=== PATIENT | male | born 1940 | race Caucasian/White ===

== ENCOUNTER 2019-01-11 00:08 | Emergency (ER) | payer OTHER ==
--- OUTSIDE RECORDS SUMMARY | 2019-01-11 00:10 | XMS REPORT ---
:1940 [facility] Address [address] [place] [address] [address] [place] [address] Care Team Providers Name Role Phone Unavailable Unavailable Unavailable Problems This patient has no known problems. Allergies, Adverse Reactions, Alerts This patient has no known allergies or adverse reactions. Medications This patient has no known medications.
[2019-01-11 01:26] LABS: Basophils % 0.2 % (0-1.3); Hematocrit 38.6 % (39.6-49.0); MPV 9.5 fL (7.6-11.3); RBC Red Blood Cell Count 4.26 M/uL (4.33-5.43)
[2019-01-11 01:28] LABS: Urine Bacteria <20 /HPF (NONE SEEN); Urine Culture Reflex Order REFLEXED; Urine RBC <5 /HPF (NONE SEEN)
[2019-01-11 01:30] LABS: Urine Blood 1+ (NEG); Urine Glucose NEGATIVE (NEG); Urine Protein NEGATIVE (NEG); Urine Specific Gravity <1.005 (1.005-1.030)
[2019-01-11 01:45] LABS: Albumin 3.4 g/dL (3.4-5.0); Bilirubin Direct 0.1 mg/dL (0-0.2); Bilirubin Total 0.5 mg/dL (0.2-1.0); Protein, Total 6.7 g/dL (6.4-8.2)
[2019-01-11] MEDS ORDERED: ONDANSETRON 4 MG/2 ML VIAL ONE (02:10)
[2019-01-11] MEDS ORDERED: MORPHINE 4 MG/ML SYR ONE (02:10)
[2019-01-11] MEDS ORDERED: NA CHLORIDE 0.9% 1,000 ML ONE (02:11)
--- NOTE | 2019-01-11 03:11 | EDPHYS ---
Physician Documentation [facility] Name: Dave Moreland Age: 79 yrs Sex: Male : 1940 Arrival Date: 01/11/2019 Time: 00:10 Bed 14 Private MD: ED Physician Pedro Levin HPI: 01/11 04:48 This 79 yrs old Unknown Male presents to ER via EMS with complaints of Abdominal Pain. tw4 04:48 The patient presents with abdominal pain in the left lower quadrant. Onset: The tw4 symptoms/episode began/occurred today. The symptoms do not radiate. Associated signs and symptoms: Pertinent positives:. 04:49 Associated signs and symptoms: Pertinent positives: dysuria. The symptoms are described tw4 as burning. Modifying factors: The symptoms are alleviated by remaining still, the symptoms are aggravated by movement, pressure. Severity of pain: At its worst the pain was moderate in the emergency department the pain is unchanged. The patient has not experienced similar symptoms in the past. Historical: - Allergies: 02:30 Codeine; ch - Home Meds: 00:25 aspirin 81 mg Oral chew 1 tab once daily [Active]; clopidogrel 75 mg oral tab 1 tab ch once daily [Active]; finasteride 5 mg oral tab 1 tab once daily [Active]; gabapentin 300 mg oral cap 1 cap 3 times per day [Active]; isosorbide mononitrate 60 mg Oral Tb24 1 tab once daily [Active]; lisinopril 20 mg Oral tab 1 tab once daily [Active]; metformin 500 mg Oral tab 1 tab 2 times per day [Active]; pantoprazole 40 mg oral TbEC 1 tab once daily [Active]; tamsulosin 0.4 mg oral cp24 1 cap once daily [Active]; - PMHx: 00:25 Diabetes - NIDDM; Hypertension; Hyperlipidemia; GERD; prostate problems; ch 02:30 Myocardial infarction; ch - PSHx: 02:30 Heart stents; Hernia repair; ch 02:32 Cholecystectomy; Tonsillectomy; L hand tendon release; neck/back sx; ch - Immunization history:: Adult Immunizations up to date. - Social history:: Smoking status: Patient/guardian denies using tobacco. - Ebola Screening: : Patient negative for fever greater than or equal to 101.5 degrees Fahrenheit, and additional compatible Ebola Virus Disease symptoms Patient denies exposure to infectious person Patient denies travel to an Ebola-affected area in the 21 days before illness onset No symptoms or risks identified at this time. ROS: 04:49 Constitutional: Negative for fever, chills, and weight loss, Eyes: Negative for injury, tw4 pain, redness, and discharge, Cardiovascular: Negative for chest pain, palpitations, and edema, Respiratory: Negative for shortness of breath, cough, wheezing, and pleuritic chest pain, Abdomen/GI: Negative for abdominal pain, nausea, vomiting, diarrhea, and constipation, Back: Negative for injury and pain. 04:49 MS/Extremity: Negative for injury and deformity, Skin: Negative for injury, rash, and discoloration. 04:49 : Positive for urinary symptoms, burning with urination, difficulty urinating. Exam: 04:49 Constitutional: This is a well developed, well nourished patient who is awake, alert, tw4 and in no acute distress. Head/Face: Normocephalic, atraumatic. Chest/axilla: Normal chest wall appearance and motion. Nontender with no deformity. No lesions are appreciated. Cardiovascular: Regular rate and rhythm with a normal S1 and S2. No gallops, murmurs, or rubs. Normal PMI, no JVD. No pulse deficits. Respiratory: Lungs have equal breath sounds bilaterally, clear to auscultation and percussion. No rales, rhonchi or wheezes noted. No increased work of breathing, no retractions or nasal flaring. Male : Normal genitalia with no discharge or lesions. Skin: Warm, dry with normal turgor. Normal color with no rashes, no lesions, and no evidence of cellulitis. MS/ Extremity: Pulses equal, no cyanosis. Neurovascular intact. Full, normal range of motion. 04:49 Abdomen/GI: Inspection: abdomen appears normal, Bowel sounds: diminished, in all quadrants, Palpation: moderate abdominal tenderness, in the left lower quadrant. Vital Signs: 00:25 BP 138 / 82; Pulse 83; Resp 22; Temp 100.1(O); Pulse Ox 100% on R/A; Weight 82.55 kg; ch Height 5 ft. 8 in. (172.72 cm); Pain 8/10; 01:20 BP 119 / 63; Pulse 69; Resp 20; Temp 98.6(O); Pulse Ox 99% on R/A; Pain 5/10; ch 02:32 BP 125 / 75; Pulse 74; Resp 16; Temp 98.8; Pulse Ox 99% on R/A; Pain 7/10; ch 03:25 Pulse 70; Resp 16; Temp 99(O); Pulse Ox 98% on R/A; Pain 2/10; ch 03:29 BP 118 / 64; ch 00:25 Body Mass Index 27.67 (82.55 kg, 172.72 cm) ch MDM: 00:42 Patient medically screened. tw4 04:49 Differential diagnosis: AAA, pancreatitis, Prostatitis, Pyelonephritis. Data reviewed: tw4 vital signs, nurses notes. Data interpreted: Pulse oximetry: Interpretation: normal. Counseling: I had a detailed discussion with the patient and/or guardian regarding: the historical points, exam findings, and any diagnostic results supporting the discharge/admit diagnosis, lab results. Medication response: morphine markedly relieved the patient's pain. Symptoms have improved. Response to treatment: the patient's symptoms have markedly improved after treatment, and as a result, I will discharge patient. Special discussion: I discussed with the patient/guardian in detail that at this point there is no indication for admission to the hospital. It is understood, however, that if the symptoms persist or worsen the patient needs to return immediately for re-evaluation. 01/11 00:39 Order name: Basic Metabolic Panel [facility] 01/11 00:39 Order name: CBC with Diff 01/11 00:39 Order name: Creatinine for Radiology 01/11 00:39 Order name: Hepatic Function tw 01/11 00:39 Order name: Lipase tw 01/11 00:39 Order name: Urine Microscopic Only [facility] 01/11 00:40 Order name: Basic Metabolic Panel [facility] 01/11 01:08 Order name: Urine Dipstick--Ancillary (enter results) [facility] 01/11 01:11 Order name: CT Abd/Pelvis - IV Contrast Only [facility] 01/11 01:31 Order name: Urine Culture [facility] 01/11 00:39 Order name: IV Saline Lock; Complete Time: 02:28 [facility] 01/11 00:39 Order name: Labs collected and sent; Complete Time: 02:28 [facility] 01/11 00:39 Order name: Urine Dipstick-Ancillary (obtain specimen); Complete Time: 02:28 tw4 Administered Medications: 01:40 Drug: NS 0.9% 1000 ml Route: IV; Rate: 125 ml/hr; Site: right forearm; ch 03:38 Follow up: IV Status: Completed infusion; IV Intake: 250ml ch 01:40 Drug: morphine 4 mg Route: IVP; Site: right forearm; 03:22 Follow up: Response: No adverse reaction; Marked relief of symptoms ch 01:40 Drug: Zofran 4 mg Route: IVP; Site: right forearm; ch 03:22 Follow up: Response: No adverse reaction; Marked relief of symptoms ch 03:15 Drug: Rocephin - (cefTRIAXone) 1 grams Route: IVPB; Infused Over: 30 mins; Site: right ch forearm; 03:48 Follow up: IV Status: Completed infusion; IV Intake: 50ml ch 03:38 Drug: LevaQUIN 500 mg Route: PO; 03:48 Follow up: Response: No adverse reaction Disposition: 01/11/19 03:09 Discharged to Home. Impression: Urinary tract infection, site not specified. - Condition is Stable. - Discharge Instructions: Urinary Tract Infection, Adult, [id number]. - Prescriptions for Levaquin 500 mg Oral Tablet - take 1 tablet by ORAL route once daily for 7 days; 7 tablet. - Medication Reconciliation Form, Thank You Letter, Antibiotic Education, Prescription Opioid Use form. - Follow up: Private Physician; When: Today; Reason: If symptoms return, Recheck today's complaints, Continuance of care. - Problem is new. - Symptoms have improved. Signatures: Dispatcher [employer] EDJennifer Roberson RN RN Dave Nagel RN RN jb4 Pedro Levin MD MD tw4 Corrections: (The following items were deleted from the chart) 04:04 03:09 01/11/2019 03:09 Discharged to Home. Impression: Urinary tract infection, site jb4 not specified. Condition is Stable. Forms are Medication Reconciliation Form, Thank You Letter, Antibiotic Education, Prescription Opioid Use. Follow up: Private Physician; When: Today; Reason: If symptoms return, Recheck today's complaints, Continuance of care. Problem is new. Symptoms have improved. tw4
--- NOTE | 2019-01-11 03:11 | ER ---
Nurse's Notes [facility] Name: Dave Moreland Age: 79 yrs Sex: Male : 1940 Arrival Date: 01/11/2019 Time: 00:10 Bed 14 Private MD: Diagnosis: Urinary tract infection, site not specified Presentation: 01/11 00:19 Presenting complaint: Patient states: lower abdominal pain for the past 2-3 days, ch states it has been getting worse. fever today, burning with urination. states he was acting out of his head. Transition of care: patient was not received from another setting of care. Onset of symptoms was January 08, 2019. Risk Assessment: Do you want to hurt yourself or someone else? Patient reports no desire to harm self or others. Initial Sepsis Screen: Does the patient meet any 2 criteria? Altered Mental Status. No. Patient's initial sepsis screen is negative. Does the patient have a suspected source of infection? Yes: Dysuria/Frequency/Urgency/UTI. Care prior to arrival: Medication(s) given: Tylenol, 650 mg, \T\ 2100. 00:19 Method Of Arrival: EMS: [facility] 00:19 Acuity: CLARK 3 ch Triage Assessment: 00:25 General: Appears in no apparent distress. comfortable, Behavior is calm, cooperative, ch appropriate for age. Pain: Complains of pain in right lower quadrant and left lower quadrant Pain currently is 8 out of 10 on a pain scale. GI: Abdomen is round non-distended, Bowel sounds present X 4 quads. Abd is soft X 4 quads Abdomen is tender to palpation in right lower quadrant and left lower quadrant. Derm: Skin is fragile, Skin is dry, Skin is pale. 02:32 Pain:. Neuro: Level of Consciousness is awake, alert, obeys commands, Oriented to person, place, time, situation. Cardiovascular: No deficits noted. Respiratory: Airway is patent Respiratory effort is even, unlabored, Breath sounds are clear bilaterally. Derm: Skin is pink, warm \T\ dry. Historical: - Allergies: 02:30 Codeine; ch - Home Meds: 00:25 aspirin 81 mg Oral chew 1 tab once daily [Active]; clopidogrel 75 mg oral tab 1 tab ch once daily [Active]; finasteride 5 mg oral tab 1 tab once daily [Active]; gabapentin 300 mg oral cap 1 cap 3 times per day [Active]; isosorbide mononitrate 60 mg Oral Tb24 1 tab once daily [Active]; lisinopril 20 mg Oral tab 1 tab once daily [Active]; metformin 500 mg Oral tab 1 tab 2 times per day [Active]; pantoprazole 40 mg oral TbEC 1 tab once daily [Active]; tamsulosin 0.4 mg oral cp24 1 cap once daily [Active]; - PMHx: 00:25 Diabetes - NIDDM; Hypertension; Hyperlipidemia; GERD; prostate problems; ch 02:30 Myocardial infarction; ch - PSHx: 02:30 Heart stents; Hernia repair; 02:32 Cholecystectomy; Tonsillectomy; L hand tendon release; neck/back sx; - Immunization history:: Adult Immunizations up to date. - Social history:: Smoking status: Patient/guardian denies using tobacco. - Ebola Screening: : Patient negative for fever greater than or equal to 101.5 degrees Fahrenheit, and additional compatible Ebola Virus Disease symptoms Patient denies exposure to infectious person Patient denies travel to an Ebola-affected area in the 21 days before illness onset No symptoms or risks identified at this time. Screenin:00 Abuse screen: Denies threats or abuse. Denies injuries from another. Nutritional screening: No deficits noted. Tuberculosis screening: No symptoms or risk factors identified. Fall Risk None identified. Assessment: 01:20 Reassessment: Patient appears in no apparent distress at this time. Patient and/or family updated on plan of care and expected duration. Pain level reassessed. Patient is alert, oriented x 3, equal unlabored respirations, skin warm/dry/pink. Patient states feeling better. 02:20 Reassessment: Patient appears in no apparent distress at this time. No changes from previously documented assessment. awaiting results. 03:24 Reassessment: Patient appears in no apparent distress at this time. Patient and/or family updated on plan of care and expected duration. Pain level reassessed. Patient is alert, oriented x 3, equal unlabored respirations, skin warm/dry/pink. Patient states feeling better. Patient states symptoms have improved. 03:28 Reassessment: awaiting pt IV antibiotics to finish prior to dispo. 03:49 Reassessment: Patient appears in no apparent distress at this time. Patient and/or ch family updated on plan of care and expected duration. Pain level reassessed. Patient is alert, oriented x 3, equal unlabored respirations, skin warm/dry/pink. Patient states feeling better. Patient states symptoms have improved. Vital Signs: 00:25 BP 138 / 82; Pulse 83; Resp 22; Temp 100.1(O); Pulse Ox 100% on R/A; Weight 82.55 kg; ch Height 5 ft. 8 in. (172.72 cm); Pain 8/10; 01:20 BP 119 / 63; Pulse 69; Resp 20; Temp 98.6(O); Pulse Ox 99% on R/A; Pain 5/10; ch 02:32 BP 125 / 75; Pulse 74; Resp 16; Temp 98.8; Pulse Ox 99% on R/A; Pain 7/10; ch 03:25 Pulse 70; Resp 16; Temp 99(O); Pulse Ox 98% on R/A; Pain 2/10; ch 03:29 BP 118 / 64; ch 00:25 Body Mass Index 27.67 (82.55 kg, 172.72 cm) ED Course: 00:10 Patient arrived in ED. ds1 00:19 Jennifer Duran, EVETTE is Primary Nurse. ch 00:22 Triage completed. ch 00:25 Arm band placed on left wrist. Patient placed in an exam room, on a stretcher, on pulse oximetry. 00:42 Pedro Levin MD is Attending Physician. tw4 01:00 Patient has correct armband on for positive identification. Placed in gown. Bed in low ch position. Call light in reach. Side rails up X2. Adult w/ patient. Pulse ox on. NIBP on. Warm blanket given. Pillow given. 01:00 No provider procedures requiring assistance completed. Maintain EMS IV. Dressing ch intact. Good blood return noted. Site clean \T\ dry. Gauge \T\ site: 20 L FA. IV is patent, is intact, with fluids infusing freely. 01:40 Radiology exam delayed due to lab results not completed at this time. (BUN/Creatinine). kw1 02:28 CT Abd/Pelvis - IV Contrast Only Sent. ch 02:36 CT Abd/Pelvis - IV Contrast Only In Process Unspecified. EDMS 03:39 Urine Culture Sent. ch 03:49 No apparent distress. Resting quietly. ch 03:49 IV discontinued, intact, bleeding controlled, No redness/swelling at site. Pressure ch dressing applied. Administered Medications: 01:40 Drug: NS 0.9% 1000 ml Route: IV; Rate: 125 ml/hr; Site: right forearm; ch 03:38 Follow up: IV Status: Completed infusion; IV Intake: 250ml ch 01:40 Drug: morphine 4 mg Route: IVP; Site: right forearm; ch 03:22 Follow up: Response: No adverse reaction; Marked relief of symptoms ch 01:40 Drug: Zofran 4 mg Route: IVP; Site: right forearm; ch 03:22 Follow up: Response: No adverse reaction; Marked relief of symptoms ch 03:15 Drug: Rocephin - (cefTRIAXone) 1 grams Route: IVPB; Infused Over: 30 mins; Site: right ch forearm; 03:48 Follow up: IV Status: Completed infusion; IV Intake: 50ml ch 03:38 Drug: LevaQUIN 500 mg Route: PO; ch 03:48 Follow up: Response: No adverse reaction ch Intake: 03:38 IV: 250ml; Total: 250ml. ch 03:48 IV: 50ml; Total: 300ml. Outcome: 03:09 Discharge ordered by tw4 03:49 Discharged to home via wheelchair, with family. ch 03:49 Condition: stable 03:49 Discharge instructions given to patient, family, friend, Instructed on discharge instructions, follow up and referral plans. no drinking with medication, medication usage, Demonstrated understanding of instructions, follow-up care, medications, Prescriptions given X 1. 04:04 Patient left the ED. jb4 Signatures: Dispatcher [employer] EDMS Jennifer Duran, RN Maribel Kaur ch ds1 Dave Nagel RN RN jb4 Viola Ayers1 Pedro Levin MD MD tw4
[2019-01-11] MEDS ORDERED: NA CHLORIDE 0.9% 100 ML IV ONE (03:26)
[2019-01-11] MEDS ORDERED: CEFTRIAXONE/SWI 1gm 1 GM/10 ML SYR ONE (03:26)
[2019-01-11] MEDS ORDERED: levoFLOXacin 500 MG TAB ONE (03:49)
--- NOTE | 2019-01-11 11:21 | RAD REPORT ---
EXAM DESCRIPTION: CT - Abdomen Pelvis W Contrast - 01/11/2019 2:52 am CLINICAL HISTORY: ABD PAIN COMPARISON: None. TECHNIQUE: CT ABDOMEN PELVIS WITH IV CONTRAST on 01/11/2019 1:11 AM CDT This exam was performed according to our departmental dose-optimization program, which includes autom ated exposure control, adjustment of the mA and/or kV according to patient size and/or use of iterati ve reconstruction technique. FINDINGS: Lower lungs are clear. Abdomen: Liver is fatty in attenuation. There is no biliary dilatation. Cholecystectomy was performed . The pancreas and spleen are normal in appearance. Adrenal glands are normal. Left kidney is mildly atrophic. Right kidney is ptotic in the right lower quadrant. Abdominal aorta is normal in course and caliber without aneurysm. There is no free air. There is no r etroperitoneal adenopathy. Pelvis: There is no bowel obstruction. Urinary bladder is unremarkable. There is no free fluid. Appen shelia is normal. Skeleton: There are no acute osseous findings. No suspicious bony lesions. IMPRESSION: No acute inflammatory process. No renal or ureteral calculi. Electronically signed by: Jorge Luis Frey MD 01/11/2019 2:44 AM CDT Due to temporary technical issues with the PACS/Fluency reporting system, reports are being signed by the in house radiologist as a courtesy to ensure prompt reporting. The interpreting radiologist is f ully responsible for the content of the report.
== END 2019-01-11 04:04 | disposition home or self-care (01) ==
LOC: ER 00:08
DX: R30.0 Dysuria (principal); N39.0 Urinary tract infection, site not specified; I10 Essential (primary) hypertension; E11.9 Type 2 diabetes mellitus without complications; E78.5 Hyperlipidemia, unspecified; Z79.82 Long term (current) use of aspirin; Z88.5 Allergy status to narcotic agent; Z95.818 Presence of other cardiac implants and grafts
CPT/HCPCS: 87088; 85025; 87086; 80048; 36415; 80076; 83690; 74177; Q9967; J0696; J7030; J2405; 81003; 81015; 96361; 96365; 96375; 99284

== ENCOUNTER 2019-01-20 18:34 | Emergency (ER) | payer OTHER ==
--- OUTSIDE RECORDS SUMMARY | 2019-01-20 18:36 | XMS REPORT | Summary of Care ---
:1940 Author Organization [facility] Address [address] [place] [address] Care Team Providers Name Role Phone Aria Loja MD Primary Care Provider Reason for Visit Reason Comments Follow-up 3 Month Encounter Details Date Type Department Care Team Description 12/27/2018 Office Visit [facility] Giselle Traore MD Coronary artery disease involving the [place] coronary artery of the [place] heart without angina pectoris (Primary Dx); Cardiology- [address] Essential hypertension; [address] [place] [address] DRIVE PAF (paroxysmal atrial fibrillation); Drive, [address] 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, without long-term current use of insulin; [place] [address] Hyperlipidemia, unspecified hyperlipidemia type [id number] Allergies Active Allergy Reactions Severity Noted Date Comments Canagliflozin Other - See comments 01/18/2017 Genital mycotic infections Codeine Rash 06/15/2018 documented as of 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 (statuses as of 01/17/2019) Medications Medication Sig Dispensed Refills Start Date End Date Status isosorbide Take 60 mg by 0 Active mononitrate 60 mg mouth. 24 hr tablet pantoprazole 40 mg Take 40 mg by 0 Active EC tablet mouth daily. aspirin 81 mg Take 1 tablet 30 tablet 1 06/25/2018 Active chewable tablet by mouth daily. clopidogrel 75 mg 300 mg (4 30 tablet 5 08/11/2018 Active tablet tabs) first day and then 75 mg (1 tab) every day after. Do not repeat 300 mg dose. lisinopril 20 mg Take 20 mg by 0 Active tablet mouth daily. finasteride 5 mg Take 1 tablet 90 tablet 3 10/10/2018 Active tabletIndications: by mouth Orchalgia daily. gabapentin 300 mg Take 300 mg 0 01/12/2019 Discontinued capsule by mouth 3 (three) times daily. metformin ER 500 mg Take 1 tablet 30 tablet 5 10/03/2018 01/02/2019 Discontinued 24 hr by mouth tabletIndications: daily with Type 2 diabetes breakfast. mellitus with hyperglycemia, without long-term current use of insulin evolocumab (REPATHA inject 140 mg 2 Syringe 3 10/03/2018 12/27/2018 Discontinued SYRINGE) 140 mg/mL under the SyrgIndications: skin every 2 Coronary artery (two) weeks. disease involving the [place] coronary artery of the [place] heart with angina pectoris tamsulosin 0.4 mg Take 1 90 capsule 3 10/10/2018 01/12/2019 Discontinued 24 hr capsule by capsuleIndications: mouth daily. Foul smelling urine, Orchalgia documented as of 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 (statuses as of 01/17/2019) Active Problems Problem Noted Date Elevated sed rate 10/05/2018 Low ferritin 09/14/2018 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, without long-term current use of insulin Bradycardia 06/15/2018 Weakness 06/15/2018 Dizziness 06/15/2018 Coronary artery disease involving the [place] coronary artery of the [place] heart 06/15 without angina pectoris Essential hypertension 06/15/2018 PAF (paroxysmal atrial fibrillation) 06/15/2018 documented as of 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 (statuses as of 01/17/2019) Social History Tobacco Use Types Packs/Day Years Used Date Never Smoker Smokeless Tobacco: Never Used Alcohol Use Drinks/Week oz/Week Comments No Sex Assigned at Date Recorded Not on file Job Start Date Occupation Industry Not on file Not on file Not on file Travel History Travel Start Travel End No recent travel history available. documented as of 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 Last Filed Vital Signs Vital Sign Reading Time Taken Comments Blood Pressure 129/72 12/27/2018 1:39 PM CDT Pulse 57 12/27/2018 1:37 PM CDT Temperature - - Respiratory Rate 19 12/27/2018 1:37 PM CDT Oxygen Saturation 98% 12/27/2018 1:37 PM CDT Inhaled Oxygen Concentration - - Weight 82.1 kg (180 lb 14.4 oz) 12/27/2018 1:37 PM CDT Height 177.8 cm (5' 10") 12/27/2018 1:37 PM CDT Body Mass Index 25.96 12/27/2018 1:37 PM CDT documented in 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 Progress Notes Giselle Traore MD - 12/27/2018 3:00 PM CDT CARDIOLOGY CLINIC NOTE 12/27/2018 Reason for Referral/Presenting Complaint: CAD PCP: Aria Loja History of Present Illness: Dave oMreland is a 78 years old male with history of paroxysmal Afib, CAD s/p PCI with 3 stents (11 and 3 years ago), and HTN. In 05/2018 he was admitted to [facility] for constant weakness especially leg muscle. Feeling dizzy and lightheaded when walking but more so when getting up. No chest pain. In [facility] EKG showed sinus bradycardia in high 40s and low 50s. Nuclear stress test showed a small ischemia. Underwent LHC and RCA PCI SILVIO in 06/2018. Amo better after PCI. Had nose bleeding after PCI. We stopped plavix due to itching. Put him on Brilinta. Could not afford it. Now back on plavix. Cannot tolerate statins. Last visit he was seen for recurrent fatigue, similar to previous angina. LHC showed no significant stenosis for PCI. Currently he is feeling better. Review of Systems: General: (-) fever, (-) chills, (-) weight change, (-) dizziness, (+) fatigue Skin: (-) rash HEENT: (-) headache, (-) change in vision Neck: (-) difficulty swallowing Heme: negative Resp: (-) cough, (-) dyspnea on exertion Cardio: (-) chest pain, (-) palpitations, (-) syncope GI: (-) vomiting, (-) diarrhea : negative Endo: (-) diabetes, (-) thyroid disease Neuro: (-) numbness, (-) tingling, (-) weakness Back: (-) pain REI: (-) muscle pain, (-) claudication Psych: (-) anxiety, (-) depression Past Medical History: Past Medical History: Diagnosis Date A-fib CAD (coronary artery disease) s/p 3 stents Diabetes off metformin History of heart artery stent HTN (hypertension) Status post coronary artery stent placement 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, without long-term current use of insulin 07/07/2018 Current Medications: Current Outpatient Medications Medication Sig Dispense Refill finasteride 5 mg tablet Take 1 tablet by mouth daily. 90 tablet 3 tamsulosin 0.4 mg 24 hr capsule Take 1 capsule by mouth daily. 90 capsule 3 lisinopril 20 mg tablet Take 20 mg by mouth daily. metformin ER 500 mg 24 hr tablet Take 1 tablet by mouth daily with breakfast. (Patient taking differently: Take 500 mg by mouth 2 (two) times daily with meals.) 30 tablet 5 clopidogrel 75 mg tablet 300 mg (4 tabs) first day and then 75 mg (1 tab) every day after. Do not repeat 300 mg dose. (Patient taking differently: Take 75 mg by mouth daily. 300 mg (4 tabs) first day and then 75 mg (1 tab) every day after. Do not repeat 300 mg dose.) 30 tablet 5 aspirin 81 mg chewable tablet Take 1 tablet by mouth daily. 30 tablet 1 gabapentin 300 mg capsule Take 300 mg by mouth 3 (three) times daily. isosorbide mononitrate 60 mg 24 hr tablet Take 60 mg by mouth. pantoprazole 40 mg EC tablet Take 40 mg by mouth daily. No current facility-administered medications for this visit. Social History: Social History Socioeconomic History Marital status: Spouse name: Not on file Number of children: Not on file Years of education: Not on file Highest education level: Not on file Occupational History Not on file Social Needs Financial resource strain: Not on file Food insecurity: Worry: Not on file Inability: Not on file Transportation needs: Medical: Not on file Non-medical: Not on file Tobacco Use Smoking status: Never Smoker Smokeless tobacco: Never Used Substance and Sexual Activity Alcohol use: No Drug use: No Sexual activity: Not on file Lifestyle Physical activity: Days per week: Not on file Minutes per session: Not on file Stress: Not on file Relationships Social connections: Talks on phone: Not on file Gets together: Not on file Attends jew service: Not on file Active member of club or organization: Not on file Attends meetings of clubs or organizations: Not on file Relationship status: Not on file Intimate partner violence: Fear of current or ex partner: Not on file Emotionally abused: Not on file Physically abused: Not on file Forced sexual activity: Not on file Other Topics Concern Not on file Social History Narrative 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; 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 [place] Family History Family History Problem Relation Age of Onset Coronary Heart Disease Mother Colon Cancer Sister Physical Examination: BP 129/72 | Pulse 57 | Resp 19 | Ht 5' 10" (1.778 m) | Wt 180 lb 14.4 oz ( 82.1 kg) | SpO2 98% | BMI 25.96 kg/m Constitutional: alert and oriented x 3 (person, place and date/time); no apparent distress ENT: normocephalic atraumatic, supple, no lymphadenopathy, no bruits, no JVD Lungs: clear to auscultation bilaterally Cardiovascular: S1, S2 normal, regular; no murmurs, rubs or gallops GI: soft; non-tender; non-distended; normoactive bowel sounds : not examined Musculoskeletal: Extremities: no clubbing, cyanosis, or edema Skin: no rashes Neuro: no focal deficits Cardiovascular testing: EKG: Sinus bradycardia, inferior infarct. Echocardiogram: Left ventricular systolic function is normal. The right ventricle is normal in size and function. There is mild mitral regurgitation. Insufficient Tricuspid regurgitation jet to estimate RVSP. Cardiac Cath: 06/2018 Coronary dominance: right Left main: Large, patent LAD: Large, proximal mild LI, mid mild LI then focal 40% (FFR baseline of 0.96, peak of 0.86 @ 140 mcg/Kg/min Adenosine IV), mid to distal tortuosity with mild LI, distal diffuse 50-60%, distal vessel wraps around the apex D1: Medium size, mild LI D2: Medium size, mild LI D3: Small LCX: Large, proximal mild LI, mid 40%, mid to distal 50-60% (FFR baseline of 0.98, peak of 0.87 @ 140 mcg/Kg/Min Adenosine IV), then mild LI OM1: Medium size, proximal 40-50%, mid to distal mil LI OM2: Small OM3: Small to medium size, ostial 50% then mild LI RCA: Large, proximal mild disease, proximal to mid stent with mild ISR then mid focal 40% (IVUS indicative of severe disease ; 2.25 balloon; 3.0 balloon; 4.0 x 24 mm Synergy Rx SILVIO; 0% residual stenosis), distal 40-50%, PDA: Large, proximal stent with 40% ISR ( IVUS indicative diffuse disease from dRCA into PDA , previously placed PDA stent was undersized; 3.0 NC ; 3.0 x 38 mm Synergy Rx from dRCA into PDA; 3.0 NC; 0% residual stenosis) , then mid 40-50%, mid stent with 50% ISR (FFR baseline of 0.96, peak of 0.77 @ 140 mcg/Kg/min Adenosine IV; pull back indicative of diffuse disease across PDA and across mid RCA; IVUS indicative of severe disease in PDA; 2.25 balloon; 2.25 x 28 mm Synergy Rx SILVIO; 3.0 NC; 0% residual stenosis), distal mild LI PLB: Large, proximal to mid mild LI, mid to distal diffuse 40-50% , distal mild LI LVEDP: 12 mmHg Impression: 1. Moderate mLAD disease. Negative FFR 2. Moderate m-dLCx disease. Negative FFR 3. Severe mRCA disease by FFR and IVUS. Successful PCI with 4.0 x 24 mm Synergy Rx SILVIO 4. Severe p-d disease by FFR and IVUS. Successful PCI with 3.0 x 38 mm and 2.25 x 28 mm Synergy Rx SILVIO [facility] 11/2018 LM:Patent Ramus proximal 50% stenosis LAD:Mid 40 % stenosis, distal diffuse plaquing LCX;Mid 50%, OM2 proximal 80% small vessel RCA:Dominant, proximal in-stent 50% stenosis, RPDA stent patent LVEDP;19 mm Hg FFR of proximal RCA Baseline 0.97 and peak 0.87 pullback no drift Assessment/Plan: ICD-10-CM ICD-9-CM 1. Coronary artery disease involving the [place] coronary artery of the [place] heart without angina pectoris I25.10 414.01 2. Essential hypertension I10 401.9 3. PAF (paroxysmal atrial fibrillation) I48.0 427.31 4. 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, without long-term current use of insulin E11.8 250.90 5. Hyperlipidemia, unspecified hyperlipidemia type E78.5 272.4 CAD--s/p multiple PCI with most recent one in 06/2018. Repeat LHC showed no significant stenosis. Will resume cardiac rehab. Cannot tolerate statins. Cannot afford zetia/repatha. Not on BB due to bradycardia. Continue ASA and plavix. PAfib--The burden is low. Remains in normal sinus rhythm. Due to nose bleed and DAPT, will hold Xarelto. HTN--Well controlled with lisinopril. Patient was counseled for lifestyle modifications including: diet and exercise. RTC 6 months Addendum---12/29/2018---Moderate cardiac risk. OK to hold ASA/plavix if needed. Giselle Traore MD, FAC, RAFAELA Railroad Dispatcher, Division of Cardiology [facility] documented in 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 Plan of Treatment Date Type Specialty Care Team Description 01/18/2019 Tool Room Attendant Visit Cardiac Rehabilitation Giselle Traore MD [address] [place] [address] [phone] Rehab, [facility] Cardiac 01/20/2019 Tool Room Attendant Visit Cardiac Rehabilitation Giselle Traore MD [address] [place] [address] Rehab, [facility] Cardiac 01/23/2019 Tool Room Attendant Visit Cardiac Rehabilitation Giselle Traore MD [address] [place] [address] 229[address] Rehab, [facility] Cardiac 01/25/2019 Tool Room Attendant Visit Cardiac Rehabilitation Giselle Traore MD [address] [place] [address] 78[address] Rehab, [facility] Cardiac 01/27/2019 Tool Room Attendant Visit Cardiac Rehabilitation Giselle Traore MD [address] [place] [address] 6[address] Rehab, [facility] Cardiac 01/30/2019 Tool Room Attendant Visit Cardiac Rehabilitation Giselle Traore MD [address] [place] [address] 92091 Rehab, [facility] Cardiac 02/01/2019 Tool Room Attendant Visit Cardiac Rehabilitation Giselle Traore MD [address] [place] [address] [place] [address] [phone] Rehab, [facility] Cardiac 02/03/2019 Tool Room Attendant Visit Cardiac Rehabilitation Giselle Traore MD [address] [place] [address] [place] [address] [phone] Rehab, [facility] Cardiac 02/06/2019 Tool Room Attendant Visit Cardiac Rehabilitation Giselle Traore MD [address] [place] [address] [place] [address] [phone] Rehab, [facility] Cardiac 02/08/2019 Tool Room Attendant Visit Cardiac Rehabilitation Giselle Traore MD [address] [place] [address] [phone] Rehab, [facility] Cardiac 02/10/2019 Tool Room Attendant Visit Cardiac Rehabilitation Giselle Traore MD [address] [place] [address] 759[address] [phone] Rehab, [facility] Cardiac 02/13/2019 Tool Room Attendant Visit Cardiac Rehabilitation Giselle Traore MD [address] [place] [address] [phone] Rehab, [facility] Cardiac 02/13/2019 Office Visit Urology Lukas Daley [id number] [place], [place] [id number] 02/15/2019 Tool Room Attendant Visit Cardiac Rehabilitation Giselle Traore MD [address] [place] [address] [place] [address] [phone] Rehab, [facility] Cardiac 02/17/2019 Tool Room Attendant Visit Cardiac Rehabilitation Giselle Traore MD [address] [place] [address] [phone] Rehab, [facility] Cardiac 02/22/2019 Tool Room Attendant Visit Cardiac Rehabilitation Giselle Traore MD [address] [place] [address] [place] [address] 8[address] [phone] Rehab, [facility] Cardiac 02/24/2019 Tool Room Attendant Visit Cardiac Rehabilitation Giselle Traore MD [address] [place] [address] 99686 Rehab, [facility] Cardiac 02/27/2019 Tool Room Attendant Visit Cardiac Rehabilitation Giselle Traore MD [address] [place] [address] 34[address] Rehab, [facility] Cardiac 03/01/2019 Tool Room Attendant Visit Cardiac Rehabilitation Giselle Traore MD [address] [place] [address] 38[address] Rehab, [facility] Cardiac 03/03/2019 Tool Room Attendant Visit Cardiac Rehabilitation Giselle Traore MD [address] [place] [address] 925[address] [phone] Rehab, [facility] Cardiac 03/06/2019 Tool Room Attendant Visit Cardiac Rehabilitation Giselle Traore MD [address] [place] [address] [phone] Rehab, [facility] Cardiac 03/08/2019 Tool Room Attendant Visit Cardiac Rehabilitation Giselle Traore MD [address] [place] [address] 36418 Rehab, [facility] Cardiac 03/10/2019 Tool Room Attendant Visit Cardiac Rehabilitation Giselle Traore MD [address] [place] [address] 06687 Rehab, [facility] Cardiac 03/13/2019 Tool Room Attendant Visit Cardiac Rehabilitation Giselle Traore MD [address] [place] [address] 737[address] [phone] Rehab, [facility] Cardiac 03/15/2019 Tool Room Attendant Visit Cardiac Rehabilitation Giselle Traore MD [address] [facility] [address] [place], [place] [phone] Rehab, [facility] Cardiac 03/17/2019 Tool Room Attendant Visit Cardiac Rehabilitation Giselle Traore MD [address] [facility] [address] [place], [place] [address] Rehab, [facility] Cardiac 03/20/2019 Tool Room Attendant Visit Cardiac Rehabilitation Giselle Traore MD [address] [facility] [address] [place], [place] [address] Rehab, [facility] Cardiac 04/11/2019 Office Visit Family Medicine Aria Loja MD [address] [place] [address] [phone] 07/03/2019 Office Visit Cardiology Giselle Traore MD [address] [facility] [address] [place], [place] [phone] Health Maintenance Due Date Last Done Comments EYE EXAM 01/07/1950 FOOT EXAM 01/07/1958 DTaP,Tdap,and Td Vaccines (1 - 01/07/1959 Tdap) Zoster Recombinant Vaccine 01/07/1990 (SHINGRIX) (1 of 2) Medicare Wellness Visit 01/07/2005 PNEUMOCOCCAL VACCINES 65+ (1 of 2 01/07/2005 - PCV13) INFLUENZA VACCINE 02/19/2019 03/01/2018, 03/21/2017 HgA1C 06/08/2019 12/07/2018, 09/05/2018, 06/15/2018 LDL-C 12/08/2019 12/07/2018, 06/15/2018 URINE MICROALBUMIN 12/08/2019 12/07/2018 CREATININE (SERUM) 01/10/2020 01/09/2019, 12/07/2018, 11/22/2018, Additional history exists documented as of 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 Results Not on filedocumented in 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 Visit Diagnoses Diagnosis Coronary artery disease involving the [place] coronary artery of [place] heart without angina pectoris - Primary Essential hypertension Unspecified essential hypertension PAF (paroxysmal atrial fibrillation) Atrial fibrillation 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, without long-term current use of insulin Hyperlipidemia, unspecified hyperlipidemia type documented in 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 Insurance Payer Benefit Plan Subscriber ID Effective Phone Address Type / Group Dates MEDICARE MEDICARE PART xxxxxxxxxxx 2004-[place] [id number] [place] [id number] [employer] [id number] [place] [address] documented as of 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
--- OUTSIDE RECORDS SUMMARY | 2019-01-20 18:36 | XMS REPORT ---
:1940 Author Organization [facility] Address [address] [place] [address] [address] [place] [address] Care Team Providers Name Role Phone Unavailable Unavailable Unavailable Problems This patient has no known problems. Allergies, Adverse Reactions, Alerts This patient has no known allergies or adverse reactions. Medications This patient has no known medications.
--- OUTSIDE RECORDS SUMMARY | 2019-01-20 18:36 | XMS REPORT | Summary of Care ---
:1940 Author Organization [facility] - [facility] Address [address] [place] [id number] Care Team Providers Name Role Phone Aria Loja MD Primary Care Provider Reason for Visit Reason Comments Hospital F/U Encounter Details Date Type Department Care Team Description 01/12/2019 Office Visit [facility] Family Aria Loja Acute cystitis without hematuria (Primary Dx); Medicine - Otis Addison MD History of hallucinations; [address] [facility] [address] [facility] [address] Dizziness; [place], [place] Hospital discharge follow-up [id number] Allergies Active Allergy Reactions Severity Noted Date Comments Canagliflozin Other - See comments 01/18/2017 Genital mycotic infections Codeine Rash 06/15/2018 documented as of 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 (statuses as of 01/12/2019) Medications Medication Sig Dispensed Refills Start Date [...] 10/10/2018 Active tabletIndications: by mouth Orchalgia daily. metformin ER 500 mg Take 1 tablet 60 tablet 5 01/03/2019 Active 24 hr by mouth 2 tabletIndications: (two) times Type 2 diabetes daily with mellitus with meals. hyperglycemia, without long-term current use of insulin gabapentin 100 mg Take 1 0 01/12/2019 Active capsuleIndications: capsule by Dizziness mouth 2 (two) times daily. tamsulosin 0.4 mg Take 1 90 capsule 3 01/12/2019 Active 24 hr capsule by capsuleIndications: mouth at Dizziness bedtime. gabapentin 300 mg Take 300 mg 0 01/12/2019 Discontinued capsule by mouth 3 (three) times daily. tamsulosin 0.4 mg Take 1 90 capsule 3 10/10/2018 01/12/2019 Discontinued 24 hr capsule by capsuleIndications: mouth daily. Foul smelling urine, Orchalgia documented as of 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 (statuses as of 01/12/2019) Active Problems Problem Noted Date Elevated sed rate 10/05/2018 Low ferritin 09/14/2018 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, without long-term current use of insulin Bradycardia 06/15/2018 Weakness 06/15/2018 Dizziness 06/15/2018 Coronary artery disease involving shinnecock coronary artery of shinnecock heart 06/15 without angina pectoris Essential hypertension 06/15/2018 PAF (paroxysmal atrial fibrillation) 06/15/2018 documented as of 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 (statuses as of 01/12/2019) Social History Tobacco Use Types Packs/Day Years [...] Sign Reading Time Taken Comments Blood Pressure 108/60 01/12/2019 11:11 AM CDT Pulse 65 01/12/2019 11:11 AM CDT Temperature 36.3 C (97.4 F) 01/12/2019 11:11 AM CDT Respiratory Rate - - Oxygen Saturation - - Inhaled Oxygen Concentration - - Weight 84.4 kg (186 lb) 01/12/2019 11:11 AM CDT Height 175.3 cm (5' 9") 01/12/2019 11:11 AM CDT Body Mass Index 27.47 01/12/2019 11:11 AM CDT documented in 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 Patient Instructions Patient InstructionsAria Loja MD - 01/12/2019 11:00 AM CDT Urinary Tract Infections in Men Urinary tract infections (UTIs) are most often caused by bacteria that invade the urinary tract. Thebacteria may come from outside the body. Or they may travel from the skin outside ofthe rectum into the urethra. Pain in or around the urinary tract is a common symptom for most UTIs. But the only way to know for sure if you have a UTI is to have a urinalysis and urine culture. Types of UTIs Cystitis. This is abladder infection. It is often linked to a blockage from an enlarged prostate. You may have an urgent or frequent need to urinate, and bloody urine. Treatment includes antibiotics and medicine to relax or shrink the prostate. Sometimes you will need surgery. Urethritis. This is an infection of the urethra. You may have a discharge from the urethra or burning when you urinate. You may also have pain in the urethra or penis. It is treated with antibiotics. Prostatitis. This is an inflammation or infection of the prostate. You may have an urgent or frequent need to urinate, fever, or burning when you urinate. Or you may have a tender prostate, or a vague feeling of pressure. Prostatitis is treated with a range of medicines, depending on the cause. Pyelonephritis. This is a kidney infection. If not treated, it can be serious and damage your kidneys. In severe cases you may need to stay in the hospital. You may have a fever and lower back pain. Medicines to treat a UTI Most UTIs are treated with antibiotics. These kill the bacteria. The length of time you need to takethem depends on the type of infection. Take antibiotics exactly as directed until all of the medicine is gone. If you don't, the infection may not go away and may become harder to treat. For certain types of UTIs, you may be given other medicine to help treat your symptoms. Lifestyle changes to treat and prevent UTIs The lifestyle changes below will help get rid of your current infection. They may also help prevent future UTIs. Drink plenty of fluids such as water, juice, or other caffeine-free drinks. This helps flush bacteria out of your system. Empty your bladder when you feel the urge to urinate and before going to sleep. Urine that stays in your bladder promotes infection. Use condoms during sex. These help prevent UTIs caused by sexually transmitted bacteria. Keep follow-up appointments with your healthcare provider. He or she can may do tests to make sure the infection has cleared. If needed, more treatment can be started. Other treatments to prevent UTIs Most UTIs respond to medicine. But sometimes you will need a procedure or surgery. This can treat anenlarged prostate, or remove a kidney stone or other blockage. Surgery may also treat problems caused by scarring or long-term infections. Date Last Reviewed: 06/21/201619991024-6310 [employer]. [address] [place] [address], [place] [address]. All rights reserved. This information is not intended as a substitute for professional medical care. Always follow your healthcare professional's instructions. documented in 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 Progress Notes Aria Loja MD - 01/12/2019 11:00 AM CDT Transitional Care Management: Agqz-er-Xxob Visit 01/12/2019 Dave Moreland is a 79 year old male that was admitted on 01/09/19 to [facility] ICU. He was discharged on 01/10/19 with a discharge disposition of HR- Routine Discharge. Dave is here today for a hospital follow- up/transitional care management visit. He is accompanied by hiswife. TCM Outreach Completed: 01/11/19 CC: Hospital F/U HPI Dave Moreland is a 79 year old male who presents for ER and hospital follow-up. Hospital [id number] The patient was admitted to [facility] 01/09/19-01/10/19 after presenting to the ER with complaint of dizziness. The hospital course excerpt from the hospitalist' s discharge summary is noted below: " HOSPITAL COURSE: 79 year-old with CAD and HTN admitted with chronic dizziness. Pt followed by cardiology as OP for same. ACS ruled out by enzymes EKG. Pt seen by cardiology and stable for OP f/u and d/frida home " Right after his hospitalization, on the night of his discharge he developed acute fever to 102, confusion, and hallucinations and had to be evaluated at the ER (see below). ER [id number] The patient presented to [facility] ER via EMS on 01/11/19 with complaint of confusion, hallucinations and fever. The patient underwent the following evaluations: Labs. The patient was diagnosed with UTI. Treatments in the ER included: IV antibiotics, IVF, and he was observed for 23hrs. At discharge the patient was instructed to take the following medications: Levaquin x 7 days . The patient was told to follow-up with PCP. Since the ER visit the patient has experienced the following: Resolution of his confusion, hallucinations, and fever. He denies urinary sxs. He is taking the Levaquin as prescribed. He is feeling much better and finds his dizziness has even resolved. He has been holding gabapentin for his chronic back pain due to he was told by the doctor at [facility] that it may account for his dizziness. He also asks if his tamsulosin can cause dizziness because someone told himthat before. Allergies Dave is allergic to canagliflozin and codeine. Medications Outpatient Medications Prior to Visit Medication Sig Dispense Refill metformin ER 500 mg 24 hr tablet Take 1 tablet by mouth 2 (two) times daily with meals. 60 tablet 5 finasteride 5 mg tablet Take 1 tablet by mouth daily. 90 tablet 3 tamsulosin 0.4 mg 24 hr capsule Take 1 capsule by mouth daily. 90 capsule 3 lisinopril 20 mg tablet Take 20 mg by mouth daily. clopidogrel 75 mg tablet 300 mg (4 [...] Take 40 mg by mouth daily. No facility-administered medications prior to visit. Histories Past Medical History: Diagnosis Date A-fib CAD (coronary artery disease) s/p 3 stents Diabetes off metformin History of heart artery stent HTN (hypertension) Status post coronary artery stent placement 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, without long-term current use of insulin 07/07/2018 Past Surgical History: Procedure Laterality Date BACK SURGERY CHOLECYSTECTOMY EYE SURGERY cataract surgery b/l HAND/FINGER SURGERY UNLISTED HERNIA REPAIR STENT PLACEMENT (SHX) Social History Socioeconomic History Marital status: Spouse [...] file Gets together: Not on file Attends presybeterian service: Not on file Active member of [...] on file Social History Narrative 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 HENT: Negative. Eyes: Negative. Respiratory: Negative. Cardiovascular: Negative. Gastrointestinal: Negative. Genitourinary: Negative. Musculoskeletal: Positive for back pain and gait problem. Skin: Negative. Neurological: Negative for dizziness and weakness. Psychiatric/Behavioral: Negative. Endocrine: Endocrine negative VS: BP 108/60 (BP Location: Left arm, Patient Position: Sitting, BP CUFF SIZE: Adult Medium) | Pulse 65 | Temp 36.3 C (97.4 F) (Tympanic) | Ht 5' 9" ( 1.753 m) | Wt 186 lb (84.4 kg) | BMI 27.47 kg/m Physical Exam Constitutional: He is oriented to person, place, and time. He appears well- developed and well-nourished. No distress. HENT: Head: Normocephalic. Mouth/Throat: Mucous membranes are normal. Eyes: Pupils are equal, round, and reactive to light. Conjunctivae are normal. No scleral icterus. Neck: Neck supple. No thyromegaly present. Cardiovascular: Normal rate, regular rhythm and intact distal pulses. Exam reveals no gallop and no friction rub. Murmur heard. Pulmonary/Chest: Effort normal and breath sounds normal. He has no wheezes. He has no rales. Abdominal: Soft. Bowel sounds are normal. He exhibits no distension and no mass. There is no tenderness. Musculoskeletal: He exhibits no edema. Lymphadenopathy: He has no cervical adenopathy. Neurological: He is alert and oriented to person, place, and time. Skin: Skin is warm and dry. No rash noted. No pallor. Psychiatric: He has a normal mood and affect. His behavior is normal. Nursing note and vitals reviewed. Labs Admission on 01/09/2019, Discharged on 01/10/2019 Component Date Value NA 01/09/2019 140 K 01/09/2019 4.6 CL 01/09/2019 105 CO2 TOTAL 01/09/2019 24 AGAP 01/09/2019 11 BUN 01/09/2019 15 GLUCOSE 01/09/2019 117* CREATININE 01/09/2019 0.75 TOTAL BILI 01/09/2019 0.3 CALCIUM 01/09/2019 10.2 T PROTEIN 01/09/2019 7.4 ALBUMIN 01/09/2019 4.2 ALK PHOS 01/09/2019 70 ALT(SGPT) 01/09/2019 17 AST(SGOT) 01/09/2019 27 eGFR Calculation (Non-Af* 01/09/2019 100.5 eGFR Calculation (Alona* 01/09/2019 121.8 APPEARANCE 01/09/2019 Clear COLOR 01/09/2019 Yellow PH 01/09/2019 6.0 SP GRAVITY 01/09/2019 <=1.005 GLU U QUAL 01/09/2019 Negative BLOOD 01/09/2019 Negative KETONES 01/09/2019 Negative PROTEIN 01/09/2019 Negative UROBILIN 01/09/2019 0.2 mg/dL BILIRUBIN 01/09/2019 Negative NITRITE 01/09/2019 Negative LEUK MY 01/09/2019 Negative RBC/HPF 01/09/2019 0 WBC/HPF 01/09/2019 3 BACTERIA 01/09/2019 Negative SQ EPITH 01/09/2019 2 TROPONIN I 01/09/2019 0.002 NT-proBNP 01/09/2019 216 LIPASE 01/09/2019 111 WBC 01/09/2019 9.38 RBC 01/09/2019 4.37 HGB 01/09/2019 13.2 HCT 01/09/2019 39.8 MCV 01/09/2019 91.1 MCH 01/09/2019 30.2 MCHC 01/09/2019 33.2 RDW-SD 01/09/2019 49.2 RDW-CV 01/09/2019 14.6 PLT 01/09/2019 252 MPV 01/09/2019 10.4 NRBC/100 WBC 01/09/2019 0.0 NRBC x10^3 01/09/2019 <0.01 GRAN MAT (NEUT) % 01/09/2019 63.9 IMM GRAN % 01/09/2019 0.40 LYMPH % 01/09/2019 20.6 MONO % 01/09/2019 11.5 EOS % 01/09/2019 3.1 BASO % 01/09/2019 0.5 GRAN MAT x10^3(ANC) 01/09/2019 5.99 IMM GRAN x10^3 01/09/2019 0.04 LYMPH x10^3 01/09/2019 1.93 MONO x10^3 01/09/2019 1.08* EOS x10^3 01/09/2019 0.29 BASO x10^3 01/09/2019 0.05 POCT GLU 01/09/2019 199* TROPONIN I 01/09/2019 0.002 POCT GLU 01/09/2019 141* TROPONIN I 01/10/2019 0.001 TROPONIN I 01/10/2019 0.002 POCT GLU 01/10/2019 154* POCT GLU 01/10/2019 141* Assessment/Plan Dave was seen today for hospital f/u. Will request the patient's outside medical records for my review. The available medical records in [facility] were reviewed. Diagnoses and all orders for this visit: Hospital discharge follow-up, Dizziness His condition is greatly improved. I agree gabapentin could have been contributing to his dizziness. He has some 100mg caps at home and is agreeable to trying this dose for his back pain. He also will move his tamsulosin to QHS to decrease the risk of dizziness due to orthostasis. He will let me know if his dizziness rebounds. Acute cystitis without hematuria, History of hallucinations, History of confusion His condition seems greatly improved. His hallucinations and confusion were likely due to urosepsisand these sxs have resolved. Continue Levaquin to complete the full 7 day course. The patient and his spouse are sure a urine culture was done and they were told they would be called if an antibioticchange is needed, awaiting records. He is followed by [facility] Urology and was encouraged to f/u as scheduled. Plan of care, desired health behaviors, goals, Ddx, and any prescribed medications were discussed with the patient. This visit did not involve counseling and coordination that comprised more than 50% of the visit time. Education resources and self-management tools were provided and reviewed with the AVS. Patient/guardian/family verbalized understanding and agrees to the plan of care. Barriers tocare: None. Ability to manage care: Good. Advanced care planning (living will) information was not given/offered to the patient to review for discussion at a future visit. If applicable, the [facility] database was accessed to review any controlled substance prescription claims data. If the patient is taking prescribed medications, the [employer] prescription claims data in [place] was reviewed to assess patient compliance with the medication treatment plan. Follow-up: Return in about 3 months (around 04/14/2019) for diabetic check ( fasting). Follow-up sooner if any problems or concerns. I certify that the following are true: Discharge records, pending tests and lab results reviewed: Yes Medications reviewed and reconciled: Yes Patient education provided to: patient and spouse Follow-up arranged with other healthcare providers needed in patient's care: Yes Established applicable referrals: N/A Complexity of medical decision making is: Medium Linked Episodes Type: Episode: Status: Noted: Resolved: Last update: Updated by: TRANSITION OF CARE tcm Active 01/10/2019 01/11/2019 12:59 PM Charito Spicer RN Comments:01/10/2019 documented in 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 Plan of Treatment Date Type Specialty Care Team Description 02/13/2019 Office Visit Urology ThuyPaolo hayso [address] [facility] [id number] [place], [place] [id number] 04/11/2019 Office Visit Family Medicine Aria Loja MD [address] [place] [address] [place] [phone] 07/03/2019 Office Visit Cardiology Giselle Traore MD [address] [facility] [address] [place], [place] [address] Health Maintenance Due Date Last Done Comments [...] filedocumented in 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 Visit Diagnoses Diagnosis Acute cystitis without hematuria - Primary Acute cystitis History of hallucinations Dizziness Dizziness and giddiness Hospital discharge follow-up Other follow-up examination documented in 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 Insurance Payer Benefit Plan Subscriber ID Effective Phone Address Type / Group Dates MEDICARE MEDICARE PART xxxxxxxxxxx 2004-Walter [phone] Medicare [address] & [address] [place] [id number] [place] [id number] [employer] [id number] 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
--- OUTSIDE RECORDS SUMMARY | 2019-01-20 18:36 | XMS REPORT | Summary of Care ---
:1940 Author Organization [facility] - [facility] Address [address] [place] [id number] Care Team Providers Name Role Phone Aria Loja MD Primary Care Provider Reason for Visit Reason Comments Hospital F/U Encounter Details Date Type Department Care Team Description 01/12/2019 Office Visit [facility] Family Aria Loja Acute cystitis without hematuria (Primary Dx); Medicine - Otis Addison MD History of hallucinations; [address] [facility] [address] [facility] [address] Dizziness; [place], [place] Hospital discharge follow-up [phone] Allergies [...] 06/15/2018 Dizziness 06/15/2018 Coronary artery disease involving rincon coronary artery of rincon heart 06/15 without angina pectoris Essential hypertension [...] scarring or long-term infections. Date Last Reviewed: 06/21/201619995026-4843 [employer]. [address] [place] [address], [place] [address]. All rights reserved. This information is not intended as a substitute for professional medical care. Always follow your healthcare professional's instructions. documented in 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 Progress Notes Aria Loja MD - 01/12/2019 11:00 AM CDT Transitional Care Management: Koya-ip-Ztlu Visit 01/12/2019 Dave Moreland is a 79 year old male that was admitted on 01/09/19 to [facility] ICU. He was discharged on 01/10/19 with a discharge disposition of HR- Routine Discharge. Dave is here today for a hospital follow- up/transitional care management visit. He is accompanied by hiswife. TCM Outreach Completed: 01/11/19 CC: Hospital F/U HPI Dave Moreland is a 79 year old male who presents for ER and hospital follow-up. Hospital [id number] The patient was admitted to [facility] 01/09/19-01/10/19 after presenting to the ER [...] evaluated at the ER (see below). ER [id number] The patient presented to [facility] ER via EMS on 01/11/19 with complaint [...] he was told by the doctor at [facility] that it may account for his dizziness. 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 The available medical records in [facility] were reviewed. Diagnoses and all orders for [...] needed, awaiting records. He is followed by [facility] Urology and was encouraged to f/u as [...] at a future visit. If applicable, the [facility] database was accessed to review any controlled substance prescription claims data. If the patient is taking prescribed medications, the [employer] prescription claims data in [place] [address] was reviewed to assess patient compliance with [...] Office Visit Urology ThuyPaolo hayso [address] [facility] [id number] [place], [place] [address] 04/11/2019 Office Visit Family Medicine Aria Loja MD [address] [place] [address] [place] [phone] 07/03/2019 Office Visit Cardiology Giselle Traore MD [address] [facility] [address] [place], [place] [id number] Health Maintenance Due Date Last Done Comments [...] BOX Medicare A & B nt 82 [id number] [place] [id number] [employer] [id number] 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
--- OUTSIDE RECORDS SUMMARY | 2019-01-20 18:37 | XMS REPORT | Summary of Care ---
:1940 Author Organization [facility] - [facility] Address [address] [place] [address] Care Team Providers Name Role Phone Aria Loja MD Primary Care Provider Reason for Visit Reason Comments TEST RESULTS Event Monitor Encounter Details Date Type Department Care Team Description 01/18/2019 Telephone [facility] Giselle Traore MD TEST RESULTS (Event Cardiology- [address] Monitor ) [address], [address] [place] [phone] Allergies Active Allergy Reactions Severity Noted Date Comments Canagliflozin Other - See comments 01/18/2017 Genital mycotic infections Codeine Rash 06/15/2018 documented as of 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 (statuses as of 01/18/2019) Medications Medication Sig Dispensed Refills Start Date End Date Status isosorbide mononitrate Take 60 mg by 0 Active 60 mg 24 hr tablet mouth. pantoprazole 40 mg EC Take 40 mg by 0 Active tablet mouth daily. aspirin 81 mg chewable Take 1 tablet by 30 tablet 1 06/25/2018 Active tablet mouth daily. clopidogrel 75 mg 300 mg (4 tabs) 30 tablet 5 08/11/2018 Active tablet first day and then 75 mg (1 tab) every day after. Do not repeat 300 mg dose. lisinopril 20 mg Take 20 mg by 0 Active tablet mouth daily. finasteride 5 mg Take 1 tablet by 90 tablet 3 10/10/2018 Active tabletIndications: mouth daily. Orchalgia metformin ER 500 mg 24 Take 1 tablet by 60 tablet 5 01/03/2019 Active hr tabletIndications: mouth 2 (two) Type 2 diabetes times daily with mellitus with meals. hyperglycemia, without long-term current use of insulin gabapentin 100 mg Take 1 capsule by 0 01/12/2019 Active capsuleIndications: mouth 2 (two) Dizziness times daily. tamsulosin 0.4 mg 24 Take 1 capsule by 90 capsule 3 01/12/2019 Active hr capsuleIndications: mouth at bedtime. Dizziness documented as of 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 (statuses as of 01/18/2019) Active Problems Problem Noted Date Elevated sed rate 10/05/2018 Low ferritin 09/14/2018 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, without long-term current use of insulin Bradycardia 06/15/2018 Weakness 06/15/2018 Dizziness 06/15/2018 Coronary artery disease involving jena coronary artery of jena heart 06/15 without angina pectoris Essential hypertension 06/15/2018 PAF (paroxysmal atrial fibrillation) 06/15/2018 documented as of 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 (statuses as of 01/18/2019) Social History Tobacco Use Types Packs/Day Years Used Date Never Smoker Smokeless Tobacco: Never Used Alcohol Use Drinks/Week oz/Week Comments No Sex Assigned at Date Recorded Not on file Job Start Date Occupation Industry Not on file Not on file Not on file Travel History Travel Start Travel End No recent travel history available. documented as of 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 Last Filed Vital Signs Not on filedocumented in 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 Plan of Treatment Date Type Specialty Care Team Description 01/18/2019 Network Lead Visit Cardiac Rehabilitation Giselle Traore MD [address] [address] [phone] Rehab, [facility] Cardiac 01/20/2019 Network Lead Visit Cardiac Rehabilitation Giselle Traore MD [address] [place] [address] [phone] Re[facility], [facility] 01/23/2019 Network Lead Visit Cardiac Rehabilitation Giselle Traore MD [address] [place] [address] [phone] Rehab, [facility] 01/25/2019 Network Lead Visit Cardiac Rehabilitation Giselle Traore MD [address] [place] [address] [phone] Rehab, [facility] Cardiac 01/27/2019 Network Lead Visit Cardiac Rehabilitation Giselle Traore MD [address] [place] [address] 36824 Rehab, [facility] Cardiac 01/30/2019 Network Lead Visit Cardiac Rehabilitation Giselle Traore MD [address] [place] [address] [phone] Rehab, [facility] Cardiac 02/01/2019 Network Lead Visit Cardiac Rehabilitation Giselle Traore MD [address] [place] [address]64 [phone] Rehab, [facility] Cardiac 02/03/2019 Network Lead Visit Cardiac Rehabilitation Giselle Traore MD [address] [place] [address] 65305 Rehab, [facility] Cardiac 02/06/2019 Network Lead Visit Cardiac Rehabilitation Giselle Traore MD [address] [place] [address] 80967 Rehab, [facility] Card[facility] 02/08/2019 Network Lead Visit Cardiac Rehabilitation Giselle Traore MD [address] [place] [address] 57830 [phone] Rehab, [facility] Cardiac 02/10/2019 Network Lead Visit Cardiac Rehabilitation Giselle Traore MD [address] [place] [address] 68038 Rehab, [facility] Cardiac 02/13/2019 Network Lead Visit Cardiac Rehabilitation Giselle Traore MD [address] [place] [address] 91453 Rehab, [facility] Cardiac 02/13/2019 Office Visit Urology Lukas Daley [address] [facility] [id number] [place] [address] [phone] 02/15/2019 Network Lead Visit Cardiac Rehabilitation Giselle Traore MD [address] [place] [address] 85822 Rehab, [facility] 02/17/2019 Network Lead Visit Cardiac Rehabilitation Giselle Traore MD [address] [place] [address] 43211 Rehab, [facility] 02/22/2019 Network Lead Visit Cardiac Rehabilitation Giselle Traore MD [address] [place] [address] 12200 Rehab, [facility] 02/24/2019 Network Lead Visit Cardiac Rehabilitation Giselle Traore MD [address] [place] [address] 77134 Rehab, [facility] 02/27/2019 Network Lead Visit Cardiac Rehabilitation Giselle Traore MD [address] [place] [address] 14696 Rehab, [facility] 03/01/2019 Network Lead Visit Cardiac Rehabilitation Giselle Traore MD [address] [place] [address] 07091 Rehab, [facility] 03/03/2019 Network Lead Visit Cardiac Rehabilitation Giselle Traore MD [address] [place] [address] 46924 Rehab, [facility] 03/06/2019 Network Lead Visit Cardiac Rehabilitation Giselle Traore MD [address] [place] [address] 17787 Rehab, [facility] 03/08/2019 Network Lead Visit Cardiac Rehabilitation Giselle Traore MD [address] [place] [address] 81905 [phone] Rehab, [facility] 03/10/2019 Network Lead Visit Cardiac Rehabilitation Giselle Traore MD [address] [place] [address] 70366 [phone] Rehab, [facility] Card[facility] 03/13/2019 Network Lead Visit Cardiac Rehabilitation Giselle Traore MD [address] [place] [address] [phone] Rehab, [facility] 03/15/2019 Network Lead Visit Cardiac Rehabilitation Giselle Traore MD [address] [place] [address] [phone] Rehab, [facility] 03/17/2019 Network Lead Visit Cardiac Rehabilitation Giselle Traore MD [address] [place] [address] [phone] Rehab, [facility] 03/20/2019 Network Lead Visit Cardiac Rehabilitation Giselle Traore MD [address] [place] [address] 60974 [phone] Rehab, [facility] Cardiac 04/11/2019 Office Visit Family Medicine Aria Loja MD [address] [place] [phone] 07/03/2019 Office Visit Cardiology Giselle Traore MD [address] [place] [address] [phone] Health Maintenance Due Date Last Done Comments [...] Results Not on filedocumented in 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 Insurance Payer Benefit Plan Subscriber ID Effective Phone Address Type / Group Dates MEDICARE MEDICARE PART xxxxxxxxxxx 2004-[place]ter [phone] Medicare A & B nt 82 [id number] [place] [id number] NEW ERA LIFE NEW ERA LIFE [id number] 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
--- OUTSIDE RECORDS SUMMARY | 2019-01-20 18:37 | XMS REPORT | Summary of Care ---
:1940 Author Organization [facility] Address [address] [place] [address] Care Team Providers Name Role Phone Aria Loja MD Primary Care Provider Reason for Visit Reason Comments CAD (Routine) Status Reason Specialty Diagnoses / Referred By Referred To Procedures Contact Contact Authorized IM-CARDIOVASCULAR Diagnoses Phase 2 CAD DM2 Giselle Traore, Rehab, [facility] DISEASE / Cardiac Procedures [place] OUTPATIENT C[facility] REHAB W/CONT ECG MONITORING PHASE 2/MONITORED EXERCISE Cardiac Rehabilitation [address] [place] [address] [address] [place] [address] Encounter Details Date Type Department Care Team Description 01/18/2019 Equipment Maintenance Tech Visit [facility] Giselle Traore MD 146 [facility] [address] [place], [place] [phone] Atherosclerosis of [place] coronary artery of [place] heart without angina pectoris; Cardiac Rehab, [facility] 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, 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 Rehabilitation- [facility] [address] [place] [address] [address], [address] [place] [address] Allergies Active Allergy Reactions Severity Noted [...] 06/15/2018 Dizziness 06/15/2018 Coronary artery disease involving [place] coronary artery of [place] heart 06/15 without angina pectoris Essential hypertension [...] Treatment Date Type Specialty Care Team Description 01/20/2019 Equipment Maintenance Tech Visit Cardiac Rehabilitation Giselle Traore MD [address] [place] [address] [place] [address] [phone] Rehab, [facility] 01/23/2019 Equipment Maintenance Tech Visit Cardiac Rehabilitation Giselle Traore MD [address] [place] [address] 189[address] [phone] Rehab, [facility] Cardiac 01/25/2019 Equipment Maintenance Tech Visit Cardiac Rehabilitation Giselle Traore MD [address] [place] [address] 95282 Rehab, [facility] Cardiac 01/27/2019 Equipment Maintenance Tech Visit Cardiac Rehabilitation Giselle Traore MD [address] [place] [address] 18606 [phone] Rehab, [facility] Cardiac 01/30/2019 Equipment Maintenance Tech Visit Cardiac Rehabilitation Giselle Traore MD [address] [place] [address] 35444 Rehab, [facility] Cardiac 02/01/2019 Equipment Maintenance Tech Visit Cardiac Rehabilitation Giselle Traore MD [address] [place] [address] 46737 Rehab, [facility] Cardiac 02/03/2019 Equipment Maintenance Tech Visit Cardiac Giselle Luevano MD [address] [place] [address] 97363 Rehab, [facility] Cardiac 02/06/2019 Equipment Maintenance Tech Visit Cardiac Giselle Luevano MD [address] [place] [address] 99290 Rehab, [facility] Cardiac 02/08/2019 Equipment Maintenance Tech Visit Cardiac Rehabilitation Giselle Traore MD [address] [place] [address] 94084 Rehab, [facility] Cardiac 02/10/2019 Equipment Maintenance Tech Visit Cardiac Rehabilitation Giselle Traore MD [address] [place] [address] 06976 Rehab, [facility] Cardiac 02/13/2019 Equipment Maintenance Tech Visit Cardiac Rehabilitation Giselle Traore MD [address] [place] [address] [place] [address] 40840 Rehab, [facility] Cardiac 02/13/2019 Office Visit Urology Lukas Daley [address] [place] [address] [phone] 02/15/2019 Equipment Maintenance Tech Visit Cardiac Rehabilitation Giselle Traore MD [address] [place] [address] 01367 Rehab, [facility] Cardiac 02/17/2019 Equipment Maintenance Tech Visit Cardiac Rehabilitation Giselle Traore MD [address] [place] [address] 17374 Rehab, [facility] Cardiac 02/22/2019 Equipment Maintenance Tech Visit Cardiac Rehabilitation Giselle Traore MD [address] [place] [address] 64434 Rehab, [facility] Cardiac 02/24/2019 Equipment Maintenance Tech Visit Cardiac Rehabilitation Giselle Traore MD [address] [place] [address] 01923 Rehab, [facility] Cardiac 02/27/2019 Equipment Maintenance Tech Visit Cardiac Rehabilitation Giselle Traore MD [address] [place] [address] 38795 Rehab, [facility] Cardiac 03/01/2019 Equipment Maintenance Tech Visit Cardiac Rehabilitation Giselle Traore MD [address] [place] [address] 21336 Rehab, [facility] Cardiac 03/03/2019 Equipment Maintenance Tech Visit Cardiac Rehabilitation Giselle Traore MD [address] [place] [address] 13492 Rehab, [facility] Cardiac 03/06/2019 Equipment Maintenance Tech Visit Cardiac Rehabilitation Giselle Traore MD [address] [place] [address] 81863 [phone] Rehab, [facility] Cardiac 03/08/2019 Equipment Maintenance Tech Visit Cardiac Rehabilitation Giselle Traore MD [address] [place] [address] 38588 Rehab, [facility] Cardiac 03/10/2019 Equipment Maintenance Tech Visit Cardiac Rehabilitation Giselle Traore MD [address] [place] [address] 38473 [phone] Rehab, [facility] Cardiac 03/13/2019 Equipment Maintenance Tech Visit Cardiac Rehabilitation Giselle Traore MD [address] [place] [address] [phone] Rehab, [facility] Cardiac 03/15/2019 Equipment Maintenance Tech Visit Cardiac Rehabilitation Giselle Traore MD [address] [place] [address] 92657 [phone] Rehab, [facility] Cardiac 03/17/2019 Equipment Maintenance Tech Visit Cardiac Rehabilitation Giselle Traore MD [address] [place] [address] [phone] Rehab, [facility] Cardiac 03/20/2019 Equipment Maintenance Tech Visit Cardiac Rehabilitation Giselle Traore MD [address] [place] [address] 01719 [phone] Rehab, [facility] Cardiac 04/11/2019 Office Visit Family Medicine Aria Loja MD [address] [place] [address] [phone] 07/03/2019 Office Visit Cardiology Giselle Traore MD [address] [place] [address] 01402 [phone] Health Maintenance Due Date Last Done Comments [...] history exists documented as of 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 Procedures Procedure Name Priority Date/Time Associated Diagnosis Comments POCT GLUCOSE Routine 01/18/2019 10:11 AM Results for this (AUTOMATED) CDT procedure are in the results section. documented in 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 Results POCT GLUCOSE (AUTOMATED) (01/18/2019 10:11 AM CDT) POCT GLU 177 (H) 70 - 110 mg/dL [facility] Specimen Blood Performing Organization Address City/State/Zipcode Phone Number [facility] CLIA: [id number], [address] [place] [address] [phone] [facility] documented in 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 Visit Diagnoses Diagnosis Atherosclerosis of [place] coronary artery of [place] heart without angina pectoris 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, unspecified whether [facility] insulin use documented in 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 Insurance Payer Benefit Plan Subscriber ID Effective Phone Address Type / Group Dates MEDICARE MEDICARE PART xxxxxxxxxxx 2004-[place] 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
--- OUTSIDE RECORDS SUMMARY | 2019-01-20 18:37 | XMS REPORT | Summary of Care ---
:1940 Author Organization [facility] Address [address] [place] [address] Care Team Providers Name Role Phone Aria Loja MD Primary Care Provider Reason for Visit Reason Comments Notification Biotel Encounter Details Date Type Department Care Team Description 01/17/2019 Telephone [facility] Giselle Traore MD Notification (Biotel) Cardiology- [address], [address] [place] [phone] Allergies Active Allergy Reactions Severity Noted Date [...] 06/15/2018 Dizziness 06/15/2018 Coronary artery disease involving [place] coronary artery of [place] heart 06/15 without angina pectoris Essential hypertension [...] Date Type Specialty Care Team Description 01/18/2019 Food And Nutrition Supervisor Visit Cardiac Rehabilitation Giselle Traore MD [address] [place] [address] 29247 [phone] Rehab, [facility] Cardiac 01/20/2019 Food And Nutrition Supervisor Visit Cardiac Rehabilitation Giselle Traore MD [address] [place] [address] [address] [place] [address] [phone] [facility] 01/23/2019 Food And Nutrition Supervisor Visit Cardiac Rehabilitation Giselle Traore MD [address] [place] [address] 106 [place] [address] [phone] Rehab, [facility] Cardiac 01/25/2019 Food And Nutrition Supervisor Visit Cardiac Rehabilitation Giselle Traore MD [address] [place] [address] 15505 [phone] Rehab, [facility] Cardiac 01/27/2019 Food And Nutrition Supervisor Visit Cardiac Rehabilitation Giselle Traore MD [address] [place] [address] [address]hab, [facility] Cardiac 01/30/2019 Food And Nutrition Supervisor Visit Cardiac Rehabilitation Giselle Traore MD [address] [place] [address] 88007 [phone] Rehab, [facility] Cardiac 02/01/2019 Food And Nutrition Supervisor Visit Cardiac Rehabilitation Giselle Traore MD [address] [place] [address] 08029 [phone] Rehab, [facility] Cardiac 02/03/2019 Food And Nutrition Supervisor Visit Cardiac Rehabilitation Giselle Traore MD [address] [place] [address] 51331 [phone] Rehab, [facility] Cardiac 02/06/2019 Food And Nutrition Supervisor Visit Cardiac Rehabilitation Giselle Traore MD [address] [place] [address] [address]hab, [facility] Cardiac 02/08/2019 Food And Nutrition Supervisor Visit Cardiac Rehabilitation Giselle Traore MD [address] [place] [address] 36522 [phone] Rehab, [facility] Cardiac 02/10/2019 Food And Nutrition Supervisor Visit Cardiac Rehabilitation Giselle Traore MD [address] [place] [address] 129[address] [address], [facility] Cardiac 02/13/2019 Food And Nutrition Supervisor Visit Cardiac Rehabilitation Giselle Traore MD [address] [place] [address] 58142 [phone] Rehab, [facility] Cardiac 02/13/2019 Office Visit Urology Lukas Daley [address] [facility] [address] [place] [address] [phone] 02/15/2019 Food And Nutrition Supervisor Visit Cardiac Rehabilitation Giselle Traore MD [address] [place] [address] [address], [facility] Cardiac 02/17/2019 Food And Nutrition Supervisor Visit Cardiac Rehabilitation Giselle Traore MD [address] [place] [address] 01129 [address]hab, [facility] Cardiac 02/22/2019 Food And Nutrition Supervisor Visit Cardiac Rehabilitation Giselle Traore MD [address] [place] [address] 29267 [address]hab, [facility] Cardiac 02/24/2019 Food And Nutrition Supervisor Visit Cardiac Rehabilitation Giselle Traore MD [address] [place] [address] 13296 [address], [facility] Cardiac 02/27/2019 Food And Nutrition Supervisor Visit Cardiac Rehabilitation Giselle Traore MD [address] [place] [address] 66313 [address]hab, [facility] Cardiac 03/01/2019 Food And Nutrition Supervisor Visit Cardiac Rehabilitation Giselle Traore MD [address] [place] [address] 55124 [address]hab, [facility] Cardiac 03/03/2019 Food And Nutrition Supervisor Visit Cardiac Rehabilitation Giselle Traore MD [address] [place] [address] 84[address] [address], [facility] Cardiac 03/06/2019 Food And Nutrition Supervisor Visit Cardiac Rehabilitation Giselle Traore MD [address] [place] [address] 73445 [address]hab, [facility] Cardiac 03/08/2019 Food And Nutrition Supervisor Visit Cardiac Rehabilitation Giselle Traore MD [address] [place] [address] 51359 [phone] Rehab, [facility] Cardiac 03/10/2019 Food And Nutrition Supervisor Visit Cardiac Rehabilitation Giselle Traore MD [address] [place] [address] 11151 [phone] Rehab, [facility] Cardiac 03/13/2019 Food And Nutrition Supervisor Visit Cardiac Rehabilitation Giselle Traore MD [address] [place] [address] [phone] [address]hab, [facility] Cardiac 03/15/2019 Food And Nutrition Supervisor Visit Cardiac Rehabilitation Giselle Traore MD [address] [place] [address] [phone] Rehab, [facility] Cardiac 03/17/2019 Food And Nutrition Supervisor Visit Cardiac Rehabilitation Giselle Traore MD [address] [place] [address] 29214 [phone] Rehab, [facility] Cardiac 03/20/2019 Food And Nutrition Supervisor Visit Cardiac Rehabilitation Giselle Traore MD [address] [place] [address] 44428 [phone] Rehab, [facility] Cardiac 04/11/2019 Office Visit Family Medicine Aria Loja MD [address] [place] [phone] 07/03/2019 Office Visit Cardiology Giselle Traore MD [address] [place] [address] 20636 [phone] Health Maintenance Due Date Last Done Comments [...] / Group Dates MEDICARE MEDICARE PART xxxxxxxxxxx 2004-[place] 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
--- OUTSIDE RECORDS SUMMARY | 2019-01-20 18:37 | XMS REPORT | Summary of Care ---
:1940 Author Organization [facility] Address [address] [place] [id number] Care Team Providers Name Role Phone Aria Loja MD Primary Care Provider Reason for Visit Reason Comments Notification Biotel Encounter Details Date Type Department Care Team Description 01/17/2019 Telephone [facility] Giselle Traore MD Notification (Biotel) Cardiology- [address], [address] [place] [phone] Allergies Active Allergy Reactions Severity Noted Date [...] 06/15/2018 Dizziness 06/15/2018 Coronary artery disease involving enterprise coronary artery of enterprise heart 06/15 without angina pectoris Essential hypertension [...] Date Type Specialty Care Team Description 01/18/2019 [employer] Visit Cardiac Rehabilitation Giselle Traore MD [address] [place] [address] [phone] Rehab, [facility] Cardiac 01/20/2019 [employer] Visit Cardiac Rehabilitation Giselle Traore MD [address] [place] [address] [address] [place] [address] [phone] Rehab, [facility] 01/23/2019 [employer] Visit Cardiac Rehabilitation Giselle Traore MD [address] [place] [address] [address] [place] [address] [phone] Rehab, [facility] Cardiac 01/25/2019 [employer] Visit Cardiac Rehabilitation Giselle Traore MD [address] [place] [address] [phone] Rehab, [facility] Cardiac 01/27/2019 [employer] Visit Cardiac Rehabilitation Giselle Traore MD [address] [place] [phone] Rehab, [facility] Cardiac 01/30/2019 [employer] Visit Cardiac Rehabilitation Giselle Traore MD [address] [place] [address] [phone] Rehab, [facility] Cardiac 02/01/2019 [employer] Visit Cardiac Rehabilitation Giselle Traore MD [address] [place] [address] [phone] Rehab, [facility] Cardiac 02/03/2019 [employer] Visit Cardiac Rehabilitation Giselle Traore MD [address] [place] [address] [phone] Rehab, [facility] Cardiac 02/06/2019 [employer] Visit Cardiac Rehabilitation Giselle Traore MD [address] [place] [phone] Rehab, [facility] Cardiac 02/08/2019 [employer] Visit Cardiac Rehabilitation Giselle Traore MD [address] [place] [address] [phone] Rehab, [facility] Cardiac 02/10/2019 [employer] Visit Cardiac Rehabilitation Giselle Traore MD [address] [place] [phone] Rehab, [facility] Cardiac 02/13/2019 [employer] Visit Cardiac Rehabilitation Giselle Traore MD [address] [place] [address] [phone] Rehab, [facility] Cardiac 02/13/2019 Office Visit Urology Lukas Daley [address] [facility] [id number] [place] [address] [phone] 02/15/2019 [employer] Visit Cardiac Rehabilitation Giselle Traore MD [address] [place] [phone] Rehab, [facility] Cardiac 02/17/2019 [employer] Visit Cardiac Rehabilitation Giselle Traore MD [address] [place] [phone] Rehab, [facility] Cardiac 02/22/2019 [employer] Visit Cardiac Rehabilitation Giselle Traore MD [address] [place] [phone] Rehab, [facility] Cardiac 02/24/2019 [employer] Visit Cardiac Rehabilitation Giselle Traore MD [address] [place] [phone] Rehab, [facility] Cardiac 02/27/2019 [employer] Visit Cardiac Rehabilitation Giselle Traore MD [address] [place] [address] [phone] Rehab, [facility] Cardiac 03/01/2019 [employer] Visit Cardiac Rehabilitation Giselle Traore MD [address] [place] [phone] Rehab, [facility] Cardiac 03/03/2019 [employer] Visit Cardiac Rehabilitation Giselle Traore MD [address] [place] [phone] Rehab, [facility] Cardiac 03/06/2019 [employer] Visit Cardiac Rehabilitation Giselle Traore MD [address] [place] [phone] Rehab, [facility] Cardiac 03/08/2019 [employer] Visit Cardiac Rehabilitation Giselle Traore MD [address] [place] [address] [phone] Rehab, [facility] Cardiac 03/10/2019 [employer] Visit Cardiac Rehabilitation Giselle Traore MD [address] [place] [address] [phone] Rehab, [facility] Cardiac 03/13/2019 [employer] Visit Cardiac Rehabilitation Giselle Traore MD [address] [place] [address] [phone] Rehab, [facility] Cardiac 03/15/2019 [employer] Visit Cardiac Rehabilitation Giselle Traore MD [address] [place] [address] [phone] Rehab, [facility] Cardiac 03/17/2019 [employer] Visit Cardiac Rehabilitation Giselle Traore MD [address] [place] [address] [phone] Rehab, [facility] Cardiac 03/20/2019 [employer] Visit Cardiac Rehabilitation Giselle Traore MD [address] [place] [address] [phone] Rehab, [facility] Cardiac 04/11/2019 Office Visit Family Medicine Aria Loja MD [address] [place] [phone] 07/03/2019 Office Visit Cardiology Giselle Traore MD [address] [place] [address] [phone] Health Maintenance Due Date Last Done Comments [...] BOX Medicare A & B nt [id number] [place] [id number] [employer] [id number] 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
[2019-01-20 19:42] LABS: Urine Blood NEGATIVE (NEG); Urine Glucose TRACE (NEG); Urine Protein NEGATIVE (NEG); Urine Specific Gravity 1.025 (1.005-1.030); Urine pH 5.5 (5.0-7.0)
--- NOTE | 2019-01-20 19:45 | RAD REPORT ---
EXAM DESCRIPTION: US - Scrotum Testicles - 01/20/2019 7:35 pm CLINICAL HISTORY: Testicular pain COMPARISON: CT study January 11. FINDINGS: Each epididymis is normal in size without hyperemia. Both testicles normal in size with ho mogeneous echogenicity. No testicular mass. Doppler evaluation shows blood flow to be normal within e ach testicle. No herniated bowel seen in the inguinal canals. Fatty tissues are seen. No inguinal hernias were seen on the recent CT study. Prominent tortuous veins are seen superior to each testicle. This is mild on the right and moderate o n the left. IMPRESSION: Left greater than right bilateral varicoceles. No testicle or epididymis abnormality.
[2019-01-20] MEDS ORDERED: CIPROFLOXACIN 400mg IV 400 MG/200 ML BAG IV ONE (20:05)
[2019-01-20] MEDS ORDERED: METRONIDAZOLE 500mg IVPB 500 MG/100 ML BAG IV ONE (20:05)
[2019-01-20] MEDS ORDERED: NA CHLORIDE 0.9% 1,000 ML ONE (20:05)
[2019-01-20 20:43] LABS: Protime INR 0.89
[2019-01-20 20:51] LABS: Absolute Lymphocytes (CBC) 1.8 K/uL (0.7-4.9); Basophils % 0.6 % (0-1.3); Hematocrit 35.1 % (39.6-49.0); Lymphocytes % 27.1 % (15.3-44.8); MPV 8.5 fL (7.6-11.3); RBC Red Blood Cell Count 3.86 M/uL (4.33-5.43)
[2019-01-20 21:02] LABS: ALT/SGPT 22 U/L (12-78); AST/SGOT 12 U/L (15-37); Albumin 3.2 g/dL (3.4-5.0); Alkaline Phosphatase 60 U/L (45-117); BUN Blood Urea Nitrogen 17 mg/dL (7-18); Bicarbonate 23 mmol/L (21-32); Bilirubin Direct < 0.1 mg/dL (0-0.2); Bilirubin Total 0.2 mg/dL (0.2-1.0); Glucose Level 130 mg/dL (74-106); Lipase 200 U/L (73-393); Magnesium 2.3 mg/dL (1.8-2.4); NT PRO-BNP 140 pg/mL (<450); Potassium 4.1 mmol/L (3.5-5.1); Protein, Total 6.7 g/dL (6.4-8.2); Sodium Level 142 mmol/L (136-145); Troponin (Emerg Dept Use Only) < 0.02 ng/mL (0.0-0.045)
[2019-01-20] MEDS ORDERED: ONDANSETRON 4 MG/2 ML VIAL ONE (21:45)
--- NOTE | 2019-01-20 22:21 | ER ---
Nurse's Notes [facility] Name: Dave Moreland Age: 79 yrs Sex: Male : 1940 Arrival Date: 01/20/2019 Time: 18:36 Bed 7 Private MD: Diagnosis: Abdominal tenderness-bilateral varicoceles Presentation: 01/20 18:47 Presenting complaint: Testicular pain and swelling x 3-4 days, pain has become severe hb this afternoon. Also reports burning with urination and lower abdominal pain. Transition of care: patient was not received from another setting of care. Onset of symptoms was January 20, 2019. Risk Assessment: Do you want to hurt yourself or someone else? Patient reports no desire to harm self or others. Initial Sepsis Screen: Does the patient meet any 2 criteria? No. Patient's initial sepsis screen is negative. Does the patient have a suspected source of infection? No. Patient's initial sepsis screen is negative. Care prior to arrival: None. 18:47 Method Of Arrival: Ambulatory hb 18:47 Acuity: CLARK 3 hb Historical: - Allergies: 18:50 Codeine; hb - Home Meds: 18:50 aspirin 81 mg Oral chew 1 tab once daily [Active]; clopidogrel 75 mg Oral tab 1 tab hb once daily [Active]; finasteride 5 mg Oral tab 1 tab once daily [Active]; gabapentin 100 mg oral cap twice a day [Active]; isosorbide mononitrate 60 mg Oral Tb24 1 tab once daily [Active]; lisinopril 20 mg Oral tab 1 tab once daily [Active]; metformin 500 mg Oral tab 1 tab 2 times per day [Active]; pantoprazole 40 mg Oral TbEC 1 tab once daily [Active]; tamsulosin 0.4 mg Oral cp24 1 cap once daily [Active]; - PMHx: 18:50 Myocardial infarction; prostate problems; Hyperlipidemia; Hypertension; GERD; Diabetes hb - NIDDM; - PSHx: 18:50 Heart stents; Hernia repair; Cholecystectomy; Tonsillectomy; L hand tendon release; hb neck/back sx; - Immunization history:: Adult Immunizations up to date. - Social history:: Smoking status: Patient/guardian denies using tobacco. - Ebola Screening: : No symptoms or risks identified at this time. - Family history:: not pertinent. Screenin:44 Abuse screen: Denies threats or abuse. Denies injuries from another. Nutritional aj screening: No deficits noted. Tuberculosis screening: No symptoms or risk factors identified. Fall Risk None identified. Assessment: 19:11 General: Appears in no apparent distress. comfortable, Behavior is calm, cooperative, aj appropriate for age. Pain: Complains of pain in left testicle. Neuro: Level of Consciousness is awake, alert, obeys commands, Oriented to person, place, time, situation, Appropriate for age. Respiratory: Airway is patent Respiratory effort is even, unlabored, Respiratory pattern is regular, symmetrical. : Reports pain in left testicle. Derm: Skin is intact, is healthy with good turgor, Skin is pink, warm \T\ dry. normal. 22:20 General: Appears in no apparent distress. comfortable, Behavior is calm, cooperative, jd3 appropriate for age. 22:20 Pain: Denies pain. Neuro: Level of Consciousness is awake, alert, obeys commands, jd3 Oriented to person, place, time, situation. Cardiovascular: Capillary refill < 3 seconds Patient's skin is warm and dry. Respiratory: Airway is patent Respiratory effort is even, unlabored, Respiratory pattern is regular, symmetrical. GI: No signs and/or symptoms were reported involving the gastrointestinal system. : Reports report discomfort to left testicle. EENT: No signs and/or symptoms were reported regarding the EENT system. Derm: Skin is intact, Skin is dry, Skin is normal, Skin temperature is warm. Musculoskeletal: Circulation, motion, and sensation intact. Range of motion: intact in all extremities. 23:03 Reassessment: Patient appears in no apparent distress at this time. Patient and/or jd3 family updated on plan of care and expected duration. Pain level reassessed. Patient is alert, oriented x 3, equal unlabored respirations, skin warm/dry/pink. reported understanding of discharge instructions. Vital Signs: 18:46 BP 151 / 71; Pulse 59; Resp 16; Temp 98.5(TE); Pulse Ox 98% on R/A; Weight 81.65 kg; hb Height 5 ft. 10 in. (177.80 cm); Pain 8/10; 19:11 BP 130 / 71; Pulse 57; Resp 18; Pulse Ox 98% on R/A; aj 20:54 BP 137 / 78; Pulse 65; Resp 16; Pulse Ox 98% on R/A; aj 22:12 BP 141 / 81; Pulse 62; Resp 16; Pulse Ox 96% on R/A; aj 18:46 Body Mass Index 25.83 (81.65 kg, 177.80 cm) hb ED Course: 18:36 Patient arrived in ED. as 18:48 Triage completed. hb 18:48 Arm band placed on. hb 18:51 Haley Grigsby, RN is Primary Nurse. aj 19:29 Jalil Silva MD is Attending Physician. jaxon 19:35 US Scrotum Testicles In Process Unspecified. EDMS 19:44 Patient has correct armband on for positive identification. aj 19:54 Radiology exam delayed due to lab results not completed at this time. (BUN/Creatinine). nj 20:18 XRAY Chest (1 view) In Process Unspecified. EDMS 20:29 Radiology exam delayed due to lab results not completed at this time. (BUN/Creatinine) nj IV insertion attempt and/or patient not having appropriate IV at this time. 20:37 Inserted saline lock: 22 gauge in right hand, using aseptic technique. Blood collected. aj 21:[address] nj 21:50 CT Abd/Pelvis - IV Contrast Only In Process Unspecified. EDMS 22:18 Aryan Mendoza MD is Referral Physician. jaxon 23:03 No provider procedures requiring assistance completed. IV discontinued, intact, jd3 bleeding controlled, No redness/swelling at site. Pressure dressing applied. Administered Medications: 20:37 Drug: NS 0.9% 1000 ml Route: IV; Rate: 1 bolus; Site: right hand; aj 23:04 Follow up: Response: No adverse reaction; IV Status: Completed infusion; IV Intake: jd3 1000ml 20:37 Drug: Cipro 400 mg Volume: 200 ml; Route: IVPB; Infused Over: 60 mins; Site: right hand;aj 23:05 Follow up: Response: No adverse reaction; IV Status: Completed infusion; IV Intake: jd3 200ml 20:37 Drug: Flagyl 500 mg Volume: 100 ml; Route: IVPB; Rate: 200 ml/hr; Infused Over: 30 aj mins; Site: right hand; 20:55 Follow up: Response: No adverse reaction; IV Status: Completed infusion; IV Intake: aj 100ml 21:50 Drug: NS 0.9% 500 ml Route: IV; Rate: bolus; Site: right hand; aj 23:05 Follow up: Response: No adverse reaction; IV Status: Completed infusion; IV Intake: jd3 500ml Intake: 20:55 IV: 100ml; Total: 100ml. aj 23:04 IV: 1000ml; Total: 1100ml. jd3 23:05 IV: 500ml; Total: 1600ml. jd3 23:05 IV: 200ml; Total: 1800ml. jd3 Outcome: 22:18 Discharge ordered by . jaxon 23:04 Discharged to home ambulatory, with family. jd3 23:04 Condition: stable 23:04 Discharge instructions given to patient, family, Instructed on discharge instructions, follow up and referral plans. medication usage, Demonstrated understanding of instructions, follow-up care, medications, Prescriptions given X 3. 23:05 Patient left the ED. jd3 Signatures: Dispatcher [employer] EDHaley Suero RN RN aj Anderson, Corey, MD MD cha Martinez, Amelia as Baxter, Heather, RN RN hb Jordan, Nathan nj Davies, Jonathon, RN RN jd3
--- NOTE | 2019-01-20 22:21 | EDPHYS ---
Physician Documentation [facility] Name: Dave Moreland Age: 79 yrs Sex: Male : 1940 Arrival Date: 01/20/2019 Time: 18:36 Bed 7 Private MD: ED Physician Jalil Silva HPI: 01/20 19:51 This 79 yrs old Male presents to ER via Ambulatory with complaints of jaxon Testicular Pain. 19:51 The patient presents with scrotal pain, of the left side. Onset: The symptoms/episode jaxon began/occurred 3 day(s) ago. Modifying factors: The symptoms are alleviated by nothing, the symptoms are aggravated by movement, pressure. Associated signs and symptoms: Pertinent positives: abdominal pain. 19:53 The patient presents with abdominal pain in the lower abdomen. Onset: The jaxon symptoms/episode began/occurred 3 day(s) ago. Associated signs and symptoms: none. Severity of pain: At its worst the pain was moderate in the emergency department the pain is unchanged. Historical: - Allergies: 18:50 Codeine; hb - Home Meds: 18:50 aspirin 81 mg Oral chew 1 tab once daily [Active]; clopidogrel 75 mg Oral tab 1 tab hb once daily [Active]; finasteride 5 mg Oral tab 1 tab once daily [Active]; gabapentin 100 mg oral cap twice a day [Active]; isosorbide mononitrate 60 mg Oral Tb24 1 tab once daily [Active]; lisinopril 20 mg Oral tab 1 tab once daily [Active]; metformin 500 mg Oral tab 1 tab 2 times per day [Active]; pantoprazole 40 mg Oral TbEC 1 tab once daily [Active]; tamsulosin 0.4 mg Oral cp24 1 cap once daily [Active]; - PMHx: 18:50 Myocardial infarction; prostate problems; Hyperlipidemia; Hypertension; GERD; Diabetes hb - NIDDM; - PSHx: 18:50 Heart stents; Hernia repair; Cholecystectomy; Tonsillectomy; L hand tendon release; hb neck/back sx; - Immunization history:: Adult Immunizations up to date. - Social history:: Smoking status: Patient/guardian denies using tobacco. - Ebola Screening: : No symptoms or risks identified at this time. - Family history:: not pertinent. ROS: 19:53 Constitutional: Negative for fever, chills, and weight loss, Eyes: Negative for injury, jaxon pain, redness, and discharge, ENT: Negative for injury, pain, and discharge, Neck: Negative for injury, pain, and swelling, Cardiovascular: Negative for chest pain, palpitations, and edema, Respiratory: Negative for shortness of breath, cough, wheezing, and pleuritic chest pain, Back: Negative for injury and pain, : Negative for injury, bleeding, discharge, and swelling, MS/Extremity: Negative for injury and deformity, Skin: Negative for injury, rash, and discoloration, Neuro: Negative for headache, weakness, numbness, tingling, and seizure, Psych: Negative for depression, anxiety, suicide ideation, homicidal ideation, and hallucinations, Allergy/Immunology: Negative for hives, rash, and allergies, Endocrine: Negative for neck swelling, polydipsia, polyuria, polyphagia, and marked weight changes, Hematologic/Lymphatic: Negative for swollen nodes, abnormal bleeding, and unusual bruising. 19:53 Abdomen/GI: Positive for abdominal pain, abdominal cramps, of the left upper quadrant and left lower quadrant. Exam: 19:53 Constitutional: This is a well developed, well nourished patient who is awake, alert, jaxon and in no acute distress. Head/Face: Normocephalic, atraumatic. Eyes: Pupils equal round and reactive to light, extra-ocular motions intact. Lids and lashes normal. Conjunctiva and sclera are non-icteric and not injected. Cornea within normal limits. Periorbital areas with no swelling, redness, or edema. ENT: Nares patent. No nasal discharge, no septal abnormalities noted. Tympanic membranes are normal and external auditory canals are clear. Oropharynx with no redness, swelling, or masses, exudates, or evidence of obstruction, uvula midline. Mucous membranes moist. Neck: Trachea midline, no thyromegaly or masses palpated, and no cervical lymphadenopathy. Supple, full range of motion without nuchal rigidity, or vertebral point tenderness. No Meningismus. Chest/axilla: Normal chest wall appearance and motion. Nontender with no deformity. No lesions are appreciated. Cardiovascular: Regular rate and rhythm with a normal S1 and S2. No gallops, murmurs, or rubs. Normal PMI, no JVD. No pulse deficits. Respiratory: Lungs have equal breath sounds bilaterally, clear to auscultation and percussion. No rales, rhonchi or wheezes noted. No increased work of breathing, no retractions or nasal flaring. Back: No spinal tenderness. No costovertebral tenderness. Full range of motion. Male : Normal genitalia with no discharge or lesions. Skin: Warm, dry with normal turgor. Normal color with no rashes, no lesions, and no evidence of cellulitis. MS/ Extremity: Pulses equal, no cyanosis. Neurovascular intact. Full, normal range of motion. Neuro: Awake and alert, GCS 15, oriented to person, place, time, and situation. Cranial nerves II-XII grossly intact. Motor strength 5/5 in all extremities. Sensory grossly intact. Cerebellar exam normal. Normal gait. Psych: Awake, alert, with orientation to person, place and time. Behavior, mood, and affect are within normal limits. 19:53 Abdomen/GI: Inspection: abdomen appears normal, Bowel sounds: normal, Liver: no appreciated palpable abnormalities, Hernia: not appreciated. Vital Signs: 18:46 BP 151 / 71; Pulse 59; Resp 16; Temp 98.5(TE); Pulse Ox 98% on R/A; Weight 81.65 kg; hb Height 5 ft. 10 in. (177.80 cm); Pain 8/10; 19:11 BP 130 / 71; Pulse 57; Resp 18; Pulse Ox 98% on R/A; aj 20:54 BP 137 / 78; Pulse 65; Resp 16; Pulse Ox 98% on R/A; aj 22:12 BP 141 / 81; Pulse 62; Resp 16; Pulse Ox 96% on R/A; aj 18:46 Body Mass Index 25.83 (81.65 kg, 177.80 cm) hb MDM: 19:29 Patient medically screened. [facility] 19:54 Data reviewed: vital signs, nurses notes, lab test result(s), EKG, radiologic studies, [facility] CT scan, plain films, ultrasound. 01/20 19:16 Order name: Urine Dipstick--Ancillary (enter results); Complete Time: 19:49 cm6 01/20 19:51 Order name: Basic Metabolic Panel; Complete Time: 21:56 [facility] 01/20 19:51 Order name: CBC with Diff; Complete Time: 21:56 [facility] 01/20 19:51 Order name: LFT's; Complete Time: 21:56 [facility] 01/20 19:51 Order name: Magnesium; Complete Time: 21:56 [facility] 01/20 19:51 Order name: NT PRO-BNP; Complete Time: 21:56 [facility] 01/20 19:12 Order name: US Scrotum Testicles; Complete Time: 19:49 kb 01/20 19:51 Order name: PT-INR; Complete Time: 21:56 [facility] 01/20 19:51 Order name: Troponin (emerg Dept Use Only); Complete Time: 21:56 [facility] 01/20 19:51 Order name: XRAY Chest (1 view) [facility] 01/20 19:51 Order name: Lipase; Complete Time: 21:56 [facility] 01/20 19:51 Order name: CT Abd/Pelvis - IV Contrast Only [facility] 01/20 19:12 Order name: Urine Dipstick-Ancillary (obtain specimen); Complete Time: 19:49 kb 01/20 19:51 Order name: EKG; Complete Time: 19:52 [facility] 01/20 19:51 Order name: Cardiac monitoring; Complete Time: 20:51 [facility] 01/20 19:51 Order name: EKG - Nurse/Tech; Complete Time: 21:34 [facility] 01/20 19:51 Order name: IV Saline Lock; Complete Time: 20:51 [facility] 01/20 19:51 Order name: Labs collected and sent; Complete Time: 20:51 [facility] 01/20 19:51 Order name: O2 Per Protocol; Complete Time: 20:51 [facility] 01/20 19:51 Order name: O2 Sat Monitoring; Complete Time: 20:51 [facility] Administered Medications: 20:37 Drug: NS 0.9% 1000 ml Route: IV; Rate: 1 bolus; Site: right hand; aj 23:04 Follow up: Response: No adverse reaction; IV Status: Completed infusion; IV Intake: jd3 1000ml 20:37 Drug: Cipro 400 mg Volume: 200 ml; Route: IVPB; Infused Over: 60 mins; Site: right hand;aj 23:05 Follow up: Response: No adverse reaction; IV Status: Completed infusion; IV Intake: jd3 200ml 20:37 Drug: Flagyl 500 mg Volume: 100 ml; Route: IVPB; Rate: 200 ml/hr; Infused Over: 30 aj mins; Site: right hand; 20:55 Follow up: Response: No adverse reaction; IV Status: Completed infusion; IV Intake: aj 100ml 21:50 Drug: NS 0.9% 500 ml Route: IV; Rate: bolus; Site: right hand; aj 23:05 Follow up: Response: No adverse reaction; IV Status: Completed infusion; IV Intake: jd3 500ml Disposition: 01/20/19 22:18 Discharged to Home. Impression: Abdominal tenderness - bilateral varicoceles. - Condition is Stable. - Discharge Instructions: Abdominal Pain, Adult, Abdominal Pain, Adult, [id number]. - Prescriptions for Bentyl 20 mg Oral Tablet - take 1 tablet by ORAL route every 6 hours As needed; 20 tablet. Flagyl 500 mg Oral Tablet - take 1 tablet by ORAL route every 8 hours for 7 days; 21 tablet. Cipro 500 mg Oral Tablet - take 1 tablet by ORAL route every 12 hours for 7 days; 14 tablet. - Medication Reconciliation Form, Thank You Letter, Antibiotic Education, Prescription Opioid Use form. - Follow up: Private Physician; When: 2 - 3 days; Reason: Recheck today's complaints, Continuance of care, Re-evaluation by your physician. Follow up: Aryan Mendoza; When: 2 - 3 days; Reason: Recheck today's complaints, Re-evaluation by your physician. - Problem is new. - Symptoms have improved. Signatures: Dispatcher [employer] EDKhushbu Mariscal, ROOFER METAL-C ROOFER METAL-Haley Toro RN RN aj Anderson, Corey, MD MD cha Baxter, Heather, RN RN hb Davies, Jonathon, RN RN jd3 Corrections: (The following items were deleted from the chart) 23:05 22:18 01/20/2019 22:18 Discharged to Home. Impression: Abdominal tenderness - bilateral jd3 varicoceles. Condition is Stable. Discharge Instructions: Abdominal Pain, Adult, Abdominal Pain, Adult, [id number]. Prescriptions for Bentyl 20 mg Oral Tablet - take 1 tablet by ORAL route every 6 hours As needed; 20 tablet, Flagyl 500 mg Oral Tablet - take 1 tablet by ORAL route every 8 hours for 7 days; 21 tablet, Cipro 500 mg Oral Tablet - take 1 tablet by ORAL route every 12 hours for 7 days; 14 tablet. and Forms are Medication Reconciliation Form, Thank You Letter, Antibiotic Education, Prescription Opioid Use. Follow up: Private Physician; When: 2 - 3 days; Reason: Recheck today's complaints, Continuance of care, Re-evaluation by your physician. Follow up: Aryan Mendoza; When: 2 - 3 days; Reason: Recheck today's complaints, Re-evaluation by your physician. Problem is new. Symptoms have improved. jaxon
--- NOTE | 2019-01-21 06:47 | EKG ---
Test Date: 2019-01-20 Test Time: 20:57:51 Credit Risk Officer: JASPER MEASUREMENT RESULTS: Intervals: Rate: 60 CO: QRSD: 108 QT: 428 QTc: 428 [place]: P: CO: QRS: -52 T: 35 INTERPRETIVE STATEMENTS: Atrial fibrillation Incomplete right bundle branch block Left anterior fascicular block Abnormal ECG No previous ECG available for comparison Electronically Signed On 01-21-19 06:46:01 CDT by Doroteo Carrion
--- NOTE | 2019-01-23 14:10 | RAD REPORT ---
EXAM DESCRIPTION: CT - Abdomen Pelvis W Contrast - 01/21/2019 3:40 am CLINICAL HISTORY: Lower abdominal pain. COMPARISON: 01/11/2019 TECHNIQUE: CT scan of the abdomen and pelvis was performed with IV contrast. This exam was performed according to our departmental dose-optimization program, which includes automated exposure control, adjustment of the mA and/or kV according to patient size and/or use of iterative reconstruction techn ique. FINDINGS: The lung bases are clear. No pleural or pericardial effusions. There has been a prior chol ecystectomy. Liver, spleen, pancreas, adrenal glands, and left kidney are normal. 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 Pelvic organs are normal. No small bowel obstruction. The appendix is normal. No evidence of acute diverticulitis. No adenopath y, free fluid, or free air is identified. The aorta is mildly atherosclerotic. Mild degenerative disc disease at L5-S1. No body wall hernia. IMPRESSION: No acute abdominal or pelvic pathology. Electronically signed by: Dat Bowles MD 01/20/2019 10:05 PM CDT Due to temporary technical issues with the PACS/Fluency reporting system, reports are being signed by the in house radiologist as a courtesy to ensure prompt reporting. The interpreting radiologist is f ully responsible for the content of the report.
== END 2019-01-20 23:05 | disposition home or self-care (01) ==
LOC: ER 18:34
DX: I86.1 Scrotal varices (principal); I10 Essential (primary) hypertension; E11.9 Type 2 diabetes mellitus without complications; I25.2 Old myocardial infarction; K21.9 Gastro-esophageal reflux disease without esophagitis; Z79.82 Long term (current) use of aspirin
CPT/HCPCS: 96365; 96368; 93005; 85025; 80048; 36415; 83735; 85610; 80076; 81003; 84484; 83690; 83880; 74177; 71045; 76870; 99284; 96366; Q9967; J7030; J2405; J0744

== ENCOUNTER 2019-02-19 17:03 | Emergency (ER) | payer OTHER ==
--- OUTSIDE RECORDS SUMMARY | 2019-02-19 17:04 | XMS REPORT ---
:1940 [facility] Address [address] [place] [address] [address] [place] [address] Care Team Providers Name Role Phone Unavailable Unavailable Unavailable Problems This patient has no known problems. Allergies, Adverse Reactions, Alerts This patient has no known allergies or adverse reactions. Medications This patient has no known medications.
--- OUTSIDE RECORDS SUMMARY | 2019-02-19 17:08 | XMS REPORT | Summary of Care ---
:1940 Author Organization [facility] Address [address] [place] [id number] Care Team Providers Name Role Phone Aria Loja MD Primary Care Provider Reason for Visit Reason Comments NURSE VISIT EKG for dizziness and bradycardia Encounter Details Date Type Department Care Team Description 02/03/2019 Nurse Visit [facility] Giselle Traore MD [address] [place] [address] [address] [place] [address] Bradycardia (Primary Dx); Cardiology- [place] Visit, Adc Nurse Dizziness [address] [place] [address], [address] [place] [address] Allergies Active Allergy Reactions Severity Noted Date Comments Canagliflozin Other - See comments 01/18/2017 Genital mycotic infections Codeine Rash 06/15/2018 documented as of 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 (statuses as of 02/03/2019) Medications Medication Sig Dispensed Refills Start Date End Date Status pantoprazole 40 mg Take 40 mg by [...] capsule by capsuleIndications: mouth at Dizziness bedtime. isosorbide Take 0.5 0 02/03/2019 Active mononitrate 60 mg tablets by 24 hr tablet mouth daily. isosorbide Take 60 mg by 0 02/03/2019 Discontinued mononitrate 60 mg mouth. 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 angina pectoris Essential hypertension 06/15/2018 PAF (paroxysmal atrial fibrillation) 06/15/2018 documented as of 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 (statuses as of 02/03/2019) Social History Tobacco Use Types Packs/Day Years [...] Sign Reading Time Taken Comments Blood Pressure 135/65 02/03/2019 11:07 AM CDT became very dizzy with changing from laying to sitting Pulse - - Temperature - - Respiratory Rate - - Oxygen Saturation - - Inhaled Oxygen Concentration - - Weight - - Height - - Body Mass Index - - documented in 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 Patient Instructions Patient InstructionsMeryl Vázquez RN - 02/03/2019 9:00 AM CDTAvoid strenuous activity today and stay indoors. Change positions slowly and if you feel as if you are going to faint or fall please sit down. Try to elevate your feet when sitting and focus on hydration today. Tomorrow you can reduce your dose of isosorbide to 30 mg daily. If your sx increase or change in a negative way please seek medical attention. documented in 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 Progress Notes Meryl Vázquez RN - 02/03/2019 9:00 AM CDTReceived call from Cardiac Rehab. Patient in therapy today with c/o dizziness and bradycardia, HRs in the 40s. Advised to send patient to office due to close proximity for EKG and assessment. 12-lead EKG performed at bedside, patient tolerated well. EKG given to Dr. Traore for review. Sinus bradycardia with PACs. Supine BP 146/69, when moved to sitting position he became very dizzy; sitting BP 135/65. Dr. Traore advised we can reduce isosorbide dose to 30 mg daily. Patient instructed to change positions slowly, stay hydrated today, rest with feet elevated and stay cool today to help alleviate some of the dizzy symptoms for today. Medication profile updated, patient instructed to reduce dose starting tomorrow since he has alreadytaken today. documented in 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 Plan of Treatment Date Type Specialty Care Team Description 02/06/2019 Sound Designer Visit Cardiac Rehabilitation Giselle Traore MD [address] [place] [address] [phone] Rehab, [facility] Cardiac 02/08/2019 Sound Designer Visit Cardiac Rehabilitation Giselle Traore MD [address] [place] [address] Rehab, [facility] Cardiac 02/10/2019 Sound Designer Visit Cardiac Rehabilitation Giselle Traore MD [address] [place] [address] [address]hab, [facility] Cardiac 02/13/2019 Sound Designer Visit Cardiac Rehabilitation Giselle Traore MD [address] [place] [address] [address]hab, [facility] Cardiac 02/13/2019 Office Visit Urology Lukas Daley [id number] [place] [address] [phone] 02/15/2019 Sound Designer Visit Cardiac Rehabilitation Giselle Traore MD [address] [place] [address] [address]hab, [facility] Cardiac 02/17/2019 Sound Designer Visit Cardiac Rehabilitation Giselle Traore MD [address] [place] [address] [address]hab, [facility] Cardiac 02/22/2019 Sound Designer Visit Cardiac Rehabilitation Giselle Traore MD [address] [place] [address] [address]hab, [facility] Cardiac 02/24/2019 Sound Designer Visit Cardiac Rehabilitation Giselle Traore MD [address] [place] [address] [address]hab, [facility] Cardiac 02/27/2019 Sound Designer Visit Cardiac Rehabilitation Giselle Traore MD [address] [place] [address] [address]hab, [facility] Cardiac 03/01/2019 Sound Designer Visit Cardiac Rehabilitation Giselle Traore MD [address] [place] [address] [address]hab, [facility] Cardiac 03/03/2019 Sound Designer Visit Cardiac Rehabilitation Giselle Traore MD [address] [place] [address] [address]hab, [facility] Card[facility] 03/06/2019 Sound Designer Visit Cardiac Rehabilitation Giselle Traore MD [address] [place] [address] [address]hab, [facility] Cardiac 03/08/2019 Sound Designer Visit Cardiac Rehabilitation Giselle Traore MD [address] [place] [phone] [address]hab, [facility] Cardiac 03/09/2019 Office Visit Allergy & Immunology: Kelsi Stauffer Internal James Elkins MD [address] [place] [address] [phone] 03/10/2019 Office Visit Allergy & Immunology: Kelsi Stauffer MD [address] [facility] [address] [place] [address] [phone] 03/10/2019 Sound Designer Visit Cardiac Rehabilitation Giselle Traore MD [address] [place] [address] [phone] Rehab, [facility] Cardiac 03/13/2019 Sound Designer Visit Cardiac Rehabilitation Giselle Traore MD [address] [place] [address] [address]hab, [facility] Cardiac 03/15/2019 Sound Designer Visit Cardiac Rehabilitation Giselle Traore MD [address] [place] [phone] [address]hab, [facility] Cardiac 03/17/2019 Sound Designer Visit Cardiac Rehabilitation Giselle Traore MD [address] [place] [address] [address]hab, [facility] Cardiac 03/20/2019 Sound Designer Visit Cardiac Rehabilitation Giselle Traore MD [address] [place] [address] [address]hab, [facility] Cardiac 04/11/2019 Office Visit Family Medicine Aria Loja MD [address] [place] [phone] 07/03/2019 Office Visit Cardiology Giselle Traore MD [address] [place] [address] [phone] Name Type Priority Associated Diagnoses Order Schedule EKG-12 LEAD ROUTINE HEART STATION PADMA Dizziness Ordered: 02/03/2019 Bradycardia Health Maintenance Due Date Last Done Comments EYE EXAM 01/07/1950 FOOT EXAM 01/07/1958 DTaP,Tdap,and Td Vaccines (1 - 01/07/1959 Tdap) Zoster Recombinant Vaccine 01/07/1990 (SHINGRIX) (1 of 2) Medicare Wellness Visit 01/07/2005 PNEUMOCOCCAL VACCINES 65+ (1 of 2 01/07/2005 - PCV13) INFLUENZA VACCINE (#1) 2019 03/01/2018, 03/21/2017 HgA1C 06/08/2019 12/07/2018, 09/05/2018, 06/15/2018 LDL-C 12/08/2019 12/07/2018, 06/15/2018 URINE MICROALBUMIN 12/08/2019 12/07/2018 CREATININE (SERUM) 01/10/2020 01/09/2019, 12/07/2018, 11/22/2018, Additional history exists documented as of 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 Results Not on filedocumented in 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 Visit Diagnoses Diagnosis Bradycardia - Primary Other specified cardiac dysrhythmias Dizziness Dizziness and giddiness documented in 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 Insurance Payer Benefit Plan Subscriber ID Effective Phone Address Type / Group Dates MEDICARE MEDICARE PART xxxxxxxxxxx 2004-[place] [id number] [place] [phone] [employer] [id number] 2016[place] [address] documented as of 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
--- OUTSIDE RECORDS SUMMARY | 2019-02-19 17:08 | XMS REPORT | Summary of Care ---
:1940 Author Organization [facility] - [facility] Address [address] [place] [address] Care Team Providers Name Role Phone Aria Loja MD Primary Care Provider Reason for Visit Reason Comments NURSE VISIT EKG for dizziness and bradycardia Encounter Details Date Type Department Care Team Description 02/03/2019 Nurse Visit [facility] Giselle Traore MD [address] [place] [address] [address] [place] [address] Bradycardia (Primary Dx); Cardiology- Prosper Visit, Adc Nurse Dizziness [address] [place] [address], [address] [place] [address] Allergies Active Allergy Reactions Severity [...] 06/15/2018 Dizziness 06/15/2018 Coronary artery disease involving dry creek coronary artery of dry creek heart 06/15 without angina pectoris Essential [...] Date Type Specialty Care Team Description 02/06/2019 Test Fixture Designer Visit Cardiac Rehabilitation Giselle Traore MD [address] [place] [address] [phone] Rehab, [facility] Cardiac 02/08/2019 Test Fixture Designer Visit Cardiac Rehabilitation Giselle Traore MD [address] [place] [address] 97674 Rehab, [facility] Cardiac 02/10/2019 Test Fixture Designer Visit Cardiac Rehabilitation Giselle Traore MD [address] [place] [address] 32617 Rehab, [facility] Cardiac 02/13/2019 Test Fixture Designer Visit Cardiac Rehabilitation Giselle Traore MD [address] [place] [address] 18607 Rehab, [facility] Cardiac 02/13/2019 Office Visit Urology Lukas Daley [id number] [place] [address] [phone] 02/15/2019 Test Fixture Designer Visit Cardiac Rehabilitation Giselle Traore MD [address] [place] [address] 92[address] Rehab, [facility] Cardiac 02/17/2019 Test Fixture Designer Visit Cardiac Rehabilitation Giselle Traore MD [address] [place] [address] 59328 Rehab, [facility] Cardiac 02/22/2019 Test Fixture Designer Visit Cardiac Rehabilitation Giselle Traore MD [address] [place] [address] 64534 Rehab, [facility] Cardiac 02/24/2019 Test Fixture Designer Visit Cardiac Rehabilitation Giselle Traore MD [address] [place] [address] 82260 Rehab, [facility] Cardiac 02/27/2019 Test Fixture Designer Visit Cardiac Rehabilitation Giselle Traore MD [address] [place] [address] 86861 Rehab, [facility] Cardiac 03/01/2019 Test Fixture Designer Visit Cardiac Rehabilitation Giselle Traore MD [address] [place] [address] 90876 Rehab, [facility] Cardiac 03/03/2019 Test Fixture Designer Visit Cardiac Rehabilitation Giselle Traore MD [address] [place] [address] 83745 Rehab, [facility] Cardiac 03/06/2019 Test Fixture Designer Visit Cardiac Rehabilitation Giselle Traore MD [address] [place] [address] 42871 Rehab, [facility] Cardiac 03/08/2019 Test Fixture Designer Visit Cardiac Rehabilitation Giselle Traore MD [address] [place] [address] 33503 Rehab, [facility] Cardiac 03/09/2019 Office Visit Allergy & Immunology: Kelsi Stauffer Internal James Elkins MD [address] [place] [address] [phone] 03/10/2019 Office Visit Allergy & Immunology: Kelsi Stauffer MD [address] [facility] [address] [place] [address] [phone] 03/10/2019 Test Fixture Designer Visit Cardiac Rehabilitation Giselle Traore MD [address] [place] [address] [phone] Rehab, [facility] Cardiac 03/13/2019 Test Fixture Designer Visit Cardiac Rehabilitation Giselle Traore MD [address] [place] [address] 26861 Rehab, [facility] Cardiac 03/15/2019 Test Fixture Designer Visit Cardiac Rehabilitation Giselle Traore MD [address] [place] [address] 65416 Rehab, [facility] Cardiac 03/17/2019 Test Fixture Designer Visit Cardiac Rehabilitation Giselle Traore MD [address] [place] [address] 87986 Rehab, [facility] Cardiac 03/20/2019 Test Fixture Designer Visit Cardiac Rehabilitation Giselle Traore MD [address] [place] [address] 45018 Rehab, [facility] Cardiac 04/11/2019 Office Visit Family Medicine Aria Loja MD [address] [place] [phone] 07/03/2019 Office Visit Cardiology Giselle Traore MD [address] [place] [address] [phone] Name Type Priority Associated Diagnoses Order Schedule [...] BOX Medicare A & B nt 82 [id number] [place] [id number] [employer] [id number] 2016[place] [address] documented as of 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
--- OUTSIDE RECORDS SUMMARY | 2019-02-19 17:09 | XMS REPORT | Summary of Care ---
:1940 Author Organization [facility] Address [address] [place] [address] Care Team Providers Name Role Phone Aria Loja MD Primary Care Provider Reason for Visit Reason Comments CAD (Routine) Status Reason Specialty Diagnoses / Referred By Referred To Procedures Contact Contact Authorized IM-CARDIOVASCULAR Diagnoses Phase 2 CAD DM2 Giselle Traore, Rehab, [facility] DISEASE / Cardiac Procedures IN OUTPATIENT CARDIAC REHAB W/CONT ECG MONITORING PHASE 2/MONITORED EXERCISE Cardiac Rehabilitation [address] [place] [address] [address] [place] [address] Encounter Details Date Type Department Care Team Description 01/30/2019 Clubhouse Attendant Visit [facility] Giselle Traore MD [address] [facility] [address] [place], [place] [id number] Atherosclerosis of [place]go[place] coronary artery of [place] heart without angina pectoris; Cardiac Rehab, [facility] Cardiac 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, unspecified whether exterminator termite insulin use Rehabilitation- [place] [facility] [address] [place] [address] [address], [address] [place] [address] Allergies Active Allergy Reactions Severity Noted Date Comments Canagliflozin Other - See comments 01/18/2017 Genital mycotic infections Codeine Rash 06/15/2018 documented as of 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 (statuses as of 02/04/2019) Medications Medication Sig Dispensed Refills Start Date [...] capsuleIndications: mouth at Dizziness bedtime. isosorbide Take 60 mg by 0 02/03/2019 Discontinued mononitrate 60 mg mouth. 24 hr tablet documented as of 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 (statuses as of 02/04/2019) Active Problems Problem Noted Date Elevated sed rate 10/05/2018 Low ferritin 09/14/2018 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, without long-term current use of insulin Bradycardia 06/15/2018 Weakness 06/15/2018 Dizziness 06/15/2018 Coronary artery disease involving [place] coronary artery of [place]go[place] heart 06/15 without angina pectoris Essential hypertension 06/15/2018 PAF (paroxysmal atrial fibrillation) 06/15/2018 documented as of 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 (statuses as of 02/04/2019) Social History Tobacco Use Types Packs/Day Years [...] Date Type Specialty Care Team Description 02/06/2019 Clubhouse Attendant Visit Cardiac Rehabilitation Giselle Traore MD [address] [place] [address] [place] [address] Rehab, [facility] Cardiac 02/08/2019 Clubhouse Attendant Visit Cardiac Rehabilitation Giselle Traore MD [address] [place] [address] [place] [address] [phone] Rehab, [facility] Cardiac 02/10/2019 Clubhouse Attendant Visit Cardiac Rehabilitation Giselle Traore MD [address] [place] [address] [phone] Rehab, [facility] Cardiac 02/13/2019 Clubhouse Attendant Visit Cardiac Rehabilitation Giselle Traore MD [address] [place] [address] 904[address] [phone] Rehab, [facility] Cardiac 02/13/2019 Office Visit Urology Lukas Daley [id number] [place], [place] [address] 02/15/2019 Clubhouse Attendant Visit Cardiac Rehabilitation Giselle Traore MD [address] [place] [address] 78[address] Rehab, [facility] Cardiac 02/17/2019 Clubhouse Attendant Visit Cardiac Rehabilitation Giselle Traore MD [address] [place] [address] 77944 Rehab, [facility] Cardiac 02/22/2019 Clubhouse Attendant Visit Cardiac Rehabilitation Giselle Traore MD [address] [place] [address] 21189 Rehab, [facility] Cardiac 02/24/2019 Clubhouse Attendant Visit Cardiac Rehabilitation Giselle Traore MD [address] [place] [address] 86418 Rehab, [facility] Cardiac 02/27/2019 Clubhouse Attendant Visit Cardiac Rehabilitation Giselle Traore MD [address] [place] [address] 64899 Rehab, [facility] Cardiac 03/01/2019 Clubhouse Attendant Visit Cardiac Rehabilitation Giselle Traore MD [address] [place] [address] [place] [address] [phone] Rehab, [facility] Cardiac 03/03/2019 Clubhouse Attendant Visit Cardiac Rehabilitation Giselle Traore MD [address] [place] [address] [phone] Rehab, [facility] Cardiac 03/06/2019 Clubhouse Attendant Visit Cardiac Rehabilitation Giselle Traore MD [address] [place] [address] 844[address] [phone] Rehab, [facility] Cardiac 03/08/2019 Clubhouse Attendant Visit Cardiac Rehabilitation Giselle Traore MD [address] [place] [address] 06401 [phone] Rehab, [facility] Cardiac 03/09/2019 Office Visit Allergy & Immunology: Kelsi Stauffer MD [address] [facility] [address] [place], [place] [id number] [phone] 03/10/2019 Office Visit Allergy & Immunology: Kelsi Stauffer MD [address] [facility] [address] [place], [place] [address] [phone] 03/10/2019 Clubhouse Attendant Visit Cardiac Rehabilitation Giselle Traore MD [address] [place] [address] 38[address] [phone] Rehab, [facility] Cardiac 03/13/2019 Clubhouse Attendant Visit Cardiac Rehabilitation Giselle Traore MD [address] [place] [address] [place] [address] 66[address] [phone] Rehab, [facility] Cardiac 03/15/2019 Clubhouse Attendant Visit Cardiac Rehabilitation Giselle Traore MD [address] [place] [address] 76194 [phone] Rehab, [facility] Cardiac 03/17/2019 Clubhouse Attendant Visit Cardiac Rehabilitation Giselle Traore MD [address] [address] [phone] Rehab, [facility] Cardiac 03/20/2019 Clubhouse Attendant Visit Cardiac Rehabilitation Giselle Traore MD [address] [address] [phone] Rehab, [facility] Cardiac 04/11/2019 Office Visit Family Medicine Aria Loja MD [address] [place] [address] [phone] 07/03/2019 Office Visit Cardiology Giselle Traore MD [address] [id number] Health Maintenance Due Date Last Done Comments [...] Date/Time Associated Diagnosis Comments POCT GLUCOSE Routine 01/30/2019 10:09 AM Results for this (AUTOMATED) CDT procedure are in the results section. documented in 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 Results POCT GLUCOSE (AUTOMATED) (01/30/2019 10:09 AM CDT) POCT GLU 270 (H) 70 - 110 mg/dL [facility] Specimen Blood Performing Organization Address City/State/Zipcode Phone Number [facility] CLIA: [id number], [address] [place] [address] [facility] documented in 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 Visit Diagnoses Diagnosis Atherosclerosis of [place] coronary artery of [place] heart without angina pectoris 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, unspecified whether senior care insulin use documented in 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 Insurance Payer Benefit Plan Subscriber ID Effective Phone Address Type / Group Dates MEDICARE MEDICARE PART xxxxxxxxxxx 2004-[place] [phone] Medicare A & B nt 82 [id number] [place] [phone] [employer] [id number] 2016- Indemnity ent documented as of 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
--- OUTSIDE RECORDS SUMMARY | 2019-02-19 17:09 | XMS REPORT | Summary of Care ---
:1940 Author Organization [facility] - [facility] Address [address] [place] [address] Care Team Providers Name Role Phone Aria Loja MD Primary Care Provider Reason for Visit Reason Comments NURSE VISIT EKG for dizziness and bradycardia Encounter Details Date Type Department Care Team Description 02/03/2019 Nurse Visit [facility] Giselle Traore MD [address] [place] [address] [address] [place] [address] Bradycardia (Primary Dx); Cardiology- [place] Visit, Adc Nurse Dizziness [address] [place] [address], [address] [place] [address] Allergies Active Allergy Reactions Severity [...] 06/15/2018 Dizziness 06/15/2018 Coronary artery disease involving solomon coronary artery of [place]omon heart 06/15 without angina pectoris Essential hypertension [...] Date Type Specialty Care Team Description 02/06/2019 Shank Scourer Visit Cardiac Rehabilitation Giselle Traore MD [address] [place] [address] [phone] Rehab, [facility] Cardiac 02/08/2019 Shank Scourer Visit Cardiac Rehabilitation Giselle Traore MD [address] [place] [address] 19462 Rehab, [facility] Cardiac 02/10/2019 Shank Scourer Visit Cardiac Rehabilitation Giselle Traore MD [address] [place] [address] 97866 Rehab, [facility] Cardiac 02/13/2019 Shank Scourer Visit Cardiac Rehabilitation Giselle Traore MD [address] [place] [address] 88745 Rehab, [facility] Cardiac 02/13/2019 Office Visit Urology Lukas Daley [id number] [place] [address] [phone] 02/15/2019 Shank Scourer Visit Cardiac Rehabilitation Giselle Traore MD [address] [place] [address] 00461 Rehab, [facility] Cardiac 02/17/2019 Shank Scourer Visit Cardiac Rehabilitation Giselle Traore MD [address] [place] [address] 28340 Rehab, [facility] Cardiac 02/22/2019 Shank Scourer Visit Cardiac Rehabilitation Giselle Traore MD [address] [place] [address] 92258 Rehab, [facility] Cardiac 02/24/2019 Shank Scourer Visit Cardiac Rehabilitation Giselle Traore MD [address] [place] [address] 19706 Rehab, [facility] Cardiac 02/27/2019 Shank Scourer Visit Cardiac Rehabilitation Giselle Traore MD [address] [place] [address] 25749 Rehab, [facility] Cardiac 03/01/2019 Shank Scourer Visit Cardiac Rehabilitation Giselle Traore MD [address] [place] [address] 80815 Rehab, [facility] Cardiac 03/03/2019 Shank Scourer Visit Cardiac Rehabilitation Giselle Traore MD [address] [place] [address] 72907 Rehab, [facility] Cardiac 03/06/2019 Shank Scourer Visit Cardiac Rehabilitation Giselle Traore MD [address] [place] [address] 28135 Rehab, [facility] Cardiac 03/08/2019 Shank Scourer Visit Cardiac Rehabilitation Giselle Traore MD [address] [place] [address] 775[address] Rehab, [facility] Cardiac 03/09/2019 Office Visit Allergy & Immunology: Kelsi Stauffer Internal James Elkins MD [address] [place] [address] [phone] 03/10/2019 Office Visit Allergy & Immunology: Kelsi Stauffer MD [address] [facility] [address] [place] [address] [phone] 03/10/2019 Shank Scourer Visit Cardiac Rehabilitation Giselle Traore MD [address] [place] [address] 90471 [phone] Rehab, [facility] Cardiac 03/13/2019 Shank Scourer Visit Cardiac Rehabilitation Giselle Traore MD [address] [place] [address] 04419 Rehab, [facility] Cardiac 03/15/2019 Shank Scourer Visit Cardiac Rehabilitation Giselle Traore MD [address] [place] [address] 53564 Rehab, [facility] Cardiac 03/17/2019 Shank Scourer Visit Cardiac Rehabilitation Giselle Traore MD [address] [place] [address] 30865 Rehab, [facility] Cardiac 03/20/2019 Shank Scourer Visit Cardiac Rehabilitation Giselle Traore MD [address] [place] [address] 57671 Rehab, [facility] Cardiac 04/11/2019 Office Visit Family Medicine Aria Loja MD [address] [place] [phone] 07/03/2019 Office Visit Cardiology Giselle Traore MD [address] [place] [address] 88951 [phone] Name Type Priority Associated Diagnoses Order Schedule [...] BOX Medicare A & B nt 82 [id number] [place] [id number] [employer] [id number] 2016[place] [address] documented as of 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
--- OUTSIDE RECORDS SUMMARY | 2019-02-19 17:09 | XMS REPORT | Summary of Care ---
:1940 Author Organization [facility] Address [address] [place] [address] Care Team Providers Name Role Phone Aria Loja MD Primary Care Provider Reason for Visit Reason Comments CAD (Routine) Status Reason Specialty Diagnoses / Referred By Referred To Procedures Contact Contact Authorized IM-CARDIOVASCULAR Diagnoses Phase 2 CAD DM2 Giselle Traore, Rehab, [facility] DISEASE / Cardiac Procedures [place] OUTPATIENT CARDIAC REHAB W/CONT ECG MONITORING PHASE 2/MONITORED EXERCISE Cardiac Rehabilitation [address] [place] [address] [address] [place] [address] Encounter Details Date Type Department Care Team Description 02/03/2019 Transportation Program Director Visit [facility] Giselle Traore MD [address] [facility] [address] [place], [place] [address] Atherosclerosis of [place] coronary artery without angina pectoris, unspecified whether [place] or transplanted heart; Cardiac Rehab, [facility] Cardiac 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, unspecified whether vault worker insulin use Rehabilitation- [facility] [address] [place] [address] , [address] [place] [address] Allergies Active Allergy Reactions Severity Noted Date Comments Canagliflozin Other - See comments 01/18/2017 Genital mycotic infections Codeine Rash 06/15/2018 documented as of 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 (statuses as of 02/03/2019) Medications Medication Sig Dispensed Refills Start Date End Date Status pantoprazole 40 mg EC Take 40 mg [...] 06/15/2018 Dizziness 06/15/2018 Coronary artery disease involving [place] coronary artery of [place] heart 06/15 without angina pectoris Essential hypertension [...] Date Type Specialty Care Team Description 02/06/2019 Transportation Program Director Visit Cardiac Rehabilitation Giselle Traore MD [address] [facility] [address] [place] [address] [phone] Rehab, [facility] Cardiac 02/08/2019 Transportation Program Director Visit Cardiac Rehabilitation Giselle Traore MD [address] [place] [address] [phone] Rehab, [facility] Cardiac 02/10/2019 Transportation Program Director Visit Cardiac Rehabilitation Giselle Traore MD [address] [place] [address] 990[address] Rehab, [facility] Cardiac 02/13/2019 Transportation Program Director Visit Cardiac Rehabilitation Giselle Traore MD [address] [place] [address] 72417 [phone] Rehab, [facility] Cardiac 02/13/2019 Office Visit Urology Lukas Daley [address] [facility] [id number] [place], [place] [address] 02/15/2019 Transportation Program Director Visit Cardiac Rehabilitation Giselle Traore MD [address] [place] [address] 29[address] [phone] Rehab, [facility] Cardiac 02/17/2019 Transportation Program Director Visit Cardiac Rehabilitation Giselle Traore MD [address] [place] [address] 85316 [phone] Rehab, [facility] Cardiac 02/22/2019 Transportation Program Director Visit Cardiac Rehabilitation Giselle Traore MD [address] [place] [address] 60595 [phone] Rehab, [facility] Cardiac 02/24/2019 Transportation Program Director Visit Cardiac Rehabilitation Giselle Traore MD [address] [place] [address] 95228 Rehab, [facility] Cardiac 02/27/2019 Transportation Program Director Visit Cardiac Rehabilitation Giselle Traore MD [address] [place] [address] 16421 Rehab, [facility] Cardiac 03/01/2019 Transportation Program Director Visit Cardiac Rehabilitation Giselle Traore MD [address] [place] [address] 78344 [phone] Rehab, [facility] Cardiac 03/03/2019 Transportation Program Director Visit Cardiac Rehabilitation Giselle Traore MD [address] [place] [address] 46842 [phone] Rehab, [facility] Cardiac 03/06/2019 Transportation Program Director Visit Cardiac Rehabilitation Giselle Traore MD [address] [place] [address] 00708 [phone] Rehab, [facility] Cardiac 03/08/2019 Transportation Program Director Visit Cardiac Rehabilitation Giselle Traore MD [address] [place] [address] 422205 Rehab, [facility] Cardiac 03/09/2019 Office Visit Allergy & Immunology: Kelsi Stauffer Internal James Elkins MD [address] [place], [place] [address] [phone] 03/10/2019 Office Visit Allergy & Immunology: Kelsi Stauffer MD [address] [place], [place] [phone] 03/10/2019 Transportation Program Director Visit Cardiac Rehabilitation Giselle Traore MD [address] [place] [address] 11389 [phone] Rehab, [facility] Cardiac 03/13/2019 Transportation Program Director Visit Cardiac Rehabilitation Giselle Traore MD [address] [place] [address] 67417 [phone] Rehab, [facility] Cardiac 03/15/2019 Transportation Program Director Visit Cardiac Rehabilitation Giselle Traore MD [address] [place] [address] 10803 [phone] Rehab, [facility] Cardiac 03/17/2019 Transportation Program Director Visit Cardiac Rehabilitation Giselle Traore MD [address] [place] [address] 19837 [phone] Rehab, [facility] Cardiac 03/20/2019 Transportation Program Director Visit Cardiac Rehabilitation Giselle Traore MD [address] [facility] [address] [place] [phone] Rehab, [facility] Cardiac 04/11/2019 Office Visit Family Medicine Aria Loja MD [address] [place] [address] [facility] [place] [phone] 07/03/2019 Office Visit Cardiology Giselle Traore MD [address] [facility] [address] [place], [place] [phone] Health Maintenance Due Date Last Done Comments [...] Date/Time Associated Diagnosis Comments POCT GLUCOSE Routine 02/03/2019 10:13 AM Results for this (AUTOMATED) CDT procedure are in the results section. documented in 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 Results POCT GLUCOSE (AUTOMATED) (02/03/2019 10:13 AM CDT) POCT GLU 146 (H) 70 - 110 mg/dL [facility] Specimen Blood Performing Organization Address City/State/Zipcode Phone Number [facility] CLIA: [id number], [address] [place] [address] [facility] documented in 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 Visit Diagnoses Diagnosis Atherosclerosis of [place] coronary artery without angina pectoris, unspecified whether [place] or transplanted heart 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, unspecified whether vault worker insulin use documented in 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 Insurance Payer Benefit Plan Subscriber ID Effective Phone Address Type / Group Dates MEDICARE MEDICARE PART xxxxxxxxxxx 2004-Walter [phone] Medicare A & B 82 [id number] [place] [phone] NEW ERA LIFE NEW ERA LIFE [id number] 2016-Pres [place] ent documented as of 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
--- OUTSIDE RECORDS SUMMARY | 2019-02-19 17:09 | XMS REPORT | Summary of Care ---
:1940 Author Organization [facility] Address [address] [place] [address] Care Team Providers Name Role Phone Aria Loja MD Primary Care Provider Reason for Visit Reason Comments CAD (Routine) Status Reason Specialty Diagnoses / Referred By Referred To Procedures Contact Contact Authorized IM-CARDIOVASCULAR Diagnoses Phase 2 CAD DM2 Giselle Traore, Rehab, [facility] DISEASE / Cardiac Procedures [place] OUTPATIENT CARDIAC REHAB W/CONT ECG MONITORING PHASE 2/MONITORED EXERCISE Cardiac Rehabilitation [address] [place] [address] [address] [place] [address] Encounter Details Date Type Department Care Team Description 01/30/2019 Repeater Operator Visit [facility] Giselle Traore MD [address] [facility] [address] [place], [place] [phone] Atherosclerosis of [place] coronary artery of [place] heart without angina pectoris; Cardiac Rehab, [facility] Cardiac 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, unspecified whether 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 exterminator insulin 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 Rehabilitation- [facility] [address] [place] [address] [address], [address] [place] [address] Allergies Active Allergy Reactions Severity [...] 06/15/2018 Dizziness 06/15/2018 Coronary artery disease involving [place] coronary artery of [place] heart 06/15 without angina pectoris Essential hypertension [...] Date Type Specialty Care Team Description 02/06/2019 Repeater Operator Visit Cardiac Rehabilitation Giselle Traore MD [address] [place] [address] [place] [address] Rehab, [facility] Cardiac 02/08/2019 Repeater Operator Visit Cardiac Rehabilitation Giselle Traore MD [address] [place] [address] [place] [address] [phone] Rehab, [facility] Cardiac 02/10/2019 Repeater Operator Visit Cardiac Rehabilitation Giselle Traore MD [address] [place] [address] [phone] Rehab, [facility] Cardiac 02/13/2019 Repeater Operator Visit Cardiac Rehabilitation Giselle Traore MD [address] [place] [address] 82091 [phone] Rehab, [facility] Cardiac 02/13/2019 Office Visit Urology Lukas Daley [id number] [place], [place] [address] 02/15/2019 Repeater Operator Visit Cardiac Rehabilitation Giselle Traore MD [address] [place] [address] [address]hab, [facility] Cardiac 02/17/2019 Repeater Operator Visit Cardiac Rehabilitation Giselle Traore MD [address] [place] [address] [address]hab, [facility] Cardiac 02/22/2019 Repeater Operator Visit Cardiac Rehabilitation Giselle Traore MD [address] [place] [address] [address]hab, [facility] Cardiac 02/24/2019 Repeater Operator Visit Cardiac Rehabilitation Giselle Traore MD [address] [place] [address] [address], [facility] Cardiac 02/27/2019 Repeater Operator Visit Cardiac Rehabilitation Giselle Traore MD [address] [place] [address] [address]hab, [facility] Cardiac 03/01/2019 Repeater Operator Visit Cardiac Rehabilitation Giselle Traore MD [address] [place] [address] [place] [address] 15912 [phone] Rehab, [facility] Cardiac 03/03/2019 Repeater Operator Visit Cardiac Rehabilitation Giselle Traore MD [address] [place] [address] 54577 [phone] Rehab, [facility] Cardiac 03/06/2019 Repeater Operator Visit Cardiac Rehabilitation Giselle Traore MD [address] [place] [address] 54333 [phone] Rehab, [facility] Cardiac 03/08/2019 Repeater Operator Visit Cardiac Rehabilitation Giselle Traore MD [address] [place] [address] 37229 [phone] Rehab, [facility] Cardiac 03/09/2019 Office Visit Allergy & Immunology: Kelsi Stauffer MD 400 [facility] [address] [place], [place] [address] [phone] 03/10/2019 Office Visit Allergy & Immunology: Kelsi Stauffer MD 400 [facility] [address] [place], [place] [address] [phone] 03/10/2019 Repeater Operator Visit Cardiac Rehabilitation Giselle Traore MD [address] [place] [address] 21954 [phone] Rehab, [facility] Cardiac 03/13/2019 Repeater Operator Visit Cardiac Rehabilitation Giselle Traore MD [address] [place] [address] [place] [address] 96854 [phone] Rehab, [facility] Cardiac 03/15/2019 Repeater Operator Visit Cardiac Rehabilitation Giselle Traore MD [address] [place] [address] 14140 [phone] Rehab, [facility] Cardiac 03/17/2019 Repeater Operator Visit Cardiac Rehabilitation Giselle Traore MD [address] [address] [phone] Rehab, [facility] Cardiac 03/20/2019 Repeater Operator Visit Cardiac Rehabilitation Giselle Traore MD [address] [address] [phone] Rehab, [facility] Cardiac 04/11/2019 Office Visit Family Medicine Aria Loja MD [address] [place] [address] [phone] 07/03/2019 Office Visit Cardiology Giselle Traore MD [address] [id number] Health Maintenance Due Date Last Done Comments [...] GLU 270 (H) 70 - 110 mg/dL [facility] Specimen Blood Performing Organization Address City/State/Zipcode Phone Number [facility] CLIA: [id number], [address] [place] [address] [phone] [facility] documented in 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 Visit Diagnoses Diagnosis Atherosclerosis of [place] coronary artery of [place] heart without angina pectoris 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, unspecified whether mcc insulin use documented in 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 Insurance Payer Benefit Plan Subscriber ID Effective Phone Address Type / Group Dates MEDICARE MEDICARE PART xxxxxxxxxxx 2004-[place] [phone] Medicare A & B nt 82 [id number] [place] [phone] NEW ERA LIFE NEW ERA LIFE [id number] 2016- Indemnity ent documented as of 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
--- OUTSIDE RECORDS SUMMARY | 2019-02-19 17:09 | XMS REPORT | Summary of Care ---
:1940 Author Organization [facility] Address [address] [place] [address] Care Team Providers Name Role Phone Aria Loja MD Primary Care Provider Reason for Visit Reason Comments CAD (Routine) Status Reason Specialty Diagnoses / Referred By Referred To Procedures Contact Contact Authorized IM-CARDIOVASCULAR Diagnoses Phase 2 CAD DM2 Giselle Traore, Rehab, [facility] DISEASE / Cardiac Procedures [place] OUTPATIENT CARDIAC REHAB W/CONT ECG MONITORING PHASE 2/MONITORED EXERCISE Cardiac Rehabilitation [address] [place] [address] [address] [place] [address] Encounter Details Date Type Department Care Team Description 02/03/2019 Retail Manager In Training Visit [facility] Giselle Traore MD 146 [facility] [address] [place], [place] [address] Atherosclerosis of [place] coronary artery without angina pectoris, unspecified whether [place] or transplanted heart; Cardiac Rehab, [facility] Cardiac 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, unspecified whether manager long term care insulin use Rehabilitation- [facility] [place] [facility] [address] [place] [address] , [address] [place] [address] Allergies Active Allergy Reactions Severity [...] 06/15/2018 Dizziness 06/15/2018 Coronary artery disease involving [place] coronary artery of [place] heart 06/15 without angina pectoris Essential hypertension [...] Date Type Specialty Care Team Description 02/06/2019 Retail Manager In Training Visit Cardiac Rehabilitation Giselle Traore MD [address] [facility] [address] [place] [address] [phone] Rehab, [facility] Cardiac 02/08/2019 Retail Manager In Training Visit Cardiac Rehabilitation Giselle Traore MD [address] [place] [address] [phone] Rehab, [facility] Cardiac 02/10/2019 Retail Manager In Training Visit Cardiac Rehabilitation Giselle Traore MD [address] [place] [address]05 [address]hab, [facility] Cardiac 02/13/2019 Retail Manager In Training Visit Cardiac Rehabilitation Giselle Traore MD [address] [place] [address] 82635 [phone] Rehab, [facility] Cardiac 02/13/2019 Office Visit Urology Lukas Daley [address] [facility] [id number] [place], [place] [address] 02/15/2019 Retail Manager In Training Visit Cardiac Rehabilitation Giselle Traore MD [address] [place] [address] 82971 [phone] Rehab, [facility] Cardiac 02/17/2019 Retail Manager In Training Visit Cardiac Rehabilitation Giselle Traore MD [address] [place] [address] 16017 [phone] Rehab, [facility] Cardiac 02/22/2019 Retail Manager In Training Visit Cardiac Rehabilitation Giselle Traore MD [address] [place] [address] 68165 [phone] Rehab, [facility] Cardiac 02/24/2019 Retail Manager In Training Visit Cardiac Rehabilitation Giselle Traore MD [address] [place] [address] [address]hab, [facility] Cardiac 02/27/2019 Retail Manager In Training Visit Cardiac Rehabilitation Giselle Traore MD [address] [place] [address] [address]hab, [facility] Cardiac 03/01/2019 Retail Manager In Training Visit Cardiac Rehabilitation Giselle Traore MD [address] [place] [address] 46171 [phone] Rehab, [facility] Cardiac 03/03/2019 Retail Manager In Training Visit Cardiac Rehabilitation Giselle Traore MD [address] [place] [address] 88106 [phone] Rehab, [facility] Cardiac 03/06/2019 Retail Manager In Training Visit Cardiac Rehabilitation Giselle Traore MD [address] [place] [address] 78106 [phone] Rehab, [facility] Cardiac 03/08/2019 Retail Manager In Training Visit Cardiac Rehabilitation Giselle Traore MD [address] [place] [address] [phone] [address]hab, [facility] Cardiac 03/09/2019 Office Visit Allergy & Immunology: Kelsi Stauffer Internal James Elkins MD [address] [place], [place] [address] [phone] 03/10/2019 Office Visit Allergy & Immunology: Kelsi Stauffer MD [address] [place], [place] [address] 03/10/2019 Retail Manager In Training Visit Cardiac Rehabilitation Giselle Traore MD [address] [place] [address] 74776 [phone] Rehab, [facility] Cardiac 03/13/2019 Retail Manager In Training Visit Cardiac Rehabilitation Giselle Traore MD [address] [place] [address] 40507 [phone] Rehab, [facility] Cardiac 03/15/2019 Retail Manager In Training Visit Cardiac Rehabilitation Giselle Traore MD [address] [place] [address] 26330 [phone] Rehab, [facility] Cardiac 03/17/2019 Retail Manager In Training Visit Cardiac Rehabilitation Giselle Traore MD [address] [place] [address] 66561 [phone] Rehab, [facility] Cardiac 03/20/2019 Retail Manager In Training Visit Cardiac Rehabilitation Giselle Traore MD 146 [facility] [address] [place] [phone] Rehab, [facility] Cardiac 04/11/2019 Office Visit Family Medicine Aria Loja MD [address] [place] [address] [facility] [place] [phone] 07/03/2019 Office Visit Cardiology Giselle Traore MD [address] [facility] [address] [place], [place] [phone] Health Maintenance Due Date Last Done Comments [...] GLU 146 (H) 70 - 110 mg/dL [facility] Specimen Blood Performing Organization Address City/State/Zipcode Phone Number [facility] CLIA: [id number], [address] [place] [address]16 [phone] [facility] documented in 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 Visit Diagnoses Diagnosis Atherosclerosis of [place] coronary artery without angina pectoris, unspecified whether [place] or transplanted heart 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, unspecified whether manager long term care insulin use documented in 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 Insurance Payer Benefit Plan Subscriber ID Effective Phone Address Type / Group Dates MEDICARE MEDICARE PART xxxxxxxxxxx 2004-Walter [phone] Medicare A & B 82 [id number] [place] [phone] NEW [employer] LIFE [employer] LIFE [id number] 2016-Pres [place] ent documented as of 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
--- OUTSIDE RECORDS SUMMARY | 2019-02-19 17:09 | XMS REPORT | Summary of Care ---
:1940 Author Organization [facility] Address [address] [place] [address] Care Team Providers Name Role Phone Aria Loja MD Primary Care Provider Reason for Visit Reason Comments CAD (Routine) Status Reason Specialty Diagnoses / Referred By Referred To Procedures Contact Contact Authorized IM-CARDIOVASCULAR Diagnoses Phase 2 CAD DM2 Giselle Traore, Rehab, Adc DISEASE / Cardiac Procedures [place] OUTPATIENT CARDIAC REHAB W/CONT ECG MONITORING PHASE 2/MONITORED EXERCISE Cardiac Rehabilitation [address] [place] [address] [address] [place] [address] Encounter Details Date Type Department Care Team Description 02/03/2019 Roll Forming Machine Operator Visit [facility] Giselle Traore MD [address] [facility] [address] [place], [place] [address] Atherosclerosis of saxman coronary artery without angina pectoris, unspecified whether saxman or transplanted heart; Cardiac Rehab, Adc Cardiac 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, unspecified 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 Rehabilitation- [place] [facility] [address] [place] [address] , [address] [place] [address] Allergies Active Allergy Reactions Severity [...] 06/15/2018 Dizziness 06/15/2018 Coronary artery disease involving saxman coronary artery of saxman heart 06/15 without angina pectoris Essential hypertension [...] Date Type Specialty Care Team Description 02/06/2019 Roll Forming Machine Operator Visit Cardiac Rehabilitation Giselle Traore MD [address] [facility] [address] [place] [address] [phone] Rehab, Adc Cardiac 02/08/2019 Roll Forming Machine Operator Visit Cardiac Rehabilitation Giselle Traore MD [address] [place] [address] 149[address] [phone] Rehab, [facility] Cardiac 02/10/2019 Roll Forming Machine Operator Visit Cardiac Rehabilitation Giselle Traore MD [address] [place] [address] Rehab, [facility] Cardiac 02/13/2019 Roll Forming Machine Operator Visit Cardiac Rehabilitation Giselle Traore MD [address] [place] [address] 42028 [phone] Rehab, [facility] Cardiac 02/13/2019 Office Visit Urology Lukas Daley [address] [facility] OT[address] [place], [place] [address] 02/15/2019 Roll Forming Machine Operator Visit Cardiac Rehabilitation Giselle Traore MD [address] [place] [address] 66227 [phone] Rehab, [facility] Cardiac 02/17/2019 Roll Forming Machine Operator Visit Cardiac Rehabilitation Giselle Traore MD [address] [place] [address] 64063 [phone] Rehab, [facility] Cardiac 02/22/2019 Roll Forming Machine Operator Visit Cardiac Rehabilitation Giselle Traore MD [address] [place] [address] 88257 [phone] Rehab, [facility] Cardiac 02/24/2019 Roll Forming Machine Operator Visit Cardiac Rehabilitation Giselle Tarore MD [address] [place] [address] 615[address] [address]hab, [facility] Cardiac 02/27/2019 Roll Forming Machine Operator Visit Cardiac Rehabilitation Giselle Traore MD [address] [place] [address] [address]hab, [facility] Cardiac 03/01/2019 Roll Forming Machine Operator Visit Cardiac Rehabilitation Giselle Traore MD [address] [place] [address] 66659 [phone] Rehab, [facility] Cardiac 03/03/2019 Roll Forming Machine Operator Visit Cardiac Rehabilitation Giselle Traore MD [address] [place] [address] 57213 [phone] Rehab, [facility] Cardiac 03/06/2019 Roll Forming Machine Operator Visit Cardiac Rehabilitation Giselle Traore MD [address] [place] [address] 27476 [phone] Rehab, [facility] Cardiac 03/08/2019 Roll Forming Machine Operator Visit Cardiac Rehabilitation Giselle Traore MD [address] [place] [address] [phone] Rehab, [facility] Cardiac 03/09/2019 Office Visit Allergy & Immunology: Kelsi Stauffer Internal James Elkins MD [address] [place], [place] [id number] [phone] 03/10/2019 Office Visit Allergy & Immunology: Kelsi Stauffer MD [address] [place], [place] [id number] 03/10/2019 Roll Forming Machine Operator Visit Cardiac Rehabilitation Giselle Traore MD [address] [place] [address] 82812 [phone] Rehab, [facility] Cardiac 03/13/2019 Roll Forming Machine Operator Visit Cardiac Rehabilitation Giselle Traore MD [address] [place] [address] 52177 [phone] Rehab, [facility] Cardiac 03/15/2019 Roll Forming Machine Operator Visit Cardiac Rehabilitation Giselle Traore MD [address] [place] [address] 12135 [phone] Rehab, [facility] Cardiac 03/17/2019 Roll Forming Machine Operator Visit Cardiac Rehabilitation Giselle Traore MD [address] [place] [address] 05970 [phone] Rehab, [facility] Cardiac 03/20/2019 Roll Forming Machine Operator Visit Cardiac Rehabilitation Giselle Traore MD [address] [facility] [address] [place] [address] [phone] Rehab, Adc Cardiac 04/11/2019 Office Visit Family Medicine Aria Loja MD [address] [place] [address] [facility] [place] [phone] 07/03/2019 Office Visit Cardiology Giselle Traore MD [address] [facility] [address] [place], [place] [phone] Health Maintenance Due Date Last Done Comments [...] GLU 146 (H) 70 - 110 mg/dL [facility] Specimen Blood Performing Organization Address City/State/Zipcode Phone Number [facility] CLIA: [id number], [address] [place] [address] [phone] 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 Medicare A & B 82 [id number] [place] [phone] NEW ERA LIFE NEW ERA LIFE [id number] 2016-Pres [place] ent documented as of 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
--- OUTSIDE RECORDS SUMMARY | 2019-02-19 17:10 | XMS REPORT | Summary of Care ---
:1940 Author Organization [facility] Address [address] [place] [address] Care Team Providers Name Role Phone Aria Loja MD Primary Care Provider Reason for Visit Reason Comments Follow-up 3 Month Encounter Details Date Type Department Care Team Description 12/27/2018 Office Visit [facility] Giselle Traore MD Coronary artery disease involving solomon coronary artery of solomon heart without angina pectoris (Primary Dx); Cardiology- [address] Essential hypertension; [address] [place] [address] DRIVE PAF (paroxysmal atrial fibrillation); Drive, [address] 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, without long-term current use of insulin; [place] [address] Hyperlipidemia, unspecified hyperlipidemia type [address] Allergies Active Allergy Reactions Severity Noted Date Comments Canagliflozin Other - See comments 01/18/2017 Genital mycotic infections Codeine Rash 06/15/2018 documented as of 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 (statuses as of 02/06/2019) Medications Medication Sig Dispensed Refills Start Date [...] capsule by mouth 3 (three) times daily. isosorbide Take 60 mg by 0 02/03/2019 Discontinued mononitrate 60 mg mouth. 24 hr tablet metformin ER 500 mg Take 1 tablet 30 tablet 5 10/03/2018 01/02/2019 Discontinued 24 hr by mouth tabletIndications: daily with Type 2 diabetes breakfast. mellitus with hyperglycemia, without long-term current use of insulin evolocumab (REPATHA inject 140 mg 2 Syringe 3 10/03/2018 12/27/2018 Discontinued SYRINGE) 140 mg/mL under the SyrgIndications: skin every 2 Coronary artery (two) weeks. disease involving solomon coronary artery of solomon heart with angina pectoris tamsulosin 0.4 mg Take 1 90 capsule 3 10/10/2018 01/12/2019 Discontinued 24 hr capsule by capsuleIndications: mouth daily. Foul smelling urine, Orchalgia documented as of 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 (statuses as of 02/06/2019) Active Problems Problem Noted Date Elevated sed rate 10/05/2018 Low ferritin 09/14/2018 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, without long-term current use of insulin Bradycardia 06/15/2018 Weakness 06/15/2018 Dizziness 06/15/2018 Coronary artery disease involving solomon coronary artery of solomon heart 06/15 without angina pectoris Essential hypertension 06/15/2018 PAF (paroxysmal atrial fibrillation) 06/15/2018 documented as of 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 (statuses as of 02/06/2019) Social History Tobacco Use Types Packs/Day Years [...] Aria Loja History of Present Illness: Dave Moreland is a 78 years old male with history of paroxysmal Afib, CAD s/p PCI with 3 stents (11 and 3 years ago), and HTN. In 05/[address] he was admitted to [facility] for constant weakness especially leg muscle. Feeling dizzy and lightheaded when walking but more so when getting up. No chest pain. In [facility] EKG showed sinus bradycardia in high 40s and low 50s. Nuclear stress test showed a small ischemia. Underwent LHC and RCA PCI [facility] in 06/2018. [place] better after PCI. 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 Coronary artery disease involving solomon coronary artery of solomon heart without angina pectoris I25.10 414.01 2. Essential hypertension I10 401.9 3. PAF (paroxysmal atrial fibrillation) I48.0 427.31 4. 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, without long-term current use of insulin E11.8 250.90 5. Hyperlipidemia, unspecified hyperlipidemia type E78.5 272.4 CAD--s/p multiple PCI with most recent one in 06/2018. Repeat C showed no significant stenosis. Will resume cardiac rehab. Cannot tolerate statins. Cannot afford zetia/repatha. Not on BB due to bradycardia. Continue ASA and plavix. PAfib--The burden is low. Remains in normal sinus rhythm. Due to nose bleed and DAPT, will hold Xarelto. HTN--Well controlled with lisinopril. Patient was counseled for lifestyle modifications including: diet and exercise. RTC 6 months Addendum---02/06/2019---Moderate cardiac risk. OK to hold ASA/plavix if needed. Giselle Traore MD, FAC, RAFAELA Content Checker, Division of Cardiology [facility] documented in 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 Plan of Treatment Date Type Specialty Care Team Description 02/08/2019 Arabic Teacher Visit Cardiac Rehabilitation Giselle Traore MD [address] [place] [address] [phone] Rehab, [facility] Cardiac 02/10/2019 Arabic Teacher Visit Cardiac Rehabilitation Giselle Traore MD [address] [place] [address] 77318 [phone] Rehab, [facility] Cardiac 02/13/2019 Arabic Teacher Visit Cardiac Rehabilitation Giselle Traore MD [address] [place] [address] Rehab, [facility] Cardiac 02/13/2019 Office Visit Urology Lukas Daley [address] [facility] [id number] [place], [place] [address] 02/15/2019 Arabic Teacher Visit Cardiac Rehabilitation Giselle Traore MD [address] [place] [address] [address]hab, [facility] Cardiac 02/17/2019 Arabic Teacher Visit Cardiac Rehabilitation Giselle Traore MD [address] [place] [address] 98[address] [address]hab, [facility] Cardiac 02/22/2019 Arabic Teacher Visit Cardiac Rehabilitation Giselle Traore MD [address] [place] [address] [place] [address] Rehab, [facility] Cardiac 02/24/2019 Arabic Teacher Visit Cardiac Rehabilitation Giselle Traore MD [address] [place] [address] [place] [address] 98950 [phone] Rehab, [facility] Cardiac 02/27/2019 Arabic Teacher Visit Cardiac Rehabilitation Giselle Traore MD [address] [place] [address] [place] [address] 91219 [phone] Rehab, [facility] Cardiac 03/01/2019 Arabic Teacher Visit Cardiac Rehabilitation Giselle Traore MD [address] [place] [address] [place] [address] [phone] Rehab, [facility] Cardiac 03/03/2019 Arabic Teacher Visit Cardiac Rehabilitation Giselle Traore MD [address] [place] [address] [place] [address] 04804 [phone] Rehab, [facility] Cardiac 03/06/2019 Arabic Teacher Visit Cardiac Rehabilitation Giselle Traore MD [address] [place] [address] 23704 [phone] Rehab, [facility] Cardiac 03/08/2019 Arabic Teacher Visit Cardiac Rehabilitation Giselle Traore MD [address] [place] [address] [place] [address] [address]hab, [facility] Cardiac 03/09/2019 Office Visit Allergy & Immunology: Kelsi Stauffer Internal James Elkins MD [address] [place], [place] [phone] 03/10/2019 Office Visit Allergy & Immunology: Kelsi Stauffer MD [address] [place] [address] [phone] 03/10/2019 Arabic Teacher Visit Cardiac Rehabilitation Giselle Traore MD [address] [place] [address] 274135 Rehab, [facility] Cardiac 03/13/2019 Arabic Teacher Visit Cardiac Rehabilitation Giselle Traore MD [address] [place] [address] [phone] Rehab, [facility] Cardiac 03/15/2019 Arabic Teacher Visit Cardiac Rehabilitation Giselle Traore MD [address] [place] [address] [phone] Rehab, [facility] Cardiac 03/17/2019 Arabic Teacher Visit Cardiac Rehabilitation Giselle Traore MD [address] [place] [address] [phone] [address]hab, [facility] Cardiac 03/20/2019 Arabic Teacher Visit Cardiac Rehabilitation Giselle Traore MD [address] [place] [address] 30636 [phone] Rehab, [facility] Cardiac 04/11/2019 Office Visit Family Medicine Aria Loja MD [address] [place] [phone] 07/03/2019 Office Visit Cardiology Giselle Traore MD [address] [place] [address] 39231 [phone] Health Maintenance Due Date Last Done Comments [...] Visit Diagnoses Diagnosis Coronary artery disease involving solomon coronary artery of solomon heart without angina pectoris - Primary Essential [...] BOX Medicare A & B nt [id number] [place] [phone] NEW ERA LIFE NEW ERA LIFE [id number] [place] [address] documented as of 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
--- OUTSIDE RECORDS SUMMARY | 2019-02-19 17:10 | XMS REPORT | Summary of Care ---
:1940 Author Organization [facility] Address [address] [place] [address] 26980 Care Team Providers Name Role Phone Aria Loja MD Primary Care Provider Reason for Visit Reason Comments CAD (Routine) Status Reason Specialty Diagnoses / Referred By Referred To Procedures Contact Contact Authorized IM-CARDIOVASCULAR Diagnoses Phase 2 CAD DM2 Giselle Traore, Rehab, Adc DISEASE / Cardiac Procedures [place] OUTPATIENT CARDIAC REHAB W/CONT ECG MONITORING PHASE 2/MONITORED EXERCISE Cardiac Rehabilitation [address] [place] [address] [address] [place] [address] Encounter Details Date Type Department Care Team Description 02/06/2019 Civil Manager Visit [facility] Giselle Traore MD [address] [facility] [address] [place], [place] [phone] Atherosclerosis of pitka's point coronary artery of pit[place] heart without angina pectoris; Cardiac Rehab, Ad[facility] Cardiac 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, unspecified whether intermediate project manager insulin use Rehabilitation- [place] [facility] [address] [place] [address] [address], [address] [place] [address] Allergies Active Allergy Reactions Severity [...] Active hr capsuleIndications: mouth at bedtime. Dizziness isosorbide mononitrate Take 0.5 tablets 0 02/03/2019 Active 60 mg 24 hr tablet by mouth daily. documented as of 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 (statuses as of 02/06/2019) Active Problems Problem Noted Date Elevated sed rate 10/05/2018 Low ferritin 09/14/2018 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, without long-term current use of insulin Bradycardia 06/15/2018 Weakness 06/15/2018 Dizziness 06/15/2018 Coronary artery disease involving pit[place] coronary artery of pit[place] heart 06/15 without angina pectoris Essential hypertension [...] Date Type Specialty Care Team Description 02/08/2019 Civil Manager Visit Cardiac Rehabilitation Giselle Traore MD [address] [place] [address] [place] [address]7515 Rehab, [facility] Cardiac 02/10/2019 Civil Manager Visit Cardiac Rehabilitation Giselle Traore MD [address] [place] [address] [place] [address]647 Rehab, [facility] Cardiac 02/13/2019 Civil Manager Visit Cardiac Rehabilitation Giselle Traore MD [address] [place] [address] 34599 Rehab, [facility] Cardiac 02/13/2019 Office Visit Urology Lukas Daley [id number] [place], [place] [address] 02/15/2019 Civil Manager Visit Cardiac Rehabilitation Giselle Traore MD [address] [place] [address] 84423 [phone] Rehab, [facility] Cardiac 02/17/2019 Civil Manager Visit Cardiac Rehabilitation Giselle Traore MD [address] [place] [address] 41521 Rehab, [facility] Cardiac 02/22/2019 Civil Manager Visit Cardiac Rehabilitation Giselle Traore MD [address] [place] [address] 74472 Rehab, [facility] Cardiac 02/24/2019 Civil Manager Visit Cardiac Rehabilitation Giselle Traore MD [address] [place] [address] 58084 Rehab, [facility] Cardiac 02/27/2019 Civil Manager Visit Cardiac Rehabilitation Giselle Traore MD [address] [place] [address] 13036 Rehab, [facility] Cardiac 03/01/2019 Civil Manager Visit Cardiac Rehabilitation Giselle Traore MD [address] [place] [address] 27509 Rehab, [facility] Cardiac 03/03/2019 Civil Manager Visit Cardiac Rehabilitation Giselle Traore MD [address] [facility] [address] [place] [address] 33712 [phone] Rehab, [facility] Cardiac 03/06/2019 Civil Manager Visit Cardiac Rehabilitation Giselle Traore MD [address] [place] [address] 40864 [phone] Rehab, [facility] Cardiac 03/08/2019 Civil Manager Visit Cardiac Rehabilitation Giselle Traore MD [address] [place] [address] 40539 [phone] Rehab, [facility] Cardiac 03/09/2019 Office Visit Allergy & Immunology: Kelsi Stauffer Internal James Elkins MD [address] [facility] [address] [place] [address] [phone] 03/10/2019 Office Visit Allergy & Immunology: Kelsi Stauffer MD [address] [facility] [address] [place] [address] 064[address] [phone] 03/10/2019 Civil Manager Visit Cardiac Rehabilitation Giselle Traore MD [address] [place] [address] 80128 [phone] Rehab, [facility] Cardiac 03/13/2019 Civil Manager Visit Cardiac Rehabilitation Giselle Traore MD [address] [place] [address] 53742 [phone] Rehab, [facility] Cardiac 03/15/2019 Civil Manager Visit Cardiac Rehabilitation Giselle Traore MD [address] [place] [address] [place] [address] 65294 [phone] Rehab, [facility] Cardiac 03/17/2019 Civil Manager Visit Cardiac Rehabilitation Giselle Traore MD [address] [place] [address] 52091 [phone] Rehab, [facility] Cardiac 03/20/2019 Civil Manager Visit Cardiac Rehabilitation Giselle Traore MD [address] [facility] [address] [place] [address] [phone] Rehab, [facility] Cardiac 04/11/2019 Office Visit Family Medicine Aria Loja MD [address] [place] [address] [place] [address] [phone] 07/03/2019 Office Visit Cardiology Giselle Traore MD [address] [facility] [address] [place] [address] [phone] Health Maintenance Due Date Last Done Comments [...] Date/Time Associated Diagnosis Comments POCT GLUCOSE Routine 02/06/2019 10:14 AM Results for this (AUTOMATED) CDT procedure are in the results section. documented in 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 Results POCT GLUCOSE (AUTOMATED) (02/06/2019 10:14 AM CDT) POCT GLU 140 (H) 70 - 110 mg/dL [facility] Specimen Blood Performing Organization Address City/State/Zipcode Phone Number [facility] CLIA: [id number], [address] [place] [address] [facility] documented in 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 Visit Diagnoses Diagnosis Atherosclerosis of [place] coronary artery of [place] heart without angina pectoris 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, unspecified whether fdc insulin use documented in 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 Insurance Payer Benefit Plan Subscriber ID Effective Phone Address Type / Group Dates MEDICARE MEDICARE PART xxxxxxxxxxx 2004-Walter [phone] Medicare A & B nt 82 [id number] [place] [phone] NEW [employer] LIFE NEW [employer] LIFE [id number] [place] [address] documented as of 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
--- OUTSIDE RECORDS SUMMARY | 2019-02-19 17:10 | XMS REPORT | Summary of Care ---
:1940 Author Organization [facility] Address [address] [place] [address] Care Team Providers Name Role Phone Aria Loja MD Primary Care Provider Reason for Visit Reason Comments Refill Request Encounter Details Date Type Department Care Team Description 02/06/2019 Refill [facility] Family Medicine Aria Loja MD Refill Request - [address] [address] [place] [address] Allergies Active Allergy Reactions Severity Noted Date Comments Canagliflozin Other - See comments 01/18/2017 Genital mycotic infections Codeine Rash 06/15/2018 documented as of 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 (statuses as of 02/07/2019) Medications Medication Sig Dispensed Refills Start Date [...] as of 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 (statuses as of 02/07/2019) Active Problems Problem Noted Date Elevated sed rate 10/05/2018 Low ferritin 09/14/2018 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, without long-term current use of insulin Bradycardia 06/15/2018 Weakness 06/15/2018 Dizziness 06/15/2018 Coronary artery disease involving [place] coronary artery of [place] heart 06/15 without angina pectoris Essential hypertension 06/15/2018 PAF (paroxysmal atrial fibrillation) 06/15/2018 documented as of 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 (statuses as of 02/07/2019) Social History Tobacco Use Types Packs/Day Years [...] Date Type Specialty Care Team Description 02/08/2019 Sanitation Supervisor Visit Cardiac Rehabilitation Giselle Traore MD [address] [place] [address] [place] [address] [phone] Rehab, [facility] Cardiac 02/10/2019 Sanitation Supervisor Visit Cardiac Rehabilitation Giselle Traore MD [address] [place] [address] [phone] Rehab, [facility] 02/13/2019 Sanitation Supervisor Visit Cardiac Rehabilitation Giselle Traore MD [address] [place] [address] [place] [address] [phone] Rehab, [facility] Cardiac 02/13/2019 Office Visit Urology Lukas Daley [id number] [place], [place] [id number] 02/15/2019 Sanitation Supervisor Visit Cardiac Rehabilitation Giselle Traore MD [address] [place] [address] Rehab, [facility] Cardiac 02/17/2019 Sanitation Supervisor Visit Cardiac Rehabilitation Giselle Traore MD [address] [place] [address] 50[address] Rehab, [facility] Cardiac 02/22/2019 Sanitation Supervisor Visit Cardiac Rehabilitation Giselle Traore MD [address] [place] [address] 21685 Rehab, [facility] Cardiac 02/24/2019 Sanitation Supervisor Visit Cardiac Rehabilitation Giselle Traore MD [address] [place] [address] 97879 Rehab, [facility] Cardiac 02/27/2019 Sanitation Supervisor Visit Cardiac Rehabilitation Giselle Traore MD [address] [place] [address] 12951 Rehab, [facility] Cardiac 03/01/2019 Sanitation Supervisor Visit Cardiac Rehabilitation Giselle Traore MD [address] [place] [address] Rehab, [facility] Cardiac 03/03/2019 Sanitation Supervisor Visit Cardiac Rehabilitation Giselle Traore MD [address] [place] [address] 17098 Rehab, [facility] Cardiac 03/06/2019 Sanitation Supervisor Visit Cardiac Rehabilitation Giselle Traore MD [address] [place] [address]99 Rehab, [facility] Cardiac 03/08/2019 Sanitation Supervisor Visit Cardiac Rehabilitation Giselle Traore MD [address] [place] [address] [phone] Rehab, [facility] Cardiac 03/09/2019 Office Visit Allergy & Immunology: Kelsi Stauffer Internal James Elkins MD [address] [place] [address] [phone] 03/10/2019 Office Visit Allergy & Immunology: Kelsi Stauffer Internal James Elkins MD [address] [facility] [address] [place] [address] [phone] 03/10/2019 Sanitation Supervisor Visit Cardiac Rehabilitation Giselle Traore MD [address] [place] [address] [phone] Rehab, [facility] Cardiac 03/13/2019 Sanitation Supervisor Visit Cardiac Rehabilitation Giselle Traore MD [address] [place] [address] [phone] Rehab, [facility] Cardiac 03/15/2019 Sanitation Supervisor Visit Cardiac Rehabilitation Giselle Traore MD [address] [place] [address] Rehab, [facility] Cardiac 03/17/2019 Sanitation Supervisor Visit Cardiac Rehabilitation Giselle Traore MD [address] [place] [address] Rehab, [facility] Cardiac 03/20/2019 Sanitation Supervisor Visit Cardiac Rehabilitation Giselle Traore MD [address] [place] [address] Rehab, [facility] Cardiac 04/11/2019 Office Visit Family Medicine Aria Loja MD [address] [place] [phone] 07/03/2019 Office Visit Cardiology Giselle Traore MD [address] [place] [address] [phone] Health Maintenance Due Date Last Done Comments [...] filedocumented in 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 Visit Diagnoses Diagnosis Type 2 diabetes mellitus with hyperglycemia, without long-term current use of insulin documented in 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 Insurance Payer Benefit Plan Subscriber ID Effective Phone Address Type / Group Dates MEDICARE MEDICARE PART xxxxxxxxxxx 2004-Walter [phone] Medicare A & B nt 82 [id number] [place] [id number] NEW ERA LIFE NEW ERA LIFE [id number] 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
--- OUTSIDE RECORDS SUMMARY | 2019-02-19 17:10 | XMS REPORT | Summary of Care ---
:1940 Author Organization [facility] Address [address] [place] [address] Care Team Providers Name Role Phone Aria Loja MD Primary Care Provider Reason for Visit Reason Comments Pre-op Clearance Encounter Details Date Type Department Care Team Description 02/03/2019 Telephone [facility] Cardiology- Giselle Traore MD Pre-op Clearance [address], [address] [place] [address] [place] [address] Allergies Active Allergy Reactions Severity Noted Date [...] 06/15/2018 Dizziness 06/15/2018 Coronary artery disease involving [place] coronary artery of [place] heart 06/15 without angina pectoris Essential hypertension [...] Date Type Specialty Care Team Description 02/08/2019 Tower Watchman Visit Cardiac Rehabilitation Giselle Traore MD [address] [place] [address] [place] [address] [phone] Rehab, [facility] Cardiac 02/10/2019 Tower Watchman Visit Cardiac Rehabilitation Giselle Traore MD [address] [place] [address] [phone] Rehab, [facility] 02/13/2019 Tower Watchman Visit Cardiac Rehabilitation Giselle Traore MD [address] [place] [address] [place] [address] [phone] Rehab, [facility] Cardiac 02/13/2019 Office Visit Urology Lukas Daley [id number] [place], [place] [address] 02/15/2019 Tower Watchman Visit Cardiac Rehabilitation Giselle Traore MD [address] [place] [address] Rehab, [facility] Cardiac 02/17/2019 Tower Watchman Visit Cardiac Rehabilitation Giselle Traore MD [address] [place] [address] Rehab, [facility] Cardiac 02/22/2019 Tower Watchman Visit Cardiac Rehabilitation Giselle Traore MD [address] [place] [address] 475[address] Rehab, [facility] Cardiac 02/24/2019 Tower Watchman Visit Cardiac Rehabilitation Giselle Traore MD [address] [place] [address] 105[address] Rehab, [facility] Cardiac 02/27/2019 Tower Watchman Visit Cardiac Rehabilitation Giselle Traore MD [address] [place] [address] 55[address] Rehab, [facility] Cardiac 03/01/2019 Tower Watchman Visit Cardiac Rehabilitation Giselle Traore MD [address] [place] [address] 59657 Rehab, [facility] Cardiac 03/03/2019 Tower Watchman Visit Cardiac Rehabilitation Giselle Traore MD [address] [place] [address] [phone] Rehab, [facility] Cardiac 03/06/2019 Tower Watchman Visit Cardiac Rehabilitation Giselle Traore MD [address] [place] [address] 58678 Rehab, [facility] Cardiac 03/08/2019 Tower Watchman Visit Cardiac Rehabilitation Giselle Traore MD [address] [place] [address] [phone] Rehab, [facility] Cardiac 03/09/2019 Office Visit Allergy & Immunology: Kelsi Stauffer Internal James Elkins MD [address] [place] [address] [phone] 03/10/2019 Office Visit Allergy & Immunology: Kelsi Stauffer Internal James Elkins MD [address] [facility] [address] [place] [address] [phone] 03/10/2019 Tower Watchman Visit Cardiac Rehabilitation Giselle Traore MD [address] [place] [address] [phone] Rehab, [facility] Cardiac 03/13/2019 Tower Watchman Visit Cardiac Rehabilitation Giselle Traore MD [address] [place] [address] [phone] Rehab, [facility] Cardiac 03/15/2019 Tower Watchman Visit Cardiac Rehabilitation Giselle Traore MD [address] [place] [address] 93764 Rehab, [facility] Cardiac 03/17/2019 Tower Watchman Visit Cardiac Rehabilitation Giselle Traore MD [address] [place] [address] 81367 Rehab, [facility] Cardiac 03/20/2019 Tower Watchman Visit Cardiac Rehabilitation Giselle Traore MD [address] [place] [address] 00217 Rehab, [facility] Cardiac 04/11/2019 Office Visit Family Medicine Aria Loja MD [address] [place] [phone] 07/03/2019 Office Visit Cardiology Giselle Traore MD [address] [place] [address] 69820 [phone] Health Maintenance Due Date Last Done Comments [...] / Group Dates MEDICARE MEDICARE PART xxxxxxxxxxx 2004-Prese [phone] Medicare A & B nt 82 [id number] [place] [id number] NEW ERA LIFE [employer] LIFE [id number] 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
--- OUTSIDE RECORDS SUMMARY | 2019-02-19 17:10 | XMS REPORT | Summary of Care ---
:1940 Author Organization [facility] Address [address] [place] [address]882 Care Team Providers Name Role Phone Aria Loja MD Primary Care Provider Reason for Visit Reason Comments CAD (Routine) Status Reason Specialty Diagnoses / Referred By Referred To Procedures Contact Contact Authorized IM-CARDIOVASCULAR Diagnoses Phase 2 CAD DM2 Giselle Traore, Rehab, [facility] DISEASE / Cardiac Procedures [place] OUTPATIENT CARDIAC REHAB W/CONT ECG MONITORING PHASE 2/MONITORED EXERCISE Cardiac Rehabilitation [address] [place] [address] [address] [place] [address] Encounter Details Date Type Department Care Team Description 02/03/2019 Safekeeping Clerk Visit [facility] Giselle Traore MD [address] [facility] [address] [place], [place] [phone] Atherosclerosis of [place] coronary artery without angina pectoris, unspecified whether [place] or transplanted heart; Cardiac Rehab, [facility] Card[facility] 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, unspecified whether parts counterman insulin use Rehabilitation- [facility] [address] [place] [address] , [address] [place] [address] Allergies Active Allergy Reactions Severity [...] 06/15/2018 Dizziness 06/15/2018 Coronary artery disease involving [place] coronary artery of [place] heart 06/15 without angina pectoris Essential hypertension [...] Date Type Specialty Care Team Description 02/08/2019 Safekeeping Clerk Visit Cardiac Rehabilitation Giselle Traore MD [address] [facility] [address] [place] [address] [phone] Rehab, [facility] 02/10/2019 Safekeeping Clerk Visit Cardiac Rehabilitation Giselle Traore MD [address] [place] [address] [place] [address] Rehab, [facility] Cardiac 02/13/2019 Safekeeping Clerk Visit Cardiac Rehabilitation Giselle Traore MD [address] [place] [address] Rehab, [facility] Cardiac 02/13/2019 Office Visit Urology ThuyLukas hays [address] [facility] [id number] [place] [address] [phone] 02/15/2019 Safekeeping Clerk Visit Cardiac Rehabilitation Giselle Traore MD [address] [place] [address] 89255 Rehab, [facility] Cardiac 02/17/2019 Safekeeping Clerk Visit Cardiac Rehabilitation Giselle Traore MD [address] [place] [address] 26072 Rehab, [facility] Cardiac 02/22/2019 Safekeeping Clerk Visit Cardiac Rehabilitation Giselle Traore MD [address] [place] [address] 13224 Rehab, [facility] Cardiac 02/24/2019 Safekeeping Clerk Visit Cardiac Rehabilitation Giselle Traore MD [address] [place] [address] 16352 Rehab, [facility] Cardiac 02/27/2019 Safekeeping Clerk Visit Cardiac Rehabilitation Giselle Traore MD [address] [place] [address] 42229 Rehab, [facility] Cardiac 03/01/2019 Safekeeping Clerk Visit Cardiac Rehabilitation Giselle Traore MD [address] [place] [address] 22527 Rehab, [facility] Cardiac 03/03/2019 Safekeeping Clerk Visit Cardiac Rehabilitation Giselle Traore MD [address] [place] [address] 73481 [phone] Rehab, [facility] Cardiac 03/06/2019 Safekeeping Clerk Visit Cardiac Rehabilitation Giselle Traore MD [address] [place] [address] 90184 [phone] Rehab, [facility] Cardiac 03/08/2019 Safekeeping Clerk Visit Cardiac Rehabilitation Giselle Traore MD [address] [place] [address] 74[address] [phone] Rehab, [facility] Cardiac 03/09/2019 Office Visit Allergy & Immunology: Kelsi Stauffer Internal James Elkins MD [address] [place], [place] [phone] 03/10/2019 Office Visit Allergy & Immunology: Kelsi Stauffer MD [address] [place], [place] [phone] 03/10/2019 Safekeeping Clerk Visit Cardiac Rehabilitation Giselle Traore MD [address] [place] [address] 23068 [phone] Rehab, [facility] Cardiac 03/13/2019 Safekeeping Clerk Visit Cardiac Rehabilitation Giselle Traore MD [address] [place] [address] 58741 [phone] Rehab, [facility] Cardiac 03/15/2019 Safekeeping Clerk Visit Cardiac Rehabilitation Giselle Traore MD [address] [place] [address] 36[address] [phone] Rehab, [facility] Cardiac 03/17/2019 Safekeeping Clerk Visit Cardiac Rehabilitation Giselle Traore MD [address] [place] [address] 77153 [phone] Rehab, [facility] Cardiac 03/20/2019 Safekeeping Clerk Visit Cardiac Rehabilitation Giselle Traore MD [address] [place] [address] 63470 [phone] Rehab, [facility] 04/11/2019 Office Visit Family Medicine Aria Loja MD [address] [place] [address] [place] [address] 07/03/2019 Office Visit Cardiology Giselle Traore MD [address] [facility] [address] [place] [address] Health Maintenance Due Date Last Done Comments [...] GLU 146 (H) 70 - 110 mg/dL [facility] Specimen Blood Performing Organization Address City/State/Zipcode Phone Number [facility] CLIA: [id number], [address] [place] [address] [facility] documented in 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 Visit Diagnoses Diagnosis Atherosclerosis of [place] coronary artery without angina pectoris, unspecified whether [place] or transplanted heart 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, unspecified whether parts counterman insulin use documented in 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 Insurance Payer Benefit Plan Subscriber ID Effective Phone Address Type / Group Dates MEDICARE MEDICARE PART xxxxxxxxxxx 2004-Walter [phone] Medicare A & B 82 [id number] [place] [id number] NEW ERA LIFE NEW ERA LIFE [id number] 2016-Pres Brownemniartur ent documented as of 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
--- OUTSIDE RECORDS SUMMARY | 2019-02-19 17:11 | XMS REPORT | Summary of Care ---
:1940 Author Organization [facility] Address [address] [place] [address] 12900 Care Team Providers Name Role Phone Aria Loja MD Primary Care Provider Reason for Visit Reason Comments CAD (Routine) Status Reason Specialty Diagnoses / Referred By Referred To Procedures Contact Contact Authorized IM-CARDIOVASCULAR Diagnoses Phase 2 CAD DM2 Giselle Traore, Rehab, Adc DISEASE / Cardiac Procedures [place] OUTPATIENT CARDIAC REHAB W/CONT ECG MONITORING PHASE 2/MONITORED EXERCISE Cardiac Rehabilitation [address] [place] [address] [address] [place] [address] Encounter Details Date Type Department Care Team Description 02/06/2019 Metallurgical Inspector Visit [facility] Giselle Traore MD [address] [facility] [address] [place], [place] [id number] Atherosclerosis of grindstone coronary artery of grindstone heart without angina pectoris; Cardiac Rehab, Adc Cardiac 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, unspecified whether ad terminal makeup operator insulin use Rehabilitation- [facility] [address] [place] [address] DrEricka, [address] [place] [address] Allergies Active Allergy Reactions Severity Noted Date Comments Canagliflozin Other - See comments 01/18/2017 Genital mycotic infections Codeine Rash 06/15/2018 documented as of 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 (statuses as of 02/12/2019) Medications Medication Sig Dispensed Refills Start Date [...] as of 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 (statuses as of 02/12/2019) Active Problems Problem Noted Date Elevated sed rate 10/05/2018 Low ferritin 09/14/2018 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, without long-term current use of insulin Bradycardia 06/15/2018 Weakness 06/15/2018 Dizziness 06/15/2018 Coronary artery disease involving grindstone coronary artery of grindstone heart 06/15 without angina pectoris Essential hypertension 06/15/2018 PAF (paroxysmal atrial fibrillation) 06/15/2018 documented as of 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 (statuses as of 02/12/2019) Social History Tobacco Use Types Packs/Day Years [...] Date Type Specialty Care Team Description 02/13/2019 Metallurgical Inspector Visit Cardiac Rehabilitation Giselle Traore MD [address] [place] [address] [place] [address] Rehab, Adc Cardiac 02/13/2019 Office Visit Urology Lukas Daley [id number] [place], [place] [address] 02/15/2019 Metallurgical Inspector Visit Cardiac Rehabilitation Giselle Traore MD [address] [place] [address] 68283 Rehab, [facility] Cardiac 02/17/2019 Metallurgical Inspector Visit Cardiac Rehabilitation Giselle Traore MD [address] [place] [address] 20443 Rehab, [facility] Cardiac 02/22/2019 Metallurgical Inspector Visit Cardiac Rehabilitation Giselle Traore MD [address] [place] [address] 53944 Rehab, [facility] Cardiac 02/24/2019 Metallurgical Inspector Visit Cardiac Rehabilitation Giselle Traore MD [address] [place] [address] 85296 Rehab, [facility] Cardiac 02/27/2019 Metallurgical Inspector Visit Cardiac Rehabilitation Giselle Traore MD [address] [place] [address] 11231 Rehab, [facility] Cardiac 03/01/2019 Metallurgical Inspector Visit Cardiac Rehabilitation Giselle Traore MD [address] [place] [address] 25259 Rehab, [facility] Cardiac 03/03/2019 Metallurgical Inspector Visit Cardiac Rehabilitation Giselle Traore MD [address] [place] [address] 27951 Rehab, [facility] Cardiac 03/06/2019 Metallurgical Inspector Visit Cardiac Rehabilitation Giselle Traore MD [address] [place] [address] 33402 Rehab, [facility] Cardiac 03/08/2019 Metallurgical Inspector Visit Cardiac Rehabilitation Giselle Traore MD [address] [place] [address] [place] [address] 90263 [phone] Rehab, [facility] Cardiac 03/09/2019 Office Visit Allergy & Immunology: Kelsi Stauffer Internal Medicine MD Brittni [address] [place], [place] [address] 03/10/2019 Office Visit Allergy & Immunology: Kelsi Stauffer Internal James Elkins MD [address] [place], [place] [address] 03/10/2019 Metallurgical Inspector Visit Cardiac Rehabilitation Giselle Traore MD [address] [place] [address] 38225 [phone] Rehab, [facility] Cardiac 03/13/2019 Metallurgical Inspector Visit Cardiac Rehabilitation Giselle Traore MD [address] [place] [address] 79422 [phone] Rehab, [facility] Cardiac 03/15/2019 Metallurgical Inspector Visit Cardiac Rehabilitation Giselle Traore MD [address] [place] [address] 55182 Rehab, [facility] Cardiac 03/17/2019 Metallurgical Inspector Visit Cardiac Rehabilitation Giselle Traore MD [address] [place] [address] 02049 Rehab, [facility] Cardiac 03/20/2019 Metallurgical Inspector Visit Cardiac Rehabilitation Giselle Traore MD [address] [place] [address] [place] [address] 31485 Rehab, [facility] Cardiac 03/22/2019 Metallurgical Inspector Visit Cardiac Rehabilitation Giselle Traore MD [address] [place] [address] [place] [address] 35770 Rehab, [facility] Cardiac 03/24/2019 Metallurgical Inspector Visit Cardiac Rehabilitation Giselle Traore MD [address] [place] [address] 05645 [phone] Rehab, [facility] Cardiac 03/27/2019 Metallurgical Inspector Visit Cardiac Rehabilitation Giselle Traore MD [address] [place] [address] 75957 [phone] Rehab, [facility] Cardiac 03/29/2019 Metallurgical Inspector Visit Cardiac Rehabilitation Giselle Traore MD [address] [place] [address] 411125 Rehab, [facility] Cardiac 03/31/2019 Metallurgical Inspector Visit Cardiac Rehabilitation Giselle Traore MD [address] [place] [address] 466155 Rehab, [facility] Cardiac 04/03/2019 Metallurgical Inspector Visit Cardiac Rehabilitation Giselle Traore MD [address] [place] [address] [phone] Rehab, [facility] Cardiac 04/05/2019 Metallurgical Inspector Visit Cardiac Rehabilitation Giselle Traore MD [address] [place] [address] 64035 [phone] Rehab, [facility] Cardiac 04/11/2019 Office Visit Family Medicine Aria Loja MD [address] [place] [phone] 07/03/2019 Office Visit Cardiology Giselle Traore MD [address] [place] [address] 9[address]47 [phone] Health Maintenance Due Date Last Done Comments [...] GLU 140 (H) 70 - 110 mg/dL [facility] Specimen Blood Performing Organization Address City/State/Zipcode Phone Number [facility] CLIA: [id number], [address] [place] [address] [id number] [facility] documented in 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 Visit Diagnoses Diagnosis Atherosclerosis of grindstone coronary artery of grindstone heart without angina pectoris 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, unspecified whether ad terminal makeup operator insulin use documented in 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 Insurance Payer Benefit Plan Subscriber ID Effective Phone Address Type / Group Dates MEDICARE MEDICARE PART xxxxxxxxxxx 2004-Walter [phone] Medicare A & B nt 82 [id number] [place] [phone] NEW ERA LIFE NEW ERA LIFE [id number] 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
--- OUTSIDE RECORDS SUMMARY | 2019-02-19 17:11 | XMS REPORT | Summary of Care ---
:1940 Author Organization [facility] Address [address] [place] [address] Care Team Providers Name Role Phone Aria Loja MD Primary Care Provider Reason for Visit Reason Comments CAD (Routine) Status Reason Specialty Diagnoses / Referred By Referred To Procedures Contact Contact Authorized IM-CARDIOVASCULAR Diagnoses Phase 2 CAD DM2 Gieslle Traore, Rehab, Adc DISEASE / Cardiac Procedures [place] OUTPATIENT CARDIAC REHAB W/CONT ECG MONITORING PHASE 2/MONITORED EXERCISE Cardiac Rehabilitation [address] [place] [address] [address] [place] [address] Encounter Details Date Type Department Care Team Description 02/08/2019 Ceo & Co Founder Visit [facility] Giselle Traore MD [address] [facility] [address] [place], [place] [phone] Atherosclerosis of false pass coronary artery of false pass heart without angina pectoris; Cardiac Rehab, Adc Cardiac 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, unspecified whether printed circuit designer insulin use Rehabilitation- [facility] [address] [place] [address] DrEricka, [address] [place] [address] Allergies Active Allergy Reactions Severity Noted Date Comments Canagliflozin Other - See comments 01/18/2017 Genital mycotic infections Codeine Rash 06/15/2018 documented as of 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 (statuses as of 02/08/2019) Medications Medication Sig Dispensed Refills Start Date [...] as of 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 (statuses as of 02/08/2019) Active Problems Problem Noted Date Elevated sed rate 10/05/2018 Low ferritin 09/14/2018 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, without long-term current use of insulin Bradycardia 06/15/2018 Weakness 06/15/2018 Dizziness 06/15/2018 Coronary artery disease involving false pass coronary artery of false pass heart 06/15 without angina pectoris Essential hypertension 06/15/2018 PAF (paroxysmal atrial fibrillation) 06/15/2018 documented as of 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 (statuses as of 02/08/2019) Social History Tobacco Use Types Packs/Day Years [...] Treatment Date Type Specialty Care Team Description 02/10/2019 Ceo & Co Founder Visit Cardiac Rehabilitation Giselle Traore MD [address] [place] [address] [place] [address] Rehab, Adc Cardiac 02/13/2019 Ceo & Co Founder Visit Cardiac Rehabilitation Giselle Traore MD [address] [place] [address] [place] [address] 22646 Rehab, [facility] Cardiac 02/13/2019 Office Visit Urology Lukas Daley [address] [place], [place] [address] 02/15/2019 Ceo & Co Founder Visit Cardiac Rehabilitation Giselle Traore MD [address] [place] [address] 88266 Rehab, [facility] Cardiac 02/17/2019 Ceo & Co Founder Visit Cardiac Rehabilitation Giselle Traore MD [address] [place] [address] 85162 Rehab, [facility] Cardiac 02/22/2019 Ceo & Co Founder Visit Cardiac Rehabilitation Giselle Traore MD [address] [place] [address] 96847 Rehab, [facility] Cardiac 02/24/2019 Ceo & Co Founder Visit Cardiac Rehabilitation Giselle Traore MD [address] [place] [address] 16681 Rehab, [facility] Cardiac 02/27/2019 Ceo & Co Founder Visit Cardiac Rehabilitation Giselle Traore MD [address] [place] [address] 98670 Rehab, [facility] Cardiac 03/01/2019 Ceo & Co Founder Visit Cardiac Rehabilitation Giselle Traore MD [address] [place] [address] 71996 Rehab, [facility] Cardiac 03/03/2019 Ceo & Co Founder Visit Cardiac Rehabilitation Giselle Traore MD [address] [place] [address] 01748 Rehab, [facility] Cardiac 03/06/2019 Ceo & Co Founder Visit Cardiac Rehabilitation Giselle Traore MD [address] [place] [address] [place] [address] 50986 [phone] Rehab, [facility] Cardiac 03/08/2019 Ceo & Co Founder Visit Cardiac Rehabilitation Giselle Traore MD [address] [place] [address] 88405 [phone] Rehab, [facility] Cardiac 03/09/2019 Office Visit Allergy & Immunology: Kelsi Stauffer Internal James Elkins MD [address] [place] [address] [phone] 03/10/2019 Office Visit Allergy & Immunology: Kelsi Stauffer Internal James Elkins MD [address] [place] [address] [phone] 03/10/2019 Ceo & Co Founder Visit Cardiac Rehabilitation Giselle Traore MD [address] [place] [address] 88559 [phone] Rehab, [facility] Cardiac 03/13/2019 Ceo & Co Founder Visit Cardiac Rehabilitation Giselle Traore MD [address] [place] [address] 10994 Rehab, [facility] Cardiac 03/15/2019 Ceo & Co Founder Visit Cardiac Rehabilitation Giselle Traore MD [address] [place] [address] 93028 Rehab, [facility] Cardiac 03/17/2019 Ceo & Co Founder Visit Cardiac Rehabilitation Giselle Traore MD [address] [place] [address] [place] [address] 21964 Rehab, [facility] Cardiac 03/20/2019 Ceo & Co Founder Visit Cardiac Rehabilitation Giselle Traore MD [address] [place] [address] 92559 Rehab, [facility] Cardiac 04/11/2019 Office Visit Family Medicine Aria Loja MD [address] [place] [address] [place] [address] [phone] 07/03/2019 Office Visit Cardiology Giselle Traore MD [address] [facility] [address] [place] [address] [phone] Health Maintenance Due Date Last Done Comments [...] Date/Time Associated Diagnosis Comments POCT GLUCOSE Routine 02/08/2019 10:13 AM Results for this (AUTOMATED) CDT procedure are in the results section. documented in 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 Results POCT GLUCOSE (AUTOMATED) (02/08/2019 10:13 AM CDT) POCT GLU 146 (H) 70 - 110 mg/dL [facility] Specimen Blood Performing Organization Address City/State/Zipcode Phone Number [facility] CLIA: [id number], [address] [place] [address] [facility] documented in 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 Visit Diagnoses Diagnosis Atherosclerosis of false pass coronary artery of false pass heart without angina pectoris 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, unspecified whether printed circuit designer insulin use documented in 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 Insurance Payer Benefit Plan Subscriber ID Effective Phone Address Type / Group Dates MEDICARE MEDICARE PART xxxxxxxxxxx 2004-Prese [phone] [address] [facility] Medicare A & B nt 82 [id number] [place] [id number] NEW ERA LIFE [employer] LIFE [id number] 2016-Pres Brownemniartur ent documented as of 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
--- OUTSIDE RECORDS SUMMARY | 2019-02-19 17:11 | XMS REPORT | Summary of Care ---
:1940 Author Organization [facility] Address [address] [place] [address]50 Care Team Providers Name Role Phone Aria Loja MD Primary Care Provider Reason for Visit Reason Comments CAD (Routine) Status Reason Specialty Diagnoses / Referred By Referred To Procedures Contact Contact Authorized IM-CARDIOVASCULAR Diagnoses Phase 2 CAD DM2 Giselle Traore, Rehab, Adc DISEASE / Cardiac Procedures [place] OUTPATIENT CARDI[facility] REHAB W/CONT ECG MONITORING PHASE 2/MONITORED EXERCISE Cardiac Rehabilitation [address] [place] [address] [address] [place] [address] Encounter Details Date Type Department Care Team Description 02/06/2019 Network Management Specialist Visit [facility] Giselle Traore MD [address] [facility] [address] [place], [place] [phone] Atherosclerosis of atqasuk coronary artery of atqas[place] heart without angina pectoris; Cardiac Rehab, Adc Cardiac 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, unspecified whether vermin exterminator insulin use Rehabilitation- [facility] [address] [place] [address] DrEricka, [address] [place] [address] Allergies Active Allergy Reactions Severity Noted Date Comments Canagliflozin Other - See comments 01/18/2017 Genital mycotic infections Codeine Rash 06/15/2018 documented as of 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 (statuses as of 02/13/2019) Medications Medication Sig Dispensed Refills Start Date [...] as of 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 (statuses as of 02/13/2019) Active Problems Problem Noted Date Elevated sed rate 10/05/2018 Low ferritin 09/14/2018 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, without long-term current use of insulin Bradycardia 06/15/2018 Weakness 06/15/2018 Dizziness 06/15/2018 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 06/15 without angina pectoris Essential hypertension 06/15/2018 PAF (paroxysmal atrial fibrillation) 06/15/2018 documented as of 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 (statuses as of 02/13/2019) Social History Tobacco Use Types Packs/Day Years [...] Care Team Description 02/13/2019 Office Visit Urology Lukas Daley [id number] [place], [place] [address] 02/15/2019 Network Management Specialist Visit Cardiac Rehabilitation Giselle Traore MD [address] [place] [address] 15359 [phone] Rehab, [facility] Cardiac 02/17/2019 Network Management Specialist Visit Cardiac Rehabilitation Giselle Traore MD [address] [place] [address] 35839 [phone] Rehab, [facility] Cardiac 02/22/2019 Network Management Specialist Visit Cardiac Rehabilitation Giselle Traore MD [address] [place] [address] 85215 [phone] Rehab, [facility] Cardiac 02/24/2019 Network Management Specialist Visit Cardiac Rehabilitation Giselle Traore MD [address] [place] [address] 08922 [phone] Rehab, [facility] Cardiac 02/27/2019 Network Management Specialist Visit Cardiac Rehabilitation Giselle Traore MD [address] [place] [address] 23781 [phone] Rehab, [facility] Cardiac 03/01/2019 Network Management Specialist Visit Cardiac Rehabilitation Giselle Traore MD [address] [place] [address] 01886 Rehab, [facility] Cardiac 03/03/2019 Network Management Specialist Visit Cardiac Rehabilitation Giselle Traore MD [address] [place] [address] 21638 [phone] Rehab, [facility] Cardiac 03/06/2019 Network Management Specialist Visit Cardiac Rehabilitation Giselle Traore MD [address] [place] [address] 69262 Rehab, [facility] Cardiac 03/08/2019 Network Management Specialist Visit Cardiac Rehabilitation Giselle Traore MD [address] [place] [address] 79051 [phone] Rehab, [facility] Cardiac 03/09/2019 Office Visit Allergy & Immunology: Kelsi Stauffer Internal Medicine MD Brittni [address] [place], [place] [address] 03/10/2019 Office Visit Allergy & Immunology: Kelsi Stauffer Internal Medicine MD Brittni [address] [place], [place] [address] 03/10/2019 Network Management Specialist Visit Cardiac Rehabilitation Giselle Traore MD [address] [place] [address] [place] [address] 65639 [phone] Rehab, [facility] Cardiac 03/13/2019 Network Management Specialist Visit Cardiac Rehabilitation Giselle Traore MD [address] [place] [address] 52051 Rehab, [facility] Cardiac 03/15/2019 Network Management Specialist Visit Cardiac Rehabilitation Giselle Traore MD [address] [place] [address] 39479 Rehab, [facility] Cardiac 03/17/2019 Network Management Specialist Visit Cardiac Rehabilitation Giselle Traore MD [address] [place] [address] 96759 Rehab, [facility] Cardiac 03/20/2019 Network Management Specialist Visit Cardiac Rehabilitation Giselle Traore MD [address] [place] [address] 17589 Rehab, [facility] Cardiac 03/22/2019 Network Management Specialist Visit Cardiac Rehabilitation Giselle Traore MD [address] [place] [address] [place] [address] 11576 Rehab, [facility] Cardiac 03/24/2019 Network Management Specialist Visit Cardiac Rehabilitation Giselle Traore MD [address] [place] [address] [place] [address] 59875 Rehab, [facility] Cardiac 03/27/2019 Network Management Specialist Visit Cardiac Rehabilitation Giselle Traore MD [address] [place] [address] 98345 [phone] Rehab, [facility] Cardiac 03/29/2019 Network Management Specialist Visit Cardiac Rehabilitation Giselle Traore MD [address] [place] [address] 56769 [phone] Rehab, [facility] Cardiac 03/31/2019 Network Management Specialist Visit Cardiac Rehabilitation Giselle Traore MD [address] [place] [address] 56346 [phone] Rehab, [facility] Cardiac 04/03/2019 Network Management Specialist Visit Cardiac Rehabilitation Giselle Traore MD [address] [place] [address] 77920 [phone] Rehab, [facility] Cardiac 04/05/2019 Network Management Specialist Visit Cardiac Rehabilitation Giselle Traore MD [address] [place] [address] [phone] Rehab, [facility] Cardiac 04/11/2019 Office Visit Family Medicine Aria Loja MD [address] [place] [address] [phone] 07/03/2019 Office Visit Cardiology Giselle Traore MD [address] [place] [address] 54720 [phone] Health Maintenance Due Date Last Done Comments [...] GLU 140 (H) 70 - 110 mg/dL [facility] Specimen Blood Performing Organization Address City/State/Zipcode Phone Number [facility] CLIA: [id number], [address] [place] [address] [id number] [facility] documented in 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 Visit Diagnoses Diagnosis Atherosclerosis of [place]qasuk coronary artery of [place] heart without angina pectoris 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, unspecified whether vermin exterminator insulin use documented in 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 Insurance Payer Benefit Plan Subscriber ID Effective Phone Address Type / Group Dates MEDICARE MEDICARE PART xxxxxxxxxxx 2004-Walter [phone] Medicare A & B nt 82 [id number] [place] [id number] NEW ERA LIFE NEW ERA LIFE [id number] 2016-Pres Brownemniartur ent documented as of 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
--- OUTSIDE RECORDS SUMMARY | 2019-02-19 17:11 | XMS REPORT | Summary of Care ---
:1940 Author Organization [facility] Address [address] [place] [address] Care Team Providers Name Role Phone Aria Loja MD Primary Care Provider Reason for Visit Reason Comments CAD (Routine) Status Reason Specialty Diagnoses / Referred By Referred To Procedures Contact Contact Authorized IM-CARDIOVASCULAR Diagnoses Phase 2 CAD DM2 Giselle Traore, Rehab, Ad[facility] DISEASE / Cardiac Procedures AR OUTPATIENT CARDIAC REHAB W/CONT ECG MONITORING PHASE 2/MONITORED EXERCISE Cardiac Rehabilitation [address] [place] [address] [address] [place] [address] Encounter Details Date Type Department Care Team Description 02/08/2019 Network Planner Visit [facility] Giselle Traore MD [address] [facility] [facility] [place], [place] [id number] Atherosclerosis of [place] coronary artery of [place] heart without angina pectoris; Cardiac Rehab, Adc Cardiac 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, unspecified whether 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 marine 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 insulin use Rehabilitation- [facility] [address] [place] [address] DrEricka, [address] [place] [address] Allergies Active Allergy Reactions Severity [...] 06/15/2018 Dizziness 06/15/2018 Coronary artery disease involving nanwalek coronary artery of [place] heart 06/15 without angina pectoris Essential hypertension [...] Date Type Specialty Care Team Description 02/13/2019 Network Planner Visit Cardiac Rehabilitation Giselle Traore MD [address] [place] [address] [place] [address] Rehab, [facility] Cardiac 02/13/2019 Office Visit Urology Lukas Daley [id number] [place], [place] [address] 02/15/2019 Network Planner Visit Cardiac Rehabilitation Giselle Traore MD [address] [place] [address] 07674 Rehab, [facility] Cardiac 02/17/2019 Network Planner Visit Cardiac Rehabilitation Giselle Traore MD [address] [place] [address] 92727 Rehab, [facility] Cardiac 02/22/2019 Network Planner Visit Cardiac Rehabilitation Giselle Traore MD [address] [place] [address] 09683 Rehab, [facility] Cardiac 02/24/2019 Network Planner Visit Cardiac Rehabilitation Giselle Traore MD [address] [place] [address] 94770 Rehab, [facility] Cardiac 02/27/2019 Network Planner Visit Cardiac Rehabilitation Giselle Traore MD [address] [place] [address] 96179 Rehab, [facility] Cardiac 03/01/2019 Network Planner Visit Cardiac Rehabilitation Giselle Traore MD [address] [place] [address] 63818 Rehab, [facility] Cardiac 03/03/2019 Network Planner Visit Cardiac Rehabilitation Giselle Traore MD [address] [place] [address] 23036 Rehab, [facility] Cardiac 03/06/2019 Network Planner Visit Cardiac Rehabilitation Giselle Traore MD [address] [place] [address] 96375 Rehab, [facility] Cardiac 03/08/2019 Network Planner Visit Cardiac Rehabilitation Giselle Traore MD [address] [place] [address] [place] [address] 55361 [phone] Rehab, [facility] Cardiac 03/09/2019 Office Visit Allergy & Immunology: Kelsi Stauffer Internal Medicine MD Brittni [address] [place], [place] [address] 03/10/2019 Office Visit Allergy & Immunology: Kelsi Stauffer Internal James Elkins MD [address] [place], [place] [address] 03/10/2019 Network Planner Visit Cardiac Rehabilitation Giselle Traore MD [address] [place] [address] 01863 [phone] Rehab, [facility] Cardiac 03/13/2019 Network Planner Visit Cardiac Rehabilitation Giselle Traore MD [address] [place] [address] 38172 [phone] Rehab, [facility] Cardiac 03/15/2019 Network Planner Visit Cardiac Rehabilitation Giselle Traore MD [address] [place] [address] 64151 Rehab, [facility] Cardiac 03/17/2019 Network Planner Visit Cardiac Rehabilitation Giselle Traore MD [address] [place] [address] 75561 Rehab, [facility] Cardiac 03/20/2019 Network Planner Visit Cardiac Rehabilitation Giselle Traore MD [address] [place] [address] [place] [address] 67808 Rehab, [facility] Cardiac 03/22/2019 Network Planner Visit Cardiac Rehabilitation Giselle Traore MD [address] [place] [address] [place] [address] 00551 Rehab, [facility] Cardiac 03/24/2019 Network Planner Visit Cardiac Rehabilitation Giselle Traore MD [address] [place] [address] 35066 [phone] Rehab, [facility] Cardiac 03/27/2019 Network Planner Visit Cardiac Rehabilitation Giselle Traore MD [address] [place] [address] 61802 [phone] Rehab, [facility] Cardiac 03/29/2019 Network Planner Visit Cardiac Rehabilitation Giselle Traore MD [address] [place] [address] 136235 Rehab, [facility] Cardiac 03/31/2019 Network Planner Visit Cardiac Rehabilitation Giselle Traore MD [address] [place] [address] 567955 Rehab, [facility] Cardiac 04/03/2019 Network Planner Visit Cardiac Rehabilitation Giselle Traore MD [address] [place] [address] [phone] Rehab, [facility] Cardiac 04/05/2019 Network Planner Visit Cardiac Rehabilitation Giselle Traore MD [address] [place] [address] 99472 [phone] Rehab, [facility] Cardiac 04/11/2019 Office Visit Family Medicine Aria Loja MD [address] [place] [phone] 07/03/2019 Office Visit Cardiology Giselle Traore MD [address] [place] [address] 23011 [phone] Health Maintenance Due Date Last Done Comments [...] GLU 146 (H) 70 - 110 mg/dL [facility] Specimen Blood Performing Organization Address City/State/Zipcode Phone Number [facility] CLIA: [id number], [address] [place] [id number] [facility] documented in 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 Visit Diagnoses Diagnosis Atherosclerosis of [place] coronary artery of [place] heart without angina pectoris 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, unspecified whether 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 Medicare A & B nt 82 [id number] [place] [id number] NEW ERA LIFE [employer] ERA LIFE [id number] 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
--- OUTSIDE RECORDS SUMMARY | 2019-02-19 17:11 | XMS REPORT | Summary of Care ---
:1940 Author Organization [facility] - Health Address [address] [place] [address] Care Team Providers Name Role Phone Aria Loja MD Primary Care Provider Encounter Details Date Type Department Care Team Description 02/09/2019 Orders Only [facility] Doctor Unassigned, No 301 [facility] [place] [address] [address] [place] [address] Allergies Active Allergy Reactions Severity Noted Date Comments Canagliflozin Other - See comments 01/18/2017 Genital mycotic infections Codeine Rash 06/15/2018 documented as of 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 (statuses as of 02/09/2019) Medications Medication Sig Dispensed Refills Start Date [...] as of 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 (statuses as of 02/09/2019) Active Problems Problem Noted Date Elevated sed rate 10/05/2018 Low ferritin 09/14/2018 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, without long-term current use of insulin Bradycardia 06/15/2018 Weakness 06/15/2018 Dizziness 06/15/2018 Coronary artery disease involving qagan tayagungin coronary artery of qagan tayagung[place] heart 06/15 without angina pectoris Essential hypertension 06/15/2018 PAF (paroxysmal atrial fibrillation) 06/15/2018 documented as of 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 (statuses as of 02/09/2019) Social History Tobacco Use Types Packs/Day Years [...] Date Type Specialty Care Team Description 02/10/2019 C Winforms Developer Visit Cardiac Rehabilitation Giselle Traore MD [address] [place] [address] 02281 [phone] Rehab, [facility] Cardiac 02/13/2019 C Winforms Developer Visit Cardiac Rehabilitation Giselle Traore MD [address] [place] [address] 55392 Rehab, [facility] Cardiac 02/13/2019 Office Visit Urology Lukas Daley [id number] [place], [place] [address] 02/15/2019 C Winforms Developer Visit Cardiac Rehabilitation Giselle Traore MD [address] [place] [address] 42116 [phone] Rehab, [facility] Cardiac 02/17/2019 C Winforms Developer Visit Cardiac Rehabilitation Giselle Traore MD [address] [place] [address] 76917 [phone] Rehab, [facility] Cardiac 02/22/2019 C Winforms Developer Visit Cardiac Rehabilitation Giselle Traore MD [address] [place] [address] 27040 [phone] Rehab, [facility] Cardiac 02/24/2019 C Winforms Developer Visit Cardiac Rehabilitation Giselle Traore MD [address] [place] [address] 81477 [phone] Rehab, [facility] Cardiac 02/27/2019 C Winforms Developer Visit Cardiac Rehabilitation Giselle Traore MD [address] [place] [address] 11926 Rehab, [facility] Cardiac 03/01/2019 C Winforms Developer Visit Cardiac Rehabilitation Giselle Traore MD [address] [place] [address] 67484 Rehab, [facility] Cardiac 03/03/2019 C Winforms Developer Visit Cardiac Rehabilitation Giselle Traore MD [address] [place] [address] 74779 Rehab, [facility] Cardiac 03/06/2019 C Winforms Developer Visit Cardiac Rehabilitation Giselle Traore MD [address] [place] [address] 29125 Rehab, [facility] Cardiac 03/08/2019 C Winforms Developer Visit Cardiac Rehabilitation Giselle Traore MD [address] [place] [address] 57272 [phone] Rehab, [facility] Cardiac 03/09/2019 Office Visit Allergy & Immunology: Kelsi Stauffer Internal Medicine MD Brittni [address] [place], [place] [id number] [phone] 03/10/2019 Office Visit Allergy & Immunology: Kelsi Stauffer Internal Medicine MD Brittni [address] [place] [address] [address] [place] [id number] [phone] 03/10/2019 C Winforms Developer Visit Cardiac Rehabilitation Giselle Traore MD [address] [place] [address] 57303 [phone] Rehab, [facility] Cardiac 03/13/2019 C Winforms Developer Visit Cardiac Rehabilitation Giselle Traore MD [address] [place] [address] 158105 Rehab, [facility] Cardiac 03/15/2019 C Winforms Developer Visit Cardiac Rehabilitation Giselle Traore MD [address] [place] [address] [phone] Rehab, [facility] Cardiac 03/17/2019 C Winforms Developer Visit Cardiac Rehabilitation Giselle Traore MD [address] [place] [address] [phone] Rehab, [facility] Cardiac 03/20/2019 C Winforms Developer Visit Cardiac Rehabilitation Giselle Traore MD [address] [place] [address] [phone] Rehab, [facility] Cardiac 04/11/2019 Office Visit Family Medicine Aria Loja MD [address] [place] [address] [phone] 07/03/2019 Office Visit Cardiology Giselle Traore MD [address] [place] [address] 04831 [phone] Health Maintenance Due Date Last Done Comments [...] Procedure Name Priority Date/Time Associated Diagnosis Comments EXTERNAL PROVIDER Routine 02/09/2019 12:01 AM CDT RECORDS documented in 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 Results Not on filedocumented in 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 Insurance Payer Benefit Plan Subscriber ID Effective Phone Address Type / Group Dates MEDICARE MEDICARE PART xxxxxxxxxxx 2004-Walter [phone] Medicare A & B nt 82 [id number] [place] [id number] [employer] LIFE [id number] 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
--- OUTSIDE RECORDS SUMMARY | 2019-02-19 17:12 | XMS REPORT | Summary of Care ---
:1940 Author Organization [facility] Address [address] [place] [address] 71423 Care Team Providers Name Role Phone Aria Loja MD Primary Care Provider Reason for Visit Reason Comments CAD (Routine) Status Reason Specialty Diagnoses / Referred By Referred To Procedures Contact Contact Authorized IM-CARDIOVASCULAR Diagnoses Phase 2 CAD DM2 Giselle Traore, Rehab, [facility] DISEASE / Cardiac Procedures [place] OUTPATIENT CARDIAC REHAB W/CONT ECG MONITORING PHASE 2/MONITORED EXERCISE Cardiac Rehabilitation [address] [place] [address] [address] [place] [address] Encounter Details Date Type Department Care Team Description 02/08/2019 Gearman Visit [facility] Giselle Traore MD [address] [facility] [address] [place], [place] [id number] Atherosclerosis of curyung coronary artery of curyung heart without angina pectoris; Cardiac Rehab, Adc Cardiac 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, unspecified whether extermination inspector insulin use Rehabilitation- [facility] [address] [place] [address] DrEricka, [address] [place] [address] Allergies Active Allergy Reactions Severity [...] 06/15/2018 Dizziness 06/15/2018 Coronary artery disease involving curyung coronary artery of curyung heart 06/15 without angina pectoris Essential hypertension [...] Visit Urology Lukas Daley [id number] [place], [place] [address] 02/15/2019 Gearman Visit Cardiac Rehabilitation Giselle Traore MD [address] [place] [address] 38178 [phone] Rehab, [facility] Cardiac 02/17/2019 Gearman Visit Cardiac Rehabilitation Giselle Traore MD [address] [place] [address] 93101 [phone] Rehab, [facility] Cardiac 02/22/2019 Gearman Visit Cardiac Rehabilitation Giselle Traore MD [address] [place] [address] 26421 [phone] Rehab, [facility] Cardiac 02/24/2019 Gearman Visit Cardiac Rehabilitation Giselle Traore MD [address] [place] [address] 89135 [phone] Rehab, [facility] Cardiac 02/27/2019 Gearman Visit Cardiac Rehabilitation Giselle Traore MD [address] [place] [address] 20037 [phone] Rehab, [facility] Cardiac 03/01/2019 Gearman Visit Cardiac Rehabilitation Giselle Traore MD [address] [place] [address] 15375 Rehab, [facility] Cardiac 03/03/2019 Gearman Visit Cardiac Rehabilitation Giselle Traore MD [address] [place] [address] 69558 [phone] Rehab, [facility] Cardiac 03/06/2019 Gearman Visit Cardiac Rehabilitation Giselle Traore MD [address] [place] [address] 54512 Rehab, [facility] Cardiac 03/08/2019 Gearman Visit Cardiac Rehabilitation Giselle Traore MD [address] [place] [address] 96231 [phone] Rehab, [facility] Cardiac 03/09/2019 Office Visit Allergy & Immunology: Kelsi Stauffer Internal Medicine MD Brittni [address] [place], [place] [address] 03/10/2019 Office Visit Allergy & Immunology: Kelsi Stauffer Internal Medicine MD Brittni [address] [place], [place] [address] 03/10/2019 Gearman Visit Cardiac Rehabilitation Giselle Traore MD [address] [place] [address] [place] [address] 78203 [phone] Rehab, [facility] Cardiac 03/13/2019 Gearman Visit Cardiac Rehabilitation Giselle Traore MD [address] [place] [address] 28565 Rehab, [facility] Cardiac 03/15/2019 Gearman Visit Cardiac Rehabilitation Giselle Traore MD [address] [place] [address] 83967 Rehab, [facility] Cardiac 03/17/2019 Gearman Visit Cardiac Rehabilitation Giselle Traore MD [address] [place] [address] 23148 Rehab, [facility] Cardiac 03/20/2019 Gearman Visit Cardiac Rehabilitation Giselle Traore MD [address] [place] [address] 44426 Rehab, [facility] Cardiac 03/22/2019 Gearman Visit Cardiac Rehabilitation Giselle Traore MD [address] [place] [address] [place] [address] 96729 Rehab, [facility] Cardiac 03/24/2019 Gearman Visit Cardiac Rehabilitation Giselle Traore MD [address] [place] [address] [place] [address] 95409 Rehab, [facility] Cardiac 03/27/2019 Gearman Visit Cardiac Rehabilitation Giselle Traore MD [address] [place] [address] 57632 [phone] Rehab, [facility] Cardiac 03/29/2019 Gearman Visit Cardiac Rehabilitation Giselle Traore MD [address] [place] [address] 15220 [phone] Rehab, [facility] Cardiac 03/31/2019 Gearman Visit Cardiac Rehabilitation Giselle Traore MD [address] [place] [address] 85241 [phone] Rehab, [facility] Cardiac 04/03/2019 Gearman Visit Cardiac Rehabilitation Giselle Traore MD [address] [place] [address] 12268 [phone] Rehab, [facility] Cardiac 04/05/2019 Gearman Visit Cardiac Rehabilitation Giselle Traore MD [address] [place] [address] [phone] Rehab, [facility] Cardiac 04/11/2019 Office Visit Family Medicine Aria Loja MD [address] [place] [address] [phone] 07/03/2019 Office Visit Cardiology Giselle Traore MD [address] [place] [address] 75466 [phone] Health Maintenance Due Date Last Done Comments [...] GLU 146 (H) 70 - 110 mg/dL [facility] Specimen Blood Performing Organization Address City/State/Zipcode Phone Number [facility] CLIA: [id number], [address] [place] [address] [id number] [facility] documented in 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 Visit Diagnoses Diagnosis Atherosclerosis of curyung coronary artery of curyung heart without angina pectoris 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, unspecified whether extermination inspector insulin use documented in 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 Insurance Payer Benefit Plan Subscriber ID Effective Phone Address Type / Group Dates MEDICARE MEDICARE PART xxxxxxxxxxx 2004-Walter [phone] Medicare A & B nt 82 [id number] [place] [id number] NEW [employer] LIFE [id number] 2016-Pres Lan[employer] ent documented as of 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
--- OUTSIDE RECORDS SUMMARY | 2019-02-19 17:12 | XMS REPORT | Summary of Care ---
:1940 Author Organization [facility] Address [address] [place] [phone] Care Team Providers Name Role Phone Aria Loja MD Primary Care Provider Reason for Visit Reason Comments CAD (Routine) Status Reason Specialty Diagnoses / Referred By Referred To Procedures Contact Contact Authorized IM-CARDIOVASCULAR Diagnoses Phase 2 CAD DM2 Giselle Traore, Rehab, [facility] DISEASE / Cardiac Procedures ME OUTPATIENT CARDIAC REHAB W/CONT ECG MONITORING PHASE 2/MONITORED EXERCISE Cardiac Rehabilitation [address] [place] [address] [address] [place] [address] Encounter Details Date Type Department Care Team Description 02/13/2019 Retirement Manager Visit [facility] Giselle Tarore MD [address] [facility] [address] [place], [place] [phone] Atherosclerosis of sh[place] ir[place] coronary artery of [place] heart without angina pectoris; Cardiac Rehab, Adc Cardiac 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, unspecified 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 Rehabilitation- [facility] [address] [place] [address] [address], [address] [place] [address] Allergies Active Allergy Reactions Severity [...] 06/15/2018 Dizziness 06/15/2018 Coronary artery disease involving sh[place] ira coronary artery of [place] ir[place] heart 06/15 without angina pectoris Essential [...] Treatment Date Type Specialty Care Team Description 02/15/2019 Retirement Manager Visit Cardiac Rehabilitation Giselle Traore MD [address] [place] [address] [place] [address] Rehab, [facility] Cardiac 02/17/2019 Retirement Manager Visit Cardiac Rehabilitation Giselle Traore MD [address] [place] [address] [place] [address] [phone] Rehab, [facility] Cardiac 02/22/2019 Retirement Manager Visit Cardiac Rehabilitation Giselle Traore MD [address] [place] [address] [phone] Rehab, [facility] Cardiac 02/24/2019 Retirement Manager Visit Cardiac Rehabilitation Giselle Traore MD [address] [place] [address] [phone] Rehab, [facility] Cardiac 02/27/2019 Retirement Manager Visit Cardiac Rehabilitation Giselle Traore MD [address] [place] [address] [phone] Rehab, [facility] Cardiac 03/01/2019 Retirement Manager Visit Cardiac Rehabilitation Giselle Traore MD [address] [place] [address] [phone] Rehab, [facility] Cardiac 03/03/2019 Retirement Manager Visit Cardiac Rehabilitation Giselle Traore MD [address] [place] [address] [phone] Rehab, [facility] Cardiac 03/06/2019 Retirement Manager Visit Cardiac Rehabilitation Giselle Traore MD [address] [place] [address] [phone] Rehab, [facility] Cardiac 03/08/2019 Retirement Manager Visit Cardiac Rehabilitation Giselle Traore MD [address] [place] [address] [phone] Rehab, [facility] Cardiac 03/09/2019 Office Visit Allergy & Immunology: Kelsi Stauffer Internal Medicine MD Brittni [address] [place], [place] [phone] 03/10/2019 Office Visit Allergy & Immunology: Kelsi Stauffer Internal Medicine MD Brittni [address] [place] [address] [place], [place] [phone] 03/10/2019 Retirement Manager Visit Cardiac Rehabilitation Giselle Traore MD [address] [place] [address] Rehab, [facility] Cardiac 03/13/2019 Retirement Manager Visit Cardiac Rehabilitation Giselle Traore MD [address] [place] [address] Rehab, [facility] Cardiac 03/15/2019 Retirement Manager Visit Cardiac Rehabilitation Giselle Traore MD [address] [place] [address] Rehab, [facility] Cardiac 03/17/2019 Retirement Manager Visit Cardiac Rehabilitation Giselle Traore MD [address] [place] [address] Rehab, [facility] Cardiac 03/20/2019 Retirement Manager Visit Cardiac Rehabilitation Giselle Traore MD [address] [place] [address] Rehab, [facility] Cardiac 03/22/2019 Retirement Manager Visit Cardiac Rehabilitation Giselle Traore MD [address] [place] [address] Rehab, [facility] Cardiac 03/24/2019 Retirement Manager Visit Cardiac Rehabilitation Giselle Traore MD [address] [place] [address] Rehab, [facility] Cardiac 03/27/2019 Retirement Manager Visit Cardiac Rehabilitation Giselle Traore MD [address] [place] [address] Rehab, [facility] Cardiac 03/29/2019 Retirement Manager Visit Cardiac Rehabilitation Giselle Traore MD [address] [address] [phone] Rehab, [facility] Cardiac 03/31/2019 Retirement Manager Visit Cardiac Rehabilitation Giselle Traore MD [address] [address] [phone] Rehab, [facility] Cardiac 04/03/2019 Retirement Manager Visit Cardiac Rehabilitation Giselle Traore MD [address] [address] [phone] Rehab, [facility] Cardiac 04/05/2019 Retirement Manager Visit Cardiac Rehabilitation Giselle Traore MD [address] [address] [phone] Rehab, [facility] Cardiac 04/11/2019 Office Visit Family Medicine Aria Loja MD [address] [place] [address] [phone] 07/03/2019 Office Visit Cardiology Giselle Traore MD [address] [phone] Health Maintenance Due Date Last Done Comments [...] Date/Time Associated Diagnosis Comments POCT GLUCOSE Routine 02/13/2019 10:19 AM Results for this (AUTOMATED) CDT procedure are in the results section. documented in 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 Results POCT GLUCOSE (AUTOMATED) (02/13/2019 10:19 AM CDT) POCT GLU 193 (H) 70 - 110 mg/dL [facility] Specimen Blood Performing Organization Address City/State/Zipcode Phone Number [facility] CLIA: [id number], [address] [place] [address] [facility] documented in 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 Visit Diagnoses Diagnosis Atherosclerosis of [place] coronary artery of [place] heart without angina pectoris 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, unspecified whether correction insulin use documented in 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 Insurance Payer Benefit Plan Subscriber ID Effective Phone Address Type / Group Dates MEDICARE MEDICARE PART xxxxxxxxxxx 2004-Walter [phone] Medicare A & B nt [id number] [place] [phone] [employer] [id number] 2016- Indemnity ent documented as of 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
[2019-02-19 18:06] LABS: Absolute Lymphocytes (CBC) 1.8 K/uL (0.7-4.9); Basophils % 0.7 % (0-1.3); Lymphocytes % 13.9 % (15.3-44.8); MPV 9.4 fL (7.6-11.3); RBC Red Blood Cell Count 4.32 M/uL (4.33-5.43)
--- NOTE | 2019-02-19 18:13 | ER ---
Nurse's Notes [facility] Name: Dave Moreland Age: 79 yrs Sex: Male : 1940 Arrival Date: 02/19/2019 Time: 17:05 Bed 6 Private MD: Diagnosis: Cellulitis and acute lymphangitis, unspecified-posterior scalp;Type 2 diabetes mellitus;Elevated white blood cell count Presentation: 02/19 17:10 Presenting complaint: Patient states: I have been having these red bumps on my head for la1 the last couple days. Transition of care: patient was not received from another setting of care. Onset of symptoms was February 19, 2019. Risk Assessment: Do you want to hurt yourself or someone else? Patient reports no desire to harm self or others. Initial Sepsis Screen: Does the patient meet any 2 criteria? No. Patient's initial sepsis screen is negative. Does the patient have a suspected source of infection? No. Patient's initial sepsis screen is negative. Care prior to arrival: None. 17:10 Method Of Arrival: Ambulatory la1 17:10 Acuity: CLARK 4 la1 Triage Assessment: 17:10 Headache History: Other NOT HEADACHE. General: Appears in no apparent distress. bp comfortable, Behavior is calm, cooperative, appropriate for age. Pain: Complains of pain in scalp Pain currently is 5 out of 10 on a pain scale. Pain began 2-3 days ago. Also complains of no other associated symptoms. EENT: No deficits noted. Neuro: Level of Consciousness is awake, alert, obeys commands, Oriented to person, place, time, situation, Appropriate for age. Cardiovascular: No deficits noted. Respiratory: No deficits noted. GI: No signs and/or symptoms were reported involving the gastrointestinal system. : No signs and/or symptoms were reported regarding the genitourinary system. Derm: No deficits noted. Musculoskeletal: No deficits noted. Historical: - Allergies: 17:11 Codeine; la1 - PMHx: 17:11 Diabetes - NIDDM; GERD; Hyperlipidemia; Hypertension; Myocardial infarction; prostate la1 problems; - Immunization history:: Adult Immunizations up to date. - Social history:: Smoking status: Patient/guardian denies using tobacco. - Ebola Screening: : No symptoms or risks identified at this time. - Family history:: not pertinent. Screenin:34 Abuse screen: Denies threats or abuse. Denies injuries from another. Nutritional bp screening: No deficits noted. Tuberculosis screening: No symptoms or risk factors identified. Fall Risk None identified. Assessment: 17:34 General: SEE TRIAGE NOTE. Pain: Complains of pain in scalp. bp 18:04 Reassessment: ABX PENDING FROM PHARMACY. bp 19:00 Reassessment: D/C ON HOLD FOR ABX. bp 19:21 Reassessment: Patient is alert, oriented x 3, equal unlabored respirations, skin bb warm/dry/pink. pt receiving IV antibiotics will discharge on completion, IV site intact, patent with fluids infusing, family at bedside. Vital Signs: 17:11 BP 116 / 87; Pulse 60; Resp 16; Temp 97.1; Pulse Ox 100% on R/A; Weight 81.65 kg; la1 Height 5 ft. 9 in. (175.26 cm); 18:05 BP 154 / 70; Pulse 54; Resp 16; Pulse Ox 100% ; bp 19:21 BP 155 / 72; Pulse 54; Resp 16 S; Pulse Ox 99% on R/A; bb 20:54 BP 133 / 66; Pulse 58; Resp 16 S; Temp 98.2(O); Pulse Ox 99% on R/A; bb 17:11 Body Mass Index 26.58 (81.65 kg, 175.26 cm) la1 ED Course: 17:05 Patient arrived in ED. mr 17:11 Triage completed. la1 17:12 Arm band placed on left wrist. la1 17:30 Jalil Silva MD is Attending Physician. jaxon 17:32 Chet Hernandez, EVETTE is Primary Nurse. bp 17:34 Patient has correct armband on for positive identification. Bed in low position. Call bp light in reach. Side rails up X2. Adult w/ patient. 17:50 Inserted saline lock: 20 gauge in right antecubital area, using aseptic technique. bp Blood collected. 18:12 Temo Lees MD is Referral Physician. jaxon 20:51 Removal of peripheral IV. Catheter intact, dressing applied. ag4 20:56 No provider procedures requiring assistance completed. IV discontinued, intact, bb bleeding controlled, No redness/swelling at site. Pressure dressing applied. Administered Medications: 18:04 Drug: NS 0.9% 500 ml Route: IV; Rate: bolus; Site: right antecubital; bp 19:00 Follow up: IV Status: Completed infusion; IV Intake: 500ml bb 18:04 Drug: Doxycycline 200 mg Route: PO; bp 20:55 Follow up: Response: No adverse reaction bb 18:04 Drug: Bactrim (160 mg-800 mg (DS) 1 tablet Route: PO; bp 20:55 Follow up: Response: No adverse reaction bb 18:24 Drug: vancoMYCIN 1 grams Route: IVPB; Infused Over: 2 hrs; Site: left antecubital; hj 20:55 Follow up: IV Status: Completed infusion; IV Intake: 250ml bb Intake: 19:00 IV: 500ml; Total: 500ml. bb 20:55 IV: 250ml; Total: 750ml. bb Outcome: 18:12 Discharge ordered by . jaxon 20:56 Discharged to home ambulatory, with family. bb 20:56 Condition: stable 20:56 Discharge instructions given to patient, Instructed on discharge instructions, follow up and referral plans. medication usage, Demonstrated understanding of instructions, follow-up care, medications, Prescriptions given X 3. 20:56 Patient left the ED. bb Signatures: Jalli Silva MD MD cha Rivera, Mary Kacey Johnson RN RN bb Attema, Lee RN RN laMoises Duenas RN RN hj Peltier, Brian, RN RN Jamie Scott ag4 Corrections: (The following items were deleted from the chart) 19:16 19:15 BP 155 / 72; Pulse 57bpm; Resp 16bpm; Spontaneous; Pulse Ox 99% RA; Temp 99.3F bb Oral; bb
--- NOTE | 2019-02-19 18:14 | EDPHYS ---
Physician Documentation [facility] Name: Dvae Moreland Age: 79 yrs Sex: Male : 1940 Arrival Date: 02/19/2019 Time: 17:05 Bed 6 Private MD: ED Physician Jalil Silva HPI: 02/19 17:39 This 79 yrs old Male presents to ER via Ambulatory with complaints of Rash, jaxon Headache. 17:39 The patient's rash thought to be caused by Dermatitis. The rash is located on the jaxon scalp. The rash can be described as diffuse, erythematous, plaque-like, raised. Onset: The symptoms/episode began/occurred 2 day(s) ago. Associated signs and symptoms: Pertinent positives: burning sensation, itching, Pain. Severity of symptoms: At their worst the symptoms were mild moderate in the emergency department the symptoms are unchanged. The patient has not experienced similar symptoms in the past. Historical: - Allergies: 17:11 Codeine; la1 - PMHx: 17:11 Diabetes - NIDDM; GERD; Hyperlipidemia; Hypertension; Myocardial infarction; prostate la1 problems; - Immunization history:: Adult Immunizations up to date. - Social history:: Smoking status: Patient/guardian denies using tobacco. - Ebola Screening: : No symptoms or risks identified at this time. - Family history:: not pertinent. ROS: 17:39 Constitutional: Negative for fever, chills, and weight loss, Eyes: Negative for injury, jaxon pain, redness, and discharge, ENT: Negative for injury, pain, and discharge, Neck: Negative for injury, pain, and swelling, Cardiovascular: Negative for chest pain, palpitations, and edema, Respiratory: Negative for shortness of breath, cough, wheezing, and pleuritic chest pain, Abdomen/GI: Negative for abdominal pain, nausea, vomiting, diarrhea, and constipation, Back: Negative for injury and pain, : Negative for injury, bleeding, discharge, and swelling, MS/Extremity: Negative for injury and deformity, Neuro: Negative for headache, weakness, numbness, tingling, and seizure, Psych: Negative for depression, anxiety, suicide ideation, homicidal ideation, and hallucinations, Allergy/Immunology: Negative for hives, rash, and allergies, Endocrine: Negative for neck swelling, polydipsia, polyuria, polyphagia, and marked weight changes, Hematologic/Lymphatic: Negative for swollen nodes, abnormal bleeding, and unusual bruising. 17:39 Skin: Positive for erythema, pustules, rash, swelling, of the scalp. Exam: 17:39 Constitutional: This is a well developed, well nourished patient who is awake, alert, jaxon and in no acute distress. Head/Face: Normocephalic, atraumatic. Eyes: Pupils equal round and reactive to light, extra-ocular motions intact. Lids and lashes normal. Conjunctiva and sclera are non-icteric and not injected. Cornea within normal limits. Periorbital areas with no swelling, redness, or edema. ENT: Nares patent. No nasal discharge, no septal abnormalities noted. Tympanic membranes are normal and external auditory canals are clear. Oropharynx with no redness, swelling, or masses, exudates, or evidence of obstruction, uvula midline. Mucous membranes moist. Neck: Trachea midline, no thyromegaly or masses palpated, and no cervical lymphadenopathy. Supple, full range of motion without nuchal rigidity, or vertebral point tenderness. No Meningismus. Chest/axilla: Normal chest wall appearance and motion. Nontender with no deformity. No lesions are appreciated. Cardiovascular: Regular rate and rhythm with a normal S1 and S2. No gallops, murmurs, or rubs. Normal PMI, no JVD. No pulse deficits. Respiratory: Lungs have equal breath sounds bilaterally, clear to auscultation and percussion. No rales, rhonchi or wheezes noted. No increased work of breathing, no retractions or nasal flaring. Abdomen/GI: Soft, non-tender, with normal bowel sounds. No distension or tympany. No guarding or rebound. No evidence of tenderness throughout. Back: No spinal tenderness. No costovertebral tenderness. Full range of motion. Male : Normal genitalia with no discharge or lesions. MS/ Extremity: Pulses equal, no cyanosis. Neurovascular intact. Full, normal range of motion. Neuro: Awake and alert, GCS 15, oriented to person, place, time, and situation. Cranial nerves II-XII grossly intact. Motor strength 5/5 in all extremities. Sensory grossly intact. Cerebellar exam normal. Normal gait. Psych: Awake, alert, with orientation to person, place and time. Behavior, mood, and affect are within normal limits. 17:39 Skin: cellulitis, that is mild, that is moderate, induration, that is mild is noted, located on the scalp. Vital Signs: 17:11 BP 116 / 87; Pulse 60; Resp 16; Temp 97.1; Pulse Ox 100% on R/A; Weight 81.65 kg; la1 Height 5 ft. 9 in. (175.26 cm); 18:05 BP 154 / 70; Pulse 54; Resp 16; Pulse Ox 100% ; bp 19:21 BP 155 / 72; Pulse 54; Resp 16 S; Pulse Ox 99% on R/A; bb 20:54 BP 133 / 66; Pulse 58; Resp 16 S; Temp 98.2(O); Pulse Ox 99% on R/A; bb 17:11 Body Mass Index 26.58 (81.65 kg, 175.26 cm) la1 MDM: 17:30 Patient medically screened. [facility] 18:13 Data reviewed: vital signs, nurses notes, lab test result(s), CBC, electrolytes, [facility] hepatic panel. 02/19 17:39 Order name: CBC with Diff; Complete Time: 18:11 [facility] 02/19 17:39 Order name: Comprehensive Metabolic Panel; Complete Time: 18:51 [facility] Administered Medications: 18:04 Drug: NS 0.9% 500 ml Route: IV; Rate: bolus; Site: right antecubital; bp 19:00 Follow up: IV Status: Completed infusion; IV Intake: 500ml bb 18:04 Drug: Doxycycline 200 mg Route: PO; bp 20:55 Follow up: Response: No adverse reaction bb 18:04 Drug: Bactrim (160 mg-800 mg (DS) 1 tablet Route: PO; bp 20:55 Follow up: Response: No adverse reaction bb 18:24 Drug: vancoMYCIN 1 grams Route: IVPB; Infused Over: 2 hrs; Site: left antecubital; hj 20:55 Follow up: IV Status: Completed infusion; IV Intake: 250ml bb Disposition: 02/19/19 18:12 Discharged to Home. Impression: Cellulitis and acute lymphangitis, unspecified - posterior scalp, Type 2 diabetes mellitus, Elevated white blood cell count. - Condition is Stable. - Discharge Instructions: Cellulitis, Adult, Type 2 Diabetes Mellitus, Diagnosis, Adult, Cellulitis, Adult, [id number], Type 2 Diabetes Mellitus, Diagnosis, Adult, [id number]-[id number]. - Prescriptions for Doxycycline Hyclate 100 mg Oral Tablet - take 1 tablet by ORAL route every 12 hours; 20 tablet. Bactrim DS 800- 160 mg Oral Tablet - take 1 tablet by ORAL route every 12 hours for 10 days; 20 tablet. Bactroban 2 % Topical Ointment - Apply to affected area 1 application by TOPICAL route every 12 hours; 30 gram. - Medication Reconciliation Form, Thank You Letter, Antibiotic Education, Prescription Opioid Use form. - Follow up: Private Physician; When: 2 - 3 days; Reason: Recheck today's complaints, Continuance of care, Re-evaluation by your physician. Follow up: Temo Lees; When: 2 - 3 days; Reason: Recheck today's complaints, Continuance of care, Re-evaluation by your physician. - Problem is new. - Symptoms have improved. Signatures: Dispatcher [employer] EDMS Jalil Silva MD MD cha Ballard, Brenda, RN RN bb Eligio Fatima RN RN la1 Moises Calixto RN RN Chet Hernandez RN RN bp Corrections: (The following items were deleted from the chart) 18:13 18:12 02/19/2019 18:12 Discharged to Home. Impression: Cellulitis and acute jaxon lymphangitis, unspecified - posterior scalp; Type 2 diabetes mellitus. Condition is Stable. Discharge Instructions: Cellulitis, Adult, Type 2 Diabetes Mellitus, Diagnosis, Adult, Cellulitis, Adult, [id number], Type 2 Diabetes Mellitus, Diagnosis, Adult, [id number]. Prescriptions for Doxycycline Hyclate 100 mg Oral Tablet - take 1 tablet by ORAL route once daily; 10 tablet, Bactrim DS 800-160 mg Oral Tablet - take 1 tablet by ORAL route every 12 hours for 10 days; 20 tablet. and Forms are Medication Reconciliation Form, Thank You Letter, Antibiotic Education, Prescription Opioid Use. Follow up: Private Physician; When: 2 - 3 days; Reason: Recheck today's complaints, Continuance of care, Re-evaluation by your physician. Follow up: Temo Lees; When: 2 - 3 days; Reason: Recheck today's complaints, Continuance of care, Re-evaluation by your physician. Problem is new. Symptoms have improved. [facility] 20:56 18:13 02/19/2019 18:12 Discharged to Home. Impression: Cellulitis and acute bb lymphangitis, unspecified - posterior scalp; Type 2 diabetes mellitus; Elevated white blood cell count. Condition is Stable. Discharge Instructions: Cellulitis, Adult, Type 2 Diabetes Mellitus, Diagnosis, Adult, Cellulitis, Adult, Vpjd-[id number]-Tvao, Type 2 Diabetes Mellitus, Diagnosis, Adult, [id number]. Prescriptions for Doxycycline Hyclate 100 mg Oral Tablet - take 1 tablet by ORAL route once daily; 10 tablet, Bactrim DS 800-160 mg Oral Tablet - take 1 tablet by ORAL route every 12 hours for 10 days; 20 tablet, Bactroban 2 % Topical Ointment - Apply to affected area 1 application by TOPICAL route every 12 hours; 30 gram. and Forms are Medication Reconciliation Form, Thank You Letter, Antibiotic Education, Prescription Opioid Use. Follow up: Private Physician; When: 2 - 3 days; Reason: Recheck today's complaints, Continuance of care, Re-evaluation by your physician. Follow up: Temo Lees; When: 2 - 3 days; Reason: Recheck today's complaints, Continuance of care, Re-evaluation by your physician. Problem is new. Symptoms have improved. jaxon
[2019-02-19 18:23] LABS: Albumin 3.3 g/dL (3.4-5.0); Bilirubin Total 0.2 mg/dL (0.2-1.0); Potassium 4.3 mmol/L (3.5-5.1); Protein, Total 6.7 g/dL (6.4-8.2)
[2019-02-19] MEDS ORDERED: VANCOMYCIN 1.5 GM in NA CHLORIDE 0.9% 500 ML IVPB ONE (19:00)
== END 2019-02-19 20:56 | disposition home or self-care (01) ==
LOC: ER 17:03
DX: L03.811 Cellulitis of head [any part, except face] (principal); I89.1 Lymphangitis; E11.9 Type 2 diabetes mellitus without complications; D72.829 Elevated white blood cell count, unspecified; Z88.6 Allergy status to analgesic agent
CPT/HCPCS: 36415; 80053; 85025; 96365; 96366; 99284

== ENCOUNTER 2019-02-26 13:51 | Emergency (ER) | payer OTHER ==
--- OUTSIDE RECORDS SUMMARY | 2019-02-26 13:53 | XMS REPORT ---
:1940 Author Organization [facility] Address [address] [place] [address] [address] [place] [address] Care Team Providers Name Role Phone Unavailable Unavailable Unavailable Problems This patient has no known problems. Allergies, Adverse Reactions, Alerts This patient has no known allergies or adverse reactions. Medications This patient has no known medications.
--- OUTSIDE RECORDS SUMMARY | 2019-02-26 14:01 | XMS REPORT | Summary of Care ---
:1940 Author Organization [facility] Address [address] [place] [address] Care Team Providers Name Role Phone Aria Loja MD Primary Care Provider Reason for Visit Reason Comments CAD (Routine) Status Reason Specialty Diagnoses / Referred By Referred To Procedures Contact Contact Authorized IM-CARDIOVASCULAR Diagnoses Phase 2 CAD DM2 Giselle Traore, Rehab, [facility] DISEASE / Cardiac Procedures [place] OUTPATIENT [facility]IAC REHAB W/CONT ECG MONITORING PHASE 2/MONITORED EXERCISE Cardiac Rehabilitation [address] [place] [address] [address] [place] [address] Encounter Details Date Type Department Care Team Description 02/13/2019 Regional Trainer Visit [facility] Giselle Traore MD [address] [facility] [address] [place], [place] [id number] Atherosclerosis of [place] coronary artery of [place] heart without angina pectoris; Cardiac Rehab, [facility] Cardiac 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, unspecified whether halfway insulin use Rehabilitation- [facility] [address] [place] [address] [address], [address] [place] [address] Allergies Active Allergy Reactions Severity Noted Date Comments Canagliflozin Other - See comments 01/18/2017 Genital mycotic infections Codeine Rash 06/15/2018 documented as of 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 (statuses as of 02/24/2019) Medications Medication Sig Dispensed Refills Start Date [...] as of 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 (statuses as of 02/24/2019) Active Problems Problem Noted Date Elevated sed rate 10/05/2018 Low ferritin 09/14/2018 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, without long-term current use of insulin Bradycardia 06/15/2018 Weakness 06/15/2018 Dizziness 06/15/2018 Coronary artery disease involving [place] coronary artery of [place] heart 06/15 without angina pectoris Essential hypertension 06/15/2018 PAF (paroxysmal atrial fibrillation) 06/15/2018 documented as of 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 (statuses as of 02/24/2019) Social History Tobacco Use Types Packs/Day Years [...] Treatment Date Type Specialty Care Team Description 02/27/2019 Regional Trainer Visit Cardiac Rehabilitation Giselle Traore MD [address] [place] [address] [place] [phone] Rehab, [facility] Cardiac 03/01/2019 Regional Trainer Visit Cardiac Rehabilitation Giselle Traore MD [address] [place] [address] [place] [address] [phone] Rehab, [facility] Cardiac 03/03/2019 Regional Trainer Visit Cardiac Rehabilitation Giselle Traore MD [address] [place] [address] [place] [address] [phone] Rehab, [facility] Cardiac 03/06/2019 Regional Trainer Visit Cardiac Rehabilitation Giselle Traore MD [address] [place] [address] [place] [address] [phone] Rehab, [facility] Cardiac 03/08/2019 Regional Trainer Visit Cardiac Rehabilitation Giselle Traore MD [address] [place] [address] [phone] Rehab, [facility] Cardiac 03/09/2019 Office Visit Allergy & Immunology: Kelsi Stauffer MD [address] [facility] [address] [place] [address] [phone] 03/10/2019 Office Visit Allergy & Immunology: Kelsi Stauffer MD [address] [facility] [address] [place] [address] [phone] 03/10/2019 Regional Trainer Visit Cardiac Rehabilitation Giselle Traore MD [address] [place] [address] [phone] Rehab, [facility] Cardiac 03/13/2019 Regional Trainer Visit Cardiac Rehabilitation Giselle Traore MD [address] [place] [address] [place] [address] [phone] Rehab, [facility] Cardiac 03/15/2019 Regional Trainer Visit Cardiac Rehabilitation Giselle Traore MD [address] [place] [address] [place] [address] [phone] Rehab, [facility] Cardiac 03/17/2019 Regional Trainer Visit Cardiac Rehabilitation Giselle Traore MD [address] [place] [phone] Rehab, [facility] Cardiac 03/20/2019 Regional Trainer Visit Cardiac Rehabilitation Giselle Traore MD [address] [place] [phone] Rehab, [facility] Card[facility] 03/22/2019 Regional Trainer Visit Cardiac Rehabilitation Giselle Traore MD [address] [place] [phone] Rehab, [facility] Cardiac 03/24/2019 Regional Trainer Visit Cardiac Rehabilitation Giselle Traore MD [address] [place] [phone] Rehab, [facility] Cardiac 03/27/2019 Regional Trainer Visit Cardiac Rehabilitation Giselle Traore MD [address] [place] [phone] Rehab, [facility] Cardiac 03/29/2019 Regional Trainer Visit Cardiac Rehabilitation Giselle Traore MD [address] [place] [phone] Rehab, [facility] Cardiac 03/31/2019 Regional Trainer Visit Cardiac Rehabilitation Giselle Traore MD [address] [place] [phone] Rehab, [facility] Cardiac 04/03/2019 Regional Trainer Visit Cardiac Rehabilitation Giselle Traore MD [address] [place] [phone] Rehab, [facility] Cardiac 04/05/2019 Regional Trainer Visit Cardiac Rehabilitation Giselle Traore MD [address] [place] [phone] Rehab, [facility] Cardiac 04/11/2019 Office Visit Family Medicine Aria Loja MD [address] [place] [address] [facility] [place] [address] 07/03/2019 Office Visit Cardiology Giselle Traore MD [address] [facility] [address] [place] [address] [phone] Health Maintenance Due Date Last Done Comments [...] GLU 193 (H) 70 - 110 mg/dL [facility] Specimen Blood Performing Organization Address City/State/Zipcode Phone Number [facility] CLIA: [id number], [address] [place] [phone] [facility] documented in 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 Visit Diagnoses Diagnosis Atherosclerosis of [place] coronary artery of [place] heart without angina pectoris 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, unspecified whether 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 Medicare [id number] [place] [address] [employer] [id number] 2016- Indemnity ent documented as of 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
--- NOTE | 2019-02-26 14:48 | EDPHYS ---
Physician Documentation [facility] Name: Dave Moreland Age: 79 yrs Sex: Male : 1940 Arrival Date: 02/26/2019 Time: 13:52 Bed 25 Private MD: ED Physician Rufus Carranza HPI: 02/26 15:06 This 79 yrs old Male presents to ER via Ambulatory with complaints of Ear jr8 Pain. 15:06 The patient presents with pain. The complaints affect the right ear. Onset: The jr8 symptoms/episode began/occurred gradually, 2 month(s) ago. Modifying factors: The symptoms are alleviated by nothing, the symptoms are aggravated by nothing. Associated signs and symptoms: The patient has no apparent associated signs or symptoms. Severity of symptoms: At their worst the symptoms were mild in the emergency department the symptoms are unchanged. The patient has not experienced similar symptoms in the past. The patient has not recently seen a physician. Patient stated that he noticed what use to be a small red area to the right auricular region. Stated that he has had it for about 6 + weeks now. Had taken two rounds of antibiotics for other skin infections and still did not help. Has been more painful lately and wanted it to be evaluated . Historical: - Allergies: 14:10 Codeine; aj1 - Home Meds: 14:10 aspirin 81 mg Oral chew 1 tab once daily [Active]; clopidogrel 75 mg Oral tab 1 tab aj1 once daily [Active]; finasteride 5 mg Oral tab 1 tab once daily [Active]; gabapentin 100 mg Oral cap twice a day [Active]; isosorbide mononitrate 60 mg Oral Tb24 1 tab once daily [Active]; metformin 500 mg Oral tab 1 tab 2 times per day [Active]; lisinopril 20 mg Oral tab 1 tab once daily [Active]; pantoprazole 40 mg Oral TbEC 1 tab once daily [Active]; tamsulosin 0.4 mg Oral cp24 1 cap once daily [Active]; - PMHx: 14:10 Diabetes - NIDDM; GERD; Hyperlipidemia; Hypertension; Myocardial infarction; prostate aj1 problems; - Immunization history:: Flu vaccine is up to date. - Social history:: Smoking status: Patient/guardian denies using tobacco. - Ebola Screening: : Patient denies travel to an Ebola-affected area in the 21 days before illness onset. ROS: 15:06 Eyes: Negative for injury, pain, redness, and discharge, Neck: Negative for injury, jr8 pain, and swelling, Cardiovascular: Negative for chest pain, palpitations, and edema, Respiratory: Negative for shortness of breath, cough, wheezing, and pleuritic chest pain, Abdomen/GI: Negative for abdominal pain, nausea, vomiting, diarrhea, and constipation, Back: Negative for injury and pain, MS/Extremity: Negative for injury and deformity, Neuro: Negative for headache, weakness, numbness, tingling, and seizure. 15:06 ENT: Positive for ear pain, Negative for drainage from ear(s), nasal discharge, rhinorrhea, sinus congestion, sinus pain, sore throat, dental pain, difficulty swallowing, difficulty handling secretions, hoarseness. 15:06 Skin: Positive for lesions, of the right ear. Exam: 15:06 Head/Face: Normocephalic, atraumatic. Eyes: Pupils equal round and reactive to light, jr8 extra-ocular motions intact. Lids and lashes normal. Conjunctiva and sclera are non-icteric and not injected. Cornea within normal limits. Periorbital areas with no swelling, redness, or edema. Neck: Trachea midline, no thyromegaly or masses palpated, and no cervical lymphadenopathy. Supple, full range of motion without nuchal rigidity, or vertebral point tenderness. No Meningismus. Cardiovascular: Regular rate and rhythm with a normal S1 and S2. No gallops, murmurs, or rubs. Normal PMI, no JVD. No pulse deficits. Respiratory: Lungs have equal breath sounds bilaterally, clear to auscultation and percussion. No rales, rhonchi or wheezes noted. No increased work of breathing, no retractions or nasal flaring. Abdomen/GI: Soft, non-tender, with normal bowel sounds. No distension or tympany. No guarding or rebound. No evidence of tenderness throughout. Back: No spinal tenderness. No costovertebral tenderness. Full range of motion. Skin: Warm, dry with normal turgor. Normal color with no rashes, no lesions, and no evidence of cellulitis. MS/ Extremity: Pulses equal, no cyanosis. Neurovascular intact. Full, normal range of motion. Neuro: Awake and alert, GCS 15, oriented to person, place, time, and situation. Cranial nerves II-XII grossly intact. Motor strength 5/5 in all extremities. Sensory grossly intact. Cerebellar exam normal. Normal gait. 15:06 ENT: Exam is negative for ear discharge, TM abnormalities, nasal discharge, sinus tenderness, pharyngitis, dysphagia, Patient has 1.5 cm raised slightly red irregular bordered lesion with scabing noted to right auricle region of ear. No active bleeding or discharge at this time . Vital Signs: 14:10 BP 146 / 74; Pulse 69; Resp 18; Temp 98.3; Pulse Ox 97% on R/A; Weight 84.37 kg (R); aj1 Height 5 ft. 10 in. (177.80 cm) (R); 15:22 BP 141 / 76; Pulse 66; Resp 14; Pulse Ox 97% on R/A; rv 14:10 Body Mass Index 26.69 (84.37 kg, 177.80 cm) aj1 MDM: 14:26 Patient medically screened. jr8 14:46 Data reviewed: vital signs, nurses notes, and as a result, I will discharge patient. jr8 Data interpreted: Pulse oximetry: on room air is 97 %. Interpretation: normal. Counseling: I had a detailed discussion with the patient and/or guardian regarding: the historical points, exam findings, and any diagnostic results supporting the discharge/admit diagnosis, the need for outpatient follow up, an ENT specialist, to return to the emergency department if symptoms worsen or persist or if there are any questions or concerns that arise at home. Administered Medications: No medications were administered Disposition: 18:05 Co-signature as Attending Physician, Rufus Carranza MD. rn Disposition: 02/26/19 14:47 Discharged to Home. Impression: Open wound of ear. - Condition is Stable. - Discharge Instructions: Squamous Cell Carcinoma. - Medication Reconciliation Form, Thank You Letter, Antibiotic Education, Prescription Opioid Use form. - Follow up: Gabriella Rai MD; When: Tomorrow; Reason: Recheck today's complaints, Continuance of care, Re-evaluation by your physician. - Problem is new. - Symptoms have improved. Signatures: Babs Ordoñez RN RN aj1 Rufus Carranza MD MD rn Roszak, Josh, PA PA jr8 Freddy, Alexy, RN RN rv Corrections: (The following items were deleted from the chart) 15:23 14:47 02/26/2019 14:47 Discharged to Home. Impression: Open wound of ear. Condition is rv Stable. Forms are Medication Reconciliation Form, Thank You Letter, Antibiotic Education, Prescription Opioid Use. Follow up: Gabriella Rai; When: Tomorrow; Reason: Recheck today's complaints, Continuance of care, Re-evaluation by your physician. Problem is new. Symptoms have improved. jr8
--- NOTE | 2019-02-26 14:48 | ER ---
Nurse's Notes [facility] Name: Dave Moreland Age: 79 yrs Sex: Male : 1940 Arrival Date: 02/26/2019 Time: 13:52 Bed 25 Private MD: Diagnosis: Open wound of ear Presentation: 02/26 14:08 Presenting complaint: Patient states: "theres a spot in my ear that keeps getting aj1 bigger and bigger and its hurting" Reports pain to right ear. reports that he first noticed the spot on his ear about 5 weeks ago. Transition of care: patient was not received from another setting of care. Onset of symptoms was 2018. Risk Assessment: Do you want to hurt yourself or someone else? Patient reports no desire to harm self or others. Initial Sepsis Screen: Does the patient meet any 2 criteria? No. Patient's initial sepsis screen is negative. Does the patient have a suspected source of infection? No. Patient's initial sepsis screen is negative. Care prior to arrival: None. 14:08 Method Of Arrival: Ambulatory aj1 14:08 Acuity: CLARK 4 aj1 Triage Assessment: 14:10 General: Appears in no apparent distress. comfortable, Behavior is calm, cooperative, aj1 appropriate for age. Pain: Complains of pain in right ear. EENT: Parent/caregiver reports the patient having ear pain. Neuro: Level of Consciousness is awake, alert, obeys commands. Cardiovascular: Patient's skin is warm and dry. Respiratory: Airway is patent Respiratory effort is even, unlabored, Respiratory pattern is regular, symmetrical. Historical: - Allergies: 14:10 Codeine; aj1 - Home Meds: 14:10 aspirin 81 mg Oral chew 1 tab once daily [Active]; clopidogrel 75 mg Oral tab 1 tab aj1 once daily [Active]; finasteride 5 mg Oral tab 1 tab once daily [Active]; gabapentin 100 mg Oral cap twice a day [Active]; isosorbide mononitrate 60 mg Oral Tb24 1 tab once daily [Active]; metformin 500 mg Oral tab 1 tab 2 times per day [Active]; lisinopril 20 mg Oral tab 1 tab once daily [Active]; pantoprazole 40 mg Oral TbEC 1 tab once daily [Active]; tamsulosin 0.4 mg Oral cp24 1 cap once daily [Active]; - PMHx: 14:10 Diabetes - NIDDM; GERD; Hyperlipidemia; Hypertension; Myocardial infarction; prostate aj1 problems; - Immunization history:: Flu vaccine is up to date. - Social history:: Smoking status: Patient/guardian denies using tobacco. - Ebola Screening: : Patient denies travel to an Ebola-affected area in the 21 days before illness onset. Screenin:31 Abuse screen: Denies threats or abuse. Denies injuries from another. Nutritional rv screening: No deficits noted. Tuberculosis screening: No symptoms or risk factors identified. Fall Risk None identified. Assessment: 14:31 General: Appears in no apparent distress. uncomfortable, Behavior is calm, cooperative. rv Pain: Complains of pain in right ear. Neuro: Level of Consciousness is awake. Cardiovascular: Patient's skin is warm and dry. Respiratory: Airway is patent. GI: No signs and/or symptoms were reported involving the gastrointestinal system. : No signs and/or symptoms were reported regarding the genitourinary system. EENT: No signs and/or symptoms were reported regarding the EENT system. Derm: Skin is intact. Musculoskeletal: No signs and/or symptoms reported regarding the musculoskeletal system. Vital Signs: 14:10 BP 146 / 74; Pulse 69; Resp 18; Temp 98.3; Pulse Ox 97% on R/A; Weight 84.37 kg (R); aj1 Height 5 ft. 10 in. (177.80 cm) (R); 15:22 BP 141 / 76; Pulse 66; Resp 14; Pulse Ox 97% on R/A; rv 14:10 Body Mass Index 26.69 (84.37 kg, 177.80 cm) aj1 ED Course: 13:52 Patient arrived in ED. as 14:09 Triage completed. aj1 14:10 Arm band placed on Patient placed in an exam room. aj1 14:14 Alexy Hayes, EVETTE is Primary Nurse. rv 14:25 Aramis Hilario PA is PHCP. jr8 14:25 Rufus Carranza MD is Attending Physician. jr8 14:32 Patient has correct armband on for positive identification. Bed in low position. Call rv light in reach. Side rails up X 1. Pulse ox on. NIBP on. 14:47 Gabriella Rai MD is Referral Physician. jr8 15:23 No provider procedures requiring assistance completed. Patient did not have IV access rv during this emergency room visit. Administered Medications: No medications were administered Outcome: 14:47 Discharge ordered by . jr8 15:23 Discharged to home ambulatory, with family. rv 15:23 Condition: good 15:23 Discharge instructions given to patient, Instructed on discharge instructions, follow up and referral plans. Demonstrated understanding of instructions, follow-up care. 15:23 Patient left the ED. rv Signatures: Babs Ordoñez, RN RN aj1 Shae Mehta Josh PA PA jr8 Alexy Hayes RN RN rv
[2019-02-26 16:59] VITALS: BP 141/76; TEMP 98.3; O2SAT 97
== END 2019-02-26 15:23 | disposition home or self-care (01) ==
LOC: ER 13:51
DX: S01.301A Unspecified open wound of right ear, initial encounter (principal); I10 Essential (primary) hypertension; E78.5 Hyperlipidemia, unspecified; E11.9 Type 2 diabetes mellitus without complications; I25.2 Old myocardial infarction; N42.9 Disorder of prostate, unspecified; Z79.82 Long term (current) use of aspirin; Z88.5 Allergy status to narcotic agent
CPT/HCPCS: 99283

== ENCOUNTER → 2019-03-17 | Day surgery (SDC) | payer OTHER ==
[~2019-03-17] MED LIST: EPHEDRINE SULF 50 MG/ML VIAL ONE; FENTANYL CITR 100 MCG/2 ML ONE; GLYCOPYRROLATE 0.2 MG/ML SYR ONE; LIDOCAINE 1% W/EPI 1:100,000 MDV 20 ML VIAL ONE; LIDOCAINE 2% MPF 5 ML VIAL ONE; MINERAL OIL, LITE 10 ML VIAL ONE; NA CHLORIDE 0.9% 1,000 ML ONE; PROPOFOL 200 MG/20 ML VIAL IV ONE
[2019-03-17 14:38] VITALS: TEMP 97
[2019-03-17 14:56] VITALS: BP 136/62; O2SAT 99
--- NOTE | 2019-03-18 00:21 | OP ---
Date of Procedure: 03/17/2019 Surgeon: Gabriella Rai MD Postoperative Diagnosis: Right ear lesion of uncertain behavior. Postoperative Diagnosis: Squamous cell carcinoma, right ear. Procedure: Excision with frozen section, right ear. Total size of the defect 2 cm with dermal autog raft approximately 3 sq cm. Indication For Procedure: Mr. Moreland is a 79-year-old, who presented with a lesion of the right ear, present for several weeks, previously treated with doxycycline and Bactrim without improvement. Clin ically, the lesion was suspicious for neoplastic condition, likely basal versus squamous cell carcino ma. The risks, benefits, and alternatives to the procedure were discussed with the patient, who agre ed to proceed. Description Of Procedure: He was brought to the operating room. He was placed under general anesthe freddy via LMA. The right ear, face, and neck were prepped in a standard sterile fashion with Betadine and draped. The lesion was examined and was located primarily within the katerine of the right ear. A close margin of approximately 3 mm was designed and full-thickness skin was incised using a knife af ter injection of 1% lidocaine with epinephrine. The specimen was marked with a suture at 12 o'clock indicating the skin adjacent to the root of the helix. The specimen was elevated sharply off the per ichondrium and sent to Pathology for frozen section analysis. Frozen section confirmed a squamous ce ll carcinoma with negative peripheral and deep margins. The defect was approximately 2 cm circular including the majority of the katerine of the ear. A dermal autograft was collected using a scalpel from the right postauricular region. The skin graft was sec ured using interrupted silk sutures and Xeroform bolster was applied to the katerine. The donor site w as treated with cauterization to control small areas of oozing and then dressed with an Adaptic and g auze dressing. The procedure was concluded and the patient was returned to care of Anesthesia for aw akening and extubation in the operating room, which proceeded without difficulty. Complications: None. Disposition: Patient will follow up with Dr. Rai in approximately 10 days for removal of the michelle ster. ANDREA/MODL Voice ID: [id number] Report ID: [id number]
== END | disposition home or self-care (01) ==
LOC: OR 09:57
PROVIDERS: ATTEND Otolaryngology
PROC: 0HR2X73 Replacement of Right Ear Skin with Autologous Tissue Substitute, Full Thickness, External Approach (ICD-10-PCS; principal; 2019-03-17 11:15)
DX: C44.222 Squamous cell carcinoma of skin of right ear and external auricular canal (principal); I25.10 Atherosclerotic heart disease of native coronary artery without angina pectoris; K21.9 Gastro-esophageal reflux disease without esophagitis; E11.9 Type 2 diabetes mellitus without complications; Z86.73 Personal history of transient ischemic attack (TIA), and cerebral infarction without residual deficits; Z79.02 Long term (current) use of antithrombotics/antiplatelets; Z79.82 Long term (current) use of aspirin; Z88.6 Allergy status to analgesic agent; Z95.5 Presence of coronary angioplasty implant and graft; Z80.9 Family history of malignant neoplasm, unspecified; Z82.49 Family history of ischemic heart disease and other diseases of the circulatory system
CPT/HCPCS: 11642; 15135; 82962 ×2; 88331; 88332; 88305; J2704; J3010; J7030

== ENCOUNTER 2019-06-16 05:12 | Inpatient (IN) | payer OTHER ==
--- OUTSIDE RECORDS SUMMARY | 2019-06-16 05:13 | XMS REPORT ---
:1940 Author Organization [facility] Address [address] [place] [address] [address] [place] [address] Care Team Providers Name Role Phone Unavailable Unavailable Unavailable Problems This patient has no known problems. Allergies, Adverse Reactions, Alerts This patient has no known allergies or adverse reactions. Medications This patient has no known medications.
[2019-06-16] MEDS ORDERED: CIPROFLOXACIN 400mg IV 400 MG/200 ML BAG IV ONE (05:38)
[2019-06-16] MEDS ORDERED: FAMOTIDINE 20 MG/2 ML VIAL IV ONE (05:38)
[2019-06-16] MEDS ORDERED: ONDANSETRON 4 MG/2 ML VIAL ONE ×2 (05:38→08:21)
[2019-06-16] MEDS ORDERED: FENTANYL CITR 100 MCG/2 ML ONE (05:38)
[2019-06-16] MEDS ORDERED: NA CHLORIDE 0.9% 2,000 ML ONE (05:38)
[2019-06-16] MEDS ORDERED: METRONIDAZOLE 500mg IVPB 500 MG/100 ML BAG IV ONE ×2 (05:38→10:34)
[2019-06-16 06:07] LABS: Protime INR 0.96
[2019-06-16 06:08] LABS: Absolute Lymphocytes (CBC) 0.4 K/uL (0.7-4.9); Basophils % 0.2 % (0-1.3); Lymphocytes % 2.7 % (15.3-44.8); MPV 9.2 fL (7.6-11.3); RBC Red Blood Cell Count 4.45 M/uL (4.33-5.43)
[2019-06-16 06:14] LABS: ALT/SGPT 31 U/L (12-78); AST/SGOT 15 U/L (15-37); Albumin 3.2 g/dL (3.4-5.0); Alkaline Phosphatase 58 U/L (45-117); BUN Blood Urea Nitrogen 25 mg/dL (7-18); Bicarbonate 21 mmol/L (21-32); Bilirubin Direct < 0.1 mg/dL (0-0.2); Bilirubin Total 0.4 mg/dL (0.2-1.0); Glucose Level 197 mg/dL (74-106); Lipase 163 U/L (73-393); NT PRO-BNP 122 pg/mL (<450); Potassium 4.2 mmol/L (3.5-5.1); Protein, Total 6.5 g/dL (6.4-8.2); Sodium Level 142 mmol/L (136-145); Troponin (Emerg Dept Use Only) < 0.02 ng/mL (0.0-0.045)
--- NOTE | 2019-06-16 06:19 | ER ---
Nurse's Notes [facility] Name: Dave Moreland Age: 79 yrs Sex: Male : 1940 Arrival Date: 06/16/2019 Time: 05:13 Bed 27 Private MD: Diagnosis: Diarrhea, unspecified;Abdominal tenderness-enteritis;Weakness;Type 2 diabetes mellitus;Vomiting Presentation: 06/16 05:05 Presenting complaint: EMS states: Reports N/V/D for the past two days, pt complaining ea of nausea upon EMS arrival 4 zofran administered per EMS. Pt reports he is feeling better. Transition of care: patient was not received from another setting of care. Onset of symptoms was June 16, 2019. Risk Assessment: Do you want to hurt yourself or someone else? Patient reports no desire to harm self or others. Initial Sepsis Screen: Does the patient meet any 2 criteria? No. Patient's initial sepsis screen is negative. Does the patient have a suspected source of infection? No. Patient's initial sepsis screen is negative. Care prior to arrival: None. 05:05 Method Of Arrival: EMS: [facility] ea 05:05 Acuity: CLARK 3 ea Triage Assessment: 05:22 General: Appears in no apparent distress. Behavior is appropriate for age. GI: Reports ea diarrhea, nausea, vomiting. Historical: - Allergies: 05:21 Codeine; ea - Home Meds: 05:21 aspirin 81 mg Oral chew 1 tab once daily [Active]; metformin 500 mg Oral tab 1 tab 2 ea times per day [Active]; lisinopril 20 mg Oral tab 1 tab once daily [Active]; finasteride 5 mg Oral tab 1 tab once daily [Active]; pantoprazole 40 mg Oral TbEC 1 tab once daily [Active]; gabapentin 100 mg Oral cap twice a day [Active]; clopidogrel 75 mg Oral tab 1 tab once daily [Active]; isosorbide mononitrate 60 mg Oral Tb24 1 tab once daily [Active]; - PMHx: 05:21 prostate problems; Myocardial infarction; Hypertension; Hyperlipidemia; GERD; Diabetes ea - NIDDM; - Immunization history:: Adult Immunizations up to date. - Social history:: Smoking status: Patient/guardian denies using tobacco. - Ebola Screening: : No symptoms or risks identified at this time. - Family history:: not pertinent. Screenin:15 Abuse screen: Denies threats or abuse. Nutritional screening: No deficits noted. jd3 Tuberculosis screening: No symptoms or risk factors identified. Fall Risk IV access (20 points). Ambulatory Aid- None/Bed Rest/Nurse Assist (0 pts). Gait- Normal/Bed Rest/Wheelchair (0 pts) Mental Status- Oriented to own ability (0 pts). Total Casper Fall Scale indicates No Risk (0-24 pts). Assessment: 05:14 General: Appears in no apparent distress. uncomfortable, Behavior is calm, cooperative, jd3 appropriate for age. Pain: Complains of pain in abdomen Quality of pain is described as aching, tender. Neuro: Level of Consciousness is awake, alert, obeys commands, Oriented to person, place, time, situation. Cardiovascular: Denies chest pain, Capillary refill < 3 seconds Patient's skin is warm and dry. Respiratory: Airway is patent Respiratory effort is even, unlabored, Respiratory pattern is regular, symmetrical, Denies cough, shortness of breath. GI: Abdomen is distended, Bowel sounds present X 4 quads. Abd is soft X 4 quads Abdomen is tender to palpation X 4 quads. Reports diarrhea, nausea, vomiting. : No signs and/or symptoms were reported regarding the genitourinary system. EENT: No signs and/or symptoms were reported regarding the EENT system. Derm: Skin is intact, Skin is dry, Skin is normal, Skin temperature is warm. Musculoskeletal: Circulation, motion, and sensation intact. Range of motion: intact in all extremities. 07:00 Reassessment: RECD REPORT FROM AUGUST ALAS. 79YO WM P/W NAUSEA, VOMITING, DIARRHEA. PT bp CURRENTLY IN CT. 07:10 Reassessment: PT RETURNED FROM CT. bp Vital Signs: 05:05 BP 120 / 64; Pulse 70; Resp 18; Temp 98.5; Pulse Ox 100% on R/A; Weight 83.91 kg; ea Height 5 ft. 10 in. (177.80 cm); 07:10 BP 132 / 77; Pulse 66; Resp 15; Pulse Ox 96% ; bp 05:05 Body Mass Index 26.54 (83.91 kg, 177.80 cm) ea ED Course: 05:13 Patient arrived in ED. cl3 05:15 Patient has correct armband on for positive identification. Placed in gown. Bed in low jd3 position. Call light in reach. Side rails up X 1. Adult w/ patient. 05:17 Sima Madrid, RN is Primary Nurse. ea 05:18 Jalil Silva MD is Attending Physician. jaxon 05:19 Triage completed. ea 05:19 Arm band placed on right wrist. Patient placed in an exam room, on a stretcher, on ea pulse oximetry. 05:38 Radiology exam delayed due to lab results not completed at this time. (BUN/Creatinine). 05:45 Maintain EMS IV. Dressing intact. Good blood return noted. Site clean \T\ dry. Gauge \T\ tom 3 site: 20 G right hand. 06:16 Piero Holguin MD is Hospitalizing Provider. jaxon Administered Medications: 05:45 Drug: NS 0.9% 1000 ml Route: IV; Rate: 1 bolus; Site: right hand; ea 05:50 Drug: NS 0.9% 1000 ml Route: IV; Rate: 1 bolus; Site: right hand; ea 05:52 Drug: fentaNYL (PF) 25 mcg Route: IVP; Site: right hand; ea 05:52 Drug: Zofran 4 mg Route: IVP; Site: right hand; ea 05:53 Drug: Pepcid 20 mg Route: IVP; Site: right hand; ea 06:06 Follow up: Response: No adverse reaction ea 05:56 Drug: Cipro 400 mg Volume: 200 ml; Route: IVPB; Infused Over: 60 mins; Site: left hand; ea 05:56 Drug: Flagyl 500 mg Volume: 100 ml; Route: IVPB; Rate: 200 ml/hr; Infused Over: 30 ea mins; Site: left hand; Outcome: 06:18 Decision to Hospitalize by Provider. [facility] 15:53 Patient left the ED. Signatures: Jalil Silva MD MD cha Hagler, Ervin Dana Martin RN RN Sima Madrid, Griffin Johnson RN, ea, RN RN jChet Castellanos RN RN bp Lewis, Charde cl3
--- NOTE | 2019-06-16 06:20 | EDPHYS ---
Physician Documentation [facility] Name: Dave Moreland Age: 79 yrs Sex: Male : 1940 Arrival Date: 06/16/2019 Time: 05:13 Bed 27 Private MD: ED Physician Jalil Silva HPI: 06/16 05:30 This 79 yrs old Male presents to ER via EMS with complaints of jaxon Nausea/Vomiting/Diarrhea. 05:30 The patient presents to the emergency department with nausea, vomiting, diarrhea, jaxon abdominal pain, of the right lower quadrant and left lower quadrant. Onset: The symptoms/episode began/occurred 2 day(s) ago. Possible causes: unknown. The symptoms are aggravated by nothing. The symptoms are alleviated by nothing. Associated signs and symptoms: Pertinent positives: abdominal pain, diarrhea, nausea, vomiting. Severity of symptoms: At their worst the symptoms were moderate in the emergency department the symptoms are unchanged. The patient has not experienced similar symptoms in the past. Historical: - Allergies: 05:21 Codeine; ea - Home Meds: 05:21 aspirin 81 mg Oral chew 1 tab once daily [Active]; metformin 500 mg Oral tab 1 tab 2 ea times per day [Active]; lisinopril 20 mg Oral tab 1 tab once daily [Active]; finasteride 5 mg Oral tab 1 tab once daily [Active]; pantoprazole 40 mg Oral TbEC 1 tab once daily [Active]; gabapentin 100 mg Oral cap twice a day [Active]; clopidogrel 75 mg Oral tab 1 tab once daily [Active]; isosorbide mononitrate 60 mg Oral Tb24 1 tab once daily [Active]; - PMHx: 05:21 prostate problems; Myocardial infarction; Hypertension; Hyperlipidemia; GERD; Diabetes ea - NIDDM; - Immunization history:: Adult Immunizations up to date. - Social history:: Smoking status: Patient/guardian denies using tobacco. - Ebola Screening: : No symptoms or risks identified at this time. - Family history:: not pertinent. ROS: 05:30 Constitutional: Negative for fever, chills, and weight loss, Eyes: Negative for injury, jaxon pain, redness, and discharge, ENT: Negative for injury, pain, and discharge, Neck: Negative for injury, pain, and swelling, Cardiovascular: Negative for chest pain, palpitations, and edema, Respiratory: Negative for shortness of breath, cough, wheezing, and pleuritic chest pain, Back: Negative for injury and pain, : Negative for injury, bleeding, discharge, and swelling, MS/Extremity: Negative for injury and deformity, Skin: Negative for injury, rash, and discoloration, Neuro: Negative for headache, weakness, numbness, tingling, and seizure, Psych: Negative for depression, anxiety, suicide ideation, homicidal ideation, and hallucinations, Allergy/Immunology: Negative for hives, rash, and allergies, Endocrine: Negative for neck swelling, polydipsia, polyuria, polyphagia, and marked weight changes, Hematologic/Lymphatic: Negative for swollen nodes, abnormal bleeding, and unusual bruising. 05:30 Abdomen/GI: Positive for abdominal pain, nausea and vomiting, diarrhea, of the right lower quadrant and left lower quadrant. Exam: 05:30 Constitutional: This is a well developed, well nourished patient who is awake, alert, jaxon and in no acute distress. Head/Face: Normocephalic, atraumatic. Eyes: Pupils equal round and reactive to light, extra-ocular motions intact. Lids and lashes normal. Conjunctiva and sclera are non-icteric and not injected. Cornea within normal limits. Periorbital areas with no swelling, redness, or edema. ENT: Nares patent. No nasal discharge, no septal abnormalities noted. Tympanic membranes are normal and external auditory canals are clear. Oropharynx with no redness, swelling, or masses, exudates, or evidence of obstruction, uvula midline. Mucous membranes moist. Neck: Trachea midline, no thyromegaly or masses palpated, and no cervical lymphadenopathy. Supple, full range of motion without nuchal rigidity, or vertebral point tenderness. No Meningismus. Chest/axilla: Normal chest wall appearance and motion. Nontender with no deformity. No lesions are appreciated. Cardiovascular: Regular rate and rhythm with a normal S1 and S2. No gallops, murmurs, or rubs. Normal PMI, no JVD. No pulse deficits. Respiratory: Lungs have equal breath sounds bilaterally, clear to auscultation and percussion. No rales, rhonchi or wheezes noted. No increased work of breathing, no retractions or nasal flaring. Back: No spinal tenderness. No costovertebral tenderness. Full range of motion. Male : Normal genitalia with no discharge or lesions. Skin: Warm, dry with normal turgor. Normal color with no rashes, no lesions, and no evidence of cellulitis. MS/ Extremity: Pulses equal, no cyanosis. Neurovascular intact. Full, normal range of motion. Neuro: Awake and alert, GCS 15, oriented to person, place, time, and situation. Cranial nerves II-XII grossly intact. Motor strength 5/5 in all extremities. Sensory grossly intact. Cerebellar exam normal. Normal gait. Psych: Awake, alert, with orientation to person, place and time. Behavior, mood, and affect are within normal limits. 05:30 Abdomen/GI: Inspection: distension, Bowel sounds: normal, Palpation: moderate abdominal tenderness, in the suprapubic area, right lower quadrant and left lower quadrant, Liver: no appreciated palpable abnormalities, Hernia: not appreciated. Vital Signs: 05:05 BP 120 / 64; Pulse 70; Resp 18; Temp 98.5; Pulse Ox 100% on R/A; Weight 83.91 kg; ea Height 5 ft. 10 in. (177.80 cm); 07:10 BP 132 / 77; Pulse 66; Resp 15; Pulse Ox 96% ; bp 05:05 Body Mass Index 26.54 (83.91 kg, 177.80 cm) ea MDM: 05:18 Patient medically screened. [facility] 05:34 Data reviewed: vital signs, nurses notes, lab test result(s), EKG, radiologic studies, [facility] CT scan, plain films. 06/16 05:29 Order name: Basic Metabolic Panel [facility] 06/16 05:29 Order name: CBC with Diff [facility] 06/16 05:29 Order name: LFT's [facility] 06/16 05:29 Order name: Magnesium [facility] 06/16 05:29 Order name: NT PRO-BNP [facility] 06/16 05:29 Order name: PT-INR [facility] 06/16 05:29 Order name: Troponin (emerg Dept Use Only) [facility] 06/16 05:29 Order name: Lipase [facility] 06/16 05:29 Order name: Stool Culture [facility] 06/16 05:29 Order name: Fecal Leukocyte Stain [facility] 06/16 05:29 Order name: Urine Culture [facility] 06/16 05:48 Order name: Basic Metabolic Panel; Complete Time: 07:06 [facility] 06/16 05:48 Order name: Liver (Hepatic) Function; Complete Time: 07:06 [facility] 06/16 05:48 Order name: Troponin (Emerg Dept Use Only); Complete Time: 07:06 [facility] 06/16 05:29 Order name: XRAY Chest (1 view) [facility] 06/16 05:29 Order name: CT Abd/Pelvis - IV Contrast Only [facility] 06/16 05:36 Order name: Abdomen [facility] 06/16 05:48 Order name: NT PRO-BNP; Complete Time: 07:06 [facility] 06/16 05:48 Order name: Magnesium; Complete Time: 07:06 [facility] 06/16 05:48 Order name: Lipase; Complete Time: 07:06 [facility] 06/16 05:48 Order name: CBC with Automated Diff [facility] 06/16 05:48 Order name: Protime (+INR); Complete Time: 07:06 [facility] 06/16 07:38 Order name: Fecal Leukocyte Stain [facility] 06/16 08:29 Order name: RAD [facility] 06/16 09:18 Order name: CBC Smear Scan [facility] 06/16 10:20 Order name: Glucose, Ancillary Testing [facility] 06/16 10:49 Order name: Stool Culture [facility] 06/16 10:54 Order name: Fecal Leukocyte Stain [facility] 06/16 10:54 Order name: Urine Culture [facility] 06/16 12:32 Order name: Glucose, Ancillary Testing [facility] 06/16 05:29 Order name: EKG; Complete Time: 07:03 [facility] 06/16 05:29 Order name: Cardiac monitoring; Complete Time: 05:30 [facility] 06/16 05:29 Order name: EKG - Nurse/Tech; Complete Time: 05:54 [facility] 06/16 05:29 Order name: IV Saline Lock; Complete Time: 05:45 [facility] 06/16 05:29 Order name: Labs collected and sent; Complete Time: 05:45 [facility] 06/16 05:29 Order name: O2 Per Protocol; Complete Time: 05:30 [facility] 06/16 05:29 Order name: O2 Sat Monitoring; Complete Time: 05:30 [facility] Administered Medications: 05:45 Drug: NS 0.9% 1000 ml Route: IV; Rate: 1 bolus; Site: right hand; ea 05:50 Drug: NS 0.9% 1000 ml Route: IV; Rate: 1 bolus; Site: right hand; ea 05:52 Drug: fentaNYL (PF) 25 mcg Route: IVP; Site: right hand; ea 05:52 Drug: Zofran 4 mg Route: IVP; Site: right hand; ea 05:53 Drug: Pepcid 20 mg Route: IVP; Site: right hand; ea 06:06 Follow up: Response: No adverse reaction ea 05:56 Drug: Cipro 400 mg Volume: 200 ml; Route: IVPB; Infused Over: 60 mins; Site: left hand; ea 05:56 Drug: Flagyl 500 mg Volume: 100 ml; Route: IVPB; Rate: 200 ml/hr; Infused Over: 30 ea mins; Site: left hand; Disposition: 06/16/19 06:18 Hospitalization ordered by Piero Holguin for Inpatient Admission. Preliminary diagnosis are Diarrhea, unspecified, Abdominal tenderness - enteritis, Weakness, Type 2 diabetes mellitus, Vomiting. - Bed requested for Telemetry/MedSurg (Inpatient). - Status is Inpatient Admission. hb - Condition is Stable. - Problem is new. - Symptoms have improved. UTI on Admission? No Signatures: Dispatcher [employer] EDMS Ruthann Rodriguez Corey, MD MD cha Baxter, Heather, RN RN hb Antunez, Elena, RN RN Corrections: (The following items were deleted from the chart) 07:42 06:18 Hospitalization Ordered by Piero Holguin MD for Inpatient Admission. Preliminary jaxon diagnosis is Diarrhea, unspecified; Abdominal tenderness; Weakness; Type 2 diabetes mellitus. Bed requested for Telemetry/MedSurg (Inpatient). Status is Inpatient Admission. Condition is Stable. Problem is new. Symptoms have improved. UTI on Admission? No. jaxon 10:16 07:42 06/16/2019 06:18 Hospitalization Ordered by Piero Holguin MD for Inpatient hb Admission. Preliminary diagnosis is Diarrhea, unspecified; Abdominal tenderness - enteritis; Weakness; Type 2 diabetes mellitus; Vomiting. Bed requested for Telemetry/MedSurg (Inpatient). Status is Inpatient Admission. Condition is Stable. Problem is new. Symptoms have improved. UTI on Admission? No. jaxon 14:11 10:16 06/16/2019 06:18 Hospitalization Ordered by Piero Holguin MD for Inpatient bd Admission. Preliminary diagnosis is Diarrhea, unspecified; Abdominal tenderness - enteritis; Weakness; Type 2 diabetes mellitus; Vomiting. Bed requested for [facility] ER HOLD. Status is Inpatient Admission. Condition is Stable. Problem is new. Symptoms have improved. UTI on Admission? No. hb 15:53 14:11 06/16/2019 06:18 Hospitalization Ordered by Piero Holguin MD for Inpatient hb Admission. Preliminary diagnosis is Diarrhea, unspecified; Abdominal tenderness - enteritis; Weakness; Type 2 diabetes mellitus; Vomiting. Bed requested for Telemetry/MedSurg (Inpatient). Status is Inpatient Admission. Condition is Stable. Problem is new. Symptoms have improved. UTI on Admission? No. bd
[2019-06-16] MEDS ORDERED: ACETAMINOPHEN 500 MG TAB PO PRN (06:23)
[2019-06-16] MEDS ORDERED: ONDANSETRON 4 MG/2 ML VIAL IV PRN (06:23)
--- NOTE | 2019-06-16 06:48 | P.HP ---
Certification for Inpatient Patient admitted to: Inpatient With expected LOS: >2 Midnights Patient will require the following post-hospital care: None Practitioner: I am a practitioner with admitting privileges, knowledge of patient current condition, hospital course, and medical plan of care. Services: Services provided to patient in accordance with Admission requirements found in Title 42 Section 412.3 of the Code of Federal Regulations Patient History Date of Service: 06/16/19 Reason for admission: Intractable nausea vomiting and diarrhea Allergies codeine Allergy (Verified 03/17/19 11:14) Rash Home medications list reviewed: Yes Home Medications: Aspirin [Aspirin EC 81 MG] 81 mg PO DAILY 03/13/19 Clopidogrel Bisulfate [Plavix] 75 mg PO DAILY 03/13/19 Finasteride [Proscar] 5 mg PO DAILY 03/13/19 Gabapentin 300 mg PO TID 03/13/19 Metformin HCl [Glucophage] 500 mg PO BIDWM 03/13/19 Pantoprazole [Protonix Tab] 40 mg PO DAILY 03/13/19 lisinopriL [Prinivil] 20 mg PO [id number] 03/13/19 - Past Medical/Surgical History Past Medical History: Reviewed- Non-Contributory -: Diabetes -: Hypertension -: CAD -: BPH Past Surgical History: Reviewed- Non-Contributory -: With stent - Family History Family History: Reviewed- Non-Contributory - Social History Smoking Status: Never smoker Review of Systems 10-point ROS is otherwise unremarkable ENT: Unremarkable Respiratory: Unremarkable Physical Examination - Vital Signs Temperature: 98.1 F Blood Pressure: 136/76 Pulse: 78 Respirations: 18 - Physical Exam General: Alert, In no apparent distress, Oriented x3 HEENT: Atraumatic, Normocephalic, Other (dry mucous membrane) Neck: Supple Respiratory: Clear to auscultation bilaterally, Normal air movement Cardiovascular: Normal pulses, Regular rate/rhythm Capillary refill: <2 Seconds Gastrointestinal: Soft and benign, W/out hepatosplenomegaly, Distended Musculoskeletal: No clubbing, No swelling Integumentary: No rashes, No breakdown Neurological: Normal speech, Normal strength at 5/5 x4 extr Lymphatics: No axilla or inguinal lymphadenopathy Urinary: Other (No bladder distention) External genitalia: Deferred Rectal: Deferred - Studies Laboratory Data (last 24 hrs) 06/16/19 05:41: PT 11.3, INR 0.96 06/16/19 05:41: WBC 13.8 H, Hgb 13.0 L, Hct 40.0, Plt Count 260 06/16/19 05:41: Sodium 142, Potassium 4.2, BUN 25 H, Creatinine 1.11, Glucose 197 H, Magnesium 2.0, Total Bilirubin 0.4, AST 15, ALT 31, Alkaline Phosphatase 58, Lipase 163 Assessment and Plan - Problems (Diagnosis) (1) Intractable nausea and vomiting Current Visit: Yes Status: Acute (2) Gastroenteritis Current Visit: Yes Status: Acute (3) Diabetes Current Visit: Yes Status: Chronic (4) Hypertension Current Visit: Yes Status: Chronic (5) CAD (coronary artery disease) Current Visit: Yes Status: Chronic - Plan Intractable nausea vomiting Acute gastroenteritis Dehydration Hypertension diabetes CAD status post stents Chronic back pain Plan Monitor under telemetry IV rehydration Continue home medications and titrate as needed Will hold metformin for now Start on IV antibiotics with Flagyl Will get a CT of the abdomen pelvis Insulin sliding scale GI/DVT prophylaxis Advanced directives full code - Advance Directives Does patient have a Living Will: No Does patient have a Durable POA for Healthcare: No Time Spent Managing Pts Care (In Minutes): 43
[2019-06-16] MEDS ORDERED: D50W 25 GM/50 ML SYRINGE/VIAL IV PRN (06:49)
[2019-06-16] MEDS ORDERED: GLUCAGON 1 MG/VIAL IM PRN (06:49)
[2019-06-16] MEDS: NA CHLORIDE 0.9% 1,000 ML IV SCH ×2 (07:00→17:49)
[2019-06-16] MEDS: INSULIN -REGULAR HUMAN 50 UNIT/0.5 ML ML SQ SCH ×4 (07:30→20:07)
--- NOTE | 2019-06-16 07:36 | RAD REPORT ---
EXAM DESCRIPTION: CT - Abdomen Pelvis W Contrast - 06/16/2019 7:07 am CLINICAL HISTORY: PAIN/N/V/Dabdominal pain, nausea vomiting and diarrhea, prior cholecystectomy COMPARISON: CT January 20, 2019 TECHNIQUE: Biphasic, helical CT imaging of the abdomen and pelvis was performed following 100 ml non -ionic IV contrast. No oral contrast administered. All CT scans are performed using dose optimization technique as appropriate and may include automated exposure control or mA/KV adjustment according to patient size. FINDINGS: No suspicious findings in the lung bases. The liver, spleen, and pancreas show no suspicious findings. Liver shows a fatty infiltration pattern . Cholecystectomy clips are present with no biliary tree dilatation. Portal vein is normal. Symmetric renal function is seen with no hydronephrosis or suspicious renal mass. No pyelonephritis o r acute parenchymal process. 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 No urinary bladder abnormality. Prostate gland is enlarged and projects into the bladder base. This is similar to comparison. No adrenal abnormalities. Stomach is distended with fluid. No gastric wall thickening or mass. No outlet obstruction. Prominent loops of jejunum are noted. There is fluid scattered throughout the small bowel. Fluid is retained w ithin a nondilated colon from cecum through descending colon. No colon mass or focal wall thickening. No free air, free fluid or inflammatory stranding. No mass or bulky lymphadenopathy. No hernia is confirmed. Disc and bone degenerative changes are present. No suspicious bony findings. No acute vascular finding. IMPRESSION: Small bowel and colon enteritis pattern with no obstruction, free air or emergent findin g. Fatty infiltration of the liver. Cholecystectomy clips are present with no biliary or pancreatic acut e finding. Prostate gland is enlarged and projects into the bladder base. Follow-up outpatient PSA evaluation wo uld be recommended.
--- NOTE | 2019-06-16 08:27 | RAD REPORT ---
EXAM DESCRIPTION: RAD - Chest Single View - 06/16/2019 7:20 am CLINICAL HISTORY: Abdominal pain, abdominal distention COMPARISON: January 20, 2019 TECHNIQUE: AP portable chest image was obtained 0610 hours . FINDINGS: No peripheral mass or consolidation. Interstitial pattern is not substantially different f rom comparison. Mediastinum and hilum assessment limited by rotation and lordotic positioning. Heart and vasculature are normal. No measurable pleural effusion and no pneumothorax. No acute bony abnorma lity seen. No acute aortic findings suspected. IMPRESSION: Limited portable study without acute cardiopulmonary finding.
[2019-06-16 09:17] LABS: Blood Morphology Comment NOT SEEN (NOT SEEN); Platelet Estimate ADEQ; Urine White Blood Cell Casts OK
[2019-06-16] MEDS ORDERED: NA CHLORIDE 0.9% 1,000 ML ONE (10:34)
[2019-06-16] MEDS: METRONIDAZOLE 500mg IVPB 500 MG/100 ML BAG IV SCH ×2 (10:40→17:45)
[2019-06-16] MEDS ORDERED: METOCLOPRAMIDE 10 MG/2mL INJ IV PRN (12:06)
[2019-06-16] MEDS ORDERED: MORPHINE 2 MG/ML SYR IV PRN (12:18)
[2019-06-16] MEDS ORDERED: HYDRALAZINE HCL 20 MG/ML VIAL IV PRN (12:18)
[2019-06-16] MEDS: Levofloxacin500mg IV 500 MG/100 ML BAG IV SCH (13:00)
--- NOTE | 2019-06-16 13:47 | EKG ---
Test Date: 2019-06-16 Test Time: 05:57:13 Solar Sales Specialist: YANG MEASUREMENT RESULTS: Intervals: Rate: 67 NV: QRSD: 104 QT: 416 QTc: 439 [place]: P: NV: QRS: -56 T: 44 INTERPRETIVE STATEMENTS: Accelerated Junctional rhythm Left anterior fascicular block Abnormal ECG Compared to ECG 01/20/2019 20:57:51 Accelerated junctional rhythm now present Atrial fibrillation no longer present Incomplete right bundle-branch block no longer present Electronically Signed On 06-16-19 13:46:18 ECOLOGY PROFESSOR by Doroteo Carrion
[2019-06-16] MEDS: DICYCLOMINE HCL 10 MG CAP PO SCH ×2 (14:00→21:14)
[2019-06-16] MEDS ORDERED: Levofloxacin500mg IV 500 MG/100 ML BAG IV ONE (14:10)
[2019-06-16] MEDS ORDERED: DICYCLOMINE HCL 10 MG CAP ONE (14:10)
[2019-06-16 16:08] VITALS: O2SAT 96
[2019-06-16 16:39] VITALS: BMI 26.6
[2019-06-17 00:02] LABS: Urine Appearance CLEAR; Urine Bilirubin NEGATIVE (NEG); Urine Blood NEGATIVE (NEG); Urine Color YELLOW; Urine Glucose NEGATIVE (NEG); Urine Protein NEGATIVE (NEG); Urine Specific Gravity 1.015 (1.005-1.030); Urine Urobilinogen 0.2 mg/dL (0.2-1.0); Urine pH 5.5 (5.0-7.0)
[2019-06-17 00:03] LABS: Urine Microscopic Reflex ORDER UMIC
[2019-06-17 00:36] LABS: Urine Bacteria <20 /HPF (NONE SEEN); Urine Culture Reflex Order REFLEXED; Urine RBC <5 /HPF (NONE SEEN)
[2019-06-17] MEDS: METRONIDAZOLE 500mg IVPB 500 MG/100 ML BAG IV SCH ×2 (01:18→08:08)
[2019-06-17] MEDS: NA CHLORIDE 0.9% 1,000 ML IV SCH ×2 (03:00→13:00)
[2019-06-17 05:56] LABS: Bilirubin Total 0.4 mg/dL (0.2-1.0); Phosphorus 1.1 mg/dL (2.5-4.9); Potassium 3.5 mmol/L (3.5-5.1); Protein, Total 6.1 g/dL (6.4-8.2)
[2019-06-17 06:01] LABS: Absolute Lymphocytes (CBC) 0.8 K/uL (0.7-4.9); Basophils % 0.4 % (0-1.3); Hematocrit 36.9 % (39.6-49.0); Lymphocytes % 11.6 % (15.3-44.8); MPV 9.2 fL (7.6-11.3); RBC Red Blood Cell Count 4.06 M/uL (4.33-5.43)
[2019-06-17] MEDS ORDERED: POTASSIUM PHOS IN 0.9 % NACL 15 MMOL/250 ML BAG IV ONE ×2 (06:08→08:00)
[2019-06-17] MEDS ORDERED: POTASS/SODIUM PHOSPHATE 1 PKT POWD.PACK PO SCH (07:00)
[2019-06-17] MEDS: INSULIN -REGULAR HUMAN 50 UNIT/0.5 ML ML SQ SCH ×2 (07:30→11:30)
[2019-06-17] MEDS ORDERED: POTASSIUM 25 MEQ EFFERV TAB PO ONE (08:07)
[2019-06-17] MEDS: DICYCLOMINE HCL 10 MG CAP PO SCH (08:08)
--- NOTE | 2019-06-17 11:17 | P.DS ---
Admission Date: 06/16/19 Discharge Date: 06/17/19 Disposition: [facility] Discharge Condition: FAIR Reason for Admission: Intractable nausea vomiting and diarrhea Brief History of Present Illness: Patient admitted for abdominal cramps , diarrhea and nausea Hospital Course: Patient with history of diabetes, CAD admitted for gastroenteritis noted on CT scan. He was started on appropriate antibiotics and his symptoms significantly improved. His leucocytosis has improved . His symptoms has remarkably improved. Vital Signs/Physical Exam: Temp Pulse Resp BP Pulse Ox 98.3 F 58 16 120/58 L 96 06/17/19 08:00 06/17/19 08:00 06/17/19 08:00 06/17/19 08:00 06/17/19 08:00 General: Alert, Oriented x3 HEENT: Atraumatic, Normocephalic Neck: Supple, 2+ carotid pulse no bruit Respiratory: Clear to auscultation bilaterally, Normal air movement Cardiovascular: No edema, Normal pulses, Regular rate/rhythm, Normal S1 S2 Gastrointestinal: Normal bowel sounds, Soft and benign Musculoskeletal: No clubbing, No swelling Neurological: Normal gait, Normal speech External genitalia: No edema, No lesions Laboratory Data at Discharge: WBC 6.6 K/uL (4.3-10.9) D 06/17/19 05:05 Hgb 12.2 g/dL (13.6-17.9) L 06/17/19 05:05 Hct 36.9 % (39.6-49.0) L 06/17/19 05:05 Plt Count 215 K/uL (152-406) 06/17/19 05:05 PT 11.3 SECONDS (9.5-12.5) 06/16/19 05:41 INR 0.96 06/16/19 05:41 Sodium 143 mmol/L (136-145) 06/17/19 05:05 Potassium 3.5 mmol/L (3.5-5.1) 06/17/19 05:05 BUN 12 mg/dL (7-18) 06/17/19 05:05 Creatinine 1.02 mg/dL (0.55-1.3) 06/17/19 05:05 Glucose 160 mg/dL (74-106) H 06/17/19 05:05 Phosphorus 1.1 mg/dL (2.5-4.9) L 06/17/19 05:05 Magnesium 2.0 mg/dL (1.8-2.4) 06/16/19 05:41 Total Bilirubin 0.4 mg/dL (0.2-1.0) 06/17/19 05:05 AST 16 U/L (15-37) 06/17/19 05:05 ALT 30 U/L (12-78) 06/17/19 05:05 Alkaline Phosphatase 53 U/L (45-117) 06/17/19 05:05 Lipase 163 U/L (73-393) 06/16/19 05:41 Home Medications: Aspirin [Aspirin EC 81 MG] 81 mg PO DAILY 03/13/19 Clopidogrel Bisulfate [Plavix*] 75 mg PO DAILY 03/13/19 Finasteride [Proscar*] 5 mg PO DAILY 03/13/19 Gabapentin 300 mg PO BID 03/13/19 Metformin HCl [Glucophage*] 500 mg PO BIDWM 03/13/19 Pantoprazole [Protonix Tab*] 40 mg PO DAILY 03/13/19 lisinopriL [Prinivil*] 20 mg PO [id number] 03/13/19 Escitalopram Oxalate 10 mg PO DAILY 06/16/19 Isosorbide Mononitrate [Isosorbide Mononitrate ER] 60 mg PO DAILY 06/16/19 Lactobac. No.33/B.breve,Longum [Lacto-Pectin Capsule] 1 each PO DAILY #10 capsule 06/17/19 Levofloxacin [Levaquin] 500 mg PO DAILY #10 tablet 06/17/19 Metronidazole [Flagyl] 375 mg PO TID #21 capsule 06/17/19 New Medications: Lactobac. No.33/B.breve,Longum [Lacto-Pectin Capsule] 1 each PO DAILY #10 capsule Levofloxacin [Levaquin] 500 mg PO DAILY #10 tablet Metronidazole [Flagyl] 375 mg PO TID #21 capsule Patient Discharge Instructions: follow up with your PCP in 1 week Diet: ADA Activity: Ad augustine Time spent managing pt's care (in minutes): 35
[2019-06-17 12:02] VITALS: TEMP 98.5
[2019-06-17 12:40] LABS: C.diff Antigen/Toxin Ag neg : Tox neg (NEG : NEG)
[2019-06-17] MEDS: Levofloxacin500mg IV 500 MG/100 ML BAG IV SCH (13:00)
[2019-06-17 14:01] VITALS: BP 150/80
== END 2019-06-17 13:10 | disposition home health service (06) | DRG 392 ==
LOC: ER 05:12 → ERHOLD 06:01 → 2ND 15:21
PROVIDERS: ADMIT Family Medicine; ATTEND Internal Medicine
DX: K52.9 Noninfective gastroenteritis and colitis, unspecified (principal); E11.8 Type 2 diabetes mellitus with unspecified complications; I10 Essential (primary) hypertension; I25.10 Atherosclerotic heart disease of native coronary artery without angina pectoris; N40.0 Benign prostatic hyperplasia without lower urinary tract symptoms; E86.0 Dehydration; M54.9 Dorsalgia, unspecified; G89.29 Other chronic pain; E78.5 Hyperlipidemia, unspecified; K21.9 Gastro-esophageal reflux disease without esophagitis; I25.2 Old myocardial infarction
CPT/HCPCS: 36415; 71045; 74177; 80048; 80053; 80076; 81003; 81015; 82947; 83690; 83735; 83880; 84100; 84484; 85025; 85610; 87045; 87046; 87086; 87088; 87324; 87449; 89055; 93005; 99283; J0744; J2405; J2765; J3010; J7030; Q9967

== ENCOUNTER 2019-08-04 22:20 | Emergency (ER) | payer OTHER ==
--- OUTSIDE RECORDS SUMMARY | 2019-08-04 22:22 | XMS REPORT ---
:1940 [facility] Address [address] [place] [address] [address] [place] [address] Care Team Providers Name Role Phone Unavailable Unavailable Unavailable Problems This patient has no known problems. Allergies, Adverse Reactions, Alerts This patient has no known allergies or adverse reactions. Medications This patient has no known medications.
--- OUTSIDE RECORDS SUMMARY | 2019-08-04 22:38 | XMS REPORT | Summary of Care ---
:1940 Author Organization [facility] Address [address] [place] [id number] Care Team Providers Name Role Phone Aria Loja MD Primary Care Provider Reason for Visit Reason Comments Diabetes Anxiety Depression LAB WORK Encounter Details Date Type Department Care Team Description 07/31/[address] [facility] Family Aria Loja 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, without long-term current use of insulin ( Primary Dx); Medicine - Otis Addison MD Essential hypertension; [address] [place] [address] [address] [place] [address] DR Mixed hyperlipidemia; [place], [place] Anxiety and depression; [phone] Encounter for long-term (current) use of medications; [phone] Medication monitoring encounter; Dysuria; Chronic fatigue Allergies Active Allergy Reactions Severity Noted Date Comments Canagliflozin Other - See comments 01/18/2017 Genital mycotic infections Codeine Rash 06/15/2018 documented as of 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 (statuses as of 07/31/2019) Medications Medication Sig Dispensed Refills Start Date End Date Status pantoprazole 40 mg EC Take 40 mg by 0 Active tablet mouth daily. aspirin 81 mg chewable Take 1 tablet by 30 tablet 1 06/25/2018 Active tablet mouth daily. finasteride 5 mg Take 1 tablet by 90 tablet 3 10/10/2018 Active tabletIndications: mouth daily. Orchalgia tamsulosin 0.4 mg 24 Take 1 capsule 90 capsule 3 01/12/2019 Active hr capsuleIndications: by mouth at Dizziness bedtime. isosorbide mononitrate Take 0.5 tablets 0 02/03/2019 Active 60 mg 24 hr tablet by mouth daily. gabapentin 300 mg Take 1 capsule 270 capsule 1 04/11/2019 Active capsuleIndications: by mouth 3 Neuropathy of both (three) times feet daily. lisinopril 20 mg Take 1 tablet by 90 tablet 1 05/02/2019 Active tabletIndications: mouth daily. Essential hypertension metformin ER 500 mg 24 Take 1 tablet by 180 tablet 2 05/25/2019 Active hr tabletIndications: mouth 2 (two) Type 2 diabetes times daily with mellitus with meals. hyperglycemia, without long-term current use of insulin escitalopram oxalate Take 1 tablet by 90 tablet 1 06/19/2019 Active 10 mg mouth daily. tabletIndications: Anxiety and depression clopidogrel 75 mg Take 1 tablet by 30 tablet 5 07/03/2019 Active tabletIndications: mouth daily. Coronary artery disease involving nenana coronary artery of nenana heart without angina pectoris documented as of 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 (statuses as of 07/31/2019) Active Problems Problem Noted Date Onychomycosis of toenail 06/04/2019 Elevated sed rate 10/05/2018 Low ferritin 09/14/2018 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, without long-term current use of insulin Bradycardia 06/15/2018 Weakness 06/15/2018 Dizziness 06/15/2018 Coronary artery disease involving nenana coronary artery of nenana heart 06/15 without angina pectoris Essential hypertension 06/15/2018 PAF (paroxysmal atrial fibrillation) 06/15/2018 documented as of 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 (statuses as of 07/31/2019) Immunizations Name Administration Dates Next Due Influenza High Dose 04/11/2019, 03/01/2018 Influenza Virus Vaccine 03/21/2017 Pneumococcal Polysaccharide, PPSV23 (PNEUMOVAX) 07/26/2012 Tdap 10/03/2015 documented as of 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 Social History Tobacco Use Types Packs/Day Years [...] Sign Reading Time Taken Comments Blood Pressure 125/73 07/31/2019 10:20 AM TESTING DIRECTOR Pulse 50 07/31/2019 10:20 AM TESTING DIRECTOR Temperature 36.2 C (97.2 F) 07/31/2019 10:20 AM TESTING DIRECTOR Respiratory Rate - - Oxygen Saturation - - Inhaled Oxygen Concentration - - Weight 81.6 kg (180 lb) 07/31/2019 10:20 AM TESTING DIRECTOR Height 177.8 cm (5' 10") 07/31/2019 10:20 AM TESTING DIRECTOR Body Mass Index 25.83 07/31/2019 10:20 AM TESTING DIRECTOR documented in 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 Patient Instructions Patient InstructionsAria Loja MD - 07/31/2019 10:00 AM CST Discuss the shingles vaccine (Shingrix) with your pharmacist. Adult Immunization Schedule Vaccine How often Disease prevented Who needs it Influenza Every year Flu. This can be especially dangerous to elderly adults or people with immune disorders. All adults Tetanus, diphtheria (Td); or Tetanus, diphtheria, and pertussis (Tdap)* One dose of Tdap, then one dose of Td as a booster every 10 years Tetanus(lockjaw) , a disease that causes muscles to spasm Diphtheria,an infection that causes fever, weakness, and breathing problems Pertussis, also known as whooping cough. This is a highly contagious disease that can cause serious illness. All adults *This vaccine should be given during each no matter how many years since the last vaccine.The vaccine increases protection foryour . A is too young to get the vaccine, but at the highest risk for severe illness and from pertussis. Varicella (Joanna) One series of 2 injections Chickenpox. This is a disease that causes itchy skin bumps, fever, and tiredness. It can lead to scarring, pneumonia, or brain inflammation. Adults who dont have evidence of immunity This vaccine should not be given to women. Women should avoid for4 weeks after the vaccine. Human papillomavirus (HPV) One series of 3 injections Cervical cancer, caused by certain types ofHPV Vaginal and vulvar cancer Penile cancer Head and neck cancers Anal cancer Genital warts Females and males ages 15 to 26 Ask your healthcare provider if this vaccine is right for you. Vaccine How often Disease prevented Who needs it Zoster--- 1 or 2 doses, depending on the type of vaccine: The CDC recommends a 2-dose vaccine; the second dose given 2 to 6 months after the first Live zoster vaccine--- is 1 dose Herpes zoster (shingles), a painful rash marked by blisters Adults ages 50 and older, including those who have already had shingles. ---You should not get the live vaccine if your immune systemis low. For example, if you have HIV, are taking medicines that suppressyour immune system , orare getting cancer treatment. Measles, mumps, rubella (MMR) 1 or 2 doses, for ages 19 through 49; 1 dose for ages 50 and older if at risk Measles causes red spots, fever, and coughing. It also causes swelling in the salivary glands and may affect the ovaries or testes. Rubella([place] measles) can cause defects if a woman catches it. Adults born in 1957 or later who are not known to be immune to all 3 of these diseases. Ask your healthcare provider ifyou need a second dose. This vaccine should notbe given to women. Women shouldavoid [id number] after vaccination. Pneumococcal (PCV 13) 1 dose Pneumonia. This is an infection that causes inflammation inyour lungs. It can lead to . Adults ages 65 and older. Also, adults ages 19 and older with weak immune systems or any of these health conditions:chronic renal failure, nephrotic syndrome, functional or anatomic asplenia, cerebrospinal fluid (CSF)leaks, or cochlear implants. This vaccine adds extra protection to PCV 23 and should be given about 2 months before PCV 23. Pneumococcal (PPSV23) 1 or 2 doses Pneumonia. This is an infection that causes inflammation in your lungs. It can lead to . Adults ages 65 and older. Also, adults with chronic illnesses, such asasthma, COPD, heart disease, diabetes, liver disease, alcoholism, sickle cell disease, or history ofsplenectomy. In addition, adults with an immune disorder and adults who smoke cigarettes. This vaccine is recommended for all adults regardless of immune status. Vaccine How often Disease prevented Who needs it Meningococcal (MCV or MPSV) 1 or more doses Meningococcal disease (bacterial meningitis). This is inflammation of the membrane covering the brain and spinal cord. It can lead to . Adults with immune deficiencies or high risk of exposure. Also, college freshmen living in dormitories and recruits. Hepatitis A (HepA) One series of 2 injections Hepatitis A. This is an infection that can result in acute liver inflammation and yellow skin and whites of the eyes (jaundice). Adults with risk factors, such as clotting disorders or chronic liver disease, and adults with high risk of exposure. This includes men who have sex with men, IV drug users, and travelers to countries where hepatitis A is common. Hepatitis B (HepB) One series of 3 injections Hepatitis B. This is an infection that causes chronic,severe liver disease. Adults with high risk of exposure, such as healthcare providers and sanitationworkers, and adults with diabetes Travelers diseases As needed Infections such as cholera, typhoid, yellow fever, polio, rabies, meningococcal disease, hepatitis A, hepatitis B Adults traveling out of the country. Required vaccines will vary, depending on the country you visit. Check the CDC website: www.cdc.gov. Based on the CDC National Immunization Program recommendations for adults Romulo last reviewed this educational content on 07/22/201619993406-1138 The [employer] [address] [place] [address]. All rights reserved. This information is not intended as a substitute for professional medical care. Always follow your healthcare professional's instructions. ING DIRECTOR documented in 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 Progress Notes Nisha Snow - 07/31/2019 10:00 AM CST Venipuncture collection performed by clean technique on the left anticubitus. Total of 1 attempts were made. Slight pressure and a bandage/dressing were applied to the site(s). The patient experienced no complications. The following specimens were processed according to instructions and sent to [facility] laboratories per lab order on 07/31/19: LT BLUE SST RED LAV PPT DK GREEN (LiHep) DK GREEN (SodH) CHATTERJEE DK BLUE (K2) DK BLUE (S) ACD Blood Culture NIPT/NTD oAria thomas MD - 07/31/2019 10:00 AM CST Cc: Chief Complaint Patient presents with Diabetes Anxiety Depression HPI Dave Moreland is a 79 year old male who presents for follow-up of DM2, HTN , HLD, and anxiety/depression. He had some dysuria last week that has since resolved but he would like his urine checkedanyway. Additionally he continues to have chronic fatigue but refuses to have a sleep study. He isaccompanied by his . DM2 follow-up: Medication compliance: Good. Dietary compliance: Improving. Exercise frequency: The patient is active but doesn't formally exercise. Last Two A1C Results ([facility]/LC, POCT, [facility]) Recent Labs 12/07/18 0917 04/11/19 0925 HGBA1C 7.1* 7.5* Glucose readings: 130s-160s fasting. Hypoglycemic episodes: None. Associated symptoms: None. Denies chest pain, visual changes, paresthesia of extremities, foot problems, polyuria, or polydipsia. Last Ophthalmology visit: 2019. HTN, HLD follow-up: Medication compliance: Good. He is not on lipid-lowering therapy due to intolerance of multiple lipid-lowering medication classes including statins. Denies adverse medication side effects. Dietary compliance: See above. Exercise frequency: See above. Blood pressure readings: <130/<80. Associated symptoms: None. Denies cp, SOB, palpitations, edema, orthopnea, PND , syncope, claudication, dizziness, headaches, visual changes, or focal weakness. Cardiovascular screening (ex. EKG, stress test) in the past 3 years?: Yes. Depression/Anxiety follow-up: Medication(s): Escitalopram. Medication effectiveness: Good. Residual symptoms on medication: None voiced. Medication side effects: None. Current psychosocial stressors: None. In counseling?: No. Denies manic sxs, delusions , hallucinations, SI or HI. Allergies Dave is allergic to canagliflozin and codeine. Medications Outpatient Medications Prior to Visit Medication Sig Dispense Refill clopidogrel 75 mg tablet Take 1 tablet by mouth daily. 30 tablet 5 escitalopram oxalate 10 mg tablet Take 1 tablet by mouth daily. 90 tablet 1 metformin ER 500 mg 24 hr tablet Take 1 tablet by mouth 2 (two) times daily with meals. 180 tablet 2 lisinopril 20 mg tablet Take 1 tablet by mouth daily. 90 tablet 1 gabapentin 300 mg capsule Take 1 capsule by mouth 3 (three) times daily. 270 capsule 1 isosorbide mononitrate 60 mg 24 hr tablet Take 0.5 tablets by mouth daily. tamsulosin 0.4 mg 24 hr capsule Take 1 capsule by mouth at bedtime. 90 capsule 3 finasteride 5 mg tablet Take 1 tablet by mouth daily. 90 tablet 3 aspirin 81 mg chewable tablet Take 1 tablet by mouth daily. 30 tablet 1 pantoprazole 40 mg EC tablet Take 40 mg by mouth daily. No facility-administered medications prior to visit. Histories Past Medical History: Diagnosis Date A-fib CAD (coronary artery disease) s/p 3 stents CAD (coronary artery disease) Diabetes off metformin History of heart artery stent HTN (hypertension) Myocardial infarction Onychomycosis of toenail 06/04/2019 Status post coronary artery stent placement Stroke 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, without long-term current use of insulin 07/07/2018 Past Surgical History: Procedure Laterality Date BACK SURGERY CHOLECYSTECTOMY EYE SURGERY cataract surgery b/l HAND/FINGER SURGERY UNLISTED HERNIA REPAIR SPINE SURGERY STENT PLACEMENT (SHX) Social History Socioeconomic History [...] file Gets together: Not on file Attends yazidi service: Not on file Active member of [...] on file Social History Narrative 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 HENT: Negative. Eyes: Negative. Respiratory: Negative. Cardiovascular: Negative. Gastrointestinal: Negative. Genitourinary: Positive for dysuria (resolved now). Musculoskeletal: Positive for arthralgias. Skin: Negative. Neurological: Negative. Psychiatric/Behavioral: Negative. Endocrine: Endocrine negative Vital Signs BP 125/73 | Pulse 50 | Temp 36.2 C (97.2 F) (Tympanic) | Ht 5' 10" ( 1.778 m) | Wt 180 lb (81.6 kg) | BMI 25.83 kg/m Physical Exam Constitutional: He is oriented to person, place, and time. He appears well- developed and well-nourished. HENT: Mouth/Throat: Mucous membranes are normal. Eyes: Pupils are equal, round, and reactive to light. Conjunctivae and EOM are normal. No scleral icterus. Neck: Neck supple. No JVD present. No thyromegaly present. Cardiovascular: Normal rate, regular rhythm and normal heart sounds. Exam reveals no gallop and no friction rub. No murmur heard. Pulmonary/Chest: Effort normal and breath sounds normal. Abdominal: Soft. Bowel sounds are normal. He exhibits no distension and no mass. There is no tenderness. Musculoskeletal: He exhibits no edema. Diabetic foot exam: Sensory exam of the foot is normal. Monofilament exam with sensation Right: 5/5, Left: 5/5. Lesions and ulcers absent. Peripheral pulses present 1+. Thickened discolored toenails. Lymphadenopathy: He has no cervical adenopathy. Neurological: He is alert and oriented to person, place, and time. He has normal reflexes. Skin: Skin is warm and dry. No rash noted. No pallor. Psychiatric: He has a normal mood and affect. Nursing note and vitals reviewed. Assessment/Plan Diagnoses and all orders for this visit: 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, without long-term current use of insulin Continue current anti-diabetic medication(s). Reviewed the principles of following a diabetic diet including the concept of glycemic index. Exercise per Manager Of Merchandising's recommendations. Self monitor glucose once daily before breakfast and bring record to each visit. See the Supplier Manager at least annually for diabetic eye exam. See the Small Parts Shaper Operator for routine foot care and diabetic shoes if appropriate. - LIPID PANEL (08119)(TOTAL CHOLESTEROL, TRIGLYCERIDES, HDL) - COMP. METABOLIC PANEL (85895) - GLYCOSYLATED HEMOGLOBIN (A1C) - CBC WITH DIFF Essential hypertension Bp is at goal. Continue current medication(s). Low sodium diet/DASH diet. Exercise per Manager Of Merchandising's recommendations. The patient was instructed to self monitor his blood pressure once daily varying the times when it is checked and to bring the record of readings to each office visit. The patient should follow-up sooner if the blood pressure is trending >/=130/80. - COMP. METABOLIC PANEL (26918) - THYROID STIMULATING HORMONE - CBC WITH DIFF Mixed hyperlipidemia The patient declines pharmacotherapy for HLD at this time due to h/o intolerance of various types ofcholesterol-lowering medications. The patient wants to work on lifestyle modifications to try to improve his lipids. The patient understands statin therapy can provide life-saving benefits for patients at risk for cardiovascular disease and stroke. A low fat, low cholesterol diet was reviewed with the patient and printed information on the TLC diet for lowering cholesterol was provided to the patient. Exercise per Manager Of Merchandising's recommendations. I will re-evaluate the patient's lipids in 3-6 months. - LIPID PANEL (56517)(TOTAL CHOLESTEROL, TRIGLYCERIDES, HDL) - COMP. METABOLIC PANEL (51599) - THYROID STIMULATING HORMONE Anxiety and depression Stable. Continue current psychotropic medication(s). Declines referral for counseling or Psychiatry care at this time. Will continue to monitor the patient's progress. The patient understands he can follow-up sooner if his symptoms rebound or if other mental health issues develop. - THYROID STIMULATING HORMONE Encounter for long-term (current) use of medications, Medication monitoring encounter - LIPID PANEL (91085)(TOTAL CHOLESTEROL, TRIGLYCERIDES, HDL) - COMP. METABOLIC PANEL (48064) - GLYCOSYLATED HEMOGLOBIN (A1C) - URINE CULTURE - VITAMIN B12, LEVEL - THYROID STIMULATING HORMONE - CBC WITH DIFF Dysuria Symptoms currently resolved but patient desires to r/o UTI anyway. UCx is pending. - URINE CULTURE Chronic fatigue The cause of the patient's fatigue is unclear. The patient was reassured that fatigue is common anddoes not always represent an active disease process. It may be related to stress, depression, beingoverweight, not getting enough exercise, not getting enough sleep, undiagnosed sleep apnea, or an as-yet unknown medical problem that may evolve over time. I have suggested observation for worsening orother new symptoms such as pain, fever or weight loss, running a few tests as ordered, reducing weight with a more healthy, balanced diet, reducing stress where possible, getting more rest and sleep, reconsidering a sleep study, and starting an exercise program. The patient was instructed to follow up if symptoms persist or worsen. - COMP. METABOLIC PANEL (52438) - GLYCOSYLATED HEMOGLOBIN (A1C) - VITAMIN B12, LEVEL - THYROID STIMULATING HORMONE - CBC WITH DIFF Plan of care, desired health behaviors, goals, [...] at a future visit. If applicable, the [facility] database was accessed to review any controlled substance prescription claims data. If the patient is taking prescribed medications, the [employer] prescription claims data in User[employer] Live Chat was reviewed to assess patient compliance with the medication treatment plan. Follow-up: Return in about 6 months (around 01/29/2020) for diabetic check. Follow-up sooner if anyproblems or concerns. documented in 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 Plan of Treatment Date Type Specialty Care Team Description 01/03/2020 Office Visit Cardiology Giselle Traore MD [address] [place] [phone] 01/29/2020 Office Visit Family Medicine Aria Loja MD [address] [place] [phone] Name Type Priority Associated Diagnoses Order Schedule LIPID PANEL (18211)(TOTAL LAB Routine Type 2 diabetes 1 Occurrences starting CHOLESTEROL, mellitus with 07/31/2019 until TRIGLYCERIDES, HDL) complication, without 09/29/2019 long-term current use of insulin Mixed hyperlipidemia Encounter for long-term (current) use of medications Medication monitoring encounter COMP. METABOLIC PANEL LAB Routine Type 2 diabetes 1 Occurrences starting (39175) mellitus with 07/31/2019 until complication, without 09/29/2019 long-term current use of insulin Essential hypertension Mixed hyperlipidemia Encounter for long-term (current) use of medications Medication monitoring encounter Chronic fatigue GLYCOSYLATED HEMOGLOBIN LAB Routine Type 2 diabetes 1 Occurrences starting (A1C) mellitus with 07/31/2019 until complication, without 09/29/2019 long-term current use of insulin Encounter for long-term (current) use of medications Medication monitoring encounter Chronic fatigue URINE CULTURE LAB Routine Dysuria 1 Occurrences starting Encounter for long-term 07/31/2019 until (current) use of 09/29/2019 medications Medication monitoring encounter VITAMIN B12, LEVEL LAB Routine Chronic fatigue 1 Occurrences starting Encounter for long-term 07/31/2019 until (current) use of 09/29/2019 medications Medication monitoring encounter THYROID STIMULATING LAB Routine Essential hypertension 1 Occurrences starting HORMONE Mixed hyperlipidemia 07/31/2019 until Anxiety and depression 09/29/2019 Encounter for long-term (current) use of medications Medication monitoring encounter Chronic fatigue CBC WITH DIFF LAB Routine Type 2 diabetes 1 Occurrences starting mellitus with 07/31/2019 until complication, without 09/29/2019 long-term current use of insulin Essential hypertension Encounter for long-term (current) use of medications Medication monitoring encounter Chronic fatigue CBC WITH DIFFERENTIAL LAB Routine Type 2 diabetes Ordered: 07/31/2019 mellitus with complication, without long-term current use of insulin Essential hypertension Encounter for long-term (current) use of medications Medication monitoring encounter Chronic fatigue Health Maintenance Due Date Last Done Comments Zoster Recombinant Vaccine 01/07/1990 (SHINGRIX) (1 of 2) Medicare Wellness Visit 01/07/2005 PNEUMOCOCCAL VACCINES 65+ 07/26/2013 07/26/2012 (2 of 2 - PCV13) EYE EXAM 09/20/2019 09/19/2018 FOOT EXAM 10/11/2019 Postponed from 01/07/1958 (Refused) HgA1C 10/11/2019 04/11/2019, 12/07/2018, 09/05/2018, Additional history exists URINE MICROALBUMIN 12/08/2019 12/07/2018 CREATININE (SERUM) 04/11/2020 04/11/2019, 01/09/2019, 12/07/2018, Additional history exists LDL-C 04/11/2020 04/11/2019, 12/07/2018, 06/15/2018 DTaP,Tdap,and Td Vaccines 10/02/2025 10/03/2015 (2 - Td) INFLUENZA VACCINE Completed 04/11/2019, 03/01/2018, 03/21/2017 documented as of 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 Results Not on filedocumented in 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 Visit Diagnoses Diagnosis 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, without long-term current use of insulin - Primary Essential hypertension Unspecified essential hypertension Mixed hyperlipidemia Anxiety and depression Dysthymic disorder Encounter for long-term (current) use of medications Encounter for long-term (current) use of other medications Medication monitoring encounter Encounter for therapeutic drug monitoring Dysuria Chronic fatigue Other malaise and fatigue documented in 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 Insurance Payer Benefit Plan Subscriber ID Effective Phone Address Type / Group Dates MEDICARE MEDICARE PART xxxxxxxxxxx 2004-[place] [id number] [place] [id number] [employer] [id number] 2016-[place] ent documented as of 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
--- OUTSIDE RECORDS SUMMARY | 2019-08-04 22:38 | XMS REPORT | Summary of Care ---
:1940 Author Organization [facility] Address [address] [place] [id number] Care Team Providers Name Role Phone Aria Loja MD Primary Care Provider Reason for Visit Reason Comments Diabetes Anxiety Depression LAB WORK Encounter Details Date Type Department Care Team Description 07/31/2019 Office Visit [facility] Family Aria Loja 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, without long-term current use of insulin ( Primary Dx); Medicine - Otis Addison MD Essential hypertension; [address] [place] [address] [address] [place] [address] DR Mixed hyperlipidemia; [place], [place] Anxiety and depression; [phone] Encounter for long-term (current) use of medications; [phone] Medication monitoring encounter; Dysuria; Chronic fatigue Allergies [...] tabletIndications: mouth daily. Coronary artery disease involving [place] coronary artery of [place] heart without angina pectoris documented as of 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 (statuses as of 07/31/2019) Active Problems Problem Noted Date Onychomycosis of toenail 06/04/2019 Elevated sed rate 10/05/2018 Low ferritin 09/14/2018 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, without long-term current use of insulin Bradycardia 06/15/2018 Weakness 06/15/2018 Dizziness 06/15/2018 Coronary artery disease involving [place] coronary artery of [place] heart 06/15 without angina pectoris Essential hypertension [...] Comments Blood Pressure 125/73 07/31/2019 10:20 AM COMMERCIAL DRAFTER Pulse 50 07/31/2019 10:20 AM COMMERCIAL DRAFTER Temperature 36.2 C (97.2 F) 07/31/2019 10:20 AM COMMERCIAL DRAFTER Respiratory Rate - - Oxygen Saturation - - Inhaled Oxygen Concentration - - Weight 81.6 kg (180 lb) 07/31/2019 10:20 AM COMMERCIAL DRAFTER Height 177.8 cm (5' 10") 07/31/2019 10:20 AM COMMERCIAL DRAFTER Body Mass Index 25.83 07/31/2019 10:20 AM COMMERCIAL DRAFTER documented in 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 Patient Instructions Patient [...] and may affect the ovaries or testes. Rubella(Samoan measles) can cause defects if a woman catches it. Adults born in 1957 or later who are not known to be immune to all 3 of these diseases. Ask your healthcare provider ifyou need a second dose. This vaccine should notbe given to women. Women shouldavoid [id number] after vaccination. Pneumococcal (PCV 13) 1 dose [...] Romulo last reviewed this educational content on 07/22/201619991949-1257 [employer]. [address] [place] [address]. All rights reserved. This information is not intended as a substitute for professional medical care. Always follow your healthcare professional's instructions. ERCIAL DRAFTER documented in 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 Progress Notes Nisha Snow - 07/31/2019 10:00 AM CST Venipuncture collection performed by clean technique on the left anticubitus. Total of 1 attempts were made. Slight pressure and a bandage/dressing were applied to the site(s). The patient experienced no complications. 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 Exercise per Rn Team Leader's recommendations. Self monitor glucose once daily before breakfast and bring record to each visit. See the Supervisor Tank Storage at least annually for diabetic eye exam. See the Material Assistant for routine foot care and diabetic shoes if appropriate. - LIPID PANEL (47971)(TOTAL CHOLESTEROL, TRIGLYCERIDES, HDL) - COMP. METABOLIC PANEL (71660) - GLYCOSYLATED HEMOGLOBIN (A1C) - CBC WITH DIFF Essential hypertension Bp is at goal. Continue current medication(s). Low sodium diet/DASH diet. Exercise per Rn Team Leader's recommendations. The patient was instructed to self monitor his blood pressure once daily varying the times when it is checked and to bring the record of readings to each office visit. The patient should follow-up sooner if the blood pressure is trending >/=130/80. - COMP. METABOLIC PANEL (64506) - THYROID STIMULATING HORMONE - CBC WITH [...] was provided to the patient. Exercise per Rn Team Leader's recommendations. I will re-evaluate the patient's lipids in 3-6 months. - LIPID PANEL (50500)(TOTAL CHOLESTEROL, TRIGLYCERIDES, HDL) - COMP. METABOLIC PANEL (05415) - THYROID STIMULATING HORMONE Anxiety and depression [...] medications, Medication monitoring encounter - LIPID PANEL (05819)(TOTAL CHOLESTEROL, TRIGLYCERIDES, HDL) - COMP. METABOLIC PANEL (60956) - GLYCOSYLATED HEMOGLOBIN (A1C) - URINE CULTURE [...] persist or worsen. - COMP. METABOLIC PANEL (56463) - GLYCOSYLATED HEMOGLOBIN (A1C) - VITAMIN B12, [...] at a future visit. If applicable, the [facility] database was accessed to review any controlled substance prescription claims data. If the patient is taking prescribed medications, the [employer] prescription claims data in [employer] was reviewed to assess patient compliance with the medication treatment plan. Follow-up: Return in about 6 months (around 01/29/2020) for diabetic check. Follow-up sooner if anyproblems or concerns. documented in 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 Plan of Treatment Date Type Specialty Care Team Description 01/03/2020 Office Visit Cardiology Giselle Traore MD [address] [place] [address] [id number] 01/29/2020 Office Visit Family Medicine Aria Loja MD [address] [place] [phone] Name Type Priority Associated Diagnoses Order Schedule LIPID PANEL (45186)(TOTAL LAB Routine Type 2 diabetes 1 Occurrences starting CHOLESTEROL, mellitus with 07/31/2019 until TRIGLYCERIDES, HDL) complication, without 09/29/2019 long-term current use of insulin Mixed hyperlipidemia Encounter for long-term (current) use of medications Medication monitoring encounter COMP. METABOLIC PANEL LAB Routine Type 2 diabetes 1 Occurrences starting (41715) mellitus with 07/31/2019 until complication, without 09/29/2019 [...] BOX Medicare A & B nt [id number] [place] [id number] [facility] [id number] 2016-Pres [place] ent documented as of 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
[2019-08-04] MEDS ORDERED: FAMOTIDINE 20 MG/2 ML VIAL IV ONE (23:53)
[2019-08-04] MEDS ORDERED: ONDANSETRON 4 MG/2 ML VIAL ONE (23:53)
[2019-08-05 00:14] LABS: Absolute Lymphocytes (CBC) 0.7 K/uL (0.7-4.9); Basophils % 0.2 % (0-1.3); Hematocrit 38.2 % (39.6-49.0); Lymphocytes % 8.1 % (15.3-44.8); MPV 9.3 fL (7.6-11.3)
[2019-08-05 00:15] LABS: Protime INR 1.04
[2019-08-05 00:38] LABS: ALT/SGPT 30 U/L (12-78); AST/SGOT 11 U/L (15-37); Albumin 2.9 g/dL (3.4-5.0); Alkaline Phosphatase 50 U/L (45-117); BUN Blood Urea Nitrogen 16 mg/dL (7-18); Bicarbonate 21 mmol/L (21-32); Bilirubin Direct < 0.1 mg/dL (0-0.2); Bilirubin Total 0.3 mg/dL (0.2-1.0); Glucose Level 186 mg/dL (74-106); Lipase 166 U/L (73-393); Magnesium 1.7 mg/dL (1.8-2.4); Potassium 3.6 mmol/L (3.5-5.1); Protein, Total 5.7 g/dL (6.4-8.2); Sodium Level 143 mmol/L (136-145); Troponin (Emerg Dept Use Only) < 0.02 ng/mL (0.0-0.045)
[2019-08-05 00:39] LABS: NT PRO-BNP 165 pg/mL (<450)
[2019-08-05] MEDS ORDERED: MAGNESIUM SULFATE 1 gm IVPB 1 GM/100 ML BAG IV ONE (01:15)
[2019-08-05] MEDS ORDERED: NA CHLORIDE 0.9% 500 ML ONE (01:15)
--- NOTE | 2019-08-05 02:07 | ER ---
Nurse's Notes [facility] Name: Dave Moreland Age: 79 yrs Sex: Male : 1940 Arrival Date: 08/04/2019 Time: 22:24 Bed 16 Private MD: Diagnosis: Nausea and vomiting;Diarrhea, unspecified Presentation: 08/04 22:37 Presenting complaint: Patient states: "I have been vomiting like crazy." Patient vc started vomiting at about 4 pm. He has vomited about 6 times and had "3-4 bouts of diarrhea". Transition of care: patient was not received from another setting of care. Onset of symptoms was August 04, 2019. Risk Assessment: Do you want to hurt yourself or someone else? Patient reports no desire to harm self or others. Initial Sepsis Screen: Does the patient meet any 2 criteria? No. Patient's initial sepsis screen is negative. Does the patient have a suspected source of infection? No. Patient's initial sepsis screen is negative. Care prior to arrival: Medication(s) given: Phenergan, zofran 4 mg, IV initiated. 20 GA, in the right wrist, Glucose check: 204. 22:37 Method Of Arrival: EMS: [facility] 22:37 Acuity: CLARK 3 vc Triage Assessment: 08/05 01:16 General: Appears in no apparent distress. uncomfortable, ill, Behavior is calm, bb cooperative, appropriate for age. Pain: Denies pain. GI: Reports diarrhea, nausea, vomiting. Historical: - Allergies: 08/04 22:58 Codeine; vc - Home Meds: 22:58 clopidogrel 75 mg Oral tab 1 tab once daily [Active]; vc 22:59 finasteride 5 mg Oral tab 1 tab once daily [Active]; gabapentin 100 mg Oral cap twice a bb day [Active]; lisinopril 20 mg Oral tab 1 tab once daily [Active]; metformin 500 mg Oral tab 1 tab 2 times per day [Active]; pantoprazole 40 mg Oral TbEC 1 tab once daily [Active]; Glucophage XR 500 mg Oral Tb24 1 tab 2 times per day [Active]; escitalopram oxalate 10 mg oral tab 1 tab once daily [Active]; - PMHx: 22:58 Diabetes - NIDDM; Hypertension; vc - PSHx: 22:59 8 stents; Cholecystectomy; bb - Immunization history:: Adult Immunizations up to date. - Coronavirus screen:: The patient has NOT traveled to [place] in the past 14 days. - Social history:: Smoking status: Patient denies any tobacco usage or history of. - Ebola Screening: : Patient negative for fever greater than or equal to 101.5 degrees Fahrenheit, and additional compatible Ebola Virus Disease symptoms. Screenin/15 00:44 Abuse screen: Denies threats or abuse. Nutritional screening: No deficits noted. bb Tuberculosis screening: No symptoms or risk factors identified. Fall Risk None identified. Assessment: 08/04 22:45 General: Appears in no apparent distress. uncomfortable, ill, Behavior is calm, bb cooperative, appropriate for age. Pain: Denies pain. Neuro: Level of Consciousness is awake, alert, obeys commands. Cardiovascular: Capillary refill < 3 seconds Patient's skin is warm and dry. Respiratory: Airway is patent Respiratory effort is even, unlabored, Respiratory pattern is regular, symmetrical. GI: Abdomen is round Stools are reported to be loose. : No signs and/or symptoms were reported regarding the genitourinary system. EENT: No deficits noted. Derm: Skin temperature is warm. Musculoskeletal: Circulation, motion, and sensation intact. Range of motion: intact in all extremities. 23:45 Reassessment: Patient and/or family updated on plan of care and expected duration. Pain bb level reassessed. Patient is alert, oriented x 3, equal unlabored respirations, skin warm/dry/pink. Patient has not vomited, patient continues to have loose stools. 08/05 00:45 Reassessment: Patient and/or family updated on plan of care and expected duration. Pain bb level reassessed. Patient is alert, oriented x 3, equal unlabored respirations, skin warm/dry/pink. Patient continues to have loose stools. Patient denies pain at this time. Patient states feeling better. 01:46 Reassessment: pt given water for PO challenge. bb 02:25 Reassessment: Patient is alert, oriented x 3, equal unlabored respirations, skin bb warm/dry/pink. pt verbalized understanding of and agrees to plan of care discharge instructions given pt assisted to exit via wheelchair accompanied by spouse. Vital Signs: 08/04 22:25 BP 144 / 74; Pulse 63; Resp 18; Temp 99.0(O); Pulse Ox 98% on R/A; bb 23:00 BP 121 / 70; Pulse 55; Resp 16; Pulse Ox 99% on R/A; bb 08/05 01:14 BP 147 / 69 RA Supine (auto/reg); Pulse 61 MON; Resp 20 S; Temp 98.3(O); Pulse Ox 100% ds4 on R/A; 02:27 BP 142 / 81; Pulse 76; Resp 16 S; Temp 98.4(O); Pulse Ox 100% on R/A; bb ED Course: 08/04 22:24 Patient arrived in ED. vc 22:25 Bebe Travis, EVETTE is Primary Nurse. vc 22:29 Jalil Bradford PA is PHCP. cp 22:29 Mikel Bain MD is Attending Physician. cp 22:37 Arm band placed on. bb 22:38 Patient has correct armband on for positive identification. Bed in low position. Call bb light in reach. 22:40 Triage completed. vc 08/05 02:26 No provider procedures requiring assistance completed. IV discontinued, intact, bb bleeding controlled, No redness/swelling at site. Pressure dressing applied. Administered Medications: 00:05 Drug: Zofran 4 mg Route: IVP; Site: right forearm; bb 01:00 Follow up: Response: No adverse reaction; Nausea is decreased bb 00:09 Drug: Pepcid 20 mg Route: IVP; Site: right forearm; bb 01:42 Follow up: Response: No adverse reaction bb 01:15 Drug: NS 0.9% 500 ml Route: IV; Rate: 500 ml/hr; Site: right forearm; bb 02:15 Follow up: IV Status: Completed infusion; IV Intake: 500ml bb 01:15 Drug: Magnesium Sulfate 1 grams Route: IVPB; Infused Over: 1 hrs; Site: right forearm; bb 02:20 Follow up: IV Status: Completed infusion; IV Intake: 100ml bb Intake: 02:15 IV: 500ml; Total: 500ml. bb 02:20 IV: 100ml; Total: 600ml. bb Outcome: 02:06 Discharge ordered by . cp 02:27 Discharged to home via wheelchair, with family. bb 02:27 Condition: stable 02:27 Discharge instructions given to patient, family, Instructed on discharge instructions, follow up and referral plans. medication usage, Demonstrated understanding of instructions, follow-up care, medications, Prescriptions given X 1. 02:28 Patient left the ED. bb Signatures: Kacey Johnson RN RN bb Navid Partida ds4 Jalil Bradford PA PA cp Calcote, Vanessa, RN RN vc
--- NOTE | 2019-08-05 02:07 | EDPHYS ---
Physician Documentation [facility] Name: Dave Moreland Age: 79 yrs Sex: Male : 1940 Arrival Date: 08/04/2019 Time: 22:24 Bed 16 Private MD: ED Physician Mikel Bain HPI: 08/04 22:35 This 79 yrs old Male presents to ER via EMS with complaints of cp Nausea/Vomiting/Diarrhea. 22:35 The patient presents to the emergency department with nausea, that is mild, vomiting, cp that is intermittent, 6 times since the onset of symptoms, described as bilious, diarrhea, that is intermittent. Onset: The symptoms/episode began/occurred today. Possible causes: bad food exposure, ate [employer] fried chicken. Associated signs and symptoms: Pertinent positives: abdominal pain, Pertinent negatives: constipation, dysuria, fever, GI bleeding, hematuria, chest pain. Severity of symptoms: in the emergency department the symptoms are unchanged despite home interventions. Historical: - Allergies: 22:58 Codeine; vc - Home Meds: 22:58 clopidogrel 75 mg Oral tab 1 tab once daily [Active]; vc 22:59 finasteride 5 mg Oral tab 1 tab once daily [Active]; gabapentin 100 mg Oral cap twice a bb day [Active]; lisinopril 20 mg Oral tab 1 tab once daily [Active]; metformin 500 mg Oral tab 1 tab 2 times per day [Active]; pantoprazole 40 mg Oral TbEC 1 tab once daily [Active]; Glucophage XR 500 mg Oral Tb24 1 tab 2 times per day [Active]; escitalopram oxalate 10 mg oral tab 1 tab once daily [Active]; - PMHx: 22:58 Diabetes - NIDDM; Hypertension; vc - PSHx: 22:59 8 stents; Cholecystectomy; bb - Immunization history:: Adult Immunizations up to date. - Coronavirus screen:: The patient has NOT traveled to [place] in the past 14 days. - Social history:: Smoking status: Patient denies any tobacco usage or history of. - Ebola Screening: : Patient negative for fever greater than or equal to 101.5 degrees Fahrenheit, and additional compatible Ebola Virus Disease symptoms. ROS: 22:40 Constitutional: Negative for body aches, chills, fever. cp 22:40 Eyes: Negative for injury, pain, redness, and discharge. cp 22:40 ENT: Negative for drainage from ear(s), ear pain, sore throat, difficulty swallowing, difficulty handling secretions. 22:40 Cardiovascular: Negative for chest pain, edema. 22:40 Respiratory: Negative for cough, shortness of breath, wheezing. 22:40 Abdomen/GI: Positive for abdominal pain, nausea, vomiting, and diarrhea, Negative for constipation, hematemesis, black/tarry stool, rectal bleeding. 22:40 Back: Negative for radiated pain. 22:40 : Negative for urinary symptoms, testicular pain 22:40 Skin: Negative for rash. 22:40 Neuro: Negative for altered mental status, headache, weakness. 22:40 All other systems are negative. Exam: 22:47 Constitutional: The patient appears in no acute distress, alert, awake, cp non-diaphoretic, non-toxic, well developed, well nourished. 22:47 Head/Face: Normocephalic, atraumatic. cp 22:47 Eyes: Periorbital structures: appear normal, Conjunctiva: normal, no exudate, no injection, Sclera: no appreciated abnormality, Lids and lashes: appear normal, bilaterally. 22:47 ENT: External ear(s): are unremarkable, Nose: is normal, Mouth: Lips: moist, Oral mucosa: pink and intact, moist, Posterior pharynx: is normal, airway is patent, no erythema, no exudate. 22:47 Neck: ROM/movement: is normal, is supple, no meningismus, no nuchal rigidity. 22:47 Chest/axilla: Inspection: normal, Palpation: is normal, no crepitus, no tenderness. 22:47 Cardiovascular: Rate: bradycardic, Rhythm: irregular, Edema: is not appreciated, JVD: is not appreciated. 22:47 Respiratory: the patient does not display signs of respiratory distress, Respirations: normal, no use of accessory muscles, labored breathing, is not present, Breath sounds: are clear throughout, no decreased breath sounds. 22:47 Abdomen/GI: Inspection: abdomen appears normal, Bowel sounds: active, all quadrants, Palpation: soft, in all quadrants, mild abdominal tenderness, in all quadrants. 22:47 Neuro: Orientation: to person, place \T\ time. Mentation: is normal, Motor: moves all fours, strength is normal, Gait: is steady. 22:50 ECG was reviewed by the Attending Physician. Vital Signs: 22:25 BP 144 / 74; Pulse 63; Resp 18; Temp 99.0(O); Pulse Ox 98% on R/A; bb 23:00 BP 121 / 70; Pulse 55; Resp 16; Pulse Ox 99% on R/A; bb 08/05 01:14 BP 147 / 69 RA Supine (auto/reg); Pulse 61 MON; Resp 20 S; Temp 98.3(O); Pulse Ox 100% ds4 on R/A; 02:27 BP 142 / 81; Pulse 76; Resp 16 S; Temp 98.4(O); Pulse Ox 100% on R/A; bb MDM: 08/04 22:29 Patient medically screened. cp 08/05 02:05 Data reviewed: vital signs, nurses notes, lab test result(s), EKG, radiologic studies, cp CT scan. 02:05 Test interpretation: by ED physician or midlevel provider: ECG, plain radiologic cp studies, chest xray negative for infiltrates. Counseling: I had a detailed discussion with the patient and/or guardian regarding: the historical points, exam findings, and any diagnostic results supporting the discharge/admit diagnosis, lab results, radiology results, to return to the emergency department if symptoms worsen or persist or if there are any questions or concerns that arise at home. Response to treatment: the patient's symptoms have markedly improved after treatment, and as a result, I will discharge patient. 08/04 22:31 Order name: Basic Metabolic Panel cp 08/04 22:31 Order name: CBC with Diff cp 08/04 22:31 Order name: LFT's cp 08/04 22:31 Order name: Magnesium cp 08/04 22:31 Order name: NT PRO-BNP cp 02 22:31 Order name: PT-INR cp 08/04 22:31 Order name: Troponin (emerg Dept Use Only) cp 08/04 22:31 Order name: Lipase cp 08/05 00:22 Order name: CBC with Automated Diff; Complete Time: 00:44 EDMS 08/05 00:44 Interpretation: Normal except: RBC 4.30; HGB 12.5; HCT 38.2; RDW 16.9; IGGY% 82.9; LYM% cp 8.1. 08/05 00:22 Order name: Protime (+INR); Complete Time: 00:44 EDMS 08/05 00:38 Order name: Basic Metabolic Panel; Complete Time: 00:44 EDMS 08/05 00:45 Interpretation: Normal except: CL 113; GLUC 186; GFR 85; CA 7.6. cp 08/05 00:38 Order name: Liver (Hepatic) Function; Complete Time: 00:44 EDMS 08/05 00:45 Interpretation: Normal except: AST 11; TP 5.7; ALB 2.9; A/G 1.0. cp 08/05 00:38 Order name: Troponin (Emerg Dept Use Only); Complete Time: 00:44 EDMS 08/05 00:38 Order name: Magnesium; Complete Time: 00:44 EDMS 08/05 00:45 Interpretation: Abnormal: MG 1.7. cp 08/04 22:31 Order name: XRAY Chest (1 view) cp 08/04 22:31 Order name: EKG; Complete Time: 01:24 cp 08/04 22:31 Order name: Cardiac monitoring; Complete Time: 22:33 cp 08/04 22:31 Order name: EKG - Nurse/Tech; Complete Time: 22:34 cp 08/04 22:31 Order name: IV Saline Lock; Complete Time: 22:34 cp 08/04 22:31 Order name: Labs collected and sent; Complete Time: 00:38 cp 08/04 22:31 Order name: O2 Per Protocol; Complete Time: 22:34 cp 08/04 22:31 Order name: O2 Sat Monitoring; Complete Time: 22:34 cp 08/04 22:31 Order name: CT Abd/Pelvis - IV Contrast Only cp 08/05 00:38 Order name: Lipase; Complete Time: 00:44 EDMS 08/05 00:39 Order name: NT PRO-BNP; Complete Time: 00:44 EDMS 08/05 00:47 Order name: Vital Signs; Complete Time: 01:17 cp 08/05 01:10 Order name: PO challenge; Complete Time: 01:46 cp EC/14 22:50 Rate is 59 beats/min. Rhythm is irregular. QRS interval is normal. QT interval is cp normal. Interpreted by me. Reviewed by me. Administered Medications: 08/05 00:05 Drug: Zofran 4 mg Route: IVP; Site: right forearm; bb 01:00 Follow up: Response: No adverse reaction; Nausea is decreased bb 00:09 Drug: Pepcid 20 mg Route: IVP; Site: right forearm; bb 01:42 Follow up: Response: No adverse reaction bb 01:15 Drug: NS 0.9% 500 ml Route: IV; Rate: 500 ml/hr; Site: right forearm; bb 02:15 Follow up: IV Status: Completed infusion; IV Intake: 500ml bb 01:15 Drug: Magnesium Sulfate 1 grams Route: IVPB; Infused Over: 1 hrs; Site: right forearm; bb 02:20 Follow up: IV Status: Completed infusion; IV Intake: 100ml bb Disposition: 02:30 Co-signature as Attending Physician, Mikel Bain MD I agree with the assessment and kdr plan of care. Disposition: 08/05/19 02:06 Discharged to Home. Impression: Nausea and vomiting, Diarrhea, unspecified. - Condition is Stable. - Discharge Instructions: Food Choices to Help Relieve Diarrhea, Adult, Diarrhea, Adult, Nausea and Vomiting, Adult. - Prescriptions for Zofran 4 mg Oral Tablet - take 1 tablet by ORAL route every 12 hours As needed; 20 tablet. - Medication Reconciliation Form, Thank You Letter, Antibiotic Education, Prescription Opioid Use form. - Follow up: Private Physician; When: 2 - 3 days; Reason: Recheck today's complaints. - Problem is new. - Symptoms have improved. Signatures: Dispatcher [employer] EDMS Mikel Bain MD MD kdr Kacey Johnson RN RN bb Jalil Bradford PA PA cp Bebe Travis RN RN vc Corrections: (The following items were deleted from the chart) 00:45 00:44 Normal except: CL 113; GLUC 186; GFR 85. cp cp 02:28 02:06 08/05/2019 02:06 Discharged to Home. Impression: Nausea and vomiting; Diarrhea, bb unspecified. Condition is Stable. Forms are Medication Reconciliation Form, Thank You Letter, Antibiotic Education, Prescription Opioid Use. Follow up: Private Physician; When: 2 - 3 days; Reason: Recheck today's complaints. Problem is new. Symptoms have improved. cp
[2019-08-05 02:45] VITALS: O2SAT 100
[2019-08-05 02:46] VITALS: BP 142/81; TEMP 98.4
--- NOTE | 2019-08-05 06:53 | EKG ---
Test Date: 2019-08-04 Test Time: 22:42:09 Nca Certified Concierge: LARRY MEASUREMENT RESULTS: Intervals: Rate: 59 AL: QRSD: 92 QT: 418 QTc: 413 [place]: P: AL: QRS: -59 T: 48 INTERPRETIVE STATEMENTS: Sinus bradycardia Left anterior fascicular block Abnormal ECG Compared to ECG 06/16/2019 05:57:13 no significant change from previous ECG Electronically Signed On 08-05-19 06:53:21 SUEDE CLEANER by Donell Marie
--- NOTE | 2019-08-05 07:11 | RAD REPORT ---
EXAM DESCRIPTION: Esther Single View08/05/2019 12:36 am CLINICAL HISTORY: Abdominal pain COMPARISON: May 2019 FINDINGS: The lungs appear clear of acute infiltrate. The heart is borderline enlarged IMPRESSION: No acute abnormalities displayed
--- NOTE | 2019-08-07 12:32 | RAD REPORT ---
EXAM DESCRIPTION: CT - Abdomen Pelvis W Contrast - 08/05/2019 4:23 am CLINICAL HISTORY: The patient is 79 years old and is Male; DIARRHEA/NAUSEA/VOMITING TECHNIQUE: Axial computed tomography images of the abdomen and pelvis with intravenous contrast. S agittal and coronal reformatted images were created and reviewed. This CT exam was performed using one or more of the following dose reduction techniques: automated exposure control, adjustment of t he mA and/or kV according to patient size, and/or use of iterative reconstruction technique. COMPARISON: No relevant prior studies available. FINDINGS: LUNG BASES: Unremarkable. No mass. No consolidation. ABDOMEN: LIVER: There is a diffuse decrease in hepatic parenchymal density, consistent with fatty infiltr ation. GALLBLADDER AND BILE DUCTS: Surgical clips are present in the right upper quadrant, consistent w ith previous cholecystectomy. PANCREAS: Pancreas is atrophic. SPLEEN: Unremarkable. ADRENALS: Unremarkable. No mass. 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 The kidneys enhance symmetrically. No obstructing renal or ureteral calculus is seen. STOMACH AND BOWEL: The stomach is moderately distended with fluid and food contents. The small b owel is normal in caliber. The colon is filled with liquid stool and air. There is no mucosal thicken ing or evidence of bowel obstruction. PELVIS: APPENDIX: The appendix is normal in caliber without surrounding inflammation. BLADDER: The bladder is incompletely distended. REPRODUCTIVE: Unremarkable as visualized. ABDOMEN and PELVIS: INTRAPERITONEAL SPACE: Unremarkable. No free air. No significant fluid collection. BONES/JOINTS: Mild degenerative changes of the bones is present. SOFT TISSUES: The soft tissues are normal. VASCULATURE: Atherosclerosis of the vasculature is present. The vessels are normal in caliber. No abdominal aortic aneurysm. LYMPH NODES: Unremarkable. No enlarged lymph nodes. IMPRESSION: 1. Diffusely filled colon which can be seen with a clinical history of diarrhea. There is no bowel obstruction. 2. Chronic findings as detailed above. Electronically signed by: Mable Valentin MD 08/05/2019 12:56 AM MAILING CLERK Due to temporary technical issues with the PACS/Fluency reporting system, reports are being signed by the in house radiologist as a courtesy to ensure prompt reporting. The interpreting radiologist is f ully responsible for the content of the report.
== END 2019-08-05 02:28 | disposition home or self-care (01) ==
LOC: ER 22:20
DX: R19.7 Diarrhea, unspecified (principal); I10 Essential (primary) hypertension; E11.9 Type 2 diabetes mellitus without complications; Z88.5 Allergy status to narcotic agent
CPT/HCPCS: 96365; 93005; 85025; 80048; 36415; 83735; 85610; 80076; 84484; 83690; 83880; 74177; 71045; 96375; 99283; Q9967; J3475; J7040; J2405

== ENCOUNTER 2020-04-01 17:25 | Emergency (ER) | payer OTHER ==
--- OUTSIDE RECORDS SUMMARY | 2020-04-01 17:28 | XMS REPORT | Continuity of Care Document ---
:1940 Author Organization [facility] t Address [address] [place] [address] Care Team Providers Name Role Phone Jahaira PITTS, A Attending Clinician [place] FOX, A Attending Clinician Provider, Urgent Care Attending Clinician Unavailable Gramm HEATHER, A Attending Clinician Doctor Unassigned, Name Attending Clinician Unavailable Problems This patient has no known problems. Allergies, Adverse Reactions, Alerts This patient has no known allergies or adverse reactions. Medications This patient has no known medications. Procedures This patient has no known procedures. Encounters Start End Encounter Admission Attending Care Care Encounter Source Date/Time Date/Time Type Type Clinicians Facility Department ID 2020-03-30 2020-03-[id number] 00:00:00 00:00:00 [facility] [id number] [place] [id number] Professio [phone] [place] [address] 2020-03-27 2020-03-27 Telephone Freedom [facility] [id number] 00:00:00 00:00:00 [facility] [id number] [place] [id number] Professio [phone] [place] [address] 2020-03-27 2020-03-27 Refill Freedom [facility] [id number] 00:00:00 00:00:00 [facility] [id number] [place] [id number] Professio [phone] formerly [facility] [address] 2020-03-21 2020-03-21 Urgent Provider, [facility] [id number] 12:56:07 14:48:[address] [facility] [id number] Care [place] [id number] Professio [phone] [place] [address] [address] 2020-03-13 2020-03-13 Office Gramm, [facility] [id number] 12:58:24 14:11:22 Visit Kaylie Addison [place] [id number] [place] [id number] Professio [phone] [address] 2020-03-01 2020-03-01 Orders Doctor [place] [id number] 00:00:00 00:00:00 Only Unassigned, SONIDO [id number] [place] [facility] [id number] [phone] [id number] Results This patient has no known results.
--- OUTSIDE RECORDS SUMMARY | 2020-04-01 17:28 | XMS REPORT | Summary of Care ---
:1940 Author Organization [facility] Address [address] [place] [address] Care Team Providers Name Role Phone Cyn Loja MD Primary Care Provider Reason for Visit Reason Comments Refill Request Encounter Details Date Type Department Care Team Description 01/05/2020 Refill [facility] and Aria Quintana MD Refill Request Adult Primary Care- [address] [place] [address] [place] [address], [address] [place] [address] Allergies Active Allergy Reactions Severity Noted Date Comments Canagliflozin Other - See comments 01/18/2017 Genita l mycotic infections Codeine Rash 06/15/2018 Gzvmdah-Rqv-Rng Other - See comments 08/07/2019 Gail re myalgia Reductase Inhibitors documented as of 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 (statuses as of 01/05/2020) Medications Medication Sig Dispensed Refills Start End Date Status Date pantoprazole 40 mg Take 40 mg by 0 Active EC tablet mouth daily. aspirin 81 mg Take 1 tablet by 30 tablet 1 Active chewable tablet mouth daily. 9 finasteride 5 mg Take 1 tablet by 90 tablet 3 Active tabletIndications: mouth daily. 9 Orchalgia tamsulosin 0.4 mg Take 1 capsule by 90 capsule 3 Active 24 hr mouth at bedtime. 9 capsuleIndications: Dizziness isosorbide Take 0.5 tablets 0 Ac tive mononitrate 60 mg by mouth daily. 9 24 hr tablet glimepiride 1 mg Take 1 tablet by 30 tablet 6 Active tabletIndications: mouth daily with 0 Type 2 diabetes breakfast. mellitus with complication, without long-term current use of insulin EZETIMIBE 10 mg TAKE 1 TABLET BY 90 tablet 1 Active tabletIndications: MOUTH EVERY DAY 0 Mixed hyperlipidemia LISINOPRIL 20 mg TAKE 1 TABLET BY 90 tablet 0 Active tabletIndications: MOUTH EVERY DAY 0 Essential hypertension metformin ER 500 mg Take 1 tablet by 90 tablet 2 Active 24 hr mouth daily with 0 tabletIndications: breakfast. Type 2 diabetes with complication blood sugar Use as directed, 100 Strip 2 A ctive diagnostic strip once a day to 0 monitor blood glucose for ICD code E11.9 CLOPIDOGREL 75 mg TAKE 1 TABLET BY 90 tablet 2 Active tabletIndications: MOUTH EVERY DAY 0 Coronary artery disease involving koi coronary artery of koi heart without angina pectoris PAROXETINE 20 mg TAKE 1 TABLET BY 90 tablet 2 Active tabletIndications: MOUTH DAILY. 0 Anxiety REPLACES ESCITALOPRAM PARoxetine 20 mg Take 1 tablet by 30 tablet 5 Discontinued tabletIndications: mouth daily. 0 20 Anxiety REPLACES ESCITALOPRAM documented as of 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 (statuses as of 01/05/2020) Active Problems Problem Noted Date Greater trochanteric bursitis of left hip 11/28/2019 Overview: Added automatically from request for santo denilson [id number] SI (sacroiliac) joint dysfunction 11/28/2019 Overview: Added automatically from request for santo denilson [id number] Onychomycosis of toenail 06/04/2019 Lumbar spondylosis 12/20/2018 Degeneration of lumbar intervertebral disc 11/21/2018 Lumbar radiculopathy 11/21/2018 Myofascial pain 11/21/2018 Elevated sed rate 10/05/2018 Low ferritin 09/14/2018 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, without lo ng-term current use 07/07/2018 of insulin Bradycardia 06/15/2018 Weakness 06/15/2018 Dizziness 06/15/2018 Coronary artery disease involving koi coronary martha ry of koi heart 06/15/2018 without angina pectoris Essential hypertension 06/15/2018 PAF (paroxysmal atrial fibrillation) 06/15/2018 Gastritis 11/12/2017 Chronic fatigue 10/15/2017 Colon polyps 06/25/2017 Fatty liver 06/25/2017 Migraines 06/25/2017 Vitiligo 06/25/2017 Low testosterone 06/25/2017 Statin intolerance 08/07/2016 Diabetic polyneuropathy associated with type 2 diabete s mellitus 08/20/2015 Overview: Overview: Converted from Centricity: Description - PERIPHERAL NEUROPATHY Last Assessment & Plan: Formatting of this note might be differe nt from the original. ASSESSMENT: The patient's diabetes is improved Diagnostics Reviewed: Lab Results Component Value Date/Time HEMOGLOBIN A1C 6.1 (H) 12/20/2017 0946 CHOLESTEROL 155 01/21/2017 1017 LDL CHOLESTEROL CALCULATED 68 7 1017 HDL CHOLESTEROL 33 (L) 01/21/2017 1017 History Smoking Status Never Smoker Smokeless Tobacco Never Used Diabetic Health Maintenance Status Date Diabetic Eye Exam Overdue 06/21/2014 Done 06/21/2013 Seasonal Influenza Vaccine Next Due 03/21/2018 Done 03/21/2017 Imm Admin: Influenza (I M) Diabetic Foot Exam Next Due 09/30/2018 Done 09/30/2017 SmartData: WORKFLOW - D IABETES - DIABETIC FOOT EXAM PERFORMED Patient has more history with this top ic... PLAN: Continue same medications Examine and protect feet , Occlusion and stenosis of unspecified carotid artery 0 08/20/2015 Overview: Overview: Converted from Centricity: Description - CAROTID ARTERY STENOSIS Anxiety documented as of 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 (statuses as of 01/05/2020) Immunizations Name Administration Dates Next Due Influenza High Dose 04/11/2019, 03/01/2018 Influenza Virus Vaccine 03/21/2017 Pneumococcal Polysaccharide, PPSV23 (PNEUMOVAX) 07/26/2012 TDAP 10/03/2015 documented as of 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 Social History Tobacco Use Types Packs/Day Years Used Date Never Smoker Smokeless Tobacco: Never Used Alcohol Use Drinks/Week oz/Week Comments No Sex Assigned at Date Recorded Not on file Job Start Date Occupation Industry Not on file Not on file Not on file Travel History Travel Start Travel End No recent travel history available. COVID-19 Exposure Response Date Recorded In the last month, have you been in contact with No / Unsure 12/08/2019 4:02 PM CDT someone who was confirmed or suspected to have Coronavirus / COVID-19? documented as of 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 Last Filed Vital Signs Not on filedocumented in 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 Plan of Treatment Date Type Specialty Care Team Description 01/15/2020 Office Visit Pain Medicine Dayana Mariano MD [address] [place], [place] [address] 01/29/2020 Office Visit Family Medicine Jeanette Loja MD [address] [phone] Health Maintenance Due Date Last Done Comments FOOT EXAM 01/07/1958 Zoster Recombinant Vaccine 01/07/1990 (SHINGRIX) (1 of 2) Medicare Wellness Visit 01/07/2005 PNEUMOCOCCAL VACCINES 65+ (2 of 2 07/26/2013 07/26/2012 - PCV13) EYE EXAM 09/20/2019 09/19/2018 URINE MICROALBUMIN 12/08/2019 12/07/2018 HgA1C 01/29/2020 07/31/2019, 04/11/2019, 12/07/2018, Additional history exists INFLUENZA VACCINE (#1) 2020 04/11/2019, 03/01/2018, 03/21/2017 CREATININE (SERUM) 07/31/2020 07/31/2019, 04/11/2019, 01/09/2019, Additional history exists LDL-C 07/31/2020 07/31/2019, 04/11/2019, 12/07/2018, Additional history exists Depression Screening 12/12/2020 12/13/2019, 06/19/2019 DTaP,Tdap,and Td Vaccines (2 - Td) 10/02/2025 10/03/2015 documented as of 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 Results Not on filedocumented in 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 Visit Diagnoses Diagnosis Anxiety Anxiety state, unspecified documented in 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 Insurance Payer Benefit Plan Subscriber ID Effective Phone Address Typ e / Group Dates MEDICARE MEDICARE PART xxxxxxxxxxx 2004-Prese [phone] [address] X Medicare A & B nt 82 [id number] [place] [id number] [employer] [id number] 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
--- OUTSIDE RECORDS SUMMARY | 2020-04-01 17:29 | XMS REPORT | Summary of Care ---
:1940 Author Organization [facility] Address [address] [place] [address] Care Team Providers Name Role Phone Cyn Loja MD Primary Care Provider Reason for Visit Reason Comments Follow-up left knee injection (Routine) Status Reason Specialty Diagnoses / Procedures Referred By Serjio dukeserred To Contact Contact Authorized Orthopedic Diagnoses Right knee pain, unspecified chronicity Knee crepitus, right [place], Surgery Procedures CONSULT/REFERRAL ORTHOPAEDIC SURGERY [place] METHYLPREDNISOLONE 80 MG INJ W[place] ARTHROCENTESIS ASPIR&/INJ MAJOR JT/BURSA W/O Aria Addison MD [facility] [place] [address] Encounter Details Date Type Department Care Team Description 01/18/2020 Office Visit [facility] Orthopaedic [place] ain in both knees, Surgery- Otis Elkins MD unspecified chronicity [address] [facility], [address] ([address]x) [address] [place] [address] [place], [place] [phone] [address] [phone] Allergies Active Allergy Reactions Severity Noted Date Comments Canagliflozin Other - See comments 01/18/2017 Genita l mycotic infections Codeine Rash 06/15/2018 Tdywtea-Abi-Vve Other - See comments 08/07/2019 Gail re myalgia Reductase Inhibitors documented as of 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 (statuses as of 01/18/2020) Medications Medication Sig Dispensed Refills Start Date End Date Status pantoprazole 40 mg EC Take 40 mg by 0 Active tablet mouth daily. aspirin 81 mg Take 1 tablet by 30 tablet 1 06/25/2018 Active chewable tablet mouth daily. finasteride 5 mg Take 1 tablet by 90 tablet 3 10/10/2018 Active tabletIndications: mouth daily. Orchalgia tamsulosin 0.4 mg 24 Take 1 capsule by 90 capsule 3 01/12/2019 Active hr mouth at bedtime. capsuleIndications: Dizziness isosorbide Take 0.5 tablets 0 02/03/2019 A ctive mononitrate 60 mg 24 by mouth daily. hr tablet glimepiride 1 mg Take 1 tablet by 30 tablet 6 08/07/2019 Active tabletIndications: mouth daily with Type 2 diabetes breakfast. mellitus with complication, without long-term current use of insulin EZETIMIBE 10 mg TAKE 1 TABLET BY 90 tablet 1 08/07/2019 Active tabletIndications: MOUTH EVERY DAY Mixed hyperlipidemia metformin ER 500 mg Take 1 tablet by 90 tablet 2 11/06/2019 Active 24 hr mouth daily with tabletIndications: breakfast. Type 2 diabetes with complication blood sugar Use as directed, 100 Strip 2 11/15/2019 Active diagnostic strip once a day to monitor blood glucose for ICD code E11.9 CLOPIDOGREL 75 mg TAKE 1 TABLET BY 90 tablet 2 11/20/2019 Active tabletIndications: MOUTH EVERY DAY Coronary artery disease involving [place] coronary artery of [place] heart without angina pectoris PAROXETINE 20 mg TAKE 1 TABLET BY 90 tablet 2 01/05/2020 Active tabletIndications: MOUTH DAILY. Anxiety REPLACES ESCITALOPRAM LISINOPRIL 20 mg TAKE 1 TABLET BY 90 tablet 0 01/16/2020 Active tabletIndications: MOUTH EVERY DAY Essential hypertension Hospital, Clinic, or Ordered Dose Route Frequency Start Date End D ate Status Other Facility Administered Medication triamcinolone 40 mg Intra-articu ONCE 01/18/2020 01/18/2020 E nded acetonide (KENALOG) injection 40 mg documented as of 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 (statuses as of 01/18/2020) Active Problems Problem Noted Date Greater trochanteric bursitis of left hip 11/28/2019 Overview: Added automatically from request for santo denilson [id number] SI (sacroiliac) joint dysfunction 11/28/2019 Overview: Added automatically from request for santo denilson [id number] Onychomycosis of toenail 06/04/2019 Lumbar spondylosis 12/20/2018 Degeneration of lumbar intervertebral disc 11/21/2018 Lumbar radiculopathy 11/21/2018 Myofascial pain 11/21/2018 Elevated sed rate 10/05/2018 Low ferritin 09/14/2018 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, without lo ng-term current use 07/07/2018 of insulin Bradycardia 06/15/2018 Weakness 06/15/2018 Dizziness 06/15/2018 Coronary artery disease involving [place] coronary martha ry of [place] heart 06/15/2018 without angina pectoris Essential hypertension [...] as of 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 (statuses as of 01/18/2020) Immunizations Name Administration Dates Next Due Influenza [...] Sign Reading Time Taken Comments Blood Pressure 136/76 01/18/2020 1:06 PM CDT Pulse 76 01/18/2020 1:06 PM CDT Temperature - - Respiratory Rate - - Oxygen Saturation - - Inhaled Oxygen Concentration - - Weight 81.6 kg (180 lb) 01/18/2020 1:06 PM CDT Height 177.8 cm (5' 10") 01/18/2020 1:06 PM CDT Body Mass Index 25.83 01/18/2020 1:06 PM CDT documented in 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 Progress Notes [place] MD - 01/18/2020 1:15 PM CDT Cc: Chief Complaint Patient presents with Follow-up knee injection Dave Moreland is a 80 year old male. Knee Pain The incident occurred more than 1 week ago. The incident occurred at home. There was no injury mechanism. The quality of the pain is described as aching, burning and stabbing. The pain is at a severityof 6/10. The pain is moderate. The pain has been intermittent since onset. Associated symptoms include an inability to bear weight, a loss of motion and numbness. The symptoms are aggravated by movement and weight bearing. He has tried non-weight bearing, immobilization and acetaminophen for the symptoms. The treatment provided no relief (medrol dosepak ). Allergies Dave is allergic to canagliflozin; codeine; and ngltaia-khq-euy reductase inhibitors. Medications Outpatient Medications Prior to Visit Medication Sig Dispense Refill LISINOPRIL 20 mg tablet TAKE 1 TABLET BY MOUTH EVERY DAY 90 tablet 0 PAROXETINE 20 mg tablet TAKE 1 TABLET BY MOUTH DAILY. REPLACES ESCITALOPRAM 90 tablet 2 CLOPIDOGREL 75 mg tablet TAKE 1 TABLET BY MOUTH EVERY DAY 90 tablet 2 blood sugar diagnostic strip Use as directed, once a day to monitor blood glucose for ICD code E11.9 100 Strip 2 metformin ER 500 mg 24 hr tablet Take 1 tablet by mouth daily with breakfast. 90 tablet 2 EZETIMIBE 10 mg tablet TAKE 1 TABLET BY MOUTH EVERY DAY 90 tablet 1 glimepiride 1 mg tablet Take 1 tablet by mouth daily with breakfast. 30 tablet 6 isosorbide mononitrate 60 mg 24 hr tablet [...] Histories Past Medical History: Diagnosis Date A-fib Anxiety CAD (coronary artery disease) s/p 3 stents Chronic fatigue 10/15/2017 Colon polyps 06/25/2017 Degeneration of lumbar intervertebral disc 11/21/2018 Diabetes off metformin Diabetic polyneuropathy associated with type 2 diabetes mellitus 08/20/2015 Overview: Converted from Centricity: Description - PERIPHERAL NEUROPATHY Last Assessment & Plan: ASSESSMENT: The patient's diabetes is improved Diagnostics Reviewed: Lab Results Component Value Date/Time HEMOGLOBIN A1C 6.1 (H) 12/20/2017 0946 CHOLESTEROL 155 01/21/2017 1017 LDL CHOLESTEROL CALCULATED 68 01/21/2017 1017H Fatty liver 06/25/2017 Gastritis 11/12/2017 History of heart artery stent HTN (hypertension) Low testosterone 06/25/2017 Lumbar radiculopathy 11/21/2018 Migraines 06/25/2017 Myocardial infarction Occlusion and stenosis of unspecified carotid artery 08/20/2015 Overview: Converted from Centricity: Description - CAROTID ARTERY STENOSIS Onychomycosis of toenail 06/04/2019 Statin intolerance 08/07/2016 Status post coronary artery stent placement Stroke 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, without long-term current use of insulin 07/07/2018 Vitiligo 06/25/2017 Past Surgical History: Procedure Laterality Date BACK SURGERY CHOLECYSTECTOMY COLONOSCOPY 04/25/2019 Dr. Ramirez ESOPHAGOGASTRODUODENOSCOPY 05/03/2019 Dr. 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 HENT: Negative. Eyes: Negative. Respiratory: Negative. Breasts: Negative. Cardiovascular: Negative. Gastrointestinal: Negative. Genitourinary: Negative. Musculoskeletal: Positive for myalgias. Skin: Negative. Neurological: Positive for weakness and numbness. Psychiatric/Behavioral: Negative. Endocrine: Endocrine negative Vital Signs There were no vitals taken for this visit. Physical Exam Musculoskeletal: Left knee: He exhibits decreased range of motion. Tenderness found. Medial joint line tenderness noted. General: Well-developed well-nourished oriented to person place and time HEENT normocephalic atraumatic atraumatic pupils equal round reactive to light extraocular muscles intact Cervical thoracic and lumbar spine without focal deficit normal kyphosis and lordosis Chest clear to auscultation and percussion Cardiovascular regular rate and rhythm without gallop rub or murmur soft without organomegaly Normal bowel sounds Neurologic: Focal myotome or dermatomal deficits Vascular: Intact symmetrical bilateral upper and lower extremities Skin without stasis varicosities or breakdown Extremities without cyanosis clubbing or edema Lymphatics no peripheral lymphedema Psych normal mood and affect. Neurovascular function is intact. To include brisk capillary refill warm pink skin active motor function and sensory function intact. Nursing note and vitals reviewed. Assessment/Plan Left knee osteoarthritis Patient received an ultrasound guided injection of 1cc kenalog and 4cc lidocaine to the left knee. The knee was examined and the knee was marked with the needle In the middle of the lateral joint line just lateral to the patellar tendon the knee was then prepped 3 times with Betadine in a Bullseye fashion and then once with alcohol allowing it to soak at least 20 seconds. Ultrasound guidance was usedto direct the needle posterior to the fat pad and an injection was administered of 1 cc Kenalog with4 cc 1% lidocaine without epinephrine without resistance. The skin was cleansed with alcohol and then dried with a sterile 4 x 4 and a sterile Band-Aid was applied patient tolerated procedure without di fficulty. documented in 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 Plan of Treatment Date Type Specialty Care Team Description 01/29/2020 Office Visit Family Medicine Jeanette Loja MD [address] [place] [phone] Health Maintenance Due Date Last Done [...] filedocumented in 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 Visit Diagnoses Diagnosis Pain in both knees, unspecified chronici ty - Primary documented in 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 Administered Medications Medication Order MAR Action Action Date Dose Rate Site triamcinolone acetonide Given 01/18/2020 1:13 PM CDT 40 mg Left Knee (KENALOG) injection 40 mg 40 mg, Intra-articular, ONCE, 1 dose, Sheila 01/18/20 at 1415, Routine documented in 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 Insurance Payer Benefit Plan Subscriber ID Effective Phone Address Typ e / Group Dates MEDICARE MEDICARE PART xxxxxxxxxxx 2004-Walter [phone] [address] X Medicare A & B nt 82 [id number] [place] [id number] [employer] [id number] 2016- Indemnity ent documented as of 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
--- OUTSIDE RECORDS SUMMARY | 2020-04-01 17:29 | XMS REPORT | Summary of Care ---
:1940 Author Organization [facility] - [facility] Address [address] [place] [address] Care Team Providers Name Role Phone Cyn Loja MD Primary Care Provider Encounter Details Date Type Department Care Team Description [facility]/11[facility] Orthopedics - MD Radiology [address] [phone] Allergies Active Allergy Reactions Severity Noted Date Comments Canagliflozin Other - See comments 01/18/2017 Genita l mycotic infections Codeine Rash 06/15/2018 [id number] Other - See comments 08/07/2019 Gail re myalgia Reductase Inhibitors documented as of 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 (statuses as of 01/12/2020) Medications Medication Sig Dispensed Refills Start Date [...] Active tabletIndications: MOUTH EVERY DAY Mixed hyperlipidemia LISINOPRIL 20 mg TAKE 1 TABLET BY 90 tablet 0 10/20/2019 Active tabletIndications: MOUTH EVERY DAY Essential hypertension metformin ER 500 mg Take [...] MOUTH EVERY DAY Coronary artery disease involving atka coronary artery of atka heart without angina pectoris PAROXETINE 20 mg TAKE 1 TABLET BY 90 tablet 2 01/05/2020 Active tabletIndications: MOUTH DAILY. Anxiety REPLACES ESCITALOPRAM documented as of 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 (statuses as of 01/12/2020) Active Problems Problem Noted Date Greater trochanteric bursitis of left hip 11/28/2019 Overview: Added automatically from request for santo denilson [id number] SI (sacroiliac) joint dysfunction 11/28/2019 Overview: Added automatically from request for santo denilson [id number] Onychomycosis of toenail 06/04/2019 Lumbar spondylosis 12/20/2018 Degeneration of lumbar intervertebral disc 11/21/2018 Lumbar radiculopathy 11/21/2018 Myofascial pain 11/21/2018 Elevated sed rate 10/05/2018 Low ferritin 09/14/2018 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, without lo ng-term current use 07/07/2018 of insulin Bradycardia 06/15/2018 Weakness 06/15/2018 Dizziness 06/15/2018 Coronary artery disease involving atka coronary martha ry of atka heart 06/15/2018 without angina pectoris Essential hypertension [...] 09/30/2018 Done 09/30/2017 SmartData: WORKFLOW - D DANIEL - DIABETIC FOOT EXAM PERFORMED Patient has more history with this top ic... PLAN: Continue same medications Examine and protect feet , Occlusion and stenosis of unspecified carotid artery 0 08/20/2015 Overview: Overview: Converted from Centricity: Description - CAROTID ARTERY STENOSIS Anxiety documented as of 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 (statuses as of 01/12/2020) Immunizations Name Administration Dates Next Due Influenza [...] Mariano MD [address] [place] [phone] 01/29/2020 Office Visit Family Medicine Jeanette Loja MD [address] [place], [place] [address] [phone] Name Type Priority Associated Diagnoses Date/Ti me XR KNEE 3 VW BILATERAL IMAGING Routine Pain in both knees , 01/11/2020 1:17 PM unspecified chronicity CDT Name Type Priority Associated Diagnoses Order S chedule XR KNEE 3 VW BILATERAL IMAGING Routine Pain in both knees , 1 Occurrences starting unspecified chronicity 01/10 until 01/11/2020 Health Maintenance Due Date Last Done Comments [...] Pain in both knees, unspecified chronici ty documented in 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 Insurance Payer Benefit Plan Subscriber ID Effective Phone Address Typ e / Group Dates MEDICARE MEDICARE PART xxxxxxxxxxx 2004-Walter [phone] [address] X Medicare A & B nt 82 [id number] [place] [id number] NEW ERA LIFE [employer] ERA LIFE [id number] 2016- Indemnity ent documented as of 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
--- OUTSIDE RECORDS SUMMARY | 2020-04-01 17:29 | XMS REPORT | Summary of Care ---
:1940 Author Organization [facility] Address [address] [place] [address] Care Team Providers Name Role Phone Cyn Loja MD Primary Care Provider Reason for Visit Reason Comments Refill Request Encounter Details Date Type Department Care Team Description 01/16/2020 Refill [facility] Family Medicine Aria Park MD Refill Request - [address] [place] [address] [place] [address] [phone] Allergies Active Allergy Reactions Severity Noted Date Comments Canagliflozin Other - See comments 01/18/2017 Genita l mycotic infections Codeine Rash 06/15/2018 Jlsahql-Mmo-Qim Other - See comments 08/07/2019 Gail re myalgia Reductase Inhibitors documented as of 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 (statuses as of 01/16/2020) Medications Medication Sig Dispensed Refills Start End [...] tabletIndications: MOUTH EVERY DAY 0 Mixed hyperlipidemia metformin ER 500 mg Take [...] EVERY DAY 0 Coronary artery disease involving elem coronary artery of elem heart without angina pectoris PAROXETINE 20 mg TAKE 1 TABLET BY 90 tablet 2 Active tabletIndications: MOUTH DAILY. 0 Anxiety REPLACES ESCITALOPRAM LISINOPRIL 20 mg TAKE 1 TABLET BY 90 tablet 0 Active tabletIndications: MOUTH EVERY DAY 0 Essential hypertension LISINOPRIL 20 mg TAKE 1 TABLET BY 90 tablet 0 Discontinued tabletIndications: MOUTH EVERY DAY 0 20 Essential hypertension documented as of 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 (statuses as of 01/16/2020) Active Problems Problem Noted Date Greater trochanteric bursitis of left hip 11/28/2019 Overview: Added automatically from request for santo denilson [id number] SI (sacroiliac) joint dysfunction 11/28/2019 Overview: Added automatically from request for santo denilson [id number] Onychomycosis of toenail 06/04/2019 Lumbar spondylosis 12/20/2018 Degeneration of lumbar intervertebral disc 11/21/2018 Lumbar radiculopathy 11/21/2018 Myofascial pain 11/21/2018 Elevated sed rate 10/05/2018 Low ferritin 09/14/2018 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, without lo ng-term current use 07/07/2018 of insulin Bradycardia 06/15/2018 Weakness 06/15/2018 Dizziness 06/15/2018 Coronary artery disease involving elem coronary martha ry of elem heart 06/15/2018 without angina pectoris Essential hypertension [...] as of 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 (statuses as of 01/16/2020) Immunizations Name Administration Dates Next Due Influenza [...] Treatment Date Type Specialty Care Team Description 01/18/2020 Office Visit Orthopedic Surgery Gianna Hill MD [address] [address] [phone] 01/29/2020 Office Visit Family Medicine Jeanette Loja MD [address] [place] [address] [phone] Health Maintenance Due Date Last Done [...] filedocumented in 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 Visit Diagnoses Diagnosis Essential hypertension Unspecified essential hypertension documented in 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 Insurance Payer Benefit Plan Subscriber ID Effective Phone Address Typ e / Group Dates MEDICARE MEDICARE PART xxxxxxxxxxx 2004-Prese [phone] [address] X Medicare A & B nt 82 [id number] [place] [id number] NEW ERA LIFE [employer] ERA LIFE [id number] 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
--- OUTSIDE RECORDS SUMMARY | 2020-04-01 17:30 | XMS REPORT | Summary of Care ---
:1940 Author Organization [facility] - [facility] Address [address] [place] [address] Care Team Providers Name Role Phone Cyn Loja MD Primary Care Provider Reason for Referral Radiology Services (Routine) Status Reason Specialty Diagnoses / Referred By Referred To Procedures Contact Contact New Request Diagnostic Diagnoses Pain in both knees, unspecified chronicity [place] Rad[facility] Procedures XR KNEE 3 VW BILATERAL [place] [address] Reason for Visit Reason Comments Knee Pain Bilateral (Routine) Status Reason Specialty Diagnoses / Procedures Referred By Serjio benavides To Contact Contact Authorized Orthopedic Diagnoses Right knee pain, unspecified chronicity Knee crepitus, right [place], Surgery Procedures CONSULT/REFERRAL ORTHOPAEDIC SURGERY [place] METHYLPREDNISOLONE 80 MG INJ WI ARTHROCENTESIS ASPIR&/INJ MAJOR JT/BURSA W/O Aria Addison MD [address] [place] [address] Encounter Details Date Type Department Care Team Description 01/11/2020 Office Visit [facility] Orthopaedic [place] P ain in both knees, Surgery- Otis Elkins MD unspecified chronicity [address] (Primary Dx) [address] [facility] [place] [address] [address] [place] [phone] Allergies Active Allergy Reactions Severity Noted Date Comments Canagliflozin Other - See comments 01/18/2017 Genita l mycotic infections Codeine Rash 06/15/2018 [id number]-Asf-Kvx Other - See comments 08/07/2019 Gail re myalgia Reductase Inhibitors documented as of 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 (statuses as of 01/18/2020) Medications Medication Sig Dispensed Refills Start End [...] EVERY DAY 0 Coronary artery disease involving burns pai[place] coronary artery of burns [place] heart without angina pectoris PAROXETINE 20 mg [...] Added automatically from request for santo denilson [id number] SI (sacroiliac) joint dysfunction 11/28/2019 Overview: Added automatically from request for santo denilson [id number] Onychomycosis of toenail 06/04/2019 Lumbar spondylosis 12/20/2018 Degeneration of lumbar intervertebral disc 11/21/2018 Lumbar radiculopathy 11/21/2018 Myofascial pain 11/21/2018 Elevated sed rate 10/05/2018 Low ferritin 09/14/2018 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, without lo ng-term current use 07/07/2018 of insulin Bradycardia 06/15/2018 Weakness 06/15/2018 Dizziness 06/15/2018 Coronary artery disease involving burns [place] coronary martha ry of burns [place] heart 06/15/2018 without angina pectoris Essential hypertension [...] 155 01/21/2017 1017 LDL CHOLESTEROL CALCULATED 68 01/21/ 7 1017 HDL CHOLESTEROL 33 (L) 01/21/2017 [...] Sign Reading Time Taken Comments Blood Pressure 148/82 01/11/2020 1:19 PM CDT Pulse 63 01/11/2020 1:19 PM CDT Temperature - - Respiratory Rate - - Oxygen Saturation - - Inhaled Oxygen Concentration - - Weight 83.9 kg (185 lb) 01/11/2020 1:19 PM CDT Height 177.8 cm (5' 10") 01/11/2020 1:19 PM CDT Body Mass Index 26.54 01/11/2020 1:19 PM CDT documented in 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 Progress Notes Venus Rosenbaum, MAINTENANCE MECHANIC HELPER - 01/11/2020 2:15 PM CDT Cc: Chief Complaint Patient presents with Knee Pain Bilateral Dave Moreland is a 80 year old male. Knee Pain The incident occurred more than 1 week ago. The incident occurred at home. There was no injury mechanism. The pain is present in the left knee and right knee. The quality of the pain is described as stabbing and shooting. The pain is at a severity of 6/10. The pain is moderate. The pain has been intermittent since onset. Associated symptoms include numbness. The symptoms are aggravated by movement and weight bearing. He has tried NSAIDs, non-weight bearing and acetaminophen for the symptoms. The treatment provided mild relief. Allergies Dave is allergic to canagliflozin; codeine; and vhblprs-klk-pxm reductase inhibitors. Medications Outpatient Medications Prior to Visit Medication Sig Dispense Refill PAROXETINE 20 mg tablet TAKE 1 TABLET [...] mouth daily with breakfast. 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 HENT: Negative. Eyes: Negative. Respiratory: Negative. Breasts: Negative. Cardiovascular: Negative. Gastrointestinal: Negative. Genitourinary: Negative. Musculoskeletal: Positive for back pain, joint swelling and myalgias. Skin: Negative. Neurological: Positive for dizziness, weakness, light-headedness and numbness. Psychiatric/Behavioral: Negative. Endocrine: Endocrine negative Vital Signs Ht 70" (177.8 cm) | Wt 83.9 kg (185 lb) | BMI 26.54 kg/m Physical Exam Musculoskeletal: General: Well-developed well-nourished oriented to person place [...] intact. Nursing note and vitals reviewed. Assessment/Plan Bilateral knee osteoarthritis Patient's knee(s) is/are wearing out and will eventually need a total knee replacement but will takepreventative measures prior to discussing surgery. Will take this in a stepwise fashion first beginning with NSAIDs. Next would be a cortisone injection. A cortisone injection will only help with the inflammatory response. Cortisone injections will be given no less than 3 months in a 3 year time frame. Hymalecular weight hylaronic acid injection series would follow cortisone injections. If the response is well to the cortisone this is usually an indication of how one will respond to Hymalecular weight hylaronic injections. These injections are given once weekly to the affected knee for 3 weeks. This can give at least 6 months of relief in 3 out of 4 people. If these steps do not help the last option would be to have a total knee replacement. The Rehab department will reach out to discuss making an appointment for an informational session called Total Replacement Boot Camp. This does not mean you are ready for a total knee replacement, it's simply preparation should you eventually decide to have/need a joint replacement. Prescribe medrol dosepak today follow up for an injection if needed. documented in 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 Plan of Treatment Date Type Specialty Care Team Description 01/29/2020 Office Visit Family Medicine Jeanette Loja MD [address] [place] [address] [phone] Name Type Priority Associated Diagnoses Date/Ti me XR KNEE 3 VW BILATERAL IMAGING Routine Pain in both knees , 01/11/2020 1:17 PM unspecified chronicity CDT Name Type Priority Associated Diagnoses Order S chedule XR KNEE 3 VW BILATERAL IMAGING Routine Pain in both knees , Expected: 01/11/2020, unspecified chronicity Expir es: 01/10/2021 Health Maintenance Due Date Last Done Comments [...] ty - Primary documented in 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 Insurance Payer Benefit Plan Subscriber ID Effective Phone Address Typ e / Group Dates MEDICARE MEDICARE PART xxxxxxxxxxx 2004-Walter [phone] [address]IE X Medicare A & B nt 82 [id number] [place] [id number] NEW ERA LIFE NEW ERA LIFE [id number] 2016- Indemnity ent documented as of 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
--- OUTSIDE RECORDS SUMMARY | 2020-04-01 17:30 | XMS REPORT | Summary of Care ---
:1940 Author Organization [facility] Address [address] [place] [address] Care Team Providers Name Role Phone Cyn Loja MD Primary Care Provider Reason for Visit Reason Comments Follow-up left knee injection (Routine) Status Reason Specialty Diagnoses / Procedures Referred By Serjio dukeserred To Contact Contact Authorized Orthopedic Diagnoses Right knee pain, unspecified chronicity Knee crepitus, right [place], Surgery Procedures CONSULT/REFERRAL ORTHOPAEDIC SURGERY CT METHYLPREDNISOLONE [address] ARTHROCENTESIS ASPIR&/INJ MAJOR JT/BURSA W/O Aria Addison MD [facility] [place] [address] Encounter Details Date Type Department Care Team Description 01/18/2020 Office Visit [facility] Orthopaedic [place] ain in both knees, Surgery- Otis Elkins MD unspecified chronicity [address] [facility], [address] (Primary Dx) [address] [place] [address] [place] [address]36 [place], [place] [phone] [address] [phone] Allergies Active Allergy Reactions Severity Noted Date Comments Canagliflozin Other - See comments 01/18/2017 Genita l mycotic infections Codeine Rash 06/15/2018 Gaezakm-Zzw-Vjz Other - See comments 08/07/2019 Gail re [...] MOUTH EVERY DAY Coronary artery disease involving quinault coronary artery of quinault heart without angina pectoris PAROXETINE 20 mg [...] Added automatically from request for santo denilson [id number] SI (sacroiliac) joint dysfunction 11/28/2019 Overview: Added automatically from request for santo denilson [id number] Onychomycosis of toenail 06/04/2019 Lumbar spondylosis 12/20/2018 Degeneration of lumbar intervertebral disc 11/21/2018 Lumbar radiculopathy 11/21/2018 Myofascial pain 11/21/2018 Elevated sed rate 10/05/2018 Low ferritin 09/14/2018 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, without lo ng-term current use 07/07/2018 of insulin Bradycardia 06/15/2018 Weakness 06/15/2018 Dizziness 06/15/2018 Coronary artery disease involving quinault coronary martha ry of quinault heart 06/15/2018 without angina pectoris Essential hypertension [...] Dave is allergic to canagliflozin; codeine; and jcnycpi-dmf-wex reductase inhibitors. 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
--- OUTSIDE RECORDS SUMMARY | 2020-04-01 17:30 | XMS REPORT | Summary of Care ---
:1940 Author Organization [facility] Address [address] [place] [address] Care Team Providers Name Role Phone Cyn Loja MD Primary Care Provider Reason for Visit Reason Comments Assessment Triage Encounter Details Date Type Department Care Team Description 01/23/2020 Telephone [facility] - Otis FOX [address] [place] [address] Dr osborne [address] [place] [address] [place] [address] [place] [address] [phone] Allergies Active Allergy Reactions Severity Noted Date Comments Canagliflozin Other - See comments 01/18/2017 Genita l mycotic infections Codeine Rash 06/15/2018 Hgjgqte-Paq-Jof Other - See comments 08/07/2019 Gail re myalgia Reductase Inhibitors documented as of 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 (statuses as of 01/23/2020) Medications Medication Sig Dispensed Refills Start Date [...] MOUTH EVERY DAY Coronary artery disease involving seneca coronary artery of seneca heart without angina pectoris PAROXETINE 20 mg TAKE 1 TABLET BY 90 tablet 2 01/05/2020 Active tabletIndications: MOUTH DAILY. Anxiety REPLACES ESCITALOPRAM LISINOPRIL 20 mg TAKE 1 TABLET BY 90 tablet 0 01/16/2020 Active tabletIndications: MOUTH EVERY DAY Essential hypertension documented as of 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 (statuses as of 01/23/2020) Active Problems Problem Noted Date Greater trochanteric bursitis of left hip 11/28/2019 Overview: Added automatically from request for santo denilson [id number] SI (sacroiliac) joint dysfunction 11/28/2019 Overview: Added automatically from request for santo denilson [id number] Onychomycosis of toenail 06/04/2019 Lumbar spondylosis 12/20/2018 Degeneration of lumbar intervertebral disc 11/21/2018 Lumbar radiculopathy 11/21/2018 Myofascial pain 11/21/2018 Elevated sed rate 10/05/2018 Low ferritin 09/14/2018 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, without lo ng-term current use 07/07/2018 of insulin Bradycardia 06/15/2018 Weakness 06/15/2018 Dizziness 06/15/2018 Coronary artery disease involving seneca coronary martha ry of seneca heart 06/15/2018 without angina pectoris Essential hypertension [...] as of 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 (statuses as of 01/23/2020) Immunizations Name Administration Dates Next Due Influenza High Dose 04/11/2019, 03/01/2018 Influenza Virus Vaccine 03/21/2017 Pneumococcal Polysaccharide, PPSV23 (PNEUMOVAX) 07/26/2012 TDAP 10/03/2015 documented as of 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 Social History Tobacco Use Types Packs/Day Years Used Date Never Smoker Smokeless Tobacco: Never Used Alcohol Use Drinks/Week oz/Week Comments No Sex Assigned at Date Recorded Not on file documented as of 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 Last Filed Vital Signs Not on filedocumented in 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 Miscellaneous Notes Telephone Encounter - Ruthann Yi R - 01/23/2020 3:58 PM CDTTriage call was sent to me , spoke with patient he says he is having some discoloration in RT leg itturns blackish , blue and red sometimes very mild pain , No swelling he was concerned about blood clot , also he states he was given a shot in knee/leg by Dr Hill . Advised Patient to go to Urgent Care or call DR Hill / Patient states he will call Dr. Hill and try to get in with him does not want to go to urgent care . I advise patient he does need to havehis leg looked at either by Urgent Care or Dr. Douglas Loja has no appointment today and she is home tomorrow doing tele-health calls , But she wantssomeone to look at leg. elephone Encounter - Faiza Santiago - 01/23/2020 3:47 PM CDTPt states currently on the left leg he thinks he may have a blood clot and states it is a little painful and is black and red. PSS Gabbie took triage to pass to nurse. documented in 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 Plan of Treatment Health Maintenance Due Date Last Done Comments FOOT EXAM 01/07/1958 Zoster Recombinant Vaccine 01/07/1990 (SHINGRIX) (1 of 2) Medicare Wellness Visit 01/07/2005 EYE EXAM 09/20/2019 09/19/2018 URINE MICROALBUMIN 12/08/2019 12/07/2018 HgA1C 01/29/2020 07/31/2019, 04/11/2019, 12/07/2018, Additional history exists INFLUENZA VACCINE (#1) 2020 04/11/2019, 03/01/2018, 03/21/2017 CREATININE (SERUM) 07/31/2020 07/31/2019, 04/11/2019, 01/09/2019, Additional history exists LDL-C 07/31/2020 07/31/2019, 04/11/2019, 12/07/2018, Additional history exists Depression Screening 12/12/2020 12/13/2019, 06/19/2019 DTaP,Tdap,and Td Vaccines (2 - Td) 10/02/2025 10/03/2015 PNEUMOCOCCAL VACCINES 65+ Completed 07/26/2012 documented as of 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 Results Not on filedocumented in 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 Insurance Payer Benefit Plan Subscriber ID Effective Phone Address Typ e / Group Dates MEDICARE MEDICARE PART [id number] 2004-Prese [phone] [address]IE X Medicare A & B nt 82 [id number] [place] [id number] NEW ERA LIFE NEW ERA LIFE [id number] 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
--- OUTSIDE RECORDS SUMMARY | 2020-04-01 17:30 | XMS REPORT | Summary of Care ---
:1940 Author Organization [facility] - [facility] Address [address] [place] [address] Care Team Providers Name Role Phone Cyn Loja MD Primary Care Provider Reason for Referral Radiology Services (Routine) Status Reason Specialty Diagnoses / Referred By Referred To Procedures Contact Contact New Request Diagnostic Diagnoses Pain in both knees, unspecified chronicity [place] [facility] Procedures XR KNEE 3 VW BILATERAL [place] [address] Reason for Visit Reason Comments Knee Pain Bilateral (Routine) Status Reason Specialty Diagnoses / Procedures Referred By Serjio benavides To Contact Contact Authorized Orthopedic Diagnoses Right knee pain, unspecified chronicity Knee crepitus, right Central, Surgery Procedures CONSULT/REFERRAL ORTHOPAEDIC SURGERY SD METHYLPREDNISOLONE 80 MG INJ SD ARTHROCENTESIS ASPIR&/INJ MAJOR JT/BURSA W/O Aria Addison MD [address] [place] [address] Encounter Details Date Type Department Care Team Description 01/11/[address] [facility] Orthopaedic [place] P ain in both knees, Surgery- Otis Elkins MD unspecified chronicity [address] (Primary Dx) [address] [place] [address] [place], [place] [phone] [address] Allergies Active Allergy Reactions Severity Noted Date Comments Canagliflozin Other - See comments 01/18/2017 Genita l mycotic infections Codeine Rash 06/15/2018 Ezjoqtv-Bzg-Zwe Other - See comments 08/07/2019 Gail re [...] EVERY DAY 0 Coronary artery disease involving [place] coronary artery of [place] heart without angina pectoris PAROXETINE 20 mg [...] Added automatically from request for santo denilson [id number] SI (sacroiliac) joint dysfunction 11/28/2019 Overview: Added automatically from request for santo denilson [id number] Onychomycosis of toenail 06/04/2019 Lumbar spondylosis 12/20/2018 Degeneration of lumbar intervertebral disc 11/21/2018 Lumbar radiculopathy 11/21/2018 Myofascial pain 11/21/2018 Elevated sed rate 10/05/2018 Low ferritin 09/14/2018 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, without lo ng-term current use 07/07/2018 of insulin Bradycardia 06/15/2018 Weakness 06/15/2018 Dizziness 06/15/2018 Coronary artery disease involving [place] coronary martha ry of [place] heart 06/15/2018 without angina pectoris Essential hypertension [...] in 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 Progress Notes Venus Rosenbaum, BUSINESS SERVICES MANAGER - 01/11/2020 2:15 PM CDT Cc: Chief [...] Dave is allergic to canagliflozin; codeine; and nlpaqbn-ryv-ujt reductase inhibitors. 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
--- OUTSIDE RECORDS SUMMARY | 2020-04-01 17:31 | XMS REPORT | Summary of Care ---
:1940 Author Organization [facility] Address [address] [place] [address] Care Team Providers Name Role Phone Cyn Loja MD Primary Care Provider Reason for Visit Reason Comments Medical Records [facility] Cardiology Encounter Details Date Type Department Care Team Description 03/01/2020 Telephone [facility] Giselle Traore M D Medical Records Cardiology- [address] ([facility] Cardiology [address] [place] [address], [place] ) [address] [place], [place] [address] [phone] Allergies Active Allergy Reactions Severity Noted Date Comments Canagliflozin Other - See comments 01/18/2017 Genita l mycotic infections Codeine Rash 06/15/2018 Funbinu-Khf-Xzg Other - See comments 08/07/2019 Gail re myalgia Reductase Inhibitors documented as of 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 (statuses as of 03/01/2020) Medications Medication Sig Dispensed Refills Start Date [...] MOUTH EVERY DAY Coronary artery disease involving [place] coronary artery of [place] heart without angina pectoris PAROXETINE 20 mg TAKE 1 TABLET BY 90 tablet 2 01/05/2020 Active tabletIndications: MOUTH DAILY. Anxiety REPLACES ESCITALOPRAM LISINOPRIL 20 mg TAKE 1 TABLET BY 90 tablet 0 01/16/2020 Active tabletIndications: MOUTH EVERY DAY Essential hypertension documented as of 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 (statuses as of 03/01/2020) Active Problems Problem Noted Date Greater trochanteric bursitis of left hip 11/28/2019 Overview: Added automatically from request for santo denilson [id number] SI (sacroiliac) joint dysfunction 11/28/2019 Overview: Added automatically from request for santo denilson [id number] Onychomycosis of toenail 06/04/2019 Lumbar spondylosis 12/20/2018 Degeneration of lumbar intervertebral disc 11/21/2018 Lumbar radiculopathy 11/21/2018 Myofascial pain 11/21/2018 Elevated sed rate 10/05/2018 Low ferritin 09/14/2018 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, without lo ng-term current use 07/07/2018 of insulin Bradycardia 06/15/2018 Weakness 06/15/2018 Dizziness 06/15/2018 Coronary artery disease involving [place] coronary martha ry of [place] heart 06/15/2018 without angina pectoris Essential hypertension [...] as of 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 (statuses as of 03/01/2020) Immunizations Name Administration Dates Next Due Influenza [...] 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 Miscellaneous Notes Telephone Encounter - Arben Oconnor MA - 03/01/2020 1:35 PM CDTReceived Records release request. Faxed to [facility] Dept. Follow up with them for status update. Will scan confirmation once received. documented in 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 Plan of Treatment [...] e / Group Dates MEDICARE MEDICARE PART [id number] 2004-Pres[place]ina [phone] P. O. TRIXIE X Medicare A & B nt 82 [id number] [place] [id number] NEW ERA LIFE [employer] ERA LIFE [id number] 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
--- OUTSIDE RECORDS SUMMARY | 2020-04-01 17:31 | XMS REPORT | Summary of Care ---
:1940 Author Organization [facility] Address [address] [place] [address] Care Team Providers Name Role Phone Cyn Loja MD Primary Care Provider Reason for Visit Reason Comments LOW BACK PAIN 01/28 Pelvic Pain 01/28 Testicular Pain Encounter Details Date Type Department Care Team Description 03/05/2020 Office Visit [facility] General Rita Whitt Ben ign prostatic hyperplasia, unspecified whether lower urinary tract symptoms present (Primary Dx); Surgery- [place] Inguinal pain of both sides; [address] [place] [address] [address] [facility] H/O bilateral inguinal herni a repair [address] [facility] [address] [address] [place], [place] [phone] [address] [phone] Allergies Active Allergy Reactions Severity Noted Date Comments Canagliflozin Other - See comments 01/18/2017 Genita l mycotic infections Codeine Rash 06/15/2018 Ivawdas-Ggk-Ogw Other - See comments 08/07/2019 Gail odom myalgia Reductase Inhibitors documented as of 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 (statuses as of 03/05/2020) Medications Medication Sig Dispensed Refills Start Date [...] MOUTH EVERY DAY Coronary artery disease involving [place] coronary artery of [place] heart without angina pectoris PAROXETINE 20 mg TAKE 1 TABLET BY 90 tablet 2 01/05/2020 Active tabletIndications: MOUTH DAILY. Anxiety REPLACES ESCITALOPRAM LISINOPRIL 20 mg TAKE 1 TABLET BY 90 tablet 0 01/16/2020 Active tabletIndications: MOUTH EVERY DAY Essential hypertension documented as of this encounter (statuses as of 03/05/2020) Active Problems Problem Noted Date Greater trochanteric bursitis of left hip 11/28/2019 Overview: Added automatically from request for santo denilson [id number] SI (sacroiliac) joint dysfunction 11/28/2019 Overview: Added automatically from request for santo denilson [id number] Onychomycosis of toenail 06/04/2019 Lumbar spondylosis 12/20/2018 Degeneration of lumbar intervertebral disc 11/21/2018 Lumbar radiculopathy 11/21/2018 Myofascial pain 11/21/2018 Elevated sed rate 10/05/2018 Low ferritin 09/14/2018 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, without lo ng-term current use 07/07/2018 of insulin Bradycardia 06/15/2018 Weakness 06/15/2018 Dizziness 06/15/2018 Coronary artery disease involving [place] coronary martha ry of [place] heart 06/15/2018 without angina pectoris Essential hypertension [...] as of this encounter (statuses as of 03/05/2020) Immunizations Name Administration Dates Next Due Influenza High Dose 04/11/2019, 03/01/2018 Influenza Virus Vaccine 03/21/2017 Pneumococcal Polysaccharide, PPSV23 (PNEUMOVAX) 07/26/2012 TDAP 10/03/2015 documented as of this encounter Social History Tobacco Use Types Packs/Day Years Used Date Never Smoker Smokeless Tobacco: Never Used Alcohol Use Drinks/Week oz/Week Comments No Sex Assigned at Date Recorded Not on file COVID-19 Exposure Response Date Recorded In the last month, have you been in contact with No / Unsure 03/05/2020 1:31 PM CDT someone who was confirmed or suspected to have Coronavirus / COVID-19? documented as of this encounter Last Filed Vital Signs Vital Sign Reading Time Taken Comments Blood Pressure 127/73 03/05/2020 1:32 PM CDT Pulse 67 03/05/2020 1:32 PM CDT Temperature 36.9 C (98.4 F) 03/05/2020 1:32 PM CDT Respiratory Rate 18 03/05/2020 1:32 PM CDT Oxygen Saturation - - Inhaled Oxygen Concentration - - Weight 80.2 kg (176 lb 12.8 oz) 03/05/2020 1:32 PM CDT Height - - Body Mass Index 25.37 01/18/2020 1:06 PM CDT documented in this encounter Progress Notes Rita Whitt MD - 03/05/2020 2:00 PM CDT GENERAL SURGERY FOLLOW UP CLINIC NOTE Patient Name: Daev Moreland Date of : 1940 Date: 03/05/2020 Subjective: Dave Moreland is a 80 year old male who presents for postoperative follow up. He was seen by Pain Management who felt his groin pain was due to hip and joint pain rather than pain dueto BIH repair. He underwent left sacroiliac joint injection and greater trochanteric bursa injectionon 12/13/2019. He presents today still c/o bilateral groin pain LT > RT, and states the injectionhe recently had done has not helped. He is also concerned about his prostate. He has a family member who recently from metastatic prostate cancer and would like his PSA level checked. He has a history of BPH confirmed by biopsy and takes Flomax daily. He has not seen a urologist in a long time and is requesting urology follow up. Past Medical History: Past Medical History: Diagnosis Date A-fib Anxiety [...] insulin 07/07/2018 Vitiligo 06/25/2017 Past Surgical History: Past Surgical History: Procedure Laterality Date BACK SURGERY CHOLECYSTECTOMY COLONOSCOPY 04/25/2019 Dr. Ramirez ESOPHAGOGASTRODUODENOSCOPY 05/03/2019 Dr. Ramirez EYE SURGERY cataract surgery b/l HAND/FINGER SURGERY UNLISTED HERNIA REPAIR SACROILIAC JOINT INJECTION Left 12/13/2019 Surgeon: Dayana Mariano MD; Location: [place] [facility] SPINE SURGERY STENT PLACEMENT (SHX) TROCHANTERIC STEROID INJECTION (SHX) Left 12/13/2019 Surgeon: Dayana Mariano MD; Location: [place] [facility] Allergies: Allergies Allergen Reactions Canagliflozin Other - See comments Genital mycotic infections Codeine Rash Ofmribx-Vsv-Eur Reductase Inhibitors Other - See comments Severe myalgia Medications: Patient's Medications START taking these medications No medications on file CONTINUE taking these medications which have NOT CHANGED ASPIRIN 81 MG CHEWABLE TABLET Take 1 tablet by mouth daily. BLOOD SUGAR DIAGNOSTIC STRIP Use as directed, once a day to monitor blood glucose for ICD code E11.9 CLOPIDOGREL 75 MG TABLET TAKE 1 TABLET BY MOUTH EVERY DAY EZETIMIBE 10 MG TABLET TAKE 1 TABLET BY MOUTH EVERY DAY FINASTERIDE 5 MG TABLET Take 1 tablet by mouth daily. GLIMEPIRIDE 1 MG TABLET Take 1 tablet by mouth daily with breakfast. ISOSORBIDE MONONITRATE 60 MG 24 HR TABLET Take 0.5 tablets by mouth daily. LISINOPRIL 20 MG TABLET TAKE 1 TABLET BY MOUTH EVERY DAY METFORMIN ER 500 MG 24 HR TABLET Take 1 tablet by mouth daily with breakfast. PANTOPRAZOLE 40 MG EC TABLET Take 40 mg by mouth daily. PAROXETINE 20 MG TABLET TAKE 1 TABLET BY MOUTH DAILY. REPLACES ESCITALOPRAM TAMSULOSIN 0.4 MG 24 HR CAPSULE Take 1 capsule by mouth at bedtime. START taking Modified Medications as Prescribed No medications on file STOP taking these medications No medications on file Current Outpatient Medications Medication Sig Dispense Refill LISINOPRIL 20 mg [...] No current facility-administered medications for this visit. Family History: Family History Problem Relation Age of Onset Coronary Heart Disease Mother Colon Cancer Sister Social History: Social History Socioeconomic History Marital status: Spouse name: Not on file Number of children: Not on file Years of education: Not on file Highest education level: Not on file Occupational History Not on file Social Needs Financial resource strain: Not on file Food insecurity Worry: Not on file Inability: Not on file Transportation needs Medical: Not on file Non-medical: Not on file Tobacco Use Smoking status: Never Smoker Smokeless tobacco: Never Used Substance and Sexual Activity Alcohol use: No Drug use: No Sexual activity: Not on file Lifestyle Physical activity Days per week: Not on file Minutes per session: Not on file Stress: Not on file Relationships Social connections Talks on phone: Not on file Gets together: Not on file Attends mandaen service: Not on file Active member of club or organization: Not on file Attends meetings of clubs or organizations: Not on file Relationship status: Not on file Intimate partner violence Fear of current or ex partner: Not on file Emotionally abused: Not on file Physically abused: Not on file Forced sexual activity: Not on file Other Topics Concern Not on file 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 Constitutional: Awake, alert, oriented, in no acute distress Head: Normocephalic, atraumatic Eyes: Extraocular movements grossly intact, pupils equal and reactive to light and accomodation, anicteric sclerae Ears: Normal external exam Nose: Normal external exam Mouth: Moist mucous membranes Neck: Supple, no jugular venous distention Respiratory: No respiratory distress GI: Soft, nontender, non-distended, bilateral ilioinguinal nerve block performed with a mixture of marcaine (75%) and lidocaine (25%), 10 mL each side Musculoskeletal: Normal tone and strength, normal range of motion Neurologic: CN II through XII grossly intact, no focal deficits Skin: Warm and dry, capillary refill <2 seconds, no jaundice, rashes, lesions, or erythema Psychiatric: Appropriate mood and affect, no obvious deficits of insight or judgment Assessment: Dave Moreland is a 80 year old male with prior open BIH repair with mesh and bilateral groin pain LT > RT. Bilateral lioinguinal nerve block performed in clinic today with relief of symptoms. Plan: 1. RTC 4 weeks for re-evaluation of pain, if pain returns consider repeat nerve block with Exparel and methylprednisolone 2. PSA level today 3. Appointment scheduled with Ingrid Mcneil NP, urology Rita Whitt M.D. 03/05/2020 13:32 Faith Stallings - 03/05/2020 2:00 PM CDTDave Gentry Moreland is a 80 year old male comes to clinic independent in ambulation for lower back pain and pelvic pain. Pt comes accompanied by spouse . Pt in NAD w/ pain reported 01/28. Pt preferred language is Italian. Pt. denies fall in last 12 months. Allergies and medications reviewed and updated. [id number] [place] - [address] AT [facility] [employer] [place] .sign documented in this encounter Plan of Treatment Date Type Specialty Care Team Description 03/05/2020 Corporation Lawyer Visit Phlebotomy Nora Whitt MD [address] [facility] [address] [place] [address] [phone] Benign prostatic 2, Adc Lab hyperplasia, unspecified whether lower u rinary tract symptoms present 03/13/2020 Office Visit Urology Kaylie Mcneil, FIRE POT OPERATOR [address] [facility] [address] [place], [place] [address] [phone] 04/02/2020 Office Visit Surgery Rita Whitt MD [address] [facility] [address] [place] [address] [phone] Name Type Priority Associated Diagnoses Order S chedule PROSTATIC SPECIFIC LAB Routine Benign prostatic Expec saida: 03/05/2020, ANTIGEN hyperplasia, unspecified Exp ires: 03/05/2021 whether lower urinary tract symptoms present Health Maintenance Due Date Last Done Comments [...] filedocumented in this encounter Visit Diagnoses Diagnosis Benign prostatic hyperplasia, unspecifie d whether lower urinary tract symptoms present - Primary Inguinal pain of both sides Abdominal pain, unspecified site H/O bilateral inguinal hernia repair Other postprocedural status Benign prostatic hyperplasia, unspecifie d whether lower urinary tract symptoms present documented in this encounter Insurance Payer Benefit Plan Subscriber ID Effective Phone Address Typ e / Group Dates MEDICARE MEDICARE PART [id number] 2004-[place] [phone] [address] TRIXIE X Medicare A & B nt 82 [id number] [place] [id number] NEW ERA LIFE NEW ERA LIFE [id number] 2016-Pres Brownemkarolina ent documented as of this encounter
--- OUTSIDE RECORDS SUMMARY | 2020-04-01 17:31 | XMS REPORT | Summary of Care ---
:1940 Author Organization [facility] Address [address] [place] [address] Care Team Providers Name Role Phone Cyn Loja MD Primary Care Provider Reason for Visit Reason Comments LOW BACK PAIN 01/28 Pelvic Pain 01/28 Testicular Pain Encounter Details Date Type Department Care Team Description 03/05/[address] [facility] General Rita Whitt Ben ign prostatic hyperplasia, unspecified whether lower urinary tract symptoms present (Primary Dx); Surgery- [place] Inguinal pain of both sides; [address] [place] [address] [address] [facility] H/O bilateral inguinal herni a repair [address] [facility] [address] [address] [place], [place] [phone] [address] [phone] Allergies Active Allergy Reactions Severity Noted Date Comments Canagliflozin Other - See comments 01/18/2017 Genita l mycotic infections Codeine Rash 06/15/2018 Cmksbvo-Uqi-Ohm Other - See comments 08/07/2019 Gail odom [...] MOUTH EVERY DAY Coronary artery disease involving [place] coronary [...] Added automatically from request for santo denilson [id number] SI (sacroiliac) joint dysfunction 11/28/2019 Overview: Added automatically from request for santo denilson [id number] Onychomycosis of toenail 06/04/2019 Lumbar spondylosis 12/20/2018 [...] SURGERY FOLLOW UP CLINIC NOTE Patient Name: Dave Moreland Date of : 1940 Date: 03/05/2020 [...] Left 12/13/2019 Surgeon: Dayana Mariano MD; Location: [place] [facility] SPINE SURGERY STENT PLACEMENT (SHX) TROCHANTERIC STEROID INJECTION (SHX) Left 12/13/2019 Surgeon: Dayana Mariano MD; Location: [place] [facility] Allergies: Allergies Allergen Reactions Canagliflozin Other - See comments Genital mycotic infections Codeine Rash Fbldhnc-Sbi-Suy Reductase Inhibitors Other - See comments Severe [...] file Gets together: Not on file Attends mandaeism service: Not on file Active member of [...] on file 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 Pt preferred language is [place]. Pt. denies fall in last 12 months. Allergies and medications reviewed and updated. [id number] [place] - [address] AT [facility] [employer] [place] .sign documented in this encounter Plan of Treatment Date Type Specialty Care Team Description 03/05/2020 Development Mgr Visit Phlebotomy Nora Whitt MD [address] [facility] [address] [place] [address] [phone] Benign prostatic 2, Adc Lab hyperplasia, unspecified whether lower u rinary tract symptoms present 03/13/2020 Office Visit Urology Kaylie Mcneil, SYSTEMS TEST ENGINEER [address] [facility] [address] [place], [place] [address] [phone] 04/02/2020 Office Visit Surgery Rita Whitt MD [address] [facility] [address] [place] [address] [phone] Name Type Priority Associated Diagnoses Order S [...] e / Group Dates MEDICARE MEDICARE PART [id number] 2004-[place] [phone] P. [address]. TRIXIE X Medicare A & B nt 82 [id number] [place] BR[place] [id number] NEW ERA LIFE NEW ERA LIFE [id number] 2016-Pres Brownemkarolina ent documented as of this encounter
--- OUTSIDE RECORDS SUMMARY | 2020-04-01 17:32 | XMS REPORT | Summary of Care ---
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 Orchalgia; [address] [facility] [facility] [address] [facility] Family history of prostate c ancer in father [address] [place] [phone] [place] [address] Allergies Active Allergy Reactions Severity Noted Date Comments Canagliflozin Other - See comments 01/18/2017 Genita l mycotic infections Codeine Rash 06/15/2018 Gxtcutt-Eyq-Xte Other - See comments 08/07/2019 Gail odom myalgia Reductase Inhibitors documented as of this encounter (statuses as of 03/13/2020) Medications Medication Sig Dispensed Refills Start Date [...] MOUTH EVERY DAY Coronary artery disease involving [place] coronary artery of [place] heart without angina pectoris PAROXETINE 20 mg TAKE 1 TABLET BY 90 tablet 2 01/05/2020 Active tabletIndications: MOUTH DAILY. Anxiety REPLACES ESCITALOPRAM LISINOPRIL 20 mg TAKE 1 TABLET BY 90 tablet 0 01/16/2020 Active tabletIndications: MOUTH EVERY DAY Essential hypertension documented as of this encounter (statuses as of 03/13/2020) Active Problems Problem Noted Date Greater trochanteric bursitis of left hip 11/28/2019 Overview: Added automatically from request for santo denilson [id number] SI (sacroiliac) joint dysfunction 11/28/2019 Overview: Added automatically from request for santo denilson [id number] Onychomycosis of toenail 06/04/2019 Lumbar spondylosis 12/20/2018 Degeneration of lumbar intervertebral disc 11/21/2018 Lumbar radiculopathy 11/21/2018 Myofascial pain 11/21/2018 Elevated sed rate 10/05/2018 Low ferritin 09/14/2018 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, without lo ng-term current use 07/07/2018 of insulin Bradycardia 06/15/2018 Weakness 06/15/2018 Dizziness 06/15/2018 Coronary artery disease involving [place] coronary martha ry of [place] heart 06/15/2018 without angina pectoris Essential hypertension [...] as of this encounter (statuses as of 03/13/2020) Immunizations Name Administration Dates Next Due Influenza [...] been in contact with No / Unsure 03/13/2020 1:38 PM CDT someone who was confirmed or suspected to have Coronavirus / COVID-19? documented as of this encounter Last Filed Vital Signs Vital Sign Reading Time Taken Comments Blood Pressure 156/87 03/13/2020 1:36 PM CDT Pulse 80 03/13/2020 1:36 PM CDT Temperature 36.8 C (98.3 F) 03/13/2020 1:36 PM CDT Respiratory Rate 20 03/13/2020 1:36 PM CDT Oxygen Saturation 98% 03/13/2020 1:36 PM CDT Inhaled Oxygen Concentration - - Weight 82.8 kg (182 lb 9.6 oz) 03/13/2020 1:36 PM CDT Height 172.7 cm (5' 8") 03/13/2020 1:36 PM CDT Body Mass Index 27.76 03/13/2020 1:36 PM CDT documented in this encounter Progress Notes Kaylie Mcneil FNP - 03/13/2020 1:30 PM CDT Visit Type: Clinic Note / History and Physical Referred by: established Chief Complaint: Prostate check HPI Nestor Gomez 80 year old male for PSA results and prostate check. He has He has a strong family history of prostate cancer: father- from prostate cancer, PGF and PU. He had a prostate tmomym73+ years ago which was negative per patient. He is taking finasteride but is not taking Flomax. Denies frequency, urgency, pain with urination. He left testicular pain for several years. The pain is constant. He had vasectomy and bilateral inguinal hernia repair 20+ years ago. He takes Tylenol occasionally which helps some. He had a sacroiliacjoint injection and left greater trochanteric bursa injection-did not help his pain. Dr. Whitt did bilateral lioinguinal nerve block Wednesday which has not helped. : Nestor Gomez is a 78 year old male with pmh below notable for DM, HTN, CAD s/p multiple PCI (most recent 06/2018), AFib on Brilinta (antiplatelet) who presents to clinic for 4 year hx of L testicular pain. Patient reports pain is constant, dull and localized to L testicle. He has not t ried anything to help with the pain. Denies any inciting event. He has hx of vasectomy >20 years ago as well as b/l inguinal hernia that have been repaired also >20 years ago. Also reports his urine smells foul. Patient also reports obstructive LUTS for which he had cystoscopy at OSH several years ago, On Finasteride since with partial response. Currently with obstructive and irritative symptoms, associated with occasional urgency incontinence BS PVR 74cc Exam today suggested left epidydimal cysts, Startted on flomax in addition to finasteride. Also given Cipro x 2weeks Histories Past Medical History: Diagnosis Date A-fib [...] Left 12/13/2019 Surgeon: Dayana Mariano MD; Location: [place] [facility] SPINE SURGERY STENT PLACEMENT (SHX) TROCHANTERIC STEROID INJECTION (SHX) Left 12/13/2019 Surgeon: Dayana Mariano MD; Location: [place] [facility] Family History Problem Relation Age of Onset Coronary Heart Disease Mother Colon Cancer Sister Social History Socioeconomic History Marital status: Spouse [...] file Gets together: Not on file Attends gnosticist service: Not on file Active member of [...] on file 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 Respiratory: Negative. Cardiovascular: Negative. Gastrointestinal: Positive for rectal pain. Genitourinary: Positive for testicular pain. Pelvic pain Musculoskeletal: Negative. Neurological: Positive for dizziness and light-headedness. Psychiatric/Behavioral: The patient is nervous/anxious. Physical Exam Exam conducted with a second rigger present (Vira Painting RN). Constitutional: Appearance: Normal appearance. He is normal weight. Genitourinary: Penis: Normal and uncircumcised. Scrotum/Testes: Right: Mass, tenderness or swelling not present. Left: Tenderness present. Mass or swelling not present. Epididymis: Right: Normal. Left: Normal. Comments: PAUL: prostate - 1+ enlarged, no nodules Skin: General: Skin is dry. Neurological: General: No focal deficit present. Mental Status: He is alert and oriented to person, place, and time. Mental status is at baseline. Psychiatric: Mood and Affect: Mood normal. Behavior: Behavior normal. Thought Content: Thought content normal. Judgment: Judgment normal. BP (!) 156/87 (BP Location: Right arm, Patient Position: Sitting, BP CUFF SIZE: Adult Large) | Pulse 80 | Temp 36.8 C (98.3 F) (Oral) | Resp 20 | Ht 5' 8" (1.727 m) | Wt 182 lb 9.6 oz (82.8 kg) | SpO2 98% | BMI 27.76 kg/m Laboratory Results for NESTOR GOMEZ ( ) as of 03/13/2020 15:22 Ref. Range 03/13/2020 14:15 POCT PH U Latest Ref Range: 5 - 8 mg/dl 5.0 POCT U SP GRAV Latest Ref Range: 1.005 - 1.025 mg/dl 1.020 POCT U GLU Latest Ref Range: Negative - Negative Negative POCT U BLD Latest Ref Range: Negative - Negative Negative POCT U KETONE Latest Ref Range: Negative - Negative Negative POCT U PROT Latest Ref Range: Negative - Negative Negative POCT U UROBILI Latest Ref Range: 0.2 - 1 mg/dl 0.2 POCT U BILI Latest Ref Range: Negative - Negative Negative POCT U NIT Latest Ref Range: Negative - Negative Negative POCT U LEUK EST Latest Ref Range: Negative - Negative Negative POCT U COLOR Unknown yellow POCT U APPEAR Unknown clear Results for NESTOR GOMEZ ( ) as of 03/13/2020 15:22 Ref. Range 08/09/2018 13:00 03/05/2020 15:11 PSA Latest Ref Range: <=4.00 ng/mL 0.99 0.75 Radiology No new Radiology Procedure Note None Assessment/Plan Nestor Gomez 80 year old male with left testicular pain, family history of prostate cancer Tylenol for orchalgia Will f/u with Dr. Whitt for another injection, if no relief will get scrotal US RTC after visit with Dr. Whitt Surgical Intervention Not applicable. This visit did not involve counseling and coordination that comprised more than 50% of the visit time. Kaylie Mcneil NP-C Bebe Isabel RN - 03/13/2020 1:30 PM Mya Genrty Gomez is a 80 year old male comes to clinic independent in ambulation for follow up. Pt comes alone . Pt in NAD w/ pain reported 0/10. Pt preferred language is Tongan. Pt. denies fall in last 12 months. Allergies and medications reviewed and updated. Pt to monitor BP at home if it remains elevated or he is to become symptomatic he is to contact his PCP or go directly to the ER documented in this encounter Plan of Treatment Date Type Specialty Care Team Description 04/02/2020 Office Visit Surgery Rita Whitt MD [address] [facility] [address] [place] [address] [phone] Health Maintenance Due Date Last Done Comments [...] Completed 07/26/2012 documented as of this encounter Procedures Procedure Name Priority Date/Time Associated Comments Diagnosis POCT URINALYSIS AUTO Routine 03/13/2020 2:15 PM Scrotal pain Results for this CDT procedure are i n the results section. documented in this encounter Results POCT URINALYSIS, INSTRUMENT (03/13/2020 2:15 PM CDT) Pathologist Sig nature POCT U SP GRAV 1.020 1.005 - 1.025 mg/dl POCT PH U 5.0 5 - 8 mg/dl POCT U LEUK EST Negative Negative - Negative POCT U NIT Negative Negative - Negative POCT U PROT Negative Negative - Negative POCT U GLU Negative Negative - Negative POCT U KETONE Negative Negative - Negative POCT U UROBILI 0.2 0.2 - 1 mg/dl POCT U BILI Negative Negative - Negative POCT U BLD Negative Negative - Negative POCT U COLOR yellow POCT U APPEAR clear Specimen Urine - URINE, CLEAN CATCH documented in this encounter Visit Diagnoses Diagnosis Scrotal pain - Primary Unspecified disorder of male genital org ans Orchalgia Unspecified disorder of male genital org ans Family history of prostate cancer in fat her documented in this encounter Insurance Payer Benefit Plan Subscriber ID Effective Phone Address Typ e / Group Dates MEDICARE MEDICARE PART [id number] 2004-[place] [phone] [address] X Medicare A & B nt 82 [id number] [place] [id number] NEW ERA LIFE [employer] LIFE [id number] 2016-[place] ent documented as of this encounter
--- OUTSIDE RECORDS SUMMARY | 2020-04-01 17:32 | XMS REPORT | Summary of Care ---
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 Orchalgia; [facility] [address] [facility] [address] [facility] Family history of prostate c ancer in father [address] [place] [phone] [place] [address] Allergies Active Allergy Reactions Severity Noted Date Comments Canagliflozin Other - See comments 01/18/2017 Genita l mycotic infections Codeine Rash 06/15/2018 Ovmcobz-Gcg-Dqa Other - See comments 08/07/2019 Gail odom [...] MOUTH EVERY DAY Coronary artery disease involving [place] coronary artery of [place] heart without angina pectoris PAROXETINE 20 mg [...] Added automatically from request for santo denilson [id number] SI (sacroiliac) joint dysfunction 11/28/2019 Overview: Added automatically from request for santo denilson [id number] Onychomycosis of toenail 06/04/2019 Lumbar spondylosis 12/20/2018 Degeneration of lumbar intervertebral disc 11/21/2018 Lumbar radiculopathy 11/21/2018 Myofascial pain 11/21/2018 Elevated sed rate 10/05/2018 Low ferritin 09/14/2018 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, without lo ng-term current use 07/07/2018 of insulin Bradycardia 06/15/2018 Weakness 06/15/2018 Dizziness 06/15/2018 Coronary artery disease involving [place] coronary martha ry of [place] heart 06/15/2018 without angina pectoris Essential hypertension [...] PGF and PU. He had a prostate piubzk52+ years ago which was negative per patient. 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 Respiratory: Negative. Cardiovascular: Negative. Gastrointestinal: Positive for rectal pain. Genitourinary: Positive for testicular pain. Pelvic pain Musculoskeletal: Negative. Neurological: Positive for dizziness and light-headedness. Psychiatric/Behavioral: The patient is nervous/anxious. Physical Exam Exam conducted with a clay carman present (Vira Painting RN). Constitutional: Appearance: Normal [...] Isabel RN - 03/13/2020 1:30 PM Mya Gentry Gomez is a 80 year old male comes to clinic independent in ambulation for follow up. Pt comes alone . Pt in NAD w/ pain reported 0/10. Pt preferred language is Cypriot. Pt. denies fall in last 12 months. Allergies and medications reviewed and updated. Pt to monitor BP at home if it remains elevated or he is to become symptomatic he is to contact his PCP or go directly to the ER documented in this encounter Plan of Treatment Date Type Specialty Care Team Description 04/02/2020 Office Visit Surgery Rita Whitt MD [address] [facility] [address] [place] [address] [phone] Health Maintenance Due Date Last Done Comments [...] e / Group Dates MEDICARE MEDICARE PART [id number] 2004-[place] [phone] [address] [place] X Medicare A & B nt 82 [id number] [place] [id number] NEW [employer] LIFE [employer] LIFE [id number] 2016-[place] ent documented as of this encounter
--- OUTSIDE RECORDS SUMMARY | 2020-04-01 17:32 | XMS REPORT | Summary of Care ---
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 [facility] Nora Whitt MD [address] [facility] [address] [place] [address] Benign prostatic Professional Office 2, Adc Lab hyperplasia, Building Phlebotomy unspecif ied whether Lab lower urinary tract Professional Office symptoms present Building [address] [place] [address] , [address] [place] [address] Allergies Active Allergy Reactions Severity Noted Date Comments Canagliflozin Other - See comments 01/18/2017 Genita l mycotic infections Codeine Rash 06/15/2018 Nipggaw-Iwl-Mls Other - See comments 08/07/2019 Gail odom [...] MOUTH EVERY DAY Coronary artery disease involving [place] coronary artery of [place] heart without angina pectoris PAROXETINE 20 mg [...] Added automatically from request for santo denilson [id number] SI (sacroiliac) joint dysfunction 11/28/2019 Overview: Added automatically from request for santo denilson [id number] Onychomycosis of toenail 06/04/2019 Lumbar spondylosis 12/20/2018 Degeneration of lumbar intervertebral disc 11/21/2018 Lumbar radiculopathy 11/21/2018 Myofascial pain 11/21/2018 Elevated sed rate 10/05/2018 Low ferritin 09/14/2018 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, without lo ng-term current use 07/07/2018 of insulin Bradycardia 06/15/2018 Weakness 06/15/2018 Dizziness 06/15/2018 Coronary artery disease involving [place] coronary martha ry of [place] heart 06/15/2018 without angina pectoris Essential hypertension [...] Signs Not on filedocumented in this encounter Nursing Notes Gabriella Marcos - 03/05/2020 3:15 PM CDT Venipuncture collection performed by clean technique on the right anticubitus. Total of 1 attempts were made. Slight pressure and a bandage/dressing were applied to the site(s). The patient experiencedno complications. The following specimens were processed according to instructions and sent to [facility] laboratories per lab order on 03/05/20: LT BLUE SST 1 RED LAV PPT DK GREEN (LiHep) DK GREEN (SodH) CHATTERJEE DK BLUE (K2) DK BLUE (S) ACD Blood Culture NIPT/NTD documented in this encounter Plan of Treatment Date Type Specialty Care Team Description 03/13/2020 Office Visit Urology Kaylie Mcneil, [place] [address] [facility] [address] [place], [place] [address] 04/02/2020 Office Visit Surgery Rita Whitt MD [address] [facility] [address] [place], [place] [id number] Health Maintenance Due Date Last Done Comments [...] e / Group Dates MEDICARE MEDICARE PART [id number] 2004-[place] [phone] P[address] TRIXIE X Medicare A & B nt 82 [id number] [place] [id number] NEW ERA LIFE NEW [employer] LIFE [id number] [place] [id number] documented as of this encounter
--- OUTSIDE RECORDS SUMMARY | 2020-04-01 17:33 | XMS REPORT | Summary of Care ---
:1940 Author Organization [facility] - [facility] Address [address] [place] [address] Care Team Providers Name Role Phone Cyn Loja MD Primary Care Provider Encounter Details Date Type Department Care Team Description 03/01/2020 Orders Only [facility] Doctor Unassigned, No [address] [facility] [place] [address] [address] [place] [address] Allergies Active Allergy Reactions Severity Noted Date Comments Canagliflozin Other - See comments 01/18/2017 Genita l mycotic infections Codeine Rash 06/15/2018 Ogyyxdz-Zkg-Lbx Other - See comments 08/07/2019 Gail re myalgia Reductase Inhibitors documented as of this encounter (statuses as of 03/18/2020) Medications Medication Sig Dispensed Refills Start Date [...] MOUTH EVERY DAY Coronary artery disease involving [place] coronary artery of [place] heart without angina pectoris PAROXETINE 20 mg TAKE 1 TABLET BY 90 tablet 2 01/05/2020 Active tabletIndications: MOUTH DAILY. Anxiety REPLACES ESCITALOPRAM LISINOPRIL 20 mg TAKE 1 TABLET BY 90 tablet 0 01/16/2020 Active tabletIndications: MOUTH EVERY DAY Essential hypertension documented as of this encounter (statuses as of 03/18/2020) Active Problems Problem Noted Date Greater trochanteric bursitis of left hip 11/28/2019 Overview: Added automatically from request for santo denilson [id number] SI (sacroiliac) joint dysfunction 11/28/2019 Overview: Added automatically from request for santo denilson [id number] Onychomycosis of toenail 06/04/2019 Lumbar spondylosis 12/20/2018 Degeneration of lumbar intervertebral disc 11/21/2018 Lumbar radiculopathy 11/21/2018 Myofascial pain 11/21/2018 Elevated sed rate 10/05/2018 Low ferritin 09/14/2018 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, without lo ng-term current use 07/07/2018 of insulin Bradycardia 06/15/2018 Weakness 06/15/2018 Dizziness 06/15/2018 Coronary artery disease involving [place] coronary martha ry of [place] heart 06/15/2018 without angina pectoris Essential hypertension [...] as of this encounter (statuses as of 03/18/2020) Immunizations Name Administration Dates Next Due Influenza [...] Office Visit Surgery Rita Whitt MD [address] [facility] [address] [place] [address] [phone] Health Maintenance Due Date Last Done Comments [...] Procedures Procedure Name Priority Date/Time Associated Diagnosis Comme nts AUTHORIZATION FOR RELEASE Routine 03/01/2020 12:01 AM OF PHI CDT documented in this encounter Results Not on filedocumented in this encounter Insurance Payer Benefit Plan Subscriber ID Effective Phone Address Typ e / Group Dates MEDICARE MEDICARE PART [id number] 2004-e [phone] [address] TRI[place]IE X Medicare A & B nt 82 [id number] [place] [id number] NEW [employer] LIFE [employer] LIFE [id number] 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
--- OUTSIDE RECORDS SUMMARY | 2020-04-01 17:33 | XMS REPORT | Summary of Care ---
:1940 Author Organization [facility] Address [address] [place] [address] Care Team Providers Name Role Phone Cyn Loja MD Primary Care Provider Reason for Referral (Routine) Status Reason Specialty Diagnoses / Referred By Referred To Procedures Contact Contact Pending Location Dermatology Diagnoses Rash Nicole Campo Review Preference Procedures CONSULT/REFERRAL DERMATOLOGY [place] [address] [place] [phone] Reason for Visit Reason Comments Rash reports itching spells for t he past couple of weeks unreleived with OTC remedies Encounter Details Date Type Department Care Team Description 03/21/2020 Urgent Care [facility] Family Shayna Campo PA [address] [place] [phone] Rash (Primary Dx); Medicine - [place] Provider, [facility] Xeroderma [address] [place] [phone] Allergies Active Allergy Reactions Severity Noted Date Comments Canagliflozin Other - See comments 01/18/2017 Genita l mycotic infections Codeine Rash 06/15/2018 [id number] Other - See comments 08/07/2019 Gail re myalgia Reductase Inhibitors documented as of this encounter (statuses as of 03/21/2020) Medications Medication Sig Dispensed Refills Start Date [...] MOUTH EVERY DAY Coronary artery disease involving [place] coronary artery of [place] heart without angina pectoris PAROXETINE 20 mg TAKE 1 TABLET BY 90 tablet 2 01/05/2020 Active tabletIndications: MOUTH DAILY. Anxiety REPLACES ESCITALOPRAM LISINOPRIL 20 mg TAKE 1 TABLET BY 90 tablet 0 01/16/2020 Active tabletIndications: MOUTH EVERY DAY Essential hypertension triamcinolone Apply to area(s) 60 g 0 03/21/2020 Active acetonide 0.1 % 2 (two) times creamIndications: daily. Rash ammonium lactate 12 % Apply to area(s) 140 g 0 03/21/2020 Active creamIndications: as needed (dry Xeroderma skin). documented as of this encounter (statuses as of 03/21/2020) Active Problems Problem Noted Date Greater trochanteric bursitis of left hip 11/28/2019 Overview: Added automatically from request for santo denilson [id number] SI (sacroiliac) joint dysfunction 11/28/2019 Overview: Added automatically from request for santo denilson [id number] Onychomycosis of toenail 06/04/2019 Lumbar spondylosis 12/20/2018 Degeneration of lumbar intervertebral disc 11/21/2018 Lumbar radiculopathy 11/21/2018 Myofascial pain 11/21/2018 Elevated sed rate 10/05/2018 Low ferritin 09/14/2018 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, without lo ng-term current use 07/07/2018 of insulin Bradycardia 06/15/2018 Weakness 06/15/2018 Dizziness 06/15/2018 Coronary artery disease involving [place] coronary martha ry of [place] heart 06/15/2018 without angina pectoris Essential hypertension [...] as of this encounter (statuses as of 03/21/2020) Immunizations Name Administration Dates Next Due Influenza [...] been in contact with No / Unsure 03/21/2020 1:21 PM CDT someone who was confirmed or suspected to have Coronavirus / COVID-19? documented as of this encounter Last Filed Vital Signs Vital Sign Reading Time Taken Comments Blood Pressure 132/74 03/21/2020 1:22 PM CDT Pulse 60 03/21/2020 1:22 PM CDT Temperature 36.6 C (97.9 F) 03/21/2020 1:22 PM CDT Respiratory Rate 18 03/21/2020 1:22 PM CDT Oxygen Saturation 97% 03/21/2020 1:22 PM CDT Inhaled Oxygen Concentration - - Weight 82.7 kg (182 lb 6.4 oz) 03/21/2020 1:22 PM CDT Height 177.8 cm (5' 10") 03/21/2020 1:22 PM CDT Body Mass Index 26.17 03/21/2020 1:22 PM CDT documented in this encounter Progress Notes Nicole Campo PA - 03/21/2020 1:20 PM CDT Cc: Chief Complaint Patient presents with Rash reports itching spells for the past couple of weeks unreleived with OTC remedies Dave Moreland is a 80 year old male. Patient presents for chronic rash > 2 years. He has seen other providers including derm in the past and given topical cream, possibly steroid, that resolved. Reports having intermittent flare-ups since. Rash Location: back, neck. Quality: itchiness and redness Quality comment: + small papules Duration: 2 years. Timing: Constant Progression: Unchanged Chronicity: New Context: exposure to similar rash Context: not animal contact, not chemical exposure, not diapers, not eggs, not food, not hot tub use, not insect bite/sting, not medications, not new detergent/soap, not nuts, not plant contact, not pollen, not , not sick contacts and not sun exposure Worsened by: Nothing Ineffective treatments: Anti-itch cream Associated symptoms: no abdominal pain, no diarrhea, no fatigue, no fever, no headaches, no hoarse voice, no induration, no joint pain, no myalgias, no nausea, no periorbital edema, no shortness of breath, no sore throat, no throat swelling, no tongue swelling, no URI, not vomiting and not wheezing Allergies Dave is allergic to canagliflozin; codeine; and dmioeuc-mrp-gui reductase inhibitors. 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 HENT: Negative for congestion, ear pain, facial swelling, hoarse voice, postnasal drip, rhinorrhea, sinus pressure, sneezing, sore throat, trouble swallowing and voice change. Eyes: Negative for pain, discharge, redness and itching. Respiratory: Negative for apnea, cough, choking, chest tightness, shortness of breath, wheezing and stridor. Cardiovascular: Negative for chest pain, palpitations and leg swelling. Gastrointestinal: Negative for abdominal pain, diarrhea, nausea and vomiting. Musculoskeletal: Negative for arthralgias, back pain, gait problem, joint swelling and myalgias. Skin: Positive for rash. Negative for color change, pallor and wound. Neurological: Negative for headaches. Vital Signs BP 132/74 | Pulse 60 | Temp 36.6 C (97.9 F) (Oral) | Resp 18 | Ht 5' 10" (1.778 m) | Wt 182lb 6.4 oz (82.7 kg) | SpO2 97% | BMI 26.17 kg/m Physical Exam Vitals signs and nursing note reviewed. Constitutional: General: He is not in acute distress. Appearance: He is well-developed. He is not ill-appearing, toxic-appearing or diaphoretic. HENT: Head: Normocephalic and atraumatic. Right Ear: Tympanic membrane, ear canal and external ear normal. Left Ear: Tympanic membrane, ear canal and external ear normal. Nose: Nose normal. Mouth/Throat: Mouth: Mucous membranes are moist. Pharynx: Oropharynx is clear. Eyes: Conjunctiva/sclera: Conjunctivae normal. Neck: Musculoskeletal: Neck supple. Cardiovascular: Rate and Rhythm: Normal rate and regular rhythm. Heart sounds: Normal heart sounds. Pulmonary: Effort: Pulmonary effort is normal. Breath sounds: Normal breath sounds. Abdominal: General: Bowel sounds are normal. There is no distension. Palpations: Abdomen is soft. Tenderness: There is no abdominal tenderness. Musculoskeletal: Normal range of motion. Lymphadenopathy: Cervical: No cervical adenopathy. Skin: General: Skin is warm and dry. Findings: Rash present. Rash is papular (+small pink papules on back and posterior neck. No pustules, vesicles, ulcers. No swelling, warmth, tenderness, induration, drainage. No burrows. No interdigital lesions). Neurological: Mental Status: He is alert and oriented to person, place, and time. Psychiatric: Behavior: Behavior normal. Assessment/Plan Rash (primary encounter diagnosis) Plan: triamcinolone acetonide 0.1 % cream, CONSULT/REFERRAL DERMATOLOGY Chronic rash > 2 years. Suspect atopic dermatitis. Will start on triamcinolone. Instructed on proper use. Given duration of rash, recommend derm evaluation. Recommend the following at home care: Start triamcinolone cream BID as directed. Recommend thin layer for the shortest duration possible. Take OTC claritin w/o D as needed Keep clean Avoid hot showers, recommend warm Use unscented, sensitive skin soap such as dove. Avoid scratching Wash clothes/sheets/towels Keep moisturized Oatmeal baths Xeroderma Plan: ammonium lactate 12 % cream Avoid hot showers, recommend warm Apply ammonium lactate cream 1-2 times daily as needed, after shower. Pt ed/precautions given in detail regarding conditions/medicaitons. Er precautions given. Pt reportsunderstanding and agrees. rtc if s/s worsen or do not improve ; Plan of care, desired health behaviors, goals, Ddx, & any prescribed or OTC medications discussed with patient. Education resources & self management tools provided and reviewed with AVS. Patient/guardian/family verbalized understanding & agrees to plan of care. Barriers to care: NONE Ability to manage care: Good This visit did not involve counseling and coordination that comprised more than 50% of the visit time. Viola Bryant RN - 03/21/2020 1:20 PM CDT Dave Moreland is a 80 year old male present to for Chief Complaint Patient presents with Rash reports itching spells for the past couple of weeks unreleived with OTC remedies Patient in no distress no rash noted but reports itching to torso and ankles documented in this encounter Plan of Treatment Date Type Specialty Care Team Description 04/02/2020 Office Visit Surgery Rita Whitt MD [address] [facility] [address] [place] [address] [phone] Health Maintenance Due Date Last Done Comments [...] filedocumented in this encounter Visit Diagnoses Diagnosis Rash - Primary Rash and other nonspecific skin eruption 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 [address] Medicare A & B nt 82 [id number] [place] [phone] NEW ERA LIFE [employer] ERA LIFE [id number] 2016- Indemnity ent documented as of this encounter
--- OUTSIDE RECORDS SUMMARY | 2020-04-01 17:33 | XMS REPORT | Summary of Care ---
:1940 Author Organization [facility] Address [address] [place] [address] Care Team Providers Name Role Phone Cyn Loja MD Primary Care Provider Reason for Visit Reason Comments Refill Request Encounter Details Date Type Department Care Team Description 03/27/2020 Refill [facility] Family Medicine Aria Park MD Refill Request - [address] [place] [address] [place] [address] [phone] Allergies Active Allergy Reactions Severity Noted Date Comments Canagliflozin Other - See comments 01/18/2017 Genita l mycotic infections Codeine Rash 06/15/2018 [id number] Other - See comments 08/07/2019 Gail re myalgia Reductase Inhibitors documented as of this encounter (statuses as of 04/01/2020) Medications Medication Sig Dispensed Refills Start Date [...] MOUTH EVERY DAY Coronary artery disease involving [place] coronary artery of [place] heart without angina pectoris PAROXETINE 20 mg [...] as of this encounter (statuses as of 04/01/2020) Active Problems Problem Noted Date Greater trochanteric bursitis of left hip 11/28/2019 Overview: Added automatically from request for santo denilson [id number] SI (sacroiliac) joint dysfunction 11/28/2019 Overview: Added automatically from request for santo denilson [id number] Onychomycosis of toenail 06/04/2019 Lumbar spondylosis 12/20/2018 Degeneration of lumbar intervertebral disc 11/21/2018 Lumbar radiculopathy 11/21/2018 Myofascial pain 11/21/2018 Elevated sed rate 10/05/2018 Low ferritin 09/14/2018 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, without lo ng-term current use 07/07/2018 of insulin Bradycardia 06/15/2018 Weakness 06/15/2018 Dizziness 06/15/2018 Coronary artery disease involving [place] coronary martha ry of [place] heart 06/15/2018 without angina pectoris Essential hypertension [...] as of this encounter (statuses as of 04/01/2020) Immunizations Name Administration Dates Next Due Influenza [...] this encounter Miscellaneous Notes Telephone Encounter - Marlena Mcintosh MA - 04/01/2020 9:55 AM CDTPlease review and sign if appropriate. documented in this encounter Plan of Treatment Date Type Specialty Care Team Description 04/02/2020 Office Visit Surgery Rita Whitt MD [address] [facility] [address] [place], [place] [address] Health Maintenance Due Date Last Done Comments [...] in this encounter Visit Diagnoses Diagnosis Anxiety and depression Dysthymic disorder documented in this encounter Insurance Payer Benefit Plan Subscriber ID Effective Phone Address Typ e / Group Dates MEDICARE MEDICARE PART [id number] 2004-[place] [phone] [address] X Medicare A & B nt 82 [id number] [place] [id number] NEW ERA LIFE [employer] LIFE [id number] 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
--- OUTSIDE RECORDS SUMMARY | 2020-04-01 17:33 | XMS REPORT | Summary of Care ---
:1940 Author Organization [facility] - [facility] Address [address] [place] [address] Care Team Providers Name Role Phone Cyn Loja MD Primary Care Provider Reason for Visit Reason Comments Rx Concern/Question Encounter Details Date Type Department Care Team Description 03/27/2020 Telephone [facility] Family Aria Loja R x Concern/Question Medicine - [place]is FOX [address] [place] [address] Dr osborne [address] [place] [address] [place] [address] [place] [phone] Allergies Active Allergy Reactions Severity Noted Date Comments Canagliflozin Other - See comments 01/18/2017 Genita l mycotic infections Codeine Rash 06/15/2018 [id number] Other - See comments 08/07/2019 Gail re myalgia Reductase Inhibitors documented as of this encounter (statuses as of 03/29/2020) Medications Medication Sig Dispensed Refills Start Date [...] MOUTH EVERY DAY Coronary artery disease involving [place] coronary artery of [place] heart without angina pectoris PAROXETINE 20 mg [...] as of this encounter (statuses as of 03/29/2020) Active Problems Problem Noted Date Greater trochanteric bursitis of left hip 11/28/2019 Overview: Added automatically from request for santo denilson [id number] SI (sacroiliac) joint dysfunction 11/28/2019 Overview: Added automatically from request for santo denilson [id number] Onychomycosis of toenail 06/04/2019 Lumbar spondylosis 12/20/2018 Degeneration of lumbar intervertebral disc 11/21/2018 Lumbar radiculopathy 11/21/2018 Myofascial pain 11/21/2018 Elevated sed rate 10/05/2018 Low ferritin 09/14/2018 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, without lo ng-term current use 07/07/2018 of insulin Bradycardia 06/15/2018 Weakness 06/15/2018 Dizziness 06/15/2018 Coronary artery disease involving [place] coronary martha ry of [place] heart 06/15/2018 without angina pectoris Essential hypertension [...] as of this encounter (statuses as of 03/29/2020) Immunizations Name Administration Dates Next Due Influenza [...] this encounter Miscellaneous Notes Telephone Encounter - Lilia Allen A - 03/29/2020 4:15 PM CDTAttempted to contact patient, left message on voicemail notifying patient will need to make an appointment. Telephone Encounter - AllenLilia A - 03/28/2020 10:38 AM CDTAttempted to contact patient, left message on voicemail to call and make appointment, this medication has been discontinued elephone Encounter - Faiza Santiago - 03/27/2020 12:59 PM CDTSpouse is requesting a refill for escitalopram 10 tablet. I do not see it in the computer to refill. documented in this encounter Plan of Treatment Date Type Specialty Care Team Description 04/02/2020 Office Visit Surgery Rita Whitt MD [address] [facility] [address] [place] [address] [phone] Health Maintenance Due Date Last Done Comments [...] e / Group Dates MEDICARE MEDICARE PART [id number] 2004-[place] [phone] [address] [place] X Medicare A & B nt 82 [id number] [place] [id number] [employer] LIFE [employer] LIFE [id number] 2016- Indemnity ent documented as of this encounter
--- OUTSIDE RECORDS SUMMARY | 2020-04-01 17:34 | XMS REPORT | Summary of Care ---
:1940 Author Organization [facility] - [facility] Address [address] [place] [address] Care Team Providers Name Role Phone Cyn Loja MD Primary Care Provider Reason for Visit Reason Comments Refill Request Encounter Details Date Type Department Care Team Description 03/30/2020 Refill [facility] Family Medicine Tona velasquez, [place] Alfonso Refill Request - [address] [place] [address] [place] [address] [place] [address] [phone] Allergies Active Allergy Reactions Severity Noted Date Comments Canagliflozin Other - See comments 01/18/2017 Genita l mycotic infections Codeine Rash 06/15/2018 Budpcmh-Lxa-Tai Other - See comments 08/07/2019 Gail re [...] MOUTH EVERY DAY Coronary artery disease involving [place] coronary artery of [place] heart without angina pectoris PAROXETINE 20 mg [...] Added automatically from request for santo denilson [id number] SI (sacroiliac) joint dysfunction 11/28/2019 Overview: Added automatically from request for santo denilson [id number] Onychomycosis of toenail 06/04/2019 Lumbar spondylosis 12/20/2018 Degeneration of lumbar intervertebral disc 11/21/2018 Lumbar radiculopathy 11/21/2018 Myofascial pain 11/21/2018 Elevated sed rate 10/05/2018 Low ferritin 09/14/2018 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, without lo ng-term current use 07/07/2018 of insulin Bradycardia 06/15/2018 Weakness 06/15/2018 Dizziness 06/15/2018 Coronary artery disease involving [place] coronary martha ry of [place] heart 06/15/2018 without angina pectoris Essential hypertension [...] Office Visit Surgery Rita Whitt MD [address] [facility] [address] [place] [address] [phone] Health Maintenance Due Date Last Done Comments [...] filedocumented in this encounter Visit Diagnoses Diagnosis 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 [place] X Medicare A & B nt 82 [id number] [place] [id number] [employer] LIFE [id number] 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
[2020-04-01 18:36] LABS: Absolute Lymphocytes (CBC) 1.4 K/uL (0.7-4.9); Basophils % 0.8 % (0-1.3); Hematocrit 41.1 % (39.6-49.0); Lymphocytes % 14.7 % (15.3-44.8); MPV 9.1 fL (7.6-11.3); RBC Red Blood Cell Count 4.44 M/uL (4.33-5.43)
[2020-04-01 18:37] LABS: Protime INR 0.95
--- NOTE | 2020-04-01 18:46 | RAD REPORT ---
EXAM DESCRIPTION: RAD - Chest Single View - 04/01/2020 6:21 pm CLINICAL HISTORY: DYSPNEA Chest pain. COMPARISON: Chest Single View dated 08/05/2019; Chest Single View dated 06/16/2019; Chest Single View dated 01/20/2019 FINDINGS: Portable technique limits examination quality. The lungs are grossly clear. The heart is upper limit of normal in size. No displaced fractures. IMPRESSION: No acute intrathoracic process suspected.
[2020-04-01 18:55] LABS: ALT/SGPT 29 U/L (12-78); AST/SGOT 13 U/L (15-37); Albumin 3.7 g/dL (3.4-5.0); Alkaline Phosphatase 69 U/L (45-117); BUN Blood Urea Nitrogen 19 mg/dL (7-18); Bicarbonate 22 mmol/L (21-32); Bilirubin Direct < 0.1 mg/dL (0-0.2); Bilirubin Total 0.3 mg/dL (0.2-1.0); Glucose Level 303 mg/dL (74-106); Magnesium 2.2 mg/dL (1.8-2.4); NT PRO-BNP 126 pg/mL (<450); Potassium 3.7 mmol/L (3.5-5.1); Sodium Level 140 mmol/L (136-145); Troponin (Emerg Dept Use Only) < 0.02 ng/mL (0.0-0.045)
--- NOTE | 2020-04-01 19:39 | RAD REPORT ---
EXAM DESCRIPTION: CT - Head Brain Wo Cont - 04/01/2020 7:29 pm CLINICAL HISTORY: DIZZINESS Headache, drowsiness COMPARISON: No comparisons TECHNIQUE: All CT scans are performed using dose optimization technique as appropriate and may inclu de automated exposure control or mA/KV adjustment according to patient size. FINDINGS: No intracranial hemorrhage, hydrocephalus or extra-axial fluid collection.Mild generalized brain atrophy is present with mild periventricular and deep white matter chronic microvascular ische elena changes.No areas of brain edema or evidence of midline shift. The paranasal sinuses and mastoids are clear. The calvarium is intact. IMPRESSION: No acute intracranial abnormality.
--- NOTE | 2020-04-01 19:42 | RAD REPORT ---
EXAM DESCRIPTION: CTAbdomen Pelvis W Contrast - 04/01/2020 7:29 pm CLINICAL HISTORY: Abdominal pain. ABD PAIN COMPARISON: Abdomen Pelvis W Contrast dated 08/05/2019; Abdomen Pelvis W Contrast dated 9; Abdomen Pelvis W Contrast dated 01/20/2019; Abdomen Pelvis W Contrast dated 01/11/2019 TECHNIQUE: Biphasic CT imaging of the abdomen and pelvis was performed with 100 ml non-ionic IV cont rast. All CT scans are performed using dose optimization technique as appropriate and may include automated exposure control or mA/KV adjustment according to patient size. FINDINGS: The lung bases are clear. The liver demonstrates mild diffuse fatty infiltration. Cholecystectomy. Spleen, pancreas, adrenal gl ands and left kidney are within normal limits. Right kidney is in the pelvis region. No bowel obstruction, free air, free fluid or abscess. The appendix is normal. No evidence of signi ficant lymphadenopathy. The prostate gland is mildly enlarged. Mild lumbosacral degenerative changes. IMPRESSION: No acute intra-abdominal or pelvic finding.
[2020-04-01] MEDS ORDERED: NA CHLORIDE 0.9% 1,000 ML ONE (19:59)
[2020-04-01 21:13] LABS: Urine Blood NEGATIVE (NEG); Urine Glucose 2+ (NEG); Urine Protein NEGATIVE (NEG); Urine Specific Gravity 1.015 (1.005-1.030); Urine pH 5.5 (5.0-7.0)
--- NOTE | 2020-04-01 21:16 | ER ---
Nurse's Notes [facility] Name: Dave Moreland Age: 80 yrs Sex: Male : 1940 Arrival Date: 04/01/2020 Time: 17:29 Bed 8 Private MD: Diagnosis: Dehydration Presentation: 04/01 17:39 Chief complaint: Spouse and/or significant other states: Dizziness off and on but has ca1 gotten for the last 2 days. He has been staggering when he walks, does not drink a whole lot of water. He has had this before and he is probably just dehydrated. Coronavirus screen: Client denies travel out of the [place] in the last 14 days. At this time, the client does not indicate any symptoms associated with coronavirus-19. The client reports previous COVID testing was negative. Date of collection: February 2020. Ebola Screen: Patient negative for fever greater than or equal to 101.5 degrees Fahrenheit, and additional compatible Ebola Virus Disease symptoms Patient denies exposure to infectious person. Patient denies travel to an Ebola-affected area in the 21 days before illness onset. No symptoms or risks identified at this time. Initial Sepsis Screen: Does the patient meet any 2 criteria? No. Patient's initial sepsis screen is negative. Does the patient have a suspected source of infection? No. Patient's initial sepsis screen is negative. Risk Assessment: Do you want to hurt yourself or someone else? Patient reports no desire to harm self or others. Onset of symptoms was April 01, 2020. 17:39 Method Of Arrival: Wheelchair ca1 17:39 Acuity: CLARK 3 ca1 17:42 Chief complaint: Patient states: LUQ x 1 week. ca1 Historical: - Allergies: 17:44 Codeine; ca1 - Home Meds: 17:44 aspirin 81 mg Oral chew 1 tab once daily [Active]; metformin 500 mg Oral tab 1 tab ca1 daily [Active]; lisinopril 20 mg Oral tab 1 tab once daily [Active]; pantoprazole 40 mg Oral TbEC 1 tab once daily [Active]; finasteride 5 mg Oral tab 1 tab once daily [Active]; escitalopram oxalate 10 mg Oral tab 1 tab once daily [Active]; - PMHx: 17:44 Diabetes - NIDDM; GERD; Hyperlipidemia; Hypertension; Myocardial infarction; prostate ca1 problems; - PSHx: 17:44 8 stents; Cholecystectomy; ca1 - Immunization history:: Adult Immunizations up to date, Pneumococcal vaccine is up to date, Flu vaccine is up to date. - Social history:: Smoking status: Patient denies any tobacco usage or history of. Screenin:01 Abuse screen: Denies threats or abuse. Nutritional screening: No deficits noted. tw2 Tuberculosis screening: No symptoms or risk factors identified. Fall Risk Secondary diagnosis (15 points) impaired mobility. Assessment: 18:06 General: Appears in no apparent distress. well groomed, Behavior is calm, cooperative, tw2 appropriate for age. Pain: Denies pain. Neuro: Level of Consciousness is awake, alert, obeys commands, Oriented to person, place, time, situation. Neuro: Reports dizziness, with all this water stuff I know I am not drinking enough water. Cardiovascular: Heart tones S1 S2 Patient's skin is warm and dry. Respiratory: Airway is patent Respiratory effort is even, unlabored, Respiratory pattern is regular, symmetrical, Breath sounds are clear bilaterally. GI: No signs and/or symptoms were reported involving the gastrointestinal system. Abdomen is round non-distended, obese, Bowel sounds present X 4 quads. : No signs and/or symptoms were reported regarding the genitourinary system. EENT: No signs and/or symptoms were reported regarding the EENT system. Derm: No signs and/or symptoms reported regarding the dermatologic system. Skin is dry, Skin is pink, warm \T\ dry. Skin temperature is warm. Musculoskeletal: Range of motion: intact in all extremities. 18:26 Reassessment: provider HONG Arredondo at bedside at this time. tw2 18:59 Reassessment: Patient appears in no apparent distress at this time. No changes from tw2 previously documented assessment. Patient and/or family updated on plan of care and expected duration. Pain level reassessed. Patient is alert, oriented x 3, equal unlabored respirations, skin warm/dry/pink. 19:05 Reassessment: Patient appears in no apparent distress at this time. Patient and/or jb4 family updated on plan of care and expected duration. Pain level reassessed. Patient is alert, oriented x 3, equal unlabored respirations, skin warm/dry/pink. 20:05 Reassessment: Patient appears in no apparent distress at this time. Patient and/or jb4 family updated on plan of care and expected duration. Pain level reassessed. Patient is alert, oriented x 3, equal unlabored respirations, skin warm/dry/pink. 21:26 Reassessment: Patient appears in no apparent distress at this time. Patient and/or jb4 family updated on plan of care and expected duration. Pain level reassessed. Patient is alert, oriented x 3, equal unlabored respirations, skin warm/dry/pink. Vital Signs: 17:39 BP 142 / 67; Pulse 73; Resp 18 S; Temp 98.8(TE); Pulse Ox 97% on R/A; Weight 81.65 kg ca1 (R); Height 5 ft. 10 in. (177.80 cm) (R); Pain 0/10; 18:58 BP 143 / 71; Pulse 70; Resp 20; Pulse Ox 97% on R/A; tw2 20:00 BP 132 / 61; Pulse 67; Resp 19; Pulse Ox 98% on R/A; jb4 21:00 BP 154 / 76; Pulse 57; Resp 16; Pulse Ox 100% on R/A; jb4 17:39 Body Mass Index 25.83 (81.65 kg, 177.80 cm) ca1 ED Course: 17:29 Patient arrived in ED. ag5 17:41 Triage completed. ca1 17:44 Arm band placed on right wrist. ca1 17:55 Aramis Hilario PA is PHCP. jr8 17:55 Jalil Silva MD is Attending Physician. jr8 18:00 Kathy Simmons RN is Primary Nurse. tw2 18:01 Placed in gown. Bed in low position. Call light in reach. submarine operator on. Pulse ox tw2 on. NIBP on. 18:22 XRAY Chest (1 view) In Process Unspecified. EDMS 18:29 Initial lab(s) drawn, by me, sent to lab. EKG done, by ED staff, reviewed by Aramis PITTS. Inserted saline lock: 20 gauge in right forearm, using aseptic technique. Blood collected. 18:59 Report given to EVETTE Headley and EVETTE Mcdermott. tw2 19:29 CT Head Brain wo Cont In Process Unspecified. EDMS 19:30 CT Abd/Pelvis - IV Contrast Only In Process Unspecified. EDMS 21:27 No provider procedures requiring assistance completed. IV discontinued, intact, jb4 bleeding controlled, No redness/swelling at site. Pressure dressing applied. Administered Medications: 20:04 Drug: NS 0.9% 1000 ml Route: IV; Rate: 1000 ml; Site: right antecubital; jb4 21:00 Follow up: Response: No adverse reaction; IV Status: Completed infusion jb4 Outcome: 21:16 Discharge ordered by . renetta 21:27 Discharged to home ambulatory, with family. jb4 21:27 Condition: stable 21:27 Discharge instructions given to patient, family, Instructed on discharge instructions, follow up and referral plans. Demonstrated understanding of instructions, follow-up care. 21:28 Patient left the ED. jb4 Signatures: Dispatcher [employer] EDWI Aramis Hilario PA PA jr8 Kathy Simmons, RN RN tw2 Dave Nagel RN RN jb4 Kevin Barclay RN RN jl7 Sarai Harry RN RN ca1 [facility]
--- NOTE | 2020-04-01 21:16 | EDPHYS ---
Physician Documentation [facility] Name: Dave Moreland Age: 80 yrs Sex: Male : 1940 Arrival Date: 04/01/2020 Time: 17:29 Bed 8 Private MD: ED Physician Jalil Silva HPI: 04/01 19:05 This 80 yrs old Male presents to ER via Wheelchair with complaints of jr8 Dizziness. 19:05 The patient presents with dizziness, feeling off balance. Onset: The symptoms/episode jr8 began/occurred gradually, 2 day(s) ago. Context: occurred at home. Modifying factors: The symptoms are alleviated by lying down, the symptoms are aggravated by standing up, changing position. Associated signs and symptoms: The patient has no apparent associated signs or symptoms. Severity of symptoms: At their worst the symptoms were moderate in the emergency department the symptoms are unchanged. Patient's baseline: Neuro: alert and fully oriented, Motor: no deficits, Ambulation: walks without assistance, Speech: normal. The patient has not experienced similar symptoms in the past. The patient has not recently seen a physician. Historical: - Allergies: 17:44 Codeine; ca1 - Home Meds: 17:44 aspirin 81 mg Oral chew 1 tab once daily [Active]; metformin 500 mg Oral tab 1 tab ca1 daily [Active]; lisinopril 20 mg Oral tab 1 tab once daily [Active]; pantoprazole 40 mg Oral TbEC 1 tab once daily [Active]; finasteride 5 mg Oral tab 1 tab once daily [Active]; escitalopram oxalate 10 mg Oral tab 1 tab once daily [Active]; - PMHx: 17:44 Diabetes - NIDDM; GERD; Hyperlipidemia; Hypertension; Myocardial infarction; prostate ca1 problems; - PSHx: 17:44 8 stents; Cholecystectomy; ca1 - Immunization history:: Adult Immunizations up to date, Pneumococcal vaccine is up to date, Flu vaccine is up to date. - Social history:: Smoking status: Patient denies any tobacco usage or history of. ROS: 21:14 Eyes: Negative for injury, pain, redness, and discharge, ENT: Negative for injury, jr8 pain, and discharge, Neck: Negative for injury, pain, and swelling, Cardiovascular: Negative for chest pain, palpitations, and edema, Respiratory: Negative for shortness of breath, cough, wheezing, and pleuritic chest pain, Abdomen/GI: Negative for abdominal pain, nausea, vomiting, diarrhea, and constipation, Back: Negative for injury and pain, MS/Extremity: Negative for injury and deformity, Skin: Negative for injury, rash, and discoloration. 21:14 Neuro: Positive for dizziness. Exam: 21:14 Eyes: Pupils equal round and reactive to light, extra-ocular motions intact. Lids and jr8 lashes normal. Conjunctiva and sclera are non-icteric and not injected. Cornea within normal limits. Periorbital areas with no swelling, redness, or edema. ENT: Nares patent. No nasal discharge, no septal abnormalities noted. Tympanic membranes are normal and external auditory canals are clear. Oropharynx with no redness, swelling, or masses, exudates, or evidence of obstruction, uvula midline. Mucous membranes moist. Neck: Trachea midline, no thyromegaly or masses palpated, and no cervical lymphadenopathy. Supple, full range of motion without nuchal rigidity, or vertebral point tenderness. No Meningismus. Cardiovascular: Regular rate and rhythm with a normal S1 and S2. No gallops, murmurs, or rubs. Normal PMI, no JVD. No pulse deficits. Respiratory: Lungs have equal breath sounds bilaterally, clear to auscultation and percussion. No rales, rhonchi or wheezes noted. No increased work of breathing, no retractions or nasal flaring. Abdomen/GI: Soft, non-tender, with normal bowel sounds. No distension or tympany. No guarding or rebound. No evidence of tenderness throughout. Back: No spinal tenderness. No costovertebral tenderness. Full range of motion. Skin: Warm, dry with normal turgor. Normal color with no rashes, no lesions, and no evidence of cellulitis. MS/ Extremity: Pulses equal, no cyanosis. Neurovascular intact. Full, normal range of motion. Neuro: Awake and alert, GCS 15, oriented to person, place, time, and situation. Cranial nerves II-XII grossly intact. Motor strength 5/5 in all extremities. Sensory grossly intact. Cerebellar exam normal. Normal gait. Vital Signs: 17:39 BP 142 / 67; Pulse 73; Resp 18 S; Temp 98.8(TE); Pulse Ox 97% on R/A; Weight 81.65 kg ca1 (R); Height 5 ft. 10 in. (177.80 cm) (R); Pain 0/10; 18:58 BP 143 / 71; Pulse 70; Resp 20; Pulse Ox 97% on R/A; tw2 20:00 BP 132 / 61; Pulse 67; Resp 19; Pulse Ox 98% on R/A; jb4 21:00 BP 154 / 76; Pulse 57; Resp 16; Pulse Ox 100% on R/A; jb4 17:39 Body Mass Index 25.83 (81.65 kg, 177.80 cm) ca1 MDM: 17:55 Patient medically screened. jr8 21:14 Data reviewed: vital signs, nurses notes, lab test result(s), EKG, radiologic studies, jr8 CT scan. Data interpreted: Pulse oximetry: on room air is 98 %. Interpretation: normal. Counseling: I had a detailed discussion with the patient and/or guardian regarding: the historical points, exam findings, and any diagnostic results supporting the discharge/admit diagnosis, lab results, radiology results, the need for outpatient follow up, a family practitioner, to return to the emergency department if symptoms worsen or persist or if there are any questions or concerns that arise at home. Response to treatment: the patient's symptoms have markedly improved after treatment. ED course: Patient feels much better. Will d/c home. Recommended at least 2 L per day for next few days. To not take metformin as well. Patient good with this . 04/01 17:55 Order name: Basic Metabolic Panel; Complete Time: 19:04/01 17:55 Order name: CBC with Diff; Complete Time: 18:53 04/01 17:55 Order name: LFT's; Complete Time: 19:12 04/01 17:55 Order name: Magnesium; Complete Time: 19:12 04/01 17:55 Order name: NT PRO-BNP; Complete Time: 19:12 04/01 17:55 Order name: PT-INR; Complete Time: 18:53 04/01 17:55 Order name: Troponin (emerg Dept Use Only); Complete Time: 19:12 04/01 17:55 Order name: XRAY Chest (1 view); Complete Time: 18:53 04/01 17:55 Order name: EKG; Complete Time: 17:56 [facility] 04/01 18:31 Order name: Lactate; Complete Time: 20:00 [facility] 04/01 19:18 Order name: CT Head Brain wo Cont; Complete Time: 19:45 [facility] 04/01 19:18 Order name: CT Abd/Pelvis - IV Contrast Only; Complete Time: 19:45 [facility] 04/01 20:10 Order name: Urine Dipstick--Ancillary (enter results); Complete Time: 21:[address] [facility] 04/01 17:55 Order name: Cardiac monitoring; Complete Time: 18:07 [facility] 04/01 17:55 Order name: EKG - Nurse/Tech; Complete Time: 18:07 [facility] 04/01 17:55 Order name: IV Saline Lock; Complete Time: 18:24 [facility] 04/01 17:55 Order name: Labs collected and sent; Complete Time: 18:24 [facility] 04/01 17:55 Order name: O2 Per Protocol; Complete Time: 18:07 [facility] 04/01 17:55 Order name: O2 Sat Monitoring; Complete Time: 18:07 [facility] 04/01 18:31 Order name: Urine Dipstick-Ancillary (obtain specimen); Complete Time: 19:52 [facility] Administered Medications: 20:04 Drug: NS 0.9% 1000 ml Route: IV; Rate: 1000 ml; Site: right antecubital; 4 21:00 Follow up: Response: No adverse reaction; IV Status: Completed infusion jb4 Disposition: 04/02 07:34 Co-signature as Attending Physician, Jalil Silva MD I agree with the assessment and jaxon plan of care. Disposition: 04/01/20 21:16 Discharged to Home. Impression: Dehydration. - Condition is Stable. - Discharge Instructions: Dehydration, Adult. - Medication Reconciliation Form, Thank You Letter, Antibiotic Education, Prescription Opioid Use form. - Follow up: Private Physician; When: 2 - 3 days; Reason: Recheck today's complaints, Continuance of care, Re-evaluation by your physician. - Problem is new. - Symptoms have improved. Signatures: Dispatcher [employer] Jalil Gaffney MD MD cha Roszak, Josh, PA PA jr8 Dave Nagel RN RN jb4 Sarai Harry RN RN ca1 Corrections: (The following items were deleted from the chart) 04/01 21:28 21:16 04/01/2020 21:16 Discharged to Home. Impression: Dehydration. Condition is jb4 Stable. Forms are Medication Reconciliation Form, Thank You Letter, Antibiotic Education, Prescription Opioid Use. Follow up: Private Physician; When: 2 - 3 days; Reason: Recheck today's complaints, Continuance of care, Re-evaluation by your physician. Problem is new. Symptoms have improved. jr8
[2020-04-01 22:18] VITALS: TEMP 98.8
[2020-04-01 22:22] VITALS: BP 154/76; O2SAT 100
--- NOTE | 2020-04-03 07:17 | EKG ---
Test Date: 2020-04-01 Test Time: 18:09:17 Medical Supply Technician: ANNEMARIE MEASUREMENT RESULTS: Intervals: Rate: 70 MS: QRSD: 90 QT: 408 QTc: 440 [place]: P: 90 MS: QRS: -67 T: 48 INTERPRETIVE STATEMENTS: sinus monet /pac Left axis deviation Possible Lateral infarct, age undetermined Inferior infarct, age undetermined Abnormal ECG Compared to ECG 08/04/2019 22:42:09 [facility] Electronically Signed On 04-03-20 07:15:03 CDT by Doroteo Carrion
== END 2020-04-01 21:28 | disposition home or self-care (01) ==
LOC: ER 17:25
DX: E86.0 Dehydration (principal); I10 Essential (primary) hypertension; E11.9 Type 2 diabetes mellitus without complications; E78.5 Hyperlipidemia, unspecified; Z79.82 Long term (current) use of aspirin; Z88.5 Allergy status to narcotic agent
CPT/HCPCS: 93005; 85025; 80048; 36415; 83735; 85610; 80076; 83605; 81003; 84484; 83880; 70450; 74177; 71045; 96360; 99284; Q9967; J7030

== ENCOUNTER 2020-04-07 15:24 | Emergency (ER) | payer OTHER ==
--- OUTSIDE RECORDS SUMMARY | 2020-04-07 15:26 | XMS REPORT | Continuity of Care Document ---
:1940 Author Organization [facility] t Address [address] [place] [address] Care Team Providers Name Role Phone Jose Eduardo FOX Attending Clinician Problems This patient has no known problems. Allergies, Adverse Reactions, Alerts This patient has no known allergies or adverse reactions. Medications This patient has no known medications. Procedures This patient has no known procedures. Encounters Start End Encounter Admission Attending Care Care Encounter Source Date/Time Date/Time Type Type Clinicians Facility Department ID 2020-04-02 2020-04-02 Office TRESA Whitt [id number] 12:42:52 14:35:37 Visit Rita Berg [id number] [place] [id number] [place] [phone] [address] Results This patient has no known results.
--- OUTSIDE RECORDS SUMMARY | 2020-04-07 15:26 | XMS REPORT | Summary of Care ---
:1940 Author Organization [facility] Address [address] [place] [address] Care Team Providers Name Role Phone Cyn Loja MD Primary Care Provider Encounter Details Date Type Department Care Team Description [facility]/11[facility]2020 [facility] - MD Radiology [address] [phone] Allergies Active Allergy Reactions Severity Noted Date Comments Canagliflozin Other - See comments 01/18/2017 Genita l mycotic infections Codeine Rash 06/15/2018 [id number] Other - See comments 08/07/2019 Gail re [...] MOUTH EVERY DAY Coronary artery disease 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 Anxiety REPLACES ESCITALOPRAM documented as of this encounter (statuses as of 01/12/2020) Active Problems Problem Noted Date Greater trochanteric bursitis of left hip 11/28/2019 Overview: Added automatically from request for santo denilson [id number] SI (sacroiliac) joint dysfunction 11/28/2019 Overview: Added automatically from request for santo denilson [id number] Onychomycosis of toenail 06/04/2019 Lumbar spondylosis 12/20/2018 Degeneration of lumbar intervertebral disc 11/21/2018 Lumbar radiculopathy 11/21/2018 Myofascial pain 11/21/2018 Elevated sed rate 10/05/2018 Low ferritin 09/14/2018 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, without lo ng-term current use 07/07/2018 of insulin Bradycardia 06/15/2018 Weakness 06/15/2018 Dizziness 06/15/2018 Coronary artery disease involving [place] coronary martha ry of [place] heart 06/15/2018 without angina pectoris Essential hypertension [...] Mariano MD [address] [place] [id number] 01/29/2020 Office Visit Family Medicine Jeanette Loja MD [address] [place], [place] [address] [phone] Name Type Priority Associated Diagnoses Date/Ti [...] X Medicare A & B nt 82 [id number] [place] BRAN [id number] [employer] [id number] 2016- Indemnity ent documented as of this encounter
--- OUTSIDE RECORDS SUMMARY | 2020-04-07 15:27 | XMS REPORT | Summary of Care ---
:1940 Author Organization [facility] Address [address] [place] [address] Care Team Providers Name Role Phone yCn Loja MD Primary Care Provider Reason for Visit Reason Comments Follow-up left knee injection (Routine) Status Reason Specialty Diagnoses / Procedures Referred By Serjio dukeserred To Contact Contact Authorized Orthopedic Diagnoses Right knee pain, unspecified chronicity Knee crepitus, right [place], Surgery Procedures CONSULT/REFERRAL ORTHOPAEDIC SURGERY IA METHYLPREDNISOLONE 80 MG INJ IA ARTHROCENTESIS ASPIR&/INJ MAJOR JT/BURSA W/O Aria Addison MD [facility] [place] [address] Encounter Details Date Type Department Care Team Description 01/18/2020 Office Visit [facility] Orthopaedic [place] in both knees, Surgery- Otis Elkins MD unspecified chronicity [address] [facility], [place], [address] (Primary Dx) [place] [address] [place] [address] [place], [place] [phone] Allergies Active Allergy Reactions Severity Noted Date Comments Canagliflozin Other - See comments 01/18/2017 Genita l mycotic infections Codeine Rash 06/15/2018 [id number] Other - See comments 08/07/2019 Gail re [...] DAY Coronary artery disease involving [place] coronary artery of [place] heart without angina pectoris PAROXETINE 20 mg [...] Added automatically from request for santo denilson [id number] SI (sacroiliac) joint dysfunction 11/28/2019 Overview: Added automatically from request for santo denilson [id number] Onychomycosis of toenail 06/04/2019 Lumbar spondylosis 12/20/2018 Degeneration of lumbar intervertebral disc 11/21/2018 Lumbar radiculopathy 11/21/2018 Myofascial pain 11/21/2018 Elevated sed rate 10/05/2018 Low ferritin 09/14/2018 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, without lo ng-term current use 07/07/2018 of insulin Bradycardia 06/15/2018 Weakness 06/15/2018 Dizziness 06/15/2018 Coronary artery disease involving [place] coronary martha ry of [place] heart 06/15/2018 without angina pectoris Essential hypertension [...] Dave is allergic to canagliflozin; codeine; and setwsim-dwp-yhl reductase inhibitors. 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
--- OUTSIDE RECORDS SUMMARY | 2020-04-07 15:27 | XMS REPORT | Summary of Care ---
:1940 Author Organization [facility] - [facility] Address [address] [place] [address] Care Team Providers Name Role Phone Cyn Loja MD Primary Care Provider Reason for Referral Radiology Services (Routine) Status Reason Specialty Diagnoses / Referred By Referred To Procedures Contact Contact New Request Diagnostic Diagnoses Pain in both knees, unspecified chronicity [place] [facility] Procedures XR KNEE 3 VW BILATERAL MD [place] [address] Reason for Visit Reason Comments Knee Pain Bilateral (Routine) Status Reason Specialty Diagnoses / Procedures Referred By Serjio benavides To Contact Contact Authorized Orthopedic Diagnoses Right knee pain, unspecified chronicity Knee crepitus, right [place], Surgery Procedures CONSULT/REFERRAL ORTHOPAEDIC SURGERY [place] METHYLPREDNISOLONE 80 MG INJ [place] ARTHROCENTESIS ASPIR&/INJ MAJOR JT/BURSA W/O Aria Addison MD [address] [address] Encounter Details Date Type Department Care Team Description 01/11/2020 Office Visit [facility] Orthopaedic [place] in both knees, Surgery- Otis Elkins MD unspecified chronicity [address] (Primary Dx) [address] [facility] [place] [address] [place], [place] [phone] [address] Allergies Active Allergy Reactions Severity Noted Date Comments Canagliflozin Other - See comments 01/18/2017 Genita l mycotic infections Codeine Rash 06/15/2018 Uqnvcqu-Nkc-Suv Other - See comments 08/07/2019 Gail re [...] EVERY DAY 0 Coronary artery disease involving [place] coronary artery of semin[place] heart without angina pectoris PAROXETINE 20 mg [...] Added automatically from request for santo denilson [id number] SI (sacroiliac) joint dysfunction 11/28/2019 Overview: Added automatically from request for santo denilson [id number] Onychomycosis of toenail 06/04/2019 Lumbar spondylosis 12/20/2018 Degeneration of lumbar intervertebral disc 11/21/2018 Lumbar radiculopathy 11/21/2018 Myofascial pain 11/21/2018 Elevated sed rate 10/05/2018 Low ferritin 09/14/2018 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, without lo ng-term current use 07/07/2018 of insulin Bradycardia 06/15/2018 Weakness 06/15/2018 Dizziness 06/15/2018 Coronary artery disease involving semin[place] coronary martha ry of seminole heart 06/15/2018 without angina pectoris Essential hypertension [...] in this encounter Progress Notes Venus Rosenbaum, MEDICAL STAFF DIRECTOR - 01/11/2020 2:15 PM CDT Cc: Chief [...] Dave is allergic to canagliflozin; codeine; and vswfvkm-ndt-uys reductase inhibitors. 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
--- OUTSIDE RECORDS SUMMARY | 2020-04-07 15:27 | XMS REPORT | Summary of Care ---
:[address] [facility] Address [address] [place] [address] Care Team Providers Name Role Phone Cyn Loja MD Primary Care Provider Reason for Visit Reason Comments Refill Request Encounter Details Date Type Department Care Team Description 01/16/2020 Refill [facility] Family Medicine Aria Park MD Refill Request - [address] [place] [address] [place] [address] [phone] Allergies Active Allergy Reactions Severity Noted Date Comments Canagliflozin Other - See comments 01/18/2017 Genita l mycotic infections Codeine Rash 06/15/2018 Urfduzc-Zft-Oaa Other - See comments 08/07/2019 Gail re [...] EVERY DAY 0 Coronary artery disease involving [place] coronary artery of [place] heart without angina pectoris PAROXETINE 20 mg [...] Added automatically from request for santo denilson [id number] SI (sacroiliac) joint dysfunction 11/28/2019 Overview: Added automatically from request for santo denilson [id number] Onychomycosis of toenail 06/04/2019 Lumbar spondylosis 12/20/2018 Degeneration of lumbar intervertebral disc 11/21/2018 Lumbar radiculopathy 11/21/2018 Myofascial pain 11/21/2018 Elevated sed rate 10/05/2018 Low ferritin 09/14/2018 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, without lo ng-term current use 07/07/2018 of insulin Bradycardia 06/15/2018 Weakness 06/15/2018 Dizziness 06/15/2018 Coronary artery disease involving [place] coronary martha ry of [place] heart 06/15/2018 without angina pectoris Essential hypertension [...] Office Visit Orthopedic Surgery Gianna Hill MD [address] [phone] 01/29/2020 Office Visit Family Medicine Jeanette Loja MD [address] [place] [address] [phone] Health Maintenance Due Date Last Done [...] X Medicare A & B nt 82 [id number] [place] [address] NEW ERA LIFE NEW ERA LIFE [id number] 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
--- OUTSIDE RECORDS SUMMARY | 2020-04-07 15:27 | XMS REPORT | Summary of Care ---
:1940 Author Organization [facility] Address [address] [place] [address] Care Team Providers Name Role Phone Cyn Loja MD Primary Care Provider Reason for Visit Reason Comments Assessment Triage Encounter Details Date Type Department Care Team Description 01/23/2020 Telephone [facility] - Otis FOX [address] [place] [address] Dr osborne [address] [place] [address] [place] [address] [place] [address] [phone] [address] Allergies Active Allergy Reactions Severity Noted Date Comments Canagliflozin Other - See comments 01/18/2017 Genita l mycotic infections Codeine Rash 06/15/2018 Hyathkn-Sla-Xfn Other - See comments 08/07/2019 Gail re [...] MOUTH EVERY DAY Coronary artery disease involving [place] coronary artery of [place] heart without angina pectoris PAROXETINE 20 mg [...] Added automatically from request for santo denilson [id number] SI (sacroiliac) joint dysfunction 11/28/2019 Overview: Added automatically from request for santo denilson [id number] Onychomycosis of toenail 06/04/2019 Lumbar spondylosis 12/20/2018 Degeneration of lumbar intervertebral disc 11/21/2018 Lumbar radiculopathy 11/21/2018 Myofascial pain 11/21/2018 Elevated sed rate 10/05/2018 Low ferritin 09/14/2018 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, without lo ng-term current use 07/07/2018 of insulin Bradycardia 06/15/2018 Weakness 06/15/2018 Dizziness 06/15/2018 Coronary artery disease involving [place] coronary martha ry of [place] heart 06/15/2018 without angina pectoris Essential hypertension [...] e / Group Dates MEDICARE MEDICARE PART [id number] 2004-Prese [phone] P. O. TRIXIE X Medicare A & B nt 82 [id number] HONG BRAN [address] NEW ERA LIFE NEW ERA LIFE [id number] 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
--- OUTSIDE RECORDS SUMMARY | 2020-04-07 15:27 | XMS REPORT | Summary of Care ---
:1940 Author Organization [facility] Address [address] [place] [address] Care Team Providers Name Role Phone Cyn Loja MD Primary Care Provider Reason for Referral Radiology Services (Routine) Status Reason Specialty Diagnoses / Referred By Referred To Procedures Contact Contact New Request Diagnostic Diagnoses Pain in both knees, unspecified chronicity [place] [facility] Procedures XR KNEE 3 VW BILATERAL [place] [address] Reason for Visit Reason Comments Knee Pain Bilateral (Routine) Status Reason Specialty Diagnoses / Procedures Referred By Serjio benavides To Contact Contact Authorized Orthopedic Diagnoses Right knee pain, unspecified chronicity Knee crepitus, right [place], Surgery Procedures CONSULT/REFERRAL ORTHOPAEDIC SURGERY [place] METHYLPREDNISOLONE 80 MG INJ [place] ARTHROCENTESIS ASPIR&/INJ MAJOR JT/BURSA W/O Aria Addison MD [address] [facility] [address] Encounter Details Date Type Department Care Team Description 01/11/2020 Office Visit [facility] Orthopaedic [place] P [place] in both knees, Surgery- Otis Elkins MD unspecified chronicity [address] (Primary Dx) [address] [facility] [place] [address] [place], [place] [phone] [address] Allergies Active Allergy Reactions Severity Noted Date Comments Canagliflozin Other - See comments 01/18/2017 Genita l mycotic infections Codeine Rash 06/15/2018 Anxplvy-Wff-Hny Other - See comments 08/07/2019 Gail re [...] EVERY DAY 0 Coronary artery disease involving [place] coronary artery of [place] heart without angina pectoris PAROXETINE 20 mg [...] Added automatically from request for santo denilson [id number] SI (sacroiliac) joint dysfunction 11/28/2019 Overview: Added automatically from request for santo denilson [id number] Onychomycosis of toenail 06/04/2019 Lumbar spondylosis 12/20/2018 Degeneration of lumbar intervertebral disc 11/21/2018 Lumbar radiculopathy 11/21/2018 Myofascial pain 11/21/2018 Elevated sed rate 10/05/2018 Low ferritin 09/14/2018 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, without lo ng-term current use 07/07/2018 of insulin Bradycardia 06/15/2018 Weakness 06/15/2018 Dizziness 06/15/2018 Coronary artery disease involving [place] coronary martha ry of [place] heart 06/15/2018 without angina pectoris Essential hypertension [...] in this encounter Progress Notes Venus Rosenbaum, PRODUCT SAFETY PROFESSIONAL - 01/11/2020 2:15 PM CDT Cc: Chief [...] Dave is allergic to canagliflozin; codeine; and enwsreo-fvf-aly reductase inhibitors. Medications Outpatient Medications Prior to [...] Left 12/13/2019 Surgeon: Dayana Mariano MD; Location: [facility] SPINE SURGERY STENT PLACEMENT (SHX) TROCHANTERIC STEROID INJECTION (SHX) Left 12/13/2019 Surgeon: Dayana Mariano MD; Location: [place] 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
--- OUTSIDE RECORDS SUMMARY | 2020-04-07 15:27 | XMS REPORT | Summary of Care ---
:1940 Author Organization [facility] Address [address] [place] [address] Care Team Providers Name Role Phone Cyn Loja MD Primary Care Provider Reason for Visit Reason Comments Follow-up left knee injection (Routine) Status Reason Specialty Diagnoses / Procedures Referred By Serjio dukeserred To Contact Contact Authorized Orthopedic Diagnoses Right knee pain, unspecified chronicity Knee crepitus, right [place], Surgery Procedures CONSULT/REFERRAL ORTHOPAEDIC SURGERY [place] METHYLPREDNISOLONE 80 MG INJ [place] ARTHROCENTESIS ASPIR&/INJ MAJOR JT/BURSA W/O Aria Addison MD [facility] E [place] [facility] [employer] [place] [address] Encounter Details Date Type Department Care Team Description 01/18/2020 Office Visit [facility] Orthopaedic [place] ain in both knees, Surgery- Otis Elkins MD unspecified chronicity [address] [facility], [address] (Primary Dx) [place] [address]36 [place], [place] [phone] [address] [phone] Allergies Active Allergy Reactions Severity Noted Date Comments Canagliflozin Other - See comments 01/18/2017 Genita l mycotic infections Codeine Rash 06/15/2018 Bogwqvy-Ojw-Pfz Other - See comments 08/07/2019 Gail re [...] MOUTH EVERY DAY Coronary artery disease involving [place] coronary artery of [place] heart without angina pectoris PAROXETINE 20 mg [...] Added automatically from request for santo denilson [id number] SI (sacroiliac) joint dysfunction 11/28/2019 Overview: Added automatically from request for santo denilson [id number] Onychomycosis of toenail 06/04/2019 Lumbar spondylosis 12/20/2018 Degeneration of lumbar intervertebral disc 11/21/2018 Lumbar radiculopathy 11/21/2018 Myofascial pain 11/21/2018 Elevated sed rate 10/05/2018 Low ferritin 09/14/2018 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, without lo ng-term current use 07/07/2018 of insulin Bradycardia 06/15/2018 Weakness 06/15/2018 Dizziness 06/15/2018 Coronary artery disease involving [place] coronary martha ry of [place] heart 06/15/2018 without angina pectoris Essential hypertension [...] Dave is allergic to canagliflozin; codeine; and txbhqhd-znn-ajn reductase inhibitors. 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
--- OUTSIDE RECORDS SUMMARY | 2020-04-07 15:28 | XMS REPORT | Summary of Care ---
:1940 Author Organization [facility] Address [address] [place] [address] Care Team Providers Name Role Phone Cyn Loja MD Primary Care Provider Reason for Visit Reason Comments LOW BACK PAIN 01/28 Pelvic Pain 01/28 Testicular Pain Encounter Details Date Type Department Care Team Description 03/05/2020 Office Visit [facility] General Rita Whitt Ben ign prostatic hyperplasia, unspecified whether lower urinary tract symptoms present (Primary Dx); Surgery- [place] Inguinal pain of both sides; [address] [place] [address] Driv e [address] [facility] H/O bilateral inguinal herni a repair [address] [facility] 2.100 [address] [place], [place] [phone] [address] [phone] Allergies Active Allergy Reactions Severity Noted Date Comments Canagliflozin Other - See comments 01/18/2017 Genita l mycotic infections Codeine Rash 06/15/2018 Mhjazmv-Dnc-Iun Other - See comments 08/07/2019 Gail odom [...] MOUTH EVERY DAY Coronary artery disease involving [place] coronary artery of [place] heart without angina pectoris PAROXETINE 20 mg [...] 11/28/2019 Overview: Added automatically from request for satno denilson [id number] SI (sacroiliac) joint dysfunction 11/28/2019 Overview: Added automatically from request for santo denilson [id number] Onychomycosis of toenail 06/04/2019 Lumbar spondylosis 12/20/2018 Degeneration of lumbar intervertebral disc 11/21/2018 Lumbar radiculopathy 11/21/2018 Myofascial pain 11/21/2018 Elevated sed rate 10/05/2018 Low ferritin 09/14/2018 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, without lo ng-term current use 07/07/2018 of insulin Bradycardia 06/15/2018 Weakness 06/15/2018 Dizziness 06/15/2018 Coronary artery disease involving [place] coronary martha ry of [place] heart 06/15/2018 without angina pectoris Essential hypertension [...] Left 12/13/2019 Surgeon: Dayana Mariano MD; Location: [place] [facility] SPINE SURGERY STENT PLACEMENT (SHX) TROCHANTERIC STEROID INJECTION (SHX) Left 12/13/2019 Surgeon: Dayana Mariano MD; Location: [place] [facility] Allergies: Allergies Allergen Reactions Canagliflozin Other - See comments Genital mycotic infections Codeine Rash Gkvnczm-Caf-Fro Reductase Inhibitors Other - See comments Severe [...] file Gets together: Not on file Attends jain service: Not on file Active member of [...] on file 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 Pt preferred language is Turkmen. Pt. denies fall in last 12 months. Allergies and medications reviewed and updated. [id number] [place] - [address] AT [facility] [employer] [place] .sign documented in this encounter Plan of Treatment Date Type Specialty Care Team Description 03/05/2020 Card Puncher Visit Phlebotomy Nora Whitt MD [address] [facility] [address] [place] [address] [phone] Benign prostatic 2, Adc Lab hyperplasia, unspecified whether lower u rinary tract symptoms present 03/13/2020 Office Visit Urology Kaylie Mcneil, CHARGE MASTER SPECIALIST [address] [facility] [address] [place], [place] [address] [phone] 04/02/2020 Office Visit Surgery Rita Whitt MD [address] [facility] [address] [place] [address] [phone] Name Type Priority Associated Diagnoses Order S [...] e / Group Dates MEDICARE MEDICARE PART [id number] 2004-Walter [phone] P. O. TRIXIE X Medicare A & B nt 82 [id number] HONG BRAN [id number] NEW ERA LIFE NEW ERA LIFE [id number] 2016-Pres Brownemkarolina ent documented as of this encounter
--- OUTSIDE RECORDS SUMMARY | 2020-04-07 15:28 | XMS REPORT | Summary of Care ---
:1940 Author Organization [facility] Address [address] [place] [address] Care Team Providers Name Role Phone Cyn Loja MD Primary Care Provider Reason for Visit Reason Comments LAB Encounter Details Date Type Department Care Team Description 03/05/2020 Optical Technician Visit [facility] Nora Whitt MD [address] [facility] [address] [place] [address] Benign prostatic Professional Office 2, Adc Lab hyperplasia, Building Phlebotomy unspecif ied whether Lab lower urinary tract Professional Office symptoms present Building [address] [place] [address] , [address] [place] [address] Allergies Active Allergy Reactions Severity Noted Date Comments Canagliflozin Other - See comments 01/18/2017 Genita l mycotic infections Codeine Rash 06/15/2018 Ettycnc-Jrl-Bsv Other - See comments 08/07/2019 Gail odom [...] MOUTH EVERY DAY Coronary artery disease involving [place] coronary artery of [place] heart without angina pectoris PAROXETINE 20 [...] Added automatically from request for santo denilson [id number] SI (sacroiliac) joint dysfunction 11/28/2019 Overview: Added automatically from request for santo denilson [id number] Onychomycosis of toenail 06/04/2019 Lumbar spondylosis 12/20/2018 Degeneration of lumbar intervertebral disc 11/21/2018 Lumbar radiculopathy 11/21/2018 Myofascial pain 11/21/2018 Elevated sed rate 10/05/2018 Low ferritin 09/14/2018 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, without lo ng-term current use 07/07/2018 of insulin Bradycardia 06/15/2018 Weakness 06/15/2018 Dizziness 06/15/2018 Coronary artery disease involving [place] coronary martha ry of [place] heart 06/15/2018 without angina pectoris Essential [...] processed according to instructions and sent to [facility] laboratories per lab order on 03/05/20: LT BLUE SST 1 RED LAV PPT DK GREEN (LiHep) DK GREEN (SodH) CHATTERJEE DK BLUE (K2) DK BLUE (S) ACD Blood Culture NIPT/NTD documented in this encounter Plan of Treatment Date Type Specialty Care Team Description 03/13/2020 Office Visit Urology Kaylie Mcneil, WAREHOUSE PACKAGING SUPERVISOR [address] [facility] [address] [place], [place] [address] 04/02/2020 Office Visit Surgery Rita Whitt MD [address] [facility] [place] [facility] 2.[address] [place], [place] 427813 Health Maintenance Due Date Last Done Comments [...] e / Group Dates MEDICARE MEDICARE PART [id number] 2004-[place]ter [phone] P. O. TRIXIE X Medicare A & B nt 82 [id number] HONG BRAN [id number] NEW ERA LIFE NEW ERA LIFE [id number] [place] [id number] documented as of this encounter
--- OUTSIDE RECORDS SUMMARY | 2020-04-07 15:28 | XMS REPORT | Summary of Care ---
:1940 Author Organization [facility] Address [address] [place] [address] Care Team Providers Name Role Phone Cyn Loja MD Primary Care Provider Reason for Visit Reason Comments Medical Records [facility] Cardiology Encounter Details Date Type Department Care Team Description 03/01/2020 Telephone [facility] Giselle Traore M D Medical Records Cardiology- [address] ([facility] Cardiology [address] [place] [address], [facility] ) [address] [place], [place] [address] [phone] Allergies Active Allergy Reactions Severity Noted Date Comments Canagliflozin Other - See comments 01/18/2017 Genita l mycotic infections Codeine Rash 06/15/2018 Enwwhxe-Hws-Vvh Other - See comments 08/07/2019 Gail re [...] MOUTH EVERY DAY Coronary artery disease involving [place] coronary artery of [place] heart without angina pectoris PAROXETINE 20 mg [...] Added automatically from request for santo denilson [id number] SI (sacroiliac) joint dysfunction 11/28/2019 Overview: Added automatically from request for santo denilson [id number] Onychomycosis of toenail 06/04/2019 Lumbar spondylosis 12/20/2018 Degeneration of lumbar intervertebral disc 11/21/2018 Lumbar radiculopathy 11/21/2018 Myofascial pain 11/21/2018 Elevated sed rate 10/05/2018 Low ferritin 09/14/2018 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, without lo ng-term current use 07/07/2018 of insulin Bradycardia 06/15/2018 Weakness 06/15/2018 Dizziness 06/15/2018 Coronary artery disease involving [place] coronary martha ry of [place] heart 06/15/2018 without angina pectoris Essential hypertension [...] PM CDTReceived Records release request. Faxed to [facility] Dept. Follow up with them for status [...] e / Group Dates MEDICARE MEDICARE PART [id number] 2004-Presjina [phone] P. O. TRIXIE X Medicare A & B nt 82 [id number] H[place] BRAN [id number] NEW ERA LIFE NEW ERA LIFE [id number] 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
--- OUTSIDE RECORDS SUMMARY | 2020-04-07 15:28 | XMS REPORT | Summary of Care ---
:1940 Author Organization [facility] Address [address] [place] [address] Care Team Providers Name Role Phone Cyn Loja MD Primary Care Provider Reason for Visit Reason Comments LOW BACK PAIN 01/28 Pelvic Pain 01/28 Testicular Pain Encounter Details Date Type Department Care Team Description 03/05/2020 Office Visit [facility] General Rita Whitt Ben ign prostatic hyperplasia, unspecified whether lower urinary tract symptoms present (Primary Dx); Surgery- [place] Inguinal pain of both sides; [address] [place] [address] Driv e [address] [facility] H/O bilateral inguinal herni a repair [address] [facility] 2.100 [address] [place], [place] [phone] [address] [phone] Allergies Active Allergy Reactions Severity Noted Date Comments Canagliflozin Other - See comments 01/18/2017 Genita l mycotic infections Codeine Rash 06/15/2018 Vhojrwa-Tgc-Zww Other - See comments 08/07/2019 Gail odom [...] MOUTH EVERY DAY Coronary artery disease involving galena coronary artery of galena heart without angina pectoris PAROXETINE 20 mg [...] Added automatically from request for santo denilson [id number] SI (sacroiliac) joint dysfunction 11/28/2019 Overview: Added automatically from request for santo denilson [id number] Onychomycosis of toenail 06/04/2019 Lumbar spondylosis 12/20/2018 Degeneration of lumbar intervertebral disc 11/21/2018 Lumbar radiculopathy 11/21/2018 Myofascial pain 11/21/2018 Elevated sed rate 10/05/2018 Low ferritin 09/14/2018 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, without lo ng-term current use 07/07/2018 of insulin Bradycardia 06/15/2018 Weakness 06/15/2018 Dizziness 06/15/2018 Coronary artery disease involving galena coronary martha ry of galena heart 06/15/2018 without angina pectoris Essential hypertension [...] Left 12/13/2019 Surgeon: Dayana Mariano MD; Location: [place] [facility] SPINE SURGERY STENT PLACEMENT (SHX) TROCHANTERIC STEROID INJECTION (SHX) Left 12/13/2019 Surgeon: Dayana Mariano MD; Location: [place] [facility] Allergies: Allergies Allergen Reactions Canagliflozin Other - See comments Genital mycotic infections Codeine Rash Dnhotfr-Aoj-Hms Reductase Inhibitors Other - See comments Severe [...] file Gets together: Not on file Attends episcopalian service: Not on file Active member of [...] on file 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 Pt preferred language is Guyanese. Pt. denies fall in last 12 months. Allergies and medications reviewed and updated. [id number] [place] [facility] - [id number] AT [facility] Savored [place] .sign documented in this encounter Plan of Treatment Date Type Specialty Care Team Description 03/05/2020 Bench Press Operator Visit Phlebotomy Nora Whitt MD 2240 [facility] 2.[address] [place] [address] [phone] Benign prostatic 2, Adc Lab hyperplasia, unspecified whether lower u rinary tract symptoms present 03/13/2020 Office Visit Urology Kaylie Mcneil, COMMUNITY HEALTH EDUCATOR [address] [facility] [address] [place], [place] [address] [phone] 04/02/2020 Office Visit Surgery Rita Whitt MD 2240 [facility] 2.[address] [place] [address] [phone] Name Type Priority Associated Diagnoses Order S [...] e / Group Dates MEDICARE MEDICARE PART [id number] 2004-Walter [phone] P. O. TRIXIE X Medicare A & B nt 82 [id number] HONG BRAN [id number] NEW ERA LIFE NEW ERA LIFE [id number] 2016-Pres Brownemkarolina ent documented as of this encounter
--- OUTSIDE RECORDS SUMMARY | 2020-04-07 15:29 | XMS REPORT | Summary of Care ---
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 Family history of prostate c ancer in father [address] [place] [phone] [place] [address] Allergies Active Allergy Reactions Severity Noted Date Comments Canagliflozin Other - See comments 01/18/2017 Genita l mycotic infections Codeine Rash 06/15/2018 Hxcbigc-Owc-Vcg Other - See comments 08/07/2019 Gail odom [...] MOUTH EVERY DAY Coronary artery disease involving [place] coronary artery of [place] heart without angina pectoris PAROXETINE 20 mg [...] Added automatically from request for santo denilson [id number] SI (sacroiliac) joint dysfunction 11/28/2019 Overview: Added automatically from request for santo denilson [id number] Onychomycosis of toenail 06/04/2019 Lumbar spondylosis 12/20/2018 Degeneration of lumbar intervertebral disc 11/21/2018 Lumbar radiculopathy 11/21/2018 Myofascial pain 11/21/2018 Elevated sed rate 10/05/2018 Low ferritin 09/14/2018 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, without lo ng-term current use 07/07/2018 of insulin Bradycardia 06/15/2018 Weakness 06/15/2018 Dizziness 06/15/2018 Coronary artery disease involving [place] coronary martha ry of [place] heart 06/15/2018 without angina pectoris Essential hypertension [...] by: established Chief Complaint: Prostate check HPI Nesotr Gomez 80 year old male for PSA results and prostate check. He has He has a strong family history of prostate cancer: father- from prostate cancer, PGF and PU. He had a prostate fedruw39+ years ago which was negative per patient. 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 Respiratory: Negative. Cardiovascular: Negative. Gastrointestinal: Positive for rectal pain. Genitourinary: Positive for testicular pain. Pelvic pain Musculoskeletal: Negative. Neurological: Positive for dizziness and light-headedness. Psychiatric/Behavioral: The patient is nervous/anxious. Physical Exam Exam conducted with a machine rebuilder present ([employer] RN). Constitutional: Appearance: Normal [...] pain reported 0/10. Pt preferred language is Vincentian. Pt. denies fall in last 12 months. Allergies and medications reviewed and updated. Pt to monitor BP at home if it remains elevated or he is to become symptomatic he is to contact his PCP or go directly to the ER documented in this encounter Plan of Treatment Date Type Specialty Care Team Description 04/02/2020 Office Visit Surgery Rita Whitt MD 2240 [facility] 2.[address] [place] [address] [phone] Health Maintenance Due Date Last Done Comments [...] e / Group Dates MEDICARE MEDICARE PART [id number] 2004-[place] [phone] P. O. TRIXIE X Medicare A & B nt 82 [id number] HONG BRAN [id number] NEW ERA LIFE NEW ERA LIFE [id number] 2016-Pres [place] ent documented as of this encounter
--- OUTSIDE RECORDS SUMMARY | 2020-04-07 15:29 | XMS REPORT | Summary of Care ---
:1940 Author Organization [facility] Address [address] [place] [address] Care Team Providers Name Role Phone Cyn Loja MD Primary Care Provider Encounter Details Date Type Department Care Team Description 03/01/2020 Orders Only [facility] Doctor Unassigned, No [address] [facility] [place] [address] [address] [place] [address] Allergies Active Allergy Reactions Severity Noted Date Comments Canagliflozin Other - See comments 01/18/2017 Genita l mycotic infections Codeine Rash 06/15/2018 Ypklzbp-Pmg-Zze Other - See comments 08/07/2019 Gail re [...] MOUTH EVERY DAY Coronary artery disease involving [place] coronary artery of [place] heart without angina pectoris PAROXETINE 20 mg [...] Added automatically from request for santo denilson [id number] SI (sacroiliac) joint dysfunction 11/28/2019 Overview: Added automatically from request for santo denilson [id number] Onychomycosis of toenail 06/04/2019 Lumbar spondylosis 12/20/2018 Degeneration of lumbar intervertebral disc 11/21/2018 Lumbar radiculopathy 11/21/2018 Myofascial pain 11/21/2018 Elevated sed rate 10/05/2018 Low ferritin 09/14/2018 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, without lo ng-term current use 07/07/2018 of insulin Bradycardia 06/15/2018 Weakness 06/15/2018 Dizziness 06/15/2018 Coronary artery disease involving [place] coronary martha ry of [place] heart 06/15/2018 without angina pectoris Essential hypertension [...] Office Visit Surgery Rita Whitt MD 2240 [facility] 2.[address] [place] [address] [phone] Health Maintenance Due Date Last Done Comments [...] e / Group Dates MEDICARE MEDICARE PART [id number] 2004-e [phone] P. O. TRIXIE X Medicare A & B nt 82 [id number] HONG BRAN [id number] NEW ERA LIFE NEW ERA LIFE [id number] 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
--- OUTSIDE RECORDS SUMMARY | 2020-04-07 15:29 | XMS REPORT | Summary of Care ---
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 Orchalgia; [facility] [address] [facility] Family history of prostate c ancer in father [address] [place] [phone] [place] [address] Allergies Active Allergy Reactions Severity Noted Date Comments Canagliflozin Other - See comments 01/18/2017 Genita l mycotic infections Codeine Rash 06/15/2018 Jmzwbbo-Cbn-Tql Other - See comments 08/07/2019 Gail odom [...] MOUTH EVERY DAY Coronary artery disease involving [place] coronary artery of [place] heart without angina pectoris PAROXETINE 20 mg [...] Added automatically from request for santo denilson [id number] SI (sacroiliac) joint dysfunction 11/28/2019 Overview: Added automatically from request for santo denilson [id number] Onychomycosis of toenail 06/04/2019 Lumbar spondylosis 12/20/2018 Degeneration of lumbar intervertebral disc 11/21/2018 Lumbar radiculopathy 11/21/2018 Myofascial pain 11/21/2018 Elevated sed rate 10/05/2018 Low ferritin 09/14/2018 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, without lo ng-term current use 07/07/2018 of insulin Bradycardia 06/15/2018 Weakness 06/15/2018 Dizziness 06/15/2018 Coronary artery disease involving [place] coronary martha ry of af[place] heart 06/15/2018 without angina pectoris Essential hypertension [...] PGF and PU. He had a prostate urwfiq48+ years ago which was negative per patient. 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 Respiratory: Negative. Cardiovascular: Negative. Gastrointestinal: Positive for rectal pain. Genitourinary: Positive for testicular pain. Pelvic pain Musculoskeletal: Negative. Neurological: Positive for dizziness and light-headedness. Psychiatric/Behavioral: The patient is nervous/anxious. Physical Exam Exam conducted with a electrochemist present ([employer] RN). Constitutional: Appearance: Normal [...] pain reported 0/10. Pt preferred language is Djiboutian. Pt. denies fall in last 12 months. Allergies and medications reviewed and updated. Pt to monitor BP at home if it remains elevated or he is to become symptomatic he is to contact his PCP or go directly to the ER documented in this encounter Plan of Treatment Date Type Specialty Care Team Description 04/02/2020 Office Visit Surgery Rita Whitt MD 2240 [facility] 2.[address] [place] [address] [phone] Health Maintenance Due Date Last Done Comments [...] e / Group Dates MEDICARE MEDICARE PART [id number] 2004-[place] [phone] P. O. TRIXIE X Medicare A & B nt 82 [id number] HONG BRAN [id number] NEW ERA LIFE NEW ERA LIFE [id number] 2016-Pres Beck[place] ent documented as of this encounter
--- OUTSIDE RECORDS SUMMARY | 2020-04-07 15:30 | XMS REPORT | Summary of Care ---
:1940 Author Organization [facility] - [facility] Address [address] [place] [address] Care Team Providers Name Role Phone Cyn Loja MD Primary Care Provider Reason for Visit Reason Comments Rx Concern/Question Encounter Details Date Type Department Care Team Description 03/27/2020 Telephone [facility] Family rAia Loja R x Concern/Question Medicine - [place] [address] [place] [address] Dr osborne [address] [place] [address] [place] [address] [place] [phone] [address] Allergies Active Allergy Reactions Severity Noted Date Comments Canagliflozin Other - See comments 01/18/2017 Genita l mycotic infections Codeine Rash 06/15/2018 Gwtqqmj-[id number]-Zsn Other - See comments 08/07/2019 Gail re [...] MOUTH EVERY DAY Coronary artery disease involving [place] coronary artery of [place] heart without angina pectoris PAROXETINE 20 mg [...] Added automatically from request for santo denilson [id number] SI (sacroiliac) joint dysfunction 11/28/2019 Overview: Added automatically from request for santo denilson [id number] Onychomycosis of toenail 06/04/2019 Lumbar spondylosis 12/20/2018 Degeneration of lumbar intervertebral disc 11/21/2018 Lumbar radiculopathy 11/21/2018 Myofascial pain 11/21/2018 Elevated sed rate 10/05/2018 Low ferritin 09/14/2018 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, without lo ng-term current use 07/07/2018 of insulin Bradycardia 06/15/2018 Weakness 06/15/2018 Dizziness 06/15/2018 Coronary artery disease involving [place] coronary martha ry of [place] heart 06/15/2018 without angina pectoris Essential hypertension [...] Visit Surgery Rita Whitt MD 2240 [facility] 2.[address] [place] [address] [phone] Health Maintenance Due Date Last Done Comments [...] e / Group Dates MEDICARE MEDICARE PART [id number] 2004-Walter [phone] P. O. TRIXIE X Medicare A & B nt 82 [id number] HONG BRAN [id number] NEW ERA LIFE NEW ERA LIFE [id number] 2016- Indemnity ent documented as of this encounter
--- OUTSIDE RECORDS SUMMARY | 2020-04-07 15:30 | XMS REPORT | Summary of Care ---
:1940 Author Organization [facility] Address [address] [place] [address] Care Team Providers Name Role Phone Cyn Loja MD Primary Care Provider Reason for Visit Reason Comments Refill Request Encounter Details Date Type Department Care Team Description 03/27/2020 Refill [facility] Family Medicine Aria Park MD Refill Request - [address] [place] [address] [place] [address] [phone] Allergies Active Allergy Reactions Severity Noted Date Comments Canagliflozin Other - See comments 01/18/2017 Genita l mycotic infections Codeine Rash 06/15/2018 Pklobnk-Bjv-Hmt Other - See comments 08/07/2019 Gail re [...] MOUTH EVERY DAY Coronary artery disease involving [place] coronary artery of [place] heart without angina pectoris PAROXETINE 20 mg [...] Added automatically from request for santo denilson [id number] SI (sacroiliac) joint dysfunction 11/28/2019 Overview: Added automatically from request for santo denilson [id number] Onychomycosis of toenail 06/04/2019 Lumbar spondylosis 12/20/2018 Degeneration of lumbar intervertebral disc 11/21/2018 Lumbar radiculopathy 11/21/2018 Myofascial pain 11/21/2018 Elevated sed rate 10/05/2018 Low ferritin 09/14/2018 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, without lo ng-term current use 07/07/2018 of insulin Bradycardia 06/15/2018 Weakness 06/15/2018 Dizziness 06/15/2018 Coronary artery disease involving [place] coronary martha ry of [place] heart 06/15/2018 without angina pectoris Essential hypertension [...] Office Visit Surgery Rita Whitt MD 2240 [facility] 2.[address] [place], [place] [address] Health Maintenance Due Date Last Done Comments [...] e / Group Dates MEDICARE MEDICARE PART [id number] 2004-[place] [phone] P. O. TRIXIE X Medicare A & B nt 82 [id number] HONG BRAN [id number] NEW ERA LIFE NEW ERA LIFE [id number] 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
--- OUTSIDE RECORDS SUMMARY | 2020-04-07 15:30 | XMS REPORT | Summary of Care ---
:1940 Author Organization [facility] Address [address] [place] [address] Care Team Providers Name Role Phone Cyn Loja MD Primary Care Provider Reason for Referral (Routine) Status Reason Specialty Diagnoses / Referred By Referred To Procedures Contact Contact Pending Location Dermatology Diagnoses Rash Nicole Campo Review Preference Procedures CONSULT/REFERRAL DERMATOLOGY [facility] [address] [place] [phone] Reason for Visit Reason Comments Rash reports itching spells for t he past couple of weeks unreleived with OTC remedies Encounter Details Date Type Department Care Team Description 03/21/2020 Urgent Care [facility] Family Shayna Campo PA [address] [place] [phone] Rash (Primary Dx); Medicine - [place] Provider, [facility] Urgent Care [facility] [address] [place] [phone] Allergies Active Allergy Reactions Severity Noted Date Comments Canagliflozin Other - See comments 01/18/2017 Genita l mycotic infections Codeine Rash 06/15/2018 Vzsdora-Gaj-Jei Other - See comments 08/07/2019 Gail re [...] Added automatically from request for santo denilson [id number] SI (sacroiliac) joint dysfunction 11/28/2019 Overview: Added automatically from request for santo denilson [id number] Onychomycosis of toenail 06/04/2019 Lumbar spondylosis 12/20/2018 [...] Dave is allergic to canagliflozin; codeine; and unrtckm-zig-jeu reductase inhibitors. 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 O. TRIXIE X Medicare A & B nt 82 [id number] HONG BRAN [id number] NEW ERA LIFE NEW ERA LIFE [id number] 2016- Indemnity ent documented as of this encounter
--- OUTSIDE RECORDS SUMMARY | 2020-04-07 15:31 | XMS REPORT | Summary of Care ---
:1940 Author Organization [facility] Address [address] [place] [address] Care Team Providers Name Role Phone Cyn Loja MD Primary Care Provider Reason for Visit Reason Comments Follow-up Encounter Details Date Type Department Care Team Description 04/02/2020 Office Visit [facility] General Rita Whitt, Ing uinal pain of both sides (Primary Dx); Surgery- Otis FOX H/O bilateral inguinal hernia repair [address] [facility] [address] [facility] [address] [place], [place] [address] [address] [place], [place] [phone] [id number] Allergies Active Allergy Reactions Severity Noted Date Comments Canagliflozin Other - See comments 01/18/2017 Genita l mycotic infections Codeine Rash 06/15/2018 Faxqeul-Vtu-Saa Other - See comments 08/07/2019 Gail re myalgia Reductase Inhibitors documented as of this encounter (statuses as of 04/05/2020) Medications Medication Sig Dispensed Refills Start Date [...] MOUTH EVERY DAY Coronary artery disease involving [place] coronary artery of [place] heart without angina pectoris PAROXETINE 20 mg [...] as of this encounter (statuses as of 04/05/2020) Active Problems Problem Noted Date Greater trochanteric bursitis of left hip 11/28/2019 Overview: Added automatically from request for santo denilson [id number] SI (sacroiliac) joint dysfunction 11/28/2019 Overview: Added automatically from request for santo denilson [id number] Onychomycosis of toenail 06/04/2019 Lumbar spondylosis 12/20/2018 Degeneration of lumbar intervertebral disc 11/21/2018 Lumbar radiculopathy 11/21/2018 Myofascial pain 11/21/2018 Elevated sed rate 10/05/2018 Low ferritin 09/14/2018 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, without lo ng-term current use 07/07/2018 of insulin Bradycardia 06/15/2018 Weakness 06/15/2018 Dizziness 06/15/2018 Coronary artery disease involving [place] coronary martha ry of [place] heart 06/15/2018 without angina pectoris Essential hypertension [...] Exam Next Due 09/30/2018 Done 09/30/2017 SmartData: ALANNA - Francine SANCHEZ - DIABETIC FOOT EXAM PERFORMED Patient has more history with this top ic... PLAN: Continue same medications Examine and protect feet , Occlusion and stenosis of unspecified carotid artery 0 08/20/2015 Overview: Overview: Converted from Centricity: Description - CAROTID ARTERY STENOSIS Anxiety documented as of this encounter (statuses as of 04/05/2020) Immunizations Name Administration Dates Next Due Influenza [...] been in contact with No / Unsure 04/02/2020 1:54 PM CDT someone who was confirmed or suspected to have Coronavirus / COVID-19? documented as of this encounter Last Filed Vital Signs Vital Sign Reading Time Taken Comments Blood Pressure 116/80 04/02/2020 1:54 PM CDT Pulse 80 04/02/2020 1:54 PM CDT Temperature 36.8 C (98.3 F) 04/02/2020 1:54 PM CDT Respiratory Rate 20 04/02/2020 1:54 PM CDT Oxygen Saturation 98% 04/02/2020 1:54 PM CDT Inhaled Oxygen Concentration - - Weight 85.2 kg (187 lb 12.8 oz) 04/02/2020 1:54 PM CDT Height - - Body Mass Index 26.95 03/21/2020 1:22 PM CDT documented in this encounter Progress Notes Marianela De La Torre - 04/02/2020 1:30 PM CDTSummary: STUDENT NOTE GENERAL SURGERY CLINIC NOTE Reason for Visit / Chief Complaint: F/u ilioinguinal groin pain History of Present Illness: Dave Moreland is a 80 year old male with PMHx as below who presents for follow up of bilateral ilioinguinal nerve block done on 03/05 for bilateral groin from BIH repair. Patient notes that he no longer has right groin pain but continues to have left groin pain with mild improvement from nerve block along with left lower back pain above the buttock. Pain is constant and aching. He notes that his left lower back pain goes through his hip causing left groin pain. Patient also c/o nausea and gas after eating. Denies any abdominal pain. Past Medical History: Past Medical History: Diagnosis [...] Left 12/13/2019 Surgeon: Dayana Mariano MD; Location: [place] [facility] SPINE SURGERY STENT PLACEMENT (SHX) TROCHANTERIC STEROID INJECTION (SHX) Left 12/13/2019 Surgeon: Dayana Mariano MD; Location: [place] [facility] Allergies: Allergies Allergen Reactions Canagliflozin Other - See comments Genital mycotic infections Codeine Rash Dbzwwfg-Uio-Rgr Reductase Inhibitors Other - See comments Severe myalgia Medications: Patient's Medications START taking these medications No medications on file CONTINUE taking these medications which have NOT CHANGED AMMONIUM LACTATE 12 % CREAM Apply to area(s) as needed (dry skin). ASPIRIN 81 MG CHEWABLE TABLET Take 1 [...] Take 1 capsule by mouth at bedtime. TRIAMCINOLONE ACETONIDE 0.1 % CREAM Apply to area(s) 2 (two) times daily. START taking Modified Medications as Prescribed No medications on file STOP taking these medications No medications on file Current Outpatient Medications Medication Sig Dispense Refill ammonium lactate 12 % cream Apply to area(s) as needed (dry skin). 140 g 0 triamcinolone acetonide 0.1 % cream Apply to area(s) 2 (two) times daily. 60 g 0 LISINOPRIL 20 mg tablet TAKE 1 TABLET [...] No current facility-administered medications for this visit. Review of Systems (BOLDED if positive. Otherwise negative.) General: weight changes, fatigue, fever Eyes: corrective lenses, pain, blurred vision ENT: hearing problems, earaches, allergies, nose bleeds Skin: rashes, lumps Respiratory: cough, wheeze, shortness of breath Cardiac: chest discomfort, palpitations Gastrointestinal: swallowing problems, nausea/vomiting, blood in stool, abdominal pain Musculoskeletal: muscle cramps, back pain, joint pain, weakness, tingling, pain in feet Immunologic: food allergies, recurrent infections Urinary: increased frequency, burning, urinating at night, incontinence, blood in urine : groin pain Psychiatric: anxiety, depression Endocrine: thyroid trouble, diabetes Neurologic: fainting, seizures, loss of memory, headaches, numbness, stroke Hematologic: anemia, bleeding problems, transfusion reaction Physical Exam: BP 116/80 (BP Location: Right arm, Patient Position: Sitting, BP CUFF SIZE: Adult Large) | Pulse 80 | Temp 36.8 C (98.3 F) (Temporal Artery) | Resp 20 | Wt 187 lb 12.8 oz (85.2 kg) | SpO2 98%| BMI 26.95 kg/m General: alert and oriented in no apparent distress Head: normocephalic, atraumatic Eyes: extraocular movements intact; no scleral icterus ENT: no rhinorrhea, moist mucus membranes Neck: supple, trachea midline CV: hemodynamically stable Resp: unlabored, no increased work of breathing, equal bilateral chest rise Gi: abdomen soft, nondistended, no tenderness to palpation, no peritonitis Extremities/Musculoskeletal: moves extremities well, no edema or cyanosis Skin: skin color, texture, and turgor normal; no rashes or lesions Neuro: unremarkable without focal findings Psych: normal mood and affect; judgement intact Musculoskeletal: tenderness to palpation on left illac crest Assessment: Dave Moreland is a 80 year old male presents for follow up of bilateral ilioinguinal nerve block done on 03/05 for bilateral groin from BIH repair along with left illac crest pain with. Patient no longer complaining of right groin pain but continues having left groin pain. Do not suspect left illac crest pain causing left groin pain. Patient also notes gas and nausea after eating. Plan: 1. Do not suspect that left illac crest pain has to do with left groin pain 2. Schedule appointment with Dr. Quintanilla for possible sacral nerve block 3. Recommend trying GasX after meals. If patient continues to have nausea and gas after eating, schedule follow up. HONG [id number] signed by Rita Whitt MD at 04/05/2020 3:39 PM CDTHRita harrell MD - 04/02/2020 1:30 PM CDT GENERAL SURGERY FOLLOW UP CLINIC [...] recently had done has not helped. He underwent bilateral ilioinguinal nerve blocks at his last appointment about 1 month ago. He states the right groin pain is completely resolved but he still reports pain on the left. The pain is located in the left buttock and radiates straight through to the left groin. He was seen by urology for orchalgia. Past Medical History: Past Medical History: Diagnosis [...] Left 12/13/2019 Surgeon: Dayana Mariano MD; Location: [place] [facility] SPINE SURGERY STENT PLACEMENT (SHX) TROCHANTERIC STEROID INJECTION (SHX) Left 12/13/2019 Surgeon: Dayana Mariano MD; Location: [facility] Allergies: Allergies Allergen Reactions Canagliflozin Other - See comments Genital mycotic infections Codeine Rash Aexuxmx-Etx-Vaz Reductase Inhibitors Other - See comments Severe myalgia Medications: Patient's Medications START taking these medications No medications on file CONTINUE taking these medications which have NOT CHANGED AMMONIUM LACTATE 12 % CREAM Apply to area(s) as needed (dry skin). ASPIRIN 81 MG CHEWABLE TABLET Take 1 [...] Take 1 capsule by mouth at bedtime. TRIAMCINOLONE ACETONIDE 0.1 % CREAM Apply to area(s) 2 (two) times daily. START taking Modified Medications as Prescribed No medications on file STOP taking these medications No medications on file Current Outpatient Medications Medication Sig Dispense Refill ammonium lactate 12 % cream Apply to area(s) as needed (dry skin). 140 g 0 triamcinolone acetonide 0.1 % cream Apply to area(s) 2 (two) times daily. 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 [place] Physical Exam: BP 116/80 (BP Location: Right arm, Patient Position: Sitting, BP CUFF SIZE: Adult Large) | Pulse 80 | Temp 36.8 C (98.3 F) (Temporal Artery) | Resp 20 | Wt 85.2 kg (187 lb 12.8 oz) | SpO2 98%| BMI 26.95 kg/m Constitutional: Awake, alert, oriented, in no acute distress Head: Normocephalic, atraumatic Eyes: Extraocular movements grossly intact, pupils equal and reactive to light and accomodation, anicteric sclerae Ears: Normal external exam Nose: Normal external exam Mouth: Moist mucous membranes Neck: Supple, no jugular venous distention Respiratory: No respiratory distress GI: Soft, nontender, non-distended Musculoskeletal: Normal tone and strength, normal range [...] Bilateral lioinguinal nerve block performed in clinic last month with complete resolution of right groin pain. Patient now c/o of left buttock pain radiating to the left groin. This is different than the groin pain he was experiencing previously. Plan: 1. RTC 2 weeks for possible nerve block with Dr. Socorro Whitt M.D. 04/02/2020 14:35 ATABebe shin RN - 04/02/2020 1:30 PM CDTJaruslan Moreland is a 80 year old male comes to clinic with assistive device; cane for Leg and back pain. Pt comes alone . Pt in NAD w/ pain reported 10/28. Pt preferred language is Chinese. Pt. denies fall in last 12 months. Allergies and medications reviewed and updated. documented in this encounter Plan of Treatment Date Type Specialty Care Team Description 04/16/2020 Office Visit Surgery Rita Whitt MD [address] [facility] [address] [place] [address] [phone] Health Maintenance Due Date Last Done Comments [...] filedocumented in this encounter Visit Diagnoses Diagnosis Inguinal pain of both sides - Primary Abdominal pain, unspecified site H/O bilateral inguinal hernia repair Other postprocedural status documented in this encounter Insurance Payer Benefit Plan Subscriber ID Effective Phone Address Typ e / Group Dates MEDICARE MEDICARE PART [id number] 2004-[place] [phone] [address] Medicare A & B nt 82 [id number] [place] [id number] [employer] [id number] 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"
--- OUTSIDE RECORDS SUMMARY | 2020-04-07 15:31 | XMS REPORT | Summary of Care ---
:1940 Author Organization [facility] Address [address] [place] [address] Care Team Providers Name Role Phone Cyn Loja MD Primary Care Provider Reason for Visit Reason Comments Follow-up Encounter Details Date Type Department Care Team Description 04/02/2020 Office Visit [facility] General Rita Whitt, Ing uinal pain of both sides (Primary Dx); Surgery- Otis FOX H/O bilateral inguinal hernia repair [address] [facility] [address] [facility] [address] [place], [place] [address] [place], [place] [phone] [id number] Allergies Active Allergy Reactions Severity Noted Date Comments Canagliflozin Other - See comments 01/18/2017 Genita l mycotic infections Codeine Rash 06/15/2018 Hrvwnqv-Tue-Qjy Other - See comments 08/07/2019 Gail re [...] MOUTH EVERY DAY Coronary artery disease involving [place] coronary artery of [place] heart without angina pectoris PAROXETINE 20 mg [...] Added automatically from request for santo denilson [id number] SI (sacroiliac) joint dysfunction 11/28/2019 Overview: Added automatically from request for santo denilson [id number] Onychomycosis of toenail 06/04/2019 Lumbar spondylosis 12/20/2018 Degeneration of lumbar intervertebral disc 11/21/2018 Lumbar radiculopathy 11/21/2018 Myofascial pain 11/21/2018 Elevated sed rate 10/05/2018 Low ferritin 09/14/2018 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, without lo ng-term current use 07/07/2018 of insulin Bradycardia 06/15/2018 Weakness 06/15/2018 Dizziness 06/15/2018 Coronary artery disease involving [place] coronary martha ry of [place] heart 06/15/2018 without angina pectoris Essential hypertension [...] Left 12/13/2019 Surgeon: Dayana Mariano MD; Location: [place] [facility] SPINE SURGERY STENT PLACEMENT (SHX) TROCHANTERIC STEROID INJECTION (SHX) Left 12/13/2019 Surgeon: Dayana Mariano MD; Location: [place] [facility] Allergies: Allergies Allergen Reactions Canagliflozin Other - See comments Genital mycotic infections Codeine Rash Skhhusk-Meb-Oxg Reductase Inhibitors Other - See comments Severe [...] gas after eating, schedule follow up. HONG [id number] signed by Rita Whitt MD at 04/05/2020 [...] Left 12/13/2019 Surgeon: Dayana Mariano MD; Location: [place] [facility] SPINE SURGERY STENT PLACEMENT (SHX) TROCHANTERIC STEROID INJECTION (SHX) Left 12/13/2019 Surgeon: Dayana Mariano MD; Location: [facility] Allergies: Allergies Allergen Reactions Canagliflozin Other - See comments Genital mycotic infections Codeine Rash Fupmvlz-Dhx-Eog Reductase Inhibitors Other - See comments Severe [...] file Gets together: Not on file Attends bahai service: Not on file Active member of [...] on file 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 Pt preferred language is Khmer. Pt. denies fall in last 12 months. Allergies and medications reviewed and updated. documented in this encounter Plan of Treatment Date Type Specialty Care Team Description 04/16/2020 Office Visit Surgery Rita Whitt MD [address] [facility] [address] [place] [address] [phone] Health Maintenance Due Date Last Done Comments [...] e / Group Dates MEDICARE MEDICARE PART [id number] 2004-[place] [phone] [address] Medicare A & B nt 82 [id number] [place] [address] [employer] [id number] 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"
--- OUTSIDE RECORDS SUMMARY | 2020-04-07 15:31 | XMS REPORT | Summary of Care ---
:[address] [facility] Address [address] [place] [address] Care Team Providers Name Role Phone Cyn Loja MD Primary Care Provider Reason for Visit Reason Comments Refill Request Encounter Details Date Type Department Care Team Description 03/30/2020 Refill [facility] Tona velasquez, HONG Alfonso Refill Request - [address] [place] [address] [place] [address] [place] [address] [phone] Allergies Active Allergy Reactions Severity Noted Date Comments Canagliflozin Other - See comments 01/18/2017 Genita l mycotic infections Codeine Rash 06/15/2018 Xlwtsti-Bix-Kvo Other - See comments 08/07/2019 Gail re [...] MOUTH EVERY DAY Coronary artery disease involving [place] coronary artery of [place] heart without angina pectoris PAROXETINE 20 mg [...] Added automatically from request for santo denilson [id number] SI (sacroiliac) joint dysfunction 11/28/2019 Overview: Added automatically from request for santo denilson [id number] Onychomycosis of toenail 06/04/2019 Lumbar spondylosis 12/20/2018 Degeneration of lumbar intervertebral disc 11/21/2018 Lumbar radiculopathy 11/21/2018 Myofascial pain 11/21/2018 Elevated sed rate 10/05/2018 Low ferritin 09/14/2018 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, without lo ng-term current use 07/07/2018 of insulin Bradycardia 06/15/2018 Weakness 06/15/2018 Dizziness 06/15/2018 Coronary artery disease involving [place] coronary martha ry of [place] heart 06/15/2018 without angina pectoris Essential hypertension [...] Surgery Rita Whitt MD [address] [facility] [address] [place] [address] [phone] Health Maintenance Due Date Last Done Comments [...] e / Group Dates MEDICARE MEDICARE PART [id number] 2004-[place] [phone] [address] Medicare A & B nt 82 [id number] [place] [id number] [employer] [id number] 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
--- NOTE | 2020-04-07 16:13 | ER ---
Nurse's Notes [facility] Name: Dave Moreland Age: 80 yrs Sex: Male : 1940 Arrival Date: 04/07/2020 Time: 15:27 Bed 20 Private MD: Diagnosis: Pain in left leg;Radiculopathy;Neuropathy Presentation: 04/07 15:36 Chief complaint: Patient states: "my left leg and hip feels like is giving out on me jd3 today. I have had problems with nerve pain before, but this doesn't feel the same. it just really hurts and it started this morning.". Coronavirus screen: At this time, the client does not indicate any symptoms associated with coronavirus-19. Ebola Screen: Patient negative for fever greater than or equal to 101.5 degrees Fahrenheit, and additional compatible Ebola Virus Disease symptoms. Initial Sepsis Screen: Does the patient meet any 2 criteria? No. Patient's initial sepsis screen is negative. Does the patient have a suspected source of infection? No. Patient's initial sepsis screen is negative. Risk Assessment: Do you want to hurt yourself or someone else? Patient reports no desire to harm self or others. Onset of symptoms was April 07, 2020. 15:36 Method Of Arrival: Ambulatory jd3 15:36 Acuity: CLARK 3 jd3 Triage Assessment: 15:45 General: Appears in no apparent distress. uncomfortable, Behavior is cooperative, bp appropriate for age, anxious. Pain: Complains of pain in left leg. EENT: No deficits noted. Neuro: No deficits noted. Cardiovascular: No deficits noted. Respiratory: No deficits noted. GI: No signs and/or symptoms were reported involving the gastrointestinal system. : No signs and/or symptoms were reported regarding the genitourinary system. Derm: No deficits noted. Musculoskeletal: No deficits noted. Historical: - Allergies: 15:39 Codeine; jd3 - Home Meds: 15:39 aspirin 81 mg Oral chew 1 tab once daily [Active]; escitalopram oxalate 10 mg Oral tab jd3 1 tab once daily [Active]; finasteride 5 mg Oral tab 1 tab once daily [Active]; lisinopril 20 mg Oral tab 1 tab once daily [Active]; metformin 500 mg Oral tab 1 tab daily [Active]; pantoprazole 40 mg Oral TbEC 1 tab once daily [Active]; - PMHx: 15:39 Diabetes - NIDDM; GERD; Hyperlipidemia; Hypertension; Myocardial infarction; prostate jd3 problems; - PSHx: 15:39 8 stents; Cholecystectomy; jd3 - Immunization history:: Adult Immunizations up to date. - Social history:: Smoking status: Patient denies any tobacco usage or history of. - Family history:: not pertinent. - Hospitalizations: : No recent hospitalization is reported. Screenin:30 Abuse screen: Denies threats or abuse. Nutritional screening: No deficits noted. tw2 Tuberculosis screening: No symptoms or risk factors identified. Fall Risk Secondary diagnosis (15 points) impaired mobility. Assessment: 15:45 General: SEE TRIAGE NOTE. bp 16:13 Reassessment: PT D/C HOME AMBULATORY WITH FAMILY, DX WITH RADICULOPATHY. bp Vital Signs: 15:39 BP 141 / 76; Pulse 70; Resp 17 S; Temp 98.2(TE); Pulse Ox 98% on R/A; Weight 83.46 kg jd3 (R); Height 5 ft. 10 in. (177.80 cm) (R); Pain 10/10; 16:13 BP 131 / 64; Pulse 64; Resp 16; Pulse Ox 98% ; bp 15:39 Body Mass Index 26.40 (83.46 kg, 177.80 cm) jd3 ED Course: 15:27 Patient arrived in ED. as 15:29 Chet Hernandez, RN is Primary Nurse. bp 15:30 Placed in gown. Bed in low position. Call light in reach. Adult w/ patient. Pulse ox tw2 on. NIBP on. 15:31 Rufus Carranza MD is Attending Physician. rn 15:38 Triage completed. jd3 15:39 Arm band placed on. jd3 16:13 No provider procedures requiring assistance completed. Patient did not have IV access bp during this emergency room visit. Administered Medications: 16:05 Drug: TORadol - Ketorolac 15 mg Route: IM; Site: right gluteus; bp 16:15 Follow up: Response: No adverse reaction; Pain is decreased bp 16:05 Drug: Decadron 10 mg Route: IM; Site: right gluteus; bp 16:15 Follow up: Response: No adverse reaction bp Outcome: 16:13 Discharge ordered by . rn 16:13 Discharged to home ambulatory, with family. bp 16:13 Condition: stable 16:13 Discharge instructions given to patient, Instructed on discharge instructions, follow up and referral plans. medication usage, Demonstrated understanding of instructions, follow-up care, medications, Prescriptions given X 1. 16:28 Patient left the ED. bp Signatures: Shae Mehta Roman, MD MD rn Wise, Tara, RN RN tw2 Griffin Restrepo RN RN jd3 Chet Hernandez RN RN bp
--- NOTE | 2020-04-07 16:13 | EDPHYS ---
Physician Documentation [facility] Name: Dave Moreland Age: 80 yrs Sex: Male : 1940 Arrival Date: 04/07/2020 Time: 15:27 Bed 20 Private MD: ED Physician Rufus Carranza HPI: 04/07 15:56 This 80 yrs old Male presents to ER via Ambulatory with complaints of Leg rn Pain, Hip Pain. 15:56 The patient presents with pain. The complaints affect the left hip. Onset: The rn symptoms/episode began/occurred at an unknown time. Modifying factors: The symptoms are alleviated by nothing. the symptoms are aggravated by movement, weight bearing. Severity of symptoms: At their worst the symptoms were moderate, in the emergency department the symptoms are unchanged. The patient has experienced similar episodes in the past. Reports chronic nerve problems and bilateral hip pain, has been getting injections, helped right hip but still having pain in left hip. NO fever. No injury. Reports hurting more today, starts in butt and shoots down leg. No weakness. No rash or evidence of infection. Told might need another nerve block or injection soon. Doesn't like to take pain medication or have some at home, so came here for some relief. . Historical: - Allergies: 15:39 Codeine; jd3 - Home Meds: 15:39 aspirin 81 mg Oral chew 1 tab once daily [Active]; escitalopram oxalate 10 mg Oral tab jd3 1 tab once daily [Active]; finasteride 5 mg Oral tab 1 tab once daily [Active]; lisinopril 20 mg Oral tab 1 tab once daily [Active]; metformin 500 mg Oral tab 1 tab daily [Active]; pantoprazole 40 mg Oral TbEC 1 tab once daily [Active]; - PMHx: 15:39 Diabetes - NIDDM; GERD; Hyperlipidemia; Hypertension; Myocardial infarction; prostate jd3 problems; - PSHx: 15:39 8 stents; Cholecystectomy; jd3 - Immunization history:: Adult Immunizations up to date. - Social history:: Smoking status: Patient denies any tobacco usage or history of. - Family history:: not pertinent. - Hospitalizations: : No recent hospitalization is reported. ROS: 15:56 Constitutional: Negative for fever, chills, and weight loss, Eyes: Negative for injury, rn pain, redness, and discharge, Neck: Negative for injury, pain, and swelling, Cardiovascular: Negative for chest pain, palpitations, and edema, Respiratory: Negative for shortness of breath, cough, wheezing, and pleuritic chest pain, Abdomen/GI: Negative for abdominal pain, vomiting, diarrhea, and constipation, Back: Negative for injury and pain, : Negative for injury, bleeding, discharge, and swelling, MS/Extremity: Negative for injury and deformity, Skin: Negative for injury, rash, and discoloration, Neuro: Negative for headache, weakness, and seizure. Exam: 15:56 Constitutional: This is a well developed, well nourished patient who is awake, alert, rn and in no acute distress. Head/Face: Normocephalic, atraumatic. Cardiovascular: Regular rate and rhythm. No pulse deficits. Respiratory: No increased work of breathing, no retractions or nasal flaring. Abdomen/GI: Soft, non-tender, no masses, no evidence of inguinal hernia Skin: Warm, dry, no cellulitis MS/ Extremity: Pulses equal, no cyanosis. Neurovascular intact. No focal tenderness. Neuro: Awake and alert, GCS 15, oriented to person, place, time, and situation. Cranial nerves II-XII grossly intact. Motor strength 4/5 in all extremities. Sensory grossly intact. Vital Signs: 15:39 BP 141 / 76; Pulse 70; Resp 17 S; Temp 98.2(TE); Pulse Ox 98% on R/A; Weight 83.46 kg jd3 (R); Height 5 ft. 10 in. (177.80 cm) (R); Pain 10/10; 16:13 BP 131 / 64; Pulse 64; Resp 16; Pulse Ox 98% ; bp 15:39 Body Mass Index 26.40 (83.46 kg, 177.80 cm) jd3 MDM: 15:31 Patient medically screened. rn 16:00 ED course: Seen here this past week, approx 6 days ago, for dehydration, neg ct head/ct rn abdomen. Reports has f/u with his doctor and reports hip pain, that is when he was told might need another injection/block.. 16:10 Differential diagnosis: arthritis, radiculopathy. Data reviewed: vital signs, nurses rn notes, old medical records, and as a result, I will discharge patient. Counseling: I had a detailed discussion with the patient and/or guardian regarding: the historical points, exam findings, and any diagnostic results supporting the discharge/admit diagnosis, the need for outpatient follow up, to return to the emergency department if symptoms worsen or persist or if there are any questions or concerns that arise at home. Response to treatment: the patient's symptoms have mildly improved after treatment, and as a result, I will discharge patient. Special discussion: I discussed with the patient/guardian in detail that at this point there is no indication for admission to the hospital. It is understood, however, that if the symptoms persist or worsen the patient needs to return immediately for re-evaluation. ED course: Pt with chronic joint and nerve pain, has had injections, has been told probably will need another one, already has appt for this injection, and normal exam otherwise. Recent bloodwork and ct normal. No trauma. Will dc home with steroids and prn tylenol/ibuprofen. . 16:13 ED course: Pt also reports gabapentin has been decreased recently and stopped taking rn his metformin, both of which could potentiate his chronic neuropathy. . Administered Medications: 16:05 Drug: TORadol - Ketorolac 15 mg Route: IM; Site: right gluteus; bp 16:15 Follow up: Response: No adverse reaction; Pain is decreased bp 16:05 Drug: Decadron 10 mg Route: IM; Site: right gluteus; bp 16:15 Follow up: Response: No adverse reaction bp Disposition: 04/07/20 16:13 Discharged to Home. Impression: Pain in left leg, Radiculopathy, Neuropathy. - Condition is Stable. - Discharge Instructions: Lumbosacral Radiculopathy, Musculoskeletal Pain, Peripheral Neuropathy. - Prescriptions for Medrol (Anupam) 4 mg Oral Tablets, Dose Pack - take 1 tablet by ORAL route as directed - follow package instructions; 1 packet. - Medication Reconciliation Form, Thank You Letter, Antibiotic Education, Prescription Opioid Use form. - Follow up: Private Physician; When: As needed; Reason: Recheck today's complaints, Re-evaluation by your physician. - Problem is chronic. - Symptoms have improved. Signatures: Rufus Carranza MD MD rn Davies, Jonathon, RN RN jd3 Peltier, Brian, RN RN bp Corrections: (The following items were deleted from the chart) 16:28 16:13 04/07/2020 16:13 Discharged to Home. Impression: Pain in left leg; Radiculopathy; bp Neuropathy. Condition is Stable. Forms are Medication Reconciliation Form, Thank You Letter, Antibiotic Education, Prescription Opioid Use. Follow up: Private Physician; When: As needed; Reason: Recheck today's complaints, Re-evaluation by your physician. Problem is chronic. Symptoms have improved. rn
[2020-04-07] MEDS ORDERED: KETOROLAC 30 MG/ML INJ ONE (16:14)
[2020-04-07] MEDS ORDERED: dexAMETHasone 4 MG/ML VIAL ONE (16:14)
[2020-04-07 16:33] VITALS: TEMP 98.2; O2SAT 98
[2020-04-07 16:34] VITALS: BP 131/64
== END 2020-04-07 16:28 | disposition home or self-care (01) ==
LOC: ER 15:24
DX: M54.10 Radiculopathy, site unspecified (principal); E11.40 Type 2 diabetes mellitus with diabetic neuropathy, unspecified; I10 Essential (primary) hypertension; E78.5 Hyperlipidemia, unspecified; Z79.82 Long term (current) use of aspirin; Z88.5 Allergy status to narcotic agent
CPT/HCPCS: 96372; 99283; J1100

== ENCOUNTER 2020-08-19 04:08 | Observation (INO) | payer OTHER ==
--- OUTSIDE RECORDS SUMMARY | 2020-08-19 04:11 | XMS REPORT | Continuity of Care Document ---
:1940 Author Organization [facility] t Address [address] [place] [address] Care Team Providers Name Role Phone Freedom FOX, A Attending Clinician Problems This patient has no known problems. Allergies, Adverse Reactions, Alerts This patient has no known allergies or adverse reactions. Medications This patient has no known medications. Procedures This patient has no known procedures. Encounters Start End Encounter Admission Attending Care Care Encounter Source Date/Time Date/Time Type Type Clinicians Facility Department ID 2020-07-23 2020-07-23 Telephone TRESA Loja [id number] 00:00:00 00:00:00 [facility] [id number] [place] [id number] [facility] [phone] nal [address] 2020-07-19 2020-07-19 Office TRESA Loja [id number] 08:01:11 10:21:48 Visit [facility] [id number] [place] [id number] [facility] [phone] nal [address] Results This patient has no known results.
[2020-08-19 04:59] LABS: Absolute Lymphocytes (CBC) 0.8 K/uL (0.7-4.9); Basophils % 0.3 % (0-1.3); Hematocrit 35.9 % (39.6-49.0); MPV 9.5 fL (7.6-11.3)
[2020-08-19 05:01] LABS: Protime INR 0.98
[2020-08-19 05:02] LABS: ALT/SGPT 34 U/L (12-78); AST/SGOT 18 U/L (15-37); Albumin 3.1 g/dL (3.4-5.0); Alkaline Phosphatase 58 U/L (45-117); BUN Blood Urea Nitrogen 19 mg/dL (7-18); Bicarbonate 19 mmol/L (21-32); Bilirubin Direct < 0.1 mg/dL (0-0.2); Bilirubin Total 0.3 mg/dL (0.2-1.0); Glucose Level 201 mg/dL (74-106); NT PRO-BNP 177 pg/mL (<450); Sodium Level 138 mmol/L (136-145); Troponin (Emerg Dept Use Only) < 0.02 ng/mL (0.0-0.045)
[2020-08-19] MEDS ORDERED: ALBUTEROL INHALER 60 PUFF/8 GM IH ONE (05:10)
[2020-08-19 05:44] LABS: SARS-COV-2 RT PCR POSITIVE (NEGATIVE)
[2020-08-19] MEDS ORDERED: NA CHLORIDE 0.9% 500 ML ONE (05:47)
[2020-08-19 06:34] LABS: Platelet Estimate ADEQ
[2020-08-19 06:35] LABS: Blood Morphology Comment NOT SEEN (NOT SEEN)
--- NOTE | 2020-08-19 06:37 | EDPHYS ---
Physician Documentation [facility] Name: Dave Moreland Age: 80 yrs Sex: Male : 1940 Arrival Date: 08/19/2020 Time: 04:10 Bed 7 Private MD: ED Physician Ashu Stone HPI: 08/19 04:22 This 80 yrs old Male presents to ER via EMS with complaints of Shortness Of mh7 Breath. 04:23 The patient has shortness of breath at rest, with light activity. Onset: The mh7 symptoms/episode began/occurred 2 day(s) ago. Duration: The symptoms are intermittent, with no pattern. The patient's shortness of breath is aggravated by coughing, exertion, is alleviated by nothing. Associated signs and symptoms: Pertinent positives: non-productive cough, nausea, Pertinent negatives: chest pain, productive cough, diaphoresis, dizziness, fever, hemoptysis, loss of consciousness, numbness in extremities, visual changes, vomiting. Severity of symptoms: At their worst the symptoms were moderate last night, in the emergency department the symptoms are unchanged. tested positive for COVID recently.. Historical: - Allergies: 04:16 Codeine; wh - PMHx: 04:16 Diabetes - NIDDM; GERD; Hyperlipidemia; Hypertension; Myocardial infarction; prostate wh problems; - Immunization history:: Adult Immunizations up to date. - Social history:: Smoking status: Patient/guardian denies using. ROS: 04:23 Constitutional: Negative for fever, chills, and weight loss, Eyes: Negative for injury, mh7 pain, redness, and discharge, ENT: Negative for injury, pain, and discharge, Neck: Negative for injury, pain, and swelling, Cardiovascular: Negative for chest pain, palpitations, and edema, Back: Negative for injury and pain, : Negative for injury, bleeding, discharge, and swelling, MS/Extremity: Negative for injury and deformity, Skin: Negative for injury, rash, and discoloration, Neuro: Negative for headache, weakness, numbness, tingling, and seizure, Psych: Negative for depression, anxiety, suicide ideation, homicidal ideation, and hallucinations, Allergy/Immunology: Negative for hives, rash, and allergies, Endocrine: Negative for neck swelling, polydipsia, polyuria, polyphagia, and marked weight changes, Hematologic/Lymphatic: Negative for swollen nodes, abnormal bleeding, and unusual bruising. Exam: 04:23 Constitutional: This is a well developed, well nourished patient who is awake, alert, mh7 and in no acute distress. Head/Face: Normocephalic, atraumatic. Eyes: Pupils equal round and reactive to light, extra-ocular motions intact. Lids and lashes normal. Conjunctiva and sclera are non-icteric and not injected. Cornea within normal limits. Periorbital areas with no swelling, redness, or edema. Neck: Trachea midline, no thyromegaly or masses palpated, and no cervical lymphadenopathy. Supple, full range of motion without nuchal rigidity, or vertebral point tenderness. No Meningismus. Chest/axilla: Normal chest wall appearance and motion. Nontender with no deformity. No lesions are appreciated. Cardiovascular: Regular rate and rhythm with a normal S1 and S2. No gallops, murmurs, or rubs. Normal PMI, no JVD. No pulse deficits. 04:23 Abdomen/GI: Soft, non-tender, with normal bowel sounds. No distension or tympany. No guarding or rebound. No evidence of tenderness throughout. Back: No spinal tenderness. No costovertebral tenderness. Full range of motion. Skin: Warm, dry with normal turgor. Normal color with no rashes, no lesions, and no evidence of cellulitis. MS/ Extremity: Pulses equal, no cyanosis. Neurovascular intact. Full, normal range of motion. Neuro: Awake and alert, GCS 15, oriented to person, place, time, and situation. Cranial nerves II-XII grossly intact. Motor strength 5/5 in all extremities. Sensory grossly intact. Cerebellar exam normal. Normal gait. Psych: Awake, alert, with orientation to person, place and time. Behavior, mood, and affect are within normal limits. 04:23 Respiratory: the patient does not display signs of respiratory distress, Respirations: normal, Breath sounds: rhonchi, that are mild, are scattered, Respiratory rate: 18 Vital Signs: 04:18 BP 132 / 77; Pulse 75; Resp 18; Temp 98.2; Pulse Ox 98% on R/A; Weight 81.65 kg; Height wh 5 ft. 10 in. (177.80 cm); 07:00 BP 125 / 72; Pulse 70; Resp 18; Pulse Ox 98% on 2 lpm NC; mg2 08:00 BP 109 / 72; Pulse 75; Resp 18; Temp 98.9; Pulse Ox 97% 2 lpm ; jl7 09:00 BP 138 / 75; Pulse 74; Resp 19; Pulse Ox 98% on 2 lpm NC; jl7 04:18 Body Mass Index 25.83 (81.65 kg, 177.80 cm) wh MDM: 06:34 Differential diagnosis: Anemia Anxiety Reaction asthma, Bronchitis CHF exacerbation, mh7 Chronic Obstructive Pulmonary Disease Myocardial Infarction pneumonia, Pneumothorax pulmonary edema. Data reviewed: vital signs, nurses notes, EMS record, lab test result(s), cardiac enzymes, CBC, electrolytes, urinalysis. Data interpreted: Pulse oximetry: on room air is 98 %. Interpretation: normal. Counseling: I had a detailed discussion with the patient and/or guardian regarding: the historical points, exam findings, and any diagnostic results supporting the discharge/admit diagnosis, lab results, radiology results, the need for further work-up and treatment in the hospital. Response to treatment: the patient's symptoms have mildly improved after treatment. ED course: O2 sat to 90% with ambulation. 06:[address] [facility] 08/19 04:20 Order name: Basic Metabolic Panel [facility] 08/19 04:20 Order name: CBC with Diff; Complete Time: 06:46 7 08/19 04:20 Order name: LFT's; Complete Time: 05:12 7 08/19 04:20 Order name: Magnesium; Complete Time: 05:12 7 08/19 04:20 Order name: NT PRO-BNP; Complete Time: 05:12 7 08/19 04:20 Order name: PT-INR; Complete Time: 06:20 7 08/19 04:20 Order name: Troponin (emerg Dept Use Only); Complete Time: 05:12 7 08/19 04:21 Order name: Basic Metabolic Panel; Complete Time: 05:12 EDMS 08/19 05:06 Order name: Manual Differential; Complete Time: 06:46 EDMS 08/19 05:44 Order name: COVID-19/FLU A+B; Complete Time: 05:49 EDMS 08/19 05:49 Order name: Blood Culture Adult (2) [facility] 08/19 05:49 Order name: Lactate [facility] 08/19 04:20 Order name: XRAY Chest (1 view) [facility] 08/19 04:20 Order name: EKG; Complete Time: 04:21 [facility] 08/19 04:20 Order name: Cardiac monitoring; Complete Time: 04:27 [facility] 08/19 04:20 Order name: EKG - Nurse/Tech; Complete Time: 04:27 [facility] 08/19 04:20 Order name: IV Saline Lock; Complete Time: 04:27 [facility] 08/19 04:20 Order name: Labs collected and sent; Complete Time: 04:27 [facility] 08/19 04:20 Order name: O2 Per Protocol; Complete Time: 04:27 [facility] 08/19 04:20 Order name: O2 Sat Monitoring; Complete Time: 04:27 [facility] 08/19 05:15 Order name: Urine Dipstick-Ancillary (obtain specimen); Complete Time: 05:35 [facility] 08/19 05:49 Order name: Procalcitonin [facility] 08/19 06:01 Order name: D-Dimer; Complete Time: 06:20 EDMS Administered Medications: 04:58 Drug: Albuterol HFA Inhaler 2 puffs Route: Inhalation; 07:00 Follow up: Response: No adverse reaction [facility] 05:34 Drug: NS 0.9% 500 ml Route: IV; Rate: bolus; Site: left forearm; wh 07:00 Follow up: Response: No adverse reaction; IV Status: Completed infusion; IV Intake: jl7 500ml 06:47 Drug: SOLU-Medrol 125 mg Route: IVP; Site: right hand; [facility] 07:33 Follow up: Response: No adverse reaction jl Disposition: 08/19/20 06:36 Hospitalization ordered by Mika Pinzon for Inpatient Admission. Preliminary diagnosis are Coronavirus infection, unspecified, Hypoxia. - Bed requested for Telemetry/MedSurg (Inpatient). - Status is Inpatient Admission. jl7 - Condition is Stable. - Problem is new. - Symptoms have improved. Signatures: Dispatcher [employer] EDMS Anna Norris RN RN Kevin Barclay RN RN [facility] Adilene Paige RN RN Km Bell RN RN [facility] Ashu Stone MD MD [facility] Corrections: (The following items were deleted from the chart) 04:56 04:22 Influenza Screen (A \T\ B)+BA.LAB.BRZ ordered. EDID EDMS 04:58 04:22 CORONAVIRUS+MR.LAB.BRZ ordered. EDID EDID 06:00 05:52 D-DIMER+COAG.LAB.BRZ ordered. EDID EDID 08:24 06:36 Hospitalization Ordered by Mika Pinzon DO for Inpatient Admission. Preliminary dw diagnosis is Coronavirus infection, unspecified; Hypoxia. Bed requested for Telemetry/MedSurg (Inpatient). Status is Inpatient Admission. Condition is Stable. Problem is new. Symptoms have improved. 7 09:12 08:24 08/19/2020 06:36 Hospitalization Ordered by Mika Pinzon DO for Inpatient 7 Admission. Preliminary diagnosis is Coronavirus infection, unspecified; Hypoxia. Bed requested for Telemetry/MedSurg (Inpatient). Status is Inpatient Admission. Condition is Stable. Problem is new. Symptoms have improved. dw
--- NOTE | 2020-08-19 06:37 | ER ---
Nurse's Notes [facility] Name: Dave Moreland Age: 80 yrs Sex: Male : 1940 Arrival Date: 08/19/2020 Time: 04:10 Bed 7 Private MD: Diagnosis: Coronavirus infection, unspecified;Hypoxia Presentation: 08/19 04:13 Chief complaint: EMS states: Pt with nausea, cough, SOB, fatigue and nausea that wh started yesterday. Pt also with diarrhea. Pt stated tested positive for covid. Coronavirus screen: Client denies travel out of the [place] in the last 14 days. cough unrelated to allergies, difficulty breathing, fatigue, shortness of breath, Client presents with at least one sign or symptom that may indicate coronavirus-19. Standard/surgical mask placed on the client. Ebola Screen: Patient negative for fever greater than or equal to 101.5 degrees Fahrenheit, and additional compatible Ebola Virus Disease symptoms Patient denies exposure to infectious person. Risk Assessment: Do you want to hurt yourself or someone else? Patient reports no desire to harm self or others. Onset of symptoms was August 19, 2020. 04:13 Method Of Arrival: EMS: [facility] 04:13 Acuity: CLARK 3 wh 04:17 Care prior to arrival: Medication(s) given: Normal saline infusion, 500 mL, zofran 4 wh mg, IV initiated. 20 GA, in the left antecubital area. 04:18 Initial Sepsis Screen: Does the patient meet any 2 criteria? No. Patient's initial sepsis screen is negative. Does the patient have a suspected source of infection? Yes: Other: Cough. Triage Assessment: 04:19 Respiratory: Reports shortness of breath cough that is Onset: The symptoms/episode wh began/occurred yesterday, the patient reports symptoms have resolved. Historical: - Allergies: 04:16 Codeine; wh - PMHx: 04:16 Diabetes - NIDDM; GERD; Hyperlipidemia; Hypertension; Myocardial infarction; prostate wh problems; - Immunization history:: Adult Immunizations up to date. - Social history:: Smoking status: Patient/guardian denies using. Screenin:16 Abuse screen: Denies threats or abuse. Denies injuries from another. Nutritional wh screening: No deficits noted. Tuberculosis screening: No symptoms or risk factors identified. Fall Risk Fall in past 12 months (25 points). Assessment: 04:39 General: Appears in no apparent distress. Behavior is calm, cooperative, appropriate wh for age. Pain: Denies pain. Neuro: Level of Consciousness is awake, alert, obeys commands, Oriented to person, place, time, situation, Appropriate for age. Cardiovascular: Heart tones S1 S2 Rhythm is sinus rhythm. Respiratory: Reports shortness of breath cough that is Airway is patent Respiratory effort is even, unlabored, Respiratory pattern is regular, symmetrical, Breath sounds with rhonchi. GI: Abdomen is round non-distended. : No signs and/or symptoms were reported regarding the genitourinary system. EENT: No signs and/or symptoms were reported regarding the EENT system. Derm: Skin is intact, is healthy with good turgor, Skin is pink, warm \T\ dry. normal. Musculoskeletal: Circulation, motion, and sensation intact. 07:33 Reassessment: Patient appears in no apparent distress at this time. No changes from jl7 previously documented assessment. Patient and/or family updated on plan of care and expected duration. Pain level reassessed. Patient is alert, oriented x 3, equal unlabored respirations, skin warm/dry/pink. Vital Signs: 04:18 BP 132 / 77; Pulse 75; Resp 18; Temp 98.2; Pulse Ox 98% on R/A; Weight 81.65 kg; Height wh 5 ft. 10 in. (177.80 cm); 07:00 BP 125 / 72; Pulse 70; Resp 18; Pulse Ox 98% on 2 lpm NC; mg2 08:00 BP 109 / 72; Pulse 75; Resp 18; Temp 98.9; Pulse Ox 97% 2 lpm ; jl7 09:00 BP 138 / 75; Pulse 74; Resp 19; Pulse Ox 98% on 2 lpm NC; jl7 04:18 Body Mass Index 25.83 (81.65 kg, 177.80 cm) ED Course: 04:10 Patient arrived in ED. cl3 04:10 Ashu Stone MD is Attending Physician. mh7 04:13 Adilene Paige, RN is Primary Nurse. wh 04:15 Triage completed. wh 04:37 Patient has correct armband on for positive identification. Placed in gown. Bed in low wh position. Call light in reach. Side rails up X 1. satellite project site monitor on. Pulse ox on. NIBP on. 04:40 Arm band placed on right wrist. 04:40 Maintain EMS IV. Dressing intact. Good blood return noted. Site clean \T\ dry. 04:44 XRAY Chest (1 view) In Process Unspecified. EDMS 06:35 Mika Pinzon DO is Hospitalizing Provider. [facility] 06:47 No provider procedures requiring assistance completed. Inserted saline lock: 20 gauge mg2 in right wrist, using aseptic technique. Blood collected. 07:00 Notified ED physician of a critical lab result(s). lactate of 2.1 Dr Stone notified. bb 07:10 Report given to Destiny RN. mg2 07:34 Primary Nurse role handed off by Adilene Paige RN jl7 07:34 Kevin Barclay RN is Primary Nurse. [facility] 09:01 Patient admitted, IV remains in place. intact, No redness/swelling at site. jl7 Administered Medications: 04:58 Drug: Albuterol HFA Inhaler 2 puffs Route: Inhalation; 07:00 Follow up: Response: No adverse reaction [facility] 05:34 Drug: NS 0.9% 500 ml Route: IV; Rate: bolus; Site: left forearm; 07:00 Follow up: Response: No adverse reaction; IV Status: Completed infusion; IV Intake: jl7 500ml 06:47 Drug: SOLU-Medrol 125 mg Route: IVP; Site: right hand; [facility] 07:33 Follow up: Response: No adverse reaction jl Intake: 07:00 IV: 500ml; Total: 500ml. jl7 Outcome: 06:36 Decision to Hospitalize by Provider. [facility] 09:00 Admitted to Tele accompanied by tech, via wheelchair, room 431, with chart, Report jl7 called to EVETTE Ceballos 09:00 Condition: stable 09:00 Discharge instructions given to patient, family, Instructed on the need for admit, Demonstrated understanding of instructions. 09:12 Patient left the ED. jl7 Signatures: Dispatcher [employer] EDMS Kacey Johnson RN RN bb Leal, Jahala, RN RN jl7 Habalo, Winsy, RN RN Km Bell RN RN [facility] Eusebio, Charde cl3 Ashu Stone MD MD mh7 Corrections: (The following items were deleted from the chart) 04:40 04:19 Respiratory: Reports shortness of breath cough that is Onset: The wh symptoms/episode began/occurred yesterday, the patient has mild shortness of breath wh
[2020-08-19] MEDS ORDERED: METHYLPREDNISOLONE 125 MG INJ ONE (07:06)
[2020-08-19] MEDS ORDERED: ACETAMINOPHEN 500 MG TAB PO PRN (09:28)
[2020-08-19] MEDS: THIAMINE HCL 100 MG TABLET PO SCH ×2 (09:28→20:05)
[2020-08-19] MEDS: LACTOBACILLUS/ACIDOPHILUS TAB PO SCH ×2 (09:28→20:04)
[2020-08-19] MEDS ORDERED: ONDANSETRON 4 MG/2 ML VIAL IV PRN (09:28)
[2020-08-19 09:55] VITALS: BMI 25.7
[2020-08-19 10:16] LABS: C-Reactive Protein 8.15 mg/L (<3.00); Ferritin 83.5 ng/mL (26-388)
--- NOTE | 2020-08-19 10:24 | RAD REPORT ---
EXAM DESCRIPTION: RAD - Chest Single View - 08/19/2020 4:44 am CLINICAL HISTORY: The patient is 80 years old and is Male; SOB TECHNIQUE: Frontal view of the chest. COMPARISON: No relevant prior studies available. FINDINGS: LUNGS: Unremarkable. No consolidation. PLEURAL SPACE: Unremarkable. No pneumothorax. HEART: Unremarkable. No cardiomegaly. MEDIASTINUM: Unremarkable. BONES/JOINTS: Minimal degenerative change of the bones is noted. IMPRESSION: No acute cardiopulmonary process. Electronically signed by: Mable Valentin MD 08/19/2020 5:08 AM POKER SUPERVISOR Due to temporary technical issues with the PACS/Fluency reporting system, reports are being signed by the in house radiologist without review as a courtesy to ensure prompt reporting. The interpreting r adiologist is fully responsible for the content of the report. Electronically signed by: Mable Valentin MD 08/19/2020 5:08 AM POKER SUPERVISOR
[2020-08-19] MEDS: VITAMIN D 1000 UNIT TAB PO SCH (11:06)
[2020-08-19] MEDS: GLIMEPIRIDE 2 MG TABLET PO SCH ×2 (11:06→16:50)
[2020-08-19] MEDS: CITALOPRAM 10 MG TABLET PO SCH (11:07)
[2020-08-19] MEDS: ASCORBIC ACID 500 MG TABLET PO SCH ×3 (11:07→20:04)
[2020-08-19] MEDS: ASPIRIN 81 MG CHEWABLE TABLET PO SCH (11:07)
[2020-08-19] MEDS: lisinopriL 20 MG TAB PO SCH (11:08)
[2020-08-19] MEDS: ZINC SULFATE 220 MG CAP PO SCH (11:08)
[2020-08-19] MEDS: ENOXAPARIN 40 MG/0.4 ML SQ SCH (11:09)
[2020-08-19] MEDS: METHYLPREDNISOLONE 125 MG INJ IV SCH ×3 (11:09→20:04)
[2020-08-19] MEDS: INSULIN -REGULAR HUMAN 50 UNIT/0.5 ML ML SQ SCH ×4 (11:22→20:41)
--- NOTE | 2020-08-19 13:16 | P.HP ---
Certification for Inpatient Patient admitted to: Observation With expected LOS: <2 Midnights Patient will require the following post-hospital care: Other (Home oxygen) Practitioner: I am a practitioner with admitting privileges, knowledge of patient current condition, hospital course, and medical plan of care. Services: Services provided to patient in accordance with Admission requirements found in Title 42 Section 412.3 of the Code of Federal Regulations Patient History Date of Service: 08/19/20 Primary Care Provider: Dr. Geiger([facility]); Cardiology-Dr. Carrion Reason for admission: Shortness of breath History of Present Illness: 80-year-old male with history of diabetes, hypertension, CAD and GERD. Patient presented with increasing cough, shortness of breath. Patient found to have desaturations in his oxygen in the emergency room. Patient required 2 L per nasal cannula. has COVID 19. Patient was recently treated by urgent care without any improvement. Patient denies any fever, chills. In the ER patient was evaluated. Patient currently on oxygen. Allergies codeine Allergy (Verified 03/17/19 11:14) Rash Home medications list reviewed: Yes Home Medications: Aspirin [Aspirin EC 81 MG] 81 mg PO DAILY 03/13/19 Finasteride [Proscar*] 5 mg PO DAILY 03/13/19 Pantoprazole [Protonix Tab*] 40 mg PO DAILY 03/13/19 lisinopriL [Prinivil*] 20 mg PO [id number] 03/13/19 Escitalopram Oxalate 10 mg PO DAILY 06/16/19 Cholecalciferol (Vitamin D3) [Vitamin D3] 1,000 unit PO DAILY 08/19/20 Glimepiride 1 mg PO DAILY 08/19/20 - Past Medical/Surgical History Has patient received pneumonia vaccine in the past: Yes Diabetic: No -: Diabetes mellitus type 2 -: Hypertension -: CAD -: BPH -: Depression -: Cardiac stent -: Hand surgery -: Cardiac catheterization Psychosocial/ Personal History: 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 - Family History Father -: Heart disease, Hypertension Mother -: Cancer Sister -: Cancer - Social History Smoking Status: Never smoker Alcohol use: No CD- Drugs: No Caffeine use: Yes Place of Residence: Home Review of Systems General: Weakness, Malaise, As per HPI Eyes: Unremarkable ENT: Nose Congestion Respiratory: Cough, Shortness of Breath, SOB with Excertion, As per HPI Cardiovascular: Unremarkable Gastrointestinal: Unremarkable Genitourinary: Unremarkable Musculoskeletal: Unremarkable Integumentary: Unremarkable Neurological: Unremarkable Lymphatics: Unremarkable Physical Examination - Vital Signs Temperature: 98.6 F Blood Pressure: 148/69 Pulse: 79 Respirations: 18 Pulse Ox (%): 98 - Physical Exam General: Alert, In no apparent distress, Oriented x3, Cooperative HEENT: Atraumatic Neck: Supple Respiratory: Other (Patient requiring 2 L per nasal can) Cardiovascular: Normal pulses, Regular rate/rhythm Gastrointestinal: Normal bowel sounds, No tenderness, No masses, No rebound, No guarding Musculoskeletal: No erythema, No tenderness, No warmth Integumentary: No tenderness/swelling, No erythema, No warmth, No cyanosis Neurological: Normal speech, Normal strength at 5/5 x4 extr, Normal tone, Normal affect - Studies Laboratory Data (last 24 hrs) 08/19/20 04:20: PT 11.3, INR 0.98 08/19/20 04:20: WBC 7.80, Hgb 12.1 L, Hct 35.9 L, Plt Count 164 08/19/20 04:20: Sodium 138, Potassium 4.0, BUN 19 H, Creatinine 1.12, Glucose 201 H, Magnesium 2.0, Total Bilirubin 0.3, AST 18, ALT 34, Alkaline Phosphatase 58 Assessment and Plan - Plan Impression: Dyspnea secondary to bilateral COVID 19 pneumonia Diabetes mellitus type 2 with hyperglycemia Hypertension CAD with prior stent GERD Depression Plan: Dyspnea secondary to bilateral COVID 19 pneumonia: Patient admitted for further evaluation and treatment. Will start IV steroids and supplementation. Patient deferred not take start ivermectin. Patient with mild symptoms therefore no need for Remdesivir. Will arrange for home oxygen at discharge. Consider discharge later today if oxygen can be arranged. Will teach on COVID. Will provide incentive spirometer. Encourage proning and ambulation. Continue monitor closely pre Diabetes mellitus type 2 with hyperglycemia: Continue with home medication. Will provide sliding scale. Monitor Accu-Cheks. Hypertension: Restart home medication of lisinopril CAD with prior stent: Continue with DVT prophylaxis. Continue aspirin. GERD: Will provide medication Depression: Continue home medication. Discharge Plan: Home Plan to discharge in: 48 Hours - Advance Directives Does patient have a Living Will: No Does patient have a Durable POA for Healthcare: No - Code Status/Comfort Care Code Status Assessed: Yes (Patient is full code) Time Spent Managing Pts Care (In Minutes): 55
[2020-08-19 13:52] LABS: Urine Appearance CLEAR; Urine Bilirubin NEGATIVE (NEG); Urine Blood NEGATIVE (NEG); Urine Color YELLOW; Urine Glucose 3+ (NEG); Urine Protein NEGATIVE (NEG); Urine Urobilinogen 0.2 mg/dL (0.2-1.0); Urine pH 5.5 (5.0-7.0)
[2020-08-19 13:57] LABS: Urine Microscopic Reflex NO UMIC
[2020-08-19] MEDS ORDERED: IVERMECTIN 3 MG TABLET PO ONE (15:00)
--- NOTE | 2020-08-19 17:08 | EKG ---
Test Date: 2020-08-19 Test Time: 04:16:11 Sandblast Or Shotblast Equipment Tender: JASPER MEASUREMENT RESULTS: Intervals: Rate: 75 [place]: QRSD: 94 QT: 392 QTc: 437 [place]: P: AK: QRS: -49 T: 52 INTERPRETIVE STATEMENTS: Atrial fibrillation Left axis deviation Abnormal ECG Compared to ECG 04/01/2020 18:09:17 Myocardial infarct finding no longer present Electronically Signed On 08-19-20 17:06:03 [employer] by Doroteo Carrion
[2020-08-19] MEDS ORDERED: FINASTERIDE 5 MG TAB PO SCH (21:00)
[2020-08-19] MEDS ORDERED: MELATONIN 5 MG TABLET PO SCH (21:00)
[2020-08-20 00:15] VITALS: O2SAT 95
[2020-08-20 04:37] LABS: Basophils % 0.1 % (0-1.3); Hematocrit 39.6 % (39.6-49.0); Lymphocytes % 8.6 % (15.3-44.8); MPV 9.7 fL (7.6-11.3); RBC Red Blood Cell Count 4.41 M/uL (4.33-5.43)
[2020-08-20 04:48] LABS: Albumin 3.3 g/dL (3.4-5.0); Bilirubin Total 0.2 mg/dL (0.2-1.0); Magnesium 2.5 mg/dL (1.8-2.4); Protein, Total 6.9 g/dL (6.4-8.2)
[2020-08-20 05:16] LABS: Blood Morphology Comment NOT SEEN (NOT SEEN); Platelet Estimate ADEQ
[2020-08-20] MEDS ORDERED: PANTOPRAZOLE 40MG TABLET PO SCH (06:30)
--- NOTE | 2020-08-20 07:24 | P.DS ---
Admission Date: 08/19/20 Discharge Date: 08/20/20 Primary Care Provider: Dr. Geiger([facility]); Cardiology-Dr. Carrion Disposition: ROUTINE DISCHARGE Discharge Condition: GOOD Reason for Admission: Shortness of breath Consultations: Pulmonary-Dr. Francois Procedures: COVID: Positive Influenza: Negative CXR: COMPARISON: No relevant prior studies available. FINDINGS: LUNGS: Unremarkable. No consolidation. PLEURAL SPACE: Unremarkable. No pneumothorax. HEART: Unremarkable. No cardiomegaly. MEDIASTINUM: Unremarkable. BONES/JOINTS: Minimal degenerative change of the bones is noted. IMPRESSION: No acute cardiopulmonary process. Medical Problem List: Dyspnea secondary to bilateral COVID 19 pneumonia Diabetes mellitus type 2 with hyperglycemia Hypertension CAD with prior stent GERD Depression Brief History of Present Illness: 80-year-old male with history of diabetes, hypertension, CAD and GERD. Patient presented with increasing cough, shortness of breath. Patient found to have desaturations in his oxygen in the emergency room. Patient required 2 L per nasal cannula. has COVID 19. Patient was recently treated by urgent care without any improvement. Patient denies any fever, chills. In the ER patient was evaluated. Patient currently on oxygen. Hospital Course: Patient presented with dyspnea secondary to bilateral COVID 19 pneumonia. Patient was admitted for treatment. Patient received IV steroids and ivermectin. Patient responded very quickly and appropriately. Shortness of breath improved. At discharge patient will continue with prednisone 10 mg 1 pill twice daily for 5 days then 1 pill once daily for 5 days. The patient will also continue with supplementation including vitamin-C 500 mg 3 times a day, vitamin-D 2000 units daily, melatonin 5 mg at bedtime, zinc 220 mg daily, and thiamine 100 mg 1 pill twice daily. The patient will also continue with lactobacillus twice daily. Patient will continue with incentive spirometer at home. Recommend to continue proning, fase mask use, hand washing and social distancing. Patient will continue with CDC guidelines on the COVID 19 education and isolation. Patient does not require oxygen at discharge. This will be verified prior to discharge. Recommend follow up with pulmonology in 1 week to follow up this hospitalization. Recommend follow up with his PCP in 1 week to follow up this hospitalization. Patient with diabetes mellitus type 2. Patient takes Amaryl 1 mg daily. Hyperglycemia was noted as the patient was given IV Solu-Medrol. This will need to be monitored closely. If required patient can increase Amaryl to twice daily if blood sugars remain above 200. This may be required as the patient well be on prednisone for 10 days. Recommend to maintain blood sugar less than 140 fasting and less than 200 after meals. If blood sugars remain above 200 he may call his PCP for further recommendation. Blood sugar should improve once prednisone has been discontinued. Patient with hypertension. This has remained stable. At discharge patient will continue with lisinopril 20 mg daily. Recommend to maintain blood pressure less than 130/80. Further adjustment can be done by his PCP. Patient with history of CAD and prior stent. At discharge patient will continue with aspirin 81 mg daily. Patient with history of GERD. At discharge patient will continue with Protonix 40 mg daily. Patient with depression. At discharge patient will continue with Celexa 10 mg daily. Vital Signs/Physical Exam: Temp Pulse Resp BP Pulse Ox 97.5 F 64 16 128/60 95 08/20/20 04:00 08/20/20 04:00 08/20/20 04:00 08/20/20 04:00 08/20/20 04:00 General: Alert, In no apparent distress, Oriented x3, Cooperative HEENT: Atraumatic Neck: Supple Respiratory: Clear to auscultation bilaterally, Normal air movement Cardiovascular: Normal pulses, Regular rate/rhythm Gastrointestinal: Normal bowel sounds, Soft and benign, Non-distended, No tenderness, No masses, No rebound, No guarding Neurological: Normal speech, Normal strength at 5/5 x4 extr, Normal tone, Normal affect Laboratory Data at Discharge: WBC 11.30 K/uL (4.3-10.9) H D 08/20/20 04:12 Hgb 13.3 g/dL (13.6-17.9) L 08/20/20 04:12 Hct 39.6 % (39.6-49.0) 08/20/20 04:12 Plt Count 217 K/uL (152-406) D 08/20/20 04:12 PT 11.3 SECONDS (9.5-12.5) 08/19/20 04:20 INR 0.98 08/19/20 04:20 Sodium 142 mmol/L (136-145) 08/20/20 04:12 Potassium 4.0 mmol/L (3.5-5.1) 08/20/20 04:12 BUN 24 mg/dL (7-18) H 08/20/20 04:12 Creatinine 1.24 mg/dL (0.55-1.3) 08/20/20 04:12 Glucose 286 mg/dL (74-106) H 08/20/20 04:12 Magnesium 2.5 mg/dL (1.8-2.4) H D 08/20/20 04:12 Total Bilirubin 0.2 mg/dL (0.2-1.0) 08/20/20 04:12 AST 21 U/L (15-37) 08/20/20 04:12 ALT 42 U/L (12-78) 08/20/20 04:12 Alkaline Phosphatase 68 U/L (45-117) 08/20/20 04:12 Home Medications: Aspirin [Aspirin EC 81 MG] 81 mg PO DAILY 03/13/19 Finasteride [Proscar*] 5 mg PO DAILY 03/13/19 Pantoprazole [Protonix Tab*] 40 mg PO DAILY 03/13/19 lisinopriL [Prinivil*] 20 mg PO [id number] 03/13/19 Escitalopram Oxalate 10 mg PO DAILY 06/16/19 Glimepiride 1 mg PO DAILY 08/19/20 Ascorbic Acid [Vitamin C*] 500 mg PO TID #90 tablet 08/20/20 Cholecalciferol (Vitamin D3) [Vitamin D 1000 Iu Tab*] 2,000 unit PO DAILY #60 tab 08/20/20 Lactobacillus Acidophilus [Acidophilus Lactobacilli] 1 each PO BID #30 capsule 08/20/20 Melatonin 5 mg PO BEDTIME #30 tablet 08/20/20 Thiamine HCl [Vitamin B-1*] 100 mg PO BID #60 tablet 08/20/20 Zinc Sulfate [Zinc Sulfate*] 220 mg PO DAILY #30 cap 08/20/20 predniSONE [Deltasone*] 10 mg PO SEECOM #15 tab 08/20/20 New Medications: Lactobacillus Acidophilus [Acidophilus Lactobacilli] 1 each PO BID #30 capsule predniSONE [Deltasone*] 10 mg PO SEECOM #15 tab Melatonin 5 mg PO BEDTIME #30 tablet Thiamine HCl [Vitamin B-1*] 100 mg PO BID #60 tablet Ascorbic Acid [Vitamin C*] 500 mg PO TID #90 tablet Cholecalciferol (Vitamin D3) [Vitamin D 1000 Iu Tab*] 2,000 unit PO DAILY #60 tab Zinc Sulfate [Zinc Sulfate*] 220 mg PO DAILY #30 cap Physician Discharge Instructions: Patient presented with dyspnea secondary to bilateral COVID 19 pneumonia. Patient was admitted for treatment. Patient received IV steroids and ivermectin. Patient responded very quickly and appropriately. Shortness of breath improved. At discharge he is without significant shortness of breath and moving appropriately. At discharge patient will continue with prednisone 10 mg 1 pill twice daily for 5 days then 1 pill once daily for 5 days. The patient will also continue with supplementation including vitamin-C 500 mg 3 times a day, vitamin-D 2000 units daily, melatonin 5 mg at bedtime, zinc 220 mg daily, and thiamine 100 mg 1 pill twice daily. The patient will also continue with lactobacillus twice daily. Patient will continue with incentive spirometer at home. Recommend to continue proning, fase mask use, hand washing and social distancing. Patient will continue with CDC guidelines on the COVID 19 education and isolation. Patient does not require oxygen at discharge. This will be verified prior to discharge. Recommend follow up with pulmonology in 1 week to follow up this hospitalization. Recommend follow up with his PCP in 1 week to follow up this hospitalization. Patient with diabetes mellitus type 2. Patient takes Amaryl 1 mg daily. Hyperglycemia was noted as the patient was given IV Solu-Medrol. This will need to be monitored closely. If required patient can increase Amaryl to twice daily if blood sugars remain above 200. This may be required as the patient well be on prednisone for 10 days. Recommend to maintain blood sugar less than 140 fasting and less than 200 after meals. If blood sugars remain above 200 he may call his PCP for further recommendation. Blood sugar should improve once prednisone has been discontinued. Patient with hypertension. This has remained stable. At discharge patient will continue with lisinopril 20 mg daily. Recommend to maintain blood pressure less than 130/80. Further adjustment can be done by his PCP. Patient with history of CAD and prior stent. At discharge patient will continue with aspirin 81 mg daily. Patient with history of GERD. At discharge patient will continue with Protonix 40 mg daily. Patient with depression. At discharge patient will continue with Celexa 10 mg daily. Diet: ADA Activity: Ad augustine Followup: Unknown,U [Primary Care Provider] - Time spent managing pt's care (in minutes): 55
[2020-08-20 07:46] VITALS: BP 124/86; TEMP 98.1
[2020-08-20] MEDS: VITAMIN D 1000 UNIT TAB PO SCH (08:20)
[2020-08-20] MEDS: GLIMEPIRIDE 2 MG TABLET PO SCH (08:21)
[2020-08-20] MEDS: THIAMINE HCL 100 MG TABLET PO SCH (08:21)
[2020-08-20] MEDS: ZINC SULFATE 220 MG CAP PO SCH (08:21)
[2020-08-20] MEDS: LACTOBACILLUS/ACIDOPHILUS TAB PO SCH (08:21)
[2020-08-20] MEDS: ASCORBIC ACID 500 MG TABLET PO SCH (08:21)
[2020-08-20] MEDS: ASPIRIN 81 MG CHEWABLE TABLET PO SCH (08:21)
[2020-08-20] MEDS: lisinopriL 20 MG TAB PO SCH (08:22)
[2020-08-20] MEDS: CITALOPRAM 10 MG TABLET PO SCH (08:22)
[2020-08-20] MEDS: INSULIN -REGULAR HUMAN 50 UNIT/0.5 ML ML SQ SCH (08:22)
[2020-08-20] MEDS: ENOXAPARIN 40 MG/0.4 ML SQ SCH (08:23)
[2020-08-20] MEDS ORDERED: predniSONE 10 MG TAB PO SCH (09:00)
[2020-08-20] MEDS ORDERED: ESCITALOPRAM 20 MG TAB PO SCH (09:00)
== END 2020-08-20 10:09 | disposition home or self-care (01) ==
LOC: ER 04:08 → ERHOLD 06:53 → 4TH 09:00
PROVIDERS: ADMIT Family Medicine; ATTEND Family Medicine
DX: U07.1 COVID-19 (principal); J12.82 Pneumonia due to coronavirus disease 2019; E11.65 Type 2 diabetes mellitus with hyperglycemia; I10 Essential (primary) hypertension; I25.10 Atherosclerotic heart disease of native coronary artery without angina pectoris; Z95.5 Presence of coronary angioplasty implant and graft; K21.9 Gastro-esophageal reflux disease without esophagitis; F32.9 Major depressive disorder, single episode, unspecified; N40.0 Benign prostatic hyperplasia without lower urinary tract symptoms; Z79.84 Long term (current) use of oral hypoglycemic drugs
CPT/HCPCS: 96361; 93005; 87040 ×2; 85025 ×2; 80048; 36415 ×2; 83735 ×2; 85610; 82947 ×4; 85379; 80076; 83605 ×2; 81003; 83036; 84484; 82728; 80053; 84145; 83880; 0240U; 86140; 71045; 96374; 99285; J1650 ×2; J7040; J2930 ×4; G0378; J7512

== ENCOUNTER 2020-08-29 16:34 | Inpatient (IN) | payer OTHER ==
--- OUTSIDE RECORDS SUMMARY | 2020-08-29 16:36 | XMS REPORT | Continuity of Care Document ---
:[address] [facility] t Address [address] [place] [address] Care Team Providers Name Role Phone Freedom FOX, A Attending Clinician Problems This patient has no known problems. Allergies, Adverse Reactions, Alerts This patient has no known allergies or adverse reactions. Medications This patient has no known medications. Procedures This patient has no known procedures. Encounters Start End Encounter Admission Attending Care Care Encounter Source Date/Time Date/Time Type Type Clinicians Facility Department ID 2020-08-20 2020-08-20 Telephone TRESA Loja [id number] 00:00:00 00:00:00 [facility] [id number] [place] [id number] [facility] [phone] [address] 2020-07-23 2020-07-23 Telephone TRESA Loja [id number] 00:00:00 00:00:00 [facility] [id number] [place] [id number] [facility] [phone] [phone] 2020-07-19 2020-07-19 Office TRESA Loja [id number] 08:01:11 10:21:48 Visit [facility] [id number] [place] [id number] [facility] [phone] [address]al [phone] Results This patient has no known results.
[2020-08-29 17:29] LABS: Basophils % 0.1 % (0-1.3); Hematocrit 39.8 % (39.6-49.0); MPV 8.9 fL (7.6-11.3); RBC Red Blood Cell Count 4.44 M/uL (4.33-5.43)
[2020-08-29] MEDS ORDERED: ONDANSETRON 4 MG/2 ML VIAL ONE ×2 (17:44→23:04)
[2020-08-29] MEDS ORDERED: FAMOTIDINE 20 MG/2 ML VIAL IV ONE (17:44)
[2020-08-29 18:03] LABS: ALT/SGPT 28 U/L (12-78); AST/SGOT 9 U/L (15-37); Albumin 2.9 g/dL (3.4-5.0); Alkaline Phosphatase 72 U/L (45-117); BUN Blood Urea Nitrogen 23 mg/dL (7-18); Bicarbonate 25 mmol/L (21-32); Bilirubin Direct < 0.1 mg/dL (0-0.2); Bilirubin Total 0.3 mg/dL (0.2-1.0); Glucose Level 271 mg/dL (74-106); Lipase 1956 U/L (73-393); Potassium 3.8 mmol/L (3.5-5.1); Protein, Total 6.6 g/dL (6.4-8.2); Sodium Level 136 mmol/L (136-145)
[2020-08-29 18:54] LABS: Urine Bacteria <20 /HPF (NONE SEEN); Urine RBC NONE SEEN /HPF (NONE SEEN)
--- NOTE | 2020-08-29 18:54 | RAD REPORT ---
EXAM DESCRIPTION: CT - Abdomen Pelvis W Contrast - 08/29/2020 6:38 pm CLINICAL HISTORY: Abdominal pain COMPARISON: 2019 TECHNIQUE: Computed axial tomography of the abdomen pelvis was obtained. 100 cc Isovue-300 was admin istered intravenously. Oral contrast was not requested which limits evaluation of bowel. All CT scans are performed using dose optimization technique as appropriate and may include automated exposure control or mA/KV adjustment according to patient size. FINDINGS: Fatty liver. Cholecystectomy. Mild to moderate ground-glass opacities right middle and right lower lobes. Spleen, pancreas, left kidney and adrenals are unremarkable. Right pelvic kidney. Normal appendix. There is no evidence of diverticulitis. Small inguinal hernias contain IMPRESSION: Mild to moderate ground-glass opacities right lung indicative of an alveolitis
--- NOTE | 2020-08-29 19:13 | EDPHYS ---
Physician Documentation [facility] Name: Dave Moreland Age: 80 yrs Sex: Male : 1940 Arrival Date: 08/29/2020 Time: 16:41 Bed 20 Private MD: ED Physician Jalil Silva HPI: 08/29 16:50 This 80 yrs old Male presents to ER via EMS with complaints of High Blood cp Sugar. 16:50 The patient or guardian reports hyperglycemia. Onset: The symptoms/episode cp began/occurred today. Associated signs and symptoms: Pertinent positives: nausea, Pertinent negatives: constipation, diarrhea. Current symptoms: In the emergency department the patient's symptoms are unchanged from the initial presentation, despite EMS interventions. Historical: - Allergies: 16:47 Codeine; bp - Home Meds: 16:47 metformin 500 mg Oral tab 1 tab daily [Active]; escitalopram oxalate 10 mg Oral tab 1 bp tab once daily [Active]; pantoprazole 40 mg Oral TbEC 1 tab once daily [Active]; lisinopril 20 mg Oral tab 1 tab once daily [Active]; finasteride 5 mg Oral tab 1 tab once daily [Active]; 21:03 aspirin 81 mg oral chew 1 tab once daily [Active]; Vitamin D3 oral oral 1 tab daily sf [Active]; - PMHx: 16:47 Diabetes - NIDDM; Hyperlipidemia; Hypertension; Myocardial infarction; prostate bp problems; GERD; - PSHx: 21:03 Heart stents; Cholecystectomy; Hernia repair; Disc surgery; sf - Immunization history:: Adult Immunizations up to date. - Social history:: Smoking status: Patient denies any tobacco usage or history of. ROS: 17:00 Constitutional: Negative for body aches, chills, fever, poor PO intake. cp 17:00 Respiratory: Negative for cough, shortness of breath, wheezing. 17:00 Eyes: Negative for injury, pain, redness, and discharge. cp 17:00 ENT: Negative for ear pain, sore throat, difficulty swallowing, difficulty handling secretions. 17:00 Cardiovascular: Negative for chest pain. 17:00 Abdomen/GI: Positive for abdominal pain, nausea, Negative for vomiting, diarrhea, constipation, black/tarry stool, rectal bleeding. 17:00 Back: Negative for radiated pain. 17:00 : Negative for urinary symptoms. 17:00 Neuro: Negative for altered mental status, headache, weakness. 17:00 All other systems are negative. Exam: 17:05 Constitutional: The patient appears in no acute distress, alert, awake, cp non-diaphoretic, non-toxic, well developed, well nourished. 17:05 Head/Face: Normocephalic, atraumatic. cp 17:05 Eyes: Periorbital structures: appear normal, Conjunctiva: normal, no exudate, no injection, Sclera: no appreciated abnormality, Lids and lashes: appear normal, bilaterally. 17:05 ENT: External ear(s): are unremarkable, Nose: is normal, Mouth: Lips: moist, Oral mucosa: moist, Posterior pharynx: Airway: no evidence of obstruction, patent. 17:05 Chest/axilla: Inspection: normal, Palpation: is normal, no crepitus, no tenderness. 17:05 Cardiovascular: Rate: normal, Rhythm: regular. 17:05 Respiratory: the patient does not display signs of respiratory distress, Respirations: normal, no use of accessory muscles, no retractions, labored breathing, is not present, Breath sounds: are clear throughout, no decreased breath sounds, no stridor, no wheezing. 17:05 Abdomen/GI: Inspection: abdomen appears normal, Bowel sounds: active, all quadrants, Palpation: soft, in all quadrants, mild abdominal tenderness, in the epigastric area, rebound tenderness, is not appreciated, voluntary guarding, is elicited in the epigastric area. 17:05 Back: pain, is absent, ROM is normal. 17:05 Neuro: Orientation: to person, place \\T\\ time. Mentation: is normal. Vital Signs: 16:50 BP 134 / 71; Pulse 63; Resp 17; Temp 98; Pulse Ox 96% ; bp 19:00 BP 117 / 81; Pulse 66; Resp 16; Pulse Ox 98% ; sf 19:30 BP 146 / 88; Pulse 57; Resp 16; Pulse Ox 96% ; sf 20:00 BP 147 / 71; Pulse 56; Resp 16; Pulse Ox 98% ; sf 21:00 BP 121 / 108; Pulse 65; Resp 16; Pulse Ox 96% ; sf 22:34 Weight 81.65 kg; Height 5 ft. 10 in. (177.80 cm); sf 22:34 Body Mass Index 25.83 (81.65 kg, 177.80 cm) sf MDM: 16:44 Patient medically screened. [facility] 19:15 Data reviewed: vital signs, nurses notes, lab test result(s), radiologic studies, CT cp scan, and as a result, I will admit patient. 19:15 Counseling: I had a detailed discussion with the patient and/or guardian regarding: the cp historical points, exam findings, and any diagnostic results supporting the discharge/admit diagnosis, lab results, radiology results, the need for further work-up and treatment in the hospital. Response to treatment: the patient's symptoms have mildly improved after treatment. Physician consultation: Jacques PITTS was called at 19:10, was contacted at 19:10, regarding admission, to the medical/surgical unit. patient's condition. 08/29 16:49 Order name: Basic Metabolic Panel 08/29 16:49 Order name: CBC with Diff 08/29 16:49 Order name: Hepatic Function 08/29 16:49 Order name: Lipase 08/29 16:49 Order name: Urine Microscopic Only 08/29 17:37 Order name: CBC with Automated Diff; Complete Time: 17:41 EDWV 08/29 17:41 Interpretation: Normal except: WBC 7.60; HGB 13.2; IGGY% 77.2; LYM% 13.0. 08/29 18:04 Order name: Basic Metabolic Panel; Complete Time: 19:03 EDWV 08/29 19:03 Interpretation: Normal except: GLUC 271; BUN 23; GFR 84. 08/29 18:04 Order name: Liver (Hepatic) Function; Complete Time: 19:03 EDWV 08/29 19:04 Interpretation: Normal except: AST 9; ALB 2.9; GLOB 3.7; A/G 0.8. 08/29 18:04 Order name: Lipase; Complete Time: 19:03 EDWV 08/29 19:06 Interpretation: Abnormal: LIP 1956. 08/29 18:19 Order name: Urine Dipstick--Ancillary (enter results) 08/29 18:54 Order name: Urine Microscopic Only; Complete Time: 19:03 EDWV 08/29 19:46 Order name: Urine Dipstick-Ancillary [facility] 08/29 20:34 Order name: COVID-19 : Document "Date of Symptom Onset" if Symptomatic. mw2 08/29 21:26 Order name: CORONAVIRUS EDWV 08/29 16:49 Order name: IV Saline Lock; Complete Time: 17:21 cp 08/29 16:49 Order name: Labs collected and sent; Complete Time: 17:21 cp 08/29 17:42 Order name: CT Abd/Pelvis - IV Contrast Only 08/29 18:54 Order name: CT; Complete Time: 19:03 EDMS 08/29 19:04 Interpretation: Report reviewed. 08/29 22:28 Order name: SARS-COV-2 RT PCR EDMS 08/30 00:21 Order name: Glucose, Ancillary Testing EDMS 08/30 06:03 Order name: Comprehensive Metabolic Panel EDMS 08/30 06:07 Order name: CBC with Automated Diff EDMS 08/30 08:42 Order name: Glucose, Ancillary Testing EDMS 08/30 08:43 Order name: Glucose, Ancillary Testing EDMS 08/30 13:11 Order name: Lipid Profile EDWV 08/30 13:11 Order name: Lipase EDWV 08/30 14:21 Order name: Glucose, Ancillary Testing EDWV 08/29 16:49 Order name: Urine Dipstick-Ancillary (obtain specimen); Complete Time: 18:16 cp Administered Medications: 17:15 Drug: Zofran (Ondansetron) 4 mg Route: IVP; Site: right antecubital; bp 19:52 Follow up: Response: No adverse reaction; Marked relief of symptoms sf 17:15 Drug: Pepcid 20 mg Route: IVP; Site: right antecubital; bp 19:52 Follow up: Response: No adverse reaction; Marked relief of symptoms sf 17:15 Drug: NS 0.9% 500 ml Route: IV; Rate: 500 ml/hr; Site: right antecubital; bp 22:01 Follow up: IV Status: Completed infusion; IV Intake: 500ml sf 22:02 Follow up: Response: No adverse reaction sf Disposition: 08/29/20 19:12 Hospitalization ordered by Anderson Mancera for Inpatient Admission. Preliminary diagnosis are Acute pancreatitis, Diabetes mellitus due to underlying condition with hyperglycemia. - Bed requested for Telemetry/MedSurg (Inpatient). - Status is Inpatient Admission. eb - Condition is Stable. - Problem is new. - Symptoms have improved. Addendum: 09/01/2020 08:13 Co-signature as Attending Physician, Jalil Silva MD I agree with the assessment and c galindo plan of care. Signatures: Dispatcher [employer] EDJalil Peters MD MD cha Page, Corey, PA PA cp Chet Hernandez, RN RN bp Verónica Sadler mw2 Marcia Odom Jake Ha RN RN sf Corrections: (The following items were deleted from the chart) 08/29 21:03 16:47 Home Meds: aspirin 325 mg oral TbEC; bp sf 21:35 19:12 Hospitalization Ordered by Anderson Mancera for Inpatient Admission. Preliminary mw2 diagnosis is Acute pancreatitis; Diabetes mellitus due to underlying condition with hyperglycemia. Bed requested for Telemetry/MedSurg (observation). Status is Inpatient Admission. Condition is Stable. Problem is new. Symptoms have improved. cp 08/30 15:44 08/29 21:35 08/29/2020 19:12 Hospitalization Ordered by Anderson Mancera for Inpatient eb Admission. Preliminary diagnosis is Acute pancreatitis; Diabetes mellitus due to underlying condition with hyperglycemia. Bed requested for [facility] ER HOLD. Status is Inpatient Admission. Condition is Stable. Problem is new. Symptoms have improved. mw2 08/30 16:54 15:44 08/29/2020 19:12 Hospitalization Ordered by [facility] for Inpatient eb Admission. Preliminary diagnosis is Acute pancreatitis; Diabetes mellitus due to underlying condition with hyperglycemia. Bed requested for Telemetry/MedSurg (Inpatient). Status is Inpatient Admission. Condition is Stable. Problem is new. Symptoms have improved. eb
--- NOTE | 2020-08-29 19:13 | ER ---
Nurse's Notes [facility] Name: Dave Moreland Age: 80 yrs Sex: Male : 1940 Arrival Date: 08/29/2020 Time: 16:41 Bed 20 Private MD: Diagnosis: Acute pancreatitis;Diabetes mellitus due to underlying condition with hyperglycemia Presentation: 08/29 16:42 Chief complaint: EMS states: BLOOD SUGAR MEASURE 379 AT HOME. Coronavirus screen: bp Client reports previous positive COVID test result. Date of collection: August 16, 2020. Ebola Screen: No symptoms or risks identified at this time. Initial Sepsis Screen: Does the patient meet any 2 criteria? No. Patient's initial sepsis screen is negative. Does the patient have a suspected source of infection? No. Patient's initial sepsis screen is negative. Risk Assessment: Do you want to hurt yourself or someone else? Patient reports no desire to harm self or others. Onset of symptoms is unknown. 16:42 Method Of Arrival: EMS: [facility] bp 16:42 Acuity: CLARK 3 bp Triage Assessment: 16:50 General: Appears in no apparent distress. comfortable, Behavior is cooperative, bp appropriate for age, anxious. Pain: Denies pain. EENT: No deficits noted. Neuro: No deficits noted. Cardiovascular: No deficits noted. Respiratory: No deficits noted. GI: No signs and/or symptoms were reported involving the gastrointestinal system. : No signs and/or symptoms were reported regarding the genitourinary system. Derm: No deficits noted. Musculoskeletal: No deficits noted. Historical: - Allergies: 16:47 Codeine; bp - Home Meds: 16:47 metformin 500 mg Oral tab 1 tab daily [Active]; escitalopram oxalate 10 mg Oral tab 1 bp tab once daily [Active]; pantoprazole 40 mg Oral TbEC 1 tab once daily [Active]; lisinopril 20 mg Oral tab 1 tab once daily [Active]; finasteride 5 mg Oral tab 1 tab once daily [Active]; 21:03 aspirin 81 mg oral chew 1 tab once daily [Active]; Vitamin D3 oral oral 1 tab daily sf [Active]; - PMHx: 16:47 Diabetes - NIDDM; Hyperlipidemia; Hypertension; Myocardial infarction; prostate bp problems; GERD; - PSHx: 21:03 Heart stents; Cholecystectomy; Hernia repair; Disc surgery; sf - Immunization history:: Adult Immunizations up to date. - Social history:: Smoking status: Patient denies any tobacco usage or history of. Screenin:50 Abuse screen: Denies threats or abuse. Denies injuries from another. Nutritional bp screening: No deficits noted. Tuberculosis screening: No symptoms or risk factors identified. Fall Risk None identified. Assessment: 16:50 General: SEE TRIAGE NOTE. bp 19:51 General: Appears in no apparent distress. comfortable, Behavior is calm, cooperative, sf appropriate for age. Pain: Denies pain. Neuro: No deficits noted. Level of Consciousness is awake, alert, obeys commands, Oriented to person, place, time, situation. Cardiovascular: No deficits noted. Patient's skin is warm and dry. Respiratory: No deficits noted. Airway is patent Respiratory effort is even, unlabored, Respiratory pattern is regular, symmetrical. GI: No signs and/or symptoms were reported involving the gastrointestinal system. : No signs and/or symptoms were reported regarding the genitourinary system. Vital Signs: 16:50 BP 134 / 71; Pulse 63; Resp 17; Temp 98; Pulse Ox 96% ; bp 19:00 BP 117 / 81; Pulse 66; Resp 16; Pulse Ox 98% ; sf 19:30 BP 146 / 88; Pulse 57; Resp 16; Pulse Ox 96% ; sf 20:00 BP 147 / 71; Pulse 56; Resp 16; Pulse Ox 98% ; sf 21:00 BP 121 / 108; Pulse 65; Resp 16; Pulse Ox 96% ; sf 22:34 Weight 81.65 kg; Height 5 ft. 10 in. (177.80 cm); sf 22:34 Body Mass Index 25.83 (81.65 kg, 177.80 cm) sf ED Course: 16:41 Patient arrived in ED. bp 16:43 Jalil Bradford PA is PHCP. cp 16:43 Jalil Silva MD is Attending Physician. cp 16:43 Triage completed. bp 16:50 Arm band placed on. bp 17:16 Chet Hernandez, EVETTE is Primary Nurse. bp 17:20 Basic Metabolic Panel Sent. mh5 17:20 CBC with Diff Sent. mh5 17:20 Hepatic Function Sent. mh5 17:20 Lipase Sent. mh5 17:21 Initial lab(s) drawn, by me, sent to lab. Inserted saline lock: 22 gauge in right [facility] antecubital area, using aseptic technique. Blood collected. 17:21 Patient has correct armband on for positive identification. Bed in low position. Call [facility] light in reach. Side rails up X 1. Pulse ox on. NIBP on. 18:16 Urine Microscopic Only Sent. [facility] 18:17 Urine collected: clean catch specimen, clear. [facility] 19:05 Primary Nurse role handed off by Chet Hernandez RN 19:05 Jake Ha, EVETTE is Primary Nurse. sf 19:07 Urine Dipstick--Ancillary (enter results) Sent. sf 19:11 Anderson Mancera is Hospitalizing Provider. cp 21:59 No provider procedures requiring assistance completed. Patient admitted, IV remains in sf place. 22:43 COVID-19 : Document "Date of Symptom Onset" if Symptomatic. Sent. sf 22:43 CORONAVIRUS Sent. 03 07:14 Report given to EVETTE Cartwright. 11:59 Primary Nurse role handed off by Jake Ha RN eb Administered Medications: 03 17:15 Drug: Zofran (Ondansetron) 4 mg Route: IVP; Site: right antecubital; bp 19:52 Follow up: Response: No adverse reaction; Marked relief of symptoms sf 17:15 Drug: Pepcid 20 mg Route: IVP; Site: right antecubital; bp 19:52 Follow up: Response: No adverse reaction; Marked relief of symptoms sf 17:15 Drug: NS 0.9% 500 ml Route: IV; Rate: 500 ml/hr; Site: right antecubital; bp 22:01 Follow up: IV Status: Completed infusion; IV Intake: 500ml sf 22:02 Follow up: Response: No adverse reaction sf Intake: 22:01 IV: 500ml; Total: 500ml. sf Outcome: 19:12 Decision to Hospitalize by Provider. cp 22:01 Admitted to ER Hold. Please see [facility] for further documentation. sf 22:01 Condition: stable 22:01 Instructed on the need for admit. 08/30 16:54 Patient left the ED. eb Signatures: Jalil Bradford PA PA cp Martinez, Maria [facility] Chet Hernandez RN RN Odom, MarciaJake Galvan RN RN sf Corrections: (The following items were deleted from the chart) 08/29 21:03 16:47 Home Meds: aspirin 325 mg oral TbEC; sf
[2020-08-29 19:46] LABS: Urine Blood NEGATIVE (NEG); Urine Glucose 2+ (NEG); Urine Protein NEGATIVE (NEG)
[2020-08-29] MEDS ORDERED: NA CHLORIDE 0.9% 1,000 ML IV SCH (22:36)
[2020-08-29] MEDS: ONDANSETRON 4 MG/2 ML VIAL IV PRN (22:53)
[2020-08-29 23:08] VITALS: BMI 25.8
[2020-08-30] MEDS: MORPHINE 2 MG/ML SYR IV PRN ×3 (01:22→17:12)
[2020-08-30] MEDS: D5 0.45 NS 1,000 ML IV SCH ×2 (01:35→18:14)
[2020-08-30] MEDS ORDERED: D5 0.45 NS 1,000 ML IV ONE (01:41)
[2020-08-30 05:52] LABS: Absolute Lymphocytes (CBC) 1.1 K/uL (0.7-4.9); Basophils % 0.2 % (0-1.3); Hematocrit 38.5 % (39.6-49.0); Lymphocytes % 12.4 % (15.3-44.8); MPV 9.2 fL (7.6-11.3); RBC Red Blood Cell Count 4.31 M/uL (4.33-5.43)
[2020-08-30 06:02] LABS: ALT/SGPT 25 U/L (12-78); AST/SGOT 12 U/L (15-37); Albumin 2.6 g/dL (3.4-5.0); Alkaline Phosphatase 65 U/L (45-117); BUN Blood Urea Nitrogen 20 mg/dL (7-18); Bicarbonate 25 mmol/L (21-32); Bilirubin Total 0.4 mg/dL (0.2-1.0); Glucose Level 227 mg/dL (74-106); Protein, Total 6.1 g/dL (6.4-8.2); Sodium Level 138 mmol/L (136-145)
--- NOTE | 2020-08-30 06:12 | P.HP ---
Certification for Inpatient Patient admitted to: Observation With expected LOS: <2 Midnights Patient will require the following post-hospital care: None Practitioner: I am a practitioner with admitting privileges, knowledge of patient current condition, hospital course, and medical plan of care. Services: Services provided to patient in accordance with Admission requirements found in Title 42 Section 412.3 of the Code of Federal Regulations <Jacques Ordoñez - Last Filed: 08/30/20 06:15> Patient History Date of Service: 08/30/20 Reason for admission: hyperglycemia, abdominal pain History of Present Illness: Mr. Moreland is an 80yo male with HTN and DM and h/o cholecystectomy who presents with 2 days of 10/10 intermittent abdominal pain and hyperglycemia. He reports nausea, anorexia. Denies vomiting. Pain relieved slightly with excedrin. Does not drink alochol. Lipase of 195. CT without findings. Liver enzymes normal. Recently hospitalized for COVID. 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 - Family History Father -: Heart disease, Hypertension Mother -: Cancer Sister -: Cancer - Social History Smoking Status: Never smoker Alcohol use: No CD- Drugs: No Caffeine use: No <Jacques Ordoñez - Last Filed: 08/30/20 06:15> Date of Service: 08/30/20 <juan hernandez - Last Filed: 08/30/20 17:45> Allergies codeine Allergy (Verified 03/17/19 11:14) Rash Home Medications: Aspirin [Aspirin EC 81 MG] 81 mg PO DAILY 03/13/19 Finasteride [Proscar*] 5 mg PO DAILY 03/13/19 Pantoprazole [Protonix Tab*] 40 mg PO DAILY 03/13/19 lisinopriL [Prinivil*] 20 mg PO [id number] 03/13/19 Escitalopram Oxalate 10 mg PO DAILY 06/16/19 Glimepiride 1 mg PO DAILY 08/19/20 Ascorbic Acid [Vitamin C*] 500 mg PO TID #90 tablet 08/20/20 Cholecalciferol (Vitamin D3) [Vitamin D 1000 Iu Tab*] 2,000 unit PO DAILY #60 tab 08/20/20 Lactobacillus Acidophilus [Acidophilus Lactobacilli] 1 each PO BID #30 capsule 08/20/20 Melatonin 5 mg PO BEDTIME #30 tablet 08/20/20 Thiamine HCl [Vitamin B-1*] 100 mg PO BID #60 tablet 08/20/20 Zinc Sulfate [Zinc Sulfate*] 220 mg PO DAILY #30 cap 08/20/20 predniSONE [Deltasone*] 10 mg PO SEECOM #15 tab 08/20/20 Metformin ER [Glucophage ER*] 1 tab PO DAILY 08/30/20 Review of Systems General: Unremarkable Eyes: Unremarkable ENT: Unremarkable Respiratory: Unremarkable Cardiovascular: Unremarkable Gastrointestinal: Nausea, Abdominal Pain Genitourinary: Unremarkable Musculoskeletal: Unremarkable Integumentary: Unremarkable Neurological: Unremarkable Lymphatics: Unremarkable <Jacques Ordoñez - Last Filed: 08/30/20 06:15> Physical Examination - Vital Signs Temperature: 97.9 F Blood Pressure: 116/48 Pulse: 67 Respirations: 16 Pulse Ox (%): 94 - Physical Exam General: Alert, In no apparent distress, Oriented x3, Cooperative HEENT: Atraumatic, Normocephalic, PERRLA, Mucous membr. moist/pink, EOMI, Sclerae nonicteric Neck: Supple, 2+ carotid pulse no bruit, JVD not distended, No Thyromegaly, No LAD Respiratory: Clear to auscultation bilaterally, Normal air movement Cardiovascular: No edema, Normal pulses, Regular rate/rhythm, Normal S1 S2, No gallops, No rubs, No murmurs Capillary refill: <2 Seconds Gastrointestinal: Normal bowel sounds, Soft and benign, Non-distended, No ascites, No masses, No rebound, No guarding, Tenderness Musculoskeletal: No clubbing, No swelling, No contractures, No erythema, No tenderness, No warmth Integumentary: No rashes, No breakdown, No significant lesion, No tenderness/swelling, No erythema, No warmth, No cyanosis Neurological: Normal gait, Normal speech, Normal strength at 5/5 x4 extr, Normal tone, Sensation intact, Cranial nerves 3-12 intact, Normal affect Lymphatics: No axilla or inguinal lymphadenopathy - Studies Laboratory Data (last 24 hrs) 08/29/20 17:17: WBC 7.60 D, Hgb 13.2 L, Hct 39.8, Plt Count 203 08/29/20 17:17: Sodium 136, Potassium 3.8, BUN 23 H, Creatinine 0.87, Glucose 271 H, Total Bilirubin 0.3, AST 9 L, ALT 28, Alkaline Phosphatase 72, Lipase 1956 H <Jacques Ordoñez - Last Filed: 08/30/20 06:15> - Studies Laboratory Data (last 24 hrs) 08/29/20 17:17: Sodium 136, Potassium 3.8, BUN 23 H, Creatinine 0.87, Glucose 271 H, Total Bilirubin 0.3, AST 9 L, ALT 28, Alkaline Phosphatase 72, Lipase 1956 H <juan hernandez - Last Filed: 08/30/20 17:45> Assessment and Plan - Plan Assessment #possible pancreatitis #HTN #DM Plan #possible pancreatitis -NPO, given IV fluids, morphine for pain control -lipid panel pending, lipase 1955 -CT scan without findings -recently admitted for covid #HTN -stable, continue to monitor #DM -hyperglycemia resolving, continue to monitor. - Advance Directives Does patient have a Living Will: Yes Does patient have a Durable POA for Healthcare: Yes - Code Status/Comfort Care Code Status Assessed: Yes (full code) Critical Care: No Time Spent Managing Pts Care (In Minutes): 70 <Jacques Ordoñez - Last Filed: 08/30/20 06:15> Physician Review: Patient Assessed, Agree with Above Assessment and Plan Physician Review Additional Text: Acute pancreatitis. DM type 2. Plan: Supportive measures Clear liquid diet. Monitor lipase levels <juan hernandez - Last Filed: 08/30/20 17:45>
[2020-08-30] MEDS: INSULIN -REGULAR HUMAN 50 UNIT/0.5 ML ML SQ SCH ×4 (07:30→23:12)
[2020-08-30] MEDS: ONDANSETRON 4 MG/2 ML VIAL IV PRN ×2 (08:15→17:12)
[2020-08-30] MEDS ORDERED: MORPHINE 2 MG/ML SYR ONE (08:26)
[2020-08-30] MEDS ORDERED: ONDANSETRON 4 MG/2 ML VIAL ONE (08:27)
[2020-08-30] MEDS: ENOXAPARIN 40 MG/0.4 ML SQ SCH (09:00)
[2020-08-30] MEDS ORDERED: INSULIN -REGULAR HUMAN 50 UNIT/0.5 ML ML ONE ×2 (09:04→14:32)
[2020-08-30] MEDS ORDERED: ENOXAPARIN 40 MG/0.4 ML SQ ONE (09:51)
--- NOTE | 2020-08-30 17:50 | P.PN ---
Subjective Date of Service: 08/30/20 Chief Complaint: hyperglycemia, abdominal pain Patient reports improvement in abdominal pain. He denies any nausea or vomiting. He is tolerating clear liquid diet. Physical Examination - Vital Signs Temperature: 98.8 F Blood Pressure: 144/68 Pulse: 67 Respirations: 18 Pulse Ox (%): 96 - Physical Exam General: Alert, In no apparent distress, Oriented x3 HEENT: Mucous membr. moist/pink Neck: Supple Respiratory: Clear to auscultation bilaterally, Normal air movement Cardiovascular: No edema, Regular rate/rhythm, Normal S1 S2 Gastrointestinal: Normal bowel sounds, Soft and benign, Non-distended, No tenderness Musculoskeletal: No swelling, No tenderness Integumentary: No rashes, No erythema Neurological: Normal strength at 5/5 x4 extr, Cranial nerves 3-12 intact - Studies Laboratory Data (last 24 hrs) 08/29/20 17:17: Sodium 136, Potassium 3.8, BUN 23 H, Creatinine 0.87, Glucose 271 H, Total Bilirubin 0.3, AST 9 L, ALT 28, Alkaline Phosphatase 72, Lipase 1956 H Assessment And Plan - Current Problems (Diagnosis) (1) Acute pancreatitis Current Visit: Yes Status: Acute (2) Diabetes Current Visit: No Status: Chronic (3) Hypertension Current Visit: No Status: Chronic (4) Pneumonia due to COVID-19 virus Current Visit: Yes Status: Acute - Plan Etiology of acute pancreatitis is unknown. Triglyceride level not severely elevated to account for the acute pancreatitis. CT abdomen and pelvis: Cholecystectomy, no reported biliary duct dilatation. Patient denies alcohol intake. Coffee 19 pneumonia is stable. Patient not requiring oxygen and not hypoxic. Continue IV fluid Clear liquid diet Check lipase level daily Serial abdominal examination. Supplemental oxygen p.r.n.
[2020-08-30] MEDS: ESCITALOPRAM 20 MG TAB PO SCH (21:10)
[2020-08-31] MEDS: ONDANSETRON 4 MG/2 ML VIAL IV PRN ×2 (04:04→19:23)
[2020-08-31] MEDS: D5 0.45 NS 1,000 ML IV SCH ×3 (04:40→23:46)
[2020-08-31 07:27] LABS: Absolute Lymphocytes (CBC) 0.8 K/uL (0.7-4.9); Basophils % 0.1 % (0-1.3); Hematocrit 34.6 % (39.6-49.0); Lymphocytes % 7.7 % (15.3-44.8); MPV 8.7 fL (7.6-11.3); RBC Red Blood Cell Count 3.93 M/uL (4.33-5.43)
[2020-08-31] MEDS: INSULIN -REGULAR HUMAN 50 UNIT/0.5 ML ML SQ SCH ×4 (07:30→20:32)
[2020-08-31 07:44] LABS: ALT/SGPT 20 U/L (12-78); AST/SGOT 11 U/L (15-37); Albumin 2.3 g/dL (3.4-5.0); Alkaline Phosphatase 65 U/L (45-117); BUN Blood Urea Nitrogen 13 mg/dL (7-18); Bicarbonate 22 mmol/L (21-32); Bilirubin Total 0.4 mg/dL (0.2-1.0); Glucose Level 195 mg/dL (74-106); HDL Cholesterol 31 mg/dL (40-60); LDL Cholesterol, Calculated 65 (<130); Lipase 769 U/L (73-393); Potassium 3.4 mmol/L (3.5-5.1); Protein, Total 5.7 g/dL (6.4-8.2); Sodium Level 136 mmol/L (136-145)
[2020-08-31] MEDS: ENOXAPARIN 40 MG/0.4 ML SQ SCH (08:23)
[2020-08-31] MEDS: PANTOPRAZOLE 40MG TABLET PO SCH (08:23)
[2020-08-31] MEDS: ESCITALOPRAM 20 MG TAB PO SCH (08:23)
[2020-08-31] MEDS: VITAMIN D 1000 UNIT TAB PO SCH (08:24)
[2020-08-31] MEDS ORDERED: HOME MED 1 EA UNK (Escitalopram Oxalate [Escitalopram Oxalate] 10 MG Tablet) PO SCH (09:00)
[2020-08-31 12:24] LABS: C.diff Antigen/Toxin Ag neg : Tox neg (NEG : NEG)
--- NOTE | 2020-08-31 13:17 | P.PN ---
Subjective Date of Service: 08/31/20 Chief Complaint: hyperglycemia, abdominal pain Patient having bouts of diarrhea. He denies abdominal or nausea and vomiting. He reports generalized weakness. He is tolerating clear liquid diet. Physical Examination - Vital Signs Temperature: 98.5 F Blood Pressure: 136/63 Pulse: 77 Respirations: 18 Pulse Ox (%): 95 - Physical Exam General: Alert, In no apparent distress Neck: JVD not distended Respiratory: Other (No labored breathing) Cardiovascular: No edema, Regular rate/rhythm Gastrointestinal: Soft and benign, Non-distended, No tenderness Musculoskeletal: No swelling Integumentary: No rashes Neurological: Other (No focal motor deficit.) Assessment And Plan - Current Problems (Diagnosis) (1) Acute pancreatitis Current Visit: Yes Status: Acute (2) Diabetes Current Visit: No Status: Chronic (3) Hypertension Current Visit: No Status: Chronic (4) Pneumonia due to COVID-19 virus Current Visit: Yes Status: Acute (5) Enterocolitis Current Visit: Yes Status: Acute - Plan Etiology of acute pancreatitis is unknown. Lipase level trended down to 700s. Patient with diarrhea. Elevated lipase could also be related to enterocolitis. CT abdomen and pelvis: Cholecystectomy, no reported biliary duct dilatation. Patient denies alcohol intake. Covid 19 pneumonia is stable. Patient not requiring oxygen and not hypoxic. Continue IV fluid Clear liquid diet Check lipase level daily Serial abdominal examination. Supplemental oxygen p.r.n. C. diff is negative. Start IV Flagyl and Cipro for enterocolitis. Insulin sliding scale for glucose management.
[2020-08-31] MEDS: METRONIDAZOLE 500mg IVPB 500 MG/100 ML BAG IV SCH (17:31)
[2020-08-31] MEDS: CIPROFLOXACIN 400mg IV 400 MG/200 ML BAG IV SCH (20:32)
[2020-09-01] MEDS: METRONIDAZOLE 500mg IVPB 500 MG/100 ML BAG IV SCH ×2 (01:13→08:17)
[2020-09-01] MEDS: INSULIN -REGULAR HUMAN 50 UNIT/0.5 ML ML SQ SCH ×2 (07:30→11:50)
[2020-09-01] MEDS: ESCITALOPRAM 20 MG TAB PO SCH (08:17)
[2020-09-01] MEDS: ENOXAPARIN 40 MG/0.4 ML SQ SCH (08:17)
[2020-09-01] MEDS: VITAMIN D 1000 UNIT TAB PO SCH (08:17)
[2020-09-01] MEDS: PANTOPRAZOLE 40MG TABLET PO SCH (08:18)
[2020-09-01] MEDS: CIPROFLOXACIN 400mg IV 400 MG/200 ML BAG IV SCH (08:19)
[2020-09-01 09:14] VITALS: O2SAT 97
[2020-09-01] MEDS ORDERED: ACETAMINOPHEN 325 MG TABLET PO PRN (12:49)
--- NOTE | 2020-09-01 13:07 | P.DS ---
Admission Date: 08/29/20 Discharge Date: 09/01/20 Disposition: ROUTINE DISCHARGE Discharge Condition: FAIR Reason for Admission: hyperglycemia, abdominal pain - Problems (1) Acute pancreatitis Current Visit: Yes Status: Acute (2) Diabetes Current Visit: No Status: Chronic (3) Hypertension Current Visit: No Status: Chronic (4) Pneumonia due to COVID-19 virus Current Visit: Yes Status: Acute (5) Enterocolitis Current Visit: Yes Status: Acute Brief History of Present Illness: 80-year-old gentleman with a history of diabetes mellitus type 2, history of cholecystectomy presented to the emergency department with a 3 day history of intermittent abdominal pain and intermittent diarrhea. Patient was hyperglycemic in the ED. Lipase level elevated to 1956. CT abdomen and pelvis showed no evidence of pancreatitis. Is showed mild to moderate bilateral pulmonary infiltrates indicating no alveolitis. Patient admitted for further management of acute pancreatitis. Hospital Course: Patient admitted to the medical floor and treated with supportive measures. He was kept NPO briefly and treated with IV fluid. Lipase level improved. Patient was also experiencing diarrhea. Stool for C. diff was negative. Patient treated with IV antibiotics for enterocolitis. He indicated he does not tolerate metformin for diabetes because it gives him diarrhea. He stated he has not tolerated Glipizide either. Patient has tolerated soft diet with no abdomin al pain. He is discharged to follow with his PCP for options regarding his diabetes treatment. Vital Signs/Physical Exam: Temp Pulse Resp BP Pulse Ox 97.8 F 66 17 143/81 H 97 09/01/20 08:00 09/01/20 08:00 09/01/20 08:00 09/01/20 08:00 09/01/20 08:00 General: Alert, In no apparent distress, Oriented x3 HEENT: Mucous membr. moist/pink Neck: JVD not distended Respiratory: Other (Non labored breathing) Cardiovascular: No edema, Regular rate/rhythm Gastrointestinal: Soft and benign, Non-distended, No tenderness Musculoskeletal: No swelling Integumentary: No rashes Neurological: Other (No focal motor deficit.) Laboratory Data at Discharge: WBC 10.10 K/uL (4.3-10.9) D 08/31/20 06:59 Hgb 12.0 g/dL (13.6-17.9) L 08/31/20 06:59 Hct 34.6 % (39.6-49.0) L 08/31/20 06:59 Plt Count 181 K/uL (152-406) 08/31/20 06:59 Sodium 136 mmol/L (136-145) 08/31/20 06:59 Potassium 3.4 mmol/L (3.5-5.1) L 08/31/20 06:59 BUN 13 mg/dL (7-18) 08/31/20 06:59 Creatinine 0.75 mg/dL (0.55-1.3) 08/31/20 06:59 Glucose 195 mg/dL (74-106) H 08/31/20 06:59 Total Bilirubin 0.4 mg/dL (0.2-1.0) 08/31/20 06:59 AST 11 U/L (15-37) L 08/31/20 06:59 ALT 20 U/L (12-78) 08/31/20 06:59 Alkaline Phosphatase 65 U/L (45-117) 08/31/20 06:59 Triglycerides 128 mg/dL (<150) 08/31/20 06:59 Cholesterol 122 mg/dL (<200) 08/31/20 06:59 HDL Cholesterol 31 mg/dL (40-60) L 08/31/20 06:59 Cholesterol/HDL Ratio 3.94 08/31/20 06:59 Lipase 549 U/L (73-393) H 09/01/20 06:13 Home Medications: Aspirin [Aspirin EC 81 MG] 81 mg PO DAILY 03/13/19 Finasteride [Proscar*] 5 mg PO DAILY 03/13/19 Pantoprazole [Protonix Tab*] 40 mg PO DAILY 03/13/19 lisinopriL [Prinivil*] 20 mg PO [id number] 03/13/19 Escitalopram Oxalate 10 mg PO DAILY 06/16/19 Ascorbic Acid [Vitamin C*] 500 mg PO TID #90 tablet 08/20/20 Cholecalciferol (Vitamin D3) [Vitamin D 1000 Iu Tab*] 2,000 unit PO DAILY #60 tab 08/20/20 Lactobacillus Acidophilus [Acidophilus Lactobacilli] 1 each PO BID #30 capsule 08/20/20 Melatonin 5 mg PO BEDTIME #30 tablet 08/20/20 Zinc Sulfate [Zinc Sulfate*] 220 mg PO DAILY #30 cap 08/20/20 Ciprofloxacin HCl [Cipro 500 MG Tablet] 500 mg PO BID #10 tab 09/01/20 metroNIDAZOLE [Flagyl] 500 mg PO Q8H #15 tablet 09/01/20 New Medications: Ciprofloxacin HCl [Cipro 500 MG Tablet] 500 mg PO BID #10 tab metroNIDAZOLE [Flagyl] 500 mg PO Q8H #15 tablet Diet: ADA Activity: Fall precautions Followup: NONE,NONE [Primary Care Provider] - 1-2 Weeks Time spent managing pt's care (in minutes): 33
[2020-09-01 13:19] VITALS: BP 131/62; TEMP 97.4
[2020-09-01] MEDS: ONDANSETRON 4 MG/2 ML VIAL IV PRN (15:07)
== END 2020-09-01 17:00 | disposition home or self-care (01) | DRG 438 ==
LOC: ER 16:34 → ERHOLD 22:10 → 4TH 08-30 16:19
PROVIDERS: ADMIT Internal Medicine; ATTEND Internal Medicine
DX: K85.90 Acute pancreatitis without necrosis or infection, unspecified (principal); U07.1 COVID-19; J12.82 Pneumonia due to coronavirus disease 2019; E11.65 Type 2 diabetes mellitus with hyperglycemia; K21.9 Gastro-esophageal reflux disease without esophagitis; I10 Essential (primary) hypertension; I25.10 Atherosclerotic heart disease of native coronary artery without angina pectoris; K52.9 Noninfective gastroenteritis and colitis, unspecified; E78.5 Hyperlipidemia, unspecified; I25.2 Old myocardial infarction; Z88.5 Allergy status to narcotic agent; Z79.84 Long term (current) use of oral hypoglycemic drugs; Z79.82 Long term (current) use of aspirin; Z90.49 Acquired absence of other specified parts of digestive tract; Z79.899 Other long term (current) drug therapy; Z95.5 Presence of coronary angioplasty implant and graft; Z79.52 Long term (current) use of systemic steroids
CPT/HCPCS: 36415; 74177; 80048; 80053; 80061; 80076; 81003; 81015; 82947; 83690; 85025; 87324; 87449; 96361; 96374; 96375; 97161; 97530; 99285; J0744; J1650; J2270; J2405; J7799; Q9967; U0003

== ENCOUNTER 2021-04-26 15:49 | Emergency (ER) | payer OTHER ==
[2021-04-26] MEDS ORDERED: ONDANSETRON 4 MG/2 ML VIAL ONE (16:58)
[2021-04-26] MEDS ORDERED: FAMOTIDINE 20 MG/2 ML VIAL IV ONE (16:58)
[2021-04-26] MEDS ORDERED: DICYCLOMINE HCL 10 MG CAP ONE (16:58)
[2021-04-26] MEDS ORDERED: NA CHLORIDE 0.9% 500 ML ONE (16:58)
[2021-04-26 17:06] LABS: Protime INR 0.97
[2021-04-26 17:10] LABS: Absolute Lymphocytes (CBC) 1.3 K/uL (0.7-4.9); Basophils % 0.4 % (0-1.3); Hematocrit 39.2 % (39.6-49.0); Lymphocytes % 13.2 % (15.3-44.8); MPV 8.8 fL (7.6-11.3); RBC Red Blood Cell Count 4.37 M/uL (4.33-5.43)
[2021-04-26 17:15] LABS: Potassium 4.4 mmol/L (3.5-5.1); Sodium Level 142 mmol/L (136-145)
[2021-04-26 17:24] LABS: ALT/SGPT 24 U/L (12-78); AST/SGOT 15 U/L (15-37); Albumin 3.2 g/dL (3.4-5.0); Alkaline Phosphatase 60 U/L (45-117); BUN Blood Urea Nitrogen 30 mg/dL (7-18); Bicarbonate 24 mmol/L (21-32); Bilirubin Direct < 0.1 mg/dL (0-0.2); Bilirubin Total 0.2 mg/dL (0.2-1.0); Glucose Level 150 mg/dL (74-106); Lipase 114 U/L (73-393); Magnesium 2.1 mg/dL (1.8-2.4); Protein, Total 6.7 g/dL (6.4-8.2); Troponin (Emerg Dept Use Only) < 0.02 ng/mL (0.0-0.045)
--- NOTE | 2021-04-26 17:51 | RAD REPORT ---
EXAM DESCRIPTION: CT - [id number] - 04/26/2021 5:41 pm CLINICAL HISTORY: headache COMPARISON: <Comparisons> TECHNIQUE: Axial 5 mm thick images of the head were obtained. Axial 2 mm thick images of the cervical spine were obtained with sagittal and coronal reconstruction images generated and reviewed. All CT scans are performed using dose optimization technique as appropriate and may include automated exposure control or mA/KV adjustment according to patient size. FINDINGS: CT HEAD WITHOUT CONTRAST: No acute hemorrhage, hydrocephalus or extra-axial collection is identified.No areas of brain edema or midline shift. The paranasal sinuses and mastoids are clear.The calvarium is intact. CT CERVICAL SPINE WITHOUT CONTRAST: No fracture or subluxation.No prevertebral soft tissues swelling is identified. Status post C5 throug h C7 ACDF. IMPRESSION: No acute intracranial or cervical spine findings.
--- NOTE | 2021-04-26 17:52 | RAD REPORT ---
EXAM DESCRIPTION: CT - CTFB CLINICAL HISTORY: PAIN COMPARISON: No comparisonsNo comparisons TECHNIQUE: Axial 2 mm thick images of the face were obtained with sagittal and coronal reconstructio n images. All CT scans are performed using dose optimization technique as appropriate and may include automated exposure control or mA/KV adjustment according to patient size. FINDINGS: No acute facial bone fracture is seen.The mandible is intact. The globes and orbital contents are grossly unremarkable.The paranasal sinuses and mastoids are clear . IMPRESSION: Negative for facial bone fracture.
[2021-04-26 18:07] LABS: Urine Blood 2+ (Negative); Urine Glucose Negative (Negative); Urine Protein Negative (Negative); Urine Specific Gravity >=1.030 (1.005-1.030); Urine pH 5.5 (5.0-7.0)
--- NOTE | 2021-04-26 18:07 | RAD REPORT ---
EXAM DESCRIPTION: RAD - Chest Single View - 04/26/2021 5:57 pm CLINICAL HISTORY: abdominal pain COMPARISON: Chest Single View dated 08/19/2020; Chest Single View dated 04/01/2020; Chest Single View dated 08/05/2019; Chest Single View dated 06/16/2019 FINDINGS: Lines: None. Lungs: No evidence of edema or pneumonia. Pleural: No significant pleural effusions or pneumothorax. Cardiac: Cardiomegaly. Bones: No acute fractures. Other: IMPRESSION: No acute cardiopulmonary disease.
[2021-04-26 18:29] LABS: Urine Bacteria <20 /HPF (NONE SEEN)
--- NOTE | 2021-04-26 19:23 | RAD REPORT ---
EXAM DESCRIPTION: CTAbdomen Pelvis W Contrast - 04/26/2021 6:53 pm CLINICAL HISTORY: abdominal pain COMPARISON: Abdomen Pelvis W Contrast dated 08/29/2020; Abdomen Pelvis W Contrast dated 0; Abdomen Pelvis W Contrast dated 08/05/2019; Abdomen Pelvis W Contrast dated 06/16/2019 TECHNIQUE: CT of the abdomen and pelvis was performed. All CT scans are performed using dose optimization technique as appropriate and may include automated exposure control or mA/KV adjustment according to patient size. FINDINGS: Lower chest: Coronary artery calcifications and/or stents. Liver: No acute abnormality or suspicious lesions. Biliary: Cholecystectomy. Stomach: No significant focal abnormality. Duodenum: No significant focal abnormality. Pancreas: No significant abnormality. Spleen: No significant abnormality. Adrenal: No suspicious lesions. Kidney/ureter: No hydronephrosis. No renal calculi. Right pelvic kidney. Too small to characterize an d/or benign appearing renal lesions are noted. Retroperitoneum: No retroperitoneal adenopathy. Vascular: Atherosclerosis. Bowel: No significant focal abnormality. Normal appendix. Peritoneum: No ascites or free air. Bladder: Grossly unremarkable. Reproductive: Prostatomegaly. Bones: No acute fracture. Other: n/a IMPRESSION: No acute intra-abdominal or pelvic finding.
--- NOTE | 2021-04-26 19:46 | EDPHYS ---
Physician Documentation [facility] Name: Dave Moreland Age: 81 yrs Sex: Male : 1940 Arrival Date: 04/26/2021 Time: 15:53 Bed 4 Private MD: ED Physician Micaela Nunez HPI: 04/26 16:50 This 81 yrs old Male presents to ER via Wheelchair with complaints of Nausea, cp Abdominal Pain, Headache, Arm Pain, Weakness. 16:50 The patient presents with abdominal pain. cp 16:50 Onset: The symptoms/episode began/occurred today. The symptoms do not radiate. cp Associated signs and symptoms: Pertinent positives: headache, nausea, general weakness, Pertinent negatives: chest pain, diarrhea, fever, shortness of breath, vomiting. Patient reports trip and fall causing injury to right side of face. Historical: - Allergies: 16:12 Codeine; vg1 - Home Meds: 16:12 aspirin 81 mg Oral chew 1 tab once daily [Active]; lisinopril 20 mg Oral tab 1 tab once vg1 daily [Active]; Vitamin D3 Oral 1 tab daily [Active]; pantoprazole 40 mg Oral TbEC 1 tab once daily [Active]; finasteride 5 mg Oral tab 1 tab once daily [Active]; escitalopram oxalate 10 mg Oral tab 1 tab once daily [Active]; Insulin: Novolog Sub-Q [Active]; - PMHx: 16:12 Diabetes - NIDDM; GERD; Hyperlipidemia; Hypertension; Myocardial infarction; prostate vg1 problems; - Immunization history:: Client reports having NOT received the Covid vaccine. - Social history:: Smoking status: Patient denies any tobacco usage or history of. ROS: 17:00 Constitutional: Negative for body aches, chills, fever, poor PO intake. cp 17:00 Eyes: Negative for injury, pain, redness, and discharge. cp 17:00 Cardiovascular: Negative for chest pain, edema, palpitations. 17:00 Respiratory: Negative for cough, shortness of breath, wheezing. 17:00 Abdomen/GI: Positive for abdominal pain, nausea, Negative for diarrhea, black/tarry stool, rectal bleeding. 17:00 Back: Negative for pain at rest, pain with movement. 17:00 Neuro: Positive for headache, general weakness, Negative for altered mental status, loss of consciousness, syncope. 17:00 All other systems are negative. Exam: 17:05 Constitutional: The patient appears in no acute distress, alert, awake. cp 17:05 Head/Face: Normocephalic, atraumatic. cp 17:05 Eyes: Periorbital structures: appear normal, Conjunctiva: normal, no exudate, no cp injection, Sclera: no appreciated abnormality, Lids and lashes: appear normal, bilaterally. 17:05 ENT: External ear(s): are unremarkable, Nose: is normal, Mouth: Lips: dry, Oral mucosa: moist, Posterior pharynx: Airway: no evidence of obstruction, patent. 17:05 Neck: C-spine: vertebral tenderness, is not appreciated, crepitus, is not appreciated, ROM/movement: is normal, is supple, without pain, no range of motions limitations. 17:05 Chest/axilla: Inspection: normal, Palpation: is normal, no crepitus, no tenderness. 17:05 Cardiovascular: Rate: normal, Rhythm: regular, Edema: is not appreciated, JVD: is not appreciated. 17:05 Respiratory: the patient does not display signs of respiratory distress, Respirations: normal, no use of accessory muscles, no retractions, labored breathing, is not present, Breath sounds: are clear throughout, no decreased breath sounds, no stridor, no wheezing. 17:05 Abdomen/GI: Inspection: abdomen appears normal, Bowel sounds: active, all quadrants, Palpation: soft, in all quadrants, mild abdominal tenderness, in the right upper quadrant and left upper quadrant, rebound tenderness, is not appreciated, involuntary guarding, is not appreciated. 17:05 Back: CVA tenderness, is absent. 17:05 Skin: cellulitis, is not appreciated, no rash present. 17:05 Neuro: Orientation: to person, place \T\ time. Mentation: is normal, Cerebellar function: is grossly normal, Motor: moves all fours, strength is normal, Sensation: is normal, Gait: is steady, at a normal pace, without difficulty. Vital Signs: 16:08 BP 135 / 76; Pulse 74; Resp 20; Temp 98.7(O); Pulse Ox 100% ; Weight 83.91 kg; Height 5 vg1 ft. 10 in. (177.80 cm); Pain 8/10; 16:40 BP 132 / 71; Pulse 67; Resp 18 S; Pulse Ox 100% on R/A; jd3 18:20 BP 144 / 75; Pulse 61; Resp 17 S; Pulse Ox 100% on R/A; jd3 16:08 Body Mass Index 26.54 (83.91 kg, 177.80 cm) vg1 MDM: 16:28 Patient medically screened. cp 17:00 Differential diagnosis: bowel obstruction, cholecystitis, Cholelithiasis, cp diverticulitis, pancreatitis, Peptic Ulcer Disease, Perf. Duodenal Ulcer, Perf. Gastric Ulcer, Pyelonephritis, urinary tract infection. 19:45 Data reviewed: vital signs, nurses notes, lab test result(s), radiologic studies, CT cp scan, plain films. 19:45 Counseling: I had a detailed discussion with the patient and/or guardian regarding: the cp historical points, exam findings, and any diagnostic results supporting the discharge/admit diagnosis, lab results, radiology results, to return to the emergency department if symptoms worsen or persist or if there are any questions or concerns that arise at home. Response to treatment: the patient's symptoms have markedly improved after treatment, and as a result, I will discharge patient. 04/26 16:43 Order name: Basic Metabolic Panel; Complete Time: 18:00 04/26 18:01 Interpretation: Normal except: CL 110; GLUC 150; BUN 30; GFR 78. 04/26 16:43 Order name: CBC with Diff; Complete Time: 18:00 04/26 18:01 Interpretation: Normal except: HGB 13.0; HCT 39.2; IGGY% 77.1; LYM% 13.2. 04/26 16:43 Order name: LFT's; Complete Time: 18:00 04/26 18:01 Interpretation: Normal except: ALB 3.2; A/G 0.9. 04/26 16:43 Order name: Magnesium; Complete Time: 18:00 04/26 16:43 Order name: PT-INR; Complete Time: 18:00 04/26 16:43 Order name: Troponin (emerg Dept Use Only); Complete Time: 18:00 04/26 16:43 Order name: CT Head C Spine; Complete Time: 18:00 04/26 16:43 Order name: CT Facial Bones W/O Con; Complete Time: 18:00 cp 04/26 16:43 Order name: XRAY Chest (1 view); Complete Time: 18:25 cp 04/26 16:43 Order name: Lipase; Complete Time: 18:00 cp 04/26 16:43 Order name: Urine Microscopic Only; Complete Time: 18:56 cp 04/26 18:56 Interpretation: Normal except: URBC 5-10. cp 04/26 18:06 Order name: Urine Dipstick-Ancillary; Complete Time: 18:25 EDMS 04/26 19:32 Interpretation: Normal except: UKET Trace; UBLD 2+. cp 04/26 18:25 Order name: CT Abd/Pelvis - IV Contrast Only; Complete Time: 19:27 cp 04/26 16:43 Order name: EKG; Complete Time: 16:44 cp 04/26 16:43 Order name: Cardiac monitoring; Complete Time: 17:09 cp 04/26 16:43 Order name: EKG - Nurse/Tech; Complete Time: 17:09 cp 04/26 16:43 Order name: IV Saline Lock; Complete Time: 17:09 cp 04/26 16:43 Order name: Labs collected and sent; Complete Time: 17:09 cp 04/26 16:43 Order name: O2 Per Protocol; Complete Time: 17:09 cp 04/26 16:43 Order name: O2 Sat Monitoring; Complete Time: 17:09 cp 04/26 16:43 Order name: Urine Dipstick-Ancillary (obtain specimen); Complete Time: 18:06 cp EC/07 04:00 Rate is 63 beats/min. Rhythm is regular. QRS interval is normal. QT interval is normal. cp T waves are Inverted in lead aVR. Interpreted by me. Reviewed by me. Administered Medications: 04/26 17:08 Drug: NS 0.9% 500 ml Route: IV; Rate: 250 ml/hr; Site: right antecubital; jd3 17:09 Drug: Zofran (Ondansetron) 4 mg Route: IVP; Site: right antecubital; jd3 17:09 Drug: Pepcid (famotidine) 20 mg Route: IVP; Site: right antecubital; jd3 17:09 Drug: Bentyl (dicyclomine) 20 mg Route: PO; jd3 Disposition Summary: 04/26/21 19:45 Discharge Ordered Location: Home cp Problem: new cp Symptoms: have improved cp Condition: Stable cp Diagnosis - Headache cp - Abdominal pain, unspecified cp - Dehydration cp Followup: cp - With: Private Physician - When: 2 - 3 days - Reason: Recheck today's complaints Discharge Instructions: - Discharge Summary Sheet cp - Abdominal Pain, Adult cp - Constipation, Adult cp - Dehydration, Elderly cp - General Headache Without Cause cp Forms: - Medication Reconciliation Form cp - Thank You Letter cp - Antibiotic Education cp - Prescription Opioid Use cp Prescriptions: - Pepcid 20 mg Oral Tablet - take 1 tablet by ORAL route every 12 hours for 10 days; 20 tablet; Refills: 0, cp Product Selection Permitted - Zofran 4 mg Oral Tablet - take 1 tablet by ORAL route every 12 hours As needed; 20 tablet; Refills: 0, cp Product Selection Permitted Addendum: 05/05/2021 05:28 Co-signature as Attending Physician, Micaela fitzpatrick a2 Signatures: Dispatcher [employer] EDMS Jalil Bradford PA PA cp Davies, Jonathon, RN RN jd3 Micaela Nunez MD MD ma2 Rubi [place] RN RN vg1 Corrections: (The following items were deleted from the chart) 04/26 16:14 16:12 Home Meds: metformin 500 mg Oral tab 1 tab daily; vg1 vg1
--- NOTE | 2021-04-26 19:46 | ER ---
Nurse's Notes [facility] Name: Dave Moreland Age: 81 yrs Sex: Male : 1940 Arrival Date: 04/26/2021 Time: 15:53 Bed 4 Private MD: Diagnosis: Headache;Abdominal pain, unspecified;Dehydration Presentation: 04/26 16:08 Chief complaint: Patient states: Pt fell on Wednesday April 21, 2021, stated tripped and vg1 fell onto Right arm and Right side of cheek; pt states takes Aspirin. Pt appears to have an abrasion under Right eye. About two days ago pt states RUQ pain that is intermittent and states Nausea, denies VD. Pt. Coronavirus screen: Vaccine status: Patient reports being unvaccinated. Client denies travel out of the [place] in the last 14 days. Ebola Screen: Patient negative for fever greater than or equal to 101.5 degrees Fahrenheit, and additional compatible Ebola Virus Disease symptoms. Initial Sepsis Screen: Does the patient meet any 2 criteria? No. Patient's initial sepsis screen is negative. Does the patient have a suspected source of infection? No. Patient's initial sepsis screen is negative. Risk Assessment: Do you want to hurt yourself or someone else? Patient reports no desire to harm self or others. Onset of symptoms was April 21, 2021. 16:08 Method Of Arrival: Wheelchair vg1 16:08 Acuity: CLARK 3 vg1 Triage Assessment: 16:12 General: Appears in no apparent distress. uncomfortable, Behavior is calm, cooperative. vg1 Pain: Complains of pain in right upper quadrant and Right arm Pain currently is 8 out of 10 on a pain scale. GI: Abdomen is round Reports nausea. Historical: - Allergies: 16:12 Codeine; vg1 - Home Meds: 16:12 aspirin 81 mg Oral chew 1 tab once daily [Active]; lisinopril 20 mg Oral tab 1 tab once vg1 daily [Active]; Vitamin D3 Oral 1 tab daily [Active]; pantoprazole 40 mg Oral TbEC 1 tab once daily [Active]; finasteride 5 mg Oral tab 1 tab once daily [Active]; escitalopram oxalate 10 mg Oral tab 1 tab once daily [Active]; Insulin: Novolog Sub-Q [Active]; - PMHx: 16:12 Diabetes - NIDDM; GERD; Hyperlipidemia; Hypertension; Myocardial infarction; prostate vg1 problems; - Immunization history:: Client reports having NOT received the Covid vaccine. - Social history:: Smoking status: Patient denies any tobacco usage or history of. Screenin:40 Abuse screen: Denies threats or abuse. Nutritional screening: No deficits noted. jd3 Tuberculosis screening: No symptoms or risk factors identified. Fall Risk Fall in past 12 months (25 points). Gait- Weak (10 pts.). Mental Status- Oriented to own ability (0 pts). Total Casper Fall Scale indicates Low Risk Score (25-44 pts). Side Rails Up X 2 Family Present and informed to notify staff if they need to leave bedside. Assessment: 16:36 General: Appears in no apparent distress. comfortable, Behavior is calm, cooperative. jd3 Pain: Complains of pain in right upper quadrant, right arm and left arm. Neuro: Level of Consciousness is awake, alert, obeys commands, Oriented to person, place, time, situation, Gait is unsteady. Cardiovascular: Capillary refill < 3 seconds Patient's skin is warm and dry. Respiratory: Airway is patent Respiratory effort is even, unlabored, Respiratory pattern is regular, symmetrical, Breath sounds are clear bilaterally. GI: Abdomen is round non-distended, Bowel sounds present X 4 quads. Abd is soft and non tender Reports upper abdominal pain, nausea. Derm: Bruising that is yellow, on right elbow. 18:19 Reassessment: Patient and/or family updated on plan of care and expected duration. Pain jd3 level reassessed. Patient is alert, oriented x 3, equal unlabored respirations, skin warm/dry/pink. Vital Signs: 16:08 BP 135 / 76; Pulse 74; Resp 20; Temp 98.7(O); Pulse Ox 100% ; Weight 83.91 kg; Height 5 vg1 ft. 10 in. (177.80 cm); Pain 8/10; 16:40 BP 132 / 71; Pulse 67; Resp 18 S; Pulse Ox 100% on R/A; jd3 18:20 BP 144 / 75; Pulse 61; Resp 17 S; Pulse Ox 100% on R/A; jd3 16:08 Body Mass Index 26.54 (83.91 kg, 177.80 cm) vg1 ED Course: 15:53 Patient arrived in ED. mr 16:12 Triage completed. vg1 16:12 Arm band placed on. vg1 16:22 Jalil Bradford PA is PHCP. cp 16:22 Micaela Nunez MD is Attending Physician. cp 16:36 Griffin Restrepo, EVETTE is Primary Nurse. jd3 16:41 Bed in low position. Call light in reach. Side rails up X2. Adult w/ patient. Pulse ox jd3 on. NIBP on. 17:10 Inserted saline lock: 18 gauge in right antecubital area, using aseptic technique. jd3 Blood collected. 17:41 CT Head C Spine In Process Unspecified. EDMS 17:41 CT Facial Bones W/O Con In Process Unspecified. EDMS 17:56 XRAY Chest (1 view) In Process Unspecified. EDMS 18:52 CT Abd/Pelvis - IV Contrast Only In Process Unspecified. EDMS 19:22 Primary Nurse role handed off by Griffin Restrepo RN tt3 20:00 No provider procedures requiring assistance completed. IV discontinued, intact, kc4 bleeding controlled, No redness/swelling at site. Pressure dressing applied. Administered Medications: 17:08 Drug: NS 0.9% 500 ml Route: IV; Rate: 250 ml/hr; Site: right antecubital; jd3 17:09 Drug: Zofran (Ondansetron) 4 mg Route: IVP; Site: right antecubital; jd3 17:09 Drug: Pepcid (famotidine) 20 mg Route: IVP; Site: right antecubital; jd3 17:09 Drug: Bentyl (dicyclomine) 20 mg Route: PO; jd3 Outcome: 19:45 Discharge ordered by . cp 20:00 Discharged to home via wheelchair. kc4 20:00 Condition: good 20:00 Discharge instructions given to patient, significant other, Instructed on discharge instructions, follow up and referral plans. medication usage, Demonstrated understanding of instructions, follow-up care, medications, Prescriptions given X 2. 20:01 Patient left the ED. kc4 Signatures: Dispatcher [employer] EDMO Kyra Rowe mr Jalil Bradford PA PA cp Davies, Jonathon, RN RN jRubi Cabral RN RN vg1 Kayode Renee tt3 Joanie Rg kc4 Corrections: (The following items were deleted from the chart) 16:14 16:12 Home Meds: metformin 500 mg Oral tab 1 tab daily; vg1 vg1
[2021-04-26 20:09] VITALS: TEMP 98.7; O2SAT 100
[2021-04-26 20:12] VITALS: BP 144/75
--- NOTE | 2021-04-28 18:29 | EKG ---
Test Date: 2021-04-26 Test Time: 17:03:19 Program Project Manager: AMBROSE MEASUREMENT RESULTS: Intervals: Rate: 63 UT: QRSD: 88 QT: 404 QTc: 413 [place]: P: UT: QRS: -50 T: 38 INTERPRETIVE STATEMENTS: Atrial fibrillation with a competing junctional pacemaker Left axis deviation Abnormal ECG Compared to ECG 08/19/2020 04:16:11 No significant changes Electronically Signed On 04-28-21 18:24:05 SHIPS EQUIPMENT ENGINEER by oDroteo Carrion
--- OUTSIDE RECORDS SUMMARY | 2021-05-03 14:33 | XMS REPORT | Continuity of Care Document ---
:1940 Author Organization [facility] t Address [address] [place] [address] Care Team Providers Name Role Phone Cyn DEL REAL Primary Care Physician Unavailable HELENE Attending Clinician Unavailable Cyn DEL REAL Attending Clinician Unavailable Cyn Del Real MD Attending Clinician MAIDA Attending Clinician Unavailable Maida FOX Attending Clinician AGUILA, A Attending Clinician Unavailable SARMAD Attending Clinician Unavailable ANYI Attending Clinician Unavailable MIKE Attending Clinician Unavailable ZITA, A Attending Clinician Unavailable Brittni HENRY Attending Clinician Unavailable DOROTHY JIMENEZ Attending Clinician Unavailable DOROTHY JIMENEZ Attending Clinician Unavailable BIBI Attending Clinician Unavailable Benita YBARRA Attending Clinician Unavailable Saloni MCNAMARA Attending Clinician Unavailable HELENE Admitting Clinician Unavailable DOROTHY JIMENEZ Admitting Clinician Unavailable Cyn DEL REAL Admitting Clinician Unavailable Payers Payer Name Policy Type Policy Number Effective Date Expiration Date Saloni gill MEDICARE PART A [id number] 2004 \\T\\ B 00:00:00 [place] [employer] [id number] 2016 00:00:00 Problems Condition Condition Condition Status Onset Resolution Last Treating Co mments Source Name Details Category Date Date Treatment Clinician Date Inguinal Inguinal Disease Active Unive rs hernia hernia 6-24 ity of 00:00: [place] 00 Medical Branch Non-recurr Non-recurr Disease Active Overview : Univers ent ent 5-24 Formattin ity of bilateral bilateral 00:00: [place] inguinal inguinal 00 note Medica l hernia hernia might be Branch without without different obstructio obstructio from the n or n or original. gangrene gangrene Added automatic ally from request for surgery [id number] Acute Acute Disease Active Univers pancreatit pancreatit 3-01 it y of is is 00:00: [place] [facility] COVID-19 COVID-19 Disease Active Unive rs 2-01 ity of 00:00: [place] 00 Medical Branch Greater Greater Disease Active Overview: Univ ers trochanter trochanter 11-27 Formattin ity of ic ic 00:00: g of this [place] bursitis bursitis 00 note Medica l of left of left might be Branch hip hip different from the original. Added automatic ally from request for surgery [id number] SI SI Disease Active Overview: Univer s (sacroilia (sacroilia 11-27 Formattin ity of c) joint c) joint 00:00: g of this Luis Armando as dysfunctio dysfunctio 00 note Me dical n n might be Branch different from the original. Added automatic ally from request for surgery [id number] Onychomyco Onychomyco Disease Active 2018-06 U nivers sis of sis of 2-15 ity of toenail toenail 00:00: [place] [facility] Lumbar Lumbar Disease Active Univers spondylosi spondylosi 7-02 it y of s s 00:00: [place] [facility] Degenerati Degenerati Disease Active U nivers on of on of 603 ity of lumbar lumbar 00:00: [place] interverte interverte 00 Me dical bral disc bral disc Bran ch Lumbar Lumbar Disease Active Univers radiculopa radiculopa 6-03 it y of thy thy 00:00: [place] [facility] Myofascial Myofascial Disease Active U nivers pain pain 6-03 ity of 00:00: [place] 00 Medical Branch Elevated Elevated Disease Active Unive rs sed rate sed rate 4-17 ity of 00:00: [place] [id number] Medical Branch Low Low Disease Active Univers ferritin ferritin 3-27 ity of 00:00: [place] [facility] Type 2 Type 2 Disease Active Univers diabetes diabetes 1-17 ity of mellitus mellitus 00:00: [place] with with 00 Medical complicati complicati Br anch on, on, without without long-term long-term current current use of use of insulin insulin Bradycardi Bradycardi Disease Active 2017-06 U nivers a a 2-26 ity of 00:00: [place] 00 Medical Branch Weakness Weakness Disease Active 2017-06 Unive rs 2-26 ity of 00:00: [place] 00 Medical Branch Dizziness Dizziness Disease Active 2017-06 Uni vers 2-26 ity of 00:00: [place] [facility] Coronary Coronary Disease Active 2017-06 Unive rs artery artery 2- ity of disease disease 00:00: [place] involving involving 00 Medi monika [place] Branch coronary coronary artery of artery of [place] heart heart without without angina angina pectoris pectoris Essential Essential Disease Active 2017-06 Uni vers hypertensi hypertensi 2- it y of on on 00:00: [place] 00 Medical Branch PAF PAF Disease Active 2017-06 Univers (paroxysma (paroxysma 08-16 it y of l atrial l atrial 00:00: [place] fibrillati fibrillati 00 Me dical on) on) Branch Gastritis Gastritis Disease Active Uni vers 5-25 ity of 00:00: [place] [facility] Chronic Chronic Disease Active Univers fatigue fatigue 4-27 ity of 00:00: [place] 00 Medical Branch Colon Colon Disease Active Univers polyps polyps 1-05 ity of 00:00: [place] 00 Medical Branch Fatty Fatty Disease Active Univers liver liver 1-05 ity of 00:00: [place] 00 Medical Branch Migraines Migraines Disease Active Uni vers 1-05 ity of 00:00: [place] 00 Medical Branch Vitiligo Vitiligo Disease Active Unive rs 1-05 ity of 00:00: [place] [facility] Low Low Disease Active Univers testostero testostero 1-05 it y of ne ne 00:00: [place] [facility] Statin Statin Disease Active Univers intoleranc intoleranc 2-17 it y of e e 00:00: [place] [facility] Diabetic Diabetic Disease Active Overview: Un nyla polyneurop polyneurop 3-01 Formattin ity of athy athy 00:00: g of this [place] associated associated 00 note is M edmyles with type with type different B ranch 2 diabetes 2 diabetes from the mellitus mellitus original. Overview: Converted from Centricit y:Descrip tion - PERIPHERA L NEUROPATH YLast Assessmen t & Plan: Formattin g of this note might be different from the original. ASSESSMEN T:The patient's diabetes is improvedD iagnostic s Reviewed: Lab Results Component Value Date/Time HEMOGLOB IN A1C 6.1 (H) 8 0946 CHOLESTER OL 155 7 1017 LDL CHOLESTER OL CALCULATE D 68 7 1017 HDL CHOLESTER OL 33 (L) 7 1017 History Smoking Status Never Smoker Smokeless Tobacco Never Used [facility] Status Date Diabetic Eye Exam Overdue 06/21/2014 Done 06/21/2013 Seasonal Influenza Vaccine Next Due 03/21/2018 Done 03/21/2017 Imm Admin: Influenza (IM) Diabetic Foot Exam Next Due 09/30/2018 Done 09/30/2017 SmartData : WORKFLOW - DIABETES - DIABETIC FOOT EXAM PERFORMED Patient has more history with this topic... PLAN:Cont inue same medicatio ns Examine and protect feet , Occlusion Occlusion Disease Active Overview: Univers and and 08-19 Formattin ity of stenosis stenosis 00:00: g of this Luis Armando as of of note Medical unspecifie unspecifie might be Branch d carotid d carotid different artery artery from the original. Overview: Converted from Centricit y:Descrip tion - CAROTID ARTERY STENOSIS Anxiety Anxiety Disease Active Univers ity of [place] [facility] Allergies, Adverse Reactions, Alerts Allergy Allergy Status Severity Reaction(s) Onset Inactive Treating Comm ents Source Name Type Date Date Clinician Glimepir Propensi Active Anxiety Unive rs celine ty to 209 ity of adverse 00:00: [place] reaction 00 Medical s Branch Metformi Propensi Active Diarrhea Univ ers n ty to 209 ity of adverse 00:00: [place] reaction 00 Medical s Branch GLIMEPIR DRUG Active Anxiety Univers CELINE INGREDI 07-30 ity of 00:00: [place] 00 Medical Branch METFORMI DRUG Active Diarrhea Univer s N INGREDI 07-30 ity of 00:00: [place] 00 Medical Branch Statins- Propensi Active Other - See Severe U nivers Hmg-Coa ty to comments 217 myalgia ity of [place] adverse 00:00: [place] e reaction 00 Medical Inhibito s Branch rs STATINS- Drug Active Other-Cmnt Univ ers HMG-COA Class 2-17 ity of REDUCTAS 00:00: [place] E 00 Medical INHIBITO Branch RS Codeine Propensi Active Rash 2017-06 Univers ty to 2 ity of adverse 00:00: [place] reaction 00 Medical s Branch CODEINE DRUG Active Rash 2017-06 Univers INGREDI 2 ity of 00:00: [place] 00 Medical Branch Canaglif Propensi Active Other - See Genital Univers lozin ty to comments 01-18 mycotic ity of adverse 00:00: infection [place] reaction 00 s Medical s Branch CANAGLIF DRUG Active Other-Cmnt Univ ers LOZIN INGREDI 01-18 ity of 00:00: [place] 00 Medical Branch Social History Social Habit Start Date Stop Date Quantity Comments Source Exposure to Not sure [facility] SARS-CoV-2 [facility] [place] [facility] (event) Branch Alcohol intake 2021-01-20 2021-01-20 Current [facility] 00:00:00 00:00:00 non-drinker of [facility] alcohol Branch (finding) Tobacco use and 2018-06-15 2018-06-15 Never used Universit y of exposure 00:00:00 00:00:00 [facility] Sex [birth year] Universit y of 00:00:00 00:00:00 [facility] Smoking Status Start Date Stop Date Source Never smoker [facility] Medical Branch Medications Ordered Filled Start Stop Current Ordering Indication Dosage Frequency Signature Comments Components Source Medication Medication Date Date Medication? Clinician (SIG) Name Name Insulin Yes [id number] Use as Univ ers [place], 9-20 directed ity of Disposable, 00:00: twice [place] (PEN 00 daily to Medical NEEDLE) inject Branch gauge x insulin; " Ndle ICD-10 E11.65 blood sugar Yes [id number] USE TWICE Univers diagnostic 9-20 DAILY FOR ity of (ASCENSIA 00:00: BLOOD [place] MICROFILL) 00 GLUCOSE Medica l strip MONITORING Branch FOR ICD E11.9 insulin Yes [id number] 20U inject 20 U nivers aspart 9-20 Units ity of protamine-i 00:00: under the [place] nsulin 00 skin 2 Medical aspart (two) Branch (NOVOLOG times MIX 70-30 daily U-100 before INSULN) 100 breakfast unit/mL and (70-30) dinner. injection LISINOPRIL Yes [id number] TAKE 1 U nivers 20 mg 9-20 TABLET BY ity of tablet 00:00: MOUTH [place] 00 EVERY DAY Medical Branch Insulin Yes [id number] Use as Univ ers [place], 9-20 directed ity of Disposable, 00:00: twice [place] (PEN 00 daily to Medical NEEDLE) 32 inject Branch gauge x insulin; " Ndle ICD-10 E11.65 blood sugar Yes [id number] USE TWICE Univers diagnostic 9-20 DAILY FOR ity of (ASCENSIA 00:00: BLOOD [place] MICROFILL) 00 GLUCOSE Medica l strip MONITORING Branch FOR ICD E11.9 insulin Yes [id number] 20U inject 20 U nivers aspart 9-20 Units ity of protamine-i 00:00: under the [place] nsulin skin 2 Medical aspart (two) Branch (NOVOLOG times MIX 70-30 daily U-100 before INSULN) 100 breakfast unit/mL and (70-30) dinner. injection ESCITALOPRA Yes [id number] TAKE 1 Univers M OXALATE 8-25 TABLET BY ity o f 20 mg 00:00: MOUTH [place] tablet 00 EVERY DAY Medical Branch ESCITALOPRA Yes [id number] TAKE 1 Univers M OXALATE 8-25 TABLET BY ity o f 20 mg 00:00: MOUTH [place] tablet 00 EVERY DAY Medical Branch ibuprofen Yes [id number] 800mg Take 1 Univers 800 mg 7-19 tablet by ity of tablet 00:00: mouth [place] 00 every 8 Medical (eight) Branch hours as needed for Pain (scale 4-6). Take with snack or meals ibuprofen Yes [id number] 800mg Take 1 Univers 800 mg 7-19 tablet by ity of tablet 00:00: mouth [place] 00 every 8 Medical (eight) Branch hours as needed for Pain (scale 4-6). Take with snack or meals ibuprofen Yes [id number] 800mg Take 1 Univers 800 mg 7-19 tablet by ity of tablet 00:00: mouth [place] 00 every 8 Medical (eight) Branch hours as needed for Pain (scale 4-6). Take with snack or meals ibuprofen 2020-0 Yes [id number] 800mg Take 1 Univers 800 mg 7-19 tablet by ity of tablet 00:00: mouth [place] 00 every 8 Medical (eight) Branch hours as needed for Pain (scale 4-6). Take with snack or meals triamcinolo 2020-0 Yes [id number] Apply to Univers ne 0.025 % 7-14 [id number] area(s) 2 it y of cream 00:00: (two) [place] 00 times Medical daily. Branch triamcinolo 2020-0 Yes [id number] Apply to Univers ne 0.025 % 7-14 [id number] area(s) 2 it y of cream 00:00: (two) [place] 00 times Medical daily. Branch triamcinolo 2020-0 Yes [id number] Apply to Univers ne 0.025 % 7-14 [id number] area(s) 2 it y of cream 00:00: (two) [place] 00 times Medical daily. Branch triamcinolo 2020-0 Yes [id number] Apply to Univers ne 0.025 % 7-14 [id number] area(s) 2 it y of cream 00:00: (two) [place] 00 times Medical daily. Branch blood sugar 2020-0 Yes [id number] USE TWICE Univers diagnostic 7-04 DAILY FOR ity of (ASCENSIA 00:00: BLOOD [place] MICROFILL) 00 GLUCOSE Medica l strip MONITORING Branch FOR ICD E11.9 blood sugar 2020-0 Yes [id number] USE TWICE Univers diagnostic 7-04 DAILY FOR ity of (ASCENSIA 00:00: BLOOD [place] MICROFILL) 00 GLUCOSE Medica l strip MONITORING Branch FOR ICD E11.9 blood sugar 2020-0 202- No [id number] USE TWICE Univers diagnostic 7-04 09-20 DAILY FOR ity of (ASCENSIA 00:00: 00:00 BLOOD [place] MICROFILL) 00 :00 GLUCOSE Medica l strip MONITORING Branch FOR ICD E11.9 LISINOPRIL 2020-0 Yes [id number] TAKE 1 U nivers 20 mg 6-28 TABLET BY ity of tablet 00:00: MOUTH [place] 00 EVERY DAY Medical Branch LISINOPRIL 2020-0 Yes [id number] TAKE 1 U nivers 20 mg 6-28 TABLET BY ity of tablet 00:00: MOUTH [place] 00 EVERY DAY Medical Branch LISINOPRIL Yes [id number] TAKE 1 U nivers 20 mg 6-28 TABLET BY ity of tablet 00:00: MOUTH [place] 00 EVERY DAY Medical Branch LISINOPRIL 2020- No [id number] TAKE 1 Univers 20 mg 6-28 09-20 TABLET BY ity of tablet 00:00: 00:00 MOUTH [place] 00 :00 EVERY DAY Medical Branch VITAMIN D3 Yes Take by Uni vers ORAL 6-24 mouth. ity of 18:26: [place] [address] Medical Branch metroNIDAZO Yes 500mg Take 500 U nivers LE 500 mg 6-24 mg by ity of tablet 18:26: mouth [place] [address] every 8 Medical (eight) Branch hours. VITAMIN D3 Yes Take by Uni vers ORAL 6-24 mouth. ity of 18:26: [address] metroNIDAZO Yes 500mg Take 500 U nivers LE 500 mg 6-24 mg by ity of tablet 18:26: mouth [place] [address] every 8 Medical (eight) Branch hours. VITAMIN D3 Yes Take by Uni vers ORAL 6-24 mouth. ity of 13:26: [address] metroNIDAZO Yes 500mg Take 500 U nivers LE 500 mg 6-24 mg by ity of tablet 13:26: mouth [place] [address] every 8 Medical (eight) Branch hours. VITAMIN D3 Yes Take by Uni vers ORAL 6-24 mouth. ity of 13:26: [address] metroNIDAZO Yes 500mg Take 500 U nivers LE 500 mg 6-24 mg by ity of tablet 13:26: mouth [place] [address] every 8 Medical (eight) Branch hours. escitalopra 2020- No [id number] 20mg Take 1 Univers m oxalate -08 26-25 tablet by ity of 20 mg 00:00: 00:00 mouth [place] tablet 00 :00 daily. Medical Branch escitalopra 2020- No [id number] 20mg Take 1 Univers m oxalate 11-21-25 tablet by ity of 20 mg 00:00: 00:00 mouth [place] tablet 00 :00 daily. Medical Branch meloxicam Yes [id number] 7.5mg Take 1 Univers 7.5 mg 5-20 [id number] tablet by ity of tablet 00:00: mouth once [place] 00 daily as Medical needed Branch (pain). meloxicam Yes [id number] 7.5mg Take 1 Univers 7.5 mg 5-20 [id number] tablet by ity of tablet 00:00: mouth once [place] 00 daily as Medical needed Branch (pain). meloxicam Yes [id number] 7.5mg Take 1 Univers 7.5 mg 5-20 [id number] tablet by ity of tablet 00:00: mouth once [place] 00 daily as Medical needed Branch (pain). meloxicam Yes [id number] 7.5mg Take 1 Univers 7.5 mg 5-20 [id number] tablet by ity of tablet 00:00: mouth once [place] 00 daily as Medical needed Branch (pain). insulin Yes [id number] 20U inject 20 U nivers aspart 4-29 Units ity of protamine-i 00:00: under the [place] nsulin 00 skin 2 Medical aspart (two) Branch (NOVOLOG times MIX 70-30 daily U-100 before INSULN) 100 breakfast unit/mL and (70-30) dinner. injection insulin Yes [id number] 20U inject 20 U nivers aspart 4-29 Units ity of protamine-i 00:00: under [place] nsulin 00 skin 2 Medical aspart (two) Branch (NOVOLOG times MIX 70-30 daily U-100 before INSULN) 100 breakfast unit/mL and (70-30) dinner. injection insulin 2020- No [id number] 20U inject 20 Univers aspart 4-29 09-20 Units ity of protamine-i 00:00: 00:00 under the [place] nsulin 00 :00 skin 2 Medical aspart (two) Branch (NOVOLOG times MIX 70-30 daily U-100 before INSULN) 100 breakfast unit/mL and (70-30) dinner. injection Insulin Yes [id number] Use as Univ ers [place], 3-15 directed ity of Disposable, 00:00: twice [place] (PEN 00 daily to Medical NEEDLE) 32 inject Branch gauge x insulin; " Ndle ICD-10 E11.65 Insulin Yes [id number] Use as Univ ers [place], 3-15 directed ity of Disposable, 00:00: twice [place] (PEN 00 daily to Medical NEEDLE) 32 inject Branch gauge x insulin; " Ndle ICD-10 E11.65 Insulin 2020-0 2020- No [id number] Use as Uni vers [place], 09-02 directed ity of Disposable, 00:00: 00:00 [place] (PEN 00 :00 daily to Medical NEEDLE) 32 inject Branch gauge x insulin; " Ndle ICD-10 E11.65 finasteride 2020- Yes [id number] 5mg Take 1 Univers 5 mg tablet 1-19 tablet by ity of 00:00: mouth [place] 00 daily. Medical Branch finasteride 2019- Yes [id number] 5mg Take 1 Univers 5 mg tablet 1-19 tablet by ity of 00:00: mouth [place] 00 daily. [facility] Branch finasteride 2019- Yes [id number] 5mg Take 1 Univers 5 mg tablet 1-19 tablet by ity of 00:00: mouth [place] 00 daily. [facility] Branch finasteride 2019- Yes [id number] 5mg Take 1 Univers 5 mg tablet 1-19 tablet by ity of 00:00: mouth [place] 00 daily. [facility] Branch pantoprazol 2019- Yes [id number] 40mg Take 1 Univers e 40 mg EC 1-12 [id number] tablet by it y of tablet 00:00: mouth [place] 00 daily. Medical Branch pantoprazol 2019- Yes [id number] 40mg Take 1 Univers e 40 mg EC 1-12 [id number] tablet by it y of tablet 00:00: mouth [place] 00 daily. Medical Branch pantoprazol 2019- Yes [id number] 40mg Take 1 Univers e 40 mg EC 1-12 [id number] tablet by it y of tablet 00:00: mouth [place] 00 daily. Medical Branch pantoprazol 2019- Yes [id number] 40mg Take 1 Univers e 40 mg EC 1-12 [id number] tablet by it y of tablet 00:00: mouth [place] 00 daily. Medical Branch aspirin 81 2019-0 Yes 81mg Take 1 Unive rs mg chewable 1-05 tablet by ity of tablet 00:00: mouth [place] 00 daily. Medical Branch aspirin 81 2019-0 Yes 81mg Take 1 Unive rs mg chewable 1-05 tablet by ity of tablet 00:00: mouth [place] 00 daily. [facility] Branch aspirin 81 2019-0 Yes 81mg Take 1 Unive rs mg chewable 1-05 tablet by ity of tablet 00:00: mouth [place] 00 daily. Medical Branch aspirin 81 2019-0 Yes 81mg Take 1 Unive rs mg chewable 1-05 tablet by ity of tablet 00:00: mouth [place] 00 daily. Medical Branch Immunizations Ordered Filled Immunization Date Status Comments [facility] e Immunization Name Name Influenza High Dose 2020-04-19 Completed Unive rsity of [place] 00:00:00 [facility] Influenza High Dose 2020-04-19 Completed Unive rsity of [place] 00:00:00 [facility] Influenza High Dose 2020-04-19 Completed Unive rsity of [place] 00:00:00 [facility] Influenza High Dose 2020-04-19 Completed Unive rsity of [place] 00:00:00 [facility] Influenza High Dose 2019-04-11 Completed Unive rsity of 00:00:00 [facility] Influenza High Dose 2019-04-11 Completed Unive rsity of 00:00:00 [facility] Influenza High Dose 2019-04-11 Completed Unive rsity of 00:00:00 [facility] Influenza High Dose 2019-04-11 Completed Unive rsity of 00:00:00 [facility] Influenza High Dose 2018-03-01 Completed Unive rsity of 00:00:00 [facility] Influenza High Dose 2018-03-01 Completed Unive rsity of 00:00:00 [facility] Influenza High Dose 2018-03-01 Completed Unive rsity of 00:00:00 [facility] Influenza High Dose 2018-03-01 Completed Unive rsity of 00:00:00 [facility] Influenza Virus 2017-03-21 Completed Universit y of Vaccine 00:00:00 [facility] Influenza Virus 2017-03-21 Completed Universit y of Vaccine 00:00:00 [facility] Influenza Virus 2017-03-21 Completed Universit y of Vaccine 00:00:00 [facility] Influenza Virus 2017-03-21 Completed Universit y of Vaccine 00:00:00 [facility] TDAP 2015-10-03 Completed University of 00:00:00 [facility] TDAP 2015-10-03 Completed University of 00:00:00 [facility] TDAP 2015-10-03 Completed University of 00:00:00 [facility] TDAP 2015-10-03 Completed University of 00:00:00 [facility] Pneumococcal 2012-07-26 Completed University o f Polysaccharide, 00:00:00 [place] Med ical PPSV23 (PNEUMOVAX) Branch Pneumococcal 2012-07-26 Completed University o f Polysaccharide, 00:00:00 [place] Med ical PPSV23 (PNEUMOVAX) Branch Pneumococcal 2012-07-26 Completed University o f Polysaccharide, 00:00:00 [place] Med ical PPSV23 (PNEUMOVAX) Branch Pneumococcal 2012-07-26 Completed University o f Polysaccharide, 00:00:00 [place] Med ical PPSV23 (PNEUMOVAX) Branch Vital Signs Vital Name Observation Time Observation Value Comments Source Body height 2021-02-10 14:55:00 177.8 cm [facility] Body weight 2021-02-10 14:55:00 84.641 kg [facility] BMI 2021-02-10 14:55:00 26.77 kg/m2 [facility] Procedures This patient has no known procedures. Encounters Start End Encounter Admission Attending Care Care Encounter Source Date/Time Date/Time Type Type Clinicians Facility Department ID 2021-04-20 Outpatient HELENE [facility] DARIELA [id number] Univers 22:34:37 MARY bonnie [facility] 2021-04-20 Emergency [facility] [id number] [facility] 2021-05-05 Outpatient Serjio DEL REAL [facility] [id number] Univers 16:00:00 16:00:00 WONDIFUL [id number] ity o [facility] 2021-05-05 2021-05-05 Outpatient Serjio DEL REAL [facility] [id number] Univers 16:00:00 16:00:00 WONDIFUL ity o f [facility] 2021-04-11 2021-04-11 Outpatient Serjio DEL REAL [facility] [id number] Univers 15:45:00 15:45:00 WONDIFUL [id number] ity o f [facility] 2021-04-11 2021-04-11 Outpatient Serjio DEL REAL [facility] [id number] Univers 15:45:00 15:45:00 WONDIFUL ity o [facility] 2021-03-09 2021-03-09 [facility] [id number] Univers 00:00:00 00:00:00 [facility] [id number] ity of [place] [id number] Luis Armando as Professio [phone] [address] Office [address] 2021-03-07 2021-03-07 Telephone [facility] [id number] Univers 00:00:00 00:00:00 [facility] [id number] ity of [place] [id number] Luis Armando as [place]?[facility] [phone] Wi camila whalen [address] [place] [address] Office Building 2021-03-05 2021-03-05 Outpatient [facility] [id number] Univers 09:30:00 09:30:00 [id number]-10 2021-02-10 Outpatient Serjio BEY [facility] [id number] Univers 10:00:00 10:00:00 [id number] ity [facility] 2021-02-10 2021-02-10 Outpatient [facility] [id number] Univers 10:00:00 10:00:00 ity [facility] 2021-02-10 2021-02-10 Office Maida [facility] [id number] Univers 09:40:46 09:55:46 Visit Health [id number] it y [place] [id number] [place] [phone] [address] Office Building 2021-01-20 2021-01-20 Outpatient R [facility] [id number] Univers 08:00:00 08:00:00 [id number] ity [facility] 2021-01-20 2021-01-20 [facility] [id number] Univers 08:00:00 08:00:00 WONDIFUL ity o f [facility] 2021-01-17 2021-01-17 Outpatient R FREEDOM [facility] [id number] Univers 10:30:00 10:30:00 WONDIFUL [id number] ity o f [facility] 2021-01-17 2021-01-17 Outpatient R FREEDOM, [facility] [id number] Univers 10:30:00 10:30:00 WONDIFUL ity o f [facility] 2021-01-01 2021-01-01 Outpatient R [facility] [id number] Univers 16:20:00 16:20:00 [id number] [facility] 2021-01-01 2021-01-01 Outpatient R AGUILA, [facility] [id number] Univers 16:20:00 16:20:00 [facility] 2020-12-30 2020-12-30 Outpatient R SHEELARosalina, [facility] [id number] Univers 15:00:00 15:00:00 [facility] 2020-12-30 2020-12-30 Outpatient R SARMAD, [facility] [id number] Univers 09:15:00 09:15:00 JANEE [id number] [facility] 2020-12-24 2020-12-24 Outpatient R HELENE, [facility] [id number] Univers 15:45:00 15:45:00 [facility] 2020-12-12 2020-12-12 Outpatient R FREEDOM [facility] [id number] Univers 16:30:00 16:30:00 WONDIFUL [id number] ity o f [facility] 2020-12-09 2020-12-09 Outpatient [facility] [id number] Univers 11:15:00 11:15:00 [id number] [facility] 2020-12-09 2020-12-09 Outpatient R ANYI, [facility] [id number] Univers 11:15:00 11:15:00 ANYI [facility] 2020-11-07 2020-11-07 Outpatient [facility] [id number] Univers 13:00:00 13:00:00 [id number] [facility] 2020-11-07 2020-11-07 Outpatient R [facility] [id number] Univers 13:00:00 13:00:00 ity [facility] 2020-11-05 2020-11-05 Outpatient R HELENE [facility] [id number] Univers 15:45:00 15:45:00 MARY [id number] ity [facility] 2020-11-05 2020-11-05 Outpatient R HELENE [facility] [id number] Univers 15:45:00 15:45:00 [facility] 2020-11-04 Outpatient R SARMAD [facility] [id number] Univers 14:00:00 14:00:00 JANEE [id number] [facility] 2020-11-04 2020-11-04 Outpatient R SARMAD [facility] [id number] Univers 14:00:00 14:00:00 [facility] 2020-10-28 2020-10-28 Outpatient R SARMAD [facility] [id number] Univers 13:30:00 13:30:00 JANEE [id number] [facility] 2020-10-28 2020-10-28 Outpatient R SARMAD [facility] [id number] Univers 13:30:00 13:30:00 [facility] 2020-10-17 2020-10-17 Outpatient R FREEDOM [facility] [id number] Univers 10:45:00 10:45:00 WONDIFUL [id number] ity o f [facility] 2020-10-17 2020-10-17 Outpatient R FREEDOM, [facility] [id number] Univers 10:45:00 10:45:00 WONDIFUL ity o f [facility] 2020-10-07 2020-10-07 Outpatient R SARMAD [facility] [id number] Univers 09:45:00 09:45:00 [facility] [id number] [facility]-10-[facility] 2020-10-07 Outpatient R SARMAD [facility] [id number] Univers 09:45:00 09:45:00 [facility] 2020-09-12 2020-09-12 Outpatient R SARMAD [facility] [id number] Univers 09:30:00 09:30:00 JANEE [id number] ity [facility] 2020-09-12 2020-09-12 Outpatient R SARMAD [facility] [id number] Univers 09:30:00 09:30:00 [facility] 2020-09-10 2020-09-10 Outpatient R MIKE [facility] [id number] Univers 16:15:00 16:15:00 EVELIN [id number] [facility] 2020-09-10 2020-09-10 Outpatient R MIKE [facility] [id number] Univers 16:15:00 16:15:00 EVELIN [facility] 2020-09-02 2020-09-02 Outpatient R FREEDOM, [facility] [id number] Univers 14:00:00 14:00:00 WONDIFUL [id number] ity o f [facility] 2020-09-02 2020-09-02 Outpatient R FREEDOM, [facility] [id number] Univers 14:00:00 14:00:00 WONDIFUL ity o f [facility] 2020-08-30 2020-08-30 Outpatient R FREEDOM, [facility] [id number] Univers 16:00:00 16:00:00 WONDIFUL [id number] ity o [facility] 2020-08-30 2020-08-30 Outpatient R FREEDOM, [facility] [id number] Univers 16:00:00 16:00:00 WONDIFUL ity o f [facility] 2020-08-20 2020-08-20 [facility]phone [facility] [id number] 00:00:00 00:00:00 [facility] [id number] [place] [id number] [phone] nal [address] 2020-08-09 2020-08-09 Outpatient R FREEDOM [facility] [id number] Univers 11:00:00 11:00:00 WONDIFUL [id number] ity o f [facility] 2020-08-05 2020-08-05 Outpatient R SARMAD [facility] [id number] Univers 14:00:00 14:00:00 JANEE [id number] ity [facility] 2020-08-05 2020-08-05 Outpatient R SARMAD [facility] [id number] Univers 14:00:00 14:00:00 [facility] 2020-07-23 2020-07-23 [facility]phone [facility] [id number] 00:00:00 00:00:00 [facility] [id number] [place] [id number] Professio [phone] nal 044 [address] [facility] 2020-07-19 2020-07-19 Outpatient R FREEDOM, [facility] [id number] Univers 11:00:00 11:00:00 WONDIFUL [id number] ity o f [facility] 2020-07-19 2020-07-19 Outpatient R FREEDOM, [facility] [id number] Univers 11:00:00 11:00:00 WONDIFUL ity o f [facility] 2020-07-19 2020-07-19 Office [facility] [id number] 08:01:11 10:21:48 Visit [facility] [id number] [place] [id number] Professio [phone] nal 044 [address] 2020-07-19 2020-07-19 Outpatient R FREEDOM, [facility] [id number] Univers 08:00:00 08:00:00 WONDIFUL ity o f [facility] 2020-05-10 2020-05-10 Outpatient R [facility] [id number] Univers 08:00:00 08:00:00 [id number] ity [facility] 2020-05-10 2020-05-10 Outpatient R FREEDOM, [facility] [id number] Univers 08:00:00 08:00:00 WONDIFUL ity o f [facility] 2020-05-09 2020-05-09 Outpatient R FREEDOM, [facility] [id number] Univers 13:00:00 13:00:00 WONDIFUL [id number] ity o f [facility] 2020-05-09 2020-05-09 Outpatient R FREEDOM, [facility] [id number] Univers 13:00:00 13:00:00 WONDIFUL ity o f [facility] 2020-04-29 2020-04-29 Outpatient R FREEDOM, [facility] [id number] Univers 13:00:00 13:00:00 WONDIFUL ity o f [facility] 2020-04-29 2020-04-29 Outpatient R FREEDOM [facility] [id number] Univers 13:00:00 13:00:00 WONDIFUL ity o f [facility] 2020-04-19 2020-04-19 Outpatient R FREEDOM [facility] [id number] Univers 16:00:00 16:00:00 WONDIFUL ity o f [facility] 2020-04-19 2020-04-19 Outpatient R FREEDOM, [facility] [id number] Univers 16:00:00 16:00:00 WONDIFUL ity o f [facility] 2020-04-16 2020-04-16 Outpatient R HELENE, [facility] [id number] Univers 13:30:00 13:30:00 MARY [id number] ity of [facility] 2020-04-16 2020-04-16 Outpatient R NARAYAN, [facility] [id number] Univers 13:30:00 13:30:00 MARY ity [facility] 2020-04-02 2020-04-02 Outpatient R NARAYAN, [facility] [id number] Univers 13:30:00 13:30:00 MARY [id number] ity of [facility] 2020-04-02 2020-04-02 Outpatient R NARAYAN, [facility] [id number] Univers 13:30:00 13:30:00 MARY hallbonnie [facility] 2020-03-21 2020-03-21 Outpatient R [facility] [id number] Univers 13:20:00 13:20:00 ity [facility] 2020-03-21 2020-03-21 Outpatient R [facility] [id number] Univers 13:20:00 13:20:00 ity of [facility] 2020-03-13 2020-03-13 Outpatient R ZITA, [facility] [id number] Univers 13:30:00 13:30:00 JEROME [id number] ity [facility] 2020-03-13 2020-03-13 Outpatient R ZITA, [facility] [id number] Univers 13:30:00 13:30:00 JEROME ity [facility] 2020-03-05 2020-03-05 Outpatient R HELENE, [facility] [id number] Univers 14:00:00 14:00:00 MARY [id number] ity [facility] 2020-03-05 2020-03-05 Outpatient R NARAYAN, [facility] [id number] Univers 14:00:00 14:00:00 [facility] 2020-01-29 2020-01-29 Outpatient R FREEDOM, [facility] [id number] Univers 10:00:00 10:00:00 WONDIFUL ity o f [facility] 2020-01-24 2020-01-24 [facility] [id number] Univers 13:00:00 13:00:00 [facility] 2020-01-24 [facility] [id number] Univers 13:00:00 13:00:00 HEATHER [facility] 2020-01-18 2020-01-18 Outpatient R ELAINE [facility] [id number] Univers 13:15:00 13:15:00 [facility]-01-18 2020-01-18 [facility] [id number] Univers 13:15:00 13:15:00 [facility] 2020-01-15 2020-01-15 Outpatient R ELINOR JIMENEZ [facility] [id number] Univers 14:30:00 14:30:00 ELINOR JIMENEZ [id number] ity [facility] 2020-01-15 2020-01-15 Outpatient R ELINOR JIMENEZ [facility] [id number] Univers 14:30:00 14:30:00 ELINOR JIMENEZ itbonnie [facility] 2020-01-11 2020-01-11 Outpatient R ELAINE, [facility] [id number] Univers 14:15:00 14:15:00 HEATHER [id number] ity [facility] 2020-01-11 2020-01-11 Outpatient R ELAINE, [facility] [id number] Univers 14:15:00 14:15:00 HEATHER [facility] 2019-12-19 2019-12-19 Outpatient R BIBI, [facility] [id number] Univers 10:00:00 10:00:00 CINDY ity o f [facility] 2019-12-13 2019-12-13 Outpatient R ELINOR JIMENEZ [facility] [id number] Univers 07:19:00 09:45:00 [facility] 2019-12-10 Outpatient [facility] [id number] Univers 16:00:00 16:00:00 [id number] [facility] 2019-12-10 2019-12-10 Outpatient R AMADA, [facility] [id number] Univers 16:00:00 16:00:00 ZARA [facility] 2019-12-08 2019-12-08 Outpatient R FREEDOM, [facility] [id number] Univers 16:15:00 16:15:00 WONDIFUL [id number] ity o f [facility] 2019-12-08 2019-12-08 Outpatient R FREEDOM, [facility] [id number] Univers 16:15:00 16:15:00 WONDIFUL ity o f [facility] 2019-11-28 2019-11-28 Outpatient R ELINOR JIMENEZ [facility] [id number] Univers 13:30:00 13:30:00 ELINOR JIMENEZ ity [facility] 2019-11-28 2019-11-28 Outpatient R ELINOR JIMENEZ [facility] [id number] Univers 13:30:00 13:30:00 [facility] 2019-11-23 2019-11-23 Outpatient R HELENE [facility] [id number] Univers 10:30:00 10:30:00 MARY ity [facility] 2019-11-23 2019-11-23 Outpatient R HELENE [facility] [id number] Univers 10:30:00 10:30:00 MARY itbonnie [facility] 2019-11-06 2019-11-06 Outpatient Serjio DEL REAL [facility] [id number] Univers 13:45:00 13:45:00 WONDIFUL [id number] ity o f [facility] 2019-11-06 2019-11-06 Outpatient Serjio DEL REAL [facility] [id number] Univers 13:45:00 13:45:00 WONDIFUL ity o f [facility] 2019-10-31 2019-10-31 Outpatient R HELENE [facility] [id number] Univers 12:29:42 23:59:00 [facility] 2019-10-31 2019-10-31 Outpatient R HELENE, [facility] [id number] Univers 13:00:00 13:00:00 [facility] [id number] [facility]-10-[facility] 2019-10-24 Outpatient R HELENE [facility] [id number] Univers 13:30:00 13:30:00 [facility] 2019-10-24 2019-10-24 Outpatient R HELENE [facility] [id number] Univers 13:30:00 13:30:00 M[facility] 2019-10-02 2019-10-02 Outpatient ZITA, [facility] [id number] Univers 14:15:00 14:15:00 JEROME [id number] [facility] 2019-09-20 2019-09-20 Outpatient Serjio MCNAMARA [facility] [id number] Univers 13:30:00 13:30:00 [facility] 2019-09-20 Outpatient Serjio MCNAMARA [facility] [id number] Univers 13:30:00 13:30:00 ORIN [facility] 2019-09-18 2019-09-18 Outpatient Serjio DEL REAL [facility] [id number] Univers 16:15:00 16:15:00 WONDIFUL itbonnie o [facility] 2019-09-18 2019-09-18 Outpatient Serjio DEL REAL [facility] [id number] Univers 16:15:00 16:15:00 WONDIFUL itbonnie o [facility] 2019-09-12 2019-09-12 Outpatient Serjio NARAYAN [facility] [id number] Univers 14:45:00 14:45:00 MARY [id number] bonnie [facility] 2019-09-12 2019-09-12 Outpatient Serjio NARAYAN [facility] [id number] Univers 14:45:00 14:45:00 MARY bonnie [facility] 2019-09-08 2019-09-08 Outpatient Serjio DEL REAL [facility] [id number] Univers 11:15:00 11:15:00 WONDIFUL itbonnie keene [facility] 2019-09-08 2019-09-08 Outpatient Serjio DEL REAL [facility] [id number] Univers 11:15:00 11:15:00 WONDIFUL itbonnie keene [facility] 2018-10-03 2018-10-03 Outpatient Serjio DEL REAL [facility] [id number] Univers 12:17:25 14:32:00 WONDIFUL bonnie [facility] Results This patient has no known results.
== END 2021-04-26 20:01 | disposition home or self-care (01) ==
LOC: ER 15:49
DX: E86.0 Dehydration (principal); R10.9 Unspecified abdominal pain; I10 Essential (primary) hypertension; E11.9 Type 2 diabetes mellitus without complications; Z79.82 Long term (current) use of aspirin; Z79.4 Long term (current) use of insulin; Z88.5 Allergy status to narcotic agent
CPT/HCPCS: 93005; 85025; 80048; 36415; 83735; 85610; 80076; 84484; 83690; 70450; 72125; 70486; 76377; 74177; 71045; 96375; 96374; 99284; Q9967; J7040; J2405; 81003; 81015

== ENCOUNTER 2021-10-24 14:21 | Emergency (ER) | payer OTHER ==
--- OUTSIDE RECORDS SUMMARY | 2021-10-24 14:25 | XMS REPORT | Continuity of Care Document ---
:1940 Author Organization [facility] t Address [facility] [place] [address] Care Team Providers Name Role Phone Freedom FOX, A Primary Care Physician MELITA K.HErcika Attending Clinician Unavailable ALYCIA BLOUNT Attending Clinician Unavailable ALYCIA BLOUNT Attending Clinician Unavailable Demetriushiamari ROMERO Attending Clinician EBRAHIM Attending Clinician Unavailable Cyn Loja MD Attending Clinician Dorothy Mariano MD Attending Clinician DOROTHY MARIANO Attending Clinician Unavailable DOROTHY MARIANO Attending Clinician Unavailable ANECELESTE Attending Clinician Unavailable Doctor Unassigned, Name Attending Clinician Unavailable Payers Payer Name Policy Type Policy Number Effective Date Expiration Date S bridget MEDICARE PART A [id number] 2004 \\T\\ B 00:00:00 [employer] [id number] 2016 00:00:00 Problems Condition Condition Condition Status Onset Resolution Last Treating Co mments Source Name Details Category Date Date Treatment Clinician Date Acute Acute Disease Active NPI:183 cardioembo cardioembo 3 38192 lic stroke lic stroke 00:00: 00 PRITESH PRITESH Disease Active 2020-06 NPI:183 (obstructi (obstructi 2 13 07653 ve sleep ve sleep 00:00: apnea) apnea) 00 Iron Iron Disease Active 2020-06 NPI:183 deficiency deficiency 07-12 00:00: 00 Osteoarthr Osteoarthr Disease Active 2020-06 N PI:183 itis of itis of 16 [id number] left left 00:00: shoulder shoulder 00 Inguinal Inguinal Disease Active NPI:1 83 hernia hernia 12-12 0299858 00:00: 00 Non-recurr Non-recurr Disease Active Overview : NPI:183 ent ent 11-11 Formattin 4578640 bilateral bilateral 00:00: g of this inguinal inguinal 00 note hernia hernia might be without without different obstructio obstructio from the n or n or original. gangrene gangrene Added automatic ally from request for surgery [id number] Acute Acute Disease Active NPI:183 pancreatit pancreatit 08-19 is is 00:00: 00 COVID-19 COVID-19 Disease Active NPI:1 83 2- 6537269 00:00: 00 Greater Greater Disease Active Overview: NPI: 183 trochanter trochanter 11-27 Formattin 6586273 ic ic 00:00: g of this bursitis bursitis 00 note of left of left might be hip hip different from the original. Added automatic ally from request for surgery [id number] SI SI Disease Active Overview: NPI:18 3 (sacroilia (sacroilia 11-27 Formattin 1879314 c) joint c) joint 00:00: g of this dysfunctio dysfunctio 00 note n n might be different from the original. Added automatic ally from request for surgery [id number] Onychomyco Onychomyco Disease Active 2018-06 N PI:183 sis of sis of 15 7491995 toenail toenail 00:00: 00 Lumbar Lumbar Disease Active NPI:183 spondylosi spondylosi 12-20 27094 s s 00:00: 00 Degenerati Degenerati Disease Active N PI:183 on of on of 11-21 8849876 lumbar lumbar 00:00: interverte interverte 00 bral disc bral disc Lumbar Lumbar Disease Active NPI:183 radiculopa radiculopa 6-03 13 03821 thy thy 00:00: 00 Myofascial Myofascial Disease Active N PI:183 pain pain 6-03 0776590 00:00: 00 Elevated Elevated Disease Active NPI:1 83 sed rate sed rate 4-17 826594 1 00:00: 00 Low Low Disease Active NPI:183 ferritin ferritin 3-27 409713 1 00:00: 00 Type 2 Type 2 Disease Active NPI:183 diabetes diabetes 1-17 111320 1 mellitus mellitus 00:00: with with 00 complicati complicati on, on, without without long-term long-term current current use of use of insulin insulin Bradycardi Bradycardi Disease Active 2017-06 N PI:183 a a 2- 9676156 00:00: 00 Weakness Weakness Disease Active 2017-06 NPI:1 83 2- 5563742 00:00: 00 Dizziness Dizziness Disease Active 2017-06 NPI :183 2- 5249191 00:00: 00 Coronary Coronary Disease Active 2017-06 NPI:1 83 artery artery 2- 5924787 disease disease 00:00: involving involving 00 [place] coronary coronary artery of artery of [place] heart heart without without angina angina pectoris pectoris Essential Essential Disease Active 2017-06 NPI :183 hypertensi hypertensi 2 13 02889 on on 00:00: 00 PAF PAF Disease Active 2017-06 NPI:183 (paroxysma (paroxysma 08-16 13 27701 l atrial l atrial 00:00: fibrillati fibrillati 00 on) on) Gastritis Gastritis Disease Active NPI :183 5-25 1739340 00:00: 00 Chronic Chronic Disease Active NPI:183 fatigue fatigue 4-27 5086009 00:00: 00 Colon Colon Disease Active NPI:183 polyps polyps 1-05 5841023 00:00: 00 Fatty Fatty Disease Active NPI:183 liver liver 1-05 0501959 00:00: 00 Migraines Migraines Disease Active NPI :183 1-05 8403662 00:00: 00 Vitiligo Vitiligo Disease Active NPI:1 83 1-05 7944950 00:00: 00 Low Low Disease Active NPI:183 testostero testostero 1-05 13 82805 ne ne 00:00: 00 Statin Statin Disease Active NPI:183 intoleranc intoleranc 2-17 13 93746 e e 00:00: 00 Diabetic Diabetic Disease Active Overview: [facility] I:183 polyneurop polyneurop 3 Formattin 2913406 athy athy 00:00: g of this associated associated 00 note is with type with type different 2 diabetes 2 diabetes from the mellitus [...] Status Never Smoker Smokeless Tobacco Never Used frentingtenRisk Management Solution ce Status Date Diabetic Eye Exam Overdue 06/21/2014 Done 06/21/2013 Seasonal Influenza Vaccine Next Due 03/21/2018 Done 03/21/2017 Imm Admin: Influenza (IM) Diabetic Foot Exam Next Due 09/30/2018 Done 09/30/2017 SmartData : WORKFLOW - DIABETES - DIABETIC FOOT EXAM PERFORMED Patient has more history with this topic... PLAN:Cont inue same medicatio ns Examine and protect feet , Occlusion Occlusion Disease Active Overview: NPI:183 and and 3 Formattin 4440137 stenosis stenosis 00:00: g of this of of 00 note unspecifie unspecifie might be d carotid d carotid different artery artery from the original. Overview: Converted from [employer] y:Descrip tion - CAROTID ARTERY STENOSIS Anxiety Anxiety Disease Active NPI:113 [id number] Allergies, Adverse Reactions, Alerts Allergy Allergy Status Severity Reaction(s) Onset Inactive Treating Comm ents Source Name Type Date Date Clinician Ibuprofe Propensi Active Nausea Patient NPI:1 83 n ty to and/or 06-28 notes hx [id number] adverse Vomiting 00:00: of reaction 00 stentsAbd s ominal discomfor t when taking ibuprofen IBUPROFE DRUG Active N/V NPI:183 N INGREDI 06-28 6776268 00:00: 00 Glimepir Propensi Active Anxiety NPI:1 83 celine ty to 07-30 6859061 adverse 00:00: reaction 00 s GLIMEPIR DRUG Active Anxiety NPI:183 CELINE INGREDI 07-30 8774274 00:00: 00 Statins- Propensi Active Other - See Severe N PI:183 Hmg-Coa ty to comments 2 myalgia 635018 1 Reductas adverse 00:00: e reaction 00 Inhibito s rs STATINS- Drug Active Other-Cmnt NPI: 183 HMG-COA Class 2 7969932 REDUCTAS 00:00: E 00 INHIBITO RS Codeine Propensi Active Rash 2017-06 NPI:183 ty to 08-16 6937378 adverse 00:00: reaction 00 s CODEINE DRUG Active Rash 2017-06 NPI:183 INGREDI 08-16 3945008 00:00: 00 Canaglif Propensi Active Other - See Genital NPI:183 lozin ty to comments 01-18 mycotic 3603323 adverse 00:00: infection reaction 00 s s CANAGLIF DRUG Active Other-Cmnt NPI: 183 LOZIN INGREDI 01-18 6642179 00:00: 00 Social History Social Habit Start Date Stop Date Quantity Comments Source Exposure to 2021-10-13 2021-10-23 Not sure NPI:[id number] 1 SARS-CoV-2 00:00:00 17:50:00 (event) Alcohol intake 2021-10-23 2021-10-23 Current NPI:[id number] 0036 00:00:00 00:00:00 non-drinker of alcohol (finding) Tobacco use and 2018-06-15 2018-06-15 Never used NPI:88641 25373 exposure 00:00:00 00:00:00 Sex [birth year] At [birth year] NPI:96843 10926 00:00:00 00:00:00 Smoking Status Start Date Stop Date Source Never smoker Medications Ordered Filled Start Stop Current Ordering Indication Dosage Frequency Signature Comments Components Source Medication Medication Date Date Medication? Clinician (SIG) Name Name CANDESARTAN Yes [id number] 4mg TAKE 1 NPI:183 4 mg tablet 5-05 TABLET BY 131 8781 00:00: MOUTH 00 DAILY. REPLACES LISINOPRIL . CANDESARTAN Yes [id number] 4mg TAKE 1 NPI:183 4 mg tablet 5-05 TABLET BY 131 8781 00:00: MOUTH 00 DAILY. REPLACES LISINOPRIL . aspirin 0 Yes 81mg Take 81 mg NPI: 183 (ADULT LOW 4-19 by mouth 75365 81 DOSE 16:17: daily. ASPIRIN) 81 32 mg EC tablet aspirin 0 Yes 81mg Take 81 mg NPI: 183 (ADULT LOW 4-19 by mouth 36247 81 DOSE 16:17: daily. ASPIRIN) 81 32 mg EC tablet aspirin 0 Yes 81mg Take 81 mg NPI: 183 (ADULT LOW 4-19 by mouth 00993 81 DOSE 16:17: daily. ASPIRIN) 81 32 mg EC tablet aspirin 0 Yes 81mg Take 81 mg NPI: 183 (ADULT LOW 4-19 by mouth 94349 81 DOSE 16:17: daily. ASPIRIN) 81 32 mg EC tablet aspirin 2021-0 Yes 81mg Take 81 mg NPI: 183 (ADULT LOW 4-19 by mouth 68719 81 DOSE 16:17: daily. ASPIRIN) 81 32 mg EC tablet metformin 0 Yes [id number] 500mg Take 1 N PI:183 ER 500 mg 4-19 [place] 469[address] 81 24 hr 00:00: mouth 2 tablet 00 (two) times daily with meals. metformin 0 Yes [id number] 500mg Take 1 N PI:183 ER 500 mg 4-19 [place] 76783 81 24 hr 00:00: mouth 2 tablet 00 (two) times daily with meals. metformin 2021-0 Yes [id number] 500mg Take 1 N PI:183 ER 500 mg 4-19 [place] [address] 81 24 hr 00:00: mouth 2 tablet 00 (two) times daily with meals. metformin 2021-0 Yes [id number] 500mg Take 1 N PI:183 ER 500 mg 4-19 [place] 23092 81 24 hr 00:00: mouth 2 tablet 00 (two) times daily with meals. metformin 2022-0 Yes [id number] 500mg Take 1 N PI:183 ER 500 mg 4-19 [place] 82350 81 24 hr 00:00: mouth 2 tablet 00 (two) times daily with meals. fluticasone 2-0 Yes [id number] 2{spray Use 2 NPI:183 propionate 3-21 } Sprays in 1318 781 50 00:00: each mcg/actuati 00 nostril on nasal daily. spray guaiFENesin 2021-0 Yes [id number] 100mg Take 5 mL NPI:183 100 mg/5 mL 3-21 by mouth 1318 781 solution 00:00: every 4 00 (four) hours as needed for Cough. fluticasone 2021-0 Yes [id number] 2{spray Use 2 NPI:183 propionate 3-21 } Sprays in [facility]8 781 50 00:00: each mcg/actuati 00 nostril on nasal daily. spray guaiFENesin 2-0 Yes [id number] 100mg Take 5 mL NPI:183 100 mg/5 mL 3-21 by mouth 1318 781 solution 00:00: every 4 00 (four) hours as needed for Cough. fluticasone 2021-0 Yes [id number] 2{spray Use 2 NPI:183 propionate 3-21 } Sprays in 1318 781 50 00:00: each mcg/actuati 00 nostril on nasal daily. spray guaiFENesin 2021-0 Yes [id number] 100mg Take 5 mL NPI:183 100 mg/5 mL 3-21 by mouth 1318 781 solution 00:00: every 4 00 (four) hours as needed for Cough. fluticasone 2-0 Yes [id number] 2{spray Use 2 NPI:183 propionate 3-21 } Sprays in 1318 781 50 00:00: each mcg/actuati 00 nostril on nasal daily. spray guaiFENesin 2022-0 Yes [id number] 100mg Take 5 mL NPI:183 100 mg/5 mL 3-21 by mouth 1318 781 solution 00:00: every 4 00 (four) hours as needed for Cough. fluticasone 2022-0 Yes [id number] 2{spray Use 2 NPI:183 propionate 3-21 } Sprays in 1318 781 50 00:00: each mcg/actuati 00 nostril on nasal daily. spray guaiFENesin Yes [id number] 100mg Take 5 mL NPI:183 100 mg/5 mL 3-21 by mouth 1318 781 solution 00:00: every 4 00 (four) hours as needed for Cough. CBD-KINGS 2021-0 Yes Apply to NPI :183 WITH 3-12 area(s). [id number] LIDOCAINE 19:59: TOPICAL 46 CBD-KINGS 2021-0 Yes Apply to NPI :183 WITH 3-12 area(s). 0035566 LIDOCAINE 19:59: TOPICAL 46 CBD-KINGS 2022-0 Yes Apply to NPI :183 WITH 3-12 area(s). 3715921 LIDOCAINE 19:59: TOPICAL 46 CBD-KINGS 202-0 Yes Apply to NPI :183 WITH 3-12 area(s). [id number] LIDOCAINE 19:59: TOPICAL 46 CBD-KINGS 2022-0 Yes Apply to NPI :183 WITH 3-12 area(s). [id number] LIDOCAINE 19:59: TOPICAL 46 apixaban 2021-0 2021- Yes 1358 5mg Take 1 NPI:18 3 (ELIQUIS) 5 08-30 tablet by 13 92707 mg tablet 00:00: 04:59 mouth 2 00 :00 (two) times daily for 180 days. Indication s: atrial fibrillati on apixaban 2021-0 2021- Yes 1358 5mg Take 1 NPI:18 3 (ELIQUIS) 5 08-30 tablet by 13 16926 mg tablet 00:00: 04:59 mouth 2 00 :00 (two) times daily for 180 days. Indication s: atrial fibrillati on apixaban 2021-0 2021- Yes 1358 5mg Take 1 NPI:18 3 (ELIQUIS) 5 08-30 tablet by 13 17868 mg tablet 00:00: 04:59 mouth 2 00 :00 (two) times daily for 180 days. Indication s: atrial fibrillati on apixaban 2021-0 2021- Yes 1358 5mg Take 1 NPI:18 3 (ELIQUIS) 5 08-30 tablet by 13 48828 mg tablet 00:00: 04:59 mouth 2 00 :00 (two) times daily for 180 days. Indication s: atrial fibrillati on apixaban 2021-0 2021- Yes 1358 5mg Take 1 NPI:18 3 (ELIQUIS) 5 3-12 09-09 tablet by 13 21381 mg tablet 00:00: 04:59 mouth 2 00 :00 (two) times daily for 180 days. Indication s: atrial fibrillati on FINASTERIDE 2020-06 Yes [id number] TAKE 1 NPI:183 5 mg tablet 2-14 TABLET BY 131 8781 00:00: MOUTH 00 EVERY DAY FINASTERIDE 2020-06 Yes [id number] TAKE 1 NPI:183 5 mg tablet 2-14 TABLET BY 131 8781 00:00: MOUTH 00 EVERY DAY FINASTERIDE 2020-06 Yes [id number] TAKE 1 NPI:183 5 mg tablet 2-14 TABLET BY 131 8781 00:00: MOUTH 00 EVERY DAY FINASTERIDE 2020-06 Yes [id number] TAKE 1 NPI:183 5 mg tablet 2-14 TABLET BY 131 8781 00:00: MOUTH 00 EVERY DAY FINASTERIDE 2020-06 Yes [id number] TAKE 1 NPI:183 5 mg tablet 2-14 TABLET BY 131 8781 00:00: MOUTH 00 EVERY DAY PANTOPRAZOL 2020-06 Yes [id number] TAKE 1 NPI:183 E 40 mg EC 1-23 323947 TABLET BY 13 59259 tablet 00:00: MOUTH 00 EVERY DAY PANTOPRAZOL 2020-06 Yes [id number] TAKE 1 NPI:183 E 40 mg EC 1-23 232187 TABLET BY 13 88639 tablet 00:00: MOUTH 00 EVERY DAY PANTOPRAZOL 2020-06 Yes [id number] TAKE 1 NPI:183 E 40 mg EC 1-23 044437 TABLET BY 13 02800 tablet 00:00: MOUTH 00 EVERY DAY PANTOPRAZOL 2020-06 Yes [id number] TAKE 1 NPI:183 E 40 mg EC 1-23 809113 TABLET BY 13 94266 tablet 00:00: MOUTH 00 EVERY DAY PANTOPRAZOL 2020-06 Yes [id number] TAKE 1 NPI:183 E 40 mg EC 1-23 877327 TABLET BY 13 18264 tablet 00:00: MOUTH 00 EVERY DAY escitalopra 2020-06 Yes [id number] 10mg Take 1 NPI:183 m [place]alate 1-[place] [address] 81 10 mg 00:00: mouth tablet 00 daily. candesartan 2020-06 Yes [id number] 4mg Take 1 NPI:183 4 mg tablet 1-15 tablet by 131 8781 00:00: mouth 00 daily. REPLACES LISINOPRIL . escitalopra 2020-06 Yes [id number] 10mg Take 1 NPI:183 m [place]alate 1-[place] [address] 81 10 mg 00:00: mouth tablet 00 daily. escitalopra 2020-06 Yes [id number] 10mg Take 1 NPI:183 m [place]alate 1-[place] [address] 81 10 mg 00:00: mouth tablet 00 daily. escitalopra 2020-06 Yes [id number] 10mg Take 1 NPI:183 m oxalate 1-15 [place] 71333 81 10 mg 00:00: mouth tablet 00 daily. candesartan 2020-06 Yes [id number] 4mg Take 1 NPI:183 4 mg tablet 1-15 tablet by 131 8781 00:00: mouth 00 daily. REPLACES LISINOPRIL . escitalopra 2020-06 Yes [id number] 10mg Take 1 NPI:183 m [place]alate 1-[place] [address] 81 10 mg 00:00: mouth tablet 00 daily. candesartan 2020-06 Yes [id number] 4mg Take 1 NPI:183 4 mg tablet 1-15 tablet by 131 8781 00:00: mouth 00 daily. REPLACES LISINOPRIL . candesartan 2020-062- No [id number] 4mg Take 1 NPI:183 4 mg tablet 1-15 05-05 tablet by 13 37652 00:00: 00:00 mouth 00 :00 daily. REPLACES LISINOPRIL . Insulin Yes [id number] Use as NPI: 183 Carson, 9-20 directed [id number] Disposable, 00:00: twice (PEN 00 daily to NEEDLE) 32 inject gauge x insulin; " Ndle ICD-10 E11.65 blood sugar Yes [id number] USE TWICE NPI:183 diagnostic 9-20 DAILY FOR 1318 781 (ASCENSIA 00:00: BLOOD MICROFILL) 00 GLUCOSE strip MONITORING FOR ICD E11.9 insulin Yes [id number] 20U inject 20 N PI:183 aspart 9-20 Units [id number] protamine-i 00:00: under the nsulin 00 skin 2 aspart (two) (NOVOLOG times MIX 70-30 daily U-100 before INSULN) 100 breakfast unit/mL and (70-30) dinner. injection Insulin Yes [id number] Use as NPI: 183 Carson, 9-20 directed [id number] Disposable, 00:00: twice (PEN 00 daily to NEEDLE) 32 inject gauge x insulin; " Ndle ICD-10 E11.65 blood sugar Yes [id number] USE TWICE NPI:183 diagnostic 9-20 DAILY FOR 1318 781 (ASCENSIA 00:00: BLOOD MICROFILL) 00 GLUCOSE strip MONITORING FOR ICD E11.9 insulin Yes [id number] 20U inject 20 N PI:183 aspart 9-20 Units [id number] protamine-i 00:00: under the nsulin 00 skin 2 aspart (two) (NOVOLOG times MIX 70-30 daily U-100 before INSULN) 100 breakfast unit/mL and (70-30) dinner. injection Insulin Yes [id number] Use as NPI: 183 Carson, 9-20 directed [id number] Disposable, 00:00: twice (PEN 00 daily to NEEDLE) 32 inject gauge x insulin; " Ndle ICD-10 E11.65 blood sugar Yes [id number] USE TWICE NPI:183 diagnostic 9-20 DAILY FOR 1318 781 (ASCENSIA 00:00: BLOOD MICROFILL) 00 GLUCOSE strip MONITORING FOR ICD E11.9 insulin Yes [id number] 20U inject 20 N PI:183 aspart 9-20 Units [id number] protamine-i 00:00: under the nsulin 00 skin 2 aspart (two) (NOVOLOG times MIX 70-30 daily U-100 before INSULN) 100 breakfast unit/mL and (70-30) dinner. injection Insulin Yes [id number] Use as NPI: 183 Carson, 9-20 directed [id number] Disposable, 00:00: twice (PEN 00 daily to NEEDLE) 32 inject gauge x insulin; " Ndle ICD-10 E11.65 blood sugar Yes [id number] USE TWICE NPI:183 diagnostic 9-20 DAILY FOR 1318 781 (ASCENSIA 00:00: BLOOD MICROFILL) 00 GLUCOSE strip MONITORING FOR ICD E11.9 insulin Yes [id number] 20U inject 20 N PI:183 aspart 9-20 Units [id number] protamine-i 00:00: under the nsulin 00 skin 2 aspart (two) (NOVOLOG times MIX 70-30 daily U-100 before INSULN) 100 breakfast unit/mL and (70-30) dinner. injection Insulin Yes [id number] Use as NPI: 183 Carson, 9-20 directed [id number] Disposable, 00:00: twice (PEN 00 daily to NEEDLE) 32 inject gauge x insulin; " Ndle ICD-10 E11.65 blood sugar Yes [id number] USE TWICE NPI:183 diagnostic 9-20 DAILY FOR 1318 781 (ASCENSIA 00:00: BLOOD MICROFILL) 00 GLUCOSE strip MONITORING FOR ICD E11.9 insulin Yes [id number] 20U inject 20 N PI:183 aspart 9-20 Units [id number] protamine-i 00:00: under the nsulin 00 skin 2 aspart (two) (NOVOLOG times MIX 70-30 daily U-100 before INSULN) 100 breakfast unit/mL and (70-30) dinner. injection Immunizations Ordered Immunization Filled Immunization Date Status Commen ts Source Name Name Influenza High Dose 2020-04-19 Completed NPI:1 [id number] Quad 00:00:00 Influenza High Dose 2020-04-19 Completed NPI:1 [id number] Quad 00:00:00 Influenza High Dose 2020-04-19 Completed NPI:1 [id number] Quad 00:00:00 Influenza High Dose 2020-04-19 Completed NPI:1 [id number] Quad 00:00:00 Influenza High Dose 2020-04-19 Completed NPI:1 [id number] Quad 00:00:00 Influenza High Dose 2019-04-11 Completed NPI:1 [id number] 00:00:00 Influenza High Dose 2019-04-11 Completed NPI:1 [id number] 00:00:00 Influenza High Dose 2019-04-11 Completed NPI:1 [id number] 00:00:00 Influenza High Dose 2019-04-11 Completed NPI:1 [id number] 00:00:00 Influenza High Dose 2019-04-11 Completed NPI:1 [id number] 00:00:00 Influenza High Dose 2018-03-01 Completed NPI:1 [id number] 00:00:00 Influenza High Dose 2018-03-01 Completed NPI:1 [id number] 00:00:00 Influenza High Dose 2018-03-01 Completed NPI:1 [id number] 00:00:00 Influenza High Dose 2018-03-01 Completed NPI:1 [id number] 00:00:00 Influenza High Dose 2018-03-01 Completed NPI:1 [id number] 00:00:00 Influenza Virus 2017-03-21 Completed NPI:27942 22034 Vaccine 00:00:00 Influenza Virus 2017-03-21 Completed NPI:52086 12414 Vaccine 00:00:00 Influenza Virus 2017-03-21 Completed NPI:53882 78399 Vaccine 00:00:00 Influenza Virus 2017-03-21 Completed NPI:47717 05871 Vaccine 00:00:00 Influenza Virus 2017-03-21 Completed NPI:73603 67508 Vaccine 00:00:00 TDAP 2015-10-03 Completed 00:00:00 TDAP 2015-10-03 Completed 00:00:00 TDAP 2015-10-03 Completed 00:00:00 TDAP 2015-10-03 Completed 00:00:00 TDAP 2015-10-03 Completed 00:00:00 Pneumococcal 2012-07-26 Completed NPI:[id number] 81 Polysaccharide, 00:00:00 PPSV23 (PNEUMOVAX) Pneumococcal 2012-07-26 Completed NPI:[id number] 81 Polysaccharide, 00:00:00 PPSV23 (PNEUMOVAX) Pneumococcal 2012-07-26 Completed NPI:[id number] 81 Polysaccharide, 00:00:00 PPSV23 (PNEUMOVAX) Pneumococcal 2012-07-26 Completed NPI:[id number] 81 Polysaccharide, 00:00:00 PPSV23 (PNEUMOVAX) Pneumococcal 2012-07-26 Completed NPI:[id number] 81 Polysaccharide, 00:00:00 PPSV23 (PNEUMOVAX) Vital Signs Vital Name Observation Time Observation Value Comments Source Systolic blood pressure 2021-10-23 22:56:00 136 mm[Hg] Diastolic blood 2021-10-23 22:56:00 75 mm[Hg] NPI:1 [id number] pressure Heart rate 2021-10-23 22:51:00 64 /min NPI:1831 564441 Body temperature 2021-10-23 22:51:00 37.06 Felicia Respiratory rate 2021-10-23 22:51:00 16 /min Body height 2021-10-23 22:51:00 177.8 cm NPI:1831 470039 Body weight 2021-10-23 22:51:00 83.915 kg NPI:1831 [id number] BMI 2021-10-23 22:51:00 26.54 kg/m2 NPI:1831 332889 Oxygen saturation in 2021-10-23 22:51:00 98 /min Arterial blood by Pulse oximetry Systolic blood pressure 2021-10-09 18:06:00 139 mm[Hg] Diastolic blood 2021-10-09 18:06:00 77 mm[Hg] NPI:1 [id number] pressure Heart rate 2021-10-09 18:06:00 72 /min NPI:1831 [id number] Body height 2021-10-09 18:06:00 177.8 cm NPI:1831 625125 Body weight 2021-10-09 18:06:00 85.866 kg NPI:1831 430241 BMI 2021-10-09 18:06:00 27.16 kg/m2 NPI:1831 148652 Oxygen saturation in 2021-10-09 18:06:00 97 /min Arterial blood by Pulse oximetry Procedures Procedure Date / Time Performed Performing Clinician Sourc e POCT URINALYSIS 2021-10-23 23:01:00 Luz Maria Berry NPI:[id number] AUTHORIZATION FOR RELEASE 2021-10-07 05:01:00 Doctor Unassigned, No OF PHI Name Encounters Start End Encounter Admission Attending Care Care Encounter Source Date/Time Date/Time Type Type Clinicians Facility Department ID 2021-12-24 2021-12-24 Outpatient Serjio [facility] [id number] NPI:183 13:00:00 13:00:00 SENDIL [id number] 2021-11-07 2021-11-07 Outpatient R JADE BLOUNT [facility] [id number] NPI:183 13:00:00 13:00:00 JADE [facility]OUNT [id number] 2021-10-23 [id number] NPI:183 18:00:00 18:18:59 Care [facility] 350.1.13.10 [id number] [place] 4.2.7.2.686 ADONAY?BLEA [id number] [facility]NT[facility] 2021-10-23 2021-10-23 Outpatient R [facility] [id number] NPI:183 18:00:00 18:00:00 [id number] 2021-10-23 2021-10-23 Outpatient R RODRIGOAmari [facility] [id number] NPI:183 18:00:00 18:00:00 RANIA [id number] 1 2021-10-23 2021-10-23 [facility] [id number] NPI:183 00:00:00 [facility] 350.1.13.10 [id number] [place] 4.2.7.2.686 ADONAY?BLEA [id number] [place] 044 MED[facility] OFFICE [facility]ING 2021-10-09 2021-10-09 [facility] 1.2.840.114 [id number] NPI:183 13:00:00 13:42:33 Visit Dayana SOTO 350.1.13.10 [id number] Dorothy [facility] 4.2.7.2.686 [place] [id number] [facility] 2021-10-09 2021-10-09 Outpatient R DAYANA MARIANO [facility] [id number] NPI:183 13:00:00 13:42:33 DAYANA MARIANO [id number] 2021-10-07 Outpatient R MIKE [facility] [id number] NPI:183 16:30:00 17:14:26 EVELIN [id number] 1 2021-10-07 2021-10-07 Orders Doctor LIBORIO [id number] NPI:183 00:00:00 00:00:00 Only Unassigned, SONIDO 350.1.13.10 [id number] [facility] 4.2.7.2.686 [id number] 2020-08-20 2020-08-20 Telephone [facility] 1.2.840.114 [id number] 00:00:00 00:00:00 [facility] 350.1.13.10 [place] 4.2.7.2.686 Professio [id number] nal [facility] Office [address] [facility] 2020-07-23 2020-07-23 [facility] 1.2.840.114 [id number] 00:00:00 00:00:00 [facility] 350.1.13.10 [place] 4.2.7.2.686 Professio [id number] nal 044 [address] 2020-07-19 2020-07-19 [facility] 1.2.840.114 [id number] 08:01:11 10:21:48 Visit [facility] 350.1.13.10 [place] [employer] [place] 4.2.7.2.686 Professio [id number] nal [facility] Office Building One Results Test Description Test Time Test Comments Results Result Comments Source POCT URINALYSIS W SPECIFIC GRAVITY 2021-10-23 23:02:00 Test Item Value Reference Range Interpretation Comme nts POCT U SP GRAV (test code = 1.020 mg/dl 1.005-1.025 3255) POCT PH U (test code = 3254) 5 mg/dl 5-8 POCT U LEUK EST (test code = neg Negative - Negative 3263) POCT U NIT (test code = 3262) neg Negative - Negative POCT U PROT (test code = 3259) neg Negative - Negative POCT U GLU (test code = 3256) norm Negative - Negative POCT U KETONE (test code = neg Negative - Negative 3258) POCT U UROBILI (test code = norm 0.2-1 3260) POCT U BILI (test code = 3261) neg Negative - Negative POCT U BLD (test code = 3257) trace Negative - Negative POCT U COLOR (test code = 3266) yellow POCT U APPEAR (test code = clear 3267) MARIO (test code = MARIO) accurate development and interpretation of all internal controls Lab Interpretation (test code = Normal 71453-8)
[2021-10-24] MEDS ORDERED: ONDANSETRON 4 MG/2 ML VIAL ONE (15:20)
[2021-10-24] MEDS ORDERED: FAMOTIDINE 20 MG/2 ML VIAL IV ONE (15:21)
[2021-10-24 15:24] LABS: Absolute Lymphocytes (CBC) 1.7 K/uL (0.7-4.9); Hematocrit 39.2 % (39.6-49.0); Lymphocytes % 20.8 % (15.3-44.8); MPV 8.5 fL (7.6-11.3); RBC Red Blood Cell Count 4.37 M/uL (4.33-5.43)
[2021-10-24 15:28] LABS: Urine Blood Negative (Negative); Urine Glucose Negative (Negative); Urine Protein Negative (Negative)
[2021-10-24 15:39] LABS: Albumin 3.3 g/dL (3.4-5.0)
[2021-10-24 15:40] LABS: Urine Bacteria <20 /HPF (NONE SEEN); Urine Mucus 1+ /HPF (NONE SEEN); Urine RBC <5 /HPF (NONE SEEN)
[2021-10-24 15:50] LABS: Bilirubin Total 0.2 mg/dL (0.2-1.0); Protein, Total 6.6 g/dL (6.4-8.2)
[2021-10-24] MEDS ORDERED: MORPHINE 4 MG/ML SYR ONE (16:39)
[2021-10-24] MEDS ORDERED: NA CHLORIDE 0.9% 1,000 ML ONE (16:39)
--- NOTE | 2021-10-24 17:23 | RAD REPORT ---
EXAM DESCRIPTION: CT - Abdomen Pelvis W Contrast - 10/24/2021 5:09 pm CLINICAL HISTORY: Abdominal pain COMPARISON: 2020 TECHNIQUE: Computed axial tomography of the abdomen pelvis was obtained. 100 cc Isovue-300 was admin istered intravenously. Oral contrast was not requested which limits evaluation of bowel. All CT scans are performed using dose optimization technique as appropriate and may include automated exposure control or mA/KV adjustment according to patient size. FINDINGS: Cholecystectomy. Liver, spleen, pancreas, adrenals and left kidney are unremarkable The right kidney lies within pelvis. Prostate gland is moderately enlarged. There is no evidence of diverticulitis/colitis. Normal appendix IMPRESSION: No acute abnormality is displayed.
--- NOTE | 2021-10-24 17:59 | EDPHYS ---
Physician Documentation [facility] Name: Dave Moreland Age: 81 yrs Sex: Male : 1940 Arrival Date: 10/24/2021 Time: 14:23 Bed 19 Private MD: ED Physician Haroldo Gerardo HPI: 10/24 15:05 This 81 yrs old Male presents to ER via Ambulatory with complaints of Rectal Pain. cp 15:05 The patient presents to the emergency department with pain in the rectal area, that is cp moderate. Onset: The symptoms/episode began/occurred 4 day(s) ago. Associate signs and symptoms: Pertinent positives: abdominal pain in the abdomen diffusely, abdominal distension, Pertinent negatives: constipation, diarrhea, dysuria, fever, lower GI bleeding. Historical: - Allergies: 14:28 Codeine; iw - PMHx: 14:28 Diabetes - NIDDM; GERD; Myocardial infarction; prostate problems; Hypertension; iw Hyperlipidemia; - Immunization history:: Client reports having NOT received the Covid vaccine. - Social history:: Smoking status: Patient denies any tobacco usage or history of. ROS: 15:10 Constitutional: Negative for body aches, chills, fever, poor PO intake. cp 15:10 Eyes: Negative for injury, pain, redness, and discharge. cp 15:10 ENT: Negative for drainage from ear(s), ear pain, sore throat, difficulty swallowing, cp difficulty handling secretions. 15:10 Cardiovascular: Negative for chest pain, edema, palpitations. 15:10 Respiratory: Negative for cough, shortness of breath, wheezing. 15:10 Abdomen/GI: Positive for abdominal pain, abdominal distension, rectal pain, Negative for vomiting, diarrhea, constipation, anorexia. 15:10 Back: Negative for pain at rest, pain with movement. 15:10 Neuro: Negative for altered mental status, dizziness, headache. 15:10 All other systems are negative. cp Exam: 15:20 Constitutional: The patient appears in no acute distress, alert, awake, cp non-diaphoretic, non-toxic, well developed, well nourished. 15:20 Head/Face: Normocephalic, atraumatic. cp 15:20 Eyes: Periorbital structures: appear normal, Conjunctiva: normal, no exudate, no injection, Sclera: no appreciated abnormality, Lids and lashes: appear normal, bilaterally. 15:20 ENT: External ear(s): are unremarkable, Nose: is normal, Mouth: Lips: moist, Oral mucosa: moist, Posterior pharynx: Airway: no evidence of obstruction, patent. 15:20 Chest/axilla: Inspection: normal, Palpation: is normal, no crepitus, no tenderness. 15:20 Cardiovascular: Rate: normal, Rhythm: regular. 15:20 Respiratory: the patient does not display signs of respiratory distress, Respirations: normal, no use of accessory muscles, no retractions, labored breathing, is not present, Breath sounds: are clear throughout, no decreased breath sounds, no stridor, no wheezing. 15:20 Abdomen/GI: Inspection: distension, that is mild, in the abdomen diffusely, Bowel sounds: active, all quadrants, Palpation: soft, in all quadrants, mild abdominal tenderness, in all quadrants, rebound tenderness, is not appreciated, voluntary guarding, is not appreciated, involuntary guarding, is not appreciated, Rectal exam: hemorrhoid(s), are not appreciated, small fissure noted. 15:20 Back: CVA tenderness, is absent. 15:20 Neuro: Orientation: to person, place \T\ time. Mentation: is normal, Motor: moves all fours, strength is normal, Sensation: is normal. Vital Signs: 14:26 BP 137 / 65; Pulse 70; Resp 16; Temp 98.0; Pulse Ox 99% on R/A; Weight 83.91 kg; Height iw 5 ft. 10 in. (177.80 cm); Pain 10/10; 18:10 BP 129 / 73; Pulse 68; Resp 17; Pulse Ox 99% on R/A; galindo 14:26 Body Mass Index 26.54 (83.91 kg, 177.80 cm) iw MDM: 14:58 Patient medically screened. cp 16:00 Differential diagnosis: hemorrhoids, fissure, abscess, pilonidal cyst, bowel cp obstruction. 17:58 Data reviewed: vital signs, nurses notes, lab test result(s), radiologic studies, CT cp scan. 17:58 Counseling: I had a detailed discussion with the patient and/or guardian regarding: the cp historical points, exam findings, and any diagnostic results supporting the discharge/admit diagnosis, lab results, radiology results, to return to the emergency department if symptoms worsen or persist or if there are any questions or concerns that arise at home. Response to treatment: the patient's symptoms have mildly improved after treatment, and as a result, I will discharge patient. 10/24 14:59 Order name: CBC with Diff; Complete Time: 15:54 10/24 15:54 Interpretation: Normal except: HGB 13.3; HCT 39.2; RDW 15.3. 10/24 14:59 Order name: CMP; Complete Time: 15:54 10/24 16:18 Interpretation: Normal except: GLUC 214; BUN 20; ALB 3.3; GFR 62; AST 14; A/G 1.0. 10/24 14:59 Order name: Lipase; Complete Time: 15:54 10/24 14:59 Order name: Urine Microscopic Only; Complete Time: 15:54 10/24 14:59 Order name: CT Abd/Pelvis - IV Contrast Only; Complete Time: 17:47 10/24 17:57 Interpretation: Report reviewed. 10/24 15:29 Order name: Urine Dipstick-Ancillary; Complete Time: 15:54 EDMS 10/24 14:59 Order name: IV Saline Lock; Complete Time: 15:12 10/24 14:59 Order name: Labs collected and sent; Complete Time: 15:12 10/24 14:59 Order name: Urine Dipstick-Ancillary (obtain specimen); Complete Time: 15:28 cp Administered Medications: 15:25 Drug: Zofran (Ondansetron) 4 mg Route: IVP; Site: right forearm; ww 15:29 Drug: Pepcid (famotidine) 20 mg Route: IVP; Site: right forearm; ww 16:48 Drug: morphine 4 mg Route: IVP; Site: right antecubital; ww 16:48 Drug: NS 0.9% 500 ml Route: IV; Rate: 125 ml/hr; Site: right antecubital; ww Disposition Summary: 10/24/21 17:58 Discharge Ordered Location: Home cp Problem: new cp Symptoms: have improved cp Condition: Stable cp Diagnosis - Anal fissure, unspecified cp Followup: cp - With: Gentry Sharma MD - When: 2 - 3 days - Reason: Worsening of condition Discharge Instructions: - Discharge Summary Sheet cp - Abdominal Pain, Adult cp - Anal Fissure, Adult cp Forms: - Medication Reconciliation Form cp - Thank You Letter cp - Antibiotic Education cp - Prescription Opioid Use cp Prescriptions: - Anusol-HC 25 mg Rectal Suppository - insert 1 suppository by RECTAL route every 12 hours As needed; 20 suppository; cp Refills: 0, Product Selection Permitted - dicyclomine 20 mg Oral Tablet - take 1 tablet by ORAL route 4 times per day; 30 tablet; Refills: 0, Product cp Selection Permitted Signatures: Dispatcher [employer] Nallely Terry RN RN Jalil Mcknight PA PA Fadumo Ames RN RN ww
--- NOTE | 2021-10-24 17:59 | ER ---
Nurse's Notes [facility] Name: Dave Moreland Age: 81 yrs Sex: Male : 1940 Arrival Date: 10/24/2021 Time: 14:23 Bed 19 Private MD: Diagnosis: Anal fissure, unspecified Presentation: 10/24 14:26 Chief complaint: Patient states: is having rectal pain X 3-4 days, was constipated and iw strained, is unsure if there are hemorrhoids , was seen at urgent care last night and was told to come to ER for eval , pt denies rectal bleeding. Coronavirus screen: At this time, the client does not indicate any symptoms associated with coronavirus-19. Ebola Screen: Patient negative for fever greater than or equal to 101.5 degrees Fahrenheit, and additional compatible Ebola Virus Disease symptoms Patient denies exposure to infectious person. Patient denies travel to an Ebola-affected area in the 21 days before illness onset. No symptoms or risks identified at this time. Initial Sepsis Screen: Does the patient meet any 2 criteria? No. Patient's initial sepsis screen is negative. Does the patient have a suspected source of infection? No. Patient's initial sepsis screen is negative. Risk Assessment: Do you want to hurt yourself or someone else? Patient reports no desire to harm self or others. Onset of symptoms was October 21, 2021. 14:26 Method Of Arrival: Ambulatory iw 14:26 Acuity: CLARK 3 iw Historical: - Allergies: 14:28 Codeine; iw - PMHx: 14:28 Diabetes - NIDDM; GERD; Myocardial infarction; prostate problems; Hypertension; iw Hyperlipidemia; - Immunization history:: Client reports having NOT received the Covid vaccine. - Social history:: Smoking status: Patient denies any tobacco usage or history of. Screenin:23 Abuse screen: Denies threats or abuse. Denies injuries from another. Nutritional ww screening: No deficits noted. Tuberculosis screening: No symptoms or risk factors identified. Fall Risk None identified. Assessment: 15:30 General: Appears uncomfortable, Behavior is calm, cooperative. Pain: Complains of pain ww in buttocks and abdomen. Neuro: Level of Consciousness is awake, alert, obeys commands, Oriented to person, place, time, situation, Moves all extremities. Speech is normal. Respiratory: Airway is patent Respiratory effort is even, unlabored, Respiratory pattern is regular, symmetrical. GI: Abdomen is distended, Reports cramping, rectal pain. 16:14 Reassessment: Patient appears in no apparent distress at this time. Patient and/or ww family updated on plan of care and expected duration. Pain level reassessed. Patient is alert, oriented x 3, equal unlabored respirations, skin warm/dry/pink. 17:23 Reassessment: Patient appears in no apparent distress at this time. No changes from ww previously documented assessment. Patient and/or family updated on plan of care and expected duration. Pain level reassessed. Patient is alert, oriented x 3, equal unlabored respirations, skin warm/dry/pink. Patient states feeling better. Vital Signs: 14:26 BP 137 / 65; Pulse 70; Resp 16; Temp 98.0; Pulse Ox 99% on R/A; Weight 83.91 kg; Height iw 5 ft. 10 in. (177.80 cm); Pain 10/10; 18:10 BP 129 / 73; Pulse 68; Resp 17; Pulse Ox 99% on R/A; galindo 14:26 Body Mass Index 26.54 (83.91 kg, 177.80 cm) iw ED Course: 14:23 Patient arrived in ED. rg4 14:28 Triage completed. iw 14:29 Arm band placed on. iw 14:34 Jalil Bradford PA is PHCP. cp 14:34 Haroldo Gerardo MD is Attending Physician. cp 15:00 Fadumo Dempsey, RN is Primary Nurse. ww 17:11 CT Abd/Pelvis - IV Contrast Only In Process Unspecified. EDMS 17:23 Patient has correct armband on for positive identification. Placed in gown. Bed in low ww position. Call light in reach. Side rails up X2. Adult w/ patient. 17:23 Inserted saline lock: 20 gauge in right antecubital area, using aseptic technique. ww 17:57 Gentry Sharma MD is Referral Physician. cp 18:10 No provider procedures requiring assistance completed. IV discontinued, intact, galindo Pressure dressing applied. Administered Medications: 15:25 Drug: Zofran (Ondansetron) 4 mg Route: IVP; Site: right forearm; ww 15:29 Drug: Pepcid (famotidine) 20 mg Route: IVP; Site: right forearm; ww 16:48 Drug: morphine 4 mg Route: IVP; Site: right antecubital; 16:48 Drug: NS 0.9% 500 ml Route: IV; Rate: 125 ml/hr; Site: right antecubital; Outcome: 17:58 Discharge ordered by . sharee 18:10 Discharged to home with family. galindo 18:10 Condition: good 18:10 Discharge instructions given to patient, family, Prescriptions given X 2. 18:11 Patient left the ED. galindo Signatures: Dispatcher [employer] Nallely Terry RN RN Jalil Mcknight PA PA cp Garcia, Rubi rg4 Fadumo Dempsey RN RN ww Au-Dana Goodwin RN RN galindo
[2021-10-24 20:02] VITALS: TEMP 98; O2SAT 99
[2021-10-24 20:03] VITALS: BP 129/73
== END 2021-10-24 18:11 | disposition home or self-care (01) ==
LOC: ER 14:21
DX: K60.2 Anal fissure, unspecified (principal); R10.9 Unspecified abdominal pain; E11.9 Type 2 diabetes mellitus without complications; I10 Essential (primary) hypertension; I25.2 Old myocardial infarction; Z88.5 Allergy status to narcotic agent
CPT/HCPCS: 85025; 36415; 83690; 80053; 74177; 99284; Q9967; J7030; J2405; J3490; 81003; 81015

== ENCOUNTER 2022-07-27 20:46 | Emergency (ER) | payer OTHER ==
--- OUTSIDE RECORDS SUMMARY | 2022-07-27 20:54 | XMS REPORT | Continuity of Care Document ---
:1940 Author Organization [facility] t Address [address] [place] [address] Care Team Providers Name Role Phone EVELIN COLMENARES Primary Care Physician Unavailable MELITA, SENDIL K.H. Attending Clinician Unavailable MARY NARAYAN Attending Clinician Unavailable GABRIELA MACK Attending Clinician Unavailable EVELIN COLMENARES Attending Clinician Unavailable JAVIER MORRIS Attending Clinician Unavailable Javier Valentine Attending Clinician Evelin Wyatt Attending Clinician Melita FOX Sendteodoro K.H. Attending Clinician Kenn Christine MD Attending Clinician Doctor Unassigned, [place] Attending Clinician Unavailable Pob, [facility] Main Attending Clinician Unavailable FADUMO MCNAMARA Attending Clinician Unavailable Fadumo Mcnamara MD Attending Clinician HALEY CAMEJO Attending Clinician Unavailable Haley Camejo MD Attending Clinician Unknown, Attending Attending Clinician Unavailable Gt FOX, Nehal Addison Attending Clinician FRANKLYN BAÑUELOS Attending Clinician Unavailable Franklyn Bañuelos MD Attending Clinician , [facility] Surg Spec Procedure Attending Clinician Unavailable Nurse, [facility] Surgery Gu Attending Clinician Unavailable Keon Scherer MD Attending Clinician Lab, [facility] Attending Clinician Unavailable Elinor Jimenez MD Attending Clinician ELINOR JIMENEZ Attending Clinician Unavailable ELINOR JIMENEZ Attending Clinician Unavailable GEE BLOUNT Attending Clinician Unavailable GEE BLOUNT Attending Clinician Unavailable Gee Blount MD Attending Clinician Ebrahim OFFSET DUPLICATING MACHINE OPERATOR, Luz Maria Attending Clinician EBLUZ MARIA MORALES Attending Clinician Unavailable Raul OFFSET DUPLICATING MACHINE OPERATOR, Tamera Attending Clinician RADIOLOGY Attending Clinician Unavailable TAMERA ACEVEDO Attending Clinician Unavailable Km Newton RN Attending Clinician Unavailable PONCHO NOBLES Attending Clinician Unavailable PONCHO NOBLES Attending Clinician Unavailable Jorge Timmons Attending Clinician NESTOR SALDAÑA III Attending Clinician Unavailable NEHAL DEL REAL Attending Clinician Unavailable GISSELLE DURHAM Attending Clinician Unavailable Karlie Jim MD Attending Clinician FLORENTIN THAPA Attending Clinician Unavailable Florentin Bo Attending Clinician Nurse, [facility] Attending Clinician Unavailable Shyanne Bland MD Attending Clinician SHYANNE BLAND Attending Clinician Unavailable SHYANNE BLAND Attending Clinician Unavailable [facility] Attending Clinician Unavailable [place], [facility] Test Attending Clinician Unavailable ACE BROWN Attending Clinician Unavailable Ace Hansen Attending Clinician KARLIE JIM Attending Clinician Unavailable CHUCKIE SHEHEAN Attending Clinician Unavailable ANYI DE SANTIAGO Attending Clinician Unavailable JEROME AHUMADA Attending Clinician Unavailable HEATHER HENRY Attending Clinician Unavailable CINDY MTZ Attending Clinician Unavailable ZARA YBARRA Attending Clinician Unavailable ORIN MCNAMARA Attending Clinician Unavailable KAMRAN HUA Admitting Clinician Unavailable MARY NARAYAN Admitting Clinician Unavailable Melita FOX, Sendteodoro K.H. Admitting Clinician PONCHO NOBLESESHAN Admitting Clinician Unavailable FLORENTIN THAPA Admitting Clinician Unavailable ELINOR JIMENEZ Admitting Clinician Unavailable NEHAL DEL REAL Admitting Clinician Unavailable Payers Payer Name Policy Type Policy Number Effective Date Expiration Date Saloni gill MEDICARE PART A [id number] 2004 \\T\\ B 00:00:00 [employer] [id number] 2016 00:00:00 Problems Condition Condition Condition Status Onset Resolution Last Treating Co mments Source Name Details Category Date Date Treatment Clinician Date Dyslipidem Dyslipidem Disease Active Overview : Univers ia ia - Formattin ity of 00:00: g of this [place] 00 note Medical might be Branch different from the original. Added automatic ally from request for surgery [id number] RAZO RAZO Disease Active Overview: Univer s (dyspnea (dyspnea 11-18 Formattin ity of on on 00:00: g of this [place] exertion) exertion) 00 note Medi monika might be Branch different from the original. Added automatic ally from request for surgery [id number] Atypical Atypical Disease Active Overview: Un nyla chest pain chest pain 11-18 Formattin ity of 00:00: g of this [place] 00 note Medical might be Branch different from the original. Added automatic ally from request for surgery [id number] Anginal Anginal Disease Active Overview: Univ ers equivalent equivalent 11-18 Formattin ity of 00:00: g of this [place] 00 note Medical might be Branch different from the original. Added automatic ally from request for surgery [id number] Acute Acute Disease Active Univers cardioembo cardioembo 3-11 it y of lic stroke lic [place] 00 [place] PRITESH PRITESH Disease Active 2020-06 Univers (obstructi (obstructi 2-13 it y of ve sleep ve sleep 00:00: [place] apnea) apnea) 00 Medical Branch Iron Iron Disease Active 2020-06 Univers deficiency deficiency 1-22 it y of 00:00: [place] 00 Medical Branch Osteoarthr Osteoarthr Disease Active 2020-06 U nivers itis of itis of 1-16 ity of left left 00:00: [place] shoulder shoulder 00 Medica l Branch Inguinal Inguinal Disease Active Unive rs hernia hernia -24 ity of 00:00: Medical Branch Non-recurr Non-recurr Disease Active Overview : Univers ent ent 524 Formattin ity of bilateral bilateral 00:00: [place] of [place] inguinal inguinal 00 note Medica l hernia hernia might be Branch without without different obstructio obstructio from the n or n or original. gangrene gangrene Added automatic ally from request for surgery [id number] Acute Acute Disease Active [facility] pancreatit pancreatit 3- it y of is is 00:00: Medical Branch COVID-19 COVID-19 Disease Active Unive rs 2- ity of 00:00: Medical Branch Greater Greater Disease Active Overview: Univ ers trochanter trochanter 11-27 Formattin ity of ic ic 00:00: g of this [place] bursitis bursitis 00 note Medica l of left of left might be Branch hip hip different from the original. Added automatic ally from request for surgery [id number] SI SI Disease Active Overview: Univer s (sacroilia (sacroilia 11-27 Formattin ity of c) joint c) joint 00:00: g of this Luis Ramando as dysfunctio dysfunctio 00 note Me dical n n might be Branch different from the original. Added automatic ally from request for surgery [id number] Onychomyco Onychomyco Disease Active 2018-06 U nivers sis of sis of 2-15 ity of toenail toenail 00:00: [place] Medical [facility] Lumbar Lumbar Disease Active [facility] spondylosi spondylosi 7- it y of s s 00:00: [place] [facility] Degenerati Degenerati Disease Active U nivers on of on of 6 ity of lumbar lumbar 00:00: [place] interverte interverte 00 Me dical bral disc bral disc Bran ch Lumbar Lumbar Disease Active [facility] radiculopa radiculopa 6- it y of thy thy 00:00: [place] [facility] Myofascial Myofascial Disease Active U nivers pain pain 6-03 ity of 00:00: [place] 00 Medical Branch Elevated Elevated Disease Active Unive rs sed rate sed rate 4-17 ity of 00:00: [place] 00 Medical Branch Low Low Disease Active Univers ferritin ferritin 3-27 ity of 00:00: [place] 00 Medical Branch Type 2 Type 2 Disease Active Univers diabetes diabetes 1-17 ity of mellitus mellitus 00:00: [place] with with 00 Medical complicati complicati Br anch on, on, without without long-term long-term current current use of use of insulin insulin Bradycardi Bradycardi Disease Active 2017-06 U nivers a a 2-26 ity of 00:00: [place] 00 Medical Branch Weakness Weakness Disease Active 2017-06 Unive rs 2-26 ity of 00:00: [place] [facility] Dizziness Dizziness Disease Active 2017-06 Uni vers 2-26 ity of 00:00: [place] 00 Medical Branch Coronary Coronary Disease Active 2017-06 Unive rs artery artery 2-26 ity of disease disease 00:00: [place] involving involving 00 Medi monika [place] coronary coronary artery of artery of [place] heart heart without without angina angina pectoris pectoris Essential Essential Disease Active 2017-06 Uni vers hypertensi hypertensi 2-26 it y of on on 00:00: [place] 00 Medical Branch PAF PAF Disease Active 2017-06 Univers (paroxysma (paroxysma 2-26 it y of l atrial l atrial 00:00: [place] fibrillati fibrillati 00 Me dical on) on) Branch Gastritis Gastritis Disease Active Uni vers 5-25 ity of 00:00: [place] [facility] Chronic Chronic Disease Active Univers fatigue fatigue 4-27 ity of 00:00: [place] 00 Medical Branch Colon Colon Disease Active Univers polyps polyps 1-05 ity of 00:00: [place] 00 Medical Branch Fatty Fatty Disease Active Univers liver liver 1-05 ity of 00:00: [place] 00 Medical Branch Migraines Migraines Disease Active Uni vers 1-05 ity of 00:00: [place] 00 Medical Branch Vitiligo Vitiligo Disease Active Unive rs 1-05 ity of 00:00: [place] 00 Medical Branch Low Low Disease Active Univers testostero testostero 1-05 it y of ne ne 00:00: [place] 00 Medical Branch Statin Statin Disease Active Univers intoleranc intoleranc 2-17 it y of e e 00:00: Medical Branch Diabetic Diabetic Disease Active Overview: Un nyla polyneurop polyneurop 3- Formattin ity of athbonnie athy 00:00: g of this [place] associated associated 00 note is M edical with type with type different B ranch 2 diabetes 2 diabetes from the mellitus mellitus original. Overview: Converted from Centricit y:Descrip tion - PERIPHERA L NEUROPATH YLast Assessmen t & Plan: Formattin g of this note might be different from the original. ASSESSMEN T:The patient's diabetes is improvedD iagnostic s Reviewed: Lab Results Component Value Date/Time HEMOGLOBI N A1C 6.1 (H) 8 0946 CHOLESTER OL 155 7 1017 LDL CHOLESTER OL CALCULATE D 68 7 1017 HDL CHOLESTER OL 33 (L) 7 1017 History Smoking Status Never Smoker Smokeless Tobacco Never Used [employer] [facility] Status Date Diabetic Eye Exam Overdue [...] Anxiety Anxiety Disease Active Univers ity of [facility] Allergies, Adverse Reactions, Alerts Allergy Allergy Status Severity Reaction(s) Onset Inactive Treating Comm ents Source Name Type Date Date Clinician Ibuprofe Propensi Active Nausea Patient Unive rs n ty to and/or 06-28 notes hx ity of adverse Vomiting 00:00: of [place] reaction 00 stentsAbd Medic al s ominal Branch discomfor t when taking ibuprofen IBUPROFE DRUG Active N/V 2021- Univers N INGREDI 1-08 ity of 00:00: [place] 00 Medical Branch Glimepir Propensi Active Anxiety 2020- Unive rs lucia ty to 2-09 ity of adverse 00:00: [place] reaction 00 Medical s Branch GLIMEPIR DRUG Active Anxiety 2020- Univers LUCIA INGREDI 2-09 ity of 00:00: [place] 00 Medical Branch Statins- Propensi Active Other - See Severe U nivers Hmg-Coa ty to comments 2-17 myalgia ity of [place] adverse 00:00: [place] e reaction 00 Medical Inhibito s Branch rs STATINS- Drug Active Other-Cmnt Univ ers HMG-COA Class 2-17 ity of REDUCTAS 00:00: [place] E 00 Medical INHIBITO Branch RS Statins- Propensi Active Other - See Severe U nivers Hmg-Coa ty to comments 2-17 myalgia ity of [place] adverse 00:00: [place] e reaction 00 Medical Inhibito s Branch rs Codeine Propensi Active Rash 2017- Univers ty to 2- ity of adverse 00:00: [place] reaction 00 Medical s Branch CODEINE DRUG Active Rash 2017- Univers INGREDI 2- ity of 00:00: [place] 00 Medical Branch Canaglif Propensi Active Other - See Genital Univers lozin ty to comments 7- mycotic ity of adverse 00:00: infection [place] reaction 00 s Medical s Branch CANAGLIF DRUG Active Other-Cmnt Univ ers LOZIN INGREDI 7 ity of 00:00: [place] 00 Medical Branch Social History Social Habit Start Date Stop Date Quantity Comments Source Exposure to 2022-07-17 2022-07-27 [facility] SARS-CoV-2 00:00:00 09:27:00 [place] Medical (event) Branch Alcohol intake 2022-06-01 2022-06-01 Current University of 00:00:00 00:00:00 non-drinker of [facility] alcohol (finding) Branch Tobacco use and 2021-12-30 2021-12-30 Smokeless tobacco Un iversity of exposure 00:00:00 00:00:00 non-user [facility] Sex Ass[birth year] At [birth year] Universit y of 00:00:00 00:00:00 [facility] Smoking Status Start Date Stop Date Source Never smoked tobacco [facility] Medications Ordered Filled Start Stop Current Ordering Indication Dosage Frequency Signature Comments Components Source Medication Medication Date Date Medication? Clinician (SIG) Name Name NaCl 0.9% 2022- No 1000mL at 999 Uni vers (NS) bolus 2-06 02-06 mL/hr, ity of infusion 17:15: 18:09 1,000 mL, Luis Armando as 1,000 mL 00 :00 IV Medical Infusion, Branch ONCE, 1 dose, On Wed07/27/22 at 1115, STAT ondansetron 2022- No 4mg 4 mg, Slow Univers (ZOFRAN 07-27- IV Push, ity of (PF)) 16:15: 16:13 ONCE, 1 [place] injection 4 00 :00 dose, On Medi monika mg Wed07/27/22 Branch at 1015, PADMA ondansetron 2022- No 4mg 4 mg, Slow Univers (ZOFRAN 07-27- IV Push, ity of (PF)) 15:30: 15:32 ONCE, 1 [place] injection 4 00 :00 dose, On Medi monika mg Wed07/27/22 Branch at 0930, PADMA nirmatrelvi Yes [id number] 3{tbl} Take 3 Univers r-ritonavir 2-06 tablets by it y of (PAXLOVID, 00:00: mouth in [place] Armando as EUA,) 300 00 the Medical mg (150 mg morning Branch x 2)-100 mg and 3 tablet tablets in the evening. ondansetron Yes [id number] 4mg Take 1 Univers 4 mg 2-06 tablet by ity of disintegrat 00:00: mouth [place] ing tablet 00 every 8 Medica l (eight) Branch hours as needed for Nausea and Vomiting (N/V). D10W 10 % 2021- Yes at 20-40 Univ ers IV infusion 2-29 mL/hr, IV ity of 16:28: Infusion, [place] 11 TITRATE, Medical Starting Branch on Sheila 06/18/22 at 1028, Until Discontinu ed, Routine, CV Preprocedu re D10W 10 % 2021-06- No at 20-40 Uni vers IV infusion 06-18 mL/hr, IV it y of 16:28: 20:34 Infusion, [place] 11 :21 TITRATE, Medical Starting Branch on [facility] 06/18/22 at 1028, Until [facility] 06/18/22 at 1434, Routine, CV Preprocedu re iopamidol 2021-06- No ONCE INTRA U nivers (ISOVUE 06-18 PROCEDURE, ity o f 370-500 mL) 15:56: 16:17 [place] injection 00 :44 on [facility] 06/18/22 Branch at 0956, Until [facility] 06/18/22 at 1017, Routine, CV Intraproce dure nitroglycer 2021-06- No ONCE INTRA Univers in (TRIDIL) 06-18 PROCEDURE, i ty of 2 mg in 10 15:41: 16:17 [place] mL D5W for 29 :44 on [facility] Cardiac 06/18/22 Branch Cath at 0941, Until [facility] 06/18/22 at 1017, Routine, CV Intraproce dure heparin 2021-06- No ONCE INTRA Uni vers 1,000 06-18 PROCEDURE, ity of unit/mL 15:41: 16:17 Starting [place] injection 09 :44 on [facility] 06/18/22 Branch at 0941, Until [facility] 06/18/22 at 1017, Routine, CV Intraproce dure lidocaine 2021-06- No ONCE INTRA U nivers 1% (PF) 06-18 PROCEDURE, ity o f (XYLOCAINE) 15:34: 16:17 Starting [place] injection 00 :44 on [facility] 06/18/22 Branch at 0934, Until [facility] 06/18/22 at 1017, Routine, CV Intraproce dure midazolam 2021-06- No ONCE INTRA U nivers (VERSED) 06-18 PROCEDURE, ity of injection 15:22: 16:17 Starting Luis Armando as 00 :44 on [facility] 06/18/22 Branch at 0922, Until [facility] 06/18/22 at 1017, Routine, CV Intraproce dure FENTanyl PF 2021-06- No ONCE INTRA Univers (SUBLIMAZE 06-18 PROCEDURE, it y of (PF)) 15:22: 16:17 Starting [place] injection 00 :44 on [facility] Medical 06/18/22 Branch at 0922, Until [place] 06/18/22 at 1017, Routine, CV Intraproce dure aspirin 2021-06 Yes [id number] 325mg 325 mg, U nivers tablet 325 Oral, ity of mg 15:00: DAILY, [place] 00 First dose Medical on [facility] Branch 06/18/22 at 0900, Until Discontinu ed, Routine aspirin 2021-06- No [id number] 325mg 325 mg, Univers tablet 325 06-18 Oral, ity of mg 15:00: 20:34 DAILY, [place] 00 :21 First dose Medical on [facility] Branch 06/18/22 at 0900, Until Discontinu ed, Routine aspirin 2021-06 Yes 81mg Take 81 mg Univ ers (ADULT LOW 2-29 by mouth ity o f DOSE 12:29: daily. [place] ASPIRIN) 81 19 Medical mg EC Branch tablet CBD-KINGS 2021-06 Yes Apply to Univ ers WITH 2-29 area(s). ity of LIDOCAINE 12:29: [place] TOPICAL 19 Medical Branch aspirin 2021-06 Yes 81mg Take 81 mg Univ ers (ADULT LOW 2-29 by mouth ity o f DOSE 12:29: daily. [place] ASPIRIN) 81 19 Medical mg EC Branch tablet CBD-KINGS 2021-06 Yes Apply to Univ ers WITH 2-29 area(s). ity of LIDOCAINE 12:29: [place] TOPICAL 19 Medical Branch aspirin 2021-06 Yes 81mg Take 81 mg Univ ers (ADULT LOW 2-29 by mouth ity o f DOSE 12:29: daily. [place] ASPIRIN) 81 19 Medical mg EC Branch tablet CBD-KINGS 2021-06 Yes Apply to Univ ers WITH 2-29 area(s). ity of LIDOCAINE 12:29: [place] TOPICAL 19 Medical Branch aspirin 2021-06 Yes 81mg Take 81 mg Univ ers (ADULT LOW 2-29 by mouth ity o f DOSE 12:29: daily. [place] ASPIRIN) 81 19 Medical mg EC Branch tablet CBD-KINGS 2021-06 Yes Apply to Univ ers WITH 2-29 area(s). ity of LIDOCAINE 12:29: [place] TOPICAL 19 Medical Branch aspirin 2021-06 Yes 81mg Take 81 mg Univ ers (ADULT LOW 2-29 by mouth ity o f DOSE 12:29: daily. [place] ASPIRIN) 81 19 Medical mg EC Branch tablet CBD-KINGS 2021-06 Yes Apply to Univ ers WITH 2-29 area(s). ity of LIDOCAINE 12:29: [place] TOPICAL 19 Medical Branch aspirin 2021-06 Yes 81mg Take 81 mg Univ ers (ADULT LOW 2-29 by mouth ity o f DOSE 12:29: daily. [place] ASPIRIN) 81 19 Medical mg EC Branch tablet CBD-KINGS 2021-06 Yes Apply to Univ ers WITH 2-29 area(s). ity of LIDOCAINE 12:29: [place] TOPICAL 19 Medical Branch aspirin 2021-06 Yes 81mg Take 81 mg Univ ers (ADULT LOW 2-29 by mouth ity o f DOSE 12:29: daily. [place] ASPIRIN) 81 19 Medical mg EC Branch tablet CBD-KINGS 2021-06 Yes Apply to Univ ers WITH 2-29 area(s). ity of LIDOCAINE 12:29: [place] TOPICAL 19 Medical Branch aspirin 2021-06 Yes 81mg Take 81 mg Univ ers (ADULT LOW 2-29 by mouth ity o f DOSE 12:29: daily. [place] ASPIRIN) 81 19 Medical mg EC Branch tablet CBD-KINGS 2021-06 Yes Apply to Univ ers WITH 2-29 area(s). ity of LIDOCAINE 12:29: [place] TOPICAL 19 Medical Branch aspirin 2021-06 Yes 81mg Take 81 mg Univ ers (ADULT LOW 2-29 by mouth ity o f DOSE 06:26: daily. [place] ASPIRIN) 81 18 Medical mg EC Branch tablet CBD-KINGS 2021-06 Yes Apply to Univ ers WITH 2-29 area(s). ity of LIDOCAINE 06:26: [place] TOPICAL 18 Medical Branch lisinopriL 2021-06 Yes [id number] 20mg Take 1 U nivers 20 mg 2-29 tablet by ity of tablet 00:00: mouth in [place] 00 the Medical morning. Branch lisinopriL 2021-06 Yes [id number] 20mg Take 1 U nivers 20 mg 2-29 tablet by ity of tablet 00:00: mouth in [place] 00 the Medical morning. Branch lisinopriL 2021-06 Yes [id number] 20mg Take 1 U nivers 20 mg 2-29 tablet by ity of tablet 00:00: mouth in [place] the Medical morning. Branch lisinopriL 2021- Yes [id number] 20mg Take 1 U nivers 20 mg 2-29 tablet by ity of tablet 00:00: mouth in [place] the Medical morning. Branch lisinopriL 2021-06 Yes [id number] 20mg Take 1 U nivers 20 mg 2-29 tablet by ity of tablet 00:00: mouth in [place] the Medical morning. Branch lisinopriL 2021-06 Yes [id number] 20mg Take 1 U nivers 20 mg 2-29 tablet by ity of tablet 00:00: mouth in [place] the Medical morning. Branch lisinopriL 2021-06 Yes [id number] 20mg Take 1 U nivers 20 mg 2-29 tablet by ity of tablet 00:00: mouth in [place] the Medical morning. Branch nystatin 2021-06 Yes [id number] Apply to Univers 100,000 2-12 area(s) 2 ity of unit/gram 00:00: (two) [place] powder 00 times Medical daily. Branch nystatin 2021-06 Yes [id number] Apply to Univers 100,000 2-12 area(s) 2 ity of unit/gram 00:00: (two) [place] powder 00 times Medical daily. Branch nystatin 2021-06 Yes [id number] Apply to Univers 100,000 2-12 area(s) 2 ity of unit/gram 00:00: (two) [place] powder 00 times Medical daily. Branch nystatin 2021-06 Yes [id number] Apply to Univers 100,000 2-12 area(s) 2 ity of unit/gram 00:00: (two) [place] powder 00 times Medical daily. Branch nystatin 2021- Yes [id number] Apply to Univers 100,000 2-12 area(s) 2 ity of unit/gram 00:00: (two) [place] powder 00 times Medical daily. Branch nystatin 2021- Yes [id number] Apply to Univers 100,000 2-12 area(s) 2 ity of unit/gram 00:00: (two) [place] powder 00 times Medical daily. Branch nystatin 2021- Yes [id number] Apply to Univers 100,000 2-12 area(s) 2 ity of unit/gram 00:00: (two) [place] powder 00 times Medical daily. Branch nystatin 2021-06 Yes [id number] Apply to Univers 100,000 2-12 area(s) 2 ity of unit/gram 00:00: (two) [place] powder 00 times Medical daily. Branch nystatin 2021-06 Yes [id number] Apply to Univers 100,000 2-12 area(s) 2 ity of unit/gram 00:00: (two) [place] powder 00 times Medical daily. Branch fluconazole 2021-06- Yes [id number] 150mg Take 1 Univers 150 mg 08-02 tablet by ity of tablet 00:00: 05:59 mouth [place] 00 :00 every 4 Medical (four) Branch days for 4 doses. promethazin 2021-06 Yes [id number] 5mL Take 5 mL Univers e-dextromet 1-29 by mouth 4 it y of horphan 00:00: (four) [place] 6.25-15 00 times Medical mg/5 mL daily as Branch syrup needed for Cough. promethazin 2021-06 Yes [id number] 5mL Take 5 mL Univers e-dextromet 1-29 by mouth 4 it y of horphan 00:00: (four) [place] 6.25-15 00 times Medical mg/5 mL daily as Branch syrup needed for Cough. promethazin 2021-06 Yes [id number] 5mL Take 5 mL Univers e-dextromet 1-29 by mouth 4 it y of horphan 00:00: (four) [place] 6.25-15 00 times Medical mg/5 mL daily as Branch syrup needed for Cough. promethazin 2021-06 Yes [id number] 5mL Take 5 mL Univers e-dextromet 1-29 by mouth 4 it y of horphan 00:00: (four) [place] 6.25-15 00 times Medical mg/5 mL daily as Branch syrup needed for Cough. promethazin 2021-06 Yes [id number] 5mL Take 5 mL Univers e-dextromet 1-29 by mouth 4 it y of horphan 00:00: (four) [place] 6.25-15 00 times Medical mg/5 mL daily as Branch syrup needed for Cough. promethazin 2021-06 Yes [id number] 5mL Take 5 mL Univers e-dextromet 1-29 by mouth 4 it y of horphan 00:00: (four) [place] 6.25-15 00 times Medical mg/5 mL daily as Branch syrup needed for Cough. promethazin 2021-06 Yes [id number] 5mL Take 5 mL Univers e-dextromet 1-29 by mouth 4 it y of horphan 00:00: (four) [place] 6.25-15 00 times Medical mg/5 mL daily as Branch syrup needed for Cough. promethazin 2021-06 Yes [id number] 5mL Take 5 mL Univers e-dextromet 1-29 by mouth 4 it y of horphan 00:00: (four) [place] 6.25-15 00 times Medical mg/5 mL daily as Branch syrup needed for Cough. promethazin 2021-06 Yes [id number] 5mL Take 5 mL Univers e-dextromet 1-29 by mouth 4 it y of horphan 00:00: (four) [place] 6.25-15 00 times Medical mg/5 mL daily as Branch syrup needed for Cough. promethazin 2021-06 Yes [id number] 5mL Take 5 mL Univers e-dextromet 1-29 by mouth 4 it y of horphan 00:00: (four) [place] 6.25-15 00 times Medical mg/5 mL daily as Branch syrup needed for Cough. ESCITALOPRA 2021-06 Yes [id number] TAKE 1 Univers M OXALATE 1-02 TABLET BY ity o f 10 mg 00:00: MOUTH [place] tablet 00 EVERY DAY Medical Branch ESCITALOPRA 2021-06 Yes [id number] TAKE 1 Univers M OXALATE 1-02 TABLET BY ity o f 10 mg 00:00: MOUTH [place] tablet 00 EVERY DAY Medical Branch ESCITALOPRA 2021-06 Yes [id number] TAKE 1 Univers M OXALATE 1-02 TABLET BY ity o f 10 mg 00:00: MOUTH [place] tablet 00 EVERY DAY Medical Branch ESCITALOPRA 2021-06 Yes [id number] TAKE 1 Univers M OXALATE 1-02 TABLET BY ity o f 10 mg 00:00: MOUTH [place] tablet 00 EVERY DAY Medical Branch ESCITALOPRA 2021-06 Yes [id number] TAKE 1 Univers M OXALATE 1-02 TABLET BY ity o f 10 mg 00:00: MOUTH [place] tablet 00 EVERY DAY Medical Branch ESCITALOPRA 2021-06 Yes [id number] TAKE 1 Univers M OXALATE 1-02 TABLET BY ity o f 10 mg 00:00: MOUTH [place] tablet 00 EVERY DAY Medical Branch ESCITALOPRA 2021-06 Yes [id number] TAKE 1 Univers M OXALATE 1-02 TABLET BY ity o f 10 mg 00:00: MOUTH [place] tablet 00 EVERY DAY Medical Branch ESCITALOPRA 2021-06 Yes [id number] TAKE 1 Univers M OXALATE 1-02 TABLET BY ity o f 10 mg 00:00: MOUTH [place] tablet 00 EVERY DAY Medical Branch ESCITALOPRA 2021-06 Yes [id number] TAKE 1 [facility] M OXALATE 1-02 TABLET BY ity o f 10 mg 00:00: MOUTH [place] tablet 00 EVERY DAY Medical Branch ESCITALOPRA 2021-06 Yes [id number] TAKE 1 [facility] M OXALATE 1-02 TABLET BY ity o f 10 mg 00:00: MOUTH [place] tablet 00 EVERY DAY Medical Branch ESCITALOPRA 2021-06 Yes [id number] TAKE 1 [facility] M OXALATE 1-02 TABLET BY ity o f 10 mg 00:00: MOUTH [place] tablet 00 EVERY DAY Medical Branch ESCITALOPRA 2021-06 Yes [id number] TAKE 1 [facility] M OXALATE 1-02 TABLET BY ity o f 10 mg 00:00: MOUTH [place] tablet 00 EVERY DAY Medical Branch ESCITALOPRA 2021-06 Yes [id number] TAKE 1 [facility] M OXALATE 1-02 TABLET BY ity o f 10 mg 00:00: MOUTH [place] tablet 00 EVERY DAY Medical Branch ESCITALOPRA 2021-06 Yes [id number] TAKE 1 [facility] M OXALATE 1-02 TABLET BY ity o f 10 mg 00:00: MOUTH [place] tablet 00 EVERY DAY Medical Branch ESCITALOPRA 2021-06 Yes [id number] TAKE 1 [facility] M OXALATE 1-02 TABLET BY ity o f 10 mg 00:00: MOUTH [place] tablet 00 EVERY DAY Medical Branch ESCITALOPRA 2021-06 Yes [id number] TAKE 1 [facility] M OXALATE 1-02 TABLET BY ity o f 10 mg 00:00: MOUTH [place] tablet 00 EVERY DAY Medical Branch ESCITALOPRA 2021-06 Yes [id number] TAKE 1 [facility] M OXALATE 1-02 TABLET BY ity o f 10 mg 00:00: MOUTH [place] tablet 00 EVERY DAY Medical Branch ESCITALOPRA 2021-06 Yes [id number] TAKE 1 [facility] M OXALATE 1- TABLET BY ity o f 10 mg 00:00: MOUTH [place] tablet 00 EVERY DAY [facility] gentamicin 2021-06- No [id number] 80mg [facility] injection 0-10 10-10 [id number] ity of 80 mg 20:15: 19:07 [place] 00 :00 [facility] gentamicin 2021-06- No [id number] 80mg 80 mg, Univers injection 0-10 10-10 [id number] Intramuscu i ty of 80 mg 20:15: 19:07 lar, ONCE, [place] 00 :00 1 dose, On [facility] 03/30/22 at 1515, PADMA
Re ason for Anti-Infec tive: Empiric Therapy for Suspected Infection< br>Empiric Therapy Site: Urine
D uration of therapy: 72 hours gentamicin 2021-06- No [id number] 80mg [facility] injection 0-10 10-10 [id number] ity of 80 mg 20:15: 19:07 [place] 00 :00 [facility] gentamicin 2021-06- No [id number] 80mg 80 mg, Univers injection 0-10 10-10 [id number] Intramuscu i ty of 80 mg 20:15: 19:07 lar, ONCE, [place] 00 :00 1 dose, On [facility] 03/30/22 at 1515, PADMA
Re ason for Anti-Infec tive: Empiric Therapy for Suspected Infection< br>Empiric Therapy Site: Urine
D uration of therapy: 72 hours GABAPENTIN 2021-06- No [id number] 300mg TAKE 1 [facility] 300 mg 0-11 28- CAPSULE BY ity of capsule 00:00: 04:59 MOUTH IN [place] 00 :00 THE [facility] Branch AND 1 CAPSULE AT NOON AND 1 CAPSULE IN THE EVENING. DO ALL THIS FOR 21 DAYS. GABAPENTIN 2021-06- No [id number] 300mg TAKE 1 [facility] 300 mg 0-11 28- CAPSULE BY ity of capsule 00:00: 04:59 MOUTH IN [place] 00 :00 THE [facility] Branch AND 1 CAPSULE AT NOON AND 1 CAPSULE IN THE EVENING. DO ALL THIS FOR 21 DAYS. GABAPENTIN 2021-06- No [id number] 300mg TAKE 1 [facility] 300 mg 0-11 28- CAPSULE BY ity of capsule 00:00: 04:59 MOUTH IN [place] 00 :00 THE Medical MORNING Branch AND 1 CAPSULE AT NOON AND 1 CAPSULE IN THE EVENING. DO ALL THIS FOR 21 DAYS. GABAPENTIN 2021-06 No [id number] 300mg TAKE 1 [facility] 300 mg 0-06 -28 CAPSULE BY ity of capsule 00:00: 04:59 MOUTH IN [place] 00 :00 THE Medical MORNING Branch AND 1 CAPSULE AT NOON AND 1 CAPSULE IN THE EVENING. DO ALL THIS FOR 21 DAYS. GABAPENTIN 2021-06- No [id number] 300mg TAKE 1 [facility] 300 mg 0-06 -28 CAPSULE BY ity of capsule 00:00: 04:59 MOUTH IN [place] 00 :00 THE Medical MORNING Branch AND 1 CAPSULE AT NOON AND 1 CAPSULE IN THE EVENING. DO ALL THIS FOR 21 DAYS. Insulin Asp Yes [id number] INJECT 20 [facility] Prt-Insulin 9-14 UNITS ity of Aspart 00:00: UNDER THE [place] (NOVOLOG 00 SKIN 2 Medical MIX 70-30) (TWO) Branch 100 unit/mL TIMES (70-30) DAILY injection BEFORE BREAKFAST AND DINNER. Insulin Asp Yes [id number] INJECT 20 [facility] Prt-Insulin 9-14 UNITS ity of Aspart 00:00: UNDER THE [place] (NOVOLOG 00 SKIN 2 Medical MIX 70-30) (TWO) Branch 100 unit/mL TIMES (70-30) DAILY injection BEFORE BREAKFAST AND DINNER. Insulin Asp Yes [id number] INJECT 20 [facility] Prt-Insulin 9-14 UNITS ity of Aspart 00:00: UNDER THE [place] (NOVOLOG 00 SKIN 2 Medical MIX 70-30) (TWO) Branch 100 unit/mL TIMES (70-30) DAILY injection BEFORE BREAKFAST AND DINNER. Insulin Asp Yes [id number] INJECT 20 [facility] Prt-Insulin 9-14 UNITS ity of Aspart 00:00: UNDER THE [place] (NOVOLOG 00 SKIN 2 Medical MIX 70-30) (TWO) Branch 100 unit/mL TIMES (70-30) DAILY injection BEFORE BREAKFAST AND DINNER. Insulin Asp Yes [id number] INJECT 20 [facility] Prt-Insulin 9-14 UNITS ity of Aspart 00:00: UNDER THE [place] (NOVOLOG 00 SKIN 2 Medical MIX 70-30) (TWO) Branch 100 unit/mL TIMES (70-30) DAILY injection BEFORE BREAKFAST AND DINNER. Insulin Asp 0 Yes [id number] INJECT 20 [facility] Prt-Insulin 9-14 UNITS ity of Aspart 00:00: UNDER THE [place] (NOVOLOG 00 SKIN 2 Medical MIX 70-30) (TWO) Branch 100 unit/mL TIMES (70-30) DAILY injection BEFORE BREAKFAST AND DINNER. Insulin Asp 0 Yes [id number] INJECT 20 [facility] Prt-Insulin 9-14 UNITS ity of Aspart 00:00: UNDER THE [place] (NOVOLOG 00 SKIN 2 Medical MIX 70-30) (TWO) Branch 100 unit/mL TIMES (70-30) DAILY injection BEFORE BREAKFAST AND DINNER. Insulin Asp 2021-0 Yes [id number] INJECT 20 [facility] Prt-Insulin 9-14 UNITS ity of Aspart 00:00: UNDER THE [place] (NOVOLOG 00 SKIN 2 Medical MIX 70-30) (TWO) Branch 100 unit/mL TIMES (70-30) DAILY injection BEFORE BREAKFAST AND DINNER. Insulin Asp Yes [id number] INJECT 20 [facility] Prt-Insulin 9-14 UNITS ity of Aspart 00:00: UNDER THE [place] (NOVOLOG 00 SKIN 2 Medical MIX 70-30) (TWO) Branch 100 unit/mL TIMES (70-30) DAILY injection BEFORE BREAKFAST AND DINNER. Insulin Asp Yes [id number] INJECT 20 [facility] Prt-Insulin 9-14 UNITS ity of Aspart 00:00: UNDER THE [place] (NOVOLOG 00 SKIN 2 Medical MIX 70-30) (TWO) Branch 100 unit/mL TIMES (70-30) DAILY injection BEFORE BREAKFAST AND DINNER. Insulin Asp Yes [id number] INJECT 20 [facility] Prt-Insulin 9-14 UNITS ity of Aspart 00:00: UNDER THE [place] (NOVOLOG 00 SKIN 2 Medical MIX 70-30) (TWO) Branch 100 unit/mL TIMES (70-30) DAILY injection BEFORE BREAKFAST AND DINNER. Insulin Asp 2021- Yes [id number] INJECT 20 [facility] Prt-Insulin 9-14 UNITS ity of Aspart 00:00: UNDER THE [place] (NOVOLOG 00 SKIN 2 Medical MIX 70-30) (TWO) Branch 100 unit/mL TIMES (70-30) DAILY injection BEFORE BREAKFAST AND DINNER. Insulin Asp Yes [id number] INJECT 20 [facility] Prt-Insulin 9-14 UNITS ity of Aspart 00:00: UNDER THE [place] (NOVOLOG 00 SKIN 2 Medical MIX 70-30) (TWO) Branch 100 unit/mL TIMES (70-30) DAILY injection BEFORE BREAKFAST AND DINNER. Insulin Asp 2021-0 Yes [id number] INJECT 20 [facility] Prt-Insulin 9-14 UNITS ity of Aspart 00:00: UNDER THE [place] (NOVOLOG 00 SKIN 2 Medical MIX 70-30) (TWO) Branch 100 unit/mL TIMES (70-30) DAILY injection BEFORE BREAKFAST AND DINNER. Insulin Asp 2021-0 Yes [id number] INJECT 20 [facility] Prt-Insulin 9-14 UNITS ity of Aspart 00:00: UNDER THE [place] (NOVOLOG 00 SKIN 2 Medical MIX 70-30) (TWO) Branch 100 unit/mL TIMES (70-30) DAILY injection BEFORE BREAKFAST AND DINNER. Insulin Asp 2021-0 Yes [id number] INJECT 20 [facility] Prt-Insulin 9-14 UNITS ity of Aspart 00:00: UNDER THE [place] (NOVOLOG 00 SKIN 2 Medical MIX 70-30) (TWO) Branch 100 unit/mL TIMES (70-30) DAILY injection BEFORE BREAKFAST AND DINNER. Insulin Asp 2021-0 Yes [id number] INJECT 20 [facility] Prt-Insulin 9-14 UNITS ity of Aspart 00:00: UNDER THE [place] (NOVOLOG 00 SKIN 2 Medical MIX 70-30) (TWO) Branch 100 unit/mL TIMES (70-30) DAILY injection BEFORE BREAKFAST AND DINNER. Insulin Asp 2021-0 Yes [id number] INJECT 20 [facility] Prt-Insulin 9-14 UNITS ity of Aspart 00:00: UNDER THE [place] (NOVOLOG 00 SKIN 2 Medical MIX 70-30) (TWO) Branch 100 unit/mL TIMES (70-30) DAILY injection BEFORE BREAKFAST AND DINNER. Insulin Asp 2021-0 Yes [id number] INJECT 20 [facility] Prt-Insulin 9-14 UNITS ity of Aspart 00:00: UNDER THE [place] (NOVOLOG 00 SKIN 2 Medical MIX 70-30) (TWO) Branch 100 unit/mL TIMES (70-30) DAILY injection BEFORE BREAKFAST AND DINNER. Insulin Asp 2021-0 Yes [id number] INJECT 20 [facility] Prt-Insulin 9-14 UNITS ity of Aspart 00:00: UNDER THE [place] (NOVOLOG 00 SKIN 2 Medical MIX 70-30) (TWO) Branch 100 unit/mL TIMES (70-30) DAILY injection BEFORE BREAKFAST AND DINNER. Insulin Asp 2021-0 Yes [id number] INJECT 20 [facility] Prt-Insulin 9-14 UNITS ity of Aspart 00:00: UNDER THE [place] (NOVOLOG 00 SKIN 2 Medical MIX 70-30) (TWO) Branch 100 unit/mL TIMES (70-30) DAILY injection BEFORE BREAKFAST AND DINNER. Insulin Asp Yes [id number] INJECT 20 [facility] Prt-Insulin 9-14 UNITS ity of Aspart 00:00: UNDER THE [place] (NOVOLOG 00 SKIN 2 Medical MIX 70-30) (TWO) Branch 100 unit/mL TIMES (70-30) DAILY injection BEFORE BREAKFAST AND DINNER. Insulin Asp Yes [id number] INJECT 20 [facility] Prt-Insulin 9-14 UNITS ity of Aspart 00:00: UNDER THE [place] (NOVOLOG 00 SKIN 2 Medical MIX 70-30) (TWO) Branch 100 unit/mL TIMES (70-30) DAILY injection BEFORE BREAKFAST AND DINNER. Insulin Asp Yes [id number] INJECT 20 [facility] Prt-Insulin 9-14 UNITS ity of Aspart 00:00: UNDER THE [place] (NOVOLOG 00 SKIN 2 Medical MIX 70-30) (TWO) Branch 100 unit/mL TIMES (70-30) DAILY injection BEFORE BREAKFAST AND DINNER. Insulin Asp Yes [id number] INJECT 20 [facility] Prt-Insulin 9-14 UNITS ity of Aspart 00:00: UNDER THE [place] (NOVOLOG 00 SKIN 2 Medical MIX 70-30) (TWO) Branch 100 unit/mL TIMES (70-30) DAILY injection BEFORE BREAKFAST AND DINNER. gabapentin 2021- No [id number] 300mg Take 1 [facility] 300 mg 02-02 capsule by ity of capsule 00:00: 04:59 mouth in [place] 00 :00 the Medical morning Branch and 1 capsule at noon and 1 capsule in the evening. Do all this for 21 days. gabapentin 2021- No [id number] 300mg Take 1 [facility] 300 mg 02-02 capsule by ity of capsule 00:00: 04:59 mouth in [place] 00 :00 the Medical morning Branch and 1 capsule at noon and 1 capsule in the evening. Do all this for 21 days. blood sugar Yes [id number] USE TWICE [facility] diagnostic 8-04 DAILY FOR ity of (ASCENSIA 00:00: BLOOD [facility] [place] [facility]) 00 GLUCOSE Medica l strip MONITORING Branch FINASTERIDE Yes [id number] TAKE 1 [facility] 5 mg tablet 8-04 TABLET BY ity of 00:00: MOUTH [place] 00 EVERY DAY Medical Branch blood sugar Yes [id number] USE TWICE [facility] diagnostic 8-04 DAILY FOR ity of (ASCENSIA 00:00: BLOOD [place] MICROFILL) 00 GLUCOSE Medica l strip MONITORING Branch FINASTERIDE Yes [id number] TAKE 1 [facility] 5 mg tablet 8-04 TABLET BY ity of 00:00: MOUTH [place] 00 EVERY DAY Medical Branch blood sugar Yes [id number] USE TWICE [facility] diagnostic 8-04 DAILY FOR ity of (ASCENSIA 00:00: BLOOD [place] MICROFILL) 00 GLUCOSE Medica l strip MONITORING Branch FINASTERIDE Yes [id number] TAKE 1 [facility] 5 mg tablet 8-04 TABLET BY ity of 00:00: MOUTH [place] 00 EVERY DAY Medical Branch blood sugar Yes [id number] USE TWICE [facility] diagnostic 8-04 DAILY FOR ity of (ASCENSIA 00:00: BLOOD [place] MICROFILL) 00 GLUCOSE Medica l strip MONITORING Branch FINASTERIDE Yes [id number] TAKE 1 [facility] 5 mg tablet 8-04 TABLET BY ity of 00:00: MOUTH [place] 00 EVERY DAY Medical Branch blood sugar Yes [id number] USE TWICE [facility] diagnostic 8-04 DAILY FOR ity of (ASCENSIA 00:00: BLOOD [place] MICROFILL) 00 GLUCOSE Medica l strip MONITORING Branch FINASTERIDE Yes [id number] TAKE 1 [facility] 5 mg tablet 8-04 TABLET BY ity of 00:00: MOUTH [place] 00 EVERY DAY Medical Branch blood sugar Yes [id number] USE TWICE [facility] diagnostic 8-04 DAILY FOR ity of (ASCENSIA 00:00: BLOOD [place] MICROFILL) 00 GLUCOSE Medica l strip MONITORING Branch FINASTERIDE Yes [id number] TAKE 1 [facility] 5 mg tablet 8-04 TABLET BY ity of 00:00: MOUTH [place] 00 EVERY DAY Medical Branch blood sugar Yes [id number] USE TWICE [facility] diagnostic 8-04 DAILY FOR ity of (ASCENSIA 00:00: BLOOD [place] MICROFILL) 00 GLUCOSE Medica l strip MONITORING Branch FINASTERIDE Yes [id number] TAKE 1 [facility] 5 mg tablet 8-04 TABLET BY ity of 00:00: MOUTH [place] 00 EVERY DAY Medical Branch blood sugar 0 Yes [id number] USE TWICE [facility] diagnostic 8-04 DAILY FOR ity of (ASCENSIA 00:00: BLOOD [place] MICROFILL) 00 GLUCOSE Medica l strip MONITORING Branch FINASTERIDE Yes [id number] TAKE 1 [facility] 5 mg tablet 8-04 TABLET BY ity of 00:00: MOUTH [place] 00 EVERY DAY Medical Branch blood sugar Yes [id number] USE TWICE [facility] diagnostic 8-04 DAILY FOR ity of (ASCENSIA 00:00: BLOOD [place] MICROFILL) 00 GLUCOSE Medica l strip MONITORING Branch FINASTERIDE Yes [id number] TAKE 1 [facility] 5 mg tablet 8-04 TABLET BY ity of 00:00: MOUTH [place] 00 EVERY DAY Medical Branch blood sugar Yes [id number] USE TWICE [facility] diagnostic 8-04 DAILY FOR ity of (ASCENSIA 00:00: BLOOD [place] MICROFILL) 00 GLUCOSE Medica l strip MONITORING Branch FINASTERIDE Yes [id number] TAKE 1 [facility] 5 mg tablet 8-04 TABLET BY ity of 00:00: MOUTH [place] 00 EVERY DAY Medical Branch blood sugar Yes [id number] USE TWICE [facility] diagnostic 8-04 DAILY FOR ity of (ASCENSIA 00:00: BLOOD [place] MICROFILL) 00 GLUCOSE Medica l strip MONITORING Branch FINASTERIDE Yes [id number] TAKE 1 [facility] 5 mg tablet 8-04 TABLET BY ity of 00:00: MOUTH [place] 00 EVERY DAY Medical Branch blood sugar 2021-0 Yes [id number] USE TWICE [facility] diagnostic 8-04 DAILY FOR ity of (ASCENSIA 00:00: BLOOD [place] MICROFILL) 00 GLUCOSE Medica l strip MONITORING Branch FINASTERIDE 0 Yes [id number] TAKE 1 [facility] 5 mg tablet 8-04 TABLET BY ity of 00:00: MOUTH [place] 00 EVERY DAY Medical Branch blood sugar 2021-0 Yes [id number] USE TWICE [facility] diagnostic 8-04 DAILY FOR ity of (ASCENSIA 00:00: BLOOD [place] MICROFILL) 00 GLUCOSE Medica l strip MONITORING Branch FINASTERIDE 0 Yes [id number] TAKE 1 [facility] 5 mg tablet 8-04 TABLET BY ity of 00:00: MOUTH [place] 00 EVERY DAY Medical Branch blood sugar 0 Yes [id number] USE TWICE [facility] diagnostic 8-04 DAILY FOR ity of (ASCENSIA 00:00: BLOOD [place] MICROFILL) 00 GLUCOSE Medica l strip MONITORING Branch FINASTERIDE 0 Yes [id number] TAKE 1 [facility] 5 mg tablet 8-04 TABLET BY ity of 00:00: MOUTH [place] 00 EVERY DAY Medical Branch blood sugar 0 Yes [id number] USE TWICE [facility] diagnostic 8-04 DAILY FOR ity of (ASCENSIA 00:00: BLOOD [place] MICROFILL) 00 GLUCOSE Medica l strip MONITORING Branch FINASTERIDE Yes [id number] TAKE 1 [facility] 5 mg tablet 8-04 TABLET BY ity of 00:00: MOUTH [place] 00 EVERY DAY Medical Branch blood sugar Yes [id number] USE TWICE [facility] diagnostic 8-04 DAILY FOR ity of (ASCENSIA 00:00: BLOOD [place] MICROFILL) 00 GLUCOSE Medica l strip MONITORING Branch FINASTERIDE Yes [id number] TAKE 1 [facility] 5 mg tablet 8-04 TABLET BY ity of 00:00: MOUTH [place] 00 EVERY DAY Medical Branch blood sugar 0 Yes [id number] USE TWICE [facility] diagnostic 8-04 DAILY FOR ity of (ASCENSIA 00:00: BLOOD [place] MICROFILL) 00 GLUCOSE Medica l strip MONITORING Branch FINASTERIDE 0 Yes [id number] TAKE 1 [facility] 5 mg tablet 8-04 TABLET BY ity of 00:00: MOUTH [place] 00 EVERY DAY Medical Branch blood sugar 0 Yes [id number] USE TWICE [facility] diagnostic 8-04 DAILY FOR ity of (ASCENSIA 00:00: BLOOD [place] MICROFILL) 00 GLUCOSE Medica l strip MONITORING Branch FINASTERIDE 0 Yes [id number] TAKE 1 [facility] 5 mg tablet 8-04 TABLET BY ity of 00:00: MOUTH [place] 00 EVERY DAY Medical Branch blood sugar 2021-0 Yes [id number] USE TWICE [facility] diagnostic 8-04 DAILY FOR ity of (ASCENSIA 00:00: BLOOD [place] MICROFILL) 00 GLUCOSE Medica l strip MONITORING Branch FINASTERIDE 0 Yes [id number] TAKE 1 [facility] 5 mg tablet 8-04 TABLET BY ity of 00:00: MOUTH [place] 00 EVERY DAY Medical Branch blood sugar 2022-0 Yes [id number] USE TWICE [facility] diagnostic 8-04 DAILY FOR ity of (ASCENSIA 00:00: BLOOD [place] MICROFILL) 00 GLUCOSE Medica l strip MONITORING Branch FINASTERIDE 0 Yes [id number] TAKE 1 [facility] 5 mg tablet 8-04 TABLET BY ity of 00:00: MOUTH [place] 00 EVERY DAY Medical Branch blood sugar 0 Yes [id number] USE TWICE [facility] diagnostic 8-04 DAILY FOR ity of (ASCENSIA 00:00: BLOOD [place] MICROFILL) 00 GLUCOSE Medica l strip MONITORING Branch FINASTERIDE 0 Yes [id number] TAKE 1 [facility] 5 mg tablet 8-04 TABLET BY ity of 00:00: MOUTH [place] 00 EVERY DAY Medical Branch blood sugar 0 Yes [id number] USE TWICE [facility] diagnostic 8-04 DAILY FOR ity of (ASCENSIA 00:00: BLOOD [place] MICROFILL) 00 GLUCOSE Medica l strip MONITORING Branch FINASTERIDE 0 Yes [id number] TAKE 1 [facility] 5 mg tablet 8-04 TABLET BY ity of 00:00: MOUTH [place] 00 EVERY DAY Medical Branch blood sugar 0 Yes [id number] USE TWICE [facility] diagnostic 8-04 DAILY FOR ity of (ASCENSIA 00:00: BLOOD [place] MICROFILL) 00 GLUCOSE Medica l strip MONITORING Branch FINASTERIDE 0 Yes [id number] TAKE 1 [facility] 5 mg tablet 8-04 TABLET BY ity of 00:00: MOUTH [place] 00 EVERY DAY Medical Branch blood sugar 0 Yes [id number] USE TWICE [facility] diagnostic 8-04 DAILY FOR ity of (ASCENSIA 00:00: BLOOD [place] MICROFILL) 00 GLUCOSE Medica l strip MONITORING Branch FINASTERIDE 0 Yes [id number] TAKE 1 [facility] 5 mg tablet 8-04 TABLET BY ity of 00:00: MOUTH [place] 00 EVERY DAY Medical Branch blood sugar 0 Yes [id number] USE TWICE [facility] diagnostic 8-04 DAILY FOR ity of (ASCENSIA 00:00: BLOOD [place] MICROFILL) 00 GLUCOSE Medica l strip MONITORING Branch FINASTERIDE 0 Yes [id number] TAKE 1 [facility] 5 mg tablet 8-04 TABLET BY ity of 00:00: MOUTH [place] 00 EVERY DAY Medical Branch blood sugar 0 Yes [id number] USE TWICE [facility] diagnostic 8-04 DAILY FOR ity of (ASCENSIA 00:00: BLOOD [place] MICROFILL) 00 GLUCOSE Medica l strip MONITORING [place] FINASTERIDE Yes [id number] TAKE 1 [facility] 5 mg tablet 8-04 TABLET BY ity of 00:00: MOUTH [place] 00 EVERY DAY Medical [place] blood sugar 0 Yes [id number] USE TWICE [facility] diagnostic 8-04 DAILY FOR ity of (ASCENSIA 00:00: BLOOD [place] MICROFILL) 00 GLUCOSE Medica l strip MONITORING [place] FINASTERIDE Yes [id number] TAKE 1 [facility] 5 mg tablet 8-04 TABLET BY ity of 00:00: MOUTH [place] 00 EVERY DAY [facility] blood sugar Yes [id number] USE TWICE [facility] diagnostic 8-04 DAILY FOR ity of (ASCENSIA 00:00: BLOOD [place] MICROFILL) 00 GLUCOSE Medica l strip MONITORING [place] FINASTERIDE Yes [id number] TAKE 1 [facility] 5 mg tablet 8-04 TABLET BY ity of 00:00: MOUTH [place] 00 EVERY DAY [facility] escitalopra Yes [id number] 20mg Take 2 [facility] m oxalate 7-29 tablets by ity of 10 mg 00:00: mouth in [place] tablet 00 the Medical morning. [place] escitalopra Yes [id number] 20mg Take 2 [facility] m oxalate 7-29 tablets by ity of 10 mg 00:00: mouth in [place] tablet 00 the Medical morning. [place] escitalopra Yes [id number] 20mg Take 2 [facility] m oxalate 7-29 tablets by ity of 10 mg 00:00: mouth in [place] tablet 00 the Medical morning. [place] escitalopra Yes [id number] 20mg Take 2 [facility] m oxalate 7-29 tablets by ity of 10 mg 00:00: mouth in [place] tablet 00 the Medical morning. [place] escitalopra Yes [id number] 20mg Take 2 [facility] m oxalate 7-29 tablets by ity of 10 mg 00:00: mouth in [place] tablet 00 the Medical morning. [place] escitalopra Yes [id number] 20mg Take 2 [facility] m oxalate 7-29 tablets by ity of 10 mg 00:00: mouth in [place] tablet 00 the Medical morning. [place] escitalopra Yes [id number] 20mg Take 2 [facility] m oxalate 7-29 tablets by ity of 10 mg 00:00: mouth in [place] tablet 00 the Medical morning. Branch escitalopra 2021-0 Yes [id number] 20mg Take 2 [facility] m oxalate 7-29 tablets by ity of 10 mg 00:00: mouth in [place] tablet 00 the Medical morning. Branch escitalopra 2021-0 Yes [id number] 20mg Take 2 [facility] m oxalate 7-29 tablets by ity of 10 mg 00:00: mouth in [place] tablet 00 the Medical morning. Branch escitalopra 2021-0 Yes [id number] 20mg Take 2 [facility] m oxalate 7-29 tablets by ity of 10 mg 00:00: mouth in [place] tablet 00 the Medical morning. Branch escitalopra 2021-0 2022- No [id number] 20mg Take 2 [facility] m oxalate 7-29 11-02 tablets by ity of 10 mg 00:00: 00:00 mouth in [place] tablet 00 :00 the Medical morning. Branch tiZANidine 2021-0 Yes [id number] 4mg Take 1 U nivers 4 mg tablet 7-12 tablet by ity of 00:00: mouth 3 [place] 00 (three) Medical times Branch daily as needed for Pain (scale 4-6). clotrimazol 2021-0 Yes [id number] Apply to [facility] e-betametha 7-12 area(s) 2 ity of sone 00:00: (two) [place] (LOTRISONE) 00 times Medical cream daily. Branch tiZANidine 2021-0 Yes [id number] 4mg Take 1 U nivers 4 mg tablet 7-12 tablet by ity of 00:00: mouth 3 [place] 00 (three) Medical times Branch daily as needed for Pain (scale 4-6). clotrimazol 2021-0 Yes [id number] Apply to [facility] e-betametha 7-12 area(s) 2 ity of sone 00:00: (two) [place] (LOTRISONE) 00 times Medical cream daily. Branch tiZANidine 2021-0 Yes [id number] 4mg Take 1 U nivers 4 mg tablet 7-12 tablet by ity of 00:00: mouth 3 [place] 00 (three) Medical times Branch daily as needed for Pain (scale 4-6). clotrimazol 2021-0 Yes [id number] Apply to [facility] e-betametha 7-12 area(s) 2 ity of sone 00:00: (two) [place] (LOTRISONE) 00 times Medical cream daily. Branch tiZANidine 2022-0 Yes [id number] 4mg Take 1 U nivers 4 mg tablet 7-12 tablet by ity of 00:00: mouth 3 [place] 00 (three) Medical times Branch daily as needed for Pain (scale 4-6). clotrimazol 2022-0 Yes [id number] Apply to [facility] e-betametha 7-12 area(s) 2 ity of sone 00:00: (two) [place] (LOTRISONE) 00 times Medical cream daily. Branch tiZANidine 2022-0 Yes [id number] 4mg Take 1 U nivers 4 mg tablet 7-12 tablet by ity of 00:00: mouth 3 00 (three) Medical times Branch daily as needed for Pain (scale 4-6). clotrimazol 2022-0 Yes [id number] Apply to [facility] e-betametha 7-12 area(s) 2 ity of sone 00:00: (two) [place] (LOTRISONE) 00 times Medical cream daily. Branch tiZANidine 2022-0 Yes [id number] 4mg Take 1 U nivers 4 mg tablet 7-12 tablet by ity of 00:00: mouth 3 [place] 00 (three) Medical times Branch daily as needed for Pain (scale 4-6). clotrimazol 2022-0 Yes [id number] Apply to [facility] e-betametha 7-12 area(s) 2 ity of sone 00:00: (two) [place] (LOTRISONE) 00 times Medical cream daily. Branch tiZANidine 2022-0 Yes [id number] 4mg Take 1 U nivers 4 mg tablet 7-12 tablet by ity of 00:00: mouth 3 [place] 00 (three) Medical times Branch daily as needed for Pain (scale 4-6). clotrimazol 2022-0 Yes [id number] Apply to [facility] e-betametha 7-12 area(s) 2 ity of sone 00:00: (two) [place] (LOTRISONE) 00 times Medical cream daily. Branch tiZANidine 2022-0 Yes [id number] 4mg Take 1 U nivers 4 mg tablet 7-12 tablet by ity of 00:00: mouth 3 [place] 00 (three) Medical times Branch daily as needed for Pain (scale 4-6). clotrimazol 2022-0 Yes [id number] Apply to [facility] e-betametha 7-12 area(s) 2 ity of sone 00:00: (two) [place] (LOTRISONE) 00 times Medical cream daily. Branch tiZANidine 2022-0 Yes [id number] 4mg Take 1 U nivers 4 mg tablet 7-12 tablet by ity of 00:00: mouth 3 [place] 00 (three) Medical times Branch daily as needed for Pain (scale 4-6). clotrimazol 2-0 Yes [id number] Apply to [facility] e-betametha 7-12 area(s) 2 ity of sone 00:00: (two) [place] (LOTRISONE) 00 times Medical cream daily. Branch tiZANidine 2-0 Yes [id number] 4mg Take 1 U nivers 4 mg tablet 7-12 tablet by ity of 00:00: mouth 3 [place] 00 (three) Medical times Branch daily as needed for Pain (scale 4-6). clotrimazol 2-0 Yes [id number] Apply to [facility] e-betametha 7-12 area(s) 2 ity of sone 00:00: (two) [place] (LOTRISONE) 00 times Medical cream daily. Branch tiZANidine 2-0 Yes [id number] 4mg Take 1 U nivers 4 mg tablet 7-12 tablet by ity of 00:00: mouth 3 [place] 00 (three) Medical times Branch daily as needed for Pain (scale 4-6). clotrimazol 2022-0 Yes [id number] Apply to [facility] e-betametha 7-12 area(s) 2 ity of sone 00:00: (two) [place] (LOTRISONE) 00 times Medical cream daily. Branch tiZANidine 2022-0 Yes [id number] 4mg Take 1 U nivers 4 mg tablet 7-12 tablet by ity of 00:00: mouth 3 [place] 00 (three) Medical times Branch daily as needed for Pain (scale 4-6). clotrimazol 2022-0 Yes [id number] Apply to [facility] e-betametha 7-12 area(s) 2 ity of sone 00:00: (two) [place] (LOTRISONE) 00 times Medical cream daily. Branch tiZANidine 2022-0 Yes [id number] 4mg Take 1 U nivers 4 mg tablet 7-12 tablet by ity of 00:00: mouth 3 [place] 00 (three) Medical times Branch daily as needed for Pain (scale 4-6). clotrimazol 2022-0 Yes [id number] Apply to Univers e-betametha 7-12 area(s) 2 ity of sone 00:00: (two) [place] (LOTRISONE) 00 times Medical cream daily. Branch tiZANidine 2022-0 Yes [id number] 4mg Take 1 U nivers 4 mg tablet 7-12 tablet by ity of 00:00: mouth 3 00 (three) Medical times Branch daily as needed for Pain (scale 4-6). clotrimazol 2022-0 Yes [id number] Apply to [facility] e-betametha 7-12 area(s) 2 ity of sone 00:00: (two) [place] (LOTRISONE) 00 times Medical cream daily. Branch tiZANidine 2022-0 Yes [id number] 4mg Take 1 U nivers 4 mg tablet 7-12 tablet by ity of 00:00: mouth 3 00 (three) Medical times Branch daily as needed for Pain (scale 4-6). clotrimazol 2022-0 Yes [id number] Apply to [facility] e-betametha 7-12 area(s) 2 ity of sone 00:00: (two) [place] (LOTRISONE) 00 times Medical cream daily. Branch tiZANidine 2022-0 Yes [id number] 4mg Take 1 [facility] nivers 4 mg tablet 7-12 tablet by ity of 00:00: mouth 3 00 (three) Medical times Branch daily as needed for Pain (scale 4-6). clotrimazol 2022-0 Yes [id number] Apply to [facility] e-betametha 7-12 area(s) 2 ity of sone 00:00: (two) [place] (LOTRISONE) 00 times Medical cream daily. Branch tiZANidine 2022-0 Yes [id number] 4mg Take 1 U nivers 4 mg tablet 7-12 tablet by ity of 00:00: mouth 3 [place] 00 (three) Medical times Branch daily as needed for Pain (scale 4-6). clotrimazol 2022-0 Yes [id number] Apply to [facility] e-betametha 7-12 area(s) 2 ity of sone 00:00: (two) [place] (LOTRISONE) 00 times Medical cream daily. Branch tiZANidine 2022-0 Yes [id number] 4mg Take 1 U nivers 4 mg tablet 7-12 tablet by ity of 00:00: mouth 3 [place] 00 (three) Medical times Branch daily as needed for Pain (scale 4-6). clotrimazol 2022-0 Yes [id number] Apply to [facility] e-betametha 7-12 area(s) 2 ity of sone 00:00: (two) [place] (LOTRISONE) 00 times Medical cream daily. Branch tiZANidine 2-0 Yes [id number] 4mg Take 1 U nivers 4 mg tablet 7-12 tablet by ity of 00:00: mouth 3 [place] 00 (three) Medical times Branch daily as needed for Pain (scale 4-6). clotrimazol 2-0 Yes [id number] Apply to [facility] e-betametha 7-12 area(s) 2 ity of sone 00:00: (two) [place] (LOTRISONE) 00 times Medical cream daily. Branch tiZANidine 2-0 Yes [id number] 4mg Take 1 U nivers 4 mg tablet 7-12 tablet by ity of 00:00: mouth 3 [place] 00 (three) Medical times Branch daily as needed for Pain (scale 4-6). clotrimazol 2022-0 Yes [id number] Apply to [facility] e-betametha 7-12 area(s) 2 ity of sone 00:00: (two) [place] (LOTRISONE) 00 times Medical cream daily. Branch tiZANidine 2022-0 Yes [id number] 4mg Take 1 U nivers 4 mg tablet 7-12 tablet by ity of 00:00: mouth 3 [place] 00 (three) Medical times Branch daily as needed for Pain (scale 4-6). clotrimazol 2022-0 Yes [id number] Apply to [facility] e-betametha 7-12 area(s) 2 ity of sone 00:00: (two) [place] (LOTRISONE) 00 times Medical cream daily. Branch tiZANidine 2022-0 Yes [id number] 4mg Take 1 [facility] nivers 4 mg tablet 7-12 tablet by ity of 00:00: mouth 3 [place] 00 (three) Medical times Branch daily as needed for Pain (scale 4-6). clotrimazol 2022-0 Yes [id number] Apply to [facility] e-betametha 7-12 area(s) 2 ity of sone 00:00: (two) [place] (LOTRISONE) 00 times Medical cream daily. Branch tiZANidine 2022-0 Yes [id number] 4mg Take 1 [facility] nivers 4 mg tablet 7-12 tablet by ity of 00:00: mouth 3 00 (three) Medical times Branch daily as needed for Pain (scale 4-6). clotrimazol 2-0 Yes [id number] Apply to [facility] e-betametha 7-12 area(s) 2 ity of sone 00:00: (two) [place] (LOTRISONE) 00 times Medical cream daily. Branch tiZANidine 2-0 Yes [id number] 4mg Take 1 [facility] nivers 4 mg tablet 7-12 tablet by ity of 00:00: mouth 3 00 (three) Medical times Branch daily as needed for Pain (scale 4-6). clotrimazol 2022-0 Yes [id number] Apply to [facility] e-betametha 7-12 area(s) 2 ity of sone 00:00: (two) [place] (LOTRISONE) 00 times Medical cream daily. Branch tiZANidine 2022-0 Yes [id number] 4mg Take 1 [facility] nivers 4 mg tablet 7-12 tablet by ity of 00:00: mouth 3 00 (three) Medical times Branch daily as needed for Pain (scale 4-6). clotrimazol 2022-0 Yes [id number] Apply to [facility] e-betametha 7-12 area(s) 2 ity of sone 00:00: (two) [place] (LOTRISONE) 00 times Medical cream daily. Branch tiZANidine 2022-0 Yes [id number] 4mg Take 1 U nivers 4 mg tablet 7-12 tablet by ity of 00:00: mouth 3 [place] 00 (three) Medical times Branch daily as needed for Pain (scale 4-6). clotrimazol 2-0 Yes [id number] Apply to [facility] e-betametha 7-12 area(s) 2 ity of sone 00:00: (two) [place] (LOTRISONE) 00 times Medical cream daily. Branch tiZANidine 2021-0 Yes [id number] 4mg Take 1 U nivers 4 mg tablet 7-12 tablet by ity of 00:00: mouth 3 [place] 00 (three) Medical times Branch daily as needed for Pain (scale 4-6). clotrimazol 2021-0 Yes [id number] Apply to [facility] e-betametha 7-12 area(s) 2 ity of sone 00:00: (two) [place] (LOTRISONE) 00 times Medical cream daily. Branch tiZANidine 2021-0 Yes [id number] 4mg Take 1 U nivers 4 mg tablet 7-12 tablet by ity of 00:00: mouth 3 [place] 00 (three) Medical times Branch daily as needed for Pain (scale 4-6). clotrimazol 2021-0 Yes [id number] Apply to [facility] e-betametha 7-12 area(s) 2 ity of sone 00:00: (two) [place] (LOTRISONE) 00 times Medical cream daily. Branch lisinopriL 2021-0 Yes [id number] 20mg Take 1 U nivers 20 mg 7-08 tablet by ity of tablet 00:00: mouth [place] 00 daily. Medical Branch lisinopriL 2-0 Yes [id number] 20mg Take 1 U nivers 20 mg 7-08 tablet by ity of tablet 00:00: mouth [place] 00 daily. Medical Branch lisinopriL 2022-0 Yes [id number] 20mg Take 1 [facility] nivers 20 mg 7-08 tablet by ity of tablet 00:00: mouth [place] 00 daily. Medical Branch lisinopriL 2-0 Yes [id number] 20mg Take 1 [facility] nivers 20 mg 7-08 tablet by ity of tablet 00:00: mouth [place] 00 daily. Medical Branch lisinopriL 2022-0 Yes [id number] 20mg Take 1 U nivers 20 mg 7-08 tablet by ity of tablet 00:00: mouth [place] 00 daily. Medical Branch lisinopriL 2021-0 Yes [id number] 20mg Take 1 [facility] nivers 20 mg 7-08 tablet by ity of tablet 00:00: mouth [place] 00 daily. Medical Branch lisinopriL 2021-0 Yes [id number] 20mg Take 1 [facility] nivers 20 mg 7-08 tablet by ity of tablet 00:00: mouth [place] 00 daily. Medical Branch lisinopriL 2021-0 Yes [id number] 20mg Take 1 [facility] nivers 20 mg 7-08 tablet by ity of tablet 00:00: mouth [place] 00 daily. Medical Branch lisinopriL 2021-0 Yes [id number] 20mg Take 1 [facility] nivers 20 mg 7-08 tablet by ity of tablet 00:00: mouth [place] 00 daily. Medical Branch lisinopriL 2021-0 Yes [id number] 20mg Take 1 [facility] nivers 20 mg 7-08 tablet by ity of tablet 00:00: mouth [place] 00 daily. Medical Branch lisinopriL 2021-0 Yes [id number] 20mg Take 1 U nivers 20 mg 7-08 tablet by ity of tablet 00:00: mouth [place] 00 daily. Medical Branch lisinopriL 2021-0 Yes [id number] 20mg Take 1 U nivers 20 mg 7-08 tablet by ity of tablet 00:00: mouth [place] 00 daily. Medical Branch lisinopriL 2021-0 Yes [id number] 20mg Take 1 [facility] nivers 20 mg 7-08 tablet by ity of tablet 00:00: mouth [place] 00 daily. Medical Branch lisinopriL 2021-0 Yes [id number] 20mg Take 1 U nivers 20 mg 7-08 tablet by ity of tablet 00:00: mouth [place] 00 daily. Medical Branch lisinopriL 2021-0 Yes [id number] 20mg Take 1 U nivers 20 mg 7-08 tablet by ity of tablet 00:00: mouth [place] 00 daily. Medical Branch lisinopriL 2021-0 Yes [id number] 20mg Take 1 [facility] nivers 20 mg 7-08 tablet by ity of tablet 00:00: mouth [place] 00 daily. Medical Branch lisinopriL 2021-0 Yes [id number] 20mg Take 1 U nivers 20 mg 7-08 tablet by ity of tablet 00:00: mouth [place] 00 daily. Medical Branch lisinopriL 2021-0 Yes [id number] 20mg Take 1 U nivers 20 mg 7-08 tablet by ity of tablet 00:00: mouth [place] 00 daily. Medical Branch lisinopriL 0 Yes [id number] 20mg Take 1 [facility] nivers 20 mg 7-08 tablet by ity of tablet 00:00: mouth [place] 00 daily. Medical Branch lisinopriL 2021-0 2021- No [id number] 20mg Take 1 [facility] 20 mg 7-08 12-29 tablet by ity of tablet 00:00: 00:00 mouth [place] 00 :00 daily. Medical Branch lisinopriL 2021-0 2- No [id number] 20mg Take 1 [facility] 20 mg 7-08 12-29 tablet by ity of tablet 00:00: 00:00 mouth [place] 00 :00 daily. Medical Branch lisinopriL 2021-2021- No [id number] 20mg Take 1 [facility] 20 mg 7- 12-29 tablet by ity of tablet 00:00: 00:00 mouth [place] 00 :00 daily. Medical Branch NOVOLOG MIX Yes [id number] INJECT 20 [facility] 70-30 100 5-31 UNITS ity of unit/mL 00:00: UNDER THE () 00 SKIN 2 Medical injection (TWO) Branch TIMES DAILY BEFORE BREAKFAST AND DINNER. NOVOLOG MIX Yes [id number] INJECT 20 [facility] 70-30 100 5-31 UNITS ity of unit/mL 00:00: UNDER THE () 00 SKIN 2 Medical injection (TWO) Branch TIMES DAILY BEFORE BREAKFAST AND DINNER. NOVOLOG MIX 0 Yes [id number] INJECT 20 [facility] 70-30 100 5-31 UNITS ity of unit/mL 00:00: UNDER THE (-30) 00 SKIN 2 Medical injection (TWO) Branch TIMES DAILY BEFORE BREAKFAST AND DINNER. NOVOLOG MIX 2021- No [id number] INJECT 20 [facility] 70-30 100 5-31 09-14 UNITS ity of unit/mL 00:00: 00:[facility] SK[facility] 2 Medical injection (TWO) Branch TIMES DAILY BEFORE BREAKFAST AND DINNER. aspirin 2022-0 Yes 81mg Take 81 mg Univ ers (ADULT LOW 5-16 by mouth ity o f DOSE 10:43: daily. [place] ASPIRIN) 81 19 Medical mg EC Branch tablet aspirin 2022-0 Yes 81mg Take 81 mg Univ ers (ADULT LOW 5-16 by mouth ity o f DOSE 10:43: daily. [place] ASPIRIN) 81 19 Medical mg EC Branch tablet aspirin 2022-0 Yes 81mg Take 81 mg Univ ers (ADULT LOW 5-16 by mouth ity o f DOSE 10:43: daily. [place] ASPIRIN) 81 19 Medical mg EC Branch tablet aspirin 2022-0 Yes 81mg Take 81 mg Univ ers (ADULT LOW 5-16 by mouth ity o f DOSE 10:43: daily. [place] ASPIRIN) 81 19 Medical mg EC Branch tablet aspirin 2022-0 Yes 81mg Take 81 mg Univ ers (ADULT LOW 5-16 by mouth ity o f DOSE 10:43: daily. [place] ASPIRIN) 81 19 Medical mg EC Branch tablet aspirin 2022-0 Yes 81mg Take 81 mg Univ ers (ADULT LOW 5-16 by mouth ity o f DOSE 10:43: daily. [place] ASPIRIN) 81 19 Medical mg EC Branch tablet aspirin 2022-0 Yes 81mg Take 81 mg Univ ers (ADULT LOW 5-16 by mouth ity o f DOSE 10:43: daily. [place] ASPIRIN) 81 19 Medical mg EC Branch tablet aspirin 2022-0 Yes 81mg Take 81 mg Univ ers (ADULT LOW 5-16 by mouth ity o f DOSE 10:43: daily. [place] ASPIRIN) 81 19 Medical mg EC Branch tablet aspirin 2022-0 Yes 81mg Take 81 mg Univ ers (ADULT LOW 5-16 by mouth ity o f DOSE 10:43: daily. [place] ASPIRIN) 81 19 Medical mg EC Branch tablet aspirin 2022-0 Yes 81mg Take 81 mg Univ ers (ADULT LOW 5-16 by mouth ity o f DOSE 10:43: daily. [place] ASPIRIN) 81 19 Medical mg EC Branch tablet aspirin 2022-0 Yes 81mg Take 81 mg Univ ers (ADULT LOW 5-16 by mouth ity o f DOSE 10:43: daily. [place] ASPIRIN) 81 19 Medical mg EC Branch tablet aspirin 2022-0 Yes 81mg Take 81 mg Univ ers (ADULT LOW 5-16 by mouth ity o f DOSE 10:43: daily. [place] ASPIRIN) 81 19 Medical mg EC Branch tablet aspirin 2022-0 Yes 81mg Take 81 mg Univ ers (ADULT LOW 5-16 by mouth ity o f DOSE 10:43: daily. [place] ASPIRIN) 81 19 Medical mg EC Branch tablet aspirin 2-0 Yes 81mg Take 81 mg Univ ers (ADULT LOW 5-16 by mouth ity o f DOSE 10:43: daily. [place] ASPIRIN) 81 19 Medical mg EC Branch tablet aspirin 2-0 Yes 81mg Take 81 mg Univ ers (ADULT LOW 5-16 by mouth ity o f DOSE 10:43: daily. [place] ASPIRIN) 81 19 Medical mg EC Branch tablet aspirin 2021-0 Yes 81mg Take 81 mg Univ ers (ADULT LOW 5-16 by mouth ity o f DOSE 10:43: daily. [place] ASPIRIN) 81 19 Medical mg EC Branch tablet aspirin 2021-0 Yes 81mg Take 81 mg Univ ers (ADULT LOW 5-16 by mouth ity o f DOSE 10:43: daily. [place] ASPIRIN) 81 19 Medical mg EC Branch tablet aspirin 2-0 Yes 81mg Take 81 mg Univ ers (ADULT LOW 5-16 by mouth ity o f DOSE 10:43: daily. [place] ASPIRIN) 81 19 Medical mg EC Branch tablet aspirin 2021-0 Yes 81mg Take 81 mg Univ ers (ADULT LOW 5-16 by mouth ity o f DOSE 10:43: daily. [place] ASPIRIN) 81 19 Medical mg EC Branch tablet aspirin 2021-0 Yes 81mg Take 81 mg Univ ers (ADULT LOW 5-16 by mouth ity o f DOSE 10:43: daily. [place] ASPIRIN) 81 19 Medical mg EC Branch tablet CANDESARTAN 2021- No [id number] 4mg TAKE 1 [facility] 4 mg tablet 10-23 TABLET BY it y of 00:00: 00:00 MOUTH [place] 00 :00 DAILY. Medical REPLACES Branch LISINOPRIL . metformin 2021- No [id number] 500mg Take 1 [facility] ER 500 mg -06 11- tablet by ity of 24 hr 00:00: 00:00 mouth 2 [place] tablet 00 :00 (two) Medical times Branch daily with meals. fluticasone 2021- No [id number] 2{spray Use 2 [facility] propionate 09-08 } Sprays in ity of 50 00:00: 00:00 each [place] mcg/actuati 00 :00 nostril Medic al on nasal daily. Branch spray guaiFENesin 2021- No [id number] 100mg Take 5 mL Univers 100 mg/5 mL 09-08 by mouth ity of solution 00:00: 00:00 every 4 [place] 00 :00 (four) Medical hours as Branch needed for Cough. CBD-KINGS 2021-0 Yes Apply to Univ ers WITH 3-12 area(s). ity of LIDOCAINE 19:59: [place] TOPICAL 46 Medical Branch CBD-KINGS 2-0 Yes Apply to Univ ers WITH 3-12 area(s). ity of LIDOCAINE 19:59: [place] TOPICAL 46 Medical Branch CBD-KINGS 2-0 Yes Apply to Univ ers WITH 3-12 area(s). ity of LIDOCAINE 19:59: [place] TOPICAL 46 Medical Branch CBD-KINGS 2021-0 Yes Apply to Univ ers WITH 3-12 area(s). ity of LIDOCAINE 19:59: [place] TOPICAL 46 Medical Branch CBD-KINGS 2021-0 Yes Apply to Univ ers WITH 3-12 area(s). ity of LIDOCAINE 19:59: [place] TOPICAL 46 Medical Branch CBD-KINGS 2-0 Yes Apply to Univ ers WITH 3-12 area(s). ity of LIDOCAINE 19:59: [place] TOPICAL 46 Medical Branch CBD-KINGS 2-0 Yes Apply to Univ ers WITH 3-12 area(s). ity of LIDOCAINE 19:59: [place] TOPICAL 46 Medical Branch CBD-KINGS 2-0 Yes Apply to Univ ers WITH 3-12 area(s). ity of LIDOCAINE 19:59: [place] TOPICAL 46 Medical Branch CBD-KINGS 2-0 Yes Apply to Univ ers WITH 3-12 area(s). ity of LIDOCAINE 19:59: [place] TOPICAL 46 Medical Branch CBD-KINGS 2-0 Yes Apply to Univ ers WITH 3-12 area(s). ity of LIDOCAINE 19:59: [place] TOPICAL 46 Medical Branch CBD-KINGS 2-0 Yes Apply to Univ ers WITH 3-12 area(s). ity of LIDOCAINE 19:59: [place] TOPICAL 46 Medical Branch CBD-KINGS 2-0 Yes Apply to Univ ers WITH 3-12 area(s). ity of LIDOCAINE 19:59: [place] TOPICAL 46 Medical Branch CBD-KINGS 2022-0 Yes Apply to Univ ers WITH 3-12 area(s). ity of LIDOCAINE 19:59: [place] TOPICAL Medical Branch [facility] Yes Apply to Univ ers WITH 3-12 area(s). ity of LIDOCAINE 19:59: [place] TOPICAL 46 Medical Branch [facility] Yes Apply to Uni vers WITH 3-12 area(s). ity of LIDOCAINE 19:59: [place] TOPICAL Medical Branch [facility] Yes Apply to Univ ers WITH 3-12 area(s). ity of LIDOCAINE 19:59: [place] TOPICAL [address] [place] [address] Branch [facility] Yes Apply to Univ ers WITH 3-12 area(s). ity of LIDOCAINE 19:59: [place] TOPICAL [address] [place] [address] Branch [facility] Yes Apply to Univ ers WITH 3-12 area(s). ity of LIDOCAINE 19:59: [address] Yes Apply to Univ ers WITH 3-12 area(s). ity of LIDOCAINE 19:59: [place] TOPICAL [address] [place] [address] Yes Apply to Univ ers WITH 3-12 area(s). ity of LIDOCAINE 19:59: [address] apixaban 2021- No [id number] 5mg Take 1 Univer s (ELIQUIS) 5 08-30 tablet by it y of mg tablet 00:00: 00:00 mouth 2 [place] 00 :[place] (two) Medical [facility] Branch daily for 180 days. Indication s: atrial fibrillati on FINASTERIDE 2020-06- No [id number] TAKE 1 [facility] 5 mg tablet 08-04 TABLET BY it y of 00:00: 00:00 MOUTH [place] 00 :00 EVERY DAY Medical Branch PANTOPRAZOL 2020-06 Yes [id number] TAKE 1 [facility] E 40 mg EC 1- [id number] TABLET BY it y of tablet 00:00: MOUTH EVERY DAY Medical Branch PANTOPRAZOL 2020-06 Yes [id number] TAKE 1 [facility] E 40 mg EC - [id number] TABLET BY it y of tablet 00:00: MOUTH EVERY DAY Medical Branch PANTOPRAZOL 2020-06 Yes [id number] TAKE 1 [facility] E 40 mg EC 1- [id number] TABLET BY it y of tablet 00:00: [facility] EVERY DAY Medical Branch PANTOPRAZOL 2020-06 Yes [id number] TAKE 1 [facility] E 40 mg EC 1-23 [id number] TABLET BY it y of tablet 00:00: [facility] EVERY DAY Medical Branch PANTOPRAZOL 2020-06 Yes [id number] TAKE 1 [facility] E 40 mg EC 1-23 [id number] TABLET BY it y of tablet 00:00: [facility] EVERY DAY Medical Branch PANTOPRAZOL 2020-06 Yes [id number] TAKE 1 [facility] E 40 mg EC 1-23 [id number] TABLET BY it y of tablet 00:00: [facility] EVERY DAY Medical Branch PANTOPRAZOL 2020-06 Yes [id number] TAKE 1 [facility] E 40 mg EC 1-23 [id number] TABLET BY it y of tablet 00:00: [facility] EVERY DAY Medical Branch PANTOPRAZOL 2020-06 Yes [id number] TAKE 1 [facility] E 40 mg EC 1-23 [id number] TABLET BY it y of tablet 00:00: [facility] EVERY DAY Medical Branch PANTOPRAZOL 2020-06 Yes [id number] TAKE 1 [facility] E 40 mg EC 1-23 [id number] TABLET BY it y of tablet 00:00: [facility] EVERY DAY Medical Branch PANTOPRAZOL 2020-06 Yes [id number] TAKE 1 [facility] E 40 mg EC 1-23 [id number] TABLET BY it y of tablet 00:00: [facility] EVERY DAY Medical Branch PANTOPRAZOL 2020-06 Yes [id number] TAKE 1 [facility] E 40 mg EC 1-23 [id number] TABLET BY it y of tablet 00:00: [facility] EVERY DAY Medical Branch PANTOPRAZOL 2020-06 Yes [id number] TAKE 1 [facility] E 40 mg EC 1-23 [id number] TABLET BY it y of tablet 00:00: [facility] EVERY DAY Medical Branch PANTOPRAZOL 2020-06 Yes [id number] TAKE 1 [facility] E 40 mg EC 1-23 [id number] TABLET BY it y of tablet 00:00: [facility] EVERY DAY Medical Branch PANTOPRAZOL 2020-06 Yes [id number] TAKE 1 [facility] E 40 mg EC 1-23 [id number] TABLET BY it y of tablet 00:00: [facility] EVERY DAY Medical Branch PANTOPRAZOL 2020-06 Yes [id number] TAKE 1 [facility] E 40 mg EC 1-23 [id number] TABLET BY it y of tablet 00:00: [facility] EVERY DAY Medical Branch PANTOPRAZOL 2020-06 Yes [id number] TAKE 1 [facility] E 40 mg EC 1-23 [id number] TABLET BY it y of tablet 00:00: [facility] EVERY DAY Medical Branch PANTOPRAZOL 2020-06 Yes [id number] TAKE 1 [facility] E 40 mg EC 1-23 [id number] TABLET BY it y of tablet 00:00: [facility] EVERY DAY Medical Branch PANTOPRAZOL 2020-06 Yes [id number] TAKE 1 [facility] E 40 mg EC 1-23 [id number] TABLET BY it y of tablet 00:00: [facility] EVERY DAY Medical Branch PANTOPRAZOL 2020-06 Yes [id number] TAKE 1 [facility] E 40 mg EC 1-23 [id number] TABLET BY it y of tablet 00:00: [facility] EVERY DAY Medical Branch PANTOPRAZOL 2020-06 Yes [id number] TAKE 1 [facility] E 40 mg EC 1-23 [id number] TABLET BY it y of tablet 00:00: [facility] EVERY DAY Medical Branch PANTOPRAZOL 2020-06 Yes [id number] TAKE 1 [facility] E 40 mg EC 1-23 [id number] TABLET BY it y of tablet 00:00: [facility] EVERY DAY Medical Branch PANTOPRAZOL 2020-06 Yes [id number] TAKE 1 [facility] E 40 mg EC 1-23 [id number] TABLET BY it y of tablet 00:00: [facility] EVERY DAY Medical Branch PANTOPRAZOL 2020-06 Yes [id number] TAKE 1 [facility] E 40 mg EC 1-23 [id number] TABLET BY it y of tablet 00:00: [facility] EVERY DAY Medical Branch PANTOPRAZOL 2020-06 Yes [id number] TAKE 1 [facility] E 40 mg EC 1-23 [id number] TABLET BY it y of tablet 00:00: [facility] EVERY DAY Medical Branch PANTOPRAZOL 2020-06 Yes [id number] TAKE 1 [facility] E 40 mg EC 1-23 [id number] TABLET BY it y of tablet 00:00: [facility] EVERY DAY Medical Branch PANTOPRAZOL 2020-06 Yes [id number] TAKE 1 [facility] E 40 mg EC 1-23 [id number] TABLET BY it y of tablet 00:00: [facility] EVERY DAY Medical Branch PANTOPRAZOL 2020-06 Yes [id number] TAKE 1 [facility] E 40 mg EC 1-23 [id number] TABLET BY it y of tablet 00:00: [facility] EVERY DAY Medical Branch PANTOPRAZOL 2020-06 Yes [id number] TAKE 1 [facility] E 40 mg EC 1-23 [id number] TABLET BY it y of tablet 00:00: MOUTH [place] 00 EVERY DAY Medical Branch PANTOPRAZOL 2020-06 Yes [id number] TAKE 1 [facility] E 40 mg EC 1-23 [id number] TABLET BY it y of tablet 00:00: MOUTH [place] 00 EVERY DAY Medical Branch escitalopra 2020-06 2022- No [id number] 10mg Take 1 Univers m oxalate 115 07-29 tablet by ity of 10 mg 00:00: 00:00 mouth [place] tablet 00 :00 daily. Medical Branch Insulin Yes [id number] Use as Univ ers [place], 9-20 directed ity of Disposable, 00:00: twice [place] (PEN 00 daily to Medical NEEDLE) 32 inject Branch gauge x insulin; " Ndle ICD-10 E11.65 Insulin Yes [id number] Use as Univ ers [place], 9-20 directed ity of Disposable, 00:00: twice [place] (PEN 00 daily to Medical NEEDLE) 32 inject Branch gauge x insulin; " Ndle ICD-10 E11.65 Insulin Yes [id number] Use as Univ ers [place], 9-20 directed ity of Disposable, 00:00: twice [place] (PEN 00 daily to Medical NEEDLE) 32 inject Branch gauge x insulin; " Ndle ICD-10 E11.65 Insulin Yes [id number] Use as Univ ers [place], 9-20 directed ity of Disposable, 00:00: twice [place] (PEN 00 daily to Medical NEEDLE) 32 inject Branch gauge x insulin; " Ndle ICD-10 E11.65 Insulin Yes [id number] Use as Univ ers [place], 9-20 directed ity of Disposable, 00:00: twice [place] (PEN 00 daily to Medical NEEDLE) 32 inject Branch gauge x insulin; " Ndle ICD-10 E11.65 Insulin Yes [id number] Use as Univ ers [place], 9-20 directed ity of Disposable, 00:00: twice [place] (PEN 00 daily to Medical NEEDLE) 32 inject Branch gauge x insulin; " Ndle ICD-10 E11.65 Insulin Yes [id number] Use as Univ ers [place], 9-20 directed ity of Disposable, 00:00: twice [place] (PEN 00 daily to Medical NEEDLE) 32 inject Branch gauge x insulin; 5" Ndle ICD-10 E11.65 Insulin 2020-0 Yes [id number] Use as Univ ers [place], 9-20 directed ity of Disposable, 00:00: twice [place] (PEN 00 daily to Medical NEEDLE) 32 inject Branch gauge x insulin; 5/32" Ndle ICD-10 E11.65 Insulin 2020-0 Yes [id number] Use as Univ ers [place], 9-20 directed ity of Disposable, 00:00: twice [place] (PEN 00 daily to Medical NEEDLE) 32 inject Branch gauge x insulin; 5/" Ndle ICD-10 E11.65 Insulin 2020-0 Yes [id number] Use as Univ ers [place], 9-20 directed ity of Disposable, 00:00: twice [place] (PEN 00 daily to Medical NEEDLE) 32 inject Branch gauge x insulin; " Ndle ICD-10 E11.65 Insulin 0 Yes [id number] Use as [facility] ers [place], 9-20 directed ity of Disposable, 00:00: twice [place] (PEN 00 daily to Medical NEEDLE) 32 inject Branch gauge x insulin; 5/" Ndle ICD-10 E11.65 Insulin 2020-0 Yes [id number] Use as [facility] [place], 9-20 directed ity of Disposable, 00:00: twice [place] (PEN 00 daily to Medical NEEDLE) 32 inject Branch gauge x insulin; 5" Ndle ICD-10 E11.65 Insulin 2020-0 Yes [id number] Use as [facility] ers [place], 9-20 directed ity of Disposable, 00:00: twice [place] (PEN 00 daily to Medical NEEDLE) 32 inject Branch gauge x insulin; 5/" Ndle ICD-10 E11.65 Insulin 2020-0 Yes [id number] Use as Univ ers [place], 9-20 directed ity of Disposable, 00:00: twice [place] (PEN 00 daily to Medical NEEDLE) 32 inject Branch gauge x insulin; 5/32" Ndle ICD-10 E11.65 Insulin 2020-0 Yes [id number] Use as Univ ers [place], 9-20 directed ity of Disposable, 00:00: twice [place] (PEN 00 daily to Medical NEEDLE) 32 inject Branch gauge x insulin; 5/32" Ndle ICD-10 E11.65 Insulin 2020-0 Yes [id number] Use as Univ ers [place], 9-20 directed ity of Disposable, 00:00: twice [place] (PEN 00 daily to Medical NEEDLE) 32 inject Branch gauge x insulin; 5/" Ndle ICD-10 E11.65 Insulin 2020-0 Yes [id number] Use as Univ ers [place], 9-20 directed ity of Disposable, 00:00: twice [place] (PEN 00 daily to Medical NEEDLE) 32 inject Branch gauge x insulin; 5" Ndle ICD-10 E11.65 Insulin 2020-0 Yes [id number] Use as Univ ers [place], 9-20 directed ity of Disposable, 00:00: twice [place] (PEN 00 daily to Medical NEEDLE) 32 inject Branch gauge x insulin; " Ndle ICD-10 E11.65 Insulin 2020-0 Yes [id number] Use as Univ ers [place], 9-20 directed ity of Disposable, 00:00: twice [place] (PEN 00 daily to Medical NEEDLE) 32 inject Branch gauge x insulin; " Ndle ICD-10 E11.65 Insulin 2020-0 Yes [id number] Use as [facility] ers [place], 9-20 directed ity of Disposable, 00:00: twice [place] (PEN 00 daily to Medical NEEDLE) 32 inject Branch gauge x insulin; " Ndle ICD-10 E11.65 Insulin 2020-0 Yes [id number] Use as Univ ers [place], 9-20 directed ity of Disposable, 00:00: twice [place] (PEN 00 daily to Medical NEEDLE) 32 inject Branch gauge x insulin; " Ndle ICD-10 E11.65 Insulin 2020-0 Yes [id number] Use as Univ ers [place], 9-20 directed ity of Disposable, 00:00: twice [place] (PEN 00 daily to Medical NEEDLE) 32 inject Branch gauge x insulin; /" Ndle ICD-10 E11.65 Insulin 2020-0 Yes [id number] Use as [facility] [place], 9-20 directed ity of Disposable, 00:00: twice [place] (PEN 00 daily to Medical NEEDLE) 32 inject Branch gauge x insulin; /32" Ndle ICD-10 E11.65 Insulin 2020-0 Yes [id number] Use as [facility] [place], 9-20 directed ity of Disposable, 00:00: twice [place] (PEN 00 daily to Medical NEEDLE) 32 inject Branch gauge x insulin; /" Ndle ICD-10 E11.65 Insulin Yes [id number] Use as [facility] [place], 9-20 directed ity of Disposable, 00:00: twice [place] (PEN 00 daily to Medical NEEDLE) 32 inject Branch gauge x insulin; 5/32" Ndle ICD-10 E11.65 Insulin Yes [id number] Use as [facility] [place], 9-20 directed ity of Disposable, 00:00: twice [place] (PEN 00 daily to Medical NEEDLE) 32 inject Branch gauge x insulin; 5/32" Ndle ICD-10 E11.65 Insulin Yes [id number] Use as [facility] [place], 9-20 directed ity of Disposable, 00:00: twice [place] (PEN 00 daily to Medical NEEDLE) 32 inject Branch gauge x insulin; 5/32" Ndle ICD-10 E11.65 Insulin Yes [id number] Use as [facility] [place], 9-20 directed ity of Disposable, 00:00: twice [place] (PEN 00 daily to Medical NEEDLE) 32 inject Branch gauge x insulin; 5/32" Ndle ICD-10 E11.65 Insulin Yes [id number] Use as [facility] [place], 9-20 directed ity of Disposable, 00:00: twice [place] (PEN 00 daily to Medical NEEDLE) 32 inject Branch gauge x insulin; 5/" Ndle ICD-10 E11.65 blood sugar 2021- No [id number] USE TWICE Univers diagnostic 03-10 08-04 DAILY FOR ity of (ASCENSIA 00:00: 00:00 BLOOD [place] MICROFILL) 00 :00 GLUCOSE Medica l strip MONITORING Branch FOR ICD E11.9 insulin 2021- No [id number] 20U inject 20 Univers aspart 03-10 05-31 Units ity of protamine-i 00:00: 00:00 under the [place] nsulin 00 :00 skin 2 Medical aspart (two) Branch (NOVOLOG times MIX 70-30 daily U-100 before INSULN) 100 breakfast unit/mL and (70-30) dinner. injection Immunizations Ordered Filled Immunization Date Status Comments [facility] e Immunization Name Name Influenza High Dose 2020-04-19 Completed [facility] [place] 00:00:00 [facility] Influenza High Dose 2020-04-19 Completed [facility] [place] 00:00:00 [facility] Influenza High Dose 2020-04-19 Completed [facility] [place] 00:00:00 [facility] Influenza High Dose 2020-04-19 Completed [facility] [place] 00:00:00 [facility] Influenza High Dose 2020-04-19 Completed [facility] [place] 00:00:00 [place] [facility] Influenza High Dose 2020-04-19 Completed [facility] [place] 00:00:00 [facility] Influenza High Dose 2020-04-19 Completed [facility] [place] 00:00:00 [facility] Influenza High Dose 2020-04-19 Completed [facility] [place] 00:00:00 [facility] Influenza High Dose 2020-04-19 Completed [facility] [place] 00:00:00 [facility] Influenza High Dose 2020-04-19 Completed [facility] [place] 00:00:00 [facility] Influenza High Dose 2020-04-19 Completed [facility] [place] 00:00:00 [facility] Influenza High Dose 2020-04-19 Completed [facility] [place] 00:00:00 [facility] Influenza High Dose 2020-04-19 Completed [facility] [place] 00:00:00 [facility] Influenza High Dose 2020-04-19 Completed [facility] [place] 00:00:00 [facility] Influenza High Dose 2020-04-19 Completed [facility] [place] 00:00:00 [facility] Influenza High Dose 2020-04-19 Completed [facility] [place] 00:00:00 [facility] Influenza High Dose 2020-04-19 Completed [facility]ive [facility] [place] 00:00:00 [facility] Influenza High Dose 2020-04-19 Completed [facility]ive [facility] [place] 00:00:00 [facility] Influenza High Dose 2020-04-19 Completed [facility]ive [facility] [place] 00:00:00 [facility] Influenza High Dose 2020-04-19 Completed [facility]ive [facility] [place] 00:00:00 [facility] Influenza High Dose 2020-04-19 Completed [facility] [place] 00:00:00 [facility] Influenza High Dose 2020-04-19 Completed [facility]ive [facility] [place] 00:00:00 [facility] Influenza High Dose 2020-04-19 Completed [facility]ive [facility] [place] 00:00:00 [facility] Influenza High Dose 2020-04-19 Completed [facility]ive [facility] [place] 00:00:00 [place] [facility] Influenza High Dose 2020-04-19 Completed [facility]ive [facility] [place] 00:00:00 [facility] Influenza High Dose 2020-04-19 Completed [facility]ive [facility] [place] 00:00:00 [facility] Influenza High Dose 2020-04-19 Completed [facility]ive [facility] [place] 00:00:00 [facility] Influenza High Dose 2020-04-19 Completed [facility] [place] 00:00:00 [facility] Influenza High Dose 2020-04-19 Completed [facility]ive [facility] [place] 00:00:00 [facility] Influenza High Dose 2019-04-11 Completed Unive rsity of 00:00:00 [facility] Influenza High Dose 2019-04-11 Completed Unive rsity of 00:00:00 [facility] Influenza High Dose 2019-04-11 Completed Unive rsity of 00:00:00 [facility] Influenza High Dose 2019-04-11 Completed Unive rsity of 00:00:00 [facility] Influenza High Dose 2019-04-11 Completed Unive rsity of 00:00:00 [facility] Influenza High Dose 2019-04-11 Completed Unive rsity of 00:00:00 [facility] Influenza High Dose 2019-04-11 Completed Unive rsity of 00:00:00 [facility] Influenza High Dose 2019-04-11 Completed Unive rsity of 00:00:00 [facility] Influenza High Dose 2019-04-11 Completed Unive rsity of 00:00:00 [facility] Influenza High Dose 2019-04-11 Completed Unive rsity of 00:00:00 [facility] Influenza High Dose 2019-04-11 Completed Unive rsity of 00:00:00 [facility] Influenza High Dose 2019-04-11 Completed Unive rsity of 00:00:00 [facility] Influenza High Dose 2019-04-11 Completed Unive rsity of 00:00:00 [facility] Influenza High Dose 2019-04-11 Completed Unive rsity of 00:00:00 [facility] Influenza High Dose 2019-04-11 Completed Unive rsity of 00:00:00 [facility] Influenza High Dose 2019-04-11 Completed Unive rsity of 00:00:00 [facility] Influenza High Dose 2019-04-11 Completed Unive rsity of 00:00:00 [facility] Influenza High Dose 2019-04-11 Completed Unive rsity of 00:00:00 [facility] Influenza High Dose 2019-04-11 Completed Unive rsity of 00:00:00 [facility] Influenza High Dose 2019-04-11 Completed Unive rsity of 00:00:00 [facility] Influenza High Dose 2019-04-11 Completed Unive rsity of 00:00:00 [facility] Influenza High Dose 2019-04-11 Completed Unive rsity of 00:00:00 [facility] Influenza High Dose 2019-04-11 Completed Unive rsity of 00:00:00 [facility] Influenza High Dose 2019-04-11 Completed Unive rsity of 00:00:00 [facility] Influenza High Dose 2019-04-11 Completed Unive rsity of 00:00:00 [facility] Influenza High Dose 2019-04-11 Completed Unive rsity of 00:00:00 [facility] Influenza High Dose 2019-04-11 Completed Unive rsity of 00:00:00 [facility] Influenza High Dose 2019-04-11 Completed Unive rsity of 00:00:00 [facility] Influenza High Dose 2019-04-11 Completed Unive rsity of 00:00:00 [facility] Influenza High Dose 2018-03-01 Completed Unive rsity of 00:00:00 [facility] Influenza High Dose 2018-03-01 Completed Unive rsity of 00:00:00 [facility] Influenza High Dose 2018-03-01 Completed Unive rsity of 00:00:00 [facility] Influenza High Dose 2018-03-01 Completed Unive rsity of 00:00:00 [facility] Influenza High Dose 2018-03-01 Completed Unive rsity of 00:00:00 [facility] Influenza High Dose 2018-03-01 Completed Unive rsity of 00:00:00 [facility] Influenza High Dose 2018-03-01 Completed Unive rsity of 00:00:00 [facility] Influenza High Dose 2018-03-01 Completed Unive rsity of 00:00:00 [facility] Influenza High Dose 2018-03-01 Completed Unive rsity of 00:00:00 [facility] Influenza High Dose 2018-03-01 Completed Unive rsity of 00:00:00 [facility] Influenza High Dose 2018-03-01 Completed Unive rsity of 00:00:00 [facility] Influenza High Dose 2018-03-01 Completed Unive rsity of 00:00:00 [facility] Influenza High Dose 2018-03-01 Completed Unive rsity of 00:00:00 [facility] Influenza High Dose 2018-03-01 Completed Unive rsity of 00:00:00 [place] [facility] Influenza High Dose 2018-03-01 Completed Unive rsity of 00:00:00 [facility] Influenza High Dose 2018-03-01 Completed Unive rsity of 00:00:00 [place] [facility] Influenza High Dose 2018-03-01 Completed Unive rsity of 00:00:00 [place] [facility] Influenza High Dose 2018-03-01 Completed Unive rsity of 00:00:00 [facility] Influenza High Dose 2018-03-01 Completed Unive rsity of 00:00:00 [facility] Influenza High Dose 2018-03-01 Completed Unive rsity of 00:00:00 [facility] Influenza High Dose 2018-03-01 Completed Unive rsity of 00:00:00 [facility] Influenza High Dose 2018-03-01 Completed Unive rsity of 00:00:00 [facility] Influenza High Dose 2018-03-01 Completed Unive rsity of 00:00:00 [facility] Influenza High Dose 2018-03-01 Completed Unive rsity of 00:00:00 [facility] Influenza High Dose 2018-03-01 Completed Unive rsity of 00:00:00 [facility] Branch Influenza High Dose 2018-03-01 Completed Unive rsity of 00:00:00 [facility] Influenza High Dose 2018-03-01 Completed Unive rsity of 00:00:00 [facility] Influenza High Dose 2018-03-01 Completed Unive rsity of 00:00:00 [facility] Branch Influenza High Dose 2018-03-01 Completed Unive rsity of 00:00:00 [facility] Influenza Virus 2017-03-21 Completed Universit y of Vaccine 00:00:00 [facility] Influenza Virus 2017-03-21 Completed Universit y of Vaccine 00:00:00 [facility] Influenza Virus 2017-03-21 Completed Universit y of Vaccine 00:00:00 [facility] Influenza Virus 2017-03-21 Completed Universit y of Vaccine 00:00:00 [facility] Influenza Virus 2017-03-21 Completed Universit y of Vaccine 00:00:00 [facility] Influenza Virus 2017-03-21 Completed Universit y of Vaccine 00:00:00 [facility] Influenza Virus 2017-03-21 Completed Universit y of Vaccine 00:00:00 [facility] Influenza Virus 2017-03-21 Completed Universit y of Vaccine 00:00:00 [facility] Influenza Virus 2017-03-21 Completed Universit y of Vaccine 00:00:00 [facility] Influenza Virus 2017-03-21 Completed Universit y of Vaccine 00:00:00 [facility] Influenza Virus 2017-03-21 Completed Universit y of Vaccine 00:00:00 [facility] Influenza Virus 2017-03-21 Completed Universit y of Vaccine 00:00:00 [facility] Influenza Virus 2017-03-21 Completed Universit y of Vaccine 00:00:00 [facility] Influenza Virus 2017-03-21 Completed Universit y of Vaccine 00:00:00 [facility] Influenza Virus 2017-03-21 Completed Universit y of Vaccine 00:00:00 [facility] Influenza Virus 2017-03-21 Completed Universit y of Vaccine 00:00:00 [facility] Influenza Virus 2017-03-21 Completed Universit y of Vaccine 00:00:00 [facility] Influenza Virus 2017-03-21 Completed Universit y of Vaccine 00:00:00 [facility] Influenza Virus 2017-03-21 Completed Universit y of Vaccine 00:00:00 [facility] Influenza Virus 2017-03-21 Completed Universit y of Vaccine 00:00:00 [facility] Influenza Virus 2017-03-21 Completed Universit y of Vaccine 00:00:00 [facility] Influenza Virus 2017-03-21 Completed Universit y of Vaccine 00:00:00 [facility] Influenza Virus 2017-03-21 Completed Universit y of Vaccine 00:00:00 [facility] Influenza Virus 2017-03-21 Completed Universit y of Vaccine 00:00:00 [facility] Influenza Virus 2017-03-21 Completed Universit y of Vaccine 00:00:00 [facility] Influenza Virus 2017-03-21 Completed Universit y of Vaccine 00:00:00 [facility] Influenza Virus 2017-03-21 Completed Universit y of Vaccine 00:00:00 [facility] Influenza Virus 2017-03-21 Completed Universit y of Vaccine 00:00:00 [facility] Influenza Virus 2017-03-21 Completed Universit y of Vaccine 00:00:00 [facility] TDAP 2015-10-03 Completed University of 00:00:00 [facility] TDAP 2015-10-03 Completed University of 00:00:00 [facility] TDAP 2015-10-03 Completed University of 00:00:00 [facility] TDAP 2015-10-03 Completed University of 00:00:00 [facility] TDAP 2015-10-03 Completed University of 00:00:00 [facility] TDAP 2015-10-03 Completed University of 00:00:00 [facility] TDAP 2015-10-03 Completed University of 00:00:00 [place] [facility] TDAP 2015-10-03 Completed University of 00:00:00 [facility] TDAP 2015-10-03 Completed University of 00:00:00 [facility] TDAP 2015-10-03 Completed University of 00:00:00 [facility] TDAP 2015-10-03 Completed University of 00:00:00 [facility] TDAP 2015-10-03 Completed University of 00:00:00 [facility] TDAP 2015-10-03 Completed University of 00:00:00 [place] [facility] TDAP 2015-10-03 Completed University of 00:00:00 [facility] TDAP 2015-10-03 Completed University of 00:00:00 [facility] TDAP 2015-10-03 Completed University of 00:00:00 [facility] TDAP 2015-10-03 Completed University of 00:00:00 [facility] TDAP 2015-10-03 Completed University of 00:00:00 [facility] TDAP 2015-10-03 Completed University of 00:00:00 [facility] TDAP 2015-10-03 Completed University of 00:00:00 [facility] TDAP 2015-10-03 Completed University of 00:00:00 [facility] TDAP 2015-10-03 Completed University of 00:00:00 [facility] TDAP 2015-10-03 Completed University of 00:00:00 [facility] TDAP 2015-10-03 Completed University of 00:00:00 [facility] TDAP 2015-10-03 Completed University of 00:00:00 [facility] TDAP 2015-10-03 Completed University of 00:00:00 [facility] TDAP 2015-10-03 Completed University of 00:00:00 [facility] TDAP 2015-10-03 Completed University of 00:00:00 [facility] TDAP 2015-10-03 Completed University of 00:00:00 [place] [facility] Pneumococcal 13 2012-12-07 Completed Universit y of Conjugate, PCV13 00:00:00 [place] [facility] (Prevnar 13) Branch Pneumococcal 13 2012-12-07 Completed Universit y of Conjugate, PCV13 00:00:00 [place] [facility] (Prevnar 13) Branch Pneumococcal 13 2012-12-07 Completed Universit y of Conjugate, PCV13 00:00:00 [place] [facility] (Prevnar 13) Branch Pneumococcal 13 2012-12-07 Completed Universit y of Conjugate, PCV13 00:00:00 [place] [facility] (Prevnar 13) Branch Pneumococcal 13 2012-12-07 Completed Universit y of Conjugate, PCV13 00:00:00 [place] [facility] (Prevnar 13) Branch Pneumococcal 13 2012-12-07 Completed Universit y of Conjugate, PCV13 00:00:00 [place] [facility] (Prevnar 13) Branch Pneumococcal 13 2012-12-07 Completed Universit y of Conjugate, PCV13 00:00:00 [place] [facility] (Prevnar 13) Branch Pneumococcal 13 2012-12-07 Completed Universit y of Conjugate, PCV13 00:00:00 [place] [facility] (Prevnar 13) Branch Pneumococcal 13 2012-12-07 Completed Universit y of Conjugate, PCV13 00:00:00 [place] [facility] (Prevnar 13) Branch Pneumococcal 13 2012-12-07 Completed Universit y of Conjugate, PCV13 00:00:00 [place] [facility] (Prevnar 13) Branch Pneumococcal 13 2012-12-07 Completed Universit y of Conjugate, PCV13 00:00:00 [place] [facility] (Prevnar 13) Branch Pneumococcal 13 2012-12-07 Completed Universit y of Conjugate, PCV13 00:00:00 [place] [facility] (Prevnar 13) Branch Pneumococcal 13 2012-12-07 Completed Universit y of Conjugate, PCV13 00:00:00 [place] [facility] (Prevnar 13) Branch Pneumococcal 13 2012-12-07 Completed Universit y of Conjugate, PCV13 00:00:00 [place] [facility] (Prevnar 13) Branch Pneumococcal 13 2012-12-07 Completed Universit y of Conjugate, PCV13 00:00:00 [place] [facility] (Prevnar 13) Branch Pneumococcal 13 2012-12-07 Completed Universit y of Conjugate, PCV13 00:00:00 [place] [facility] (Prevnar 13) Branch Pneumococcal 13 2012-12-07 Completed Universit y of Conjugate, PCV13 00:00:00 [place] [facility] (Prevnar 13) Branch Pneumococcal 13 2012-12-07 Completed Universit y of Conjugate, PCV13 00:00:00 [place] [facility] (Prevnar 13) Branch Pneumococcal 13 2012-12-07 Completed Universit y of Conjugate, PCV13 00:00:00 [place] [facility] (Prevnar 13) Branch Pneumococcal 13 2012-12-07 Completed Universit y of Conjugate, PCV13 00:00:00 [place] [facility] (Prevnar 13) Branch Pneumococcal 13 2012-12-07 Completed Universit y of Conjugate, PCV13 00:00:00 [place] [facility] (Prevnar 13) Branch Pneumococcal 13 2012-12-07 Completed Universit y of Conjugate, PCV13 00:00:00 [place] [facility] (Prevnar 13) Branch Pneumococcal 13 2012-12-07 Completed Universit y of Conjugate, PCV13 00:00:00 [place] [facility] (Prevnar 13) Branch Pneumococcal 13 2012-12-07 Completed Universit y of Conjugate, PCV13 00:00:00 [place] [facility] (Prevnar 13) Branch Pneumococcal 13 2012-12-07 Completed Universit y of Conjugate, PCV13 00:00:00 [place] [facility] (Prevnar 13) Branch Pneumococcal 13 2012-12-07 Completed Universit y of Conjugate, PCV13 00:00:00 [place] [facility] (Prevnar 13) Branch Pneumococcal 13 2012-12-07 Completed Universit y of Conjugate, PCV13 00:00:00 [place] [facility] (Prevnar 13) Branch Pneumococcal 13 2012-12-07 Completed Universit y of Conjugate, PCV13 00:00:00 [place] [facility] (Prevnar 13) Branch Pneumococcal 13 2012-12-07 Completed Universit y of Conjugate, PCV13 00:00:00 [place] [facility] (Prevnar 13) Branch Pneumococcal 2012-07-26 Completed University o f [...] 00:00:00 [place] [facility] PPSV23 (PNEUMOVAX) Branch Vital Signs Vital Name Observation Time Observation Value Comments Source Systolic blood 2022-07-27 17:40:00 120 mm[Hg] Univer sity pressure [facility] Diastolic blood 2022-07-27 17:40:00 71 mm[Hg] Unive [facility] Heart rate 2022-07-27 17:40:00 83 /min [facility] Respiratory rate 2022-07-27 17:40:00 19 /min [facility] Oxygen saturation in 2022-07-27 17:40:00 97 /min [facility] Arterial blood by [facility] Pulse oximetry Branch Body temperature 2022-07-27 14:43:00 37.61 [place] [facility] Body weight 2022-07-27 14:43:00 83.915 kg [facility] BMI 2022-07-27 14:43:00 26.54 kg/m2 [facility] [place] [facility] Systolic blood 2022-06-18 17:46:00 148 mm[Hg] Univer sity of pressure [facility] Diastolic blood 2022-06-18 17:46:00 60 mm[Hg] Unive rsity of pressure [place] [facility] Respiratory rate 2022-06-18 17:46:00 20 /min [facility] ers[facility] [place] [facility] Oxygen saturation in 2022-06-18 17:46:00 98 /min University of Arterial blood by [place] [facility] Pulse oximetry Branch Body weight 2022-06-18 13:00:00 83.915 kg [facility] [place] [facility] BMI 2022-06-18 13:00:00 26.54 kg/m2 [facility] [place] [facility] Systolic blood 2022-06-18 16:55:00 121 mm[Hg] Univer sity of pressure [place] [facility] Diastolic blood 2022-06-18 16:55:00 58 mm[Hg] Unive rsity of pressure [place] [facility] Respiratory rate 2022-06-18 16:55:00 16 /min [facility] ers[facility] [place] [facility] Oxygen saturation in 2022-06-18 16:55:00 98 /min University of Arterial blood by [place] [facility] Pulse oximetry Branch Body weight 2022-06-18 13:00:00 83.915 kg [facility] [place] [facility] BMI 2022-06-18 13:00:00 26.54 kg/m2 [facility] [place] [facility] Systolic blood 2022-06-01 16:58:00 126 mm[Hg] Univer sity of pressure [place] [facility] Diastolic blood 2022-06-01 16:58:00 99 mm[Hg] Unive rsity of pressure [place] [facility] Heart rate 2022-06-01 16:58:00 71 /min [facility] [place] [facility] Body temperature 2022-06-01 16:58:00 36.78 [place] [facility] [place] [facility] Respiratory rate 2022-06-01 16:58:00 20 /min [facility] [place] [facility] Body weight 2022-06-01 16:58:00 83.915 kg [facility] [place] [facility] BMI 2022-06-01 16:58:00 26.54 kg/m2 [facility] [place] [facility] Oxygen saturation in 2022-06-01 16:58:00 99 /min [facility] of Arterial blood by [place] [facility] Pulse oximetry Branch Systolic blood 2022-05-19 22:18:00 129 mm[Hg] Univer sity of pressure [facility] Diastolic blood 2022-05-19 22:18:00 74 mm[Hg] Unive rsity of pressure [facility] Heart rate 2022-05-19 22:18:00 76 /min [facility] [place] [facility] Body temperature 2022-05-19 22:18:00 36.89 [place] [facility] [place] [facility] Respiratory rate 2022-05-19 22:18:00 18 /min [facility] [place] [facility] Body height 2022-05-19 22:18:00 177.8 cm [facility] [place] [facility] Body weight 2022-05-19 22:18:00 84.732 kg [facility] [place] [facility] BMI 2022-05-19 22:18:00 26.80 kg/m2 [facility] [place] [facility] Oxygen saturation in 2022-05-19 22:18:00 98 /min University of Arterial blood by [facility] monika Pulse oximetry Branch Systolic blood 2022-03-30 18:13:00 135 mm[Hg] Univer sity of pressure [facility] Diastolic blood 2022-03-30 18:13:00 67 mm[Hg] Unive rsity of pressure [facility] Heart rate 2022-03-30 18:11:00 66 /min [facility] Body temperature 2022-03-30 18:11:00 36.56 [place] [facility] Respiratory rate 2022-03-30 18:11:00 18 /min [facility] Body height 2022-03-30 18:11:00 177.8 cm [facility] [place] [facility] Body weight 2022-03-30 18:11:00 86.818 kg [facility] BMI 2022-03-30 18:11:00 27.46 kg/m2 [facility] Oxygen saturation in 2022-03-30 18:11:00 98 /min [facility] Arterial blood by [place] [facility] Pulse oximetry Branch Body weight 2022-03-18 15:50:00 86.682 kg [facility] BMI 2022-03-18 15:50:00 27.42 kg/m2 [facility] Body weight 2022-02-25 19:14:00 85.276 kg [facility] BMI 2022-02-25 19:14:00 26.98 kg/m2 [facility] Systolic blood 2022-02-02 13:30:00 132 mm[Hg] Univer sity of pressure [facility] Diastolic blood 2022-02-02 13:30:00 80 mm[Hg] Unive rsity of pressure [facility] Heart rate 2022-02-02 13:30:00 60 /min [facility] Respiratory rate 2022-02-02 13:30:00 16 /min Univ ersity of [facility] Body height 2022-02-02 13:30:00 177.8 cm [facility] Body weight 2022-02-02 13:30:00 85.73 kg [facility] BMI 2022-02-02 13:30:00 27.12 kg/m2 [facility] Oxygen saturation in 2022-02-02 13:30:00 99 /min [facility] of Arterial blood by [place] [employer] monika Pulse oximetry Branch Systolic blood 2021-10-29 21:34:00 139 mm[Hg] [facility] Diastolic blood 2021-10-29 21:34:00 76 mm[Hg] Unive rsity of [facility] [place] Heart rate 2021-10-29 21:34:00 66 /min [facility] Respiratory rate 2021-10-29 21:34:00 18 /min [facility] Body height 2021-10-29 21:34:00 177.8 cm [facility] Body weight 2021-10-29 21:34:00 86.909 kg [facility] BMI 2021-10-29 21:34:00 27.49 kg/m2 [facility] Oxygen saturation in 2021-10-29 21:34:00 98 /min [facility] of Arterial blood by [employer] monika Pulse oximetry Branch Procedures Procedure Date / Time Performing Clinician Source Performed XR CHEST 1 VW 2022-07-27 16:06:27 Javier Morris [place] o f [facility] COMP. METABOLIC PANEL 2022-07-27 15:23:00 Javier Morris [facility] ([id number]) Medical Branch CBC WITH DIFF 2022-07-27 15:23:00 Javier Morris [place] o [facility] RAPID INFLUENZA A/B 2022-07-27 15:23:00 Javier Morris [facility] COVID-19 (ID NOW RAPID 2022-07-27 15:23:00 Javier Morris [facility] TESTING) Medical Branch CONSENT/REFUSAL FOR 2022-07-27 14:40:28 Doctor Unafrank, [facility] DIAGNOSIS AND TREATMENT [facility] CARDIAC CATHETERIZATION 2022-06-18 15:56:36 Kamran Hua [facility] CARDIAC CATHETERIZATION 2022-06-18 15:56:36 Kamran Hua [facility] CARDIAC CATHETERIZATION 2022-06-18 15:56:36 Kamran Hua [facility] CARDIAC CATHETERIZATION 2022-06-18 15:56:36 Kamran Hua [facility] OUTPATIENT CARDIAC 2022-06-18 06:01:00 Doctor Unafrank, [facility] CATHETERIZATION DOCUMENTS [facility] CONSENT/REFUSAL FOR 2022-06-01 16:39:57 Doctor Vidhi, [facility] DIAGNOSIS AND TREATMENT [facility] POCT SARS-COV-2 ANTIGEN 2022-05-19 22:24:00 Haley Camejo [facility] (BINAX NOW) [facility] Branch EXTERNAL PROVIDER RECORDS 2022-04-08 05:01:00 Doctor Unafrank, [facility] POCT URINALYSIS AUTO 2022-03-30 18:15:00 Franklyn Bañuelos [facility] DISCLOSURE AND CONSENT, 2022-03-30 05:01:00 Doctor Unassoctavio, [facility] MEDICAL AND SURGICAL [facility] PROCEDURES POCT URINALYSIS AUTO 2022-02-02 13:33:00 Franklyn Bañuelos [facility] HB ECG ROUTINE & RHYTHM 2021-10-29 21:44:44 Kamran Hua [facility] Plan of Care Planned Activity Planned Date Details Comments Source Encounters Start End Encounter Admission Attending Care Care Encounter Source Date/Time Date/Time Type Type Clinicians Facility Department ID 2021-11-24 Outpatient Serjio HUA [facility] CCA [id number] Univers 16:22:05 TRINOTEODORO [facility] 2021-04-20 Outpatient HELENE [facility] DARIELA [id number] Univers 22:34:37 MARY bonnie [facility] 2021-04-20 Emergency [facility] [id number] Univers 20:43:[address] [facility] [place] [place] 2022-10-26 2022-10-26 [facility] [id number] Univers 11:00:00 11:00:00 KAMRAN [facility] 2022-08-10 2022-08-10 Outpatient Serjio [facility] [id number] Univers 13:00:00 13:00[facility] 2022-07-27 2022-07-27 Out[facility] [id number] Univers 13:30:00 13:30:00 EVELIN [facility] 2022-07-27 2022-07-27 Emergency [facility] ERT [id number] Univers 08:49:00 12:38:00 JAVIER tafoya [facility] 2022-07-27 2022-07-27 Emergency [facility] 1.2.943.301 [id number] Univers 08:49:00 12:38:00 Javier S [place] 350.1.13.10 i ty of [place] [id number] [facility] [address] [place] 2022-07-13 2022-07-13 Telephone Dedra [facility] 1.2.700.997 [id number] Univers 00:00:00 00:00:00 Evelin Vesta ([place]) [employer] 350.1.13.10 it y of [place] 4.2.7.2.686 Luis Armando as EMERSON?BLEA [id number] Ma veronique[address] MEDICAL OFFICE BUILDING 2022-06-22 2022-06-22 Telephone [facility] 1.2.067.302 [id number] Univers 00:00:00 00:00:00 Sendil Aniya OTOOLE 350.1.13.10 ity of [place].2.7.2.686 [place] [id number] Ma camila FOLEY 059 [facility] 2022-06-18 2022-06-18 Outpatient R [facility] CCA [id number] Univers 06:26:00 12:25:00 SENDIL ity of [facility] 2022-06-18 2022-06-18 [facility] Melita EFREM 1.2.840.114 [id number] Univers 06:26:00 12:25:00 Encounter Kamran HEAD 350.1.13.10 ity of [facility] 4.2.7.2.686 Luis Armando as [id number] [facility] [address] [place] 2022-06-18 2022-06-18 Surgery EFREM Christine 1.2.840.114 [id number] Univers 10:00:00 11:00:00 KennPacheco 350.1.13.10 it y of [facility] 4.2.7.2.686 Luis Armando as [id number] [facility] [address] [place] 2022-06-18 2022-06-18 Telephone [facility] 1.2.089.487 [id number] Univers 00:00:00 00:00:00 Evelin [facility] 350.1.13.10 it y of [place] 4.2.7.2.686 Luis Armando as EMERSON?BLEA [id number] Ma camila MEDINA [address] [place] MEDICAL OFFICE [facility] 2022-06-18 2022-06-18 Orders Doctor LIBORIO 1.2.840.114 [id number] Univers 00:00:00 00:00:00 Only Unassigned, SONIDO 350.1.13.10 ity of [place] [facility] 4.2.7.2.686 Luis Armando as [id number] [facility] [address] [place] 2022-06-16 2022-06-16 Public Health Professor Rocael, Adc Lab Main [facility] 1.2.8 40.114 [id number] Univers 11:45:00 12:00:00 Visit Kamran Hua 350.1.13. 10 ity [facility] [place].2.7.2.[place] [facility] [phone] Ma veroniquebriseyda ALAINA [address] BUILDING 2022-06-16 2022-06-16 Outpatient [facility] [id number] Univers 11:45:00 11:45:00 SENDIL ity [facility] 2022-06-16 2022-06-16 Outpatient R [facility] [id number] Univers 08:00:00 08:00:00 ity of [facility] 2022-06-01 2022-06-01 Emergency X [facility] ERT [id number] Univers 11:00:00 11:25:00 FADUMO ity [facility] 2022-06-01 2022-06-01 Emergency [facility] 1.2.688.688 [id number] Univers 11:00:00 11:25:00 Fadumo OTOOLE 350.1.13.10 ity [facility] 4.2.7.2.686 [facility] [phone] [facility] [address] Branch 2022-05-20 2022-05-20 Outpatient R [facility] [id number] Univers 11:00:00 11:00:00 ity of [facility] 2022-05-19 2022-05-19 Outpatient R [facility] [id number] Univers 16:20:00 16:38:[address] [facility] [place] [place] 2022-05-19 2022-05-19 Urgent Haley Camejo [facility] 1.2.840.114 [id number] Univers 16:20:00 16:38:33 Care Unknown, Attending HEALTH 350.1.13.10 ity of [place] 4.2.7.2.686 Luis Armando as EMERSON?BLEA [id number] Ma camila KNEY [address] MEDICAL OFFICE BUILDING 2022-05-08 2022-05-08 Telephone EFREM Hua 1.2.509.607 [id number] Univers 00:00:00 00:00:00 Kamran HEAD 350.1.13.10 ity of HOSPITAL 4.2.7.2.686 [id number] [facility] [address] [place] 2022-04-29 2022-04-29 Telephone Melita [facility] 1.2.501.535 [id number] Univers 00:00:00 00:00:00 Sendil Aniya [place] 350.1.13.10 ity of [place].2.7.2.[place] [id number] Ma dical ALAINA [address] [facility] 2022-04-27 2022-04-27 Telephone HuaEFREM 1.2.500.731 [id number] Univers 00:00:00 00:00:00 Sendteodoro Kwan SONIDO 350.1.13.10 ity of HOSPITAL 4.2.7.2.686 [address] [id number] [facility] [address] [place] 2022-04-18 2022-04-18 Refjay Del RealMOUNTAIN [facility] 1.2.840.114 [id number] Univers 00:00:00 00:00:00 Wondiful A HEALTH 350.1.13.10 ity of [place] 4.2.7.2.686 Luis Armando as EMERSON?BLEA [id number] Ma camila BYRNEEY [address] MEDICAL OFFICE BUILDING 2022-04-08 2022-04-08 Orders Doctor LIBORIO 1.2.840.114 [id number] Univers 00:00:00 00:00:00 Only Unassigned, SONIDO 350.1.13.10 ity of [facility] 4.2.7.2.686 Luis Armando as [id number] [address] 2022-03-30 2022-03-30 Outpatient R SARMAD [facility] [id number] Univers 13:00:00 14:03:44 FRANKLYN ity of [facility] 2022-03-30 2022-03-30 Office [facility] 1.2.840.114 [id number] Univers 13:00:00 14:03:44 Visit Rm, Adc Surg Spec Procedure [place] 3 50.1.13.10 ity of [place] 4.2.7.2.[place] [id number] Me dical NAL [address] BUILDING 2022-03-30 2022-03-30 Orders Doctor LIBORIO 1.2.840.114 [id number] Univers 00:00:00 00:00:00 Only Unassigned, SONIDO 350.1.13.10 ity of [facility] 4.2.7.2.686 Luis Armando as [id number] [address] 2022-03-26 2022-03-26 Refill S[facility]adMOUNT[facility] 1.2.840.114 [id number] Univers 00:00:00 00:00:00 Franklyn [place] 350.1.13.10 i ty of [place].2.[place] [phone] [address] 2022-03-18 2022-03-18 Nurse Nurse, [facility] Surgery [facility] 1.2. 840.114 [id number] Univers 10:00:00 10:36:16 Visit Franklyn Bañuelos 350.1.13.10 ity of [place] 4.2.7.2.[place] [id number] [address] 2022-03-18 2022-03-18 Outpatient R [facility] [id number] Univers 10:00:00 10:00:00 FRANKLYN ity [facility] 2022-03-09 2022-03-09 Outpatient R [facility] [id number] Univers 14:00:00 14:00:00 FRANKLYN ity [facility] 2022-03-03 2022-03-03 Refill [facility] 1.2.840.114 [id number] Univers 00:00:00 00:00:00 Evelin [facility] 350.1.13.10 it y of [place] 4.2.7.2.686 Luis Armando as EMERSON?BLEA [phone] [address] 2022-02-25 2022-02-25 Nurse Nurse, [facility] Surgery [facility] 1.2. 840.114 [id number] Univers 13:15:00 13:15:00 Visit Franklyn Bañuelos 350.1.13.10 ity of [place] 4.2.[place].2.[place] [id number] [address] 2022-02-25 2022-02-25 Outpatient [facility] [id number] Univers 13:15:00 13:02:27 FRANKLYN ity [facility] 2022-02-02 2022-02-02 Outpatient R SHEELARosalinaEAST [facility] [id number] Univers 08:15:00 09:02:46 FRANKLYN ity [facility] 2022-02-02 2022-02-02 [facility] 1.2.840.114 [id number] Univers 08:15:00 09:02:46 Visit [facility] 350.1.13.10 i ty of [facility] 4.2.7.2.[place] [id number] [address] 2022-01-29 2022-01-29 Outpatient R ISELAGINORosalinaEAST [facility]IO [facility] [id number] Univers 11:45:00 11:45:00 FRANKLYN ity [facility] 2022-01-22 2022-01-22 Refjay Del RealMOUNT[facility] 1.2.840.114 [id number] Univers 00:00:00 00:00:00 Wondiful A HEALTH 350.1.13.10 ity of [facility] 4.2.7.2.686 Luis Armando as EMERSON?BLEA [id number] [address] OFFICE [facility] 2022-01-22 2022-01-22 Refjay Del RealMOUNTAIN [facility] 1.2.840.114 [id number] Univers 00:00:00 00:00:00 Wondiful A HEALTH 350.1.13.10 ity of [place] 4.2.7.2.686 Luis Armando as EMERSON?BLEA [id number] [address] OFFICE [facility] 2022-01-22 2022-01-22 Jorge SchererMOUNTAIN VIEW REG[facility] 1.2.840.114 [id number] Univers 00:00:00 00:00:00 Keon HEALTH 350.1.13.10 it y of [place] 4.2.7.2.686 Luis Armando as EMERSON?BLEA [phone] Ma camila BYRNE 044 [facility] OFFICE [facility] 2022-01-19 2022-01-19 Public Health Professor Lab, Ang - Db [facility] 1.2.840.1 14 [id number] [facility] 13:15:00 13:25:36 Visit Evelin Colmenares HEALTH 350.1.13.10 ity of [place] 4.2.7.2.686 Luis Armando as EMERSON?BLEA [id number] [address] OFFICE [facility] 2022-01-19 2022-01-19 Outpatient R [facility] [id number] Univers 13:15:00 13:15:00 EVELIN tafoya [facility] 2022-01-19 2022-01-19 Telephone Ded[facility]MOUNT[facility] 1.2.071.414 [id number] [facility] 00:00:00 00:00:00 Evelin HEALTH 350.1.13.10 it y of [place] 4.2.7.2.686 Luis Armando as EMERSON?BLEA [phone] [facility] [address] OFFICE [facility] 2022-01-16 2022-01-16 Outpatient R DEDRA, [facility] [id number] Univers 13:00:00 23:59:00 EVELIN tafoya [facility] 2022-01-16 2022-01-16 Outpatient R DEDRA, [facility] [id number] Univers 13:00:00 13:00:00 EVELIN tafoya [facility] 2022-01-16 2022-01-16 Public Health Professor Lab, Ang - Db [facility] 1.2.840.1 14 [id number] [facility] 12:15:00 12:30:00 Visit Evelin Colmenares HEALTH 350.1.13.10 ity of [place] 4.2.7.2.686 Luis Armando as EMERSON?BLEA [id number] [address] OFFICE [facility] 2022-01-16 2022-01-16 Office [facility] 1.2.840.114 [id number] Univers 11:30:00 12:24:17 Visit Evelin HEALTH 350.1.13.10 it y of [place] 4.2.7.2.686 Luis Armando as EMERSON?BLEA [id number] Ma camila BYRNE[address] MEDICAL OFFICE [facility] 2022-01-16 2022-01-16 Outpatient R DEDRA [facility] [id number] Univers 11:30:00 12:24:17 EVELINSAMM tafoya [facility] 2022-01-16 2022-01-16 Outpatient R DEDRA [facility] [id number] Univers 11:30:00 11:30:00 EVELIN michelet [facility] 2021-12-30 2021-12-30 Outpatient R MISSAELCELESTE [facility] [id number] Univers 14:27:53 23:59:00 EVELINSAMM tafoya [facility] 2021-12-30 2021-12-30 Outpatient R DEDRA [facility] [id number] [facility] 13:30:00 15:03:09 EVELIN michelet [facility] 2021-12-30 2021-12-30 Office [facility] 1.2.840.114 [id number] Univers 13:30:00 15:03:09 Visit Evelin HEALTH 350.1.13.10 it y of [place] 4.2.7.2.686 Luis Armando as EMERSON?BLEA [id number] [address] OFFICE [facility] 2021-12-30 2021-12-30 Outpatient [facility] [id number] Univers 13:30:00 13:30:00 EVELINSAMM tafoya [facility] 2021-12-26 2021-12-26 Telephone [facility] 1.2.954.129 [id number] Univers 00:00:00 00:00:00 Evelin HEALTH 350.1.13.10 it y of [place] 4.2.7.2.686 Luis Armando as EMERSON?BLEA [id number] Ma camila [address] MEDICAL OFFICE [facility] 2021-12-24 2021-12-24 Outpatient R MELITA [facility] [id number] Univers 13:00:00 13:00:00 SENDIL ity [facility] 2021-12-24 2021-12-24 Outpatient [facility] [id number] Univers 13:00:00 13:00:00 SENDIL ity [facility] 2021-12-24 2021-12-24 Outpatient R HUA [facility] [id number] Univers 13:00:00 13:00:00 SENDIL ity [facility] 2021-12-24 2021-12-24 Outpatient R MELITA [facility] [id number] Univers 13:00:00 13:00:00 SENDIL ity [facility] 2021-12-24 2021-12-24 Telephone EFREM Hua 1.2.029.598 [id number] Univers 00:00:00 00:00:00 Sendil Aniya HEAD 350.1.13.10 ity of [facility] 4.2.7.2.686 Luis Armando as [phone] [address] 2021-12-24 2021-12-24 Telephone [facility] 1..856.490 [id number] Univers 00:00:00 00:00:00 Evelin HEALTH 350.1.13.10 it y of [place] 4.2.7.2.686 Luis Armando as EMERSON?BLEA [id number] [address] MEDICAL OFFICE [facility] 2021-12-19 2021-12-19 Outpatient [facility] [id number] Univers 14:30:00 14:58:55 EVELIN ity [facility] 2021-12-19 2021-12-19 Office [facility] 1.2.840.114 [id number] Univers 14:30:00 14:58:55 Visit [facility] 350.1.13.10 it y of [place] 4.2.7.2.686 Luis Armando as EMERSON?BLEA [id number] [address] MEDICAL OFFICE [facility] 2021-12-19 2021-12-19 Telephone Melita [facility] 1.2.700.239 [id number] Univers 00:00:00 00:00:00 Sendil Aniya [place] 350.1.13.10 ity of [place] [id number] [facility] 059 [facility] 2021-12-02 2021-12-02 Outpatient R [facility] [id number] Univers 11:30:00 11:30:00 ity [facility] 2021-12-02 2021-12-02 Outpatient R [facility] [id number] Univers 11:00:00 11:00:00 ity [facility] 2021-11-26 2021-11-26 Telephone BarbaraMOUNT[facility] 1.2.720.417 [id number] Univers 00:00:00 00:00:00 Elinor WATTPEC 350.1.13.10 ity of [place]2.[place].2.[place] C[place] [id number] [facility] [address] [facility] 2021-11-25 2021-11-25 Outpatient R ELINOR JIMENEZ [facility] [id number] Univers 14:30:47 23:59:00 ELINOR JIMENEZ [facility] 2021-11-25 2021-11-25 [facility] 1.2.840.114 [id number] Univers 14:30:47 23:59:00 Encounter Elinor WATTPEC 350.1.13.10 ity of [place] 4[place]2.7.2.686 [place] CENTER [id number] [facility] [address] [facility] 2021-11-25 2021-11-25 Outpatient R ELINOR JIMENEZ [facility] [id number] Univers 15:00:00 15:48:19 ELINOR JIMENEZ [facility] 2021-11-25 2021-11-25 [facility] 1.2.840.114 [id number] Univers 15:00:00 15:48:19 Visit Elinor WATTPEC 350.1.13.10 ity of [place]2.7.2.686 [place] C[place] [id number] [facility] [address] [facility] 2021-11-25 2021-11-25 Outpatient R ELINOR JIMENEZ [facility] [id number] Univers 14:00:00 14:00:00 ELINOR JIMENEZ [facility] 2021-11-25 2021-11-25 Outpatient Serjio JIMENEZ ELINOR [facility] [id number] Univers 14:00:00 14:00:00 BARBARA ELINOR itbonnie [facility] 2021-11-20 2021-11-20 Telephone Barbara [facility] 1.2.122.166 [id number] Univers 00:00:00 00:00:00 Elinor MULTISPEC 350.1.13.10 ity of [place] [id number] [facility] AND [address] DIABETES CLINIC 2021-11-18 2021-11-18 Telephone EFREM Hua 1.2.485.916 [id number] Univers 00:00:00 00:00:00 Kamran HEAD 350.1.13.10 ity of [facility] 4.2.7.2.686 Luis Armando as [id number] [place] [id number] [place] 2021-11-18 2021-11-18 Jorge Del RealMOUNT[facility] 1.2.840.114 [id number] Univers 00:00:00 00:00:00 Wondiful A HEALTH 350.1.13.10 ity of [place] 4.2.7.2.686 Luis Armando as EMERSON?BLEA [id number] [facility] [address] MEDICAL OFFICE BUILDING 2021-11-07 2021-11-07 Outpatient GEE JUAN [facility] [id number] Univers 13:00:00 14:01:[address] [facility] [place] [place] 2021-11-07 2021-11-07 Office Marva [facility] 1.2.840.114 [id number] Univers 13:00:00 14:01:44 Visit Gee [facility] 350.1.13.10 ity of [place] 4.2.7.2.686 Luis Armando as EMERSON?BLEA [id number] [facility] [address] MEDICAL OFFICE BUILDING 2021-11-07 2021-11-07 Outpatient Serjio COLMENARES [facility] [id number] Univers 11:30:00 11:30:00 EVELIN tafoya [facility] 2021-11-06 2021-11-06 Telephone Melita [facility] 1.2.376.162 [id number] Univers 00:00:00 00:00:00 Sendteodoro OTOOLE 350.1.13.10 ity of [facility] 4.2.7.[place] [phone] Ma dical NAL 059 [facility] 2021-11-03 2021-11-03 Office Dedra [facility] 1.2.840.114 [id number] Univers 11:30:00 12:12:13 Visit [facility] 350.1.13.10 it y of [place] 4.2.7.2.686 Luis Armando as EMERSON?BLEA [id number] Ma dicri KNEY 044 [facility] OFFICE [facility] 2021-11-03 2021-11-03 Outpatient R DEDRA [facility] [id number] Univers 11:30:00 12:12:13 EVELIN bonnie [facility] 2021-11-03 2021-11-03 [facility] [id number] Univers 11:30:00 11:30:00 EVELIN itbonnie [facility] 2021-10-29 2021-10-29 Outpatient R MELITA [facility] [id number] Univers 15:00:00 17:02:57 SENDIL [facility] 2021-10-29 2021-10-29 [facility] [id number] Univers 15:00:00 17:02:57 Visit Kamran OTOOLE [id number] [facility]y [facility] [id number] [phone] [address] 2021-10-29 2021-10-29 [facility] [id number] Univers 15:00:00 17:02:57 SENDIL [facility] 2021-10-24 2021-10-24 Telephone [facility] [id number] Univers 00:00:00 00:00:00 Sendteodoro OTOOLE [id number] ity [facility] [id number] [facility] [phone] Ma dical NAL 059 [facility] 2021-10-23 2021-10-23 Urgent [facility] [id number] Univers 18:00:00 18:18:59 Care Rannh HEALTH [id number] it y of [place] [id number] Luis Armando as EMERSON?BLEA [phone] Ma dicbriseyda KNEY [address] [facility] 2021-10-23 2021-10-23 Outpatient R JAMAL [facility] [id number] Univers 18:00:00 18:00:[address] [facility] [place] [place] 2021-10-23 2021-10-23 Jorge [facility] [id number] Univers 00:00:00 00:00:00 Wonful A HEALTH [id number] ity of [place] [id number] Luis Armando as [place]?BLEA [phone] [facility] [address] [facility] 2021-10-09 2021-10-09 Outpatient R ELINOR JIMENEZ [facility] [id number] Univers 13:00:00 13:42:33 ELINOR JIMENEZ [facility] 2021-10-09 2021-10-09 Office [facility] 1.2.840.114 [id number] Univers 13:00:00 13:42:33 Visit Elinor SOTO 350.1.13.10 ity of [place].2.[place] [phone] [address] [facility] 2021-10-09 2021-10-09 Outpatient R ELINOR JIMENEZ [facility] [id number] Univers 13:00:00 13:42:33 ELINOR JIMENEZ [facility] 2021-10-07 2021-10-07 Outpatient R DEDRA [facility] [id number] Univers 16:30:00 17:14:26 EVELIN tafoya [facility] 2021-10-07 2021-10-07 Office Dedra [facility] 1.2.840.114 [id number] Univers 16:30:00 17:14:26 Visit [facility] 350.1.13.10 it y of [place] 4.2.7.2.686 Luis Armando as EMERSON?BLEA [phone] [facility] [address] MEDICAL OFFICE [facility] 2021-10-07 2021-10-07 Outpatient R DEDRA [facility] [id number] Univers 16:30:00 17:14:26 EVELIN ity [facility] 2021-10-07 2021-10-07 Outpatient R DEDRA [facility] [id number] Univers 16:30:00 17:14:26 EVELIN ity [facility] 2021-10-07 2021-10-07 Orders Doctor LIBORIO 1.2.840.114 [id number] Univers 00:00:00 00:00:00 Only Unassigned, SONIDO 350.1.13.10 ity of [place] [facility] 4.2.7.2.686 Luis Armando as [phone] [address] 2021-09-30 2021-09-30 Refill Raul [facility] 1.2.840.114 [id number] Univers 00:00:00 00:00:00 [facility] 350.1.13.10 i ty of [place] 4.2.7.2.686 Luis Armando as EMERSON?BLEA [id number] [facility] [address] MEDICAL OFFICE [facility] 2021-09-17 2021-09-17 Outpatient R RADIOLOGY [facility] [id number] Univers 00:00:00 00:00:00 ity of [facility] 2021-09-15 2021-09-15 Outpatient R MELITA [facility] [id number] Univers 15:00:00 15:00:00 SENDIL ity [facility] 2021-09-10 2021-09-10 Outpatient R MELITA [facility] [id number] Univers 14:00:00 15:05:34 SENDIL ity [facility] 2021-09-10 2021-09-10 Office Melita [facility] 1.2.840.114 [id number] Univers 14:00:00 15:05:34 Visit Kamran OTOOLE 350.1.13.10 ity of [place].7.2.686 [place] [phone] Ma dicbriseyda NAL [address] BUILDING 2021-09-10 2021-09-10 Outpatient R MELITA [facility] [id number] Univers 14:00:00 15:05:34 SENDIL ity of [facility] 2021-09-10 2021-09-10 Orders Doctor LIBORIO 1.2.840.114 [id number] Univers 00:00:00 00:00:00 Only Unassigned, SONIDO 350.1.13.10 ity of [place] [facility] 4.2.7.2.686 Luis Armando as [phone] [facility] [address] 2021-09-08 2021-09-08 Urgent [facility] 1.2.840.114 [id number] Univers 10:20:00 10:40:00 Care [facility] 350.1.13.10 i ty of [place] 4.2.7.2.686 Luis Armando as EMERSON?BLEA [phone] Ma dical KNEY [address] MEDICAL OFFICE BUILDING 2021-09-08 2021-09-08 [facility] [id number] Univers 10:20:00 10:20:00 TAMERA ity o f [facility] 2021-09-08 2021-09-08 Letter Doctor CAPONE 1.2.840.114 [id number] Univers 00:00:00 00:00:00 (Out) Unassigned, SONIDO 350.1.13.10 ity of [place] [facility] 4.2.7.2.686 Luis Armando as [phone] [facility] [address] 2021-09-08 2021-09-08 Letter Doctor LIBORIO 1.2.840.114 [id number] Univers 00:00:00 00:00:00 (Out) Unassigned, SONIDO 350.1.13.10 ity of [place] [facility] 4.2.7.2.686 Luis Armando as [phone] [facility] [address] 2021-09-01 2021-09-01 Transition EDENILSON [place] 1.2.840.114 [id number] Univers 00:00:00 00:00:[address]ison JASON 350.1.13.10 ity [facility] 4.2.7.2.[address] [place] [id number] [facility] [address] 2021-08-29 2021-08-30 Outpatient U EARNEST NOBLESMAD [facility] IGGY [id number] Univers 17:37:00 15:10:00 ОЛЕГPONCHO [facility] 2021-08-29 2021-08-30 Emergency Jorge Geiger 1.2.840. 114 [id number] Univers 17:37:00 15:10:00 Poncho Nobles Wendy HEAD 350.1. 13.10 ity of [facility] 4.2.7.2.686 Luis Armando as [phone] [facility] [address] 2021-08-29 2021-08-29 Outpatient R KING LUKE [facility] [id number] Univers 17:00:00 17:00:00 NESTOR [facility] 2021-08-27 2021-08-27 Outpatient R ELINOR JIMENEZ [facility] [id number] Univers 15:00:00 15:00:00 ELINOR JIMENEZ [facility] 2021-08-27 2021-08-27 Telephone [facility] 1.2.546.817 [id number] Univers 00:00:00 00:00:00 Elinor SOTO 350.1.13.10 ity [place].2.[place] [id number] [facility] [place] [address] DIABETES CLINIC 2021-08-26 2021-08-26 Outpatient R ELINOR JIMENEZ [facility] [id number] Univers 15:02:48 23:59:00 ELINOR JIMENEZ [facility] 2021-08-26 2021-08-26 [facility] 1.2.840.114 [id number] Univers 15:02:48 23:59:00 Encounter Elinor SOTO 350.1.13.10 ity [place]2.7.2.[address] [place] [facility] [id number] [facility] [place] [address] DI[facility]ETES CLINIC 2021-08-26 2021-08-26 Outpatient R ELINOR JIMENEZ [facility] [id number] Univers 14:30:00 14:30:00 ELINOR JIMENEZ [facility] 2021-08-12 2021-08-12 Outpatient R ELINOR JIMENEZ [facility] [id number] Univers 15:30:00 15:30:00 ELINOR JIMENEZ [facility] 2021-08-12 2021-08-12 Office [facility] 1.2.840.114 [id number] Univers 15:30:00 15:30:00 Visit Elinor WATTPEC 350.1.13.10 ity of [place] 4.2.7.2.[place] [id number] [facility] [place] [address] DIABETES CLINIC 2021-08-12 2021-08-12 Outpatient R ELINOR JIMENEZ [facility] [id number] Univers 15:30:00 15:20:13 ELINOR JIMENEZ [facility] 2021-08-05 2021-08-05 Outpatient R [facility] [id number] Univers 10:15:00 11:59:19 WONDIFUL ity o f [facility] 2021-08-05 2021-08-05 Office [facility] 1.2.840.114 [id number] Univers 10:15:00 11:59:19 Visit Dheerajful [facility] 350.1.13.10 ity of [place] 4.2.7.2.686 Luis Armando as EMERSON?BLEA [phone] Ma camila [facility] [address] MEDICAL OFFICE BUILDING 2021-08-05 2021-08-05 Public Health Professor Lab, Ang - Db [facility] 1.2.840.1 14 [id number] Univers 11:15:00 11:30:00 Visit Nehal Del Real [facility] 350.1.13.1 0 ity of [place] 4.2.7.2.686 Luis Armando as EMERSON?BLEA [phone] Ma camila BYRNE [address] MEDICAL OFFICE BUILDING 2021-08-04 2021-08-04 Outpatient R GISSELLE DURAHM [facility] [id number] Univers 11:00:00 13:30:03 ity of [facility] 2021-08-04 2021-08-04 Office Karlie Jim [facility] 1.2.840.114 [id number] Univers 11:00:00 13:30:03 Visit Gisselle [facility] 350.1.13.10 ity of [place] 4.2.7.2.686 [place] [facility] [id number] [address] OFFICE BUILDING 2021-08-04 2021-08-04 Outpatient R GISSELLE DURHAM [facility] [id number] Univers 11:00:00 11:00:00 ity of [facility] 2021-08-04 2021-08-04 Orders Doctor LIBORIO 1.2.840.114 [id number] Univers 00:00:00 00:00:00 Only Unassigned, SONIDO 350.1.13.10 ity of [place] [facility] 4.2.7.2.686 Luis Armando as [phone] [facility] [address] 2021-07-28 2021-07-28 Telephone Gt [facility] 1.2.840.114 [id number] Univers 00:00:00 00:00:00 Wondiful A HEALTH 350.1.13.10 ity of [place] 4.2.7.2.686 Luis Armando as EMERSON?BLEA [id number] Ma veroniquebriseyda [address] MEDICAL OFFICE BUILDING 2021-06-30 2021-06-30 Emergency X ALANIS [facility] ERT [id number] Univers 15:54:00 18:42:00 FLORENTIN ity of [facility] 2021-06-30 2021-06-30 Emergency Alanis [facility] 1.2.840.114 [id number] Univers 15:54:00 18:42:00 Florentin B [place] 350.1.13.10 i ty of [place] 4.2.7.2.686 [place] [facility] [id number] [facility] [address] 2021-06-28 2021-06-28 Urgent Nurse, [facility] 1.2.840.114 [id number] Univers 19:00:00 19:20:00 Care Raul, [facility] 350.1.13.10 ity of [place] 4.2.7.2.686 Luis Armando as EMERSON?BLEA [id number] [address] MEDICAL OFFICE [facility] 2021-06-28 2021-06-28 Out[facility] [id number] Univers 19:00:00 19:00:00 TAMERA ity o f [facility] 2021-06-28 2021-06-28 Outpatient R [facility] [id number] Univers 19:00:00 19:00:00 TAMERA ity o f [facility] 2021-06-23 2021-06-23 Outpatient [facility] [id number] Univers 20:40:00 20:56:[address] [facility] [place] [place] 2021-06-23 2021-06-23 [facility] 1..840.114 [id number] Univers 20:40:00 20:56:03 Care [facility] 350.1.13.10 it y of [place] 4.2.7.2.686 Luis Armando as EMERSON?BLEA [phone] [address] OFFICE [facility] 2021-06-18 2021-06-18 Office [facility] ..[id number] Univers 10:20:00 10:40:00 Visit Shyanne Hilario [place] 350.1.13.10 ity [facility] 4.2.7.2.686 [place] [phone] [facility]85 [facility] 2021-06-18 2021-06-18 Outpatient R ATANASOV, STRAHIL [facility] [id number] Univers 10:20:00 10:20:00 ATANASOVRUYHIL itbonnie [facility] 2021-06-18 2021-06-18 Outpatient R ATANASOV, STRAHIL [facility] [id number] Univers 10:20:00 10:20:00 ATAKOREYOV, STRAHIL ity [facility] 2021-06-05 2021-06-05 Orders Doctor CAPONE 1.2.840.114 [id number] Univers 00:00:00 00:00:00 Only Unassigned, SONIDO 350.1.13.10 ity of [place] [facility] 4.2.7.2.686 Luis Armando as [phone] [facility] [address] 2021-06-03 2021-06-03 Refill [facility] 1.2.840.114 [id number] Univers 00:00:00 00:00:00 Wondiful [facility] 350.1.13.10 [facility] 4.2.7.2.686 Luis Armando as EMERSON?BLEA [phone] [address] MEDICAL OFFICE [facility] 2021-06-02 2021-06-02 Case Gt [facility] 1.2.840.114 [id number] Univers 00:00:00 00:00:00 Management Wondiful [facility] 350.1.13.10 ity of [place] 4.2.7.2.686 Luis Armando as EMERSON?BLEA [phone] [address] OFFICE [facility] 2021-06-02 2021-06-02 Telephone [facility] 1.2.840.114 [id number] Univers 00:00:00 00:00:00 Wondiful A HEALTH 350.1.13.10 ity of [place] 4.2.7.2.686 Luis Armando as EMERSON?BLEA [phone] [address] OFFICE [facility] 2021-05-22 2021-05-22 Public Health Professor Surekha De La Torre Sleep Lab [facility] 1.2 .840.114 [id number] Univers 12:47:18 13:02:18 Visit Shyanne Bland [place] 350.1.13. 10 ity of [place] 4.2.7.2.686 [place] [id number] [facility] [address] 2021-05-22 2021-05-22 Outpatient R SHYANNE BLAND [facility] [id number] Univers 13:00:00 13:00:00 SHYANNE BLAND ity of [facility] 2021-05-22 2021-05-22 Outpatient R SHYANNE BLAND [facility] [id number] Univers 13:00:00 13:00:[address] [facility] [place] [place] 2021-05-22 2021-05-22 Orders Doctor LIBORIO 1.2.840.114 [id number] Univers 00:00:00 00:00:00 Only Unassigned, SONIDO 350.1.13.10 ity of [place] [facility] 4.2.7.2.686 [address] Arm[address] as [id number] [facility] [address] 2021-05-20 2021-05-20 Outpatient R [facility] [id number] Univers 13:00:00 13:00:00 ity of [facility] 2021-05-20 2021-05-20 Outpatient R SHYANNE BLAND [facility] [id number] Univers 13:00:00 13:00:00 SHYANNE BLAND [facility] 2021-05-20 2021-05-20 Laboratory Only, Adc Test [facility] 1.2.840. 114 [id number] Univers 12:39:23 12:54:23 Only Shyanne Bland T [place] 350.1.13. 10 ity of [place] 4.2.7.2.686 [place] [phone] [facility] [address] 2021-05-13 2021-05-13 Refjay Del [facility]MOUNT[facility] 1.2.840.114 [id number] Univers 00:00:00 00:00:00 Wondiful A HEALTH 350.1.13.10 ity of [place] 4.2.7.2.686 Luis Armando as PROFESSIO [phone] [facility] ALAINA [address] [place] [address] OFFICE BUILDING ONE 2021-05-12 2021-05-12 Alex Del Real [facility] 1.2.840.114 [id number] Univers 00:00:00 00:00:00 Management Wondiful [facility] HEALTH 350.1.13.10 ity of [place] 4.2.7.2.686 Luis Armando as EMERSON?BLEA [phone] Ma camila MEDINA [address] [place] [address] MEDICAL OFFICE BUILDING 2021-05-10 2021-05-10 Outpatient R KEVIN [facility] [id number] Univers 09:40:00 09:40:00 ACE ity of [facility] 2021-05-10 2021-05-10 Urgent Luz Maria Berry [facility] 1.2.840.114 [id number] Univers 09:17:19 09:37:19 Care Green, Ace HEALTH 350.1.13.10 ity of [place] 4.2.7.2.686 Luis Armando as EMERSON?BLEA [id number] Ma camila MEDINA [address] MEDICAL OFFICE BUILDING 2021-05-09 2021-05-09 Refill [facility] 1.2.840.114 [id number] Univers 00:00:00 00:00:00 Wondiful A HEALTH 350.1.13.10 ity of [place] 4.2.7.2.686 Luis Armando as EMERSON?BLEA [phone] [facility] MEDINA 044 [facility] OFFICE [facility] 2021-05-06 2021-05-06 [facility] 1.2.840.114 [id number] Univers 00:00:00 00:00:00 Wondiful A HEALTH 350.1.13.10 ity of [place] 4.2.7.2.686 Luis Armando as PROFESSIO [phone] [facility] 044 [facility] ONE 2021-05-05 2021-05-05 Outpatient R GT [facility] [id number] Univers 16:15:00 23:59:00 WONDIFUL ity o f [facility] 2021-05-05 2021-05-05 Hospital Gt [facility] 1.2.276.927 [id number] Univers 16:15:00 23:59:00 Encounter Wondiful A HEALTH 350.1.13.10 ity of [place] 4.2.7.2.686 Luis Armando as EMERSON?BLEA [phone] Ma camila MEDINA 809 [facility] OFFICE BUILDING 2021-05-05 2021-05-05 Public Health Professor Lab, Lane - Shawn [facility] 1.2.840.1 14 [id number] Univers 16:21:47 16:38:22 Visit Dheeraj Del Realful A HEALTH 350.1.13.1 0 ity of [place] 4.2.7.2.686 Luis Armando as EMERSON?BLEA [phone] Ma camila MEDINA [address] MEDICAL OFFICE BUILDING 2021-05-05 2021-05-05 Outpatient R GT [facility] [id number] Univers 16:00:00 16:18:42 WONDIFUL ity o f [facility] 2021-05-05 2021-05-05 Office [facility] 1.2.840.114 [id number] Univers 15:17:21 16:18:42 Visit Wondiful A HEALTH 350.1.13.10 ity of [place] 4.2.7.2.686 Luis Armando as EMERSON?BLEA [id number] [facility] CATY 044 [facility] OFFICE BUILDING 2021-04-11 2021-04-11 Outpatient R GT [facility] [id number] Univers 15:45:00 15:45:00 WONDIFUL ity o f [facility] 2021-03-09 2021-03-09 Refill [facility] 1.2.840.114 [id number] Univers 00:00:00 00:00:00 Wondiful A Health 350.1.13.10 ity of [place] 4.2.7.2.686 Luis Armando as Professio [phone] [address] One 2021-03-07 2021-03-07 Telephone [facility] 1.2.840.114 [id number] Univers 00:00:00 00:00:00 Wondiful A Health 350.1.13.10 ity of [place] 4.2.7.2.686 Luis Armando as Emerson?Blea [phone] [facility] koby [address] [place] [address] Medical Office [facility] 2021-02-12 2021-02-12 Refill [facility] 1.2.840.114 [id number] Univers 00:00:00 00:00:00 Wondiful A Health 350.1.13.10 ity of [place] 4.2.7.2.686 Luis Armando as Professio [phone] [facility] nal [address] [place] [address] Office [facility] One 2021-02-10 2021-02-10 Outpatient R KARLIE JIM [facility] [id number] Univers 10:00:00 10:00:00 ity [facility] 2021-02-10 2021-02-10 Office Karlie Jim [facility] 1.2.840.114 [id number] Univers 09:40:46 09:55:46 Visit Health 350.1.13.10 it y of [place] 4.2.7.2.686 Nisreen Oakley [phone] [address] Office Building 2021-01-20 2021-01-20 Outpatient [facility] [id number] Univers 08:00:00 08:00:00 WONDIFUL ity o f [facility] 2021-01-17 2021-01-17 Outpatient R GT [facility] [id number] Univers 10:30:00 10:30:00 WONDIFUL ity o f [facility] 2021-01-01 2021-01-01 Outpatient R AGUILA [facility] [id number] Univers 16:20:00 16:20:00 CHUCKIE [facility] 2020-12-30 2020-12-30 Outpatient R SARMAD [facility] [id number] Univers 15:00:00 15:00:00 [facility] 2020-12-24 2020-12-24 Outpatient R HELENE [facility] [id number] Univers 15:45:00 15:45:00 [facility] 2020-12-09 2020-12-09 Outpatient R ANYI [facility] [id number] Univers 11:15:00 11:15:00 ANYI [facility] 2020-11-07 2020-11-07 Outpatient R [facility] [id number] Univers 13:00:00 13:00:00 [facility] 2020-11-05 2020-11-05 [facility] [id number] Univers 15:45:00 15:45:[address] [facility] 2020-11-04 2020-11-04 [facility] [id number] Univers 14:00:00 14:00:00 [facility] 2020-10-28 2020-10-28 Outpatient R SARMAD [facility] [id number] Univers 13:30:00 13:30:00 FRANKLYN ity [facility] 2020-10-17 2020-10-17 Outpatient R GT, [facility] [id number] Univers 10:45:00 10:45:00 WONDIFUL ity o f [facility] 2020-10-07 2020-10-07 Outpatient R SHEELARosalina [facility] [id number] Univers 09:45:00 09:45:00 FRANKLYN ity [facility] 2020-09-12 2020-09-12 Outpatient R ISELAGINORosalina [facility] [id number] Univers 09:30:00 09:30:[address] [facility] [place] [place] 2020-09-10 2020-09-10 Outpatient R DEDRA [facility] [id number] Univers 16:15:00 16:15:00 EVELIN [facility] 2020-09-02 2020-09-02 Outpatient R GT, [facility] [id number] Univers 14:00:00 14:00:00 WONDIFUL ity o f [facility] 2020-08-30 2020-08-30 Outpatient R GT, [facility] [id number] Univers 16:00:00 16:00:00 WONDIFUL ity o f [facility] 2020-08-20 2020-08-20 Telephone [facility] 1.2.840.114 [id number] 00:00:00 00:00:00 Wondiful A Health 350.1.13.10 [place] 4.2.7.2.686 Professio [phone] nal [address] One 2020-08-05 2020-08-05 Outpatient [facility] [id number] Univers 14:00:00 14:00:[address] [facility] [place] [place] 2020-07-23 2020-07-23 Telephone [facility] 1.2.840.114 [id number] 00:00:00 00:00:00 Wondiful A Health 350.1.13.10 [place] 4.2.7.2.686 Professio [phone] nal [address] One 2020-07-19 2020-07-19 Outpatient R GT [facility] [id number] Univers 11:00:00 11:00:00 WONDIFUL ity o f [facility] 2020-07-19 2020-07-19 Office Gt [facility] 1.2.840.114 [id number] 08:01:11 10:21:48 Visit Wondiful A [facility] 350.1.13.10 [place] 4.2.7.2.686 Professio [id number] nal [address] Office [address] One 2020-07-19 2020-07-19 Outpatient R GT [facility] [id number] Univers 08:00:00 08:00:00 WONDIFUL ity o f [facility] 2020-05-10 2020-05-10 Outpatient R GT [facility] [id number] Univers 08:00:00 08:00:00 WONDIFUL ity o f [facility] 2020-05-09 2020-05-09 Outpatient R GT [facility] [id number] Univers 13:00:00 13:00:00 WONDIFUL ity o f [facility] 2020-04-29 2020-04-29 Outpatient R GT [facility] [id number] Univers 13:00:00 13:00:00 WONDIFUL ity o f [facility] 2020-04-19 2020-04-19 Outpatient R GT [facility] [id number] Univers 16:00:00 16:00:00 WONDIFUL ity o f [facility] 2020-04-16 2020-04-16 Outpatient R NARAYAN, [facility] [id number] Univers 13:30:00 13:30:00 MARY y [facility] 2020-04-02 2020-04-02 Outpatient R HELENE [facility] [id number] Univers 13:30:00 13:30:00 MARY bonnie [facility] 2020-03-21 2020-03-21 Outpatient R [facility] [id number] Univers 13:20:00 13:20:00 ity [facility] 2020-03-13 2020-03-13 Outpatient R ZITA, [facility] [id number] Univers 13:30:00 13:30:00 JEROME tafoya [facility] 2020-03-05 2020-03-05 Outpatient R HELENE [facility] [id number] Univers 14:00:00 14:00:00 MARY tafoya [facility] 2020-01-29 2020-01-29 Outpatient R GT [facility] [id number] Univers 10:00:00 10:00:00 WONDIFUL ity o f [facility] 2020-01-24 2020-01-24 Outpatient R HENRY, [facility] [id number] Univers 13:00:00 13:00:00 HEATHER tafoya [facility] 2020-01-18 2020-01-18 Outpatient R HENRY [facility] [id number] Univers 13:15:00 13:15:00 HEATHER tafoya [facility] 2020-01-15 2020-01-15 Outpatient R ELINOR JIMENEZ [facility] [id number] Univers 14:30:00 14:30:00 ELINOR JIMENEZ michelet [facility] 2020-01-11 2020-01-11 Outpatient R ELAINE [facility] [id number] Univers 14:15:00 14:15:00 HEATHER [facility] 2019-12-19 2019-12-19 Outpatient R BIBI [facility] [id number] Univers 10:00:00 10:00:00 GITAJUN ity o f [facility] 2019-12-13 2019-12-13 Outpatient R ELINOR JIMENEZ [facility] V[facility] [id number] Univers 07:19:00 09:45:00 ELINOR JIMENEZ michelet [facility] 2019-12-10 2019-12-10 Outpatient R AMADA [facility] [id number] Univers 16:00:00 16:00:00 ZARA michelet [facility] 2019-12-08 2019-12-08 Outpatient R GT [facility] [id number] Univers 16:15:00 16:15:00 WONDIFUL ity o f [facility] 2019-11-28 2019-11-28 Outpatient R ELINOR JIMENEZ [facility] [id number] Univers 13:30:00 13:30:00 ELINOR JIMENEZ [facility] 2019-11-23 2019-11-23 Outpatient Serjio NARAYAN [facility] [id number] Univers 10:30:00 10:30:00 MARY tafoya [facility] 2019-11-06 2019-11-06 Outpatient Serjio GT, [facility] [id number] Univers 13:45:00 13:45:00 WONDIFUL ity o f [facility] 2019-10-31 2019-10-31 Outpatient Serjio NARAYAN [facility] [id number] Univers 12:29:42 23:59:00 MARY bonnie [facility] 2019-10-24 2019-10-24 Outpatient Serjio ARAUJONARAYAN, [facility] [id number] Univers 13:30:00 13:30:00 MARY tafoya [facility] 2019-09-20 2019-09-20 Outpatient Serjio NAIMA [facility] [id number] Univers 13:30:00 13:30:00 ORIN [facility] 2019-09-18 2019-09-18 Outpatient Serjio GT, [facility] [id number] Univers 16:15:00 16:15:00 WONDIFUL ity o f [facility] 2019-09-12 2019-09-12 Outpatient Serjio NARAYAN [facility] [id number] Univers 14:45:00 14:45:00 MARY bonnie [facility] 2019-09-08 2019-09-08 Outpatient Serjio GT [facility] [id number] Univers 11:15:00 11:15:00 WONDIFUL ity o f [facility] 2018-10-03 2018-10-03 Outpatient Serjio GT [facility] [id number] Univers 12:17:25 14:32:00 WONDIFUL ity o f [facility] Results Test Description Test Time Test Comments Results Result Comments Source POCT SARS-COV-2 ANTIGEN (BINAX NOW) 2022-05-19 22:25:00 Test Item Value Reference Range Interpretation Comme nts POCT SARS-COV-2 ANTIGEN (test code Not Detected Not Detected = 44162-0) On board controls acceptable with Yes C Line (test code = 3574) MARIO (test code = MARIO) accurate development and interpretation of all internal controls Lab Interpretation (test code = Normal 50680-7) [facility], [id number] 18:16:00 Test Item Value Reference Range Interpretation Comments POCT U SP GRAV (test code = 1.015 mg/dl 1.005-1.025 3255) POCT PH U (test code = 3254) 5.5 mg/dl 5-8 POCT U LEUK EST (test code = negative Negative - Negative 3263) POCT U NIT (test code = 3262) negaitve Negative - Negative POCT U PROT (test code = negative Negative - Negative 3259) POCT U GLU (test code = 3256) negative Negative - Negative POCT U KETONE (test code = negative Negative - Negative 3258) POCT U UROBILI (test code = 0.2 mg/dl 0.2-1 3260) POCT U BILI (test code = negative Negative - Negative 3261) POCT U BLD (test code = 3257) negative Negative - Negative POCT U COLOR (test code = yellow 3266) POCT U APPEAR (test code = clear 3267) [facility] URINALYSIS, [id number] 18:16:00 Test Item Value Reference Range Interpretation Comments POCT U SP GRAV (test code = 1.015 mg/dl 1.005-1.025 3255) POCT PH U (test code = 3254) 5.5 mg/dl 5-8 POCT U LEUK EST (test code = negative Negative - Negative 3263) POCT U NIT (test code = 3262) negaitve Negative - Negative POCT U PROT (test code = negative Negative - Negative 3259) POCT U GLU (test code = 3256) negative Negative - Negative POCT U KETONE (test code = negative Negative - Negative 3258) POCT U UROBILI (test code = 0.2 mg/dl 0.2-1 3260) POCT U BILI (test code = negative Negative - Negative 3261) POCT U BLD (test code = 3257) negative Negative - Negative POCT U COLOR (test code = yellow 3266) POCT U APPEAR (test code = clear 3267) [facility] URINALYSIS, [id number] 13:34:00 Test Item Value Reference Range Interpretation Comments POCT U SP GRAV (test code = 1.015 mg/dl 1.005-1.025 3255) POCT PH U (test code = 3254) 5.0 mg/dl 5-8 POCT U LEUK EST (test code = Negative Negative - Negative 3263) POCT U NIT (test code = 3262) Negative Negative - Negative POCT U PROT (test code = Negative Negative - Negative 3259) POCT U GLU (test code = 3256) Negative Negative - Negative POCT U KETONE (test code = Negative Negative - Negative 3258) POCT U UROBILI (test code = 0.2 mg/dl 0.2-1 3260) POCT U BILI (test code = Negaitve Negative - Negative 3261) POCT U BLD (test code = 3257) Negative Negative - Negative POCT U COLOR (test code = Yellow 3266) POCT U APPEAR (test code = Clear 3267) [facility] [id number] 13:34:00 Test Item Value Reference Range Interpretation Comments POCT U SP GRAV (test code = 1.015 mg/dl 1.005-1.025 3255) POCT PH U (test code = 3254) 5.0 mg/dl 5-8 POCT U LEUK EST (test code = Negative Negative - Negative 3263) POCT U NIT (test code = 3262) Negative Negative - Negative POCT U PROT (test code = Negative Negative - Negative 3259) POCT U GLU (test code = 3256) Negative Negative - Negative POCT U KETONE (test code = Negative Negative - Negative 3258) POCT U UROBILI (test code = 0.2 mg/dl 0.2-1 3260) POCT U BILI (test code = Negaitve Negative - Negative 3261) POCT U BLD (test code = 3257) Negative Negative - Negative POCT U COLOR (test code = Yellow 3266) POCT U APPEAR (test code = Clear 3267) [facility]
[2022-07-27] MEDS ORDERED: AZITHROMYCIN 500 MG INJ IVPB ONE (21:40)
[2022-07-27] MEDS ORDERED: NA CHLORIDE 0.9% 1,000 ML ONE (21:40)
[2022-07-27] MEDS ORDERED: CEFTRIAXONE 1000 MG/VIAL ONE (21:40)
[2022-07-27] MEDS ORDERED: NA CHLORIDE 0.9% 250 ML ONE (21:40)
[2022-07-27] MEDS ORDERED: FAMOTIDINE 20 MG/2 ML VIAL IV ONE (21:41)
[2022-07-27] MEDS ORDERED: NA CHLORIDE 0.9% 500 ML ONE (21:41)
[2022-07-27 21:53] LABS: Absolute Lymphocytes (CBC) 0.6 K/uL (0.7-4.9); MPV 8.3 fL (7.6-11.3); RBC Red Blood Cell Count 4.18 M/uL (4.33-5.43)
[2022-07-27 22:03] LABS: Protime INR 1.13
[2022-07-27 22:06] LABS: Bilirubin Direct 0.1 mg/dL (0-0.2); Bilirubin Total 0.4 mg/dL (0.2-1.0); C-Reactive Protein 71.9 mg/L (<3.00); Magnesium 1.9 mg/dL (1.6-2.4); Potassium 3.7 mmol/L (3.5-5.1); Protein, Total 6.1 g/dL (6.4-8.2); Thyroid Stimulating Hormone 0.304 uIU/mL (0.358-3.740); Troponin High Sensitivity 20.9 pg/mL (<58.9)
--- NOTE | 2022-07-27 22:41 | RAD REPORT ---
EXAM DESCRIPTION: CT - Chest For Pe Angio - 07/27/2022 10:27 pm CLINICAL HISTORY: cough COMPARISON: None. TECHNIQUE: Dynamically enhanced axial 3 mm thick images of the chest were obtained during administra tion of 100 mL Isovue 370 IV contrast. Coronal and oblique reconstruction images were generated and r eviewed. Exam utilizes a protocol for optimal evaluation of pulmonary arterial tree. Maximum intensity projections 3D imaging was utilized All CT scans are performed using dose optimization technique as appropriate and may include automated exposure control or mA/KV adjustment according to patient size. FINDINGS: A pulmonary embolus is not seen. A thoracic aortic aneurysm is not noted. A pleural effusion is not seen. A pericardial effusion is not seen. A lung consolidation is not present. IMPRESSION: Negative for a pulmonary embolism.
--- NOTE | 2022-07-27 22:42 | RAD REPORT ---
EXAM DESCRIPTION: Esther Single View07/27/2022 9:22 pm CLINICAL HISTORY: Chest pain COMPARISON: 2020 FINDINGS: The lungs appear clear of acute infiltrate. The heart is borderline enlarged IMPRESSION: No acute abnormalities displayed
--- NOTE | 2022-07-27 23:41 | EDPHYS ---
Physician Documentation [facility] Name: Dave Moreland Age: 82 yrs Sex: Male : 1940 Arrival Date: 07/27/2022 Time: 20:47 Bed 15 Private MD: ED Physician Jalil Silva HPI: 07/27 23:30 This 82 yrs old Male presents to ER via EMS with complaints of fever , covid jaxon positive and weakness. 23:30 The patient or guardian reports cough, difficulty breathing, flu symptoms, arthralgias, jaxon low-grade fever, myalgias. Onset: The symptoms/episode began/occurred 2 day(s) ago. Modifying factors: The symptoms are alleviated by nothing. the symptoms are aggravated by nothing. The patient reports fever, that was measured at 104 degrees Fahrenheit. Modifying factors: there are no obvious modifying factors. Severity of symptoms: At their worst the symptoms were mild in the emergency department the symptoms are unchanged. Historical: - Allergies: 20:52 Codeine; kd3 - PMHx: 20:52 Hypertension; Hyperlipidemia; Diabetes - NIDDM; GERD; Myocardial infarction; prostate kd3 problems; - Immunization history:: Adult Immunizations up to date. - Social history:: Smoking status: Patient denies any tobacco usage or history of. - Family history:: not pertinent. ROS: 23:30 Constitutional: Negative for fever, chills, and weight loss, Eyes: Negative for injury, jaxon pain, redness, and discharge, ENT: Negative for injury, pain, and discharge, Neck: Negative for injury, pain, and swelling, Cardiovascular: Negative for chest pain, palpitations, and edema, Abdomen/GI: Negative for abdominal pain, nausea, vomiting, diarrhea, and constipation, Back: Negative for injury and pain, : Negative for injury, bleeding, discharge, and swelling, MS/Extremity: Negative for injury and deformity, Skin: Negative for injury, rash, and discoloration, Neuro: Negative for headache, weakness, numbness, tingling, and seizure. 23:30 Respiratory: Positive for cough, with no reported sputum. 23:30 Neuro: Positive for weakness. Exam: 23:30 Constitutional: This is a well developed, well nourished patient who is awake, alert, jaxon and in no acute distress. Head/Face: Normocephalic, atraumatic. Eyes: Pupils equal round and reactive to light, extra-ocular motions intact. Lids and lashes normal. Conjunctiva and sclera are non-icteric and not injected. Cornea within normal limits. Periorbital areas with no swelling, redness, or edema. ENT: Nares patent. No nasal discharge, no septal abnormalities noted. Tympanic membranes are normal and external auditory canals are clear. Oropharynx with no redness, swelling, or masses, exudates, or evidence of obstruction, uvula midline. Mucous membranes moist. Neck: Trachea midline, no thyromegaly or masses palpated, and no cervical lymphadenopathy. Supple, full range of motion without nuchal rigidity, or vertebral point tenderness. No Meningismus. Chest/axilla: Normal chest wall appearance and motion. Nontender with no deformity. No lesions are appreciated. Respiratory: Lungs have equal breath sounds bilaterally, clear to auscultation and percussion. No rales, rhonchi or wheezes noted. No increased work of breathing, no retractions or nasal flaring. Abdomen/GI: Soft, non-tender, with normal bowel sounds. No distension or tympany. No guarding or rebound. No evidence of tenderness throughout. Back: No spinal tenderness. No costovertebral tenderness. Full range of motion. Male : Normal genitalia with no discharge or lesions. Skin: Warm, dry with normal turgor. Normal color with no rashes, no lesions, and no evidence of cellulitis. MS/ Extremity: Pulses equal, no cyanosis. Neurovascular intact. Full, normal range of motion. Neuro: Awake and alert, GCS 15, oriented to person, place, time, and situation. Cranial nerves II-XII grossly intact. Motor strength 5/5 in all extremities. Sensory grossly intact. Cerebellar exam normal. Normal gait. Psych: Awake, alert, with orientation to person, place and time. Behavior, mood, and affect are within normal limits. 23:30 Cardiovascular: Rate: normal, Rhythm: irregularly irregular, Pulses: Pulses are 4+ in bilateral radial, brachial, femoral, popliteal, posterior tibial and and dorsalis pedis arteries.. Heart sounds: normal, Edema: 23:30 ECG was reviewed by the Attending Physician. Vital Signs: 20:48 BP 122 / 85; Pulse 86; Resp 19; Temp 99.1(O); Pulse Ox 98% on R/A; Weight 83.91 kg; kd3 Height 5 ft. 10 in. (177.80 cm); Pain 0/10; 22:00 BP 114 / 66; Pulse 79; Resp 19 S; Pulse Ox 100% on R/A; as6 23:06 BP 109 / 73; Pulse 85; Resp 16 S; Temp 99.0(O); Pulse Ox 100% on R/A; as6 23:55 BP 111 / 74; Pulse 75; Resp 17 S; Pulse Ox 100% on R/A; as6 20:48 Body Mass Index 26.54 (83.91 kg, 177.80 cm) kd3 MDM: 20:57 Patient medically screened. jaxon 23:44 Differential diagnosis: obstructed airway, bronchitis, flu, URI, viral Infection, jaxon bacterial infection, URI, bronchitis, pneumonia. Antibiotic administration: The patient is discharged and will get outpatient antibiotics, Zithromax. Data reviewed: vital signs, nurses notes, lab test result(s), EKG, radiologic studies, CT scan, plain films. Consideration of Admission/Observation Patient was admitted/placed on observation. Escalation of care including admission/observation considered. Independent interpretation of the following test(s) in the Emergency Department property assessment monitor: rate is 85 beats/min, Rhythm is atrial fibrillation. Test considered but Not performed: Ultrasound us bilateral le. MRI: mri chest. Care significantly affected by the following chronic conditions: Diabetes, Hypertension, Obesity. 07/27 20:59 Order name: Basic Metabolic Panel [facility] 07/27 20:59 Order name: CBC with Diff jaxon 07/27 20:59 Order name: LFT's 07/27 20:59 Order name: Magnesium 07/27 20:59 Order name: NT PRO-BNP jaxon 07/27 20:59 Order name: PT-INR [facility] 07/27 20:59 Order name: Troponin HS [facility] 07/27 20:59 Order name: Lipase jaxon 07/27 20:59 Order name: CRP jaxon 07/27 21:00 Order name: Blood Culture Adult (2) [facility] 07/27 21:00 Order name: Lactate w/ 2H reflex if indic. jaxon 07/27 21:16 Order name: TSH mw2 07/27 21:59 Order name: CBC with Automated Diff; Complete Time: 23:11 EDMS 07/27 22:00 Order name: Lactate w/ 2H reflex if indic.; Complete Time: 23:11 EDAL 07/27 20:59 Order name: XRAY Chest (1 view) [facility] 07/27 20:59 Order name: CT Chest For PE Angio [facility] 07/27 22:03 Order name: Protime (+INR); Complete Time: 23:11 EDAL 02 22:06 Order name: Basic Metabolic Panel; Complete Time: 23:11 EDAL 07/27 22:06 Order name: Liver (Hepatic) Function; Complete Time: 23:11 EDAL 07/27 22:06 Order name: Troponin High Sensitivity; Complete Time: 23:11 EDMS 07/27 22:06 Order name: NT PRO-BNP; Complete Time: 23:11 EDAL 07/27 22:06 Order name: C-Reactive Protein; Complete Time: 23:11 EDMS 07/27 22:06 Order name: Magnesium; Complete Time: 23:11 EDAL 07/27 22:06 Order name: Lipase; Complete Time: 23:11 [facility] 07/27 22:06 Order name: Thyroid Stimulating Hormone; Complete Time: 23:11 EDAL 07/27 22:44 Order name: CT; Complete Time: 23:11 EDMS 07/27 22:47 Order name: RAD; Complete Time: 23:11 EDAL 07/27 23:54 Order name: CREATININE WHOLE BLOOD EDAL 07/27 20:59 Order name: EKG; Complete Time: 21:01 [facility] 07/27 20:59 Order name: Cardiac monitoring; Complete Time: 21:16 [facility] 07/27 20:59 Order name: EKG - Nurse/Tech; Complete Time: 21:16 [facility] 07/27 20:59 Order name: IV Saline Lock; Complete Time: 21:16 [facility] 07/27 20:59 Order name: Labs collected and sent; Complete Time: 21:35 [facility] 07/27 20:59 Order name: O2 Per Protocol; Complete Time: 21:16 [facility] 07/27 20:59 Order name: O2 Sat Monitoring; Complete Time: 21:16 [facility] EC:30 Rate is 80 beats/min. Rhythm is irregularly irregular. QRS [place] is Normal. RI interval jaxon is normal. QRS interval is normal. QT interval is normal. No Q waves. T waves are Normal. No ST changes noted. Clinical impression: Atrial Fibrillation and No evidence of ischemia. Interpreted by me. Reviewed by me. Administered Medications: 23:43 Discontinued: NS 0.9% 1000 ml IV at 125 ml/hr continuous as6 21:40 Drug: NS 0.9% 500 ml Route: IV; Rate: bolus; Site: right forearm; as6 23:42 Follow up: Response: No adverse reaction; IV Status: Completed infusion; IV Intake: as6 500ml 21:40 Drug: NS 0.9% 1000 ml Route: IV; Rate: 125 ml/hr; Site: right forearm; as6 07/28 00:02 Follow up: Response: No adverse reaction; Marked relief of symptoms; IV Status: pf1 Completed infusion; IV Intake: 500ml 07/27 21:40 Drug: Pepcid (famotidine) 40 mg Route: IVP; Site: right forearm; as6 23:43 Follow up: Response: No adverse reaction as6 21:47 Drug: Zithromax (azithromycin) 500 mg Route: IVPB; Infused Over: 1 hrs; Site: right as6 forearm; 23:42 Follow up: Response: No adverse reaction; IV Status: Completed infusion; IV Intake: as6 250ml 21:47 Drug: Rocephin (cefTRIAXone) 1 grams Route: IV; Rate: per protocol; Site: right forearm;as6 23:43 Follow up: Response: No adverse reaction; IV Status: Completed infusion; IV Intake: [id number] Disposition Summary: 07/27/22 23:40 Discharge Ordered Location: Home jaxon Problem: new jaxon Symptoms: have improved jaxon Condition: Stable jaxon Diagnosis - Coronavirus infection, unspecified jaxon - SARS-associated coronavirus as the cause of diseases classified elsewhere jaxon - Fever, unspecified jaxon - Acute upper respiratory infection, unspecified jaxon - Chronic atrial fibrillation jaxon Followup: jaxon - With: Private Physician - When: 2 - 3 days - Reason: Recheck today's complaints, Continuance of care, Re-evaluation by your physician Followup: jaxon - With: Alfred Francois MD - When: 2 - 3 days - Reason: Recheck today's complaints, Continuance of care, Re-evaluation by your physician Discharge Instructions: - Discharge Summary Sheet jaxon - Fever, Adult jaxon - Upper Respiratory Infection, Adult jaxon - Cool Mist Vaporizer jaxon - Upper Respiratory Infection, Adult, [id number] jaxon - Aspirin and Your Heart jaxon - Cough, Adult jaoxn - Atrial Fibrillation, [id number]-eg-Imae jaxon - COVID-19 jaxon - 10 Things You Can Do to Manage Your COVID-19 Symptoms at Home - [facility] Forms: - Medication Reconciliation Form jaxon - Thank You Letter jaxon - Antibiotic Education jaxon - Prescription Opioid Use jaxon Prescriptions: - Paxlovid (EUA) 150 mg x 2- 100 mg Oral tablet - take 3 tablet by ORAL route 2 times per day for 5 days per package directions; jaxon 30 tablet; Refills: 0, Product Selection Permitted - budesonide 180 mcg/actuation Inhalation aerosol powdr breath activated - inhale 2 puff by INHALATION route 2 times per day; 1 Pump; Refills: 0, Product jaxon Selection Permitted - Tessalon Perles 100 mg Oral Capsule - take 2 capsule by ORAL route every 8 hours As needed; 40 capsule; Refills: 0, [facility] Product Selection Permitted - Pepcid 20 mg Oral Tablet - take 1 tablet by ORAL route every 12 hours for 21 days; 42 tablet; Refills: 0, [facility] Product Selection Permitted - Zithromax 500 mg Oral Tablet - take 1 tablet by ORAL route once daily for 5 days; 5 tablet; Refills: 0, [facility] Product Selection Permitted Signatures: Dispatcher [employer] EDJalil Peters MD MD cha Slawson, Ashby RN RN as6 Salina Shore RN RN kd3 Deyanira montague RN pf1
--- NOTE | 2022-07-27 23:41 | ER ---
Nurse's Notes [facility] Name: Dave Moreland Age: 82 yrs Sex: Male : 1940 Arrival Date: 07/27/2022 Time: 20:47 Bed 15 Private MD: Diagnosis: Coronavirus infection, unspecified;SARS-associated coronavirus as the cause of diseases classified elsewhere;Fever, unspecified;Acute upper respiratory infection, unspecified;Chronic atrial fibrillation Presentation: 07/27 20:48 Chief complaint: EMS states: PT was diagnosed with COVID yesterday at [facility]. PT kd3 had 104.4 degree fever at home and was feeling very nauseous and weak. Pt took a gram of Tylenol at home. on arrival pt temp was 98.8. $ mg of Zofran was administered in route as well as some IV fluids. pt states that he feels much better now. pt is a known diabetic and bs was 189 in the ambulance. Coronavirus screen: Vaccine status: Patient reports being unvaccinated. Ebola Screen: No symptoms or risks identified at this time. Initial Sepsis Screen: Does the patient meet any 2 criteria? No. Patient's initial sepsis screen is negative. Does the patient have a suspected source of infection? No. Patient's initial sepsis screen is negative. Risk Assessment: Do you want to hurt yourself or someone else? Patient reports no desire to harm self or others. Onset of symptoms was July 27, 2022. 20:48 Method Of Arrival: EMS: [facility] kd3 20:48 Acuity: CLARK 4 kd3 Triage Assessment: 20:52 General: Appears in no apparent distress. Behavior is calm, cooperative. Pain: Denies kd3 pain. Historical: - Allergies: 20:52 Codeine; kd3 - PMHx: 20:52 Hypertension; Hyperlipidemia; Diabetes - NIDDM; GERD; Myocardial infarction; prostate kd3 problems; - Immunization history:: Adult Immunizations up to date. - Social history:: Smoking status: Patient denies any tobacco usage or history of. - Family history:: not pertinent. Screenin:16 [facility] ED Fall Risk Assessment (Adult) Score/Fall Risk Level 0 - 2 = Low Risk. Abuse as6 screen: Denies threats or abuse. Denies injuries from another. Nutritional screening: No deficits noted. Tuberculosis screening: No symptoms or risk factors identified. Assessment: 21:00 General: Appears in no apparent distress. Behavior is calm, cooperative, Reports fever as6 for feeling ill for fatigue for. Pain: Complains of pain in left leg. Neuro: Level of Consciousness is awake, alert, obeys commands, Oriented to person, place, time, situation. Cardiovascular: Capillary refill < 3 seconds Patient's skin is warm and dry. Respiratory: Respiratory effort is even, unlabored, Respiratory pattern is regular, symmetrical, Breath sounds are clear bilaterally. GI: Abdomen is round. 23:08 Reassessment: Patient appears in no apparent distress at this time. Patient and/or as6 family updated on plan of care and expected duration. Pain level reassessed. 23:54 General: discharge pending transportation . as6 Vital Signs: 20:48 BP 122 / 85; Pulse 86; Resp 19; Temp 99.1(O); Pulse Ox 98% on R/A; Weight 83.91 kg; kd3 Height 5 ft. 10 in. (177.80 cm); Pain 0/10; 22:00 BP 114 / 66; Pulse 79; Resp 19 S; Pulse Ox 100% on R/A; as6 23:06 BP 109 / 73; Pulse 85; Resp 16 S; Temp 99.0(O); Pulse Ox 100% on R/A; as6 23:55 BP 111 / 74; Pulse 75; Resp 17 S; Pulse Ox 100% on R/A; as6 20:48 Body Mass Index 26.54 (83.91 kg, 177.80 cm) kd3 ED Course: 20:47 Patient arrived in ED. jh5 20:52 Triage completed. kd3 20:52 Arm band placed on right wrist. kd3 20:57 Jalil Silva MD is Attending Physician. jaxon 21:03 Blake Briones RN is Primary Nurse. as6 21:30 Inserted saline lock: 18 gauge in right forearm, using aseptic technique. Blood as6 collected. Maintain EMS IV. Dressing intact. Good blood return noted. Site clean \T\ dry. Gauge \T\ site: 18G left AC. 21:35 TSH Sent. as6 21:35 Lactate w/ 2H reflex if indic. Sent. as6 21:35 Blood Culture Adult (2) Sent. as6 21:35 CRP Sent. as6 21:35 Lipase Sent. as6 21:35 Basic Metabolic Panel Sent. as6 21:35 CBC with Diff Sent. as6 21:35 LFT's Sent. as6 21:35 Magnesium Sent. as6 21:35 NT PRO-BNP Sent. as6 21:35 PT-INR Sent. as6 21:35 Troponin HS Sent. as6 22:16 Bed in low position. Call light in reach. Side rails up X2. Client placed on continuous as6 cardiac and pulse oximetry monitoring. NIBP monitoring applied. Warm blanket given. 23:39 Alfred Francois MD is Referral Physician. [facility] 23:43 No provider procedures requiring assistance completed. as6 07/28 00:00 IV discontinued, intact, bleeding controlled, No redness/swelling at site. Pressure pf1 dressing applied, bilateral IV removed. Administered Medications: 07/27 23:43 Discontinued: NS 0.9% 1000 ml IV at 125 ml/hr continuous as6 21:40 Drug: NS 0.9% 500 ml Route: IV; Rate: bolus; Site: right forearm; as6 23:42 Follow up: Response: No adverse reaction; IV Status: Completed infusion; IV Intake: as6 500ml 21:40 Drug: NS 0.9% 1000 ml Route: IV; Rate: 125 ml/hr; Site: right forearm; as6 07/28 00:02 Follow up: Response: No adverse reaction; Marked relief of symptoms; IV Status: pf1 Completed infusion; IV Intake: 500ml 02 21:40 Drug: Pepcid (famotidine) 40 mg Route: IVP; Site: right forearm; as6 23:43 Follow up: Response: No adverse reaction as 21:47 Drug: Zithromax (azithromycin) 500 mg Route: IVPB; Infused Over: 1 hrs; Site: right as6 forearm; 23:42 Follow up: Response: No adverse reaction; IV Status: Completed infusion; IV Intake: as6 250ml 21:47 Drug: Rocephin (cefTRIAXone) 1 grams Route: IV; Rate: per protocol; Site: right forearm;as6 23:43 Follow up: Response: No adverse reaction; IV Status: Completed infusion; IV Intake: [id number] Medication: 22:49 VIS not applicable for this client. as6 Intake: 23:42 IV: 500ml; Total: 500ml. as6 23:42 IV: 250ml; Total: 750ml. as6 23:43 IV: 10ml; Total: 760ml. as6 07/28 00:02 IV: 500ml; Total: 1260ml. pf1 Outcome: 07/27 23:40 Discharge ordered by MD. coates 23:43 Condition: stable as6 23:59 Discharged to home awaiting for ride pf1 23:59 Condition: stable 23:59 Discharge instructions given to patient. 23:59 Discharge instructions given to patient, Instructed on discharge instructions, follow up and referral plans. medication usage, Demonstrated understanding of instructions, follow-up care, medications, Prescriptions given X 5 prescriptions 07/28 00:14 Patient left the ED. as6 Signatures: Jalil Silva MD MD cha Rees, Jessica, RN RN jh5 Blake Briones, EVETTE RN as6 Salina Shore, RN RN kd3 Deyanira montague RN RN pf1
[2022-07-28 00:38] VITALS: O2SAT 100
[2022-07-28 00:39] VITALS: TEMP 99
[2022-07-28 00:40] VITALS: BP 111/74
== END 2022-07-28 00:14 | disposition home or self-care (01) ==
LOC: ER 20:46
DX: U07.1 COVID-19 (principal); J06.9 Acute upper respiratory infection, unspecified; I48.20 Chronic atrial fibrillation, unspecified; I10 Essential (primary) hypertension; E11.9 Type 2 diabetes mellitus without complications; I25.2 Old myocardial infarction; Z88.5 Allergy status to narcotic agent
CPT/HCPCS: 96365; 96368; 93005; 87040 ×2; 85025; 80048; 36415; 83735; 85610; 82565; 80076; 83605; 84443; 84484; 83690; 83880; 86140; 71275; 71045; 96375; 99284; 96366; Q9967; J0456; J7050; J7040; J7030

== ENCOUNTER 2022-11-12 18:37 | Emergency (ER) | payer OTHER ==
--- OUTSIDE RECORDS SUMMARY | 2022-11-12 18:47 | XMS REPORT | Continuity of Care Document ---
:1940 Author Organization [facility] t Address [address] [place] [address] [address] [place] [address] Care Team Providers Name Role Phone Evelin Wyatt Primary Care Physician FRANKLYN BAÑUELOS Attending Clinician Unavailable KAMRAN HUA K.HEricka Attending Clinician Unavailable MARY NARAYAN Attending Clinician Unavailable GABRIELA MACK Attending Clinician Unavailable EVELIN COLMENARES Attending Clinician Unavailable MEET LUDWIG Attending Clinician Unavailable MEET LUDWIG Attending Clinician Unavailable Doctor Unassigned, [place] Attending Clinician Unavailable Franklyn Bañuelos MD Attending Clinician Evelin Wytat Attending Clinician Lab, Ang - Db Attending Clinician Unavailable Jayden Horan LVN S Attending Clinician Unavailable Keon Scherer MD Attending Clinician JAVIER MORRIS Attending Clinician Unavailable Javier Valentine Attending Clinician Kamran Hua MD K.H. Attending Clinician Kenn Christine MD Attending Clinician Pob, Adc Lab Main Attending Clinician Unavailable FADUMO MCNAMARA Attending Clinician Unavailable Fadumo Mcnamara MD Attending Clinician HALEY CAMEJO Attending Clinician Unavailable Haley Camejo MD Attending Clinician Unknown, Attending Attending Clinician Unavailable Nehal Del Real MD Attending Clinician , [facility] Surg Spec Procedure Attending Clinician Unavailable Nurse, [facility] Surgery Gu Attending Clinician Unavailable Elinor Jimenez MD Attending Clinician ELINOR JIMENEZ Attending Clinician Unavailable ELINOR JIMENEZ Attending Clinician Unavailable GEE BLOUNT Attending Clinician Unavailable GEE BLOUNT Attending Clinician Unavailable Gee Blount MD Attending Clinician EbrahiLuz Maria Ferrer Attending Clinician EBLUZ MARIA MORALES Attending Clinician Unavailable Raul HEATHER, Tamera Attending Clinician RADIOLOGY Attending Clinician Unavailable TAMERA CARTER Attending Clinician Unavailable Km Newton RN Attending Clinician Unavailable PONCHO NOBLES Attending Clinician Unavailable PONCHO NOBLES Attending Clinician Unavailable Fely ARDEN, K Felisha Attending Clinician NESTOR SALDAÑA III Attending Clinician Unavailable NEHAL DEL REAL Attending Clinician Unavailable GISSELLE DURHAM Attending Clinician Unavailable Karlie Jim MD Attending Clinician FLORENTIN THAPA Attending Clinician Unavailable Florentin Bo B Attending Clinician Nurse, [facility] Attending Clinician Unavailable Shyanne Bland MD Attending Clinician SHYANNE BLAND Attending Clinician Unavailable SHYANNE BLAND Attending Clinician Unavailable [facility] Sleep Lab Attending Clinician Unavailable Only, [facility] Test Attending Clinician Unavailable ACE BROWN Attending Clinician Unavailable Ace Hansen Attending Clinician KARLIE JIM Attending Clinician Unavailable CHUCKIE SHEEHAN Attending Clinician Unavailable ANYI DE SANTIAGO Attending Clinician Unavailable JEROME AHUMADA Attending Clinician Unavailable HEATHER HENRY Attending Clinician Unavailable CINDY MTZ Attending Clinician Unavailable ZARA YBARRA Attending Clinician Unavailable ORIN MCNAMARA Attending Clinician Unavailable FRANKLYN BAÑUELOS Admitting Clinician Unavailable MELITA, SENDIL K.H. Admitting Clinician Unavailable MARY NARAYAN Admitting Clinician Unavailable JAVIER MORRIS Admitting Clinician Unavailable Melita FOX, Sendil K.H. Admitting Clinician PONCHO NOBLES WENDY Admitting Clinician Unavailable FLORENTIN THAPA Admitting Clinician Unavailable ELINOR JIMENEZ Admitting Clinician Unavailable NEHAL DEL REAL Admitting Clinician Unavailable Payers Payer Name Policy Type Policy Number Effective Date Expiration Date Saloni gill MEDICARE PART A [id number] 2004 \\T\\ B 00:00:00 NEW [employer] [id number] 2016 00:00:00 Problems Condition Condition Condition Status Onset Resolution Last Treating Co mments Source Name Details Category Date Date Treatment Clinician Date Urinary Urinary Disease Active Overview: Univ ers frequency frequency 4-11 Formattin i ty of 00:00: g of this [place] 00 note Medical might be Branch different from the original. Added automatic ally from request for surgery [id number] Benign Benign Disease Active Overview: Univer s prostatic prostatic - Formattin i ty of hyperplasi hyperplasi 00:00: g of this [place] a with a with 00 note Medical lower lower might be Branch urinary urinary different tract tract from the symptoms, symptoms, original. symptom symptom Added details details automatic unspecifie unspecifie ally from d d request for surgery [id number] Dyslipidem Dyslipidem Disease Active Overview : Univers ia ia 11-18 Formattin ity of 00:00: g of this [place] 00 note Medical might be Branch different from the original. Added automatic ally from request for surgery [id number] RAZO RAZO Disease Active Overview: Univer s (dyspnea (dyspnea 11-18 Formattin ity of on on 00:00: g of this [place] exertion) exertion) 00 note Medi monika might be Branch different from the original. Added automatic ally from request for surgery [id number] Atypical Atypical Disease Active Overview: Un nyla chest pain chest pain 11-18 Formattin ity of 00:00: g of this [place] 00 note Medical might be Branch different from the original. Added automatic ally from request for surgery [id number] Anginal Anginal Disease Active Overview: Univ ers equivalent equivalent 11-18 Formattin ity of 00:00: g of this 00 note Medical might be Branch different from the original. Added automatic ally from request for surgery [id number] Acute Acute Disease Active Univers cardioembo cardioembo 3-11 it y of lic stroke lic [place] PRITESH PRITESH Disease Active 2020-06 Univers (obstructi (obstructi 2-13 it y of ve sleep ve sleep 00:00: [place] apnea) apnea) 00 Medical Branch Iron Iron Disease Active 2020-06 Univers deficiency deficiency 07-12 it y of 00:00: [place] 00 Medical Branch Osteoarthr Osteoarthr Disease Active 2020-06 U nivers itis of itis of 1-16 ity of left left 00:00: [place] shoulder shoulder 00 Medica l Branch Inguinal Inguinal Disease Active Unive rs hernia hernia 12-12 ity of 00:00: [place] 00 Medical Branch Non-recurr Non-recurr Disease Active Overview : Univers ent ent 11-11 Formattin ity of bilateral bilateral 00:00: [place] of this [place] inguinal inguinal 00 note Medica l hernia hernia might be Branch without without different obstructio obstructio from the n or n or original. gangrene gangrene Added automatic ally from request for surgery [id number] Acute Acute Disease Active Univers pancreatit pancreatit 3-01 it y of is is 00:00: [place] 00 Medical Branch COVID-19 COVID-19 Disease Active Unive rs 2- ity of 00:00: [place] 00 Medical Branch Greater Greater Disease Active Overview: Univ ers trochanter trochanter 11-27 Formattin ity of ic ic 00:00: g of this [place] bursitis bursitis 00 note Medica l of left of left might be Branch hip hip different from the original. Added automatic ally from request for surgery [id number] SI SI Disease Active Overview: Univer s (sacroilia (sacroilia 11-27 Formattin ity of c) joint c) joint 00:00: g of this [place] Armando as dysfunctio dysfunctio 00 note Me dical n n might be Branch different from the original. 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 7-02 it y of s s 00:00: [place] [facility] Degenerati Degenerati Disease Active U nivers on of on of 6 ity of lumbar lumbar 00:00: [place] interverte interverte 00 Me dical bral disc bral disc Bran ch Lumbar Lumbar Disease Active Univers radiculopa radiculopa 6-03 it y of thy thy 00:00: [place] [facility] Branch Myofascial Myofascial Disease Active U nivers pain pain 6-03 ity of 00:00: [place] [facility] Elevated Elevated Disease Active Unive rs sed rate sed rate 4-17 ity of 00:00: [place] [facility] Low Low Disease Active Univers ferritin ferritin 3-27 ity of 00:00: [place] [facility] Type 2 Type 2 Disease Active Univers diabetes diabetes 1-17 ity of mellitus mellitus 00:00: [place] with with 00 Medical complicati complicati Br anch on, on, without without long-term long-term current current use of use of insulin insulin Bradycardi Bradycardi Disease Active 2017-06 U nivers a a 2-26 ity of 00:00: [place] 00 Medical Branch Weakness Weakness Disease Active 2017-06 Unive rs 2-26 ity of 00:00: [place] 00 Medical Branch Dizziness Dizziness Disease Active 2017-06 Uni vers 2-26 ity of 00:00: [place] 00 Medical Branch Coronary Coronary Disease Active 2017-06 Unive rs artery artery 2-26 ity of disease disease 00:00: [place] involving involving 00 Medi [place] Branch coronary coronary artery of artery of [place] heart heart without without angina angina pectoris pectoris Essential Essential Disease Active 2017-06 Uni vers hypertensi hypertensi 2-26 it y of on on 00:00: [place] [facility] PAF PAF Disease Active 2017-06 Univers (paroxysma (paroxysma 08-16 it y of l atrial l atrial 00:00: [place] fibrillati fibrillati 00 Me dical on) on) Branch Coronary Coronary Disease Active 2017-06 Unive rs artery artery 2-26 ity of disease disease 00:00: [place] involving involving 00 Medi monika [place] Branch coronary coronary artery of artery of [place] heart heart without without angina angina pectoris pectoris Gastritis Gastritis Disease Active Uni vers 5-25 ity of 00:00: [place] 00 Medical Branch Chronic Chronic Disease Active Univers [...] Unive rs 1-05 ity of 00:00: [place] 00 Medical Branch Low Low Disease Active Univers testostero testostero 1-05 it y of ne ne 00:00: 00 Medical Branch Statin Statin Disease Active Univers intoleranc intoleranc 2-17 it y of e e 00:00: 00 Medical Branch Diabetic Diabetic Disease Active Overview: [...] Status Never Smoker Smokeless Tobacco Never Used 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 Date Diabetic Eye Exam Overdue [...] Anxiety Anxiety Disease Active Univers ity of [place] Medical [place] Allergies, Adverse Reactions, Alerts Allergy Allergy Status Severity Reaction(s) Onset Inactive Treating Comm ents Source Name Type Date Date Clinician Ibuprofe Propensi Active Nausea Patient Unive rs n ty to and/or 06-28 notes hx ity of adverse Vomiting 00:00: of [place] reaction 00 stentsAbd Medic al s ominal Branch discomfor t when taking ibuprofen IBUPROFE DRUG Active N/V Univers N INGREDI 06-28 ity of 00:00: [place] 00 Medical Branch Glimepir Propensi Active Anxiety Unive rs lucia ty to 2-09 ity of adverse 00:00: [place] reaction 00 Medical s Branch GLIMEPIR DRUG Active Anxiety Univers LUCIA INGREDI -09 ity of 00:00: [place] 00 Medical Branch [...] s Branch rs Codeine Propensi Active Rash 2017-06 Univers ty to 2-26 ity of adverse 00:00: [place] reaction 00 Medical s Branch CODEINE DRUG Active Rash 2017-06 Univers INGREDI 08-16 ity of 00:00: [place] 00 Medical [place] Canaglif Propensi Active Other - See Genital Univers lozin ty to comments 01-18 mycotic ity of adverse 00:00: infection [place] reaction 00 s [facility] s Branch CANAGLIF DRUG Active Other-Cmnt Univ ers LOZIN INGREDI 01-18 ity of 00:00: [place] 00 Medical [place] Social History Social Habit Start Date Stop Date Quantity Comments Source Exposure to 2022-09-19 2022-09-29 Not sure [facility] SARS-CoV-2 00:00:00 10:55:00 [facility] (event) [place] Alcohol intake 2022-09-29 2022-09-29 Current University 00:00:00 00:00:00 non-drinker of [facility] alcohol (finding) [place] Tobacco use and 2021-12-30 2021-12-30 Smokeless tobacco Un iversity of exposure 00:00:00 00:00:00 non-user [facility] Sex [birth year] Universit y of 00:00:00 00:00:00 [facility] Smoking Status Start Date Stop Date Source Never smoked tobacco [facility] Medications Ordered Filled Start Stop Current Ordering Indication Dosage Frequency Signature Comments Components Source Medication Medication Date Date Medication? Clinician (SIG) Name Name [facility] Yes [id number] USE TWICE Univers MICROFILL 4-05 DAILY FOR ity o f strip 00:00: BLOOD [place] GLUCOSE Medical MONITORING [facility] Yes [id number] USE TWICE Univers MICROFILL 4-05 DAILY FOR ity o f strip 00:00: BLOOD [place] [facility] Medical MONITORING [facility] Yes [id number] USE TWICE Univers MICROFILL 4-05 DAILY FOR ity o f strip 00:00: BLOOD [place] [facility] Medical MONITORING [facility] 0 Yes [id number] USE TWICE Univers MICROFILL 4-05 DAILY FOR ity o f strip 00:00: BLOOD [place] [facility] Medical MONITORING [facility] Yes [id number] USE TWICE Univers MICROFILL 4-05 DAILY FOR ity o f strip 00:00: BLOOD [place] 00 GLUCOSE Medical MONITORING Branch ASCENSIA 2022-0 Yes [id number] USE TWICE Univers MICROFILL 4-05 DAILY FOR ity o f strip 00:00: BLOOD [place] 00 GLUCOSE Medical MONITORING Branch ASCENSIA 2022-0 Yes [id number] USE TWICE Univers MICROFILL 4-05 DAILY FOR ity o f strip 00:00: BLOOD [place] 00 GLUCOSE Medical MONITORING Branch Insulin 2022-0 Yes [id number] Use as Univ ers [place], 3-30 directed ity of Disposable, 00:00: twice [place] (PEN 00 daily to Medical NEEDLE) 32 inject Branch gauge x insulin; " Ndle ICD-10 E11.65 blood sugar Yes [id number] USE TWICE Univers diagnostic 3-30 DAILY FOR ity of (ASCENSIA 00:00: BLOOD [place] MICROFILL) 00 GLUCOSE Medica l strip MONITORING Branch Insulin Asp Yes [id number] INJECT 20 Univers Prt-Insulin 3-30 UNITS ity of Aspart 00:00: UNDER THE [place] (NOVOLOG 00 SKIN 2 Medical MIX 70-30) (TWO) Branch 100 unit/mL TIMES (70-30) DAILY injection BEFORE BREAKFAST AND DINNER. Insulin Yes [id number] Use as Univ ers [place], 3-30 directed ity of Disposable, 00:00: twice [place] (PEN 00 daily to Medical NEEDLE) 32 inject Branch gauge x insulin; " Ndle ICD-10 E11.65 blood sugar 0 Yes [id number] USE TWICE Univers diagnostic 3-30 DAILY FOR ity of (ASCENSIA 00:00: BLOOD [place] MICROFILL) 00 GLUCOSE Medica l strip MONITORING Branch Insulin Asp 2022- Yes [id number] INJECT 28 Univers Prt-Insulin 3-30 UNITS ity of Aspart 00:00: UNDER THE [place] (NOVOLOG 00 SKIN 2 Medical MIX 70-30) (TWO) Branch 100 unit/mL TIMES (70-30) DAILY injection BEFORE BREAKFAST AND DINNER. lisinopriL Yes [id number] 20mg Take 1 U nivers 20 mg 3-30 tablet by ity of tablet 00:00: mouth in [place] 00 the Medical morning. Branch Insulin 2022-0 Yes [id number] Use as Univ ers [place], 3-30 directed ity of Disposable, 00:00: twice [place] (PEN 00 daily to Medical NEEDLE) 32 inject Branch gauge x insulin; " Ndle ICD-10 E11.65 blood sugar 2022-0 Yes [id number] USE TWICE Univers diagnostic 3-30 DAILY FOR ity of (ASCENSIA 00:00: BLOOD [place] MICROFILL) 00 GLUCOSE Medica l strip MONITORING Branch Insulin Asp 2022-0 Yes [id number] INJECT 28 Univers Prt-Insulin 3-30 UNITS ity of Aspart 00:00: UNDER THE [place] (NOVOLOG 00 SKIN 2 Medical MIX 70-30) (TWO) Branch 100 unit/mL TIMES (70-30) DAILY injection BEFORE BREAKFAST AND DINNER. lisinopriL 2022-0 Yes [id number] 20mg Take 1 U nivers 20 mg 3-30 tablet by ity of tablet 00:00: mouth in [place] 00 the Medical morning. Branch Insulin 2022-0 Yes [id number] Use as Univ ers [place], 3-30 directed ity of Disposable, 00:00: twice [place] (PEN 00 daily to Medical NEEDLE) 32 inject Branch gauge x insulin; " Ndle ICD-10 E11.65 blood sugar Yes [id number] USE TWICE Univers diagnostic 3-30 DAILY FOR ity of (ASCENSIA 00:00: BLOOD [place] MICROFILL) 00 GLUCOSE Medica l strip MONITORING Branch Insulin Asp 2022-0 Yes [id number] INJECT 28 Univers Prt-Insulin 3-30 UNITS ity of Aspart 00:00: UNDER THE [place] (NOVOLOG 00 SKIN 2 Medical MIX 70-30) (TWO) Branch 100 unit/mL TIMES (70-30) DAILY injection BEFORE BREAKFAST AND DINNER. lisinopriL 2022-0 Yes [id number] 20mg Take 1 U nivers 20 mg 3-30 tablet by ity of tablet 00:00: mouth in [place] 00 the Medical morning. Branch Insulin 2022-0 Yes [id number] Use as Univ ers [place], 3-30 directed ity of Disposable, 00:00: twice [place] (PEN 00 daily to Medical NEEDLE) 32 inject Branch gauge x insulin; " Ndle ICD-10 E11.65 blood sugar 2022-0 Yes [id number] USE TWICE Univers diagnostic 3-30 DAILY FOR ity of (ASCENSIA 00:00: BLOOD [place] MICROFILL) 00 GLUCOSE Medica l strip MONITORING Branch Insulin Asp 2022-0 Yes [id number] INJECT 28 Univers Prt-Insulin 3-30 UNITS ity of Aspart 00:00: UNDER THE [place] (NOVOLOG 00 SKIN 2 Medical MIX 70-30) (TWO) Branch 100 unit/mL TIMES (70-30) DAILY injection BEFORE BREAKFAST AND DINNER. lisinopriL 2022-0 Yes [id number] 20mg Take 1 U nivers 20 mg 3-30 tablet by ity of tablet 00:00: mouth in [place] 00 the Medical morning. Branch Insulin 2022-0 Yes [id number] Use as Univ ers [place], 3-30 directed ity of Disposable, 00:00: twice [place] (PEN 00 daily to Medical NEEDLE) 32 inject Branch gauge x insulin; " Ndle ICD-10 E11.65 blood sugar 2022-0 Yes [id number] USE TWICE Univers diagnostic 3-30 DAILY FOR ity of (ASCENSIA 00:00: BLOOD [place] MICROFILL) 00 GLUCOSE Medica l strip MONITORING Branch Insulin Asp 2022-0 Yes [id number] INJECT 28 Univers Prt-Insulin 3-30 UNITS ity of Aspart 00:00: UNDER THE [place] (NOVOLOG 00 SKIN 2 Medical MIX 70-30) (TWO) Branch 100 unit/mL TIMES (70-30) DAILY injection BEFORE BREAKFAST AND DINNER. lisinopriL 2022-0 Yes [id number] 20mg Take 1 U nivers 20 mg 3-30 tablet by ity of tablet 00:00: mouth in [place] 00 the Medical morning. Branch Insulin 2022-0 Yes [id number] Use as Univ ers [place], 3-30 directed ity of Disposable, 00:00: twice [place] (PEN 00 daily to Medical NEEDLE) 32 inject Branch gauge x insulin; " Ndle ICD-10 E11.65 blood sugar 2022-0 Yes [id number] USE TWICE Univers diagnostic 3-30 DAILY FOR ity of (ASCENSIA 00:00: BLOOD [place] MICROFILL) 00 GLUCOSE Medica l strip MONITORING Branch Insulin Asp 2022-0 Yes [id number] INJECT 28 Univers Prt-Insulin 3-30 UNITS ity of Aspart 00:00: UNDER THE [place] (NOVOLOG 00 SKIN 2 Medical MIX 70-30) (TWO) Branch 100 unit/mL TIMES (70-30) DAILY injection BEFORE BREAKFAST AND DINNER. lisinopriL 2022-0 Yes [id number] 20mg Take 1 U nivers 20 mg 3-30 tablet by ity of tablet 00:00: mouth in [place] 00 the Medical morning. Branch Insulin 2022-0 Yes [id number] Use as Univ ers [place], 3-30 directed ity of Disposable, 00:00: twice [place] (PEN 00 daily to Medical NEEDLE) 32 inject Branch gauge x insulin; " Ndle ICD-10 E11.65 blood sugar 0 Yes [id number] USE TWICE Univers diagnostic 3-30 DAILY FOR ity of (ASCENSIA 00:00: BLOOD [place] MICROFILL) 00 GLUCOSE Medica l strip MONITORING Branch Insulin Asp 2022-0 Yes [id number] INJECT 28 Univers Prt-Insulin 3-30 UNITS ity of Aspart 00:00: UNDER THE [place] (NOVOLOG 00 SKIN 2 Medical MIX 70-30) (TWO) Branch 100 unit/mL TIMES (70-30) DAILY injection BEFORE BREAKFAST AND DINNER. lisinopriL 2022-0 Yes [id number] 20mg Take 1 U nivers 20 mg 3-30 tablet by ity of tablet 00:00: mouth in [place] 00 the Medical morning. Branch Insulin 2022-0 Yes [id number] Use as Univ ers [place], 3-30 directed ity of Disposable, 00:00: twice [place] (PEN 00 daily to Medical NEEDLE) 32 inject Branch gauge x insulin; " Ndle ICD-10 E11.65 blood sugar 2022-0 Yes [id number] USE TWICE Univers diagnostic 3-30 DAILY FOR ity of (ASCENSIA 00:00: BLOOD [place] MICROFILL) 00 GLUCOSE Medica l strip MONITORING Branch Insulin Asp 2022-0 Yes [id number] INJECT 28 Univers Prt-Insulin 3-30 UNITS ity of Aspart 00:00: UNDER THE [place] (NOVOLOG 00 SKIN 2 Medical MIX 70-30) (TWO) Branch 100 unit/mL TIMES (70-30) DAILY injection BEFORE BREAKFAST AND DINNER. lisinopriL 2022-0 Yes [id number] 20mg Take 1 U nivers 20 mg 3-30 tablet by ity of tablet 00:00: mouth in [place] 00 the Medical morning. Branch Insulin 2022-0 Yes [id number] Use as Univ ers [place], 3-30 directed ity of Disposable, 00:00: twice [place] (PEN 00 daily to Medical NEEDLE) 32 inject Branch gauge x insulin; " Ndle ICD-10 E11.65 Insulin Asp 2022-0 Yes [id number] INJECT 28 Univers Prt-Insulin 3-30 UNITS ity of Aspart 00:00: UNDER THE [place] (NOVOLOG 00 SKIN 2 Medical MIX 70-30) (TWO) Branch 100 unit/mL TIMES (70-30) DAILY injection BEFORE BREAKFAST AND DINNER. lisinopriL 2022-0 Yes [id number] 20mg Take 1 U nivers 20 mg 3-30 tablet by ity of tablet 00:00: mouth in [place] 00 the Medical morning. Branch Insulin 2022-0 Yes [id number] Use as Univ ers [place], 3-30 directed ity of Disposable, 00:00: twice [place] (PEN 00 daily to Medical NEEDLE) 32 inject Branch gauge x insulin; " Ndle ICD-10 E11.65 Insulin Asp 2022-0 Yes [id number] INJECT 28 Univers Prt-Insulin 3-30 UNITS ity of Aspart 00:00: UNDER THE [place] (NOVOLOG 00 SKIN 2 Medical MIX 70-30) (TWO) Branch 100 unit/mL TIMES (70-30) DAILY injection BEFORE BREAKFAST AND DINNER. lisinopriL 2022-0 Yes [id number] 20mg Take 1 U nivers 20 mg 3-30 tablet by ity of tablet 00:00: mouth in [place] 00 the Medical morning. Branch Insulin 2022-0 Yes [id number] Use as Univ ers [place], 3-30 directed ity of Disposable, 00:00: twice [place] (PEN 00 daily to Medical NEEDLE) 32 inject Branch gauge x insulin; " Ndle ICD-10 E11.65 Insulin Asp 2022-0 Yes [id number] INJECT 28 Univers Prt-Insulin 3-30 UNITS ity of Aspart 00:00: UNDER THE [place] (NOVOLOG 00 SKIN 2 Medical MIX 70-30) (TWO) Branch 100 unit/mL TIMES (70-30) DAILY injection BEFORE BREAKFAST AND DINNER. lisinopriL 2022-0 Yes [id number] 20mg Take 1 U nivers 20 mg 3-30 tablet by ity of tablet 00:00: mouth in [place] 00 the Medical morning. Branch Insulin 2022-0 Yes [id number] Use as Univ ers [place], 3-30 directed ity of Disposable, 00:00: twice [place] (PEN 00 daily to Medical NEEDLE) 32 inject Branch gauge x insulin; 5/32" Ndle ICD-10 E11.65 Insulin Asp 2022-0 Yes [id number] INJECT 28 Univers Prt-Insulin 3-30 UNITS ity of Aspart 00:00: UNDER THE [place] (NOVOLOG 00 SKIN 2 Medical MIX 70-30) (TWO) Branch 100 unit/mL TIMES (70-30) DAILY injection BEFORE BREAKFAST AND DINNER. lisinopriL 2022-0 Yes [id number] 20mg Take 1 U nivers 20 mg 3-30 tablet by ity of tablet 00:00: mouth in [place] 00 the Medical morning. Branch Insulin 2022-0 Yes [id number] Use as Univ ers [place], 3-30 directed ity of Disposable, 00:00: twice [place] (PEN 00 daily to Medical NEEDLE) 32 inject Branch gauge x insulin; " Ndle ICD-10 E11.65 Insulin Asp 2022-0 Yes [id number] INJECT 28 Univers Prt-Insulin 3-30 UNITS ity of Aspart 00:00: UNDER THE [place] (NOVOLOG 00 SKIN 2 Medical MIX 70-30) (TWO) Branch 100 unit/mL TIMES (70-30) DAILY injection BEFORE BREAKFAST AND DINNER. lisinopriL 2022-0 Yes [id number] 20mg Take 1 U nivers 20 mg 3-30 tablet by ity of tablet 00:00: mouth in [place] 00 the Medical morning. Branch Insulin 2022-0 Yes [id number] Use as Univ ers [place], 3-30 directed ity of Disposable, 00:00: twice [place] (PEN 00 daily to Medical NEEDLE) 32 inject Branch gauge x insulin; " Ndle ICD-10 E11.65 Insulin Asp 2022-0 Yes [id number] INJECT 28 Univers Prt-Insulin 3-30 UNITS ity of Aspart 00:00: UNDER THE [place] (NOVOLOG 00 SKIN 2 Medical MIX 70-30) (TWO) Branch 100 unit/mL TIMES (70-30) DAILY injection BEFORE BREAKFAST AND DINNER. lisinopriL 2022-0 Yes [id number] 20mg Take 1 U nivers 20 mg 3-30 tablet by ity of tablet 00:00: mouth in [place] 00 the Medical morning. Branch Insulin 2022-0 Yes [id number] Use as Univ ers [place], 3-30 directed ity of Disposable, 00:00: twice [place] (PEN 00 daily to Medical NEEDLE) 32 inject Branch gauge x insulin; 5/32" Ndle ICD-10 E11.65 Insulin 2022-0 Yes [id number] Use as Univ ers [place], 3-30 directed ity of Disposable, 00:00: twice [place] (PEN 00 daily to Medical NEEDLE) 32 inject Branch gauge x insulin; " Ndle ICD-10 E11.65 Insulin Asp Yes [id number] INJECT 28 Univers Prt-Insulin 3-30 UNITS ity of Aspart 00:00: UNDER THE [place] (NOVOLOG 00 SKIN 2 Medical MIX 70-30) (TWO) Branch 100 unit/mL TIMES (70-30) DAILY injection BEFORE BREAKFAST AND DINNER. lisinopriL Yes [id number] 20mg Take 1 U nivers 20 mg 3-30 tablet by ity of tablet 00:00: mouth in [place] 00 the Medical morning. Branch blood sugar 2022- No [id number] USE TWICE Univers diagnostic 3-30 04-05 DAILY FOR ity of (ASCENSIA 00:00: 00:00 BLOOD [place] MICROFILL) 00 :00 GLUCOSE Medica l strip MONITORING Branch blood sugar 2022- No [id number] USE TWICE Univers diagnostic 3-30 04-05 DAILY FOR ity of (ASCENSIA 00:00: 00:00 BLOOD [place] MICROFILL) 00 :00 GLUCOSE Medica l strip MONITORING Branch Insulin Asp 2022- No [id number] INJECT 20 [facility] Prt-Insulin 3-30 03-30 UNITS ity of Aspart 00:00: 00:00 UNDER THE [place] (NOVOLOG 00 :00 SKIN 2 Medical MIX 70-30) (TWO) Branch 100 unit/mL TIMES (70-30) DAILY injection BEFORE BREAKFAST AND DINNER. Insulin Asp 2022- No [id number] INJECT 20 [facility] Prt-Insulin 3-30 03-30 UNITS ity of Aspart 00:00: 00:00 UNDER THE [place] (NOVOLOG 00 :00 SKIN 2 Medical MIX 70-30) (TWO) Branch 100 unit/mL TIMES (70-30) DAILY injection BEFORE BREAKFAST AND DINNER. Insulin Asp 2022- No [id number] INJECT 20 [facility] Prt-Insulin 3-30 03-30 UNITS ity of Aspart 00:00: 00:00 UNDER THE [place] (NOVOLOG 00 :00 SKIN 2 Medical MIX 70-30) (TWO) Branch 100 unit/mL TIMES (70-30) DAILY injection BEFORE BREAKFAST AND DINNER. Insulin Asp 2022- No [id number] INJECT 20 [facility] Prt-Insulin 3-30 03-30 UNITS ity of Aspart 00:00: 00:00 UNDER THE [place] (NOVOLOG 00 :00 SKIN 2 Medical MIX 70-30) (TWO) Branch 100 unit/mL TIMES (70-30) DAILY injection BEFORE BREAKFAST AND DINNER. Insulin Asp 3-0 2022- No [id number] INJECT 20 [facility] Prt-Insulin 3-30 03-30 UNITS ity of Aspart 00:00: 00:00 UNDER THE [place] (NOVOLOG 00 :00 SKIN 2 Medical MIX 70-30) (TWO) Branch 100 unit/mL TIMES (70-30) DAILY injection BEFORE BREAKFAST AND DINNER. lisinopriL 2022-0 Yes [id number] 20mg Take 1 U nivers 20 mg 3-28 tablet by ity of tablet 00:00: mouth in [place] 00 the Medical morning. Branch lisinopriL 2022-0 Yes [id number] 20mg Take 1 U nivers 20 mg 3-28 tablet by ity of tablet 00:00: mouth in [place] 00 the Medical morning. Branch lisinopriL 2022-0 2022- No [id number] 20mg Take 1 [facility] 20 mg 3-28 03-30 tablet by ity of tablet 00:00: 00:00 mouth in [place] 00 :00 the Medical morning. Branch lisinopriL 2022-0 2022- No [id number] 20mg Take 1 [facility] 20 mg 3-28 03-30 tablet by ity of tablet 00:00: 00:00 mouth in [place] 00 :00 the Medical morning. Branch lisinopriL 2022-0 2022- No [id number] 20mg Take 1 [facility] 20 mg 3-28 03-30 tablet by ity of tablet 00:00: 00:00 mouth in [place] 00 :00 the Medical morning. Branch lisinopriL 2022-0 2022- No [id number] 20mg Take 1 [facility] 20 mg 3-28 03-30 tablet by ity of tablet 00:00: 00:00 mouth in [place] 00 :00 the Medical morning. Branch NaCl 0.9% 2022- No 1000mL at 999 Uni vers (NS) bolus 2-06 02-06 mL/hr, ity of infusion 17:15: 18:09 1,000 mL, [place] as 1,000 mL 00 :00 IV Medical Infusion, Branch ONCE, 1 dose, On Wed07/27/22 at 1115, STAT ondansetron 3-0 2023- No 4mg 4 mg, Slow Univers (ZOFRAN 2- 02-06 IV Push, ity of (PF)) 16:15: 16:13 ONCE, 1 [place] injection 4 00 :00 dose, On Medi monika mg Wed07/27/22 Branch at 1015, PADMA ondansetron 2022-0 2023- No 4mg 4 mg, Slow Univers (ZOFRAN 2-06 02-06 IV Push, ity of (PF)) 15:30: 15:32 ONCE, 1 [place] injection 4 00 :00 dose, On Medi monika mg Wed07/27/22 Branch at 0930, PADMA nirmatrelvi 2022-0 Yes [id number] 3{tbl} Take 3 Univers r-ritonavir 2-06 tablets by it y of (PAXLOVID, 00:00: mouth in [place] EUA,) 300 00 the Medical mg (150 mg morning Branch x 2)-100 mg and 3 tablet tablets in the evening. ondansetron 3-0 Yes [id number] 4mg Take 1 [facility] 4 mg 2-06 tablet by ity of disintegrat 00:00: mouth [place] ing tablet 00 every 8 Medica l (eight) Branch hours as needed for Nausea and Vomiting (N/V). nirmatrelvi 2022-0 Yes [id number] 3{tbl} Take 3 [facility] r-ritonavir 2-06 tablets by it y of (PAXLOVID, 00:00: mouth in [place] as EUA,) 300 00 the Medical mg (150 mg morning Branch x 2)-100 mg and 3 tablet tablets in the evening. ondansetron 3-0 Yes [id number] 4mg Take 1 [facility] 4 mg 2-06 tablet by ity of disintegrat 00:00: mouth [place] ing tablet 00 every 8 Medica l (eight) Branch hours as needed for Nausea and Vomiting (N/V). nirmatrelvi 3-0 Yes [id number] 3{tbl} Take 3 [facility] r-ritonavir 2-06 tablets by it y of (PAXLOVID, 00:00: mouth in [place] EUA,) 300 00 the Medical mg (150 mg morning Branch x 2)-100 mg and 3 tablet tablets in the evening. ondansetron 2023-0 Yes [id number] 4mg Take 1 [facility] 4 mg 2-06 tablet by ity of disintegrat 00:00: mouth [place] ing tablet 00 every 8 Medica l (eight) Branch hours as needed for Nausea and Vomiting (N/V). nirmatrelvi 3-0 Yes [id number] 3{tbl} Take 3 [facility] r-ritonavir 2-06 tablets by it y of (PAXLOVID, 00:00: mouth in [place] as EUA,) 300 00 the Medical mg (150 mg morning Branch x 2)-100 mg and 3 tablet tablets in the evening. ondansetron 3-0 Yes [id number] 4mg Take 1 [facility] 4 mg 2-06 tablet by ity of disintegrat 00:00: mouth [place] ing tablet 00 every 8 Medica l (eight) Branch hours as needed for Nausea and Vomiting (N/V). ondansetron 2023-0 Yes [id number] 4mg Take 1 [facility] 4 mg 2-06 tablet by ity of disintegrat 00:00: mouth [place] ing tablet 00 every 8 Medica l (eight) Branch hours as needed for Nausea and Vomiting (N/V). ondansetron 3-0 Yes [id number] 4mg Take 1 [facility] 4 mg 2-06 tablet by ity of disintegrat 00:00: mouth [place] ing tablet 00 every 8 Medica l (eight) Branch hours as needed for Nausea and Vomiting (N/V). ondansetron 2023-0 Yes [id number] 4mg Take 1 [facility] 4 mg 2-06 tablet by ity of disintegrat 00:00: mouth [place] ing tablet 00 every 8 Medica l (eight) Branch hours as needed for Nausea and Vomiting (N/V). ondansetron 2023-0 Yes [id number] 4mg Take 1 [facility] 4 mg 2-06 tablet by ity of disintegrat 00:00: mouth [place] ing tablet 00 every 8 Medica l (eight) Branch hours as needed for Nausea and Vomiting (N/V). ondansetron 2023-0 Yes [id number] 4mg Take 1 [facility] 4 mg 2-06 tablet by ity of disintegrat 00:00: mouth [place] ing tablet 00 every 8 Medica l (eight) Branch hours as needed for Nausea and Vomiting (N/V). ondansetron 2023-0 Yes [id number] 4mg Take 1 [facility] 4 mg 2-06 tablet by ity of disintegrat 00:00: mouth [place] ing tablet 00 every 8 Medica l (eight) Branch hours as needed for Nausea and Vomiting (N/V). ondansetron 2023-0 Yes [id number] 4mg Take 1 [facility] 4 mg 2-06 tablet by ity of disintegrat 00:00: mouth [place] ing tablet 00 every 8 Medica l (eight) Branch hours as needed for Nausea and Vomiting (N/V). ondansetron 2023-0 Yes [id number] 4mg Take 1 Univers 4 mg 2-06 tablet by ity of disintegrat 00:00: mouth [place] ing tablet 00 every 8 Medica l (eight) Branch hours as needed for Nausea and Vomiting (N/V). ondansetron 2023-0 Yes [id number] 4mg Take 1 Univers 4 mg 2-06 tablet by ity of disintegrat 00:00: mouth [place] ing tablet 00 every 8 Medica l (eight) Branch hours as needed for Nausea and Vomiting (N/V). ondansetron 2023-0 Yes [id number] 4mg Take 1 Univers 4 mg 2-06 tablet by ity of disintegrat 00:00: mouth [place] ing tablet 00 every 8 Medica l (eight) Branch hours as needed for Nausea and Vomiting (N/V). ondansetron 2023-0 Yes [id number] 4mg Take 1 Univers 4 mg 2-06 tablet by ity of disintegrat 00:00: mouth [place] ing tablet 00 every 8 Medica l (eight) Branch hours as needed for Nausea and Vomiting (N/V). ondansetron 2023-0 Yes [id number] 4mg Take 1 Univers 4 mg 2-06 tablet by ity of disintegrat 00:00: mouth [place] ing tablet 00 every 8 Medica l (eight) Branch hours as needed for Nausea and Vomiting (N/V). ondansetron 2023-0 Yes [id number] 4mg Take 1 Univers 4 mg 2-06 tablet by ity of disintegrat 00:00: mouth [place] ing tablet 00 every 8 Medica l (eight) Branch hours as needed for Nausea and Vomiting (N/V). ondansetron 3-0 Yes [id number] 4mg Take 1 Univers 4 mg 2-06 tablet by ity of disintegrat 00:00: mouth [place] ing tablet 00 every 8 Medica l (eight) Branch hours as needed for Nausea and Vomiting (N/V). ondansetron 2022-0 Yes [id number] 4mg Take 1 Univers 4 mg 2-06 tablet by ity of disintegrat 00:00: mouth [place] ing tablet 00 every 8 Medica l (eight) Branch hours as needed for Nausea and Vomiting (N/V). ondansetron 2022-0 Yes [id number] 4mg Take 1 Univers 4 mg 2-06 tablet by ity of disintegrat 00:00: mouth [place] ing tablet 00 every 8 Medica l (eight) Branch hours as needed for Nausea and Vomiting (N/V). nirmatrelvi 2022- No [id number] 3{tbl} Take 3 Univers r-ritonavir 2-06 03-30 tablets by i ty of (PAXLOVID, 00:00: 00:00 mouth in [place] EUA,) 300 00 :00 the Medical mg (150 mg morning Branch x 2)-100 mg and 3 tablet tablets in the evening. nirmatrelvi 2022- No [id number] 3{tbl} Take 3 Univers r-ritonavir 2-06 03-30 tablets by i ty of (PAXLOVID, 00:00: 00:00 mouth in [place] EUA,) 300 00 :00 the Medical mg (150 mg morning Branch x 2)-100 mg and 3 tablet tablets in the evening. nirmatrelvi 2022- No [id number] 3{tbl} Take 3 Univers r-ritonavir 2-06 03-30 tablets by i ty of (PAXLOVID, 00:00: 00:00 mouth in [place] EUA,) 300 00 :00 the Medical mg (150 mg morning Branch x 2)-100 mg and 3 tablet tablets in the evening. nirmatrelvi 2022- No [id number] 3{tbl} Take 3 Univers r-ritonavir 2-06 03-30 tablets by i ty of (PAXLOVID, 00:00: 00:00 mouth in [place] EUA,) 300 00 :00 the Medical mg (150 mg morning Branch x 2)-100 mg and 3 tablet tablets in the evening. nirmatrelvi 2022- No [id number] 3{tbl} Take 3 Univers r-ritonavir 07-27-30 tablets by i ty of (PAXLOVID, 00:00: 00:00 mouth in [place] EUA,) 300 00 :00 the Medical mg (150 mg morning Branch x 2)-100 mg and 3 tablet tablets in the evening. D10W 10 % 2021-06 Yes at 20-40 Univ ers IV infusion 2-29 mL/hr, IV ity of 16:28: Infusion, [place] 11 TITRATE, Medical Starting Branch on [facility] 06/18/22 at 1028, Until Discontinu ed, Routine, CV Preprocedu re D10W 10 % 2021-06- No at 20-40 Uni vers IV infusion 2-29 12-29 mL/hr, IV it y of 16:28: 20:34 Infusion, [place] 11 :21 TITRATE, Medical Starting Branch on [place] 06/18/22 at 1028, Until [facility] 06/18/22 at 1434, Routine, CV Preprocedu re iopamidol 2021-06- No ONCE INTRA U nivers (ISOVUE 06-18 PROCEDURE, ity o f 370-500 mL) 15:56: 16:17 Starting [place] injection 00 :44 on [facility] Medical 06/18/22 Branch at 0956, Until [facility] 06/18/22 at 1017, Routine, CV Intraproce dure nitroglycer 2021-06- No ONCE INTRA Univers in (TRIDIL) 06-18 PROCEDURE, i ty of 2 mg in 10 15:41: 16:17 Starting [place] mL D5W for 29 :44 on [facility] Medical Cardiac 06/18/22 Branch Cath at 0941, Until [place] 06/18/22 at 1017, Routine, CV Intraproce dure heparin 2021-06- No ONCE INTRA Uni vers 1,000 06-18 PROCEDURE, ity of unit/mL 15:41: 16:17 Starting [place] injection 09 :44 on [facility] 06/18/22 Branch at 0941, Until [facility] 06/18/22 at 1017, Routine, CV Intraproce dure lidocaine 2021-06- No ONCE INTRA U nivers 1% (PF) 06-18 PROCEDURE, ity o f (XYLOCAINE) 15:34: 16:17 Starting [place] injection 00 :44 on [facility] 06/18/22 Branch at 0934, Until [facility] 06/18/22 at 1017, Routine, CV Intraproce dure midazolam 2021-06- No ONCE INTRA U nivers (VERSED) 06-18 PROCEDURE, ity of injection 15:22: 16:17 Starting [place] as 00 :44 on [facility] 06/18/22 Branch at 0922, Until [facility] 06/18/22 at 1017, Routine, CV Intraproce dure FENTanyl PF 2021-06- No ONCE INTRA Univers (SUBLIMAZE 06-18 PROCEDURE, it y of (PF)) 15:22: 16:17 Starting [place] injection 00 :44 on [facility] 06/18/22 Branch at 0922, Until [facility] 06/18/22 at 1017, Routine, CV Intraproce dure aspirin 2021-06 Yes [id number] 325mg 325 mg, U nivers tablet 325 Oral, ity of mg 15:00: DAILY, [place] 00 First dose Medical on [facility] 06/18/22 at 0900, Until Discontinu ed, Routine aspirin 2021-06- No [id number] 325mg 325 mg, Univers tablet 325 06-18 Oral, ity of mg 15:00: 20:34 DAILY, [place] 00 :21 First dose Medical on [facility] 06/18/22 at 0900, Until Discontinu ed, Routine aspirin 2021-06 Yes 81mg Take 81 mg Univ ers (ADULT LOW 2-29 by mouth ity o f DOSE 12:29: daily. [place] ASPIRIN) 81 19 Medical mg EC Branch tablet CBD-KINGS 2021-06 Yes Apply to Univ ers WITH 2-29 area(s). ity of LIDOCAINE 12:29: [place] TOPICAL 19 Medical Branch aspirin 2021-06 Yes [...] 12:29: [place] TOPICAL 19 Medical Branch aspirin 2022-1 Yes 81mg Take 81 mg Univ ers [...] mouth ity o f DOSE 12:29: daily. [place] ASPIRIN) 81 19 Medical mg EC Branch tablet CBD-KINGS 2021-06 Yes Apply to Univ ers WITH 2-29 area(s). ity of LIDOCAINE 12:29: [place] TOPICAL 19 Medical Branch aspirin 2021-06 Yes 81mg Take 81 mg Univ ers (ADULT LOW 2-29 by mouth ity o f DOSE 12:29: daily. [place] ASPIRIN) 81 19 Medical mg EC Branch tablet CBD-KINGS 2021-06 Yes Apply to Univ ers WITH 2-29 area(s). ity of LIDOCAINE 12:29: [place] TOPICAL 19 Medical Branch aspirin 2021-06 Yes 81mg Take 81 mg Univ ers (ADULT LOW 2-29 by mouth ity o f DOSE 06:26: daily. [place] ASPIRIN) 81 18 Medical mg EC Branch tablet CBD-KINGS 2021-06 Yes Apply to Univ ers WITH 2-29 area(s). ity of LIDOCAINE 06:26: [place] TOPICAL 18 Medical Branch lisinopriL 2021-06 Yes [id number] 20mg Take 1 U nivers 20 mg 2-29 tablet by ity of tablet 00:00: mouth in [place] 00 the Medical morning. Branch lisinopriL 2021-06 Yes [id number] 20mg Take 1 U nivers 20 mg 2-29 tablet by ity of tablet 00:00: mouth in [place] 00 the Medical morning. Branch lisinopriL 2021-06 Yes [id number] 20mg Take 1 U nivers 20 mg 2-29 tablet by ity of tablet 00:00: mouth in [place] 00 the Medical morning. Branch lisinopriL 2021-06 Yes [id number] 20mg Take 1 U nivers 20 mg 2-29 tablet by ity of tablet 00:00: mouth in [place] 00 the Medical morning. Branch lisinopriL 2021-06 Yes [id number] 20mg Take 1 U nivers 20 mg 2-29 tablet by ity of tablet 00:00: mouth in [place] 00 the Medical morning. Branch lisinopriL 2021-06 Yes [id number] 20mg Take 1 U nivers 20 mg 2-29 tablet by ity of tablet 00:00: mouth in [place] 00 the Medical morning. Branch lisinopriL 2021-06 Yes [id number] 20mg Take 1 U nivers 20 mg 2-29 tablet by ity of tablet 00:00: mouth in [place] 00 the Medical morning. Branch lisinopriL 2021-06 Yes [id number] 20mg Take 1 U nivers 20 mg 2-29 tablet by ity of tablet 00:00: mouth in [place] 00 the Medical morning. Branch lisinopriL 2021-06 Yes [id number] 20mg Take 1 U nivers 20 mg 2-29 tablet by ity of tablet 00:00: mouth in [place] 00 the Medical morning. Branch lisinopriL 2021-063- No [id number] 20mg Take 1 Univers 20 mg 2-29 03-28 tablet by ity of tablet 00:00: 00:00 mouth in [place] 00 :00 the Medical morning. Branch nystatin 2021-06 Yes [id number] Apply to Univers 100,000 2-12 area(s) 2 ity of unit/gram 00:00: (two) [place] powder 00 times Medical daily. Branch nystatin 2021-06 Yes [id number] Apply to Univers 100,000 2-12 area(s) 2 ity of unit/gram 00:00: (two) [place] powder 00 times Medical daily. Branch nystatin 2021- Yes [id number] Apply to Univers 100,000 2-12 area(s) 2 ity of unit/gram 00:00: (two) [place] powder 00 times Medical daily. Branch nystatin 2021- Yes [id number] Apply to Univers 100,000 2-12 area(s) 2 ity of unit/gram 00:00: (two) [place] powder 00 times Medical daily. Branch nystatin 2021- Yes [id number] Apply to Univers 100,000 2-12 area(s) 2 ity of unit/gram 00:00: (two) [place] powder 00 times Medical daily. Branch nystatin 2021-1 Yes [id number] Apply to Univers 100,000 2-12 area(s) 2 ity of unit/gram 00:00: (two) [place] powder 00 times Medical daily. Branch nystatin 2021-1 Yes [id number] Apply to Univers 100,000 2-12 area(s) 2 ity of unit/gram 00:00: (two) [place] powder 00 times Medical daily. Branch nystatin 2021- Yes [id number] Apply to Univers 100,000 2-12 area(s) 2 ity of unit/gram 00:00: (two) [place] powder 00 times Medical daily. Branch nystatin 2021- Yes [id number] Apply to Univers 100,000 2-12 area(s) 2 ity of unit/gram 00:00: (two) [place] powder 00 times Medical daily. Branch nystatin 2021-1 Yes [id number] Apply to Univers 100,000 2-12 area(s) 2 ity of unit/gram 00:00: (two) [place] powder 00 times Medical daily. Branch nystatin 2021-1 Yes [id number] Apply to Univers 100,000 2-12 area(s) 2 ity of unit/gram 00:00: (two) [place] powder 00 times Medical daily. Branch nystatin 2021-1 Yes [id number] Apply to Univers 100,000 2-12 area(s) 2 ity of unit/gram 00:00: (two) [place] powder 00 times Medical daily. Branch nystatin 2021- Yes [id number] Apply to Univers 100,000 2-12 area(s) 2 ity of unit/gram 00:00: (two) [place] powder 00 times Medical daily. Branch nystatin 2021-1 Yes [id number] Apply to Univers 100,000 2-12 area(s) 2 ity of unit/gram 00:00: (two) [place] powder 00 times Medical daily. Branch nystatin 2021- Yes [id number] Apply to Univers 100,000 2-12 area(s) 2 ity of unit/gram 00:00: (two) [place] powder 00 times Medical daily. Branch nystatin 2021-1 Yes [id number] Apply to Univers 100,000 2-12 area(s) 2 ity of unit/gram 00:00: (two) [place] powder 00 times Medical daily. Branch nystatin 2021-1 Yes [id number] Apply to Univers 100,000 2-12 area(s) 2 ity of unit/gram 00:00: (two) [place] powder 00 times Medical daily. Branch nystatin 2021-1 Yes [id number] Apply to Univers 100,000 2-12 area(s) 2 ity of unit/gram 00:00: (two) [place] powder 00 times Medical daily. Branch nystatin 2021-1 Yes [id number] Apply to Univers 100,000 2-12 area(s) 2 ity of unit/gram 00:00: (two) [place] powder 00 times Medical daily. Branch nystatin 2021-06 Yes [id number] Apply to Univers 100,000 2-12 area(s) 2 ity of unit/gram 00:00: (two) [place] powder 00 times Medical daily. Branch nystatin 2021-06 Yes [id number] Apply to Univers 100,000 2-12 area(s) 2 ity of unit/gram 00:00: (two) [place] powder 00 times Medical daily. Branch nystatin 2021-06 Yes [id number] Apply to Univers 100,000 2-12 area(s) 2 ity of unit/gram 00:00: (two) [place] powder 00 times Medical daily. Branch nystatin 2021-06 Yes [id number] Apply to Univers 100,000 2-12 area(s) 2 ity of unit/gram 00:00: (two) [place] powder 00 times Medical daily. Branch nystatin 2021-06 Yes [id number] Apply to Univers 100,000 2-12 area(s) 2 ity of unit/gram 00:00: (two) [place] powder 00 times Medical daily. Branch nystatin 2021-06 Yes [id number] Apply to Univers 100,000 2-12 area(s) 2 ity of unit/gram 00:00: (two) [place] powder 00 times Medical daily. Branch nystatin 2021-06 Yes [id number] Apply to Univers 100,000 2-12 area(s) 2 ity of unit/gram 00:00: (two) [place] powder 00 times Medical daily. Branch nystatin 2021-06 Yes [id number] Apply to Univers 100,000 2-12 area(s) 2 ity of unit/gram 00:00: (two) [place] powder 00 times Medical daily. Branch nystatin 2021-1 Yes [id number] Apply to Univers 100,000 2-12 area(s) 2 ity of unit/gram 00:00: (two) [place] powder 00 times Medical daily. Branch nystatin 2021-06 Yes [id number] Apply to Univers 100,000 2-12 area(s) 2 ity of unit/gram 00:00: (two) [place] powder 00 times Medical daily. Branch fluconazole 2021-06- No [id number] 150mg Take 1 Univers 150 mg 08-02- tablet by ity of tablet 00:00: 05:59 mouth [place] 00 :00 every 4 Medical (four) Branch days for 4 doses. promethazin 2021-06 Yes [id number] 5mL Take 5 mL Univers e-dextromet 1-29 by mouth 4 it y of horphan 00:00: (four) [place] 6.25-15 00 times Medical mg/5 mL daily as Branch syrup needed for Cough. promethazin 2021-06 Yes [id number] 5mL Take 5 mL Univers e-dextromet 1-29 by mouth 4 it y of horphan 00:00: (four) [place] 6.25-15 00 times Medical mg/5 mL daily as Branch syrup needed for Cough. promethazin 2021-06 Yes [id number] 5mL Take 5 mL Univers e-dextromet 1-29 by mouth 4 it y of horphan 00:00: (four) [place] 6.25-15 00 times Medical mg/5 mL daily as Branch syrup needed for Cough. promethazin 2021-06 Yes [id number] 5mL Take 5 mL Univers e-dextromet 1-29 by mouth 4 it y of horphan 00:00: (four) [place] 6.25-15 00 times Medical mg/5 mL daily as Branch syrup needed for Cough. promethazin 2021-06 Yes [id number] 5mL Take 5 mL Univers e-dextromet 1-29 by mouth 4 it y of horphan 00:00: (four) [place] 6.25-15 00 times Medical mg/5 mL daily as Branch syrup needed for Cough. promethazin 2021-06 Yes [id number] 5mL Take 5 mL Univers e-dextromet 1-29 by mouth 4 it y of horphan 00:00: (four) [place] 6.25-15 00 times Medical mg/5 mL daily as Branch syrup needed for Cough. promethazin 2021-06 Yes [id number] 5mL Take 5 mL Univers e-dextromet 1-29 by mouth 4 it y of horphan 00:00: (four) [place] 6.25-15 00 times Medical mg/5 mL daily as Branch syrup needed for Cough. promethazin 2021-06 Yes [id number] 5mL Take 5 mL Univers e-dextromet 1-29 by mouth 4 it y of horphan 00:00: (four) [place] 6.25-15 00 times Medical mg/5 mL daily as Branch syrup needed for Cough. promethazin 2021-06 Yes [id number] 5mL Take 5 mL Univers e-dextromet 1-29 by mouth 4 it y of horphan 00:00: (four) [place] 6.25-15 00 times Medical mg/5 mL daily as Branch syrup needed for Cough. promethazin 2021-06 Yes [id number] 5mL Take 5 mL Univers e-dextromet 1-29 by mouth 4 it y of horphan 00:00: (four) [place] 6.25-15 00 times Medical mg/5 mL daily as Branch syrup needed for Cough. promethazin 2021-06 Yes [id number] 5mL Take 5 mL Univers e-dextromet 1-29 by mouth 4 it y of horphan 00:00: (four) [place] 6.25-15 00 times Medical mg/5 mL daily as Branch syrup needed for Cough. promethazin 2021-06 Yes [id number] 5mL Take 5 mL Univers e-dextromet 1-29 by mouth 4 it y of horphan 00:00: (four) [place] 6.25-15 00 times Medical mg/5 mL daily as Branch syrup needed for Cough. promethazin 2021-06 Yes [id number] 5mL Take 5 mL Univers e-dextromet 1-29 by mouth 4 it y of horphan 00:00: (four) [place] 6.25-15 00 times Medical mg/5 mL daily as Branch syrup needed for Cough. promethazin 2021-06 Yes [id number] 5mL Take 5 mL Univers e-dextromet 1-29 by mouth 4 it y of horphan 00:00: (four) [place] 6.25-15 00 times Medical mg/5 mL daily as Branch syrup needed for Cough. promethazin 2021-06 Yes [id number] 5mL Take 5 mL Univers e-dextromet 1-29 by mouth 4 it y of horphan 00:00: (four) [place] 6.25-15 00 times Medical mg/5 mL daily as Branch syrup needed for Cough. promethazin 2021-06 Yes [id number] 5mL Take 5 mL Univers e-dextromet 1-29 by mouth 4 it y of horphan 00:00: (four) [place] 6.25-15 00 times Medical mg/5 mL daily as Branch syrup needed for Cough. promethazin 2021-06 Yes [id number] 5mL Take 5 mL Univers e-dextromet 1-29 by mouth 4 it y of horphan 00:00: (four) [place] 6.25-15 00 times Medical mg/5 mL daily as Branch syrup needed for Cough. promethazin 2021-06 Yes [id number] 5mL Take 5 mL Univers e-dextromet 1-29 by mouth 4 it y of horphan 00:00: (four) [place] 6.25-15 00 times Medical mg/5 mL daily as Branch syrup needed for Cough. promethazin 2021-06 Yes [id number] 5mL Take 5 mL Univers e-dextromet 1-29 by mouth 4 it y of horphan 00:00: (four) [place] 6.25-15 00 times Medical mg/5 mL daily as Branch syrup needed for Cough. promethazin 2021-06 Yes [id number] 5mL Take 5 mL Univers e-dextromet 1-29 by mouth 4 it y of horphan 00:00: (four) [place] 6.25-15 00 times Medical mg/5 mL daily as Branch syrup needed for Cough. promethazin 2021-06 Yes [id number] 5mL Take 5 mL Univers e-dextromet 1-29 by mouth 4 it y of horphan 00:00: (four) [place] 6.25-15 00 times Medical mg/5 mL daily as Branch syrup needed for Cough. promethazin 2021-06 Yes [id number] 5mL Take 5 mL Univers e-dextromet 1-29 by mouth 4 it y of horphan 00:00: (four) [place] 6.25-15 00 times Medical mg/5 mL daily as Branch syrup needed for Cough. promethazin 2021-06 Yes [id number] 5mL Take 5 mL Univers e-dextromet 1-29 by mouth 4 it y of horphan 00:00: (four) [place] 6.25-15 00 times Medical mg/5 mL daily as Branch syrup needed for Cough. promethazin 2021-06 Yes [id number] 5mL Take 5 mL Univers e-dextromet 1-29 by mouth 4 it y of horphan 00:00: (four) [place] 6.25-15 00 times Medical mg/5 mL daily as Branch syrup needed for Cough. promethazin 2021-06 Yes [id number] 5mL Take 5 mL Univers e-dextromet 1-29 by mouth 4 it y of horphan 00:00: (four) [place] 6.25-15 00 times Medical mg/5 mL daily as Branch syrup needed for Cough. promethazin 2021-06 Yes [id number] 5mL Take 5 mL Univers e-dextromet 1-29 by mouth 4 it y of horphan 00:00: (four) [place] 6.25-15 00 times Medical mg/5 mL daily as Branch syrup needed for Cough. promethazin 2021-06 Yes [id number] 5mL Take 5 mL Univers e-dextromet 1-29 by mouth 4 it y of horphan 00:00: (four) [place] 6.25-15 00 times Medical mg/5 mL daily as Branch syrup needed for Cough. promethazin 2021-06 Yes [id number] 5mL Take 5 mL Univers e-dextromet 1-29 by mouth 4 it y of horphan 00:00: (four) [place] 6.25-15 00 times Medical mg/5 mL daily as Branch syrup needed for Cough. promethazin 2021-06 Yes [id number] 5mL Take 5 mL Univers e-dextromet 1-29 by mouth 4 it y of horphan 00:00: (four) [place] 6.25-15 00 times Medical mg/5 mL daily as Branch syrup needed for Cough. promethazin 2021-06 Yes [id number] 5mL Take 5 mL Univers e-dextromet 1-29 by mouth 4 it y of [place] 00:00: (four) [place] 6.25-15 00 times Medical mg/5 mL daily as Branch syrup needed for Cough. ESCITALOPRA 2021-06 Yes [id number] TAKE 1 [facility] M OXALATE 1-02 TABLET BY ity o f 10 mg 00:00: MOUTH [place] tablet 00 EVERY DAY Medical Branch ESCITALOPRA 2021-06 Yes [id number] TAKE 1 [facility] M OXALATE 1-02 TABLET BY ity o f 10 mg 00:00: MOUTH [place] tablet 00 EVERY DAY Medical Branch ESCITALOPRA 2021-06 Yes [id number] TAKE 1 [facility] M OXALATE 1-02 TABLET BY ity o f 10 mg 00:00: MOUTH [place] tablet 00 EVERY DAY Medical Branch ESCITALOPRA 2021-06 Yes [id number] TAKE 1 [facility] M OXALATE 1-02 TABLET BY ity o f 10 mg 00:00: MOUTH [place] tablet 00 EVERY DAY Medical Branch ESCITALOPRA 2021-06 Yes [id number] TAKE 1 [facility] M OXALATE 1-02 TABLET BY ity o f 10 mg 00:00: MOUTH [place] tablet 00 EVERY DAY Medical Branch ESCITALOPRA 2021-06 Yes [id number] TAKE 1 [facility] M OXALATE 1-02 TABLET BY ity o f 10 mg 00:00: MOUTH [place] tablet 00 EVERY DAY Medical Branch ESCITALOPRA 2021-06 Yes [id number] TAKE 1 [facility] M OXALATE 1-02 TABLET BY ity o f 10 mg 00:00: MOUTH [place] tablet 00 EVERY DAY Medical Branch ESCITALOPRA 2021-06 Yes [id number] TAKE 1 [facility] M OXALATE 1-02 TABLET BY ity o f 10 mg 00:00: MOUTH [place] tablet 00 EVERY DAY Medical Branch ESCITALOPRA 2021-06 Yes [id number] TAKE 1 [facility] M OXALATE 1-02 TABLET BY ity o f 10 mg 00:00: MOUTH [place] tablet 00 EVERY DAY Medical Branch ESCITALOPRA 2021-06 Yes [id number] TAKE 1 [facility] M OXALATE 1-02 TABLET BY ity o f 10 mg 00:00: MOUTH [place] tablet 00 EVERY DAY Medical Branch ESCITALOPRA 2021-06 Yes [id number] TAKE 1 [facility] M OXALATE 1-02 TABLET BY ity o f 10 mg 00:00: MOUTH [place] tablet 00 EVERY DAY Medical Branch ESCITALOPRA 2021-06 Yes [id number] TAKE 1 [facility] M OXALATE 1-02 TABLET BY ity o f 10 mg 00:00: MOUTH [place] tablet 00 EVERY DAY Medical Branch ESCITALOPRA 2021-06 Yes [id number] TAKE 1 [facility] M OXALATE 1-02 TABLET BY ity o f 10 mg 00:00: MOUTH [place] tablet 00 EVERY DAY Medical Branch ESCITALOPRA 2021-06 Yes [id number] TAKE 1 [facility] M OXALATE 1-02 TABLET BY ity o f 10 mg 00:00: MOUTH [place] tablet 00 EVERY DAY Medical Branch ESCITALOPRA 2021-06 Yes [id number] TAKE 1 [facility] M OXALATE 1-02 TABLET BY ity o f 10 mg 00:00: MOUTH [place] tablet 00 EVERY DAY Medical Branch ESCITALOPRA 2021-06 Yes [id number] TAKE 1 [facility] M OXALATE 1-02 TABLET BY ity o f 10 mg 00:00: MOUTH [place] tablet 00 EVERY DAY Medical Branch ESCITALOPRA 2021-06 Yes [id number] TAKE 1 [facility] M OXALATE 1-02 TABLET BY ity o f 10 mg 00:00: MOUTH [place] tablet 00 EVERY DAY Medical Branch ESCITALOPRA 2021-06 Yes [id number] TAKE 1 [facility] M OXALATE 1-02 TABLET BY ity o f 10 mg 00:00: MOUTH [place] tablet 00 EVERY DAY Medical Branch ESCITALOPRA 2021-06 Yes [id number] TAKE 1 [facility] M OXALATE 1-02 TABLET BY ity o f 10 mg 00:00: MOUTH [place] tablet 00 EVERY DAY Medical Branch ESCITALOPRA 2021-06 Yes [id number] TAKE 1 [facility] M OXALATE 1-02 TABLET BY ity o f 10 mg 00:00: MOUTH [place] tablet 00 EVERY DAY Medical Branch ESCITALOPRA 2021-06 Yes [id number] TAKE 1 [facility] M OXALATE 1-02 TABLET BY ity o f 10 mg 00:00: MOUTH [place] tablet 00 EVERY DAY Medical Branch ESCITALOPRA 2021-06 Yes [id number] TAKE 1 [facility] M OXALATE 1-02 TABLET BY ity o f 10 mg 00:00: MOUTH [place] tablet 00 EVERY DAY Medical Branch ESCITALOPRA 2021-06 Yes [id number] TAKE 1 [facility] M OXALATE 1-02 TABLET BY ity o f 10 mg 00:00: MOUTH [place] tablet 00 EVERY DAY Medical Branch ESCITALOPRA 2021-06 Yes [id number] TAKE 1 [facility] M OXALATE 1-02 TABLET BY ity o f 10 mg 00:00: MOUTH [place] tablet 00 EVERY DAY Medical Branch ESCITALOPRA 2021-06 Yes [id number] TAKE 1 [facility] M OXALATE 1-02 TABLET BY ity o f 10 mg 00:00: MOUTH [place] tablet 00 EVERY DAY Medical Branch ESCITALOPRA 2021-06 Yes [id number] TAKE 1 [facility] M OXALATE 1-02 TABLET BY ity o f 10 mg 00:00: MOUTH [place] tablet 00 EVERY DAY Medical Branch ESCITALOPRA 2021-06 Yes [id number] TAKE 1 [facility] M OXALATE 1-02 TABLET BY ity o f 10 mg 00:00: MOUTH [place] tablet 00 EVERY DAY Medical Branch ESCITALOPRA 2021-06 Yes [id number] TAKE 1 [facility] M OXALATE 1-02 TABLET BY ity o f 10 mg 00:00: MOUTH [place] tablet 00 EVERY DAY Medical Branch ESCITALOPRA 2021-06 Yes [id number] TAKE 1 [facility] M OXALATE 1-02 TABLET BY ity o f 10 mg 00:00: MOUTH [place] tablet 00 EVERY DAY Medical Branch ESCITALOPRA 2021-06 Yes [id number] TAKE 1 [facility] M OXALATE 1-02 TABLET BY ity o f 10 mg 00:00: MOUTH [place] tablet 00 EVERY DAY Medical Branch ESCITALOPRA 2021-06 Yes [id number] TAKE 1 [facility] M OXALATE 1-02 TABLET BY ity o f 10 mg 00:00: MOUTH [place] tablet 00 EVERY DAY Medical Branch ESCITALOPRA 2021-06 Yes [id number] TAKE 1 [facility] M OXALATE 1-02 TABLET BY ity o f 10 mg 00:00: MOUTH [place] tablet 00 EVERY DAY Medical Branch ESCITALOPRA 2021-06 Yes [id number] TAKE 1 [facility] M OXALATE 1-02 TABLET BY ity o f 10 mg 00:00: MOUTH [place] tablet 00 EVERY DAY Medical Branch ESCITALOPRA 2021-06 Yes [id number] TAKE 1 [facility] M OXALATE 1-02 TABLET BY ity o f 10 mg 00:00: MOUTH [place] tablet 00 EVERY DAY Medical Branch ESCITALOPRA 2021-06 Yes [id number] TAKE 1 [facility] M OXALATE 1-02 TABLET BY ity o f 10 mg 00:00: MOUTH [place] tablet 00 EVERY DAY Medical Branch ESCITALOPRA 2021-06 Yes [id number] TAKE 1 [facility] M OXALATE 1-02 TABLET BY ity o f 10 mg 00:00: MOUTH [place] tablet 00 EVERY DAY Medical Branch ESCITALOPRA 2021-06 Yes [id number] TAKE 1 [facility] M OXALATE 1-02 TABLET BY ity o f 10 mg 00:00: MOUTH [place] tablet 00 EVERY DAY Medical Branch ESCITALOPRA 2021-06 Yes [id number] TAKE 1 [facility] M OXALATE 1-02 TABLET BY ity o f 10 mg 00:00: MOUTH [place] tablet 00 EVERY DAY Medical Branch gentamicin 2021-2021- No [id number] 80mg [facility] injection 0-10 10-10 [id number] ity of 80 mg 20:15: 19:07 [place] 00 :00 [facility] gentamicin 2021-06- No [id number] 80mg 80 mg, Univers injection 0 10-10 [id number] Intramuscu i ty of 80 mg 20:15: 19:07 lar, ONCE, [place] 00 :00 1 dose, On [facility] 03/30/22 at 1515, PADMA
Re ason for Anti-Infec tive: Empiric Therapy for Suspected Infection< br>Empiric Therapy Site: Urine
D uration of therapy: 72 hours gentamicin 2021-06- No [id number] 80mg [facility] injection 0 10-10 [id number] ity of 80 mg 20:15: 19:07 [place] 00 :00 [facility] Branch gentamicin 2021-06- No [id number] 80mg 80 mg, Univers injection 0 10-10 [id number] Intramuscu i ty of 80 mg 20:15: 19:07 lar, ONCE, [place] 00 :00 1 dose, On [facility] 03/30/22 at 1515, PADMA
Re ason for Anti-Infec tive: Empiric Therapy for Suspected Infection< br>Empiric Therapy Site: Urine
D uration of therapy: 72 hours GABAPENTIN 2021-06- No [id number] 300mg TAKE 1 [facility] 300 mg 0- 10-28 CAPSULE BY ity of capsule 00:00: 04:59 MOUTH IN [place] 00 :00 THE [facility] Branch AND 1 CAPSULE AT NOON AND 1 CAPSULE IN THE EVENING. DO ALL THIS FOR 21 DAYS. GABAPENTIN 2021-06- No [id number] 300mg TAKE 1 [facility] 300 mg 0-06 10-28 CAPSULE BY ity of capsule 00:00: 04:59 MOUTH IN [place] 00 :00 THE [facility] Branch AND 1 CAPSULE AT NOON AND 1 CAPSULE IN THE EVENING. DO ALL THIS FOR 21 DAYS. GABAPENTIN 2021-06- No [id number] 300mg TAKE 1 [facility] 300 mg 0-06 10-28 CAPSULE BY ity of capsule 00:00: 04:59 MOUTH IN [place] 00 :00 THE [facility] Branch AND 1 CAPSULE AT NOON AND 1 CAPSULE IN THE EVENING. DO ALL THIS FOR 21 DAYS. GABAPENTIN 2021-06- No [id number] 300mg TAKE 1 [facility] 300 mg 0-06 10-28 CAPSULE BY ity of capsule 00:00: 04:59 MOUTH IN [place] 00 :00 THE Medical MORNING Branch AND 1 CAPSULE AT NOON AND 1 CAPSULE IN THE EVENING. DO ALL THIS FOR 21 DAYS. GABAPENTIN 2021-06- No [id number] 300mg TAKE 1 [facility] 300 mg 0-06 10-28 CAPSULE BY ity of capsule 00:00: 04:59 MOUTH IN [place] 00 :00 THE Medical MORNING Branch AND 1 CAPSULE AT NOON AND 1 CAPSULE IN THE EVENING. DO ALL THIS FOR 21 DAYS. Insulin Asp Yes [id number] INJECT 20 [facility] Prt-Insulin 9-14 UNITS ity of Aspart 00:00: UNDER THE [place] (NOVOLOG 00 SKIN 2 Medical MIX 70-30) (TWO) Branch 100 unit/mL TIMES (70-30) DAILY injection BEFORE BREAKFAST AND DINNER. Insulin Asp Yes [id number] INJECT 20 [facility] Prt-Insulin 9-14 UNITS ity of Aspart 00:00: UNDER THE [place] (NOVOLOG 00 SKIN 2 Medical MIX 70-30) (TWO) Branch 100 unit/mL TIMES (70-30) DAILY injection BEFORE BREAKFAST AND DINNER. Insulin Asp Yes [id number] INJECT 20 [facility] Prt-Insulin 9-14 UNITS ity of Aspart 00:00: UNDER THE [place] (NOVOLOG 00 SKIN 2 Medical MIX 70-30) (TWO) Branch 100 unit/mL TIMES (70-30) DAILY injection BEFORE BREAKFAST AND DINNER. Insulin Asp Yes [id number] INJECT 20 [facility] Prt-Insulin 9-14 UNITS ity of Aspart 00:00: UNDER THE [place] (NOVOLOG 00 SKIN 2 Medical MIX 70-30) (TWO) Branch 100 unit/mL TIMES (70-30) DAILY injection BEFORE BREAKFAST AND DINNER. Insulin Asp Yes [id number] INJECT 20 [facility] Prt-Insulin 9-14 UNITS ity of Aspart 00:00: UNDER THE [place] (NOVOLOG 00 SKIN 2 Medical MIX 70-30) (TWO) Branch 100 unit/mL TIMES (70-30) DAILY injection BEFORE BREAKFAST AND DINNER. Insulin Asp Yes [id number] INJECT 20 [facility] Prt-Insulin 9-14 UNITS ity of Aspart 00:00: UNDER THE [place] (NOVOLOG 00 SKIN 2 Medical MIX 70-30) (TWO) Branch 100 unit/mL TIMES (70-30) DAILY injection BEFORE BREAKFAST AND DINNER. Insulin Asp 2021-0 Yes [id number] INJECT 20 [facility] Prt-Insulin 9-14 UNITS ity of Aspart 00:00: UNDER THE [place] (NOVOLOG 00 SKIN 2 Medical MIX 70-30) (TWO) Branch 100 unit/mL TIMES (70-30) DAILY injection BEFORE BREAKFAST AND DINNER. Insulin Asp 2021-0 Yes [id number] INJECT 20 [facility] Prt-Insulin 9-14 UNITS ity of Aspart 00:00: UNDER THE [place] (NOVOLOG 00 SKIN 2 Medical MIX 70-30) (TWO) Branch 100 unit/mL TIMES (70-30) DAILY injection BEFORE BREAKFAST AND DINNER. Insulin Asp 2021-0 Yes [id number] INJECT 20 [facility] Prt-Insulin 9-14 UNITS ity of Aspart 00:00: UNDER THE [place] (NOVOLOG 00 SKIN 2 Medical MIX 70-30) (TWO) Branch 100 unit/mL TIMES (70-30) DAILY injection BEFORE BREAKFAST AND DINNER. Insulin Asp 2021-0 Yes [id number] INJECT 20 [facility] Prt-Insulin 9-14 UNITS ity of Aspart 00:00: UNDER THE [place] (NOVOLOG 00 SKIN 2 Medical MIX 70-30) (TWO) Branch 100 unit/mL TIMES (70-30) DAILY injection BEFORE BREAKFAST AND DINNER. Insulin Asp 2021-0 Yes [id number] INJECT 20 [facility] Prt-Insulin 9-14 UNITS ity of Aspart 00:00: UNDER THE [place] (NOVOLOG 00 SKIN 2 Medical MIX 70-30) (TWO) Branch 100 unit/mL TIMES (70-30) DAILY injection BEFORE BREAKFAST AND DINNER. Insulin Asp 2021-0 Yes [id number] INJECT 20 [facility] Prt-Insulin 9-14 UNITS ity of Aspart 00:00: UNDER THE [place] (NOVOLOG 00 SKIN 2 Medical MIX 70-30) (TWO) Branch 100 unit/mL TIMES (70-30) DAILY injection BEFORE BREAKFAST AND DINNER. Insulin Asp 2021-0 Yes [id number] INJECT 20 [facility] Prt-Insulin 9-14 UNITS ity of Aspart 00:00: UNDER THE [place] (NOVOLOG 00 SKIN 2 Medical MIX 70-30) (TWO) Branch 100 unit/mL TIMES (70-30) DAILY injection BEFORE BREAKFAST AND DINNER. Insulin Asp 2021-0 Yes [id number] INJECT 20 [facility] Prt-Insulin 9-14 UNITS ity of Aspart 00:00: UNDER THE [place] (NOVOLOG 00 SKIN 2 Medical MIX 70-30) (TWO) Branch 100 unit/mL TIMES (70-30) DAILY injection BEFORE BREAKFAST AND DINNER. Insulin Asp 2021-0 Yes [id number] INJECT 20 [facility] Prt-Insulin 9-14 UNITS ity of Aspart 00:00: UNDER THE [place] (NOVOLOG 00 SKIN 2 Medical MIX 70-30) (TWO) Branch 100 unit/mL TIMES (70-30) DAILY injection BEFORE BREAKFAST AND DINNER. Insulin Asp 0 Yes [id number] INJECT 20 [facility] Prt-Insulin 9-14 UNITS ity of Aspart 00:00: UNDER THE [place] (NOVOLOG 00 SKIN 2 Medical MIX 70-30) (TWO) Branch 100 unit/mL TIMES (70-30) DAILY injection BEFORE BREAKFAST AND DINNER. Insulin Asp 0 Yes [id number] INJECT 20 [facility] Prt-Insulin 9-14 UNITS ity of Aspart 00:00: UNDER THE [place] (NOVOLOG 00 SKIN 2 Medical MIX 70-30) (TWO) Branch 100 unit/mL TIMES (70-30) DAILY injection BEFORE BREAKFAST AND DINNER. Insulin Asp 0 Yes [id number] INJECT 20 [facility] Prt-Insulin 9-14 UNITS ity of Aspart 00:00: UNDER THE [place] (NOVOLOG 00 SKIN 2 Medical MIX 70-30) (TWO) Branch 100 unit/mL TIMES (70-30) DAILY injection BEFORE BREAKFAST AND DINNER. Insulin Asp 0 Yes [id number] INJECT 20 [facility] Prt-Insulin 9-14 UNITS ity of Aspart 00:00: UNDER THE [place] (NOVOLOG 00 SKIN 2 Medical MIX 70-30) (TWO) Branch 100 unit/mL TIMES (70-30) DAILY injection BEFORE BREAKFAST AND DINNER. Insulin Asp 0 Yes [id number] INJECT 20 [facility] Prt-Insulin 9-14 UNITS ity of Aspart 00:00: UNDER THE [place] (NOVOLOG 00 SKIN 2 Medical MIX 70-30) (TWO) Branch 100 unit/mL TIMES (70-30) DAILY injection BEFORE BREAKFAST AND DINNER. Insulin Asp 0 Yes [id number] INJECT 20 [facility] Prt-Insulin 9-14 UNITS ity of Aspart 00:00: UNDER THE [place] (NOVOLOG 00 SKIN 2 Medical MIX 70-30) (TWO) Branch 100 unit/mL TIMES (70-30) DAILY injection BEFORE BREAKFAST AND DINNER. Insulin Asp 0 Yes [id number] INJECT 20 [facility] Prt-Insulin 9-14 UNITS ity of Aspart 00:00: UNDER THE [place] (NOVOLOG 00 SKIN 2 Medical MIX 70-30) (TWO) Branch 100 unit/mL TIMES (70-30) DAILY injection BEFORE BREAKFAST AND DINNER. Insulin Asp 0 Yes [id number] INJECT 20 [facility] Prt-Insulin 9-14 UNITS ity of Aspart 00:00: UNDER THE [place] (NOVOLOG 00 SKIN 2 Medical MIX 70-30) (TWO) Branch 100 unit/mL TIMES (70-30) DAILY injection BEFORE BREAKFAST AND DINNER. Insulin Asp 0 Yes [id number] INJECT 20 [facility] Prt-Insulin 9-14 UNITS ity of Aspart 00:00: UNDER THE [place] (NOVOLOG 00 SKIN 2 Medical MIX 70-30) (TWO) Branch 100 unit/mL TIMES (70-30) DAILY injection BEFORE BREAKFAST AND DINNER. Insulin Asp Yes [id number] INJECT 20 [facility] Prt-Insulin 9-14 UNITS ity of Aspart 00:00: UNDER THE [place] (NOVOLOG 00 SKIN 2 Medical MIX 70-30) (TWO) Branch 100 unit/mL TIMES (70-30) DAILY injection BEFORE BREAKFAST AND DINNER. Insulin Asp 0 Yes [id number] INJECT 20 [facility] Prt-Insulin 9-14 UNITS ity of Aspart 00:00: UNDER THE [place] (NOVOLOG 00 SKIN 2 Medical MIX 70-30) (TWO) Branch 100 unit/mL TIMES (70-30) DAILY injection BEFORE BREAKFAST AND DINNER. Insulin Asp Yes [id number] INJECT 20 [facility] Prt-Insulin 9-14 UNITS ity of Aspart 00:00: UNDER THE [place] (NOVOLOG 00 SKIN 2 Medical MIX 70-30) (TWO) Branch 100 unit/mL TIMES (70-30) DAILY injection BEFORE BREAKFAST AND DINNER. Insulin Asp Yes [id number] INJECT 20 [facility] Prt-Insulin 9-14 UNITS ity of Aspart 00:00: UNDER THE [place] (NOVOLOG 00 SKIN 2 Medical MIX 70-30) (TWO) Branch 100 unit/mL TIMES (70-30) DAILY injection BEFORE BREAKFAST AND DINNER. Insulin Asp 0 2023- No [id number] INJECT 20 [facility] Prt-Insulin 9-14 03-30 UNITS ity of Aspart 00:00: 00:00 UNDER THE [place] (NOVOLOG 00 :00 SKIN 2 Medical MIX 70-30) (TWO) Branch 100 unit/mL TIMES (70-30) DAILY injection BEFORE BREAKFAST AND DINNER. gabapentin 2021- No 300mg Take 1 [facility] 300 mg 802-24 capsule by ity of capsule 00:00: 04:59 mouth in [place] 00 :00 the Medical morning Branch and 1 capsule at noon and 1 capsule in the evening. Do all this for 21 days. gabapentin 2021- No 300mg Take 1 [facility] 300 mg 802-24 capsule by ity of capsule 00:00: 04:59 mouth in [place] 00 :00 the Medical morning Branch and 1 capsule at noon and 1 capsule in the evening. Do all this for 21 days. blood sugar Yes [id number] USE TWICE Univers diagnostic 8-04 DAILY FOR ity of (ASCENSIA 00:00: BLOOD [place] MICROFILL) 00 GLUCOSE Medica l strip MONITORING Branch FINASTERIDE Yes [id number] TAKE 1 [facility] 5 mg tablet 8-04 TABLET BY ity of 00:00: MOUTH [place] 00 EVERY DAY Medical Branch blood sugar Yes [id number] USE TWICE Univers diagnostic 8-04 DAILY FOR ity of (ASCENSIA 00:00: BLOOD [place] MICROFILL) 00 GLUCOSE Medica l strip MONITORING Branch FINASTERIDE Yes [id number] TAKE 1 [facility] 5 mg tablet 8-04 TABLET BY ity of 00:00: MOUTH [place] 00 EVERY DAY Medical Branch blood sugar Yes [id number] USE TWICE [facility] diagnostic 8-04 DAILY FOR ity of (ASCENSIA 00:00: BLOOD [place] MICROFILL) 00 GLUCOSE Medica l strip MONITORING Branch FINASTERIDE Yes [id number] TAKE 1 [facility] 5 mg tablet 8-04 TABLET BY ity of 00:00: MOUTH [place] 00 EVERY DAY Medical Branch blood sugar Yes [id number] USE TWICE Univers diagnostic 8-04 DAILY FOR ity of (ASCENSIA 00:00: BLOOD [place] MICROFILL) 00 GLUCOSE Medica l strip MONITORING Branch FINASTERIDE Yes [id number] TAKE 1 [facility] 5 mg tablet 8-04 TABLET BY ity of 00:00: MOUTH [place] 00 EVERY DAY Medical Branch blood sugar Yes [id number] USE TWICE Univers diagnostic 8-04 DAILY FOR ity of (ASCENSIA 00:00: BLOOD [place] MICROFILL) 00 GLUCOSE Medica l strip MONITORING Branch FINASTERIDE Yes [id number] TAKE 1 [facility] 5 mg tablet 8-04 TABLET BY ity of 00:00: MOUTH [place] 00 EVERY DAY Medical Branch blood sugar Yes [id number] USE TWICE [facility] diagnostic 8-04 DAILY FOR ity of (ASCENSIA 00:00: BLOOD [place] MICROFILL) 00 GLUCOSE Medica l strip MONITORING Branch FINASTERIDE Yes [id number] TAKE 1 [facility] 5 mg tablet 8-04 TABLET BY ity of 00:00: MOUTH [place] 00 EVERY DAY Medical Branch blood sugar Yes [id number] USE TWICE [facility] diagnostic 8-04 DAILY FOR ity of (ASCENSIA 00:00: BLOOD [place] MICROFILL) 00 GLUCOSE Medica l strip MONITORING Branch FINASTERIDE Yes [id number] TAKE 1 [facility] 5 mg tablet 8-04 TABLET BY ity of 00:00: MOUTH [place] 00 EVERY DAY Medical Branch blood sugar Yes [id number] USE TWICE [facility] diagnostic 8-04 DAILY FOR ity of (ASCENSIA 00:00: BLOOD [place] MICROFILL) 00 GLUCOSE Medica l strip MONITORING Branch FINASTERIDE Yes [id number] TAKE 1 [facility] 5 mg tablet 8-04 TABLET BY ity of 00:00: MOUTH [place] 00 EVERY DAY Medical Branch blood sugar Yes [id number] USE TWICE [facility] diagnostic 8-04 DAILY FOR ity of (ASCENSIA 00:00: BLOOD [place] MICROFILL) 00 GLUCOSE Medica l strip MONITORING Branch FINASTERIDE Yes [id number] TAKE 1 [facility] 5 mg tablet 8-04 TABLET BY ity of 00:00: MOUTH [place] 00 EVERY DAY Medical Branch blood sugar Yes [id number] USE TWICE [facility] diagnostic 8-04 DAILY FOR ity of (ASCENSIA 00:00: BLOOD [place] MICROFILL) 00 GLUCOSE Medica l strip MONITORING Branch FINASTERIDE Yes [id number] TAKE 1 [facility] 5 mg tablet 8-04 TABLET BY ity of 00:00: MOUTH [place] 00 EVERY DAY Medical Branch blood sugar Yes [id number] USE TWICE [facility] diagnostic 8-04 DAILY FOR ity of (ASCENSIA 00:00: BLOOD [place] MICROFILL) 00 GLUCOSE Medica l strip MONITORING Branch FINASTERIDE Yes [id number] TAKE 1 [facility] 5 mg tablet 8-04 TABLET BY ity of 00:00: MOUTH [place] 00 EVERY DAY Medical Branch blood sugar 0 Yes [id number] USE TWICE [facility] diagnostic 8-04 DAILY FOR ity of (ASCENSIA 00:00: BLOOD [place] MICROFILL) 00 GLUCOSE Medica l strip MONITORING Branch FINASTERIDE Yes [id number] TAKE 1 [facility] 5 mg tablet 8-04 TABLET BY ity of 00:00: MOUTH [place] 00 EVERY DAY Medical Branch blood sugar Yes [id number] USE TWICE [facility] diagnostic 8-04 DAILY FOR ity of (ASCENSIA 00:00: BLOOD [place] MICROFILL) 00 GLUCOSE Medica l strip MONITORING Branch FINASTERIDE Yes [id number] TAKE 1 [facility] 5 mg tablet 8-04 TABLET BY ity of 00:00: MOUTH [place] 00 EVERY DAY Medical Branch blood sugar Yes [id number] USE TWICE [facility] diagnostic 8-04 DAILY FOR ity of (ASCENSIA 00:00: BLOOD [place] MICROFILL) 00 GLUCOSE Medica l strip MONITORING Branch FINASTERIDE Yes [id number] TAKE 1 [facility] 5 mg tablet 8-04 TABLET BY ity of 00:00: MOUTH [place] 00 EVERY DAY Medical Branch blood sugar 0 Yes [id number] USE TWICE [facility] diagnostic 8-04 DAILY FOR ity of (ASCENSIA 00:00: BLOOD [place] MICROFILL) 00 GLUCOSE Medica l strip MONITORING Branch FINASTERIDE 0 Yes [id number] TAKE 1 [facility] 5 mg tablet 8-04 TABLET BY ity of 00:00: MOUTH [place] 00 EVERY DAY Medical Branch blood sugar 0 Yes [id number] USE TWICE [facility] diagnostic 8-04 DAILY FOR ity of (ASCENSIA 00:00: BLOOD [place] MICROFILL) 00 GLUCOSE Medica l strip MONITORING Branch FINASTERIDE 0 Yes [id number] TAKE 1 [facility] 5 mg tablet 8-04 TABLET BY ity of 00:00: MOUTH [place] 00 EVERY DAY Medical Branch blood sugar 0 Yes [id number] USE TWICE [facility] diagnostic 8-04 DAILY FOR ity of (ASCENSIA 00:00: BLOOD [place] MICROFILL) 00 GLUCOSE Medica l strip MONITORING Branch FINASTERIDE Yes [id number] TAKE 1 [facility] 5 mg tablet 8-04 TABLET BY ity of 00:00: MOUTH [place] 00 EVERY DAY Medical Branch blood sugar Yes [id number] USE TWICE [facility] diagnostic 8-04 DAILY FOR ity of (ASCENSIA 00:00: BLOOD [place] MICROFILL) 00 GLUCOSE Medica l strip MONITORING Branch FINASTERIDE Yes [id number] TAKE 1 [facility] 5 mg tablet 8-04 TABLET BY ity of 00:00: MOUTH [place] 00 EVERY DAY Medical Branch blood sugar Yes [id number] USE TWICE [facility] diagnostic 8-04 DAILY FOR ity of (ASCENSIA 00:00: BLOOD [place] MICROFILL) 00 GLUCOSE Medica l strip MONITORING Branch FINASTERIDE Yes [id number] TAKE 1 [facility] 5 mg tablet 8-04 TABLET BY ity of 00:00: MOUTH [place] 00 EVERY DAY Medical Branch blood sugar Yes [id number] USE TWICE [facility] diagnostic 8-04 DAILY FOR ity of (ASCENSIA 00:00: BLOOD [place] MICROFILL) 00 GLUCOSE Medica l strip MONITORING Branch FINASTERIDE Yes [id number] TAKE 1 [facility] 5 mg tablet 8-04 TABLET BY ity of 00:00: MOUTH [place] 00 EVERY DAY Medical Branch blood sugar Yes [id number] USE TWICE [facility] diagnostic 8-04 DAILY FOR ity of (ASCENSIA 00:00: BLOOD [place] MICROFILL) 00 GLUCOSE Medica l strip MONITORING Branch FINASTERIDE Yes [id number] TAKE 1 [facility] 5 mg tablet 8-04 TABLET BY ity of 00:00: MOUTH [place] 00 EVERY DAY Medical Branch blood sugar 0 Yes [id number] USE TWICE [facility] diagnostic 8-04 DAILY FOR ity of (ASCENSIA 00:00: BLOOD [place] MICROFILL) 00 GLUCOSE Medica l strip MONITORING Branch FINASTERIDE Yes [id number] TAKE 1 [facility] 5 mg tablet 8-04 TABLET BY ity of 00:00: MOUTH [place] 00 EVERY DAY Medical Branch blood sugar Yes [id number] USE TWICE [facility] diagnostic 8-04 DAILY FOR ity of (ASCENSIA 00:00: BLOOD [place] MICROFILL) 00 GLUCOSE Medica l strip MONITORING Branch FINASTERIDE Yes [id number] TAKE 1 [facility] 5 mg tablet 8-04 TABLET BY ity of 00:00: MOUTH [place] 00 EVERY DAY Medical Branch blood sugar Yes [id number] USE TWICE [facility] diagnostic 8-04 DAILY FOR ity of (ASCENSIA 00:00: BLOOD [place] MICROFILL) 00 GLUCOSE Medica l strip MONITORING Branch FINASTERIDE Yes [id number] TAKE 1 [facility] 5 mg tablet 8-04 TABLET BY ity of 00:00: MOUTH [place] 00 EVERY DAY Medical Branch blood sugar Yes [id number] USE TWICE [facility] diagnostic 8-04 DAILY FOR ity of (ASCENSIA 00:00: BLOOD [place] MICROFILL) 00 GLUCOSE Medica l strip MONITORING Branch FINASTERIDE Yes [id number] TAKE 1 [facility] 5 mg tablet 8-04 TABLET BY ity of 00:00: MOUTH [place] 00 EVERY DAY Medical [place] blood sugar Yes [id number] USE TWICE [facility] diagnostic 8-04 DAILY FOR ity of (ASCENSIA 00:00: BLOOD [place] MICROFILL) 00 GLUCOSE Medica l strip MONITORING Branch FINASTERIDE Yes [id number] TAKE 1 [facility] 5 mg tablet 8-04 TABLET BY ity of 00:00: MOUTH [place] 00 EVERY DAY Medical Branch blood sugar Yes [id number] USE TWICE [facility] diagnostic 8-04 DAILY FOR ity of (ASCENSIA 00:00: BLOOD [place] MICROFILL) 00 GLUCOSE Medica l strip MONITORING Branch FINASTERIDE Yes [id number] TAKE 1 [facility] 5 mg tablet 8-04 TABLET BY ity of 00:00: MOUTH [place] 00 EVERY DAY Medical Branch blood sugar Yes [id number] USE TWICE [facility] diagnostic 8-04 DAILY FOR ity of (ASCENSIA 00:00: BLOOD [place] MICROFILL) 00 GLUCOSE Medica l strip MONITORING Branch FINASTERIDE Yes [id number] TAKE 1 [facility] 5 mg tablet 8-04 TABLET BY ity of 00:00: MOUTH [place] 00 EVERY DAY Medical Branch blood sugar Yes [id number] USE TWICE [facility] diagnostic 8-04 DAILY FOR ity of (ASCENSIA 00:00: BLOOD [place] MICROFILL) 00 GLUCOSE Medica l strip MONITORING Branch FINASTERIDE Yes [id number] TAKE 1 [facility] 5 mg tablet 8-04 TABLET BY ity of 00:00: MOUTH [place] 00 EVERY DAY Medical Branch blood sugar 2021-0 Yes [id number] USE TWICE [facility] diagnostic 8-04 DAILY FOR ity of (ASCENSIA 00:00: BLOOD [place] MICROFILL) 00 GLUCOSE Medica l strip MONITORING Branch FINASTERIDE 2021-0 Yes [id number] TAKE 1 [facility] 5 mg tablet 8-04 TABLET BY ity of 00:00: MOUTH [place] 00 EVERY DAY Medical Branch blood sugar 2021-0 Yes [id number] USE TWICE [facility] diagnostic 8-04 DAILY FOR ity of (ASCENSIA 00:00: BLOOD [place] MICROFILL) 00 GLUCOSE Medica l strip MONITORING Branch FINASTERIDE 2021-0 Yes [id number] TAKE 1 [facility] 5 mg tablet 8-04 TABLET BY ity of 00:00: MOUTH [place] 00 EVERY DAY Medical Branch FINASTERIDE 2021-0 Yes [id number] TAKE 1 [facility] 5 mg tablet 8-04 TABLET BY ity of 00:00: MOUTH [place] 00 EVERY DAY Medical Branch FINASTERIDE 2021-0 Yes [id number] TAKE 1 [facility] 5 mg tablet 8-04 TABLET BY ity of 00:00: MOUTH [place] 00 EVERY DAY Medical Branch FINASTERIDE 2021-0 Yes [id number] TAKE 1 [facility] 5 mg tablet 8-04 TABLET BY ity of 00:00: MOUTH [place] 00 EVERY DAY [facility] FINASTERIDE 2021-0 Yes [id number] TAKE 1 [facility] 5 mg tablet 8-04 TABLET BY [facility] 00:00: MOUTH [place] 00 EVERY DAY [facility] FINASTERIDE 2021-0 Yes [id number] TAKE 1 [facility] 5 mg tablet 8-04 TABLET BY [facility] of 00:00: MOUTH [place] 00 EVERY DAY Medical Branch FINASTERIDE 2-0 Yes [id number] TAKE 1 [facility] 5 mg tablet 8-04 TABLET BY [facility] of 00:00: MOUTH [place] 00 EVERY DAY Medical Branch FINASTERIDE 2021-0 Yes [id number] TAKE 1 [facility] 5 mg tablet 8-04 TABLET BY [facility] of 00:00: MOUTH [place] 00 EVERY DAY Medical Branch FINASTERIDE 2021-0 Yes [id number] TAKE 1 [facility] 5 mg tablet 8-04 TABLET BY [facility] of 00:00: MOUTH [place] 00 EVERY DAY Medical Branch FINASTERIDE 2021-0 Yes [id number] TAKE 1 [facility] 5 mg tablet 8-04 TABLET BY [facility] of 00:00: MOUTH [place] 00 EVERY DAY [facility] FINASTERIDE 0 Yes [id number] TAKE 1 [facility] 5 mg tablet 8-04 TABLET BY [facility] of 00:00: MOUTH [place] 00 EVERY DAY [facility] Branch FINASTERIDE 2021-0 Yes [id number] TAKE 1 [facility] 5 mg tablet 8-04 TABLET BY [facility] of 00:00: MOUTH [place] 00 EVERY DAY [facility] FINASTERIDE 2021-0 Yes [id number] TAKE 1 [facility] 5 mg tablet 8-04 TABLET BY [facility] of 00:00: MOUTH [place] 00 EVERY DAY [facility] FINASTERIDE 2021-0 Yes [id number] TAKE 1 [facility] 5 mg tablet 8-04 TABLET BY [facility] of 00:00: MOUTH [place] 00 EVERY DAY [facility] FINASTERIDE 2021-0 Yes [id number] TAKE 1 [facility] 5 mg tablet 8-04 TABLET BY [facility] of 00:00: MOUTH [place] 00 EVERY DAY [facility] Branch FINASTERIDE 2021-0 Yes [id number] TAKE 1 [facility] 5 mg tablet 8-04 TABLET BY [facility] of 00:00: MOUTH [place] 00 EVERY DAY [facility] FINASTERIDE 2021-0 Yes [id number] TAKE 1 [facility] 5 mg tablet 8-04 TABLET BY [facility] of 00:00: MOUTH [place] 00 EVERY DAY [facility] FINASTERIDE 2021-0 Yes [id number] TAKE 1 [facility] 5 mg tablet 8-04 TABLET BY [facility] of 00:00: MOUTH [place] 00 EVERY DAY Medical Branch blood sugar 2021-0 2023- No [id number] USE TWICE [facility] diagnostic 8-04 03-30 DAILY FOR [facility] of (ASCENSIA 00:00: 00:00 BLOOD [place] MICROFILL) 00 :00 GLUCOSE Medica l strip MONITORING Branch escitalopra 0 Yes [id number] 20mg Take 2 [facility] m oxalate 7-29 tablets by [facility] of 10 mg 00:00: mouth in [place] tablet 00 the Medical morning. Branch escitalopra 2021-0 Yes [id number] 20mg Take 2 [facility] m oxalate 7-29 tablets by [facility] of 10 mg 00:00: mouth in [place] tablet 00 the Medical morning. Branch escitalopra 2021-0 Yes [id number] 20mg Take 2 [facility] m oxalate 7-29 tablets by [facility] of 10 mg 00:00: mouth in [place] tablet 00 the Medical morning. Branch escitalopra 2022-0 Yes [id number] 20mg Take 2 [facility] m oxalate 7-29 tablets by [facility] of 10 mg 00:00: mouth in [place] tablet 00 the Medical morning. Branch escitalopra 2021-0 Yes [id number] 20mg Take 2 [facility] m oxalate 7-29 tablets by it[facility] of 10 mg 00:00: mouth in [place] tablet 00 the Medical morning. Branch escitalopra 2021-0 Yes [id number] 20mg Take 2 [facility] m oxalate 7-29 tablets by it[facility] of 10 mg 00:00: mouth in [place] tablet 00 the Medical morning. Branch escitalopra 2021-0 Yes [id number] 20mg Take 2 [facility] m oxalate 7-29 tablets by [facility] of 10 mg 00:00: mouth in [place] tablet 00 the Medical morning. Branch escitalopra 2021-0 Yes [id number] 20mg Take 2 [facility] m oxalate 7-29 tablets by it[facility] of 10 mg 00:00: mouth in [place] tablet 00 the Medical morning. Branch escitalopra 2021-0 Yes [id number] 20mg Take 2 [facility] m oxalate 7-29 tablets by [facility] of 10 mg 00:00: mouth in [place] tablet 00 the Medical morning. Branch escitalopra 2021-0 Yes [id number] 20mg Take 2 [facility] m oxalate 7-29 tablets by [facility] of 10 mg 00:00: mouth in [place] tablet 00 the Medical morning. Branch escitalopra 0 2021- No [id number] 20mg Take 2 [facility] m oxalate 7-29 11-02 tablets by it[facility] of 10 mg 00:00: 00:00 mouth in [place] tablet 00 :00 the Medical morning. [place] tiZANidine 0 Yes [id number] 4mg Take 1 [facility] n[facility] 4 mg tablet 7-12 tablet by ity of 00:00: mouth 3 [place] 00 (three) Medical times Branch daily as needed for Pain (scale 4-6). clotrimazol 0 Yes [id number] Apply to [facility] e-betametha 7-12 area(s) 2 ity of sone 00:00: (two) [place] (LOTRISONE) 00 times Medical cream daily. [place] tiZANidine 0 Yes [id number] 4mg Take 1 U nivers 4 mg tablet 7-12 tablet by ity of 00:00: mouth 3 [place] 00 (three) Medical times Branch daily as needed for Pain (scale 4-6). clotrimazol 2022-0 Yes [id number] Apply to [facility] e-betametha 7-12 area(s) 2 ity of sone 00:00: (two) [place] (LOTRISONE) 00 times Medical cream daily. Branch tiZANidine 2022-0 Yes [id number] 4mg Take 1 [facility] n[facility] 4 mg tablet 7-12 tablet by ity of 00:00: mouth 3 [place] 00 (three) Medical times Branch daily as needed for Pain (scale 4-6). clotrimazol 2022-0 Yes [id number] Apply to [facility] e-betametha 7-12 area(s) 2 ity of sone 00:00: (two) [place] (LOTRISONE) 00 times Medical cream daily. Branch tiZANidine 2022-0 Yes [id number] 4mg Take 1 [facility] nivers 4 mg tablet 7-12 tablet by ity of 00:00: mouth 3 00 (three) Medical times Branch daily as needed for Pain (scale 4-6). clotrimazol 2022-0 Yes [id number] Apply to [facility] e-betametha 7-12 area(s) 2 ity of sone 00:00: (two) [place] (LOTRISONE) 00 times Medical cream daily. Branch tiZANidine 2022-0 Yes [id number] 4mg Take 1 [facility] n[facility] 4 mg tablet 7-12 tablet by ity of 00:00: mouth 3 00 (three) Medical times Branch daily as needed for Pain (scale 4-6). clotrimazol 2022-0 Yes [id number] Apply to [facility] e-betametha 7-12 area(s) 2 ity of sone 00:00: (two) [place] (LOTRISONE) 00 times Medical cream daily. Branch tiZANidine 2022-0 Yes [id number] 4mg Take 1 [facility] n[facility] 4 mg tablet 7-12 tablet by ity of 00:00: mouth 3 [place] 00 (three) Medical times Branch daily as needed for Pain (scale 4-6). clotrimazol 2022-0 Yes [id number] Apply to [facility] e-betametha 7-12 area(s) 2 ity of sone 00:00: (two) [place] (LOTRISONE) 00 times Medical cream daily. Branch tiZANidine 2022-0 Yes [id number] 4mg Take 1 [facility] nivers 4 mg tablet 7-12 tablet by ity of 00:00: mouth 3 00 (three) Medical times Branch daily as needed for Pain (scale 4-6). clotrimazol 2022-0 Yes [id number] Apply to [facility] e-betametha 7-12 area(s) 2 ity of sone 00:00: (two) [place] (LOTRISONE) 00 times Medical cream daily. Branch tiZANidine 2022-0 Yes [id number] 4mg Take 1 [facility] n[facility] 4 mg tablet 7-12 tablet by ity of 00:00: mouth 3 00 (three) Medical times Branch daily as needed for Pain (scale 4-6). clotrimazol 2022-0 Yes [id number] Apply to [facility] e-betametha 7-12 area(s) 2 ity of sone 00:00: (two) [place] (LOTRISONE) 00 times Medical cream daily. Branch tiZANidine 2022-0 Yes [id number] 4mg Take 1 [facility] nivers 4 mg tablet 7-12 tablet by ity of 00:00: mouth 3 00 (three) Medical times Branch daily as needed for Pain (scale 4-6). clotrimazol 2022-0 Yes [id number] Apply to [facility] e-betametha 7-12 area(s) 2 ity of sone 00:00: (two) [place] (LOTRISONE) 00 times Medical cream daily. Branch tiZANidine 2022-0 Yes [id number] 4mg Take 1 [facility] nivers 4 mg tablet 7-12 tablet by ity of 00:00: mouth 3 00 (three) Medical times Branch daily as needed for Pain (scale 4-6). clotrimazol 2022-0 Yes [id number] Apply to [facility] e-betametha 7-12 area(s) 2 ity of sone 00:00: (two) [place] (LOTRISONE) 00 times Medical cream daily. Branch tiZANidine 2022-0 Yes [id number] 4mg Take 1 [facility] nivers 4 mg tablet 7-12 tablet by ity of 00:00: mouth 3 00 (three) Medical times Branch daily as needed for Pain (scale 4-6). clotrimazol 2022-0 Yes [id number] Apply to [facility] e-betametha 7-12 area(s) 2 ity of sone 00:00: (two) [place] (LOTRISONE) 00 times Medical cream daily. Branch tiZANidine 2022-0 Yes [id number] 4mg Take 1 [facility] nivers 4 mg tablet 7-12 tablet by ity of 00:00: mouth 3 00 (three) Medical times Branch daily as needed for Pain (scale 4-6). clotrimazol 2022-0 Yes [id number] Apply to [facility] e-betametha 7-12 area(s) 2 ity of sone 00:00: (two) [place] (LOTRISONE) 00 times Medical cream daily. Branch tiZANidine 2022-0 Yes [id number] 4mg Take 1 U nivers 4 mg tablet 7-12 tablet by ity of 00:00: mouth 3 00 (three) Medical times Branch daily as needed for Pain (scale 4-6). clotrimazol 2022-0 Yes [id number] Apply to [facility] e-betametha 7-12 area(s) 2 ity of sone 00:00: (two) [place] (LOTRISONE) 00 times Medical cream daily. Branch tiZANidine 2022-0 Yes [id number] 4mg Take 1 [facility] nivers 4 mg tablet 7-12 tablet by ity of 00:00: mouth 3 00 (three) Medical times Branch daily as needed for Pain (scale 4-6). clotrimazol 2022-0 Yes [id number] Apply to [facility] e-betametha 7-12 area(s) 2 ity of sone 00:00: (two) [place] (LOTRISONE) 00 times Medical cream daily. Branch tiZANidine 2022-0 Yes [id number] 4mg Take 1 [facility] nivers 4 mg tablet 7-12 tablet by ity of 00:00: mouth 3 00 (three) Medical times Branch daily as needed for Pain (scale 4-6). clotrimazol 2022-0 Yes [id number] Apply to [facility] e-betametha 7-12 area(s) 2 ity of sone 00:00: (two) [place] (LOTRISONE) 00 times Medical cream daily. Branch tiZANidine 2022-0 Yes [id number] 4mg Take 1 [facility] nivers 4 mg tablet 7-12 tablet by ity of 00:00: mouth 3 [place] 00 (three) Medical times Branch daily as needed for Pain (scale 4-6). clotrimazol 2022-0 Yes [id number] Apply to [facility] e-betametha 7-12 area(s) 2 ity of sone 00:00: (two) [place] (LOTRISONE) 00 times Medical cream daily. Branch tiZANidine 2022-0 Yes [id number] 4mg Take 1 [facility] nivers 4 mg tablet 7-12 tablet by ity of 00:00: mouth 3 00 (three) Medical times Branch daily as needed for Pain (scale 4-6). clotrimazol 2022-0 Yes [id number] Apply to [facility] e-betametha 7-12 area(s) 2 ity of sone 00:00: (two) [place] (LOTRISONE) 00 times Medical cream daily. Branch tiZANidine 2022-0 Yes [id number] 4mg Take 1 U nivers 4 mg tablet 7-12 tablet by ity of 00:00: mouth 3 00 (three) Medical times Branch daily as needed for Pain (scale 4-6). clotrimazol 2022-0 Yes [id number] Apply to [facility] e-betametha 7-12 area(s) 2 ity of sone 00:00: (two) [place] (LOTRISONE) 00 times Medical cream daily. Branch tiZANidine 2022-0 Yes [id number] 4mg Take 1 U nivers 4 mg tablet 7-12 tablet by ity of 00:00: mouth 3 00 (three) Medical times Branch daily as needed for Pain (scale 4-6). clotrimazol 2022-0 Yes [id number] Apply to [facility] e-betametha 7-12 area(s) 2 ity of sone 00:00: (two) [place] (LOTRISONE) 00 times Medical cream daily. Branch tiZANidine 2022-0 Yes [id number] 4mg Take 1 U nivers 4 mg tablet 7-12 tablet by ity of 00:00: mouth 3 00 (three) Medical times Branch daily as needed for Pain (scale 4-6). clotrimazol 2022-0 Yes [id number] Apply to [facility] e-betametha 7-12 area(s) 2 ity of sone 00:00: (two) [place] (LOTRISONE) 00 times Medical cream daily. Branch tiZANidine 2022-0 Yes [id number] 4mg Take 1 U nivers 4 mg tablet 7-12 tablet by ity of 00:00: mouth 3 [place] 00 (three) Medical times Branch daily as needed for Pain (scale 4-6). clotrimazol 2022-0 Yes [id number] Apply to [facility] e-betametha 7-12 area(s) 2 ity of sone 00:00: (two) [place] (LOTRISONE) 00 times Medical cream daily. Branch tiZANidine 2022-0 Yes [id number] 4mg Take 1 U nivers 4 mg tablet 7-12 tablet by ity of 00:00: mouth 3 00 (three) Medical times Branch daily as needed for Pain (scale 4-6). clotrimazol 2022-0 Yes [id number] Apply to [facility] e-betametha 7-12 area(s) 2 ity of sone 00:00: (two) [place] (LOTRISONE) 00 times Medical cream daily. Branch tiZANidine 2022-0 Yes [id number] 4mg Take 1 U nivers 4 mg tablet 7-12 tablet by ity of 00:00: mouth 3 00 (three) Medical times Branch daily as needed for Pain (scale 4-6). clotrimazol 2022-0 Yes [id number] Apply to [facility] e-betametha 7-12 area(s) 2 ity of sone 00:00: (two) [place] (LOTRISONE) 00 times Medical cream daily. Branch tiZANidine 2022-0 Yes [id number] 4mg Take 1 U nivers 4 mg tablet 7-12 tablet by ity of 00:00: mouth 3 [place] 00 (three) Medical times Branch daily as needed for Pain (scale 4-6). clotrimazol 2022-0 Yes [id number] Apply to [facility] e-betametha 7-12 area(s) 2 ity of sone 00:00: (two) [place] (LOTRISONE) 00 times Medical cream daily. Branch tiZANidine 2022-0 Yes [id number] 4mg Take 1 U nivers 4 mg tablet 7-12 tablet by ity of 00:00: mouth 3 [place] 00 (three) Medical times Branch daily as needed for Pain (scale 4-6). clotrimazol 2022-0 Yes [id number] Apply to [facility] e-betametha 7-12 area(s) 2 ity of sone 00:00: (two) [place] (LOTRISONE) 00 times Medical cream daily. Branch tiZANidine 2022-0 Yes [id number] 4mg Take 1 U nivers 4 mg tablet 7-12 tablet by ity of 00:00: mouth 3 00 (three) Medical times Branch daily as needed for Pain (scale 4-6). clotrimazol 2022-0 Yes [id number] Apply to [facility] e-betametha 7-12 area(s) 2 ity of sone 00:00: (two) [place] (LOTRISONE) 00 times Medical cream daily. Branch tiZANidine 2022-0 Yes [id number] 4mg Take 1 U nivers 4 mg tablet 7-12 tablet by ity of 00:00: mouth 3 00 (three) Medical times Branch daily as needed for Pain (scale 4-6). clotrimazol 2022-0 Yes [id number] Apply to [facility] e-betametha 7-12 area(s) 2 ity of sone 00:00: (two) [place] (LOTRISONE) 00 times Medical cream daily. Branch tiZANidine 2022-0 Yes [id number] 4mg Take 1 U nivers 4 mg tablet 7-12 tablet by ity of 00:00: mouth 3 00 (three) Medical times Branch daily as needed for Pain (scale 4-6). clotrimazol 2022-0 Yes [id number] Apply to [facility] e-betametha 7-12 area(s) 2 ity of sone 00:00: (two) [place] (LOTRISONE) 00 times Medical cream daily. Branch tiZANidine 2022-0 Yes [id number] 4mg Take 1 U nivers 4 mg tablet 7-12 tablet by ity of 00:00: mouth 3 [place] 00 (three) Medical times Branch daily as needed for Pain (scale 4-6). clotrimazol 2022-0 Yes [id number] Apply to [facility] e-betametha 7-12 area(s) 2 ity of sone 00:00: (two) [place] (LOTRISONE) 00 times Medical cream daily. Branch tiZANidine 2022-0 Yes [id number] 4mg Take 1 U nivers 4 mg tablet 7-12 tablet by ity of 00:00: mouth 3 [place] 00 (three) Medical times Branch daily as needed for Pain (scale 4-6). clotrimazol 2022-0 Yes [id number] Apply to [facility] e-betametha 7-12 area(s) 2 ity of sone 00:00: (two) [place] (LOTRISONE) 00 times Medical cream daily. Branch tiZANidine 2022-0 Yes [id number] 4mg Take 1 U nivers 4 mg tablet 7-12 tablet by ity of 00:00: mouth 3 00 (three) Medical times Branch daily as needed for Pain (scale 4-6). clotrimazol 2022-0 Yes [id number] Apply to [facility] e-betametha 7-12 area(s) 2 ity of sone 00:00: (two) [place] (LOTRISONE) 00 times Medical cream daily. Branch tiZANidine 2022-0 Yes [id number] 4mg Take 1 U nivers 4 mg tablet 7-12 tablet by ity of 00:00: mouth 3 00 (three) Medical times Branch daily as needed for Pain (scale 4-6). clotrimazol 2022-0 Yes [id number] Apply to [facility] e-betametha 7-12 area(s) 2 ity of sone 00:00: (two) [place] (LOTRISONE) 00 times Medical cream daily. Branch tiZANidine 2022-0 Yes [id number] 4mg Take 1 U nivers 4 mg tablet 7-12 tablet by ity of 00:00: mouth 3 [place] 00 (three) Medical times Branch daily as needed for Pain (scale 4-6). clotrimazol 2022-0 Yes [id number] Apply to [facility] e-betametha 7-12 area(s) 2 ity of sone 00:00: (two) [place] (LOTRISONE) 00 times Medical cream daily. Branch tiZANidine 2022-0 Yes [id number] 4mg Take 1 U nivers 4 mg tablet 7-12 tablet by ity of 00:00: mouth 3 [place] 00 (three) Medical times Branch daily as needed for Pain (scale 4-6). clotrimazol 2022-0 Yes [id number] Apply to [facility] e-betametha 7-12 area(s) 2 ity of sone 00:00: (two) [place] (LOTRISONE) 00 times Medical cream daily. Branch tiZANidine 2022-0 Yes [id number] 4mg Take 1 U nivers 4 mg tablet 7-12 tablet by ity of 00:00: mouth 3 00 (three) Medical times Branch daily as needed for Pain (scale 4-6). clotrimazol 2022-0 Yes [id number] Apply to [facility] e-betametha 7-12 area(s) 2 ity of sone 00:00: (two) [place] (LOTRISONE) 00 times Medical cream daily. Branch tiZANidine 2022-0 Yes [id number] 4mg Take 1 U nivers 4 mg tablet 7-12 tablet by ity of 00:00: mouth 3 00 (three) Medical times Branch daily as needed for Pain (scale 4-6). clotrimazol 2022-0 Yes [id number] Apply to [facility] e-betametha 7-12 area(s) 2 ity of sone 00:00: (two) [place] (LOTRISONE) 00 times Medical cream daily. Branch tiZANidine 2022-0 Yes [id number] 4mg Take 1 [facility] nivers 4 mg tablet 7-12 tablet by ity of 00:00: mouth 3 00 (three) Medical times Branch daily as needed for Pain (scale 4-6). clotrimazol 2022-0 Yes [id number] Apply to [facility] e-betametha 7-12 area(s) 2 ity of sone 00:00: (two) [place] (LOTRISONE) 00 times Medical cream daily. Branch tiZANidine 2022-0 Yes [id number] 4mg Take 1 U nivers 4 mg tablet 7-12 tablet by ity of 00:00: mouth 3 [place] 00 (three) Medical times Branch daily as needed for Pain (scale 4-6). clotrimazol 2022-0 Yes [id number] Apply to [facility] e-betametha 7-12 area(s) 2 ity of sone 00:00: (two) [place] (LOTRISONE) 00 times Medical cream daily. Branch tiZANidine 2022-0 Yes [id number] 4mg Take 1 U nivers 4 mg tablet 7-12 tablet by ity of 00:00: mouth 3 [place] 00 (three) Medical times Branch daily as needed for Pain (scale 4-6). clotrimazol 2022-0 Yes [id number] Apply to [facility] e-betametha 7-12 area(s) 2 ity of sone 00:00: (two) [place] (LOTRISONE) 00 times Medical cream daily. Branch tiZANidine 2022-0 Yes [id number] 4mg Take 1 [facility] nivers 4 mg tablet 7-12 tablet by ity of 00:00: mouth 3 00 (three) Medical times Branch daily as needed for Pain (scale 4-6). clotrimazol 2022-0 Yes [id number] Apply to [facility] e-betametha 7-12 area(s) 2 ity of sone 00:00: (two) [place] (LOTRISONE) 00 times Medical cream daily. Branch tiZANidine 2022-0 Yes [id number] 4mg Take 1 [facility] nivers 4 mg tablet 7-12 tablet by ity of 00:00: mouth 3 00 (three) Medical times Branch daily as needed for Pain (scale 4-6). clotrimazol 2022-0 Yes [id number] Apply to [facility] e-betametha 7-12 area(s) 2 ity of sone 00:00: (two) [place] (LOTRISONE) 00 times Medical cream daily. Branch tiZANidine 2022-0 Yes [id number] 4mg Take 1 [facility] nivers 4 mg tablet 7-12 tablet by ity of 00:00: mouth 3 [place] 00 (three) Medical times Branch daily as needed for Pain (scale 4-6). clotrimazol 2022-0 Yes [id number] Apply to [facility] e-betametha 7-12 area(s) 2 ity of sone 00:00: (two) [place] (LOTRISONE) 00 times Medical cream daily. Branch tiZANidine 2022-0 Yes [id number] 4mg Take 1 [facility] nivers 4 mg tablet 7-12 tablet by ity of 00:00: mouth 3 00 (three) Medical times Branch daily as needed for Pain (scale 4-6). clotrimazol 2022-0 Yes [id number] Apply to [facility] e-betametha 7-12 area(s) 2 ity of sone 00:00: (two) [place] (LOTRISONE) 00 times Medical cream daily. Branch tiZANidine 2022-0 Yes [id number] 4mg Take 1 [facility] n[facility] 4 mg tablet 7-12 tablet by ity of 00:00: mouth 3 00 (three) Medical times Branch daily as needed for Pain (scale 4-6). clotrimazol 2022-0 Yes [id number] Apply to [facility] e-betametha 7-12 area(s) 2 ity of sone 00:00: (two) [place] (LOTRISONE) 00 times Medical cream daily. Branch tiZANidine 2022-0 Yes [id number] 4mg Take 1 U nivers 4 mg tablet 7-12 tablet by ity of 00:00: mouth 3 00 (three) Medical times Branch daily as needed for Pain (scale 4-6). clotrimazol 2022-0 Yes [id number] Apply to [facility] e-betametha 7-12 area(s) 2 ity of sone 00:00: (two) [place] (LOTRISONE) 00 times Medical cream daily. Branch tiZANidine 2022-0 Yes [id number] 4mg Take 1 U nivers 4 mg tablet 7-12 tablet by ity of 00:00: mouth 3 00 (three) Medical times Branch daily as needed for Pain (scale 4-6). clotrimazol 2022-0 Yes [id number] Apply to [facility] e-betametha 7-12 area(s) 2 ity of sone 00:00: (two) [place] (LOTRISONE) 00 times Medical cream daily. Branch tiZANidine 2022-0 Yes [id number] 4mg Take 1 [facility] n[facility] 4 mg tablet 7-12 tablet by ity of 00:00: mouth 3 [place] 00 (three) Medical times Branch daily as needed for Pain (scale 4-6). clotrimazol 2021-0 Yes [id number] Apply to [facility] e-betametha 7-12 area(s) 2 ity of sone 00:00: (two) [place] (LOTRISONE) 00 times Medical cream daily. Branch tiZANidine 2021-0 Yes [id number] 4mg Take 1 U nivers 4 mg tablet 7-12 tablet by ity of 00:00: mouth 3 [place] 00 (three) Medical times Branch daily as needed for Pain (scale 4-6). clotrimazol 2021-0 Yes [id number] Apply to [facility] e-betametha 7-12 area(s) 2 ity of sone 00:00: (two) [place] (LOTRISONE) 00 times Medical cream daily. Branch lisinopriL 2021-0 Yes [id number] 20mg Take 1 [facility] n[facility] 20 mg 7-08 tablet by ity of tablet 00:00: mouth [place] 00 daily. Medical Branch lisinopriL 2021-0 Yes [id number] 20mg Take 1 [facility] n[facility] 20 mg 7-08 tablet by ity of tablet 00:00: mouth [place] 00 daily. Medical Branch lisinopriL 2021-0 Yes [id number] 20mg Take 1 [facility] nivers 20 mg 7-08 tablet by ity of tablet 00:00: mouth [place] 00 daily. Medical Branch lisinopriL 2021-0 Yes [id number] 20mg Take 1 [facility] 20 mg 7-08 tablet by ity of tablet 00:00: mouth [place] 00 daily. Medical Branch lisinopriL 2021-0 Yes [id number] 20mg Take 1 [facility] 20 mg 7-08 tablet by ity of tablet 00:00: mouth [place] 00 daily. Medical Branch lisinopriL 2-0 Yes [id number] 20mg Take 1 [facility] 20 mg 7-08 tablet by ity of tablet 00:00: mouth [place] 00 daily. Medical Branch lisinopriL 2021-0 Yes [id number] 20mg Take 1 [facility] 20 mg 7-08 tablet by ity of tablet 00:00: mouth [place] 00 daily. Medical Branch lisinopriL 2021-0 Yes [id number] 20mg Take 1 [facility] 20 mg 7-08 tablet by ity of tablet 00:00: mouth [place] 00 daily. Medical Branch lisinopriL 2021-0 Yes [id number] 20mg Take 1 [facility] n[facility] 20 mg 7-08 tablet by ity of tablet 00:00: mouth [place] 00 daily. Medical Branch lisinopriL 2021-0 Yes [id number] 20mg Take 1 [facility] 20 mg 7-08 tablet by ity of tablet 00:00: mouth [place] 00 daily. Medical Branch lisinopriL 2021-0 Yes [id number] 20mg Take 1 [facility] 20 mg 7-08 tablet by ity of tablet 00:00: mouth [place] 00 daily. Medical Branch lisinopriL 2021-0 Yes [id number] 20mg Take 1 [facility] 20 mg 7-08 tablet by ity of tablet 00:00: mouth [place] 00 daily. Medical Branch lisinopriL 2021-0 Yes [id number] 20mg Take 1 [facility] 20 mg 7-08 tablet by ity of tablet 00:00: mouth [place] 00 daily. Medical Branch lisinopriL 2021-0 Yes [id number] 20mg Take 1 [facility] 20 mg 7-08 tablet by ity of tablet 00:00: mouth [place] 00 daily. Medical Branch lisinopriL 2021-0 Yes [id number] 20mg Take 1 [facility] 20 mg 7-08 tablet by ity of tablet 00:00: mouth [place] 00 daily. Medical Branch lisinopriL 2021-0 Yes [id number] 20mg Take 1 [facility] n[facility] 20 mg 7-08 tablet by ity of tablet 00:00: mouth [place] 00 daily. Medical Branch lisinopriL 2021-0 Yes [id number] 20mg Take 1 [facility] 20 mg 7-08 tablet by ity of tablet 00:00: mouth [place] 00 daily. Medical Branch lisinopriL 2021-0 Yes [id number] 20mg Take 1 [facility] 20 mg 7-08 tablet by ity of tablet 00:00: mouth [place] 00 daily. Medical Branch lisinopriL 2021-0 Yes [id number] 20mg Take 1 [facility] 20 mg 7-08 tablet by ity of tablet 00:00: mouth [place] 00 daily. Medical Branch lisinopriL 2-0 2- No [id number] 20mg Take 1 [facility] 20 mg 7-08 12-29 tablet by ity of tablet 00:00: 00:00 mouth [place] 00 :00 daily. Medical Branch lisinopriL 2021- No [id number] 20mg Take 1 [facility] 20 mg 7-29 tablet by ity of tablet 00:00: 00:00 mouth [place] 00 :00 daily. Medical Branch lisinopriL 2021- No [id number] 20mg Take 1 [facility] 20 mg 7- 12-29 tablet by ity of tablet 00:00: 00:00 mouth [place] 00 :00 daily. Medical Branch NOVOLOG MIX Yes [id number] INJECT 20 [facility] 70-30 100 5-31 UNITS ity of unit/mL 00:00: UNDER THE () 00 SKIN 2 Medical injection (TWO) Branch TIMES DAILY BEFORE BREAKFAST AND DINNER. NOVOLOG MIX Yes [id number] INJECT 20 [facility] 70-30 100 5-31 UNITS ity of unit/mL 00:00: UNDER THE () 00 SKIN 2 Medical injection (TWO) Branch TIMES DAILY BEFORE BREAKFAST AND DINNER. NOVOLOG MIX Yes [id number] INJECT 20 [facility] 70-30 100 5-31 UNITS ity of unit/mL 00:00: UNDER THE (30) 00 SKIN 2 Medical injection (TWO) Branch TIMES DAILY BEFORE BREAKFAST AND DINNER. NOVOLOG MIX 2021- No [id number] INJECT 20 [facility] 70-30 100 5-31 09-14 UNITS ity of unit/mL 00:00: 00:00 UNDER THE [facility] s (30) 00 :00 SKIN 2 Medical injection (TWO) Branch TIMES DAILY BEFORE BREAKFAST AND DINNER. aspirin 0 Yes 81mg Take 81 mg Univ ers (ADULT LOW 5-16 by mouth ity o f DOSE 10:43: daily. [place] ASPIRIN) 81 19 Medical mg [facility] Branch tablet aspirin 2021-0 Yes 81mg Take 81 mg Univ ers (ADULT LOW 5-16 by mouth ity o f DOSE 10:43: daily. [place] ASPIRIN) 81 19 Medical mg EC Branch tablet aspirin 2021-0 Yes 81mg Take 81 mg Univ ers (ADULT LOW 5-16 by mouth ity o f DOSE 10:43: daily. [place] ASPIRIN) 81 19 Medical mg EC Branch tablet aspirin Yes 81mg Take 81 mg Univ ers [...] mouth ity o f DOSE 10:43: daily. [place] ASPIRIN) 81 19 Medical mg [facility] Branch tablet aspirin 0 Yes 81mg Take 81 mg Univ ers (ADULT LOW 5-16 by mouth ity o f DOSE 10:43: daily. [place] ASPIRIN) 81 19 Medical mg EC Branch tablet aspirin 0 Yes 81mg Take 81 mg Univ ers (ADULT LOW 5-16 by mouth ity o f DOSE 10:43: daily. [place] ASPIRIN) 81 19 Medical mg EC Branch tablet aspirin 0 Yes 81mg Take 81 mg Univ ers (ADULT LOW 5-16 by mouth ity o f DOSE 10:43: daily. [place] ASPIRIN) 81 19 Medical mg EC Branch tablet aspirin 0 Yes 81mg Take 81 mg Univ ers (ADULT LOW 5-16 by mouth ity o f DOSE 10:43: daily. [place] ASPIRIN) 81 19 Medical mg EC Branch tablet CANDESARTAN 2021- No [id number] 4mg TAKE 1 [facility] 4 mg tablet 5-10 25-08 TABLET BY it y of 00:00: 00:00 MOUTH [place] 00 :00 DAILY. Medical REPLACES Branch LISINOPRIL . CANDESARTAN 2021- No [id number] 4mg TAKE 1 [facility] 4 mg tablet 5-10 25-08 TABLET BY it y of 00:00: 00:00 MOUTH [place] 00 :00 DAILY. Medical REPLACES Branch LISINOPRIL . metformin 2021- No [id number] 500mg Take 1 Univers ER 500 mg 4-19 05-16 tablet by ity of 24 hr 00:00: 00:00 mouth 2 [place] tablet 00 :00 (two) Medical times Branch daily with meals. metformin 2021- No [id number] 500mg Take 1 [facility] ER 500 mg 4-19 05-16 tablet by ity of 24 hr 00:00: 00:00 mouth 2 [place] tablet 00 :00 (two) Medical times Branch daily with meals. fluticasone 2021- No [id number] 2{spray Use 2 [facility] propionate 09-08 } Sprays in ity of 50 00:00: 00:00 each [place] mcg/actuati 00 :00 nostril Medic al on nasal daily. Branch spray guaiFENesin 2021- No [id number] 100mg Take 5 mL [facility] 100 mg/5 mL 09-08 by mouth ity of solution 00:00: 00:00 every 4 [place] 00 :00 (four) Medical hours as Branch needed for Cough. fluticasone 2021- No [id number] 2{spray Use 2 [facility] propionate 09-08 } Sprays in ity of 50 00:00: 00:00 each [place] mcg/actuati 00 :00 nostril Medic al on nasal daily. Branch spray guaiFENesin 2021- No [id number] 100mg Take 5 mL Univers 100 mg/5 mL 09-08 by mouth ity of solution 00:00: 00:00 every 4 [place] 00 :00 (four) Medical hours as Branch needed for Cough. CBD-KINGS Yes Apply to Univ ers WITH 3-12 area(s). ity of LIDOCAINE 19:59: [place] TOPICAL Medical Branch CBD-KINGS Yes Apply to Univ ers WITH 3-12 area(s). ity of LIDOCAINE 19:59: [place] TOPICAL Medical Branch CBD-KINGS 2021-0 Yes Apply to Univ ers WITH 3-12 area(s). ity of LIDOCAINE 19:59: [place] TOPICAL 46 Medical Branch CBD-KINGS 2021-0 Yes Apply to Univ ers WITH 3-12 area(s). ity of LIDOCAINE 19:59: [place] TOPICAL Medical Branch CBD-KINGS 2021-0 Yes Apply to Univ ers WITH 3-12 area(s). ity of LIDOCAINE 19:59: [place] TOPICAL 46 Medical Branch CBD-KINGS 2021-0 Yes Apply to Univ ers WITH 3-12 area(s). ity of LIDOCAINE 19:59: [place] TOPICAL 46 Medical Branch CBD-KINGS 2021-0 Yes Apply to Univ ers WITH 3-12 area(s). ity of LIDOCAINE 19:59: [place] TOPICAL 46 Medical Branch CBD-KINGS 2021-0 Yes Apply to Univ ers WITH 3-12 area(s). ity of LIDOCAINE 19:59: [place] TOPICAL 46 Medical Branch CBD-KINGS 2021-0 Yes Apply to Univ ers WITH 3-12 area(s). ity of LIDOCAINE 19:59: [place] TOPICAL 46 Medical Branch CBD-KINGS 2021-0 Yes Apply to Univ ers WITH 3-12 area(s). ity of LIDOCAINE 19:59: [place] TOPICAL 46 Medical Branch CBD-KINGS 2021-0 Yes Apply to Univ ers WITH 3-12 area(s). ity of LIDOCAINE 19:59: [place] TOPICAL 46 Medical Branch CBD-KINGS 2021-0 Yes Apply to Univ ers WITH 3-12 area(s). ity of LIDOCAINE 19:59: [place] TOPICAL 46 Medical Branch CBD-KINGS 2021-0 Yes Apply to Univ ers WITH 3-12 area(s). ity of LIDOCAINE 19:59: [place] TOPICAL Medical Branch CBD-KINGS 2021-0 Yes Apply to Univ ers WITH 3-12 area(s). ity of LIDOCAINE 19:59: [place] TOPICAL Medical Branch CBD-KINGS 2021-0 Yes Apply to Univ ers WITH 3-12 area(s). ity of LIDOCAINE 19:59: [place] TOPICAL Medical Branch CBD-KINGS 2021-0 Yes Apply to Univ ers WITH 3-12 area(s). ity of LIDOCAINE 19:59: [place] TOPICAL Medical Branch CBD-KINGS 2021-0 Yes Apply to Univ ers WITH 3-12 area(s). ity of LIDOCAINE 19:59: [place] TOPICAL Medical Branch CBD-KINGS 2021-0 Yes Apply to Univ ers WITH 3-12 area(s). ity of LIDOCAINE 19:59: [place] TOPICAL Medical Branch CBD-KINGS 2021-0 Yes Apply to Univ ers WITH 3-12 area(s). ity of LIDOCAINE 19:59: [place] [address] Medical Branch [facility]-KINGS 2021-0 Yes Apply to Univ ers WITH 3-12 area(s). ity of LIDOCAINE 19:59: [address] Branch apixaban 2021-2021- No 1358 5mg Take 1 Un[facility] (ELIQUIS) 5 3-12 -01 tablet by it y of mg tablet 00:00: 00:00 mouth 2 [place] 00 :[place] (two) Medical times Branch daily for 180 days. Indication s: atrial fibrillati on apixaban 2021-0 2021- No 1358 5mg Take 1 Un[facility] (ELIQUIS) 5 3-12 07-01 tablet by it y of mg tablet 00:00: 00:00 mouth 2 [place] 00 :00 (two) Medical times Branch daily for 180 days. Indication s: atrial fibrillati on FINASTERIDE 2020-06- No [id number] TAKE 1 Univers 5 mg tablet 08-04 TABLET BY it y of 00:00: 00:00 MOUTH [place] 00 : EVERY DAY Medical Branch FINASTERIDE 2020-06- No [id number] TAKE 1 [facility] 5 mg tablet 08-04 TABLET BY it y of 00:00: 00:00 MOUTH [place] 00 : EVERY DAY Medical Branch PANTOPRAZOL 2020-06 Yes [id number] TAKE 1 Univers E 40 mg EC 1-23 [id number] TABLET BY it y of tablet 00:00: [facility] EVERY DAY Medical Branch PANTOPRAZOL 2020-06 Yes [id number] TAKE 1 Univers E 40 mg EC 1-23 [id number] TABLET BY it y of tablet 00:00: [facility] EVERY DAY Medical Branch PANTOPRAZOL 2020-06 Yes [id number] TAKE 1 Univers E 40 mg EC 1-23 [id number] TABLET BY it y of tablet 00:00: [facility] EVERY DAY Medical Branch PANTOPRAZOL 2020-06 Yes [id number] TAKE 1 Univers E 40 mg EC 1-23 [id number] TABLET BY it y of tablet 00:00: [facility] 00 EVERY DAY Medical Branch PANTOPRAZOL 2020-06 Yes [id number] TAKE 1 Univers E 40 mg EC 1-23 [id number] TABLET BY it y of tablet 00:00: [facility] 00 EVERY DAY Medical Branch PANTOPRAZOL 2020-06 Yes [id number] TAKE 1 Univers E 40 mg EC 1-23 [id number] TABLET BY it y of tablet 00:00: [facility] EVERY DAY Medical Branch PANTOPRAZOL 2020-06 Yes [id number] TAKE 1 Univers E 40 mg EC 1-23 [id number] TABLET BY it y of tablet 00:00: [facility] EVERY DAY Medical Branch PANTOPRAZOL 2020-06 Yes [id number] TAKE 1 Univers E 40 mg EC 1-23 [id number] TABLET BY it y of tablet 00:00: [facility] EVERY DAY Medical Branch PANTOPRAZOL 2020-06 Yes [id number] TAKE 1 Univers E 40 mg EC 1-23 [id number] TABLET BY it y of tablet 00:00: [facility] EVERY DAY Medical Branch PANTOPRAZOL 2020-06 Yes [id number] TAKE 1 Univers E 40 mg EC 1-23 [id number] TABLET BY it y of tablet 00:00: MOUTH [place] 00 EVERY DAY Medical Branch PANTOPRAZOL 2020-06 Yes [id number] TAKE 1 Univers E 40 mg EC 1-23 [id number] TABLET BY it y of tablet 00:00: MOUTH [place] EVERY DAY Medical Branch PANTOPRAZOL 2020-06 Yes [id number] TAKE 1 Univers E 40 mg EC 1-23 [id number] TABLET BY it y of tablet 00:00: [facility] EVERY DAY Medical Branch PANTOPRAZOL 2020-06 Yes [id number] TAKE 1 Univers E 40 mg EC 1-23 [id number] TABLET BY it y of tablet 00:00: MOUTH [place] EVERY DAY Medical Branch PANTOPRAZOL 2020-06 Yes [id number] TAKE 1 Univers E 40 mg EC 1-23 [id number] TABLET BY it y of tablet 00:00: [facility] EVERY DAY Medical Branch PANTOPRAZOL 2020-06 Yes [id number] TAKE 1 Univers E 40 mg EC 1-23 [id number] TABLET BY it y of tablet 00:00: [facility] EVERY DAY Medical Branch PANTOPRAZOL 2020-06 Yes [id number] TAKE 1 Univers E 40 mg EC 1-23 [id number] TABLET BY it y of tablet 00:00: [facility] EVERY DAY Medical Branch PANTOPRAZOL 2020-06 Yes [id number] TAKE 1 Univers E 40 mg EC 1-23 [id number] TABLET BY it y of tablet 00:00: [facility] EVERY DAY Medical Branch PANTOPRAZOL 2020-06 Yes [id number] TAKE 1 Univers E 40 mg EC 1-23 [id number] TABLET BY it y of tablet 00:00: [facility] EVERY DAY Medical Branch PANTOPRAZOL 2020-06 Yes [id number] TAKE 1 Univers E 40 mg EC 1-23 [id number] TABLET BY it y of tablet 00:00: [facility] 00 EVERY DAY Medical Branch PANTOPRAZOL 2020-06 Yes [id number] TAKE 1 Univers E 40 mg EC 1-23 [id number] TABLET BY it y of tablet 00:00: [facility] EVERY DAY Medical Branch PANTOPRAZOL 2020-06 Yes [id number] TAKE 1 Univers E 40 mg EC 1-23 [id number] TABLET BY it y of tablet 00:00: [facility] EVERY DAY Medical Branch PANTOPRAZOL 2020-06 Yes [id number] TAKE 1 Univers E 40 mg EC 1-23 [id number] TABLET BY it y of tablet 00:00: MOUTH [place] 00 EVERY DAY Medical Branch PANTOPRAZOL 2020-06 Yes [id number] TAKE 1 Univers E 40 mg EC 1-23 [id number] TABLET BY it y of tablet 00:00: [facility] EVERY DAY Medical Branch PANTOPRAZOL 2020-06 Yes [id number] TAKE 1 Univers E 40 mg EC 1-23 [id number] TABLET BY it y of tablet 00:00: [facility] EVERY DAY Medical Branch PANTOPRAZOL 2020-06 Yes [id number] TAKE 1 Univers E 40 mg EC 1-23 [id number] TABLET BY it y of tablet 00:00: [facility] EVERY DAY Medical Branch PANTOPRAZOL 2020-06 Yes [id number] TAKE 1 Univers E 40 mg EC 1-23 [id number] TABLET BY it y of tablet 00:00: [facility] EVERY DAY Medical Branch PANTOPRAZOL 2020-06 Yes [id number] TAKE 1 Univers E 40 mg EC 1-23 [id number] TABLET BY it y of tablet 00:00: [facility] EVERY DAY Medical Branch PANTOPRAZOL 2020-06 Yes [id number] TAKE 1 Univers E 40 mg EC 1-23 [id number] TABLET BY it y of tablet 00:00: [facility] EVERY DAY Medical Branch PANTOPRAZOL 2020-06 Yes [id number] TAKE 1 Univers E 40 mg EC 1-23 [id number] TABLET BY it y of tablet 00:00: [facility] EVERY DAY Medical Branch PANTOPRAZOL 2020-06 Yes [id number] TAKE 1 Univers E 40 mg EC 1-23 [id number] TABLET BY it y of tablet 00:00: [facility] EVERY DAY Medical Branch PANTOPRAZOL 2020-06 Yes [id number] TAKE 1 Univers E 40 mg EC 1-23 [id number] TABLET BY it y of tablet 00:00: [facility] EVERY DAY Medical Branch PANTOPRAZOL 2020-06 Yes [id number] TAKE 1 Univers E 40 mg EC 1-23 [id number] TABLET BY it y of tablet 00:00: [facility] EVERY DAY Medical Branch PANTOPRAZOL 2020-06 Yes [id number] TAKE 1 Univers E 40 mg EC 1-23 [id number] TABLET BY it y of tablet 00:00: [facility] EVERY DAY Medical Branch PANTOPRAZOL 2020-06 Yes [id number] TAKE 1 Univers E 40 mg EC 1-23 [id number] TABLET BY it y of tablet 00:00: [facility] EVERY DAY Medical Branch PANTOPRAZOL 2020-06 Yes [id number] TAKE 1 Univers E 40 mg EC 1-23 [id number] TABLET BY it y of tablet 00:00: [facility] EVERY DAY Medical Branch PANTOPRAZOL 2020-06 Yes [id number] TAKE 1 Univers E 40 mg EC 1-23 [id number] TABLET BY it y of tablet 00:00: [facility] EVERY DAY Medical Branch PANTOPRAZOL 2020-06 Yes [id number] TAKE 1 Univers E 40 mg EC 1-23 [id number] TABLET BY it y of tablet 00:00: [facility] EVERY DAY Medical Branch PANTOPRAZOL 2020-06 Yes [id number] TAKE 1 Univers E 40 mg EC 1-23 [id number] TABLET BY it y of tablet 00:00: [facility] EVERY DAY Medical Branch PANTOPRAZOL 2020-06 Yes [id number] TAKE 1 Univers E 40 mg EC 1-23 [id number] TABLET BY it y of tablet 00:00: [facility] EVERY DAY Medical Branch PANTOPRAZOL 2020-06 Yes [id number] TAKE 1 Univers E 40 mg EC 1-23 [id number] TABLET BY it y of tablet 00:00: [facility] EVERY DAY Medical Branch PANTOPRAZOL 2020-06 Yes [id number] TAKE 1 Univers E 40 mg EC 1-23 [id number] TABLET BY it y of tablet 00:00: [facility] EVERY DAY Medical Branch PANTOPRAZOL 2020-06 Yes [id number] TAKE 1 Univers E 40 mg EC 1-23 [id number] TABLET BY it y of tablet 00:00: [facility] EVERY DAY Medical Branch PANTOPRAZOL 2020-06 Yes [id number] TAKE 1 Univers E 40 mg EC 1-23 [id number] TABLET BY it y of tablet 00:00: [facility] EVERY DAY Medical Branch PANTOPRAZOL 2020-06 Yes [id number] TAKE 1 Univers E 40 mg EC 1-23 [id number] TABLET BY it y of tablet 00:00: [facility] EVERY DAY Medical Branch PANTOPRAZOL 2020-06 Yes [id number] TAKE 1 Univers E 40 mg EC 1-23 [id number] TABLET BY it y of tablet 00:00: [facility] EVERY DAY Medical Branch PANTOPRAZOL 2020-06 Yes [id number] TAKE 1 Univers E 40 mg EC 1-23 [id number] TABLET BY it y of tablet 00:00: [facility] 00 EVERY DAY Medical Branch PANTOPRAZOL 2020-06 Yes [id number] TAKE 1 Univers E 40 mg EC 1-23 [id number] TABLET BY it y of tablet 00:00: MOUTH [place] 00 EVERY DAY Medical Branch PANTOPRAZOL 2020-06 Yes [id number] TAKE 1 [facility] E 40 mg EC 1-23 [id number] TABLET BY it y of tablet 00:00: MOUTH [place] 00 EVERY DAY Medical Branch PANTOPRAZOL 2020-06 Yes [id number] TAKE 1 [facility] E 40 mg EC 1- [id number] TABLET BY it y of tablet 00:00: MOUTH [place] 00 EVERY DAY Medical Branch PANTOPRAZOL 2020-06 Yes [id number] TAKE 1 Univers E 40 mg EC 1- [id number] TABLET BY it y of tablet 00:00: MOUTH [place] 00 EVERY DAY Medical Branch escitalopra 2020-06- No [id number] 10mg Take 1 Univers m oxalate 07-05 tablet by ity of 10 mg 00:00: 00:00 mouth [place] tablet 00 :00 daily. Medical Branch escitalopra 2020-06- No [id number] 10mg Take 1 Univers m oxalate 07-05 tablet by ity of 10 mg 00:00: 00:00 mouth [place] tablet 00 :00 daily. Medical Branch Insulin Yes [id number] Use as Univ ers [place], 9-20 directed ity of Disposable, 00:00: twice [place] (PEN 00 daily to Medical NEEDLE) 32 inject Branch gauge x insulin; " Ndle ICD-10 E11.65 Insulin Yes [id number] Use as Univ ers [place], 9-20 directed ity of Disposable, 00:00: twice [place] (PEN 00 daily to Medical NEEDLE) 32 inject Branch gauge x insulin; " Ndle ICD-10 E11.65 Insulin Yes [id number] Use as Univ ers [place], 9-20 directed ity of Disposable, 00:00: twice [place] (PEN 00 daily to Medical NEEDLE) 32 inject Branch gauge x insulin; " Ndle ICD-10 E11.65 Insulin Yes [id number] Use as Univ ers [place], 9-20 directed ity of Disposable, 00:00: twice [place] (PEN 00 daily to Medical NEEDLE) 32 inject Branch gauge x insulin; " Ndle ICD-10 E11.65 Insulin 2021-0 Yes [id number] Use as Univ ers [place], 9-20 directed ity of Disposable, 00:00: twice [place] (PEN 00 daily to Medical NEEDLE) 32 inject Branch gauge x insulin; 5/" Ndle ICD-10 E11.65 Insulin 0 Yes [id number] Use as Univ ers [place], 9-20 directed ity of Disposable, 00:00: twice [place] (PEN 00 daily to Medical NEEDLE) 32 inject Branch gauge x insulin; 5" Ndle ICD-10 E11.65 Insulin 0 Yes [id number] Use as Univ ers [place], 9-20 directed ity of Disposable, 00:00: twice [place] (PEN 00 daily to Medical NEEDLE) 32 inject Branch gauge x insulin; " Ndle ICD-10 E11.65 Insulin 0 Yes [id number] Use as Univ ers [place], 9-20 directed ity of Disposable, 00:00: twice [place] (PEN 00 daily to Medical NEEDLE) 32 inject Branch gauge x insulin; " Ndle ICD-10 E11.65 Insulin 0 Yes [id number] Use as Univ ers [place], 9-20 directed ity of Disposable, 00:00: twice [place] (PEN 00 daily to Medical NEEDLE) 32 inject Branch gauge x insulin; " Ndle ICD-10 E11.65 Insulin 0 Yes [id number] Use as Univ ers [place], 9-20 directed ity of Disposable, 00:00: twice [place] (PEN 00 daily to Medical NEEDLE) 32 inject Branch gauge x insulin; " Ndle ICD-10 E11.65 Insulin 0 Yes [id number] Use as Univ ers [place], 9-20 directed ity of Disposable, 00:00: twice [place] (PEN 00 daily to Medical NEEDLE) 32 inject Branch gauge x insulin; " Ndle ICD-10 E11.65 Insulin 2020-0 Yes [id number] Use as Univ ers [place], 9-20 directed ity of Disposable, 00:00: twice [place] (PEN 00 daily to Medical NEEDLE) 32 inject Branch gauge x insulin; " Ndle ICD-10 E11.65 Insulin 0 Yes [id number] Use as Univ ers [place], 9-20 directed ity of Disposable, 00:00: twice [place] (PEN 00 daily to Medical NEEDLE) 32 inject Branch gauge x insulin; /" Ndle ICD-10 E11.65 Insulin 2020-0 Yes [id number] Use as Univ ers [place], 9-20 directed ity of Disposable, 00:00: twice [place] (PEN 00 daily to Medical NEEDLE) 32 inject Branch gauge x insulin; 5/32" Ndle ICD-10 E11.65 Insulin 0 Yes [id number] Use as Univ ers [place], 9-20 directed ity of Disposable, 00:00: twice [place] (PEN 00 daily to Medical NEEDLE) 32 inject Branch gauge x insulin; 5/" Ndle ICD-10 E11.65 Insulin 0 Yes [id number] Use as Univ ers [place], 9-20 directed ity of Disposable, 00:00: twice [place] (PEN 00 daily to Medical NEEDLE) 32 inject Branch gauge x insulin; 5" Ndle ICD-10 E11.65 Insulin 0 Yes [id number] Use as Univ ers [place], 9-20 directed ity of Disposable, 00:00: twice [place] (PEN 00 daily to Medical NEEDLE) 32 inject Branch gauge x insulin; 5/" Ndle ICD-10 E11.65 Insulin 0 Yes [id number] Use as Univ ers [place], 9-20 directed ity of Disposable, 00:00: twice [place] (PEN 00 daily to Medical NEEDLE) 32 inject Branch gauge x insulin; 5/" Ndle ICD-10 E11.65 Insulin 0 Yes [id number] Use as Univ ers [place], 9-20 directed ity of Disposable, 00:00: twice [place] (PEN 00 daily to Medical NEEDLE) 32 inject Branch gauge x insulin; 5/" Ndle ICD-10 E11.65 Insulin 0 Yes [id number] Use as Univ ers [place], 9-20 directed ity of Disposable, 00:00: twice [place] (PEN 00 daily to Medical NEEDLE) 32 inject Branch gauge x insulin; 5/" Ndle ICD-10 E11.65 Insulin 0 Yes [id number] Use as Univ ers [place], 9-20 directed ity of Disposable, 00:00: twice [place] (PEN 00 daily to Medical NEEDLE) 32 inject Branch gauge x insulin; 5/32" Ndle ICD-10 E11.65 Insulin 0 Yes [id number] Use as Univ ers [place], 9-20 directed ity of Disposable, 00:00: twice [place] (PEN 00 daily to Medical NEEDLE) 32 inject Branch gauge x insulin; 5/32" Ndle ICD-10 E11.65 Insulin 2020-0 Yes [id number] Use as Univ ers [place], 9-20 directed ity of Disposable, 00:00: twice [place] (PEN 00 daily to Medical NEEDLE) 32 inject Branch gauge x insulin; 5/32" Ndle ICD-10 E11.65 Insulin 2020-0 Yes [id number] Use as Univ ers [place], 9-20 directed ity of Disposable, 00:00: twice [place] (PEN 00 daily to Medical NEEDLE) 32 inject Branch gauge x insulin; 5/32" Ndle ICD-10 E11.65 Insulin 2020-0 Yes [id number] Use as Univ ers [place], 9-20 directed ity of Disposable, 00:00: twice [place] (PEN 00 daily to Medical NEEDLE) 32 inject Branch gauge x insulin; 5/" Ndle ICD-10 E11.65 Insulin 2020-0 Yes [id number] Use as Univ ers [place], 9-20 directed ity of Disposable, 00:00: twice [place] (PEN 00 daily to Medical NEEDLE) 32 inject Branch gauge x insulin; 5/" Ndle ICD-10 E11.65 Insulin 2020-0 Yes [id number] Use as Univ ers [place], 9-20 directed ity of Disposable, 00:00: twice [place] (PEN 00 daily to Medical NEEDLE) 32 inject Branch gauge x insulin; 5" Ndle ICD-10 E11.65 Insulin 2020-0 Yes [id number] Use as Univ ers [place], 9-20 directed ity of Disposable, 00:00: twice [place] (PEN 00 daily to Medical NEEDLE) 32 inject Branch gauge x insulin; 5/" Ndle ICD-10 E11.65 Insulin 2020-0 Yes [id number] Use as Univ ers [place], 9-20 directed ity of Disposable, 00:00: twice [place] (PEN 00 daily to Medical NEEDLE) 32 inject Branch gauge x insulin; 5/32" Ndle ICD-10 E11.65 Insulin 2020-0 Yes [id number] Use as Univ ers [place], 9-20 directed ity of Disposable, 00:00: twice [place] (PEN 00 daily to Medical NEEDLE) 32 inject Branch gauge x insulin; 5/32" Ndle ICD-10 E11.65 Insulin 2020-0 Yes [id number] Use as Univ ers [place], 9-20 directed ity of Disposable, 00:00: twice [place] (PEN 00 daily to Medical NEEDLE) 32 inject Branch gauge x insulin; 5/32" Ndle ICD-10 E11.65 Insulin Yes [id number] Use as Univ ers [place], 03-10 directed ity of Disposable, 00:00: twice [place] (PEN 00 daily to Medical NEEDLE) 32 inject Branch gauge x insulin; 5/32" Ndle ICD-10 E11.65 Insulin 2022- No [id number] Use as Uni vers [place], 03-10 directed ity of Disposable, 00:00: 00:00 [place] (PEN 00 :00 daily to Medical NEEDLE) 32 inject Branch gauge x insulin; 5/" Ndle ICD-10 E11.65 Insulin 2022- No [id number] Use as Uni vers [place], 03-10 directed ity of Disposable, 00:00: 00:00 [place] (PEN 00 :00 daily to Medical NEEDLE) 32 inject Branch gauge x insulin; 5/32" Ndle ICD-10 E11.65 blood sugar 2021- No [id number] USE TWICE [facility] diagnostic 03-10-04 DAILY FOR ity of (ASCENSIA 00:00: 00:00 BLOOD [place] MICROFILL) 00 :00 GLUCOSE Medica l strip MONITORING Branch FOR ICD E11.9 blood sugar 2021- No [id number] USE TWICE Univers diagnostic 03-10-04 DAILY FOR ity of (ASCENSIA 00:00: 00:00 BLOOD [place] MICROFILL) 00 :00 GLUCOSE Medica l strip MONITORING Branch FOR ICD E11.9 insulin 2021- No [id number] 20U inject 20 [facility] aspart 03-10 05-31 Units ity of protamine-i 00:00: 00:00 under the [place] nsulin 00 :00 skin 2 Medical aspart (two) Branch (NOVOLOG times MIX 70-30 daily U-100 before INSULN) 100 breakfast unit/mL and (70-30) dinner. injection insulin 2021- No [id number] 20U inject 20 [facility] aspart 03-10 05-31 Units ity of protamine-i 00:00: 00:00 under the [place] nsulin 00 :00 skin 2 Medical aspart (two) Branch (NOVOLOG times MIX 70-30 daily U-100 before INSULN) 100 breakfast unit/mL and (70-30) dinner. injection Immunizations Ordered Filled Immunization Date Status Comments [facility] e Immunization Name Name Influenza High Dose 2020-04-19 Completed [facility] [place] 00:00:00 [place] [facility] Influenza High Dose 2020-04-19 Completed [facility] [place] 00:00:00 [place] [facility] Influenza High Dose 2020-04-19 Completed [facility] [place] 00:00:00 [place] [facility] Influenza High Dose 2020-04-19 Completed [facility] [place] 00:00:00 [place] [facility] Influenza High Dose 2020-04-19 Completed [facility] [place] 00:00:00 [place] [facility] Influenza High Dose 2020-04-19 Completed [facility] [place] 00:00:00 [place] [facility] Influenza High Dose 2020-04-19 Completed [facility] [place] 00:00:00 [place] [facility] Influenza High Dose 2020-04-19 Completed [facility] [place] 00:00:00 [place] [facility] Influenza High Dose 2020-04-19 Completed [facility] [place] 00:00:00 [place] [facility] Influenza High Dose 2020-04-19 Completed [facility] [place] 00:00:00 [place] [facility] Influenza High Dose 2020-04-19 Completed [facility] [place] 00:00:00 [place] [facility] Influenza High Dose 2020-04-19 Completed [facility] [place] 00:00:00 [place] [facility] Influenza High Dose 2020-04-19 Completed [facility] [place] 00:00:00 [place] [facility] Influenza High Dose 2020-04-19 Completed [facility] [place] 00:00:00 [place] [facility] Influenza High Dose 2020-04-19 Completed [facility] [place] 00:00:00 [place] [facility] Influenza High Dose 2020-04-19 Completed [facility] [place] 00:00:00 [place] [facility] Influenza High Dose 2020-04-19 Completed [facility] [place] 00:00:00 [place] [facility] Influenza High Dose 2020-04-19 Completed [facility] [place] 00:00:00 [place] [facility] Influenza High Dose 2020-04-19 Completed [facility] [place] 00:00:00 [place] [facility] Influenza High Dose 2020-04-19 Completed [facility] [place] 00:00:00 [place] [facility] Influenza High Dose 2020-04-19 Completed [facility] [place] 00:00:00 [place] [facility] Influenza High Dose 2020-04-19 Completed [facility] [place] 00:00:00 [place] [facility] Influenza High Dose 2020-04-19 Completed [facility] [place] 00:00:00 [place] [facility] Influenza High Dose 2020-04-19 Completed [facility] [place] 00:00:00 [place] [facility] Influenza High Dose 2020-04-19 Completed [facility] [place] 00:00:00 [place] [facility] Influenza High Dose 2020-04-19 Completed [facility] [place] 00:00:00 [place] [facility] Influenza High Dose 2020-04-19 Completed [facility] [place] 00:00:00 [place] [facility] Influenza High Dose 2020-04-19 Completed [facility] [place] 00:00:00 [place] [facility] Influenza High Dose 2020-04-19 Completed [facility] [place] 00:00:00 [facility] Branch Influenza High Dose 2020-04-19 Completed [facility] [place] 00:00:00 [facility] Branch Influenza High Dose 2020-04-19 Completed [facility] [place] 00:00:00 [facility] Branch Influenza High Dose 2020-04-19 Completed [facility] [place] 00:00:00 [facility] Branch Influenza High Dose 2020-04-19 Completed [facility] [place] 00:00:00 [facility] Branch Influenza High Dose 2020-04-19 Completed [facility] [place] 00:00:00 [facility] Branch Influenza High Dose 2020-04-19 Completed [facility] [place] 00:00:00 [facility] Branch Influenza High Dose 2020-04-19 Completed [facility] [place] 00:00:00 [place] [facility] Influenza High Dose 2020-04-19 Completed [facility] [place] 00:00:00 [facility] Influenza High Dose 2020-04-19 Completed [facility] [place] 00[facility]00 [facility] Influenza High Dose 2020-04-19 Completed [facility] [place] 00:00:00 [facility] Influenza High Dose 2020-04-19 Completed [facility] [place] 00:00:00 [facility] Influenza High Dose 2020-04-19 Completed [facility] [place] 00:00:00 [facility] Influenza High Dose 2020-04-19 Completed [facility] [place] 00:00:00 [facility] Influenza High Dose 2020-04-19 Completed [facility] [place] 00:00:00 [facility] Influenza High Dose 2020-04-19 Completed [facility] [place] 00:00:00 [facility] Influenza High Dose 2020-04-19 Completed [facility] [place] 00:00:00 [facility] Influenza High Dose 2020-04-19 Completed [facility] [place] 00:00:00 [facility] Influenza High Dose 2020-04-19 Completed [facility] [place] 00:00:00 [facility] Influenza High Dose 2020-04-19 Completed [facility] [place] 00:00:00 [facility] Influenza High Dose 2020-04-19 Completed [facility] [place] 00:00:00 [facility] Influenza High Dose 2020-04-19 Completed [facility] [place] 00:00:00 [facility] Influenza High Dose 2019-04-11 Completed [facility] 00:00:00 [facility] Influenza High Dose 2019-04-11 Completed [facility] 00:00:00 [facility] Influenza High Dose 2019-04-11 Completed [facility] 00:00:00 [facility] Influenza High Dose 2019-04-11 Completed [facility] 00:00:00 [facility] Influenza High Dose 2019-04-11 Completed [facility] 00:00:00 [facility] Influenza High Dose 2019-04-11 Completed [facility] 00:00:00 [facility] Influenza High Dose 2019-04-11 Completed [facility] 00:00:00 [facility] Influenza High Dose 2019-04-11 Completed [facility] 00:00:00 [facility] Influenza High Dose 2019-04-11 Completed [facility] 00:00:00 [facility] Influenza High Dose 2019-04-11 Completed [facility] 00:00:00 [facility] Influenza High Dose 2019-04-11 Completed [facility] 00:00:00 [facility] Influenza High Dose 2019-04-11 Completed [facility] 00:00:00 [facility] Influenza High Dose 2019-04-11 Completed [facility] 00:00:00 [facility] Influenza High Dose 2019-04-11 Completed [facility] of 00:00:00 [facility] Influenza High Dose 2019-04-11 Completed [facility] of 00:00:00 [facility] Influenza High Dose 2019-04-11 Completed [facility] 00:00:00 [facility] Influenza High Dose 2019-04-11 Completed [facility] 00:00:00 [facility] Influenza High Dose 2019-04-11 Completed [facility] 00:00:00 [facility] Influenza High Dose 2019-04-11 Completed [facility] of 00:00:00 [facility] Influenza High Dose 2019-04-11 Completed [facility] of 00:00:00 [facility] Influenza High Dose 2019-04-11 Completed [facility] of 00:00:00 [facility] Influenza High Dose 2019-04-11 Completed [facility] of 00:00:00 [facility] Influenza High Dose 2019-04-11 Completed [facility] of 00:00:00 [facility] Influenza High Dose 2019-04-11 Completed [facility] of 00:00:00 [facility] Influenza High Dose 2019-04-11 Completed [facility] of 00:00:00 [facility] Influenza High Dose 2019-04-11 Completed [facility] of 00:00:00 [facility] Influenza High Dose 2019-04-11 Completed [facility] of 00:00:00 [facility] Influenza High Dose 2019-04-11 Completed [facility] of 00:00:00 [facility] Influenza High Dose 2019-04-11 Completed [facility] of 00:00:00 [facility] Influenza High Dose 2019-04-11 Completed [facility] of 00:00:00 [facility] Influenza High Dose 2019-04-11 Completed [facility] of 00:00:00 [facility] Influenza High Dose 2019-04-11 Completed [facility] 00:00:00 [facility] Influenza High Dose 2019-04-11 Completed [facility] of 00:00:00 [facility] Influenza High Dose 2019-04-11 Completed [facility] of 00:00:00 [facility] Influenza High Dose 2019-04-11 Completed [facility] of 00:00:00 [facility] Influenza High Dose 2019-04-11 Completed [facility] of 00:00:00 [facility] Influenza High Dose 2019-04-11 Completed [facility] of 00:00:00 [facility] Influenza High Dose 2019-04-11 Completed [facility] of 00:00:00 [facility] Influenza High Dose 2019-04-11 Completed [facility] of 00:00:00 [facility] Influenza High Dose 2019-04-11 Completed [facility] of 00:00:00 [facility] Influenza High Dose 2019-04-11 Completed [facility] of 00:00:00 [facility] Influenza High Dose 2019-04-11 Completed [facility] of 00:00:00 [facility] Influenza High Dose 2019-04-11 Completed [facility] of 00:00:00 [facility] Influenza High Dose 2019-04-11 Completed [facility] of 00:00:00 [facility] Influenza High Dose 2019-04-11 Completed [facility] of 00:00:00 [facility] Influenza High Dose 2019-04-11 Completed [facility] of 00:00:00 [facility] Influenza High Dose 2019-04-11 Completed [facility] of 00:00:00 [facility] Influenza High Dose 2019-04-11 Completed [facility] of 00:00:00 [facility] Influenza High Dose 2019-04-11 Completed [facility] of 00:00:00 [facility] Influenza High Dose 2019-04-11 Completed [facility] of 00:00:00 [facility] Influenza High Dose 2018-03-01 Completed [facility] of 00:00:00 [facility] Influenza High Dose 2018-03-01 Completed [facility] of 00:00:00 [facility] Influenza High Dose 2018-03-01 Completed [facility] of 00:00:00 [facility] Influenza High Dose 2018-03-01 Completed [facility] of 00:00:00 [facility] Influenza High Dose 2018-03-01 Completed [facility] of 00:00:00 [facility] Influenza High Dose 2018-03-01 Completed [facility] of 00:00:00 [facility] Influenza High Dose 2018-03-01 Completed [facility] of 00:00:00 [facility] Influenza High Dose 2018-03-01 Completed [facility] of 00:00:00 [facility] Influenza High Dose 2018-03-01 Completed [facility] of 00:00:00 [facility] Influenza High Dose 2018-03-01 Completed [facility] of 00:00:00 [facility] Influenza High Dose 2018-03-01 Completed [facility] of 00:00:00 [facility] Influenza High Dose 2018-03-01 Completed [facility] of 00:00:00 [facility] Influenza High Dose 2018-03-01 Completed [facility] of 00:00:00 [facility] Influenza High Dose 2018-03-01 Completed [facility] of 00:00:00 [facility] Influenza High Dose 2018-03-01 Completed [facility] of 00:00:00 [facility] Influenza High Dose 2018-03-01 Completed [facility] of 00:00:00 [facility] Influenza High Dose 2018-03-01 Completed [facility] of 00:00:00 [facility] Influenza High Dose 2018-03-01 Completed [facility] of 00:00:00 [facility] Influenza High Dose 2018-03-01 Completed [facility] of 00:00:00 [facility] Influenza High Dose 2018-03-01 Completed [facility] of 00:00:00 [facility] Influenza High Dose 2018-03-01 Completed [facility] of 00:00:00 [facility] Influenza High Dose 2018-03-01 Completed [facility] of 00:00:00 [facility] Influenza High Dose 2018-03-01 Completed [facility] of 00:00:00 [facility] Influenza High Dose 2018-03-01 Completed [facility] of 00:00:00 [facility] Influenza High Dose 2018-03-01 Completed [facility] of 00:00:00 [facility] Influenza High Dose 2018-03-01 Completed [facility] of 00:00:00 [facility] Influenza High Dose 2018-03-01 Completed [facility] of 00:00:00 [facility] Influenza High Dose 2018-03-01 Completed [facility] of 00:00:00 [facility] Influenza High Dose 2018-03-01 Completed [facility] of 00:00:00 [facility] Influenza High Dose 2018-03-01 Completed [facility] of 00:00:00 [facility] Influenza High Dose 2018-03-01 Completed [facility] of 00:00:00 [facility] Influenza High Dose 2018-03-01 Completed [facility] of 00:00:00 [facility] Influenza High Dose 2018-03-01 Completed [facility] 00:00:00 [facility] Influenza High Dose 2018-03-01 Completed [facility] 00:00:00 [facility] Influenza High Dose 2018-03-01 Completed [facility] of 00:00:00 [facility] Influenza High Dose 2018-03-01 Completed [facility] of 00:00:00 [facility] Influenza High Dose 2018-03-01 Completed [facility] 00:00:00 [facility] Influenza High Dose 2018-03-01 Completed [facility] 00:00:00 [facility] Influenza High Dose 2018-03-01 Completed [facility] of 00:00:00 [facility] Influenza High Dose 2018-03-01 Completed [facility] of 00:00:00 [facility] Influenza High Dose 2018-03-01 Completed [facility] of 00:00:00 [facility] Influenza High Dose 2018-03-01 Completed [facility] of 00:00:00 [facility] Influenza High Dose 2018-03-01 Completed [facility] of 00:00:00 [facility] Influenza High Dose 2018-03-01 Completed [facility] of 00:00:00 [facility] Influenza High Dose 2018-03-01 Completed [facility] of 00:00:00 [facility] Influenza High Dose 2018-03-01 Completed [facility] 00:00:00 [facility] Influenza High Dose 2018-03-01 Completed [facility] of 00:00:00 [facility] Influenza High Dose 2018-03-01 Completed [facility] of 00:00:00 [facility] Influenza High Dose 2018-03-01 Completed [facility] of 00:00:00 [facility] Influenza High Dose 2018-03-01 Completed [facility] of 00:00:00 [facility] Influenza Virus 2017-03-21 Completed [facility] Vaccine 00:00:00 [facility] Influenza Virus 2017-03-21 Completed [facility] Vaccine 00:00:00 [facility] Influenza Virus 2017-03-21 Completed [facility] Vaccine 00:00:00 [facility] Influenza Virus 2017-03-21 Completed [facility] of Vaccine 00:00:00 [facility] Influenza Virus 2017-03-21 Completed [facility] Vaccine 00:00:00 [facility] Influenza Virus 2017-03-21 Completed [facility] of Vaccine 00:00:00 [facility] Influenza Virus 2017-03-21 Completed [facility] Vaccine 00:00:00 [facility] Influenza Virus 2017-03-21 Completed [facility] of Vaccine 00:00:00 [facility] Influenza Virus 2017-03-21 Completed [facility] Vaccine 00:00:00 [facility] Influenza Virus 2017-03-21 Completed [facility] Vaccine 00:00:00 [facility] Influenza Virus 2017-03-21 Completed [facility] of Vaccine 00:00:00 [facility] Influenza Virus 2017-03-21 Completed [facility] of Vaccine 00:00:00 [facility] Influenza Virus 2017-03-21 Completed [facility] of Vaccine 00:00:00 [facility] Influenza Virus 2017-03-21 Completed [facility] of Vaccine 00:00:00 [facility] Influenza Virus 2017-03-21 Completed [facility] of Vaccine 00:00:00 [facility] Influenza Virus 2017-03-21 Completed [facility] of Vaccine 00:00:00 [facility] Influenza Virus 2017-03-21 Completed [facility] of Vaccine 00:00:00 [facility] Influenza Virus 2017-03-21 Completed [facility] of Vaccine 00:00:00 [facility] Influenza Virus 2017-03-21 Completed [facility] Vaccine 00:00:00 [facility] Influenza Virus 2017-03-21 Completed [facility] Vaccine 00:00:00 [facility] Influenza Virus 2017-03-21 Completed [facility] Vaccine 00:00:00 [facility] Influenza Virus 2017-03-21 Completed [facility] of Vaccine 00:00:00 [facility] Influenza Virus 2017-03-21 Completed [facility] Vaccine 00:00:00 [facility] Influenza Virus 2017-03-21 Completed [facility] Vaccine 00:00:00 [facility] Influenza Virus 2017-03-21 Completed [facility] of Vaccine 00:00:00 [facility] Influenza Virus 2017-03-21 Completed [facility] of Vaccine 00:00:00 [facility] Influenza Virus 2017-03-21 Completed [facility] of Vaccine 00:00:00 [facility] Influenza Virus 2017-03-21 Completed [facility] Vaccine 00:00:00 [facility] Influenza Virus 2017-03-21 Completed [facility] Vaccine 00:00:00 [facility] Influenza Virus 2017-03-21 Completed [facility] Vaccine 00:00:00 [facility] Influenza Virus 2017-03-21 Completed [facility] Vaccine 00:00:00 [facility] Influenza Virus 2017-03-21 Completed [facility] of Vaccine 00:00:00 [facility] Influenza Virus 2017-03-21 Completed [facility] Vaccine 00:00:00 [facility] Influenza Virus 2017-03-21 Completed [facility] Vaccine 00:00:00 [facility] Influenza Virus 2017-03-21 Completed [facility] Vaccine 00:00:00 [facility] Influenza Virus 2017-03-21 Completed [facility] Vaccine 00:00:00 [facility] Influenza Virus 2017-03-21 Completed [facility] Vaccine 00:00:00 [facility] Influenza Virus 2017-03-21 Completed [facility] Vaccine 00:00:00 [facility] Influenza Virus 2017-03-21 Completed [facility] Vaccine 00:00:00 [facility] Influenza Virus 2017-03-21 Completed [facility] Vaccine 00:00:00 [facility] Influenza Virus 2017-03-21 Completed [facility] Vaccine 00:00:00 [facility] Influenza Virus 2017-03-21 Completed [facility] Vaccine 00:00:00 [facility] Influenza Virus 2017-03-21 Completed [facility] Vaccine 00:00:00 [facility] Influenza Virus 2017-03-21 Completed [facility] Vaccine 00:00:00 [facility] Influenza Virus 2017-03-21 Completed [facility] Vaccine 00:00:00 [facility] Influenza Virus 2017-03-21 Completed [facility] Vaccine 00:00:00 [facility] Influenza Virus 2017-03-21 Completed [facility] Vaccine 00:00:00 [facility] Influenza Virus 2017-03-21 Completed [facility] Vaccine 00:00:00 [facility] Influenza Virus 2017-03-21 Completed [facility] of Vaccine 00:00:00 [facility] Influenza Virus 2017-03-21 Completed [facility] of Vaccine 00:00:00 [facility] TDAP 2015-10-03 Completed University of 00:00:00 [facility] TDAP 2015-10-03 Completed University of 00:00:00 [facility] TDAP 2015-10-03 Completed [facility] of 00:00:00 [facility] TDAP 2015-10-03 Completed [facility] 00:00:00 [facility] TDAP 2015-10-03 Completed [facility] 00:00:00 [facility] TDAP 2015-10-03 Completed [facility] 00:00:00 [facility] TDAP 2015-10-03 Completed [facility] 00:00:00 [facility] TDAP 2015-10-03 Completed [facility] 00:00:00 [facility] TDAP 2015-10-03 Completed [facility] 00:00:00 [facility] TDAP 2015-10-03 Completed [facility] of 00:00:00 [facility] TDAP 2015-10-03 Completed [facility] of 00:00:00 [facility] TDAP 2015-10-03 Completed [facility] 00:00:00 [facility] TDAP 2015-10-03 Completed University of 00:00:00 [facility] TDAP 2015-10-03 Completed [facility] of 00:00:00 [facility] TDAP 2015-10-03 Completed [facility] of 00:00:00 [facility] TDAP 2015-10-03 Completed [facility] of 00:00:00 [facility] TDAP 2015-10-03 Completed [facility] 00:00:00 [facility] TDAP 2015-10-03 Completed [facility] 00:00:00 [facility] TDAP 2015-10-03 Completed [facility] 00:00:00 [facility] TDAP 2015-10-03 Completed [facility] 00:00:00 [facility] TDAP 2015-10-03 Completed [facility] 00:00:00 [facility] TDAP 2015-10-03 Completed [facility] 00:00:00 [facility] TDAP 2015-10-03 Completed [facility] 00:00:00 [facility] TDAP 2015-10-03 Completed [facility] 00:00:00 [facility] TDAP 2015-10-03 Completed [facility] 00:00:00 [facility] TDAP 2015-10-03 Completed [facility] 00:00:00 [facility] TDAP 2015-10-03 Completed [facility] 00:00:00 [facility] TDAP 2015-10-03 Completed [facility] of 00:00:00 [facility] TDAP 2015-10-03 Completed [facility] 00:00:00 [facility] TDAP 2015-10-03 Completed [facility] 00:00:00 [facility] TDAP 2015-10-03 Completed [facility] 00:00:00 [facility] TDAP 2015-10-03 Completed [facility] 00:00:00 [facility] TDAP 2015-10-03 Completed [facility] of 00:00:00 [facility] TDAP 2015-10-03 Completed [facility] of 00:00:00 [facility] TDAP 2015-10-03 Completed University of 00:00:00 [facility] TDAP 2015-10-03 Completed [facility] of 00:00:00 [facility] TDAP 2015-10-03 Completed [facility] of 00:00:00 [facility] TDAP 2015-10-03 Completed [facility] 00:00:00 [facility] TDAP 2015-10-03 Completed [facility] 00:00:00 [facility] TDAP 2015-10-03 Completed [facility] of 00:00:00 [facility] TDAP 2015-10-03 Completed [facility] of 00:00:00 [facility] TDAP 2015-10-03 Completed [facility] of 00:00:00 [facility] TDAP 2015-10-03 Completed [facility] of 00:00:00 [facility] TDAP 2015-10-03 Completed [facility] of 00:00:00 [facility] TDAP 2015-10-03 Completed [facility] of 00:00:00 [facility] TDAP 2015-10-03 Completed [facility] of 00:00:00 [facility] TDAP 2015-10-03 Completed [facility] of 00:00:00 [facility] TDAP 2015-10-03 Completed University of 00:00:00 [facility] TDAP 2015-10-03 Completed [facility] of 00:00:00 [facility] TDAP 2015-10-03 Completed [facility] of 00:00:00 [facility] Pneumococcal 13 2012-12-07 Completed [facility] of [...] Time Observation Value Comments Source Systolic blood 2022-09-17 15:58:00 129 mm[Hg] [facility] pressure [facility] Diastolic blood 2022-09-17 15:58:00 69 mm[Hg] [facility] pressure [facility] Heart rate 2022-09-17 15:58:00 84 /min [facility] Body height 2022-09-17 15:58:00 177.8 cm [facility] Body weight 2022-09-17 15:58:00 85.186 kg [facility] BMI 2022-09-17 15:58:00 26.95 kg/m2 [facility] Oxygen saturation in 2022-09-17 15:58:00 95 /min [facility] Arterial blood by [facility] Systolic blood 2022-07-27 17:40:00 120 mm[Hg] [facility] pressure [facility] Diastolic blood 2022-07-27 17:40:00 71 mm[Hg] [facility] Heart rate 2022-07-27 17:40:00 83 /min [facility] Respiratory rate 2022-07-27 17:40:00 19 /min [facility] Oxygen saturation in 2022-07-27 17:40:00 97 /min [facility] Arterial blood by [facility] Body temperature 2022-07-27 14:43:00 37.61 Felicia [facility] Body weight 2022-07-27 14:43:00 83.915 kg [facility] BMI 2022-07-27 14:43:00 26.54 kg/m2 [facility] Systolic blood 2022-06-18 17:46:00 148 mm[Hg] [facility] Diastolic blood 2022-06-18 17:46:00 60 mm[Hg] [facility] Respiratory rate 2022-06-18 17:46:00 20 /min [facility] Oxygen saturation in 2022-06-18 17:46:00 98 /min [facility] Arterial blood by [facility] Body weight 2022-06-18 13:00:00 83.915 kg [facility] BMI 2022-06-18 13:00:00 26.54 kg/m2 [facility] Systolic blood 2022-06-18 16:55:00 121 mm[Hg] [facility] Diastolic blood 2022-06-18 16:55:00 58 mm[Hg] [facility] Respiratory rate 2022-06-18 16:55:00 16 /min [facility] Oxygen saturation in 2022-06-18 16:55:00 98 /min [facility] Arterial blood by [facility] Body weight 2022-06-18 13:00:00 83.915 kg [facility] BMI 2022-06-18 13:00:00 26.54 kg/m2 [facility] Systolic blood 2022-06-01 16:58:00 126 mm[Hg] [facility] Diastolic blood 2022-06-01 16:58:00 99 mm[Hg] [facility] Heart rate 2022-06-01 16:58:00 71 /min [facility] Body temperature 2022-06-01 16:58:00 36.78 Felicia [facility] Respiratory rate 2022-06-01 16:58:00 20 /min [facility] Body weight 2022-06-01 16:58:00 83.915 kg [facility] BMI 2022-06-01 16:58:00 26.54 kg/m2 [facility] Oxygen saturation in 2022-06-01 16:58:00 99 /min [facility] Arterial blood by [facility] Systolic blood 2022-05-19 22:18:00 129 mm[Hg] [facility] Diastolic blood 2022-05-19 22:18:00 74 mm[Hg] [facility] Heart rate 2022-05-19 22:18:00 76 /min [facility] Body temperature 2022-05-19 22:18:00 36.89 Felicia [facility] Respiratory rate 2022-05-19 22:18:00 18 /min [facility] Body height 2022-05-19 22:18:00 177.8 cm [facility] Body weight 2022-05-19 22:18:00 84.732 kg [facility] BMI 2022-05-19 22:18:00 26.80 kg/m2 [facility] Oxygen saturation in 2022-05-19 22:18:00 98 /min [facility] Arterial blood by [facility] monika P[facility] Systolic blood 2022-03-30 18:13:00 135 mm[Hg] [facility] Diastolic blood 2022-03-30 18:13:00 67 mm[Hg] [facility] Heart rate 2022-03-30 18:11:00 66 /min [facility] Body temperature 2022-03-30 18:11:00 36.56 Felicia [facility] Respiratory rate 2022-03-30 18:11:00 18 /min [facility] Body height 2022-03-30 18:11:00 177.8 cm [facility] Body weight 2022-03-30 18:11:00 86.818 kg [facility] BMI 2022-03-30 18:11:00 27.46 kg/m2 [facility] Oxygen saturation in 2022-03-30 18:11:00 98 /min [facility] Arterial blood by [facility] Pulse oximetry Branch Body weight 2022-03-18 15:50:00 86.682 kg [facility] BMI 2022-03-18 15:50:00 27.42 kg/m2 [facility] Body weight 2022-02-25 19:14:00 85.276 kg [facility] BMI 2022-02-25 19:14:00 26.98 kg/m2 [facility] Systolic blood 2022-02-02 13:30:00 132 mm[Hg] [facility] Diastolic blood 2022-02-02 13:30:00 80 mm[Hg] [facility] Heart rate 2022-02-02 13:30:00 60 /min [facility] Respiratory rate 2022-02-02 13:30:00 16 /min [facility] Body height 2022-02-02 13:30:00 177.8 cm [facility] Body weight 2022-02-02 13:30:00 85.73 kg [facility] of [facility] BMI 2022-02-02 13:30:00 27.12 kg/m2 [facility] Oxygen saturation in 2022-02-02 13:30:00 99 /min [facility] Arterial blood by [facility] Pulse oximetry Branch Systolic blood 2021-10-29 21:34:00 139 mm[Hg] Univer sity of pressure [facility] Diastolic blood 2021-10-29 21:34:00 76 mm[Hg] [facility] Heart rate 2021-10-29 21:34:00 66 /min [facility] Respiratory rate 2021-10-29 21:34:00 18 /min [facility] Body height 2021-10-29 21:34:00 177.8 cm [facility] Body weight 2021-10-29 21:34:00 86.909 kg [facility] BMI 2021-10-29 21:34:00 27.49 kg/m2 [facility] Oxygen saturation in 2021-10-29 21:34:00 98 /min [facility] Arterial blood by [facility] Pulse oximetry Branch Procedures Procedure Date / Time Performing Clinician Source Performed AUTHORIZATION FOR RELEASE 2022-10-23 05:01:00 Doctor Unafrank, [facility] Name Medical [place] COMP. METABOLIC PANEL 2022-09-18 15:14:00 Evelin Colmenares [facility] ([id number]) Medical [place] CBC WITH DIFF 2022-09-18 15:14:00 Fariba [facility]arest[facility] ASSIGNMENT OF BENEFITS 2022-09-17 15:40:48 Doctor Vidhi, [facility] Name Medical [place] EXTERNAL PROVIDER RECORDS 2022-08-05 06:01:00 Doctor Vidhi, [facility] Name [facility] XR CHEST 1 VW 2022-07-27 16:06:27 Javier Morris [facility] COMP. METABOLIC PANEL 2022-07-27 15:23:00 Javier Morris [facility] ([id number]) Medical [place] CBC WITH DIFF 2022-07-27 15:23:00 Javier Morris [facility] RAPID INFLUENZA A/B 2022-07-27 15:23:00 Javier Morris [facility] COVID-19 (ID NOW RAPID 2022-07-27 15:23:00 Javier Morris [facility] TESTING) Medical Branch CONSENT/REFUSAL FOR 2022-07-27 14:40:28 Doctor Unafrank [facility] DIAGNOSIS AND TREATMENT [place] [facility] [place] CARDIAC CATHETERIZATION 2022-06-18 15:56:36 Kamran Hua [facility] CARDIAC CATHETERIZATION 2022-06-18 15:56:36 Karman Hua [facility] CARDIAC CATHETERIZATION 2022-06-18 15:56:36 Kamran Hua [facility] CARDIAC CATHETERIZATION 2022-06-18 15:56:36 Kamran Hua [facility] OUTPATIENT CARDIAC 2022-06-18 06:01:00 Doctor Vidhi [facility] CATHETERIZATION DOCUMENTS [place] [facility] CONSENT/REFUSAL FOR 2022-06-01 16:39:57 Doctor Vidhi [facility] DIAGNOSIS AND TREATMENT [place] [facility] POCT SARS-COV-2 ANTIGEN 2022-05-19 22:24:00 Haley Camejo [facility] (BINAX NOW) [facility] EXTERNAL PROVIDER RECORDS 2022-04-08 05:01:00 Doctor Vid[facility] [place] [facility] POCT URINALYSIS AUTO 2022-03-30 18:15:00 Franklyn Bañuelos [facility] DISCLOSURE AND CONSENT, 2022-03-30 05:01:00 Doctor Unassoctavio, [facility] MEDICAL AND SURGICAL [place] [facility] PROCEDURES POCT URINALYSIS AUTO 2022-02-02 13:33:00 Franklyn Bañuelos [facility] HB ECG ROUTINE & RHYTHM 2021-10-29 21:44:44 Kamran Hua [facility] Encounters Start End Encounter Admission Attending Care Care Encounter Source Date/Time Date/Time Type Type Clinicians Facility Department ID 2022-10-13 [id number] Univers 11:41:41 FRANKLYN ity [facility] 2021-11-24 [facility] [id number] Univers 16:22:05 SENDTEODORO tafoya [facility] 2021-04-20 Outpatient HELENE [facility] DARIELA [id number] Univers 22:34:37 MARY tafoya [facility] 2021-04-20 Emergency [facility] [id number] Univers 20:43:42 ity [facility] 2023-03-22 2023-03-22 Outpatient R DEDRA [facility] [id number] Univers 10:30:00 10:30:00 EVELINSAMM tafoya [facility] 2023-03-15 2023-03-15 Outpatient R MEET LUDWIG [facility] [id number] Univers 11:30:00 11:30:00 MEET LUDWIG [facility] 2022-10-26 2022-10-26 [facility] [id number] Univers 11:00:00 11:00:00 SENDIL michelet [facility] 2022-10-23 2022-10-23 Orders Doctor LIBORIO 1.2.840.114 [id number] Univers 00:00:00 00:00:00 Only Unassigned, SONIDO 350.1.13.10 ity of [place] [facility] 4.2.7.2.686 Luis Armando as [phone] [place] [address] Branch 2022-10-13 2022-10-13 Telephone [facility] 1.2.840.114 [id number] Univers 00:00:00 00:00:00 [facility] 350.1.13.10 it y [place] - [id number] Med ical [facility] 204 Branch 2022-10-05 2022-10-05 Telephone [facility] 1.2.840.114 [id number] Univers 00:00:00 00:00:00 Franklyn [place] 350.1.13.10 i ty of [facility] [place] [id number] [place] dical [facility] 204 Branch [facility] 2022-09-29 2022-09-29 Outpatient R ALZWERI, [facility] [id number] Univers 11:15:00 11:59:23 FRANKLYN itbonnie [facility] 2022-09-24 2022-09-24 Telephone Dedra [facility] 1.2.478.613 [id number] Univers 00:00:00 00:00:00 Evelin [employer] 350.1.13.10 it y of [facility] 4.2.7.2.686 Luis Armando as EMERSON?BLEA [id number] [facility] [address] [place] MEDICAL OFFICE [facility] 2022-09-18 2022-09-18 Administrative Specialist Lab, Ang - Db [facility] 1.2.840.1 14 [id number] Univers 10:00:00 10:28:03 Visit Evelin Colmenares [facility] 350.1.13.10 ity of [place] 4.2.7.2.686 Luis Armando as EMERSON?BLEA [id number] [facility] 353 [facility] OFFICE [facility] 2022-09-18 2022-09-18 Outpatient R DEDRA [facility] [id number] Univers 10:00:00 10:00:00 EVELIN tafoya [facility] 2022-09-18 2022-09-18 Pre Visit LIBORIO Horan 1.2.019.478 [id number] Univers 00:00:00 00:00:00 Outreach Jayden HEAD 350.1.13.10 ity of [facility] 4.2.7.2.686 Luis Armando as [id number] [address] 2022-09-17 2022-09-17 Outpatient R DEDRA [facility] [id number] Univers 11:00:00 11:31:02 EVELIN tafoya [facility] 2022-09-17 2022-09-17 Office [facility] 1.2.840.114 [id number] Univers 11:00:00 11:31:02 Visit Evelin [facility] 350.1.13.10 it y of [facility] 4.2.7.2.686 Luis Armando as EMERSON?BLEA [id number] [address] OFFICE [facility] 2022-09-17 2022-09-17 Orders Doctor CAPONE 1.2.840.114 [id number] Univers 00:00:00 00:00:00 Only Unassigned, SONIDO 350.1.13.10 ity of [place] [facility] 4.2.7.2.686 Luis Armando as [id number] [address] 2022-09-17 2022-09-17 [facility] 1.2.840.114 [id number] Univers 00:00:00 00:00:00 Keon HEALTH 350.1.13.10 it y of [place] 4.2.7.2.686 Luis Armando as EMERSON?BLEA [id number] [address] OFFICE [facility] 2022-09-15 2022-09-15 [facility] 1.2.840.114 [id number] Univers 00:00:00 00:00:00 Evelin HEALTH 350.1.13.10 it y of [place] 4.2.7.2.686 Luis Armando as EMERSON?BLEA [phone] [address] 2022-09-14 2022-09-14 [facility] 1.2.840.114 [id number] Univers 00:00:00 00:00:00 Evelin HEALTH 350.1.13.10 it y of [place] 4.2.7.2.686 Luis Armando as EMERSON?BLEA [id number] [address] 2022-08-10 2022-08-10 Outpatient Serjio [facility] [id number] Univers 13:00:00 13:00:00 EVELIN ity [facility] 2022-08-05 2022-08-05 Orders Doctor CAPONE 1.2.840.114 [id number] Univers 00:00:00 00:00:00 Only Unassigned, SONIDO 350.1.13.10 ity of [place] [facility] 4.2.7.2.686 Luis Armando as [id number] [address] 2022-07-27 2022-07-27 Outpatient Serjio [facility] [id number] Univers 13:30:00 13:30:00 EVELIN ity [facility] 2022-07-27 2022-07-27 Emergency [facility] ERT [id number] Univers 08:49:00 12:38:00 JAVIER ity [facility] 2022-07-27 2022-07-27 Emergency [facility] 1.2.954.840 [id number] Univers 08:49:00 12:38:00 Javier S [facility] 350.1.13.10 i ty of [place].7.[place] [id number] [facility] [address] [place] 2022-07-13 2022-07-13 Telephone [facility] 1.2.856.717 [id number] Univers 00:00:00 00:00:00 Evelin HEALTH 350.1.13.10 it y of [place] 4.2.7.2.686 Luis Armando as EMERSON?BLEA [id number] [address] OFFICE [facility] 2022-07-09 2022-07-09 Telephone [facility] 1.2.089.364 [id number] Univers 00:00:00 00:00:00 Evelin HEALTH 350.1.13.10 it y of [place] 4.2.7.2.686 Luis Armando as EMERSON?BLEA [id number] [address] OFFICE [facility] 2022-06-22 2022-06-22 [facility] 1.2.107.612 [id number] Univers 00:00:00 00:00:00 Sendteodoro OTOOLE 350.1.13.10 ity [facility] [place] [id number] [facility] 059 [facility] 2022-06-18 2022-06-18 Outpatient R MELITA [facility] CCA [id number] Univers 06:26:00 12:25:00 SENDIL michelet of [facility] 2022-06-18 2022-06-18 [facility] EFREM Hua 1.2.840.114 [id number] Univers 06:26:00 12:25:00 Encounter Kamran HEAD 350.1.13.10 ity of [facility] 4.2.7.2.686 Luis Armando as [phone] [facility] [address] [place] 2022-06-18 2022-06-18 Surgery EFREM Christine 1.2.840.114 [id number] Univers 10:00:00 11:00:00 Kenn HEAD 350.1.13.10 it y of [facility] 4.2.7.2.686 Luis Armando as [id number] [facility] [address] [place] 2022-06-18 2022-06-18 Telephone Dedra [facility] 1.2.421.027 [id number] Univers 00:00:00 00:00:00 [facility] 350.1.13.10 it y of [place] 4.2.7.2.686 Luis Armando as EMERSON?BLEA [id number] [place] camila BYRNEEY [address] [place] MEDICAL OFFICE BUILDING 2022-06-18 2022-06-18 Orders Doctor LIBORIO 1.2.840.114 [id number] Univers 00:00:00 00:00:00 Only Unassigned, SONIDO 350.1.13.10 ity of [facility] 4.2.7.2.686 Luis Armando as [phone] [facility] [address] [place] 2022-06-16 2022-06-16 Administrative Specialist Rocael, [facility] Main [facility] 1.2.8 40.114 [id number] Univers 11:45:00 12:00:00 Visit Kamran Hua 350.1.13. 10 ity of [place] [phone] [place] camila FOLEY 353 [address] BUILDING 2022-06-16 2022-06-16 Outpatient R MELITA [facility] [id number] Univers 11:45:00 11:45:00 SENDIL ity [facility] 2022-06-16 2022-06-16 Outpatient R [facility] [id number] Univers 08:00:00 08:00:00 ity [facility] 2022-06-01 2022-06-01 Emergency X NAIMA [facility] ERT [id number] Univers 11:00:00 11:25:00 FADUMO ity [facility] 2022-06-01 2022-06-01 Emergency Naima [facility] 1.2.972.794 [id number] Univers 11:00:00 11:25:00 Fadumo OTOOLE 350.1.13.10 ity of [place]2.7.2.[place] [id number] [facility] [address] [place] 2022-05-20 2022-05-20 Outpatient R [facility] [id number] Univers 11:00:00 11:00:00 ity of [facility] 2022-05-19 2022-05-19 Outpatient R BASHIR [facility] [id number] Univers 16:20:00 16:38:33 HALEY ity of [facility] 2022-05-19 2022-05-19 Urgent Bashir [facility] 1.2.840.114 [id number] Univers 16:20:00 16:38:33 Care Unknown, Attending HEALTH 350.1.13.10 ity of [place] 4.2.7.2.686 Luis Armando as EMERSON?BLEA [id number] [facility] [address] [place] MEDICAL OFFICE BUILDING 2022-05-08 2022-05-08 Telephone EFREM Hua 1.2.719.710 [id number] Univers 00:00:00 00:00:00 Kamran HEAD 350.1.13.10 ity of [facility] 4.2.7.2.686 Luis Armando as [id number] [facility] [address] [place] 2022-04-29 2022-04-29 Telephone Melita [facility] 1.2.779.960 [id number] Univers 00:00:00 00:00:00 Kamran OTOOLE 350.1.13.10 ity of [place]2.7.2.686 [place] [facility] [phone] [facility] 059 [address] BUILDING 2022-04-27 2022-04-27 Telephone EFREM Hua 1.2.433.673 [id number] Univers 00:00:00 00:00:00 Kamran HEAD 350.1.13.10 ity of [facility] 4.2.7.2.686 Luis Armando as [id number] [facility] [address] [place] 2022-04-18 2022-04-18 Jorge Del Real [facility] 1.2.840.114 [id number] Univers 00:00:00 00:00:00 Wondiful A HEALTH 350.1.13.10 ity of [facility] 4.2.7.2.686 Luis Armando as EMERSON?BLEA [id number] [place] dic[address] MEDICAL OFFICE BUILDING 2022-04-08 2022-04-08 Orders Doctor LIBORIO 1.2.840.114 [id number] Univers 00:00:00 00:00:00 Only Unassigned, SONIDO 350.1.13.10 ity of [place] [facility] 4.2.7.2.686 Luis Armando as [id number] [address] 2022-03-30 2022-03-30 Outpatient [facility] [id number] Univers 13:00:00 14:03:44 FRANKLYN ity of [facility] 2022-03-30 2022-03-30 [facility] 1.2.840.114 [id number] Univers 13:00:00 14:03:44 Visit , Adc Surg Spec Procedure [place] 3 50.1.13.10 ity of [place] 4[place]2.7.2.[place] [phone] [facility] 204 [facility] 2022-03-30 2022-03-30 Orders Doctor LIBORIO 1.2.840.114 [id number] Univers 00:00:00 00:00:00 Only Unassigned, SONIDO 350.1.13.10 ity of [place] [facility] 4.2.7.2.686 Luis Armando as [id number] [address] 2022-03-26 2022-03-26 [facility] 1.2.840.114 [id number] Univers 00:00:00 00:00:00 Franklyn [place] 350.1.13.10 i ty of [facility] 4.2.7.2.[place] [id number] [facility] 204 [facility] 2022-03-18 2022-03-18 Nurse Nurse, Adc Surgery [facility] 1.2. 840.114 [id number] Univers 10:00:00 10:36:16 Visit Franklyn Bañuelos 350.1.13.10 ity of [facility] 4.2.7.2.[place] [id number] [address] 2022-03-18 2022-03-18 Outpatient [facility] [id number] Univers 10:00:00 10:00:00 FRANKLYN ity [facility] 2022-03-09 2022-03-09 Outpatient [facility] [id number] Univers 14:00:00 14:00:00 FRANKLYN ity [facility] 2022-03-03 2022-03-03 [facility]jay [facility] 1.2.840.114 [id number] Univers 00:00:00 00:00:00 [facility] 350.1.13.10 it y of [facility] 4.2.7.2.686 Luis Armando as EMERSON?BLEA [id number] [address] OFFICE [facility] 2022-02-25 2022-02-25 Nurse Nurse, Adc Surgery [facility] 1.2. 840.114 [id number] Univers 13:15:00 13:15:00 Visit Franklyn Bañuelos 350.1.13.10 ity of [facility] 4.2.7.2.[place] [id number] [address] 2022-02-25 2022-02-25 [facility] [id number] Univers 13:15:00 13:02:27 FRANKLYN ity [facility] 2022-02-02 2022-02-02 Outpatient R [facility] [id number] Univers 08:15:00 09:02:46 FRANKLYN ity [facility] 2022-02-02 2022-02-02 Office [facility] 1.2.840.114 [id number] Univers 08:15:00 09:02:46 Visit Franklyn OTOOLE 350.1.13.10 i ty of [facility] 4.2.7.2.[place] [id number] [address] 2022-01-29 2022-01-29 Outpatient R SARMAD [facility] [id number] Univers 11:45:00 11:45:00 FRANKLYN ity [facility] 2022-01-22 2022-01-22 Refjay [facility] 1.2.840.114 [id number] Univers 00:00:00 00:00:00 Wondiful A HEALTH 350.1.13.10 ity of [place] 4.2.7.2.686 Luisa Rmando as EMERSON?BLEA [phone] [place] camila MEDINA 044 [facility] 2022-01-22 2022-01-22 Refjay [facility] 1.2.840.114 [id number] Univers 00:00:00 00:00:00 Wondiful A HEALTH 350.1.13.10 ity of [place] 4.2.7.2.686 Luis Armando as EMERSON?BLEA [id number] [place] veroniquesd ADAM 044 [facility] 2022-01-22 2022-01-22 Refjay [facility] 1.2.840.114 [id number] Univers 00:00:00 00:00:00 Keon HEALTH 350.1.13.10 it y of [place] 4.2.7.2.686 Luis Armando as EMERSON?BLEA [phone] [place] camila MEDINA 044 [facility] 2022-01-19 2022-01-19 Administrative Specialist Lab, Ang - [facility] 1.2.840.1 14 [id number] Univers 13:15:00 13:25:36 Visit Eevlin Colmenares HEALTH 350.1.13.10 ity of [place] 4.2.7.2.686 Luis Armando as EMERSON?BLEA [id number] [place] camila MEDINA 353 [facility] 2022-01-19 2022-01-19 Outpatient R DEDRA [facility] [id number] Univers 13:15:00 13:15:00 EVELIN ity [facility] 2022-01-19 2022-01-19 Telephone Dedra [facility] 1.2.255.143 [id number] Univers 00:00:00 00:00:00 Evelin HEALTH 350.1.13.10 it y of [place] 4.2.7.2.686 Luis Armando as EMERSON?BLEA [id number] [facility] [address] [place] MEDICAL OFFICE [facility] 2022-01-16 2022-01-16 Outpatient R DEDRA [facility] [id number] Univers 13:00:00 23:59:00 EVELINSAMM tafoya [facility] 2022-01-16 2022-01-16 Outpatient R BETHANYCELESTE [facility] [id number] Univers 13:00:00 13:00:00 EVELIN michelet [facility] 2022-01-16 2022-01-16 Administrative Specialist Lab, Ang - Db [facility] 1.2.840.1 14 [id number] Univers 12:15:00 12:30:00 Visit Evelin Colmenares 350.1.13.10 ity of [place] 4.2.7.2.686 Luis Armando as EMERSON?BLEA [phone] [facility] [address] [place] MEDICAL OFFICE [facility] 2022-01-16 2022-01-16 Office [facility] 1.2.840.114 [id number] Univers 11:30:00 12:24:17 Visit Evelin JOAQUIN 350.1.13.10 it y of [place] 4.2.7.2.686 Luis Armando as EMERSON?BLEA [id number] [facility] 044 [facility] OFFICE [facility] 2022-01-16 2022-01-16 Outpatient R DEDRA [facility] [id number] Univers 11:30:00 12:24:17 EVELIN michelet [facility] 2022-01-16 2022-01-16 Outpatient R DEDRA [facility] [id number] Univers 11:30:00 11:30:00 EVELIN michelet [facility] 2021-12-30 2021-12-30 Outpatient R DEDRA [facility] [id number] Univers 14:27:53 23:59:00 EVELINSAMM tafoya [facility] 2021-12-30 2021-12-30 Outpatient R DEDRA [facility] [id number] Univers 13:30:00 15:03:09 EVELIN michelet [facility] 2021-12-30 2021-12-30 Office [facility] 1.2.840.114 [id number] Univers 13:30:00 15:03:09 Visit Evelin [facility] 350.1.13.10 it y of [place] 4.2.7.2.686 Luis Armando as EMERSON?BLEA [id number] [address] MEDICAL OFFICE [facility] 2021-12-30 2021-12-30 Outpatient [facility] [id number] Univers 13:30:00 13:30:00 EVELIN itbonnie [facility] 2021-12-26 2021-12-26 Telephone [facility] 1.2.327.560 [id number] Univers 00:00:00 00:00:00 Evelin [facility] 350.1.13.10 it y of [place] 4.2.7.2.686 Luis Armando as EMERSON?BLEA [id number] [address] OFFICE [facility] 2021-12-24 2021-12-24 Outpatient R MELITA [facility] [id number] Univers 13:00:00 13:00:00 SENDIL ity [facility] 2021-12-24 2021-12-24 Outpatient [facility] [id number] Univers 13:00:00 13:00:00 SENDIL ity [facility] 2021-12-24 2021-12-24 Outpatient R MELITA [facility] [id number] Univers 13:00:00 13:00:00 SENDIL ity [facility] 2021-12-24 2021-12-24 Outpatient R MELITA [facility] [id number] Univers 13:00:00 13:00:00 SENDIL ity [facility] 2021-12-24 2021-12-24 Telephone EFREM Hua 1.2.873.444 [id number] Univers 00:00:00 00:00:00 Sendil Aniya HEAD 350.1.13.10 ity of [facility] 4.2.7.2.686 Luis Armando as [id number] [address] 2021-12-24 2021-12-24 Telephone [facility] 1.2.128.483 [id number] Univers 00:00:00 00:00:00 Evelin HEALTH 350.1.13.10 it y of [place] 4.2.7.2.686 Luis Armando as EMERSON?BLEA [id number] [facility] 044 [facility] OFFICE [facility] 2021-12-19 2021-12-19 [facility] [id number] Univers 14:30:00 14:58:55 EVELIN ity of [facility] 2021-12-19 2021-12-19 Office [facility] [id number] Univers 14:30:00 14:58:55 Visit Evelin [facility] [id number] it y of [facility] 4.2.7.2.686 Luis Armando as EMERSON?BLEA [phone] [address] OFFICE [facility] 2021-12-19 2021-12-19 [facility]phone [facility] [id number] Univers 00:00:00 00:00:00 Kamran OTOOLE 350.1.13.10 [place] [facility] [phone] [place] [id number] [facility] 2021-12-02 2021-12-02 Outpatient R [facility] [id number] Univers 11:30:00 11:30:00 ity of [facility] 2021-12-02 2021-12-02 Outpatient R [facility] [id number] Univers 11:00:00 11:00:00 ity of [facility] 2021-11-26 2021-11-26 [facility]phone [facility] [id number] Univers 00:00:00 00:00:00 Elinor SOTO [id number] ity of [place] [phone] [facility] [place] [address] [facility] 2021-11-25 2021-11-25 Outpatient R ELINOR JIMENEZ [facility] [id number] Univers 14:30:47 23:59:00 ELINOR JIMENEZ [facility] 2021-11-25 2021-11-25 Hospital Barbara [facility] [id number] Univers 14:30:47 23:59:00 Encounter Elinor MULTISPEC [id number] [place]y [place] [phone] [facility] [address] [facility] 2021-11-25 2021-11-25 Outpatient R ELINOR JIMENEZ [facility] [id number] Univers 15:00:00 15:48:19 ELINOR JIMENEZ [facility] 2021-11-25 2021-11-25 Office Barbara [facility] 1.2.840.114 [id number] Univers 15:00:00 15:48:19 Visit Elinor WATTPEC 350.1.13.10 ity of [place] 4.2.7.2.686 [facility] [phone] [facility] [address] [facility] 2021-11-25 2021-11-25 Outpatient R ELINOR JIMENEZ [facility] [id number] Univers 14:00:00 14:00:00 ELINOR JIMENEZ [facility] 2021-11-25 2021-11-25 Outpatient R ELINOR JIMENEZ [facility] [id number] Univers 14:00:00 14:00:00 ELINOR JIMENEZ [facility] 2021-11-20 2021-11-20 Telephone Lim[facility]TRESA 1.2.259.603 [id number] Univers 00:00:00 00:00:00 Elinor MULTISPEC 350.1.13.10 ity of [place] 4.2.7.2.686 [facility] [phone] [facility] [address] [facility] 2021-11-18 2021-11-18 Telephone EFREM Hua 1.2.862.461 [id number] Univers 00:00:00 00:00:00 Kamran HEAD 350.1.13.10 ity of [facility] 4.2.7.2.686 Luis Armando as [phone] [facility] [address] 2021-11-18 2021-11-18 [facility]jay [facility] 1.2.840.114 [id number] Univers 00:00:00 00:00:00 Wondiful A HEALTH 350.1.13.10 ity of [facility] 4.2.7.2.686 Luis Armando as EMERSON?BLEA [phone] [facility] [address] [facility] OFFICE [facility] 2021-11-07 2021-11-07 Outpatient R GEE BLOUNT [facility] [id number] Univers 13:00:00 14:01:44 GEE BLOUNT itbonnie [facility] 2021-11-07 2021-11-07 Office [facility] 1.2.840.114 [id number] Univers 13:00:00 14:01:44 Visit Gee [facility] 350.1.13.10 ity of [place] 4.2.7.2.686 Luis Armando as EMERSON?BLEA [id number] [facility] [address] [facility] OFFICE [facility] 2021-11-07 2021-11-07 Outpatient R DEDRA [facility] [id number] Univers 11:30:00 11:30:00 EVELIN rafaelbonnie [facility] 2021-11-06 2021-11-06 Telephone [facility] 1..213.958 [id number] Univers 00:00:00 00:00:00 Kamran [facility] 350.1.13.10 ity of [place].2.7.2.[place] [phone] [place] dical NAL 059 [facility] 2021-11-03 2021-11-03 Outpatient R DEDRA [facility] [id number] Univers 11:30:00 12:12:13 EVELIN ity [facility] 2021-11-03 2021-11-03 Office [facility] 1.2.840.114 [id number] Univers 11:30:00 12:12:13 Visit [facility] 350.1.13.10 it y of [place] 4.2.7.2.686 Luis Armando as EMERSON?BLEA [phone] Me dical KNEY [address] [facility] OFFICE [facility] 2021-11-03 2021-11-03 Outpatient R DEDRA [facility] [id number] Univers 11:30:00 11:30:00 EVELIN bonnie [facility] 2021-10-29 2021-10-29 [facility] [id number] Univers 15:00:00 17:02:57 SENDIL [facility] 2021-10-29 2021-10-29 Office [facility] 1.2.840.114 [id number] Univers 15:00:00 17:02:57 Visit Sendil Aniya OTOOLE 350.1.13.10 ity of [place]7.[place] [phone] [address] 2021-10-29 2021-10-29 Outpatient [facility] [id number] Univers 15:00:00 17:02:57 SENDIL [facility] 2021-10-24 2021-10-24 Telephone [facility] 1.2.556.257 [id number] Univers 00:00:00 00:00:00 Sendil Aniya OTOOLE 350.1.13.10 ity of [place].7.2.[place] [phone] [address] 2021-10-23 2021-10-23 Urgent Jamal [facility] 1.2.840.114 [id number] Univers 18:00:00 18:18:59 Care [facility] 350.1.13.10 it y of [place] 4.2.7.2.686 Luis Armando as EMERSON?BLEA [phone] [facility] [address] [facility] OFFICE [facility] 2021-10-23 2021-10-23 Outpatient R JAMAL [facility] [id number] Univers 18:00:00 18:00:00 [facility] 2021-10-23 2021-10-23 Jorge [facility] 1.2.840.114 [id number] Univers 00:00:00 00:00:00 Wondiful A HEALTH 350.1.13.10 ity of [place] 4.2.7.2.686 Luis Armando as EMERSON?BLEA [phone] [address] MEDICAL OFFICE BUILDING 2021-10-09 2021-10-09 Outpatient R BARBARA ELINOR [facility] [id number] Univers 13:00:00 13:42:33 ELINOR JIMENEZ [facility] 2021-10-09 2021-10-09 Office Barbara [facility] 1.2.840.114 [id number] Univers 13:00:00 13:42:33 Visit Elinor [facility] 350.1.13.10 ity of [place] 4.2.7.2.686 [place] [facility] [phone] [address] DIABETES CLINIC 2021-10-09 2021-10-09 Outpatient R ELINOR JIMENEZ [facility] [id number] Univers 13:00:00 13:42:33 ELINOR JIMENEZ [facility] 2021-10-07 2021-10-07 Outpatient R EDDRA [facility] [id number] Univers 16:30:00 17:14:26 EVELIN tafoya [facility] 2021-10-07 2021-10-07 Office Dedra [facility] 1.2.840.114 [id number] Univers 16:30:00 17:14:26 Visit Evelin HEALTH 350.1.13.10 it y of [place] 4.2.7.2.686 Luis Armando as EMERSON?BLEA [id number] [address] MEDICAL OFFICE [facility] 2021-10-07 2021-10-07 Outpatient R DEDAR [facility] [id number] Univers 16:30:00 17:14:26 EVELIN tafoya [facility] 2021-10-07 2021-10-07 Outpatient R DEDRA [facility] [id number] Univers 16:30:00 17:14:26 EVELIN tafoya [facility] 2021-10-07 2021-10-07 Orders Doctor CAPONE 1.2.840.114 [id number] Univers 00:00:00 00:00:00 Only Unassigned, SONIDO 350.1.13.10 ity of [place] [facility] 4.2.7.2.686 Luis Armando as [phone] [address] 2021-09-30 2021-09-30 Refill [facility] 1.2.840.114 [id number] Univers 00:00:00 00:00:00 [facility] 350.1.13.10 i ty of [facility] 4.2.7.2.686 Luis Armando as EMERSON?BLEA [phone] [place] dical KNEY [address] MEDICAL OFFICE BUILDING 2021-09-17 2021-09-17 Outpatient R RADIOLOGY [facility] [id number] Univers 00:00:00 00:00:00 ity of [facility] 2021-09-15 2021-09-15 Outpatient R MEILTA, [facility] [id number] Univers 15:00:00 15:00:00 SENDIL ity [facility] 2021-09-10 2021-09-10 Outpatient R MELITA, [facility] [id number] Univers 14:00:00 15:05:34 SENDIL ity [facility] 2021-09-10 2021-09-10 [facility] 1.2.840.114 [id number] Univers 14:00:00 15:05:34 Visit Sendil JorgeErickaJacqueline KITCHENRICH 350.1.13.10 ity of [place] 4.2.7.2.686 [place] [phone] [place] dicbriseyda NAL 059 [facility] 2021-09-10 2021-09-10 Outpatient R MELITA, [facility] [id number] Univers 14:00:00 15:05:34 SENDIL ity [facility] 2021-09-10 2021-09-10 Orders Doctor CAPONE 1.2.840.114 [id number] Univers 00:00:00 00:00:00 Only Unassigned, SONIDO 350.1.13.10 ity of [place] [facility] 4.2.7.2.686 Luis Armando as [phone] [address] 2021-09-08 2021-09-08 Urgent [facility] 1.2.840.114 [id number] Univers 10:20:00 10:40:00 Care [facility] 350.1.13.10 i ty of [place] 4.2.7.2.686 Luis Armando as EMERSON?BLEA [phone] [place] camila MEDINA [address] [place] [address] MEDICAL OFFICE BUILDING 2021-09-08 2021-09-08 Outpatient R RAUL [facility] [id number] Univers 10:20:00 10:20:00 TAMERA ity o f [facility] 2021-09-08 2021-09-08 Letter Doctor LIBORIO 1.2.840.114 [id number] Univers 00:00:00 00:00:00 (Out) Unassigned, SONIDO 350.1.13.10 ity of [place] [facility] 4.2.7.2.686 Luis Armando as [phone] [facility] [address] 2021-09-08 2021-09-08 Letter Doctor LIBORIO 1.2.840.114 [id number] Univers 00:00:00 00:00:00 (Out) Unassigned, SONIDO 350.1.13.10 ity of [place] [facility] 4.2.7.2.686 Luis Armando as [phone] [facility] [address] 2021-09-01 2021-09-01 Transition EDENILSON [place] 1.2.840.114 [id number] Univers 00:00:00 00:00:[address] GOMEZ 350.1.13.10 ity of [place]2.7.2.686 [place] [phone] [facility] [address] 2021-08-29 2021-08-30 Outpatient U PONCHO NOBLES [facility] IGGY [id number] Univers 17:37:00 15:10:00 PONCHO NOBLES itbonnie of [facility] 2021-08-29 2021-08-30 Emergency Jorge Geiger 1.2.840. 114 [id number] Univers 17:37:00 15:10:00 Poncho Nobles SONIDO 350.1. 13.10 ity of HOSPITAL 4.2.7.2.686 Luis Armando as [phone] [facility] [address] 2021-08-29 2021-08-29 Outpatient R KING LUKE [facility] [id number] Univers 17:00:00 17:00:00 NESTOR bonnie [facility] 2021-08-27 2021-08-27 Outpatient ELINOR ENAMORADO [facility] [id number] Univers 15:00:00 15:00:00 ELINOR JIMENEZ [facility] 2021-08-27 2021-08-27 Telephone Barbara [facility] 1.2.655.357 [id number] Univers 00:00:00 00:00:00 Elinor MULTISPEC 350.1.13.10 ity of [place]2.7.2.686 [place] CENTER [id number] [facility] [address] [facility] CLINIC 2021-08-26 2021-08-26 Outpatient ELINOR ENAMORADO [facility] [id number] Univers 15:02:48 23:59:00 ELINOR JIMENEZ [facility] 2021-08-26 2021-08-26 [facility] 1.2.840.114 [id number] Univers 15:02:48 23:59:00 Encounter Elinor WATTPEC 350.1.13.10 ity of [place].2.7.2.686 [place] CENTER [phone] [facility] [address] [facility] 2021-08-26 2021-08-26 Outpatient ELINOR ENAMORADO [facility] [id number] Univers 14:30:00 14:30:00 ELINOR JIMENEZ [facility] 2021-08-12 2021-08-12 Outpatient ELINOR ENAMORADO [facility] [id number] Univers 15:30:00 15:30:00 ELINOR JIMENEZ [facility] 2021-08-12 2021-08-12 Office Barbara [facility] 1.2.840.114 [id number] Univers 15:30:00 15:30:00 Visit Elinor WATTPEC 350.1.13.10 ity of [place] 4.2.7.2.686 [place] CENTER [id number] [facility] [address] [facility] 2021-08-12 2021-08-12 Outpatient R ELINOR JIMENEZ [facility] [id number] Univers 15:30:00 15:20:13 ELINOR JIMENEZ itbonnie of [facility] 2021-08-05 2021-08-05 Outpatient R GT [facility] [id number] Univers 10:15:00 11:59:19 WONDIFUL ity o f [facility] 2021-08-05 2021-08-05 Office Gt [facility] 1.2.840.114 [id number] Univers 10:15:00 11:59:19 Visit Wondiful A HEALTH 350.1.13.10 ity of [place] 4.2.7.2.686 Luis Armando as EMERSON?BLEA [phone] [place] veroniquebriseyda [facility] [address] MEDICAL OFFICE BUILDING 2021-08-05 2021-08-05 Administrative Specialist Lab, [facility] 1.2.840.1 14 [id number] Univers 11:15:00 11:30:00 Visit Gt Nehal Cyn HEALTH 350.1.13.1 0 ity of [place] 4.2.7.2.686 Luis Armando as EMERSON?BLEA [id number] [place] veroniquebriseyda MEDINA [address] MEDICAL OFFICE BUILDING 2021-08-04 2021-08-04 Outpatient R GISSELLE DURHAM [facility] [id number] Univers 11:00:00 13:30:03 ity of [facility] 2021-08-04 2021-08-04 Office Karlie Jim [facility] 1.2.840.114 [id number] Univers 11:00:00 13:30:03 Visit Gisselle [place] HEALTH 350.1.13.10 ity of [place]2.[place].2.686 [place] [phone] [address] OFFICE BUILDING 2021-08-04 2021-08-04 Outpatient R GISSELLE DURHAM [facility] [id number] Univers 11:00:00 11:00:00 ity of [facility] 2021-08-04 2021-08-04 Orders Doctor CAPONE 1.2.840.114 [id number] Univers 00:00:00 00:00:00 Only Unassigned, SONIDO 350.1.13.10 ity of [place] [facility] 4.2.7.2.686 Luis Armando as [phone] [facility] [address] 2021-07-28 2021-07-28 Telephone [facility] 1.2.840.114 [id number] Univers 00:00:00 00:00:00 Wondiful A HEALTH 350.1.13.10 ity of [place] 4.2.7.2.686 Luis Armando as EMERSON?BLEA [phone] [place] camila [facility] [address] MEDICAL OFFICE [facility] 2021-06-30 2021-06-30 Emergency X HULL, [facility] ERT [id number] Univers 15:54:00 18:42:00 FLORENTIN ity [facility] 2021-06-30 2021-06-30 Emergency [facility] 1.2.840.114 [id number] Univers 15:54:00 18:42:00 Florentin B [place] 350.1.13.10 i ty of [place] 4.2.7.2.686 [place] [phone] [facility] [address] 2021-06-28 2021-06-28 Urgent Nurse, [facility] 1.2.840.114 [id number] Univers 19:00:00 19:20:00 Care Tamera Carter 350.1.13.10 ity of [place] 4.2.7.2.686 Luis Armando as EMERSON?BLEA [phone] [place] camila MEDINA [address] [facility] OFFICE [facility] 2021-06-28 2021-06-28 Outpatient R RAUL [facility] [id number] Univers 19:00:00 19:00:00 TAMERA tafoya o f [facility] 2021-06-28 2021-06-28 Outpatient Serjio CARTER [facility] [id number] Univers 19:00:00 19:00:00 TAMERA tafoya o f [facility] 2021-06-23 2021-06-23 Outpatient Serjio CAMEJO [facility] [id number] Univers 20:40:00 20:56:03 HALEY michelet [facility] 2021-06-23 2021-06-23 Urgent [facility] 1.2.840.114 [id number] Univers 20:40:00 20:56:03 Care Haley HEALTH 350.1.13.10 it y of [facility] 4.2.7.2.686 Luis Armando as EMERSON?BLEA [phone] [facility] [address] MEDICAL OFFICE BUILDING 2021-06-18 2021-06-18 Office [facility] 1.2.608.563 [id number] Univers 10:20:00 10:40:00 Visit Shyanne Hilario [place] 350.1.13.10 ity of [facility] 4.2.7.2.686 [place] [phone] [facility] 085 [facility] 2021-06-18 2021-06-18 Outpatient R RUSSELL [facility] [id number] Univers 10:20:00 10:20:00 [facility] 2021-06-18 2021-06-18 Outpatient R RUSSELL [facility] [id number] Univers 10:20:00 10:20:00 [facility] 2021-06-05 2021-06-05 Orders Doctor LIBORIO 1.2.840.114 [id number] Univers 00:00:00 00:00:00 Only Unassigned, SONIDO 350.1.13.10 ity of [place] [facility] 4.2.7.2.686 Luis Armando as [phone] [address] 2021-06-03 2021-06-03 Refjay [facility] 1.2.840.114 [id number] Univers 00:00:00 00:00:00 Wondiful A HEALTH 350.1.13.10 ity of [facility] 4.2.7.2.686 Luis Armando as EMERSON?BLEA [phone] [facility] [address] MEDICAL OFFICE [facility] 2021-06-02 2021-06-02 Alex [facility] 1.2.840.114 [id number] Univers 00:00:00 00:00:00 Management Wondiful A HEALTH 350.1.13.10 ity of [facility] 4.2.7.2.686 Luis Armando as EMERSON?BLEA [phone] [address] MEDICAL OFFICE [facility] 2021-06-02 2021-06-02 Telephone Attala [facility] 1.2.840.114 [id number] Univers 00:00:00 00:00:00 Wondiful A HEALTH 350.1.13.10 ity of [place] 4.2.7.2.686 Luis Armando as EMERSON?BLEA [phone] [address] MEDICAL OFFICE [facility] 2021-05-22 2021-05-22 Administrative Specialist Surekha De [facility] 1.2 .840.114 [id number] Univers 12:47:18 13:02:18 Visit Shyanne Bland [place] 350.1.13. 10 ity of [place] 4.2.7.2.686 [place] [id number] [facility] [address] 2021-05-22 2021-05-22 Outpatient R RUY BLANDDCBrittni [facility] [id number] Univers 13:00:00 13:00:00 [facility] 2021-05-22 2021-05-22 Outpatient R RUY BLANDDCBrittni [facility] [id number] Univers 13:00:00 13:00:00 JAMILAKOREYFARZAD JONASBrittni [facility] 2021-05-22 2021-05-22 Orders Doctor CAPONE 1.2.840.114 [id number] Univers 00:00:00 00:00:00 Only Unassigned, SONIDO 350.1.13.10 ity of [place] [facility] 4.2.7.2.686 Luis Armando as [phone] [facility] [address] 2021-05-20 2021-05-20 Outpatient R [facility] [id number] Univers 13:00:00 13:00:00 ity of [facility] 2021-05-20 2021-05-20 Outpatient R RUY BLANDDCBrittni [facility] [id number] Univers 13:00:00 13:00:00 SHYANNE [facility]AND [facility] 2021-05-20 2021-05-20 Laboratory Only, Adc Test [facility] 1.2.840. 114 [id number] Univers 12:39:23 12:54:23 Only Shyanne Bland T [place] 350.1.13. 10 ity of [place] 4.2.7.2.686 [place] [id number] [address] 2021-05-13 2021-05-13 Jorge Del Real [facility] 1.2.840.114 [id number] Univers 00:00:00 00:00:00 Wondiful A HEALTH 350.1.13.10 ity of [facility] 4.2.7.2.686 Luis Armando as PROFESSIO [id number] [address] OFFICE BUILDING ONE 2021-05-12 2021-05-12 Alex Del Real [facility] 1.2.840.114 [id number] Univers 00:00:00 00:00:00 Management Wondiful A HEALTH 350.1.13.10 ity of [place] 4.2.7.2.686 Luis Armando as EMERSON?BLEA [id number] [address] MEDICAL OFFICE BUILDING 2021-05-10 2021-05-10 Outpatient Serjio BROWN [facility] [id number] Univers 09:40:00 09:40:00 ACE ity of [facility] 2021-05-10 2021-05-10 Urgent Luz Maria Berry [facility] 1.2.840.114 [id number] Univers 09:17:19 09:37:19 Ace Nieto HEALTH 350.1.13.10 ity of [place] 4.2.7.2.686 Luis Armando as EMERSON?BLEA [id number] [facility] [address] MEDICAL OFFICE BUILDING 2021-05-09 2021-05-09 Jorge Del Real [facility] 1.2.840.114 [id number] Univers 00:00:00 00:00:00 Wondiful A HEALTH 350.1.13.10 ity of [facility] 4.2.7.2.686 Luis Armando as EMERSON?BLEA [id number] [address] MEDICAL OFFICE BUILDING 2021-05-06 2021-05-06 Jorge Del Real [facility] 1.2.840.114 [id number] Univers 00:00:00 00:00:00 Wondiful A HEALTH 350.1.13.10 ity of [place] 4.2.7.2.686 Luis Armando as PROFESSIO [phone] [place] camila [place] [address] OFFICE [facility] ONE 2021-05-05 2021-05-05 [facility] [id number] Univers 16:15:00 23:59:00 WONDIFUL ity o f [facility] 2021-05-05 2021-05-05 Hospital [facility] 1.2.724.143 [id number] Univers 16:15:00 23:59:00 Encounter Wondiful A HEALTH 350.1.13.10 ity of [place] 4.2.7.2.686 Luis Armando as EMERSON?BLEA [phone] [facility] ADAM [address] [facility] OFFICE [facility] 2021-05-05 2021-05-05 Administrative Specialist Lab, [facility] 1.2.840.1 14 [id number] Univers 16:21:47 16:38:22 Visit Nehal Del Real HEALTH 350.1.13.1 0 ity of [place] 4.2.7.2.686 Luis Armando as EMERSON?BLEA [phone] [place] cam[place] MEDINA [address] [facility] OFFICE BUILDING 2021-05-05 2021-05-05 Outpatient [facility] [id number] Univers 16:00:00 16:18:42 WONDIFUL ity o f [facility] 2021-05-05 2021-05-05 Office [facility] 1.2.840.114 [id number] Univers 15:17:21 16:18:42 Visit Wondiful A HEALTH 350.1.13.10 ity of [place] 4.2.7.2.686 Luis Armando as EMERSON?BLEA [phone] [place] camila MEDINA [address] MEDICAL OFFICE BUILDING 2021-04-11 2021-04-11 Outpatient [facility] [id number] Univers 15:45:00 15:45:00 WONDIFUL ity o f [facility] 2021-03-09 2021-03-09 Refjay [facility] 1.2.840.114 [id number] Univers 00:00:00 00:00:00 Wondiful A Health 350.1.13.10 ity of [place] 4.2.7.2.686 Luis Armando as Professio [phone] [address] Office [facility] 2021-03-07 2021-03-07 Telephone [facility] 1.2.840.114 [id number] Univers 00:00:00 00:00:00 Wondiful A Health 350.1.13.10 ity of [place] 4.2.7.2.686 Luis Armando as Emerson?Blea [id number] [address] Office [facility] 2021-02-12 2021-02-12 Refjay [facility] 1.2.840.114 [id number] Univers 00:00:00 00:00:00 Wondiful A Health 350.1.13.10 ity of [place] 4.2.7.2.686 Luis Armando as Professio [id number] [address] 2021-02-10 2021-02-10 Outpatient R KARLIE JIM [facility] [id number] Univers 10:00:00 10:00:00 ity of [facility] 2021-02-10 2021-02-10 [facility] 1.2.840.114 [id number] Univers 09:40:46 09:55:46 Visit Health 350.1.13.10 it y of [place].2.[place] [phone] [address] Office Building 2021-01-20 2021-01-20 Outpatient R GT [facility] [id number] Univers 08:00:00 08:00:00 WONDIFUL ity o f [facility] 2021-01-17 2021-01-17 Outpatient R GT [facility] [id number] Univers 10:30:00 10:30:00 WONDIFUL ity o f [facility] 2021-01-01 2021-01-01 Outpatient R AGUILA [facility] [id number] Univers 16:20:00 16:20:00 CHUCKIE [facility] 2020-12-30 2020-12-30 Outpatient R MALARosalina [facility] [id number] Univers 15:00:00 15:00:00 [facility] 2020-12-24 2020-12-24 Outpatient R NARAYAN, [facility] [id number] Univers 15:45:00 15:45:00 [facility] 2020-12-09 Outpatient R ANYI [facility] [id number] Univers 11:15:00 11:15:00 ANYI [facility] 2020-11-07 2020-11-07 Outpatient R [facility] [id number] Univers 13:00:00 13:00:00 [facility] 2020-11-05 2020-11-05 Outpatient R HELENE [facility] [id number] Univers 15:45:00 15:45:[address] [facility] 2020-11-04 2020-11-04 [facility] [id number] Univers 14:00:00 14:00:00 [facility] 2020-10-28 2020-10-28 Outpatient R SARMAD [facility] [id number] Univers 13:30:00 13:30:00 [facility] 2020-10-17 2020-10-17 Outpatient R GT [facility] [id number] Univers 10:45:00 10:45:00 [facility] 2020-10-07 2020-10-07 Outpatient R SARMAD [facility] [id number] Univers 09:45:00 09:45:00 [facility] 2020-09-12 2020-09-12 Outpatient R SARMAD [facility] [id number] Univers 09:30:00 09:30:00 [facility] 2020-09-10 2020-09-10 Outpatient R DEDRA [facility] [id number] Univers 16:15:00 16:15:00 EVELINSAMM tafoya [facility] 2020-09-02 2020-09-02 Outpatient R GT [facility] [id number] Univers 14:00:00 14:00:00 [facility] ity o f [facility] 2020-08-30 2020-08-30 Outpatient R GT [facility] [id number] Univers 16:00:00 16:00:00 [facility] ity o f [facility] 2020-08-20 2020-08-20 [id number] 00:00:00 00:00:00 [facility] [id number] [place] [id number] Professio [id number] [address]al [id number] 2020-08-05 2020-08-05 Outpatient R MALARosalina [facility] [id number] Univers 14:00:00 14:00:00 FRANKLYN michelet [facility] 2020-07-23 2020-07-23 [facility] [id number] 00:00:00 00:00:00 [facility] [id number] Romeo [id number] Professio [phone] nal 044 [address] One 2020-07-19 2020-07-19 Outpatient R GT, [facility] [id number] Univers 11:00:00 11:00:00 WONDIFUL ity o f [facility] 2020-07-19 2020-07-19 [facility] [id number] 08:01:11 10:21:48 Visit [facility] [id number] Romeo [id number] Professio [phone] nal 044 [facility] 2020-07-19 2020-07-19 Outpatient R GT, [facility] [id number] Univers 08:00:00 08:00:00 WONDIFUL ity o f [facility] 2020-05-10 2020-05-10 [facility] [id number] Univers 08:00:00 08:00:00 WONDIFUL ity o f [facility] 2020-05-09 2020-05-09 Outpatient R GT [facility] [id number] Univers 13:00:00 13:00:00 WONDIFUL ity o f [facility] 2020-04-29 2020-04-29 Outpatient R GT, [facility] [id number] Univers 13:00:00 13:00:00 WONDIFUL ity o f [facility] 2020-04-19 2020-04-19 Outpatient R GT [facility] [id number] Univers 16:00:00 16:00:00 WONDIFUL ity o f [facility] 2020-04-16 2020-04-16 Outpatient R NARAYAN, [facility] [id number] Univers 13:30:00 13:30:00 MARY tafoya [facility] 2020-04-02 2020-04-02 Outpatient R HELENE, [facility] [id number] Univers 13:30:00 13:30:00 MARY tafoya [facility] 2020-03-21 2020-03-21 Outpatient R [facility] [id number] Univers 13:20:00 13:20:00 ity [facility] 2020-03-13 2020-03-13 Outpatient R GRAMM, [facility] [id number] Univers 13:30:00 13:30:00 JEROMESENA tafoya [facility] 2020-03-05 2020-03-05 Outpatient R HELENE, [facility] [id number] Univers 14:00:00 14:00:00 MARY tafoya [facility] 2020-01-29 2020-01-29 Outpatient R GT [facility] [id number] Univers 10:00:00 10:00:00 WONDIFUL ity o f [facility] 2020-01-24 2020-01-24 Outpatient R ELAINE, [facility] [id number] Univers 13:00:00 13:00:00 HEATHER itbonnie [facility] 2020-01-18 2020-01-18 Outpatient R ELAINE, [facility] [id number] Univers 13:15:00 13:15:00 HEATHER bonnie [facility] 2020-01-15 2020-01-15 Outpatient R ELINOR JIMENEZ [facility] [id number] Univers 14:30:00 14:30:00 ELINOR JIMENEZ [facility] 2020-01-11 2020-01-11 Outpatient R ELAINE [facility] [id number] Univers 14:15:00 14:15:00 HEATHER bonnie [facility] 2019-12-19 2019-12-19 Outpatient R BIBI, [facility] [id number] Univers 10:00:00 10:00:00 QIANGJUN ity o f [facility] 2019-12-13 2019-12-13 Outpatient R ELINOR JIMENEZ [facility] VLS [id number] Univers 07:19:00 09:45:00 EL JIMENEZISE michelet [facility] 2019-12-10 2019-12-10 Outpatient R AMADA, [facility] [id number] Univers 16:00:00 16:00:00 ZARA michelet [facility] 2019-12-08 2019-12-08 Outpatient R GT [facility] [id number] Univers 16:15:00 16:15:00 WONDIFUL ity o f [facility] 2019-11-28 2019-11-28 Outpatient R EL JIMENEZISE [facility] [id number] Univers 13:30:00 13:30:00 ELINOR JIMENEZ [facility] 2019-11-23 2019-11-23 Outpatient R HELENE [facility] [id number] Univers 10:30:00 10:30:00 MARY ity [facility] 2019-11-06 2019-11-06 Outpatient R GT [facility] [id number] Univers 13:45:00 13:45:00 WONDIFUL ity o f [facility] 2019-10-31 2019-10-31 Outpatient R HELENE [facility] [id number] Univers 12:29:42 23:59:00 MARY ity [facility] 2019-10-24 2019-10-24 Outpatient R HELENE [facility] [id number] Univers 13:30:00 13:30:00 MARY ity [facility] 2019-09-20 2019-09-20 Outpatient R NAIMA [facility] [id number] Univers 13:30:00 13:30:00 ORIN [facility] 2019-09-18 2019-09-18 Outpatient Serjio DEL REAL [facility] [id number] Univers 16:15:00 16:15:00 WONDIFUL ity o f [facility] 2019-09-12 2019-09-12 Outpatient Serjio NARAYAN [facility] [id number] Univers 14:45:00 14:45:00 MARY bonnie [facility] 2019-09-08 2019-09-08 Outpatient Serjio DEL REAL [facility] [id number] Univers 11:15:00 11:15:00 WONDIFUL ity o f [facility] 2018-10-03 2018-10-03 Outpatient Serjio DEL REAL [facility] [id number] Univers 12:17:25 14:32:00 WONDIFUL bonnie o [facility] Results Test Description Test Time Test Comments Results Result Comments Source COMP. METABOLIC PANEL (31425) 2022-09-18 19:43:39 Test Item Value Reference Range Interpretation Comme nts NA (test code = 5525452216) 139 mmol/L 135-145 K (test code = 5033818827) 4.8 mmol/L 3.5-5.0 CL (test code = 5251028187) 104 mmol/L 98-108 CO2 TOTAL (test code = 1331688949) 27 mmol/L 23-31 AGAP (test code = 3979757450) 8 2-16 BUN (test code = 3597812430) 20 mg/dL 7-23 GLUCOSE (test code = 3228344167) 148 mg/dL 70-110 H CREATININE (test code = 0.84 mg/dL 0.60-1.25 9347275077) TOTAL BILI (test code = 0.7 mg/dL 0.1-1.0 3858884935) CALCIUM (test code = 2221728914) 9.2 mg/dL 8.6-10.6 T PROTEIN (test code = 9943548231) 6.8 g/dL 6.3-8.2 ALBUMIN (test code = 6055314287) 4.1 g/dL 3.5-5.0 ALK PHOS (test code = 5906350756) 50 U/L 34-122 ALTv (test code = 1742-6) 19 U/L 5-50 AST(SGOT) (test code = 3272670634) 20 U/L 13-40 eGFR (test code = 3856118222) 87.5 mL/min/1.73m2 MARIO (test code = MARIO) Association of Glomerular Filtration Rate (GFR) and Staging of Kidney Disease* + +-------- + ------+| GFR (mL/min/1.73 m2) ?| With Kidney Damage ?| ?Without Kidney Damage+ +-- + +| ?>90 ?| ?Stage one ?| ? Normal ?+ +------- + -------+| ?60-89 ?| ?Stage two ?| ? Decreased GFR ? + +-------- + ------+| ?30-59 ?| ?Stage three ?| ? Stage three ? + +-------- + ------+| ?15-29 ?| ?Stage four ? | ? Stage four ?+ +------- + -------+| ?<15 (or dialysis) ? ?| ?Stage five ? | ? Stage five ?+ +------- + -------+ *Each stage assumes the associated GFR level has been in effect for at least three months. ?Stages 1 to 5, with or without kidney disease, indicate chronic kidney disease. Notes: Determination of stages one and two (with eGFR >59mL/min/1.73 m2) requires estimation of kidney damage for at least three months as defined by structural or functional abnormalities of the kidney, manifested by either:Pathological abnormalities or Markers of kidney damage (including abnormalities in the composition of the blood or urine or abnormalities in imaging tests). Lab Interpretation (test code = Abnormal 85029-5) [facility]. METABOLIC PANEL (40076)2022-09-18 19:43:39 Test Item Value Reference Range Interpretation Comments NA (test code = 139 mmol/L 135-145 4788050513) K (test code = 4.8 mmol/L 3.5-5.0 2310230024) CL (test code = 104 mmol/L 98-108 7414694030) CO2 TOTAL (test code = 27 mmol/L -31 8985337974) AGAP (test code = 8 2-16 5052051002) BUN (test code = 20 mg/dL 7-23 9948203596) GLUCOSE (test code = 148 mg/dL 70-110 H 1144749091) CREATININE (test code = 0.84 mg/dL 0.60-1.25 8043917323) TOTAL BILI (test code = 0.7 mg/dL 0.1-1.4 0554671073) CALCIUM (test code = 9.2 mg/dL 8.6-10.6 2173521913) T PROTEIN (test code = 6.8 g/dL 6.3-8.2 3815450084) ALBUMIN (test code = 4.1 g/dL 3.5-5.0 5079719499) ALK PHOS (test code = 50 U/L 34-122 5928315121) ALTv (test code = 19 U/L 5-50 1742-6) AST(SGOT) (test code = 20 U/L 13-40 6352870932) eGFR (test code = 87.5 mL/min/1.73m2 9858708947) MARIO (test code = MARIO) Association of Glomerular Filtration Rate (GFR) and Staging of Kidney Disease* + --+ --+ ------+| GFR (mL/min/1.73 m2) ?| With Kidney Damage ?| ?Without Kidney Damage+ --------+ --------+ +| ?>90 ?| ?Stage one ?| ? Normal ?+ ---+ ---+ -------+| ?60-89 ?| ?Stage two ?| ? Decreased GFR ? + --+ --+ ------+| ?30-59 ?| ?Stage three ?| ? Stage three ? + --+ --+ ------+| ?15-29 ?| ?Stage four ? | ? Stage four ?+ ---+ ---+ -------+| ?<15 (or dialysis) ? ?| ?Stage five ? | ? Stage five ?+ ---+ ---+ -------+ *Each stage assumes the associated GFR level has been in effect for at least three months. ?Stages 1 to 5, with or without kidney disease, indicate chronic kidney disease. Notes: Determination of stages one and two (with eGFR >59mL/min/1.73 m2) requires estimation of kidney damage for at least three months as defined by structural or functional abnormalities of the kidney, manifested by either:Pathological abnormalities or Markers of kidney damage (including abnormalities in the composition of the blood or urine or abnormalities in imaging tests). Lab Interpretation Abnormal (test code = 09815-6) [facility] WITH [id number] 19:10:29 Test Item Value Reference Range Interpretation Comments WBC (test code = 6.31 See_Comment [Automated message] 9390-2) The system [employer] generated this result transmitted ref erence range: 4.20 - 1 0.70 10*3/?L. The re ference range was not u sed to interpret this result as normal/abnor mal. RBC (test code = 4.93 See_Comment [Automated message] 139-8) The system [employer] generated this result transmitted ref erence range: 4.26 - 5 .52 10*6/?L. The re ference range was not u sed to interpret this result as normal/abnor mal. HGB (test code = 14.6 g/dL 12.2-16.4 718-7) HCT (test code = 44.9 % 38.4-49.3 4544-3) MCV (test code = 91.1 fL 81.7-95.6 787-2) MCH (test code = 29.6 pg 26.1-32.7 785-6) MCHC (test code = 32.5 g/dL 31.2-35.0 786-4) RDW-SD (test code 48.5 fL 38.5-51.6 = 63760-3) RDW-CV (test code 14.5 % 12.1-15.4 = 788-0) PLT (test code = 258 See_Comment [Automated message] 7-3) The system [employer] generated this result transmitted ref erence range: 150 - 32 8 10*3/?L. The re ference range was not u sed to interpret this result as normal/abnor mal. MPV (test code = 10.5 fL 9.8-13.0 73630-1) NRBC/100 WBC (test 0.0 See_Comment [Automat ed message] code = 1078116434) The syste m which generated this result transmitted ref erence range: 0.0 - 10 .0 /100 WBCs. The refer ence range was not u sed to interpret this result as normal/abnor mal. NRBC x10^3 (test See_Comment [Automated message] code = 9409044944) The syste m which generated this result transmitted ref erence range: 10*3/?L. The reference range was not used to interpr et this result as normal/abnormal . GRAN MAT (NEUT) % 58.2 % (test code = 770-8) IMM GRAN % (test 0.20 % code = 8559310228) LYMPH % (test code 26.0 % = 736-9) MONO % (test code 11.3 % = 5905-5) EOS % (test code = 3.3 % 713-8) BASO % (test code 1.0 % = 706-2) GRAN MAT 3.68 10*3/uL 1.99-6.95 x10^3(ANC) (test code = 8810356284) IMM GRAN x10^3 0.00-0.06 (test code = 7656832369) LYMPH x10^3 (test 1.64 10*3/uL 1.09-3.23 code = 731-0) MONO x10^3 (test 0.71 10*3/uL 0.36-1.02 code = 742-7) EOS x10^3 (test 0.21 10*3/uL 0.06-0.53 code = 711-2) BASO x10^3 (test 0.06 10*3/uL 0.01-0.09 code = 704-7) [facility] WITH [id number] 19:10:29 Test Item Value Reference Range Interpretation Comments WBC (test code = 6.31 See_Comment [Automated message] 6690-2) The system [employer] generated this result transmitted ref erence range: 4.20 - 1 0.70 10*3/?L. The re ference range was not u sed to interpret this result as normal/abnor mal. RBC (test code = 4.93 See_Comment [Automated message] 789-8) The system whic h generated this result transmitted ref erence range: 4.26 - 5 .52 10*6/?L. The re ference range was not u sed to interpret this result as normal/abnor mal. HGB (test code = 14.6 g/dL 12.2-16.4 718-7) HCT (test code = 44.9 % 38.4-49.3 4544-3) MCV (test code = 91.1 fL 81.7-95.6 787-2) MCH (test code = 29.6 pg 26.1-32.7 785-6) MCHC (test code = 32.5 g/dL 31.2-35.0 786-4) RDW-SD (test code 48.5 fL 38.5-51.6 = 58149-7) RDW-CV (test code 14.5 % 12.1-15.4 = 788-0) PLT (test code = 258 See_Comment [Automated message] 777-3) The system [employer] generated this result transmitted ref erence range: 150 - 32 8 10*3/?L. The re ference range was not u sed to interpret this result as normal/abnor mal. MPV (test code = 10.5 fL 9.8-13.0 51547-7) NRBC/100 WBC (test 0.0 See_Comment [Automat ed message] code = 7182083896) The App[employer] m which generated this result transmitted ref erence range: 0.0 - 10 .0 /100 WBCs. The refer ence range was not u sed to interpret this result as normal/abnor mal. NRBC x10^3 (test See_Comment [Automated message] code = 3369558021) The syste m which generated this result transmitted ref erence range: 10*3/?L. The reference range was not used to interpr et this result as normal/abnormal . GRAN MAT (NEUT) % 58.2 % (test code = 770-8) IMM GRAN % (test 0.20 % code = 3270910247) LYMPH % (test code 26.0 % = 736-9) MONO % (test code 11.3 % = 5905-5) EOS % (test code = 3.3 % 713-8) BASO % (test code 1.0 % = 706-2) GRAN MAT 3.68 10*3/uL 1.99-6.95 x10^3(ANC) (test code = 7733045262) IMM GRAN x10^3 0.00-0.06 (test code = 6883453502) LYMPH x10^3 (test 1.64 10*3/uL 1.09-3.23 code = 731-0) MONO x10^3 (test 0.71 10*3/uL 0.36-1.02 code = 742-7) EOS x10^3 (test 0.21 10*3/uL 0.06-0.53 code = 711-2) BASO x10^3 (test 0.06 10*3/uL 0.01-0.09 code = 704-7) [facility] SARS-COV-2 ANTIGEN (BINAX NOW)2022-05-19 22:25:00 Test Item Value Reference Range Interpretation Comments POCT SARS-COV-2 ANTIGEN Not Detected Not Detected (test code = 75730-0) On board controls Yes acceptable with C Line (test code = 3574) MARIO (test code = MARIO) accurate development and interpretation of all internal controls Lab Interpretation Normal (test code = 19263-0) [facility] URINALYSIS, [id number] 18:16:00 Test Item Value Reference Range Interpretation Comments POCT U SP GRAV (test code = 1.015 mg/dl 1.005-1.025 5) POCT PH U (test code = 3254) 5.5 mg/dl 5-8 POCT U LEUK EST (test code = negative Negative - Negative 3) POCT U NIT (test code = 3262) negaitve Negative - Negative POCT U PROT (test code = negative Negative - Negative 3259) POCT U GLU (test code = 3256) negative Negative - Negative POCT U KETONE (test code = negative Negative - Negative 8) POCT U UROBILI (test code = 0.2 mg/dl 0.2-1 0) POCT U BILI (test code = negative Negative - Negative 1) POCT U BLD (test code = 3257) negative Negative - Negative POCT U COLOR (test code = yellow 3266) POCT U APPEAR (test code = clear 3267) [facility] URINALYSIS, [id number] 18:16:00 Test Item Value Reference Range Interpretation [...] U APPEAR (test code = clear 3267) [facility] URINALYSIS, [id number] 13:34:00 Test Item Value Reference Range Interpretation [...] U APPEAR (test code = Clear 3267) [facility] [id number] 13:34:00 Test Item Value Reference Range Interpretation [...] U APPEAR (test code = Clear 3267) [facility]
[2022-11-12 19:01] LABS: Absolute Lymphocytes (CBC) 2.3 K/uL (0.7-4.9); Hematocrit 40.2 % (39.6-49.0); Lymphocytes % 25.5 % (15.3-44.8); MCV 90.7 fL (80-100); MPV 8.2 fL (7.6-11.3); RBC Red Blood Cell Count 4.43 M/uL (4.33-5.43)
[2022-11-12 19:03] LABS: Protime INR 1.01
[2022-11-12] MEDS ORDERED: ONDANSETRON 4 MG/2 ML VIAL ONE (19:05)
[2022-11-12] MEDS ORDERED: MORPHINE 4 MG/ML SYR ONE (19:05)
--- NOTE | 2022-11-12 19:15 | RAD REPORT ---
EXAM DESCRIPTION: Esther Single View11/12/2022 7:07 pm CLINICAL HISTORY: Chest pain COMPARISON: July 2022 FINDINGS: The lungs appear clear of acute infiltrate. The heart is borderline enlarged IMPRESSION: No acute abnormalities displayed
[2022-11-12 19:24] LABS: ALT/SGPT 24 U/L (16-61); AST/SGOT 12 U/L (15-37); Albumin 3.3 g/dL (3.4-5.0); Alkaline Phosphatase 64 U/L (45-117); BUN Blood Urea Nitrogen 21 mg/dL (7-18); Bicarbonate 25 mEq/L (21-32); Bilirubin Total 0.2 mg/dL (0.2-1.0); Glomerular Filtration Rate 69 ml/min (=/>90); Glucose Level 170 mg/dL (74-106); Magnesium 1.8 mg/dL (1.6-2.4); NT PRO-BNP 948 pg/mL (<450); Potassium 3.8 mEq/L (3.5-5.1); Protein, Total 6.8 g/dL (6.4-8.2); Sodium Level 138 mEq/L (136-145); Troponin High Sensitivity 6.7 pg/mL (<58.9)
[2022-11-12 19:25] LABS: Bilirubin Direct < 0.1 mg/dL (0-0.2); Bilirubin Indirect, Calculated ND mg/dL (0.2-0.8)
--- NOTE | 2022-11-12 21:20 | EDPHYS ---
Physician Documentation [facility] Name: Dave Moreland Age: 82 yrs Sex: Male : 1940 Arrival Date: 11/12/2022 Time: 18:37 Bed 6 Private MD: ED Physician Merritt Lowe HPI: 11/12 20:19 This 82 yrs old Male presents to ER via Ambulatory with complaints of Chest Pain. kb 20:19 The patient or guardian reports chest pain that is located primarily in the chest kb diffusely. Onset: 40 minute(s) ago. The pain radiates to both arms. Associated signs and symptoms: The patient has no apparent associated signs or symptoms. The chest pain is described as sharp. Duration: The patient or guardian reports a single episode, that is still ongoing. Modifying factors: The symptoms are alleviated by nothing. the symptoms are aggravated by nothing. Severity of pain: At its worst the pain was moderate in the emergency department the pain is unchanged. The patient has not experienced similar symptoms in the past. The patient has not recently seen a physician. Historical: - Allergies: 18:57 Codeine; ld1 - PMHx: 18:57 Diabetes - NIDDM; Myocardial infarction; Hypertension; GERD; Hyperlipidemia; prostate ld1 problems; - Immunization history:: Adult Immunizations up to date, Client reports receiving the 2nd dose of the Covid vaccine. - Social history:: Smoking status: Patient denies any tobacco usage or history of. Patient/guardian denies using alcohol. ROS: 20:18 Constitutional: Negative for fever, chills, and weight loss. kb 20:18 Cardiovascular: Positive for chest pain. 20:18 All other systems are negative. Exam: 18:53 Constitutional: This is a well developed, well nourished patient who is awake, alert, kb and in no acute distress. Head/Face: Normocephalic, atraumatic. ENT: Moist Mucous membranes Cardiovascular: Regular rate and rhythm with a normal S1 and S2. No gallops, murmurs, or rubs. No pulse deficits. Respiratory: Respirations even and unlabored. No increased work of breathing. Talking in full sentences Abdomen/GI: Soft, non-tender. No distention Skin: Warm, dry with normal turgor. Normal color. MS/ Extremity: Pulses equal, no cyanosis. Neurovascular intact. Full, normal range of motion. Neuro: Awake and alert, GCS 15, oriented to person, place, time, and situation. Moves all extremities. Normal gait. 18:53 ECG was reviewed by the Attending Physician. Vital Signs: 18:45 BP 139 / 100; Pulse 81; Resp 15; Temp 97.6(O); Pulse Ox 99% on R/A; Weight 83.91 kg; nj1 Height 5 ft. 10 in. ; Pain 8/10; 18:55 BP 139 / 100; Pulse 73; Resp 18; Pulse Ox 99% on R/A; Pain 8/10; ld1 19:45 BP 123 / 73; Pulse 71; Resp 19 S; Pulse Ox 98% on R/A; ha1 20:45 BP 112 / 88; Pulse 68; Resp 17 S; Pulse Ox 98% on R/A; ha1 18:45 Body Mass Index 26.54 (83.91 kg, 177.8 cm) nj1 18:45 Pain Scale: Adult nj1 18:55 Pain Scale: Adult ld1 MDM: 18:43 Patient medically screened. kb 20:19 Data reviewed: vital signs, nurses notes. kb 20:27 ED course: Pt does not want to be admitted. Agrees to second troponin now. kb 21:17 Differential diagnosis: abnormal EKG, acute myocardial infarction, coronary artery kb disease chest wall pain, pancreatitis. The patient was not given aspirin in the Emergency Department. Patient reports taking aspirin within the past 24 hours. Consideration of Admission/Observation Escalation of care including admission/observation considered. admission considered, but pt does not want to stay in the hospital. Historians other than the Patient: Spouse/Significant Other: . Counseling: I had a detailed discussion with the patient and/or guardian regarding: the historical points, exam findings, and any diagnostic results supporting the discharge/admit diagnosis, lab results, radiology results, the need for outpatient follow up, a family practitioner, to return to the emergency department if symptoms worsen or persist or if there are any questions or concerns that arise at home. 21:18 ED course: reports pt had recent heart cath that was normal. kb 11/12 18:43 Order name: Basic Metabolic Panel; Complete Time: 19:42 kb 11/12 18:43 Order name: CBC with Diff; Complete Time: 19:12 kb 11/12 18:43 Order name: LFT's; Complete Time: 19:42 kb 11/12 18:43 Order name: Magnesium; Complete Time: 19:42 kb 11/12 18:43 Order name: NT PRO-BNP; Complete Time: 19:42 kb 11/12 18:43 Order name: PT-INR; Complete Time: 19:04 kb 11/12 18:43 Order name: Troponin HS; Complete Time: 19:42 kb 11/12 18:51 Order name: Lipase; Complete Time: 19:42 kb 11/12 20:28 Order name: Troponin High Sensitivity; Complete Time: 21:17 kb 11/12 18:43 Order name: XRAY Chest (1 view); Complete Time: 19:16 kb 11/12 18:43 Order name: EKG; Complete Time: 18:44 kb 11/12 18:43 Order name: Cardiac monitoring; Complete Time: 18:55 kb 11/12 18:43 Order name: EKG - Nurse/Tech; Complete Time: 18:48 kb 11/12 18:43 Order name: IV Saline Lock; Complete Time: 18:55 kb 11/12 18:43 Order name: Labs collected and sent; Complete Time: 18:55 kb 11/12 18:43 Order name: O2 Per Protocol; Complete Time: 18:55 kb 11/12 18:43 Order name: O2 Sat Monitoring; Complete Time: 18:55 kb EC:53 Rate is 79 beats/min. Rhythm is regular. QRS Fine is Normal. QRS interval is normal at kb 96 msec. QT interval is normal at 438 msec. Administered Medications: 19:04 Drug: morphine IVP or IV 4 mg Route: IVP; Infused Over: 4 mins; Site: right antecubital;ap3 19:04 Drug: Ondansetron IVP 4 mg Route: IVP; Site: right antecubital; ap3 21:20 Drug: Simethicone PO 240 mg Route: PO; ha1 21:31 Follow up: Response: No adverse reaction ha1 Disposition Summary: 11/12/22 21:19 Discharge Ordered Location: Home kb Condition: Stable kb Diagnosis - Chest pain, unspecified kb Followup: kb - With: Emergency Department - When: As needed - Reason: Worsening of condition Followup: kb - With: Private Physician - When: 2 - 3 days - Reason: Recheck today's complaints, Continuance of care, Re-evaluation by your physician Discharge Instructions: - Discharge Summary Sheet kb - Nonspecific Chest Pain, Adult, [id number] kb Forms: - Medication Reconciliation Form kb - Thank You Letter kb - Antibiotic Education kb - Prescription Opioid Use kb Signatures: Dispatcher [employer] EDKhushbu Mariscal, TATIANAC Haley Spencer RN RN ap3 Mague Solomon RN RN ld1 Brielle Basurto RN RN ha1
--- NOTE | 2022-11-12 21:20 | ER ---
Nurse's Notes [facility] Name: Dave Moreland Age: 82 yrs Sex: Male : 1940 Arrival Date: 11/12/2022 Time: 18:37 Bed 6 Private MD: Diagnosis: Chest pain, unspecified Presentation: 11/12 18:45 Chief complaint: Patient states: Sudden "stabbing" chest pain at around 1800. Pt states nj1 pain has eased up a little bit but still there. 18:45 Method Of Arrival: Ambulatory [facility] 18:45 Coronavirus screen: Vaccine status: Patient reports being unvaccinated. Ebola Screen: nj Patient denies travel to an Ebola-affected area in the 21 days before illness onset. Initial Sepsis Screen: Does the patient meet any 2 criteria? No. Patient's initial sepsis screen is negative. Does the patient have a suspected source of infection? No. Patient's initial sepsis screen is negative. Risk Assessment: Do you want to hurt yourself or someone else? Patient reports no desire to harm self or others. Onset of symptoms was November 12, 2022 at 18:00. 18:45 Acuity: CLARK 2 nj1 Historical: - Allergies: 18:57 Codeine; ld1 - PMHx: 18:57 Diabetes - NIDDM; Myocardial infarction; Hypertension; GERD; Hyperlipidemia; prostate ld1 problems; - Immunization history:: Adult Immunizations up to date, Client reports receiving the 2nd dose of the Covid vaccine. - Social history:: Smoking status: Patient denies any tobacco usage or history of. Patient/guardian denies using alcohol. Screenin:55 [facility] ED Fall Risk Assessment (Adult) History of falling in the last 3 months, ld1 including since admission No falls in past 3 months (0 pts). Abuse screen: Denies threats or abuse. Denies injuries from another. Nutritional screening: No deficits noted. Tuberculosis screening: No symptoms or risk factors identified. Assessment: 18:55 General: Appears in no apparent distress. comfortable, Behavior is calm, cooperative, ld1 appropriate for age. Pain: Complains of pain in chest Pain does not radiate. Pain currently is 8 out of 10 on a pain scale. Quality of pain is described as sharp, shooting, throbbing, Pain began 1 hour ago. Is continuous. Neuro: Level of Consciousness is awake, alert, obeys commands, Oriented to person, place, time, situation. Cardiovascular: Capillary refill < 3 seconds Patient's skin is warm and dry. Rhythm is irregular Chest pain is described as mild. Respiratory: Airway is patent Respiratory effort is even, unlabored. GI: Abdomen is round non-distended. : No signs and/or symptoms were reported regarding the genitourinary system. EENT: No signs and/or symptoms were reported regarding the EENT system. Derm: No signs and/or symptoms reported regarding the dermatologic system. Musculoskeletal: No signs and/or symptoms reported regarding the musculoskeletal system. 19:45 General: Appears uncomfortable, Behavior is calm, cooperative. Pain: Complains of pain ha1 in head Pain currently is 8 out of 10 on a pain scale. Quality of pain is described as throbbing. Neuro: Level of Consciousness is awake, alert, obeys commands, Oriented to person, place, time, situation. Cardiovascular: Capillary refill < 3 seconds Patient's skin is warm and dry. Respiratory: Airway is patent Respiratory effort is even, unlabored, Respiratory pattern is regular, symmetrical. GI: No signs and/or symptoms were reported involving the gastrointestinal system. Abdomen is round non-distended. : No signs and/or symptoms were reported regarding the genitourinary system. Derm: Skin is pink, warm \\T\\ dry. Musculoskeletal: Circulation, motion, and sensation intact. 20:45 Reassessment: Patient and/or family updated on plan of care and expected duration. Pain ha1 level reassessed. Patient is alert, oriented x 3, equal unlabored respirations, skin warm/dry/pink. 21:33 Reassessment: Patient and/or family updated on plan of care and expected duration. Pain ha1 level reassessed. Patient is alert, oriented x 3, equal unlabored respirations, skin warm/dry/pink. Vital Signs: 18:45 BP 139 / 100; Pulse 81; Resp 15; Temp 97.6(O); Pulse Ox 99% on R/A; Weight 83.91 kg; nj1 Height 5 ft. 10 in. ; Pain 8/10; 18:55 BP 139 / 100; Pulse 73; Resp 18; Pulse Ox 99% on R/A; Pain 8/10; ld1 19:45 BP 123 / 73; Pulse 71; Resp 19 S; Pulse Ox 98% on R/A; ha1 20:45 BP 112 / 88; Pulse 68; Resp 17 S; Pulse Ox 98% on R/A; ha1 18:45 Body Mass Index 26.54 (83.91 kg, 177.8 cm) nj1 18:45 Pain Scale: Adult nj1 18:55 Pain Scale: Adult ld1 ED Course: 18:38 Patient arrived in ED. rg4 18:43 Khushbu Man [facility]C [facility] kb 18:43 Merritt Lowe MD is Attending Physician. kb 18:55 Mague Solomon, EVETTE is Primary Nurse. ld1 18:55 Patient has correct armband on for positive identification. Placed in gown. Bed in low ld1 position. Call light in reach. Side rails up X2. medical delivery technician on. Pulse ox on. NIBP on. Door closed. Noise minimized. Warm blanket given. 18:55 No provider procedures requiring assistance completed. Inserted saline lock: 20 gauge ld1 in right antecubital area, using aseptic technique. Blood collected. Patient maintains SpO2 saturation greater than 95% on room air. 19:09 XRAY Chest (1 view) In Process Unspecified. EDMS 19:25 Triage completed. nj1 21:34 Arm band placed on right wrist. ha1 21:34 IV discontinued, intact, bleeding controlled, No redness/swelling at site. Pressure ha1 dressing applied. Administered Medications: 19:04 Drug: morphine IVP or IV 4 mg Route: IVP; Infused Over: 4 mins; Site: right antecubital;ap3 19:04 Drug: Ondansetron IVP 4 mg Route: IVP; Site: right antecubital; ap3 21:20 Drug: Simethicone PO 240 mg Route: PO; ha1 21:31 Follow up: Response: No adverse reaction ha1 Medication: 21:34 VIS not applicable for this client. ha1 Outcome: 21:19 Discharge ordered by . kb 21:34 Discharged to home ambulatory, with family. ha1 21:34 Condition: stable 21:34 Discharge instructions given to patient, family, Instructed on discharge instructions, the need for admit, Demonstrated understanding of instructions, follow-up care. 21:34 Patient left the ED. ha1 Signatures: Dispatcher [employer] EDMS Khushbu Man, POLICE INSPECTOR-C POLICE INSPECTOR-Kevinb Giss[place] rg4 Haley Enciso, RN RN ap3 Mague Solomon RN RN ld1 Brielle Basurto, RN RN ha1 Faiza Sherman RN RN nj1
[2022-11-12] MEDS ORDERED: SIMETHICONE 80 MG TAB ONE (21:30)
[2022-11-12 22:12] VITALS: TEMP 97.6
[2022-11-12 22:16] VITALS: O2SAT 98
[2022-11-12 22:18] VITALS: BP 112/88
--- NOTE | 2022-11-15 07:32 | EKG ---
Test Date: 2022-11-12 Test Time: 18:46:35 Supervisor Coin Machine: ARAM MEASUREMENT RESULTS: Intervals: Rate: 79 DC: QRSD: 96 QT: 382 QTc: 438 Dexter: P: DC: QRS: -63 T: 53 INTERPRETIVE STATEMENTS: Atrial fibrillation Left axis deviation Abnormal ECG Compared to ECG 07/27/2022 21:13:29 No significant changes Electronically Signed On 11-15-22 07:26:03 CDT by Doroteo Carrion
== END 2022-11-12 21:34 | disposition home or self-care (01) ==
LOC: ER 18:37
DX: R07.9 Chest pain, unspecified (principal); E11.9 Type 2 diabetes mellitus without complications; I10 Essential (primary) hypertension; Z88.5 Allergy status to narcotic agent
CPT/HCPCS: 93005; 85025; 80048; 36415; 83735; 85610; 80076; 84484 ×2; 83690; 83880; 71045; 96375; 96374; 99285; J2405

== ENCOUNTER 2022-12-17 20:48 | Emergency (ER) | payer OTHER ==
--- OUTSIDE RECORDS SUMMARY | 2022-12-17 20:59 | XMS REPORT | Continuity of Care Document ---
:1940 Author Organization [facility] t Address [address] [place] [address] [address] [place] [address] Care Team Providers Name Role Phone Evelin Wyatt Primary Care Physician FRANKLYN BAÑUELOS Attending Clinician Unavailable KAMRAN HUA K.HEricka Attending Clinician Unavailable MARY NARAYAN Attending Clinician Unavailable GABRIELA MACK Attending Clinician Unavailable EVELIN COLMENARES Attending Clinician Unavailable MEET LUDWIG Attending Clinician Unavailable MEET LUDWIG Attending Clinician Unavailable Evelin Wyatt Attending Clinician Lab, Ang - Db Attending Clinician Unavailable Doctor Unassigned, [place] Attending Clinician Unavailable rFanklyn Bañuelos MD Attending Clinician Jayden Horan LVN Attending Clinician Unavailable Keon Scherer MD Attending Clinician JAVIER MORRIS Attending Clinician Unavailable Javier Valentine Attending Clinician Melita FOX [facility] Attending Clinician Kenn Christine MD Attending Clinician Pob, [facility] Main Attending Clinician Unavailable FADUMO MCNAMARA Attending Clinician Unavailable Fadumo Mcnamara MD Attending Clinician HALEY CAMEJO Attending Clinician Unavailable Haley Camejo MD Attending Clinician Unknown, Attending Attending Clinician Unavailable Nehal Del Real MD Attending Clinician , [facility] Surg Spec Procedure Attending Clinician Unavailable Nurse, [facility] Surgery Gu Attending Clinician Unavailable Elinor Jimenez [...] Unavailable Florentin Bo B Attending Clinician Nurse, [facility] Attending Clinician Unavailable Shyanne Bland MD Attending Clinician SHYANNE BLAND Attending Clinician Unavailable SHYANNE BLAND Attending Clinician Unavailable [facility] Attending Clinician Unavailable Only, [facility] Test Attending Clinician Unavailable ACE BROWN Attending Clinician Unavailable Ace Hansen Attending Clinician KARLIE JIM Attending Clinician Unavailable CHUCKIE SHEEHAN Attending Clinician Unavailable ANYI DE SANTIAGO Attending Clinician Unavailable JEROME AHUMADA Attending Clinician Unavailable HEATHER HENRY Attending Clinician Unavailable CIDNY MTZ Attending Clinician Unavailable ZARA YBARRA Attending [...] Type Policy Number Effective Date Expiration Date Rosa gill MEDICARE PART A [id number] 2004 \\T\\ B 00:00:00 NEW [employer] [id number] 2016 00:00:00 Problems Condition Condition Condition Status Onset Resolution Last Treating Co mments Source Name Details Category Date Date Treatment Clinician Date Urinary Urinary Disease Active Overview: Univ ers frequency frequency 4-11 Formattin i ty of 00:00: g of this [place] 00 note Medical might be Branch different from the original. Added automatic ally from request for surgery [id number] Benign Benign Disease Active Overview: Univer s prostatic prostatic - Formattin i ty of hyperplasi hyperplasi 00:00: g of this [place] a with a with 00 note Medical lower lower might be Branch urinary urinary different tract tract from the symptoms, symptoms, original. symptom symptom Added details details automatic unspecifie unspecifie ally from d d request for surgery [id number] Dyslipidem Dyslipidem Disease Active Overview : Univers ia ia 11-18 Formattin ity of 00:00: g of this [place] 00 note Medical might be Branch different from the original. Added automatic ally from request for surgery [id number] RAZO RAZO Disease Active Overview: Univer s (dyspnea (dyspnea 11-18 Formattin ity of on on 00:00: g of this [place] exertion) exertion) 00 note Medi monika might be Branch different from the original. Added automatic ally from request for surgery [id number] Atypical Atypical Disease Active Overview: Un nyla chest pain chest pain 11-18 Formattin ity of 00:00: g of this [place] 00 note Medical might be Branch different from the original. Added automatic ally from request for surgery [id number] Anginal Anginal Disease Active Overview: Univ ers equivalent equivalent 11-18 Formattin ity of 00:00: g of this 00 note Medical might be Branch different from the original. Added automatic ally from request for surgery [id number] Acute Acute Disease Active Univers cardioembo cardioembo [...] Added automatic ally from request for surgery [id number] Acute Acute Disease Active Univers pancreatit pancreatit [...] Added automatic ally from request for surgery [id number] SI SI Disease Active Overview: Univer s (sacroilia (sacroilia 11-27 Formattin ity of c) joint c) joint 00:00: g of this [place] Armando as dysfunctio dysfunctio 00 note Me dical n n might be Branch different from the original. 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 7-02 it y of s s 00:00: [place] [facility] Degenerati Degenerati Disease Active U nivers on of on of 6 ity of lumbar lumbar 00:00: [place] interverte interverte 00 Me dical bral disc bral disc Bran ch Lumbar Lumbar Disease Active Univers radiculopa radiculopa 6-03 it y of thy thy 00:00: [place] [facility] Myofascial Myofascial Disease Active U nivers pain pain 6-03 ity of 00:00: [place] [facility] Elevated Elevated Disease Active Unive rs sed rate sed rate 4-17 ity of 00:00: [place] [facility] Low Low Disease Active Univers ferritin ferritin 3-27 ity of 00:00: [place] [facility] Type 2 Type 2 Disease Active Univers diabetes diabetes 1-17 ity of mellitus mellitus 00:00: [place] with with 00 Medical complicati complicati Br anch on, on, without without long-term long-term current current use of use of insulin insulin Bradycardi Bradycardi Disease Active 2017-06 U nivers a a 2-26 ity of 00:00: [place] 00 Medical Branch Weakness Weakness Disease Active 2017-06 Unive rs 2-26 ity of 00:00: [place] 00 Medical Branch Dizziness Dizziness Disease Active 2017-06 Uni vers 2-26 ity of 00:00: [place] 00 Medical Branch Coronary Coronary Disease Active 2017-06 Unive rs artery artery 2-26 ity of disease disease 00:00: [place] involving involving 00 Medi monika rosebud rosebud Branch coronary coronary artery of artery of rosebud rosebud heart heart without without angina angina pectoris [...] 00:00: [place] involving involving 00 Medi monika rosebud rosebud Branch coronary coronary artery of artery of rosebud rosebud heart heart without without angina angina pectoris [...] Status Never Smoker Smokeless Tobacco Never Used [employer] Maintenan ce Status Date Diabetic Eye Exam [...] Anxiety Anxiety Disease Active Univers ity of [place] Medical Bostic Allergies, Adverse Reactions, Alerts Allergy Allergy Status [...] 08-16 ity of 00:00: [place] 00 Medical Branch Canaglif Propensi Active Other - See Genital Univers lozin ty to comments 01-18 mycotic ity of adverse 00:00: infection [place] reaction 00 s Medical s Branch CANAGLIF DRUG Active Other-Cmnt Univ ers LOZIN INGREDI 01-18 ity of 00:00: [place] 00 Medical Bostic Social History Social Habit Start Date Stop Date Quantity Comments Source Alcohol intake 2022-11-26 2022-11-26 Current University of 00:00:00 00:00:00 non-drinker of [facility] alcohol (finding) Branch Exposure to 2022-09-19 2022-09-29 [facility] sure [facility] SARS-CoV-2 00:00:00 10:55:[address] [facility] (event) Bostic Tobacco use and 2021-12-30 2021-12-30 Smokeless tobacco Un iversity of exposure 00:00:00 00:00:00 non-user [facility] Sex Assigned At [birth year] Universit y of 00:00:00 00:00:00 [facility] Smoking Status Start Date Stop Date Source Never smoked tobacco [facility] [place] [facility] Medications Ordered Filled Start Stop Current Ordering Indication Dosage Frequency Signature Comments Components Source Medication Medication Date Date Medication? Clinician (SIG) Name Name metFORMIN Yes [id number] 1000mg Take 1 Univers 1,000 mg 6-18 tablet by ity of tablet 00:00: mouth in [place] 00 the Medical morning Branch and 1 tablet in the evening. Take with meals. dulaglutide Yes [id number] .75mg inject 1 Univers (TRULICITY) 6-16 Pen under ity of 0.75 mg/0.5 00:00: [place] mL PnIj 00 weekly. Medical Branch dulaglutide Yes [id number] .75mg inject 1 Univers (TRULICITY) 6-16 Pen under ity of 0.75 mg/0.5 00:00: [place] mL PnIj 00 weekly. Medical Branch dulaglutide Yes [id number] .75mg inject 1 Univers (TRULICITY) 6-16 Pen under ity of 0.75 mg/0.5 00:00: [place] mL PnIj 00 weekly. Medical Branch dulaglutide 2022-0 Yes [id number] .75mg inject 1 Univers (TRULICITY) 6-16 Pen under ity of 0.75 mg/0.5 00:00: [place] mL PnIj 00 weekly. Medical Branch SITagliptin 2022-0 Yes [id number] 50mg Take 1 Univers phosphate 6-08 tablet by ity o f 50 mg 00:00: mouth in [place] tablet 00 the Medical morning. Branch acetaminoph 2022-0 Yes [id number] 650mg Take 1 Univers en (TYLENOL 6-08 tablet by ity of ARTHRITIS 00:00: mouth 3 [place] PAIN) 650 00 (three) Medical mg CR times Branch tablet daily as needed for Pain. SITagliptin 2022-0 Yes [id number] 50mg Take 1 Univers phosphate 6-08 tablet by ity o f 50 mg 00:00: mouth in [place] tablet 00 the Medical morning. Branch acetaminoph 2022-0 Yes [id number] 650mg Take 1 Univers en (TYLENOL 6-08 tablet by ity of ARTHRITIS 00:00: mouth 3 [place] PAIN) 650 00 (three) Medical mg CR times Branch tablet daily as needed for Pain. SITagliptin 2022-0 Yes [id number] 50mg Take 1 Univers phosphate 6-08 tablet by ity o f 50 mg 00:00: mouth in [place] tablet 00 the Medical morning. Branch acetaminoph 2022-0 Yes [id number] 650mg Take 1 Univers en (TYLENOL 6-08 tablet by ity of ARTHRITIS 00:00: mouth 3 [place] PAIN) 650 00 (three) Medical mg CR times Branch tablet daily as needed for Pain. SITagliptin 2022-0 Yes [id number] 50mg Take 1 Univers phosphate 6-08 tablet by ity o f 50 mg 00:00: mouth in [place] tablet 00 the Medical morning. Branch acetaminoph 2022-0 Yes [id number] 650mg Take 1 Univers en (TYLENOL 6-08 tablet by ity of ARTHRITIS 00:00: mouth 3 [place] PAIN) 650 00 (three) Medical mg CR times Branch tablet daily as needed for Pain. SITagliptin 2022-0 Yes [id number] 50mg Take 1 Univers phosphate 6-08 tablet by ity o f 50 mg 00:00: mouth in [place] tablet 00 the Medical morning. Branch acetaminoph 3-0 Yes [id number] 650mg Take 1 Univers en (TYLENOL 6-08 tablet by ity of ARTHRITIS 00:00: mouth 3 [place] PAIN) 650 00 (three) Medical mg CR times Branch tablet daily as needed for Pain. acetaminoph 3-0 Yes [id number] 650mg Take 1 Univers en (TYLENOL 6-08 tablet by ity of ARTHRITIS 00:00: mouth 3 [place] PAIN) 650 00 (three) Medical mg CR times Branch tablet daily as needed for Pain. acetaminoph 3-0 Yes [id number] 650mg Take 1 Univers en (TYLENOL 6-08 tablet by ity of ARTHRITIS 00:00: mouth 3 [place] PAIN) 650 00 (three) Medical mg CR times Branch tablet daily as needed for Pain. acetaminoph 3-0 Yes [id number] 650mg Take 1 Univers en (TYLENOL 6-08 tablet by ity of ARTHRITIS 00:00: mouth 3 [place] PAIN) 650 00 (three) Medical mg CR times Branch tablet daily as needed for Pain. acetaminoph 3-0 Yes [id number] 650mg Take 1 Univers en (TYLENOL 6-08 tablet by ity of ARTHRITIS 00:00: mouth 3 [place] PAIN) 650 00 (three) Medical mg CR times Branch tablet daily as needed for Pain. acetaminoph 3-0 Yes [id number] 650mg Take 1 Univers en (TYLENOL 6-08 tablet by ity of ARTHRITIS 00:00: mouth 3 [place] PAIN) 650 00 (three) Medical mg CR times Branch tablet daily as needed for Pain. acetaminoph 3-0 Yes [id number] 650mg Take 1 Univers en (TYLENOL 6-08 tablet by ity of ARTHRITIS 00:00: mouth 3 [place] PAIN) 650 00 (three) Medical mg CR times Branch tablet daily as needed for Pain. SITagliptin 3-0 2023- No [id number] 50mg Take 1 Univers phosphate 6-08 06-16 tablet by ity of 50 mg 00:00: 00:00 mouth in [place] tablet 00 :00 the Medical morning. Branch SITagliptin 2023-0 2023- No [id number] 50mg Take 1 Univers phosphate 6-08 06-16 tablet by ity of 50 mg 00:00: 00:00 mouth in [place] tablet 00 :00 the Medical morning. Branch SITagliptin 2022-0 3- No [id number] 50mg Take 1 Univers phosphate 6-08 -16 tablet by ity of 50 mg 00:00: 00:00 mouth in [place] tablet 00 :00 the Medical morning. Branch SITagliptin 2022-0 3- No [id number] 50mg Take 1 Univers phosphate 6-08 -16 tablet by ity of 50 mg 00:00: 00:00 mouth in [place] tablet 00 :00 the Medical morning. Branch SITagliptin 2022-0 3- No [id number] 50mg Take 1 Univers phosphate 6-08 -16 tablet by ity of 50 mg 00:00: 00:00 mouth in [place] tablet 00 :00 the Medical morning. [facility] 2022-0 Yes [id number] USE TWICE Univers MICROFILL 4-05 DAILY FOR ity o f strip 00:00: BLOOD [place] 00 GLUCOSE Medical MONITORING [facility] 2022-0 Yes [id number] USE TWICE Univers MICROFILL 4-05 DAILY FOR ity o f strip 00:00: BLOOD [place] GLUCOSE Medical MONITORING [facility] 2022-0 Yes [id number] USE TWICE Univers MICROFILL 4-05 DAILY FOR ity o f strip 00:00: BLOOD [place] GLUCOSE Medical MONITORING [facility] 2022-0 Yes [id number] USE TWICE Univers MICROFILL 4-05 DAILY FOR ity o f strip 00:00: BLOOD [place] 00 GLUCOSE Medical MONITORING [facility] 2022-0 Yes [id number] USE TWICE Univers MICROFILL 4-05 DAILY FOR ity o f strip 00:00: BLOOD [place] GLUCOSE Medical MONITORING [facility] 3-0 Yes [id number] USE TWICE Univers MICROFILL 4-05 DAILY FOR ity o f strip 00:00: BLOOD [place] 00 GLUCOSE Medical MONITORING [facility] 3-0 Yes [id number] USE TWICE Univers MICROFILL 4-05 DAILY FOR ity o f strip 00:00: BLOOD [place] GLUCOSE Medical MONITORING [facility] 3-0 Yes [id number] USE TWICE Univers MICROFILL 4-05 DAILY FOR ity o f strip 00:00: BLOOD [place] GLUCOSE Medical MONITORING [facility] 2022-0 Yes [id number] USE TWICE Univers MICROFILL 4-05 DAILY FOR ity o f strip 00:00: BLOOD [place] 00 GLUCOSE Medical MONITORING Branch [facility] 2022-0 Yes [id number] USE TWICE Univers MICROFILL 4-05 DAILY FOR ity o f strip 00:00: BLOOD [place] GLUCOSE Medical MONITORING Branch [facility] 2022-0 Yes [id number] USE TWICE Univers MICROFILL 4-05 DAILY FOR ity o f strip 00:00: BLOOD [place] GLUCOSE Medical MONITORING Branch [facility] 2022-0 Yes [id number] USE TWICE Univers MICROFILL 4-05 DAILY FOR ity o f strip 00:00: BLOOD [place] GLUCOSE Medical MONITORING Branch [facility] 2022-0 Yes [id number] USE TWICE Univers MICROFILL 4-05 DAILY FOR ity o f strip 00:00: BLOOD [place] GLUCOSE Medical MONITORING Branch [facility] 2022-0 Yes [id number] USE TWICE Univers MICROFILL 4-05 DAILY FOR ity o f strip 00:00: BLOOD [place] GLUCOSE Medical MONITORING Branch [facility] 2022-0 Yes [id number] USE TWICE Univers MICROFILL 4-05 DAILY FOR ity o f strip 00:00: BLOOD [place] GLUCOSE Medical MONITORING Branch [facility] 2022-0 Yes [id number] USE TWICE Univers MICROFILL 4-05 DAILY FOR ity o f strip 00:00: BLOOD [place] GLUCOSE Medical MONITORING Branch [facility] 2022-0 Yes [id number] USE TWICE Univers MICROFILL 4-05 DAILY FOR ity o f strip 00:00: BLOOD [place] GLUCOSE Medical MONITORING Branch [facility] 2022-0 Yes [id number] USE TWICE Univers MICROFILL 4-05 DAILY FOR ity o f strip 00:00: BLOOD [place] GLUCOSE Medical MONITORING Branch [facility] 2022-0 Yes [id number] USE TWICE Univers MICROFILL 4-05 DAILY FOR ity o f strip 00:00: BLOOD [place] 00 GLUCOSE Medical MONITORING Branch Insulin 2022-0 Yes [id number] Use as Univ ers [place], 3-30 directed ity of Disposable, 00:00: twice [place] (PEN 00 daily to Medical NEEDLE) 32 inject Branch gauge x insulin; 32" Ndle ICD-10 E11.65 blood sugar 2022-0 Yes [id number] USE TWICE Univers diagnostic 3-30 DAILY FOR ity of (ASCENSIA 00:00: BLOOD [place] MICROFILL) 00 GLUCOSE Medica l strip MONITORING Branch Insulin Asp 2022-0 Yes [id number] INJECT 20 Univers Prt-Insulin 3-30 UNITS ity of Aspart 00:00: UNDER THE [place] (NOVOLOG 00 SKIN 2 Medical MIX 70-30) (TWO) Branch 100 unit/mL TIMES (70-30) DAILY injection BEFORE BREAKFAST AND DINNER. Insulin 2022-0 Yes [id number] Use as Univ ers [place], 3-30 directed ity of Disposable, 00:00: twice [place] (PEN 00 daily to Medical NEEDLE) 32 inject Branch gauge x insulin; " Ndle ICD-10 E11.65 blood sugar 2022-0 Yes [id number] USE TWICE Univers diagnostic 3-30 DAILY FOR ity of (ASCENSIA 00:00: BLOOD [place] MICROFILL) 00 GLUCOSE Medica l strip MONITORING Branch Insulin Asp 2022-0 Yes [id number] INJECT 28 Univers Prt-Insulin 3-30 UNITS ity of Aspart 00:00: UNDER THE [place] (NOVOLOG 00 SKIN 2 Medical MIX 70-30) (TWO) Branch 100 unit/mL TIMES (70-30) DAILY injection BEFORE BREAKFAST AND DINNER. lisinopriL 2022-0 Yes [id number] 20mg Take 1 U nivers 20 mg 3-30 tablet by ity of tablet 00:00: mouth in [place] 00 the Medical morning. Branch Insulin 2022-0 Yes [id number] Use as Univ ers [place], 3-30 directed ity of Disposable, 00:00: twice [place] (PEN 00 daily to Medical NEEDLE) 32 inject Branch gauge x insulin; " Ndle ICD-10 E11.65 blood sugar 2022-0 Yes [id number] USE TWICE Univers diagnostic 3-30 DAILY FOR ity of (ASCENSIA 00:00: BLOOD [place] MICROFILL) 00 GLUCOSE Medica l strip MONITORING Branch Insulin Asp 2022-0 Yes [id number] INJECT 28 Univers Prt-Insulin 3-30 UNITS ity of Aspart 00:00: UNDER THE [place] (NOVOLOG 00 SKIN 2 Medical MIX 70-30) (TWO) Branch 100 unit/mL TIMES (70-30) DAILY injection BEFORE BREAKFAST AND DINNER. lisinopriL 2022-0 Yes [id number] 20mg Take 1 U nivers 20 mg 3-30 tablet by ity of tablet 00:00: mouth in [place] 00 the Medical morning. Branch Insulin 2022-0 Yes [id number] Use as Univ ers [place], 3-30 directed ity of Disposable, 00:00: twice [place] (PEN 00 daily to Medical NEEDLE) 32 inject Branch gauge x insulin; " Ndle ICD-10 E11.65 blood sugar 2022-0 Yes [id number] USE TWICE Univers diagnostic 3-30 DAILY FOR ity of (ASCENSIA 00:00: BLOOD [place] MICROFILL) 00 GLUCOSE Medica l strip MONITORING Branch Insulin Asp 2022-0 Yes [id number] INJECT 28 Univers Prt-Insulin 3-30 UNITS ity of Aspart 00:00: UNDER THE [place] (NOVOLOG 00 SKIN 2 Medical MIX 70-30) (TWO) Branch 100 unit/mL TIMES (70-30) DAILY injection BEFORE BREAKFAST AND DINNER. lisinopriL 2022-0 Yes [id number] 20mg Take 1 U nivers 20 mg 3-30 tablet by ity of tablet 00:00: mouth in [place] 00 the Medical morning. Branch Insulin 2022-0 Yes [id number] Use as Univ ers [place], 3-30 directed ity of Disposable, 00:00: twice [place] (PEN 00 daily to Medical NEEDLE) 32 inject Branch gauge x insulin; " Ndle ICD-10 E11.65 blood sugar 2022-0 Yes [id number] USE TWICE Univers diagnostic 3-30 DAILY FOR ity of (ASCENSIA 00:00: BLOOD [place] MICROFILL) 00 GLUCOSE Medica l strip MONITORING Branch Insulin Asp 2022-0 Yes [id number] INJECT 28 Univers Prt-Insulin 3-30 UNITS ity of Aspart 00:00: UNDER THE [place] (NOVOLOG 00 SKIN 2 Medical MIX 70-30) (TWO) Branch 100 unit/mL TIMES (70-30) DAILY injection BEFORE BREAKFAST AND DINNER. lisinopriL 2022-0 Yes [id number] 20mg Take 1 U nivers 20 mg 3-30 tablet by ity of tablet 00:00: mouth in [place] 00 the Medical morning. Branch Insulin 2022-0 Yes [id number] Use as Univ ers [place], 3-30 directed ity of Disposable, 00:00: twice [place] (PEN 00 daily to Medical NEEDLE) 32 inject Branch gauge x insulin; " Ndle ICD-10 E11.65 blood sugar 2022-0 Yes [id number] USE TWICE Univers diagnostic 3-30 DAILY FOR ity of (ASCENSIA 00:00: BLOOD [place] MICROFILL) 00 GLUCOSE Medica l strip MONITORING Branch Insulin Asp 2022-0 Yes [id number] INJECT 28 Univers Prt-Insulin 3-30 UNITS ity of Aspart 00:00: UNDER THE [place] (NOVOLOG 00 SKIN 2 Medical MIX 70-30) (TWO) Branch 100 unit/mL TIMES (70-30) DAILY injection BEFORE BREAKFAST AND DINNER. lisinopriL 2022-0 Yes [id number] 20mg Take 1 U nivers 20 mg 3-30 tablet by ity of tablet 00:00: mouth in [place] 00 the Medical morning. Branch Insulin 2022-0 Yes [id number] Use as Univ ers [place], 3-30 directed ity of Disposable, 00:00: twice [place] (PEN 00 daily to Medical NEEDLE) 32 inject Branch gauge x insulin; " Ndle ICD-10 E11.65 blood sugar Yes [id number] USE TWICE Univers diagnostic 3-30 DAILY FOR ity of (ASCENSIA 00:00: BLOOD [place] MICROFILL) 00 GLUCOSE Medica l strip MONITORING Branch Insulin Asp 0 Yes [id number] INJECT 28 Univers Prt-Insulin 3-30 UNITS ity of Aspart 00:00: UNDER THE [place] (NOVOLOG 00 SKIN 2 Medical MIX 70-30) (TWO) Branch 100 unit/mL TIMES (70-30) DAILY injection BEFORE BREAKFAST AND DINNER. lisinopriL 2022-0 Yes [id number] 20mg Take 1 U nivers 20 mg 3-30 tablet by ity of tablet 00:00: mouth in [place] 00 the Medical morning. Branch Insulin 2022-0 Yes [id number] Use as Univ ers [place], 3-30 directed ity of Disposable, 00:00: twice [place] (PEN 00 daily to Medical NEEDLE) 32 inject Branch gauge x insulin; " Ndle ICD-10 E11.65 blood sugar Yes [id number] USE TWICE Univers diagnostic 3-30 DAILY FOR ity of (ASCENSIA 00:00: BLOOD [place] MICROFILL) 00 GLUCOSE Medica l strip MONITORING Branch Insulin Asp 2022-0 Yes [id number] INJECT 28 Univers Prt-Insulin 3-30 UNITS ity of Aspart 00:00: UNDER THE [place] (NOVOLOG 00 SKIN 2 Medical MIX 70-30) (TWO) Branch 100 unit/mL TIMES (70-30) DAILY injection BEFORE BREAKFAST AND DINNER. lisinopriL 2022-0 Yes [id number] 20mg Take 1 U nivers 20 mg 3-30 tablet by ity of tablet 00:00: mouth in [place] 00 the Medical morning. Branch Insulin Yes [id number] Use as Univ ers [place], 3-30 directed ity of Disposable, 00:00: twice [place] (PEN 00 daily to Medical NEEDLE) 32 inject Branch gauge x insulin; " Ndle ICD-10 E11.65 blood sugar Yes [id number] USE TWICE Univers diagnostic 3-30 DAILY FOR ity of (ASCENSIA 00:00: BLOOD [place] MICROFILL) 00 GLUCOSE Medica l strip MONITORING Branch Insulin Asp 0 Yes [id number] INJECT 28 Univers Prt-Insulin 3-30 UNITS ity of Aspart 00:00: UNDER THE [place] (NOVOLOG 00 SKIN 2 Medical MIX 70-30) (TWO) Branch 100 unit/mL TIMES (70-30) DAILY injection BEFORE BREAKFAST AND DINNER. lisinopriL Yes [id number] 20mg Take 1 U nivers 20 mg 3-30 tablet by ity of tablet 00:00: mouth in [place] 00 the Medical morning. Branch Insulin Yes [id number] Use as Univ ers [place], 3-30 directed ity of Disposable, 00:00: twice [place] (PEN 00 daily to Medical NEEDLE) 32 inject Branch gauge x insulin; " Ndle ICD-10 E11.65 Insulin Asp Yes [id number] INJECT 28 Univers Prt-Insulin 3-30 UNITS ity of Aspart 00:00: UNDER THE [place] (NOVOLOG 00 SKIN 2 Medical MIX 70-30) (TWO) Branch 100 unit/mL TIMES (70-30) DAILY injection BEFORE BREAKFAST AND DINNER. lisinopriL 0 Yes [id number] 20mg Take 1 U nivers 20 mg 3-30 tablet by ity of tablet 00:00: mouth in [place] 00 the Medical morning. Branch Insulin 0 Yes [id number] Use as Univ ers [place], 3-30 directed ity of Disposable, 00:00: twice [place] (PEN 00 daily to Medical NEEDLE) 32 inject Branch gauge x insulin; " Ndle ICD-10 E11.65 Insulin Asp 0 Yes [id number] INJECT 28 Univers Prt-Insulin 3-30 UNITS ity of Aspart 00:00: UNDER THE [place] (NOVOLOG 00 SKIN 2 Medical MIX 70-30) (TWO) Branch 100 unit/mL TIMES (70-30) DAILY injection BEFORE BREAKFAST AND DINNER. lisinopriL 3-0 Yes [id number] 20mg Take 1 U nivers 20 mg 3-30 tablet by ity of tablet 00:00: mouth in [place] 00 the Medical morning. Branch Insulin 2022-0 Yes [id number] Use as Univ ers [place], 3-30 directed ity of Disposable, 00:00: twice [place] (PEN 00 daily to Medical NEEDLE) 32 inject Branch gauge x insulin; 5/" Ndle ICD-10 E11.65 Insulin Asp 2022-0 Yes [id number] INJECT 28 Univers Prt-Insulin 3-30 UNITS ity of Aspart 00:00: UNDER THE [place] (NOVOLOG 00 SKIN 2 Medical MIX 70-30) (TWO) Branch 100 unit/mL TIMES (70-30) DAILY injection BEFORE BREAKFAST AND DINNER. lisinopriL 3-0 Yes [id number] 20mg Take 1 U nivers 20 mg 3-30 tablet by ity of tablet 00:00: mouth in [place] 00 the Medical morning. Branch Insulin 2022-0 Yes [id number] Use as Univ ers [place], 3-30 directed ity of Disposable, 00:00: twice [place] (PEN 00 daily to Medical NEEDLE) 32 inject Branch gauge x insulin; " Ndle ICD-10 E11.65 Insulin Asp 2022-0 Yes [id number] INJECT 28 Univers Prt-Insulin 3-30 UNITS ity of Aspart 00:00: UNDER THE [place] (NOVOLOG 00 SKIN 2 Medical MIX 70-30) (TWO) Branch 100 unit/mL TIMES (70-30) DAILY injection BEFORE BREAKFAST AND DINNER. lisinopriL 3-0 Yes [id number] 20mg Take 1 U nivers 20 mg 3-30 tablet by ity of tablet 00:00: mouth in [place] 00 the Medical morning. Branch Insulin 2022-0 Yes [id number] Use as [facility] [place], 3-30 directed ity of Disposable, 00:00: twice [place] (PEN 00 daily to Medical NEEDLE) 32 inject Branch gauge x insulin; 5/32" Ndle ICD-10 E11.65 Insulin Asp 2022-0 Yes [id number] INJECT 28 [facility] Prt-Insulin 3-30 UNITS ity of Aspart 00:00: UNDER THE [place] (NOVOLOG 00 SKIN 2 Medical MIX 70-30) (TWO) Branch 100 unit/mL TIMES (70-30) DAILY injection BEFORE BREAKFAST AND DINNER. lisinopriL 2022-0 Yes [id number] 20mg Take 1 U nivers 20 mg 3-30 tablet by ity of tablet 00:00: mouth in [place] 00 the Medical morning. Branch Insulin 2022-0 Yes [id number] Use as [facility] [place], 3-30 directed ity of Disposable, 00:00: twice [place] (PEN 00 daily to Medical NEEDLE) 32 inject Branch gauge x insulin; 5/32" Ndle ICD-10 E11.65 Insulin Asp 2022-0 Yes [id number] INJECT 28 [facility] Prt-Insulin 3-30 UNITS ity of Aspart 00:00: UNDER THE [place] (NOVOLOG 00 SKIN 2 Medical MIX 70-30) (TWO) Branch 100 unit/mL TIMES (70-30) DAILY injection BEFORE BREAKFAST AND DINNER. lisinopriL 2022-0 Yes [id number] 20mg Take 1 U nivers 20 mg 3-30 tablet by ity of tablet 00:00: mouth in [place] 00 the Medical morning. Branch Insulin 2022-0 Yes [id number] Use as [facility] [place], 3-30 directed ity of Disposable, 00:00: twice [place] (PEN 00 daily to Medical NEEDLE) 32 inject Branch gauge x insulin; " Ndle ICD-10 E11.65 Insulin 2022-0 Yes [id number] Use as [facility] [place], 3-30 directed ity of Disposable, 00:00: twice [place] (PEN 00 daily to Medical NEEDLE) 32 inject Branch gauge x insulin; " Ndle ICD-10 E11.65 Insulin Asp 2022-0 Yes [id number] INJECT 28 [facility] Prt-Insulin 3-30 UNITS ity of Aspart 00:00: UNDER THE [place] (NOVOLOG 00 SKIN 2 Medical MIX 70-30) (TWO) Branch 100 unit/mL TIMES (70-30) DAILY injection BEFORE BREAKFAST AND DINNER. lisinopriL 2022-0 Yes [id number] 20mg Take 1 U nivers 20 mg 3-30 tablet by ity of tablet 00:00: mouth in [place] 00 the Medical morning. Branch Insulin 2022-0 Yes [id number] Use as [facility] [place], 3-30 directed ity of Disposable, 00:00: twice [place] (PEN 00 daily to Medical NEEDLE) 32 inject Branch gauge x insulin; " Ndle ICD-10 E11.65 Insulin Asp 2022-0 Yes [id number] INJECT 28 [facility] Prt-Insulin 3-30 UNITS ity of Aspart 00:00: UNDER THE [place] (NOVOLOG 00 SKIN 2 Medical MIX 70-30) (TWO) Branch 100 unit/mL TIMES (70-30) DAILY injection BEFORE BREAKFAST AND DINNER. lisinopriL 2022-0 Yes [id number] 20mg Take 1 U nivers 20 mg 3-30 tablet by ity of tablet 00:00: mouth in [place] 00 the Medical morning. Branch Insulin 2022-0 Yes [id number] Use as [facility] [place], 3-30 directed ity of Disposable, 00:00: twice [place] (PEN 00 daily to Medical NEEDLE) 32 inject Branch gauge x insulin; " Ndle ICD-10 E11.65 lisinopriL 2022-0 Yes [id number] 20mg Take 1 U nivers 20 mg 3-30 tablet by ity of tablet 00:00: mouth in [place] 00 the Medical morning. Branch Insulin 2022-0 Yes [id number] Use as [facility] [place], 3-30 directed ity of Disposable, 00:00: twice [place] (PEN 00 daily to Medical NEEDLE) 32 inject Branch gauge x insulin; " Ndle ICD-10 E11.65 lisinopriL 2022-0 Yes [id number] 20mg Take 1 [facility] nivers 20 mg 3-30 tablet by ity of tablet 00:00: mouth in [place] 00 the Medical morning. Branch Insulin 2022-0 Yes [id number] Use as [facility] [place], 3-30 directed ity of Disposable, 00:00: twice [place] (PEN 00 daily to Medical NEEDLE) 32 inject Branch gauge x insulin; " Ndle ICD-10 E11.65 lisinopriL 2022-0 Yes [id number] 20mg Take 1 [facility] nivers 20 mg 3-30 tablet by ity of tablet 00:00: mouth in [place] 00 the Medical morning. Branch Insulin 2022-0 Yes [id number] Use as [facility] [place], 3-30 directed ity of Disposable, 00:00: twice [place] (PEN 00 daily to Medical NEEDLE) 32 inject Branch gauge x insulin; " Ndle ICD-10 E11.65 lisinopriL 2022-0 Yes [id number] 20mg Take 1 [facility] nivers 20 mg 3-30 tablet by ity of tablet 00:00: mouth in [place] 00 the Medical morning. Branch Insulin 2022-0 Yes [id number] Use as [facility] [place], 3-30 directed ity of Disposable, 00:00: twice [place] (PEN 00 daily to Medical NEEDLE) 32 inject Branch gauge x insulin; 5/32" Ndle ICD-10 E11.65 lisinopriL 2022-0 Yes [id number] 20mg Take 1 [facility] nivers 20 mg 3-30 tablet by ity of tablet 00:00: mouth in [place] the Medical morning. Branch Insulin 2022-0 Yes [id number] Use as [facility] [place], 3-30 directed ity of Disposable, 00:00: twice [place] (PEN 00 daily to Medical NEEDLE) 32 inject Branch gauge x insulin; 532" Ndle ICD-10 E11.65 lisinopriL 2022-0 Yes [id number] 20mg Take 1 [facility] nivers 20 mg 3-30 tablet by ity of tablet 00:00: mouth in [place] the Medical morning. Branch Insulin 2022-0 Yes [id number] Use as [facility] [place], 3-30 directed ity of Disposable, 00:00: twice [place] (PEN 00 daily to Medical NEEDLE) 32 inject Branch gauge x insulin; 32" Ndle ICD-10 E11.65 lisinopriL 2022-0 Yes [id number] 20mg Take 1 U nivers 20 mg 3-30 tablet by ity of tablet 00:00: mouth in [place] the Medical morning. Branch Insulin 2022-0 Yes [id number] Use as [facility] [place], 3-30 directed ity of Disposable, 00:00: twice [place] (PEN 00 daily to Medical NEEDLE) 32 inject Branch gauge x insulin; 5/32" Ndle ICD-10 E11.65 lisinopriL 2022-0 Yes [id number] 20mg Take 1 U nivers 20 mg 3-30 tablet by ity of tablet 00:00: mouth in [place] the Medical morning. Branch Insulin 2022-0 Yes [id number] Use as [facility] [place], 3-30 directed ity of Disposable, 00:00: twice [place] (PEN 00 daily to Medical NEEDLE) 32 inject Branch gauge x insulin; 5/32" Ndle ICD-10 E11.65 lisinopriL 2022-0 Yes [id number] 20mg Take 1 U nivers 20 mg 3-30 tablet by ity of tablet 00:00: mouth in [place] 00 the Medical morning. Branch Insulin Yes [id number] Use as [facility] [place], 3-30 directed ity of Disposable, 00:00: twice [place] (PEN 00 daily to Medical NEEDLE) 32 inject Branch gauge x insulin; " Ndle ICD-10 E11.65 lisinopriL Yes [id number] 20mg Take 1 [facility] n[facility] 20 mg 3-30 tablet by ity of tablet 00:00: mouth in [place] 00 the Medical morning. Branch Insulin Yes [id number] Use as [facility] [place], 3-30 directed ity of Disposable, 00:00: twice [place] (PEN 00 daily to Medical NEEDLE) 32 inject Branch gauge x insulin; " Ndle ICD-10 E11.65 lisinopriL Yes [id number] 20mg Take 1 U nivers 20 mg 3-30 tablet by ity of tablet 00:00: mouth in [place] 00 the Medical morning. Branch Insulin Asp 2022- No [id number] INJECT 28 [facility] Prt-Insulin 3-30 06-08 UNITS ity of Aspart 00:00: 00:00 UNDER THE [place] (NOVOLOG 00 :00 SKIN 2 Medical MIX 70-30) (TWO) Branch 100 unit/mL TIMES (70-30) DAILY injection BEFORE BREAKFAST AND DINNER. Insulin Asp 2022- No [id number] INJECT 28 [facility] Prt-Insulin 3-30 06-08 UNITS ity of Aspart 00:00: 00:00 UNDER THE [place] (NOVOLOG 00 :00 SKIN 2 Medical MIX 70-30) (TWO) Branch 100 unit/mL TIMES (70-30) DAILY injection BEFORE BREAKFAST AND DINNER. Insulin Asp 2022- No [id number] INJECT 28 [facility] Prt-Insulin 3-30 06-08 UNITS ity of Aspart 00:00: 00:00 UNDER THE [place] (NOVOLOG 00 :00 SKIN 2 Medical MIX 70-30) (TWO) Branch 100 unit/mL TIMES (70-30) DAILY injection BEFORE BREAKFAST AND DINNER. blood sugar 2022- No [id number] USE TWICE Univers diagnostic 3-30 04-05 DAILY FOR ity of (ASCENSIA 00:00: 00:00 BLOOD [facility]) 00 :00 GLUCOSE Medica l strip MONITORING Branch blood sugar 2022- No [id number] USE TWICE Univers diagnostic 3-30 04-05 DAILY FOR ity of (ASCENSIA 00:00: 00:00 BLOOD [place] MICROFILL) 00 :00 GLUCOSE Medica l strip MONITORING Branch Insulin Asp 2022- No [id number] INJECT 20 [facility] Prt-Insulin 3-30 03-30 UNITS ity of Aspart 00:00: 00:00 UNDER THE [place] (NOVOLOG 00 :00 SKIN 2 Medical MIX 70-30) (TWO) Branch 100 unit/mL TIMES (70-30) DAILY injection BEFORE BREAKFAST AND DINNER. Insulin Asp 2022- No [id number] INJECT 20 [facility] Prt-Insulin 3-30 03-30 UNITS ity of Aspart 00:00: 00:00 UNDER THE [place] (NOVOLOG 00 :00 SKIN 2 Medical MIX 70-30) (TWO) Branch 100 unit/mL TIMES (70-30) DAILY injection BEFORE BREAKFAST AND DINNER. Insulin Asp 2022- No [id number] INJECT 20 [facility] Prt-Insulin 3-30 03-30 UNITS ity of Aspart 00:00: 00:00 UNDER THE [place] (NOVOLOG 00 :00 SKIN 2 Medical MIX 70-30) (TWO) Branch 100 unit/mL TIMES (70-30) DAILY injection BEFORE BREAKFAST AND DINNER. Insulin Asp 2022- No [id number] INJECT 20 [facility] Prt-Insulin 3-30 03-30 UNITS ity of Aspart 00:00: 00:00 UNDER THE [place] (NOVOLOG 00 :00 SKIN 2 Medical MIX 70-30) (TWO) Branch 100 unit/mL TIMES (70-30) DAILY injection BEFORE BREAKFAST AND DINNER. Insulin Asp 2022- No [id number] INJECT 20 [facility] Prt-Insulin 3-30 03-30 UNITS ity of Aspart 00:00: 00:00 UNDER THE [place] (NOVOLOG 00 :00 SKIN 2 Medical MIX 70-30) (TWO) Branch 100 unit/mL TIMES (70-30) DAILY injection BEFORE BREAKFAST AND DINNER. lisinopriL Yes [id number] 20mg Take 1 U nivers 20 mg 3-28 tablet by ity of tablet 00:00: mouth in [place] 00 the morning. Branch lisinopriL Yes [id number] 20mg Take 1 U nivers 20 mg 3-28 tablet by ity of tablet 00:00: mouth in [place] 00 the Medical morning. Branch lisinopriL 2022-0 2022- No [id number] 20mg Take 1 [facility] 20 mg 3-28 03-30 tablet by ity of tablet 00:00: 00:00 mouth in [place] 00 :00 the Medical morning. Branch lisinopriL 2022-0 3- No [id number] 20mg Take 1 [facility] 20 mg 3-28 03-30 tablet by ity of tablet 00:00: 00:00 mouth in [place] 00 :00 the Medical morning. Branch lisinopriL 2022-0 2022- No [id number] 20mg Take 1 [facility] 20 mg 3-28 03-30 tablet by ity of tablet 00:00: 00:00 mouth in [place] 00 :00 the Medical morning. Branch lisinopriL 2022-0 3- No [id number] 20mg Take 1 Univers 20 mg 3-28 03-30 tablet by ity of tablet 00:00: 00:00 mouth in [place] 00 :00 the Medical morning. Branch NaCl 0.9% 2022- No 1000mL at 999 Uni vers (NS) bolus 07-27-06 mL/hr, ity of infusion 17:15: 18:09 1,000 mL, [place] as 1,000 mL 00 :00 IV Medical Infusion, Branch ONCE, 1 dose, On Wed07/27/22 at 1115, STAT ondansetron 2022-0 2022- No 4mg 4 mg, Slow Univers (ZOFRAN 07-27- IV Push, ity of (PF)) 16:15: 16:13 ONCE, 1 [place] injection 4 00 :00 dose, On Medi monika mg Wed07/27/22 Branch at 1015, PADMA ondansetron 2022-0 2022- No 4mg 4 mg, Slow Univers (ZOFRAN 2- 02- IV Push, ity of (PF)) 15:30: 15:32 ONCE, 1 [place] injection 4 00 :00 dose, On Medi monika mg Wed07/27/22 Branch at 0930, PADMA nirmatrelvi 2022-0 Yes [id number] 3{tbl} Take 3 Univers r-ritonavir 2-06 tablets by it y of (PAXLOVID, 00:00: mouth in [place] EUA,) 300 00 the Medical mg (150 mg morning Branch x 2)-100 mg and 3 tablet tablets in the evening. ondansetron 2023-0 Yes [id number] 4mg Take 1 Univers 4 mg 2-06 tablet by ity of disintegrat 00:00: mouth [place] ing tablet 00 every 8 Medica l (eight) Branch hours as needed for Nausea and Vomiting (N/V). nirmatrelvi 2023-0 Yes [id number] 3{tbl} Take 3 Univers r-ritonavir 2-06 tablets by it y of (PAXLOVID, 00:00: mouth in [place] EUA,) 300 00 the Medical mg (150 mg morning Branch x 2)-100 mg and 3 tablet tablets in the evening. ondansetron 2023-0 Yes [id number] 4mg Take 1 Univers 4 mg 2-06 tablet by ity of disintegrat 00:00: mouth [place] ing tablet 00 every 8 Medica l (eight) Branch hours as needed for Nausea and Vomiting (N/V). nirmatrelvi 2023-0 Yes [id number] 3{tbl} Take 3 Univers r-ritonavir 2-06 tablets by it y of (PAXLOVID, 00:00: mouth in [place] as EUA,) 300 00 the Medical mg (150 mg morning Branch x 2)-100 mg and 3 tablet tablets in the evening. ondansetron 2023-0 Yes [id number] 4mg Take 1 Univers 4 mg 2-06 tablet by ity of disintegrat 00:00: mouth [place] ing tablet 00 every 8 Medica l (eight) Branch hours as needed for Nausea and Vomiting (N/V). nirmatrelvi 2023-0 Yes [id number] 3{tbl} Take 3 Univers r-ritonavir 2-06 tablets by it y of (PAXLOVID, 00:00: mouth in [place] as EUA,) 300 00 the Medical mg (150 mg morning Branch x 2)-100 mg and 3 tablet tablets in the evening. ondansetron 2023-0 Yes [id number] 4mg Take 1 Univers 4 mg 2-06 tablet by ity of disintegrat 00:00: mouth [place] ing tablet 00 every 8 Medica l (eight) Branch hours as needed for Nausea and Vomiting (N/V). ondansetron 2023-0 Yes [id number] 4mg Take 1 Univers 4 mg 2-06 tablet by ity of disintegrat 00:00: mouth [place] ing tablet 00 every 8 Medica l (eight) Branch hours as needed for Nausea and Vomiting (N/V). ondansetron 2023-0 Yes [id number] 4mg Take 1 Univers 4 mg 2-06 tablet by ity of disintegrat 00:00: mouth [place] ing tablet 00 every 8 Medica l (eight) Branch hours as needed for Nausea and Vomiting (N/V). ondansetron 2023-0 Yes [id number] 4mg Take 1 Univers 4 mg 2-06 tablet by ity of disintegrat 00:00: mouth [place] ing tablet 00 every 8 Medica l (eight) Branch hours as needed for Nausea and Vomiting (N/V). ondansetron 2023-0 Yes [id number] 4mg Take 1 Univers 4 mg 2-06 tablet by ity of disintegrat 00:00: mouth [place] ing tablet 00 every 8 Medica l (eight) Branch hours as needed for Nausea and Vomiting (N/V). ondansetron 2023-0 Yes [id number] 4mg Take 1 Univers 4 mg 2-06 tablet by ity of disintegrat 00:00: mouth [place] ing tablet 00 every 8 Medica l (eight) Branch hours as needed for Nausea and Vomiting (N/V). ondansetron 2023-0 Yes [id number] 4mg Take 1 Univers 4 mg 2-06 tablet by ity of disintegrat 00:00: mouth [place] ing tablet 00 every 8 Medica l (eight) Branch hours as needed for Nausea and Vomiting (N/V). ondansetron 2023-0 Yes [id number] 4mg Take 1 Univers 4 mg 2-06 tablet by ity of disintegrat 00:00: mouth [place] ing tablet 00 every 8 Medica l (eight) Branch hours as needed for Nausea and Vomiting (N/V). ondansetron 2023-0 Yes [id number] 4mg Take 1 Univers 4 mg 2-06 tablet by ity of disintegrat 00:00: mouth [place] ing tablet 00 every 8 Medica l (eight) Branch hours as needed for Nausea and Vomiting (N/V). ondansetron 2023-0 Yes [id number] 4mg Take 1 Univers 4 mg 2-06 tablet by ity of disintegrat 00:00: mouth [place] ing tablet 00 every 8 Medica l (eight) Branch hours as needed for Nausea and Vomiting (N/V). ondansetron 2023-0 Yes [id number] 4mg Take 1 Univers 4 mg 2-06 tablet by ity of disintegrat 00:00: mouth [place] ing tablet 00 every 8 Medica l (eight) Branch hours as needed for Nausea and Vomiting (N/V). ondansetron 2023-0 Yes [id number] 4mg Take 1 Univers 4 mg 2-06 tablet by ity of disintegrat 00:00: mouth [place] ing tablet 00 every 8 Medica l (eight) Branch hours as needed for Nausea and Vomiting (N/V). ondansetron 2023-0 Yes [id number] 4mg Take 1 Univers 4 mg 2-06 tablet by ity of disintegrat 00:00: mouth [place] ing tablet 00 every 8 Medica l (eight) Branch hours as needed for Nausea and Vomiting (N/V). ondansetron 2023-0 Yes [id number] 4mg Take 1 Univers 4 mg 2-06 tablet by ity of disintegrat 00:00: mouth [place] ing tablet 00 every 8 Medica l (eight) Branch hours as needed for Nausea and Vomiting (N/V). ondansetron 2023-0 Yes [id number] 4mg Take 1 Univers 4 mg 2-06 tablet by ity of disintegrat 00:00: mouth [place] ing tablet 00 every 8 Medica l (eight) Branch hours as needed for Nausea and Vomiting (N/V). ondansetron 2023-0 Yes [id number] 4mg Take 1 Univers 4 mg 2-06 tablet by ity of disintegrat 00:00: mouth [place] ing tablet 00 every 8 Medica l (eight) Branch hours as needed for Nausea and Vomiting (N/V). ondansetron 2023-0 Yes [id number] 4mg Take 1 Univers 4 mg 2-06 tablet by ity of disintegrat 00:00: mouth [place] ing tablet 00 every 8 Medica l (eight) Branch hours as needed for Nausea and Vomiting (N/V). ondansetron 2023-0 Yes [id number] 4mg Take 1 Univers 4 mg 2-06 tablet by ity of disintegrat 00:00: mouth [place] ing tablet 00 every 8 Medica l (eight) Branch hours as needed for Nausea and Vomiting (N/V). ondansetron 2022-0 2022- No [id number] 4mg Take 1 Univers 4 mg 2-06 06-08 tablet by ity of disintegrat 00:00: 00:00 [place] tablet 00 :00 every 8 Medica l (eight) Branch hours as needed for Nausea and Vomiting (N/V). ondansetron 2022-0 2022- No [id number] 4mg Take 1 Univers 4 mg 2-06 06-08 tablet by ity of disintegrat 00:00: 00:00 [place] tablet 00 :00 every 8 Medica l (eight) Branch hours as needed for Nausea and Vomiting (N/V). ondansetron 2022-0 2022- No [id number] 4mg Take 1 Univers 4 mg 2-06 06-08 tablet by ity of disintegrat 00:00: 00:00 [place] tablet 00 :00 every 8 Medica l (eight) Branch hours as needed for Nausea and Vomiting (N/V). nirmatrelvi 2022- No [id number] 3{tbl} Take 3 Univers r-ritonavir 2-06 03-30 tablets by i ty of (PAXLOVID, 00:00: 00:00 mouth in [place] EUA,) 300 00 :00 the Medical mg (150 mg morning Branch x 2)-100 mg and 3 tablet tablets in the evening. nirmatrelvi 2022- No [id number] 3{tbl} Take 3 Univers r-ritonavir 2-06 03-30 tablets by i ty of (PAXLOVID, 00:00: 00:00 mouth in [place] EUA,) 300 00 :00 the Medical mg (150 mg morning Branch x 2)-100 mg and 3 tablet tablets in the evening. nirmatrelvi 2022- No [id number] 3{tbl} Take 3 Univers r-ritonavir 2-06 03-30 tablets by i ty of (PAXLOVID, 00:00: 00:00 mouth in [place] EUA,) 300 00 :00 the Medical mg (150 mg morning Branch x 2)-100 mg and 3 tablet tablets in the evening. nirmatrelvi 2022- No [id number] 3{tbl} Take 3 Univers r-ritonavir 2- 03-30 tablets by i ty of (PAXLOVID, 00:00: 00:00 mouth in [place] EUA,) 300 00 :00 the Medical mg (150 mg morning Branch x 2)-100 mg and 3 tablet tablets in the evening. nirmatrelvi 2022- No [id number] 3{tbl} Take 3 Univers r-ritonavir 2- 03-30 tablets by i ty of (PAXLOVID, 00:00: 00:00 mouth in [place] EUA,) 300 00 :00 the Medical mg (150 mg morning Branch x 2)-100 mg and 3 tablet tablets in the evening. D10W 10 % 2021-06 Yes at 20-40 Univ ers IV infusion 2-29 mL/hr, IV ity of 16:28: Infusion, [place] 11 TITRATE, Medical Starting Branch on [facility] 06/18/22 at 1028, Until Discontinu ed, Routine, CV Preprocedu re D10W 10 % 2021-06- No at 20-40 Uni vers IV infusion 12-29 mL/hr, IV it y of 16:28: 20:34 Infusion, [place] 11 :21 TITRATE, Medical Starting Branch on [facility] 06/18/22 at 1028, Until [facility] 06/18/22 at 1434, Routine, CV Preprocedu re iopamidol 2021-06- No ONCE INTRA U nivers (ISOVUE 06-18 PROCEDURE, ity o f 370-500 mL) 15:56: 16:17 Starting [place] injection 00 :44 on [facility] 06/18/22 Branch at 0956, Until [facility] 06/18/22 at 1017, Routine, CV Intraproce dure nitroglycer 2021-06- No ONCE INTRA Univers in (TRIDIL) 06-18 PROCEDURE, i ty of 2 mg in 10 15:41: 16:17 Starting [place] mL D5W for 29 :44 on [facility] Cardiac 06/18/22 Branch Cath at 0941, Until [facility] 06/18/22 at 1017, Routine, CV Intraproce dure heparin 2021-06- No ONCE INTRA Uni vers 1,000 06-18 PROCEDURE, ity of unit/mL 15:41: 16:17 Starting [place] injection 09 :44 on [facility] 06/18/22 Branch at 0941, Until [facility] 06/18/22 at 1017, Routine, CV Intraproce dure lidocaine 2021-06- No ONCE INTRA U nivers 1% (PF) 06-18 PROCEDURE, ity o f (XYLOCAINE) 15:34: 16:17 Starting [place] injection 00 :44 on [facility] 06/18/22 Branch at 0934, Until [facility] 06/18/22 at 1017, Routine, CV Intraproce dure midazolam 2021-06- No ONCE INTRA U nivers (VERSED) 06-18 PROCEDURE, ity of injection 15:22: 16:17 Starting [place] as 00 :44 on [facility] 06/18/22 Branch at 0922, Until [facility] 06/18/22 at 1017, Routine, CV Intraproce dure FENTanyl PF 2021-06- No ONCE INTRA Univers (SUBLIMAZE 06-18 PROCEDURE, it y of (PF)) 15:22: 16:17 Starting [place] injection 00 :44 on [facility] 06/18/22 Branch at 0922, Until [facility] 06/18/22 at 1017, Routine, CV Intraproce dure aspirin 2021-06 Yes [id number] 325mg 325 mg, U nivers tablet 325 Oral, ity of mg 15:00: DAILY, [place] 00 First dose Medical on [facility] 06/18/22 at 0900, Until Discontinu ed, Routine aspirin 2021-06- No [id number] 325mg 325 mg, Univers tablet 325 06-18 Oral, ity of mg 15:00: 20:34 DAILY, [place] 00 :21 First dose Medical on [facility] 06/18/22 at 0900, Until Discontinu ed, Routine [...] mouth ity o f DOSE 12:29: daily. [place] ASPIRIN) 81 19 Medical mg EC Branch tablet CBD-KINGS 2021-06 Yes Apply to Univ ers WITH 2-29 area(s). ity of LIDOCAINE 12:29: [place] TOPICAL 19 Medical Branch aspirin 2021-06 Yes 81mg Take 81 mg Univ ers (ADULT LOW 2-29 by mouth ity o f DOSE 12:29: daily. [place] ASPIRIN) 81 19 Medical mg EC Branch tablet CBD-KINGS 2021-06 Yes Apply to Univ ers WITH 2-29 area(s). ity of LIDOCAINE 12:29: [place] TOPICAL 19 Medical Branch aspirin 2021-06 Yes 81mg Take 81 mg Univ ers (ADULT LOW 2-29 by mouth ity o f DOSE 06:26: daily. [place] ASPIRIN) 81 18 Medical mg EC Branch tablet CBD-KINGS 2021-06 Yes Apply to Univ ers WITH 2-29 area(s). ity of LIDOCAINE 06:26: [place] TOPICAL 18 Medical Branch lisinopriL 2021-06 Yes [id number] 20mg Take 1 U nivers 20 mg 2-29 tablet by ity of tablet 00:00: mouth in [place] the Medical morning. Branch lisinopriL 2021-06 Yes [id number] 20mg Take 1 U nivers 20 mg 2-29 tablet by ity of tablet 00:00: mouth in [place] [address] the Medical morning. Branch lisinopriL 2021-06 Yes [id number] 20mg Take 1 U nivers 20 mg 2-29 tablet by ity of tablet 00:00: mouth in [place] the Medical morning. Branch lisinopriL 2021-06 Yes [id number] 20mg Take 1 U nivers 20 mg 2-29 tablet by ity of tablet 00:00: mouth in [place] the Medical morning. Branch lisinopriL 2021-06 Yes [id number] 20mg Take 1 U nivers 20 mg 2-29 tablet by ity of tablet 00:00: mouth in [place] the Medical morning. Branch lisinopriL 2021-06 Yes [id number] 20mg Take 1 U nivers 20 mg 2-29 tablet by ity of tablet 00:00: mouth in [place] 00 the Medical morning. Branch lisinopriL 2021-06 Yes [id number] 20mg Take 1 U nivers 20 mg 2-29 tablet by ity of tablet 00:00: mouth in [place] 00 the Medical morning. Branch lisinopriL 2021- Yes [id number] 20mg Take 1 U nivers 20 mg 2-29 tablet by ity of tablet 00:00: mouth in [place] 00 the Medical morning. Branch lisinopriL 2021- Yes [id number] 20mg Take 1 U nivers 20 mg 2-29 tablet by ity of tablet 00:00: mouth in [place] 00 the Medical morning. Branch lisinopriL 2021-06 2023- No [id number] 20mg Take 1 Univers 20 mg 2-29 03-28 tablet by ity of tablet 00:00: 00:00 mouth in [place] 00 :00 the Medical morning. Branch nystatin 2021-06 Yes [id number] Apply to Univers 100,000 2-12 area(s) 2 ity of unit/gram 00:00: (two) [place] powder 00 times Medical daily. Branch nystatin 2021- Yes [id number] Apply to Univers 100,000 2-12 area(s) 2 ity of unit/gram 00:00: (two) [place] powder 00 times Medical daily. Branch nystatin 2021-1 Yes [id number] Apply to Univers 100,000 2-12 area(s) 2 ity of unit/gram 00:00: (two) [place] powder 00 times Medical daily. Branch nystatin 2021- Yes [id number] Apply to Univers 100,000 2-12 area(s) 2 ity of unit/gram 00:00: (two) [place] powder 00 times Medical daily. Branch nystatin 2021- Yes [id number] Apply to Univers 100,000 2-12 area(s) 2 ity of unit/gram 00:00: (two) [place] powder 00 times Medical daily. Branch nystatin 2021-1 Yes [id number] Apply to Univers 100,000 2-12 area(s) 2 ity of unit/gram 00:00: (two) [place] powder 00 times Medical daily. Branch nystatin 2021- Yes [id number] Apply to Univers 100,000 2-12 area(s) 2 ity of unit/gram 00:00: (two) [place] powder 00 times Medical daily. Branch nystatin 2021-1 Yes [id number] Apply to Univers 100,000 2-12 area(s) 2 ity of unit/gram 00:00: (two) [place] powder 00 times Medical daily. Branch nystatin 2021- Yes [id number] Apply to Univers 100,000 2-12 area(s) 2 ity of unit/gram 00:00: (two) [place] powder 00 times Medical daily. Branch nystatin 2021- Yes [id number] Apply to Univers 100,000 2-12 area(s) 2 ity of unit/gram 00:00: (two) [place] powder 00 times Medical daily. Branch nystatin 2021- Yes [id number] Apply to Univers 100,000 2-12 area(s) 2 ity of unit/gram 00:00: (two) [place] powder 00 times Medical daily. Branch nystatin 2021- Yes [id number] Apply to Univers 100,000 2-12 area(s) 2 ity of unit/gram 00:00: (two) [place] powder 00 times Medical daily. Branch nystatin 2021- Yes [id number] Apply to Univers 100,000 2-12 area(s) 2 ity of unit/gram 00:00: (two) [place] powder 00 times Medical daily. Branch nystatin 2021-06 Yes [id number] Apply to [facility] 100,000 2-12 area(s) 2 ity of unit/gram 00:00: (two) [place] powder 00 times Medical daily. Branch nystatin 2021-06 Yes [id number] Apply to [facility] 100,000 2-12 area(s) 2 ity of unit/gram 00:00: (two) [place] powder 00 times Medical daily. Branch nystatin 2021- Yes [id number] Apply to [facility] 100,000 2-12 area(s) 2 ity of unit/gram 00:00: (two) [place] powder 00 times Medical daily. Branch nystatin 2021- Yes [id number] Apply to [facility] 100,000 2-12 area(s) 2 ity of unit/gram 00:00: (two) [place] powder 00 times Medical daily. Branch nystatin 2021- Yes [id number] Apply to [facility] 100,000 2-12 area(s) 2 ity of unit/gram 00:00: (two) [place] powder 00 times Medical daily. Branch nystatin 2021- Yes [id number] Apply to [facility] 100,000 2-12 area(s) 2 ity of unit/gram 00:00: (two) [place] powder 00 times Medical daily. Branch nystatin 2021-1 Yes [id number] Apply to [facility] 100,000 2-12 area(s) 2 ity of unit/gram 00:00: (two) [place] powder 00 times Medical daily. Branch nystatin 2021-1 Yes [id number] Apply to [facility] 100,000 2-12 area(s) 2 ity of unit/gram 00:00: (two) [place] powder 00 times Medical daily. Branch nystatin 2021-1 Yes [id number] Apply to [facility] 100,000 2-12 area(s) 2 ity of unit/gram 00:00: (two) [place] powder 00 times Medical daily. Branch nystatin 2021-1 Yes [id number] Apply to [facility] 100,000 2-12 area(s) 2 ity of unit/gram 00:00: (two) [place] powder 00 times Medical daily. Branch nystatin 2021- Yes [id number] Apply to [facility] 100,000 2-12 area(s) 2 ity of unit/gram 00:00: (two) [place] powder 00 times Medical daily. Branch nystatin 2021- Yes [id number] Apply to [facility] 100,000 2-12 area(s) 2 ity of unit/gram 00:00: (two) [place] powder 00 times Medical daily. Branch nystatin 2021- Yes [id number] Apply to [facility] 100,000 2-12 area(s) 2 ity of unit/gram 00:00: (two) [place] powder 00 times Medical daily. Branch nystatin 2021-1 Yes [id number] Apply to [facility] 100,000 2-12 area(s) 2 ity of unit/gram 00:00: (two) [place] powder 00 times Medical daily. Branch nystatin 2021-1 Yes [id number] Apply to [facility] 100,000 2-12 area(s) 2 ity of unit/gram 00:00: (two) [place] powder 00 times Medical daily. Branch nystatin 2021-1 Yes [id number] Apply to [facility] 100,000 2-12 area(s) 2 ity of unit/gram 00:00: (two) [place] powder 00 times Medical daily. Branch nystatin 2021- Yes [id number] Apply to [facility] 100,000 2-12 area(s) 2 ity of unit/gram 00:00: (two) [place] powder 00 times Medical daily. Branch nystatin 2021- Yes [id number] Apply to [facility] 100,000 2-12 area(s) 2 ity of unit/gram 00:00: (two) [place] powder 00 times Medical daily. Branch nystatin 2021- Yes [id number] Apply to [facility] 100,000 2-12 area(s) 2 ity of unit/gram 00:00: (two) [place] powder 00 times Medical daily. Branch nystatin 2021- Yes [id number] Apply to [facility] 100,000 2-12 area(s) 2 ity of unit/gram 00:00: (two) [place] powder 00 times Medical daily. Branch nystatin 2021-06 Yes [id number] Apply to [facility] 100,000 2-12 area(s) 2 ity of unit/gram 00:00: (two) [place] powder 00 times Medical daily. Branch nystatin 2021-06 Yes [id number] Apply to [facility] 100,000 2-12 area(s) 2 ity of unit/gram 00:00: (two) [place] powder 00 times Medical daily. Branch nystatin 2021- Yes [id number] Apply to [facility] 100,000 2-12 area(s) 2 ity of unit/gram 00:00: (two) [place] powder 00 times Medical daily. Branch nystatin 2021-06 Yes [id number] Apply to [facility] 100,000 2-12 area(s) 2 ity of unit/gram 00:00: (two) [place] powder 00 times Medical daily. Branch nystatin 2021- Yes [id number] Apply to [facility] 100,000 2-12 area(s) 2 ity of unit/gram 00:00: (two) [place] powder 00 times Medical daily. Branch nystatin 2021-1 Yes [id number] Apply to [facility] 100,000 2-12 area(s) 2 ity of unit/gram 00:00: (two) [place] powder 00 times Medical daily. Branch nystatin 2021- Yes [id number] Apply to [facility] 100,000 2-12 area(s) 2 ity of unit/gram 00:00: (two) [place] powder 00 times Medical daily. Branch nystatin 2021-06 Yes [id number] Apply to [facility] 100,000 2-12 area(s) 2 ity of unit/gram 00:00: (two) [place] powder 00 times Medical daily. Branch fluconazole 2021-06- No [id number] 150mg Take 1 [facility] 150 mg 08-02 12-26 tablet by ity of tablet 00:00: 05:59 mouth [place] 00 :00 every 4 Medical (four) Branch days for 4 doses. promethazin 2021-06 Yes [id number] 5mL Take 5 mL [facility] e-dextromet 1-29 by mouth 4 it y of horphan 00:00: (four) [place] 6.25-15 00 times Medical mg/5 mL daily as Branch syrup needed for Cough. promethazin 2021-06 Yes [id number] 5mL Take 5 mL [facility] e-dextromet 1-29 by mouth 4 it y of horphan 00:00: (four) [place] 6.25-15 00 times Medical mg/5 mL daily as Branch syrup needed for Cough. promethazin 2021-06 Yes [id number] 5mL Take 5 mL [facility] e-dextromet 1-29 by mouth 4 it y of horphan 00:00: (four) [place] 6.25-15 00 times Medical mg/5 mL daily as Branch syrup needed for Cough. promethazin 2021-06 Yes [id number] 5mL Take 5 mL [facility] e-dextromet 1-29 by mouth 4 it y of horphan 00:00: (four) [place] 6.25-15 00 times Medical mg/5 mL daily as Branch syrup needed for Cough. promethazin 2021-06 Yes [id number] 5mL Take 5 mL [facility] e-dextromet 1-29 by mouth 4 it y of horphan 00:00: (four) [place] 6.25-15 00 times Medical mg/5 mL daily as Branch syrup needed for Cough. promethazin 2021-06 Yes [id number] 5mL Take 5 mL [facility] e-dextromet 1-29 by mouth 4 it y of horphan 00:00: (four) [place] 6.25-15 00 times Medical mg/5 mL daily as Branch syrup needed for Cough. promethazin 2021-06 Yes [id number] 5mL Take 5 mL [facility] e-dextromet 1-29 by mouth 4 it y of horphan 00:00: (four) [place] 6.25-15 00 times Medical mg/5 mL daily as Branch syrup needed for Cough. promethazin 2021-06 Yes [id number] 5mL Take 5 mL [facility] e-dextromet 1-29 by mouth 4 it y of horphan 00:00: (four) [place] 6.25-15 00 times Medical mg/5 mL daily as Branch syrup needed for Cough. promethazin 2021-06 Yes [id number] 5mL Take 5 mL [facility] e-dextromet 1-29 by mouth 4 it y of horphan 00:00: (four) [place] 6.25-15 00 times Medical mg/5 mL daily as Branch syrup needed for Cough. promethazin 2021-06 Yes [id number] 5mL Take 5 mL [facility] e-dextromet 1-29 by mouth 4 it y of horphan 00:00: (four) [place] 6.25-15 00 times Medical mg/5 mL daily as Branch syrup needed for Cough. promethazin 2021-06 Yes [id number] 5mL Take 5 mL [facility] e-dextromet 1-29 by mouth 4 it y of horphan 00:00: (four) [place] 6.25-15 00 times Medical mg/5 mL daily as Branch syrup needed for Cough. promethazin 2021-06 Yes [id number] 5mL Take 5 mL [facility] e-dextromet 1-29 by mouth 4 it y of horphan 00:00: (four) [place] 6.25-15 00 times Medical mg/5 mL daily as Branch syrup needed for Cough. promethazin 2021-06 Yes [id number] 5mL Take 5 mL [facility] e-dextromet 1-29 by mouth 4 it y of horphan 00:00: (four) [place] 6.25-15 00 times Medical mg/5 mL daily as Branch syrup needed for Cough. promethazin 2021-06 Yes [id number] 5mL Take 5 mL [facility] e-dextromet 1-29 by mouth 4 it y of horphan 00:00: (four) [place] 6.25-15 00 times Medical mg/5 mL daily as Branch syrup needed for Cough. promethazin 2021-06 Yes [id number] 5mL Take 5 mL [facility] e-dextromet 1-29 by mouth 4 it y of horphan 00:00: (four) [place] 6.25-15 00 times Medical mg/5 mL daily as Branch syrup needed for Cough. promethazin 2021-06 Yes [id number] 5mL Take 5 mL [facility] e-dextromet 1-29 by mouth 4 it y of horphan 00:00: (four) [place] 6.25-15 00 times Medical mg/5 mL daily as Branch syrup needed for Cough. promethazin 2021-06 Yes [id number] 5mL Take 5 mL [facility] e-dextromet 1-29 by mouth 4 it y of horphan 00:00: (four) [place] 6.25-15 00 times Medical mg/5 mL daily as Branch syrup needed for Cough. promethazin 2021-06 Yes [id number] 5mL Take 5 mL [facility] e-dextromet 1-29 by mouth 4 it y of horphan 00:00: (four) [place] 6.25-15 00 times Medical mg/5 mL daily as Branch syrup needed for Cough. promethazin 2021-06 Yes [id number] 5mL Take 5 mL [facility] e-dextromet 1-29 by mouth 4 it y of horphan 00:00: (four) [place] 6.25-15 00 times Medical mg/5 mL daily as Branch syrup needed for Cough. promethazin 2021-06 Yes [id number] 5mL Take 5 mL [facility] e-dextromet 1-29 by mouth 4 it y of horphan 00:00: (four) [place] 6.25-15 00 times Medical mg/5 mL daily as Branch syrup needed for Cough. promethazin 2021-06 Yes [id number] 5mL Take 5 mL [facility] e-dextromet 1-29 by mouth 4 it y of horphan 00:00: (four) [place] 6.25-15 00 times Medical mg/5 mL daily as Branch syrup needed for Cough. promethazin 2021-06 Yes [id number] 5mL Take 5 mL [facility] e-dextromet 1-29 by mouth 4 it y of horphan 00:00: (four) [place] 6.25-15 00 times Medical mg/5 mL daily as Branch syrup needed for Cough. promethazin 2021-06 Yes [id number] 5mL Take 5 mL [facility] e-dextromet 1-29 by mouth 4 it y of horphan 00:00: (four) [place] 6.25-15 00 times Medical mg/5 mL daily as Branch syrup needed for Cough. promethazin 2021-06 Yes [id number] 5mL Take 5 mL [facility] e-dextromet 1-29 by mouth 4 it y of horphan 00:00: (four) [place] 6.25-15 00 times Medical mg/5 mL daily as Branch syrup needed for Cough. promethazin 2021-06 Yes [id number] 5mL Take 5 mL [facility] e-dextromet 1-29 by mouth 4 it y of horphan 00:00: (four) [place] 6.25-15 00 times Medical mg/5 mL daily as Branch syrup needed for Cough. promethazin 2021-06 Yes [id number] 5mL Take 5 mL [facility] e-dextromet 1-29 by mouth 4 it y of horphan 00:00: (four) [place] 6.25-15 00 times Medical mg/5 mL daily as Branch syrup needed for Cough. promethazin 2021-06 Yes [id number] 5mL Take 5 mL [facility] e-dextromet 1-29 by mouth 4 it y of horphan 00:00: (four) [place] 6.25-15 00 times Medical mg/5 mL daily as Branch syrup needed for Cough. promethazin 2021-06 Yes [id number] 5mL Take 5 mL [facility] e-dextromet 1-29 by mouth 4 it y of horphan 00:00: (four) [place] 6.25-15 00 times Medical mg/5 mL daily as Branch syrup needed for Cough. promethazin 2021-06 Yes [id number] 5mL Take 5 mL [facility] e-dextromet 1-29 by mouth 4 it y of horphan 00:00: (four) [place] 6.25-15 00 times Medical mg/5 mL daily as Branch syrup needed for Cough. promethazin 2021-06 Yes [id number] 5mL Take 5 mL [facility] e-dextromet 1-29 by mouth 4 it y of horphan 00:00: (four) [place] 6.25-15 00 times Medical mg/5 mL daily as Branch syrup needed for Cough. promethazin 2021-06 Yes [id number] 5mL Take 5 mL [facility] e-dextromet 1-29 by mouth 4 it y of horphan 00:00: (four) [place] 6.25-15 00 times Medical mg/5 mL daily as Branch syrup needed for Cough. promethazin 2021-06- No [id number] 5mL Take 5 mL [facility] e-dextromet 07-19 06-08 by mouth 4 i ty of horphan 00:00: 00:00 (four) [place] 6.25-15 00 :00 times Medical mg/5 mL daily as Branch syrup needed for Cough. promethazin 2021-06- No [id number] 5mL Take 5 mL [facility] e-dextromet 07-19 06-08 by mouth 4 i ty of horphan 00:00: 00:00 (four) [place] 6.25-15 00 :00 times Medical mg/5 mL daily as Branch syrup needed for Cough. promethazin 2021-06- No [id number] 5mL Take 5 mL [facility] e-dextromet 07-19-08 by mouth 4 i ty of horphan 00:00: 00:00 (four) [place] 6.25-15 00 :00 times Medical mg/5 mL daily as Branch syrup needed for Cough. ESCITALOPRA 2021-06 Yes [id number] TAKE 1 [facility] M OXALATE 1-02 TABLET BY ity o f 10 mg 00:00: MOUTH [place] tablet 00 EVERY DAY Medical Branch ESCITALOPRA 2021-06 Yes [id number] TAKE 1 [facility] M OXALATE 1-02 TABLET BY ity o f 10 mg 00:00: MOUTH [place] tablet 00 EVERY DAY Medical Branch ESCITALOPRA 2021-06 Yes [id number] TAKE 1 [facility] M OXALATE 1-02 TABLET BY ity o f 10 mg 00:00: MOUTH [place] tablet 00 EVERY DAY Medical Branch ESCITALOPRA 2021-06 Yes [id number] TAKE 1 [facility] M OXALATE 1-02 TABLET BY ity o f 10 mg 00:00: MOUTH [place] tablet 00 EVERY DAY Medical Branch ESCITALOPRA 2021-06 Yes [id number] TAKE 1 [facility] M OXALATE 1-02 TABLET BY ity o f 10 mg 00:00: MOUTH [place] tablet 00 EVERY DAY Medical Branch ESCITALOPRA 2021-06 Yes [id number] TAKE 1 [facility] M OXALATE 1-02 TABLET BY ity o f 10 mg 00:00: MOUTH [place] tablet 00 EVERY DAY Medical Branch ESCITALOPRA 2021-06 Yes [id number] TAKE 1 [facility] M OXALATE 1-02 TABLET BY ity o f 10 mg 00:00: MOUTH [place] tablet 00 EVERY DAY Medical Branch ESCITALOPRA 2021-06 Yes [id number] TAKE 1 [facility] M OXALATE 1-02 TABLET BY ity o f 10 mg 00:00: MOUTH [place] tablet 00 EVERY DAY Medical Branch ESCITALOPRA 2021-06 Yes [id number] TAKE 1 [facility] M OXALATE 1-02 TABLET BY ity o f 10 mg 00:00: MOUTH [place] tablet 00 EVERY DAY Medical Branch ESCITALOPRA 2021-06 Yes [id number] TAKE 1 [facility] M OXALATE 1-02 TABLET BY ity o f 10 mg 00:00: MOUTH [place] tablet 00 EVERY DAY Medical Branch ESCITALOPRA 2021-06 Yes [id number] TAKE 1 [facility] M OXALATE 1-02 TABLET BY ity o f 10 mg 00:00: MOUTH [place] tablet 00 EVERY DAY Medical Branch ESCITALOPRA 2021-06 Yes [id number] TAKE 1 [facility] M OXALATE 1-02 TABLET BY ity o f 10 mg 00:00: MOUTH [place] tablet 00 EVERY DAY Medical Branch ESCITALOPRA 2021-06 Yes [id number] TAKE 1 [facility] M OXALATE 1-02 TABLET BY ity o f 10 mg 00:00: MOUTH [place] tablet 00 EVERY DAY Medical Branch ESCITALOPRA 2021-06 Yes [id number] TAKE 1 [facility] M OXALATE 1-02 TABLET BY ity o f 10 mg 00:00: MOUTH [place] tablet 00 EVERY DAY Medical Branch ESCITALOPRA 2021-06 Yes [id number] TAKE 1 [facility] M OXALATE 1-02 TABLET BY ity o f 10 mg 00:00: MOUTH [place] tablet 00 EVERY DAY Medical Branch ESCITALOPRA 2021-06 Yes [id number] TAKE 1 [facility] M OXALATE 1-02 TABLET BY ity o f 10 mg 00:00: MOUTH [place] tablet 00 EVERY DAY Medical Branch ESCITALOPRA 2021-06 Yes [id number] TAKE 1 [facility] M OXALATE 1-02 TABLET BY ity o f 10 mg 00:00: MOUTH [place] tablet 00 EVERY DAY Medical Branch ESCITALOPRA 2021-06 Yes [id number] TAKE 1 [facility] M OXALATE 1-02 TABLET BY ity o f 10 mg 00:00: MOUTH [place] tablet 00 EVERY DAY Medical Branch ESCITALOPRA 2021-06 Yes [id number] TAKE 1 [facility] M OXALATE 1-02 TABLET BY ity o f 10 mg 00:00: MOUTH [place] tablet 00 EVERY DAY Medical Branch ESCITALOPRA 2021-06 Yes [id number] TAKE 1 [facility] M OXALATE 1-02 TABLET BY ity o f 10 mg 00:00: MOUTH [place] tablet 00 EVERY DAY Medical Branch ESCITALOPRA 2021-06 Yes [id number] TAKE 1 [facility] M OXALATE 1-02 TABLET BY ity o f 10 mg 00:00: MOUTH [place] tablet 00 EVERY DAY Medical Branch ESCITALOPRA 2021-06 Yes [id number] TAKE 1 [facility] M OXALATE 1-02 TABLET BY ity o f 10 mg 00:00: MOUTH [place] tablet 00 EVERY DAY Medical Branch ESCITALOPRA 2021-06 Yes [id number] TAKE 1 [facility] M OXALATE 1-02 TABLET BY ity o f 10 mg 00:00: MOUTH [place] tablet 00 EVERY DAY Medical Branch ESCITALOPRA 2021-06 Yes [id number] TAKE 1 [facility] M OXALATE 1-02 TABLET BY ity o f 10 mg 00:00: MOUTH [place] tablet 00 EVERY DAY Medical Branch ESCITALOPRA 2021-06 Yes [id number] TAKE 1 [facility] M OXALATE 1-02 TABLET BY ity o f 10 mg 00:00: MOUTH [place] tablet 00 EVERY DAY Medical Branch ESCITALOPRA 2021-06 Yes [id number] TAKE 1 [facility] M OXALATE 1-02 TABLET BY ity o f 10 mg 00:00: MOUTH [place] tablet 00 EVERY DAY Medical Branch ESCITALOPRA 2021-06 Yes [id number] TAKE 1 [facility] M OXALATE 1-02 TABLET BY ity o f 10 mg 00:00: MOUTH [place] tablet 00 EVERY DAY Medical Branch ESCITALOPRA 2021-06 Yes [id number] TAKE 1 [facility] M OXALATE 1-02 TABLET BY ity o f 10 mg 00:00: MOUTH [place] tablet 00 EVERY DAY Medical Branch ESCITALOPRA 2021-06 Yes [id number] TAKE 1 [facility] M OXALATE 1-02 TABLET BY ity o f 10 mg 00:00: MOUTH [place] tablet 00 EVERY DAY Medical Branch ESCITALOPRA 2021-06 Yes [id number] TAKE 1 [facility] M OXALATE 1-02 TABLET BY ity o f 10 mg 00:00: MOUTH [place] tablet 00 EVERY DAY Medical Branch ESCITALOPRA 2021-06 Yes [id number] TAKE 1 [facility] M OXALATE 1-02 TABLET BY ity o f 10 mg 00:00: MOUTH [place] tablet 00 EVERY DAY Medical Branch ESCITALOPRA 2021-06 Yes [id number] TAKE 1 [facility] M OXALATE 1-02 TABLET BY ity o f 10 mg 00:00: MOUTH [place] tablet 00 EVERY DAY Medical Branch ESCITALOPRA 2021-06 Yes [id number] TAKE 1 [facility] M OXALATE 1-02 TABLET BY ity o f 10 mg 00:00: MOUTH [place] tablet 00 EVERY DAY Medical Branch ESCITALOPRA 2021-06 Yes [id number] TAKE 1 [facility] M OXALATE 1-02 TABLET BY ity o f 10 mg 00:00: MOUTH [place] tablet 00 EVERY DAY Medical Branch ESCITALOPRA 2021-06 Yes [id number] TAKE 1 [facility] M OXALATE 1-02 TABLET BY ity o f 10 mg 00:00: MOUTH [place] tablet 00 EVERY DAY Medical Branch ESCITALOPRA 2021-06 Yes [id number] TAKE 1 [facility] M OXALATE 1-02 TABLET BY ity o f 10 mg 00:00: MOUTH [place] tablet 00 EVERY DAY Medical Branch ESCITALOPRA 2021-06 Yes [id number] TAKE 1 [facility] M OXALATE 1-02 TABLET BY ity o f 10 mg 00:00: MOUTH [place] tablet 00 EVERY DAY Medical Branch ESCITALOPRA 2021-06 Yes [id number] TAKE 1 [facility] M OXALATE 1-02 TABLET BY ity o f 10 mg 00:00: MOUTH [place] tablet 00 EVERY DAY Medical Branch ESCITALOPRA 2021-06 Yes [id number] TAKE 1 [facility] M OXALATE 1-02 TABLET BY ity o f 10 mg 00:00: MOUTH [place] tablet 00 EVERY DAY Medical Branch ESCITALOPRA 2021-06 Yes [id number] TAKE 1 [facility] M OXALATE 1-02 TABLET BY ity o f 10 mg 00:00: MOUTH [place] tablet 00 EVERY DAY Medical Branch ESCITALOPRA 2021-06 Yes [id number] TAKE 1 [facility] M OXALATE 1-02 TABLET BY ity o f 10 mg 00:00: MOUTH [place] tablet 00 EVERY DAY Medical Branch ESCITALOPRA 2021-06 Yes [id number] TAKE 1 [facility] M OXALATE 1-02 TABLET BY ity o f 10 mg 00:00: MOUTH [place] tablet 00 EVERY DAY Medical Branch ESCITALOPRA 2021-06 Yes [id number] TAKE 1 [facility] M OXALATE 1-02 TABLET BY ity o f 10 mg 00:00: MOUTH [place] tablet 00 EVERY DAY Medical Branch ESCITALOPRA 2021-06 Yes [id number] TAKE 1 [facility] M OXALATE 1-02 TABLET BY ity o f 10 mg 00:00: MOUTH [place] tablet 00 EVERY DAY Medical Branch ESCITALOPRA 2021-06 Yes [id number] TAKE 1 [facility] M OXALATE 1-02 TABLET BY ity o f 10 mg 00:00: MOUTH [place] tablet 00 EVERY DAY Medical Branch ESCITALOPRA 2021-06 Yes [id number] TAKE 1 [facility] M OXALATE 1-02 TABLET BY ity o f 10 mg 00:00: MOUTH [place] tablet 00 EVERY DAY Medical Branch ESCITALOPRA 2021-06 Yes [id number] TAKE 1 [facility] M OXALATE 1-02 TABLET BY ity o f 10 mg 00:00: MOUTH [place] tablet 00 EVERY DAY Medical Branch ESCITALOPRA 2021-06 Yes [id number] TAKE 1 [facility] M OXALATE 1-02 TABLET BY ity o f 10 mg 00:00: MOUTH [place] tablet 00 EVERY DAY [facility] Branch ESCITALOPRA 2021-06 Yes [id number] TAKE 1 [facility] M OXALATE 1-02 TABLET BY ity o f 10 mg 00:00: MOUTH [place] tablet 00 EVERY DAY Medical Branch ESCITALOPRA 2021-06 Yes [id number] TAKE 1 [facility] M OXALATE 1-02 TABLET BY ity o f 10 mg 00:00: MOUTH [place] tablet 00 EVERY DAY [facility] Branch gentamicin 2021-06- No [id number] 80mg Univers injection 0 10-10 [id number] ity of 80 mg 20:15: 19:07 [place] 00 :00 [facility] gentamicin 2021-06- No [id number] 80mg 80 mg, Univers injection 010 10-10 [id number] Intramuscu i ty of 80 mg 20:15: 19:07 lar, ONCE, [place] 00 :00 1 dose, On [facility] Branch 03/30/22 at 1515, PADMA
Re ason for Anti-Infec tive: Empiric Therapy for Suspected Infection< br>Empiric Therapy Site: Urine
D uration of therapy: 72 hours gentamicin 2021-06- No [id number] 80mg [facility] injection 0 10-10 [id number] ity of 80 mg 20:15: 19:07 [place] 00 :00 Medical Branch gentamicin 2021-06- No [id number] 80mg 80 mg, Univers injection 0- 10-10 [id number] Intramuscu i ty of 80 mg 20:15: 19:07 lar, ONCE, [place] 00 :00 1 dose, On [facility] Branch 03/30/22 at 1515, PADMA
Re ason for Anti-Infec tive: Empiric Therapy for Suspected Infection< br>Empiric Therapy Site: Urine
D uration of therapy: 72 hours GABAPENTIN 2021-06- No [id number] 300mg TAKE 1 [facility] 300 mg 0-06 10-28 CAPSULE BY ity of capsule 00:00: 04:59 MOUTH IN [place] 00 :00 THE [facility] AND 1 CAPSULE AT NOON AND 1 CAPSULE IN THE EVENING. DO ALL THIS FOR 21 DAYS. GABAPENTIN 2021-06- No [id number] 300mg TAKE 1 Univers 300 mg 0-06 10-28 CAPSULE BY ity of capsule 00:00: 04:59 MOUTH IN [place] 00 :00 THE [facility] AND 1 CAPSULE AT NOON AND 1 CAPSULE IN THE EVENING. DO ALL THIS FOR 21 DAYS. GABAPENTIN 2021-06- No [id number] 300mg TAKE 1 [facility] 300 mg 0-06 10-28 CAPSULE BY ity of capsule 00:00: 04:59 MOUTH IN [place] 00 :00 THE [facility] AND 1 CAPSULE AT NOON AND 1 CAPSULE IN THE EVENING. DO ALL THIS FOR 21 DAYS. GABAPENTIN 2021-06- No [id number] 300mg TAKE 1 [facility] 300 mg 0-06 10-28 CAPSULE BY ity of capsule 00:00: 04:59 MOUTH IN [place] 00 :00 THE [facility] AND 1 CAPSULE AT NOON AND 1 CAPSULE IN THE EVENING. DO ALL THIS FOR 21 DAYS. GABAPENTIN 2021-06- No [id number] 300mg TAKE 1 [facility] 300 mg 0-06 10-28 CAPSULE BY ity of capsule 00:00: 04:59 MOUTH IN [place] 00 :00 [facility] AND 1 CAPSULE AT NOON AND 1 CAPSULE IN THE EVENING. DO ALL THIS FOR 21 DAYS. Insulin Asp Yes [id number] INJECT 20 Univers Prt-Insulin 9-14 UNITS ity of Aspart 00:00: UNDER THE [place] (NOVOLOG 00 SKIN 2 Medical MIX 70-30) (TWO) Branch 100 unit/mL TIMES (70-30) DAILY injection BEFORE BREAKFAST AND DINNER. Insulin Asp 2021-0 Yes [id number] INJECT 20 [facility] Prt-Insulin 9-14 UNITS ity of Aspart 00:00: UNDER THE [place] (NOVOLOG 00 SKIN 2 Medical MIX 70-30) (TWO) Branch 100 unit/mL TIMES (70-30) DAILY injection BEFORE BREAKFAST AND DINNER. Insulin Asp 2021-0 Yes [id number] INJECT 20 [facility] Prt-Insulin 9-14 UNITS ity of Aspart 00:00: UNDER THE [place] (NOVOLOG 00 SKIN 2 Medical MIX 70-30) (TWO) Branch 100 unit/mL TIMES (70-30) DAILY injection BEFORE BREAKFAST AND DINNER. Insulin Asp 2021-0 Yes [id number] INJECT 20 [facility] Prt-Insulin 9-14 UNITS ity of Aspart 00:00: UNDER THE [place] (NOVOLOG 00 SKIN 2 Medical MIX 70-30) (TWO) Branch 100 unit/mL TIMES (70-30) DAILY injection BEFORE BREAKFAST AND DINNER. Insulin Asp 2021-0 Yes [id number] INJECT 20 [facility] Prt-Insulin 9-14 UNITS ity of Aspart 00:00: UNDER THE [place] (NOVOLOG 00 SKIN 2 Medical MIX 70-30) (TWO) Branch 100 unit/mL TIMES (70-30) DAILY injection BEFORE BREAKFAST AND DINNER. Insulin Asp 2021-0 Yes [id number] INJECT 20 [facility] Prt-Insulin 9-14 UNITS ity of Aspart 00:00: UNDER THE [place] (NOVOLOG 00 SKIN 2 Medical MIX 70-30) (TWO) Branch 100 unit/mL TIMES (70-30) DAILY injection BEFORE BREAKFAST AND DINNER. Insulin Asp 2021-0 Yes [id number] INJECT 20 [facility] Prt-Insulin 9-14 UNITS ity of Aspart 00:00: UNDER THE [place] (NOVOLOG 00 SKIN 2 Medical MIX 70-30) (TWO) Branch 100 unit/mL TIMES (70-30) DAILY injection BEFORE BREAKFAST AND DINNER. Insulin Asp 2021-0 Yes [id number] INJECT 20 [facility] Prt-Insulin 9-14 UNITS ity of Aspart 00:00: UNDER THE [place] (NOVOLOG 00 SKIN 2 Medical MIX 70-30) (TWO) Branch 100 unit/mL TIMES (70-30) DAILY injection BEFORE BREAKFAST AND DINNER. Insulin Asp 2021-0 Yes [id number] INJECT 20 Univers Prt-Insulin 9-14 UNITS ity of Aspart 00:00: UNDER THE [place] (NOVOLOG 00 SKIN 2 Medical MIX 70-30) (TWO) Branch 100 unit/mL TIMES (70-30) DAILY injection BEFORE BREAKFAST AND DINNER. Insulin Asp 2021-0 Yes [id number] INJECT 20 [facility] Prt-Insulin 9-14 UNITS ity of Aspart 00:00: UNDER THE [place] (NOVOLOG 00 SKIN 2 Medical MIX 70-30) (TWO) Branch 100 unit/mL TIMES (70-30) DAILY injection BEFORE BREAKFAST AND DINNER. Insulin Asp 0 Yes [id number] INJECT 20 [facility] Prt-Insulin 9-14 UNITS ity of Aspart 00:00: UNDER THE [place] (NOVOLOG 00 SKIN 2 Medical MIX 70-30) (TWO) Branch 100 unit/mL TIMES (70-30) DAILY injection BEFORE BREAKFAST AND DINNER. Insulin Asp 2021-0 Yes [id number] INJECT 20 [facility] Prt-Insulin 9-14 UNITS ity of Aspart 00:00: UNDER THE [place] (NOVOLOG 00 SKIN 2 Medical MIX 70-30) (TWO) Branch 100 unit/mL TIMES (70-30) DAILY injection BEFORE BREAKFAST AND DINNER. Insulin Asp 2021-0 Yes [id number] INJECT 20 [facility] Prt-Insulin 9-14 UNITS ity of Aspart 00:00: UNDER THE [place] (NOVOLOG 00 SKIN 2 Medical MIX 70-30) (TWO) Branch 100 unit/mL TIMES (70-30) DAILY injection BEFORE BREAKFAST AND DINNER. Insulin Asp 0 Yes [id number] INJECT 20 [facility] Prt-Insulin 9-14 UNITS ity of Aspart 00:00: UNDER THE [place] (NOVOLOG 00 SKIN 2 Medical MIX 70-30) (TWO) Branch 100 unit/mL TIMES (70-30) DAILY injection BEFORE BREAKFAST AND DINNER. Insulin Asp 0 Yes [id number] INJECT 20 [facility] Prt-Insulin 9-14 UNITS ity of Aspart 00:00: UNDER THE [place] (NOVOLOG 00 SKIN 2 Medical MIX 70-30) (TWO) Branch 100 unit/mL TIMES (70-30) DAILY injection BEFORE BREAKFAST AND DINNER. Insulin Asp 2021-0 Yes [id number] INJECT 20 [facility] Prt-Insulin 9-14 UNITS ity of Aspart 00:00: UNDER THE [place] (NOVOLOG 00 SKIN 2 Medical MIX 70-30) (TWO) Branch 100 unit/mL TIMES (70-30) DAILY injection BEFORE BREAKFAST AND DINNER. Insulin Asp 0 Yes [id number] INJECT 20 [facility] Prt-Insulin 9-14 UNITS ity of Aspart 00:00: UNDER THE [place] (NOVOLOG 00 SKIN 2 Medical MIX 70-30) (TWO) Branch 100 unit/mL TIMES (70-30) DAILY injection BEFORE BREAKFAST AND DINNER. Insulin Asp 0 Yes [id number] INJECT 20 [facility] Prt-Insulin 9-14 UNITS ity of Aspart 00:00: UNDER THE [place] (NOVOLOG 00 SKIN 2 Medical MIX 70-30) (TWO) Branch 100 unit/mL TIMES (70-30) DAILY injection BEFORE BREAKFAST AND DINNER. Insulin Asp 2021-0 Yes [id number] INJECT 20 [facility] Prt-Insulin 9-14 UNITS ity of Aspart 00:00: UNDER THE [place] (NOVOLOG 00 SKIN 2 Medical MIX 70-30) (TWO) Branch 100 unit/mL TIMES (70-30) DAILY injection BEFORE BREAKFAST AND DINNER. Insulin Asp Yes [id number] INJECT 20 [facility] Prt-Insulin 9-14 UNITS ity of Aspart 00:00: UNDER THE [place] (NOVOLOG 00 SKIN 2 Medical MIX 70-30) (TWO) Branch 100 unit/mL TIMES (70-30) DAILY injection BEFORE BREAKFAST AND DINNER. Insulin Asp Yes [id number] INJECT 20 [facility] Prt-Insulin 9-14 UNITS ity of Aspart 00:00: UNDER THE [place] (NOVOLOG 00 SKIN 2 Medical MIX 70-30) (TWO) Branch 100 unit/mL TIMES (70-30) DAILY injection BEFORE BREAKFAST AND DINNER. Insulin Asp Yes [id number] INJECT 20 [facility] Prt-Insulin 9-14 UNITS ity of Aspart 00:00: UNDER THE [place] (NOVOLOG 00 SKIN 2 Medical MIX 70-30) (TWO) Branch 100 unit/mL TIMES (70-30) DAILY injection BEFORE BREAKFAST AND DINNER. Insulin Asp 2021- Yes [id number] INJECT 20 [facility] Prt-Insulin 9-14 UNITS ity of Aspart 00:00: UNDER THE [place] (NOVOLOG 00 SKIN 2 Medical MIX 70-30) (TWO) Branch 100 unit/mL TIMES (70-30) DAILY injection BEFORE BREAKFAST AND DINNER. Insulin Asp Yes [id number] INJECT 20 [facility] Prt-Insulin 9-14 UNITS ity of Aspart 00:00: UNDER THE [place] (NOVOLOG 00 SKIN 2 Medical MIX 70-30) (TWO) Branch 100 unit/mL TIMES (70-30) DAILY injection BEFORE BREAKFAST AND DINNER. Insulin Asp Yes [id number] INJECT 20 [facility] Prt-Insulin 9-14 UNITS ity of Aspart 00:00: UNDER THE [place] (NOVOLOG 00 SKIN 2 Medical MIX 70-30) (TWO) Branch 100 unit/mL TIMES (70-30) DAILY injection BEFORE BREAKFAST AND DINNER. Insulin Asp Yes [id number] INJECT 20 [facility] Prt-Insulin 9-14 UNITS ity of Aspart 00:00: UNDER THE [place] (NOVOLOG 00 SKIN 2 Medical MIX 70-30) (TWO) Branch 100 unit/mL TIMES (70-30) DAILY injection BEFORE BREAKFAST AND DINNER. Insulin Asp Yes [id number] INJECT 20 [facility] Prt-Insulin 9-14 UNITS ity of Aspart 00:00: UNDER THE [place] (NOVOLOG 00 SKIN 2 Medical MIX 70-30) (TWO) Branch 100 unit/mL TIMES (70-30) DAILY injection BEFORE BREAKFAST AND DINNER. Insulin Asp Yes [id number] INJECT 20 [facility] Prt-Insulin 9-14 UNITS ity of Aspart 00:00: UNDER THE [place] (NOVOLOG 00 SKIN 2 Medical MIX 70-30) (TWO) Branch 100 unit/mL TIMES (70-30) DAILY injection BEFORE BREAKFAST AND DINNER. Insulin Asp 2022- No [id number] INJECT 20 [facility] Prt-Insulin 9-14 03-30 UNITS ity of Aspart 00:00: 00:00 UNDER THE [place] (NOVOLOG 00 :00 SKIN 2 Medical MIX 70-30) (TWO) Branch 100 unit/mL TIMES (70-30) DAILY injection BEFORE BREAKFAST AND DINNER. gabapentin 2021- No [id number] 300mg Take 1 [facility] 300 mg 8-15 -06 capsule by ity of capsule 00:00: 04:59 mouth in [place] 00 :00 the Medical morning Branch and 1 capsule at noon and 1 capsule in the evening. Do all this for 21 days. gabapentin 2021- No [id number] 300mg Take 1 [facility] 300 mg 8-15 -06 capsule by ity of capsule 00:00: 04:59 mouth in [place] 00 :00 the Medical morning Branch and 1 capsule at noon and 1 capsule in the evening. Do all this for 21 days. blood sugar Yes [id number] USE TWICE [facility] diagnostic 8-04 DAILY FOR ity of (ASCENSIA 00:00: BLOOD [place] MICROFILL) 00 GLUCOSE Medica l strip MONITORING Branch FINASTERIDE Yes [id number] TAKE 1 [facility] 5 mg tablet 8-04 TABLET BY ity of 00:00: MOUTH [place] 00 EVERY DAY Medical Branch blood sugar Yes [id number] USE TWICE [facility] diagnostic 8-04 DAILY FOR ity of (ASCENSIA 00:00: BLOOD [place] MICROFILL) 00 GLUCOSE Medica l strip MONITORING Branch FINASTERIDE Yes [id number] TAKE 1 [facility] 5 mg tablet 8-04 TABLET BY ity of 00:00: MOUTH [place] 00 EVERY DAY Medical Branch blood sugar Yes [id number] USE TWICE [facility] diagnostic 8-04 DAILY FOR ity of (ASCENSIA 00:00: BLOOD [place] MICROFILL) 00 GLUCOSE Medica l strip MONITORING Branch FINASTERIDE Yes [id number] TAKE 1 [facility] 5 mg tablet 8-04 TABLET BY ity of 00:00: MOUTH [place] 00 EVERY DAY Medical Branch blood sugar Yes [id number] USE TWICE [facility] diagnostic 8-04 DAILY FOR ity of (ASCENSIA 00:00: BLOOD [place] MICROFILL) 00 GLUCOSE Medica l strip MONITORING Branch FINASTERIDE Yes [id number] TAKE 1 [facility] 5 mg tablet 8-04 TABLET BY ity of 00:00: MOUTH [place] 00 EVERY DAY Medical Branch blood sugar Yes [id number] USE TWICE [facility] diagnostic 8-04 DAILY FOR ity of (ASCENSIA 00:00: BLOOD [place] MICROFILL) 00 GLUCOSE Medica l strip MONITORING Branch FINASTERIDE Yes [id number] TAKE 1 [facility] 5 mg tablet 8-04 TABLET BY ity of 00:00: MOUTH [place] 00 EVERY DAY Medical Branch blood sugar Yes [id number] USE TWICE [facility] diagnostic 8-04 DAILY FOR ity of (ASCENSIA 00:00: BLOOD [place] MICROFILL) 00 GLUCOSE Medica l strip MONITORING Branch FINASTERIDE Yes [id number] TAKE 1 [facility] 5 mg tablet 8-04 TABLET BY ity of 00:00: MOUTH [place] 00 EVERY DAY Medical Branch blood sugar Yes [id number] USE TWICE [facility] diagnostic 8-04 DAILY FOR ity of (ASCENSIA 00:00: BLOOD [place] MICROFILL) 00 GLUCOSE Medica l strip MONITORING Branch FINASTERIDE Yes [id number] TAKE 1 [facility] 5 mg tablet 8-04 TABLET BY ity of 00:00: MOUTH [place] 00 EVERY DAY Medical Branch blood sugar 0 Yes [id number] USE TWICE [facility] diagnostic 8-04 DAILY FOR ity of (ASCENSIA 00:00: BLOOD [place] MICROFILL) 00 GLUCOSE Medica l strip MONITORING Branch FINASTERIDE Yes [id number] TAKE 1 [facility] 5 mg tablet 8-04 TABLET BY ity of 00:00: MOUTH [place] 00 EVERY DAY Medical Branch blood sugar Yes [id number] USE TWICE [facility] diagnostic 8-04 DAILY FOR ity of (ASCENSIA 00:00: BLOOD [place] MICROFILL) 00 GLUCOSE Medica l strip MONITORING Branch FINASTERIDE Yes [id number] TAKE 1 [facility] 5 mg tablet 8-04 TABLET BY ity of 00:00: MOUTH [place] 00 EVERY DAY Medical Branch blood sugar Yes [id number] USE TWICE [facility] diagnostic 8-04 DAILY FOR ity of (ASCENSIA 00:00: BLOOD [place] MICROFILL) 00 GLUCOSE Medica l strip MONITORING Branch FINASTERIDE Yes [id number] TAKE 1 [facility] 5 mg tablet 8-04 TABLET BY ity of 00:00: MOUTH [place] 00 EVERY DAY Medical Branch blood sugar 0 Yes [id number] USE TWICE [facility] diagnostic 8-04 DAILY FOR ity of (ASCENSIA 00:00: BLOOD [place] MICROFILL) 00 GLUCOSE Medica l strip MONITORING Branch FINASTERIDE 0 Yes [id number] TAKE 1 [facility] 5 mg tablet 8-04 TABLET BY ity of 00:00: MOUTH [place] 00 EVERY DAY Medical Branch blood sugar 0 Yes [id number] USE TWICE [facility] diagnostic 8-04 DAILY FOR ity of (ASCENSIA 00:00: BLOOD [place] MICROFILL) 00 GLUCOSE Medica l strip MONITORING Branch FINASTERIDE 0 Yes [id number] TAKE 1 [facility] 5 mg tablet 8-04 TABLET BY ity of 00:00: MOUTH [place] 00 EVERY DAY Medical Branch blood sugar 0 Yes [id number] USE TWICE [facility] diagnostic 8-04 DAILY FOR ity of (ASCENSIA 00:00: BLOOD [place] MICROFILL) 00 GLUCOSE Medica l strip MONITORING Branch FINASTERIDE Yes [id number] TAKE 1 [facility] 5 mg tablet 8-04 TABLET BY ity of 00:00: MOUTH [place] 00 EVERY DAY Medical Branch blood sugar 0 Yes [id number] USE TWICE [facility] diagnostic 8-04 DAILY FOR ity of (ASCENSIA 00:00: BLOOD [place] MICROFILL) 00 GLUCOSE Medica l strip MONITORING Branch FINASTERIDE Yes [id number] TAKE 1 [facility] 5 mg tablet 8-04 TABLET BY ity of 00:00: MOUTH [place] 00 EVERY DAY Medical Branch blood sugar Yes [id number] USE TWICE [facility] diagnostic 8-04 DAILY FOR ity of (ASCENSIA 00:00: BLOOD [place] MICROFILL) 00 GLUCOSE Medica l strip MONITORING Branch FINASTERIDE Yes [id number] TAKE 1 [facility] 5 mg tablet 8-04 TABLET BY ity of 00:00: MOUTH [place] 00 EVERY DAY Medical Branch blood sugar Yes [id number] USE TWICE [facility] diagnostic 8-04 DAILY FOR ity of (ASCENSIA 00:00: BLOOD [place] MICROFILL) 00 GLUCOSE Medica l strip MONITORING Branch FINASTERIDE Yes [id number] TAKE 1 [facility] 5 mg tablet 8-04 TABLET BY ity of 00:00: MOUTH [place] 00 EVERY DAY Medical Branch blood sugar Yes [id number] USE TWICE [facility] diagnostic 8-04 DAILY FOR ity of (ASCENSIA 00:00: BLOOD [place] MICROFILL) 00 GLUCOSE Medica l strip MONITORING Branch FINASTERIDE 0 Yes [id number] TAKE 1 [facility] 5 mg tablet 8-04 TABLET BY ity of 00:00: MOUTH [place] 00 EVERY DAY Medical Branch blood sugar 0 Yes [id number] USE TWICE [facility] diagnostic 8-04 DAILY FOR ity of (ASCENSIA 00:00: BLOOD [place] MICROFILL) 00 GLUCOSE Medica l strip MONITORING Branch FINASTERIDE 0 Yes [id number] TAKE 1 [facility] 5 mg tablet 8-04 TABLET BY ity of 00:00: MOUTH [place] 00 EVERY DAY Medical Branch blood sugar 0 Yes [id number] USE TWICE [facility] diagnostic 8-04 DAILY FOR ity of (ASCENSIA 00:00: BLOOD [place] MICROFILL) 00 GLUCOSE Medica l strip MONITORING Branch FINASTERIDE Yes [id number] TAKE 1 [facility] 5 mg tablet 8-04 TABLET BY ity of 00:00: MOUTH [place] 00 EVERY DAY Medical Branch blood sugar Yes [id number] USE TWICE [facility] diagnostic 8-04 DAILY FOR ity of (ASCENSIA 00:00: BLOOD [place] MICROFILL) 00 GLUCOSE Medica l strip MONITORING Branch FINASTERIDE Yes [id number] TAKE 1 [facility] 5 mg tablet 8-04 TABLET BY ity of 00:00: MOUTH [place] 00 EVERY DAY Medical Branch blood sugar Yes [id number] USE TWICE [facility] diagnostic 8-04 DAILY FOR ity of (ASCENSIA 00:00: BLOOD [place] MICROFILL) 00 GLUCOSE Medica l strip MONITORING Branch FINASTERIDE Yes [id number] TAKE 1 [facility] 5 mg tablet 8-04 TABLET BY ity of 00:00: MOUTH [place] 00 EVERY DAY Medical Branch blood sugar Yes [id number] USE TWICE [facility] diagnostic 8-04 DAILY FOR ity of (ASCENSIA 00:00: BLOOD [place] MICROFILL) 00 GLUCOSE Medica l strip MONITORING Branch FINASTERIDE Yes [id number] TAKE 1 [facility] 5 mg tablet 8-04 TABLET BY ity of 00:00: MOUTH [place] 00 EVERY DAY Medical Branch blood sugar Yes [id number] USE TWICE [facility] diagnostic 8-04 DAILY FOR ity of (ASCENSIA 00:00: BLOOD [place] MICROFILL) 00 GLUCOSE Medica l strip MONITORING Branch FINASTERIDE Yes [id number] TAKE 1 [facility] 5 mg tablet 8-04 TABLET BY ity of 00:00: MOUTH [place] 00 EVERY DAY Medical Branch blood sugar Yes [id number] USE TWICE [facility] diagnostic 8-04 DAILY FOR ity of (ASCENSIA 00:00: BLOOD [place] MICROFILL) 00 GLUCOSE Medica l strip MONITORING Branch FINASTERIDE Yes [id number] TAKE 1 [facility] 5 mg tablet 8-04 TABLET BY ity of 00:00: MOUTH [place] 00 EVERY DAY Medical Branch blood sugar Yes [id number] USE TWICE [facility] diagnostic 8-04 DAILY FOR ity of (ASCENSIA 00:00: BLOOD [place] MICROFILL) 00 GLUCOSE Medica l strip MONITORING Branch FINASTERIDE Yes [id number] TAKE 1 [facility] 5 mg tablet 8-04 TABLET BY ity of 00:00: MOUTH [place] 00 EVERY DAY Medical Branch blood sugar 0 Yes [id number] USE TWICE [facility] diagnostic 8-04 DAILY FOR ity of (ASCENSIA 00:00: BLOOD [place] MICROFILL) 00 GLUCOSE Medica l strip MONITORING Branch FINASTERIDE 0 Yes [id number] TAKE 1 [facility] 5 mg tablet 8-04 TABLET BY ity of 00:00: MOUTH [place] 00 EVERY DAY Medical Branch blood sugar 0 Yes [id number] USE TWICE [facility] diagnostic 8-04 DAILY FOR ity of (ASCENSIA 00:00: BLOOD [place] MICROFILL) 00 GLUCOSE Medica l strip MONITORING Branch FINASTERIDE 0 Yes [id number] TAKE 1 [facility] 5 mg tablet 8-04 TABLET BY ity of 00:00: MOUTH [place] 00 EVERY DAY Medical Branch blood sugar 0 Yes [id number] USE TWICE [facility] diagnostic 8-04 DAILY FOR ity of (ASCENSIA 00:00: BLOOD [place] MICROFILL) 00 GLUCOSE Medica l strip MONITORING Branch FINASTERIDE 0 Yes [id number] TAKE 1 [facility] 5 mg tablet 8-04 TABLET BY ity of 00:00: MOUTH [place] 00 EVERY DAY Medical Branch blood sugar 0 Yes [id number] USE TWICE [facility] diagnostic 8-04 DAILY FOR ity of (ASCENSIA 00:00: BLOOD [place] MICROFILL) 00 GLUCOSE Medica l strip MONITORING Branch FINASTERIDE 0 Yes [id number] TAKE 1 [facility] 5 mg tablet 8-04 TABLET BY ity of 00:00: MOUTH [place] 00 EVERY DAY Medical Branch blood sugar 2021-0 Yes [id number] USE TWICE [facility] diagnostic 8-04 DAILY FOR ity of (ASCENSIA 00:00: BLOOD [place] MICROFILL) 00 GLUCOSE Medica l strip MONITORING Branch FINASTERIDE 0 Yes [id number] TAKE 1 [facility] 5 mg tablet 8-04 TABLET BY ity of 00:00: MOUTH [place] 00 EVERY DAY Medical Branch blood sugar 2021-0 Yes [id number] USE TWICE [facility] diagnostic 8-04 DAILY FOR ity of (ASCENSIA 00:00: BLOOD [place] MICROFILL) 00 GLUCOSE Medica l strip MONITORING Branch FINASTERIDE 0 Yes [id number] TAKE 1 [facility] 5 mg tablet 8-04 TABLET BY ity of 00:00: MOUTH [place] 00 EVERY DAY Medical Branch FINASTERIDE 2022-0 Yes [id number] TAKE 1 [facility] 5 mg tablet 8-04 TABLET BY ity of 00:00: MOUTH [place] 00 EVERY DAY Medical Branch FINASTERIDE 2022-0 Yes [id number] TAKE 1 [facility] 5 mg tablet 8-04 TABLET BY ity of 00:00: MOUTH [place] 00 EVERY DAY Medical Branch FINASTERIDE 2022-0 Yes [id number] TAKE 1 [facility] 5 mg tablet 8-04 TABLET BY ity of 00:00: MOUTH [place] 00 EVERY DAY Medical Branch FINASTERIDE 2022-0 Yes [id number] TAKE 1 [facility] 5 mg tablet 8-04 TABLET BY ity of 00:00: MOUTH [place] 00 EVERY DAY Medical Branch FINASTERIDE 2022-0 Yes [id number] TAKE 1 [facility] 5 mg tablet 8-04 TABLET BY ity of 00:00: MOUTH [place] 00 EVERY DAY Medical Branch FINASTERIDE 2022-0 Yes [id number] TAKE 1 [facility] 5 mg tablet 8-04 TABLET BY ity of 00:00: MOUTH [place] 00 EVERY DAY Medical Branch FINASTERIDE 2022-0 Yes [id number] TAKE 1 [facility] 5 mg tablet 8-04 TABLET BY ity of 00:00: MOUTH [place] 00 EVERY DAY Medical Branch FINASTERIDE 2022-0 Yes [id number] TAKE 1 [facility] 5 mg tablet 8-04 TABLET BY ity of 00:00: MOUTH [place] 00 EVERY DAY Medical Branch FINASTERIDE 2022-0 Yes [id number] TAKE 1 [facility] 5 mg tablet 8-04 TABLET BY ity of 00:00: MOUTH [place] 00 EVERY DAY Medical Branch FINASTERIDE 2022-0 Yes [id number] TAKE 1 [facility] 5 mg tablet 8-04 TABLET BY ity of 00:00: MOUTH [place] 00 EVERY DAY Medical Branch FINASTERIDE 2022-0 Yes [id number] TAKE 1 [facility] 5 mg tablet 8-04 TABLET BY ity of 00:00: MOUTH [place] 00 EVERY DAY Medical Branch FINASTERIDE 2022-0 Yes [id number] TAKE 1 [facility] 5 mg tablet 8-04 TABLET BY ity of 00:00: MOUTH [place] 00 EVERY DAY Medical Branch FINASTERIDE 2022-0 Yes [id number] TAKE 1 [facility] 5 mg tablet 8-04 TABLET BY ity of 00:00: MOUTH [place] 00 EVERY DAY Medical Branch FINASTERIDE 2022-0 Yes [id number] TAKE 1 [facility] 5 mg tablet 8-04 TABLET BY ity of 00:00: MOUTH [place] 00 EVERY DAY Medical Branch FINASTERIDE 2-0 Yes [id number] TAKE 1 [facility] 5 mg tablet 8-04 TABLET BY ity of 00:00: MOUTH [place] 00 EVERY DAY Medical Branch FINASTERIDE 2022-0 Yes [id number] TAKE 1 [facility] 5 mg tablet 8-04 TABLET BY ity of 00:00: MOUTH [place] 00 EVERY DAY Medical Branch FINASTERIDE 2-0 Yes [id number] TAKE 1 [facility] 5 mg tablet 8-04 TABLET BY ity of 00:00: MOUTH [place] 00 EVERY DAY Medical Branch FINASTERIDE 2-0 Yes [id number] TAKE 1 [facility] 5 mg tablet 8-04 TABLET BY ity of 00:00: MOUTH [place] 00 EVERY DAY Medical Branch FINASTERIDE 2-0 Yes [id number] TAKE 1 [facility] 5 mg tablet 8-04 TABLET BY ity of 00:00: MOUTH [place] 00 EVERY DAY Medical Branch FINASTERIDE 2021-0 Yes [id number] TAKE 1 [facility] 5 mg tablet 8-04 TABLET BY ity of 00:00: MOUTH [place] 00 EVERY DAY Medical Branch FINASTERIDE 2-0 Yes [id number] TAKE 1 [facility] 5 mg tablet 8-04 TABLET BY ity of 00:00: MOUTH [place] 00 EVERY DAY Medical Branch FINASTERIDE 2022-0 Yes [id number] TAKE 1 [facility] 5 mg tablet 8-04 TABLET BY ity of 00:00: MOUTH [place] 00 EVERY DAY Medical Branch FINASTERIDE 2022-0 Yes [id number] TAKE 1 [facility] 5 mg tablet 8-04 TABLET BY ity of 00:00: MOUTH [place] 00 EVERY DAY Medical Branch FINASTERIDE 2-0 Yes [id number] TAKE 1 [facility] 5 mg tablet 8-04 TABLET BY ity of 00:00: MOUTH [place] 00 EVERY DAY Medical Branch FINASTERIDE 2-0 Yes [id number] TAKE 1 [facility] 5 mg tablet 8-04 TABLET BY ity of 00:00: MOUTH [place] 00 EVERY DAY Medical Branch FINASTERIDE 2022-0 Yes [id number] TAKE 1 [facility] 5 mg tablet 8-04 TABLET BY ity of 00:00: MOUTH [place] 00 EVERY DAY Medical Branch FINASTERIDE 2-0 Yes [id number] TAKE 1 [facility] 5 mg tablet 8-04 TABLET BY ity of 00:00: MOUTH [place] 00 EVERY DAY Medical Branch FINASTERIDE 0 Yes [id number] TAKE 1 [facility] 5 mg tablet 8-04 TABLET BY ity of 00:00: MOUTH [place] 00 EVERY DAY Medical Branch FINASTERIDE 0 Yes [id number] TAKE 1 [facility] 5 mg tablet 8-04 TABLET BY ity of 00:00: MOUTH [place] 00 EVERY DAY Medical Branch blood sugar 0 2023- No [id number] USE TWICE [facility] diagnostic 8- 03-30 DAILY FOR ity of (ASCENSIA 00:00: 00:00 BLOOD [place] MICROFILL) 00 :00 GLUCOSE Medica l strip MONITORING Branch escitalopra Yes [id number] 20mg Take 2 [facility] m oxalate 7-29 tablets by ity of 10 mg 00:00: mouth in [place] tablet 00 the Medical morning. Branch escitalopra Yes [id number] 20mg Take 2 [facility] m oxalate 7-29 tablets by ity of 10 mg 00:00: mouth in [place] tablet 00 the Medical morning. Branch escitalopra Yes [id number] 20mg Take 2 [facility] m oxalate 7-29 tablets by ity of 10 mg 00:00: mouth in [place] tablet 00 the Medical morning. Branch escitalopra 0 Yes [id number] 20mg Take 2 [facility] m oxalate 7-29 tablets by ity of 10 mg 00:00: mouth in [place] tablet 00 the Medical morning. Branch escitalopra 0 Yes [id number] 20mg Take 2 [facility] m oxalate 7-29 tablets by ity of 10 mg 00:00: mouth in [place] tablet 00 the Medical morning. Branch escitalopra 0 Yes [id number] 20mg Take 2 [facility] m oxalate 7-29 tablets by ity of 10 mg 00:00: mouth in [place] tablet 00 the Medical morning. Branch escitalopra 0 Yes [id number] 20mg Take 2 [facility] m oxalate 7-29 tablets by ity of 10 mg 00:00: mouth in [place] tablet 00 the Medical morning. Branch escitalopra 0 Yes [id number] 20mg Take 2 [facility] m oxalate 7-29 tablets by ity of 10 mg 00:00: mouth in [place] tablet 00 the Medical morning. Branch escitalopra 2022-0 Yes [id number] 20mg Take 2 [facility] m oxalate 7-29 tablets by ity of 10 mg 00:00: mouth in [place] tablet 00 the Medical morning. Branch escitalopra 2021-0 Yes [id number] 20mg Take 2 [facility] m oxalate 7-29 tablets by ity of 10 mg 00:00: mouth in [place] tablet 00 the Medical morning. Branch escitalopra 2021-0 2022- No [id number] 20mg Take 2 [facility] m oxalate 7-29 11-02 tablets by ity of 10 mg 00:00: 00:00 mouth in [place] tablet 00 :00 the Medical morning. Branch tiZANidine 2021-0 Yes [id number] 4mg Take 1 U nivers 4 mg tablet 7-12 tablet by ity of 00:00: mouth 3 00 (three) Medical times Branch daily as needed for Pain (scale 4-6). clotrimazol 2021-0 Yes [id number] Apply to [facility] e-betametha 7-12 area(s) 2 ity of sone 00:00: (two) [place] (LOTRISONE) 00 times Medical cream daily. Branch tiZANidine 2021-0 Yes [id number] 4mg Take 1 U nivers 4 mg tablet 7-12 tablet by ity of 00:00: mouth 3 00 (three) Medical times Branch daily as needed for Pain (scale 4-6). clotrimazol 2021-0 Yes [id number] Apply to [facility] e-betametha 7-12 area(s) 2 ity of sone 00:00: (two) [place] (LOTRISONE) 00 times Medical cream daily. Branch tiZANidine 2021-0 Yes [id number] 4mg Take 1 U nivers 4 mg tablet 7-12 tablet by ity of 00:00: mouth 3 [place] 00 (three) Medical times Branch daily as needed for Pain (scale 4-6). clotrimazol 2021-0 Yes [id number] Apply to [facility] e-betametha 7-12 area(s) 2 ity of sone 00:00: (two) [place] (LOTRISONE) 00 times Medical cream daily. Branch tiZANidine 2021-0 Yes [id number] 4mg Take 1 U nivers 4 mg tablet 7-12 tablet by ity of 00:00: mouth 3 [place] 00 (three) Medical times Branch daily as needed for Pain (scale 4-6). clotrimazol 2022-0 Yes [id number] Apply to [facility] e-betametha 7-12 area(s) 2 ity of sone 00:00: (two) [place] (LOTRISONE) 00 times Medical cream daily. Branch tiZANidine 2022-0 Yes [id number] 4mg Take 1 U nivers 4 mg tablet 7-12 tablet by ity of 00:00: mouth 3 [place] 00 (three) Medical times Branch daily as needed for Pain (scale 4-6). clotrimazol 2022-0 Yes [id number] Apply to [facility] e-betametha 7-12 area(s) 2 ity of sone 00:00: (two) [place] (LOTRISONE) 00 times Medical cream daily. Branch tiZANidine 2022-0 Yes [id number] 4mg Take 1 U nivers 4 mg tablet 7-12 tablet by ity of 00:00: mouth 3 00 (three) Medical times Branch daily as needed for Pain (scale 4-6). clotrimazol 2022-0 Yes [id number] Apply to [facility] e-betametha 7-12 area(s) 2 ity of sone 00:00: (two) [place] (LOTRISONE) 00 times Medical cream daily. Branch tiZANidine 2022-0 Yes [id number] 4mg Take 1 U nivers 4 mg tablet 7-12 tablet by ity of 00:00: mouth 3 00 (three) Medical times Branch daily as needed for Pain (scale 4-6). clotrimazol 2022-0 Yes [id number] Apply to [facility] e-betametha 7-12 area(s) 2 ity of sone 00:00: (two) [place] (LOTRISONE) 00 times Medical cream daily. Branch tiZANidine 2022-0 Yes [id number] 4mg Take 1 U nivers 4 mg tablet 7-12 tablet by ity of 00:00: mouth 3 [place] 00 (three) Medical times Branch daily as needed for Pain (scale 4-6). clotrimazol 2022-0 Yes [id number] Apply to [facility] e-betametha 7-12 area(s) 2 ity of sone 00:00: (two) [place] (LOTRISONE) 00 times Medical cream daily. Branch tiZANidine 2022-0 Yes [id number] 4mg Take 1 U nivers 4 mg tablet 7-12 tablet by ity of 00:00: mouth 3 [place] 00 (three) Medical times Branch daily as needed for Pain (scale 4-6). clotrimazol 2022-0 Yes [id number] Apply to [facility] e-betametha 7-12 area(s) 2 ity of sone 00:00: (two) [place] (LOTRISONE) 00 times Medical cream daily. Branch tiZANidine 2022-0 Yes [id number] 4mg Take 1 U nivers 4 mg tablet 7-12 tablet by ity of 00:00: mouth 3 00 (three) Medical times Branch daily as needed for Pain (scale 4-6). clotrimazol 2022-0 Yes [id number] Apply to [facility] e-betametha 7-12 area(s) 2 ity of sone 00:00: (two) [place] (LOTRISONE) 00 times Medical cream daily. Branch tiZANidine 2022-0 Yes [id number] 4mg Take 1 U nivers 4 mg tablet 7-12 tablet by ity of 00:00: mouth 3 00 (three) Medical times Branch daily as needed for Pain (scale 4-6). clotrimazol 2022-0 Yes [id number] Apply to [facility] e-betametha 7-12 area(s) 2 ity of sone 00:00: (two) [place] (LOTRISONE) 00 times Medical cream daily. Branch tiZANidine 2022-0 Yes [id number] 4mg Take 1 U nivers 4 mg tablet 7-12 tablet by ity of 00:00: mouth 3 00 (three) Medical times Branch daily as needed for Pain (scale 4-6). clotrimazol 2022-0 Yes [id number] Apply to [facility] e-betametha 7-12 area(s) 2 ity of sone 00:00: (two) [place] (LOTRISONE) 00 times Medical cream daily. Branch tiZANidine 2022-0 Yes [id number] 4mg Take 1 U nivers 4 mg tablet 7-12 tablet by ity of 00:00: mouth 3 [place] 00 (three) Medical times Branch daily as needed for Pain (scale 4-6). clotrimazol 2022-0 Yes [id number] Apply to [facility] e-betametha 7-12 area(s) 2 ity of sone 00:00: (two) [place] (LOTRISONE) 00 times Medical cream daily. Branch tiZANidine 2022-0 Yes [id number] 4mg Take 1 U nivers 4 mg tablet 7-12 tablet by ity of 00:00: mouth 3 [place] 00 (three) Medical times Branch daily as needed for Pain (scale 4-6). clotrimazol 2022-0 Yes [id number] Apply to [facility] e-betametha 7-12 area(s) 2 ity of sone 00:00: (two) [place] (LOTRISONE) 00 times Medical cream daily. Branch tiZANidine 2022-0 Yes [id number] 4mg Take 1 U nivers 4 mg tablet 7-12 tablet by ity of 00:00: mouth 3 00 (three) Medical times Branch daily as needed for Pain (scale 4-6). clotrimazol 2022-0 Yes [id number] Apply to [facility] e-betametha 7-12 area(s) 2 ity of sone 00:00: (two) [place] (LOTRISONE) 00 times Medical cream daily. Branch tiZANidine 2022-0 Yes [id number] 4mg Take 1 [facility] nivers 4 mg tablet 7-12 tablet by ity of 00:00: mouth 3 00 (three) Medical times Branch daily as needed for Pain (scale 4-6). clotrimazol 2022-0 Yes [id number] Apply to [facility] e-betametha 7-12 area(s) 2 ity of sone 00:00: (two) [place] (LOTRISONE) 00 times Medical cream daily. Branch tiZANidine 2022-0 Yes [id number] 4mg Take 1 U nivers 4 mg tablet 7-12 tablet by ity of 00:00: mouth 3 [place] 00 (three) Medical times Branch daily as needed for Pain (scale 4-6). clotrimazol 2022-0 Yes [id number] Apply to [facility] e-betametha 7-12 area(s) 2 ity of sone 00:00: (two) [place] (LOTRISONE) 00 times Medical cream daily. Branch tiZANidine 2022-0 Yes [id number] 4mg Take 1 [facility] nivers 4 mg tablet 7-12 tablet by ity of 00:00: mouth 3 00 (three) Medical times Branch daily as needed for Pain (scale 4-6). clotrimazol 2022-0 Yes [id number] Apply to [facility] e-betametha 7-12 area(s) 2 ity of sone 00:00: (two) [place] (LOTRISONE) 00 times Medical cream daily. Branch tiZANidine 2022-0 Yes [id number] 4mg Take 1 [facility] nivers 4 mg tablet 7-12 tablet by ity of 00:00: mouth 3 00 (three) Medical times Branch daily as needed for Pain (scale 4-6). clotrimazol 2022-0 Yes [id number] Apply to [facility] e-betametha 7-12 area(s) 2 ity of sone 00:00: (two) [place] (LOTRISONE) 00 times Medical cream daily. Branch tiZANidine 2022-0 Yes [id number] 4mg Take 1 U nivers 4 mg tablet 7-12 tablet by ity of 00:00: mouth 3 00 (three) Medical times Branch daily as needed for Pain (scale 4-6). clotrimazol 2022-0 Yes [id number] Apply to [facility] e-betametha 7-12 area(s) 2 ity of sone 00:00: (two) [place] (LOTRISONE) 00 times Medical cream daily. Branch tiZANidine 2022-0 Yes [id number] 4mg Take 1 [facility] nivers 4 mg tablet 7-12 tablet by ity of 00:00: mouth 3 00 (three) Medical times Branch daily as needed for Pain (scale 4-6). clotrimazol 2022-0 Yes [id number] Apply to [facility] e-betametha 7-12 area(s) 2 ity of sone 00:00: (two) [place] (LOTRISONE) 00 times Medical cream daily. Branch tiZANidine 2022-0 Yes [id number] 4mg Take 1 [facility] nivers 4 mg tablet 7-12 tablet by ity of 00:00: mouth 3 00 (three) Medical times Branch daily as needed for Pain (scale 4-6). clotrimazol 2022-0 Yes [id number] Apply to [facility] e-betametha 7-12 area(s) 2 ity of sone 00:00: (two) [place] (LOTRISONE) 00 times Medical cream daily. Branch tiZANidine 2022-0 Yes [id number] 4mg Take 1 [facility] nivers 4 mg tablet 7-12 tablet by ity of 00:00: mouth 3 00 (three) Medical times Branch daily as needed for Pain (scale 4-6). clotrimazol 2022-0 Yes [id number] Apply to [facility] e-betametha 7-12 area(s) 2 ity of sone 00:00: (two) [place] (LOTRISONE) 00 times Medical cream daily. Branch tiZANidine 2022-0 Yes [id number] 4mg Take 1 [facility] nivers 4 mg tablet 7-12 tablet by ity of 00:00: mouth 3 00 (three) Medical times Branch daily as needed for Pain (scale 4-6). clotrimazol 2022-0 Yes [id number] Apply to [facility] e-betametha 7-12 area(s) 2 ity of sone 00:00: (two) [place] (LOTRISONE) 00 times Medical cream daily. Branch tiZANidine 2022-0 Yes [id number] 4mg Take 1 [facility] nivers 4 mg tablet 7-12 tablet by ity of 00:00: mouth 3 00 (three) Medical times Branch daily as needed for Pain (scale 4-6). clotrimazol 2022-0 Yes [id number] Apply to [facility] e-betametha 7-12 area(s) 2 ity of sone 00:00: (two) [place] (LOTRISONE) 00 times Medical cream daily. Branch tiZANidine 2022-0 Yes [id number] 4mg Take 1 [facility] n[facility] 4 mg tablet 7-12 tablet by ity of 00:00: mouth 3 00 (three) Medical times Branch daily as needed for Pain (scale 4-6). clotrimazol 2022-0 Yes [id number] Apply to [facility] e-betametha 7-12 area(s) 2 ity of sone 00:00: (two) [place] (LOTRISONE) 00 times Medical cream daily. Branch tiZANidine 2022-0 Yes [id number] 4mg Take 1 [facility] n[facility] 4 mg tablet 7-12 tablet by ity of 00:00: mouth 3 00 (three) Medical times Branch daily as needed for Pain (scale 4-6). clotrimazol 2022-0 Yes [id number] Apply to [facility] e-betametha 7-12 area(s) 2 ity of sone 00:00: (two) [place] (LOTRISONE) 00 times Medical cream daily. Branch tiZANidine 2022-0 Yes [id number] 4mg Take 1 [facility] n[facility] 4 mg tablet 7-12 tablet by ity of 00:00: mouth 3 00 (three) Medical times Branch daily as needed for Pain (scale 4-6). clotrimazol 2022-0 Yes [id number] Apply to [facility] e-betametha 7-12 area(s) 2 ity of sone 00:00: (two) [place] (LOTRISONE) 00 times Medical cream daily. Branch tiZANidine 2022-0 Yes [id number] 4mg Take 1 [facility] n[facility] 4 mg tablet 7-12 tablet by ity of 00:00: mouth 3 00 (three) Medical times Branch daily as needed for Pain (scale 4-6). clotrimazol 2022-0 Yes [id number] Apply to [facility] e-betametha 7-12 area(s) 2 ity of sone 00:00: (two) [place] (LOTRISONE) 00 times Medical cream daily. Branch tiZANidine 2022-0 Yes [id number] 4mg Take 1 [facility] 4 mg tablet 7-12 tablet by ity of 00:00: mouth 3 00 (three) Medical times Branch daily as needed for Pain (scale 4-6). clotrimazol 2022-0 Yes [id number] Apply to [facility] e-betametha 7-12 area(s) 2 ity of sone 00:00: (two) [place] (LOTRISONE) 00 times Medical cream daily. Branch tiZANidine 2022-0 Yes [id number] 4mg Take 1 [facility] 4 mg tablet 7-12 tablet by ity of 00:00: mouth 3 [place] 00 (three) Medical times Branch daily as needed for Pain (scale 4-6). clotrimazol 2022-0 Yes [id number] Apply to [facility] e-betametha 7-12 area(s) 2 ity of sone 00:00: (two) [place] (LOTRISONE) 00 times Medical cream daily. Branch tiZANidine 2022-0 Yes [id number] 4mg Take 1 [facility] 4 mg tablet 7-12 tablet by ity of 00:00: mouth 3 00 (three) Medical times Branch daily as needed for Pain (scale 4-6). clotrimazol 2022-0 Yes [id number] Apply to [facility] e-betametha 7-12 area(s) 2 ity of sone 00:00: (two) [place] (LOTRISONE) 00 times Medical cream daily. Branch tiZANidine 2022-0 Yes [id number] 4mg Take 1 [facility] 4 mg tablet 7-12 tablet by ity of 00:00: mouth 3 00 (three) Medical times Branch daily as needed for Pain (scale 4-6). clotrimazol 2022-0 Yes [id number] Apply to [facility] e-betametha 7-12 area(s) 2 ity of sone 00:00: (two) [place] (LOTRISONE) 00 times Medical cream daily. Branch tiZANidine 2022-0 Yes [id number] 4mg Take 1 [facility] 4 mg tablet 7-12 tablet by ity of 00:00: mouth 3 00 (three) Medical times Branch daily as needed for Pain (scale 4-6). clotrimazol 2022-0 Yes [id number] Apply to [facility] e-betametha 7-12 area(s) 2 ity of sone 00:00: (two) [place] (LOTRISONE) 00 times Medical cream daily. Branch tiZANidine 2022-0 Yes [id number] 4mg Take 1 [facility] n[facility] 4 mg tablet 7-12 tablet by ity of 00:00: mouth 3 [place] 00 (three) Medical times Branch daily as needed for Pain (scale 4-6). clotrimazol 2022-0 Yes [id number] Apply to [facility] e-betametha 7-12 area(s) 2 ity of sone 00:00: (two) [place] (LOTRISONE) 00 times Medical cream daily. Branch tiZANidine 2022-0 Yes [id number] 4mg Take 1 [facility] 4 mg tablet 7-12 tablet by ity of 00:00: mouth 3 00 (three) Medical times Branch daily as needed for Pain (scale 4-6). clotrimazol 2022-0 Yes [id number] Apply to [facility] e-betametha 7-12 area(s) 2 ity of sone 00:00: (two) [place] (LOTRISONE) 00 times Medical cream daily. Branch tiZANidine 2022-0 Yes [id number] 4mg Take 1 [facility] 4 mg tablet 7-12 tablet by ity of 00:00: mouth 3 00 (three) Medical times Branch daily as needed for Pain (scale 4-6). clotrimazol 2022-0 Yes [id number] Apply to [facility] e-betametha 7-12 area(s) 2 ity of sone 00:00: (two) [place] (LOTRISONE) 00 times Medical cream daily. Branch tiZANidine 2022-0 Yes [id number] 4mg Take 1 [facility] 4 mg tablet 7-12 tablet by ity of 00:00: mouth 3 00 (three) Medical times Branch daily as needed for Pain (scale 4-6). clotrimazol 2022-0 Yes [id number] Apply to [facility] e-betametha 7-12 area(s) 2 ity of sone 00:00: (two) [place] (LOTRISONE) 00 times Medical cream daily. Branch tiZANidine 2022-0 Yes [id number] 4mg Take 1 [facility] 4 mg tablet 7-12 tablet by ity of 00:00: mouth 3 00 (three) Medical times Branch daily as needed for Pain (scale 4-6). clotrimazol 2022-0 Yes [id number] Apply to [facility] e-betametha 7-12 area(s) 2 ity of sone 00:00: (two) [place] (LOTRISONE) 00 times Medical cream daily. Branch tiZANidine 2022-0 Yes [id number] 4mg Take 1 [facility] 4 mg tablet 7-12 tablet by ity of 00:00: mouth 3 00 (three) Medical times Branch daily as needed for Pain (scale 4-6). clotrimazol 2022-0 Yes [id number] Apply to [facility] e-betametha 7-12 area(s) 2 ity of sone 00:00: (two) [place] (LOTRISONE) 00 times Medical cream daily. Branch tiZANidine 2022-0 Yes [id number] 4mg Take 1 [facility] 4 mg tablet 7-12 tablet by ity of 00:00: mouth 3 00 (three) Medical times Branch daily as needed for Pain (scale 4-6). clotrimazol 2022-0 Yes [id number] Apply to [facility] e-betametha 7-12 area(s) 2 ity of sone 00:00: (two) [place] (LOTRISONE) 00 times Medical cream daily. Branch tiZANidine 2022-0 Yes [id number] 4mg Take 1 [facility] n[facility] 4 mg tablet 7-12 tablet by ity of 00:00: mouth 3 00 (three) Medical times Branch daily as needed for Pain (scale 4-6). clotrimazol 2022-0 Yes [id number] Apply to [facility] e-betametha 7-12 area(s) 2 ity of sone 00:00: (two) [place] (LOTRISONE) 00 times Medical cream daily. Branch tiZANidine 2022-0 Yes [id number] 4mg Take 1 [facility] n[facility] 4 mg tablet 7-12 tablet by ity of 00:00: mouth 3 00 (three) Medical times Branch daily as needed for Pain (scale 4-6). clotrimazol 2022-0 Yes [id number] Apply to [facility] e-betametha 7-12 area(s) 2 ity of sone 00:00: (two) [place] (LOTRISONE) 00 times Medical cream daily. Branch tiZANidine 2022-0 Yes [id number] 4mg Take 1 [facility] n[facility] 4 mg tablet 7-12 tablet by ity of 00:00: mouth 3 [place] 00 (three) Medical times Branch daily as needed for Pain (scale 4-6). clotrimazol 2022-0 Yes [id number] Apply to [facility] e-betametha 7-12 area(s) 2 ity of sone 00:00: (two) [place] (LOTRISONE) 00 times Medical cream daily. Branch tiZANidine 2022-0 Yes [id number] 4mg Take 1 [facility] n[facility] 4 mg tablet 7-12 tablet by ity of 00:00: mouth 3 00 (three) Medical times Branch daily as needed for Pain (scale 4-6). clotrimazol 2022-0 Yes [id number] Apply to [facility] e-betametha 7-12 area(s) 2 ity of sone 00:00: (two) [place] (LOTRISONE) 00 times Medical cream daily. Branch tiZANidine 2022-0 Yes [id number] 4mg Take 1 [facility] n[facility] 4 mg tablet 7-12 tablet by ity of 00:00: mouth 3 00 (three) Medical times Branch daily as needed for Pain (scale 4-6). clotrimazol 2022-0 Yes [id number] Apply to [facility] e-betametha 7-12 area(s) 2 ity of sone 00:00: (two) [place] (LOTRISONE) 00 times Medical cream daily. Branch tiZANidine 2022-0 Yes [id number] 4mg Take 1 [facility] 4 mg tablet 7-12 tablet by ity of 00:00: mouth 3 00 (three) Medical times Branch daily as needed for Pain (scale 4-6). clotrimazol 2022-0 Yes [id number] Apply to [facility] e-betametha 7-12 area(s) 2 ity of sone 00:00: (two) [place] (LOTRISONE) 00 times Medical cream daily. Branch tiZANidine 2022-0 Yes [id number] 4mg Take 1 [facility] 4 mg tablet 7-12 tablet by ity of 00:00: mouth 3 00 (three) Medical times Branch daily as needed for Pain (scale 4-6). clotrimazol 2022-0 Yes [id number] Apply to [facility] e-betametha 7-12 area(s) 2 ity of sone 00:00: (two) [place] (LOTRISONE) 00 times Medical cream daily. Branch tiZANidine 2022-0 Yes [id number] 4mg Take 1 [facility] n[facility] 4 mg tablet 7-12 tablet by ity of 00:00: mouth 3 [place] 00 (three) Medical times Branch daily as needed for Pain (scale 4-6). clotrimazol 2022-0 Yes [id number] Apply to [facility] e-betametha 7-12 area(s) 2 ity of sone 00:00: (two) [place] (LOTRISONE) 00 times Medical cream daily. Branch clotrimazol 2022-0 Yes [id number] Apply to [facility] e-betametha 7-12 area(s) 2 ity of sone 00:00: (two) [place] (LOTRISONE) 00 times Medical cream daily. Branch clotrimazol 2022-0 Yes [id number] Apply to [facility] e-betametha 7-12 area(s) 2 ity of sone 00:00: (two) [place] (LOTRISONE) 00 times Medical cream daily. Branch clotrimazol 2022-0 Yes [id number] Apply to [facility] e-betametha 7-12 area(s) 2 ity of sone 00:00: (two) [place] (LOTRISONE) 00 times Medical cream daily. Branch clotrimazol 2022-0 Yes [id number] Apply to [facility] e-betametha 7-12 area(s) 2 ity of sone 00:00: (two) [place] (LOTRISONE) 00 times Medical cream daily. Branch clotrimazol 2022-0 Yes [id number] Apply to [facility] e-betametha 7-12 area(s) 2 ity of sone 00:00: (two) [place] (LOTRISONE) 00 times Medical cream daily. Branch clotrimazol 2022-0 Yes [id number] Apply to [facility] e-betametha 7-12 area(s) 2 ity of sone 00:00: (two) [place] (LOTRISONE) 00 times Medical cream daily. Branch clotrimazol 2022-0 Yes [id number] Apply to [facility] e-betametha 7-12 area(s) 2 ity of sone 00:00: (two) [place] (LOTRISONE) 00 times Medical cream daily. Branch clotrimazol 2022-0 Yes [id number] Apply to [facility] e-betametha 7-12 area(s) 2 ity of sone 00:00: (two) [place] (LOTRISONE) 00 times Medical cream daily. Branch clotrimazol 2021-0 Yes [id number] Apply to [facility] e-betametha 7-12 area(s) 2 ity of sone 00:00: (two) [place] (LOTRISONE) 00 times Medical cream daily. Branch clotrimazol 2021-0 Yes [id number] Apply to [facility] e-betametha 7-12 area(s) 2 ity of sone 00:00: (two) [place] (LOTRISONE) 00 times Medical cream daily. Branch clotrimazol 2021-0 Yes [id number] Apply to [facility] e-betametha 7-12 area(s) 2 ity of sone 00:00: (two) [place] (LOTRISONE) 00 times Medical cream daily. Branch tiZANidine 2021-0 2023- No [id number] 4mg Take 1 [facility] 4 mg tablet 7- 06-08 tablet by it y of 00:00: 00:00 mouth 3 00 :00 (three) Medical times Branch daily as needed for Pain (scale 4-6). tiZANidine 2021-0 3- No [id number] 4mg Take 1 [facility] 4 mg tablet 7- 06-08 tablet by it y of 00:00: 00:00 mouth 3 00 :00 (three) Medical times Branch daily as needed for Pain (scale 4-6). tiZANidine 2021-0 3- No [id number] 4mg Take 1 [facility] 4 mg tablet 7- 06-08 tablet by it y of 00:00: 00:00 mouth 3 00 :00 (three) Medical times Branch daily as needed for Pain (scale 4-6). lisinopriL 2022-0 Yes [id number] 20mg Take 1 [facility] 20 mg 7-08 tablet by ity of tablet 00:00: mouth [place] 00 daily. Medical Branch lisinopriL 2022-0 Yes [id number] 20mg Take 1 [facility] 20 mg 7-08 tablet by ity of tablet 00:00: mouth [place] 00 daily. Medical Branch lisinopriL 2022-0 Yes [id number] 20mg Take 1 [facility] 20 mg 7-08 tablet by ity of tablet 00:00: mouth [place] 00 daily. Medical Branch lisinopriL 2022-0 Yes [id number] 20mg Take 1 [facility] 20 mg 7-08 tablet by ity of tablet 00:00: mouth [place] 00 daily. Medical Branch lisinopriL 2021-0 Yes [id number] 20mg Take 1 [facility] n[facility] 20 mg 7-08 tablet by ity of tablet 00:00: mouth [place] 00 daily. Medical Branch lisinopriL 2021-0 Yes [id number] 20mg Take 1 [facility] n[facility] 20 mg 7-08 tablet by ity of tablet 00:00: mouth [place] 00 daily. Medical Branch lisinopriL 2021-0 Yes [id number] 20mg Take 1 [facility] 20 mg 7-08 tablet by ity of tablet 00:00: mouth [place] 00 daily. Medical Branch lisinopriL 2021-0 Yes [id number] 20mg Take 1 [facility] 20 mg 7-08 tablet by ity of tablet 00:00: mouth [place] 00 daily. Medical Branch lisinopriL 2021-0 Yes [id number] 20mg Take 1 [facility] nivers 20 mg 7-08 tablet by ity of tablet 00:00: mouth [place] 00 daily. Medical Branch lisinopriL 2021-0 Yes [id number] 20mg Take 1 [facility] nivers 20 mg 7-08 tablet by ity of tablet 00:00: mouth [place] 00 daily. Medical Branch lisinopriL 2021-0 Yes [id number] 20mg Take 1 [facility] nivers 20 mg 7-08 tablet by ity of tablet 00:00: mouth [place] 00 daily. Medical Branch lisinopriL 2021-0 Yes [id number] 20mg Take 1 [facility] n[facility] 20 mg 7-08 tablet by ity of tablet 00:00: mouth [place] 00 daily. Medical Branch lisinopriL 2021-0 Yes [id number] 20mg Take 1 [facility] 20 mg 7-08 tablet by ity of tablet 00:00: mouth [place] 00 daily. Medical Branch lisinopriL 2021-0 Yes [id number] 20mg Take 1 [facility] n[facility] 20 mg 7-08 tablet by ity of tablet 00:00: mouth [place] 00 daily. Medical Branch lisinopriL 2021-0 Yes [id number] 20mg Take 1 [facility] 20 mg 7-08 tablet by ity of tablet 00:00: mouth [place] 00 daily. Medical Branch lisinopriL 2021-0 Yes [id number] 20mg Take 1 [facility] n[facility] 20 mg 7-08 tablet by ity of tablet 00:00: mouth [place] 00 daily. Medical Branch lisinopriL 0 Yes [id number] 20mg Take 1 [facility] nivers 20 mg 7-08 tablet by ity of tablet 00:00: mouth [place] 00 daily. Medical Branch lisinopriL 0 Yes [id number] 20mg Take 1 [facility] nivers 20 mg 7-08 tablet by ity of tablet 00:00: mouth [place] 00 daily. Medical Branch lisinopriL 0 Yes [id number] 20mg Take 1 [facility] nivers 20 mg 7-08 tablet by ity of tablet 00:00: mouth [place] 00 daily. Medical Branch lisinopriL 2021- No [id number] 20mg Take 1 [facility] 20 mg 7-08 12-29 tablet by ity of tablet 00:00: 00:00 mouth [place] 00 :00 daily. Medical Branch lisinopriL 2021- No [id number] 20mg Take 1 [facility] 20 mg 7-08 12-29 tablet by ity of tablet 00:00: 00:00 mouth [place] 00 :00 daily. Medical Branch lisinopriL 2021- No [id number] 20mg Take 1 [facility] 20 mg 7-08 12-29 tablet by ity of tablet 00:00: 00:00 mouth [place] 00 :00 daily. Medical Branch NOVOLOG MIX Yes [id number] INJECT 20 [facility] 70-30 100 5-31 UNITS ity of unit/mL 00:00: UNDER THE [place] (70-30) 00 SKIN 2 Medical injection (TWO) Branch TIMES DAILY BEFORE BREAKFAST AND DINNER. NOVOLOG MIX Yes [id number] INJECT 20 [facility] 70-30 100 5-31 UNITS ity of unit/mL 00:00: UNDER THE [place] (70-30) 00 SKIN 2 Medical injection (TWO) Branch TIMES DAILY BEFORE BREAKFAST AND DINNER. NOVOLOG MIX Yes [id number] INJECT 20 [facility] 70-30 100 5-31 UNITS ity of unit/mL 00:00: UNDER THE [place] (70-30) 00 SKIN 2 Medical injection (TWO) Branch TIMES DAILY BEFORE BREAKFAST AND DINNER. NOVOLOG MIX 2- No [id number] INJECT 20 [facility] 70-30 100 5-31 09-14 UNITS ity of unit/mL 00:00: 00:00 UNDER THE [place] (70-30[place] 00 :00 SKIN 2 Medical injection (TWO) [...] mouth ity o f DOSE 10:43: daily. [place] ASPIRIN) 81 19 Medical mg EC Branch tablet aspirin 2022-0 Yes 81mg Take 81 mg Univ ers (ADULT LOW 5-16 by mouth ity o f DOSE 10:43: daily. [place] ASPIRIN) 81 19 Medical mg EC Branch tablet aspirin 2022-0 Yes 81mg Take 81 mg Univ ers (ADULT LOW 5-16 by mouth ity o f DOSE 10:43: daily. [place] ASPIRIN) 81 19 Medical mg EC Branch tablet aspirin 2022-0 Yes 81mg Take 81 mg Univ ers (ADULT LOW 5-16 by mouth ity o f DOSE 10:43: daily. [place] ASPIRIN) 81 19 Medical mg EC Branch [...] 19 Medical mg EC Branch tablet CANDESARTAN 2021-0 2- No [id number] 4mg TAKE 1 [facility] 4 mg tablet 10-23 TABLET BY it y of 00:00: 00:00 MOUTH [place] 00 :00 DAILY. Medical REPLACES Branch LISINOPRIL . CANDESARTAN 2021-0 2021- No [id number] 4mg TAKE 1 [facility] 4 mg tablet 10-23 TABLET BY it y of 00:00: 00:00 MOUTH [place] 00 :00 DAILY. Medical REPLACES Branch LISINOPRIL . metformin 2021- No [id number] 500mg Take 1 [facility] ER 500 mg 10-07-16 tablet by ity of 24 hr 00:00: 00:00 mouth 2 [place] tablet 00 :00 (two) Medical times Branch daily with meals. metformin 2021- No [id number] 500mg Take 1 [facility] ER 500 mg 4 05-16 tablet by ity of 24 hr 00:00: 00:00 mouth 2 [place] tablet 00 :00 (two) Medical times Branch daily with meals. fluticasone 2021- No [id number] 2{spray Use 2 [facility] propionate 09-08 } Sprays in ity of 50 00:00: 00:00 each [place] mcg/actuati 00 :00 nostril Medic al on nasal daily. Branch spray guaiFENesin 2021- No [id number] 100mg Take 5 mL [facility] 100 mg/5 mL 09-08 by mouth ity of solution 00:00: 00:00 every 4 [place] 00 :00 (four) Medical hours as Branch needed for Cough. fluticasone 2021- No [id number] 2{spray Use 2 [facility] propionate 09-08 } Sprays in ity of 50 00:00: 00:00 each [place] mcg/actuati 00 :00 nostril Medic al on nasal daily. Branch spray guaiFENesin 2021- No [id number] 100mg Take 5 mL [facility] 100 mg/5 mL 09-08 by mouth ity of solution 00:00: 00:00 every 4 [place] 00 :00 (four) Medical hours as Branch needed for Cough. CBD-KINGS Yes Apply to [facility] ers WITH 3-12 area(s). ity of LIDOCAINE 19:59: [place] TOPICAL 46 Medical Branch CBD-KINGS Yes Apply to [facility] ers WITH 3-12 area(s). ity of LIDOCAINE 19:59: [place] TOPICAL 46 Medical Branch CBD-KINGS Yes Apply to [facility] ers WITH 3-12 area(s). ity of LIDOCAINE 19:59: [place] TOPICAL 46 Medical Branch CBD-KINGS Yes Apply to [facility] ers WITH 3-12 area(s). ity of LIDOCAINE [...] WITH 3-12 area(s). ity of LIDOCAINE 19:59: [place] TOPICAL 46 Medical Branch CBD-KINGS Yes Apply to [facility] ers WITH 3-12 area(s). ity of LIDOCAINE 19:59: [place] TOPICAL 46 Medical Branch apixaban 2021- No [id number] 5mg Take 1 Un[facility] s (ELIQUIS) 5 08-30 tablet by it y of mg tablet 00:00: 00:00 mouth 2 [place] 00 :[place] (two) Medical times Branch daily for 180 days. Indication s: atrial fibrillati on apixaban 2021- No 1358 5mg Take 1 [facility] s (ELIQUIS) 5 08-30 tablet by it y of mg tablet 00:00: 00:00 mouth 2 [place] 00 :[place] (two) Medical times Branch daily for 180 days. Indication s: atrial fibrillati on FINASTERIDE 2020-06- No [id number] TAKE 1 [facility] 5 mg tablet 214 - TABLET BY it y of 00:00: 00:00 MOUTH [place] 00 :00 EVERY DAY Medical Branch FINASTERIDE 2020-06- No [id number] TAKE 1 [facility] 5 mg tablet 2-14 -04 TABLET BY it y of 00:00: 00:00 MOUTH [place] 00 :00 EVERY DAY Medical Branch PANTOPRAZOL 2020-06 Yes [id number] TAKE 1 [facility] E 40 mg EC 1-23 [id number] TABLET BY it y of tablet 00:00: [facility] 00 EVERY DAY Medical Branch PANTOPRAZOL 2020-06 Yes [id number] TAKE 1 [facility] E 40 mg EC 1-23 [id number] TABLET BY it y of tablet 00:00: MOUTH [place] 00 EVERY DAY Medical Branch PANTOPRAZOL 2020-06 Yes [id number] TAKE 1 [facility] E 40 mg EC 1-23 [id number] TABLET BY it y of tablet 00:00: [facility] 00 EVERY DAY Medical Branch PANTOPRAZOL 2020-06 Yes [id number] TAKE 1 [facility] E 40 mg EC 1-23 [id number] TABLET BY it y of tablet 00:00: MOUTH [place] 00 EVERY DAY Medical Branch PANTOPRAZOL 2020-06 Yes [id number] TAKE 1 [facility] E 40 mg EC 1-23 [id number] TABLET BY it y of tablet 00:00: MOUTH [place] 00 EVERY DAY Medical Branch PANTOPRAZOL 2020-06 Yes [id number] TAKE 1 [facility] E 40 mg EC 1-23 [id number] TABLET BY it y of tablet 00:00: [facility] EVERY DAY Medical Branch PANTOPRAZOL 2020-06 Yes [id number] TAKE 1 [facility] E 40 mg EC 1-23 [id number] TABLET BY it y of tablet 00:00: [facility] EVERY DAY Medical Branch PANTOPRAZOL 2020-06 Yes [id number] TAKE 1 [facility] E 40 mg EC 1-23 [id number] TABLET BY it y of tablet 00:00: [facility] EVERY DAY Medical Branch PANTOPRAZOL 2020-06 Yes [id number] TAKE 1 [facility] E 40 mg EC 1-23 [id number] TABLET BY it y of tablet 00:00: [facility] EVERY DAY Medical Branch PANTOPRAZOL 2020-06 Yes [id number] TAKE 1 [facility] E 40 mg EC 1-23 [id number] TABLET BY it y of tablet 00:00: [facility] EVERY DAY Medical Branch PANTOPRAZOL 2020-06 Yes [id number] TAKE 1 [facility] E 40 mg EC 1-23 [id number] TABLET BY it y of tablet 00:00: [facility] EVERY DAY Medical Branch PANTOPRAZOL 2020-06 Yes [id number] TAKE 1 [facility] E 40 mg EC 1-23 [id number] TABLET BY it y of tablet 00:00: [facility] EVERY DAY Medical Branch PANTOPRAZOL 2020-06 Yes [id number] TAKE 1 [facility] E 40 mg EC 1-23 [id number] TABLET BY it y of tablet 00:00: [facility] EVERY DAY Medical Branch PANTOPRAZOL 2020-06 Yes [id number] TAKE 1 [facility] E 40 mg EC 1-23 [id number] TABLET BY it y of tablet 00:00: [facility] EVERY DAY Medical Branch PANTOPRAZOL 2020-06 Yes [id number] TAKE 1 [facility] E 40 mg EC 1-23 [id number] TABLET BY it y of tablet 00:00: [facility] EVERY DAY Medical Branch PANTOPRAZOL 2020-06 Yes [id number] TAKE 1 [facility] E 40 mg EC 1-23 [id number] TABLET BY it y of tablet 00:00: [facility] EVERY DAY Medical Branch PANTOPRAZOL 2020-06 Yes [id number] TAKE 1 [facility] E 40 mg EC 1-23 [id number] TABLET BY it y of tablet 00:00: [facility] EVERY DAY Medical Branch PANTOPRAZOL 2020-06 Yes [id number] TAKE 1 [facility] E 40 mg EC 1-23 [id number] TABLET BY it y of tablet 00:00: MOUTH [place] 00 EVERY DAY Medical Branch PANTOPRAZOL 2020-06 Yes [id number] TAKE 1 [facility] E 40 mg EC 1-23 [id number] TABLET BY it y of tablet 00:00: MOUTH [place] EVERY DAY Medical Branch PANTOPRAZOL 2020-06 Yes [id number] TAKE 1 [facility] E 40 mg EC 1- [id number] TABLET BY it y of tablet 00:00: MOUTH [place] EVERY DAY Medical Branch PANTOPRAZOL 2020-06 Yes [id number] TAKE 1 [facility] E 40 mg EC 1- [id number] TABLET BY it y of tablet 00:00: [facility] EVERY DAY Medical Branch PANTOPRAZOL 2020-06 Yes [id number] TAKE 1 [facility] E 40 mg EC 1- [id number] TABLET BY it y of tablet 00:00: [facility] EVERY DAY Medical Branch PANTOPRAZOL 2020-06 Yes [id number] TAKE 1 [facility] E 40 mg EC 1- [id number] TABLET BY it y of tablet 00:00: [facility] 00 EVERY DAY Medical Branch PANTOPRAZOL 2020-06 Yes [id number] TAKE 1 [facility] E 40 mg EC 1-23 [id number] TABLET BY it y of tablet 00:00: [facility] 00 EVERY DAY Medical Branch PANTOPRAZOL 2020-06 Yes [id number] TAKE 1 [facility] E 40 mg EC 1-23 [id number] TABLET BY it y of tablet 00:00: [facility] EVERY DAY Medical Branch PANTOPRAZOL 2020-06 Yes [id number] TAKE 1 [facility] E 40 mg EC 1-23 [id number] TABLET BY it y of tablet 00:00: [facility] EVERY DAY Medical Branch PANTOPRAZOL 2020-06 Yes [id number] TAKE 1 [facility] E 40 mg EC 1-23 [id number] TABLET BY it y of tablet 00:00: [facility] EVERY DAY Medical Branch PANTOPRAZOL 2020-06 Yes [id number] TAKE 1 [facility] E 40 mg EC 1-23 [id number] TABLET BY it y of tablet 00:00: [facility] EVERY DAY Medical Branch PANTOPRAZOL 2020-06 Yes [id number] TAKE 1 [facility] E 40 mg EC 1-23 [id number] TABLET BY it y of tablet 00:00: [facility] EVERY DAY Medical Branch PANTOPRAZOL 2020-06 Yes [id number] TAKE 1 [facility] E 40 mg EC 1-23 [id number] TABLET BY it y of tablet 00:00: MOUTH [place] 00 EVERY DAY Medical Branch PANTOPRAZOL 2020-06 Yes [id number] TAKE 1 [facility] E 40 mg EC 1-23 [id number] TABLET BY it y of tablet 00:00: MOUTH [place] EVERY DAY Medical Branch PANTOPRAZOL 2020-06 Yes [id number] TAKE 1 [facility] E 40 mg EC 1-23 [id number] TABLET BY it y of tablet 00:00: [facility] EVERY DAY Medical Branch PANTOPRAZOL 2020-06 Yes [id number] TAKE 1 [facility] E 40 mg EC 1-23 [id number] TABLET BY it y of tablet 00:00: [facility] EVERY DAY Medical Branch PANTOPRAZOL 2020-06 Yes [id number] TAKE 1 [facility] E 40 mg EC 1-23 [id number] TABLET BY it y of tablet 00:00: [facility] EVERY DAY [facility] PANTOPRAZOL 2020-06 Yes [id number] TAKE 1 [facility] E 40 mg EC 1-23 [id number] TABLET BY it y of tablet 00:00: [facility] EVERY DAY [facility] PANTOPRAZOL 2020-06 Yes [id number] TAKE 1 [facility] E 40 mg EC 1-23 [id number] TABLET BY it y of tablet 00:00: [facility] 00 EVERY DAY Medical Branch PANTOPRAZOL 2020-06 Yes [id number] TAKE 1 [facility] E 40 mg EC 1-23 [id number] TABLET BY it y of tablet 00:00: [facility] 00 EVERY DAY Medical Branch PANTOPRAZOL 2020-06 Yes [id number] TAKE 1 [facility] E 40 mg EC 1-23 [id number] TABLET BY it y of tablet 00:00: [facility] EVERY DAY [facility] PANTOPRAZOL 2020-06 Yes [id number] TAKE 1 [facility] E 40 mg EC 1-23 [id number] TABLET BY it y of tablet 00:00: [facility] EVERY DAY [facility] PANTOPRAZOL 2020-06 Yes [id number] TAKE 1 [facility] E 40 mg EC 1-23 [id number] TABLET BY it y of tablet 00:00: [facility] EVERY DAY [facility] Branch PANTOPRAZOL 2020-06 Yes [id number] TAKE 1 [facility] E 40 mg EC 1-23 [id number] TABLET BY it y of tablet 00:00: [facility] EVERY DAY [facility] PANTOPRAZOL 2020-06 Yes [id number] TAKE 1 [facility] E 40 mg EC 1-23 [id number] TABLET BY it y of tablet 00:00: [facility] [place] 00 EVERY DAY Medical Branch PANTOPRAZOL 2020-06 Yes [id number] TAKE 1 [facility] E 40 mg EC 1-23 [id number] TABLET BY it y of tablet 00:00: [facility]OU[facility] [place] EVERY DAY [facility] Branch PANTOPRAZOL 2020-06 Yes [id number] TAKE 1 [facility] E 40 mg EC 1-23 [id number] TABLET BY it y of tablet 00:00: [facility] EVERY DAY [facility] PANTOPRAZOL 2020-06 Yes [id number] TAKE 1 [facility] E 40 mg EC 1-23 [id number] TABLET BY it y of tablet 00:00: MOUTH [place] EVERY DAY Medical Branch PANTOPRAZOL 2020-06 Yes [id number] TAKE 1 [facility] E 40 mg EC 1-23 [id number] TABLET BY it y of tablet 00:00: [facility] EVERY DAY [facility] Branch PANTOPRAZOL 2020-06 Yes [id number] TAKE 1 [facility] E 40 mg EC 1-23 [id number] TABLET BY it y of tablet 00:00: [facility] EVERY DAY [facility] PANTOPRAZOL 2020-06 Yes [id number] TAKE 1 [facility] E 40 mg EC 1-23 [id number] TABLET BY it y of tablet 00:00: [facility] EVERY DAY [facility] PANTOPRAZOL 2020-06 Yes [id number] TAKE 1 [facility] E 40 mg EC 1-23 [id number] TABLET BY it y of tablet 00:00: [facility] EVERY DAY [facility] PANTOPRAZOL 2020-06 Yes [id number] TAKE 1 [facility] E 40 mg EC 1-23 [id number] TABLET BY it y of tablet 00:00: [facility] EVERY DAY [facility] PANTOPRAZOL 2020-06 Yes [id number] TAKE 1 [facility] E 40 mg EC 1-23 [id number] TABLET BY it y of tablet 00:00: [facility] EVERY DAY [facility] Branch PANTOPRAZOL 2020-06 Yes [id number] TAKE 1 [facility] E 40 mg EC 1-23 [id number] TABLET BY it y of tablet 00:00: [facility] EVERY DAY [facility] Branch PANTOPRAZOL 2020-06 Yes [id number] TAKE 1 [facility] E 40 mg EC 1-23 [id number] TABLET BY it y of tablet 00:00: [facility] EVERY DAY [facility] PANTOPRAZOL 2020-06 Yes [id number] TAKE 1 [facility] E 40 mg EC 1-23 [id number] TABLET BY it y of tablet 00:00: MOUTH [place] 00 EVERY DAY Medical Branch PANTOPRAZOL 2020-06 Yes [id number] TAKE 1 [facility] E 40 mg EC 1-23 [id number] TABLET BY it y of tablet 00:00: MOUTH [place] 00 EVERY DAY Medical Branch PANTOPRAZOL 2020-06 Yes [id number] TAKE 1 [facility] E 40 mg EC 1-23 [id number] TABLET BY it y of tablet 00:00: MOUTH [place] EVERY DAY [facility] Branch PANTOPRAZOL 2020-06 Yes [id number] TAKE 1 [facility] E 40 mg EC 1-23 [id number] TABLET BY it y of tablet 00:00: MOUTH [place] 00 EVERY DAY Medical Branch PANTOPRAZOL 2020-06 Yes [id number] TAKE 1 [facility] E 40 mg EC 1-23 [id number] TABLET BY it y of tablet 00:00: MOUTH [place] 00 EVERY DAY Medical Branch PANTOPRAZOL 2020-06 Yes [id number] TAKE 1 [facility] E 40 mg EC 1-23 [id number] TABLET BY it y of tablet 00:00: MOUTH [place] EVERY DAY [facility] PANTOPRAZOL 2020-06 Yes [id number] TAKE 1 [facility] E 40 mg EC 1-23 [id number] TABLET BY it y of tablet 00:00: MOUTH [place] 00 EVERY DAY [facility] PANTOPRAZOL 2020-06 Yes [id number] TAKE 1 [facility] E 40 mg EC 1-23 [id number] TABLET BY it y of tablet 00:00: MOUTH [place] 00 EVERY DAY Medical Branch PANTOPRAZOL 2020-06 Yes [id number] TAKE 1 [facility] E 40 mg EC 1-23 [id number] TABLET BY it y of tablet 00:00: MOUTH [place] 00 EVERY DAY Medical Branch escitalopra 2020-06- No [id number] 10mg Take 1 [facility] m oxalate 07-05 tablet by ity of 10 mg 00:00: 00:00 mouth [place] tablet 00 :00 daily. Medical Branch escitalopra 2020-06- No [id number] 10mg Take 1 [facility] m oxalate 07-05 tablet by ity of 10 mg 00:00: 00:00 mouth [place] tablet 00 :00 daily. Medical Branch Insulin Yes [id number] Use as [facility] [place], 9-20 directed ity of Disposable, 00:00: twice [place] (PEN 00 daily to Medical NEEDLE) 32 inject Branch gauge x insulin; 5/32" Ndle ICD-10 E11.65 Insulin 2020-0 Yes [id number] Use as [facility] [place], 9-20 directed ity of Disposable, 00:00: twice [place] (PEN 00 daily to Medical NEEDLE) 32 inject Branch gauge x insulin; 5/32" Ndle ICD-10 E11.65 Insulin 0 Yes [id number] Use as [facility] [place], 9-20 directed ity of Disposable, 00:00: twice [place] (PEN 00 daily to Medical NEEDLE) 32 inject Branch gauge x insulin; 5/32" Ndle ICD-10 E11.65 Insulin 0 Yes [id number] Use as [facility] [place], 9-20 directed ity of Disposable, 00:00: twice [place] (PEN 00 daily to Medical NEEDLE) 32 inject Branch gauge x insulin; 5/32" Ndle ICD-10 E11.65 Insulin 0 Yes [id number] Use as [facility] [place], 9-20 directed ity of Disposable, 00:00: twice [place] (PEN 00 daily to Medical NEEDLE) 32 inject Branch gauge x insulin; 5/32" Ndle ICD-10 E11.65 Insulin 0 Yes [id number] Use as [facility] [place], 9-20 directed ity of Disposable, 00:00: twice [place] (PEN 00 daily to Medical NEEDLE) 32 inject Branch gauge x insulin; 5/32" Ndle ICD-10 E11.65 Insulin 0 Yes [id number] Use as [facility] [place], 9-20 directed ity of Disposable, 00:00: twice [place] (PEN 00 daily to Medical NEEDLE) 32 inject Branch gauge x insulin; 5/32" Ndle ICD-10 E11.65 Insulin 2020-0 Yes [id number] Use as [facility] [place], 9-20 directed ity of Disposable, 00:00: twice [place] (PEN 00 daily to Medical NEEDLE) 32 inject Branch gauge x insulin; 5/32" Ndle ICD-10 E11.65 Insulin 0 Yes [id number] Use as [facility] [place], 9-20 directed ity of Disposable, 00:00: twice [place] (PEN 00 daily to Medical NEEDLE) 32 inject Branch gauge x insulin; 5/32" Ndle ICD-10 E11.65 Insulin 0 Yes [id number] Use as [facility] [place], 9-20 directed ity of Disposable, 00:00: twice [place] (PEN 00 daily to Medical NEEDLE) 32 inject Branch gauge x insulin; 5/32" Ndle ICD-10 E11.65 Insulin 2020-0 Yes [id number] Use as [facility] [place], 9-20 directed ity of Disposable, 00:00: twice [place] (PEN 00 daily to Medical NEEDLE) 32 inject Branch gauge x insulin; 5/32" Ndle ICD-10 E11.65 Insulin 0 Yes [id number] Use as [facility] [place], 9-20 directed ity of Disposable, 00:00: twice [place] (PEN 00 daily to Medical NEEDLE) 32 inject Branch gauge x insulin; 5/32" Ndle ICD-10 E11.65 Insulin 0 Yes [id number] Use as [facility] [place], 9-20 directed ity of Disposable, 00:00: twice [place] (PEN 00 daily to Medical NEEDLE) 32 inject Branch gauge x insulin; 5/32" Ndle ICD-10 E11.65 Insulin 0 Yes [id number] Use as [facility] [place], 9-20 directed ity of Disposable, 00:00: twice [place] (PEN 00 daily to Medical NEEDLE) 32 inject Branch gauge x insulin; 5/32" Ndle ICD-10 E11.65 Insulin 0 Yes [id number] Use as [facility] [place], 9-20 directed ity of Disposable, 00:00: twice [place] (PEN 00 daily to Medical NEEDLE) 32 inject Branch gauge x insulin; 5/32" Ndle ICD-10 E11.65 Insulin 2020-0 Yes [id number] Use as [facility] [place], 9-20 directed ity of Disposable, 00:00: twice [place] (PEN 00 daily to Medical NEEDLE) 32 inject Branch gauge x insulin; 5/32" Ndle ICD-10 E11.65 Insulin 2020-0 Yes [id number] Use as [facility] [place], 9-20 directed ity of Disposable, 00:00: twice [place] (PEN 00 daily to Medical NEEDLE) 32 inject Branch gauge x insulin; 5/32" Ndle ICD-10 E11.65 Insulin 2020-0 Yes [id number] Use as [facility] [place], 9-20 directed ity of Disposable, 00:00: twice [place] (PEN 00 daily to Medical NEEDLE) 32 inject Branch gauge x insulin; 5/32" Ndle ICD-10 E11.65 Insulin 2020-0 Yes [id number] Use as [facility] [place], 9-20 directed ity of Disposable, 00:00: twice [place] (PEN 00 daily to Medical NEEDLE) 32 inject Branch gauge x insulin; 5/" Ndle ICD-10 E11.65 Insulin 2020-0 Yes [id number] Use as [facility] [place], 9-20 directed ity of Disposable, 00:00: twice [place] (PEN 00 daily to Medical NEEDLE) 32 inject Branch gauge x insulin; 5/32" Ndle ICD-10 E11.65 Insulin 2020-0 Yes [id number] Use as [facility] [place], 9-20 directed ity of Disposable, 00:00: twice [place] (PEN 00 daily to Medical NEEDLE) 32 inject Branch gauge x insulin; 5/" Ndle ICD-10 E11.65 Insulin 2020-0 Yes [id number] Use as [facility] [place], 9-20 directed ity of Disposable, 00:00: twice [place] (PEN 00 daily to Medical NEEDLE) 32 inject Branch gauge x insulin; " Ndle ICD-10 E11.65 Insulin 2020-0 Yes [id number] Use as [facility] [place], 9-20 directed ity of Disposable, 00:00: twice [place] (PEN 00 daily to Medical NEEDLE) 32 inject Branch gauge x insulin; 5/" Ndle ICD-10 E11.65 Insulin 2020-0 Yes [id number] Use as [facility] [place], 9-20 directed ity of Disposable, 00:00: twice [place] (PEN 00 daily to Medical NEEDLE) 32 inject Branch gauge x insulin; 5/" Ndle ICD-10 E11.65 Insulin 2020-0 Yes [id number] Use as [facility] [place], 9-20 directed ity of Disposable, 00:00: twice [place] (PEN 00 daily to Medical NEEDLE) 32 inject Branch gauge x insulin; 5/32" Ndle ICD-10 E11.65 Insulin 2020-0 Yes [id number] Use as [facility] [place], 9-20 directed ity of Disposable, 00:00: twice [place] (PEN 00 daily to Medical NEEDLE) 32 inject Branch gauge x insulin; 5/32" Ndle ICD-10 E11.65 Insulin 2020-0 Yes [id number] Use as [facility] [place], 9-20 directed ity of Disposable, 00:00: twice [place] (PEN 00 daily to Medical NEEDLE) 32 inject Branch gauge x insulin; 5/32" Ndle ICD-10 E11.65 Insulin 2020-0 Yes [id number] Use as [facility] [place], 9-20 directed ity of Disposable, 00:00: twice [place] (PEN 00 daily to Medical NEEDLE) 32 inject Branch gauge x insulin; " Ndle ICD-10 E11.65 Insulin Yes [id number] Use as [facility] [place], 03-10 directed ity of Disposable, 00:00: twice [place] (PEN 00 daily to Medical NEEDLE) 32 inject Branch gauge x insulin; " Ndle ICD-10 E11.65 Insulin Yes [id number] Use as [facility] [place], 03-10 directed ity of Disposable, 00:00: twice [place] (PEN 00 daily to Medical NEEDLE) 32 inject Branch gauge x insulin; " Ndle ICD-10 E11.65 Insulin Yes [id number] Use as [facility] [place], 03-10 directed ity of Disposable, 00:00: twice [place] (PEN 00 daily to Medical NEEDLE) 32 inject Branch gauge x insulin; " Ndle ICD-10 E11.65 Insulin Yes [id number] Use as [facility] [place], 03-10 directed ity of Disposable, 00:00: twice [place] (PEN 00 daily to Medical NEEDLE) 32 inject Branch gauge x insulin; 5" Ndle ICD-10 E11.65 Insulin 2022- No [id number] Use as [facility] vers [place], 03-10 directed ity of Disposable, 00:00: 00:00 [place] (PEN 00 :00 daily to Medical NEEDLE) 32 inject Branch gauge x insulin; " Ndle ICD-10 E11.65 Insulin 2022- No [id number] Use as [facility] [place], 03-10 directed ity of Disposable, 00:00: 00:00 [place] (PEN 00 :00 daily to Medical NEEDLE) 32 inject Branch gauge x insulin; 5" Ndle ICD-10 E11.65 blood sugar 2021- No [id number] USE TWICE [facility] diagnostic 03-10-04 DAILY FOR ity of (ASCENSIA 00:00: 00:00 BLOOD [place] MICROFILL) 00 :00 GLUCOSE Medica l strip MONITORING Branch FOR ICD E11.9 blood sugar 2021- No [id number] USE TWICE [facility] diagnostic 03-10-04 DAILY FOR ity of (ASCENSIA 00:00: 00:00 BLOOD [place] MICROFILL) 00 :00 GLUCOSE Medica l strip MONITORING Branch FOR ICD E11.9 insulin 2021- No [id number] 20U inject 20 [facility] aspart 9-20 05-31 Units ity of protamine-i 00:00: 00:00 under the [place] nsulin 00 :00 skin 2 Medical aspart (two) Branch (NOVOLOG times MIX 70-30 daily U-100 before INSULN) 100 breakfast unit/mL and (70-30) dinner. injection insulin 2021- No [id number] 20U inject 20 [facility] aspart 9-20 05-31 Units ity of protamine-i 00:00: 00:00 under the [place] nsulin 00 :00 skin 2 Medical aspart (two) Branch (NOVOLOG times MIX 70-30 daily U-100 before INSULN) 100 breakfast unit/mL and (70-30) dinner. injection Immunizations Ordered Filled Immunization Date Status Comments [facility] e Immunization Name Name Influenza High Dose 2020-04-19 Completed [facility] [place] 00:00:00 [facility] Influenza High Dose 2020-04-19 Completed Un[facility] of [facility] 00:00:00 [facility] Influenza High Dose 2020-04-19 Completed Unive rsity of [facility] 00:00:00 [facility] Influenza High Dose 2020-04-19 Completed Unive rsity of [facility] 00:00:00 [facility] Influenza High Dose 2020-04-19 Completed Unive rsity of [facility] 00:00:00 [facility] Influenza High Dose 2020-04-19 Completed Unive rsity of [facility] 00:00:00 [facility] Influenza High Dose 2020-04-19 Completed Unive rsity of [facility] 00:00:00 [facility] Influenza High Dose 2020-04-19 Completed Unive rsity of [facility] 00:00:00 [facility] Influenza High Dose 2020-04-19 Completed Unive rsity of Quad 00:00:00 [facility] Influenza High Dose 2020-04-19 Completed Unive rsity of Quad 00:00:00 [facility] Influenza High Dose 2020-04-19 Completed Unive rsity of [facility] 00:00:00 [facility] Influenza High Dose 2020-04-19 Completed Unive rsity of [facility] 00:00:00 [facility] Influenza High Dose 2020-04-19 Completed Unive rsity of [facility] 00:00:00 [place] [facility] Influenza High Dose 2020-04-19 Completed Unive rsity of [facility] 00:00:00 [place] [facility] Influenza High Dose 2020-04-19 Completed Unive rsity of [facility] 00:00:00 [place] [facility] Influenza High Dose 2020-04-19 Completed Unive rsity of [facility] 00:00:00 [place] [facility] Influenza High Dose 2020-04-19 Completed Unive rsity of [place] 00:00:00 [place] [facility] Influenza High Dose 2020-04-19 Completed Unive rsity of [facility] 00:00:00 [place] [facility] Influenza High Dose 2020-04-19 Completed Unive rsity of [facility] 00:00:[address] [facility] Branch Influenza High Dose 2020-04-19 Completed Unive rsity of [facility] 00:00:00 [place] [facility] Influenza High Dose 2020-04-19 Completed Unive rsity of [place] 00:00:[address] [facility] Branch Influenza High Dose 2020-04-19 Completed Unive rsity of [place] 00:00:[address] [facility] Influenza High Dose 2020-04-19 Completed Unive rsity of [place] 00:00:[address] [facility] Influenza High Dose 2020-04-19 Completed Unive rsity of [place] 00:00:[address] [facility] Influenza High Dose 2020-04-19 Completed Unive rsity of [place] 00:00:[address] [facility] Influenza High Dose 2020-04-19 Completed Unive rsity of [place] 00:00:[address] [facility] Influenza High Dose 2020-04-19 Completed Unive rsity of [place] 00:00:[address] [facility] Influenza High Dose 2020-04-19 Completed Unive rsity of [place] 00:00:[address] [facility] Influenza High Dose 2020-04-19 Completed Unive rsity of [place] 00:00:[address] [facility] Influenza High Dose 2020-04-19 Completed Unive rsity of [place] 00:00:[address] [facility] Influenza High Dose 2020-04-19 Completed Unive rsity of [facility] 00:00:00 [place] [facility] Influenza High Dose 2020-04-19 Completed Unive rsity of [facility] 00:00:[address] [facility] Influenza High Dose 2020-04-19 Completed Unive rsity of [facility] 00:00:00 [place] [facility] Influenza High Dose 2020-04-19 Completed Unive rsity of Quad 00:00:00 [place] [facility] Influenza High Dose 2020-04-19 Completed Unive rsity of Quad 00:00:00 [place] [facility] Influenza High Dose 2020-04-19 Completed Unive rsity of Quad 00:00:00 [place] [facility] Influenza High Dose 2020-04-19 Completed Unive rsity of [facility] 00:00:00 [place] [facility] Influenza High Dose 2020-04-19 Completed Unive rsity of [facility] 00:00:00 [place] [facility] Influenza High Dose 2020-04-19 Completed Unive rsity of [facility] 00:00:00 [place] [facility] Influenza High Dose 2020-04-19 Completed Unive rsity of [facility] 00:00:00 [place] [facility] Influenza High Dose 2020-04-19 Completed Unive rsity of [facility] 00:00:00 [place] [facility] Influenza High Dose 2020-04-19 Completed Unive rsity of Quad 00:00:00 [place] [facility] Influenza High Dose 2020-04-19 Completed Unive rsity of [facility] 00:00:[address] [facility] Influenza High Dose 2020-04-19 Completed Unive rsity of [facility] 00:00:[address] [facility] Influenza High Dose 2020-04-19 Completed Unive rsity of [facility] 00:00:[address] [facility] Influenza High Dose 2020-04-19 Completed Unive rsity of [facility] 00:00:[address] [facility] Influenza High Dose 2020-04-19 Completed Unive rsity of [facility] 00:00:[address] [facility] Influenza High Dose 2020-04-19 Completed Unive rsity of [facility] 00:00:[address] [facility] Influenza High Dose 2020-04-19 Completed Unive rsity of [facility] 00:00:[address] [facility] Influenza High Dose 2020-04-19 Completed Unive rsity of Quad 00:00:00 [place] [facility] Influenza High Dose 2020-04-19 Completed Unive rsity of Quad 00:00:00 [place] [facility] Influenza High Dose 2020-04-19 Completed Unive rsity of Quad 00:00:00 [place] [facility] Influenza High Dose 2020-04-19 Completed Unive rsity of Quad 00:00:00 [place] [facility] Influenza High Dose 2020-04-19 Completed Unive rsity of [facility] 00:00:[address] [facility] Influenza High Dose 2020-04-19 Completed Unive rsity of [facility] 00:00:[address] [facility] Influenza High Dose 2020-04-19 Completed Unive rsity of [facility] 00:00:00 [facility] Influenza High Dose 2020-04-19 Completed Unive rsity of Quad 00:00:00 [facility] Influenza High Dose 2020-04-19 Completed Unive rsity of Quad 00:00:00 [facility] Influenza High Dose 2020-04-19 Completed Unive rsity of [facility] 00:00:00 [facility] Influenza High Dose 2020-04-19 Completed Unive rsity of [facility] 00:00:00 [facility] Influenza High Dose 2020-04-19 Completed Unive rsity of Quad 00:00:00 [facility] Influenza High Dose 2020-04-19 Completed Unive rsity of Quad 00:00:00 [facility] Influenza High Dose 2019-04-11 Completed Unive rsity of 00:00:00 [facility] Influenza High Dose 2019-04-11 Completed Unive rsity of 00:00:00 [facility] Influenza High Dose 2019-04-11 Completed Unive rsity of 00:00:00 [facility] Influenza High Dose 2019-04-11 Completed Unive rsity of 00:00:00 [facility] Influenza High Dose 2019-04-11 Completed Unive rsity of 00:00:00 [facility] Influenza High Dose 2019-04-11 Completed Unive rsity of 00:00:00 [facility] Influenza High Dose 2019-04-11 Completed Unive rsity of 00:00:00 [facility] Influenza High Dose 2019-04-11 Completed Unive rsity of 00:00:00 [facility] Influenza High Dose 2019-04-11 Completed Unive rsity of 00:00:00 [facility] Influenza High Dose 2019-04-11 Completed Unive rsity of 00:00:00 [facility] Influenza High Dose 2019-04-11 Completed Unive rsity of 00:00:00 [facility] Influenza High Dose 2019-04-11 Completed Unive rsity of 00:00:00 [facility] Influenza High Dose 2019-04-11 Completed Unive rsity of 00:00:00 [facility] Influenza High Dose 2019-04-11 Completed Unive rsity of 00:00:00 [facility] Influenza High Dose 2019-04-11 Completed Unive rsity of 00:00:00 [facility] Influenza High Dose 2019-04-11 Completed Unive rsity of 00:00:00 [place] [facility] Influenza High Dose 2019-04-11 Completed Unive rsity of 00:00:00 [facility] Influenza High Dose 2019-04-11 Completed Unive rsity of 00:00:00 [facility] Influenza High Dose 2019-04-11 Completed Unive rsity of 00:00:00 [facility] Influenza High Dose 2019-04-11 Completed Unive rsity of 00:00:00 [facility] Influenza High Dose 2019-04-11 Completed Unive rsity of 00:00:00 [facility] Influenza High Dose 2019-04-11 Completed Unive rsity of 00:00:00 [facility] Influenza High Dose 2019-04-11 Completed Unive rsity of 00:00:00 [facility] Influenza High Dose 2019-04-11 Completed Unive rsity of 00:00:00 [facility] Influenza High Dose 2019-04-11 Completed Unive rsity of 00:00:00 [facility] Influenza High Dose 2019-04-11 Completed Unive rsity of 00:00:00 [facility] Influenza High Dose 2019-04-11 Completed Unive rsity of 00:00:00 [facility] Influenza High Dose 2019-04-11 Completed Unive rsity of 00:00:00 [facility] Influenza High Dose 2019-04-11 Completed Unive rsity of 00:00:00 [facility] Influenza High Dose 2019-04-11 Completed Unive rsity of 00:00:00 [facility] Influenza High Dose 2019-04-11 Completed Unive rsity of 00:00:00 [facility] Influenza High Dose 2019-04-11 Completed Unive rsity of 00:00:00 [facility] Influenza High Dose 2019-04-11 Completed Unive rsity of 00:00:00 [facility] Influenza High Dose 2019-04-11 Completed Unive rsity of 00:00:00 [facility] Influenza High Dose 2019-04-11 Completed Unive rsity of 00:00:00 [facility] Influenza High Dose 2019-04-11 Completed Unive rsity of 00:00:00 [facility] Influenza High Dose 2019-04-11 Completed Unive rsity of 00:00:00 [facility] Influenza High Dose 2019-04-11 Completed Unive rsity of 00:00:00 [facility] Influenza High Dose 2019-04-11 Completed Unive rsity of 00:00:00 [facility] Influenza High Dose 2019-04-11 Completed Unive rsity of 00:00:00 [facility] Influenza High Dose 2019-04-11 Completed Unive rsity of 00:00:00 [facility] Influenza High Dose 2019-04-11 Completed Unive rsity of 00:00:00 [facility] Influenza High Dose 2019-04-11 Completed Unive rsity of 00:00:00 [facility] Influenza High Dose 2019-04-11 Completed Unive rsity of 00:00:00 [facility] Influenza High Dose 2019-04-11 Completed Unive rsity of 00:00:00 [facility] Influenza High Dose 2019-04-11 Completed Unive rsity of 00:00:00 [facility] Influenza High Dose 2019-04-11 Completed Unive rsity of 00:00:00 [facility] Influenza High Dose 2019-04-11 Completed Unive rsity of 00:00:00 [facility] Influenza High Dose 2019-04-11 Completed [facility]ive rsity of 00:00:00 [facility] Influenza High Dose 2019-04-11 Completed Unive rsity of 00:00:00 [facility] Influenza High Dose 2019-04-11 Completed Unive rsity of 00:00:00 [facility] Influenza High Dose 2019-04-11 Completed Unive rsity of 00:00:00 [facility] Influenza High Dose 2019-04-11 Completed Unive rsity of 00:00:00 [facility] Influenza High Dose 2019-04-11 Completed Unive rsity of 00:00:00 [facility] Influenza High Dose 2019-04-11 Completed Unive rsity of 00:00:00 [facility] Influenza High Dose 2019-04-11 Completed Unive rsity of 00:00:00 [facility] Influenza High Dose 2019-04-11 Completed Unive rsity of 00:00:00 [facility] Influenza High Dose 2019-04-11 Completed Unive rsity of 00:00:00 [facility] Influenza High Dose 2019-04-11 Completed Unive rsity of 00:00:00 [facility] Influenza High Dose 2019-04-11 Completed Unive rsity of 00:00:00 [facility] Influenza High Dose 2019-04-11 Completed Unive rsity of 00:00:00 [facility] Influenza High Dose 2019-04-11 Completed Unive rsity of 00:00:00 [facility] Influenza High Dose 2018-03-01 Completed Unive rsity of 00:00:00 [facility] Influenza High Dose 2018-03-01 Completed Unive rsity of 00:00:00 [facility] Influenza High Dose 2018-03-01 Completed Unive rsity of 00:00:00 [facility] Influenza High Dose 2018-03-01 Completed Unive rsity of 00:00:00 [facility] Influenza High Dose 2018-03-01 Completed Unive rsity of 00:00:00 [facility] Influenza High Dose 2018-03-01 Completed Unive rsity of 00:00:00 [facility] Influenza High Dose 2018-03-01 Completed Unive rsity of 00:00:00 [facility] Influenza High Dose 2018-03-01 Completed Unive rsity of 00:00:00 [facility] Influenza High Dose 2018-03-01 Completed [facility]ive rsity of 00:00:00 [facility] Influenza High Dose 2018-03-01 Completed [facility]ive rsity of 00:00:00 [facility] Influenza High Dose 2018-03-01 Completed [facility]ive rsity of 00:00:00 [facility] Influenza High Dose 2018-03-01 Completed Unive rsity of 00:00:00 [facility] Influenza High Dose 2018-03-01 Completed Unive rsity of 00:00:00 [facility] Influenza High Dose 2018-03-01 Completed [facility]ive rsity of 00:00:00 [facility] Influenza High Dose 2018-03-01 Completed Unive rsity of 00:00:00 [facility] Influenza High Dose 2018-03-01 Completed [facility]ive rsity of 00:00:00 [facility] Influenza High Dose 2018-03-01 Completed [facility]ive rsity of 00:00:00 [facility] Influenza High Dose 2018-03-01 Completed [facility]ive rsity of 00:00:00 [facility] Influenza High Dose 2018-03-01 Completed [facility]ive rsity of 00:00:00 [facility] Influenza High Dose 2018-03-01 Completed [facility]ive rsity of 00:00:00 [facility] Influenza High Dose 2018-03-01 Completed [facility]ive rsity of 00:00:00 [facility] Influenza High Dose 2018-03-01 Completed [facility]ive rsity of 00:00:00 [facility] Influenza High Dose 2018-03-01 Completed [facility]ive rsity of 00:00:[address] [facility] Influenza High Dose 2018-03-01 Completed [facility]ive rsity of 00:00:[address] [facility] Influenza High Dose 2018-03-01 Completed [facility]ity of 00:00:00 [facility] Influenza High Dose 2018-03-01 Completed [facility]ive rsity of 00:00:00 [facility] Influenza High Dose 2018-03-01 Completed [facility]ive rsity of 00:00:00 [facility] Influenza High Dose 2018-03-01 Completed [facility]ive rsity of 00:00:00 [facility] Influenza High Dose 2018-03-01 Completed [facility]ive rsity of 00:00:00 [facility] Influenza High Dose 2018-03-01 Completed Unive rsity of 00:00:00 [facility] Influenza High Dose 2018-03-01 Completed [facility]ive rsity of 00:00:00 [facility] Influenza High Dose 2018-03-01 Completed [facility]ive rsity of 00:00:00 [facility] Influenza High Dose 2018-03-01 Completed Unive rsity of 00:00:00 [facility] Influenza High Dose 2018-03-01 Completed [facility]ive rsity of 00:00:00 [facility] Influenza High Dose 2018-03-01 Completed [facility]ive rsity of 00:00:00 [facility] Influenza High Dose 2018-03-01 Completed [facility]ive rsity of 00:00:00 [facility] Influenza High Dose 2018-03-01 Completed [facility]ive rsity of 00:00:00 [facility] Influenza High Dose 2018-03-01 Completed [facility]ive rsity of 00:00:00 [facility] Influenza High Dose 2018-03-01 Completed [facility]ive rsity of 00:00:[address] [facility] Influenza High Dose 2018-03-01 Completed [facility]ive rsity of 00:00:00 [facility] Influenza High Dose 2018-03-01 Completed Unive rsity of 00:00:00 [facility] Influenza High Dose 2018-03-01 Completed [facility]ive rsity of 00:00:00 [facility] Influenza High Dose 2018-03-01 Completed [facility]ive rsity of 00:00:00 [facility] Influenza High Dose 2018-03-01 Completed [facility]ive rsity of 00:00:00 [facility] Influenza High Dose 2018-03-01 Completed [facility]ive rsity of 00:00:00 [facility] Influenza High Dose 2018-03-01 Completed [facility]ive rsity of 00:00:00 [facility] Influenza High Dose 2018-03-01 Completed [facility]ive rsity of 00:00:00 [facility] Influenza High Dose 2018-03-01 Completed [facility]ive rsity of 00:00:00 [facility] Influenza High Dose 2018-03-01 Completed [facility]ive rsity of 00:00:00 [facility] Influenza High Dose 2018-03-01 Completed [facility]ive rsity of 00:00:00 [facility] Influenza High Dose 2018-03-01 Completed [facility]ive [facility]ity of 00:00:00 [facility] Influenza High Dose 2018-03-01 Completed [facility]ive rsity of 00:00:00 [facility] Influenza High Dose 2018-03-01 Completed [facility]ive rsity of 00:00:00 [facility] Influenza High Dose 2018-03-01 Completed [facility]ive rsity of 00:00:00 [facility] Influenza High Dose 2018-03-01 Completed [facility]ive rsity of 00:00:00 [facility] Influenza High Dose 2018-03-01 Completed [facility]ive rsity of 00:00:00 [facility] Influenza High Dose 2018-03-01 Completed [facility]ive rsity of 00:00:00 [facility] Influenza High Dose 2018-03-01 Completed [facility]ive rsity of 00:00:00 [facility] Influenza High Dose 2018-03-01 Completed [facility]ive [facility]ity of 00:00:00 [facility] Influenza High Dose 2018-03-01 Completed [facility]ive [facility]ity of 00:00:00 [facility] Influenza High Dose 2018-03-01 Completed [facility]ive rsity of 00:00:00 [facility] Influenza High Dose 2018-03-01 Completed [facility]ive rsity of 00:00:00 [facility] Influenza Virus 2017-03-21 Completed Universit y of Vaccine 00:00:00 [facility] Influenza Virus 2017-03-21 Completed Universit y of Vaccine 00:00:00 [facility] Influenza Virus 2017-03-21 Completed Universit y of Vaccine 00:00:00 [facility] Influenza Virus 2017-03-21 Completed Universit y of Vaccine 00:00:00 [facility] Influenza Virus 2017-03-21 Completed Universit y of Vaccine 00:00:00 [facility] Influenza Virus 2017-03-21 Completed Universit y of Vaccine 00:00:00 [facility] Influenza Virus 2017-03-21 Completed Universit y of Vaccine 00:00:00 [facility] Influenza Virus 2017-03-21 Completed Universit y of Vaccine 00:00:00 [facility] Influenza Virus 2017-03-21 Completed Universit y of Vaccine 00:00:00 [facility] Influenza Virus 2017-03-21 Completed Universit y of Vaccine 00:00:00 [facility] Influenza Virus 2017-03-21 Completed Universit y of Vaccine 00:00:00 [facility] Influenza Virus 2017-03-21 Completed Universit y of Vaccine 00:00:00 [facility] Influenza Virus 2017-03-21 Completed Universit y of Vaccine 00:00:00 [facility] Influenza Virus 2017-03-21 Completed Universit y of Vaccine 00:00:00 [facility] Influenza Virus 2017-03-21 Completed Universit y of Vaccine 00:00:00 [facility] Influenza Virus 2017-03-21 Completed Universit y of Vaccine 00:00:00 [facility] Influenza Virus 2017-03-21 Completed Universit y of Vaccine 00:00:00 [facility] Influenza Virus 2017-03-21 Completed Universit y of Vaccine 00:00:00 [facility] Influenza Virus 2017-03-21 Completed Universit y of Vaccine 00:00:00 [facility] Influenza Virus 2017-03-21 Completed Universit y of Vaccine 00:00:00 [facility] Influenza Virus 2017-03-21 Completed Universit y of Vaccine 00:00:00 [facility] Influenza Virus 2017-03-21 Completed Universit y of Vaccine 00:00:00 [facility] Influenza Virus 2017-03-21 Completed Universit y of Vaccine 00:00:00 [facility] Influenza Virus 2017-03-21 Completed Universit y of Vaccine 00:00:00 [facility] Influenza Virus 2017-03-21 Completed Universit y of Vaccine 00:00:00 [facility] Influenza Virus 2017-03-21 Completed Universit y of Vaccine 00:00:00 [facility] Influenza Virus 2017-03-21 Completed Universit y of Vaccine 00:00:00 [facility] Influenza Virus 2017-03-21 Completed Universit y of Vaccine 00:00:00 [facility] Influenza Virus 2017-03-21 Completed Universit y of Vaccine 00:00:00 [facility] Influenza Virus 2017-03-21 Completed Universit y of Vaccine 00:00:00 [facility] Influenza Virus 2017-03-21 Completed Universit y of Vaccine 00:00:00 [facility] Influenza Virus 2017-03-21 Completed Universit y of Vaccine 00:00:00 [facility] Influenza Virus 2017-03-21 Completed Universit y of Vaccine 00:00:00 [facility] Influenza Virus 2017-03-21 Completed Universit y of Vaccine 00:00:00 [facility] Influenza Virus 2017-03-21 Completed Universit y of Vaccine 00:00:00 [facility] Influenza Virus 2017-03-21 Completed Universit y of Vaccine 00:00:00 [facility] Influenza Virus 2017-03-21 Completed Universit y of Vaccine 00:00:00 [facility] Influenza Virus 2017-03-21 Completed Universit y of Vaccine 00:00:00 [facility] Influenza Virus 2017-03-21 Completed Universit y of Vaccine 00:00:00 [facility] Influenza Virus 2017-03-21 Completed Universit y of Vaccine 00:00:00 [facility] Influenza Virus 2017-03-21 Completed Universit y of Vaccine 00:00:00 [facility] Influenza Virus 2017-03-21 Completed Universit y of Vaccine 00:00:00 [facility] Influenza Virus 2017-03-21 Completed Universit y of Vaccine 00:00:00 [facility] Influenza Virus 2017-03-21 Completed Universit y of Vaccine 00:00:00 [facility] Influenza Virus 2017-03-21 Completed Universit y of Vaccine 00:00:00 [facility] Influenza Virus 2017-03-21 Completed Universit y of Vaccine 00:00:00 [facility] Influenza Virus 2017-03-21 Completed Universit y of Vaccine 00:00:00 [facility] Influenza Virus 2017-03-21 Completed Universit y of Vaccine 00:00:00 [facility] Influenza Virus 2017-03-21 Completed Universit y of Vaccine 00:00:00 [facility] Influenza Virus 2017-03-21 Completed Universit y of Vaccine 00:00:00 [facility] Influenza Virus 2017-03-21 Completed Universit y of Vaccine 00:00:00 [facility] Influenza Virus 2017-03-21 Completed Universit y of Vaccine 00:00:00 [facility] Influenza Virus 2017-03-21 Completed Universit y of Vaccine 00:00:00 [facility] Influenza Virus 2017-03-21 Completed Universit y of Vaccine 00:00:00 [facility] Influenza Virus 2017-03-21 Completed Universit y of Vaccine 00:00:00 [facility] Influenza Virus 2017-03-21 Completed Universit y of Vaccine 00:00:00 [facility] Influenza Virus 2017-03-21 Completed Universit y of Vaccine 00:00:00 [facility] Influenza Virus 2017-03-21 Completed Universit y of Vaccine 00:00:00 [facility] Influenza Virus 2017-03-21 Completed Universit y of Vaccine 00:00:00 [facility] Influenza Virus 2017-03-21 Completed Universit y of Vaccine 00:00:00 [facility] Influenza Virus 2017-03-21 Completed Universit y of Vaccine 00:00:00 [facility] Influenza Virus 2017-03-21 Completed Universit y of Vaccine 00:00:00 [facility] TDAP 2015-10-03 Completed University of 00:00:00 [facility] TDAP 2015-10-03 Completed University of 00:00:00 [facility] TDAP 2015-10-03 Completed University of 00:00:00 [facility] TDAP 2015-10-03 Completed University of 00:00:00 [facility] TDAP 2015-10-03 Completed University of 00:00:00 [facility] TDAP 2015-10-03 Completed University of 00:00:[address] [facility] TDAP 2015-10-03 Completed University of 00:00:00 [facility] TDAP 2015-10-03 Completed University of 00:00:00 [facility] TDAP 2015-10-03 Completed University of 00:00:00 [facility] TDAP 2015-10-03 Completed University of 00:00:[address] [facility] TDAP 2015-10-03 Completed University of 00:00:00 [facility] TDAP 2015-10-03 Completed University of 00:00:00 [facility] TDAP 2015-10-03 Completed University of 00:00:[address] [facility] TDAP 2015-10-03 Completed University of 00:00:[address] [facility] TDAP 2015-10-03 Completed University of 00:00:00 [facility] TDAP 2015-10-03 Completed University of 00:00:00 [facility] TDAP 2015-10-03 Completed University of 00:00:00 [facility] TDAP 2015-10-03 Completed University of 00:00:00 [facility] TDAP 2015-10-03 Completed University of 00:00:00 [facility] TDAP 2015-10-03 Completed University of 00:00:00 [facility] TDAP 2015-10-03 Completed University of 00:00:00 [facility] TDAP 2015-10-03 Completed University of 00:00:00 [facility] TDAP 2015-10-03 Completed University of 00:00:00 [facility] TDAP 2015-10-03 Completed University of 00:00:00 [facility] TDAP 2015-10-03 Completed University of 00:00:00 [facility] TDAP 2015-10-03 Completed University of 00:00:00 [facility] TDAP 2015-10-03 Completed University of 00:00:00 [facility] TDAP 2015-10-03 Completed University of 00:00:00 [facility] TDAP 2015-10-03 Completed University of 00:00:00 [facility] TDAP 2015-10-03 Completed University of 00:00:00 [facility] TDAP 2015-10-03 Completed University of 00:00:00 [facility] TDAP 2015-10-03 Completed University of 00:00:00 [facility] TDAP 2015-10-03 Completed University of 00:00:00 [facility] TDAP 2015-10-03 Completed University of 00:00:00 [facility] TDAP 2015-10-03 Completed University of 00:00:00 [facility] TDAP 2015-10-03 Completed University of 00:00:00 [facility] TDAP 2015-10-03 Completed University of 00:00:00 [facility] TDAP 2015-10-03 Completed University of 00:00:00 [facility] TDAP 2015-10-03 Completed University of 00:00:00 [facility] TDAP 2015-10-03 Completed University of 00:00:00 [facility] TDAP 2015-10-03 Completed University of 00:00:00 [facility] TDAP 2015-10-03 Completed University of 00:00:00 [facility] TDAP 2015-10-03 Completed University of 00:00:00 [facility] TDAP 2015-10-03 Completed University of 00:00:00 [facility] TDAP 2015-10-03 Completed University of 00:00:00 [facility] TDAP 2015-10-03 Completed University of 00:00:00 [facility] TDAP 2015-10-03 Completed University of 00:00:00 [facility] TDAP 2015-10-03 Completed University of 00:00:00 [facility] TDAP 2015-10-03 Completed University of 00:00:00 [facility] TDAP 2015-10-03 Completed University of 00:00:00 [facility] TDAP 2015-10-03 Completed [facility] of 00:00:[address] [facility] TDAP 2015-10-03 Completed [facility] of 00:00:[address] [facility] TDAP 2015-10-03 Completed University of 00:00:[address] [facility] TDAP 2015-10-03 Completed University of 00:00:[address] [facility] TDAP 2015-10-03 Completed University of 00:00:00 [facility] TDAP 2015-10-03 Completed University of 00:00:[address] [facility] TDAP 2015-10-03 Completed University of 00:00:00 [facility] TDAP 2015-10-03 Completed University of 00:00:00 [facility] TDAP 2015-10-03 Completed University of 00:00:00 [facility] TDAP 2015-10-03 Completed University of 00:00:00 [facility] TDAP 2015-10-03 Completed University of 00:00:00 [facility] TDAP 2015-10-03 Completed University of 00:00:00 [facility] Pneumococcal 13 2012-12-07 Completed Universit y of [...] ical PPSV23 (PNEUMOVAX) Branch Pneumococcal 2012-07-26 Completed [place] [facility] f Polysaccharide, 00:00:00 [place] [facility] PPSV23 (PNEUMOVAX) [facility] Vital Signs Vital Name Observation Time Observation Value Comments Source Systolic blood 2022-11-26 20:06:00 137 mm[Hg] Univer sity of pressure [facility] Diastolic blood 2022-11-26 20:06:00 89 mm[Hg] [email or web address] Heart rate 2022-11-26 20:06:00 88 /min Universi ty [facility] Body height 2022-11-26 20:06:00 177.8 cm Universi ty [facility] Body weight 2022-11-26 20:06:00 84.777 kg Universi ty [facility] BMI 2022-11-26 20:06:00 26.82 kg/m2 Universi ty [facility] Oxygen saturation in 2022-11-26 20:06:00 96 /min University of Arterial blood by [facility] Pulse oximetry Branch Systolic blood 2022-09-17 15:58:00 129 mm[Hg] Univer [facility]ity of [email or web address] Diastolic blood 2022-09-17 15:58:00 69 mm[Hg] Unive rsity of pressure [facility] Heart rate 2022-09-17 15:58:00 84 /min Universi ty [facility] Body height 2022-09-17 15:58:00 177.8 cm Universi ty [facility] Body weight 2022-09-17 15:58:00 85.186 kg Universi ty [facility] BMI 2022-09-17 15:58:00 26.95 kg/m2 Universi ty [facility] Oxygen saturation in 2022-09-17 15:58:00 95 /min University of Arterial blood by [facility] monika Pulse oximetry Branch Systolic blood 2022-07-27 17:40:00 120 mm[Hg] Univer sity of pressure [facility] Diastolic blood 2022-07-27 17:40:00 71 mm[Hg] Unive rsity of pressure [facility] Heart rate 2022-07-27 17:40:00 83 /min [facility] Respiratory rate 2022-07-27 17:40:00 19 /min [facility] Oxygen saturation in 2022-07-27 17:40:00 97 /min University of Arterial blood by [facility] Pulse oximetry Branch Body temperature 2022-07-27 14:43:00 37.61 Felicia [facility] Body weight 2022-07-27 14:43:00 83.915 kg [facility] BMI 2022-07-27 14:43:00 26.54 kg/m2 [facility] Systolic blood 2022-06-18 17:46:00 148 mm[Hg] Univer sity of pressure [facility] Diastolic blood 2022-06-18 17:46:00 60 mm[Hg] Unive rsity of pressure [facility] Respiratory rate 2022-06-18 17:46:00 20 /min [facility] Oxygen saturation in 2022-06-18 17:46:00 98 /min University of Arterial blood by [facility] Pulse oximetry Branch Body weight 2022-06-18 13:00:00 83.915 kg [facility] BMI 2022-06-18 13:00:00 26.54 kg/m2 [facility] Systolic blood 2022-06-18 16:55:00 121 mm[Hg] Univer sity of pressure [facility] Diastolic blood 2022-06-18 16:55:00 58 mm[Hg] Unive rsity of pressure [facility] Respiratory rate 2022-06-18 16:55:00 16 /min [facility] Oxygen saturation in 2022-06-18 16:55:00 98 /min University of Arterial blood by [facility] Pulse oximetry Branch Body weight 2022-06-18 13:00:00 83.915 kg [facility] BMI 2022-06-18 13:00:00 26.54 kg/m2 [facility] Systolic blood 2022-06-01 16:58:00 126 mm[Hg] [facility] Diastolic blood 2022-06-01 16:58:00 99 [...] 99 /min [facility] Arterial blood by [place] [facility] Pulse oximetry Branch Systolic blood 2022-05-19 22:18:00 129 mm[Hg] [facility] Diastolic blood 2022-05-19 22:18:00 74 mm[Hg] [facility] Heart rate 2022-05-19 22:18:00 76 /min [facility] Body temperature 2022-05-19 22:18:00 36.89 Felicia [facility] Respiratory rate 2022-05-19 22:18:00 18 /min [facility] Body height 2022-05-19 22:18:00 177.8 cm [facility] Body weight 2022-05-19 22:18:00 84.732 kg [facility] BMI 2022-05-19 22:18:00 26.80 kg/m2 [facility] Oxygen saturation in 2022-05-19 22:18:00 98 /min [facility] Arterial blood by [place] Pulse oximetry Branch Systolic blood 2022-03-30 18:13:00 135 mm[Hg] [facility] Diastolic blood 2022-03-30 18:13:00 67 mm[Hg] [facility] Heart rate 2022-03-30 18:11:00 66 /min [facility] Body temperature 2022-03-30 18:11:00 36.56 Felicia [facility] Respiratory rate 2022-03-30 18:11:00 18 /min [facility] Body height 2022-03-30 18:11:00 177.8 cm [facility] Body weight 2022-03-30 18:11:00 86.818 kg [facility] BMI 2022-03-30 18:11:00 27.46 kg/m2 [facility] Oxygen saturation in 2022-03-30 18:11:00 98 /min [facility] Arterial blood by [facility] Pulse oximetry Branch Body weight 2022-03-18 15:50:00 86.682 kg [facility] BMI 2022-03-18 15:50:00 27.42 kg/m2 [facility] Body weight 2022-02-25 19:14:00 85.276 kg [facility] BMI 2022-02-25 19:14:00 26.98 kg/m2 [facility] Systolic blood 2022-02-02 13:30:00 132 mm[Hg] [facility] Diastolic blood 2022-02-02 13:30:00 80 mm[Hg] [facility] Heart rate 2022-02-02 13:30:00 60 /min [facility] Respiratory rate 2022-02-02 13:30:00 16 /min [facility] Body height 2022-02-02 13:30:00 177.8 cm [facility] Body weight 2022-02-02 13:30:00 85.73 kg [facility] BMI 2022-02-02 13:30:00 27.12 kg/m2 [facility] Oxygen saturation in 2022-02-02 13:30:00 99 /min [facility] Arterial blood by [facility] monika Pulse oximetry Branch Systolic blood 2021-10-29 21:34:00 139 mm[Hg] [facility] Diastolic blood 2021-10-29 21:34:00 76 mm[Hg] [facility] Heart rate 2021-10-29 21:34:00 66 /min [facility] Respiratory rate 2021-10-29 21:34:00 18 /min [facility] Body height 2021-10-29 21:34:00 177.8 cm [facility] Body weight 2021-10-29 21:34:00 86.909 kg [facility] BMI 2021-10-29 21:34:00 27.49 kg/m2 [facility] Oxygen saturation in 2021-10-29 21:34:00 98 /min [facility] Arterial blood by [facility] Pulse oximetry Branch Procedures Procedure Date / Time Performing Clinician Source Performed COMP. METABOLIC PANEL 2022-12-04 17:04:00 Evelin Colmenares [facility] ([id number]) [facility] PROSTATIC SPECIFIC ANTIGEN 2022-12-04 17:04:00 Franklyn Bañuelos [facility] GLYCOSYLATED HEMOGLOBIN 2022-12-04 17:04:00 Dedra [facility] (A1C) [facility] URINE CULTURE 2022-12-04 17:04:00 [facility] FOR [facility] 2022-10-23 05:01:00 Doctor Unassigned, [facility] Name [facility] COMP. METABOLIC PANEL 2022-09-18 15:14:00 Evelin Colmenares [facility] ([id number]) [facility] CBC WITH DIFF 2022-09-18 15:14:00 Dedra [facility] ASSIGNMENT OF BENEFITS 2022-09-17 15:40:48 Doctor Unassigned, [facility] Name [facility] EXTERNAL PROVIDER RECORDS 2022-08-05 06:01:00 Doctor Unassigned, [facility] Name [facility] XR CHEST 1 VW 2022-07-27 16:06:27 Javier Morris [facility] COMP. METABOLIC PANEL 2022-07-27 15:23:00 Javier Morris [facility] ([id number]) [facility] CBC WITH DIFF 2022-07-27 15:23:00 Javier Morris [facility] RAPID INFLUENZA A/B 2022-07-27 15:23:00 Javier Morris [facility] COVID-19 (ID NOW RAPID 2022-07-27 15:23:00 Javier Morris [facility] TESTING) Medical Branch CONSENT/REFUSAL FOR 2022-07-27 14:40:28 Doctor Vidhi [facility] DIAGNOSIS AND TREATMENT [place] [facility] [place] CARDIAC CATHETERIZATION 2022-06-18 15:56:36 Kamran Hua [facility] CARDIAC CATHETERIZATION 2022-06-18 15:56:36 Kamran Hua [facility] CARDIAC CATHETERIZATION 2022-06-18 15:56:36 Kamran Hua [facility] CARDIAC CATHETERIZATION 2022-06-18 15:56:36 Kamran Hua [facility] OUTPATIENT CARDIAC 2022-06-18 06:01:00 Doctor Vidhi [facility] CATHETERIZATION DOCUMENTS [place] [facility] CONSENT/REFUSAL FOR 2022-06-01 16:39:57 Doctor Vidhi [facility] DIAGNOSIS AND TREATMENT [place] [facility] POCT SARS-COV-2 ANTIGEN 2022-05-19 22:24:00 Haley Camejo [facility] (BINAX NOW) Medical Bostic EXTERNAL PROVIDER RECORDS 2022-04-08 05:01:00 Doctor Mosher, [facility] [place] [facility] POCT URINALYSIS AUTO 2022-03-30 18:15:00 Franklyn Bañuelos [facility] DISCLOSURE AND CONSENT, 2022-03-30 05:01:00 Doctor Vidhi, [facility] MEDICAL AND SURGICAL [place] [facility] PROCEDURES POCT URINALYSIS AUTO 2022-02-02 13:33:00 Franklyn Bañuelos [facility] HB ECG ROUTINE & RHYTHM 2021-10-29 21:44:44 Kamran Hua [facility] Encounters Start End Encounter Admission Attending Care Care Encounter Source Date/Time Date/Time Type Type Clinicians Facility Department ID 2022-10-13 Outpatient R SARMAD TXANA DOS SANTOSU [id number] Univers 11:41:41 [facility] 2021-11-24 Outpatient R TRESA HUA CCA [id number] Univers 16:22:05 KAMRAN tafoya [facility] 2021-04-20 Outpatient HELENE, [facility] DARIELA [id number] Univers 22:34:37 MARY tafoya [facility] 2021-04-20 Emergency [facility] [id number] Univers 20:43:42 michelet [facility] 2023-03-22 2023-03-22 Outpatient R DEDRA [facility] [id number] Univers 10:30:00 10:30:00 EVELIN tafoya [facility] 2023-03-15 2023-03-15 Outpatient R VANI DSOUZA [facility] [id number] Univers 11:30:00 11:30:00 MEET LUDWIG michelet [facility] 2023-01-05 2023-01-05 Outpatient R DEDRA [facility] [id number] Univers 13:30:00 13:30:00 EVELIN tafoya [facility] 2022-12-10 2022-12-10 Telephone [facility] [id number] Univers 00:00:00 00:00:00 Evelin HEALTH 350.1.13.10 it y of [place] 4.2.7.2.686 Luis Armando as [place]?BLEA [id number] [facility] [address] MEDICAL OFFICE [facility] 2022-12-04 2022-12-04 Outpatient R DEDRA [facility] [id number] Univers 12:15:00 12:15:00 EVELIN tafoya [facility] 2022-12-04 2022-12-04 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, 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 - Db [facility] 1.2.840.1 [id number] Univers 12:15:00 12:15:00 Visit Fariba Colmenaresthia HEALTH 350.1.13.10 ity of [place] 4.2.7.2.686 Luis Armando as [place]?BLEA [id number] [facility] [address] MEDICAL OFFICE [facility] 2022-12-03 2022-12-03 Telephone [facility] [id number] [id number] Univers 00:00:00 00:00:00 Evelin HEALTH 350.1.13.10 it y of [place] 4.2.7.2.686 Luis Armando as [place]?BLEA [id number] [address] MEDICAL OFFICE [facility] 2022-11-26 2022-11-26 Outpatient R DEDRA [facility] [id number] Univers 15:00:00 16:06:01 EVELIN ity of [facility] 2022-11-26 2022-11-26 Office [facility] 1.2.840.114 [id number] Univers 15:00:00 16:06:01 Visit [facility] 350.1.13.10 it y [facility] 4.2.7.2.686 Luis Armando as [place]?BLEA [id number] [address] MEDICAL OFFICE [facility] 2022-11-19 2022-11-19 Refill [facility] 1.2.840.114 [id number] Univers 00:00:00 00:00:00 Evelin HEALTH 350.1.13.10 it y of [facility] 4.2.7.2.686 Luis Armando as [place]?BLEA [id number] [address] MEDICAL OFFICE [facility] 2022-10-26 2022-10-26 Outpatient [facility] [id number] Univers 11:00:00 11:00:00 SENDIL ity of [facility] 2022-10-23 2022-10-23 Orders Doctor LIBORIO 1.2.840.114 [id number] Univers 00:00:00 00:00:00 Only Unassigned, SONIDO 350.1.13.10 ity of [place] [facility] 4.2.7.2.686 Luis Armando as [id number] [place] [address] Branch 2022-10-13 2022-10-13 Telephone [facility] 1.2.840.114 [id number] Univers 00:00:00 00:00:00 Franklyn HEALTH 350.1.13.10 it y [place] [id number] Med ical [facility] [address] 2022-10-05 2022-10-05 Telephone [facility] 1.2.840.114 [id number] Univers 00:00:00 00:00:00 [facility] 350.1.13.10 i ty [place] [id number] Ca dicbriseyda FOLEY 204 [facility] 2022-09-29 2022-09-29 Outpatient R SARMAD [facility] [id number] Univers 11:15:00 11:59:23 FRANKLYN ity [facility] 2022-09-24 2022-09-24 Telephone Dedra [facility] 1.2.004.960 [id number] Univers 00:00:00 00:00:00 Evelin HEALTH 350.1.13.10 it y of [place] 4.2.7.2.686 Luis Armando as [place]?BLEA [id number] Ca veroniquebriseyda MEDINA [address] [facility] OFFICE [facility] 2022-09-18 2022-09-18 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, [facility] 1.2.840.1 [id number] Univers 10:00:00 10:28:03 Visit Evelin Colmenares 350.1.13.10 ity [facility] 4.2.7.2.686 Luis Armando as [place]?BLEA [id number] Ca dicbriseyda MEDINA [address] [facility] OFFICE [facility] 2022-09-18 2022-09-18 Outpatient R DEDRA [facility] [id number] Univers 10:00:00 10:00:00 EVELIN itbonnie [facility] 2022-09-18 2022-09-18 Pre Visit LIBORIO Horan 1.2.592.611 [id number] Univers 00:00:00 00:00:00 Outreach Krunalchon Guallpa SONIDO 350.1.13.10 ity [facility] 4.2.7.2.686 Luis Armando as [id number] [facility] [address] 2022-09-17 2022-09-17 Outpatient R DEDRA [facility] [id number] Univers 11:00:00 11:31:02 EVELIN itbonnie [facility] 2022-09-17 2022-09-17 Office Dedra [facility] 1.2.840.114 [id number] Univers 11:00:00 11:31:02 Visit Evelin HEALTH 350.1.13.10 it y of [place] 4.2.7.2.686 Luis Armando as [place]?BLEA [id number] [address] OFFICE [facility] 2022-09-17 2022-09-17 Orders Doctor LIBORIO 1.2.840.114 [id number] Univers 00:00:00 00:00:00 Only Unassigned, SONIDO 350.1.13.10 ity of [place] [facility] 4.2.7.2.686 Luis Armando as [id number] [address] 2022-09-17 2022-09-17 Refjay [facility] 1.2.840.114 [id number] Univers 00:00:00 00:00:00 Keon HEALTH 350.1.13.10 it y of [place] 4.2.7.2.686 Luis Armando as [place]?BLEA [id number] [address] OFFICE [facility] 2022-09-15 2022-09-15 Refjay [facility] 1.2.840.114 [id number] Univers 00:00:00 00:00:00 Evelin HEALTH 350.1.13.10 it y of [place] 4.2.7.2.686 Luis Armando as [place]?BLEA [id number] [address] OFFICE [facility] 2022-09-14 2022-09-14 Refjay [facility] 1.2.840.114 [id number] Univers 00:00:00 00:00:00 Evelin HEALTH 350.1.13.10 it y of [place] 4.2.7.2.686 Luis Armando as [place]?BLEA [id number] [address] OFFICE [facility] 2022-08-10 2022-08-10 Outpatient [facility] [id number] Univers 13:00:00 13:00:00 EVELIN ity of [facility] 2022-08-05 2022-08-05 Orders Doctor LIBORIO 1.2.840.114 [id number] Univers 00:00:00 00:00:00 Only Unassigned, SONIDO 350.1.13.10 ity of [place] [facility] 4.2.7.2.686 Luis Armando as [id number] [facility] [address] 2022-07-27 2022-07-27 Outpatient R DEDRA [facility] [id number] Univers 13:30:00 13:30:00 EVELIN ity [facility] 2022-07-27 2022-07-27 Emergency [facility] ERT [id number] Univers 08:49:00 12:38:00 JAVIER itbonnie [facility] 2022-07-27 2022-07-27 Emergency [facility]IBOL[facility] 1.2.054.366 [id number] Univers 08:49:00 12:38:00 Javier S [place] 350.1.13.10 i ty [place] [id number] [facility] [address] 2022-07-13 2022-07-13 Telephone [facility] 1.2.966.057 [id number] Univers 00:00:00 00:00:00 Evelin HEALTH 350.1.13.10 it y of [place] 4.2.7.2.686 Luis Armando as [place]?BLEA [phone] [facility] [address] [facility] OFFICE [facility] 2022-07-09 2022-07-09 Telephone [facility] 1.2.067.120 [id number] Univers 00:00:00 00:00:00 Evelin HEALTH 350.1.13.10 it y [facility] 4.2.7.2.686 Luis Armando as [place]?BLEA [id number] [facility] [address] [facility] OFFICE [facility] 2022-06-22 2022-06-22 Telephone [facility] 1.2.108.975 [id number] Univers 00:00:00 00:00:00 Sendil LisaHEricka OTOOLE 350.1.13.10 [place]y of [place] [id number] [facility] 059 [facility] 2022-06-18 2022-06-18 Outpatient R [facility] CCA [id number] Univers 06:26:00 12:25:00 SENDIL michelet [facility] 2022-06-18 2022-06-18 [facility] EFREM Hua 1.2.840.114 [id number] Univers 06:26:00 12:25:00 Encounter Kamran HEAD 350.1.13.10 ity of [facility] 4.2.7.2.686 Luis Armando as [id number] [facility] [address] 2022-06-18 2022-06-18 Surgery EFREM Christine 1.2.840.114 [id number] Univers 10:00:00 11:00:00 Kenn HEAD 350.1.13.10 it y of [facility] 4.2.7.2.686 Luis Armando as [id number] [facility] [address] 2022-06-18 2022-06-18 Telephone Dedra [facility] 1.2.641.526 [id number] Univers 00:00:00 00:00:00 [facility] 350.1.13.10 it y of [place] 4.2.7.2.686 Luis Armando as [place]?BLEA [phone] Ca camila MEDINA [address] MEDICAL OFFICE [facility]ILDING 2022-06-18 2022-06-18 Orders Doctor LIBORIO 1.2.840.114 [id number] Univers 00:00:00 00:00:00 Only Unassigned, SONIDO 350.1.13.10 ity of [place] [facility] 4.2.7.2.686 Luis Armando as [id number] [facility] [address] 2022-06-16 2022-06-16 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 10 [place] [id number] Ca camila [address] BUILDING 2022-06-16 2022-06-16 Outpatient R MELITA [facility] [id number] Univers 11:45:00 11:45:00 SENDIL ity of [facility] 2022-06-16 2022-06-16 Outpatient R [facility] [id number] Univers 08:00:00 08:00:00 ity of [facility] 2022-06-01 2022-06-01 Emergency X [facility] ERT [id number] Univers 11:00:00 11:25:00 [facility] 2022-06-01 2022-06-01 Emergency [facility] 1.2.616.710 [id number] Univers 11:00:00 11:25:00 Fadumo OTOO[place] 350.1.13.10 [place] [id number] [facility] [address] 2022-05-20 2022-05-20 Outpatient R [facility] [id number] Univers 11:00:00 11:00:00 ity [facility] 2022-05-19 2022-05-19 Outpatient [facility] [id number] Univers 16:20:00 16:38:33 [facility] 2022-05-19 2022-05-19 Urgent Bashir [facility] 1.2.840.114 [id number] Univers 16:20:00 16:38:33 Care Unknown, Attending HEALTH 350.1.13.10 ity of [place] 4.2.7.2.686 Luis Armando as [place]?BLEA [phone] [facility] [address] MEDICAL OFFICE BUILDING 2022-05-08 2022-05-08 Telephone EFREM Hua 1.2.254.279 [id number] Univers 00:00:00 00:00:00 Kamran HEAD 350.1.13.10 ity of [facility] 4.2.7.2.686 Luis Armando as [id number] [facility] [address] 2022-04-29 2022-04-29 Telephone Melita [facility] 1.2.473.088 [id number] Univers 00:00:00 00:00:00 Kamran OTOOLE 350.1.13.10 ity of [place].2.[place] [facility] [id number] [facility] [address] BUILDING 2022-04-27 2022-04-27 Telephone EFREM Hua 1.2.349.625 [id number] Univers 00:00:00 00:00:00 Sendil LisaH. SONIDO 350.1.13.10 ity of HOSPITAL 4.2.7.2.686 Luis Armando as [id number] [facility] [address] 2022-04-18 2022-04-18 Refill [facility]CIBOL[facility] 1.2.840.114 [id number] Univers 00:00:00 00:00:00 Wondiful A HEALTH 350.1.13.10 ity of [place] 4.2.7.2.686 Luis Armando as [place]?BLEA [phone] Ca dicbriseyda BYRNEEY [address] MEDICAL OFFICE BUILDING 2022-04-08 2022-04-08 Orders Doctor LIBORIO 1.2.840.114 [id number] Univers 00:00:00 00:00:00 Only Unassigned, SONIDO 350.1.13.10 ity of [place] [facility] 4.2.7.2.686 Luis Armando as [id number] [address] 2022-03-30 2022-03-30 Outpatient R [facility] [id number] Univers 13:00:00 14:03:44 FRANKLYN ity of [facility] 2022-03-30 2022-03-30 Office [facility] 1.2.840.114 [id number] Univers 13:00:00 14:03:44 Visit Rm, Adc Surg Spec Procedure [place] 3 50.1.13.10 [place]y of [place] [phone] Ca camila [facility] 204 [facility] 2022-03-30 2022-03-30 Orders Doctor LIBORIO 1.2.840.114 [id number] Univers 00:00:00 00:00:00 Only Unassigned, SONIDO 350.1.13.10 ity of [place] [facility] 4.2.7.2.686 Luis Armando as [id number] [address] 2022-03-26 2022-03-26 [facility] 1.2.840.114 [id number] Univers 00:00:00 00:00:00 Franklyn [place] 350.1.13.10 i ty [facility] 4.2.7.2.[place] [id number] Ca dical [facility] [address] [facility] 2022-03-18 2022-03-18 Nurse Nurse, [facility] Surgery [facility] 1.2. 840.114 [id number] Univers 10:00:00 10:36:16 Visit Iselarafikevin Franklyn [facility] 350.1.13.10 [place] [id number] Ca dic[address] 2022-03-18 2022-03-18 Outpatient R [facility] [id number] Univers 10:00:00 10:00:00 FRANKLYN ity [facility] 2022-03-09 2022-03-09 Outpatient R [facility] [id number] Univers 14:00:00 14:00:00 FRANKLYN ity [facility] 2022-03-03 2022-03-03 Jorge [facility] 1.2.840.114 [id number] Univers 00:00:00 00:00:00 [facility] 350.1.13.10 it y of [place] 4.2.7.2.686 Luis Armando as [place]?BLEA [id number] [address] OFFICE BUILDING 2022-02-25 2022-02-25 Nurse Nurse, [facility] Surgery [facility] 1.2. 840.114 [id number] Univers 13:15:00 13:15:00 Visit Franklyn Bañuelos 350.1.13.10 ity of [place] [id number] [facility] 204 [facility] 2022-02-25 2022-02-25 Outpatient R [facility] [id number] Univers 13:15:00 13:02:27 FRANKLYN ity [facility] 2022-02-02 2022-02-02 Outpatient R [facility] [id number] Univers 08:15:00 09:02:46 FRANKLYN ity [facility] 2022-02-02 2022-02-02 Office [facility] 1.2.840.114 [id number] Univers 08:15:00 09:02:46 Visit Franklyn [facility] 350.1.13.10 i ty of [place].2.7.2.686 [place] [phone] Ca camila FOLEY 204 [facility] 2022-01-29 2022-01-29 Outpatient R SARMAD [facility] [id number] Univers 11:45:00 11:45:00 FRANKLYN ity [facility] 2022-01-22 2022-01-22 [facility] 1.2.840.114 [id number] Univers 00:00:00 00:00:00 Keon HEALTH 350.1.13.10 it y of [facility] 4.2.7.2.686 Luis Armando as [place]?BLEA [id number] [facility] [address] [facility] OFFICE [facility] 2022-01-22 2022-01-22 Refill [facility]CIBOLA [facility] 1.2.840.114 [id number] Univers 00:00:00 00:00:00 Wondiful A HEALTH 350.1.13.10 ity of [place] 4.2.7.2.686 Luis Armando as EMERSON?BLEA [phone] [facility] CATY [address] [facility] [place] 2022-01-22 2022-01-22 Refjay [facility] [id number] [id number] Univers 00:00:00 00:00:00 Wondiful A HEALTH 350.1.13.10 ity of [place] 4.2.7.2.686 Luis Armando as EMERSON?BLEA [phone] [facility] ADAM 044 [facility] [place] 2022-01-19 2022-01-19 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 Univers 00:00:00 00:00:00 Evelin HEALTH 350.1.13.10 it y of [place] 4.2.7.2.686 Luis Armando as EMERSON?BLEA [phone] [address] MEDICAL OFFICE [facility] 2022-01-16 2022-01-16 Outpatient R DEDRA, [facility] [id number] Univers 13:00:00 23:59:00 EVELINSAMM tafoya [facility] 2022-01-16 2022-01-16 Outpatient [facility] [id number] [facility] 13:00:00 13:00:00 EVELINSAMM tafoya [facility] 2022-01-16 2022-01-16 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, Lane - [facility] 1.2.840.1 14 [id number] [facility] 12:15:00 12:30:00 Visit Evelin Colmenares 350.1.13.10 ity of [place] 4.2.7.2.686 Luis Armando as [place]?BLEA [phone] [facility] [address] OFFICE [facility] 2022-01-16 2022-01-16 Office [facility] 1.2.840.114 [id number] Univers 11:30:00 12:24:17 Visit Evelin HEALTH 350.1.13.10 it y of [place] 4.2.7.2.686 Luis Armando as [place]?BLEA [phone] [address] MEDICAL OFFICE [facility] 2022-01-16 2022-01-16 Outpatient R DEDRA [facility] [id number] Univers 11:30:00 12:24:17 EVELINSAMM tafoya [facility] 2022-01-16 2022-01-16 Outpatient R DEDRA [facility] [id number] Univers 11:30:00 11:30:00 EVELINSAMM tafoya [facility] 2021-12-30 2021-12-30 Outpatient R DEDRA, [facility] [id number] Univers 14:27:53 23:59:00 EVELIN tafoya [facility] 2021-12-30 2021-12-30 Outpatient R DEDRA [facility] [id number] Univers 13:30:00 15:03:09 EVELIN tafoya [facility] 2021-12-30 2021-12-30 Office [facility] 1.2.840.114 [id number] Univers 13:30:00 15:03:09 Visit Evelin [facility] 350.1.13.10 it y of [place] 4.2.7.2.686 Luis Armando as [place]?BLEA [phone] [address] MEDICAL OFFICE [facility] 2021-12-30 2021-12-30 Outpatient R MISSAELCELESTE [facility] [id number] Univers 13:30:00 13:30:00 EVELIN tafoya [facility] 2021-12-26 2021-12-26 Telephone [facility] 1.2.984.064 [id number] Univers 00:00:00 00:00:[address] [facility] 350.1.13.10 it y [facility] 4.2.7.2.686 Luis Armando as [place]?BLEA [id number] [address] MEDICAL OFFICE [facility] 2021-12-24 2021-12-24 Outpatient R MELITA [facility] [id number] Univers 13:00:00 13:00:00 SENDIL itbonnie [facility] 2021-12-24 2021-12-24 Outpatient R MELITA [facility] [id number] Univers 13:00:00 13:00:00 SENDIL ity [facility] 2021-12-24 2021-12-24 Outpatient R MELITA [facility] [id number] Univers 13:00:00 13:00:00 SENDIL ity [facility] 2021-12-24 2021-12-24 Outpatient R MELITA [facility] [id number] Univers 13:00:00 13:00:00 SENDIL ity [facility] 2021-12-24 2021-12-24 Telephone EFREM Hua 1.2.189.230 [id number] Univers 00:00:00 00:00:00 Sendteodoro HEAD 350.1.13.10 ity of [facility] 4.2.7.2.686 Luis Armando as [phone] [place] [address] [place] 2021-12-24 2021-12-24 Telephone [facility] 1.2.601.785 [id number] Univers 00:00:00 00:00:00 [facility] 350.1.13.10 it y of [place] 4.2.7.2.686 Luis Armando as [place]?BLEA [phone] [address] MEDICAL OFFICE [facility] 2021-12-19 2021-12-19 Outpatient [facility] [id number] Univers 14:30:00 14:58:55 EVELIN ity of [facility] 2021-12-19 2021-12-19 Office [facility] 1.2.840.114 [id number] Univers 14:30:00 14:58:55 Visit [facility] 350.1.13.10 it y of [place] 4.2.7.2.686 Luis Armando as [place]?BLEA [phone] [address] OFFICE [facility] 2021-12-19 2021-12-19 Telephone [facility] 1.2.963.029 [id number] Univers 00:00:00 00:00:00 Kamran OTOOLE 350.1.13.10 ity of [place] [id number] [facility] 059 [facility] 2021-12-02 2021-12-02 Outpatient R [facility] [id number] Univers 11:30:00 11:30:00 ity of [facility] 2021-12-02 2021-12-02 Outpatient R [facility] [id number] Univers 11:00:00 11:00:00 ity of [facility] 2021-11-26 2021-11-26 Telephone [facility] 1.2.419.051 [id number] Univers 00:00:00 00:00:00 Elinor SOTO 350.1.13.10 ity of [place]2.7.2.686 [place] C[place] [id number] [facility] [address] [facility] 2021-11-25 2021-11-25 Outpatient R BARBARA, ELINOR [facility] [id number] Univers 14:30:47 23:59:00 BARBARA ELINOR tafoya [facility] 2021-11-25 2021-11-25 [facility] Barbara [facility] 1.2.840.114 [id number] Univers 14:30:47 23:59:00 Encounter Elinor MULTISPEC 350.1.13.10 ity of [place].2.7.2.686 [place] CENTER [id number] [facility] [address] [facility] 2021-11-25 2021-11-25 Outpatient R ELINOR JIMENEZ [facility] [id number] Univers 15:00:00 15:48:19 ELINOR JIMENEZ [facility] 2021-11-25 2021-11-25 Office Barbara TXANA 1.2.840.114 [id number] Univers 15:00:00 15:48:19 Visit Elinor MULTISPEC 350.1.13.10 ity of [place] 4.2.7.2.686 [place] C[place] [id number] [facility] [address] [facility] 2021-11-25 2021-11-25 Outpatient R ELINOR JIMENEZ [facility] [id number] Univers 14:00:00 14:00:00 ELINOR JIMENEZ [facility] 2021-11-25 2021-11-25 Outpatient R ELINOR JIMENEZ [facility] [id number] Univers 14:00:00 14:00:00 ELINOR JIMENEZ [facility] 2021-11-20 2021-11-20 Telephone Barbara TX[place] 1.2.531.777 [id number] Univers 00:00:00 00:00:00 Elinor MULTISPEC 350.1.13.10 ity of [place]2.[place].2.[place] [id number] [facility] [address] [facility] 2021-11-18 2021-11-18 Telephone EFREM Hua 1.2.018.241 [id number] Univers 00:00:00 00:00:00 Sendil Aniya HEAD 350.1.13.10 ity of [facility] 4.2.7.2.686 Luis Armando as [phone] [address] 2021-11-18 2021-11-18 [facility] 1.2.840.114 [id number] Univers 00:00:00 00:00:00 Wondiful A HEALTH 350.1.13.10 ity of [place] 4.2.7.2.686 Luis Armando as [place]?BLEA [phone] Ca camila BYRNE [address] [facility] OFFICE [facility] 2021-11-07 2021-11-07 Outpatient R GEE BLOUNT [facility] [id number] Univers 13:00:00 14:01:44 GEE BLOUNT [facility] 2021-11-07 2021-11-07 Office Marva [facility] 1.2.840.114 [id number] Univers 13:00:00 14:01:44 Visit [facility] 350.1.13.10 ity of [place] 4.2.7.2.686 Luis Armando as [place]?BLEA [phone] Ca veroniquepr CATY [address] [facility] OFFICE [facility] 2021-11-07 2021-11-07 Outpatient Serjio COLMENARES [facility] [id number] Univers 11:30:00 11:30:00 EVELIN tafoya [facility] 2021-11-06 2021-11-06 Telephone [facility] 1.2.212.388 [id number] Univers 00:00:00 00:00:00 Kamran OTOOLE 350.1.13.10 ity of [place].2.686 [place] [id number] Ca camila FOLEY 059 [facility] 2021-11-03 2021-11-03 Outpatient Serjio COLMENARES [facility] [id number] Univers 11:30:00 12:12:13 EVELIN tafoya [facility] 2021-11-03 2021-11-03 Office [facility] 1.2.840.114 [id number] Univers 11:30:00 12:12:13 Visit [facility] 350.1.13.10 it y [facility] 4.2.7.2.686 Luis Armando as [place]?BLEA [phone] [facility] [address] OFFICE [facility] 2021-11-03 2021-11-03 Out[facility] [id number] Univers 11:30:00 11:30:00 EVELIN ity [facility] 2021-10-29 2021-10-29 Outpatient [facility] [id number] Univers 15:00:00 17:02:57 SENDIL bonnie [facility] 2021-10-29 2021-10-29 Office [facility] 1.2.840.114 [id number] Univers 15:00:00 17:02:57 Visit Sendteodoro OTOOLE 350.1.13.10 it[place] of [place] [phone] [address] 2021-10-29 2021-10-29 Outpatient [facility] [id number] Univers 15:00:00 17:02:57 SENDIL bonnie [facility] 2021-10-24 2021-10-24 Telephone [facility] 1.2.661.591 [id number] Univers 00:00:00 00:00:00 Sendil Aniya OTOOLE 350.1.13.10 it[place] of [place].2.[place] [id number] [facility] NAL 059 [facility] 2021-10-23 2021-10-23 Urgent [facility] 1.2.840.114 [id number] Univers 18:00:00 18:18:59 Care [facility] HEALTH 350.1.13.10 it y of [place] 4.2.7.2.686 Luis Armando as [place]?BLEA [phone] [facility] [address] OFFICE [facility] 2021-10-23 2021-10-23 Outpatient R [facility] [id number] Univers 18:00:00 18:00:00 LUZ MARIA tafoya [facility] 2021-10-23 2021-10-23 Jorge Del Real [facility] 1.2.840.114 [id number] Univers 00:00:00 00:00:00 Wondiful A HEALTH 350.1.13.10 ity of [place] 4.2.7.2.686 Luis Armando as [place]?BLEA [phone] [address] MEDICAL OFFICE [facility] 2021-10-09 2021-10-09 Outpatient R ELINOR JIMENEZ [facility] [id number] Univers 13:00:00 13:42:33 ELINOR JIMENEZ [facility] 2021-10-09 2021-10-09 Office [facility] 1.2.840.114 [id number] Univers 13:00:00 13:42:33 Visit Elinor [facility] 350.1.13.10 ity of [place] 4.2.7.2.686 [place] [facility] [phone] [address] DIABETES CLINIC 2021-10-09 2021-10-09 Outpatient R ELINOR JIMENEZ [facility] [id number] Univers 13:00:00 13:42:33 ELINOR JIMENEZ [facility] 2021-10-07 2021-10-07 Outpatient R DEDRA [facility] [id number] Univers 16:30:00 17:14:26 EVELIN tafoya [facility] 2021-10-07 2021-10-07 Office [facility] 1.2.840.114 [id number] Univers 16:30:00 17:14:26 Visit Evelin HEALTH 350.1.13.10 it y of [place] 4.2.7.2.686 Luis Armando as [place]?BLEA [phone] [address] MEDICAL OFFICE [facility] 2021-10-07 2021-10-07 Outpatient [facility] [id number] Univers 16:30:00 17:14:26 EVELIN tafoya [facility] 2021-10-07 2021-10-07 Outpatient R [facility] [id number] Univers 16:30:00 17:14:26 EVELIN ity of [facility] 2021-10-07 2021-10-07 Orders Doctor CAPONE 1.2.840.114 [id number] Univers 00:00:00 00:00:00 Only Unassigned, SONIDO 350.1.13.10 [facility] 4.2.7.2.686 Luis Armando as [phone] [address] 2021-09-30 2021-09-30 Refjay [facility]CIB[facility] 1.2.840.114 [id number] Univers 00:00:00 00:00:00 [facility] 350.1.13.10 i ty of [place] 4.2.7.2.686 Luis Armando as [place]?BLEA [phone] Ca camila KNEY [address] MEDICAL OFFICE BUILDING 2021-09-17 2021-09-17 Outpatient R RADIOLOGY [facility] [id number] Univers 00:00:00 00:00:00 ity of [facility] 2021-09-15 2021-09-15 Outpatient [facility] [id number] Univers 15:00:00 15:00:00 SENDIL ity [facility] 2021-09-10 2021-09-10 Outpatient [facility] [id number] Univers 14:00:00 15:05:34 SENDIL ity [facility] 2021-09-10 2021-09-10 Office [facility] 1.2.840.114 [id number] Univers 14:00:00 15:05:34 Visit Sendil Aniya OTOOLE 350.1.13.10 ity of [place]2.[place].2.686 [place] [phone] Ca camila [address] BUILDING 2021-09-10 2021-09-10 Outpatient R MELITA, [facility] [id number] Univers 14:00:00 15:05:34 SENDIL ity [facility] 2021-09-10 2021-09-10 Orders Doctor CAPONE 1.2.840.114 [id number] Univers 00:00:00 00:00:00 Only Unassigned, SONIDO 350.1.13.10 ity of [place] [facility] 4.2.7.2.686 Luis Armando as [phone] [facility] [address] 2021-09-08 2021-09-08 Urgent [facility] 1.2.840.114 [id number] Univers 10:20:00 10:40:00 Care [facility] 350.1.13.10 i ty of [place] 4.2.7.2.686 Luis Armando as [place]?BLEA [phone] Ca dical [address] MEDICAL OFFICE BUILDING 2021-09-08 2021-09-08 Outpatient R [facility] [id number] Univers 10:20:00 10:20:00 TAMERA tafoya o f [facility] 2021-09-08 2021-09-08 Letter Doctor LIBORIO 1.2.840.114 [id number] Univers 00:00:00 00:00:00 (Out) Unassigned, SONIDO 350.1.13.10 ity of [place] [facility] 4.2.7.2.686 Luis Armando as [phone] [facility] [address] 2021-09-08 2021-09-08 Letter Doctor LIBORIO 1.2.840.114 [id number] Univers 00:00:00 00:00:00 (Out) Unassigned, SONIDO 350.1.13.10 ity of [place] [facility] 4.2.7.2.686 Luis Armando as [phone] [facility] [address] 2021-09-01 2021-09-01 Transition EDENILSON [place] 1.2.840.114 [id number] Univers 00:00:00 00:00:[address] GOMEZ 350.1.13.10 ity of [place]2.7.2.686 [place] [id number] [facility] [address] 2021-08-29 2021-08-30 Outpatient U PONCHO NOBLES [facility] IGGY [id number] Univers 17:37:00 15:10:00 PONCHO NOBLES ity of [facility] 2021-08-29 2021-08-30 Emergency Jorge Geiger 1.2.840. 114 [id number] Univers 17:37:00 15:10:00 Poncho Nobles SONIDO 350.1. 13.10 ity [facility] 4.2.7.2.686 Luis Armando as [phone] [facility] [address] 2021-08-29 2021-08-29 Outpatient R KING LUKE [facility] [id number] Univers 17:00:00 17:00:00 NESTOR bonnie [facility] 2021-08-27 2021-08-27 Outpatient R ELINOR JIMENEZ [facility] [id number] Univers 15:00:00 15:00:00 ELINOR JIMENEZ [facility] 2021-08-27 2021-08-27 Swink Barbara TXANA 1.2.523.827 [id number] Univers 00:00:00 00:00:00 Elinorcristobal SOTO 350.1.13.10 ity [facility] 4.2.7.2.686 [facility] [phone] [facility] [address] [facility] 2021-08-26 2021-08-26 Outpatient R ELINOR JIMENEZ [facility] [id number] Univers 15:02:48 23:59:00 ELINOR JIMENEZ [facility] 2021-08-26 2021-08-26 [facility] Barbara [place]ANA 1.2.840.114 [id number] Univers 15:02:48 23:59:00 Encounter Elinor SOTO 350.1.13.10 [facility] [place] 4.2.7.2.686 [facility] [id number] [facility] [address] [facility] 2021-08-26 2021-08-26 Outpatient R ELINOR JIMENEZ [facility] [id number] Univers 14:30:00 14:30:00 ELINOR JIMENEZ [facility] 2021-08-12 2021-08-12 Outpatient R ELINOR JIMENEZ [facility] [id number] Univers 15:30:00 15:30:00 ELINOR JIMENEZ [facility] 2021-08-12 2021-08-12 Office Barbara TXANA 1.2.840.114 [id number] Univers 15:30:00 15:30:00 Visit Elinor ALYSAPEC 350.1.13.10 ity of [place] 4.2.7.2.686 [place] [phone] [address] DIABETES CLINIC 2021-08-12 2021-08-12 Outpatient R ELINOR JIMENEZ [facility] [id number] Univers 15:30:00 15:20:13 ELINOR JIMENEZ ity of [facility] 2021-08-05 2021-08-05 Outpatient R GT [facility] [id number] Univers 10:15:00 11:59:19 WONDIFUL ity o f [facility] 2021-08-05 2021-08-05 Office [facility] 1.2.840.114 [id number] Univers 10:15:00 11:59:19 Visit Wondiful A HEALTH 350.1.13.10 ity of [place] 4.2.7.2.686 Luis Armando as [place]?BLEA [phone] [facility] [address] [facility] OFFICE BUILDING 2021-08-05 2021-08-05 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, Ang - Db [facility] 1.2.840.1 14 [id number] Univers 11:15:00 11:30:00 Visit Dheeraj Del Realful A HEALTH 350.1.13.1 0 ity of [place] 4.2.7.2.686 Luis Armando as [place]?BLEA [phone] Ca camila MEDINA [address] MEDICAL OFFICE BUILDING 2021-08-04 2021-08-04 Outpatient R GISSELLE DURHAM [facility] [id number] Univers 11:00:00 13:30:03 ity of [facility] 2021-08-04 2021-08-04 Office Karlie Jim [facility] 1.2.840.114 [id number] Univers 11:00:00 13:30:03 Visit Gisselle [facility] HEALTH 350.1.13.10 ity of [place].2.686 [place] [phone] [address] OFFICE BUILDING 2021-08-04 2021-08-04 Outpatient R GISSELLE DURHAM [facility] [id number] Univers 11:00:00 11:00:00 ity of [facility] 2021-08-04 2021-08-04 Orders Doctor LIBORIO 1.2.840.114 [id number] Univers 00:00:00 00:00:00 Only Unassigned, SONIDO 350.1.13.10 ity of [place] [facility] 4.2.7.2.686 Luis Armando as [phone] [facility] [address] 2021-07-28 2021-07-28 Telephone [facility] 1.2.840.114 [id number] Univers 00:00:00 00:00:00 Wondiful A HEALTH 350.1.13.10 ity of [facility] 4.2.7.2.686 Luis Armando as [place]?BLEA [phone] [facility] [address] MEDICAL OFFICE [facility] 2021-06-30 2021-06-30 Emergency X [facility] ERT [id number] Univers 15:54:00 18:42:00 FLORENTIN ity of [facility] 2021-06-30 2021-06-30 [facility] 1.2.840.114 [id number] Univers 15:54:00 18:42:00 Florentin B [facility] 350.1.13.10 i ty of [place] 4.2.7.2.686 [place] [phone] [facility] [address] 2021-06-28 2021-06-28 Urgent Nurse, [facility] 1.2.840.114 [id number] Univers 19:00:00 19:20:00 Care Tamera Carter HEALTH 350.1.13.10 ity of [place] 4.2.7.2.686 Luis Armando as [place]?BLEA [phone] Ca veroniquebriseyda [facility] [address] MEDICAL OFFICE BUILDING 2021-06-28 2021-06-28 Outpatient R RAUL [facility] [id number] Univers 19:00:00 19:00:00 TAMERA tafoya o f [facility] 2021-06-28 2021-06-28 Outpatient R RAUL [facility] [id number] Univers 19:00:00 19:00:00 TAMERA hally o f [facility] 2021-06-23 2021-06-23 Outpatient R BASHIR [facility] [id number] Univers 20:40:00 20:56:03 HALEY ity of [facility] 2021-06-23 2021-06-23 Urgent Bashir [facility] 1.2.840.114 [id number] Univers 20:40:00 20:56:03 Care Haley HEALTH 350.1.13.10 it y of [facility] 4.2.7.2.686 Luis Armando as [place]?BLEA [phone] [address] MEDICAL OFFICE [facility] 2021-06-18 2021-06-18 Office Russell [facility] 1.2.058.131 [id number] Univers 10:20:00 10:40:00 Visit Shyanne Hilario [place] 350.1.13.10 ity of [place]2.[place].2.686 [place] [id number] Ca camila [facility] 085 [facility] 2021-06-18 2021-06-18 Outpatient R [facility]LL [facility] [id number] Univers 10:20:00 10:20:00 [facility] 2021-06-18 2021-06-18 Outpatient R [facility]LL [facility] [id number] Univers 10:20:00 10:20:00 [facility], [facility]y [facility] 2021-06-05 2021-06-05 Orders Doctor CAPONE 1.2.840.114 [id number] Univers 00:00:00 00:00:00 Only Unassigned, SONIDO 350.1.13.10 ity of [place] [facility] 4.2.7.2.686 Luis Armando as [phone] [address] 2021-06-03 2021-06-03 Refjay Del Real [facility] 1.2.840.114 [id number] Univers 00:00:00 00:00:00 Wondiful A HEALTH 350.1.13.10 ity of [facility] 4.2.7.2.686 Luis Armando as [place]?BLEA [phone] [address] MEDICAL OFFICE [facility] 2021-06-02 2021-06-02 Case Gt [facility] 1.2.840.114 [id number] Univers 00:00:00 00:00:00 Management Wondiful A HEALTH 350.1.13.10 ity of [facility] 4.2.7.2.686 Luis Armando as [place]?BLEA [id number] [address] OFFICE [facility] 2021-06-02 2021-06-02 Telephone Gt [facility] 1.2.840.114 [id number] Univers 00:00:00 00:00:00 Wondiful A HEALTH 350.1.13.10 ity of [facility] [id number] Luis Armando as [place]?BLEA [phone] [address] OFFICE [facility] 2021-05-22 2021-05-22 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 10 ity of [place] [id number] [place] [facility] [phone] [facility] [address] 2021-05-22 2021-05-22 Outpatient R SHYANNE BLAND [facility] [id number] Univers 13:00:00 13:00:00 SHYANNE BLAND ity [facility] 2021-05-22 2021-05-22 Outpatient R SHYANNE BLAND [facility] [id number] Univers 13:00:00 13:00:00 JONAS BLANDL ity [facility] 2021-05-22 2021-05-22 Orders Doctor CAPONE 1.2.840.114 [id number] Univers 00:00:00 00:00:00 Only Unassigned, SONIDO 350.1.13.10 ity of [facility] [id number] Luis Armando as [phone] [facility] [address] 2021-05-20 2021-05-20 Outpatient R [facility] [id number] Univers 13:00:00 13:00:00 ity of [facility] 2021-05-20 2021-05-20 Outpatient R RUSSELL SHYANNE [facility] [id number] Univers 13:00:00 13:00:00 SHYANNE BLAND ity of [facility] 2021-05-20 2021-05-20 Laboratory Only, Adc Test [facility] 1.2.840. 114 [id number] Univers 12:39:23 12:54:23 Only Shyanne Bland [place] 350.1.13. 10 [facility] [id number] [phone] [address] 2021-05-13 2021-05-13 [facility] 1.2.840.114 [id number] Univers 00:00:00 00:00:00 Wondiful A HEALTH 350.1.13.10 ity of [facility] [id number] Luis Armando as PROFESSIO [phone] [address] OFFICE BUILDING ONE 2021-05-12 2021-05-12 Alex Del Real [facility] 1.2.840.114 [id number] Univers 00:00:00 00:00:00 Management Wondiful A HEALTH 350.1.13.10 ity of [place] [id number] Luis Armando as [place]?BLEA [phone] [address] OFFICE BUILDING 2021-05-10 2021-05-10 Outpatient R DOUGLAS [facility] [id number] Univers 09:40:00 09:40:00 ACE ity [facility] 2021-05-10 2021-05-10 Urgent BarberHarjeet fitzpatrickramirez [facility] 1.2.840.114 [id number] Univers 09:17:19 09:37:19 Care Douglas, [facility] [id number] [facility] [id number] Luis Armando as [place]?BLEA [phone] [facility] [address] MEDICAL OFFICE BUILDING 2021-05-09 2021-05-09 [facility] 1.2.840.114 [id number] Univers 00:00:00 00:00:00 Wondiful A HEALTH 350.1.13.10 ity of [place] [id number] Luis Armando as [place]?BLEA [phone] Ca camila MEDINA [address] [facility] OFFICE BUILDING 2021-05-06 2021-05-06 [facility] 1.2.840.114 [id number] Univers 00:00:00 00:00:00 Wondiful A HEALTH 350.1.13.10 ity of [place] 4.2.7.2.686 Luis Armando as PROFESSIO [phone] Ca camila St[address] OFFICE [facility] ONE 2021-05-05 2021-05-05 [facility] [id number] Univers 16:15:00 23:59:[address] 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 1.2.840.1 [id number] Univers 16:21:47 16:38:22 Visit Nehal Del Real A HE[facility] 350.1.13.1 0 ity of [place] 4.2.7.2.686 Luis Armando as [place]ERSON?BLEA [phone] Ca camila MEDINA [address] [facility] OFFICE BUILDING 2021-05-05 2021-05-05 Outpatient R GT [facility] [id number] Univers 16:00:00 16:18:42 WONDIFUL ity o f [facility] 2021-05-05 2021-05-05 Office [facility] 1.2.840.114 [id number] Univers 15:17:21 16:18:42 Visit Wondiful A HEALTH 350.1.13.10 ity of [place] 4.2.7.2.686 Luis Armando as [place]?BLEA [phone] Ca camila [address] OFFICE BUILDING 2021-04-11 2021-04-11 Outpatient R GT [facility] [id number] Univers 15:45:00 15:45:00 WONDIFUL ity o f [facility] 2021-03-09 2021-03-09 [facility] 1.2.840.114 [id number] Univers 00:00:00 00:00:00 Wondiful A Health 350.1.13.10 ity of [place] 4.2.7.2.686 Luis Armando as Professio [phone] [facility] payton [address] [place] [address] Office Building [facility] 2021-03-07 2021-03-07 Telephone Gt [facility] 1.2.840.114 [id number] Univers 00:00:00 00:00:00 Wondiful A Health 350.1.13.10 ity of [place] 4.2.7.2.686 Luis Armando as [place]?Blea [phone] [facility] adam [address] [place] [address] Office Building 2021-02-12 2021-02-12 [facility] 1.2.840.114 [id number] Univers 00:00:00 00:00:00 Wondiful A Health 350.1.13.10 ity of [place] 4.2.7.2.686 Luis Armando as Professio [phone] [address] Office [facility] 2021-02-10 2021-02-10 Outpatient R KARLIE JIM [facility] [id number] Univers 10:00:00 10:00:00 ity of [facility] 2021-02-10 2021-02-10 [facility] 1.2.840.114 [id number] Univers 09:40:46 09:55:46 Visit Health 350.1.13.10 it y of [place] 4.2.7.2.686 [place] [phone] [address] Office Building 2021-01-20 2021-01-20 Outpatient R GT [facility] [id number] Univers 08:00:00 08:00:00 WONDIFUL ity o f [facility] 2021-01-17 2021-01-17 Outpatient R GT, [facility] [id number] Univers 10:30:00 10:30:00 WONDIFUL ity o f [facility] 2021-01-01 2021-01-01 Outpatient R AGUILA, [facility] [id number] Univers 16:20:00 16:20:00 CHUCKIE [facility] 2020-12-30 2020-12-30 Outpatient R SARMAD [facility] [id number] Univers 15:00:00 15:00:00 [facility] 2020-12-24 2020-12-24 Outpatient R HELENE, [facility] [id number] Univers 15:45:00 15:45:00 [facility] 2020-12-09 2020-12-09 Outpatient R ANYI, [facility] [id number] Univers 11:15:00 11:15:00 ANYI [facility] 2020-11-07 2020-11-07 Outpatient R [facility] [id number] Univers 13:00:00 13:00:00 [facility] 2020-11-05 2020-11-05 Outpatient R HELENE [facility] [id number] Univers 15:45:00 15:45:00 [facility] 2020-11-04 2020-11-04 Outpatient R SARMAD [facility] [id number] Univers 14:00:00 14:00:00 [facility] 2020-10-28 2020-10-28 Outpatient R SARMAD [facility] [id number] Univers 13:30:00 13:30:00 [facility] 2020-10-17 2020-10-17 Outpatient R GT [facility] [id number] Univers 10:45:00 10:45:00 WONDIFUL ity o f [facility] 2020-10-07 2020-10-07 Outpatient R SARMAD [facility] [id number] Univers 09:45:00 09:45:00 [facility] 2020-09-12 2020-09-12 Outpatient R SARMAD [facility] [id number] Univers 09:30:00 09:30:00 FRANKLYN ity [facility] 2020-09-10 2020-09-10 Outpatient R DEDRA [facility] [id number] Univers 16:15:00 16:15:00 EVELIN tafoya [facility] 2020-09-02 2020-09-02 Outpatient R GT, [facility] [id number] Univers 14:00:00 14:00:00 WONDIFUL ity o f [facility] 2020-08-30 2020-08-30 Outpatient R GT [facility] [id number] Univers 16:00:00 16:00:00 WONDIFUL ity o f [facility] 2020-08-20 2020-08-20 [facility] 1.2.840.114 [id number] 00:00:00 00:00:00 Wondiful A Health 350.1.13.10 [place] [id number] Professio [phone] nal 044 Office Building One 2020-08-05 2020-08-05 Outpatient R SARMAD [facility] [id number] Univers 14:00:00 14:00:00 [facility] 2020-07-23 2020-07-23 [facility]phone [facility] 1.2.840.114 [id number] 00:00:00 00:00:00 Wondiful A Health 350.1.13.10 [place] [id number] Professio [phone] nal 044 Office Building One 2020-07-19 2020-07-19 Outpatient R GT, [facility] [id number] Univers 11:00:00 11:00:00 WONDIFUL ity o f [facility] 2020-07-19 2020-07-19 [facility] 1.2.840.114 [id number] 08:01:11 10:21:48 Visit Wondiful [facility] 350.1.13.10 [place] 4.2.7.2.686 Professio [phone] nal 044 Office Building One 2020-07-19 2020-07-19 Outpatient R GT [facility] [id number] Univers 08:00:00 08:00:00 WONDIFUL ity o f [facility] 2020-05-10 2020-05-10 Outpatient R GT [facility] [id number] Univers 08:00:00 08:00:00 WONDIFUL ity o f [facility] 2020-05-09 2020-05-09 Outpatient R GT [facility] [id number] Univers 13:00:00 13:00:00 WONDIFUL ity o f [facility] 2020-04-29 2020-04-29 Outpatient R GT [facility] [id number] Univers 13:00:00 13:00:00 WONDIFUL ity o f [facility] 2020-04-19 2020-04-19 Outpatient R GT [facility] [id number] Univers 16:00:00 16:00:00 WONDIFUL ity o f [facility] 2020-04-16 2020-04-16 Outpatient R NARAYAN, [facility] [id number] Univers 13:30:00 13:30:00 MARY bonnie [facility] 2020-04-02 2020-04-02 Outpatient R HELENE, [facility] [id number] Univers 13:30:00 13:30:00 MARY itbonnie [facility] 2020-03-21 2020-03-21 Outpatient R [facility] [id number] Univers 13:20:00 13:20:00 ity [facility] 2020-03-13 2020-03-13 Outpatient R GRAMM, [facility] [id number] Univers 13:30:00 13:30:00 JEROME itbonnie [facility] 2020-03-05 2020-03-05 Outpatient R HELENE, [facility] [id number] Univers 14:00:00 14:00:00 MARY itbonnie [facility] 2020-01-29 2020-01-29 Outpatient R GT, [facility] [id number] Univers 10:00:00 10:00:00 WONDIFUL ity o f [facility] 2020-01-24 2020-01-24 Outpatient R ELAINE, [facility] [id number] Univers 13:00:00 13:00:00 HEATHER tafoya [facility] 2020-01-18 2020-01-18 Outpatient R ELAINE [facility] [id number] Univers 13:15:00 13:15:00 HEATHER tafoya [facility] 2020-01-15 2020-01-15 Outpatient R ELINOR JIMENEZ [facility] [id number] Univers 14:30:00 14:30:00 ELINOR JIMENEZ [facility] 2020-01-11 2020-01-11 Outpatient R ELAINE [facility] [id number] Univers 14:15:00 14::00 HEATHER bonnie [facility] 2019-12-19 2019-12-19 Outpatient R BIBI [facility] [id number] Univers 10:00:00 10:00:00 QIANGJUN ity o f [facility] 2019-12-13 2019-12-13 Outpatient R BARBARA ELINOR [facility] [id number] Univers 07:19:00 09:45:00 BARBARA, ELINOR michelet [facility] 2019-12-10 2019-12-10 Outpatient R AMADA [facility] [id number] Univers 16:00:00 16:00:00 ZARA michelet [facility] 2019-12-08 2019-12-08 Outpatient R GT [facility] [id number] Univers 16:15:00 16:15:00 WONDIFUL ity o f [facility] 2019-11-28 2019-11-28 Outpatient R ELINOR JIMENEZ [facility] [id number] Univers 13:30:00 13:30:00 ELINOR JIMENEZ michelet [facility] 2019-11-23 2019-11-23 Outpatient R HELENE [facility] [id number] Univers 10:30:00 10:30:00 MARY michelet [facility] 2019-11-06 2019-11-06 Outpatient R GT [facility] [id number] Univers 13:45:00 13:45:00 WONDIFUL ity o f [facility] 2019-10-31 2019-10-31 Outpatient R HELENE [facility] [id number] Univers 12:29:42 23:59:00 MARY tafoya [facility] 2019-10-24 2019-10-24 Outpatient Serjio NARAYAN [facility] [id number] Univers 13:30:00 13:30:00 MARY tafoya [facility] 2019-09-20 2019-09-20 Outpatient Serjio MCNAMARA [facility] [id number] Univers 13:30:00 13:30:00 ORINELAN tafoya [facility] 2019-09-18 2019-09-18 Outpatient Serjio GT, [facility] [id number] Univers 16:15:00 16:15:00 WONDIFUL ity o f [facility] 2019-09-12 2019-09-12 Outpatient Serjio NARAYAN [facility] [id number] Univers 14:45:00 14:45:00 MARY [facility] 2019-09-08 2019-09-08 [facility] [id number] Univers 11:15:00 11:15:00 WONDIFUL ity o f [facility] 2018-10-03 2018-10-03 Outpatient Serjio DEL REAL [facility] [id number] Univers 12:17:25 14:32:00 WONDIFUL ity o f [facility] Results Test Description Test Time Test Comments Results Result Comments Source PROSTATIC SPECIFIC ANTIGEN 2022-12-04 22:33:13 Test Item Value Reference Range Interpretation Comme nts PSA (test code = 7730114676) 1.78 ng/mL <=4.00 MARIO (test code = MARIO) Biotin has been reported to cause a negative bias, interpret results relative to patient's use of biotin. Lab Interpretation (test code = 30821-2) Normal [facility] METABOLIC PANEL ([id number])2022-12-04 22:06:27 Test Item Value Reference Range Interpretation Comments NA (test code = 139 mmol/L 135-145 8786453188) K (test code = 4.7 mmol/L 3.5-5.0 9619301721) CL (test code = 104 mmol/L 98-108 5655318676) CO2 TOTAL (test code = 25 mmol/L 23-31 1926838234) AGAP (test code = 10 2-16 1155207430) BUN (test code = 22 mg/dL 7-23 1928637138) GLUCOSE (test code = 154 mg/dL 70-110 H 4066168314) CREATININE (test code = 0.83 mg/dL 0.60-1.25 2294052039) TOTAL BILI (test code = 0.6 mg/dL 0.1-1.5 0695047310) CALCIUM (test code = 9.6 mg/dL 8.6-10.6 2657830609) T PROTEIN (test code = 6.8 g/dL 6.3-8.2 8210988137) ALBUMIN (test code = 4.2 g/dL 3.5-5.0 2202984035) ALK PHOS (test code = 56 U/L 34-122 1061090381) ALTv (test code = 22 U/L 5-50 2-6) AST(SGOT) (test code = 21 U/L 13-40 8864744232) eGFR (test code = 88.7 mL/min/1.73m2 0847923156) MARIO (test code = MARIO) Association of [...] tests). Lab Interpretation Abnormal (test code = 46575-4) [facility] Resources[facility]OSYLATED HEMOGLOBIN (A1C)2022-12-04 21:40:39 Test Item Value Reference Range Interpretation Comments HGB A1C (test code = 7.3 % 4.0-5.7 H 4548-4) MARIO (test code = MARIO) Reference RangesNormal: <5.7%Prediabetes: 5.7 - 6.4%Diabetes: > 6.5% Lab Interpretation (test Abnormal code = 19573-4) [facility] METABOLIC PANEL ([id number])2022-09-18 19:43:39 Test Item Value Reference Range Interpretation Comments NA (test code = 139 mmol/L 135-145 3006088288) K (test code = 4.8 mmol/L 3.5-5.0 7090728248) CL (test code = 104 mmol/L 98-108 0327822323) CO2 TOTAL (test code = 27 mmol/L 23-31 6881031990) AGAP (test code = 8 2-16 7208910157) BUN (test code = 20 mg/dL 7-23 3681440099) GLUCOSE (test code = 148 mg/dL 70-110 H 5749939127) CREATININE (test code = 0.84 mg/dL 0.60-1.25 9649929995) TOTAL BILI (test code = 0.7 mg/dL 0.1-1.7 2999801318) CALCIUM (test code = 9.2 mg/dL 8.6-10.6 7647270978) T PROTEIN (test code = 6.8 g/dL 6.3-8.2 0590803242) ALBUMIN (test code = 4.1 g/dL 3.5-5.0 3019959458) ALK PHOS (test code = 50 U/L 34-122 3724832215) ALTv (test code = 19 U/L 5-50 1742-6) AST(SGOT) (test code = 20 U/L 13-40 8703449478) eGFR (test code = 87.5 mL/min/1.73m2 9705193412) MARIO (test code = MARIO) Association of [...] tests). Lab Interpretation Abnormal (test code = 33212-3) [facility]. METABOLIC PANEL ([id number])2022-09-18 19:43:39 Test Item Value Reference Range Interpretation Comments NA (test code = 139 mmol/L 135-145 7291380382) K (test code = 4.8 mmol/L 3.5-5.0 2744438469) CL (test code = 104 mmol/L 98-108 0619902018) CO2 TOTAL (test code = 27 mmol/L -31 6628126401) AGAP (test code = 8 2-16 9026013028) BUN (test code = 20 mg/dL 7-23 2589499468) GLUCOSE (test code = 148 mg/dL 70-110 H 5498730514) CREATININE (test code = 0.84 mg/dL 0.60-1.25 0397105461) TOTAL BILI (test code = 0.7 mg/dL 0.1-1.3 8693888957) CALCIUM (test code = 9.2 mg/dL 8.6-10.6 2726236934) T PROTEIN (test code = 6.8 g/dL 6.3-8.2 4351052326) ALBUMIN (test code = 4.1 g/dL 3.5-5.0 6268496423) ALK PHOS (test code = 50 U/L 34-122 7589594668) ALTv (test code = 19 U/L 5-50 1742-6) AST(SGOT) (test code = 20 U/L 13-40 0201124992) eGFR (test code = 87.5 mL/min/1.73m2 0509673544) MARIO (test code = MARIO) Association of [...] tests). Lab Interpretation Abnormal (test code = 95979-1) [facility] WITH [id number] 19:10:29 Test Item Value Reference Range Interpretation Comments WBC (test code = 6.31 See_Comment [Automated message] 1990-2) The system [employer] generated this result transmitted ref erence range: 4.20 - 1 0.70 10*3/?L. The re ference range was not u sed to interpret this result as normal/abnor mal. RBC (test code = 4.93 See_Comment [Automated message] 529-8) The system [employer] generated this result transmitted ref erence range: [...] RDW-SD (test code 48.5 fL 38.5-51.6 = 21803-6) RDW-CV (test code 14.5 % 12.1-15.4 = 788-0) PLT (test code = 258 See_Comment [Automated message] 767-3) The system [employer] generated this result transmitted ref erence range: 150 - 32 8 10*3/?L. The re ference range was not u sed to interpret this result as normal/abnor mal. MPV (test code = 10.5 fL 9.8-13.0 90225-2) NRBC/100 WBC (test 0.0 See_Comment [Automat ed message] code = 5061650519) The [employer] which generated this result transmitted ref erence range: 0.0 - 10 .0 /100 WBCs. The refer ence range was not u sed to interpret this result as normal/abnor mal. NRBC x10^3 (test See_Comment [Automated message] code = 7394440764) The [employer] which generated this result transmitted ref erence range: 10*3/?L. The reference range was not used to interpr et this result as normal/abnormal . GRAN MAT (NEUT) % 58.2 % (test code = 770-8) IMM GRAN % (test 0.20 % code = 1351412839) LYMPH % (test code 26.0 % = 736-9) MONO % (test code 11.3 % = 5905-5) EOS % (test code = 3.3 % 713-8) BASO % (test code 1.0 % = 706-2) GRAN MAT 3.68 10*3/uL 1.99-6.95 x10^3(ANC) (test code = 7486986274) IMM GRAN x10^3 0.00-0.06 (test code = 6281622274) LYMPH x10^3 (test 1.64 10*3/uL 1.09-3.23 code = 731-0) MONO x10^3 (test 0.71 10*3/uL 0.36-1.02 code = 742-7) EOS x10^3 (test 0.21 10*3/uL 0.06-0.53 code = 711-2) BASO x10^3 (test 0.06 10*3/uL 0.01-0.09 code = 704-7) [facility] WITH [id number] 19:10:29 Test Item Value Reference Range Interpretation Comments WBC (test code = 6.31 See_Comment [Automated message] 9990-2) The system [employer] generated this result transmitted ref erence range: 4.20 - 1 0.70 10*3/?L. The re ference range was not u sed to interpret this result as normal/abnor mal. RBC (test code = 4.93 See_Comment [Automated message] 166-8) The system [employer] generated this result transmitted ref erence range: [...] RDW-SD (test code 48.5 fL 38.5-51.6 = 69940-2) RDW-CV (test code 14.5 % 12.1-15.4 = 788-0) PLT (test code = 258 See_Comment [Automated message] 777-3) The system whic h generated this result transmitted ref erence range: 150 - 32 8 10*3/?L. The re ference range was not u sed to interpret this result as normal/abnor mal. MPV (test code = 10.5 fL 9.8-13.0 59447-8) NRBC/100 WBC (test 0.0 See_Comment [Automat ed message] code = 6003002076) The syste m which generated this result transmitted ref erence range: 0.0 - 10 .0 /100 WBCs. The refer ence range was not u sed to interpret this result as normal/abnor mal. NRBC x10^3 (test See_Comment [Automated message] code = 7769952640) The syste m which generated this result transmitted ref erence range: 10*3/?L. The reference range was not used to interpr et this result as normal/abnormal . GRAN MAT (NEUT) % 58.2 % (test code = 770-8) IMM GRAN % (test 0.20 % code = 4192204139) LYMPH % (test code 26.0 % = 736-9) MONO % (test code 11.3 % = 5905-5) EOS % (test code = 3.3 % 713-8) BASO % (test code 1.0 % = 706-2) GRAN MAT 3.68 10*3/uL 1.99-6.95 x10^3(ANC) (test code = 0798265161) IMM GRAN x10^3 0.00-0.06 (test code = 2504458775) LYMPH x10^3 (test 1.64 10*3/uL 1.09-3.23 code = 731-0) MONO x10^3 (test 0.71 10*3/uL 0.36-1.02 code = 742-7) EOS x10^3 (test 0.21 10*3/uL 0.06-0.53 code = 711-2) BASO x10^3 (test 0.06 10*3/uL 0.01-0.09 code = 704-7) [facility] SARS-COV-2 ANTIGEN (BINAX NOW)2022-05-19 22:25:00 Test Item Value Reference Range Interpretation Comments POCT SARS-COV-2 ANTIGEN Not Detected Not Detected (test code = 24664-3) On board controls Yes acceptable with C Line (test code = 3574) MARIO (test code = MARIO) accurate development and interpretation of all internal controls Lab Interpretation Normal (test code = 13490-3) [facility] URINALYSIS, [id number] 18:16:00 Test Item Value Reference Range Interpretation [...] U APPEAR (test code = clear 3267) [facility] URINALYSIS, [id number] 18:16:00 Test Item Value Reference Range Interpretation [...] U APPEAR (test code = clear 3267) [facility] URINALYSIS, [id number] 13:34:00 Test Item Value Reference Range Interpretation [...] U APPEAR (test code = Clear 3267) [facility] URINALYSIS, [id number] 13:34:00 Test Item Value Reference Range Interpretation Comments POCT U SP GRAV (test code = 1.015 mg/dl 1.005-1.025 3255) POCT PH U (test code = 3254) 5.0 mg/dl 5-8 POCT U LEUK EST (test code = Negative Negative - Negative 3263) POCT U NIT (test code = 3262) Negative Negative - Negative POCT U PROT (test code = Negative Negative - Negative 325) POCT U GLU (test code = 3256) Negative Negative - Negative POCT U KETONE (test code = Negative Negative - Negative 3258) POCT U UROBILI (test code = 0.2 mg/dl 0.2-1 3260) POCT U BILI (test code = Negaitve Negative - Negative 326) POCT U BLD (test code = 3257) Negative Negative - Negative POCT U COLOR (test code = Yellow 3266) POCT U APPEAR (test code = Clear 326) [facility]
[2022-12-17] MEDS ORDERED: ONDANSETRON 4 MG/2 ML VIAL ONE (21:18)
[2022-12-17] MEDS ORDERED: NA CHLORIDE 0.9% 1,000 ML ONE (21:18)
[2022-12-17] MEDS ORDERED: FAMOTIDINE 20 MG/2 ML VIAL IV ONE (21:18)
[2022-12-17 21:44] LABS: Absolute Lymphocytes (CBC) 2.1 K/uL (0.7-4.9); Hematocrit 41.2 % (39.6-49.0); Lymphocytes % 24.2 % (15.3-44.8); MCV 90.6 fL (80-100); MPV 8.6 fL (7.6-11.3); RBC Red Blood Cell Count 4.54 M/uL (4.33-5.43)
[2022-12-17 22:03] LABS: Albumin 3.2 g/dL (3.4-5.0); Bilirubin Total 0.3 mg/dL (0.2-1.0); Potassium 3.6 mEq/L (3.5-5.1); Protein, Total 6.7 g/dL (6.4-8.2)
--- NOTE | 2022-12-18 00:04 | EDPHYS ---
Physician Documentation [facility] Name: Dave Moreland Age: 82 yrs Sex: Male : 1940 Arrival Date: 12/17/2022 Time: 20:48 Bed 18 Private MD: ED Physician Parrish Marquez HPI: 12/17 22:12 This 82 yrs old Male presents to ER via Wheelchair with complaints of Diarrhea. kb 22:12 The patient presents to the emergency department with diarrhea. Onset: The kb symptoms/episode began/occurred 2 day(s) ago. Possible causes: antibiotics. The symptoms are aggravated by nothing. The symptoms are alleviated by nothing. Associated signs and symptoms: Pertinent positives: abdominal pain, diarrhea. Severity of symptoms: At their worst the symptoms were moderate in the emergency department the symptoms are unchanged. The patient has experienced similar episodes in the past, a few times. The patient has not recently seen a physician. reports pt started doxycycline and metformin recently and has diarrhea for 2 days. States he is now having dizziness as well and has had problems with dehydration in the past. Historical: - Allergies: 21:05 Codeine; mb9 - Home Meds: 21:05 metformin 1,000 mg Oral Tablet, Extended Release 24 hr 2 times per day [Active]; mb9 lisinopril 20 mg Oral tablet [Active]; pantoprazole 40 mg oral tablet, delayed release (enteric coated) [Active]; escitalopram oxalate 10 mg oral tablet daily [Active]; finasteride 5 mg oral tablet [Active]; - PMHx: 21:05 Diabetes - NIDDM; GERD; Hyperlipidemia; Hypertension; Myocardial infarction; prostate mb9 problems; - PSHx: 21:05 Cholecystectomy; cardiac stent x 7; mb9 - Immunization history:: Adult Immunizations up to date. - Social history:: Smoking status: Patient denies any tobacco usage or history of. ROS: 22:12 Constitutional: Negative for fever, chills, and weight loss. kb 22:12 Abdomen/GI: Positive for abdominal pain, diarrhea. 22:12 All other systems are negative. Exam: 22:12 Constitutional: This is a well developed, well nourished patient who is awake, alert, kb and in no acute distress. Head/Face: Normocephalic, atraumatic. ENT: Moist Mucous membranes Cardiovascular: Regular rate and rhythm with a normal S1 and S2. No gallops, murmurs, or rubs. No pulse deficits. Respiratory: Respirations even and unlabored. No increased work of breathing. Talking in full sentences Skin: Warm, dry with normal turgor. Normal color. MS/ Extremity: Pulses equal, no cyanosis. Neurovascular intact. Full, normal range of motion. Neuro: Awake and alert, GCS 15, oriented to person, place, time, and situation. Moves all extremities. Normal gait. 22:12 Abdomen/GI: Inspection: abdomen appears normal, Bowel sounds: normal, Palpation: soft, in all quadrants, mild abdominal tenderness, in the right upper quadrant and left upper quadrant. 23:13 ECG was reviewed by the Attending Physician. kb Vital Signs: 21:03 BP 115 / 71; Pulse 74; Resp 18; Temp 98(O); Pulse Ox 100% on R/A; Weight 90.72 kg; mb9 Height 5 ft. 8 in. ; 21:55 BP 124 / 72 Supine; Pulse 67; Resp 20; Pulse Ox 99% on R/A; ll3 21:55 BP 135 / 70 Sitting; Pulse 71; Resp 18; Pulse Ox 99% on R/A; ll3 21:55 BP 117 / 63 Standing; Pulse 72; Resp 15; Pulse Ox 98% on R/A; ll3 23:40 BP 134 / 88; Pulse 74; Resp 18; Pulse Ox 100% on R/A; mb9 21:03 Body Mass Index 30.41 (90.72 kg, 172.72 cm) mb9 MDM: 20:54 Patient medically screened. kb 22:13 Differential diagnosis: Nonspecific abd pain, gastritis, pancreatitis, viral kb gastroenteritis, adverse reaction to medication. Data reviewed: vital signs, nurses notes. Historians other than the Patient: Spouse/Significant Other: . 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 ED course: Discussed diagnostic results with pt. Pt states he has a history of a.fib. States he is ready to go home. Will make follow up appts with Dr Carrion and his PCP. Educated on return precautions. 12/17 21:41 Order name: Comprehensive Metabolic Panel; Complete Time: 22:11 EDMS 12/17 21:41 Order name: Troponin High Sensitivity; Complete Time: 22:11 EDMS 12/17 21:41 Order name: Lipase; Complete Time: 22:11 EDMS 12/17 21:41 Order name: CBC with Automated Diff; Complete Time: 22:00 EDMS 12/17 21:03 Order name: CT Abd/Pelvis - IV Contrast Only kb 12/17 21:03 Order name: EKG; Complete Time: 21:53 kb 12/17 21:03 Order name: IV Saline Lock; Complete Time: 21:27 kb 12/17 21:03 Order name: Labs collected and sent; Complete Time: 21:27 kb 12/17 21:03 Order name: EKG - Nurse/Tech; Complete Time: 21:27 kb 12/17 21:03 Order name: Orthostatics; Complete Time: 21:56 kb EC/29 23:13 Rate is 72 beats/min. Rhythm is irregularly irregular. Left axis deviation noted. QRS kb interval is normal at 94 msec. QT interval is normal at 429 msec. Administered Medications: 21:25 Drug: Ondansetron IVP 4 mg Route: IVP; Site: right forearm; mb9 21:27 Drug: NS 0.9% IV 1000 ml Route: IV; Rate: 1 bolus; Site: right forearm; mb9 21:28 Drug: Famotidine IVP 20 mg Route: IVP; Site: right forearm; mb9 Disposition: 12/18 00:18 Co-signature as Attending Physician, Parrish Marquez MD I agree with the assessment sp4 and plan of care. I reviewed the patient's care provided by the Advanced Practice Provider and agree with the diagnosis and treatment plan. Disposition Summary: 12/18/22 00:04 Discharge Ordered Location: Home kb Condition: Stable kb Diagnosis - Diarrhea, unspecified kb - Dizziness and giddiness kb Followup: kb - With: Emergency Department - When: As needed - Reason: Worsening of condition Followup: kb - With: Private Physician - When: 2 - 3 days - Reason: Recheck today's complaints, Continuance of care, Re-evaluation by your physician Discharge Instructions: - Discharge Summary Sheet kb - Food Choices to Help Relieve Diarrhea, Adult kb - Diarrhea, Adult, [id number] kb - Dizziness, [id number] kb Forms: - Medication Reconciliation Form kb - Thank You Letter kb - Antibiotic Education kb - Prescription Opioid Use kb - [email or web address] kb Signatures: Dispatcher [employer] Khushbu Mehta, Kyra Staton RN RN mb9 Parrish Marquez MD MD sp4
--- NOTE | 2022-12-18 00:04 | ER ---
Nurse's Notes [facility] Name: Dave Moreland Age: 82 yrs Sex: Male : 1940 Arrival Date: 12/17/2022 Time: 20:48 Bed 18 Private MD: Diagnosis: Diarrhea, unspecified;Dizziness and giddiness Presentation: 12/17 21:03 Chief complaint: Patient states: "Diarrhea and dizziness for 2 days after starting mb9 Doxycycline 100 mg for skin bumps. My stomach is tender as well". Coronavirus screen: Vaccine status: Patient reports receiving the 2nd dose of the covid vaccine. Ebola Screen: No symptoms or risks identified at this time. Initial Sepsis Screen: Does the patient meet any 2 criteria? No. Patient's initial sepsis screen is negative. Does the patient have a suspected source of infection? No. Patient's initial sepsis screen is negative. Risk Assessment: Do you want to hurt yourself or someone else? Patient reports no desire to harm self or others. Onset of symptoms was December 17, 2022. 21:03 Method Of Arrival: Wheelchair mb9 21:03 Acuity: CLARK 3 mb9 Triage Assessment: 21:07 General: Appears in no apparent distress. Behavior is calm, cooperative, appropriate mb9 for age. Pain: Complains of pain in abdomen. EENT: No signs and/or symptoms were reported regarding the EENT system. Neuro: Montano Agitation-Sedation Scale (RASS): 0 - Alert and Calm Level of Consciousness is awake, alert, obeys commands, Oriented to person, place, time, situation, Appropriate for age. Neuro: Reports dizziness. Cardiovascular: Patient's skin is warm and dry. Respiratory: Airway is patent Respiratory effort is even, unlabored, Respiratory pattern is regular, symmetrical. GI: Abdomen is round non-distended, Bowel sounds present X 4 quads. Abd is soft Abdomen is tender to palpation X 4 quads. Reports diarrhea. Derm: Skin is pink, warm \\T\\ dry. Musculoskeletal: Range of motion: intact in all extremities. Historical: - Allergies: 21:05 Codeine; mb9 - Home Meds: 21:05 metformin 1,000 mg Oral Tablet, Extended Release 24 hr 2 times per day [Active]; mb9 lisinopril 20 mg Oral tablet [Active]; pantoprazole 40 mg oral tablet, delayed release (enteric coated) [Active]; escitalopram oxalate 10 mg oral tablet daily [Active]; finasteride 5 mg oral tablet [Active]; - PMHx: 21:05 Diabetes - NIDDM; GERD; Hyperlipidemia; Hypertension; Myocardial infarction; prostate mb9 problems; - PSHx: 21:05 Cholecystectomy; cardiac stent x 7; mb9 - Immunization history:: Adult Immunizations up to date. - Social history:: Smoking status: Patient denies any tobacco usage or history of. Screenin:33 [facility] ED Fall Risk Assessment (Adult) History of falling in the last 3 months, mb9 including since admission No falls in past 3 months (0 pts) Confusion or Disorientation No (0 pts) Intoxicated or Sedated No (0 pts) Impaired Gait No (0 pts) Mobility Assist Device Used No (0 pt) Altered Elimination No (0 pt) Score/Fall Risk Level 0 - 2 = Low Risk Oriented to surroundings, Maintained a safe environment, Educated pt \\T\\ family on fall prevention, incl call for assistance when getting out of bed. Abuse screen: Denies threats or abuse. Nutritional screening: No deficits noted. Tuberculosis screening: No symptoms or risk factors identified. Assessment: 21:28 Reassessment: see triage assessment. mb9 22:30 Reassessment: No changes from previously documented assessment. Patient and/or family mb9 updated on plan of care and expected duration. Pain level reassessed. Patient is alert, oriented x 3, equal unlabored respirations, skin warm/dry/pink. 23:30 Reassessment: No changes from previously documented assessment. Patient and/or family mb9 updated on plan of care and expected duration. Pain level reassessed. Patient is alert, oriented x 3, equal unlabored respirations, skin warm/dry/pink. Vital Signs: 21:03 BP 115 / 71; Pulse 74; Resp 18; Temp 98(O); Pulse Ox 100% on R/A; Weight 90.72 kg; mb9 Height 5 ft. 8 in. ; 21:55 BP 124 / 72 Supine; Pulse 67; Resp 20; Pulse Ox 99% on R/A; ll3 21:55 BP 135 / 70 Sitting; Pulse 71; Resp 18; Pulse Ox 99% on R/A; ll3 21:55 BP 117 / 63 Standing; Pulse 72; Resp 15; Pulse Ox 98% on R/A; ll3 23:40 BP 134 / 88; Pulse 74; Resp 18; Pulse Ox 100% on R/A; mb9 21:03 Body Mass Index 30.41 (90.72 kg, 172.72 cm) mb9 ED Course: 20:51 Patient arrived in ED. ag3 20:54 [facility]ush[facility] Man [facility]C [facility] kb 20:54 Parrish Marquez MD is Attending Physician. kb 20:55 Kyra Haque RN is Primary Nurse. mb9 20:55 Arm band placed on. mb9 21:05 Triage completed. mb9 21:28 EKG done, by ED staff, reviewed by Khushbu BETANCOURT. Inserted saline lock: 22 mb9 gauge in right forearm, using aseptic technique. 21:33 Placed in gown. Bed in low position. Call light in reach. Side rails up X 1. Client mb9 placed on continuous cardiac and pulse oximetry monitoring. NIBP monitoring applied. manager monitoring on. 21:33 No provider procedures requiring assistance completed. mb9 21:43 Comprehensive Metabolic Panel Sent. mb9 21:43 Troponin High Sensitivity Sent. mb9 21:43 Lipase Sent. mb9 21:43 CBC with Automated Diff Sent. mb9 22:56 CT Abd/Pelvis - IV Contrast Only In Process Unspecified. EDMS 12/18 00:27 IV discontinued, intact, bleeding controlled, No redness/swelling at site. Pressure lg3 dressing applied. Administered Medications: 12/17 21:25 Drug: Ondansetron IVP 4 mg Route: IVP; Site: right forearm; mb9 21:27 Drug: NS 0.9% IV 1000 ml Route: IV; Rate: 1 bolus; Site: right forearm; mb9 21:28 Drug: Famotidine IVP 20 mg Route: IVP; Site: right forearm; mb9 Medication: 21:32 VIS not applicable for this client. mb9 Outcome: 12/18 00:04 Discharge ordered by . kb 00:26 Discharged to home ambulatory, with significant other. lg3 00:26 Condition: stable 00:26 Discharge instructions given to patient, significant other, Instructed on discharge instructions, follow up and referral plans. Demonstrated understanding of instructions, follow-up care. 00:27 Patient left the ED. lg3 Signatures: Dispatcher [employer] Khushbu Mehta, CASING SPLITTER-C CASING SPLITTER-Ckb Kristine Grissom3 Ania Handy, RN RN lg3 Sean Corey RN RN ll3 Garland, Kyra Laguerre, RN RN mb9
[2022-12-18 00:47] VITALS: TEMP 98
[2022-12-18 00:52] VITALS: BP 134/88; O2SAT 100
--- NOTE | 2022-12-18 08:48 | EKG ---
Test Date: 2022-12-17 Test Time: 21:14:16 Auto Service Advisor: MB MEASUREMENT RESULTS: Intervals: Rate: 72 [place]: QRSD: 98 QT: 398 QTc: 435 [place]: P: [place]: QRS: -62 T: 50 INTERPRETIVE STATEMENTS: Atrial fibrillation with a competing junctional pacemaker Left axis deviation Incomplete right bundle branch block Abnormal ECG Compared to ECG 11/12/2022 18:46:35 Incomplete right bundle-branch block now present Electronically Signed On 12-18-22 08:47:28 CDT by Juan Manuel Cruz
--- NOTE | 2022-12-18 08:48 | EKG ---
Test Date: 2022-12-17 Test Time: 21:14:43 Ict Business Development Manager: MB MEASUREMENT RESULTS: Intervals: Rate: 72 [place]: QRSD: 94 QT: 392 QTc: 429 [place]: P: [place]: QRS: -61 T: 49 INTERPRETIVE STATEMENTS: Atrial fibrillation Left axis deviation Incomplete right bundle branch block Inferior infarct, age undetermined Abnormal ECG Compared to ECG 12/17/2022 21:14:16 Myocardial infarct finding now present Electronically Signed On 12-18-22 08:47:27 CDT by Juan Manuel Cruz
--- NOTE | 2022-12-18 12:00 | RAD REPORT ---
EXAM DESCRIPTION: CT - Abdomen Pelvis W Contrast - 12/18/2022 6:02 am CLINICAL HISTORY: The patient is 82 years old and is Male; ABD PAIN, diarrhea, abdomen tenderness TECHNIQUE: Axial computed tomography images of the abdomen and pelvis with intravenous contrast. S agittal and coronal reformatted images were created and reviewed. This CT exam was performed using one or more of the following dose reduction techniques: automated exposure control, adjustment of t he mA and/or kV according to patient size, and/or use of iterative reconstruction technique. COMPARISON: No relevant prior studies available. FINDINGS: LUNG BASES: Unremarkable. No mass. No consolidation. ABDOMEN: LIVER: Unremarkable. No mass. GALLBLADDER AND BILE DUCTS: Surgical clips are present in the right upper quadrant, consistent wi th previous cholecystectomy. PANCREAS: The pancreas is atrophic. SPLEEN: Unremarkable. ADRENALS: Unremarkable. No mass. 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 The kidneys enhance symmetrically. Ther e is no hydronephrosis or hydroureter of either kidney. No obstructing renal or ureteral calculus is seen. STOMACH AND BOWEL: The stomach is well distended with food contents. The small bowel is relativel y normal in caliber. Stool is present throughout colon. There is no mucosal thickening or evidence of obstruction. PELVIS: APPENDIX: The appendix is normal in caliber without surrounding inflammation. BLADDER: The bladder is moderately distended. REPRODUCTIVE: The prostate is enlarged and heterogeneous. ABDOMEN and PELVIS: INTRAPERITONEAL SPACE: Unremarkable. No free air. No significant fluid collection. BONES/JOINTS: No acute fracture. SOFT TISSUES: The soft tissues are normal. VASCULATURE: Unremarkable. No abdominal aortic aneurysm. LYMPH NODES: Unremarkable. No enlarged lymph nodes. IMPRESSION: 1. Enlarged heterogeneous prostate. Correlation with PSA and physical exam is recommen ded. 2. Moderate stool burden without obstruction. Normal appendix. Electronically signed by: Mable Valentin MD 12/17/2022 11:23 PM CDT Due to temporary technical issues with the PACS/Fluency reporting system, reports are being signed by the in house radiologist without review as a courtesy to ensure prompt reporting. The interpreting r adiologist is fully responsible for the content of the report.
== END 2022-12-18 00:27 | disposition home or self-care (01) ==
LOC: ER 20:48
DX: R19.7 Diarrhea, unspecified (principal); I10 Essential (primary) hypertension; E78.5 Hyperlipidemia, unspecified; E11.9 Type 2 diabetes mellitus without complications; Z95.818 Presence of other cardiac implants and grafts; Z88.5 Allergy status to narcotic agent
CPT/HCPCS: 93005 ×2; 85025; 36415; 84484; 83690; 80053; 74177; 96375; 96374; 99285; Q9967; J2405; J7030

== ENCOUNTER 2023-02-14 08:51 | Emergency (ER) | payer OTHER ==
--- OUTSIDE RECORDS SUMMARY | 2023-02-14 09:04 | XMS REPORT | Continuity of Care Document ---
:1940 Author Organization [facility] t Address [address] [place] [address] [address] [place] [address] Care Team Providers Name Role Phone EVELIN COLMENARES Primary Care Physician Unavailable FRANKLYN BAÑUELOS Attending Clinician Unavailable KAMRAN HUA Attending Clinician Unavailable MARY NARAYAN Attending Clinician Unavailable BEBE PAINTING Attending Clinician Unavailable EVELIN COLMENARES Attending Clinician Unavailable MEET LUDWIG Attending Clinician Unavailable MEET LUDWIG Attending Clinician Unavailable ALCON OLIVA Attending Clinician Unavailable Alcon Oliva DO Attending Clinician Evelin Wyatt Attending Clinician Franklyn Bañuelos MD Attending Clinician ROWDY ENRIQUE Attending Clinician Unavailable Rowdy Germain Attending Clinician Unknown, Attending Attending Clinician Unavailable Lab, Ang - Db Attending Clinician Unavailable Doctor Unassigned, [place] Attending Clinician Unavailable Jayden Horan LVN Attending Clinician Unavailable Keon Scherer MD Attending Clinician JAVIER MORRIS Attending Clinician Unavailable Javier Valentine Attending Clinician Kamran Hua MD.H. Attending Clinician Kenn Christine MD Attending Clinician Po, [facility] Lab Main Attending Clinician Unavailable FADUMO MCNAMARA Attending Clinician Unavailable Fadumo Mcnamara MD Attending Clinician HALEY CAMEJO Attending Clinician Unavailable Haley Camejo MD Attending Clinician Nehal Del Real MD Attending Clinician , [facility] Surg Spec Procedure Attending Clinician Unavailable Nurse, [facility] Surgery Gu Attending Clinician Unavailable Elinor Jimenez MD Attending Clinician ELINOR JIMENEZ Attending Clinician Unavailable ELINOR JIMENEZ Attending Clinician Unavailable GEE BLOUNT Attending Clinician Unavailable GEE BLOUNT Attending Clinician Unavailable Gee Blount MD Attending Clinician Ebrahim Luz Maria ORMERO Attending Clinician EBLUZ MARIA MORALES Attending Clinician Unavailable Raul SPLICER MACHINE OPERATORTamera Fulton Attending Clinician RADIOLOGY Attending Clinician Unavailable TAMERA ACEVEDO Attending Clinician Unavailable Km Newton RN Attending Clinician Unavailable PONCHO NOBLES Attending Clinician Unavailable PONCHO NOBLES Attending Clinician Unavailable Fely HER, K Felisha Attending Clinician NESTOR SALDAÑA III Attending Clinician Unavailable NEHAL DEL REAL Attending Clinician Unavailable GISSELLE DURHAM Attending Clinician Unavailable Karlie Jim MD Attending Clinician ALANISFLORENTIN MIXON B Attending Clinician Unavailable Alanis SPLICER MACHINE OPERATOR, Florentin B Attending Clinician [facility] Attending Clinician Unavailable Shyanne Bland MD Attending Clinician SHYANNE BLAND Attending Clinician Unavailable SHYANNE BLAND Attending Clinician Unavailable [facility], [facility] Sleep Lab Attending Clinician Unavailable Only, [facility] Test Attending Clinician Unavailable ACE COLE Attending Clinician Unavailable Douglas SPLICER MACHINE OPERATOR, Ace Attending Clinician KARLIE JIM Attending Clinician Unavailable [...] Expiration Date Saloni gill MEDICARE PART A [id number] 2004 \\T\\ B 00:00:00 [employer] [id number] 2016 00:00:00 Problems Condition Condition Condition Status Onset Resolution Last Treating Co mments Source Name Details Category Date Date Treatment Clinician Date Urinary Urinary Disease Active Overview: Univ ers frequency frequency 4-11 Formattin i ty of 00:00: g of this [place] 00 note Medical might be Branch different from the original. Added automatic ally from request for surgery [id number] Benign Benign Disease Active Overview: Univer s prostatic prostatic 4-11 Formattin i ty of hyperplasi hyperplasi 00:00: g of this [place] a with a with 00 note Medical lower lower might be Branch urinary urinary different tract tract from the symptoms, symptoms, original. symptom symptom Added details details automatic unspecifie unspecifie ally from d d request for surgery [id number] Dyslipidem Dyslipidem Disease Active Overview : Univers ia ia 11-18 Formattin ity of 00:00: g of this [place] 00 note Medical might be Branch different from the original. Added automatic ally from request for surgery [id number] RAZO RAZO Disease Active Overview: Univer s (dyspnea (dyspnea 11-18 Formattin ity of on on 00:00: g of this [place] exertion) exertion) 00 note Medi monika might be Branch different from the original. Added automatic ally from request for surgery [id number] Atypical Atypical Disease Active Overview: Un nyla chest pain chest pain 11-18 Formattin ity of 00:00: g of this [place] 00 note Medical might be Branch different from the original. Added automatic ally from request for surgery [id number] Anginal Anginal Disease Active Overview: Univ ers equivalent equivalent 11-18 Formattin ity of 00:00: g of this [place] 00 note Medical might be Branch different from the original. Added automatic ally from request for surgery [id number] Acute Acute Disease Active Univers cardioembo cardioembo 3-11 it y of lic stroke lic stroke 00[place]: [place] 00 [place] PRITESH PRITESH Disease Active 2020-06 Univers (obstructi (obstructi 2-13 it y of ve sleep ve sleep 00:00: [place] apnea) apnea) 00 Medical Branch Iron Iron Disease Active 2020-06 Univers deficiency deficiency -22 it y of 00:00: [place] 00 Medical [...] Added automatic ally from request for surgery [id number] Acute Acute Disease Active Univers pancreatit pancreatit 3-01 it y of is is 00:00: [place] 00 Medical Branch COVID-19 COVID-19 Disease Active Unive rs 2-01 ity of 00:00: [place] 00 Medical Branch Greater Greater Disease Active Overview: Univ ers trochanter trochanter 6 Formattin ity of ic ic 00:00: g of this [place] bursitis bursitis 00 note Medica l of left of left might be Branch hip hip different from the original. Added automatic ally from request for surgery [id number] SI SI Disease Active Overview: Univer s (sacroilia (sacroilia 11-27 Formattin ity of c) joint c) joint 00:00: g of this [place] Arm[place] as dysfunctio dysfunctio 00 note Me dical n n might be Branch different from the original. Added automatic ally from request for surgery [id number] Onychomyco Onychomyco Disease Active 2018-06 U nivers sis of sis of 2-15 ity of toenail toenail 00:00: [place] [facility] Lumbar Lumbar Disease Active Univers spondylosi spondylosi 7- it y of s s 00:00: [place] [facility] Degenerati Degenerati Disease Active U nivers on of on of 6- ity of lumbar lumbar 00:00: [place] interverte interverte 00 Me dical bral disc bral disc Bran ch Lumbar Lumbar Disease Active Univers radiculopa radiculopa 6-03 it y of thy thy 00:00: [place] [facility] Myofascial Myofascial Disease Active U nivers pain pain 6-03 ity of 00:00: [place] [facility] Elevated Elevated Disease Active Unive rs sed rate sed rate 4-17 ity of 00:00: [place] [facility] Low Low Disease Active Univers ferritin ferritin 3-27 ity of 00:00: [place] [facility] Type 2 Type 2 Disease Active 2019 Univers diabetes diabetes 1-17 ity of mellitus mellitus 00:00: [place] with with 00 Medical complicati complicati Br anch on, on, without without long-term long-term current current use of use of insulin insulin Bradycardi Bradycardi Disease Active 2017-06 U nivers a a 2-26 ity of 00:00: [place] [facility] Weakness Weakness Disease Active 2017-06 Unive rs 2-26 ity of 00:00: [place] [facility] Dizziness Dizziness Disease Active 2017-06 Uni vers 2-26 ity of 00:00: [place] [facility] Coronary Coronary Disease Active 2017-06 Unive rs artery artery 2-26 ity of disease disease 00:00: [place] involving involving 00 Medi monika [place] Branch coronary coronary artery of artery of [place] heart heart without without angina angina pectoris pectoris Essential Essential Disease Active 2017-06 Uni vers hypertensi hypertensi 2- it y of on on 00:00: [place] 00 Medical Branch PAF PAF Disease Active 2017-06 Univers (paroxysma (paroxysma 08-16 it y of l atrial l atrial 00:00: [place] fibrillati fibrillati 00 Me dical on) on) Branch Coronary Coronary Disease Active 2017-06 Unive rs artery artery 2 ity of disease disease 00:00: [place] involving involving 00 Medi monika [place] Branch coronary coronary artery of artery of [place] heart heart without without angina angina pectoris pectoris Gastritis Gastritis Disease Active Uni vers 5-25 ity of 00:00: [place] 00 Medical Branch Chronic Chronic Disease Active Univers fatigue fatigue 4-27 ity of 00:00: [place] 00 Medical Branch Colon Colon Disease Active Univers polyps polyps 1-05 ity of 00:00: [place] 00 Medical Branch Fatty Fatty Disease Active Univers liver liver 1-05 ity of 00:00: Medical Branch Migraines Migraines Disease Active Uni [...] Smoker Smokeless Tobacco Never Used Diabetic Health Mainlorin ce Status Date Diabetic Eye Exam Overdue [...] g of this [place] as of note Medical unspecifie unspecifie might be Branch d carotid d carotid different artery artery from the original. Overview: Converted from [facility] y:Descrip tion - CAROTID ARTERY STENOSIS Anxiety Anxiety Disease Active Univers ity of [place] [facility] Allergies, Adverse Reactions, Alerts Allergy [...] Active Anxiety Unive rs lucia ty to -09 ity of adverse 00:00: [place] reaction 00 [...] Severe U nivers Hmg-Coa ty to comments 2- myalgia ity of [place] adverse 00:00: [place] e reaction Medical Inhibito s Branch rs Codeine Propensi Active Rash 2017-06 Univers ty to 08-16 ity of adverse 00:00: [place] reaction 00 [...] LOZIN INGREDI 01-18 ity of 00:00: [place] [address] [place] [address] Social History Social Habit Start Date Stop Date Quantity Comments Source Gender identity [facility] intake 2023-01-29 2023-01-29 Current University of 00:00:00 00:00:00 non-drinker of [facility] alcohol Branch (finding) Exposure to 2022-09-19 2022-09-29 Not sure [facility] SARS-CoV-2 (event) 00:00:00 10:55:00 [facility] History of Social 2022-09-17 2022-09-17 Univers ity of function 00:00:00 00:00:00 [facility] Tobacco use and 2021-12-30 2021-12-30 Smokeless Universit y of exposure 00:00:00 00:00:00 tobacco non-user [facility] Sex Assigned At [birth year] Universit y of 00:00:00 00:00:00 [facility] Smoking Status Start Date Stop Date Source Never smoked tobacco [facility] Medications Ordered Filled Start Stop Current Ordering Indication Dosage Frequency Signature Comments Components Source Medication Medication Date Date Medication? Clinician (SIG) Name Name HYDROcodone 2022- No 1{tbl} 1 tablet, Univers -acetaminop 02-08 Oral, ity of hen (NORCO 21:30: 21:16 ONCE, 1 [place] as 5) 5-325 mg 00 :00 dose, On [facility] tablet 1 [facility] tablet 02/08/23 at 1630, PADMA methylPREDN Yes [id number] Take by Univers ISolone 4 02-08 mouth ity of mg tablets 00:00: [place]-INSTRU [place] 00 CTIONS. Medical follow Branch package directions methocarbam 2022- Yes [id number] 500mg Take 1 Univers oL 500 mg 02-08 tablet by ity of tablet 00:00: 04:59 mouth in [place] 00 :00 the Medical morning Branch and 1 tablet at noon and 1 tablet in the evening. Do all this for 5 days. CBD-KINGS 2022- No Apply to Uni vers WITH 01-29 area(s). ity of LIDOCAINE 16:07: 00:00 [place] TOPICAL 42 :00 Medical Branch clopidogreL 2022- No Take 1 Uni vers 75 mg 01-29 tablet ity of tablet 16:07: 00:00 every day [place] 42 :00 by oral Medical route. Branch gabapentin 2022- No gabapentin Univers 300 mg 01-29 300 mg ity of capsule 16:07: 00:00 capsule [place] 42 :00 TAKE ONE Medical CAPSULE BY Branch MOUTH TWICE A DAY FOR 5 DAYS,THEN 3 TIMES A DAY tamsulosin 2022- No Take 1 Univ ers 0.4 mg 24 01-29 capsule ity of hr capsule 16:07: 00:00 every day [place] 42 :00 by oral Medical route. Branch metFORMIN 2022- No Take 1 Unive rs 500 mg 01-29 tablet ity of tablet 16:07: 00:00 twice a [place] 42 :00 day by Medical oral Branch route. CBD-KINGS 2022- No Apply to Uni vers WITH 01-29 area(s). ity of LIDOCAINE 16:07: 00:00 [place] TOPICAL 42 :00 Medical Branch clopidogreL 2022- No Take 1 Uni vers 75 mg 01-29 tablet ity of tablet 16:07: 00:00 every day [place] 42 :00 by oral Medical route. Branch gabapentin 2022- No gabapentin Univers 300 mg 01-29 300 mg ity of capsule 16:07: 00:00 capsule [place] 42 :00 TAKE ONE Medical CAPSULE BY Branch MOUTH TWICE A DAY FOR 5 DAYS,THEN 3 TIMES A DAY tamsulosin 2022- No Take 1 Univ ers 0.4 mg 24 01-29 capsule ity of hr capsule 16:07: 00:00 every day [place] 42 :00 by oral Medical route. Branch metFORMIN 2022- No Take 1 Unive rs 500 mg 01-29 tablet ity of tablet 16:07: 00:00 twice a [place] 42 :00 day by Medical oral Branch route. amitriptyli Yes [id number] 25mg Take 1 Univers ne 25 mg 8-11 tablet by ity of tablet 00:00: mouth at [place] 00 bedtime. Medical Branch amitriptyli Yes [id number] 25mg Take 1 Univers ne 25 mg 8-11 tablet by ity of tablet 00:00: mouth at [place] 00 bedtime. Medical Branch amitriptyli Yes [id number] 25mg Take 1 Univers ne 25 mg 8-11 tablet by ity of tablet 00:00: mouth at [place] 00 bedtime. Medical Branch ofloxacin Yes 2[drp] Place 2 Uni vers 0.3 % otic 8-09 Drops in ity o f drops 00:00: left ear [place] 00 in the Medical morning Branch and 2 Drops in the evening. ofloxacin Yes 2[drp] Place 2 Uni vers 0.3 % otic 8-09 Drops in ity o f drops 00:00: left ear [place] 00 in the Medical morning Branch and 2 Drops in the evening. ofloxacin Yes 2[drp] Place 2 Uni vers 0.3 % otic 8-09 Drops in ity o f drops 00:00: left ear [place] 00 in the Medical morning Branch and 2 Drops in the evening. Insulin Asp Yes [id number] INJECT 28 Univers Prt-Insulin 7-18 UNITS ity of Aspart 00:00: UNDER THE [place] (NOVOLOG 00 SKIN 2 Medical MIX 70-30) (TWO) Branch 100 unit/mL TIMES (70-30) DAILY injection BEFORE BREAKFAST AND DINNER. escitalopra Yes [id number] 10mg Take 1 Univers m oxalate 7-18 tablet by ity o f 10 mg 00:00: mouth in [place] tablet 00 the Medical morning. Branch Insulin 0 Yes Use as Univers [place], 7-18 directed ity of Disposable, 00:00: twice [place] (PEN 00 daily to Medical NEEDLE) 32 inject Branch gauge x insulin; " Ndle ICD-10 E11.65 Insulin Asp 2022-0 Yes [id number] INJECT 28 Univers Prt-Insulin 7-18 UNITS ity of Aspart 00:00: UNDER THE [place] (NOVOLOG 00 SKIN 2 Medical MIX 70-30) (TWO) Branch 100 unit/mL TIMES (70-30) DAILY injection BEFORE BREAKFAST AND DINNER. escitalopra 2022-0 Yes [id number] 10mg Take 1 Univers m oxalate 7-18 tablet by ity o f 10 mg 00:00: mouth in [place] tablet 00 the Medical morning. Branch Insulin 2022-0 Yes Use as Univers [place], 7-18 directed ity of Disposable, 00:00: twice [place] (PEN 00 daily to Medical NEEDLE) 32 inject Branch gauge x insulin; " Ndle ICD-10 E11.65 Insulin Asp 2022-0 Yes [id number] INJECT 28 Univers Prt-Insulin 7-18 UNITS ity of Aspart 00:00: UNDER THE [place] (NOVOLOG 00 SKIN 2 Medical MIX 70-30) (TWO) Branch 100 unit/mL TIMES (70-30) DAILY injection BEFORE BREAKFAST AND DINNER. escitalopra 2022-0 Yes [id number] 10mg Take 1 Univers m oxalate 7-18 tablet by ity o f 10 mg 00:00: mouth in [place] tablet 00 the Medical morning. Branch Insulin 2022-0 Yes Use as Univers [place], 7-18 directed ity of Disposable, 00:00: twice [place] (PEN 00 daily to Medical NEEDLE) 32 inject Branch gauge x insulin; " Ndle ICD-10 E11.65 Insulin Asp 2022-0 Yes [id number] INJECT 28 Univers Prt-Insulin 7-18 UNITS ity of Aspart 00:00: UNDER THE [place] (NOVOLOG 00 SKIN 2 Medical MIX 70-30) (TWO) Branch 100 unit/mL TIMES (70-30) DAILY injection BEFORE BREAKFAST AND DINNER. escitalopra 2022-0 Yes [id number] 10mg Take 1 Univers m oxalate 7-18 tablet by ity o f 10 mg 00:00: mouth in [place] tablet 00 the Medical morning. Branch Insulin 2023-0 Yes Use as Univers [place], 7-18 directed ity of Disposable, 00:00: twice [place] (PEN 00 daily to Medical NEEDLE) 32 inject Branch gauge x insulin; " Ndle ICD-10 E11.65 Insulin Asp 2022-0 Yes [id number] INJECT 28 Univers Prt-Insulin 7-18 UNITS ity of Aspart 00:00: UNDER THE [place] (NOVOLOG 00 SKIN 2 Medical MIX 70-30) (TWO) Branch 100 unit/mL TIMES (70-30) DAILY injection BEFORE BREAKFAST AND DINNER. escitalopra 2022-0 Yes [id number] 10mg Take 1 Univers m oxalate 7-18 tablet by ity o f 10 mg 00:00: mouth in [place] tablet 00 the Medical morning. Branch Insulin 2022-0 Yes Use as Univers [place], 7-18 directed ity of Disposable, 00:00: twice [place] (PEN 00 daily to Medical NEEDLE) 32 inject Branch gauge x insulin; " Ndle ICD-10 E11.65 Insulin Asp 2022-0 Yes [id number] INJECT 28 Univers Prt-Insulin 7-18 UNITS ity of Aspart 00:00: UNDER THE [place] (NOVOLOG 00 SKIN 2 Medical MIX 70-30) (TWO) Branch 100 unit/mL TIMES (70-30) DAILY injection BEFORE BREAKFAST AND DINNER. escitalopra 2022-0 Yes [id number] 10mg Take 1 Univers m oxalate 7-18 tablet by ity o f 10 mg 00:00: mouth in [place] tablet 00 the Medical morning. Branch Insulin 0 Yes Use as Univers [place], 7-18 directed ity of Disposable, 00:00: twice [place] (PEN 00 daily to Medical NEEDLE) 32 inject Branch gauge x insulin; " Ndle ICD-10 E11.65 Insulin Asp 2022-0 Yes [id number] INJECT 28 Univers Prt-Insulin 7-18 UNITS ity of Aspart 00:00: UNDER THE [place] (NOVOLOG 00 SKIN 2 Medical MIX 70-30) (TWO) Branch 100 unit/mL TIMES (70-30) DAILY injection BEFORE BREAKFAST AND DINNER. escitalopra 2022-0 Yes [id number] 10mg Take 1 Univers m oxalate 7-18 tablet by ity o f 10 mg 00:00: mouth in [place] tablet 00 the Medical morning. Branch Insulin 2022-0 Yes Use as Univers [place], 7-18 directed ity of Disposable, 00:00: twice [place] (PEN 00 daily to Medical NEEDLE) 32 inject Branch gauge x insulin; " Ndle ICD-10 E11.65 amoxicillin 2022- Yes [id number] 1{tbl} Take 1 Univers -clavulanat 12-2616 tablet by it y of e 00:00: 04:59 mouth in [place] (AUGMENTIN) 00 :00 the Medical 875-125 mg morning Branch per tablet and 1 tablet in the evening. Do all this for 7 days. doxycycline 2022- No TAKE ONE U nivers hyclate 100 12-16- CAPSULE ity of mg capsule 00:00: 00:00 ONCE DAILY [place] 00 :00 WITH FOOD Medical AND WATER, Branch DO NOT LIE DOWN FOR 1 HOUR AFTER. doxycycline 2022- No TAKE ONE U nivers hyclate 100 12-16 CAPSULE ity of mg capsule 00:00: 00:00 ONCE DAILY [place] 00 :00 WITH FOOD Medical AND WATER, Branch DO NOT LIE DOWN FOR 1 HOUR AFTER. metFORMIN Yes [id number] 1000mg Take 1 Univers 1,000 mg 6-18 tablet by ity of tablet 00:00: mouth in [place] 00 the Medical morning Branch and 1 tablet in the evening. Take with meals. metFORMIN 2022- No [id number] 1000mg Take 1 Univers 1,000 mg 6-18 06-21 tablet by ity o f tablet 00:00: 00:00 mouth in [place] 00 :00 the Medical morning Branch and 1 tablet in the evening. Take with meals. dulaglutide 0 Yes [id number] .75mg inject 1 Univers (TRULICITY) 6-16 Pen under ity of 0.75 mg/0.5 00:00: the skin [place] mL PnIj 00 weekly. Medical Branch dulaglutide 0 Yes [id number] .75mg inject 1 Univers (TRULICITY) 6-16 Pen under ity of 0.75 mg/0.5 00:00: the skin [place] mL PnIj 00 weekly. Medical Branch dulaglutide 0 Yes [id number] .75mg inject 1 Univers (TRULICITY) 6-16 Pen under ity of 0.75 mg/0.5 00:00: the skin [place] mL PnIj 00 weekly. Medical Branch dulaglutide Yes [id number] .75mg inject 1 Univers (TRULICITY) 6-16 Pen under ity of 0.75 mg/0.5 00:00: the skin [place] mL PnIj 00 weekly. Medical Branch dulaglutide Yes [id number] .75mg inject 1 Univers (TRULICITY) 6-16 Pen under ity of 0.75 mg/0.5 00:00: the skin [place] mL PnIj 00 weekly. Medical Branch dulaglutide Yes [id number] .75mg inject 1 Univers (TRULICITY) 6-16 Pen under ity of 0.75 mg/0.5 00:00: the skin [place] mL PnIj 00 weekly. Medical Branch dulaglutide Yes [id number] .75mg inject 1 Univers (TRULICITY) 6-16 Pen under ity of 0.75 mg/0.5 00:00: the skin [place] mL PnIj 00 weekly. Medical Branch dulaglutide Yes [id number] .75mg inject 1 Univers (TRULICITY) 6-16 Pen under ity of 0.75 mg/0.5 00:00: the skin [place] mL PnIj 00 weekly. Medical Branch dulaglutide Yes [id number] .75mg inject 1 Univers (TRULICITY) 6-16 Pen under ity of 0.75 mg/0.5 00:00: the skin [place] mL PnIj 00 weekly. Medical Branch dulaglutide Yes [id number] .75mg inject 1 Univers (TRULICITY) 6-16 Pen under ity of 0.75 mg/0.5 00:00: the skin [place] mL PnIj 00 weekly. Medical Branch dulaglutide 2022- No [id number] .75mg inject 1 Univers (TRULICITY) 6-16 08-11 Pen under it y of 0.75 mg/0.5 00:00: 00:00 the skin [place] mL PnIj 00 :00 weekly. Medical Branch dulaglutide 2022- No [id number] .75mg inject 1 Univers (TRULICITY) 6-16 08-11 Pen under it y of 0.75 mg/0.5 00:00: 00:00 the skin [place] mL PnIj 00 :00 weekly. Medical Branch SITagliptin 3-0 Yes [id number] 50mg Take 1 Univers phosphate 6-08 tablet by ity o f 50 mg 00:00: mouth in [place] tablet 00 the Medical morning. Branch acetaminoph 3-0 Yes [id number] 650mg Take 1 Univers en (TYLENOL 6-08 tablet by ity of ARTHRITIS 00:00: mouth 3 [place] PAIN) 650 00 (three) Medical mg CR times Branch tablet daily as needed for Pain. SITagliptin 3-0 Yes [id number] 50mg Take 1 Univers phosphate 6-08 tablet by ity o f 50 mg 00:00: mouth in [place] tablet 00 the Medical morning. Branch acetaminoph 3-0 Yes [id number] 650mg Take 1 Univers en (TYLENOL 6-08 tablet by ity of ARTHRITIS 00:00: mouth 3 [place] PAIN) 650 00 (three) Medical mg CR times Branch tablet daily as needed for Pain. SITagliptin 3-0 Yes [id number] 50mg Take 1 Univers phosphate 6-08 tablet by ity o f 50 mg 00:00: mouth in [place] tablet 00 the Medical morning. Branch acetaminoph 3-0 Yes [id number] 650mg Take 1 Univers en (TYLENOL 6-08 tablet by ity of ARTHRITIS 00:00: mouth 3 [place] PAIN) 650 00 (three) Medical mg CR times Branch tablet daily as needed for Pain. SITagliptin 3-0 Yes [id number] 50mg Take 1 Univers phosphate 6-08 tablet by ity o f 50 mg 00:00: mouth in [place] tablet 00 the Medical morning. Branch acetaminoph 3-0 Yes [id number] 650mg Take 1 Univers en (TYLENOL 6-08 tablet by ity of ARTHRITIS 00:00: mouth 3 [place] PAIN) 650 00 (three) Medical mg CR times Branch tablet daily as needed for Pain. SITagliptin 3-0 Yes [id number] 50mg Take 1 Univers phosphate 6-08 tablet by ity o f 50 mg 00:00: mouth in [place] tablet 00 the Medical morning. Branch acetaminoph 2023-0 Yes [id number] 650mg Take 1 Univers en (TYLENOL 6-08 tablet by ity of ARTHRITIS 00:00: mouth 3 [place] PAIN) 650 00 (three) Medical mg CR times Branch tablet daily as needed for Pain. acetaminoph 3-0 Yes [id number] 650mg Take 1 Univers en (TYLENOL 6-08 tablet by ity of ARTHRITIS 00:00: mouth 3 [place] PAIN) 650 00 (three) Medical mg CR times Branch tablet daily as needed for Pain. acetaminoph 2023-0 Yes [id number] 650mg Take 1 Univers en (TYLENOL 6-08 tablet by ity of ARTHRITIS 00:00: mouth 3 [place] PAIN) 650 00 (three) Medical mg CR times Branch tablet daily as needed for Pain. acetaminoph 3-0 Yes [id number] 650mg Take 1 Univers en (TYLENOL 6-08 tablet by ity of ARTHRITIS 00:00: mouth 3 [place] PAIN) 650 00 (three) Medical mg CR times Branch tablet daily as needed for Pain. acetaminoph 3-0 Yes [id number] 650mg Take 1 Univers en (TYLENOL 6-08 tablet by ity of ARTHRITIS 00:00: mouth 3 [place] PAIN) 650 00 (three) Medical mg CR times Branch tablet daily as needed for Pain. acetaminoph 3-0 Yes [id number] 650mg Take 1 Univers en (TYLENOL 6-08 tablet by ity of ARTHRITIS 00:00: mouth 3 [place] PAIN) 650 00 (three) Medical mg CR times Branch tablet daily as needed for Pain. acetaminoph 3-0 Yes [id number] 650mg Take 1 Univers en (TYLENOL 6-08 tablet by ity of ARTHRITIS 00:00: mouth 3 [place] PAIN) 650 00 (three) Medical mg CR times Branch tablet daily as needed for Pain. acetaminoph 3-0 Yes [id number] 650mg Take 1 Univers en (TYLENOL 6-08 tablet by ity of ARTHRITIS 00:00: mouth 3 [place] PAIN) 650 00 (three) Medical mg CR times Branch tablet daily as needed for Pain. acetaminoph 2023-0 Yes [id number] 650mg Take 1 Univers en (TYLENOL 6-08 tablet by ity of ARTHRITIS 00:00: mouth 3 [place] PAIN) 650 00 (three) Medical mg CR times Branch tablet daily as needed for Pain. acetaminoph 2023-0 Yes [id number] 650mg Take 1 Univers en (TYLENOL 6-08 tablet by ity of ARTHRITIS 00:00: mouth 3 [place] PAIN) 650 00 (three) Medical mg CR times Branch tablet daily as needed for Pain. acetaminoph 2022-0 Yes [id number] 650mg Take 1 [facility] (TYLENOL 6-08 tablet by ity of ARTHRITIS 00:00: mouth 3 [place] PAIN) 650 00 (three) Medical mg CR times Branch tablet daily as needed for Pain. acetaminoph 2022-0 Yes [id number] 650mg Take 1 [facility] en (TYLENOL 6-08 tablet by ity of ARTHRITIS 00:00: mouth 3 [place] PAIN) 650 00 (three) Medical mg CR times Branch tablet daily as needed for Pain. acetaminoph 2022-0 Yes [id number] 650mg Take 1 [facility] en (TYLENOL 6-08 tablet by ity of ARTHRITIS 00:00: mouth 3 [place] PAIN) 650 00 (three) Medical mg CR times Branch tablet daily as needed for Pain. acetaminoph 2022-0 Yes [id number] 650mg Take 1 [facility] en (TYLENOL 6-08 tablet by ity of ARTHRITIS 00:00: mouth 3 [place] PAIN) 650 00 (three) Medical mg CR times Branch tablet daily as needed for Pain. acetaminoph 2022- No [id number] 650mg Take 1 [facility] en (TYLENOL 6-08 08-11 tablet by it y of ARTHRITIS 00:00: 00:[place] PA[place] 650 00 :00 (three) Medical mg CR times Branch tablet daily as needed for Pain. acetaminoph 3- No [id number] 650mg Take 1 [facility] en (TYLENOL 6-08 08-11 tablet by it y of ARTHRITIS 00:00: 00:[place] PA[place] 650 00 :00 (three) Medical mg CR times Branch tablet daily as needed for Pain. SITagliptin 2022-0 2022- No [id number] 50mg Take 1 [facility] phosphate 6-08 06-16 tablet by ity of 50 mg 00:00: 00:00 mouth in [place] tablet 00 :00 the Medical morning. Branch SITagliptin 2022-0 2022- No [id number] 50mg Take 1 [facility] phosphate 6-08 06-16 tablet by ity of 50 mg 00:00: 00:00 mouth in [place] tablet 00 :00 the Medical morning. Branch SITagliptin 2022-0 2022- No [id number] 50mg Take 1 [facility] phosphate 6-08 06-16 tablet by ity of 50 mg 00:00: 00:00 mouth in [place] tablet 00 :00 the Medical morning. Branch SITagliptin 3- No [id number] 50mg Take 1 [facility] phosphate 6-08 06-16 tablet by ity of 50 mg 00:00: 00:00 mouth in [place] tablet 00 :00 the Medical morning. Branch SITagliptin 2022-3- No [id number] 50mg Take 1 [facility] phosphate 6-08 06-16 tablet by ity of 50 mg 00:00: 00:00 mouth in [place] tablet 00 :00 the Medical morning. Branch SITagliptin 2022- No [id number] 50mg Take 1 [facility] phosphate 6-08 -16 tablet by ity of 50 mg 00:00: 00:00 mouth in [place] tablet 00 :00 the Medical morning. [facility] 0 Yes [id number] USE TWICE Univers MICROFILL 4-05 DAILY FOR ity o f strip 00:00: BLOOD [place] GLUCOSE Medical MONITORING [facility] 2022-0 Yes [id number] USE TWICE Univers MICROFILL 4-05 DAILY FOR ity o f strip 00:00: BLOOD [place] GLUCOSE Medical MONITORING [facility] 2022-0 Yes [id number] USE TWICE Univers MICROFILL 4-05 DAILY FOR ity o f strip 00:00: BLOOD [place] GLUCOSE Medical MONITORING [facility] 2022-0 Yes [id number] USE TWICE Univers MICROFILL 4-05 DAILY FOR ity o f strip 00:00: BLOOD [place] GLUCOSE Medical MONITORING [facility] 2022-0 Yes [id number] USE TWICE Univers MICROFILL 4-05 DAILY FOR ity o f strip 00:00: BLOOD [place] GLUCOSE Medical MONITORING [facility] 2022-0 Yes [id number] USE TWICE Univers MICROFILL 4-05 DAILY FOR ity o f strip 00:00: BLOOD [place] GLUCOSE Medical MONITORING [facility] 2022-0 Yes [id number] USE TWICE Univers MICROFILL 4-05 DAILY FOR ity o f strip 00:00: BLOOD [place] GLUCOSE Medical MONITORING [facility] 2022-0 Yes [id number] USE TWICE Univers MICROFILL 4-05 DAILY FOR ity o f strip 00:00: BLOOD [place] GLUCOSE Medical MONITORING [facility] 2022-0 Yes [id number] USE TWICE Univers MICROFILL 4-05 DAILY FOR ity o f strip 00:00: BLOOD [place] GLUCOSE Medical [facility] Yes [id number] USE TWICE Univers MICROFILL 4-05 DAILY FOR ity o f strip 00:00: BLOOD [place] GLUCOSE Medical MON[facility]ORING [facility] Yes [id number] USE TWICE Univers MICROFILL 4-05 DAILY FOR ity o f strip 00:00: BLOOD [place] GLUCOSE Medical MON[facility]ORING [facility]0 Yes [id number] USE TWICE Univers MICROFILL 4-05 DAILY FOR ity o f strip 00:00: BLOOD [place] GLUCOSE Medical MON[facility]ORING [facility] Yes [id number] USE TWICE Univers MICROFILL 4-05 DAILY FOR ity o f strip 00:00: BLOOD [place] GLUCOSE Medical MON[facility]ORING [facility] Yes [id number] USE TWICE Univers MICROFILL 4-05 DAILY FOR ity o f strip 00:00: BLOOD [place] GLUCOSE Medical [facility] [id number] USE TWICE Univers MICROFILL 4-05 DAILY FOR ity o f strip 00:00: BLOOD [place] GLUCOSE Medical MON[facility]ORING [facility] Yes [id number] USE TWICE Univers MICROFILL 4-05 DAILY FOR ity o f strip 00:00: BLOOD [place] GLUCOSE Medical MON[facility]ORING [facility] Yes [id number] USE TWICE Univers MICROFILL 4-05 DAILY FOR ity o f strip 00:00: BLOOD [place] GLUCOSE Medical MON[facility]ORING [facility] Yes [id number] USE TWICE Univers MICROFILL 4-05 DAILY FOR ity o f strip 00:00: BLOOD [place] GLUCOSE Medical MON[facility]ORING [facility] Yes [id number] USE TWICE [facility] MICROFILL 4-05 DAILY FOR ity o f strip 00:00: BLOOD [place] GLUCOSE Medical MONITORING Branch [facility] Yes [id number] USE TWICE Univers MICROFILL 4-05 DAILY FOR ity o f strip 00:00: BLOOD [place] GLUCOSE Medical MON[facility]ORING [facility] Yes [id number] USE TWICE Univers MICROFILL 4-05 DAILY FOR ity o f strip 00:00: BLOOD [place] GLUCOSE Medical MONITORING [facility] 20[facility]0 Yes [id number] USE TWICE Univers MICROFILL 4-05 DAILY FOR ity o f strip 00:00: BLOOD [place] 00 GLUCOSE Medical MONITORING Branch [facility] 2022-0 Yes [id number] USE TWICE Univers MICROFILL 4-05 DAILY FOR ity o f strip 00:00: BLOOD [place] 00 GLUCOSE Medical MONITORING Branch [facility] 2022-0 Yes [id number] USE TWICE Univers MICROFILL 4-05 DAILY FOR ity o f strip 00:00: BLOOD [place] 00 GLUCOSE Medical MONITORING Branch [facility] 2022-0 Yes [id number] USE TWICE Univers MICROFILL 4-05 DAILY FOR ity o f strip 00:00: BLOOD [place] 00 GLUCOSE Medical MONITORING Branch [facility] 2022-0 Yes [id number] USE TWICE Univers MICROFILL 4-05 DAILY FOR ity o f strip 00:00: BLOOD [place] 00 GLUCOSE Medical MONITORING Branch [facility] 2022-0 2023- No [id number] USE TWICE Univers MICROFILL 4-05 08-11 DAILY FOR ity of strip 00:00: 00:00 BLOOD [place] 00 :00 GLUCOSE Medical MONITORING Branch [facility] 2022-0 2023- No [id number] USE TWICE Univers MICROFILL 4-05 08-11 DAILY FOR ity of strip 00:00: 00:00 BLOOD [place] 00 :00 GLUCOSE Medical MONITORING Branch Insulin Asp Yes [id number] INJECT 28 [facility] Prt-Insulin 3-30 UNITS ity of Aspart 00:00: UNDER THE [place] (NOVOLOG 00 SKIN 2 Medical MIX 70-30) (TWO) Branch 100 unit/mL TIMES (70-30) DAILY injection BEFORE BREAKFAST AND DINNER. lisinopriL 0 Yes [id number] 20mg Take 1 U nivers 20 mg 3-30 tablet by ity of tablet 00:00: mouth in [place] 00 the Medical morning. Branch Insulin 2022-0 Yes [id number] Use as Univ ers [place], 3-30 directed ity of Disposable, 00:00: twice [place] (PEN 00 daily to Medical NEEDLE) 32 inject Branch gauge x insulin; " Ndle ICD-10 E11.65 Insulin Asp 2022-0 Yes [id number] INJECT 28 [facility] Prt-Insulin 3-30 UNITS ity of Aspart 00:00: UNDER THE [place] (NOVOLOG 00 SKIN 2 Medical MIX 70-30) (TWO) Branch 100 unit/mL TIMES (70-30) DAILY injection BEFORE BREAKFAST AND DINNER. lisinopriL 2022-0 Yes [id number] 20mg Take 1 U nivers 20 mg 3-30 tablet by ity of tablet 00:00: mouth in [place] 00 the Medical morning. Branch Insulin 2022-0 Yes [id number] Use as Univ ers [place], 3-30 directed ity of Disposable, 00:00: twice [place] (PEN 00 daily to Medical NEEDLE) 32 inject Branch gauge x insulin; " Ndle ICD-10 E11.65 Insulin Asp 2022-0 Yes [id number] INJECT 28 [facility] Prt-Insulin 3-30 UNITS ity of Aspart 00:00: UNDER THE [place] (NOVOLOG 00 SKIN 2 Medical MIX 70-30) (TWO) Branch 100 unit/mL TIMES (70-30) DAILY injection BEFORE BREAKFAST AND DINNER. lisinopriL 2022-0 Yes [id number] 20mg Take 1 U nivers 20 mg 3-30 tablet by ity of tablet 00:00: mouth in [place] 00 the Medical morning. Branch Insulin 2022-0 Yes [id number] Use as Univ ers [place], 3-30 directed ity of Disposable, 00:00: twice [place] (PEN 00 daily to Medical NEEDLE) 32 inject Branch gauge x insulin; " Ndle ICD-10 E11.65 Insulin Asp 2022-0 Yes [id number] INJECT 28 [facility] Prt-Insulin 3-30 UNITS ity of Aspart 00:00: UNDER THE [place] (NOVOLOG 00 SKIN 2 Medical MIX 70-30) (TWO) Branch 100 unit/mL TIMES (70-30) DAILY injection BEFORE BREAKFAST AND DINNER. lisinopriL 2022-0 Yes [id number] 20mg Take 1 U nivers 20 mg 3-30 tablet by ity of tablet 00:00: mouth in [place] 00 the Medical morning. Branch Insulin 2022-0 Yes [id number] Use as Univ ers [place], 3-30 directed ity of Disposable, 00:00: twice [place] (PEN 00 daily to Medical NEEDLE) 32 inject Branch gauge x insulin; " Ndle ICD-10 E11.65 Insulin Asp 2022-0 Yes [id number] INJECT 28 [facility] Prt-Insulin 3-30 UNITS ity of Aspart 00:00: UNDER THE [place] (NOVOLOG 00 SKIN 2 Medical MIX 70-30) (TWO) Branch 100 unit/mL TIMES (70-30) DAILY injection BEFORE BREAKFAST AND DINNER. lisinopriL 2022-0 Yes [id number] 20mg Take 1 U nivers 20 mg 3-30 tablet by ity of tablet 00:00: mouth in [place] 00 the Medical morning. Branch Insulin 2022-0 Yes [id number] Use as Univ ers [place], 3-30 directed ity of Disposable, 00:00: twice [place] (PEN 00 daily to Medical NEEDLE) 32 inject Branch gauge x insulin; " Ndle ICD-10 E11.65 Insulin 2022-0 Yes [id number] Use as Univ ers [place], 3-30 directed ity of Disposable, 00:00: twice [place] (PEN 00 daily to Medical NEEDLE) 32 inject Branch gauge x insulin; " Ndle ICD-10 E11.65 Insulin Asp 2022-0 Yes [id number] INJECT 28 [facility] Prt-Insulin 3-30 UNITS ity of Aspart 00:00: UNDER THE [place] (NOVOLOG 00 SKIN 2 Medical MIX 70-30) (TWO) Branch 100 unit/mL TIMES (70-30) DAILY injection BEFORE BREAKFAST AND DINNER. lisinopriL 2022-0 Yes [id number] 20mg Take 1 U nivers 20 mg 3-30 tablet by ity of tablet 00:00: mouth in [place] 00 the Medical morning. Branch Insulin 2022-0 Yes [id number] Use as Univ ers [place], 3-30 directed ity of Disposable, 00:00: twice [place] (PEN 00 daily to Medical NEEDLE) 32 inject Branch gauge x insulin; " Ndle ICD-10 E11.65 Insulin Asp 2022-0 Yes [id number] INJECT 28 [facility] Prt-Insulin 3-30 UNITS ity of Aspart 00:00: UNDER THE [place] (NOVOLOG 00 SKIN 2 Medical MIX 70-30) (TWO) Branch 100 unit/mL TIMES (70-30) DAILY injection BEFORE BREAKFAST AND DINNER. lisinopriL 2022-0 Yes [id number] 20mg Take 1 U nivers 20 mg 3-30 tablet by ity of tablet 00:00: mouth in [place] 00 the Medical morning. Branch Insulin 2022-0 Yes [id number] Use as [facility] [place], 3-30 directed ity of Disposable, 00:00: twice [place] (PEN 00 daily to Medical NEEDLE) 32 inject Branch gauge x insulin; " Ndle ICD-10 E11.65 lisinopriL 2022-0 Yes [id number] 20mg Take 1 U nivers 20 mg 3-30 tablet by ity of tablet 00:00: mouth in [place] 00 the Medical morning. Branch Insulin 2022-0 Yes [id number] Use as Univ ers [place], 3-30 directed ity of Disposable, 00:00: twice [place] (PEN 00 daily to Medical NEEDLE) 32 inject Branch gauge x insulin; 5/32" Ndle ICD-10 E11.65 lisinopriL 2022-0 Yes [id number] 20mg Take 1 U nivers 20 mg 3-30 tablet by ity of tablet 00:00: mouth in [place] 00 the Medical morning. Branch Insulin 2022-0 Yes [id number] Use as Univ [facility] [place], 3-30 directed ity of Disposable, 00:00: twice [place] (PEN 00 daily to Medical NEEDLE) 32 inject Branch gauge x insulin; 5/32" Ndle ICD-10 E11.65 lisinopriL 2022-0 Yes [id number] 20mg Take 1 U nivers 20 mg 3-30 tablet by ity of tablet 00:00: mouth in [place] the Medical morning. Branch Insulin 2022-0 Yes [id number] Use as [facility] [place], 3-30 directed ity of Disposable, 00:00: twice [place] (PEN 00 daily to Medical NEEDLE) 32 inject Branch gauge x insulin; 5/32" Ndle ICD-10 E11.65 lisinopriL 2022-0 Yes [id number] 20mg Take 1 U nivers 20 mg 3-30 tablet by ity of tablet 00:00: mouth in [place] the Medical morning. Branch Insulin 2022-0 Yes [id number] Use as [facility] [place], 3-30 directed ity of Disposable, 00:00: twice [place] (PEN 00 daily to Medical NEEDLE) 32 inject Branch gauge x insulin; 5/32" Ndle ICD-10 E11.65 lisinopriL 2022-0 Yes [id number] 20mg Take 1 U nivers 20 mg 3-30 tablet by ity of tablet 00:00: mouth in [place] 00 the Medical morning. Branch Insulin 2022-0 Yes [id number] Use as Univ ers [place], 3-30 directed ity of Disposable, 00:00: twice [place] (PEN 00 daily to Medical NEEDLE) 32 inject Branch gauge x insulin; 5/32" Ndle ICD-10 E11.65 lisinopriL 2022-0 Yes [id number] 20mg Take 1 U nivers 20 mg 3-30 tablet by ity of tablet 00:00: mouth in [place] 00 the Medical morning. Branch Insulin 2022-0 Yes [id number] Use as Univ ers [place], 3-30 directed ity of Disposable, 00:00: twice [place] (PEN 00 daily to Medical NEEDLE) 32 inject Branch gauge x insulin; 5/32" Ndle ICD-10 E11.65 lisinopriL 2022-0 Yes [id number] 20mg Take 1 U nivers 20 mg 3-30 tablet by ity of tablet 00:00: mouth in [place] 00 the Medical morning. Branch Insulin 2022-0 Yes [id number] Use as Univ ers [place], 3-30 directed ity of Disposable, 00:00: twice [place] (PEN 00 daily to Medical NEEDLE) 32 inject Branch gauge x insulin; 5/32" Ndle ICD-10 E11.65 lisinopriL 2022-0 Yes [id number] 20mg Take 1 U nivers 20 mg 3-30 tablet by ity of tablet 00:00: mouth in [place] the Medical morning. Branch Insulin 2022-0 Yes [id number] Use as Univ ers [place], 3-30 directed ity of Disposable, 00:00: twice [place] (PEN 00 daily to Medical NEEDLE) 32 inject Branch gauge x insulin; 5/32" Ndle ICD-10 E11.65 lisinopriL 2022-0 Yes [id number] 20mg Take 1 U nivers 20 mg 3-30 tablet by ity of tablet 00:00: mouth in [place] the Medical morning. Branch Insulin 2022-0 Yes [id number] Use as [facility] [place], 3-30 directed ity of Disposable, 00:00: twice [place] (PEN 00 daily to Medical NEEDLE) 32 inject Branch gauge x insulin; 5/32" Ndle ICD-10 E11.65 lisinopriL 2022-0 Yes [id number] 20mg Take 1 U nivers 20 mg 3-30 tablet by ity of tablet 00:00: mouth in [place] 00 the Medical morning. Branch Insulin 2022-0 Yes [id number] Use as [facility] ers [place], 3-30 directed ity of Disposable, 00:00: twice [place] (PEN 00 daily to Medical NEEDLE) 32 inject Branch gauge x insulin; 5/32" Ndle ICD-10 E11.65 lisinopriL 2022-0 Yes [id number] 20mg Take 1 U nivers 20 mg 3-30 tablet by ity of tablet 00:00: mouth in [place] the Medical morning. Branch Insulin 2022-0 Yes [id number] Use as [facility] ers [place], 3-30 directed ity of Disposable, 00:00: twice [place] (PEN 00 daily to Medical NEEDLE) 32 inject Branch gauge x insulin; " Ndle ICD-10 E11.65 lisinopriL 2022-0 Yes [id number] 20mg Take 1 U nivers 20 mg 3-30 tablet by ity of tablet 00:00: mouth in [place] the Medical morning. Branch Insulin 2022-0 Yes [id number] Use as [facility] ers [place], 3-30 directed ity of Disposable, 00:00: twice [place] (PEN 00 daily to Medical NEEDLE) 32 inject Branch gauge x insulin; " Ndle ICD-10 E11.65 lisinopriL 2022-0 Yes [id number] 20mg Take 1 U nivers 20 mg 3-30 tablet by ity of tablet 00:00: mouth in [place] the Medical morning. Branch Insulin 2022-0 Yes [id number] Use as Univ ers [place], 3-30 directed ity of Disposable, 00:00: twice [place] (PEN 00 daily to Medical NEEDLE) 32 inject Branch gauge x insulin; " Ndle ICD-10 E11.65 lisinopriL 2022-0 Yes [id number] 20mg Take 1 U nivers 20 mg 3-30 tablet by ity of tablet 00:00: mouth in [place] the Medical morning. Branch lisinopriL 2022-0 Yes [id number] 20mg Take 1 U nivers 20 mg 3-30 tablet by ity of tablet 00:00: mouth in [place] the Medical morning. Branch lisinopriL 3-0 Yes [id number] 20mg Take 1 U nivers 20 mg 3-30 tablet by ity of tablet 00:00: mouth in [place] the Medical morning. Branch lisinopriL 2023-0 Yes [id number] 20mg Take 1 U nivers 20 mg 3-30 tablet by ity of tablet 00:00: mouth in [place] the Medical morning. Branch lisinopriL 2023-0 Yes [id number] 20mg Take 1 U nivers 20 mg 3-30 tablet by ity of tablet 00:00: mouth in [place] 00 the Medical morning. Branch lisinopriL 2022-0 Yes [id number] 20mg Take 1 U nivers 20 mg 3-30 tablet by ity of tablet 00:00: mouth in [place] the morning. Branch lisinopriL 2022-0 Yes [id number] 20mg Take 1 U nivers 20 mg 3-30 tablet by ity of tablet 00:00: mouth in [place] the morning. Branch lisinopriL 2022-0 Yes [id number] 20mg Take 1 U nivers 20 mg 3-30 tablet by ity of tablet 00:00: mouth in [place] the morning. Branch Insulin 2022-0 Yes [id number] Use as Univ ers [place], 3-30 directed ity of Disposable, 00:00: twice [place] (PEN 00 daily to Medical NEEDLE) 32 inject Branch gauge x insulin; " Ndle ICD-10 E11.65 blood sugar Yes [id number] USE TWICE [facility] diagnostic 3-30 DAILY FOR ity of (ASCENSIA 00:00: BLOOD [place] MICROFILL) 00 GLUCOSE Medica l strip MONITORING Branch Insulin Asp 2022-0 Yes [id number] INJECT 20 [facility] Prt-Insulin 3-30 UNITS ity of Aspart 00:00: UNDER THE [place] (NOVOLOG 00 SKIN 2 Medical MIX 70-30) (TWO) Branch 100 unit/mL TIMES (70-30) DAILY injection BEFORE BREAKFAST AND DINNER. Insulin 2022-0 Yes [id number] Use as Univ ers [place], 3-30 directed ity of Disposable, 00:00: twice [place] (PEN 00 daily to Medical NEEDLE) 32 inject Branch gauge x insulin; " Ndle ICD-10 E11.65 blood sugar 2022- Yes [id number] USE TWICE [facility] diagnostic 3-30 DAILY FOR ity of (ASCENSIA 00:00: BLOOD [place] MICROFILL) 00 GLUCOSE Medica l strip MONITORING Branch Insulin Asp 2022-0 Yes [id number] INJECT 28 [facility] Prt-Insulin 3-30 UNITS ity of Aspart 00:00: UNDER THE [place] (NOVOLOG 00 SKIN 2 Medical MIX 70-30) (TWO) Branch 100 unit/mL TIMES (70-30) DAILY injection BEFORE BREAKFAST AND DINNER. lisinopriL 2022-0 Yes [id number] 20mg Take 1 U nivers 20 mg 3-30 tablet by ity of tablet 00:00: mouth in [place] 00 the Medical morning. Branch Insulin 2022-0 Yes [id number] Use as Univ ers [place], 3-30 directed ity of Disposable, 00:00: twice [place] (PEN 00 daily to Medical NEEDLE) 32 inject Branch gauge x insulin; " Ndle ICD-10 E11.65 blood sugar 2022-0 Yes [id number] USE TWICE [facility] diagnostic 3-30 DAILY FOR ity of (ASCENSIA 00:00: BLOOD [place] MICROFILL) 00 GLUCOSE Medica l strip MONITORING Branch Insulin Asp 2022-0 Yes [id number] INJECT 28 [facility] Prt-Insulin 3-30 UNITS ity of Aspart 00:00: UNDER THE [place] (NOVOLOG 00 SKIN 2 Medical MIX 70-30) (TWO) Branch 100 unit/mL TIMES (70-30) DAILY injection BEFORE BREAKFAST AND DINNER. lisinopriL 2022-0 Yes [id number] 20mg Take 1 U nivers 20 mg 3-30 tablet by ity of tablet 00:00: mouth in [place] 00 the Medical morning. Branch Insulin 2022-0 Yes [id number] Use as Univ ers [place], 3-30 directed ity of Disposable, 00:00: twice [place] (PEN 00 daily to Medical NEEDLE) 32 inject Branch gauge x insulin; " Ndle ICD-10 E11.65 blood sugar 2022-0 Yes [id number] USE TWICE [facility] diagnostic 3-30 DAILY FOR ity of (ASCENSIA 00:00: BLOOD [place] MICROFILL) 00 GLUCOSE Medica l strip MONITORING Branch Insulin Asp 2022-0 Yes [id number] INJECT 28 [facility] Prt-Insulin 3-30 UNITS ity of Aspart 00:00: UNDER THE [place] (NOVOLOG 00 SKIN 2 Medical MIX 70-30) (TWO) Branch 100 unit/mL TIMES (70-30) DAILY injection BEFORE BREAKFAST AND DINNER. lisinopriL 2022-0 Yes [id number] 20mg Take 1 U nivers 20 mg 3-30 tablet by ity of tablet 00:00: mouth in [place] 00 the Medical morning. Branch Insulin 2022-0 Yes [id number] Use as Univ ers [place], 3-30 directed ity of Disposable, 00:00: twice [place] (PEN 00 daily to Medical NEEDLE) 32 inject Branch gauge x insulin; " Ndle ICD-10 E11.65 blood sugar 2022-0 Yes [id number] USE TWICE [facility] diagnostic 3-30 DAILY FOR ity of (ASCENSIA 00:00: BLOOD [place] MICROFILL) 00 GLUCOSE Medica l strip MONITORING Branch Insulin Asp 2022-0 Yes [id number] INJECT 28 [facility] Prt-Insulin 3-30 UNITS ity of Aspart 00:00: UNDER THE [place] (NOVOLOG 00 SKIN 2 Medical MIX 70-30) (TWO) Branch 100 unit/mL TIMES (70-30) DAILY injection BEFORE BREAKFAST AND DINNER. lisinopriL 2022-0 Yes [id number] 20mg Take 1 U nivers 20 mg 3-30 tablet by ity of tablet 00:00: mouth in [place] 00 the Medical morning. Branch Insulin 2022-0 Yes [id number] Use as Univ ers [place], 3-30 directed ity of Disposable, 00:00: twice [place] (PEN 00 daily to Medical NEEDLE) 32 inject Branch gauge x insulin; " Ndle ICD-10 E11.65 blood sugar 0 Yes [id number] USE TWICE [facility] diagnostic 3-30 DAILY FOR ity of (ASCENSIA 00:00: BLOOD [place] MICROFILL) 00 GLUCOSE Medica l strip MONITORING Branch Insulin Asp 2022-0 Yes [id number] INJECT 28 [facility] Prt-Insulin 3-30 UNITS ity of Aspart 00:00: UNDER THE [place] (NOVOLOG 00 SKIN 2 Medical MIX 70-30) (TWO) Branch 100 unit/mL TIMES (70-30) DAILY injection BEFORE BREAKFAST AND DINNER. lisinopriL 2022-0 Yes [id number] 20mg Take 1 U nivers 20 mg 3-30 tablet by ity of tablet 00:00: mouth in [place] 00 the Medical morning. Branch Insulin 2022-0 Yes [id number] Use as Univ ers [place], 3-30 directed ity of Disposable, 00:00: twice [place] (PEN 00 daily to Medical NEEDLE) 32 inject Branch gauge x insulin; " Ndle ICD-10 E11.65 blood sugar 2022-0 Yes [id number] USE TWICE [facility] diagnostic 3-30 DAILY FOR ity of (ASCENSIA 00:00: BLOOD [place] MICROFILL) 00 GLUCOSE Medica l strip MONITORING Branch Insulin Asp 2022-0 Yes [id number] INJECT 28 [facility] Prt-Insulin 3-30 UNITS ity of Aspart 00:00: UNDER THE [place] (NOVOLOG 00 SKIN 2 Medical MIX 70-30) (TWO) Branch 100 unit/mL TIMES (70-30) DAILY injection BEFORE BREAKFAST AND DINNER. lisinopriL 2022-0 Yes [id number] 20mg Take 1 U nivers 20 mg 3-30 tablet by ity of tablet 00:00: mouth in [place] 00 the Medical morning. Branch Insulin 2022-0 Yes [id number] Use as Univ ers [place], 3-30 directed ity of Disposable, 00:00: twice [place] (PEN 00 daily to Medical NEEDLE) 32 inject Branch gauge x insulin; " Ndle ICD-10 E11.65 blood sugar 2022-0 Yes [id number] USE TWICE [facility] diagnostic 3-30 DAILY FOR ity of (ASCENSIA 00:00: BLOOD [place] MICROFILL) 00 GLUCOSE Medica l strip MONITORING Branch Insulin Asp 2022-0 Yes [id number] INJECT 28 [facility] Prt-Insulin 3-30 UNITS ity of Aspart 00:00: UNDER THE [place] (NOVOLOG 00 SKIN 2 Medical MIX 70-30) (TWO) Branch 100 unit/mL TIMES (70-30) DAILY injection BEFORE BREAKFAST AND DINNER. lisinopriL 2022-0 Yes [id number] 20mg Take 1 U nivers 20 mg 3-30 tablet by ity of tablet 00:00: mouth in [place] 00 the Medical morning. Branch Insulin 2022-0 Yes [id number] Use as Univ ers [place], 3-30 directed ity of Disposable, 00:00: twice [place] (PEN 00 daily to Medical NEEDLE) 32 inject Branch gauge x insulin; " Ndle ICD-10 E11.65 blood sugar 2022-0 Yes [id number] USE TWICE [facility] diagnostic 3-30 DAILY FOR ity of (ASCENSIA 00:00: BLOOD [place] MICROFILL) 00 GLUCOSE Medica l strip MONITORING Branch Insulin Asp 2022-0 Yes [id number] INJECT 28 [facility] Prt-Insulin 3-30 UNITS ity of Aspart 00:00: UNDER THE [place] (NOVOLOG 00 SKIN 2 Medical MIX 70-30) (TWO) Branch 100 unit/mL TIMES (70-30) DAILY injection BEFORE BREAKFAST AND DINNER. lisinopriL 2022-0 Yes [id number] 20mg Take 1 U nivers 20 mg 3-30 tablet by ity of tablet 00:00: mouth in [place] 00 the Medical morning. Branch Insulin 2022-0 Yes [id number] Use as Univ ers [place], 3-30 directed ity of Disposable, 00:00: twice [place] (PEN 00 daily to Medical NEEDLE) 32 inject Branch gauge x insulin; 5" Ndle ICD-10 E11.65 Insulin Asp Yes [id number] INJECT 28 [facility] Prt-Insulin 3-30 UNITS ity of Aspart 00:00: UNDER THE [place] (NOVOLOG 00 SKIN 2 Medical MIX 70-30) (TWO) Branch 100 unit/mL TIMES (70-30) DAILY injection BEFORE BREAKFAST AND DINNER. lisinopriL Yes [id number] 20mg Take 1 U nivers 20 mg 3-30 tablet by ity of tablet 00:00: mouth in [place] 00 the Medical morning. Branch Insulin Yes [id number] Use as Univ ers [place], 09-17 directed ity of Disposable, 00:00: twice [place] (PEN 00 daily to Medical NEEDLE) 32 inject Branch gauge x insulin; 5/32" Ndle ICD-10 E11.65 Insulin 2022- No [id number] Use as Uni vers [place], 09-17 directed ity of Disposable, 00:00: 00:[place] (PEN 00 :00 daily to Medical NEEDLE) 32 inject Branch gauge x insulin; 5/32" Ndle ICD-10 E11.65 Insulin 2022- No [id number] Use as Uni vers [place], 09-17 directed ity of Disposable, 00:00: 00:00 [place] (P[place] 00 :00 daily to Medical NEEDLE) 32 inject Branch gauge x insulin; 532" Ndle ICD-10 E11.65 Insulin Asp 2022- No [id number] INJECT 28 Univers Prt-Insulin 3-30 06-08 UNITS ity of Aspart 00:00: 00:00 UNDER THE [place] (NOVOLOG 00 :00 SKIN 2 Medical MIX 70-30) (TWO) Branch 100 unit/mL TIMES (70-30) DAILY injection BEFORE BREAKFAST AND DINNER. Insulin Asp 2022- No [id number] INJECT 28 [facility] Prt-Insulin 3-30 06-08 UNITS ity of Aspart 00:00: 00:00 UNDER THE [place] (NOVOLOG 00 :00 SKIN 2 Medical MIX 70-30) (TWO) Branch 100 unit/mL TIMES (70-30) DAILY injection BEFORE BREAKFAST AND DINNER. Insulin Asp 2022- No [id number] INJECT 28 [facility] Prt-Insulin 3-30 06-08 UNITS ity of Aspart 00:00: 00:00 UNDER THE [place] (NOVOLOG 00 :00 SKIN 2 Medical MIX 70-30) (TWO) Branch 100 unit/mL TIMES (70-30) DAILY injection BEFORE BREAKFAST AND DINNER. Insulin Asp 2022- No [id number] INJECT 28 [facility] Prt-Insulin 3-30 06-08 UNITS ity of Aspart 00:00: 00:00 UNDER THE [place] (NOVOLOG 00 :00 SKIN 2 Medical MIX 70-30) (TWO) Branch 100 unit/mL TIMES (70-30) DAILY injection BEFORE BREAKFAST AND DINNER. blood sugar 2022- No [id number] USE TWICE Univers diagnostic 3-30 04-05 DAILY FOR ity of (ASCENSIA 00:00: 00:00 BLOOD [place] MICROFILL) 00 :00 GLUCOSE Medica l strip MONITORING Branch blood sugar 2022- No [id number] USE TWICE Univers diagnostic 3-30 04-05 DAILY FOR ity of (ASCENSIA 00:00: 00:00 BLOOD [place] MICROFILL) 00 :00 GLUCOSE Medica l strip MONITORING Branch Insulin Asp 2022- No [id number] INJECT 20 [facility] Prt-Insulin 3-30 03-30 UNITS ity of Aspart 00:00: 00:00 UNDER THE [place] (NOVOLOG 00 :00 SKIN 2 Medical MIX 70-30) (TWO) Branch 100 unit/mL TIMES (70-30) DAILY injection BEFORE BREAKFAST AND DINNER. Insulin Asp 2022-2022- No [id number] INJECT 20 [facility] Prt-Insulin 3-30 03-30 UNITS ity of Aspart 00:00: 00:00 UNDER THE [place] (NOVOLOG 00 :00 SKIN 2 Medical MIX 70-30) (TWO) Branch 100 unit/mL TIMES (70-30) DAILY injection BEFORE BREAKFAST AND DINNER. Insulin Asp 2022-2022- No [id number] INJECT 20 [facility] Prt-Insulin 3-30 03-30 UNITS ity of Aspart 00:00: 00:00 UNDER THE [place] (NOVOLOG 00 :00 SKIN 2 Medical MIX 70-30) (TWO) Branch 100 unit/mL TIMES (70-30) DAILY injection BEFORE BREAKFAST AND DINNER. Insulin Asp 2022-0 2022- No [id number] INJECT 20 [facility] Prt-Insulin 3-30 03-30 UNITS ity of Aspart 00:00: 00:00 UNDER THE [place] (NOVOLOG 00 :00 SKIN 2 Medical MIX 70-30) (TWO) Branch 100 unit/mL TIMES (70-30) DAILY injection BEFORE BREAKFAST AND DINNER. Insulin Asp 2022-0 2022- No [id number] INJECT 20 [facility] Prt-Insulin 3-30 03-30 UNITS ity of Aspart 00:00: 00:00 UNDER THE [place] (NOVOLOG 00 :00 SKIN 2 Medical MIX 70-30) (TWO) Branch 100 unit/mL TIMES (70-30) DAILY injection BEFORE BREAKFAST AND DINNER. lisinopriL 2022-0 Yes [id number] 20mg Take 1 U nivers 20 mg 3-28 tablet by ity of tablet 00:00: mouth in [place] 00 the Medical morning. Branch lisinopriL 2022-0 Yes [id number] 20mg Take 1 U nivers 20 mg 3-28 tablet by ity of tablet 00:00: mouth in [place] 00 the Medical morning. Branch lisinopriL 2022-0 2022- No [id number] 20mg Take 1 Univers 20 mg 3-28 03-30 tablet by ity of tablet 00:00: 00:00 mouth in [place] 00 :00 the Medical morning. Branch lisinopriL 2022-0 2022- No [id number] 20mg Take 1 Univers 20 mg 3-28 03-30 tablet by ity of tablet 00:00: 00:00 mouth in [place] 00 :00 the Medical morning. Branch lisinopriL 2022-0 2022- No [id number] 20mg Take 1 [facility] 20 mg 3-28 03-30 tablet by ity of tablet 00:00: 00:00 mouth in [place] 00 :00 the Medical morning. Branch lisinopriL 2022-0 2022- No [id number] 20mg Take 1 [facility] 20 mg 3-28 03-30 tablet by ity of tablet 00:00: 00:00 mouth in [place] 00 :00 the Medical morning. Branch NaCl 0.9% 2022- No 1000mL at 999 Uni vers (NS) bolus 2-06 02-06 mL/hr, ity of infusion 17:15: 18:09 1,000 mL, [place] as 1,000 mL 00 :00 IV Medical Infusion, Branch ONCE, 1 dose, On Wed07/27/22 at 1115, STAT ondansetron 2022-0 2023- No 4mg 4 mg, Slow Univers (ZOFRAN 2- 02-06 IV Push, ity of (PF)) 16:15: 16:13 ONCE, 1 [place] injection 4 00 :00 dose, On Medi monika mg Wed07/27/22 Branch at 1015, PADMA ondansetron 2022-0 2023- No 4mg 4 mg, Slow Univers (ZOFRAN 2- 02-06 IV Push, ity of (PF)) 15:30: 15:32 ONCE, 1 [place] injection 4 00 :00 dose, On Medi monika mg Wed07/27/22 Branch at 0930, PADMA nirmatrelvi 2022-0 Yes [id number] 3{tbl} Take 3 Univers r-ritonavir 2-06 tablets by it y of (PAXLOVID, 00:00: mouth in [place] EUA,) 300 00 the Medical mg (150 mg morning Branch x 2)-100 mg and 3 tablet tablets in the evening. ondansetron 3-0 Yes [id number] 4mg Take 1 Univers 4 mg 2-06 tablet by ity of disintegrat 00:00: mouth [place] ing tablet 00 every 8 Medica l (eight) Branch hours as needed for Nausea and Vomiting (N/V). nirmatrelvi 2022-0 Yes [id number] 3{tbl} Take 3 Univers r-ritonavir 2-06 tablets by it y of (PAXLOVID, 00:00: mouth in [place] EUA,) 300 00 the Medical mg (150 mg morning Branch x 2)-100 mg and 3 tablet tablets in the evening. ondansetron 3-0 Yes [id number] 4mg Take 1 Univers 4 mg 2-06 tablet by ity of disintegrat 00:00: mouth [place] ing tablet 00 every 8 Medica l (eight) Branch hours as needed for Nausea and Vomiting (N/V). nirmatrelvi 2022-0 Yes [id number] 3{tbl} Take 3 Univers r-ritonavir 2-06 tablets by it y of (PAXLOVID, 00:00: mouth in [place] EUA,) 300 00 the Medical mg (150 mg morning Branch x 2)-100 mg and 3 tablet tablets in the evening. ondansetron 2023-0 Yes [id number] 4mg Take 1 Univers 4 mg 2-06 tablet by ity of disintegrat 00:00: mouth [place] ing tablet 00 every 8 Medica l (eight) Branch hours as needed for Nausea and Vomiting (N/V). nirmatrelvi 3-0 Yes [id number] 3{tbl} Take 3 Univers r-ritonavir 2-06 tablets by it y of (PAXLOVID, 00:00: mouth in [place] EUA,) 300 00 the Medical mg (150 mg morning Branch x 2)-100 mg and 3 tablet tablets in the evening. ondansetron 2023-0 Yes [id number] 4mg Take 1 Univers 4 mg 2-06 tablet by ity of disintegrat 00:00: mouth [place] ing tablet 00 every 8 Medica l (eight) Branch hours as needed for Nausea and Vomiting (N/V). ondansetron 3-0 Yes [id number] 4mg Take 1 Univers 4 mg 2-06 tablet by ity of disintegrat 00:00: mouth [place] ing tablet 00 every 8 Medica l (eight) Branch hours as needed for Nausea and Vomiting (N/V). ondansetron 3-0 Yes [id number] 4mg Take 1 Univers 4 mg 2-06 tablet by ity of disintegrat 00:00: mouth [place] ing tablet 00 every 8 Medica l (eight) Branch hours as needed for Nausea and Vomiting (N/V). ondansetron 2023-0 Yes [id number] 4mg Take 1 Univers 4 mg 2-06 tablet by ity of disintegrat 00:00: mouth [place] ing tablet 00 every 8 Medica l (eight) Branch hours as needed for Nausea and Vomiting (N/V). ondansetron 2023-0 Yes [id number] 4mg Take 1 Univers 4 mg 2-06 tablet by ity of disintegrat 00:00: mouth [place] ing tablet 00 every 8 Medica l (eight) Branch hours as needed for Nausea and Vomiting (N/V). ondansetron 2023-0 Yes [id number] 4mg Take 1 Univers 4 mg 2-06 tablet by ity of disintegrat 00:00: mouth [place] ing tablet 00 every 8 Medica l (eight) Branch hours as needed for Nausea and Vomiting (N/V). ondansetron 2023-0 Yes [id number] 4mg Take 1 Univers 4 mg 2-06 tablet by ity of disintegrat 00:00: mouth [place] ing tablet 00 every 8 Medica l (eight) Branch hours as needed for Nausea and Vomiting (N/V). ondansetron 2023-0 Yes [id number] 4mg Take 1 Univers 4 mg 2-06 tablet by ity of disintegrat 00:00: mouth [place] ing tablet 00 every 8 Medica l (eight) Branch hours as needed for Nausea and Vomiting (N/V). ondansetron 2023-0 Yes [id number] 4mg Take 1 Univers 4 mg 2-06 tablet by ity of disintegrat 00:00: mouth [place] ing tablet 00 every 8 Medica l (eight) Branch hours as needed for Nausea and Vomiting (N/V). ondansetron 2023-0 Yes [id number] 4mg Take 1 Univers 4 mg 2-06 tablet by ity of disintegrat 00:00: mouth [place] ing tablet 00 every 8 Medica l (eight) Branch hours as needed for Nausea and Vomiting (N/V). ondansetron 2023-0 Yes [id number] 4mg Take 1 Univers 4 mg 2-06 tablet by ity of disintegrat 00:00: mouth [place] ing tablet 00 every 8 Medica l (eight) Branch hours as needed for Nausea and Vomiting (N/V). ondansetron 2023-0 Yes [id number] 4mg Take 1 Univers 4 mg 2-06 tablet by ity of disintegrat 00:00: mouth [place] ing tablet 00 every 8 Medica l (eight) Branch hours as needed for Nausea and Vomiting (N/V). ondansetron 2023-0 Yes [id number] 4mg Take 1 Univers 4 mg 2-06 tablet by ity of disintegrat 00:00: mouth [place] ing tablet 00 every 8 Medica l (eight) Branch hours as needed for Nausea and Vomiting (N/V). ondansetron 2023-0 Yes [id number] 4mg Take 1 Univers 4 mg 2-06 tablet by ity of disintegrat 00:00: mouth [place] ing tablet 00 every 8 Medica l (eight) Branch hours as needed for Nausea and Vomiting (N/V). ondansetron 2023-0 Yes [id number] 4mg Take 1 Univers 4 mg 2-06 tablet by ity of disintegrat 00:00: mouth [place] ing tablet 00 every 8 Medica l (eight) Branch hours as needed for Nausea and Vomiting (N/V). ondansetron 2023-0 Yes [id number] 4mg Take 1 Univers 4 mg 2-06 tablet by ity of disintegrat 00:00: mouth [place] ing tablet 00 every 8 Medica l (eight) Branch hours as needed for Nausea and Vomiting (N/V). ondansetron 2023-0 Yes [id number] 4mg Take 1 Univers 4 mg 2-06 tablet by ity of disintegrat 00:00: mouth [place] ing tablet 00 every 8 Medica l (eight) Branch hours as needed for Nausea and Vomiting (N/V). ondansetron 2023-0 Yes [id number] 4mg Take 1 Univers 4 mg 2-06 tablet by ity of disintegrat 00:00: mouth [place] ing tablet 00 every 8 Medica l (eight) Branch hours as needed for Nausea and Vomiting (N/V). ondansetron 2023-0 2023- No [id number] 4mg Take 1 Univers 4 mg 2-06 06-08 tablet by ity of disintegrat 00:00: 00:00 mouth [place] ing tablet 00 :00 every 8 Medica l (eight) Branch hours as needed for Nausea and Vomiting (N/V). ondansetron 2023-0 2023- No [id number] 4mg Take 1 Univers 4 mg 2-06 06-08 tablet by ity of disintegrat 00:00: 00:00 mouth [place] ing tablet 00 :00 every 8 Medica l (eight) Branch hours as needed for Nausea and Vomiting (N/V). ondansetron 2023-0 2023- No [id number] 4mg Take 1 Univers 4 mg 2-06 06-08 tablet by ity of disintegrat 00:00: 00:00 mouth [place] ing tablet 00 :00 every 8 Medica l (eight) Branch hours as needed for Nausea and Vomiting (N/V). ondansetron 2023-0 2023- No [id number] 4mg Take 1 Univers 4 mg 2-06 06-08 tablet by ity of disintegrat 00:00: 00:00 mouth [place] ing tablet 00 :00 every 8 Medica l (eight) Branch hours as needed for Nausea and Vomiting (N/V). [facility] No [id number] 3{tbl} Take 3 Univers r-ritonavir 2-11 21-30 tablets by i ty of (PAXLOVID, 00:00: 00:00 mouth in [place] EUA,) 300 00 :00 the Medical mg (150 mg morning Branch x 2)-100 mg and 3 tablet tablets in the evening. [facility] No [id number] 3{tbl} Take 3 Univers r-ritonavir 2-11 21-30 tablets by i ty of (PAXLOVID, 00:00: 00:00 mouth in [place] EUA,) 300 00 :00 the Medical mg (150 mg morning Branch x 2)-100 mg and 3 tablet tablets in the evening. [facility] No [id number] 3{tbl} Take 3 Univers r-ritonavir 2-11 21-30 tablets by i ty of (PAXLOVID, 00:00: 00:00 mouth in [place] EUA,) 300 00 :00 the Medical mg (150 mg morning Branch x 2)-100 mg and 3 tablet tablets in the evening. [facility] No [id number] 3{tbl} Take 3 Univers r-ritonavir 2-11 21-30 tablets by i ty of (PAXLOVID, 00:00: 00:00 mouth in [place] EUA,) 300 00 :00 the Medical mg (150 mg morning Branch x 2)-100 mg and 3 tablet tablets [facility] the evening. [facility] [id number] 3{tbl} Take 3 Univers r-ritonavir 2-11 21-30 tablets by i ty of (PAXLOVID, 00:00: 00:00 mouth in [place] EUA,) 300 00 :00 the Medical mg (150 mg morning Branch x 2)-100 mg and 3 tablet tablets in the evening. D10W 10 % 2021-06 Yes at 20-40 Univ ers IV infusion 2-29 mL/hr, IV ity of 16:28: Infusion, [place] 11 TITRATE, Medical Starting Branch on [place] 06/18/22 at 1028, Until Discontinu ed, Routine, CV Preprocedu re D10W 10 % 2021-06- No at 20-40 Uni vers IV infusion 12 mL/hr, IV it y of 16:28: 20:34 Infusion, [place] 11 :21 TITRATE, Medical Starting Branch on [place] 06/18/22 at 1028, Until [place] 06/18/22 at 1434, Routine, CV Preprocedu re iopamidol 2021-06- No ONCE INTRA U nivers (ISOVUE 06-18 PROCEDURE, ity o f 370-500 mL) 15:56: 16:17 Starting [place] injection 00 :44 on [facility] 06/18/22 Branch at 0956, Until [facility] 06/18/22 at 1017, Routine, CV Intraproce dure nitroglycer 2021-06- No ONCE INTRA Univers in (TRIDIL) 06-18 PROCEDURE, i ty of 2 mg in 10 15:41: 16:17 [place] mL D5W for 29 :44 on [facility] Cardiac 06/18/22 Branch Cath at 0941, Until [facility] 06/18/22 at 1017, Routine, CV Intraproce dure heparin 2021-06- No ONCE INTRA Uni vers 1,000 06-18 PROCEDURE, ity of unit/mL 15:41: 16:17 Starting [place] injection 09 :44 on [facility] 06/18/22 Branch at 0941, Until [facility] 06/18/22 at 1017, Routine, CV Intraproce dure lidocaine 2021-06- No ONCE INTRA U nivers 1% (PF) 06-18 PROCEDURE, ity o f (XYLOCAINE) 15:34: 16:17 Starting [place] injection 00 :44 on [facility] 06/18/22 Branch at 0934, Until [facility] 06/18/22 at 1017, Routine, CV Intraproce dure midazolam 2021-06- No ONCE INTRA U nivers (VERSED) 06-18 PROCEDURE, ity of injection 15:22: 16:17 Starting [place] as 00 :44 on [facility] 06/18/22 Branch at 0922, Until [facility] 06/18/22 at 1017, Routine, CV Intraproce dure FENTanyl PF 2021-06- No ONCE INTRA Univers (SUBLIMAZE 06-18 PROCEDURE, it y of (PF)) 15:22: 16:17 Starting [place] injection 00 :44 on [facility] 06/18/22 Branch at 0922, Until [facility] 06/18/22 at 1017, Routine, CV Intraproce dure aspirin 2021-06 Yes [id number] 325mg 325 mg, U nivers tablet 325 Oral, ity of mg 15:00: DAILY, [place] 00 First dose Medical on [facility] 06/18/22 at 0900, Until Discontinu ed, Routine aspirin 2021-06- No [id number] 325mg 325 mg, Univers tablet 325 06-18 Oral, ity of mg 15:00: 20:34 DAILY, [place] 00 :21 First dose Medical on [facility] 06/18/22 at 0900, Until Discontinu ed, Routine aspirin 2021-06 Yes 81mg Take 81 mg Univ ers (ADULT LOW 2-29 by mouth ity o f DOSE 12:29: daily. [place] ASPIRIN) 81 19 Medical mg EC Branch tablet CBD-KINGS 2021-06 Yes Apply to [facility] ers WITH 2-29 area(s). ity of LIDOCAINE 12:29: [place] TOPICAL 19 Medical Branch aspirin 2021-06 Yes 81mg Take 81 mg Univ ers (ADULT LOW 2-29 by mouth ity o f DOSE 12:29: daily. [place] ASPIRIN) 81 19 Medical mg EC Branch tablet CBD-KINGS 2021-06 Yes Apply to [facility] ers WITH 2-29 area(s). ity of LIDOCAINE 12:29: [place] TOPICAL 19 Medical Branch aspirin 2021-06 Yes 81mg Take 81 mg Univ ers (ADULT LOW 2-29 by mouth ity o f DOSE 12:29: daily. [place] ASPIRIN) 81 19 Medical mg EC Branch tablet CBD-KINGS 2021-06 Yes Apply to [facility] ers WITH 2-29 area(s). ity of LIDOCAINE [...] 19 Medical mg EC Branch tablet aspirin 2021-06 Yes 81mg Take 81 mg Univ ers (ADULT LOW 2-29 by mouth ity o f DOSE 12:29: daily. [place] ASPIRIN) 81 19 Medical mg EC Branch tablet aspirin 2021-06 Yes 81mg Take 81 mg Univ ers (ADULT LOW 2-29 by mouth ity o f DOSE 12:29: daily. [place] ASPIRIN) 81 19 Medical mg EC Branch tablet aspirin 2021-06 Yes 81mg Take 81 mg Univ ers (ADULT LOW 2-29 by mouth ity o f DOSE 06:26: daily. [place] ASPIRIN) 81 18 Medical mg EC Branch tablet CBD-KINGS 2021-06 Yes Apply to Univ ers WITH 2-29 area(s). ity of LIDOCAINE 06:26: [place] TOPICAL 18 Medical Branch lisinopriL 2021-06 Yes [id number] 20mg Take 1 U nivers 20 mg 2-29 tablet by ity of tablet 00:00: mouth in [place] 00 the Medical morning. Branch lisinopriL 2021-06 Yes [id number] 20mg Take 1 U nivers 20 mg 2-29 tablet by ity of tablet 00:00: mouth in [place] 00 the Medical morning. Branch lisinopriL 2021-06 Yes [id number] 20mg Take 1 U nivers 20 mg 2-29 tablet by ity of tablet 00:00: mouth in [place] 00 the Medical morning. Branch lisinopriL 2021-06 Yes [id number] 20mg Take 1 U nivers 20 mg 2-29 tablet by ity of tablet 00:00: mouth in [place] 00 the Medical morning. Branch lisinopriL 2021-06 Yes [id number] 20mg Take 1 U nivers 20 mg 2-29 tablet by ity of tablet 00:00: mouth in [place] 00 the Medical morning. Branch lisinopriL 2021-06 Yes [id number] 20mg Take 1 U nivers 20 mg 2-29 tablet by ity of tablet 00:00: mouth in [place] 00 the Medical morning. Branch lisinopriL 2021-06 Yes [id number] 20mg Take 1 U nivers 20 mg 2-29 tablet by ity of tablet 00:00: mouth in [place] 00 the Medical morning. Branch lisinopriL 2021-06 Yes [id number] 20mg Take 1 U nivers 20 mg 2-29 tablet by ity of tablet 00:00: mouth in [place] 00 the Medical morning. Branch lisinopriL 2021-06 Yes [id number] 20mg Take 1 U nivers 20 mg 2-29 tablet by ity of tablet 00:00: mouth in [place] 00 the Medical morning. Branch lisinopriL 2021-063- No [id number] 20mg Take 1 Univers 20 mg 2-29 03-28 tablet by ity of tablet 00:00: 00:00 mouth in [place] 00 :00 the Medical morning. Branch nystatin 2021-06 Yes [id number] Apply to Univers 100,000 2-12 area(s) 2 ity of unit/gram 00:00: (two) [place] powder 00 times Medical daily. Branch nystatin 2021-06 Yes [id number] Apply to Univers 100,000 2-12 area(s) 2 ity of unit/gram 00:00: (two) [place] powder 00 times Medical daily. Branch nystatin 2021-06 Yes [id number] Apply to Univers 100,000 2-12 area(s) 2 ity of unit/gram 00:00: (two) [place] powder 00 times Medical daily. Branch nystatin 2021-06 Yes [id number] Apply to Univers 100,000 2-12 area(s) 2 ity of unit/gram 00:00: (two) [place] powder 00 times Medical daily. Branch nystatin 2021-06 Yes [id number] Apply to Univers 100,000 2-12 area(s) 2 ity of unit/gram 00:00: (two) [place] powder 00 times Medical daily. Branch nystatin 2021-06 Yes [id number] Apply to Univers 100,000 2-12 area(s) 2 ity of unit/gram 00:00: (two) [place] powder 00 times Medical daily. Branch nystatin 2021-06 Yes [id number] Apply to Univers 100,000 2-12 area(s) 2 ity of unit/gram 00:00: (two) [place] powder 00 times Medical daily. Branch nystatin 2021-1 Yes [id number] Apply to Univers 100,000 2-12 area(s) 2 ity of unit/gram 00:00: (two) [place] powder 00 times Medical daily. Branch nystatin 2021- Yes [id number] Apply to Univers 100,000 2-12 area(s) 2 ity of unit/gram 00:00: (two) [place] powder 00 times Medical daily. Branch nystatin 2021- Yes [id number] Apply to Univers 100,000 2-12 area(s) 2 ity of unit/gram 00:00: (two) [place] powder 00 times Medical daily. Branch nystatin 2021- Yes [id number] Apply to Univers 100,000 2-12 area(s) 2 ity of unit/gram 00:00: (two) [place] powder 00 times Medical daily. Branch nystatin 2021- Yes [id number] Apply to Univers 100,000 2-12 area(s) 2 ity of unit/gram 00:00: (two) [place] powder 00 times Medical daily. Branch nystatin 2021- Yes [id number] Apply to Univers 100,000 2-12 area(s) 2 ity of unit/gram 00:00: (two) [place] powder 00 times Medical daily. Branch nystatin 2021-06 Yes [id number] Apply to Univers 100,000 2-12 area(s) 2 ity of unit/gram 00:00: (two) [place] powder 00 times Medical daily. Branch nystatin 2021-06 Yes [id number] Apply to Univers 100,000 2-12 area(s) 2 ity of unit/gram 00:00: (two) [place] powder 00 times Medical daily. Branch nystatin 2021- Yes [id number] Apply to Univers 100,000 2-12 area(s) 2 ity of unit/gram 00:00: (two) [place] powder 00 times Medical daily. Branch nystatin 2021- Yes [id number] Apply to Univers 100,000 2-12 area(s) 2 ity of unit/gram 00:00: (two) [place] powder 00 times Medical daily. Branch nystatin 2021- Yes [id number] Apply to Univers 100,000 2-12 area(s) 2 ity of unit/gram 00:00: (two) [place] powder 00 times Medical daily. Branch nystatin 2021-1 Yes [id number] Apply to Univers 100,000 2-12 area(s) 2 ity of unit/gram 00:00: (two) [place] powder 00 times Medical daily. Branch nystatin 2021- Yes [id number] Apply to Univers 100,000 2-12 area(s) 2 ity of unit/gram 00:00: (two) [place] powder 00 times Medical daily. Branch nystatin 2021-1 Yes [id number] Apply to Univers 100,000 2-12 area(s) 2 ity of unit/gram 00:00: (two) [place] powder 00 times Medical daily. Branch nystatin 2021-1 Yes [id number] Apply to Univers 100,000 2-12 area(s) 2 ity of unit/gram 00:00: (two) [place] powder 00 times Medical daily. Branch nystatin 2021-1 Yes [id number] Apply to Univers 100,000 2-12 area(s) 2 ity of unit/gram 00:00: (two) [place] powder 00 times Medical daily. Branch nystatin 2021-1 Yes [id number] Apply to Univers 100,000 2-12 area(s) 2 ity of unit/gram 00:00: (two) [place] powder 00 times Medical daily. Branch nystatin 2021- Yes [id number] Apply to Univers 100,000 2-12 area(s) 2 ity of unit/gram 00:00: (two) [place] powder 00 times Medical daily. Branch nystatin 2021- Yes [id number] Apply to Univers 100,000 2-12 area(s) 2 ity of unit/gram 00:00: (two) [place] powder 00 times Medical daily. Branch nystatin 2021-1 Yes [id number] Apply to Univers 100,000 2-12 area(s) 2 ity of unit/gram 00:00: (two) [place] powder 00 times Medical daily. Branch nystatin 2021-1 Yes [id number] Apply to Univers 100,000 2-12 area(s) 2 ity of unit/gram 00:00: (two) [place] powder 00 times Medical daily. Branch nystatin 2021-1 Yes [id number] Apply to Univers 100,000 2-12 area(s) 2 ity of unit/gram 00:00: (two) [place] powder 00 times Medical daily. Branch nystatin 2021-1 Yes [id number] Apply to Univers 100,000 2-12 area(s) 2 ity of unit/gram 00:00: (two) [place] powder 00 times Medical daily. Branch nystatin 2021-1 Yes [id number] Apply to Univers 100,000 2-12 area(s) 2 ity of unit/gram 00:00: (two) [place] powder 00 times Medical daily. Branch nystatin 2021- Yes [id number] Apply to Univers 100,000 2-12 area(s) 2 ity of unit/gram 00:00: (two) [place] powder 00 times Medical daily. Branch nystatin 2021- Yes [id number] Apply to Univers 100,000 2-12 area(s) 2 ity of unit/gram 00:00: (two) [place] powder 00 times Medical daily. Branch nystatin 2021- Yes [id number] Apply to Univers 100,000 2-12 area(s) 2 ity of unit/gram 00:00: (two) [place] powder 00 times Medical daily. Branch nystatin 2021- Yes [id number] Apply to Univers 100,000 2-12 area(s) 2 ity of unit/gram 00:00: (two) [place] powder 00 times Medical daily. Branch nystatin 2021- Yes [id number] Apply to Univers 100,000 2-12 area(s) 2 ity of unit/gram 00:00: (two) [place] powder 00 times Medical daily. Branch nystatin 2021-06 Yes [id number] Apply to Univers 100,000 2-12 area(s) 2 ity of unit/gram 00:00: (two) [place] powder 00 times Medical daily. Branch nystatin 2021-06 Yes [id number] Apply to Univers 100,000 2-12 area(s) 2 ity of unit/gram 00:00: (two) [place] powder 00 times Medical daily. Branch nystatin 2021- Yes [id number] Apply to Univers 100,000 2-12 area(s) 2 ity of unit/gram 00:00: (two) [place] powder 00 times Medical daily. Branch nystatin 2021- Yes [id number] Apply to Univers 100,000 2-12 area(s) 2 ity of unit/gram 00:00: (two) [place] powder 00 times Medical daily. Branch nystatin 2021- Yes [id number] Apply to Univers 100,000 2-12 area(s) 2 ity of unit/gram 00:00: (two) [place] powder 00 times Medical daily. Branch nystatin 2021-06 Yes [id number] Apply to Univers 100,000 2-12 area(s) 2 ity of unit/gram 00:00: (two) [place] powder 00 times Medical daily. Branch nystatin 2021-06 Yes [id number] Apply to Univers 100,000 2-12 area(s) 2 ity of unit/gram 00:00: (two) [place] powder 00 times Medical daily. Branch nystatin 2021-06 Yes [id number] Apply to Univers 100,000 2-12 area(s) 2 ity of unit/gram 00:00: (two) [place] powder 00 times Medical daily. Branch nystatin 2021-06 Yes [id number] Apply to Univers 100,000 2-12 area(s) 2 ity of unit/gram 00:00: (two) [place] powder 00 times Medical daily. Branch nystatin 2021-06 Yes [id number] Apply to Univers 100,000 2-12 area(s) 2 ity of unit/gram 00:00: (two) [place] powder 00 times Medical daily. Branch nystatin 2021-06 Yes [id number] Apply to Univers 100,000 2-12 area(s) 2 ity of unit/gram 00:00: (two) [place] powder 00 times Medical daily. Branch nystatin 2021-06 Yes [id number] Apply to [facility] 100,000 2-12 area(s) 2 ity of unit/gram 00:00: (two) [place] powder 00 times Medical daily. Branch nystatin 2021-06- No [id number] Apply to [facility] 100,000 2-12 08-11 area(s) 2 ity of unit/gram 00:00: 00:00 (two) [place] powder 00 :00 times Medical daily. Branch nystatin 2021-06- No [id number] Apply to [facility] 100,000 2-12 08-11 area(s) 2 ity of unit/gram 00:00: 00:00 (two) [place] powder 00 :00 times Medical daily. Branch fluconazole 2021-06- No [id number] 150mg Take 1 [facility] 150 mg 08-02 tablet by ity of tablet 00:00: 05:59 mouth [place] 00 :00 every 4 Medical (four) Branch days for 4 doses. promethazin 2021-06 Yes [id number] 5mL Take 5 mL [facility] e-dextromet 1-29 by mouth 4 it y of horphan 00:00: (four) [place] 6.25-15 00 times Medical mg/5 mL daily as Branch syrup needed for Cough. promethazin 2021-06 Yes [id number] 5mL Take 5 mL [facility] e-dextromet 1-29 by mouth 4 it y of horphan 00:00: (four) [place] 6.25-15 00 times Medical mg/5 mL daily as Branch syrup needed for Cough. promethazin 2021-06 Yes [id number] 5mL Take 5 mL [facility] e-dextromet 1-29 by mouth 4 it y of horphan 00:00: (four) [place] 6.25-15 00 times Medical mg/5 mL daily as Branch syrup needed for Cough. promethazin 2021-06 Yes [id number] 5mL Take 5 mL [facility] e-dextromet 1-29 by mouth 4 it y of horphan 00:00: (four) [place] 6.25-15 00 times Medical mg/5 mL daily as Branch syrup needed for Cough. promethazin 2021-06 Yes [id number] 5mL Take 5 mL [facility] e-dextromet 1-29 by mouth 4 it y of horphan 00:00: (four) [place] 6.25-15 00 times Medical mg/5 mL daily as Branch syrup needed for Cough. promethazin 2021-06 Yes [id number] 5mL Take 5 mL [facility] e-dextromet 1-29 by mouth 4 it y of horphan 00:00: (four) [place] 6.25-15 00 times Medical mg/5 mL daily as Branch syrup needed for Cough. promethazin 2021-06 Yes [id number] 5mL Take 5 mL [facility] e-dextromet 1-29 by mouth 4 it y of horphan 00:00: (four) [place] 6.25-15 00 times Medical mg/5 mL daily as Branch syrup needed for Cough. promethazin 2021-06 Yes [id number] 5mL Take 5 mL [facility] e-dextromet 1-29 by mouth 4 it y of horphan 00:00: (four) [place] 6.25-15 00 times Medical mg/5 mL daily as Branch syrup needed for Cough. promethazin 2021-06 Yes [id number] 5mL Take 5 mL [facility] e-dextromet 1-29 by mouth 4 it y of horphan 00:00: (four) [place] 6.25-15 00 times Medical mg/5 mL daily as Branch syrup needed for Cough. promethazin 2021-06 Yes [id number] 5mL Take 5 mL [facility] e-dextromet 1-29 by mouth 4 it y of horphan 00:00: (four) [place] 6.25-15 00 times Medical mg/5 mL daily as Branch syrup needed for Cough. promethazin 2021-06 Yes [id number] 5mL Take 5 mL [facility] e-dextromet 1-29 by mouth 4 it y of horphan 00:00: (four) [place] 6.25-15 00 times Medical mg/5 mL daily as Branch syrup needed for Cough. promethazin 2021-06 Yes [id number] 5mL Take 5 mL [facility] e-dextromet 1-29 by mouth 4 it y of horphan 00:00: (four) [place] 6.25-15 00 times Medical mg/5 mL daily as Branch syrup needed for Cough. promethazin 2021-06 Yes [id number] 5mL Take 5 mL [facility] e-dextromet 1-29 by mouth 4 it y of horphan 00:00: (four) [place] 6.25-15 00 times Medical mg/5 mL daily as Branch syrup needed for Cough. promethazin 2021-06 Yes [id number] 5mL Take 5 mL [facility] e-dextromet 1-29 by mouth 4 it y of horphan 00:00: (four) [place] 6.25-15 00 times Medical mg/5 mL daily as Branch syrup needed for Cough. promethazin 2021-06 Yes [id number] 5mL Take 5 mL [facility] e-dextromet 1-29 by mouth 4 it y of horphan 00:00: (four) [place] 6.25-15 00 times Medical mg/5 mL daily as Branch syrup needed for Cough. promethazin 2021-06 Yes [id number] 5mL Take 5 mL [facility] e-dextromet 1-29 by mouth 4 it y of horphan 00:00: (four) [place] 6.25-15 00 times Medical mg/5 mL daily as Branch syrup needed for Cough. promethazin 2021-06 Yes [id number] 5mL Take 5 mL [facility] e-dextromet 1-29 by mouth 4 it y of horphan 00:00: (four) [place] 6.25-15 00 times Medical mg/5 mL daily as Branch syrup needed for Cough. promethazin 2021-06 Yes [id number] 5mL Take 5 mL [facility] e-dextromet 1-29 by mouth 4 it y of horphan 00:00: (four) [place] 6.25-15 00 times Medical mg/5 mL daily as Branch syrup needed for Cough. promethazin 2021-06 Yes [id number] 5mL Take 5 mL [facility] e-dextromet 1-29 by mouth 4 it y of horphan 00:00: (four) [place] 6.25-15 00 times Medical mg/5 mL daily as Branch syrup needed for Cough. promethazin 2021-06 Yes [id number] 5mL Take 5 mL [facility] e-dextromet 1-29 by mouth 4 it y of horphan 00:00: (four) [place] 6.25-15 00 times Medical mg/5 mL daily as Branch syrup needed for Cough. promethazin 2021-06 Yes [id number] 5mL Take 5 mL [facility] e-dextromet 1-29 by mouth 4 it y of horphan 00:00: (four) [place] 6.25-15 00 times Medical mg/5 mL daily as Branch syrup needed for Cough. promethazin 2021-06 Yes [id number] 5mL Take 5 mL [facility] e-dextromet 1-29 by mouth 4 it y of horphan 00:00: (four) [place] 6.25-15 00 times Medical mg/5 mL daily as Branch syrup needed for Cough. promethazin 2021-06 Yes [id number] 5mL Take 5 mL [facility] e-dextromet 1-29 by mouth 4 it y of horphan 00:00: (four) [place] 6.25-15 00 times Medical mg/5 mL daily as Branch syrup needed for Cough. promethazin 2021-06 Yes [id number] 5mL Take 5 mL [facility] e-dextromet 1-29 by mouth 4 it y of horphan 00:00: (four) [place] 6.25-15 00 times Medical mg/5 mL daily as Branch syrup needed for Cough. promethazin 2021-06 Yes [id number] 5mL Take 5 mL [facility] e-dextromet 1-29 by mouth 4 it y of horphan 00:00: (four) [place] 6.25-15 00 times Medical mg/5 mL daily as Branch syrup needed for Cough. promethazin 2021-06 Yes [id number] 5mL Take 5 mL [facility] e-dextromet 1-29 by mouth 4 it y of horphan 00:00: (four) [place] 6.25-15 00 times Medical mg/5 mL daily as Branch syrup needed for Cough. promethazin 2021-06 Yes [id number] 5mL Take 5 mL [facility] e-dextromet 1-29 by mouth 4 it y of horphan 00:00: (four) [place] 6.25-15 00 times Medical mg/5 mL daily as Branch syrup needed for Cough. promethazin 2021-06 Yes [id number] 5mL Take 5 mL [facility] e-dextromet 1-29 by mouth 4 it y of horphan 00:00: (four) [place] 6.25-15 00 times Medical mg/5 mL daily as Branch syrup needed for Cough. promethazin 2021-06 Yes [id number] 5mL Take 5 mL [facility] e-dextromet 1-29 by mouth 4 it y of horphan 00:00: (four) [place] 6.25-15 00 times Medical mg/5 mL daily as Branch syrup needed for Cough. promethazin 2021-06 Yes [id number] 5mL Take 5 mL [facility] e-dextromet 1-29 by mouth 4 it y of horphan 00:00: (four) [place] 6.25-15 00 times Medical mg/5 mL daily as Branch syrup needed for Cough. promethazin 2021-06 Yes [id number] 5mL Take 5 mL [facility] e-dextromet 1-29 by mouth 4 it y of horphan 00:00: (four) [place] 6.25-15 00 times Medical mg/5 mL daily as Branch syrup needed for Cough. promethazin 2021-06- No [id number] 5mL Take 5 mL [facility] e-dextromet 1-29 06-08 by mouth 4 i ty of horphan 00:00: 00:00 (four) [place] 6.25-15 00 :00 times Medical mg/5 mL daily as Branch syrup needed for Cough. promethazin 2021-06- No [id number] 5mL Take 5 mL [facility] e-dextromet 07-19-08 by mouth 4 i ty of horphan 00:00: 00:00 (four) [place] 6.25-15 00 :00 times Medical mg/5 mL daily as Branch syrup needed for Cough. promethazin 2021-06- No [id number] 5mL Take 5 mL [facility] e-dextromet 07-19-08 by mouth 4 i ty of horphan 00:00: 00:00 (four) [place] 6.25-15 00 :00 times Medical mg/5 mL daily as Branch syrup needed for Cough. promethazin 2021-06- No [id number] 5mL Take 5 mL [facility] e-dextromet 07-19-08 by mouth 4 i ty of horphan 00:00: 00:00 (four) [place] 6.25-15 00 :00 times Medical mg/5 mL daily as Branch syrup needed for Cough. ESCITALOPRA 2021-06 Yes [id number] TAKE 1 [facility] M OXALATE 1-02 TABLET BY ity o f 10 mg 00:00: MOUTH [place] tablet 00 EVERY DAY Medical Branch ESCITALOPRA 2021-06 Yes [id number] TAKE 1 [facility] M OXALATE 1-02 TABLET BY ity o f 10 mg 00:00: MOUTH [place] tablet 00 EVERY DAY Medical Branch ESCITALOPRA 2021-06 Yes [id number] TAKE 1 [facility] M OXALATE 1-02 TABLET BY ity o f 10 mg 00:00: MOUTH [place] tablet 00 EVERY DAY Medical Branch ESCITALOPRA 2021-06 Yes [id number] TAKE 1 [facility] M OXALATE 1-02 TABLET BY ity o f 10 mg 00:00: MOUTH [place] tablet 00 EVERY DAY Medical Branch ESCITALOPRA 2021-06 Yes [id number] TAKE 1 [facility] M OXALATE 1-02 TABLET BY ity o f 10 mg 00:00: MOUTH [place] tablet 00 EVERY DAY Medical Branch ESCITALOPRA 2021-06 Yes [id number] TAKE 1 [facility] M OXALATE 1-02 TABLET BY ity o f 10 mg 00:00: MOUTH [place] tablet 00 EVERY DAY Medical Branch ESCITALOPRA 2021-06 Yes [id number] TAKE 1 [facility] M OXALATE 1-02 TABLET BY ity o f 10 mg 00:00: MOUTH [place] tablet 00 EVERY DAY Medical Branch ESCITALOPRA 2021-06 Yes [id number] TAKE 1 [facility] M OXALATE 1-02 TABLET BY ity o f 10 mg 00:00: MOUTH [place] tablet 00 EVERY DAY Medical Branch ESCITALOPRA 2021-06 Yes [id number] TAKE 1 [facility] M OXALATE 1-02 TABLET BY ity o f 10 mg 00:00: MOUTH [place] tablet 00 EVERY DAY Medical Branch ESCITALOPRA 2021-06 Yes [id number] TAKE 1 [facility] M OXALATE 1-02 TABLET BY ity o f 10 mg 00:00: MOUTH [place] tablet 00 EVERY DAY Medical Branch ESCITALOPRA 2021-06 Yes [id number] TAKE 1 [facility] M OXALATE 1-02 TABLET BY ity o f 10 mg 00:00: MOUTH [place] tablet 00 EVERY DAY Medical Branch ESCITALOPRA 2021-06 Yes [id number] TAKE 1 [facility] M OXALATE 1-02 TABLET BY ity o f 10 mg 00:00: MOUTH [place] tablet 00 EVERY DAY Medical Branch ESCITALOPRA 2021-06 Yes [id number] TAKE 1 [facility] M OXALATE 1-02 TABLET BY ity o f 10 mg 00:00: MOUTH [place] tablet 00 EVERY DAY Medical Branch ESCITALOPRA 2021-06 Yes [id number] TAKE 1 [facility] M OXALATE 1-02 TABLET BY ity o f 10 mg 00:00: MOUTH [place] tablet 00 EVERY DAY Medical Branch ESCITALOPRA 2021-06 Yes [id number] TAKE 1 [facility] M OXALATE 1-02 TABLET BY ity o f 10 mg 00:00: MOUTH [place] tablet 00 EVERY DAY Medical Branch ESCITALOPRA 2021-06 Yes [id number] TAKE 1 [facility] M OXALATE 1-02 TABLET BY ity o f 10 mg 00:00: MOUTH [place] tablet 00 EVERY DAY Medical Branch ESCITALOPRA 2021-06 Yes [id number] TAKE 1 [facility] M OXALATE 1-02 TABLET BY ity o f 10 mg 00:00: MOUTH [place] tablet 00 EVERY DAY Medical Branch ESCITALOPRA 2021-06 Yes [id number] TAKE 1 [facility] M OXALATE 1-02 TABLET BY ity o f 10 mg 00:00: MOUTH [place] tablet 00 EVERY DAY Medical Branch ESCITALOPRA 2021-06 Yes [id number] TAKE 1 [facility] M OXALATE 1-02 TABLET BY ity o f 10 mg 00:00: MOUTH [place] tablet 00 EVERY DAY Medical Branch ESCITALOPRA 2021-06 Yes [id number] TAKE 1 [facility] M OXALATE 1-02 TABLET BY ity o f 10 mg 00:00: MOUTH [place] tablet 00 EVERY DAY Medical Branch ESCITALOPRA 2021-06 Yes [id number] TAKE 1 [facility] M OXALATE 1-02 TABLET BY ity o f 10 mg 00:00: MOUTH [place] tablet 00 EVERY DAY Medical Branch ESCITALOPRA 2021-06 Yes [id number] TAKE 1 [facility] M OXALATE 1-02 TABLET BY ity o f 10 mg 00:00: MOUTH [place] tablet 00 EVERY DAY Medical Branch ESCITALOPRA 2021-06 Yes [id number] TAKE 1 [facility] M OXALATE 1-02 TABLET BY ity o f 10 mg 00:00: MOUTH [place] tablet 00 EVERY DAY Medical Branch ESCITALOPRA 2021-06 Yes [id number] TAKE 1 [facility] M OXALATE 1-02 TABLET BY ity o f 10 mg 00:00: MOUTH [place] tablet 00 EVERY DAY Medical Branch ESCITALOPRA 2021-06 Yes [id number] TAKE 1 [facility] M OXALATE 1-02 TABLET BY ity o f 10 mg 00:00: MOUTH [place] tablet 00 EVERY DAY Medical Branch ESCITALOPRA 2021-06 Yes [id number] TAKE 1 [facility] M OXALATE 1-02 TABLET BY ity o f 10 mg 00:00: MOUTH [place] tablet 00 EVERY DAY Medical Branch ESCITALOPRA 2021-06 Yes [id number] TAKE 1 [facility] M OXALATE 1-02 TABLET BY ity o f 10 mg 00:00: MOUTH [place] tablet 00 EVERY DAY Medical Branch ESCITALOPRA 2021-06 Yes [id number] TAKE 1 [facility] M OXALATE 1-02 TABLET BY ity o f 10 mg 00:00: MOUTH [place] tablet 00 EVERY DAY Medical Branch ESCITALOPRA 2021-06 Yes [id number] TAKE 1 [facility] M OXALATE 1-02 TABLET BY ity o f 10 mg 00:00: MOUTH [place] tablet 00 EVERY DAY Medical Branch ESCITALOPRA 2021-06 Yes [id number] TAKE 1 [facility] M OXALATE 1-02 TABLET BY ity o f 10 mg 00:00: MOUTH [place] tablet 00 EVERY DAY Medical Branch ESCITALOPRA 2021-06 Yes [id number] TAKE 1 [facility] M OXALATE 1-02 TABLET BY ity o f 10 mg 00:00: MOUTH [place] tablet 00 EVERY DAY Medical Branch ESCITALOPRA 2021-06 Yes [id number] TAKE 1 [facility] M OXALATE 1-02 TABLET BY ity o f 10 mg 00:00: MOUTH [place] tablet 00 EVERY DAY Medical Branch ESCITALOPRA 2021-06 Yes [id number] TAKE 1 [facility] M OXALATE 1-02 TABLET BY ity o f 10 mg 00:00: MOUTH [place] tablet 00 EVERY DAY Medical Branch ESCITALOPRA 2021-06 Yes [id number] TAKE 1 [facility] M OXALATE 1-02 TABLET BY ity o f 10 mg 00:00: MOUTH [place] tablet 00 EVERY DAY Medical Branch ESCITALOPRA 2021-06 Yes [id number] TAKE 1 [facility] M OXALATE 1-02 TABLET BY ity o f 10 mg 00:00: MOUTH [place] tablet 00 EVERY DAY Medical Branch ESCITALOPRA 2021-06 Yes [id number] TAKE 1 [facility] M OXALATE 1-02 TABLET BY ity o f 10 mg 00:00: MOUTH [place] tablet 00 EVERY DAY Medical Branch ESCITALOPRA 2021-06 Yes [id number] TAKE 1 [facility] M OXALATE 1-02 TABLET BY ity o f 10 mg 00:00: MOUTH [place] tablet 00 EVERY DAY Medical Branch ESCITALOPRA 2021-06 Yes [id number] TAKE 1 [facility] M OXALATE 1-02 TABLET BY ity o f 10 mg 00:00: MOUTH [place] tablet 00 EVERY DAY Medical Branch ESCITALOPRA 2021-06 Yes [id number] TAKE 1 [facility] M OXALATE 1-02 TABLET BY ity o f 10 mg 00:00: MOUTH [place] tablet 00 EVERY DAY Medical Branch ESCITALOPRA 2021-06 Yes [id number] TAKE 1 [facility] M OXALATE 1-02 TABLET BY ity o f 10 mg 00:00: MOUTH [place] tablet 00 EVERY DAY Medical Branch ESCITALOPRA 2021-06 Yes [id number] TAKE 1 [facility] M OXALATE 1-02 TABLET BY ity o f 10 mg 00:00: MOUTH [place] tablet 00 EVERY DAY Medical Branch ESCITALOPRA 2021-06 Yes [id number] TAKE 1 [facility] M OXALATE 1-02 TABLET BY ity o f 10 mg 00:00: MOUTH [place] tablet 00 EVERY DAY Medical Branch ESCITALOPRA 2021-06 Yes [id number] TAKE 1 [facility] M OXALATE 1-02 TABLET BY ity o f 10 mg 00:00: MOUTH [place] tablet 00 EVERY DAY Medical Branch ESCITALOPRA 2021-06 Yes [id number] TAKE 1 [facility] M OXALATE 1-02 TABLET BY ity o f 10 mg 00:00: MOUTH [place] tablet 00 EVERY DAY Medical Branch ESCITALOPRA 2021-06 Yes [id number] TAKE 1 [facility] M OXALATE 1-02 TABLET BY ity o f 10 mg 00:00: MOUTH [place] tablet 00 EVERY DAY Medical Branch ESCITALOPRA 2021-06 Yes [id number] TAKE 1 [facility] M OXALATE 1-02 TABLET BY ity o f 10 mg 00:00: MOUTH [place] tablet 00 EVERY DAY Medical Branch ESCITALOPRA 2021-06 Yes [id number] TAKE 1 [facility] M OXALATE 1-02 TABLET BY ity o f 10 mg 00:00: MOUTH [place] tablet 00 EVERY DAY Medical Branch ESCITALOPRA 2021-06 Yes [id number] TAKE 1 [facility] M OXALATE 1-02 TABLET BY ity o f 10 mg 00:00: MOUTH [place] tablet 00 EVERY DAY Medical Branch ESCITALOPRA 2021-06 Yes [id number] TAKE 1 [facility] M OXALATE 1-02 TABLET BY ity o f 10 mg 00:00: MOUTH [place] tablet 00 EVERY DAY Medical Branch ESCITALOPRA 2021-06 Yes [id number] TAKE 1 [facility] M OXALATE 1-02 TABLET BY ity o f 10 mg 00:00: MOUTH [place] tablet 00 EVERY DAY Medical Branch ESCITALOPRA 2021-06 Yes [id number] TAKE 1 [facility] M OXALATE 1-02 TABLET BY ity o f 10 mg 00:00: MOUTH [place] tablet 00 EVERY DAY Medical Branch ESCITALOPRA 2021-06 Yes [id number] TAKE 1 [facility] M OXALATE 1-02 TABLET BY ity o f 10 mg 00:00: MOUTH [place] tablet 00 EVERY DAY Medical Branch ESCITALOPRA 2021-06 Yes [id number] TAKE 1 [facility] M OXALATE 1-02 TABLET BY ity o f 10 mg 00:00: MOUTH [place] tablet 00 EVERY DAY Medical Branch ESCITALOPRA 2021-06- No [id number] TAKE 1 [facility] M OXALATE 1-02 07-18 TABLET BY ity of 10 mg 00:00: 00:00 MOUTH [place] tablet 00 :00 EVERY DAY Medical Branch ESCITALOPRA 2021-06- No [id number] TAKE 1 [facility] M OXALATE 1-02 07-18 TABLET BY ity of 10 mg 00:00: 00:00 MOUTH [place] tablet 00 :00 EVERY DAY Medical Branch gentamicin 2021-06- No [id number] 80mg [facility] injection 0-10 10-10 [id number] ity of 80 mg 20:15: 19:07 [place] 00 :00 Medical Branch gentamicin 2021-06- No [id number] 80mg 80 mg, [facility] injection 0- [id number] Intramuscu i ty of 80 mg 20:15: 19:07 lar, ONCE, [place] 00 :00 1 dose, On [facility] 03/30/22 at 1515, PADMA
Re ason for Anti-Infec tive: Empiric Therapy for Suspected Infection< br>Empiric Therapy Site: Urine
D uration of therapy: 72 hours gentamicin 2021-06- No [id number] 80mg [facility] injection 0- [id number] ity of 80 mg 20:15: 19:07 [place] 00 :00 Medical Branch gentamicin 2021-06- No [id number] 80mg 80 mg, Univers injection 003-30 [id number] Intramuscu i ty of 80 mg 20:15: 19:07 lar, ONCE, [place] 00 :00 1 dose, On [facility] 03/30/22 at 1515, PADMA
Re ason for Anti-Infec tive: Empiric Therapy for Suspected Infection< br>Empiric Therapy Site: Urine
D uration of therapy: 72 hours GABAPENTIN 2021-06- No [id number] 300mg TAKE 1 [facility] 300 mg 0-11 28- CAPSULE BY ity of capsule 00:00: 04:59 MOUTH IN [place] 00 :00 THE [facility] Branch AND 1 CAPSULE AT NOON AND 1 CAPSULE IN THE EVENING. DO ALL THIS FOR 21 DAYS. GABAPENTIN 2021-06- No [id number] 300mg TAKE 1 [facility] 300 mg 0-11 28- CAPSULE BY ity of capsule 00:00: 04:59 MOUTH IN [place] 00 :00 THE [facility] Branch AND 1 CAPSULE AT NOON AND 1 CAPSULE IN THE EVENING. DO ALL THIS FOR 21 DAYS. GABAPENTIN 2021-06- No [id number] 300mg TAKE 1 [facility] 300 mg 0-11 28- CAPSULE BY ity of capsule 00:00: 04:59 MOUTH IN [place] 00 :00 THE [facility] Branch AND 1 CAPSULE AT NOON AND 1 CAPSULE IN THE EVENING. DO ALL THIS FOR 21 DAYS. GABAPENTIN 2021-06- No [id number] 300mg TAKE 1 [facility] 300 mg 0-06 10-28 CAPSULE BY ity of capsule 00:00: 04:59 MOUTH IN [place] 00 :00 THE Medical MORNING Branch AND 1 CAPSULE AT NOON AND 1 CAPSULE IN THE EVENING. DO ALL THIS FOR 21 DAYS. GABAPENTIN 2021-06- No [id number] 300mg TAKE 1 [facility] 300 mg 0-06 10-28 CAPSULE BY ity of capsule 00:00: 04:59 MOUTH IN [place] 00 :00 THE Medical MORNING Branch AND 1 CAPSULE AT NOON AND 1 CAPSULE IN THE EVENING. DO ALL THIS FOR 21 DAYS. Insulin Asp Yes [id number] INJECT 20 [facility] Prt-Insulin 9-14 UNITS ity of Aspart 00:00: UNDER THE [place] (NOVOLOG 00 SKIN 2 Medical MIX 70-30) (TWO) Branch 100 unit/mL TIMES (70-30) DAILY injection BEFORE BREAKFAST AND DINNER. Insulin Asp Yes [id number] INJECT 20 [facility] Prt-Insulin 9-14 UNITS ity of Aspart 00:00: UNDER THE [place] (NOVOLOG 00 SKIN 2 Medical MIX 70-30) (TWO) Branch 100 unit/mL TIMES (70-30) DAILY injection BEFORE BREAKFAST AND DINNER. Insulin Asp Yes [id number] INJECT 20 [facility] Prt-Insulin 9-14 UNITS ity of Aspart 00:00: UNDER THE [place] (NOVOLOG 00 SKIN 2 Medical MIX 70-30) (TWO) Branch 100 unit/mL TIMES (70-30) DAILY injection BEFORE BREAKFAST AND DINNER. Insulin Asp Yes [id number] INJECT 20 [facility] Prt-Insulin 9-14 UNITS ity of Aspart 00:00: UNDER THE [place] (NOVOLOG 00 SKIN 2 Medical MIX 70-30) (TWO) Branch 100 unit/mL TIMES (70-30) DAILY injection BEFORE BREAKFAST AND DINNER. Insulin Asp Yes [id number] INJECT 20 [facility] Prt-Insulin 9-14 UNITS ity of Aspart 00:00: UNDER THE [place] (NOVOLOG 00 SKIN 2 Medical MIX 70-30) (TWO) Branch 100 unit/mL TIMES (70-30) DAILY injection BEFORE BREAKFAST AND DINNER. Insulin Asp Yes [id number] INJECT 20 [facility] Prt-Insulin 9-14 UNITS ity of Aspart 00:00: UNDER THE [place] (NOVOLOG 00 SKIN 2 Medical MIX 70-30) (TWO) Branch 100 unit/mL TIMES (70-30) DAILY injection BEFORE BREAKFAST AND DINNER. Insulin Asp 2021-0 Yes [id number] INJECT 20 [facility] Prt-Insulin 9-14 UNITS ity of Aspart 00:00: UNDER THE [place] (NOVOLOG 00 SKIN 2 Medical MIX 70-30) (TWO) Branch 100 unit/mL TIMES (70-30) DAILY injection BEFORE BREAKFAST AND DINNER. Insulin Asp 0 Yes [id number] INJECT 20 [facility] Prt-Insulin 9-14 UNITS ity of Aspart 00:00: UNDER THE [place] (NOVOLOG 00 SKIN 2 Medical MIX 70-30) (TWO) Branch 100 unit/mL TIMES (70-30) DAILY injection BEFORE BREAKFAST AND DINNER. Insulin Asp 2021-0 Yes [id number] INJECT 20 [facility] Prt-Insulin 9-14 UNITS ity of Aspart 00:00: UNDER THE [place] (NOVOLOG 00 SKIN 2 Medical MIX 70-30) (TWO) Branch 100 unit/mL TIMES (70-30) DAILY injection BEFORE BREAKFAST AND DINNER. Insulin Asp 2021-0 Yes [id number] INJECT 20 [facility] Prt-Insulin 9-14 UNITS ity of Aspart 00:00: UNDER THE [place] (NOVOLOG 00 SKIN 2 Medical MIX 70-30) (TWO) Branch 100 unit/mL TIMES (70-30) DAILY injection BEFORE BREAKFAST AND DINNER. Insulin Asp 2021- Yes [id number] INJECT 20 [facility] Prt-Insulin 9-14 UNITS ity of Aspart 00:00: UNDER THE [place] (NOVOLOG 00 SKIN 2 Medical MIX 70-30) (TWO) Branch 100 unit/mL TIMES (70-30) DAILY injection BEFORE BREAKFAST AND DINNER. Insulin Asp 0 Yes [id number] INJECT 20 [facility] Prt-Insulin 9-14 UNITS ity of Aspart 00:00: UNDER THE [place] (NOVOLOG 00 SKIN 2 Medical MIX 70-30) (TWO) Branch 100 unit/mL TIMES (70-30) DAILY injection BEFORE BREAKFAST AND DINNER. Insulin Asp 2021-0 Yes [id number] INJECT 20 [facility] Prt-Insulin 9-14 UNITS ity of Aspart 00:00: UNDER THE [place] (NOVOLOG 00 SKIN 2 Medical MIX 70-30) (TWO) Branch 100 unit/mL TIMES (70-30) DAILY injection BEFORE BREAKFAST AND DINNER. Insulin Asp 2021- Yes [id number] INJECT 20 [facility] Prt-Insulin 9-14 UNITS ity of Aspart 00:00: UNDER THE [place] (NOVOLOG 00 SKIN 2 Medical MIX 70-30) (TWO) Branch 100 unit/mL TIMES (70-30) DAILY injection BEFORE BREAKFAST AND DINNER. Insulin Asp 2021-0 Yes [id number] INJECT 20 [facility] Prt-Insulin 9-14 UNITS ity of Aspart 00:00: UNDER THE [place] (NOVOLOG 00 SKIN 2 Medical MIX 70-30) (TWO) Branch 100 unit/mL TIMES (70-30) DAILY injection BEFORE BREAKFAST AND DINNER. Insulin Asp 2021-0 Yes [id number] INJECT 20 [facility] Prt-Insulin 9-14 UNITS ity of Aspart 00:00: UNDER THE [place] (NOVOLOG 00 SKIN 2 Medical MIX 70-30) (TWO) Branch 100 unit/mL TIMES (70-30) DAILY injection BEFORE BREAKFAST AND DINNER. Insulin Asp 2021-0 Yes [id number] INJECT 20 [facility] Prt-Insulin 9-14 UNITS ity of Aspart 00:00: UNDER THE [place] (NOVOLOG 00 SKIN 2 Medical MIX 70-30) (TWO) Branch 100 unit/mL TIMES (70-30) DAILY injection BEFORE BREAKFAST AND DINNER. Insulin Asp 2021-0 Yes [id number] INJECT 20 [facility] Prt-Insulin 9-14 UNITS ity of Aspart 00:00: UNDER THE [place] (NOVOLOG 00 SKIN 2 Medical MIX 70-30) (TWO) Branch 100 unit/mL TIMES (70-30) DAILY injection BEFORE BREAKFAST AND DINNER. Insulin Asp 2021-0 Yes [id number] INJECT 20 [facility] Prt-Insulin 9-14 UNITS ity of Aspart 00:00: UNDER THE [place] (NOVOLOG 00 SKIN 2 Medical MIX 70-30) (TWO) Branch 100 unit/mL TIMES (70-30) DAILY injection BEFORE BREAKFAST AND DINNER. Insulin Asp 2021-0 Yes [id number] INJECT 20 [facility] Prt-Insulin 9-14 UNITS ity of Aspart 00:00: UNDER THE [place] (NOVOLOG 00 SKIN 2 Medical MIX 70-30) (TWO) Branch 100 unit/mL TIMES (70-30) DAILY injection BEFORE BREAKFAST AND DINNER. Insulin Asp 2021-0 Yes [id number] INJECT 20 [facility] Prt-Insulin 9-14 UNITS ity of Aspart 00:00: UNDER THE [place] (NOVOLOG 00 SKIN 2 Medical MIX 70-30) (TWO) Branch 100 unit/mL TIMES (70-30) DAILY injection BEFORE BREAKFAST AND DINNER. Insulin Asp 2021-0 Yes [id number] INJECT 20 [facility] Prt-Insulin 9-14 UNITS ity of Aspart 00:00: UNDER THE [place] (NOVOLOG 00 SKIN 2 Medical MIX 70-30) (TWO) Branch 100 unit/mL TIMES (70-30) DAILY injection BEFORE BREAKFAST AND DINNER. Insulin Asp 0 Yes [id number] INJECT 20 [facility] Prt-Insulin 9-14 UNITS ity of Aspart 00:00: UNDER THE [place] (NOVOLOG 00 SKIN 2 Medical MIX 70-30) (TWO) Branch 100 unit/mL TIMES (70-30) DAILY injection BEFORE BREAKFAST AND DINNER. Insulin Asp 0 Yes [id number] INJECT 20 [facility] Prt-Insulin 9-14 UNITS ity of Aspart 00:00: UNDER THE [place] (NOVOLOG 00 SKIN 2 Medical MIX 70-30) (TWO) Branch 100 unit/mL TIMES (70-30) DAILY injection BEFORE BREAKFAST AND DINNER. Insulin Asp Yes [id number] INJECT 20 [facility] Prt-Insulin 9-14 UNITS ity of Aspart 00:00: UNDER THE [place] (NOVOLOG 00 SKIN 2 Medical MIX 70-30) (TWO) Branch 100 unit/mL TIMES (70-30) DAILY injection BEFORE BREAKFAST AND DINNER. Insulin Asp 0 Yes [id number] INJECT 20 [facility] Prt-Insulin 9-14 UNITS ity of Aspart 00:00: UNDER THE [place] (NOVOLOG 00 SKIN 2 Medical MIX 70-30) (TWO) Branch 100 unit/mL TIMES (70-30) DAILY injection BEFORE BREAKFAST AND DINNER. Insulin Asp Yes [id number] INJECT 20 [facility] Prt-Insulin 9-14 UNITS ity of Aspart 00:00: UNDER THE [place] (NOVOLOG 00 SKIN 2 Medical MIX 70-30) (TWO) Branch 100 unit/mL TIMES (70-30) DAILY injection BEFORE BREAKFAST AND DINNER. Insulin Asp 0 Yes [id number] INJECT 20 [facility] Prt-Insulin 9-14 UNITS ity of Aspart 00:00: UNDER THE [place] (NOVOLOG 00 SKIN 2 Medical MIX 70-30) (TWO) Branch 100 unit/mL TIMES (70-30) DAILY injection BEFORE BREAKFAST AND DINNER. Insulin Asp 0 2023- No [id number] INJECT 20 [facility] Prt-Insulin 9-14 03-30 UNITS ity of Aspart 00:00: 00:00 UNDER THE [place] (NOVOLOG 00 :00 SKIN 2 Medical MIX 70-30) (TWO) Branch 100 unit/mL TIMES (70-30) DAILY injection BEFORE BREAKFAST AND DINNER. gabapentin 2021- No [id number] 300mg Take 1 [facility] 300 mg 802-24 capsule by [facility] capsule 00:00: 04:59 mouth in [place] 00 :00 the Medical morning Branch and 1 capsule at noon and 1 capsule in the evening. Do all this for 21 days. gabapentin 2021- No [id number] 300mg Take 1 [facility] 300 mg 802-24 capsule by [facility] of capsule 00:00: 04:59 mouth in [place] 00 :00 the Medical morning Branch and 1 capsule at noon and 1 capsule in the evening. Do all this for 21 days. blood sugar Yes [id number] USE TWICE [facility] diagnostic 8-04 DAILY FOR [facility] of (ASCENSIA 00:00: BLOOD [place] MICROFILL) 00 GLUCOSE Medica l strip MONITORING Branch FINASTERIDE Yes [id number] TAKE 1 [facility] 5 mg tablet 8-04 TABLET BY ity of 00:00: MOUTH [place] 00 EVERY DAY Medical Branch blood sugar Yes [id number] USE TWICE [facility] diagnostic 8-04 DAILY FOR [facility] of (ASCENSIA 00:00: BLOOD [place] MICROFILL) 00 GLUCOSE [facility] strip MONITORING Branch FINASTERIDE Yes [id number] TAKE 1 [facility] 5 mg tablet 8-04 TABLET BY [facility] of 00:00: MOUTH [place] 00 EVERY DAY Medical Branch blood sugar Yes [id number] USE TWICE [facility] diagnostic 8-04 DAILY FOR [facility] of (ASCENSIA 00:00: BLOOD [place] MICROFILL) 00 GLUCOSE [facility] strip MONITORING Branch FINASTERIDE Yes [id number] TAKE 1 [facility] 5 mg tablet 8-04 TABLET BY [facility] of 00:00: MOUTH [place] 00 EVERY DAY Medical Branch blood sugar Yes [id number] USE TWICE [facility] diagnostic 8-04 DAILY FOR [facility] of (ASCENSIA 00:00: BLOOD [place] MICROFILL) 00 GLUCOSE [facility] strip MONITORING Branch FINASTERIDE Yes [id number] TAKE 1 [facility] 5 mg tablet 8-04 TABLET BY ity of 00:00: MOUTH [place] 00 EVERY DAY Medical Branch blood sugar Yes [id number] USE TWICE [facility] diagnostic 8-04 DAILY FOR [facility]y of (ASCENSIA 00:00: BLOOD [place] MICROFILL) 00 GLUCOSE [facility] strip MONITORING Branch FINASTERIDE Yes [id number] TAKE 1 [facility] 5 mg tablet 8-04 TABLET BY [facility] of 00:00: MOUTH [place] 00 EVERY DAY Medical Branch blood sugar Yes [id number] USE TWICE [facility] diagnostic 8-04 DAILY FOR [facility] of (ASCENSIA 00:00: BLOOD [place] MICROFILL) 00 GLUCOSE [facility] strip MONITORING Branch FINASTERIDE Yes [id number] TAKE 1 [facility] 5 mg tablet 8-04 TABLET BY [facility] of 00:00: MOUTH [place] 00 EVERY DAY Medical Branch blood sugar Yes [id number] USE TWICE [facility] diagnostic 8-04 DAILY FOR [facility]y of (ASCENSIA 00:00: BLOOD [place] MICROFILL) 00 GLUCOSE [facility] strip MONITORING Branch FINASTERIDE Yes [id number] TAKE 1 [facility] 5 mg tablet 8-04 TABLET BY [facility] of 00:00: MOUTH [place] 00 EVERY DAY Medical Branch blood sugar Yes [id number] USE TWICE [facility] diagnostic 8-04 DAILY FOR [facility] of (ASCENSIA 00:00: BLOOD [place] MICROFILL) 00 GLUCOSE [facility] strip MONITORING Branch FINASTERIDE Yes [id number] TAKE 1 [facility] 5 mg tablet 8-04 TABLET BY [facility] of 00:00: MOUTH [place] 00 EVERY DAY Medical Branch blood sugar Yes [id number] USE TWICE [facility] diagnostic 8-04 DAILY FOR [facility] of (ASCENSIA 00:00: BLOOD [place] MICROFILL) 00 GLUCOSE [facility] strip MONITORING Branch FINASTERIDE Yes [id number] TAKE 1 [facility] 5 mg tablet 8-04 TABLET BY [facility] of 00:00: MOUTH [place] 00 EVERY DAY Medical Branch blood sugar Yes [id number] USE TWICE [facility] diagnostic 8-04 DAILY FOR [facility]y of (ASCENSIA 00:00: BLOOD [place] MICROFILL) 00 GLUCOSE [facility] strip MONITORING Branch FINASTERIDE Yes [id number] TAKE 1 [facility] 5 mg tablet 8-04 TABLET BY ity of 00:00: MOUTH [place] 00 EVERY DAY Medical Branch blood sugar Yes [id number] USE TWICE [facility] diagnostic 8-04 DAILY FOR [facility]y of (ASCENSIA 00:00: BLOOD [place] MICROFILL) 00 GLUCOSE [facility] strip MONITORING Branch FINASTERIDE Yes [id number] TAKE 1 [facility] 5 mg tablet 8-04 TABLET BY it[facility] of 00:00: MOUTH [place] 00 EVERY DAY Medical Branch blood sugar Yes [id number] USE TWICE [facility] diagnostic 8-04 DAILY FOR [facility] of (ASCENSIA 00:00: BLOOD [place] MICROFILL) 00 GLUCOSE [facility] strip MONITORING Branch FINASTERIDE Yes [id number] TAKE 1 [facility] 5 mg tablet 8-04 TABLET BY it[facility] of 00:00: MOUTH [place] 00 EVERY DAY Medical Branch blood sugar Yes [id number] USE TWICE [facility] diagnostic 8-04 DAILY FOR ity of (ASCENSIA 00:00: BLOOD [place] MICROFILL) 00 GLUCOSE Med[facility] strip MONITORING Branch FINASTERIDE Yes [id number] TAKE 1 [facility] 5 mg tablet 8-04 TABLET BY it[facility] of 00:00: MOUTH [place] 00 EVERY DAY Medical Branch blood sugar Yes [id number] USE TWICE [facility] diagnostic 8-04 DAILY FOR ity of (ASCENSIA 00:00: BLOOD [place] MICROFILL) 00 GLUCOSE [facility] strip MONITORING Branch FINASTERIDE Yes [id number] TAKE 1 [facility] 5 mg tablet 8-04 TABLET BY it[facility] of 00:00: MOUTH [place] 00 EVERY DAY Medical Branch blood sugar 0 Yes [id number] USE TWICE [facility] diagnostic 8-04 DAILY FOR [facility]y of (ASCENSIA 00:00: BLOOD [place] MICROFILL) 00 GLUCOSE Med[facility] strip MONITORING Branch FINASTERIDE Yes [id number] TAKE 1 [facility] 5 mg tablet 8-04 TABLET BY ity of 00:00: MOUTH [place] 00 EVERY DAY Medical Branch blood sugar 0 Yes [id number] USE TWICE [facility] diagnostic 8-04 DAILY FOR [facility]y of (ASCENSIA 00:00: BLOOD [place] MICROFILL) 00 GLUCOSE [facility] strip MONITORING Branch FINASTERIDE 0 Yes [id number] TAKE 1 [facility] 5 mg tablet 8-04 TABLET BY ity of 00:00: MOUTH [place] 00 EVERY DAY Medical Branch blood sugar Yes [id number] USE TWICE [facility] diagnostic 8-04 DAILY FOR [facility]y of (ASCENSIA 00:00: BLOOD [place] MICROFILL) 00 GLUCOSE [facility] strip MONITORING Branch FINASTERIDE 0 Yes [id number] TAKE 1 [facility] 5 mg tablet 8-04 TABLET BY [facility] of 00:00: MOUTH [place] 00 EVERY DAY Medical Branch blood sugar 0 Yes [id number] USE TWICE [facility] diagnostic 8-04 DAILY FOR ity of (ASCENSIA 00:00: BLOOD [place] MICROFILL) 00 GLUCOSE [facility] strip MONITORING Branch FINASTERIDE 0 Yes [id number] TAKE 1 [facility] 5 mg tablet 8-04 TABLET BY it[facility] of 00:00: MOUTH [place] 00 EVERY DAY Medical Branch blood sugar 0 Yes [id number] USE TWICE [facility] diagnostic 8-04 DAILY FOR ity of (ASCENSIA 00:00: BLOOD [place] MICROFILL) 00 GLUCOSE Medica [facility] strip MONITORING Branch FINASTERIDE Yes [id number] TAKE 1 [facility] 5 mg tablet 8-04 TABLET BY ity of 00:00: MOUTH [place] 00 EVERY DAY Medical Branch blood sugar Yes [id number] USE TWICE [facility] diagnostic 8-04 DAILY FOR [facility]y of (ASCENSIA 00:00: BLOOD [place] MICROFILL) 00 GLUCOSE Med[facility] strip MONITORING Branch FINASTERIDE Yes [id number] TAKE 1 [facility] 5 mg tablet 8-04 TABLET BY [facility] of 00:00: MOUTH [place] 00 EVERY DAY Medical Branch blood sugar 0 Yes [id number] USE TWICE [facility] diagnostic 8-04 DAILY FOR [facility]y of (ASCENSIA 00:00: BLOOD [place] MICROFILL) 00 GLUCOSE Med[facility] strip MONITORING Branch FINASTERIDE 0 Yes [id number] TAKE 1 [facility] 5 mg tablet 8-04 TABLET BY it[facility] of 00:00: MOUTH [place] 00 EVERY DAY Medical Branch blood sugar 0 Yes [id number] USE TWICE [facility] diagnostic 8-04 DAILY FOR ity of (ASCENSIA 00:00: BLOOD [place] MICROFILL) 00 GLUCOSE Med[facility] strip MONITORING Branch FINASTERIDE 0 Yes [id number] TAKE 1 [facility] 5 mg tablet 8-04 TABLET BY ity of 00:00: MOUTH [place] 00 EVERY DAY Medical Branch blood sugar 0 Yes [id number] USE TWICE [facility] diagnostic 8-04 DAILY FOR ity of (ASCENSIA 00:00: BLOOD [place] MICROFILL) 00 GLUCOSE Medica l strip MONITORING Branch FINASTERIDE Yes [id number] TAKE 1 [facility] 5 mg tablet 8-04 TABLET BY ity of 00:00: MOUTH [place] 00 EVERY DAY Medical Branch blood sugar Yes [id number] USE TWICE [facility] diagnostic 8-04 DAILY FOR [facility]y of (ASCENSIA 00:00: BLOOD [place] MICROFILL) 00 GLUCOSE Med[facility] strip MONITORING Branch FINASTERIDE Yes [id number] TAKE 1 [facility] 5 mg tablet 8-04 TABLET BY [facility] of 00:00: MOUTH [place] 00 EVERY DAY Medical Branch blood sugar Yes [id number] USE TWICE [facility] diagnostic 8-04 DAILY FOR [facility]y of (ASCENSIA 00:00: BLOOD [place] MICROFILL) 00 GLUCOSE Med[facility] strip MONITORING Branch FINASTERIDE Yes [id number] TAKE 1 [facility] 5 mg tablet 8-04 TABLET BY it[facility] of 00:00: MOUTH [place] 00 EVERY DAY Medical Branch blood sugar Yes [id number] USE TWICE [facility] diagnostic 8-04 DAILY FOR [facility]y of (ASCENSIA 00:00: BLOOD [place] MICROFILL) 00 GLUCOSE Medica [facility] strip MONITORING Branch FINASTERIDE Yes [id number] TAKE 1 [facility] 5 mg tablet 8-04 TABLET BY [facility] of 00:00: MOUTH [place] 00 EVERY DAY Medical Branch blood sugar Yes [id number] USE TWICE [facility] diagnostic 8-04 DAILY FOR ity of (ASCENSIA 00:00: BLOOD [place] MICROFILL) 00 GLUCOSE Medica [facility] strip MONITORING Branch FINASTERIDE Yes [id number] TAKE 1 [facility] 5 mg tablet 8-04 TABLET BY ity of 00:00: MOUTH [place] 00 EVERY DAY Medical Branch blood sugar Yes [id number] USE TWICE [facility] diagnostic 8-04 DAILY FOR [facility] of (ASCENSIA 00:00: BLOOD [place] MICROFILL) 00 GLUCOSE Medica l strip MONITORING Branch FINASTERIDE Yes [id number] TAKE 1 [facility] 5 mg tablet 8-04 TABLET BY ity of 00:00: MOUTH [place] 00 EVERY DAY Medical Branch blood sugar Yes [id number] USE TWICE [facility] diagnostic 8-04 DAILY FOR ity of (ASCENSIA 00:00: BLOOD [place] MICROFILL) 00 GLUCOSE Medica l strip MONITORING Branch FINASTERIDE Yes [id number] TAKE 1 [facility] 5 mg tablet 8-04 TABLET BY ity of 00:00: MOUTH [place] 00 EVERY DAY Medical Branch blood sugar 2021-0 Yes [id number] USE TWICE [facility] diagnostic 8-04 DAILY FOR [facility]y of (ASCENSIA 00:00: BLOOD [place] MICROFILL) 00 GLUCOSE Medica l strip MONITORING Branch FINASTERIDE 2021-0 Yes [id number] TAKE 1 [facility] 5 mg tablet 8-04 TABLET BY ity of 00:00: MOUTH [place] 00 EVERY DAY Medical Branch blood sugar 2021-0 Yes [id number] USE TWICE [facility] diagnostic 8-04 DAILY FOR ity of (ASCENSIA 00:00: BLOOD [place] MICROFILL) 00 GLUCOSE Medica l strip MONITORING Branch FINASTERIDE 0 Yes [id number] TAKE 1 [facility] 5 mg tablet 8-04 TABLET BY ity of 00:00: MOUTH [place] 00 EVERY DAY Medical Branch FINASTERIDE 2021-0 Yes [id number] TAKE 1 [facility] 5 mg tablet 8-04 TABLET BY ity of 00:00: MOUTH [place] 00 EVERY DAY Medical Branch FINASTERIDE 2021-0 Yes [id number] TAKE 1 [facility] 5 mg tablet 8-04 TABLET BY ity of 00:00: MOUTH [place] 00 EVERY DAY Medical Branch FINASTERIDE 2021-0 Yes [id number] TAKE 1 [facility] 5 mg tablet 8-04 TABLET BY ity of 00:00: MOUTH [place] 00 EVERY DAY Medical Branch FINASTERIDE 2021-0 Yes [id number] TAKE 1 [facility] 5 mg tablet 8-04 TABLET BY ity of 00:00: MOUTH [place] 00 EVERY DAY Medical Branch FINASTERIDE 2021-0 Yes [id number] TAKE 1 [facility] 5 mg tablet 8-04 TABLET BY ity of 00:00: MOUTH [place] 00 EVERY DAY Medical Branch FINASTERIDE 2021-0 Yes [id number] TAKE 1 [facility] 5 mg tablet 8-04 TABLET BY ity of 00:00: MOUTH [place] 00 EVERY DAY Medical Branch FINASTERIDE 2021-0 Yes [id number] TAKE 1 [facility] 5 mg tablet 8-04 TABLET BY ity of 00:00: MOUTH [place] 00 EVERY DAY Medical Branch FINASTERIDE 2021-0 Yes [id number] TAKE 1 [facility] 5 mg tablet 8-04 TABLET BY ity of 00:00: MOUTH [place] 00 EVERY DAY Medical Branch FINASTERIDE 2021-0 Yes [id number] TAKE 1 [facility] 5 mg tablet 8-04 TABLET BY ity of 00:00: MOUTH [place] 00 EVERY DAY Medical Branch FINASTERIDE 2022-0 Yes [id number] TAKE 1 [facility] 5 mg tablet 8-04 TABLET BY ity of 00:00: MOUTH [place] 00 EVERY DAY Medical Branch FINASTERIDE 2022-0 Yes [id number] TAKE 1 [facility] 5 mg tablet 8-04 TABLET BY ity of 00:00: MOUTH [place] 00 EVERY DAY Medical Branch FINASTERIDE 2-0 Yes [id number] TAKE 1 [facility] 5 mg tablet 8-04 TABLET BY ity of 00:00: MOUTH [place] 00 EVERY DAY Medical Branch FINASTERIDE 2022-0 Yes [id number] TAKE 1 [facility] 5 mg tablet 8-04 TABLET BY ity of 00:00: MOUTH [place] 00 EVERY DAY Medical Branch FINASTERIDE 2-0 Yes [id number] TAKE 1 [facility] 5 mg tablet 8-04 TABLET BY ity of 00:00: MOUTH [place] 00 EVERY DAY Medical Branch FINASTERIDE 2-0 Yes [id number] TAKE 1 [facility] 5 mg tablet 8-04 TABLET BY [facility]y of 00:00: MOUTH [place] 00 EVERY DAY Medical Branch FINASTERIDE 2-0 Yes [id number] TAKE 1 [facility] 5 mg tablet 8-04 TABLET BY ity of 00:00: MOUTH [place] 00 EVERY DAY Medical Branch FINASTERIDE 2-0 Yes [id number] TAKE 1 [facility] 5 mg tablet 8-04 TABLET BY ity of 00:00: MOUTH [place] 00 EVERY DAY Medical Branch FINASTERIDE 2022-0 Yes [id number] TAKE 1 [facility] 5 mg tablet 8-04 TABLET BY ity of 00:00: MOUTH [place] 00 EVERY DAY Medical Branch FINASTERIDE 2022-0 Yes [id number] TAKE 1 [facility] 5 mg tablet 8-04 TABLET BY ity of 00:00: MOUTH [place] 00 EVERY DAY Medical Branch FINASTERIDE 2022-0 Yes [id number] TAKE 1 [facility] 5 mg tablet 8-04 TABLET BY ity of 00:00: MOUTH [place] 00 EVERY DAY Medical Branch FINASTERIDE 2022-0 Yes [id number] TAKE 1 [facility] 5 mg tablet 8-04 TABLET BY ity of 00:00: MOUTH [place] 00 EVERY DAY Medical Branch FINASTERIDE 2-0 Yes [id number] TAKE 1 [facility] 5 mg tablet 8-04 TABLET BY ity of 00:00: MOUTH [place] 00 EVERY DAY Medical Branch FINASTERIDE 2-0 Yes [id number] TAKE 1 [facility] 5 mg tablet 8-04 TABLET BY ity of 00:00: MOUTH [place] 00 EVERY DAY Medical Branch FINASTERIDE 2022-0 Yes [id number] TAKE 1 [facility] 5 mg tablet 8-04 TABLET BY ity of 00:00: MOUTH [place] 00 EVERY DAY Medical Branch FINASTERIDE 2022-0 Yes [id number] TAKE 1 [facility] 5 mg tablet 8-04 TABLET BY ity of 00:00: MOUTH [place] 00 EVERY DAY Medical Branch FINASTERIDE 2022-0 Yes [id number] TAKE 1 [facility] 5 mg tablet 8-04 TABLET BY ity of 00:00: MOUTH [place] 00 EVERY DAY Medical Branch FINASTERIDE 2021-0 Yes [id number] TAKE 1 [facility] 5 mg tablet 8-04 TABLET BY ity of 00:00: MOUTH [place] 00 EVERY DAY Medical Branch FINASTERIDE 2022-0 Yes [id number] TAKE 1 [facility] 5 mg tablet 8-04 TABLET BY ity of 00:00: MOUTH [place] 00 EVERY DAY Medical Branch FINASTERIDE 2-0 Yes [id number] TAKE 1 [facility] 5 mg tablet 8-04 TABLET BY ity of 00:00: MOUTH [place] 00 EVERY DAY Medical Branch FINASTERIDE 2-0 Yes [id number] TAKE 1 [facility] 5 mg tablet 8-04 TABLET BY ity of 00:00: MOUTH [place] 00 EVERY DAY Medical Branch FINASTERIDE 2022-0 Yes [id number] TAKE 1 [facility] 5 mg tablet 8-04 TABLET BY ity of 00:00: MOUTH [place] 00 EVERY DAY Medical Branch FINASTERIDE 2022-0 Yes [id number] TAKE 1 [facility] 5 mg tablet 8-04 TABLET BY ity of 00:00: MOUTH [place] 00 EVERY DAY Medical Branch FINASTERIDE 2022-0 Yes [id number] TAKE 1 [facility] 5 mg tablet 8-04 TABLET BY ity of 00:00: MOUTH [place] 00 EVERY DAY Medical Branch FINASTERIDE 2-0 Yes [id number] TAKE 1 [facility] 5 mg tablet 8-04 TABLET BY ity of 00:00: MOUTH [place] 00 EVERY DAY Medical Branch FINASTERIDE 2022-0 Yes [id number] TAKE 1 [facility] 5 mg tablet 8-04 TABLET BY ity of 00:00: MOUTH [place] 00 EVERY DAY Medical Branch FINASTERIDE 2-0 Yes [id number] TAKE 1 [facility] 5 mg tablet 8-04 TABLET BY ity of 00:00: MOUTH [place] 00 EVERY DAY Medical Branch FINASTERIDE 0 Yes [id number] TAKE 1 [facility] 5 mg tablet 8-04 TABLET BY ity of 00:00: MOUTH [place] 00 EVERY DAY Medical Branch FINASTERIDE 0 Yes [id number] TAKE 1 [facility] 5 mg tablet 8-04 TABLET BY ity of 00:00: MOUTH [place] 00 EVERY DAY Medical Branch FINASTERIDE 0 Yes [id number] TAKE 1 [facility] 5 mg tablet 8-04 TABLET BY ity of 00:00: MOUTH [place] 00 EVERY DAY Medical Branch blood sugar 0 2023- No [id number] USE TWICE [facility] diagnostic 8-04 03-30 DAILY FOR ity of (ASCENSIA 00:00: 00:00 BLOOD [place] MICROFILL) 00 :00 GLUCOSE Medica l strip MONITORING Branch escitalopra Yes [id number] 20mg Take 2 [facility] m oxalate 7-29 tablets by ity of 10 mg 00:00: mouth in [place] tablet 00 the Medical morning. Branch escitalopra Yes [id number] 20mg Take 2 [facility] m oxalate 7-29 tablets by ity of 10 mg 00:00: mouth in [place] tablet 00 the Medical morning. Branch escitalopra Yes [id number] 20mg Take 2 [facility] m oxalate 7-29 tablets by ity of 10 mg 00:00: mouth in [place] tablet 00 the Medical morning. [place] escitalopra Yes [id number] 20mg Take 2 [facility] m oxalate 7-29 tablets by ity of 10 mg 00:00: mouth in [place] tablet 00 the Medical morning. Branch escitalopra Yes [id number] 20mg Take 2 [facility] m oxalate 7-29 tablets by ity of 10 mg 00:00: mouth in [place] tablet 00 the Medical morning. Branch escitalopra 0 Yes [id number] 20mg Take 2 [facility] m oxalate 7-29 tablets by ity of 10 mg 00:00: mouth in [place] tablet 00 the Medical morning. Branch escitalopra Yes [id number] 20mg Take 2 [facility] m oxalate 7-29 tablets by ity of 10 mg 00:00: mouth in [place] tablet 00 the Medical morning. Branch escitalopra 2022-0 Yes [id number] 20mg Take 2 [facility] m oxalate 7-29 tablets by ity of 10 mg 00:00: mouth in [place] tablet 00 the Medical morning. Branch escitalopra 2021-0 Yes [id number] 20mg Take 2 [facility] m oxalate 7-29 tablets by ity of 10 mg 00:00: mouth in [place] tablet 00 the Medical morning. Branch escitalopra 2021-0 Yes [id number] 20mg Take 2 [facility] m oxalate 7-29 tablets by ity of 10 mg 00:00: mouth in [place] tablet 00 the Medical morning. Branch escitalopra 2021-0 2022- No [id number] 20mg Take 2 [facility] m oxalate 7-29 11-02 tablets by ity of 10 mg 00:00: 00:00 mouth in [place] tablet 00 :00 the Medical morning. Branch tiZANidine 2021-0 Yes [id number] 4mg Take 1 [facility] n[facility] 4 mg tablet 7-12 tablet by ity of 00:00: mouth 3 00 (three) Medical times Branch daily as needed for Pain (scale 4-6). clotrimazol 2021-0 Yes [id number] Apply to [facility] e-betametha 7-12 area(s) 2 ity of sone 00:00: (two) [place] (LOTRISONE) 00 times Medical cream daily. Branch tiZANidine 2021-0 Yes [id number] 4mg Take 1 [facility] nivers 4 mg tablet 7-12 tablet by ity of 00:00: mouth 3 [place] 00 (three) Medical times Branch daily as needed for Pain (scale 4-6). clotrimazol 2021-0 Yes [id number] Apply to [facility] e-betametha 7-12 area(s) 2 ity of sone 00:00: (two) [place] (LOTRISONE) 00 times Medical cream daily. Branch tiZANidine 2021-0 Yes [id number] 4mg Take 1 [facility] nivers 4 mg tablet 7-12 tablet by ity of 00:00: mouth 3 [place] 00 (three) Medical times Branch daily as needed for Pain (scale 4-6). clotrimazol 2021-0 Yes [id number] Apply to [facility] e-betametha 7-12 area(s) 2 ity of sone 00:00: (two) [place] (LOTRISONE) 00 times Medical cream daily. Branch tiZANidine 2022-0 Yes [id number] 4mg Take 1 [facility] nivers 4 mg tablet 7-12 tablet by ity of 00:00: mouth 3 [place] 00 (three) Medical times Branch daily as needed for Pain (scale 4-6). clotrimazol 2022-0 Yes [id number] Apply to [facility] e-betametha 7-12 area(s) 2 ity of sone 00:00: (two) [place] (LOTRISONE) 00 times Medical cream daily. Branch tiZANidine 2022-0 Yes [id number] 4mg Take 1 [facility] nivers 4 mg tablet 7-12 tablet by ity of 00:00: mouth 3 00 (three) Medical times Branch daily as needed for Pain (scale 4-6). clotrimazol 2022-0 Yes [id number] Apply to [facility] e-betametha 7-12 area(s) 2 ity of sone 00:00: (two) [place] (LOTRISONE) 00 times Medical cream daily. Branch tiZANidine 2022-0 Yes [id number] 4mg Take 1 [facility] nivers 4 mg tablet 7-12 tablet by ity of 00:00: mouth 3 00 (three) Medical times Branch daily as needed for Pain (scale 4-6). clotrimazol 2022-0 Yes [id number] Apply to [facility] e-betametha 7-12 area(s) 2 ity of sone 00:00: (two) [place] (LOTRISONE) 00 times Medical cream daily. Branch tiZANidine 2022-0 Yes [id number] 4mg Take 1 [facility] nivers 4 mg tablet 7-12 tablet by ity of 00:00: mouth 3 00 (three) Medical times Branch daily as needed for Pain (scale 4-6). clotrimazol 2022-0 Yes [id number] Apply to [facility] e-betametha 7-12 area(s) 2 ity of sone 00:00: (two) [place] (LOTRISONE) 00 times Medical cream daily. Branch tiZANidine 2022-0 Yes [id number] 4mg Take 1 [facility] nivers 4 mg tablet 7-12 tablet by ity of 00:00: mouth 3 00 (three) Medical times Branch daily as needed for Pain (scale 4-6). clotrimazol 2022-0 Yes [id number] Apply to [facility] e-betametha 7-12 area(s) 2 ity of sone 00:00: (two) [place] (LOTRISONE) 00 times Medical cream daily. Branch tiZANidine 2022-0 Yes [id number] 4mg Take 1 [facility] nivers 4 mg tablet 7-12 tablet by ity of 00:00: mouth 3 00 (three) Medical times Branch daily as needed for Pain (scale 4-6). clotrimazol 2022-0 Yes [id number] Apply to [facility] e-betametha 7-12 area(s) 2 ity of sone 00:00: (two) [place] (LOTRISONE) 00 times Medical cream daily. Branch tiZANidine 2022-0 Yes [id number] 4mg Take 1 [facility] nivers 4 mg tablet 7-12 tablet by ity of 00:00: mouth 3 00 (three) Medical times Branch daily as needed for Pain (scale 4-6). clotrimazol 2022-0 Yes [id number] Apply to [facility] e-betametha 7-12 area(s) 2 ity of sone 00:00: (two) [place] (LOTRISONE) 00 times Medical cream daily. Branch tiZANidine 2022-0 Yes [id number] 4mg Take 1 [facility] nivers 4 mg tablet 7-12 tablet by ity of 00:00: mouth 3 00 (three) Medical times Branch daily as needed for Pain (scale 4-6). clotrimazol 2022-0 Yes [id number] Apply to [facility] e-betametha 7-12 area(s) 2 ity of sone 00:00: (two) [place] (LOTRISONE) 00 times Medical cream daily. Branch tiZANidine 2022-0 Yes [id number] 4mg Take 1 [facility] nivers 4 mg tablet 7-12 tablet by ity of 00:00: mouth 3 [place] 00 (three) Medical times Branch daily as needed for Pain (scale 4-6). clotrimazol 2022-0 Yes [id number] Apply to [facility] e-betametha 7-12 area(s) 2 ity of sone 00:00: (two) [place] (LOTRISONE) 00 times Medical cream daily. Branch tiZANidine 2022-0 Yes [id number] 4mg Take 1 [facility] nivers 4 mg tablet 7-12 tablet by ity of 00:00: mouth 3 [place] 00 (three) Medical times Branch daily as needed for Pain (scale 4-6). clotrimazol 2022-0 Yes [id number] Apply to [facility] e-betametha 7-12 area(s) 2 ity of sone 00:00: (two) [place] (LOTRISONE) 00 times Medical cream daily. Branch tiZANidine 2022-0 Yes [id number] 4mg Take 1 [facility] nivers 4 mg tablet 7-12 tablet by ity of 00:00: mouth 3 00 (three) Medical times Branch daily as needed for Pain (scale 4-6). clotrimazol 2022-0 Yes [id number] Apply to [facility] e-betametha 7-12 area(s) 2 ity of sone 00:00: (two) [place] (LOTRISONE) 00 times Medical cream daily. Branch tiZANidine 2022-0 Yes [id number] 4mg Take 1 [facility] nivers 4 mg tablet 7-12 tablet by ity of 00:00: mouth 3 00 (three) Medical times Branch daily as needed for Pain (scale 4-6). clotrimazol 2022-0 Yes [id number] Apply to [facility] e-betametha 7-12 area(s) 2 ity of sone 00:00: (two) [place] (LOTRISONE) 00 times Medical cream daily. Branch tiZANidine 2022-0 Yes [id number] 4mg Take 1 U nivers 4 mg tablet 7-12 tablet by ity of 00:00: mouth 3 00 (three) Medical times Branch daily as needed for Pain (scale 4-6). clotrimazol 2022-0 Yes [id number] Apply to [facility] e-betametha 7-12 area(s) 2 ity of sone 00:00: (two) [place] (LOTRISONE) 00 times Medical cream daily. Branch tiZANidine 2022-0 Yes [id number] 4mg Take 1 [facility] nivers 4 mg tablet 7-12 tablet by ity of 00:00: mouth 3 [place] 00 (three) Medical times Branch daily as needed for Pain (scale 4-6). clotrimazol 2022-0 Yes [id number] Apply to [facility] e-betametha 7-12 area(s) 2 ity of sone 00:00: (two) [place] (LOTRISONE) 00 times Medical cream daily. Branch tiZANidine 2022-0 Yes [id number] 4mg Take 1 [facility] nivers 4 mg tablet 7-12 tablet by ity of 00:00: mouth 3 00 (three) Medical times Branch daily as needed for Pain (scale 4-6). clotrimazol 2022-0 Yes [id number] Apply to [facility] e-betametha 7-12 area(s) 2 ity of sone 00:00: (two) [place] (LOTRISONE) 00 times Medical cream daily. Branch tiZANidine 2022-0 Yes [id number] 4mg Take 1 [facility] nivers 4 mg tablet 7-12 tablet by ity of 00:00: mouth 3 00 (three) Medical times Branch daily as needed for Pain (scale 4-6). clotrimazol 2022-0 Yes [id number] Apply to [facility] e-betametha 7-12 area(s) 2 ity of sone 00:00: (two) [place] (LOTRISONE) 00 times Medical cream daily. Branch tiZANidine 2022-0 Yes [id number] 4mg Take 1 [facility] nivers 4 mg tablet 7-12 tablet by ity of 00:00: mouth 3 00 (three) Medical times Branch daily as needed for Pain (scale 4-6). clotrimazol 2022-0 Yes [id number] Apply to [facility] e-betametha 7-12 area(s) 2 ity of sone 00:00: (two) [place] (LOTRISONE) 00 times Medical cream daily. Branch tiZANidine 2022-0 Yes [id number] 4mg Take 1 [facility] nivers 4 mg tablet 7-12 tablet by ity of 00:00: mouth 3 00 (three) Medical times Branch daily as needed for Pain (scale 4-6). clotrimazol 2022-0 Yes [id number] Apply to [facility] e-betametha 7-12 area(s) 2 ity of sone 00:00: (two) [place] (LOTRISONE) 00 times Medical cream daily. Branch tiZANidine 2022-0 Yes [id number] 4mg Take 1 [facility] nivers 4 mg tablet 7-12 tablet by ity of 00:00: mouth 3 [place] 00 (three) Medical times Branch daily as needed for Pain (scale 4-6). clotrimazol 2022-0 Yes [id number] Apply to [facility] e-betametha 7-12 area(s) 2 ity of sone 00:00: (two) [place] (LOTRISONE) 00 times Medical cream daily. Branch tiZANidine 2022-0 Yes [id number] 4mg Take 1 [facility] nivers 4 mg tablet 7-12 tablet by ity of 00:00: mouth 3 00 (three) Medical times Branch daily as needed for Pain (scale 4-6). clotrimazol 2022-0 Yes [id number] Apply to [facility] e-betametha 7-12 area(s) 2 ity of sone 00:00: (two) [place] (LOTRISONE) 00 times Medical cream daily. Branch tiZANidine 2022-0 Yes [id number] 4mg Take 1 [facility] nivers 4 mg tablet 7-12 tablet by ity of 00:00: mouth 3 00 (three) Medical times Branch daily as needed for Pain (scale 4-6). clotrimazol 2022-0 Yes [id number] Apply to [facility] e-betametha 7-12 area(s) 2 ity of sone 00:00: (two) [place] (LOTRISONE) 00 times Medical cream daily. Branch tiZANidine 2022-0 Yes [id number] 4mg Take 1 [facility] nivers 4 mg tablet 7-12 tablet by ity of 00:00: mouth 3 00 (three) Medical times Branch daily as needed for Pain (scale 4-6). clotrimazol 2022-0 Yes [id number] Apply to [facility] e-betametha 7-12 area(s) 2 ity of sone 00:00: (two) [place] (LOTRISONE) 00 times Medical cream daily. Branch tiZANidine 2022-0 Yes [id number] 4mg Take 1 [facility] nivers 4 mg tablet 7-12 tablet by ity of 00:00: mouth 3 [place] 00 (three) Medical times Branch daily as needed for Pain (scale 4-6). clotrimazol 2022-0 Yes [id number] Apply to [facility] e-betametha 7-12 area(s) 2 ity of sone 00:00: (two) [place] (LOTRISONE) 00 times Medical cream daily. Branch tiZANidine 2022-0 Yes [id number] 4mg Take 1 [facility] nivers 4 mg tablet 7-12 tablet by ity of 00:00: mouth 3 00 (three) Medical times Branch daily as needed for Pain (scale 4-6). clotrimazol 2022-0 Yes [id number] Apply to [facility] e-betametha 7-12 area(s) 2 ity of sone 00:00: (two) [place] (LOTRISONE) 00 times Medical cream daily. Branch tiZANidine 2022-0 Yes [id number] 4mg Take 1 [facility] nivers 4 mg tablet 7-12 tablet by ity of 00:00: mouth 3 00 (three) Medical times Branch daily as needed for Pain (scale 4-6). clotrimazol 2022-0 Yes [id number] Apply to [facility] e-betametha 7-12 area(s) 2 ity of sone 00:00: (two) [place] (LOTRISONE) 00 times Medical cream daily. Branch tiZANidine 2022-0 Yes [id number] 4mg Take 1 [facility] nivers 4 mg tablet 7-12 tablet by ity of 00:00: mouth 3 00 (three) Medical times Branch daily as needed for Pain (scale 4-6). clotrimazol 2022-0 Yes [id number] Apply to [facility] e-betametha 7-12 area(s) 2 ity of sone 00:00: (two) [place] (LOTRISONE) 00 times Medical cream daily. Branch tiZANidine 2022-0 Yes [id number] 4mg Take 1 [facility] nivers 4 mg tablet 7-12 tablet by ity of 00:00: mouth 3 00 (three) Medical times Branch daily as needed for Pain (scale 4-6). clotrimazol 2022-0 Yes [id number] Apply to [facility] e-betametha 7-12 area(s) 2 ity of sone 00:00: (two) [place] (LOTRISONE) 00 times Medical cream daily. Branch tiZANidine 2022-0 Yes [id number] 4mg Take 1 [facility] nivers 4 mg tablet 7-12 tablet by ity of 00:00: mouth 3 [place] 00 (three) Medical times Branch daily as needed for Pain (scale 4-6). clotrimazol 2022-0 Yes [id number] Apply to [facility] e-betametha 7-12 area(s) 2 ity of sone 00:00: (two) [place] (LOTRISONE) 00 times Medical cream daily. Branch tiZANidine 2022-0 Yes [id number] 4mg Take 1 [facility] nivers 4 mg tablet 7-12 tablet by ity of 00:00: mouth 3 00 (three) Medical times Branch daily as needed for Pain (scale 4-6). clotrimazol 2022-0 Yes [id number] Apply to [facility] e-betametha 7-12 area(s) 2 ity of sone 00:00: (two) [place] (LOTRISONE) 00 times Medical cream daily. Branch tiZANidine 2022-0 Yes [id number] 4mg Take 1 [facility] nivers 4 mg tablet 7-12 tablet by ity of 00:00: mouth 3 00 (three) Medical times Branch daily as needed for Pain (scale 4-6). clotrimazol 2022-0 Yes [id number] Apply to [facility] e-betametha 7-12 area(s) 2 ity of sone 00:00: (two) [place] (LOTRISONE) 00 times Medical cream daily. Branch tiZANidine 2022-0 Yes [id number] 4mg Take 1 [facility] nivers 4 mg tablet 7-12 tablet by ity of 00:00: mouth 3 00 (three) Medical times Branch daily as needed for Pain (scale 4-6). clotrimazol 2022-0 Yes [id number] Apply to [facility] e-betametha 7-12 area(s) 2 ity of sone 00:00: (two) [place] (LOTRISONE) 00 times Medical cream daily. Branch tiZANidine 2022-0 Yes [id number] 4mg Take 1 [facility] nivers 4 mg tablet 7-12 tablet by ity of 00:00: mouth 3 [place] 00 (three) Medical times Branch daily as needed for Pain (scale 4-6). clotrimazol 2022-0 Yes [id number] Apply to [facility] e-betametha 7-12 area(s) 2 ity of sone 00:00: (two) [place] (LOTRISONE) 00 times Medical cream daily. Branch tiZANidine 2022-0 Yes [id number] 4mg Take 1 [facility] nivers 4 mg tablet 7-12 tablet by ity of 00:00: mouth 3 00 (three) Medical times Branch daily as needed for Pain (scale 4-6). clotrimazol 2022-0 Yes [id number] Apply to [facility] e-betametha 7-12 area(s) 2 ity of sone 00:00: (two) [place] (LOTRISONE) 00 times Medical cream daily. Branch tiZANidine 2022-0 Yes [id number] 4mg Take 1 [facility] nivers 4 mg tablet 7-12 tablet by ity of 00:00: mouth 3 00 (three) Medical times Branch daily as needed for Pain (scale 4-6). clotrimazol 2022-0 Yes [id number] Apply to [facility] e-betametha 7-12 area(s) 2 ity of sone 00:00: (two) [place] (LOTRISONE) 00 times Medical cream daily. Branch tiZANidine 2022-0 Yes [id number] 4mg Take 1 [facility] n[facility] 4 mg tablet 7-12 tablet by ity of 00:00: mouth 3 00 (three) Medical times Branch daily as needed for Pain (scale 4-6). clotrimazol 2022-0 Yes [id number] Apply to [facility] e-betametha 7-12 area(s) 2 ity of sone 00:00: (two) [place] (LOTRISONE) 00 times Medical cream daily. Branch tiZANidine 2022-0 Yes [id number] 4mg Take 1 [facility] nivers 4 mg tablet 7-12 tablet by ity of 00:00: mouth 3 00 (three) Medical times Branch daily as needed for Pain (scale 4-6). clotrimazol 2022-0 Yes [id number] Apply to [facility] e-betametha 7-12 area(s) 2 ity of sone 00:00: (two) [place] (LOTRISONE) 00 times Medical cream daily. Branch tiZANidine 2022-0 Yes [id number] 4mg Take 1 [facility] n[facility] 4 mg tablet 7-12 tablet by ity of 00:00: mouth 3 [place] 00 (three) Medical times Branch daily as needed for Pain (scale 4-6). clotrimazol 2022-0 Yes [id number] Apply to [facility] e-betametha 7-12 area(s) 2 ity of sone 00:00: (two) [place] (LOTRISONE) 00 times Medical cream daily. Branch tiZANidine 2022-0 Yes [id number] 4mg Take 1 [facility] nivers 4 mg tablet 7-12 tablet by ity of 00:00: mouth 3 00 (three) Medical times Branch daily as needed for Pain (scale 4-6). clotrimazol 2022-0 Yes [id number] Apply to [facility] e-betametha 7-12 area(s) 2 ity of sone 00:00: (two) [place] (LOTRISONE) 00 times Medical cream daily. Branch tiZANidine 2022-0 Yes [id number] 4mg Take 1 [facility] nivers 4 mg tablet 7-12 tablet by ity of 00:00: mouth 3 00 (three) Medical times Branch daily as needed for Pain (scale 4-6). clotrimazol 2022-0 Yes [id number] Apply to [facility] e-betametha 7-12 area(s) 2 ity of sone 00:00: (two) [place] (LOTRISONE) 00 times Medical cream daily. Branch tiZANidine 2022-0 Yes [id number] 4mg Take 1 [facility] n[facility] 4 mg tablet 7-12 tablet by ity of 00:00: mouth 3 00 (three) Medical times Branch daily as needed for Pain (scale 4-6). clotrimazol 2022-0 Yes [id number] Apply to [facility] e-betametha 7-12 area(s) 2 ity of sone 00:00: (two) [place] (LOTRISONE) 00 times Medical cream daily. Branch tiZANidine 2022-0 Yes [id number] 4mg Take 1 [facility] n[facility] 4 mg tablet 7-12 tablet by ity of 00:00: mouth 3 [place] 00 (three) Medical times Branch daily as needed for Pain (scale 4-6). clotrimazol 2022-0 Yes [id number] Apply to [facility] e-betametha 7-12 area(s) 2 ity of sone 00:00: (two) [place] (LOTRISONE) 00 times Medical cream daily. Branch tiZANidine 2022-0 Yes [id number] 4mg Take 1 [facility] nivers 4 mg tablet 7-12 tablet by ity of 00:00: mouth 3 00 (three) Medical times Branch daily as needed for Pain (scale 4-6). clotrimazol 2022-0 Yes [id number] Apply to [facility] e-betametha 7-12 area(s) 2 ity of sone 00:00: (two) [place] (LOTRISONE) 00 times Medical cream daily. Branch tiZANidine 2022-0 Yes [id number] 4mg Take 1 [facility] nivers 4 mg tablet 7-12 tablet by ity of 00:00: mouth 3 00 (three) Medical times Branch daily as needed for Pain (scale 4-6). clotrimazol 2022-0 Yes [id number] Apply to [facility] e-betametha 7-12 area(s) 2 ity of sone 00:00: (two) [place] (LOTRISONE) 00 times Medical cream daily. Branch tiZANidine 2022-0 Yes [id number] 4mg Take 1 [facility] nivers 4 mg tablet 7-12 tablet by ity of 00:00: mouth 3 00 (three) Medical times Branch daily as needed for Pain (scale 4-6). clotrimazol 2022-0 Yes [id number] Apply to [facility] e-betametha 7-12 area(s) 2 ity of sone 00:00: (two) [place] (LOTRISONE) 00 times Medical cream daily. Branch tiZANidine 2022-0 Yes [id number] 4mg Take 1 [facility] nivers 4 mg tablet 7-12 tablet by ity of 00:00: mouth 3 00 (three) Medical times Branch daily as needed for Pain (scale 4-6). clotrimazol 2022-0 Yes [id number] Apply to [facility] e-betametha 7-12 area(s) 2 ity of sone 00:00: (two) [place] (LOTRISONE) 00 times Medical cream daily. Branch tiZANidine 2-0 Yes [id number] 4mg Take 1 [facility] nivers 4 mg tablet 7-12 tablet by ity of 00:00: mouth 3 [place] 00 (three) Medical times Branch daily as needed for Pain (scale 4-6). clotrimazol 2022-0 Yes [id number] Apply to [facility] e-betametha 7-12 area(s) 2 ity of sone 00:00: (two) [place] (LOTRISONE) 00 times Medical cream daily. Branch clotrimazol 2-0 Yes [id number] Apply to [facility] e-betametha 7-12 area(s) 2 ity of sone 00:00: (two) [place] (LOTRISONE) 00 times Medical cream daily. Branch clotrimazol 2-0 Yes [id number] Apply to [facility] e-betametha 7-12 area(s) 2 ity of sone 00:00: (two) [place] (LOTRISONE) 00 times Medical cream daily. Branch clotrimazol 2-0 Yes [id number] Apply to [facility] e-betametha 7-12 area(s) 2 ity of sone 00:00: (two) [place] (LOTRISONE) 00 times Medical cream daily. Branch clotrimazol 2022-0 Yes [id number] Apply to [facility] e-betametha 7-12 area(s) 2 ity of sone 00:00: (two) [place] (LOTRISONE) 00 times Medical cream daily. Branch clotrimazol 2022-0 Yes [id number] Apply to [facility] e-betametha 7-12 area(s) 2 ity of sone 00:00: (two) [place] (LOTRISONE) 00 times Medical cream daily. Branch clotrimazol 2022-0 Yes [id number] Apply to [facility] e-betametha 7-12 area(s) 2 ity of sone 00:00: (two) [place] (LOTRISONE) 00 times Medical cream daily. Branch clotrimazol 2022-0 Yes [id number] Apply to [facility] e-betametha 7-12 area(s) 2 ity of sone 00:00: (two) [place] (LOTRISONE) 00 times Medical cream daily. Branch clotrimazol 2022-0 Yes [id number] Apply to [facility] e-betametha 7-12 area(s) 2 ity of sone 00:00: (two) [place] (LOTRISONE) 00 times Medical cream daily. Branch clotrimazol 2022-0 Yes [id number] Apply to [facility] e-betametha 7-12 area(s) 2 ity of sone 00:00: (two) [place] (LOTRISONE) 00 times Medical cream daily. Branch clotrimazol 2022-0 Yes [id number] Apply to [facility] e-betametha 7-12 area(s) 2 ity of sone 00:00: (two) [place] (LOTRISONE) 00 times Medical cream daily. Branch clotrimazol 2022-0 Yes [id number] Apply to [facility] e-betametha 7-12 area(s) 2 ity of sone 00:00: (two) [place] (LOTRISONE) 00 times Medical cream daily. Branch clotrimazol 2022-0 Yes [id number] Apply to [facility] e-betametha 7-12 area(s) 2 ity of sone 00:00: (two) [place] (LOTRISONE) 00 times Medical cream daily. Branch clotrimazol 2022-0 Yes [id number] Apply to [facility] e-betametha 7-12 area(s) 2 ity of sone 00:00: (two) [place] (LOTRISONE) 00 times Medical cream daily. Branch clotrimazol 2022-0 Yes [id number] Apply to [facility] e-betametha 7-12 area(s) 2 ity of sone 00:00: (two) [place] (LOTRISONE) 00 times Medical cream daily. Branch clotrimazol 2022-0 Yes [id number] Apply to [facility] e-betametha 7-12 area(s) 2 ity of sone 00:00: (two) [place] (LOTRISONE) 00 times Medical cream daily. Branch clotrimazol 2022-0 Yes [id number] Apply to [facility] e-betametha 7-12 area(s) 2 ity of sone 00:00: (two) [place] (LOTRISONE) 00 times Medical cream daily. Branch clotrimazol 2022-0 Yes [id number] Apply to [facility] e-betametha -12 area(s) 2 ity of sone 00:00: (two) [place] (LOTRISONE) 00 times Medical cream daily. Branch clotrimazol 0 Yes [id number] Apply to [facility] e-betametha 12 area(s) 2 ity of sone 00:00: (two) [place] (LOTRISONE) 00 times Medical cream daily. Branch clotrimazol 2022- No [id number] Apply to [facility] e-betametha 12-30 area(s) 2 it y of sone 00:00: 00:00 (two) [place] (LOTRISONE) 00 :00 times Medical cream daily. Branch clotrimazol 2022- No [id number] Apply to [facility] e-betametha 12-30 area(s) 2 it y of sone 00:00: 00:00 (two) [place] (LOTRISONE) 00 :00 times Medical cream daily. Branch tiZANidine 3- No [id number] 4mg Take 1 [facility] 4 mg tablet 12-30 tablet by it y of 00:00: 00:00 mouth 3 00 :00 (three) Medical times Branch daily as needed for Pain (scale 4-6). tiZANidine 2021-3- No [id number] 4mg Take 1 [facility] 4 mg tablet 12-30 tablet by it y of 00:00: 00:00 mouth 3 00 :00 (three) Medical times Branch daily as needed for Pain (scale 4-6). tiZANidine 2021-0 3- No [id number] 4mg Take 1 [facility] 4 mg tablet 12-30 tablet by it y of 00:00: 00:00 mouth 3 00 :00 (three) Medical times Branch daily as needed for Pain (scale 4-6). tiZANidine 2021-0 3- No [id number] 4mg Take 1 [facility] 4 mg tablet 12-30- tablet by it y of 00:00: 00:00 mouth 3 [place] 00 :00 (three) Medical times Branch daily as needed for Pain (scale 4-6). lisinopriL 2022-0 Yes [id number] 20mg Take 1 U nivers 20 mg 7-08 tablet by ity of tablet 00:00: mouth [place] 00 daily. Medical Branch lisinopriL 2021-0 Yes [id number] 20mg Take 1 [facility] nivers 20 mg 7-08 tablet by ity of tablet 00:00: mouth [place] 00 daily. Medical Branch lisinopriL 2021-0 Yes [id number] 20mg Take 1 [facility] nivers 20 mg 7-08 tablet by ity of tablet 00:00: mouth [place] 00 daily. Medical Branch lisinopriL 2021-0 Yes [id number] 20mg Take 1 [facility] nivers 20 mg 7-08 tablet by ity of tablet 00:00: mouth [place] 00 daily. Medical Branch lisinopriL 2021-0 Yes [id number] 20mg Take 1 [facility] nivers 20 mg 7-08 tablet by ity of tablet 00:00: mouth [place] 00 daily. Medical Branch lisinopriL 2021-0 Yes [id number] 20mg Take 1 [facility] nivers 20 mg 7-08 tablet by ity of tablet 00:00: mouth [place] 00 daily. Medical Branch lisinopriL 2021-0 Yes [id number] 20mg Take 1 U nivers 20 mg 7-08 tablet by ity of tablet 00:00: mouth [place] 00 daily. Medical Branch lisinopriL 2021-0 Yes [id number] 20mg Take 1 U nivers 20 mg 7-08 tablet by ity of tablet 00:00: mouth [place] 00 daily. Medical Branch lisinopriL 2021-0 Yes [id number] 20mg Take 1 [facility] nivers 20 mg 7-08 tablet by ity of tablet 00:00: mouth [place] 00 daily. Medical Branch lisinopriL 2021-0 Yes [id number] 20mg Take 1 U nivers 20 mg 7-08 tablet by ity of tablet 00:00: mouth [place] 00 daily. Medical Branch lisinopriL 2021-0 Yes [id number] 20mg Take 1 U nivers 20 mg 7-08 tablet by ity of tablet 00:00: mouth [place] 00 daily. Medical Branch lisinopriL 2021-0 Yes [id number] 20mg Take 1 [facility] nivers 20 mg 7-08 tablet by ity of tablet 00:00: mouth [place] 00 daily. Medical Branch lisinopriL 2022-0 Yes [id number] 20mg Take 1 U nivers 20 mg 7-08 tablet by ity of tablet 00:00: mouth [place] 00 daily. Medical Branch lisinopriL 0 Yes [id number] 20mg Take 1 U nivers 20 mg 7-08 tablet by ity of tablet 00:00: mouth [place] 00 daily. Medical Branch lisinopriL 0 Yes [id number] 20mg Take 1 U nivers 20 mg 7-08 tablet by ity of tablet 00:00: mouth [place] 00 daily. Medical Branch lisinopriL 0 Yes [id number] 20mg Take 1 U nivers 20 mg 7-08 tablet by ity of tablet 00:00: mouth [place] 00 daily. Medical Branch lisinopriL 0 Yes [id number] 20mg Take 1 U nivers 20 mg 7-08 tablet by ity of tablet 00:00: mouth [place] 00 daily. Medical Branch lisinopriL 0 Yes [id number] 20mg Take 1 U nivers 20 mg 7-08 tablet by ity of tablet 00:00: mouth [place] 00 daily. Medical Branch lisinopriL Yes [id number] 20mg Take 1 U nivers 20 mg 7-08 tablet by ity of tablet 00:00: mouth [place] 00 daily. Medical Branch lisinopriL 2021- No [id number] 20mg Take 1 [facility] 20 mg 7-08 12-29 tablet by ity of tablet 00:00: 00:00 mouth [place] 00 :00 daily. Medical Branch lisinopriL 2021- No [id number] 20mg Take 1 [facility] 20 mg 7-08 12-29 tablet by ity of tablet 00:00: 00:00 mouth [place] 00 :00 daily. Medical Branch lisinopriL 0 2021- No [id number] 20mg Take 1 [facility] 20 mg 7-08 12-29 tablet by ity of tablet 00:00: 00:00 mouth [place] 00 :00 daily. Medical Branch NOVOLOG MIX 0 Yes [id number] INJECT 20 [facility] 70-30 100 5-31 UNITS ity of unit/mL 00:00: UNDER THE [place] (70-30) 00 SKIN 2 Medical injection (TWO) Branch TIMES DAILY BEFORE BREAKFAST AND DINNER. NOVOLOG MIX 0 Yes [id number] INJECT 20 [facility] 70-30 100 5-31 UNITS ity of unit/mL 00:00: UNDER THE (-30) 00 SKIN 2 Medical injection (TWO) Branch TIMES DAILY BEFORE BREAKFAST AND DINNER. NOVOLOG MIX 2021-0 Yes [id number] INJECT 20 [facility] 70-30 100 5-31 UNITS ity of unit/mL 00:00: UNDER THE (-30) 00 SKIN 2 Medical injection (TWO) Branch TIMES DAILY BEFORE BREAKFAST AND DINNER. NOVOLOG MIX 2021-2021- No [id number] INJECT 20 [facility] 70-30 100 5-31 09-14 UNITS ity of unit/mL 00:00: 00:[address] [facility] s (30) 00 :00 SKIN 2 Medical injection (TWO) Branch TIMES DAILY BEFORE BREAKFAST AND DINNER. aspirin 2022-0 Yes 81mg Take 81 mg Univ ers (ADULT LOW 5-16 by mouth ity o f DOSE 10:43: daily. [place] ASPIRIN) 81 19 Medical mg EC Branch tablet aspirin 2021-0 Yes 81mg Take 81 mg Univ ers (ADULT LOW 5-16 by mouth ity o f DOSE 10:43: daily. [place] ASPIRIN) 81 19 Medical mg EC Branch tablet aspirin 2-0 Yes 81mg Take 81 mg Univ ers (ADULT LOW 5-16 by mouth ity o f DOSE 10:43: daily. [place] ASPIRIN) 81 19 Medical mg EC Branch tablet aspirin 2-0 Yes 81mg Take 81 mg Univ ers (ADULT LOW 5-16 by mouth ity o f DOSE 10:43: daily. [place] ASPIRIN) 81 19 Medical mg EC Branch tablet aspirin 2-0 Yes 81mg Take 81 mg Univ ers (ADULT LOW 5-16 by mouth ity o f DOSE 10:43: daily. [place] ASPIRIN) 81 19 Medical mg EC Branch tablet aspirin 2-0 Yes 81mg Take 81 mg Univ ers (ADULT LOW 5-16 by mouth ity o f DOSE 10:43: daily. [place] ASPIRIN) 81 19 Medical mg EC Branch tablet aspirin 2022-0 Yes 81mg Take 81 mg Univ ers (ADULT LOW 5-16 by mouth ity o f DOSE 10:43: daily. [place] ASPIRIN) 81 19 Medical mg EC Branch [...] 19 Medical mg EC Branch tablet CANDESARTAN 2- No [id number] 4mg TAKE 1 [facility] 4 mg tablet 10-23-08 TABLET BY it y of 00:00: 00:00 MOUTH [place] 00 :00 DAILY. Medical REPLACES Branch LISINOPRIL . CANDESARTAN 2- No [id number] 4mg TAKE 1 [facility] 4 mg tablet 5-08 TABLET BY it y of 00:00: 00:00 MOUTH [place] 00 :00 DAILY. Medical REPLACES Branch LISINOPRIL . metformin 2- No [id number] 500mg Take 1 [facility] ER 500 mg 10-07-16 tablet by ity of 24 hr 00:00: 00:00 mouth 2 [place] tablet 00 :00 (two) Medical times Branch daily with meals. metformin 2- No [id number] 500mg Take 1 [facility] ER 500 mg 10-07-16 tablet by ity of 24 hr 00:00: 00:00 mouth 2 [place] tablet 00 :00 (two) Medical times Branch daily with meals. fluticasone 2021- No [id number] 2{spray Use 2 [facility] propionate 09-08 } Sprays in ity of 50 00:00: 00:00 each [place] mcg/actuati 00 :00 nostril Medic al on nasal daily. Branch spray guaiFENesin 2021- No [id number] 100mg Take 5 mL [facility] 100 mg/5 mL 09-08 by mouth ity of solution 00:00: 00:00 every 4 [place] 00 :00 (four) Medical hours as Branch needed for Cough. fluticasone 2021- No [id number] 2{spray Use 2 [facility] propionate 09-08 } Sprays in ity of 50 00:00: 00:00 each [place] mcg/actuati 00 :00 nostril Medic al on nasal daily. Branch spray guaiFENesin 2021- No [id number] 100mg Take 5 mL [facility] 100 mg/5 mL 09-08 by mouth ity of solution 00:00: 00:00 every 4 [place] 00 :00 (four) Medical hours as Branch needed for Cough. [facility] Yes Apply to Univ ers WITH 3-12 [...] WITH 3-12 area(s). ity of LIDOCAINE 19:59: [place] [address] Medical Branch [facility] Yes Apply to Univ ers WITH 3-12 area(s). ity of LIDOCAINE 19:59: [place] TOPICAL Medical Branch [facility] Yes Apply to Univ ers WITH 3-12 area(s). ity of LIDOCAINE 19:59: [place] TOPICAL Medical Branch [facility] Yes Apply to Univ ers WITH 3-12 area(s). ity of LIDOCAINE 19:59: [place] TOPICAL Medical Branch [facility] Yes Apply to Univ ers WITH 3-12 area(s). ity of LIDOCAINE 19:59: [place] [address] Medical Branch [facility] Yes Apply to Univ ers WITH 3-12 area(s). ity of LIDOCAINE 19:59: [address] apixaban 2021- No [id number] 5mg Take [...] s: atrial fibrillati on FINASTERIDE 2020-06- No [id number] TAKE 1 [facility] 5 mg tablet 08-04 TABLET BY it y of 00:00: 00:00 MOUTH [place] 00 :00 EVERY DAY Medical Branch FINASTERIDE 2020-06- No [id number] TAKE 1 [facility] 5 mg tablet 08-04 TABLET BY it y of 00:00: 00:00 MOUTH [place] 00 :00 EVERY DAY Medical Branch PANTOPRAZOL 2020-06 Yes [id number] TAKE 1 [facility] E 40 mg EC 07-13 [id number] TABLET BY it y of tablet 00:00: MOUTH 00 EVERY DAY Medical Branch PANTOPRAZOL 2020-06 Yes [id number] TAKE 1 [facility] E 40 mg EC 07-13 [id number] TABLET BY it y of tablet 00:00: MOUTH [place] 00 EVERY DAY Medical Branch PANTOPRAZOL 2020-06 Yes [id number] TAKE 1 [facility] E 40 mg EC 1-23 [id number] TABLET BY it y of tablet 00:00: [facility] EVERY DAY Medical Branch PANTOPRAZOL 2020-06 Yes [id number] TAKE 1 Univers E 40 mg EC 1-23 [id number] TABLET BY it y of tablet 00:00: [facility] EVERY DAY Medical Branch PANTOPRAZOL 2020-06 Yes [id number] TAKE 1 Univers E 40 mg EC 1-23 [id number] TABLET BY it y of tablet 00:00: [facility] EVERY DAY Medical Branch PANTOPRAZOL 2020-06 Yes [id number] TAKE 1 [facility] E 40 mg EC 1-23 [id number] TABLET BY it y of tablet 00:00: [facility] EVERY DAY Medical Branch PANTOPRAZOL 2020-06 Yes [id number] TAKE 1 [facility] E 40 mg EC 1-23 [id number] TABLET BY it y of tablet 00:00: [facility] EVERY DAY Medical Branch PANTOPRAZOL 2020-06 Yes [id number] TAKE 1 [facility] E 40 mg EC 1-23 [id number] TABLET BY it y of tablet 00:00: [facility] EVERY DAY Medical Branch PANTOPRAZOL 2020-06 Yes [id number] TAKE 1 [facility] E 40 mg EC 1-23 [id number] TABLET BY it y of tablet 00:00: [facility] EVERY DAY Medical Branch PANTOPRAZOL 2020-06 Yes [id number] TAKE 1 [facility] E 40 mg EC 1-23 [id number] TABLET BY it y of tablet 00:00: [facility] EVERY DAY Medical Branch PANTOPRAZOL 2020-06 Yes [id number] TAKE 1 [facility] E 40 mg EC 1-23 [id number] TABLET BY it y of tablet 00:00: [facility] EVERY DAY Medical Branch PANTOPRAZOL 2020-06 Yes [id number] TAKE 1 [facility] E 40 mg EC 1-23 [id number] TABLET BY it y of tablet 00:00: [facility] EVERY DAY Medical Branch PANTOPRAZOL 2020-06 Yes [id number] TAKE 1 [facility] E 40 mg EC 1-23 [id number] TABLET BY it y of tablet 00:00: [facility] EVERY DAY Medical Branch PANTOPRAZOL 2020-06 Yes [id number] TAKE 1 [facility] E 40 mg EC 1-23 [id number] TABLET BY it y of tablet 00:00: [facility] EVERY DAY Medical Branch PANTOPRAZOL 2020-06 Yes [id number] TAKE 1 [facility] E 40 mg EC 1-23 [id number] TABLET BY it y of tablet 00:00: MOUTH [place] 00 EVERY DAY Medical Branch PANTOPRAZOL 2020-06 Yes [id number] TAKE 1 [facility] E 40 mg EC 1-23 [id number] TABLET BY it y of tablet 00:00: MOUTH [place] EVERY DAY Medical Branch PANTOPRAZOL 2020-06 Yes [id number] TAKE 1 [facility] E 40 mg EC 1-23 [id number] TABLET BY it y of tablet 00:00: MOUTH [place] EVERY DAY Medical Branch PANTOPRAZOL 2020-06 Yes [id number] TAKE 1 [facility] E 40 mg EC 1-23 [id number] TABLET BY it y of tablet 00:00: [facility] EVERY DAY Medical Branch PANTOPRAZOL 2020-06 Yes [id number] TAKE 1 [facility] E 40 mg EC 1-23 [id number] TABLET BY it y of tablet 00:00: [facility] EVERY DAY Medical Branch PANTOPRAZOL 2020-06 Yes [id number] TAKE 1 [facility] E 40 mg EC 1-23 [id number] TABLET BY it y of tablet 00:00: [facility] EVERY DAY Medical Branch PANTOPRAZOL 2020-06 Yes [id number] TAKE 1 [facility] E 40 mg EC 1-23 [id number] TABLET BY it y of tablet 00:00: [facility] EVERY DAY Medical Branch PANTOPRAZOL 2020-06 Yes [id number] TAKE 1 [facility] E 40 mg EC 1-23 [id number] TABLET BY it y of tablet 00:00: [facility] EVERY DAY Medical Branch PANTOPRAZOL 2020-06 Yes [id number] TAKE 1 [facility] E 40 mg EC 1-23 [id number] TABLET BY it y of tablet 00:00: [facility] 00 EVERY DAY Medical Branch PANTOPRAZOL 2020-06 Yes [id number] TAKE 1 [facility] E 40 mg EC 1-23 [id number] TABLET BY it y of tablet 00:00: [facility] EVERY DAY Medical Branch PANTOPRAZOL 2020-06 Yes [id number] TAKE 1 [facility] E 40 mg EC 1-23 [id number] TABLET BY it y of tablet 00:00: [facility] EVERY DAY Medical Branch PANTOPRAZOL 2020-06 Yes [id number] TAKE 1 [facility] E 40 mg EC 1-23 [id number] TABLET BY it y of tablet 00:00: [facility] EVERY DAY Medical Branch PANTOPRAZOL 2020-06 Yes [id number] TAKE 1 [facility] E 40 mg EC 1-23 [id number] TABLET BY it y of tablet 00:00: MOUTH [place] 00 EVERY DAY Medical Branch PANTOPRAZOL 2020-06 Yes [id number] TAKE 1 [facility] E 40 mg EC 1-23 [id number] TABLET BY it y of tablet 00:00: [facility] EVERY DAY Medical Branch PANTOPRAZOL 2020-06 Yes [id number] TAKE 1 [facility] E 40 mg EC 1-23 [id number] TABLET BY it y of tablet 00:00: [facility] EVERY DAY Medical Branch PANTOPRAZOL 2020-06 Yes [id number] TAKE 1 [facility] E 40 mg EC 1-23 [id number] TABLET BY it y of tablet 00:00: [facility] EVERY DAY Medical Branch PANTOPRAZOL 2020-06 Yes [id number] TAKE 1 [facility] E 40 mg EC 1-23 [id number] TABLET BY it y of tablet 00:00: [facility] EVERY DAY Medical Branch PANTOPRAZOL 2020-06 Yes [id number] TAKE 1 [facility] E 40 mg EC 1-23 [id number] TABLET BY it y of tablet 00:00: [facility] EVERY DAY Medical Branch PANTOPRAZOL 2020-06 Yes [id number] TAKE 1 [facility] E 40 mg EC 1-23 [id number] TABLET BY it y of tablet 00:00: [facility] 00 EVERY DAY Medical Branch PANTOPRAZOL 2020-06 Yes [id number] TAKE 1 [facility] E 40 mg EC 1-23 [id number] TABLET BY it y of tablet 00:00: [facility] EVERY DAY Medical Branch PANTOPRAZOL 2020-06 Yes [id number] TAKE 1 [facility] E 40 mg EC 1-23 [id number] TABLET BY it y of tablet 00:00: [facility] EVERY DAY Medical Branch PANTOPRAZOL 2020-06 Yes [id number] TAKE 1 [facility] E 40 mg EC 1-23 [id number] TABLET BY it y of tablet 00:00: [facility] EVERY DAY Medical Branch PANTOPRAZOL 2020-06 Yes [id number] TAKE 1 [facility] E 40 mg EC 1-23 [id number] TABLET BY it y of tablet 00:00: [facility] EVERY DAY Medical Branch PANTOPRAZOL 2020-06 Yes [id number] TAKE 1 [facility] E 40 mg EC 1-23 [id number] TABLET BY it y of tablet 00:00: [facility] EVERY DAY Medical Branch PANTOPRAZOL 2020-06 Yes [id number] TAKE 1 [facility] E 40 mg EC 1-23 [id number] TABLET BY it y of tablet 00:00: MOUTH [place] 00 EVERY DAY Medical Branch PANTOPRAZOL 2020-06 Yes [id number] TAKE 1 [facility] E 40 mg EC 1-23 [id number] TABLET BY it y of tablet 00:00: MOUTH [place] EVERY DAY Medical Branch PANTOPRAZOL 2020-06 Yes [id number] TAKE 1 [facility] E 40 mg EC 1-23 [id number] TABLET BY it y of tablet 00:00: [facility] EVERY DAY Medical Branch PANTOPRAZOL 2020-06 Yes [id number] TAKE 1 [facility] E 40 mg EC 1-23 [id number] TABLET BY it y of tablet 00:00: MOUTH [place] EVERY DAY Medical Branch PANTOPRAZOL 2020-06 Yes [id number] TAKE 1 [facility] E 40 mg EC 1-23 [id number] TABLET BY it y of tablet 00:00: [facility] EVERY DAY Medical Branch PANTOPRAZOL 2020-06 Yes [id number] TAKE 1 [facility] E 40 mg EC 1-23 [id number] TABLET BY it y of tablet 00:00: [facility] EVERY DAY Medical Branch PANTOPRAZOL 2020-06 Yes [id number] TAKE 1 [facility] E 40 mg EC 1-23 [id number] TABLET BY it y of tablet 00:00: [facility] EVERY DAY Medical Branch PANTOPRAZOL 2020-06 Yes [id number] TAKE 1 [facility] E 40 mg EC 1-23 [id number] TABLET BY it y of tablet 00:00: [facility] EVERY DAY Medical Branch PANTOPRAZOL 2020-06 Yes [id number] TAKE 1 [facility] E 40 mg EC 1-23 [id number] TABLET BY it y of tablet 00:00: [facility] EVERY DAY Medical Branch PANTOPRAZOL 2020-06 Yes [id number] TAKE 1 [facility] E 40 mg EC 1-23 [id number] TABLET BY it y of tablet 00:00: [facility] 00 EVERY DAY Medical Branch PANTOPRAZOL 2020-06 Yes [id number] TAKE 1 [facility] E 40 mg EC 1-23 [id number] TABLET BY it y of tablet 00:00: [facility] EVERY DAY Medical Branch PANTOPRAZOL 2020-06 Yes [id number] TAKE 1 [facility] E 40 mg EC 1-23 [id number] TABLET BY it y of tablet 00:00: [facility] EVERY DAY Medical Branch PANTOPRAZOL 2020-06 Yes [id number] TAKE 1 [facility] E 40 mg EC 1-23 [id number] TABLET BY it y of tablet 00:00: MOUTH [place] 00 EVERY DAY Medical Branch PANTOPRAZOL 2020-06 Yes [id number] TAKE 1 [facility] E 40 mg EC 1-23 [id number] TABLET BY it y of tablet 00:00: [facility] EVERY DAY Medical Branch PANTOPRAZOL 2020-06 Yes [id number] TAKE 1 [facility] E 40 mg EC 1-23 [id number] TABLET BY it y of tablet 00:00: [facility] EVERY DAY Medical Branch PANTOPRAZOL 2020-06 Yes [id number] TAKE 1 [facility] E 40 mg EC 1-23 [id number] TABLET BY it y of tablet 00:00: [facility] EVERY DAY Medical Branch PANTOPRAZOL 2020-06 Yes [id number] TAKE 1 [facility] E 40 mg EC 1-23 [id number] TABLET BY it y of tablet 00:00: [facility] EVERY DAY Medical Branch PANTOPRAZOL 2020-06 Yes [id number] TAKE 1 [facility] E 40 mg EC 1-23 [id number] TABLET BY it y of tablet 00:00: [facility] EVERY DAY Medical Branch PANTOPRAZOL 2020-06 Yes [id number] TAKE 1 [facility] E 40 mg EC 1-23 [id number] TABLET BY it y of tablet 00:00: [facility] EVERY DAY Medical Branch PANTOPRAZOL 2020-06 Yes [id number] TAKE 1 [facility] E 40 mg EC 1-23 [id number] TABLET BY it y of tablet 00:00: [facility] EVERY DAY Medical Branch PANTOPRAZOL 2020-06 Yes [id number] TAKE 1 [facility] E 40 mg EC 1-23 [id number] TABLET BY it y of tablet 00:00: [facility] EVERY DAY Medical Branch PANTOPRAZOL 2020-06 Yes [id number] TAKE 1 [facility] E 40 mg EC 1-23 [id number] TABLET BY it y of tablet 00:00: [facility] EVERY DAY Medical Branch PANTOPRAZOL 2020-06 Yes [id number] TAKE 1 [facility] E 40 mg EC 1-23 [id number] TABLET BY it y of tablet 00:00: [facility] EVERY DAY Medical Branch PANTOPRAZOL 2020-06 Yes [id number] TAKE 1 [facility] E 40 mg EC 1-23 [id number] TABLET BY it y of tablet 00:00: [facility] EVERY DAY Medical Branch PANTOPRAZOL 2020-06 Yes [id number] TAKE 1 [facility] E 40 mg EC 1-23 [id number] TABLET BY it y of tablet 00:00: [facility] EVERY DAY Medical Branch PANTOPRAZOL 2020-06 Yes [id number] TAKE 1 [facility] E 40 mg EC 1-23 [id number] TABLET BY it y of tablet 00:00: MOUTH 00 EVERY DAY Medical Branch PANTOPRAZOL 2020-06 Yes [id number] TAKE 1 [facility] E 40 mg EC 1-23 [id number] TABLET BY it y of tablet 00:00: MOUTH EVERY DAY Medical Branch PANTOPRAZOL 2020-06 Yes [id number] TAKE 1 [facility] E 40 mg EC 1-23 [id number] TABLET BY it y of tablet 00:00: MOUTH [place] 00 EVERY DAY Medical Branch PANTOPRAZOL 2020-06 Yes [id number] TAKE 1 [facility] E 40 mg EC 1-23 [id number] TABLET BY it y of tablet 00:00: MOUTH 00 EVERY DAY Medical Branch PANTOPRAZOL 2020-06 Yes [id number] TAKE 1 [facility] E 40 mg EC 1-23 [id number] TABLET BY it y of tablet 00:00: MOUTH EVERY DAY Medical Branch PANTOPRAZOL 2020-06 Yes [id number] TAKE 1 [facility] E 40 mg EC 1-23 [id number] TABLET BY it y of tablet 00:00: MOUTH 00 EVERY DAY Medical Branch PANTOPRAZOL 2020-06 Yes [id number] TAKE 1 [facility] E 40 mg EC 1-23 [id number] TABLET BY it y of tablet 00:00: MOUTH 00 EVERY DAY Medical Branch PANTOPRAZOL 2020-06 Yes [id number] TAKE 1 [facility] E 40 mg EC 1-23 [id number] TABLET BY it y of tablet 00:00: MOUTH 00 EVERY DAY Medical Branch PANTOPRAZOL 2020-06 Yes [id number] TAKE 1 [facility] E 40 mg EC 1-23 [id number] TABLET BY it y of tablet 00:00: MOUTH [place] 00 EVERY DAY Medical Branch escitalopra 2020-06- No [id number] 10mg Take 1 Univers m oxalate 07-05- tablet by ity of 10 mg 00:00: 00:00 mouth [place] tablet 00 :00 daily. Medical Branch escitalopra 2020-06- No [id number] 10mg Take 1 Univers m oxalate -15 - tablet by ity of 10 mg 00:00: 00:00 mouth [place] tablet 00 :00 daily. Medical Branch Insulin Yes [id number] Use as Univ ers [place], 9-20 directed ity of Disposable, 00:00: twice [place] (PEN 00 daily to Medical NEEDLE) 32 inject Branch gauge x insulin; 5/" Ndle ICD-10 E11.65 Insulin 2020-0 Yes [id number] Use as Univ ers [place], 9-20 directed ity of Disposable, 00:00: twice [place] (PEN 00 daily to Medical NEEDLE) 32 inject Branch gauge x insulin; 5/" Ndle ICD-10 E11.65 Insulin 2020-0 Yes [id number] Use as Univ ers [place], 9-20 directed ity of Disposable, 00:00: twice [place] (PEN 00 daily to Medical NEEDLE) 32 inject Branch gauge x insulin; 5/" Ndle ICD-10 E11.65 Insulin 2020-0 Yes [id number] Use as Univ ers [place], 9- directed ity of Disposable, 00:00: twice [place] (PEN 00 daily to Medical NEEDLE) 32 inject Branch gauge x insulin; 5/" Ndle ICD-10 E11.65 Insulin 2020-0 Yes [id number] Use as Univ ers [place], 9- directed ity of Disposable, 00:00: twice [place] (PEN 00 daily to Medical NEEDLE) 32 inject Branch gauge x insulin; 5/" Ndle ICD-10 E11.65 Insulin 2020-0 Yes [id number] Use as Univ ers [place], 9- directed ity of Disposable, 00:00: twice [place] (PEN 00 daily to Medical NEEDLE) 32 inject Branch gauge x insulin; /" Ndle ICD-10 E11.65 Insulin 2020-0 Yes [id number] Use as Univ ers [place], 9-20 directed ity of Disposable, 00:00: twice [place] (PEN 00 daily to Medical NEEDLE) 32 inject Branch gauge x insulin; 5/32" Ndle ICD-10 E11.65 Insulin 2020-0 Yes [id number] Use as Univ ers [place], 9-20 directed ity of Disposable, 00:00: twice [place] (PEN 00 daily to Medical NEEDLE) 32 inject Branch gauge x insulin; 5/32" Ndle ICD-10 E11.65 Insulin 2020-0 Yes [id number] Use as [facility] ers [place], 9-20 directed ity of Disposable, 00:00: twice [place] (PEN 00 daily to Medical NEEDLE) 32 inject Branch gauge x insulin; 5/32" Ndle ICD-10 E11.65 Insulin 2020-0 Yes [id number] Use as Univ ers [place], 9-20 directed ity of Disposable, 00:00: twice [place] (PEN 00 daily to Medical NEEDLE) 32 inject Branch gauge x insulin; 5/" Ndle ICD-10 E11.65 Insulin 0 Yes [id number] Use as [facility] ers [place], 9-20 directed ity of Disposable, 00:00: twice [place] (PEN 00 daily to Medical NEEDLE) 32 inject Branch gauge x insulin; 5/" Ndle ICD-10 E11.65 Insulin 0 Yes [id number] Use as [facility] ers [place], 9-20 directed ity of Disposable, 00:00: twice [place] (PEN 00 daily to Medical NEEDLE) 32 inject Branch gauge x insulin; " Ndle ICD-10 E11.65 Insulin 0 Yes [id number] Use as [facility] ers [place], 9-20 directed ity of Disposable, 00:00: twice [place] (PEN 00 daily to Medical NEEDLE) 32 inject Branch gauge x insulin; " Ndle ICD-10 E11.65 Insulin 0 Yes [id number] Use as [facility] ers [place], 9-20 directed ity of Disposable, 00:00: twice [place] (PEN 00 daily to Medical NEEDLE) 32 inject Branch gauge x insulin; " Ndle ICD-10 E11.65 Insulin 2020-0 Yes [id number] Use as [facility] [place], 9-20 directed ity of Disposable, 00:00: twice [place] (PEN 00 daily to Medical NEEDLE) 32 inject Branch gauge x insulin; " Ndle ICD-10 E11.65 Insulin 2020-0 Yes [id number] Use as [facility] ers [place], 9-20 directed ity of Disposable, 00:00: twice [place] (PEN 00 daily to Medical NEEDLE) 32 inject Branch gauge x insulin; /" Ndle ICD-10 E11.65 Insulin 2020-0 Yes [id number] Use as [facility] ers [place], 9-20 directed ity of Disposable, 00:00: twice [place] (PEN 00 daily to Medical NEEDLE) 32 inject Branch gauge x insulin; /" Ndle ICD-10 E11.65 Insulin 0 Yes [id number] Use as [facility] ers [place], 9-20 directed ity of Disposable, 00:00: twice [place] (PEN 00 daily to Medical NEEDLE) 32 inject Branch gauge x insulin; 5/32" Ndle ICD-10 E11.65 Insulin 2020-0 Yes [id number] Use as Univ ers [place], 9-20 directed ity of Disposable, 00:00: twice [place] (PEN 00 daily to Medical NEEDLE) 32 inject Branch gauge x insulin; 5/" Ndle ICD-10 E11.65 Insulin 0 Yes [id number] Use as [facility] [place], 9-20 directed ity of Disposable, 00:00: twice [place] (PEN 00 daily to Medical NEEDLE) 32 inject Branch gauge x insulin; 5/" Ndle ICD-10 E11.65 Insulin 0 Yes [id number] Use as [facility] [place], 9-20 directed ity of Disposable, 00:00: twice [place] (PEN 00 daily to Medical NEEDLE) 32 inject Branch gauge x insulin; " Ndle ICD-10 E11.65 Insulin 0 Yes [id number] Use as [facility] [place], 9-20 directed ity of Disposable, 00:00: twice [place] (PEN 00 daily to Medical NEEDLE) 32 inject Branch gauge x insulin; 5" Ndle ICD-10 E11.65 Insulin 0 Yes [id number] Use as [facility] ers [place], 9-20 directed ity of Disposable, 00:00: twice [place] (PEN 00 daily to Medical NEEDLE) 32 inject Branch gauge x insulin; " Ndle ICD-10 E11.65 Insulin 0 Yes [id number] Use as [facility] ers [place], 9-20 directed ity of Disposable, 00:00: twice [place] (PEN 00 daily to Medical NEEDLE) 32 inject Branch gauge x insulin; " Ndle ICD-10 E11.65 Insulin 0 Yes [id number] Use as [facility] ers [place], 9-20 directed ity of Disposable, 00:00: twice [place] (PEN 00 daily to Medical NEEDLE) 32 inject Branch gauge x insulin; /" Ndle ICD-10 E11.65 Insulin 2020-0 Yes [id number] Use as [facility] [place], 9-20 directed ity of Disposable, 00:00: twice [place] (PEN 00 daily to Medical NEEDLE) 32 inject Branch gauge x insulin; /" Ndle ICD-10 E11.65 Insulin 0 Yes [id number] Use as [facility] ers [place], 9-20 directed ity of Disposable, 00:00: twice [place] (PEN 00 daily to Medical NEEDLE) 32 inject Branch gauge x insulin; 5/32" Ndle ICD-10 E11.65 Insulin 0 Yes [id number] Use as Univ ers [place], 9 directed ity of Disposable, 00:00: twice [place] (PEN 00 daily to Medical NEEDLE) 32 inject Branch gauge x insulin; 5/32" Ndle ICD-10 E11.65 Insulin Yes [id number] Use as Univ ers [place], 03-10 directed ity of Disposable, 00:00: twice [place] (PEN 00 daily to Medical NEEDLE) 32 inject Branch gauge x insulin; 5/32" Ndle ICD-10 E11.65 Insulin Yes [id number] Use as [facility] [place], 03-10 directed ity of Disposable, 00:00: twice [place] (PEN 00 daily to Medical NEEDLE) 32 inject Branch gauge x insulin; 5/32" Ndle ICD-10 E11.65 Insulin Yes [id number] Use as Univ ers [place], 03-10 directed ity of Disposable, 00:00: twice [place] (PEN 00 daily to Medical NEEDLE) 32 inject Branch gauge x insulin; 5/32" Ndle ICD-10 E11.65 Insulin 0 Yes [id number] Use as Univ ers [place], 03-10 directed ity of Disposable, 00:00: twice [place] (PEN 00 daily to Medical NEEDLE) 32 inject Branch gauge x insulin; 5/32" Ndle ICD-10 E11.65 Insulin 0 2022- No [id number] Use as Uni vers [place], 03-10 directed ity of Disposable, 00:00: 00:00 [place] (PEN 00 :00 daily to Medical NEEDLE) 32 inject Branch gauge x insulin; 5/32" Ndle ICD-10 E11.65 Insulin 0 2022- No [id number] Use as Uni vers [place], 03-10 directed ity of Disposable, 00:00: 00:00 [place] (PEN 00 :00 daily to Medical NEEDLE) 32 inject Branch gauge x insulin; 5/32" Ndle ICD-10 E11.65 blood sugar 0 2022- No [id number] USE TWICE [facility] diagnostic 03-10- DAILY FOR ity of (ASCENSIA 00:00: 00:00 BLOOD [place] MICROFILL) 00 :00 GLUCOSE Medica l strip MONITORING Branch FOR ICD E11.9 blood sugar 2021- No [id number] USE TWICE Univers diagnostic 03-10 08-04 DAILY FOR ity of (ASCENSIA 00:00: 00:00 BLOOD [place] MICROFILL) 00 :00 GLUCOSE Medica l strip MONITORING Branch FOR ICD E11.9 insulin 2021- No [id number] 20U inject 20 [facility] aspart 920 05-31 Units ity of protamine-i 00:00: 00:00 under the [place] nsulin 00 :00 skin 2 Medical aspart (two) Branch (NOVOLOG times MIX 70-30 daily U-100 before INSULN) 100 breakfast unit/mL and (70-30) dinner. injection insulin 2021- No [id number] 20U inject 20 [facility] aspart -20 05-31 Units ity of protamine-i 00:00: 00:00 under the [place] nsulin 00 :00 skin 2 Medical aspart (two) Branch (NOVOLOG times MIX 70-30 daily U-100 before INSULN) 100 breakfast unit/mL and (70-30) dinner. injection Immunizations Ordered Filled Immunization Date Status Comments [facility] e Immunization Name Name Influenza High Dose 2020-04-19 Completed Un[facility] 00:00:00 [facility] Influenza High Dose 2020-04-19 Completed Unive rsity of [facility] 00:00:00 [facility] Influenza High Dose 2020-04-19 Completed Unive rsity of [facility] 00:00:00 [facility] Influenza High Dose 2020-04-19 Completed Unive rsity of Quad 00:00:00 [facility] Influenza High Dose 2020-04-19 Completed Unive rsity of Quad 00:00:00 [facility] Influenza High Dose 2020-04-19 Completed Unive rsity of Quad 00:00:00 [facility] Influenza High Dose 2020-04-19 Completed Unive rsity of Quad 00:00:00 [facility] Influenza High Dose 2020-04-19 Completed Unive rsity of Quad 00:00:00 [facility] Influenza High Dose 2020-04-19 Completed Unive rsity of Quad 00:00:00 [facility] Influenza High Dose 2020-04-19 Completed Unive rsity of Quad 00:00:00 [facility] Influenza High Dose 2020-04-19 Completed Unive rsity of Quad 00:00:00 [facility] Influenza High Dose 2020-04-19 Completed Unive rsity of Quad 00:00:00 [place] [facility] Influenza High Dose 2020-04-19 Completed Unive rsity of [facility] 00:00:00 [place] [facility] Influenza High Dose 2020-04-19 Completed Unive rsity of [facility] 00:00:00 [facility] Branch Influenza High Dose 2020-04-19 Completed Unive rsity of [facility] 00:00:00 [place] [facility] Influenza High Dose 2020-04-19 Completed Unive rsity of Quad 00:00:00 [place] [facility] Influenza High Dose 2020-04-19 Completed Unive rsity of [facility] 00:00:00 [place] [facility] Influenza High Dose 2020-04-19 Completed Unive rsity of [facility] 00:00:00 [facility] Influenza High Dose 2020-04-19 Completed Unive rsity of [facility] 00:00:00 [facility] Influenza High Dose 2020-04-19 Completed Unive rsity of [facility] 00:00:00 [facility] Influenza High Dose 2020-04-19 Completed Unive rsity of [facility] 00:00:00 [facility] Influenza High Dose 2020-04-19 Completed Unive rsity of [facility] 00:00:00 [place] [facility] Influenza High Dose 2020-04-19 Completed Unive rsity of Quad 00:00:00 [facility] Influenza High Dose 2020-04-19 Completed Unive rsity of Quad 00:00:00 [facility] Influenza High Dose 2020-04-19 Completed Unive rsity of [facility] 00:00:00 [facility] Influenza High Dose 2020-04-19 Completed Unive rsity of [facility] 00:00:00 [facility] Influenza High Dose 2020-04-19 Completed Unive rsity of [facility] 00:00:00 [facility] Influenza High Dose 2020-04-19 Completed Unive rsity of [facility] 00:00:00 [facility] Influenza High Dose 2020-04-19 Completed Unive rsity of [facility] 00:00:00 [place] [facility] Influenza High Dose 2020-04-19 Completed Unive rsity of Quad 00:00:00 [place] [facility] Influenza High Dose 2020-04-19 Completed Unive rsity of Quad 00:00:00 [facility] Influenza High Dose 2020-04-19 Completed Unive rsity of Quad 00:00:00 [facility] Influenza High Dose 2020-04-19 Completed Unive rsity of Quad 00:00:00 [place] [facility] Influenza High Dose 2020-04-19 Completed Unive rsity of Quad 00:00:00 [place] [facility] Influenza High Dose 2020-04-19 Completed Unive rsity of [facility] 00:00:00 [place] [facility] Influenza High Dose 2020-04-19 Completed Unive rsity of Quad 00:00:00 [place] [facility] Influenza High Dose 2020-04-19 Completed Unive rsity of Quad 00:00:00 [place] [facility] Influenza High Dose 2020-04-19 Completed Unive rsity of Quad 00:00:00 [place] [facility] Influenza High Dose 2020-04-19 Completed Unive rsity of Quad 00:00:00 [place] [facility] Influenza High Dose 2020-04-19 Completed Unive rsity of Quad 00:00:00 [place] [facility] Influenza High Dose 2020-04-19 Completed Unive rsity of [facility] 00:00:00 [facility] Influenza High Dose 2020-04-19 Completed Unive rsity of [facility] 00:00:00 [facility] Influenza High Dose 2020-04-19 Completed Unive rsity of Quad 00:00:00 [place] [facility] Influenza High Dose 2020-04-19 Completed Unive rsity of Quad 00:00:00 [facility] Influenza High Dose 2020-04-19 Completed Unive rsity of Quad 00:00:00 [facility] Influenza High Dose 2020-04-19 Completed Unive rsity of Quad 00:00:00 [facility] Influenza High Dose 2020-04-19 Completed Unive rsity of Quad 00:00:00 [facility] Influenza High Dose 2020-04-19 Completed Unive rsity of Quad 00:00:00 [facility] Influenza High Dose 2020-04-19 Completed Unive rsity of Quad 00:00:00 [facility] Influenza High Dose 2020-04-19 Completed Unive rsity of Quad 00:00:00 [place] [facility] Influenza High Dose 2020-04-19 Completed Unive rsity of Quad 00:00:00 [place] [facility] Influenza High Dose 2020-04-19 Completed Unive rsity of Quad 00:00:00 [facility] Influenza High Dose 2020-04-19 Completed Unive rsity of Quad 00:00:00 [place] [facility] Influenza High Dose 2020-04-19 Completed Unive rsity of Quad 00:00:00 [facility] Influenza High Dose 2020-04-19 Completed Unive rsity of [facility] 00:00:00 [facility] Influenza High Dose 2020-04-19 Completed Unive rsity of Quad 00:00:00 [facility] Influenza High Dose 2020-04-19 Completed Unive rsity of Quad 00:00:00 [facility] Influenza High Dose 2020-04-19 Completed Unive rsity of Quad 00:00:00 [facility] Influenza High Dose 2020-04-19 Completed Unive rsity of Quad 00:00:00 [facility] Influenza High Dose 2020-04-19 Completed Unive rsity of Quad 00:00:00 [facility] Influenza High Dose 2020-04-19 Completed Unive rsity of Quad 00:00:00 [facility] Influenza High Dose 2020-04-19 Completed Unive rsity of Quad 00:00:00 [facility] Influenza High Dose 2020-04-19 Completed Unive rsity of Quad 00:00:00 [facility] Influenza High Dose 2020-04-19 Completed Unive rsity of Quad 00:00:00 [facility] Influenza High Dose 2020-04-19 Completed Unive rsity of Quad 00:00:00 [facility] Influenza High Dose 2020-04-19 Completed Unive rsity of Quad 00:00:00 [facility] Influenza High Dose 2020-04-19 Completed Unive rsity of Quad 00:00:00 [facility] Influenza High Dose 2020-04-19 Completed Unive rsity of Quad 00:00:00 [facility] Influenza High Dose 2020-04-19 Completed Unive rsity of Quad 00:00:00 [facility] Influenza High Dose 2020-04-19 Completed Unive rsity of Quad 00:00:00 [facility] Influenza High Dose 2020-04-19 Completed Unive rsity of Quad 00:00:00 [facility] Influenza High Dose 2020-04-19 Completed Unive rsity of Quad 00:00:00 [facility] Influenza High Dose 2019-04-11 Completed Unive rsity of 00:00:00 [facility] Influenza High Dose 2019-04-11 Completed Unive rsity of 00:00:00 [facility] Influenza High Dose 2019-04-11 Completed Unive rsity of 00:00:00 [facility] Influenza High Dose 2019-04-11 Completed Unive rsity of 00:00:00 [facility] Influenza High Dose 2019-04-11 Completed Unive rsity of 00:00:00 [facility] Influenza High Dose 2019-04-11 Completed Unive rsity of 00:00:00 [facility] Influenza High Dose 2019-04-11 Completed Unive rsity of 00:00:00 [facility] Influenza High Dose 2019-04-11 Completed Unive rsity of 00:00:00 [facility] Influenza High Dose 2019-04-11 Completed Unive rsity of 00:00:00 [facility] Influenza High Dose 2019-04-11 Completed Unive rsity of 00:00:00 [facility] Influenza High Dose 2019-04-11 Completed Unive rsity of 00:00:00 [facility] Influenza High Dose 2019-04-11 Completed Unive rsity of 00:00:00 [facility] Influenza High Dose 2019-04-11 Completed Unive rsity of 00:00:00 [facility] Influenza High Dose 2019-04-11 Completed Unive rsity of 00:00:00 [facility] Influenza High Dose 2019-04-11 Completed Unive rsity of 00:00:00 [facility] Influenza High Dose 2019-04-11 Completed Unive rsity of 00:00:00 [facility] Influenza High Dose 2019-04-11 Completed Unive rsity of 00:00:00 [facility] Influenza High Dose 2019-04-11 Completed Unive rsity of 00:00:00 [facility] Influenza High Dose 2019-04-11 Completed [facility] 00[facility]00:00 [facility] Influenza High Dose 2019-04-11 Completed [facility] 00:00:00 [facility] Influenza High Dose 2019-04-11 Completed [facility] 00:00:00 [facility] Influenza High Dose 2019-04-11 Completed [facility] 00:00:00 [facility] Influenza High Dose 2019-04-11 Completed [facility] 00:00:00 [facility] Influenza High Dose 2019-04-11 Completed [facility] 00:00:00 [facility] Influenza High Dose 2019-04-11 Completed [facility] 00:00:00 [facility] Influenza High Dose 2019-04-11 Completed [facility] 00:00:00 [facility] Influenza High Dose 2019-04-11 Completed [facility] 00:00:00 [facility] Influenza High Dose 2019-04-11 Completed [facility] 00:00:00 [facility] Influenza High Dose 2019-04-11 Completed [facility] 00:00:00 [facility] Influenza High Dose 2019-04-11 Completed [facility] 00:00:00 [facility] Influenza High Dose 2019-04-11 Completed [facility] 00:00:00 [facility] Influenza High Dose 2019-04-11 Completed [facility] 00:00:00 [facility] Influenza High Dose 2019-04-11 Completed [facility] 00:00:00 [facility] Influenza High Dose 2019-04-11 Completed [facility] 00:00:00 [facility] Influenza High Dose 2019-04-11 Completed [facility] 00:00:00 [facility] Influenza High Dose 2019-04-11 Completed [facility] 00:00:00 [facility] Influenza High Dose 2019-04-11 Completed [facility] 00:00:00 [facility] Influenza High Dose 2019-04-11 Completed [facility] 00:00:00 [facility] Influenza High Dose 2019-04-11 Completed [facility] 00:00:00 [facility] Influenza High Dose 2019-04-11 Completed [facility] 00:00:00 [facility] Influenza High Dose 2019-04-11 Completed [facility] 00:00:00 [facility] Influenza High Dose 2019-04-11 Completed [facility] 00:00:00 [facility] Influenza High Dose 2019-04-11 Completed [facility] 00:00:00 [facility] Influenza High Dose 2019-04-11 Completed [facility] 00:00:00 [facility] Influenza High Dose 2019-04-11 Completed [facility] 00:00:00 [facility] Influenza High Dose 2019-04-11 Completed [facility] 00:00:00 [facility] Influenza High Dose 2019-04-11 Completed [facility] 00:00:00 [facility] Influenza High Dose 2019-04-11 Completed [facility] 00:00:00 [facility] Influenza High Dose 2019-04-11 Completed [facility] 00:00:00 [facility] Influenza High Dose 2019-04-11 Completed [facility] 00:00:00 [facility] Influenza High Dose 2019-04-11 Completed [facility] 00:00:00 [facility] Influenza High Dose 2019-04-11 Completed [facility] 00:00:00 [facility] Influenza High Dose 2019-04-11 Completed [facility] 00:00:00 [facility] Influenza High Dose 2019-04-11 Completed [facility] 00:00:00 [facility] Influenza High Dose 2019-04-11 Completed [facility] 00:00:00 [facility] Influenza High Dose 2019-04-11 Completed [facility] 00:00:00 [facility] Influenza High Dose 2019-04-11 Completed [facility] 00:00:00 [facility] Influenza High Dose 2019-04-11 Completed [facility] 00:00:00 [facility] Influenza High Dose 2019-04-11 Completed [facility] 00:00:00 [facility] Influenza High Dose 2019-04-11 Completed [facility] 00:00:00 [facility] Influenza High Dose 2019-04-11 Completed [facility] 00:00:00 [facility] Influenza High Dose 2019-04-11 Completed [facility] 00:00:00 [facility] Influenza High Dose 2019-04-11 Completed [facility] 00:00:00 [facility] Influenza High Dose 2019-04-11 Completed [facility] 00:00:00 [facility] Influenza High Dose 2019-04-11 Completed [facility] 00:00:00 [facility] Influenza High Dose 2019-04-11 Completed [facility] 00:00:00 [facility] Influenza High Dose 2019-04-11 Completed [facility] 00:00:00 [facility] Influenza High Dose 2019-04-11 Completed [facility] 00:00:00 [facility] Influenza High Dose 2019-04-11 Completed [facility] 00:00:00 [facility] Influenza High Dose 2019-04-11 Completed [facility] 00:00:00 [facility] Influenza High Dose 2019-04-11 Completed [facility] 00:00:00 [facility] Influenza High Dose 2019-04-11 Completed [facility] 00:00:00 [facility] Influenza High Dose 2018-03-01 Completed [facility] 00:00:00 [facility] Influenza High Dose 2018-03-01 Completed [facility] 00:00:00 [facility] Influenza High Dose 2018-03-01 Completed [facility] 00:00:00 [facility] Influenza High Dose 2018-03-01 Completed [facility] 00:00:00 [facility] Influenza High Dose 2018-03-01 Completed [facility] 00:00:00 [facility] Influenza High Dose 2018-03-01 Completed [facility] 00:00:00 [facility] Influenza High Dose 2018-03-01 Completed [facility] 00:00:00 [facility] Influenza High Dose 2018-03-01 Completed [facility] 00:00:00 [facility] Influenza High Dose 2018-03-01 Completed [facility] 00:00:00 [facility] Influenza High Dose 2018-03-01 Completed [facility] 00:00:00 [facility] Influenza High Dose 2018-03-01 Completed [facility] 00:00:00 [facility] Influenza High Dose 2018-03-01 Completed [facility] 00:00:00 [facility] Influenza High Dose 2018-03-01 Completed [facility] 00:00:00 [facility] Influenza High Dose 2018-03-01 Completed [facility] 00:00:00 [facility] Influenza High Dose 2018-03-01 Completed [facility] 00:00:00 [facility] Influenza High Dose 2018-03-01 Completed [facility] 00:00:00 [facility] Influenza High Dose 2018-03-01 Completed [facility] 00:00:00 [facility] Influenza High Dose 2018-03-01 Completed [facility] 00:00:00 [facility] Influenza High Dose 2018-03-01 Completed [facility] 00:00:00 [facility] Influenza High Dose 2018-03-01 Completed [facility] 00:00:00 [facility] Influenza High Dose 2018-03-01 Completed [facility] 00:00:00 [facility] Influenza High Dose 2018-03-01 Completed [facility] 00:00:00 [facility] Influenza High Dose 2018-03-01 Completed [facility] 00:00:00 [facility] Influenza High Dose 2018-03-01 Completed [facility] 00:00:00 [facility] Influenza High Dose 2018-03-01 Completed [facility] 00:00:00 [facility] Influenza High Dose 2018-03-01 Completed [facility] 00:00:00 [facility] Influenza High Dose 2018-03-01 Completed [facility] 00:00:00 [facility] Influenza High Dose 2018-03-01 Completed [facility] 00:00:00 [facility] Influenza High Dose 2018-03-01 Completed [facility] 00:00:00 [facility] Influenza High Dose 2018-03-01 Completed [facility] 00:00:00 [facility] Influenza High Dose 2018-03-01 Completed [facility] 00:00:00 [facility] Influenza High Dose 2018-03-01 Completed [facility] 00:00:00 [facility] Influenza High Dose 2018-03-01 Completed [facility] 00:00:00 [facility] Influenza High Dose 2018-03-01 Completed [facility] 00:00:00 [facility] Influenza High Dose 2018-03-01 Completed [facility] 00:00:00 [facility] Influenza High Dose 2018-03-01 Completed [facility] 00:00:00 [facility] Influenza High Dose 2018-03-01 Completed [facility] 00:00:00 [facility] Influenza High Dose 2018-03-01 Completed [facility] 00:00:00 [facility] Influenza High Dose 2018-03-01 Completed [facility] 00:00:00 [facility] Influenza High Dose 2018-03-01 Completed [facility] 00:00:00 [facility] Influenza High Dose 2018-03-01 Completed [facility] 00:00:00 [facility] Influenza High Dose 2018-03-01 Completed [facility] 00:00:00 [facility] Influenza High Dose 2018-03-01 Completed [facility] 00:00:00 [facility] Influenza High Dose 2018-03-01 Completed [facility] 00:00:00 [facility] Influenza High Dose 2018-03-01 Completed [facility] 00:00:00 [facility] Influenza High Dose 2018-03-01 Completed [facility] 00:00:00 [facility] Influenza High Dose 2018-03-01 Completed [facility] 00:00:00 [facility] Influenza High Dose 2018-03-01 Completed [facility] 00:00:00 [facility] Influenza High Dose 2018-03-01 Completed [facility] 00:00:00 [facility] Influenza High Dose 2018-03-01 Completed [facility] 00:00:00 [facility] Influenza High Dose 2018-03-01 Completed [facility] 00:00:00 [facility] Influenza High Dose 2018-03-01 Completed [facility] 00:00:00 [facility] Influenza High Dose 2018-03-01 Completed [facility] 00:00:00 [facility] Influenza High Dose 2018-03-01 Completed [facility] 00:00:00 [facility] Influenza High Dose 2018-03-01 Completed [facility] 00:00:00 [facility] Influenza High Dose 2018-03-01 Completed [facility] 00:00:00 [facility] Influenza High Dose 2018-03-01 Completed [facility] 00:00:00 [facility] Influenza High Dose 2018-03-01 Completed [facility] 00:00:00 [facility] Influenza High Dose 2018-03-01 Completed [facility] 00:00:00 [facility] Influenza High Dose 2018-03-01 Completed [facility] 00:00:00 [facility] Influenza High Dose 2018-03-01 Completed [facility] 00:00:00 [facility] Influenza High Dose 2018-03-01 Completed [facility] 00:00:00 [facility] Influenza High Dose 2018-03-01 Completed [facility] 00:00:00 [facility] Influenza High Dose 2018-03-01 Completed [facility] 00:00:00 [facility] Influenza High Dose 2018-03-01 Completed [facility] 00:00:00 [facility] Influenza High Dose 2018-03-01 Completed [facility] 00:00:00 [facility] Influenza High Dose 2018-03-01 Completed [facility] 00:00:00 [facility] Influenza High Dose 2018-03-01 Completed [facility] 00:00:00 [facility] Influenza High Dose 2018-03-01 Completed [facility] 00:00:00 [facility] Influenza High Dose 2018-03-01 Completed [facility] 00:00:00 [facility] Influenza High Dose 2018-03-01 Completed [facility] 00:00:00 [facility] Influenza High Dose 2018-03-01 Completed [facility] 00:00:00 [facility] Influenza Virus 2017-03-21 Completed [facility] Vaccine 00:00:00 [facility] Influenza Virus 2017-03-21 Completed [facility] Vaccine 00:00:00 [facility] Influenza Virus 2017-03-21 Completed [facility] Vaccine 00:00:00 [facility] Influenza Virus 2017-03-21 Completed [facility] Vaccine 00:00:00 [facility] Influenza Virus 2017-03-21 Completed [facility] Vaccine 00:00:00 [facility] Influenza Virus 2017-03-21 Completed [facility] Vaccine 00:00:00 [facility] Influenza Virus 2017-03-21 Completed [facility] Vaccine 00:00:00 [facility] Influenza Virus 2017-03-21 Completed [facility] Vaccine 00:00:00 [facility] Influenza Virus 2017-03-21 Completed [facility] Vaccine 00:00:00 [facility] Influenza Virus 2017-03-21 Completed [facility] Vaccine 00:00:00 [facility] Influenza Virus 2017-03-21 Completed [facility] Vaccine 00:00:00 [facility] Influenza Virus 2017-03-21 Completed [facility] Vaccine 00:00:00 [facility] Influenza Virus 2017-03-21 Completed [facility] Vaccine 00:00:00 [facility] Influenza Virus 2017-03-21 Completed [facility] Vaccine 00:00:00 [facility] Influenza Virus 2017-03-21 Completed [facility] Vaccine 00:00:00 [facility] Influenza Virus 2017-03-21 Completed [facility] Vaccine 00:00:00 [facility] Influenza Virus 2017-03-21 Completed [facility] Vaccine 00:00:00 [facility] Influenza Virus 2017-03-21 Completed [facility] Vaccine 00:00:00 [facility] Influenza Virus 2017-03-21 Completed [facility] Vaccine 00:00:00 [facility] Influenza Virus 2017-03-21 Completed [facility] Vaccine 00:00:00 [facility] Influenza Virus 2017-03-21 Completed [facility] Vaccine 00:00:00 [facility] Influenza Virus 2017-03-21 Completed [facility] Vaccine 00:00:00 [facility] Influenza Virus 2017-03-21 Completed [facility] Vaccine 00:00:00 [facility] Influenza Virus 2017-03-21 Completed [facility] Vaccine 00:00:00 [facility] Influenza Virus 2017-03-21 Completed [facility] Vaccine 00:00:00 [facility] Influenza Virus 2017-03-21 Completed [facility] Vaccine 00:00:00 [facility] Influenza Virus 2017-03-21 Completed [facility] Vaccine 00:00:00 [facility] Influenza Virus 2017-03-21 Completed [facility] Vaccine 00:00:00 [facility] Influenza Virus 2017-03-21 Completed [facility] Vaccine 00:00:00 [facility] Influenza Virus 2017-03-21 Completed [facility] Vaccine 00:00:00 [facility] Influenza Virus 2017-03-21 Completed [facility] Vaccine 00:00:00 [facility] Influenza Virus 2017-03-21 Completed [facility] Vaccine 00:00:00 [facility] Influenza Virus 2017-03-21 Completed [facility] Vaccine 00:00:00 [facility] Influenza Virus 2017-03-21 Completed [facility] Vaccine 00:00:00 [facility] Influenza Virus 2017-03-21 Completed [facility] Vaccine 00:00:00 [facility] Influenza Virus 2017-03-21 Completed [facility] Vaccine 00:00:00 [facility] Influenza Virus 2017-03-21 Completed [facility] Vaccine 00:00:00 [facility] Influenza Virus 2017-03-21 Completed [facility] Vaccine 00:00:00 [facility] Influenza Virus 2017-03-21 Completed [facility] Vaccine 00:00:00 [facility] Influenza Virus 2017-03-21 Completed [facility] Vaccine 00:00:00 [facility] Influenza Virus 2017-03-21 Completed [facility] Vaccine 00:00:00 [facility] Influenza Virus 2017-03-21 Completed [facility] Vaccine 00:00:00 [facility] Influenza Virus 2017-03-21 Completed [facility] Vaccine 00:00:00 [facility] Influenza Virus 2017-03-21 Completed [facility] Vaccine 00:00:00 [facility] Influenza Virus 2017-03-21 Completed [facility] Vaccine 00:00:00 [facility] Influenza Virus 2017-03-21 Completed [facility] Vaccine 00:00:00 [facility] Influenza Virus 2017-03-21 Completed [facility] Vaccine 00:00:00 [facility] Influenza Virus 2017-03-21 Completed [facility] Vaccine 00:00:00 [facility] Influenza Virus 2017-03-21 Completed [facility] Vaccine 00:00:00 [facility] Influenza Virus 2017-03-21 Completed [facility] Vaccine 00:00:00 [facility] Influenza Virus 2017-03-21 Completed [facility] Vaccine 00:00:00 [facility] Influenza Virus 2017-03-21 Completed [facility] Vaccine 00:00:00 [facility] Influenza Virus 2017-03-21 Completed [facility] Vaccine 00:00:00 [facility] Influenza Virus 2017-03-21 Completed [facility] Vaccine 00:00:00 [facility] Influenza Virus 2017-03-21 Completed [facility] Vaccine 00:00:00 [facility] Influenza Virus 2017-03-21 Completed [facility] Vaccine 00:00:00 [facility] Influenza Virus 2017-03-21 Completed [facility] Vaccine 00:00:00 [facility] Influenza Virus 2017-03-21 Completed [facility] Vaccine 00:00:00 [facility] Influenza Virus 2017-03-21 Completed [facility] Vaccine 00:00:00 [facility] Influenza Virus 2017-03-21 Completed [facility] Vaccine 00:00:00 [facility] Influenza Virus 2017-03-21 Completed [facility] Vaccine 00:00:00 [facility] Influenza Virus 2017-03-21 Completed [facility] Vaccine 00:00:00 [facility] Influenza Virus 2017-03-21 Completed [facility] Vaccine 00:00:00 [facility] Influenza Virus 2017-03-21 Completed [facility] Vaccine 00:00:00 [facility] Influenza Virus 2017-03-21 Completed [facility] Vaccine 00:00:00 [facility] Influenza Virus 2017-03-21 Completed [facility] Vaccine 00:00:00 [facility] Influenza Virus 2017-03-21 Completed [facility] Vaccine 00:00:00 [facility] Influenza Virus 2017-03-21 Completed [facility] Vaccine 00:00:00 [facility] Influenza Virus 2017-03-21 Completed [facility] Vaccine 00:00:00 [facility] Influenza Virus 2017-03-21 Completed [facility] Vaccine 00:00:00 [facility] Influenza Virus 2017-03-21 Completed [facility] Vaccine 00:00:00 [facility] Influenza Virus 2017-03-21 Completed [facility] Vaccine 00[facility]00:00 [facility] TDAP 2015-10-03 Completed [facility] 00:00:00 [facility] TDAP 2015-10-03 Completed [facility] 00:00:00 [facility] TDAP 2015-10-03 Completed [facility] 00:00:00 [facility] TDAP 2015-10-03 Completed [facility] 00:00:00 [facility] TDAP 2015-10-03 Completed [facility] 00:00:00 [facility] TDAP 2015-10-03 Completed [facility] 00:00:00 [facility] TDAP 2015-10-03 Completed [facility] 00:00:00 [facility] TDAP 2015-10-03 Completed [facility] 00:00:00 [facility] TDAP 2015-10-03 Completed [facility] 00:00:00 [facility] TDAP 2015-10-03 Completed [facility] 00:00:00 [facility] TDAP 2015-10-03 Completed [facility] 00:00:00 [facility] TDAP 2015-10-03 Completed [facility] 00:00:00 [facility] TDAP 2015-10-03 Completed [facility] 00:00:00 [facility] TDAP 2015-10-03 Completed [facility] 00:00:00 [facility] TDAP 2015-10-03 Completed [facility] 00:00:00 [facility] TDAP 2015-10-03 Completed [facility] 00:00:00 [facility] TDAP 2015-10-03 Completed [facility] 00:00:00 [facility] TDAP 2015-10-03 Completed [facility] 00:00:00 [facility] TDAP 2015-10-03 Completed [facility] 00:00:00 [facility] TDAP 2015-10-03 Completed [facility] 00:00:00 [facility] TDAP 2015-10-03 Completed [facility] 00:00:00 [facility] TDAP 2015-10-03 Completed [facility] 00:00:00 [facility] TDAP 2015-10-03 Completed [facility] of 00:00:00 [facility] TDAP 2015-10-03 Completed [facility] of 00:00:00 [facility] TDAP 2015-10-03 Completed University of 00:00:00 [facility] TDAP 2015-10-03 Completed University of 00:00:00 [facility] TDAP 2015-10-03 Completed University of 00:00:00 [facility] TDAP 2015-10-03 Completed University of 00:00:00 [facility] TDAP 2015-10-03 Completed University of 00:00:00 [facility] TDAP 2015-10-03 Completed University of 00:00:00 [facility] TDAP 2015-10-03 Completed University of 00:00:00 [facility] TDAP 2015-10-03 Completed University of 00:00:00 [facility] TDAP 2015-10-03 Completed University of 00:00:00 [facility] TDAP 2015-10-03 Completed University of 00:00:00 [facility] TDAP 2015-10-03 Completed University of 00:00:00 [facility] TDAP 2015-10-03 Completed University of 00:00:00 [facility] TDAP 2015-10-03 Completed University of 00:00:00 [facility] TDAP 2015-10-03 Completed University of 00:00:00 [facility] TDAP 2015-10-03 Completed University of 00:00:00 [facility] TDAP 2015-10-03 Completed University of 00:00:00 [facility] TDAP 2015-10-03 Completed University of 00:00:00 [facility] TDAP 2015-10-03 Completed University of 00:00:00 [facility] TDAP 2015-10-03 Completed University of 00:00:00 [facility] TDAP 2015-10-03 Completed University of 00:00:00 [facility] TDAP 2015-10-03 Completed University of 00:00:00 [facility] TDAP 2015-10-03 Completed University of 00:00:00 [facility] TDAP 2015-10-03 Completed University of 00:00:00 [facility] TDAP 2015-10-03 Completed University of 00:00:00 [facility] TDAP 2015-10-03 Completed University of 00:00:00 [facility] TDAP 2015-10-03 Completed [facility] of 00:00:00 [facility] TDAP 2015-10-03 Completed University of 00:00:00 [facility] TDAP 2015-10-03 Completed University of 00:00:00 [facility] TDAP 2015-10-03 Completed University of 00:00:00 [facility] TDAP 2015-10-03 Completed University of 00:00:00 [facility] TDAP 2015-10-03 Completed University of 00:00:00 [facility] TDAP 2015-10-03 Completed University of 00:00:00 [facility] TDAP 2015-10-03 Completed University of 00:00:00 [facility] TDAP 2015-10-03 Completed University of 00:00:00 [facility] TDAP 2015-10-03 Completed University of 00:00:00 [facility] TDAP 2015-10-03 Completed University of 00:00:00 [facility] TDAP 2015-10-03 Completed University of 00:00:00 [facility] TDAP 2015-10-03 Completed University of 00:00:00 [facility] TDAP 2015-10-03 Completed University of 00:00:00 [facility] TDAP 2015-10-03 Completed University of 00:00:00 [facility] TDAP 2015-10-03 Completed University of 00:00:00 [facility] TDAP 2015-10-03 Completed University of 00:00:00 [facility] TDAP 2015-10-03 Completed University of 00:00:00 [facility] TDAP 2015-10-03 Completed University of 00:00:00 [facility] TDAP 2015-10-03 Completed University of 00:00:00 [facility] TDAP 2015-10-03 Completed University of 00:00:00 [facility] TDAP 2015-10-03 Completed University of 00:00:00 [facility] TDAP 2015-10-03 Completed University of 00:00:00 [facility] Pneumococcal 13 2012-12-07 Completed Universit y of [...] 2012-07-26 Completed University o f Polysaccharide, 00:00:00 [place] [facility] PPSV23 (PNEUMOVAX) Branch Vital Signs Vital Name Observation Time Observation Value Comments Source Systolic blood 2023-02-08 20:42:00 142 mm[Hg] Univer sity [facility] Diastolic blood 2023-02-08 20:42:00 93 mm[facility]Hg[facility] 2023-02-08 20:42:00 78 /min [facility] Body temperature 2023-02-08 20:42:00 36.5 Felicia [facility] Respiratory rate 2023-02-08 20:42:00 16 /min [facility] Body height 2023-02-08 20:42:00 177.8 cm [facility] Body weight 2023-02-08 20:42:00 86.183 kg [facility] BMI 2023-02-08 20:42:00 27.26 kg/m2 [facility] Oxygen saturation in 2023-02-08 20:42:00 99 /min University of Arterial blood by [facility] monika Pulse oximetry Branch Systolic blood 2023-01-29 20:54:00 132 mm[Hg] Univer sity of pressure [facility] Diastolic blood 2023-01-29 20:54:00 76 mm[Hg] Unive rsity of pressure [facility] Heart rate 2023-01-29 20:54:00 78 /min Universi ty of [facility] Respiratory rate 2023-01-29 20:54:00 18 /min Univ ersity of [facility] Body height 2023-01-29 20:54:00 177.8 cm Universi ty [facility] Body weight 2023-01-29 20:54:00 86.501 kg [facility]i [facility] BMI 2023-01-29 20:54:00 27.36 kg/m2 [facility] Oxygen saturation in 2023-01-29 20:54:00 98 /min University of Arterial blood by [facility] Pulse oximetry Branch Systolic blood 2023-01-05 18:43:00 135 mm[Hg] Univer sity of pressure [facility] Diastolic blood 2023-01-05 18:43:00 79 mm[Hg] Unive rsity of pressure [facility] Heart rate 2023-01-05 18:43:00 77 /min Universi ty [facility] Body height 2023-01-05 18:43:00 177.8 cm [facility]i [facility] Body weight 2023-01-05 18:43:00 85.684 kg [facility]i [facility] BMI 2023-01-05 18:43:00 27.10 kg/m2 [facility] Oxygen saturation in 2023-01-05 18:43:00 96 /min University of Arterial blood by [facility] Pulse oximetry Branch Systolic blood 2022-12-26 16:50:00 111 mm[Hg] Univer sity of pressure [facility] Diastolic blood 2022-12-26 16:50:00 63 mm[Hg] Unive rsity of pressure [facility] Heart rate 2022-12-26 16:50:00 89 /min [facility]i ty [facility] Body temperature 2022-12-26 16:50:00 36.61 Felicia Univ ersity of [facility] Respiratory rate 2022-12-26 16:50:00 17 /min Univ ersity of [facility] Body weight 2022-12-26 16:50:00 84.687 kg [facility]i [facility] BMI 2022-12-26 16:50:00 26.79 kg/m2 [facility] Oxygen saturation in 2022-12-26 16:50:00 99 /min [facility] Arterial blood by [place] [facility] Pulse oximetry Branch Systolic blood 2022-11-26 20:06:00 137 mm[Hg] Univer sity of pressure [facility] Diastolic blood 2022-11-26 20:06:00 89 mm[Hg] Unive rsity of pressure [facility] Heart rate 2022-11-26 20:06:00 88 /min Universi ty of [facility] Body height 2022-11-26 20:06:00 177.8 cm [facility] Body weight 2022-11-26 20:06:00 84.777 kg [facility]i [facility] BMI 2022-11-26 20:06:00 26.82 kg/m2 [facility] Oxygen saturation in 2022-11-26 20:06:00 96 /min University of Arterial blood by [facility] monika Pulse oximetry Branch Systolic blood 2022-09-17 15:58:00 129 mm[Hg] Univer sity of pressure [facility] Diastolic blood 2022-09-17 15:58:00 69 mm[Hg] Unive rsity of pressure [facility] Heart rate 2022-09-17 15:58:00 84 /min [facility]i ty [facility] Body height 2022-09-17 15:58:00 177.8 cm [facility] Body weight 2022-09-17 15:58:00 85.186 kg [facility] BMI 2022-09-17 15:58:00 26.95 kg/m2 [facility] Oxygen saturation in 2022-09-17 15:58:00 95 /min [facility]ial blood by [place] [facility] P[facility] oxim[facility] Systolic blood 2022-07-27 17:40:00 120 mm[Hg] Univer sity of pressure [facility] Diastolic blood 2022-07-27 17:40:00 71 mm[Hg] Unive rsity of pressure [facility] Heart rate 2022-07-27 17:40:00 83 /min Universi ty [facility] Respiratory rate 2022-07-27 17:40:00 19 /min Univ ersity of [facility] Oxygen saturation in 2022-07-27 17:40:00 97 /min [facility]ial blood by [place] [facility] Body temperature 2022-07-27 14:43:00 37.61 Felicia Univ ersity of [facility] Body weight 2022-07-27 14:43:00 83.915 kg [facility]i ty [facility] BMI 2022-07-27 14:43:00 26.54 kg/m2 [facility] Systolic blood 2022-06-18 17:46:00 148 mm[Hg] Univer sity of pressure [facility] Diastolic blood 2022-06-18 17:46:00 60 mm[Hg] Unive rsity of pressure [facility] Respiratory rate 2022-06-18 17:46:00 20 /min Univ ersity of [facility] Oxygen saturation in 2022-06-18 17:46:00 98 /min University of Arterial blood by [place] [facility] P[facility] oxim[facility] Body weight 2022-06-18 13:00:00 83.915 kg [facility]i ty [facility] BMI 2022-06-18 13:00:00 26.54 kg/m2 [facility] Systolic blood 2022-06-18 16:55:00 121 mm[Hg] Univer sity of pressure [facility] Diastolic blood 2022-06-18 16:55:00 58 mm[Hg] Unive rsity of pressure [facility] Respiratory rate 2022-06-18 16:55:00 16 /min Univ ersity of [facility] Oxygen saturation in 2022-06-18 16:55:00 98 /min [facility]terial blood by [place] [facility] P[facility] oxim[facility] Body weight 2022-06-18 13:00:00 83.915 kg [facility]i ty [facility] BMI 2022-06-18 13:00:00 26.54 kg/m2 [facility] Systolic blood 2022-06-01 16:58:00 126 mm[Hg] Univer sity of pressure [facility] Diastolic blood 2022-06-01 16:58:00 99 mm[Hg] Unive rsity of pressure [facility] Heart rate 2022-06-01 16:58:00 71 /min [facility]i ty [facility] Body temperature 2022-06-01 16:58:00 36.78 Felicia Univ ersity of [facility] Respiratory rate 2022-06-01 16:58:00 20 /min Univ ersity of [facility] Body weight 2022-06-01 16:58:00 83.915 kg [facility]i ty [facility] BMI 2022-06-01 16:58:00 26.54 kg/m2 [facility] Oxygen saturation in 2022-06-01 16:58:00 99 /min University of Arterial blood by [facility] Pulse oximetry Branch Systolic blood 2022-05-19 22:18:00 129 mm[Hg] Univer sity of pressure [facility] Diastolic blood 2022-05-19 22:18:00 74 mm[Hg] Unive rsity of pressure [facility] Heart rate 2022-05-19 22:18:00 76 /min [facility] Body temperature 2022-05-19 22:18:00 36.89 Felicia Univ ersity [facility] Respiratory rate 2022-05-19 22:18:00 18 /min Univ ersity of [facility] Body height 2022-05-19 22:18:00 177.8 cm [facility] Body weight 2022-05-19 22:18:00 84.732 kg [facility] BMI 2022-05-19 22:18:00 26.80 kg/m2 [facility] Oxygen saturation in 2022-05-19 22:18:00 98 /min University of Arterial blood by [facility] Pulse oximetry Branch Systolic blood 2022-03-30 18:13:00 135 mm[Hg] Univer sity of pressure [facility] Diastolic blood 2022-03-30 18:13:00 67 mm[Hg] Unive rsity of pressure [facility] Heart rate 2022-03-30 18:11:00 66 /min [facility] Body temperature 2022-03-30 18:11:00 36.56 Felicia Univ ers[facility] Respiratory rate 2022-03-30 18:11:00 18 /min Univ ersity of [facility] Body height 2022-03-30 18:11:00 177.8 cm [facility] Body weight 2022-03-30 18:11:00 86.818 kg [facility] BMI 2022-03-30 18:11:00 27.46 kg/m2 [facility] Oxygen saturation in 2022-03-30 18:11:00 98 /min University of Arterial blood by [facility] Pulse oximetry Branch Body weight 2022-03-18 15:50:00 86.682 kg [facility] BMI 2022-03-18 15:50:00 27.42 kg/m2 [facility] Body weight 2022-02-25 19:14:00 85.276 kg [facility] BMI 2022-02-25 19:14:00 26.98 kg/m2 [facility] Systolic blood 2022-02-02 13:30:00 132 mm[Hg] Univer sity of pressure [facility] Diastolic blood 2022-02-02 13:30:00 80 mm[Hg] Unive rsity of pressure [facility] Heart rate 2022-02-02 13:30:00 60 /min [facility] Respiratory rate 2022-02-02 13:30:00 16 /min Univ ersity of [facility] Body height 2022-02-02 13:30:00 177.8 cm [facility] Body weight 2022-02-02 13:30:00 85.73 kg [facility] BMI 2022-02-02 13:30:00 27.12 kg/m2 [facility] Oxygen saturation in 2022-02-02 13:30:00 99 /min University of Arterial blood by [facility] Pulse oximetry Branch Systolic blood 2021-10-29 21:34:00 139 mm[Hg] Univer sity of pressure [facility] Diastolic blood 2021-10-29 21:34:00 76 mm[Hg] Unive rsity of pressure [facility] Heart rate 2021-10-29 21:34:00 66 /min [facility] Respiratory rate 2021-10-29 21:34:00 18 /min [facility] Body height 2021-10-29 21:34:00 177.8 cm [facility] Body weight 2021-10-29 21:34:00 86.909 kg [facility] BMI 2021-10-29 21:34:00 27.49 kg/m2 [facility] Oxygen saturation in 2021-10-29 21:34:00 98 /min [facility] Arterial blood by [facility] Pulse oximetry Branch Procedures Procedure Date / Time Performing Clinician Source Performed ASSIGNMENT OF BENEFITS 2023-02-08 21:46:25 Doctor Unassigned, [facility] Name [facility] URINALYSIS 2023-02-08 21:15:00 [facility] COMP. METABOLIC PANEL 2023-02-08 21:05:00 Singer [facility] ([id number]) [facility] CBC WITH DIFF 2023-02-08 21:05:00 [facility] CONSENT/REFUSAL FOR 2023-02-08 20:36:35 Doctor Unassigned, [facility] DIAGNOSIS AND TREATMENT [place] [facility] POCT HEMOGLOBIN A1C TEST 2023-01-29 21:21:00 Evelin Colmenares [facility] COMP. METABOLIC PANEL 2022-12-04 17:04:00 Evelin Colmenares [facility] ([id number]) [facility] PROSTATIC SPECIFIC ANTIGEN 2022-12-04 17:04:00 Franklyn Bañuelos [facility] GLYCOSYLATED HEMOGLOBIN 2022-12-04 17:04:00 Evelin Colmenares [facility] (A1C) [facility] URINE CULTURE 2022-12-04 17:04:00 Sarmad [facility] AUTHORIZATION FOR RELEASE 2022-10-23 05:01:00 Doctor Unassigned, [facility] [place] COMP. METABOLIC PANEL 2022-09-18 15:14:00 Evelin Colmenares [facility] ([id number]) [facility] CBC WITH DIFF 2022-09-18 15:14:00 Evelin Colmenares [facility] ASSIGNMENT OF BENEFITS 2022-09-17 15:40:48 Doctor Vidhi [facility] [place] [facility] EXTERNAL PROVIDER RECORDS 2022-08-05 06:01:00 Doctor Vidhi [facility] [place] [facility] [place] XR CHEST 1 VW 2022-07-27 16:06:27 Javier Morris [facility] COMP. METABOLIC PANEL 2022-07-27 15:23:00 Javier Morris [facility] ([id number]) [facility] [place] CBC WITH DIFF 2022-07-27 15:23:00 Javier Morris [facility] RAPID INFLUENZA A/B 2022-07-27 15:23:00 Javier Morris [facility] COVID-19 (ID NOW RAPID 2022-07-27 15:23:00 Javier Morris [facility] TESTING) Medical Branch CONSENT/REFUSAL FOR 2022-07-27 14:40:28 Doctor Vidhi [facility] DIAGNOSIS AND TREATMENT [place] [facility] [place] CARDIAC CATHETERIZATION 2022-06-18 15:56:36 Kamran Hua [facility] CARDIAC CATHETERIZATION 2022-06-18 15:56:36 Kamran Hua [facility] CARDIAC CATHETERIZATION 2022-06-18 15:56:36 Kamran Hua [facility] CARDIAC CATHETERIZATION 2022-06-18 15:56:36 Kamran Hua [facility] OUTPATIENT CARDIAC 2022-06-18 06:01:00 Doctor Vidhi [facility] CATHETERIZATION DOCUMENTS [place] [facility] CONSENT/REFUSAL FOR 2022-06-01 16:39:57 Doctor Vidhi [facility] DIAGNOSIS AND TREATMENT [place] [facility] [place] POCT SARS-COV-2 ANTIGEN 2022-05-19 22:24:00 Haley Camejo [facility] (BINAX NOW) Medical Branch EXTERNAL PROVIDER RECORDS 2022-04-08 05:01:00 Doctor Vidhi [facility] [place] [facility] [place] POCT URINALYSIS AUTO 2022-03-30 18:15:00 Franklyn Bañuelos [facility] DISCLOSURE AND CONSENT, 2022-03-30 05:01:00 Doctor Unassigned, [facility] MEDICAL AND SURGICAL [place] [facility] [place] PROCEDURES POCT URINALYSIS AUTO 2022-02-02 13:33:00 Franklyn Bañuelos [facility] HB ECG ROUTINE & RHYTHM 2021-10-29 21:44:44 Kamran Hua [facility] Encounters Start End Encounter Admission Attending Care Care Encounter Source Date/Time Date/Time Type Type Clinicians Facility Department ID 2022-10-13 [id number] Univers 11:41:41 [facility] 2021-11-24 [facility] [id number] Univers 16:22:05 [facility] 2021-04-20 [facility] DAR[facility] [id number] Univers 22:34:37 MARY [facility] 2021-04-20 Emergency [facility] [id number] Univers 20:43:42 [facility] 2023-03-22 2023-03-22 Outpatient R DEDRA [facility] [id number] Univers 10:30:00 10:30:00 EVELIN [facility] 2023-03-15 2023-03-15 Outpatient R MEET LUDWIG [facility] [id number] Univers 11:30:00 11:30:00 MEET LUDWIG [facility] 2023-02-15 2023-02-15 Outpatient R DEDRA [facility] [id number] Univers 09:30:00 09:30:00 EVELIN [facility] 2023-02-08 2023-02-08 Emergency X [facility] ERT [id number] Univers 15:43:00 17:11:00 ALCON bonnie [facility] 2023-02-08 2023-02-08 Emergency [facility] [id number] Univers 15:43:00 17:11:00 Alcon OTOOLE [id number] i ty of [id number] [id number] [facility] 084 Branch 2023-01-29 2023-01-29 [facility] [id number] Univers 16:30:00 17:05:30 EVELIN tafoya [facility] 2023-01-29 2023-01-29 Office [facility] [id number] Univers 16:30:00 17:05:30 Visit [facility] [id number] it y of [place] [id number] Luis Armando as EMEROSN?BLEA [phone] [address] MEDICAL OFFICE [facility] 2023-01-20 2023-01-20 Telephone Sarmad [facility] [id number] Univers 00:00:00 00:00:00 Franklyn BABIN [id number] it y of [facility] [id number] [place] [facility] [phone] [facility] 188 Branch 2023-01-05 2023-01-05 Outpatient R DEDRA [facility] [id number] Univers 13:30:00 14:27:23 EVELIN tafoya [facility] 2023-01-05 2023-01-05 [facility] [id number] Univers 13:30:00 14:27:23 Visit [facility] [id number] it y of [place] [id number] Luis Armando as EMERSON?BLEA [phone] [address] MEDICAL OFFICE [facility] 2022-12-26 2022-12-26 Outpatient R VIKAS [facility] [id number] Univers 11:40:00 11:59:22 REENU itbonnie [facility] 2022-12-26 2022-12-[address] [facility] [id number] Univers 11:40:00 11:59:22 Care Unknown, Attending HEALTH [id number] ity of [place] [id number] Luis Armando as EMERSON?BLEA [phone] Az camila MEDINA [address] [facility] OFFICE [facility] 2022-12-23 2022-12-23 Telephone [facility] [id number] Univers 00:00:00 00:00:00 Evelin HEALTH [id number] it y of [place] [id number] Luis Armando as EMERSON?BLEA [phone] Az camila MEDINA 044 [facility] OFFICE [facility] 2022-12-10 2022-12-10 Telephone [facility] [id number] Univers 00:00:00 00:00:00 Evelin HEALTH [id number] it y of [place] [id number] Luis Armando as EMERSON?BLEA [phone] Az camila [address] OFFICE [facility] 2022-12-04 2022-12-04 [facility] [id number] Univers 12:15:00 12:15:00 EVELIN bonnie [facility] 2022-12-04 2022-12-04 [facility], Ang - [facility] [id number] Univers 12:15:00 12:15:00 Visit BethanyyangFaribaEvelin [facility] [id number] ity of [place] [id number] Luis Armando as EMERSON?BLEA [phone] Az camila BYRNE [address] [facility] 2022-12-03 2022-12-03 Telephone [facility] [id number] Univers 00:00:00 00:00:00 Evelin HEALTH [id number] it y of [place] [id number] Luis Armando as EMERSON?BLEA [phone] Az camila BYRNE [address] [facility] 2022-11-26 2022-11-26 [facility] [id number] Univers 15:00:00 16:06:01 EVELIN bonnie [facility] 2022-11-26 2022-11-26 [facility] [id number] Univers 15:00:00 16:06:01 Visit Evelin HEALTH [id number] it y of [place] [id number] Luis Armando as EMERSON?BLEA [id number] [address] MEDICAL OFFICE [facility] 2022-11-19 2022-11-19 Jorge [facility] [id number] Univers 00:00:00 00:00:00 Evelin HEALTH [id number] it y of [place] [id number] Luis Armando as EMERSON?BLEA [id number] [address] OFFICE [facility] 2022-10-26 2022-10-26 Outpatient R MELITA [facility] [id number] Univers 11:00:00 11:00:00 SENDIL ity [facility] 2022-10-23 2022-10-23 Orders Doctor LIBORIO [id number] Univers 00:00:00 00:00:00 Only Unassigned, SONIDO [id number] ity [place] [facility] [id number] Luis Armando as [phone] [address] 2022-10-13 2022-10-13 Telephone [facility] [id number] Univers 00:00:00 00:00:00 [facility] [id number] it [id number] - [id number] Med ica[address] 2022-10-05 2022-10-05 Telephone [facility] [id number] Univers 00:00:00 00:00:00 Franklyn [place] [id number] i ty [id number] [id number] [facility] 204 [facility] 2022-09-29 2022-09-29 Outpatient [facility] [id number] Univers 11:15:00 11:59:23 FRANKLYN [facility] 2022-09-24 Telephone [facility] 1.2.367.387 [id number] Univers 00:00:00 00:00:00 Evelin HEALTH 350.1.13.10 it y of [place] 4.2.7.2.686 Luis Armando as EMERSON?BLEA [phone] [facility] [address] MEDICAL OFFICE [facility] 2022-09-18 2022-09-18 [facility], Ang - Db [facility] 1.2.840.1 14 [id number] Univers 10:00:00 10:28:03 Visit Evelin Colmenares 350.1.13.10 ity of [place] 4.2.7.2.686 Luis Armando as EMERSON?BLEA [phone] [facility] [address] [facility] OFFICE [facility] 2022-09-18 2022-09-18 [facility] [id number] Univers 10:00:00 10:00:00 EVELIN ity of [facility] 2022-09-18 2022-09-18 Pre Visit LIBORIO Horna 1.2.566.009 [id number] Univers 00:00:00 00:00:00 Outreach Jayden Guallpa SONIDO 350.1.13.10 ity of HOSPITAL 4.2.7.2.686 Luis Armando as [phone] [address] 2022-09-17 2022-09-17 Out[facility] [id number] Univers 11:00:00 11:31:02 EVELIN ity of [facility] 2022-09-17 2022-09-17 Office [facility]yangCIBOL[facility] 1.2.840.114 [id number] Univers 11:00:00 11:31:02 Visit Evelin JOAQUIN 350.1.13.10 it y of [place] 4.2.7.2.686 Luis Armando as EMERSON?BLEA [phone] [address] OFFICE [facility] 2022-09-17 2022-09-17 Orders Doctor CAPONE 1.2.840.114 [id number] Univers 00:00:00 00:00:00 Only Unassigned, SONIDO 350.1.13.10 ity of [place] [facility] 4.2.7.2.686 Luis Armando as [phone] [address] 2022-09-17 2022-09-17 Jorge Sc[facility]CIBOLA [facility] 1.2.840.114 [id number] Univers 00:00:00 00:00:00 Keon HEALTH 350.1.13.10 it y of [place] 4.2.7.2.686 Luis Armando as EMERSON?BLEA [phone] [address] OFFICE [facility] 2022-09-15 2022-09-15 Jorge [facility]CIBOL[facility] 1.2.840.114 [id number] Univers 00:00:00 00:00:00 Evelin HEALTH 350.1.13.10 it y of [place] 4.2.7.2.686 Luis Armando as EMERSON?BLEA [phone] [address] 2022-09-14 2022-09-14 [facility] 1.2.840.114 [id number] Univers 00:00:00 00:00:00 Evelin HEALTH 350.1.13.10 it y of [place] 4.2.7.2.686 Luis Armando as EMERSON?BLEA [phone] [address] 2022-08-10 2022-08-10 Outpatient Serjio COLMENARES [facility] [id number] Univers 13:00:00 13:00:00 EVELIN tafoya [facility] 2022-08-05 2022-08-05 Orders Doctor CAPONE 1.2.840.114 [id number] Univers 00:00:00 00:00:00 Only Unassigned, SONIDO 350.1.13.10 ity of [place] [facility] 4.2.7.2.686 Luis Armando as [phone] [address] 2022-07-27 2022-07-27 Outpatient Serjio COLMENARES [facility] [id number] Univers 13:30:00 13:30:00 EVELIN tafoya [facility] 2022-07-27 2022-07-[address] [facility] ERT [id number] Univers 08:49:00 12:38:00 JAVIER tafoya [facility] 2022-07-27 2022-07-27 Emergency [facility]CIBOL[facility] 1.2.115.883 [id number] Univers 08:49:00 12:38:00 Javier S SYDNIE 350.1.13.10 i ty of [place]2.7.2.[place] [phone] [facility] [address] 2022-07-13 2022-07-13 Telephone [facility] 1.2.560.726 [id number] Univers 00:00:00 00:00:00 Evelin HEALTH 350.1.13.10 it y of [place] 4.2.7.2.686 Luis Armando as EMERSON?BLEA [phone] [address] OFFICE [facility] 2022-07-09 2022-07-09 Telephone [facility] 1.2.531.407 [id number] Univers 00:00:00 00:00:00 Evelin HEALTH 350.1.13.10 it y of [place] 4.2.7.2.686 Luis Armando as EMERSON?BLEA [phone] [address] OFFICE [facility] 2022-06-22 2022-06-22 [facility] 1.2.847.304 [id number] Univers 00:00:00 00:00:00 Sendteodoro OTOOLE 350.1.13.10 ity [facility] [place].2.7.2.[place] [facility] [phone] [facility] 059 [facility] 2022-06-18 2022-06-18 Outpatient R MELITA CAANA CCA [id number] Univers 06:26:00 12:25:00 SENDIL ity of [facility] 2022-06-18 2022-06-18 Hospital EFREM Hua 1..840.114 [id number] Univers 06:26:00 12:25:00 Encounter Kamran HEAD 350.1.13.10 ity of [facility] 4.2.7.2.686 Luis Armando as [phone] [facility] [address] 2022-06-18 2022-06-18 Surgery EFREM Christine 1.2.840.114 [id number] Univers 10:00:00 11:00:00 Kenn HEAD 350.1.13.10 it y of [facility] 4.2.7.2.686 Luis Armando as [phone] [facility] [address] 2022-06-18 2022-06-[address] [facility] 1.2.753.927 [id number] Univers 00:00:00 00:00:00 Evelinsamm JOAQUIN 350.1.13.10 it y of [place] 4.2.7.2.686 Luis Armando as EMERSON?BLEA [phone] Az dical KNEY [address] MEDICAL OFFICE BUILDING 2022-06-18 2022-06-18 Orders Doctor LIBORIO 1.2.840.114 [id number] Univers 00:00:00 00:00:00 Only Unassigned, SONIDO 350.1.13.10 ity of [place] [facility] 4.2.7.2.686 Luis Armando as [phone] [facility] [address] 2022-06-16 2022-06-16 [employer] Rocael, Adc Lab Main [facility] 1.2.8 40.114 [id number] Univers 11:45:00 12:00:00 Visit Kamran Hua 350.1.13. 10 ity of [facility] 4.2.7.2.686 [place] DAM[place] [phone] [facility] [address] BUILDING 2022-06-16 2022-06-16 Outpatient [facility] [id number] Univers 11:45:00 11:45:00 SENDIL ity [facility] 2022-06-16 2022-06-16 Outpatient R [facility] [id number] Univers 08:00:00 08:00:00 ity [facility] 2022-06-01 2022-06-01 Emergency [facility] ERT [id number] Univers 11:00:00 11:25:00 FADUMO ity [facility] 2022-06-01 2022-06-01 Emergency N[facility]IB[facility] 1.2.369.217 [id number] Univers 11:00:00 11:25:00 Fadumo OTOOLE 350.1.13.10 ity of [facility] 4.2.7.2.686 [place] [phone] [facility] [address] 2022-05-20 2022-05-20 Outpatient R [facility] [id number] Univers 11:00:00 11:00:00 ity of [facility] 2022-05-19 2022-05-19 Outpatient R BASHIR [facility] [id number] Univers 16:20:00 16:38:33 HALEY ity of [facility] 2022-05-19 2022-05-19 Urgent Bashir [facility] 1.2.840.114 [id number] Univers 16:20:00 16:38:33 Care Unknown, Attending HEALTH 350.1.13.10 ity of [place] 4.2.7.2.686 Luis Ramando as EMERSON?BLEA [phone] [facility] [address] MEDICAL OFFICE BUILDING 2022-05-08 2022-05-08 Telephone EFREM Hua 1.2.004.534 [id number] Univers 00:00:00 00:00:00 Kamran HEAD 350.1.13.10 ity of [facility] 4.2.7.2.686 Luis Armando as [phone] [facility] [address] 2022-04-29 2022-04-29 Telephone Melita CAANA 1.2.287.216 [id number] Univers 00:00:00 00:00:00 Kamran OTOOLE 350.1.13.10 ity of [place].2.7.2.686 [place] [facility] [phone] [facility] [address] BUILDING 2022-04-27 2022-04-27 Telephone EFREM Hua 1.2.225.895 [id number] Univers 00:00:00 00:00:00 Kamran HEAD 350.1.13.10 ity of [facility] 4.2.7.2.686 Luis Armando as [phone] [facility] [address] 2022-04-18 2022-04-[address] [facility] 1.2.840.114 [id number] Univers 00:00:00 00:00:00 Wondiful A HEALTH 350.1.13.10 ity of [facility] 4.2.7.2.686 Luis Armando as EMERSON?BLEA [phone] [facility] [address] MEDICAL OFFICE BUILDING 2022-04-08 2022-04-08 Orders Doctor LIBORIO 1.2.840.114 [id number] Univers 00:00:00 00:00:00 Only Unassigned, SONIDO 350.1.13.10 ity of [place] [facility] 4.2.7.2.686 Luis Armando as [phone] [address] 2022-03-30 2022-03-30 Office [facility] 1.2.840.114 [id number] Univers 13:00:00 14:03:44 Visit , [facility] Surg Spec Procedure [place] 3 50.1.13.10 ity of [facility] 4.2.7.2.686 [place] PROFESS[place] [phone] [address] 2022-03-30 2022-03-30 Outpatient R SARMAD [facility] [id number] Univers 13:00:00 14:03:44 [facility] 2022-03-30 2022-03-30 Orders Doctor LIBORIO 1.2.840.114 [id number] Univers 00:00:00 00:00:00 Only Unassigned, SONIDO 350.1.13.10 ity of [place] [facility] 4.2.7.2.686 Luis Armando as [phone] [address] 2022-03-26 2022-03-26 Refill [facility] 1.2.840.114 [id number] Univers 00:00:00 00:00:00 [facility] 350.1.13.10 i ty of [facility] 4.2.7.2.686 [place] [phone] [address] 2022-03-18 2022-03-18 Nurse Nurse, [facility] Surgery Critical access hospital 1.2. 840.114 [id number] Univers 10:00:00 10:36:16 Visit Franklyn Bañuelos 350.1.13.10 ity of [facility] 4.2.7.2.686 [place] [phone] [facility] 204 [facility] 2022-03-18 2022-03-18 Outpatient R SARMAD [facility] [id number] Univers 10:00:00 10:00:00 FRANKLYN ity [facility] 2022-03-09 2022-03-09 Outpatient [facility] [id number] Univers 14:00:00 14:00:00 FRANKLYN ity [facility] 2022-03-03 2022-03-03 Jorge [facility] 1.2.840.114 [id number] Univers 00:00:00 00:00:00 [facility] 350.1.13.10 it y of [place] 4.2.7.2.686 Luis Armando as EMERSON?BLEA [phone] [address] MEDICAL OFFICE [facility] 2022-02-25 2022-02-25 Nurse Nurse, [facility] Surgery Critical access hospital 1.2. 840.114 [id number] Univers 13:15:00 13:15:00 Visit Franklyn Bañuelos [place] 350.1.13.10 ity [facility] 4.2.7.2.[place] [phone] [address] 2022-02-25 2022-02-25 Outpatient [facility] [id number] Univers 13:15:00 13:02:27 FRANKLYN ity [facility] 2022-02-02 2022-02-02 Outpatient R [facility] [id number] Univers 08:15:00 09:02:46 FRANKLYN ity [facility] 2022-02-02 2022-02-02 [facility] 1.2.840.114 [id number] Univers 08:15:00 09:02:46 Visit [facility] 350.1.13.10 i ty of [place] 4.2.7.2.686 [place] [phone] [address] 2022-01-29 2022-01-29 Outpatient R [facility] [id number] Univers 11:45:00 11:45:00 FRANKLYN ity of [facility] 2022-01-22 2022-01-22 Refuc [facility] 1.2.840.114 [id number] Univers 00:00:00 00:00:00 Wondiful A HEALTH 350.1.13.10 ity of [place] 4.2.7.2.686 Luis Armando as EMERSON?BLEA [phone] [address] OFFICE [facility] 2022-01-22 2022-01-22 Refill [facility]IB[facility] 1.2.840.114 [id number] Univers 00:00:00 00:00:00 Wondiful A HEALTH 350.1.13.10 ity of [place] 4.2.7.2.686 Luis Armando as EMERSON?BLEA [phone] [address] OFFICE [facility] 2022-01-22 2022-01-22 [facility] 1.2.840.114 [id number] Univers 00:00:00 00:00:00 Keon HEALTH 350.1.13.10 it y of [place] 4.2.7.2.686 Luis Armando as EMERSON?BLEA [phone] [address] OFFICE [facility] 2022-01-19 2022-01-19 [facility], Lane - Shawn [facility] 1.2.840.1 14 [id number] Univers 13:15:00 13:25:36 Visit Evelin Colmenares HEALTH 350.1.13.10 ity of [place] 4.2.7.2.686 Luis Armando as EMERSON?BLEA [phone] [facility] [address] [facility] OFFICE [facility] 2022-01-19 2022-01-19 Outpatient R DEDRA [facility] [id number] Univers 13:15:00 13:15:00 EVELIN ity [facility] 2022-01-19 2022-01-19 Telephone [facility] 1.2.927.547 [id number] Univers 00:00:00 00:00:00 Evelin HEALTH 350.1.13.10 it y of [place] 4.2.7.2.686 Luis Armando as EMERSON?BLEA [phone] [address] OFFICE [facility] 2022-01-16 2022-01-16 Outpatient R DEDRA [facility] [id number] Univers 13:00:00 23:59:00 EVELINSAMM tafoya [facility] 2022-01-16 2022-01-16 Outpatient R DEDRA [facility] [id number] Univers 13:00:00 13:00:00 EVELINSAMM tafoya [facility] 2022-01-16 2022-01-16 [facility], Ang - Db [facility] 1.2.840.1 14 [id number] Univers 12:15:00 12:30:00 Visit Evelin Colmenares 350.1.13.10 ity of [place] 4.2.7.2.686 Luis Armando as EMERSON?BLEA [phone] [facility] [address] [facility] OFFICE [facility] 2022-01-16 2022-01-[address] [facility] 1.2.840.114 [id number] Univers 11:30:00 12:24:17 Visit Evelin JOAQUIN 350.1.13.10 it y of [place] 4.2.7.2.686 Luis Armando as EMERSON?BLEA [phone] [address] OFFICE [facility] 2022-01-16 2022-01-16 Outpatient R DEDRA [facility] [id number] Univers 11:30:00 12:24:17 EVELINSAMM tafoya [facility] 2022-01-16 2022-01-16 Outpatient R DEDRA [facility] [id number] Univers 11:30:00 11:30:00 EVELIN itbonnie [facility] 2021-12-30 2021-12-30 Outpatient R DEDRA [facility] [id number] Univers 14:27:53 23:59:00 EVELIN michelet [facility] 2021-12-30 2021-12-30 Outpatient R DEDRA [facility] [id number] Univers 13:30:00 15:03:09 EVELIN itbonnie [facility] 2021-12-30 2021-12-30 Office [facility] 1.2.840.114 [id number] Univers 13:30:00 15:03:09 Visit Evelin HEALTH 350.1.13.10 it y of [place] 4.2.7.2.686 Luis Armando as EMERSON?BLEA [phone] [address] MEDICAL OFFICE [facility] 2021-12-30 2021-12-30 [facility] [id number] Univers 13:30:00 13:30:00 EVELIN ity [facility] 2021-12-26 2021-12-26 Telephone [facility] 1..448.940 [id number] Univers 00:00:00 00:00:00 Evelin HEALTH 350.1.13.10 it y of [place] 4.2.7.2.686 Luis Armando as EMERSON?BLEA [phone] [address] MEDICAL OFFICE [facility] 2021-12-24 2021-12-24 Outpatient R MELITA [facility] [id number] Univers 13:00:00 13:00:00 SENDIL ity [facility] 2021-12-24 2021-12-24 Outpatient [facility] [id number] Univers 13:00:00 13:00:00 SENDIL ity [facility] 2021-12-24 2021-12-24 Outpatient R MELITA [facility] [id number] Univers 13:00:00 13:00:00 SENDIL ity [facility] 2021-12-24 2021-12-24 Outpatient R MELITA [facility] [id number] Univers 13:00:00 13:00:00 SENDIL ity [facility] 2021-12-24 2021-12-24 Telephone EFREM Hua 1.2.122.026 [id number] Univers 00:00:00 00:00:00 Sendil Aniya HEAD 350.1.13.10 ity [facility] 4.2.7.2.686 Luis Armando as [phone] [address] 2021-12-24 2021-12-24 Telephone [facility] 1.2.327.409 [id number] Univers 00:00:00 00:00:00 Evelin HEALTH 350.1.13.10 it y of [place] 4.2.7.2.686 Luis Armando as EMERSON?BLEA [phone] Az dicbriseyda MEDINA [address] MEDICAL OFFICE BUILDING 2021-12-19 2021-12-19 Outpatient [facility] [id number] Univers 14:30:00 14:58:55 EVEILN ity of [facility] 2021-12-19 2021-12-19 Office [facility] 1.2.840.114 [id number] Univers 14:30:00 14:58:55 Visit [facility] 350.1.13.10 it y of [place] 4.2.7.2.686 Luis Armando as EMERSON?BLEA [phone] Az camila [facility] [address] [facility] OFFICE [facility] 2021-12-19 2021-12-19 Telephone [facility] 1.2.421.493 [id number] Univers 00:00:00 00:00:00 Kamran OTOOLE 350.1.13.10 ity of [facility] 4.2.7.2.686 [place] [facility] [phone] Az dicbriseyda NAL 059 [facility] 2021-12-02 2021-12-02 Outpatient R [facility] [id number] Univers 11:30:00 11:30:00 ity of [facility] 2021-12-02 2021-12-02 Outpatient R [facility] [id number] Univers 11:00:00 11:00:00 ity of [facility] 2021-11-26 2021-11-26 Telephone [facility]CIBOL[facility] 1.2.603.532 [id number] Univers 00:00:00 00:00:00 Elinor SOTO 350.1.13.10 ity of [place]2.[place].2.[place] [phone] [address] [facility] 2021-11-25 2021-11-25 Outpatient R ELINOR JIMENEZ [facility] [id number] Univers 14:30:47 23:59:00 ELINOR JIMENEZ ity of [facility] 2021-11-25 2021-11-25 [facility] 1.2.840.114 [id number] Univers 14:30:47 23:59:00 Encounter Elinor CHARLES 350.1.13.10 ity of [place] 4.2.7.2.686 [facility] [place] [id number] [facility] [address] [facility] 2021-11-25 2021-11-25 Outpatient R BARBARA, ELINOR [facility] [id number] Univers 15:00:00 15:48:19 BARBARA, ELINOR bonnie [facility] 2021-11-25 2021-11-25 Office [facility] 1.2.840.114 [id number] Univers 15:00:00 15:48:19 Visit Elinor CHARLES 350.1.13.10 ity of [place] 4.2.7.2.[address] [facility] s [place] [phone] [facility] [address] [facility] 2021-11-25 2021-11-25 Outpatient R BARBARA ELINOR [facility] [id number] Univers 14:00:00 14:00:00 BARBARA, ELINOR hallbonnie [facility] 2021-11-25 2021-11-25 Outpatient R BARBARA, ELINOR [facility] [id number] Univers 14:00:00 14:00:00 BARBARA ELINOR bonnie [facility] 2021-11-20 2021-11-20 Telephone Barbara CAANA 1.2.735.449 [id number] Univers 00:00:00 00:00:00 Elinor SOTO 350.1.13.10 ity of [place] 4.2.7.2.686 [facility] [place] [id number] [facility] [address] [facility] 2021-11-18 2021-11-18 Telephone EFREM Hua 1.2.834.635 [id number] Univers 00:00:00 00:00:00 Kamran HEAD 350.1.13.10 ity of [facility] 4.2.7.2.686 Luis Armando as [phone] [facility] [address] 2021-11-18 2021-11-18 Refjay Del Real CAANA 1.2.840.114 [id number] Univers 00:00:00 00:00:00 Wondiful A HEALTH 350.1.13.10 ity of [place] 4.2.7.2.686 Luis Armando as EMERSON?BLEA [phone] [facility] [address] [facility] OFFICE [facility] 2021-11-07 2021-11-07 Outpatient R GEE BLOUNT [facility] [id number] Univers 13:00:00 14:01:44 GEE BLOUNT itbonnie [facility] 2021-11-07 2021-11-07 Office [facility] 1.2.840.114 [id number] Univers 13:00:00 14:01:44 Visit Gee Stokes [facility] 350.1.13.10 ity of [place] 4.2.7.2.686 Luis Armando as EMERSON?BLEA [phone] [facility] [address] [facility] 2021-11-07 2021-11-07 [facility] [id number] Univers 11:30:00 11:30:00 EVELIN ity [facility] 2021-11-06 2021-11-06 Telephone [facility] 1.2.263.239 [id number] Univers 00:00:00 00:00:00 Kamran [facility] [id number] ity [facility] [id number] [phone] [facility] 059 [facility] 2021-11-03 2021-11-03 Outpatient R DEDRA [facility] [id number] Univers 11:30:00 12:12:13 EVELIN ity [facility] 2021-11-03 2021-11-03 Office [facility] [id number] Univers 11:30:00 12:12:13 Visit Evelin HEALTH [id number] it y of [place] [id number] Luis Armando as EMERSON?BLEA [phone] [facility] [address] [facility] 2021-11-03 2021-11-03 [facility] [id number] Univers 11:30:00 11:30:00 EVELIN ity [facility] 2021-10-29 2021-10-29 [facility] [id number] Univers 15:00:00 17:02:57 SENDIL ity [facility] 2021-10-29 2021-10-29 [facility] [id number] Univers 15:00:00 17:02:57 Visit Sendil Aniya OTOOLE [id number] it[id number] [phone] [address] 2021-10-29 2021-10-29 [facility] [id number] Univers 15:00:00 17:02:57 SENDIL [facility] 2021-10-24 2021-10-24 Telephone [facility] [id number] Univers 00:00:00 00:00:00 Sendil Aniya OTOOLE [id number] it[id number] [phone] [address] 2021-10-23 2021-10-23 [facility] [id number] Univers 18:00:00 18:18:59 Care [facility] [id number] it y of [place] [id number] Luis Armando as EMERSON?BLEA [phone] [facility] [address] MED[facility] OFF[facility] 2021-10-23 2021-10-23 Outpatient R JAMAL [facility] [id number] Univers 18:00:00 18:00:00 [facility] 2021-10-23 2021-10-[address] [facility] [id number] Univers 00:00:00 00:00:00 Wondiful A HEALTH [id number] ity of [place] [id number] Luis Armando as EMERSON?BLEA [phone] [address] MEDICAL OFFICE BUILDING 2021-10-09 2021-10-09 Outpatient R ELINOR JIMENEZ [facility] [id number] Univers 13:00:00 13:42:33 ELINOR JIMENEZ michelet [facility] 2021-10-09 2021-10-09 [facility] 1.2.840.114 [id number] Univers 13:00:00 13:42:33 Visit Elinor CHARLES 350.1.13.10 ity of [place] 4.2.7.2.686 [place] [facility] [phone] [facility] AND [address] DIABETES CLINIC 2021-10-09 2021-10-09 Outpatient R EL JIMENEZISE [facility] [id number] Univers 13:00:00 13:42:33 ELINOR JIMENEZ michelet [facility] 2021-10-07 2021-10-07 Outpatient R DEDRA [facility] [id number] Univers 16:30:00 17:14:26 EVELIN michelet [facility] 2021-10-07 2021-10-07 Office [facility] 1.2.840.114 [id number] Univers 16:30:00 17:14:26 Visit Evelin JOAQUIN 350.1.13.10 it y of [place] 4.2.7.2.686 Luis Armando as EMERSON?BLEA [phone] [address] MEDICAL OFFICE [facility] 2021-10-07 2021-10-07 Outpatient R DEDRA [facility] [id number] Univers 16:30:00 17:14:26 EVELIN ity [facility] 2021-10-07 2021-10-07 [facility] [id number] Univers 16:30:00 17:14:26 EVELIN tafoya [facility] 2021-10-07 2021-10-07 Orders Doctor CAPONE 1.2.840.114 [id number] Univers 00:00:00 00:00:00 Only Unassigned, SONIDO 350.1.13.10 ity of [place] [facility] 4.2.7.2.686 Luis Armando as [phone] [address] 2021-09-30 2021-09-30 Refill [facility] 1.2.840.114 [id number] Univers 00:00:00 00:00:00 [facility] 350.1.13.10 i ty of [place] 4.2.7.2.686 Luis Armando as EMERSON?BLEA [phone] Az dical KNEY [address] MEDICAL OFFICE BUILDING 2021-09-17 2021-09-17 Outpatient R RADIOLOGY [facility] [id number] Univers 00:00:00 00:00:00 ity of [facility] 2021-09-15 2021-09-15 Outpatient R MELITA, [facility] [id number] Univers 15:00:00 15:00:00 SENDIL ity [facility] 2021-09-10 2021-09-10 Outpatient R MELITA, [facility] [id number] Univers 14:00:00 15:05:34 SENDIL ity [facility] 2021-09-10 2021-09-10 Office [facility] 1.2.840.114 [id number] Univers 14:00:00 15:05:34 Visit Sendil LisaHEricka [place] 350.1.13.10 ity of [place] 4.2.7.2.686 [place] PROF[place] [phone] Az dical NAL 059 [facility] 2021-09-10 2021-09-10 Outpatient R MELITA [facility] [id number] Univers 14:00:00 15:05:34 SENDIL ity [facility] 2021-09-10 2021-09-10 Orders Doctor LIBORIO 1.2.840.114 [id number] Univers 00:00:00 00:00:00 Only Unassigned, SONIDO 350.1.13.10 ity of [place] [facility] 4.2.7.2.686 Luis Armando as [phone] [address] 2021-09-08 2021-09-08 Urgent [facility] 1.2.840.114 [id number] Univers 10:20:00 10:40:00 Care [facility] 350.1.13.10 i ty of [place] 4.2.7.2.686 Luis Armando as EMERSON?BLEA [phone] Az camila [address] MEDICAL OFFICE BUILDING 2021-09-08 2021-09-08 Outpatient R RAUL [facility] [id number] Univers 10:20:00 10:20:00 TAMERA keene f [facility] 2021-09-08 2021-09-08 Letter Doctor LIBORIO 1.2.840.114 [id number] Univers 00:00:00 00:00:00 (Out) Unassigned, SONIDO 350.1.13.10 ity of [place] [facility]OSPITAL 4.2.7.2.686 Luis Armando as [phone] [facility] [address] 2021-09-08 2021-09-08 Letter Doctor LIBORIO 1.2.840.114 [id number] Univers 00:00:00 00:00:00 (Out) Unassigned, SONIDO 350.1.13.10 ity of [place] HOSPITAL 4.2.7.2.686 Luis Armando as [phone] [facility] [address] 2021-09-01 2021-09-01 Transition EDENILSON [place] 1.2.840.114 [id number] Univers 00:00:00 00:00:[address] GOMEZ 350.1.13.10 ity of [place].2.7.2.686 [place] [phone] [facility] [address] 2021-08-29 2021-08-30 Outpatient U PONCHO NO[address] [facility] IGGY [id number] Univers 17:37:00 15:10:00 PONCHO NOBLES of [facility] 2021-08-29 2021-08-30 Emergency Jorge Geiger 1.2.840. 114 [id number] Univers 17:37:00 15:10:00 Poncho Nobles 350.1. 13.10 ity of HOSPITAL 4.2.7.2.686 Luis Armando as [phone] [facility] [address] 2021-08-29 2021-08-29 Outpatient R KING LUKE [facility] [id number] Univers 17:00:00 17:00:00 NESTOR tafoya [facility] 2021-08-27 2021-08-27 Outpatient R ELINOR JIMENEZ [facility] [id number] Univers 15:00:00 15:00:00 BARBARA, ELINOR tafoya [facility] 2021-08-27 2021-08-[address] [facility] 1.2.581.127 [id number] Univers 00:00:00 00:00:00 Elinor MULTISPEC 350.1.13.10 ity of [place] 4.2.7.2.686 [place] CENTER [phone] [facility] AND [place] [address] DI[facility]INIC 2021-08-26 2021-08-26 Outpatient R ELINOR JIMENEZ [facility] [id number] Univers 15:02:48 23:59:00 ELINOR JIMENEZ [facility] 2021-08-26 2021-08-[address] [facility] Barbara [facility] 1.2.840.114 [id number] Univers 15:02:48 23:59:00 Encounter Elinor SOTO 350.1.13.10 ity [place] 4.2.7.2.686 [place] CENTER [phone] [facility] AND [place] [address] DIABETES CLINIC 2021-08-26 2021-08-26 Outpatient ELINOR ENAMORADO [facility] [id number] Univers 14:30:00 14:30:00 ELINOR JIMENEZ [facility] 2021-08-12 2021-08-12 Outpatient R ELINOR JIMENEZ [facility] [id number] Univers 15:30:00 15:30:00 ELINOR JIMENEZ [facility] 2021-08-12 2021-08-[address] [facility] 1.2.840.114 [id number] Univers 15:30:00 15:30:00 Visit Elinor SOTO 350.1.13.10 ity [place] 4.2.7.2.686 [place] C[place] [phone] [facility] AND [place] [address] DIABETES CLINIC 2021-08-12 2021-08-12 Outpatient ELINOR ENAMORADO [facility] [id number] Univers 15:30:00 15:20:13 BARBARAEL SHEFFIELDISE ity of [facility] 2021-08-05 2021-08-05 Outpatient R GT [facility] [id number] Univers 10:15:00 11:59:19 WONDIFUL ity o f [facility] 2021-08-05 2021-08-[address] [facility] 1.2.840.114 [id number] Univers 10:15:00 11:59:19 Visit Wonnancy A HEALTH 350.1.13.10 ity of [place] 4.2.7.2.686 Luis Armando as EMERSON?BLEA [phone] [address] MEDICAL OFFICE BUILDING 2021-08-05 2021-08-05 [employer], Lane - Shawn [facility] 1.2.840.1 14 [id number] Univers 11:15:00 11:30:00 Visit Nehal Del Real HEALTH 350.1.13.1 0 ity of [place] 4.2.7.2.686 Luis Armando as EMERSON?BLEA [phone] Az camila [facility] [address] MEDICAL OFFICE BUILDING 2021-08-04 2021-08-04 Outpatient R GISSELLE DURHAM [facility] [id number] Univers 11:00:00 13:30:03 ity of [facility] 2021-08-04 2021-08-[address] [facility] 1.2.840.114 [id number] Univers 11:00:00 13:30:03 Visit Gisselle [place] [facility] 350.1.13.10 ity of [place] 4[place]2.7.2.686 [place] [phone] [address] OFFICE BUILDING 2021-08-04 2021-08-04 Outpatient R GISSELLE DURHAM [facility] [id number] Univers 11:00:00 11:00:00 ity of [facility] 2021-08-04 2021-08-04 Orders Doctor LIBORIO 1.2.840.114 [id number] Univers 00:00:00 00:00:00 Only Unassigned, SONIDO 350.1.13.10 ity of [place] HOSPITAL 4.2.7.2.686 Luis Armando as [phone] [address] 2021-07-28 2021-07-[address] 1.2.840.114 [id number] Univers 00:00:00 00:00:00 Wondiful A HEALTH 350.1.13.10 ity of [place] 4.2.7.2.686 Luis Armando as EMERSON?BLEA [phone] [facility] [address] MEDICAL OFFICE BUILDING 2021-06-30 2021-06-30 Emergency X [place], [facility] ERT [id number] Univers 15:54:00 18:42:00 FLORENTIN ity [facility] 2021-06-30 2021-06-30 Emergency [facility] 1.2.840.114 [id number] Univers 15:54:00 18:42:00 Florentin B [place] 350.1.13.10 i ty of [place] 4.2.7.2.686 [place] [phone] [facility] [address] 2021-06-28 2021-06-28 Urgent Nurse, [facility] 1.2.840.114 [id number] Univers 19:00:00 19:20:00 Care Raul, Tamera HEALTH 350.1.13.10 ity of [place] 4.2.7.2.686 Luis Armando as EMERSON?BLEA [phone] Az camila [facility] [address] MEDICAL OFFICE [facility] 2021-06-28 2021-06-28 Outpatient R RAUL [facility] [id number] Univers 19:00:00 19:00:00 TAMERA ity o f [facility] 2021-06-28 2021-06-28 [facility] [id number] Univers 19:00:00 19:00:00 TAMERA ity o f [facility] 2021-06-23 2021-06-23 Outpatient R BASHIR [facility] [id number] Univers 20:40:00 20:56:03 HALEY ity [facility] 2021-06-23 2021-06-23 [facility]gent [facility] 1.2.840.114 [id number] Univers 20:40:00 20:56:03 Care Haley HEALTH 350.1.13.10 it y of [place] 4.2.7.2.686 Luis Armando as EMERSON?BLEA [phone] Az camila MEDINA [address] MEDICAL OFFICE BUILDING 2021-06-18 2021-06-[address] [facility] 1.2.096.336 [id number] Univers 10:20:00 10:40:00 Visit Shyanne T [place] 350.1.13.10 ity of [place] 4.2.7.2.686 [place] [phone] Az dicbriseyda NAL 085 [facility] 2021-06-18 2021-06-18 Outpatient R RUY BLANDCOBrittni [facility] [id number] Univers 10:20:00 10:20:00 RUY BLANDCOBrittni [facility] 2021-06-18 2021-06-18 Outpatient R [facility] [id number] Univers 10:20:00 10:20:00 [facility] 2021-06-05 2021-06-05 Orders Doctor CAPONE 1.2.840.114 [id number] Univers 00:00:00 00:00:00 Only Unassigned, SONIDO 350.1.13.10 ity of [place] [facility] 4.2.7.2.686 Luis Armando as [phone] [address] 2021-06-03 2021-06-[address] 1.2.840.114 [id number] Univers 00:00:00 00:00:00 Wondiful A HEALTH 350.1.13.10 ity of [place] 4.2.7.2.686 Luis Armando as EMERSON?BLEA [phone] Az camila MEDINA [address] MEDICAL OFFICE [facility] 2021-06-02 2021-06-[address] [facility] 1.2.840.114 [id number] Univers 00:00:00 00:00:00 Management Wondiful A HEALTH 350.1.13.10 ity of [place] 4.2.7.2.686 Luis Armando as EMERSON?BLEA [phone] Az camila MEDINA [address] MEDICAL OFFICE BUILDING 2021-06-02 2021-06-[address] [facility] 1.2.840.114 [id number] Univers 00:00:00 00:00:00 Wondiful A HEALTH 350.1.13.10 ity of [place] 4.2.7.2.686 Luis Armando as EMERSON?BLEA [phone] Az camila [address] MEDICAL OFFICE BUILDING 2021-05-22 2021-05-22 [employer], [facility] 1.2 .840.114 [id number] Univers 12:47:18 13:02:18 Visit Shyanne Bland 350.1.13. 10 ity of [place] 4.2.7.2.686 [place] [phone] [facility] [address] 2021-05-22 2021-05-22 Outpatient R RUY BLANDCOBrittni [facility] [id number] Univers 13:00:00 13:00:00 SHYANNE BLAND [facility] 2021-05-22 2021-05-22 Outpatient R RUY BLANDCOBrittni [facility] [id number] Univers 13:00:00 13:00:00 ELMERRUY PANDACOL [facility] 2021-05-22 2021-05-22 Orders Doctor LIBORIO 1.2.840.114 [id number] Univers 00:00:00 00:00:00 Only Unassigned, SONIDO 350.1.13.10 ity of [place] [facility] 4.2.7.2.686 Luis Armando as [phone] [place] [address] [address] 2021-05-20 2021-05-20 Outpatient R [facility] [id number] Univers 13:00:00 13:00:00 ity of [facility] 2021-05-20 2021-05-20 Outpatient R [facility] [id number] Univers 13:00:00 13:00:00 RUSSELL RUYCOL [facility] 2021-05-20 2021-05-20 Laboratory Only, Adc Test [facility] 1.2.840. 114 [id number] Univers 12:39:23 12:54:23 Only Shyanne Bland 350.1.13. 10 ity of [facility] 4.2.7.2.686 [place] [phone] [address] 2021-05-13 2021-05-13 [facility] 1.2.840.114 [id number] Univers 00:00:00 00:00:00 Wondiful A HEALTH 350.1.13.10 ity of [place] 4.2.7.2.686 Luis Armando as PROFESSIO [phone] [address] OFFICE [facility] ONE 2021-05-12 2021-05-12 [facility] 1.2.840.114 [id number] Univers 00:00:00 00:00:00 Management Wondiful A HEALTH 350.1.13.10 ity of [place] 4.2.7.2.686 Luis Armando as EMERSON?BLEA [phone] [address] OFFICE [facility] 2021-05-10 2021-05-10 Outpatient Serjio COLE [facility] [id number] Univers 09:40:00 09:40:00 ACE ity of [facility] 2021-05-10 2021-05-[address] Maria Berry [facility] 1.2.840.114 [id number] Univers 09:17:19 09:37:19 Elana Cole Ace HEALTH 350.1.13.10 ity of [place] 4.2.7.2.686 Luis Armando as EMERSON?BLEA [phone] [address] MEDICAL OFFICE [facility] 2021-05-09 2021-05-09 Jorge [facility] 1.2.840.114 [id number] Univers 00:00:00 00:00:00 Wondiful A HEALTH 350.1.13.10 ity of [place] 4.2.7.2.686 Luis Armando as EMERSON?BLEA [phone] [address] MEDICAL OFFICE [facility] 2021-05-06 2021-05-06 Jorge [facility] 1.2.840.114 [id number] Univers 00:00:00 00:00:00 Wondiful A HEALTH 350.1.13.10 ity of [place] 4.2.7.2.686 Luis Armando as PROFESSIO [phone] Az camila FO[place] [address] OFFICE BUILDING ONE 2021-05-05 2021-05-05 Outpatient R GT [facility] [id number] Univers 16:15:00 23:59:00 WONDIFUL ity o f [facility] 2021-05-05 2021-05-05 Hospital [facility] 1.2.336.889 [id number] Univers 16:15:00 23:59:00 Encounter Wondiful A HEALTH 350.1.13.10 ity of [place] 4.2.7.2.686 Luis Armando as EMERSON?BLEA [phone] Az camila MEDINA [address] MEDICAL OFFICE BUILDING 2021-05-05 2021-05-05 [employer], [facility] 1.2.840.1 14 [id number] Univers 16:21:47 16:38:22 Visit Nehal Del Real A HEALTH 350.1.13.1 0 ity of [place] 4.2.7.2.686 Luis Armando as EMERSON?BLEA [phone] Az camila MEDINA [address] MEDICAL OFFICE BUILDING 2021-05-05 2021-05-05 Outpatient R GT [facility] [id number] Univers 16:00:00 16:18:42 WONDIFUL ity o f [facility] 2021-05-05 2021-05-05 Office [facility] 1.2.840.114 [id number] Univers 15:17:21 16:18:42 Visit Wondiful A HEALTH 350.1.13.10 ity of [place] 4.2.7.2.686 Luis Armando as EMERSON?BLEA [phone] Az camila MEDINA [address] MEDICAL OFFICE BUILDING 2021-04-11 2021-04-11 Out[facility] [id number] Univers 15:45:00 15:45:00 WONDIFUL ity o f [facility] 2021-03-09 2021-03-09 Ref[facility] 1.2.840.114 [id number] Univers 00:00:00 00:00:00 Wondiful A Health 350.1.13.10 ity of [place] 4.2.7.2.686 Luis Armando as Professio [phone] [facility] payton [address] [place] [address] One 2021-03-07 2021-03-[address] [facility] 1.2.840.114 [id number] Univers 00:00:00 00:00:00 Wondiful A Health 350.1.13.10 ity of [place] 4.2.7.2.686 Luis Armando as Emerson?Blea [phone] Az camila medina [address] [place] [address] Office [facility] 2021-02-12 2021-02-12 Refill [facility] 1.2.840.114 [id number] Univers 00:00:00 00:00:00 Wondiful A Health 350.1.13.10 ity of [place] 4.2.7.2.686 Luis Armando as Professio [phone] [facility] payton [address] [place] [address] One 2021-02-10 2021-02-10 Outpatient R KARLIE JIM [facility] [id number] Univers 10:00:00 10:00:00 ity of [facility] 2021-02-10 2021-02-10 Office [facility] 1.2.840.114 [id number] Univers 09:40:46 09:55:46 Visit Health 350.1.13.10 it y of [place].2.7.2.686 [place] [phone] [address] Office Building 2021-01-20 2021-01-20 Outpatient R GT [facility] [id number] Univers 08:00:00 08:00:00 WONDIFUL ity o f [facility] 2021-01-17 2021-01-17 Outpatient R GT [facility] [id number] Univers 10:30:00 10:30:00 WONDIFUL ity o f [facility] 2021-01-01 2021-01-01 Outpatient R AGUILA [facility] [id number] Univers 16:20:00 16:20:00 CHUCKIE ity [facility] 2020-12-30 2020-12-30 Outpatient R SARMAD [facility] [id number] Univers 15:00:00 15:00:00 [facility] 2020-12-24 2020-12-24 Outpatient R HELENE [facility] [id number] Univers 15:45:00 15:45:00 MARY [facility] 2020-12-09 2020-12-09 Outpatient R ANYI [facility] [id number] Univers 11:15:00 11:15:00 ANYI [facility] 2020-11-07 2020-11-07 Outpatient R [facility] [id number] Univers 13:00:00 13:00:00 [facility] 2020-11-05 2020-11-05 Outpatient R HELENE [facility] [id number] Univers 15:45:00 15:45:00 [facility] 2020-11-04 2020-11-04 Outpatient R SARMAD [facility] [id number] Univers 14:00:00 14:00:00 [facility] 2020-10-28 2020-10-28 Outpatient [facility] [id number] Univers 13:30:00 13:30:00 [facility] 2020-10-17 2020-10-17 Outpatient [facility] [id number] Univers 10:45:00 10:45:00 WONDIFUL ity o f [facility] 2020-10-07 2020-10-07 Outpatient R SARMAD [facility] [id number] Univers 09:45:00 09:45:00 [facility] 2020-09-12 2020-09-12 Outpatient [facility] [id number] Univers 09:30:00 09:30:00 [facility] 2020-09-10 2020-09-10 Outpatient R DEDRA [facility] [id number] Univers 16:15:00 16:15:00 [facility] 2020-09-02 2020-09-02 [facility] [id number] Univers 14:00:00 14:00:00 WONDIFUL ity o f [facility] 2020-08-30 2020-08-30 Outpatient R GT [facility] [id number] Univers 16:00:00 16:00:00 WONDIFUL ity o f [facility] 2020-08-20 2020-08-20 Telephone [facility] 1.2.840.114 [id number] 00:00:00 00:00:00 Wondiful A Health 350.1.13.10 [place] 4.2.7.2.686 Professio [phone] nal [address] One 2020-08-05 2020-08-05 Outpatient R SARMAD [facility] [id number] Univers 14:00:00 14:00:00 [facility] 2020-07-23 2020-07-23 Telephone [facility] 1.2.840.114 [id number] 00:00:00 00:00:00 Wondiful A Health 350.1.13.10 [place] 4.2.7.2.686 Professio [phone] nal 0[address] One 2020-07-19 2020-07-19 Outpatient R GT [facility] [place] [id number] Univers 11:00:00 11:00:00 [facility] ity o f [facility] 2020-07-19 2020-07-19 [facility] [id number] 08:01:11 10:21:48 Visit [facility] [id number] [place] [id number] Professio [phone] nal 044 Office [address] [facility] 2020-07-19 2020-07-19 Outpatient R GT [facility] [place] [id number] Univers 08:00:00 08:00:00 [facility]OND[facility]UL ity o f [facility] 2020-05-10 2020-05-10 Outpatient Serjio DEL REAL [facility] [place] [id number] Univers 08:00:00 08:00:00 WONDIFUL ity o f [facility] 2020-05-09 2020-05-09 Outpatient R GT [facility] [place] [id number] Univers 13:00:00 13:00:00 WONDIFUL ity o f [facility] 2020-04-29 2020-04-29 Outpatient R GT [facility] [place] [id number] Univers 13:00:00 13:00:00 WONDIFUL ity o f [facility] 2020-04-19 2020-04-19 Outpatient R GT [facility] [place] [id number] Univers 16:00:00 16:00:00 WONDIFUL ity o f [facility] 2020-04-16 2020-04-16 Outpatient R HELENE, [facility] [place] [id number] Univers 13:30:00 13:30:00 MARY tafoya [facility] 2020-04-02 2020-04-02 Outpatient R HELENE, [facility] [place] [id number] Univers 13:30:00 13:30:00 MARY tafoya [facility] 2020-03-21 2020-03-21 Outpatient R [facility] [place] [id number] Univers 13:20:00 13:20:00 ity [facility] 2020-03-13 2020-03-13 Outpatient R GRAMM [facility] [place] [id number] Univers 13:30:00 13:30:00 J[facility] [facility] [place] 2020-03-05 2020-03-05 Outpatient R HELENE, [facility] [place] [id number] Univers 14:00:00 14:00:00 MARY tafoya [facility] 2020-01-29 2020-01-29 Outpatient R GT [facility] [place] [id number] Univers 10:00:00 10:00:00 WONDIFUL ity o f [facility] 2020-01-24 2020-01-24 Outpatient R HENRY, [facility] [place] [id number] Univers 13:00:00 13:00:00 HEATHER tafoya [facility] 2020-01-18 2020-01-18 Outpatient R ELAINE, [facility] [place] [id number] Univers 13:15:00 13:15:00 HEATHERVANIA tafoya [facility] 2020-01-15 2020-01-15 Outpatient R ELINOR JIMENEZ [facility] [place] [id number] Univers 14:30:00 14:30:00 ELINOR JIMENEZ [facility] 2020-01-11 2020-01-11 Outpatient R ELAINE [facility] [place] [id number] Univers 14:15:00 14:15:00 HEATHERVANIA tafoya [facility] 2019-12-19 2019-12-19 Outpatient R BIBI [facility] [place] [id number] Univers 10:00:00 10:00:00 CINDY ity o f [facility] 2019-12-13 2019-12-13 Outpatient R ELINOR JIMENEZ [facility] V[facility] [id number] Univers 07:19:00 09:45:00 ELINOR JIMENEZ [facility] 2019-12-10 2019-12-10 Outpatient R AMADA [facility] [place] [id number] Univers 16:00:00 16:00:00 ZARA michelet [facility] 2019-12-08 2019-12-08 Outpatient R GT [facility] [place] [id number] Univers 16:15:00 16:15:00 WONDIFUL ity o f [facility] 2019-11-28 2019-11-28 Outpatient R ELINOR JIMENEZ [facility] [place] [id number] Univers 13:30:00 13:30:00 ELINOR JIMENEZ [facility] 2019-11-23 2019-11-23 Outpatient R HELENE, [facility] [place] [id number] Univers 10:30:00 10:30:00 MARY tafoya [facility] 2019-11-06 2019-11-06 Outpatient R GT [facility] [place] [id number] Univers 13:45:00 13:45:00 WONDIFUL itbonnie o f [facility] 2019-10-31 2019-10-31 Outpatient R HELENE [facility] [place] [id number] Univers 12:29:42 23:59:00 MARY tafoya [facility] 2019-10-24 2019-10-24 Outpatient R HELENE [facility] [place] [id number] Univers 13:30:00 13:30:00 MARY bonnie [facility] 2019-09-20 2019-09-20 Outpatient R NAIMA [facility] [place] [id number] Univers 13:30:00 13:30:00 ORIN [facility] 2019-09-18 2019-09-18 Outpatient Serjio DEL REAL [facility] [place] [id number] Univers 16:15:00 16:15:00 WONDIFUL ity o f [facility] 2019-09-12 2019-09-12 Outpatient Serjio NARAYAN [facility] [place] [id number] Univers 14:45:00 14:45:00 MARY bonnie [facility] 2019-09-08 2019-09-08 Outpatient Serjio DEL REAL [facility] [place] [id number] Univers 11:15:00 11:15:00 WONDIFUL ity o f [facility] 2018-10-03 2018-10-03 Outpatient Serjio DEL REAL [facility] [place] [id number] Univers 12:17:25 14:32:00 WONDIFUL ity o reji [facility] Results Test Description Test Time Test Comments Results Result Comments Source POCT HEMOGLOBIN A1C TEST 2023-01-29 21:28:00 Test Item Value Reference Range Interpretation Comme nts POCT HBA1C (test code = 4548-4) 7.4 % 4-6 A Lab Interpretation (test code = 32159-5) [facility] [id number] 21:28:00 Test Item Value Reference Range Interpretation Comments POCT HBA1C (test code = 4548-4) 7.4 % 4-6 A Lab Interpretation (test code = Abnormal 83631-1) [facility] [id number] 22:33:13 Test Item Value Reference Range Interpretation Comments PSA (test code = 1.78 ng/mL <=4.00 [id number]) MARIO (test code = MARIO) Biotin has been reported to cause a negative bias, interpret results relative to patient's use of biotin. Lab Interpretation (test Normal code = 86265-5) [facility]OL[facility] ([id number])2022-12-04 22:06:27 Test Item Value Reference Range Interpretation Comments NA (test code = 139 mmol/L 135-145 4563810679) K (test code = 4.7 mmol/L 3.5-5.0 3475456771) CL (test code = 104 mmol/L 98-108 7699419760) CO2 TOTAL (test code = 25 mmol/L 23-31 0694188414) AGAP (test code = 10 2-16 6849066313) BUN (test code = 22 mg/dL 7-23 1184598921) GLUCOSE (test code = 154 mg/dL 70-110 H 4205001010) CREATININE (test code = 0.83 mg/dL 0.60-1.25 7400216956) TOTAL BILI (test code = 0.6 mg/dL 0.1-1.5 3725119947) CALCIUM (test code = 9.6 mg/dL 8.6-10.6 5401498918) T PROTEIN (test code = 6.8 g/dL 6.3-8.2 6809983072) ALBUMIN (test code = 4.2 g/dL 3.5-5.0 4037790083) ALK PHOS (test code = 56 U/L 34-122 0889204726) ALTv (test code = 22 U/L 5-50 1742-6) AST(SGOT) (test code = 21 U/L 13-40 2004175510) eGFR (test code = 88.7 mL/min/1.73m2 2678811888) MARIO (test code = MARIO) Association of [...] tests). Lab Interpretation Abnormal (test code = 77282-6) [facility]. METABOLIC PANEL ([id number])2022-12-04 22:06:27 Test Item Value Reference Range Interpretation Comments NA (test code = 139 mmol/L 135-145 0741567996) K (test code = 4.7 mmol/L 3.5-5.0 3943280271) CL (test code = 104 mmol/L 98-108 5809784142) CO2 TOTAL (test code = 25 mmol/L 23-31 2364238194) AGAP (test code = 10 2-16 4039292076) BUN (test code = 22 mg/dL 7-23 9313476927) GLUCOSE (test code = 154 mg/dL 70-110 H 2809094963) CREATININE (test code = 0.83 mg/dL 0.60-1.25 0367712552) TOTAL BILI (test code = 0.6 mg/dL 0.1-1.4 5553618957) CALCIUM (test code = 9.6 mg/dL 8.6-10.6 7978748017) T PROTEIN (test code = 6.8 g/dL 6.3-8.2 9383602011) ALBUMIN (test code = 4.2 g/dL 3.5-5.0 3287933175) ALK PHOS (test code = 56 U/L 34-122 4972360635) ALTv (test code = 22 U/L 5-50 1742-6) AST(SGOT) (test code = 21 U/L 13-40 8982692363) eGFR (test code = 88.7 mL/min/1.73m2 0953949186) MARIO (test code = MARIO) Association of [...] tests). Lab Interpretation Abnormal (test code = 15487-2) [facility]1C)2022-12-04 21:40:39 Test Item Value Reference Range Interpretation Comments HGB A1C (test code = 7.3 % 4.0-5.7 H 4548-4) MARIO (test code = MARIO) Reference RangesNormal: <5.7%Prediabetes: 5.7 - 6.4%Diabetes: > 6.5% Lab Interpretation (test Abnormal code = 78680-9) [facility] ([id number])2022-09-18 19:43:39 Test Item Value Reference Range Interpretation Comments NA (test code = 139 mmol/L 135-145 7609224383) K (test code = 4.8 mmol/L 3.5-5.0 2408063138) CL (test code = 104 mmol/L 98-108 8426148468) CO2 TOTAL (test code = 27 mmol/L 23-31 1478628046) AGAP (test code = 8 2-16 4705712199) BUN (test code = 20 mg/dL 7-23 1647759680) GLUCOSE (test code = 148 mg/dL 70-110 H 9831634415) CREATININE (test code = 0.84 mg/dL 0.60-1.25 4294638456) TOTAL BILI (test code = 0.7 mg/dL 0.1-1.3 4417124455) CALCIUM (test code = 9.2 mg/dL 8.6-10.6 1566296949) T PROTEIN (test code = 6.8 g/dL 6.3-8.2 1928436164) ALBUMIN (test code = 4.1 g/dL 3.5-5.0 8886449360) ALK PHOS (test code = 50 U/L 34-122 0417883248) ALTv (test code = 19 U/L 5-50 1742-6) AST(SGOT) (test code = 20 U/L 13-40 0349544307) eGFR (test code = 87.5 mL/min/1.73m2 4671972705) MARIO (test code = MARIO) Association of [...] tests). Lab Interpretation Abnormal (test code = 42072-9) [facility]. METABOLIC PANEL ([id number])2022-09-18 19:43:39 Test Item Value Reference Range Interpretation Comments NA (test code = 139 mmol/L 135-145 2827235909) K (test code = 4.8 mmol/L 3.5-5.0 4351999312) CL (test code = 104 mmol/L 98-108 4015575140) CO2 TOTAL (test code = 27 mmol/L 23-31 8429257155) AGAP (test code = 8 2-16 8129607762) BUN (test code = 20 mg/dL 7-23 0442578230) GLUCOSE (test code = 148 mg/dL 70-110 H 6248167972) CREATININE (test code = 0.84 mg/dL 0.60-1.25 5244403378) TOTAL BILI (test code = 0.7 mg/dL 0.1-1.1 1753737840) CALCIUM (test code = 9.2 mg/dL 8.6-10.6 9392877739) T PROTEIN (test code = 6.8 g/dL 6.3-8.2 1940564116) ALBUMIN (test code = 4.1 g/dL 3.5-5.0 9464109159) ALK PHOS (test code = 50 U/L 34-122 0860965417) ALTv (test code = 19 U/L 5-50 1742-6) AST(SGOT) (test code = 20 U/L 13-40 2346691614) eGFR (test code = 87.5 mL/min/1.73m2 1715728744) MARIO (test code = MARIO) Association of [...] tests). Lab Interpretation Abnormal (test code = 64937-1) [facility] WITH [id number] 19:10:29 Test Item Value Reference Range Interpretation Comments WBC (test code = 6.31 See_Comment [Automated message] 5690-2) The system Yob[employer] generated this result transmitted ref erence range: 4.20 - 1 0.70 10*3/?L. The re ference range was not u sed to interpret this result as normal/abnor mal. RBC (test code = 4.93 See_Comment [Automated message] 719-8) The system [employer]ob[employer] generated this result transmitted ref erence range: [...] RDW-SD (test code 48.5 fL 38.5-51.6 = 72221-0) RDW-CV (test code 14.5 % 12.1-15.4 = 788-0) PLT (test code = 258 See_Comment [Automated message] 777-3) The system whic h generated this result transmitted ref erence range: 150 - 32 8 10*3/?L. The re ference range was not u sed to interpret this result as normal/abnor mal. MPV (test code = 10.5 fL 9.8-13.0 15749-4) NRBC/100 WBC (test 0.0 See_Comment [Automat ed message] code = 5595962096) The syste m which generated this result transmitted ref erence range: 0.0 - 10 .0 /100 WBCs. The refer ence range was not u sed to interpret this result as normal/abnor mal. NRBC x10^3 (test See_Comment [Automated message] code = 7641507637) The syste m which generated this result transmitted ref erence range: 10*3/?L. The reference range was not used to interpr et this result as normal/abnormal . GRAN MAT (NEUT) % 58.2 % (test code = 770-8) IMM GRAN % (test 0.20 % code = 9648554538) LYMPH % (test code 26.0 % = 736-9) MONO % (test code 11.3 % = 5905-5) EOS % (test code = 3.3 % 713-8) BASO % (test code 1.0 % = 706-2) GRAN MAT 3.68 10*3/uL 1.99-6.95 x10^3(ANC) (test code = 4619226710) IMM GRAN x10^3 0.00-0.06 (test code = 3610336362) LYMPH x10^3 (test 1.64 10*3/uL 1.09-3.23 code = 731-0) MONO x10^3 (test 0.71 10*3/uL 0.36-1.02 code = 742-7) EOS x10^3 (test 0.21 10*3/uL 0.06-0.53 code = 711-2) BASO x10^3 (test 0.06 10*3/uL 0.01-0.09 code = 704-7) [facility] WITH [id number] 19:10:29 Test Item Value Reference Range Interpretation Comments WBC (test code = 6.31 See_Comment [Automated message] 9790-2) The system [employer]ob[employer] generated this result transmitted ref erence range: 4.20 - 1 0.70 10*3/?L. The re ference range was not u sed to interpret this result as normal/abnor mal. RBC (test code = 4.93 See_Comment [Automated message] 769-8) The system [employer]ob[employer] generated this result transmitted ref erence range: [...] RDW-SD (test code 48.5 fL 38.5-51.6 = 85443-8) RDW-CV (test code 14.5 % 12.1-15.4 = 788-0) PLT (test code = 258 See_Comment [Automated message] 057-3) The system [employer]ob[employer] generated this result transmitted ref erence range: 150 - 32 8 10*3/?L. The re ference range was not u sed to interpret this result as normal/abnor mal. MPV (test code = 10.5 fL 9.8-13.0 85563-8) NRBC/100 WBC (test 0.0 See_Comment [Automat ed message] code = 6846384950) The Infogram which generated this result transmitted ref erence range: 0.0 - 10 .0 /100 WBCs. The refer ence range was not u sed to interpret this result as normal/abnor mal. NRBC x10^3 (test See_Comment [Automated message] code = 6750260820) The syste m which generated this result transmitted ref erence range: 10*3/?L. The reference range was not used to interpr et this result as normal/abnormal . GRAN MAT (NEUT) % 58.2 % (test code = 770-8) IMM GRAN % (test 0.20 % code = 2648878854) LYMPH % (test code 26.0 % = 736-9) MONO % (test code 11.3 % = 5905-5) EOS % (test code = 3.3 % 713-8) BASO % (test code 1.0 % = 706-2) GRAN MAT 3.68 10*3/uL 1.99-6.95 x10^3(ANC) (test code = 4813332392) IMM GRAN x10^3 0.00-0.06 (test code = 1929459069) LYMPH x10^3 (test 1.64 10*3/uL 1.09-3.23 code = 731-0) MONO x10^3 (test 0.71 10*3/uL 0.36-1.02 code = 742-7) EOS x10^3 (test 0.21 10*3/uL 0.06-0.53 code = 711-2) BASO x10^3 (test 0.06 10*3/uL 0.01-0.09 code = 704-7) [facility] SARS-COV-2 ANTIGEN (BINAX NOW)2022-05-19 22:25:00 Test Item Value Reference Range Interpretation Comments POCT SARS-COV-2 ANTIGEN Not Detected Not Detected (test code = 24511-2) On board controls Yes acceptable with C Line (test code = 3574) MARIO (test code = MARIO) accurate development and interpretation of all internal controls Lab Interpretation Normal (test code = 07831-7) [facility] URINALYSIS, [id number] 18:16:00 Test Item Value Reference Range Interpretation [...] U APPEAR (test code = clear 3267) [facility] URINALYSIS, [id number] 18:16:00 Test Item Value Reference Range Interpretation [...] U APPEAR (test code = clear 3267) [facility] URINALYSIS, [id number] 13:34:00 Test Item Value Reference Range Interpretation [...] U APPEAR (test code = Clear 3267) [facility] [id number] 13:34:00 Test Item Value Reference Range Interpretation [...] U APPEAR (test code = Clear 3267) [facility] Notes Date/Time Note Provider Source 2023-02-08 Formatting of this note might be differe nt from the original. Eugenie Rockwell RN [facility] 17:10:12-00:00 Pt discharged with diagnosis of flank pain and chronic bilateral low back pain with R sided sciatica. Printed and verbal instructions reviewed with and given to patient. Prescriptions given x 2. Pt verb alized understanding of teac sharon, medications, and recommended follow-up. Denies questions or concerns at this time. Pt ambulatory with cane at discharge. Appears in no apparent distress. Accompanied by . 2023-02-08 Formatting of this note might be differe nt from the original. Sirisha Helms RN [facility] 15:41:56-00:00 Complaining of sciatic type pain to left leg for "a long time". Pain starts in left hip and radiates down left leg. States its getting worse. Took tylenol today. Electronically signed by Sirisha Helms RN at 3:42 PM CDT 2023-01-22 Formatting of this note might be differe nt from the original. Maris Haines MA [facility] 13:22:35-00:00 Patient notified. Electronically signed by Maris Haines MA at 09/2022 1:22 PM T 2023-01-21 Formatting of this note might be differe nt from the original. [employer] 11:16:41-00:00 Please inform patient that Francine Bañuelos is OOO until 02/17/2023. He should expect to be contacted to reschedule following his return PROVIDER T 2023-01-20 [facility] 15:58:44-00:00 Spoke with patient via phone surgery cancelled i n October 2022. Would like to reschedule surgery Please advice. Electronically signed by Maris Haines MA at 07/2022 4:00 PM T 2023-01-20 Formatting of this note might be differe nt from the original. Germania Henriquez MA [facility] 15:22:58-00:00 Patient and spouse walked in to clinic and stated Nestor would like to reschedule his procedure : LASER ABLATION OF PROSTATE. He stated he needed to cancel due to not feeling well with flu like symptoms. He is now feeling better bu t stated his urinary symptoms have worsened. He is unsure if he needs another appt with Dr. Bañuelos prior to but is willing to come in and see him again if needed. Patient wa s informed I will get this m essage to his clinical staff and someone will contact him. The best call back number is [phone]. Electronically signed by Germania Henriquez MA at 0 01/20/2023 3:26 PM CDT
[2023-02-14] MEDS ORDERED: NA CHLORIDE 0.9% 500 ML ONE (09:44)
[2023-02-14] MEDS ORDERED: ONDANSETRON 4 MG/2 ML VIAL ONE (09:44)
[2023-02-14] MEDS ORDERED: NA CHLORIDE 0.9% 1,000 ML ONE (09:44)
[2023-02-14] MEDS ORDERED: FENTANYL CITR 100 MCG/2 ML ONE (09:44)
[2023-02-14 09:54] LABS: Absolute Lymphocytes (CBC) 2.7 K/uL (0.7-4.9); Hematocrit 45.4 % (39.6-49.0); Lymphocytes % 24.2 % (15.3-44.8); MCV 91.5 fL (80-100); Platelets 261 thou/uL (152-406); RBC Red Blood Cell Count 4.96 M/uL (4.33-5.43)
[2023-02-14 09:55] LABS: Specific Gravity 1.023 (1.005-1.030); Urine Bilirubin NEGATIVE (Negative); Urine Blood Negative (Negative); Urine Clarity Clear (Clear); Urine Color Light-Yellow (Yellow); Urine Glucose NEGATIVE (Negative); Urine Protein NEGATIVE (Negative); Urine Urobilinogen Normal (Normal); Urine pH 5.5 (5.0-7.0)
[2023-02-14 10:00] LABS: Protime INR 0.95
[2023-02-14 10:23] LABS: Albumin 3.5 g/dL (3.4-5.0); Bilirubin Direct 0.1 mg/dL (0-0.2); Bilirubin Indirect, Calculated 0.4 mg/dL (0.2-0.8); Bilirubin Total 0.5 mg/dL (0.2-1.0); Potassium 3.8 mEq/L (3.5-5.1); Protein, Total 6.9 g/dL (6.4-8.2); Troponin High Sensitivity 8.3 pg/mL (<58.9)
--- NOTE | 2023-02-14 11:03 | RAD REPORT ---
EXAM DESCRIPTION: RADChest Single View02/14/2023 10:40 am CLINICAL HISTORY: COUGH COMPARISON: Chest Single View dated 11/12/2022; Chest Single View dated 07/27/2022; Chest Single View d ated 04/26/2021; Chest Single View dated 08/19/2020 TECHNIQUE: Portable AP view of the chest. FINDINGS: The lungs are clear. Bibasilar atelectatic changes. Patient rotation limits evaluation. No pneumothorax or effusion. The cardiomediastinal contours are unremarkable. IMPRESSION: No acute cardiopulmonary process.
--- NOTE | 2023-02-14 11:09 | RAD REPORT ---
EXAM DESCRIPTION: CT - Head Brain Wo Cont - 02/14/2023 10:42 am CLINICAL HISTORY: DIZZINESS COMPARISON: Facial Bones W/ Mpr dated 04/26/2021; Head Brain Wo Cont dated 04/01/2020 TECHNIQUE: Noncontrast head CT images were obtained without IV contrast. Multiplanar reformats were generated and reviewed. All CT scans are performed using dose optimization technique as appropriate and may include automated exposure control or mA/KV adjustment according to patient size. FINDINGS: No intracranial hemorrhage, mass, or edema. Midline structures are unremarkable. Mild diffuse parenchymal volume loss again seen. Stable ventricular caliber. Mild periventricular and deep white matter hypoattenuation, nonspecific, but suggest chronic small ve ssel ischemic changes. Rasheed-white matter differentiation is preserved, without evidence of acute infarct. No abnormal extra- axial fluid collections. Mastoid air cells and visualized portions of the paranasal sinuses are clear. No acute bony findings. IMPRESSION: No evidence of an acute intracranial process. Chronic findings as above.
--- NOTE | 2023-02-14 11:32 | RAD REPORT ---
EXAM DESCRIPTION: US - CP - 02/14/2023 10:32 am CLINICAL HISTORY: DIZZINESS COMPARISON: Head C Spine Mpr Wo Con dated 04/26/2021 TECHNIQUE: Real-time sonographic grayscale, color duplex, and spectral wave Doppler evaluation of kellie th carotid systems was performed. FINDINGS: Normal high resistance waveforms are noted in both external carotid arteries. The common c arotid arteries and internal carotid arteries show normal low resistance waveforms. Mild calcified right and noncalcified left smooth atherosclerotic plaque. Peak systolic velocity les s than 125 cm/ sec bilaterally. ICA/CCA peak systolic ratios less than 2.0 bilaterally. Antegrade flow seen in both vertebral arteries. IMPRESSION: Mild atherosclerotic changes as above. Less than 50% ICA stenosis bilaterally. Vertebral arteries are patent. Evaluation of carotid artery stenosis, if any, is reported based on consensus recommendations of the Society of Radiologists in Ultrasound (Palomo et al., Radiology, 2003)
--- NOTE | 2023-02-14 11:43 | RAD REPORT ---
EXAM DESCRIPTION: CT - Abdomen Pelvis W Contrast - 02/14/2023 10:53 am CLINICAL HISTORY: ABD PAIN COMPARISON: Abdomen Pelvis W Contrast dated 12/17/2022; Abdomen Pelvis W Contrast dated 10/24/2021; Abdomen Pelvis W Contrast dated 04/26/2021 TECHNIQUE: Thin cut axial CT imaging of the abdomen and pelvis was performed following intravenous a dministration of 95 mL Isovue 300. Multiplanar reformats were generated and reviewed. All CT scans are performed using dose optimization technique as appropriate and may include automated exposure control or mA/KV adjustment according to patient size. FINDINGS: No suspicious findings in the lung bases. The liver, spleen, and pancreas show no suspicious findings. Status post cholecystectomy Symmetric renal function is seen with no hydronephrosis or suspicious renal mass. Right kidney again shows pelvic location. No dilated bowel loops or bowel wall thickening. No free air, free fluid or inflammatory stranding. N o hernia, mass or bulky lymphadenopathy. Prostatomegaly. The urinary bladder is without significant finding. No suspicious bony findings. IMPRESSION: No acute intra-abdominal process. Stable findings as above.
--- NOTE | 2023-02-14 13:06 | EDPHYS ---
Physician Documentation [facility] Name: Dave Moreland Age: 83 yrs Sex: Male : 1940 Arrival Date: 02/14/2023 Time: 08:51 Bed 16 Private MD: ED Physician Jalil Silva HPI: 02/14 12:49 This 83 yrs old Male presents to ER via Ambulatory with complaints of Groin jaxon Pain, Leg Pain, Dizziness. 12:49 The patient presents with pain, that is acute. The complaints affect the right leg and jaxon left leg. Context: resulted from an unknown cause. Historical: - Allergies: 09:13 Codeine; jl7 - Home Meds: 09:13 escitalopram oxalate 10 mg Oral tablet daily [Active]; finasteride 5 mg Oral tablet jl7 [Active]; lisinopril 20 mg Oral tablet [Active]; metformin 1,000 mg Oral Tablet, Extended Release 24 hr 2 times per day [Active]; pantoprazole 40 mg Oral tablet, delayed release (enteric coated) [Active]; - PMHx: 09:13 Diabetes - NIDDM; GERD; Hyperlipidemia; Hypertension; Myocardial infarction; prostate jl7 problems; Atrial fibrillation; - PSHx: 09:13 cardiac stent x 7; Cholecystectomy; jl7 - Immunization history:: Adult Immunizations unknown. - Social history:: Smoking status: unknown. ROS: 12:51 Constitutional: Negative for fever, chills, and weight loss, Eyes: Negative for injury, jaxon pain, redness, and discharge, ENT: Negative for injury, pain, and discharge, Neck: Negative for injury, pain, and swelling, Cardiovascular: Negative for chest pain, palpitations, and edema, Respiratory: Negative for shortness of breath, cough, wheezing, and pleuritic chest pain, Back: Negative for injury and pain, : Negative for injury, bleeding, discharge, and swelling, MS/Extremity: Negative for injury and deformity, Skin: Negative for injury, rash, and discoloration, Neuro: Negative for headache, weakness, numbness, tingling, and seizure, Psych: Negative for depression, anxiety, suicide ideation, homicidal ideation, and hallucinations, Allergy/Immunology: Negative for hives, rash, and allergies, Endocrine: Negative for neck swelling, polydipsia, polyuria, polyphagia, and marked weight changes, Hematologic/Lymphatic: Negative for swollen nodes, abnormal bleeding, and unusual bruising. 12:51 Abdomen/GI: Positive for abdominal pain, abdominal cramps, of the right lower quadrant and left lower quadrant. Exam: 12:51 Constitutional: This is a well developed, well nourished patient who is awake, alert, jaxon and in no acute distress. Head/Face: Normocephalic, atraumatic. Eyes: Pupils equal round and reactive to light, extra-ocular motions intact. Lids and lashes normal. Conjunctiva and sclera are non-icteric and not injected. Cornea within normal limits. Periorbital areas with no swelling, redness, or edema. ENT: Nares patent. No nasal discharge, no septal abnormalities noted. Tympanic membranes are normal and external auditory canals are clear. Oropharynx with no redness, swelling, or masses, exudates, or evidence of obstruction, uvula midline. Mucous membranes moist. Neck: Trachea midline, no thyromegaly or masses palpated, and no cervical lymphadenopathy. Supple, full range of motion without nuchal rigidity, or vertebral point tenderness. No Meningismus. Chest/axilla: Normal chest wall appearance and motion. Nontender with no deformity. No lesions are appreciated. Cardiovascular: Regular rate and rhythm with a normal S1 and S2. No gallops, murmurs, or rubs. Normal PMI, no JVD. No pulse deficits. Respiratory: Lungs have equal breath sounds bilaterally, clear to auscultation and percussion. No rales, rhonchi or wheezes noted. No increased work of breathing, no retractions or nasal flaring. Back: No spinal tenderness. No costovertebral tenderness. Full range of motion. Male : Normal genitalia with no discharge or lesions. Skin: Warm, dry with normal turgor. Normal color with no rashes, no lesions, and no evidence of cellulitis. MS/ Extremity: Pulses equal, no cyanosis. Neurovascular intact. Full, normal range of motion. Neuro: Awake and alert, GCS 15, oriented to person, place, time, and situation. Cranial nerves II-XII grossly intact. Motor strength 5/5 in all extremities. Sensory grossly intact. Cerebellar exam normal. Normal gait. Psych: Awake, alert, with orientation to person, place and time. Behavior, mood, and affect are within normal limits. 12:51 ECG was reviewed by the Attending Physician. 12:51 Abdomen/GI: Inspection: distension, that is mild, Bowel sounds: normal, Palpation: mild abdominal tenderness, in all quadrants, Liver: no appreciated palpable abnormalities, Hernia: not appreciated. 12:51 Musculoskeletal/extremity: ROM: full active range of motion, full passive range of motion, Circulation is intact in all extremities. Sensation intact. Compartment Syndrome exam of affected extremity: is normal. Weight bearing: able to fully bear weight, DVT Exam: No signs of deep vein thrombosis. no pain, no swelling, no tenderness, negative Homans' sign noted on exam, no appreciated bluish discoloration, no erythema, no increased warmth. 12:51 Neuro: Orientation: is normal, appropriate for stated age, no acute changes, Mentation: is normal, appropriate for stated age, no acute changes, Memory: is normal, appropriate for stated age, no acute changes, Cranial nerves: grossly normal, is grossly normal based on the patient's age, no acute changes, Cerebellar function: is grossly normal, is grossly normal based on the patient's age, no acute changes, Motor: moves all fours, strength is normal, Sensation: is normal, no obvious gross deficits, appropriate Gait: is steady, at a normal pace, without difficulty, Babinski testing is normal, seizure activity, is not displayed by the patient. Vital Signs: 09:12 BP 135 / 89; Pulse 76; Resp 17; Temp 98.7; Pulse Ox 100% ; Weight 84.82 kg; Height 5 jl7 ft. 10 in. ; Pain 10/10; 10:30 BP 131 / 92; Pulse 62; Resp 18; Pulse Ox 99% ; ld1 13:23 BP 136 / 88; Pulse 59; Resp 18; Pulse Ox 100% on R/A; Pain 3/10; ld1 09:12 Body Mass Index 26.83 (84.82 kg, 177.8 cm) [facility] 09:12 Pain Scale: Adult jl7 13:23 Pain Scale: Adult ld1 NIH Stroke Scale Scores: 12:51 NIHSS Score: 0 jaxon [place] Coma Score: 12:51 Eye Response: spontaneous(4). Motor Response: obeys commands(6). Verbal Response: jaxon oriented(5). Total: 15. MDM: 09:01 Patient medically screened. cp 12:59 Differential diagnosis: contusion. Differential diagnosis: cardiac arrhythmia, CVA, jaxon generalized weakness, head injury, hypovolemia, idiopathic dizziness, TIA, vertigo. Data reviewed: vital signs, nurses notes, lab test result(s), EKG, radiologic studies, CT scan, doppler, plain films. Consideration of Admission/Observation Escalation of care including admission/observation considered. I considered the following discharge prescriptions or medication management in the emergency department Medications were administered in the Emergency Department. See MAR. Independent interpretation of the following test(s) in the Emergency Department EKG: See my EKG interpretation above. Test considered but Not performed: Ultrasound no 2 d echo. MRI: no mri brain. Care significantly affected by the following chronic conditions: Diabetes, Hypertension, gerd, a fib, cad, high lipids. Counseling: I had a detailed discussion with the patient and/or guardian regarding the historical points, exam findings, and any diagnostic results supporting the discharge/admit diagnosis, lab results, radiology results, the need for outpatient follow up. 13:06 ED course: dr corey smith, aspirin only. [facility] 02/14 09:18 Order name: Basic Metabolic Panel; Complete Time: 11:05 [facility] 02/14 09:18 Order name: CBC with Diff; Complete Time: 11:05 [facility] 02/14 09:18 Order name: LFT's; Complete Time: 11:05 [facility] 02/14 09:18 Order name: Magnesium; Complete Time: 11:05 jaxon 02/14 09:18 Order name: NT PRO-BNP; Complete Time: 11:05 jaxon 02/14 09:18 Order name: PT-INR; Complete Time: 11:05 [facility] 02/14 09:18 Order name: Troponin HS; Complete Time: 11:05 [facility] 02/14 09:18 Order name: Lipase; Complete Time: 11:05 [facility] 02/14 09:18 Order name: Urinalysis w/ reflexes; Complete Time: 11:05 [facility] 02/14 09:18 Order name: XRAY Chest (1 view); Complete Time: 11:05 [facility] 02/14 09:18 Order name: CT Head Brain wo Cont; Complete Time: 11:56 [facility] 02/14 09:18 Order name: CT Abd/Pelvis - IV Contrast Only; Complete Time: 11:56 jaxon 02/14 09:18 Order name: US Carotid Artery Bilateral; Complete Time: 11:56 [facility] 02/14 09:18 Order name: EKG; Complete Time: 09:19 [facility] 02/14 09:18 Order name: Cardiac monitoring; Complete Time: :23 [facility] 02/14 09:18 Order name: EKG - Nurse/Tech; Complete Time: 09:47 [facility] 02/14 09:18 Order name: IV Saline Lock; Complete Time: 09:47 [facility] 02/14 09:18 Order name: Labs collected and sent; Complete Time: :47 [facility] 02/14 09:18 Order name: O2 Per Protocol; Complete Time: :23 [facility] 02/14 09:18 Order name: O2 Sat Monitoring; Complete Time: : [facility] Administered Medications: 09:47 Drug: NS 0.9% IV 500 ml Route: IV; Rate: bolus; Site: left antecubital; ld1 09:47 Drug: NS 0.9% IV 1000 ml Route: IV; Rate: 125 ml/hr; Site: left antecubital; ld1 09:47 Drug: fentaNYL (PF) IVP 25 mcg Route: IVP; Site: left antecubital; ld1 09:47 Drug: Ondansetron IVP 4 mg Route: IVP; Site: left antecubital; ld1 12:59 Drug: Aspirin PO Chewable Tablet 81 mg Route: PO; ld1 Disposition Summary: 02/14/23 13:05 Discharge Ordered Location: Home jaxon Problem: new jaxon Symptoms: have improved jaxon Condition: Stable jaxon Diagnosis - Dizziness and giddiness jaxon - Persistent atrial fibrillation jaxon - Abdominal pain, unspecified jaxon Followup: jaxon - With: Private Physician - When: - Reason: Recheck today's complaints, Continuance of care, Re-evaluation by your physician Followup: jaxon - With: Juan Manuel Cruz MD - When: 2 - 3 days - Reason: Recheck today's complaints, Continuance of care, Re-evaluation by your physician Followup: jaxon - With: Dat Sagastume MD - When: 2 - 3 days - Reason: Recheck today's complaints, Continuance of care, Re-evaluation by your physician Discharge Instructions: - Discharge Summary Sheet jaxon - Abdominal Pain, Adult jaxon - Atrial Fibrillation jaxon - Dizziness jaxon - Aspirin and Your Heart jaxon - Atrial Fibrillation, [id number] jaxon Forms: - Medication Reconciliation Form jaxon - Thank You Letter jaxon - Antibiotic Education jaxon - Prescription Opioid Use [facility] - Patient Portal Instructions [facility] - Leadership Thank You Letter jaxon NIH Stroke Scale - NIH Stroke Score Date: 02/14/2023 Time: 12:51 Total Score = 0 10. Dysarthria (speech clarity - read or repeat words) - 0(Normal) 11. Extinction and Inattention (visual/tactile/auditory/spatial/personal) - 0(No abnormality) 1a. Level of Consciousness (LOC) - 0(Alert) 1b. Level of Consciousness (LOC) (Month \T\ Age) - 0(Both) 1c. LOC Commands (Open \T\ Closes Eyes/Mobile Patrol Officer) - 0(Both) 2. Best Gaze (Lateral Gaze Paresis) - 0(Normal) 3. Visual Field Loss - 0(No visual loss) 4. Facial Palsy - 0(Normal) 5a. Left Arm: Motor (10-second hold) - 0(No drift) 5b. Right Arm: Motor (10-second hold) - 0(No drift) 6a. Left Leg: Motor (5-second hold - always test supine) - 0(No drift) 6b. Right Leg: Motor (5-second hold - always test supine) - 0(No drift) 7. Limb Ataxia (finger/nose \T\ heel/clifford - test with eyes open) - 0(Absent) 8. Sensory Loss (pinprick arms/legs/face) - 0(Normal) 9. Best Language: Aphasia (description/naming/reading) - 0(No aphasia) Initials: [facility] Signatures: Dispatcher [employer] EDJalil Peters MD MD cha Page, Corey, PA PA cp Leal, Jahala RN RN jl7 Mague Solomon RN RN ld1
--- NOTE | 2023-02-14 13:06 | ER ---
Nurse's Notes [facility] Name: Dave Moreland Age: 83 yrs Sex: Male : 1940 Arrival Date: 02/14/2023 Time: 08:51 Bed 16 Private MD: Diagnosis: Dizziness and giddiness;Persistent atrial fibrillation;Abdominal pain, unspecified Presentation: 02/14 09:12 Chief complaint: Patient states: Rectal pain, bilateral hip pain, leg pain, abdominal jl7 pain and dizziness. Coronavirus screen: At this time, the client does not indicate any symptoms associated with coronavirus-19. Ebola Screen: No symptoms or risks identified at this time. Initial Sepsis Screen: Does the patient meet any 2 criteria? No. Patient's initial sepsis screen is negative. Does the patient have a suspected source of infection? No. Patient's initial sepsis screen is negative. Risk Assessment: Do you want to hurt yourself or someone else? Patient reports no desire to harm self or others. Onset of symptoms is unknown. 09:12 Method Of Arrival: Ambulatory jl7 09:12 Acuity: CLARK 3 jl7 Triage Assessment: 09:13 General: Appears in no apparent distress. uncomfortable, Behavior is calm, cooperative, jl7 appropriate for age. Pain: Complains of pain in buttocks, abdomen, right leg and left leg Pain currently is 10 out of 10 on a pain scale. Cardiovascular: Patient's skin is warm and dry. Respiratory: Airway is patent. Derm: Skin is pink, warm \T\ dry. Historical: - Allergies: 09:13 Codeine; jl7 - Home Meds: 09:13 escitalopram oxalate 10 mg Oral tablet daily [Active]; finasteride 5 mg Oral tablet jl7 [Active]; lisinopril 20 mg Oral tablet [Active]; metformin 1,000 mg Oral Tablet, Extended Release 24 hr 2 times per day [Active]; pantoprazole 40 mg Oral tablet, delayed release (enteric coated) [Active]; - PMHx: 09:13 Diabetes - NIDDM; GERD; Hyperlipidemia; Hypertension; Myocardial infarction; prostate jl7 problems; Atrial fibrillation; - PSHx: 09:13 cardiac stent x 7; Cholecystectomy; jl7 - Immunization history:: Adult Immunizations unknown. - Social history:: Smoking status: unknown. Screenin:30 [facility] ED Fall Risk Assessment (Adult) History of falling in the last 3 months, ld1 including since admission No falls in past 3 months (0 pts). Abuse screen: Denies threats or abuse. Denies injuries from another. Nutritional screening: No deficits noted. Tuberculosis screening: No symptoms or risk factors identified. Assessment: 10:30 Reassessment: See triage assessment. Pain: Complains of pain in left leg and right leg ld1 and abdomen and buttocks Pain does not radiate. Pain currently is 7 out of 10 on a pain scale. Quality of pain is described as throbbing. 10:30 Neuro: Level of Consciousness is awake, alert, obeys commands, Oriented to person, ld1 place, time, situation. Cardiovascular: Capillary refill < 3 seconds Patient's skin is warm and dry. Rhythm is sinus rhythm. Respiratory: Airway is patent Respiratory effort is even, unlabored. 13:23 Reassessment: Patient appears in no apparent distress at this time. No changes from ld1 previously documented assessment. Patient and/or family updated on plan of care and expected duration. Pain level reassessed. Patient is alert, oriented x 3, equal unlabored respirations, skin warm/dry/pink. Vital Signs: 09:12 BP 135 / 89; Pulse 76; Resp 17; Temp 98.7; Pulse Ox 100% ; Weight 84.82 kg; Height 5 jl7 ft. 10 in. ; Pain 10/10; 10:30 BP 131 / 92; Pulse 62; Resp 18; Pulse Ox 99% ; ld1 13:23 BP 136 / 88; Pulse 59; Resp 18; Pulse Ox 100% on R/A; Pain 3/10; ld1 09:12 Body Mass Index 26.83 (84.82 kg, 177.8 cm) jl7 09:12 Pain Scale: Adult jl7 13:23 Pain Scale: Adult ld1 [place] Coma Score: 12:51 Eye Response: spontaneous(4). Motor Response: obeys commands(6). Verbal Response: jaxon oriented(5). Total: 15. NIH Stroke Scale Scores: 12:51 NIHSS Score: 0 jaxon ED Course: 08:54 Patient arrived in ED. mr 09:00 Jalil Bradford PA is PHCP. cp 09:00 Jalil Silva MD is Attending Physician. cp 09:13 Triage completed. jl7 09:13 Arm band placed on right wrist. jl7 09:22 Mague Solomon, EVETTE is Primary Nurse. ld1 09:47 Urinalysis w/ reflexes Sent. ld1 09:47 Inserted saline lock: 20 gauge in left antecubital area, using aseptic technique. Blood ld1 collected. 10:30 Patient has correct armband on for positive identification. Placed in gown. Bed in low ld1 position. Call light in reach. Side rails up X2. volcanologist on. Pulse ox on. NIBP on. Door closed. Noise minimized. Warm blanket given. 10:30 No provider procedures requiring assistance completed. ld1 10:34 US Carotid Artery Bilateral In Process Unspecified. EDMS 10:42 XRAY Chest (1 view) In Process Unspecified. EDMS 10:44 CT Head Brain wo Cont In Process Unspecified. EDMS 10:54 CT Abd/Pelvis - IV Contrast Only In Process Unspecified. EDMS 13:04 Juan Manuel Cruz MD is Referral Physician. jaxon 13:04 Dat Sagastume MD is Referral Physician. jaxon 13:23 IV discontinued, intact, bleeding controlled, No redness/swelling at site. ld1 Administered Medications: 09:47 Drug: NS 0.9% IV 500 ml Route: IV; Rate: bolus; Site: left antecubital; ld1 09:47 Drug: NS 0.9% IV 1000 ml Route: IV; Rate: 125 ml/hr; Site: left antecubital; ld1 09:47 Drug: fentaNYL (PF) IVP 25 mcg Route: IVP; Site: left antecubital; ld1 09:47 Drug: Ondansetron IVP 4 mg Route: IVP; Site: left antecubital; ld1 12:59 Drug: Aspirin PO Chewable Tablet 81 mg Route: PO; ld1 Medication: 13:23 VIS not applicable for this client. ld1 Outcome: 13:05 Discharge ordered by . jaxon 13:23 Discharged to home ambulatory. ld1 13:23 Condition: stable 13:23 Discharge instructions given to patient, Instructed on discharge instructions, follow up and referral plans. Demonstrated understanding of instructions, follow-up care. 13:33 Patient left the ED. ld1 NIH Stroke Scale - NIH Stroke Score Date: 02/14/2023 Time: 12:51 Total Score = 0 10. Dysarthria (speech clarity - read or repeat words) - 0(Normal) 11. Extinction and Inattention (visual/tactile/auditory/spatial/personal) - 0(No abnormality) 1a. Level of Consciousness (LOC) - 0(Alert) 1b. Level of Consciousness (LOC) (Month \T\ Age) - 0(Both) 1c. LOC Commands (Open \T\ Closes Eyes/Warehouse Shipping Supervisor) - 0(Both) 2. Best Gaze (Lateral Gaze Paresis) - 0(Normal) 3. Visual Field Loss - 0(No visual loss) 4. Facial Palsy - 0(Normal) 5a. Left Arm: Motor (10-second hold) - 0(No drift) 5b. Right Arm: Motor (10-second hold) - 0(No drift) 6a. Left Leg: Motor (5-second hold - always test supine) - 0(No drift) 6b. Right Leg: Motor (5-second hold - always test supine) - 0(No drift) 7. Limb Ataxia (finger/nose \T\ heel/clifford - test with eyes open) - 0(Absent) 8. Sensory Loss (pinprick arms/legs/face) - 0(Normal) 9. Best Language: Aphasia (description/naming/reading) - 0(No aphasia) Initials: jaxon Signatures: Dispatcher [employer] Jalil Gaffney MD MD cha Rivera, Kyra mr Jalil Bradford PA PA cp Leal, Jahala, RN RN jl7 Mague Solomon RN RN ld1
[2023-02-14 13:48] VITALS: TEMP 98.7
[2023-02-14 13:59] VITALS: BP 136/88; O2SAT 100
--- NOTE | 2023-02-15 12:15 | EKG ---
Test Date: 2023-02-14 Test Time: 09:39:40 Bond Underwriter: TRAECY MEASUREMENT RESULTS: Intervals: Rate: 71 PA: QRSD: 98 QT: 402 QTc: 436 Ramona: P: PA: QRS: -68 T: 48 INTERPRETIVE STATEMENTS: Atrial fibrillation Left axis deviation Incomplete right bundle branch block Anterior infarct, age undetermined Abnormal ECG Compared to ECG 12/17/2022 21:14:43 No significant changes Electronically Signed On 02-15-23 12:12:46 CDT by Juan Manuel Cruz
== END 2023-02-14 13:33 | disposition home or self-care (01) ==
LOC: ER 08:51
DX: I48.19 Other persistent atrial fibrillation (principal); Z79.01 Long term (current) use of anticoagulants; R10.817 Generalized abdominal tenderness; E11.9 Type 2 diabetes mellitus without complications; I10 Essential (primary) hypertension; Z95.818 Presence of other cardiac implants and grafts; Z88.5 Allergy status to narcotic agent
CPT/HCPCS: 93005; 85025; 80048; 36415; 83735; 85610; 80076; 81003; 84484; 83690; 83880; 70450; 74177; 71045; 93880; 96375; 96374; 99285; Q9967; J3010; J2405; J7040; J7030

== ENCOUNTER 2023-04-14 13:59 | Emergency (ER) | payer OTHER ==
--- OUTSIDE RECORDS SUMMARY | 2023-04-14 14:17 | XMS REPORT | Continuity of Care Document ---
:1940 Author Organization [facility] t Address [address] [place] [address] [address] [place] [address] Care Team Providers Name Role Phone Evelin Wyatt Primary Care Physician FRANKLYN BAÑUELOS Attending Clinician Unavailable KAMRAN HUA K.H. Attending Clinician Unavailable MARY NARAYAN Attending Clinician Unavailable BEBE PAINTING Attending Clinician Unavailable MEET LUDWIG Attending Clinician Unavailable MEET LUDWIG Attending Clinician Unavailable KAYLIE HUA Attending Clinician Unavailable EVELIN COLMENARES Attending Clinician Unavailable LIBORIO CHAVARRIA Attending Clinician Unavailable Kaylie Hua MD Attending Clinician Franklyn Bañuelos MD Attending Clinician Evelin Wyatt Attending Clinician Bebe Dodd Attending Clinician Heather Henry MD Attending Clinician HEATHER HENRY Attending Clinician Unavailable HEATHER HENRY Attending Clinician Unavailable Melita FOX, Kamran K.H. Attending Clinician Doctor Unassigned, [place] Attending Clinician Unavailable ALCON OLIVA Attending Clinician Unavailable Alcon Oliva DO Attending Clinician ROWDY ENRIQUE Attending Clinician Unavailable Klaus MATERIALS BRANCH CHIEFRowdy Fulton Attending Clinician Unknown, Attending Attending Clinician Unavailable Lab, Ang - Db Attending Clinician Unavailable Marline MET[employer]ODU[employer] VIEWER Jayden S Attending Clinician Unavailable Keon Scherer MD Attending Clinician JAVIER MORRIS Attending Clinician Unavailable Morris PACOrvilleya S Attending Clinician Kenn Christine MD Attending Clinician Po, [facility] Lab Main Attending Clinician Unavailable FADUMO MCNAMARA Attending Clinician Unavailable Fadumo Mcnamara MD Attending Clinician HALEY CAMEJO Attending Clinician Unavailable Haley Camejo MD Attending Clinician Nehal Del Real MD Attending Clinician [facility] Surg Spec Procedure Attending Clinician Unavailable Nurse, [facility] Surgery Gu Attending Clinician Unavailable Elinor Jimenez MD Attending Clinician ELINOR JIMENEZ Attending Clinician Unavailable ELINOR JIMENEZ Attending Clinician Unavailable GEE BLOUNT Attending Clinician Unavailable GEE BLOUNT Attending Clinician Unavailable Gee Blount MD Attending Clinician EbLuz Maria Arriaga Attending Clinician LUZ MARIA BERRY Attending Clinician Unavailable Tamera Díaz Attending Clinician RADIOLOGY Attending Clinician Unavailable TAMERA ACEVEDO Attending Clinician Unavailable Km Newton RN Attending Clinician Unavailable PONCHO NOBLES Attending Clinician Unavailable PONCHO NOBLES Attending Clinician Unavailable Jorge Timmons Attending Clinician NESTOR SALDAÑA III Attending Clinician Unavailable NEHAL DEL REAL Attending Clinician Unavailable GISSELLE DURHAM Attending Clinician Unavailable Karlie Jim MD Attending Clinician FLORENTIN THAPA Attending Clinician Unavailable Angeles MATERIALS BRANCH CHIEF, Florentin B Attending Clinician Nurse, [facility] Attending Clinician Unavailable Shyanne Bland MD Attending Clinician SHYANNE BLAND Attending Clinician Unavailable SHYANNE BLAND Attending Clinician Unavailable Tech, [facility] Attending Clinician Unavailable Only, [facility] Test Attending Clinician Unavailable ACE COLE Attending Clinician Unavailable Douglas ROMERO, Ace Attending Clinician KARLIE JIM Attending Clinician Unavailable CHUCKIE SHEEHAN Attending Clinician Unavailable ANYI DE SANTIAGO Attending Clinician Unavailable KAYLIE AHUMADA Attending Clinician Unavailable CINDY MTZ Attending Clinician Unavailable ZARA YBARRA Attending Clinician Unavailable ORIN MCNAMARA Attending Clinician Unavailable FRANKLYN BAÑUELOS Admitting Clinician Unavailable MELITA, SENDIL K.H. Admitting Clinician Unavailable MARY NARAYAN Admitting Clinician Unavailable ALCON OLIVA Admitting Clinician Unavailable JAVIER MORRIS Admitting Clinician Unavailable Melita FOX, Sendil K.H. Admitting Clinician PONCHO NOBLES Admitting Clinician Unavailable FLORENTIN THAPA B Admitting Clinician Unavailable ELINOR JIMENEZ Admitting Clinician Unavailable NEHAL DEL REAL Admitting Clinician Unavailable Payers Payer Name Policy Type Policy Number Effective Date Expiration Date Saloni gill MEDICARE PART A [id number] 2004 \\T\\ B 00:00:00 [employer] [id number] 2016 00:00:00 Problems Condition Condition Condition Status Onset Resolution Last Treating Co mments Source Name Details Category Date Date Treatment Clinician Date Constipati Constipati Disease Active 2022-06 U nivers on due to on due to 0-19 ity of slow slow 00:00: [place] [facility] transit 00 Medical Branch Fissure in Fissure in Disease Active 2022-06 U nivers ano ano 0-19 ity of 00:00: [place] 00 Medical Branch Urinary Urinary Disease Active Overview: Univ ers frequency frequency 4-11 Formattin i ty of 00:00: g of this [place] 00 note Medical might be Branch different from the original. Added automatic ally from request for surgery [id number] Benign Benign Disease Active Overview: Univer s prostatic prostatic 4-11 Formattin i ty of hyperplasi hyperplasi 00:00: g of this [place] a with a with 00 note Medical lower lower might be Branch urinary urinary different tract tract from the symptoms, symptoms, original. symptom symptom Added details details automatic unspecifie unspecifie ally from d d request for surgery [id number] Dyslipidem Dyslipidem Disease Active Overview : Univers ia ia 11-18 Formattin ity of 00:00: g of this [place] 00 note Medical might be Branch different from the original. Added automatic ally from request for surgery [id number] RAZO RAZO Disease Active Overview: Univer s (dyspnea (dyspnea 11-18 Formattin ity of on on 00:00: g of this [place] exertion) exertion) 00 note Medi monika might be Branch different from the original. Added automatic ally from request for surgery [id number] Atypical Atypical Disease Active Overview: Un nyla chest pain chest pain 11-18 Formattin ity of 00:00: g of this [place] 00 note Medical might be Branch different from the original. Added automatic ally from request for surgery [id number] Anginal Anginal Disease Active Overview: Univ ers equivalent equivalent 11-18 Formattin ity of 00:00: g of this [place] 00 note Medical might be Branch different from the original. Added automatic ally from request for surgery [id number] Acute Acute Disease Active Univers cardioembo cardioembo [...] Disease Active Overview : Univers ent ent -24 Formattin ity of bilateral bilateral 00:00: [place] inguinal inguinal 00 note Medica l hernia hernia might be Branch without without different obstructio obstructio from the n or n or original. gangrene gangrene Added automatic ally from request for surgery [id number] Acute Acute Disease Active Univers pancreatit pancreatit 3-01 it y of is is 00:00: [place] [facility] COVID-19 COVID-19 Disease Active Unive rs 2-01 ity of 00:00: [place] [address] Medical Branch Greater Greater Disease Active Overview: Univ ers trochanter trochanter 11-27 Formattin ity of ic ic 00:00: g of this [place] bursitis bursitis 00 note Medica l of left of left might be Branch hip hip different from the original. Added automatic ally from request for surgery [id number] SI SI Disease Active Overview: Univer s (sacroilia (sacroilia 11-27 Formattin ity of c) joint c) joint 00:00: g of this [place] Armando as dysfunctio dysfunctio 00 note Me dical n n might be Branch different from the original. 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 7-02 it y of s s 00:00: [place] [facility] Degenerati Degenerati Disease Active U nivers on of on of 6-03 ity of lumbar lumbar 00:00: [place] interverte interverte 00 Me dical bral disc bral disc Bran ch Lumbar Lumbar Disease Active Univers radiculopa radiculopa 6-03 it y of thy thy 00:00: [place] [facility] Myofascial Myofascial Disease Active 2019 U nivers pain pain 6-03 ity of 00:00: [place] [address] Medical Branch Elevated Elevated Disease Active Unive rs sed rate sed rate 4-17 ity of 00:00: [place] [facility] Low Low Disease Active Univers ferritin ferritin 3-27 ity of 00:00: [place] 00 Medical Branch Type 2 Type 2 [...] 2017-06 Unive rs 2-26 ity of 00:00: [place] [facility] Dizziness Dizziness Disease Active 2017-06 Uni vers 2-26 ity of 00:00: [place] 00 Medical Branch Coronary Coronary Disease Active 2017-06 Unive rs artery artery 2-26 ity of disease disease 00:00: [place] involving involving 00 Medi monika [place] coronary coronary artery of artery of [place] heart heart without without angina angina pectoris [...] 00:00: [place] involving involving 00 Medi monika [place] Branch coronary coronary artery of artery of [place] heart heart without without angina angina pectoris [...] Uni vers 1-05 ity of 00:00: [place] [facility] Vitiligo Vitiligo Disease Active Unive rs 1-05 ity of 00:00: [place] 00 Medical Branch Low Low Disease Active Univers testostero testostero 1-05 it y of ne ne 00:00: [place] 00 Medical Branch Statin Statin Disease Active Univers intoleranc intoleranc 2-17 it y of e e 00:00: [place] 00 Medical Branch Diabetic Diabetic Disease Active Overview: Un nyla polyneurop polyneurop 3- Formattin ity of athbonnie herreray 00:00: g of this [place] associated associated 00 note is M anne with type with type different B ranch [...] Status Never Smoker Smokeless Tobacco Never Used [facility] Status Date Diabetic Eye [...] Occlusion Disease Active Overview: Univers and and 3 Formattin ity of stenosis stenosis 00:00: g of this [place] Armando as of of note Medical unspecifie unspecifie might be Branch d carotid d carotid different artery artery from the original. Overview: Converted from [facility] y:Descrip tion - CAROTID ARTERY STENOSIS Anxiety Anxiety Disease Active Univers ity of [place] [facility] [place] Allergies, Adverse Reactions, Alerts Allergy Allergy Status Severity Reaction(s) Onset Inactive Treating Comm ents Source Name Type Date Date Clinician DOXYCYCL DRUG Active N/V Univers INE INGREDI 02-15 ity of MONOHYDR 00:00: [place] ATE 00 Medical Branch Doxycycl Propensi Active Nausea Univer s ine ty to and/or 02-15 ity of Monohydr adverse Vomiting 00:00: [place] ate reaction 00 Medical s Branch Ibuprofe Propensi Active Nausea Patient Unive rs n ty to and/or 06-28 notes hx ity of adverse Vomiting 00:00: of [place] reaction stentsAbd Medic al s ominal Branch discomfor t when taking ibuprofen IBUPROFE DRUG Active N/V Univers N INGREDI 06-28 ity of 00:00: [place] 00 Medical Branch Glimepir Propensi Active Anxiety Unive rs lucia ty to 2- ity of adverse 00:00: [place] reaction Medical s Branch GLIMEPIR DRUG Active Anxiety Univers LUCIA INGREDI 2- ity of 00:00: [place] 00 [...] Propensi Active Rash 2017-06 Univers ty to 2- ity of adverse 00:00: [place] reaction 00 Medical s Branch CODEINE DRUG Active Rash 2017-06 Univers INGREDI 2- ity of 00:00: [place] 00 Medical Branch Canaglif Propensi Active Other - See Genital Univers lozin ty to comments 7- mycotic ity of adverse 00:00: infection [place] reaction 00 s Medical s Branch CANAGLIF DRUG Active Other-Cmnt Univ ers LOZIN INGREDI 7- ity of 00:00: [place] 00 Medical Branch Social History Social Habit Start Date Stop Date Quantity Comments Source Gender identity Universit y [facility] Sexual orientation Univer sity [facility] Alcohol intake 2023-04-08 2023-04-08 Current University of 00:00:00 00:00:00 non-drinker of [facility] alcohol Branch (finding) Exposure to 2022-09-19 2022-09-29 Not sure University SARS-CoV-2 (event) 00:00:00 10:55:00 [place] [facility] History of Social 2022-09-17 2022-09-17 Univers ity of function 00:00:00 00:00:00 [place] [facility] Tobacco use and 2021-12-30 2021-12-30 Smokeless Universit y of exposure 00:00:00 00:00:00 tobacco non-user [facility] Sex Ass[birth year] At [birth year] Univers y of 00:00:00 00:00:00 [place] [facility] Smoking Status Start Date Stop Date Source Never smoked tobacco [facility] Medications Ordered Filled Start Stop Current Ordering Indication Dosage Frequency Signature Comments Components Source Medication Medication Date Date Medication? Clinician (SIG) Name Name blood sugar 2022-06 Yes Use as Univ ers diagnostic 0-16 directed, ity of (ONETOUCH 00:00[place] ULTRA TEST[place] 00 to monitor Me dical strip blood Branch glucose for ICD code E11.9 blood sugar 2022-06 Yes Use as Univ ers diagnostic 0-16 directed, ity of (ONETOUCH 00:00: [place] ULTRA TEST[place] 00 to monitor Me dical strip blood Branch glucose for ICD code E11.9 blood sugar 2022-06 Yes Use as Univ ers diagnostic 0-16 directed, ity of (ONETOUCH 00:00: [place] ULTRA TEST[place] 00 to monitor Me dical strip blood Branch glucose for ICD code E11.9 blood sugar 2022-06 Yes Use as Univ ers diagnostic 0-16 directed, ity of (ONETOUCH 00:00: [place] ULTRA TEST[place] 00 to monitor Me dical strip blood Branch glucose for ICD code E11.9 blood sugar 2022-06 Yes Use as Univ ers diagnostic 0-16 directed, ity of (ONETOUCH 00:00: [place] ULTRA TEST[place] 00 to monitor Me dical strip blood Branch glucose for ICD code E11.9 blood sugar 2022-06 Yes Use as Univ ers diagnostic 0-16 directed, ity of (ONETOUCH 00:00: [place] ULTRA TEST) 00 to monitor Me dical strip blood Branch glucose for ICD code E11.9 blood sugar 2022-06 Yes Use as Univ ers diagnostic 0-16 directed, ity of (ONETOUCH 00:00: [place] ULTRA TEST) 00 to monitor Me dical strip blood Branch glucose for ICD code E11.9 blood sugar 2022-06 Yes Use as Univ ers diagnostic 0-16 directed, ity of (ONETOUCH 00:00: [place] ULTRA TEST) 00 to monitor Me dical strip blood Branch glucose for ICD code E11.9 finasteride 2022-06- No [id number] 5mg Take 1 Univers 5 mg tablet 0-11 10-11 tablet by it y of 00:00: 00:00 mouth in [place] 00 :00 the Medical morning. Branch finasteride 2022-06- No [id number] 5mg Take 1 Univers 5 mg tablet 0-11 10-11 tablet by it y of 00:00: 00:00 mouth in [place] 00 :00 the Medical morning. Branch aspirin 2023-0 Yes 81mg Take 1 Univers (ADULT LOW 9-28 tablet by ity of DOSE 09:26: mouth in [place] ASPIRIN) 81 33 the Medical mg EC morning. Branch tablet metFORMIN 2023-0 Yes 1000mg Take 2 Univ ers 500 mg 9-28 tablets by ity of tablet 09:26: mouth in [place] 33 the Medical morning Branch and 2 tablets in the evening. Take with meals. aspirin 2023-0 Yes 81mg Take 1 Univers (ADULT LOW 9-28 tablet by ity of DOSE 09:26: mouth in [place] ASPIRIN) 81 33 the Medical mg EC morning. Branch tablet metFORMIN 2023-0 Yes 1000mg Take 2 Univ ers 500 mg 9-28 tablets by ity of tablet 09:26: mouth in [place] [address] the Medical morning Branch and 2 tablets in the evening. Take with meals. aspirin 2023-0 Yes 81mg Take 1 Univers (ADULT LOW 9-28 tablet by ity of DOSE 09:26: mouth in [place] ASPIRIN) 81 33 the Medical mg EC morning. Branch tablet metFORMIN 2023-0 Yes 1000mg Take 2 Univ ers 500 mg 9-28 tablets by ity of tablet 09:26: mouth in [place] 33 the Medical morning Branch and 2 tablets in the evening. Take with meals. aspirin 2023-0 Yes 81mg Take 1 Univers (ADULT LOW 9-28 tablet by ity of DOSE 09:26: mouth in [place] ASPIRIN) 81 33 the Medical mg EC morning. Branch tablet aspirin 2023-0 Yes 81mg Take 1 Univers (ADULT LOW 9-28 tablet by ity of DOSE 09:26: mouth in [place] ASPIRIN) 81 33 the Medical mg EC morning. Branch tablet aspirin 2023-0 Yes 81mg Take 1 Univers (ADULT LOW 9-28 tablet by ity of DOSE 09:26: mouth in [place] ASPIRIN) 81 33 the Medical mg EC morning. Branch tablet metFORMIN 2023-0 Yes 1000mg Take 2 Univ ers 500 mg 9-28 tablets by ity of tablet 09:26: mouth in [place] [address] the Medical morning Branch and 2 tablets in the evening. Take with meals. aspirin 2023-0 Yes 81mg Take 1 Univers (ADULT LOW 9-28 tablet by ity of DOSE 09:26: mouth in [place] ASPIRIN) 81 33 the Medical mg EC morning. Branch tablet metFORMIN 2023-0 Yes 1000mg Take 2 Univ ers 500 mg 9-28 tablets by ity of tablet 09:26: mouth in [place] [address] the Medical morning Branch and 2 tablets in the evening. Take with meals. aspirin 2023-0 Yes 81mg Take 1 Univers (ADULT LOW 9-28 tablet by ity of DOSE 09:26: mouth in [place] ASPIRIN) 81 33 the Medical mg EC morning. Branch tablet metFORMIN 2023-0 Yes 1000mg Take 2 Univ ers 500 mg 9-28 tablets by ity of tablet 09:26: mouth in [place] [address] the Medical morning Branch and 2 tablets in the evening. Take with meals. aspirin 2023-0 Yes 81mg Take 1 Univers (ADULT LOW 9-28 tablet by ity of DOSE 09:26: mouth in [place] ASPIRIN) 81 33 the Medical mg EC morning. Branch tablet metFORMIN 2023-0 Yes 1000mg Take 2 Univ ers 500 mg 9-28 tablets by ity of tablet 09:26: mouth in [place] [address] the Medical morning Branch and 2 tablets in the evening. Take with meals. aspirin 2023-0 Yes 81mg Take 1 Univers (ADULT LOW 9-28 tablet by ity of DOSE 09:26: mouth in [place] ASPIRIN) 81 33 the Medical mg EC morning. Branch tablet metFORMIN 2023-0 Yes 1000mg Take 2 Univ ers 500 mg 9-28 tablets by ity of tablet 09:26: mouth in [place] [address] the Medical morning Branch and 2 tablets in the evening. Take with meals. aspirin 2023-0 Yes 81mg Take 1 Univers (ADULT LOW 9-28 tablet by ity of DOSE 09:26: mouth in [place] ASPIRIN) 81 33 the Medical mg EC morning. Branch tablet metFORMIN 2023-0 Yes 1000mg Take 2 Univ ers 500 mg 9-28 tablets by ity of tablet 09:26: mouth in [place] 33 the Medical morning Branch and 2 tablets in the evening. Take with meals. aspirin 2023-0 Yes 81mg Take 1 Univers (ADULT LOW 9-28 tablet by ity of DOSE 09:26: mouth in [place] ASPIRIN) 81 33 the Medical mg EC morning. Branch tablet metFORMIN 2023-0 Yes 1000mg Take 2 Univ ers 500 mg 9-28 tablets by ity of tablet 09:26: mouth in [place] [address] the Medical morning Branch and 2 tablets in the evening. Take with meals. aspirin 2023-0 Yes 81mg Take 1 Univers (ADULT LOW 9-28 tablet by ity of DOSE 09:26: mouth in [place] ASPIRIN) 81 33 the Medical mg EC morning. Branch tablet metFORMIN 2023-0 Yes 1000mg Take 2 Univ ers 500 mg 9-28 tablets by ity of tablet 09:26: mouth in [place] [address] the Medical morning Branch and 2 tablets in the evening. Take with meals. aspirin 2023-0 Yes 81mg Take 1 Univers (ADULT LOW 9-28 tablet by ity of DOSE 09:26: mouth in [place] ASPIRIN) 81 33 the Medical mg EC morning. Branch tablet metFORMIN 2023-0 Yes 1000mg Take 2 Univ ers 500 mg 9-28 tablets by ity of tablet 09:26: mouth in [place] [address] the Medical morning Branch and 2 tablets in the evening. Take with meals. aspirin 2023-0 Yes 81mg Take 1 Univers (ADULT LOW 9-28 tablet by ity of DOSE 09:26: mouth in [place] ASPIRIN) 81 33 the Medical mg EC morning. Branch tablet metFORMIN 2023-0 Yes 1000mg Take 2 Univ ers 500 mg 9-28 tablets by ity of tablet 09:26: mouth in [place] [address] the Medical morning Branch and 2 tablets in the evening. Take with meals. aspirin 2023-0 Yes 81mg Take 81 mg Univ ers (ADULT LOW 9-20 by mouth ity o f DOSE 14:12: daily. [place] ASPIRIN) 81 08 Medical mg EC Branch tablet aspirin 2023-0 Yes 81mg Take 81 mg Univ ers (ADULT LOW 9-20 by mouth ity o f DOSE 14:12: daily. [place] ASPIRIN) 81 08 Medical mg EC Branch tablet apixaban 2022-0 Yes 1358 5mg Take 1 Univers (ELIQUIS) 5 8-28 tablet by ity of mg tablet 00:00: [place] the Medical morning Branch and 1 tablet in the evening. Indication s: atrial fibrillati on blood sugar 0 Yes Use as Univ ers diagnostic 8 directed, ity of (BLOOD 00:00: once a day [place] GLUCOSE 00 to monitor Medica l TEST) strip blood Branch glucose for ICD code E11.9 Blood-Gluco 2022-0 Yes Use as Univ ers se Meter 828 directed, ity of Kit 00:00: once a day [place] 00 to monitor Medical blood Branch glucose for ICD code E11.9 Lancets 0 Yes Use as Univers Misc 8 directed, ity of 00:00: once a day [place] 00 to monitor Medical blood Branch glucose for ICD code E11.9 apixaban 2022-0 Yes 1358 5mg Take 1 Univers (ELIQUIS) 5 - tablet by ity of mg tablet 00:00: [place] the Medical morning Branch and 1 tablet in the evening. Indication s: atrial fibrillati on blood sugar 0 Yes Use as Univ ers diagnostic 828 directed, ity of (BLOOD 00:00: once a day [place] GLUCOSE 00 to monitor Medica l TEST) strip blood Branch glucose for ICD code E11.9 Blood-Gluco 2022-0 Yes Use as Univ ers se Meter 828 directed, ity of Kit 00:00: once a day [place] 00 to monitor Medical blood Branch glucose for ICD code E11.9 Lancets 0 Yes Use as Univers Misc 8 directed, ity of 00:00: once a day [place] 00 to monitor Medical blood Branch glucose for ICD code E11.9 apixaban 2022-0 Yes 1358 5mg Take 1 Univers (ELIQUIS) 5 8-28 tablet by ity of mg tablet 00:00: [place] the Medical morning Branch and 1 tablet in the evening. Indication s: atrial fibrillati on blood sugar 0 Yes Use as Univ ers diagnostic 828 directed, ity of (BLOOD 00:00: once a day [place] GLUCOSE 00 to monitor Medica l TEST) strip blood Branch glucose for ICD code E11.9 Blood-Gluco 2022-0 Yes Use as Univ ers se Meter 8-28 directed, ity of Kit 00:00: once a day [place] 00 to monitor Medical blood Branch glucose for ICD code E11.9 Lancets 2022-0 Yes Use as Univers Misc 8-28 directed, ity of 00:00: once a day [place] 00 to monitor Medical blood Branch glucose for ICD code E11.9 apixaban 2022-0 Yes 1358 5mg Take 1 Univers (ELIQUIS) 5 8-28 tablet by ity of mg tablet 00:00: [place] the Medical morning Branch and 1 tablet in the evening. Indication s: atrial fibrillati on blood sugar 0 Yes Use as Univ ers diagnostic 8-28 directed, ity of (BLOOD 00:00: once a day [place] GLUCOSE 00 to monitor Medica l TEST) strip blood Branch glucose for ICD code E11.9 Blood-Gluco 2022-0 Yes Use as Univ ers se Meter 8-28 directed, ity of Kit 00:00: once a day [place] 00 to monitor Medical blood Branch glucose for ICD code E11.9 Lancets 0 Yes Use as Univers Misc 828 directed, ity of 00:00: once a day [place] 00 to monitor Medical blood Branch glucose for ICD code E11.9 apixaban 2022-0 Yes 1358 5mg Take 1 Univers (ELIQUIS) 5 8-28 tablet by ity of mg tablet 00:00: [place] the Medical morning Branch and 1 tablet in the evening. Indication s: atrial fibrillati on blood sugar 0 Yes Use as Univ ers diagnostic 8-28 directed, ity of (BLOOD 00:00: once a day [place] GLUCOSE 00 to monitor Medica l TEST) strip blood Branch glucose for ICD code E11.9 Blood-Gluco 2022-0 Yes Use as Univ ers se Meter 8-28 directed, ity of Kit 00:00: once a day [place] 00 to monitor Medical blood Branch glucose for ICD code E11.9 Lancets 2022-0 Yes Use as Univers Misc 8-28 directed, ity of 00:00: once a day [place] 00 to monitor Medical blood Branch glucose for ICD code E11.9 apixaban 2022-0 Yes 1358 5mg Take 1 Univers (ELIQUIS) 5 8-28 tablet by ity of mg tablet 00:00: [place] 00 the Medical morning Branch and 1 tablet in the evening. Indication s: atrial fibrillati on blood sugar 2022-0 Yes Use as Univ ers diagnostic 8-28 directed, ity of (BLOOD 00:00: once a day [place] GLUCOSE 00 to monitor Medica l TEST) strip blood Branch glucose for ICD code E11.9 Blood-Gluco 2022-0 Yes Use as Univ ers se Meter 8-28 directed, ity of Kit 00:00: once a day [place] 00 to monitor Medical blood Branch glucose for ICD code E11.9 apixaban 2022-0 Yes 1358 5mg Take 1 Univers (ELIQUIS) 5 8-28 tablet by ity of mg tablet 00:00: [place] the Medical morning Branch and 1 tablet in the evening. Indication s: atrial fibrillati on blood sugar Yes Use as Univ ers diagnostic 8-28 directed, ity of (BLOOD 00:00: once a day [place] GLUCOSE 00 to monitor Medica l TEST) strip blood Branch glucose for ICD code E11.9 Blood-Gluco 2022-0 Yes Use as Univ ers se Meter 8-28 directed, ity of Kit 00:00: once a day [place] 00 to monitor Medical blood Branch glucose for ICD code E11.9 apixaban 2022-0 Yes 1358 5mg Take 1 Univers (ELIQUIS) 5 8-28 tablet by ity of mg tablet 00:00: [place] 00 the Medical morning Branch and 1 tablet in the evening. Indication s: atrial fibrillati on blood sugar 0 Yes Use as [facility] ers diagnostic 8-28 directed, ity of (BLOOD 00:00: once a day [place] GLUCOSE 00 to monitor Medica l TEST) strip blood Branch glucose for ICD code E11.9 Blood-Gluco 2022-0 Yes Use as Univ ers se Meter 8-28 directed, ity of Kit 00:00: once a day [place] 00 to monitor Medical blood Branch glucose for ICD code E11.9 apixaban 2022-0 Yes 1358 5mg Take 1 [facility] (ELIQUIS) 5 8-28 tablet by ity of mg tablet 00:00: [place] 00 the Medical morning Branch and 1 tablet in the evening. Indication s: atrial fibrillati on blood sugar 2022-0 Yes Use as [facility] ers diagnostic 8-28 directed, ity of (BLOOD 00:00: once a day [place] GLUCOSE 00 to monitor Medica l TEST) strip blood Branch glucose for ICD code E11.9 Blood-Gluco 2022-0 Yes Use as Univ ers se Meter 828 directed, ity of Kit 00:00: once a day [place] 00 to monitor Medical blood Branch glucose for ICD code E11.9 apixaban 2022-0 Yes 1358 5mg Take 1 [facility] (ELIQUIS) 5 8-28 tablet by [facility] of mg tablet 00:00: [place] 00 the Medical morning Branch and 1 tablet in the evening. Indication s: atrial fibrillati on blood sugar 2022-0 Yes Use as [facility] ers diagnostic 8-28 directed, ity of (BLOOD 00:00: once a day [place] GLUCOSE 00 to monitor Medica l TEST) strip blood Branch glucose for ICD code E11.9 Blood-Gluco 2022-0 Yes Use as [facility] ers se Meter 828 directed, ity of Kit 00:00: once a day [place] 00 to monitor Medical blood Branch glucose for ICD code E11.9 apixaban 2022-0 Yes 1358 5mg Take 1 [facility] (ELIQUIS) 5 8-28 tablet by [facility]y of mg tablet 00:00: [place] 00 the Medical morning Branch and 1 tablet in the evening. Indication s: atrial fibrillati on blood sugar 2022-0 Yes Use as [facility] ers diagnostic 828 directed, ity of (BLOOD 00:00: once a day [place] GLUCOSE 00 to monitor Medica l TEST) strip blood Branch glucose for ICD code E11.9 Blood-Gluco 2022-0 Yes Use as [facility] ers se Meter 828 directed, ity of Kit 00:00: once a day [place] 00 to monitor Medical blood Branch glucose for ICD code E11.9 apixaban 2022-0 Yes 1358 5mg Take 1 [facility] (ELIQUIS) 5 8-28 tablet by [facility] of mg tablet 00:00: [place] 00 the Medical morning Branch and 1 tablet in the evening. Indication s: atrial fibrillati on blood sugar 2022-0 Yes Use as [facility] ers diagnostic 8-28 directed, ity of (BLOOD 00:00: once a day [place] GLUCOSE 00 to monitor Medica l TEST) strip blood Branch glucose for ICD code E11.9 Blood-Gluco 2022-0 Yes Use as [facility] ers se Meter 8-28 directed, ity of Kit 00:00: once a day [place] 00 to monitor Medical blood Branch glucose for ICD code E11.9 apixaban 2022-0 Yes 1358 5mg Take 1 [facility] (ELIQUIS) 5 8-28 tablet by ity of mg tablet 00:00: [place] 00 the Medical morning Branch and 1 tablet in the evening. Indication s: atrial fibrillati on blood sugar 0 Yes Use as [facility] ers diagnostic 8-28 directed, ity of (BLOOD 00:00: once a day [place] GLUCOSE 00 to monitor Medica l TEST) strip blood Branch glucose for ICD code E11.9 Blood-Gluco 2022-0 Yes Use as [facility] ers se Meter 8-28 directed, ity of Kit 00:00: once a day [place] 00 to monitor Medical blood Branch glucose for ICD code E11.9 Lancets 0 Yes Use as [facility] Misc 8-28 directed, ity of 00:00: once a day [place] 00 to monitor Medical blood Branch glucose for ICD code E11.9 apixaban 2022-0 Yes 1358 5mg Take 1 [facility] (ELIQUIS) 5 8-28 tablet by ity of mg tablet 00:00: [place] 00 the Medical morning Branch and 1 tablet in the evening. Indication s: atrial fibrillati on blood sugar 0 Yes Use as [facility] ers diagnostic 8-28 directed, ity of (BLOOD 00:00: once a day [place] GLUCOSE 00 to monitor Medica l TEST) strip blood Branch glucose for ICD code E11.9 Blood-Gluco 2022-0 Yes Use as [facility] ers se Meter 8-28 directed, ity of Kit 00:00: once a day [place] 00 to monitor Medical blood Branch glucose for ICD code E11.9 Lancets 2022-0 Yes Use as [facility] Misc 8-28 directed, ity of 00:00: once a day [place] 00 to monitor Medical blood Branch glucose for ICD code E11.9 apixaban 2022-0 Yes 1358 5mg Take 1 [facility] (ELIQUIS) 5 8-28 tablet by ity of mg tablet 00:00: mouth [place] 00 the Medical morning Branch and 1 tablet in the evening. Indication s: atrial fibrillati on blood sugar 2023-0 Yes Use as [facility] ers diagnostic 8-28 directed, ity of (BLOOD 00:00: once a day [place] GLUCOSE 00 to monitor Medica l TEST) strip blood Branch glucose for ICD code E11.9 Blood-Gluco 2022-0 Yes Use as [facility] ers se Meter 828 directed, ity of Kit 00:00: once a day [place] 00 to monitor Medical blood Branch glucose for ICD code E11.9 Lancets 2022-0 Yes Use as [facility] Misc 8-28 directed, ity of 00:00: once a day [place] 00 to monitor Medical blood Branch glucose for ICD code E11.9 apixaban 2022-0 Yes 1358 5mg Take 1 [facility] (ELIQUIS) 5 8-28 tablet by ity of mg tablet 00:00: [place] 00 the Medical morning Branch and 1 tablet in the evening. Indication s: atrial fibrillati on blood sugar 0 Yes Use as [facility] ers diagnostic 8-28 directed, ity of (BLOOD 00:00: once a day [place] GLUCOSE 00 to monitor Medica l TEST) strip blood Branch glucose for ICD code E11.9 Blood-Gluco 2022-0 Yes Use as [facility] ers se Meter 828 directed, ity of Kit 00:00: once a day [place] 00 to monitor Medical blood Branch glucose for ICD code E11.9 Lancets 2022-0 Yes Use as [facility] Misc 828 directed, ity of 00:00: once a day [place] 00 to monitor Medical blood Branch glucose for ICD code E11.9 apixaban 2022-0 Yes 1358 5mg Take 1 [facility] (ELIQUIS) 5 8-28 tablet by ity of mg tablet 00:00: mouth [place] 00 the Medical morning Branch and 1 tablet in the evening. Indication s: atrial fibrillati on blood sugar 2022-0 Yes Use as [facility] ers diagnostic 8-28 directed, ity of (BLOOD 00:00: once a day [place] GLUCOSE 00 to monitor Medica l TEST) strip blood Branch glucose for ICD code E11.9 Blood-Gluco 2022-0 Yes Use as [facility] ers se Meter 8-28 directed, ity of Kit 00:00: once a day [place] 00 to monitor Medical blood Branch glucose for ICD code E11.9 Lancets 2022-0 Yes Use as [facility] Misc 8-28 directed, ity of 00:00: once a day [place] 00 to monitor Medical blood Branch glucose for ICD code E11.9 apixaban 2022-0 Yes 1358 5mg Take 1 [facility] (ELIQUIS) 5 02-15 tablet by ity of mg tablet 00:00: mouth [place] 00 the Medical morning Branch and 1 tablet in the evening. Indication s: atrial fibrillati on blood sugar Yes Use as [facility] ers diagnostic 02-15 directed, ity of (BLOOD 00:00: once a day [place] GLUCOSE 00 to monitor Medica l TEST) strip blood Branch glucose for ICD code E11.9 Blood-Gluco Yes Use as [facility] ers se Meter 02-15 directed, ity of Kit 00:00: once a day [place] 00 to monitor Medical blood Branch glucose for ICD code E11.9 Lancets 0 Yes Use as [facility] Misc 02-15 directed, ity of 00:00: once a day [place] 00 to monitor Medical blood Branch glucose for ICD code E11.9 Lancets 2022-0 2022- No Use as [facility] Misc 8-28 04-08 directed, ity of 00:00: 00:00 once a day [place] 00 :00 to monitor Medical blood Branch glucose for ICD code E11.9 Lancets 2022-0 2022- No Use as [facility] Misc 828 04-08 directed, ity of 00:00: 00:00 once a day [place] 00 :00 to monitor Medical blood Branch glucose for ICD code E11.9 HYDROcodone 2022-0 3- No 1{tbl} 1 tablet, Univers -acetaminop 02-08 Oral, ity of hen (NORCO 21:30: 21:16 ONCE, 1 Luis Armando as 5) 5-325 mg 00 :00 dose, On Medi monika tablet 1 Mon Branch tablet 02/08/23 at 1630, PADMA methylPREDN 2022-0 Yes [id number] Take by [facility] ISolone 4 -21 mouth ity of mg tablets 00:00: [place]INSTRU [place] 00 CTIONS. Medical follow Branch package directions methylPREDN 2022-0 Yes [id number] Take by [facility] ISolone 4 8-21 mouth ity of mg tablets 00:00: SEE-INSTRU [place] 00 CTIONS. Medical follow Branch package directions methylPREDN 2022-0 Yes [id number] Take by [facility] ISolone 4 8-21 mouth ity of mg tablets 00:00: SEE-INSTRU [place] 00 CTIONS. Medical follow Branch package directions methylPREDN 2023-0 Yes [id number] Take by [facility] ISolone 4 8-21 mouth ity of mg tablets 00:00: SEE-INSTRU [place] 00 CTIONS. Medical follow Branch package directions methylPREDN 2023-0 Yes [id number] Take by [facility] ISolone 4 8-21 mouth ity of mg tablets 00:00: SEE-INSTRU [place] 00 CTIONS. Medical follow Branch package directions methylPREDN 2023-0 Yes [id number] Take by [facility] ISolone 4 8-21 mouth ity of mg tablets 00:00: SEE-INSTRU [place] 00 CTIONS. Medical follow Branch package directions methylPREDN 2023-0 Yes [id number] Take by [facility] [place] ISolone 4 8-21 mouth ity of mg tablets 00:00: SEE-INSTRU [place] 00 CTIONS. Medical follow Branch package directions methylPREDN 2023-0 Yes [id number] Take by [facility] [place] ISolone 4 8-21 mouth ity of mg tablets 00:00: SEE-INSTRU [place] 00 CTIONS. Medical follow Branch package directions methylPREDN 2023-0 Yes [id number] Take by [facility] [place] ISolone 4 8-21 mouth ity of mg tablets 00:00: SEE-INSTRU [place] 00 CTIONS. Medical follow Branch package directions methylPREDN 2023-0 Yes [id number] Take by [facility] [place] ISolone 4 8-21 mouth ity of mg tablets 00:00: SEE-INSTRU [place] 00 CTIONS. Medical follow Branch package directions methylPREDN 2023-0 Yes [id number] Take by [facility] [place] ISolone 4 8-21 mouth ity of mg tablets 00:00: SEE-INSTRU [place] 00 CTIONS. Medical follow Branch package directions methylPREDN 2023-0 Yes [id number] Take by [facility] [place] ISolone 4 8-21 mouth ity of mg tablets 00:00: SEE-INSTRU [place] 00 CTIONS. Medical follow Branch package directions methylPREDN 2023-0 2023- No [id number] Take by [facility] ISolone 4 8-21 10-19 mouth ity of mg tablets 00:00: 00:00 SEE-INSTRU [place] 00 :00 CTIONS. Medical follow Branch package directions methylPREDN 2022- No [id number] Take by [facility] ISolone 4 02-08 mouth ity of mg tablets 00:00: 00:00 SEE-INSTRU [place] 00 :00 CTIONS. Medical follow Branch package directions methocarbam 2022- Yes [id number] 500mg Take 1 [facility] oL 500 mg [...] by Medical oral Branch route. amitriptyli Yes [id number] 25mg Take 1 [facility] ne 25 mg 8-11 tablet by ity of tablet 00:00: mouth at [place] 00 bedtime. Medical Branch amitriptyli Yes [id number] 25mg Take 1 [facility] ne 25 mg 8-11 tablet by ity of tablet 00:00: mouth at [place] 00 bedtime. Medical Branch amitriptyli Yes [id number] 25mg Take 1 [facility] ne 25 mg 8-11 tablet by ity of tablet 00:00: mouth at [place] [address] bedtime. Medical Branch amitriptyli Yes [id number] 25mg Take 1 [facility] ne 25 mg 8-11 tablet by ity of tablet 00:00: mouth at [place] 00 bedtime. Medical Branch amitriptyli Yes [id number] 25mg Take 1 [facility] ne 25 mg 8-11 tablet by ity of tablet 00:00: mouth at [place] 00 bedtime. Medical Branch amitriptyli Yes [id number] 25mg Take 1 [facility] ne 25 mg 8-11 tablet by ity of tablet 00:00: mouth at [place] [address] bedtime. Medical Branch amitriptyli 0 Yes [id number] 25mg Take 1 [facility] ne 25 mg 8-11 tablet by ity of tablet 00:00: mouth at [place] 00 bedtime. Medical Branch amitriptyli Yes [id number] 25mg Take 1 [facility] ne 25 mg 8-11 tablet by ity of tablet 00:00: mouth at [place] 00 bedtime. Medical Branch amitriptyli Yes [id number] 25mg Take 1 [facility] ne 25 mg 8-11 tablet by ity of tablet 00:00: mouth at [place] 00 bedtime. Medical Branch amitriptyli Yes [id number] 25mg Take 1 [facility] ne 25 mg 8-11 tablet by ity of tablet 00:00: mouth at [place] 00 bedtime. Medical Branch amitriptyli Yes [id number] 25mg Take 1 [facility] ne 25 mg 8-11 tablet by ity of tablet 00:00: mouth at [place] 00 bedtime. Medical Branch amitriptyli Yes [id number] 25mg Take 1 [facility] ne 25 mg 8-11 tablet by ity of tablet 00:00: mouth at [place] 00 bedtime. Medical Branch amitriptyli Yes [id number] 25mg Take 1 [facility] ne 25 mg 8-11 tablet by ity of tablet 00:00: mouth at [place] 00 bedtime. Medical Branch amitriptyli Yes [id number] 25mg Take 1 [facility] ne 25 mg 8-11 tablet by ity of tablet 00:00: mouth at [place] [address] bedtime. Medical Branch amitriptyli Yes [id number] 25mg Take 1 [facility] ne 25 mg 8-11 tablet by ity of tablet 00:00: mouth at [place] [address] bedtime. Medical Branch amitriptyli 2022- No [id number] 25mg Take 1 [facility] ne 25 mg 8-11 10-19 tablet by ity o f tablet 00:00: 00:00 mouth at [place] 00 :00 bedtime. Medical Branch amitriptyli 2022- No [id number] 25mg Take 1 [facility] ne 25 mg 8-11 10-19 tablet by ity o f tablet 00:00: 00:00 mouth at [place] 00 :00 bedtime. Medical Branch ofloxacin Yes 2[drp] Place [...] and 2 Drops in the evening. ofloxacin 2022-0 Yes 2[drp] Place 2 Uni vers 0.3 % otic 8-09 Drops in ity o f drops 00:00: left ear [place] 00 in the Medical morning Branch and 2 Drops in the evening. ofloxacin 2022- Yes 2[drp] Place 2 Uni vers 0.3 % otic 8-09 Drops in ity o f drops 00:00: left ear [place] 00 in the Medical morning Branch and 2 Drops in the evening. ofloxacin 2022- Yes 2[drp] Place 2 Uni vers 0.3 % otic 8-09 Drops in ity o f drops 00:00: left ear [place] 00 in the Medical morning Branch and 2 Drops in the evening. ofloxacin 2022- Yes 2[drp] Place 2 Uni vers 0.3 % otic 8-09 Drops in ity o f drops 00:00: left ear [place] 00 in the Medical morning Branch and 2 Drops in the evening. ofloxacin 2022- Yes 2[drp] Place 2 Uni vers 0.3 % otic 8-09 Drops in ity o f drops 00:00: left ear [place] 00 in the Medical morning Branch and 2 Drops in the evening. ofloxacin 2022- Yes 2[drp] Place 2 Uni vers 0.3 [...] and 2 Drops in the evening. ofloxacin 2022-0 Yes 2[drp] Place 2 Uni vers 0.3 % otic 8-09 Drops in ity o f drops 00:00: left ear [place] 00 in the Medical morning Branch and 2 Drops in the evening. ofloxacin 2022-0 Yes 2[drp] Place 2 Uni vers 0.3 % otic 8-09 Drops in ity o f drops 00:00: left ear [place] 00 in the Medical morning Branch and 2 Drops in the evening. ofloxacin 2022- Yes 2[drp] Place 2 Uni vers 0.3 % otic 8-09 Drops in ity o f drops 00:00: left ear [place] 00 in the Medical morning Branch and 2 Drops in the evening. ofloxacin 2022- Yes 2[drp] Place 2 Uni vers 0.3 [...] and 2 Drops in the evening. ofloxacin 2022- No 2[drp] Place 2 Un nyla 0.3 % otic 8-09 10-19 Drops in ity of drops 00:00: 00:00 left ear [place] 00 :00 in the Medical morning Branch and 2 Drops in the evening. ofloxacin 202- No 2[drp] Place 2 Un nyla 0.3 % otic 8-09 10-19 Drops in ity of drops 00:00: 00:00 left ear [place] 00 :00 in the Medical morning Branch and 2 Drops in the evening. Insulin Asp Yes [id number] INJECT 28 [facility] Prt-Insulin 7-18 UNITS ity of Aspart 00:00: UNDER THE [place] (NOVOLOG 00 SKIN 2 Medical MIX 70-30) (TWO) Branch 100 unit/mL TIMES (70-30) DAILY injection BEFORE BREAKFAST AND DINNER. escitalopra Yes [id number] 10mg Take 1 [facility] m oxalate 7-18 tablet by ity o f 10 mg 00:00: mouth in [place] tablet 00 the Medical morning. Branch Insulin Yes Use as [facility] [place], 7-18 directed ity of Disposable, 00:00: twice [place] (PEN 00 daily to Medical NEEDLE) 32 inject Branch gauge x insulin; " Ndle ICD-10 E11.65 Insulin Asp Yes [id number] INJECT 28 [facility] Prt-Insulin 7-18 UNITS ity of Aspart 00:00: UNDER THE [place] (NOVOLOG 00 SKIN 2 Medical MIX 70-30) (TWO) Branch 100 unit/mL TIMES (70-30) DAILY injection BEFORE BREAKFAST AND DINNER. escitalopra 2022-0 Yes [id number] 10mg Take 1 [facility] m oxalate 7-18 tablet by ity o f 10 mg 00:00: mouth in [place] tablet 00 the Medical morning. Branch Insulin 2022-0 Yes Use as [facility] [place], 7-18 directed ity of Disposable, 00:00: twice [place] (PEN 00 daily to Medical NEEDLE) 32 inject Branch gauge x insulin; " Ndle ICD-10 E11.65 Insulin Asp 2022-0 Yes [id number] INJECT 28 [facility] Prt-Insulin 7-18 UNITS ity of Aspart 00:00: UNDER THE [place] (NOVOLOG 00 SKIN 2 Medical MIX 70-30) (TWO) Branch 100 unit/mL TIMES (70-30) DAILY injection BEFORE BREAKFAST AND DINNER. escitalopra 2022-0 Yes [id number] 10mg Take 1 [facility] m oxalate 7-18 tablet by ity o f 10 mg 00:00: mouth in [place] tablet 00 the Medical morning. Branch Insulin 2022-0 Yes Use as [facility] [place], 7-18 directed ity of Disposable, 00:00: twice [place] (PEN 00 daily to Medical NEEDLE) 32 inject Branch gauge x insulin; " Ndle ICD-10 E11.65 Insulin Asp 2022-0 Yes [id number] INJECT 28 [facility] Prt-Insulin 7-18 UNITS ity of Aspart 00:00: UNDER THE [place] (NOVOLOG 00 SKIN 2 Medical MIX 70-30) (TWO) Branch 100 unit/mL TIMES (70-30) DAILY injection BEFORE BREAKFAST AND DINNER. escitalopra 2022-0 Yes [id number] 10mg Take 1 [facility] m oxalate 7-18 tablet by ity o f 10 mg 00:00: mouth in [place] tablet 00 the Medical morning. Branch Insulin 2022-0 Yes Use as [facility] [place], 7-18 directed ity of Disposable, 00:00: twice [place] (PEN 00 daily to Medical NEEDLE) 32 inject Branch gauge x insulin; " Ndle ICD-10 E11.65 Insulin Asp 2022-0 Yes [id number] INJECT 28 [facility] Prt-Insulin 7-18 UNITS ity of Aspart 00:00: UNDER THE [place] (NOVOLOG 00 SKIN 2 Medical MIX 70-30) (TWO) Branch 100 unit/mL TIMES (70-30) DAILY injection BEFORE BREAKFAST AND DINNER. escitalopra 2022-0 Yes [id number] 10mg Take 1 [facility] m oxalate 7-18 tablet by ity o f 10 mg 00:00: mouth in [place] tablet 00 the Medical morning. Branch Insulin 2022-0 Yes Use as [facility] [place], 7-18 directed ity of Disposable, 00:00: twice [place] (PEN 00 daily to Medical NEEDLE) 32 inject Branch gauge x insulin; " Ndle ICD-10 E11.65 Insulin Asp 2022-0 Yes [id number] INJECT 28 [facility] Prt-Insulin 7-18 UNITS ity of Aspart 00:00: UNDER THE [place] (NOVOLOG 00 SKIN 2 Medical MIX 70-30) (TWO) Branch 100 unit/mL TIMES (70-30) DAILY injection BEFORE BREAKFAST AND DINNER. escitalopra 2022-0 Yes [id number] 10mg Take 1 [facility] m oxalate 7-18 tablet by ity o f 10 mg 00:00: mouth in [place] tablet 00 the Medical morning. Branch Insulin 2022-0 Yes Use as [facility] [place], 7-18 directed ity of Disposable, 00:00: twice [place] (PEN 00 daily to Medical NEEDLE) 32 inject Branch gauge x insulin; " Ndle ICD-10 E11.65 Insulin Asp 2022-0 Yes [id number] INJECT 28 [facility] Prt-Insulin 7-18 UNITS ity of Aspart 00:00: UNDER THE [place] (NOVOLOG 00 SKIN 2 Medical MIX 70-30) (TWO) Branch 100 unit/mL TIMES (70-30) DAILY injection BEFORE BREAKFAST AND DINNER. escitalopra 2022-0 Yes [id number] 10mg Take 1 [facility] m oxalate 7-18 tablet by ity o f 10 mg 00:00: mouth in [place] tablet 00 the Medical morning. Branch Insulin 2022-0 Yes Use as [facility] [place], 7-18 directed ity of Disposable, 00:00: twice [place] (PEN 00 daily to Medical NEEDLE) 32 inject Branch gauge x insulin; " Ndle ICD-10 E11.65 Insulin Asp 2022-0 Yes [id number] INJECT 28 [facility] Prt-Insulin 7-18 UNITS ity of Aspart 00:00: UNDER THE [place] (NOVOLOG 00 SKIN 2 Medical MIX 70-30) (TWO) Branch 100 unit/mL TIMES (70-30) DAILY injection BEFORE BREAKFAST AND DINNER. escitalopra 2022-0 Yes [id number] 10mg Take 1 [facility] m oxalate 7-18 tablet by ity o f 10 mg 00:00: mouth in [place] tablet 00 the Medical morning. Branch Insulin 2022-0 Yes Use as [facility] [place], 7-18 directed ity of Disposable, 00:00: twice [place] (PEN 00 daily to Medical NEEDLE) 32 inject Branch gauge x insulin; " Ndle ICD-10 E11.65 Insulin Asp 2022-0 Yes [id number] INJECT 28 [facility] Prt-Insulin 7-18 UNITS ity of Aspart 00:00: UNDER THE [place] (NOVOLOG 00 SKIN 2 Medical MIX 70-30) (TWO) Branch 100 unit/mL TIMES (70-30) DAILY injection BEFORE BREAKFAST AND DINNER. escitalopra 2022-0 Yes [id number] 10mg Take 1 [facility] m oxalate 7-18 tablet by ity o f 10 mg 00:00: mouth in [place] tablet 00 the Medical morning. Branch Insulin 2022-0 Yes Use as [facility] [place], 7-18 directed ity of Disposable, 00:00: twice [place] (PEN 00 daily to Medical NEEDLE) 32 inject Branch gauge x insulin; " Ndle ICD-10 E11.65 Insulin Asp 2022-0 Yes [id number] INJECT 28 [facility] Prt-Insulin 7-18 UNITS ity of Aspart 00:00: UNDER THE [place] (NOVOLOG 00 SKIN 2 Medical MIX 70-30) (TWO) Branch 100 unit/mL TIMES (70-30) DAILY injection BEFORE BREAKFAST AND DINNER. escitalopra 2022-0 Yes [id number] 10mg Take 1 [facility] m oxalate 7-18 tablet by ity o f 10 mg 00:00: mouth in [place] tablet 00 the Medical morning. Branch Insulin 2022-0 Yes Use as [facility] [place], 7-18 directed ity of Disposable, 00:00: twice [place] (PEN 00 daily to Medical NEEDLE) 32 inject Branch gauge x insulin; " Ndle ICD-10 E11.65 Insulin Asp 2022-0 Yes [id number] INJECT 28 [facility] Prt-Insulin 7-18 UNITS ity of Aspart 00:00: UNDER THE [place] (NOVOLOG 00 SKIN 2 Medical MIX 70-30) (TWO) Branch 100 unit/mL TIMES (70-30) DAILY injection BEFORE BREAKFAST AND DINNER. escitalopra 2022-0 Yes [id number] 10mg Take 1 [facility] m oxalate 7-18 tablet by ity o f 10 mg 00:00: mouth in [place] tablet 00 the Medical morning. Branch Insulin 2022-0 Yes Use as [facility] [place], 7-18 directed ity of Disposable, 00:00: twice [place] (PEN 00 daily to Medical NEEDLE) 32 inject Branch gauge x insulin; " Ndle ICD-10 E11.65 Insulin Asp 2022-0 Yes [id number] INJECT 28 [facility] Prt-Insulin 7-18 UNITS ity of Aspart 00:00: UNDER THE [place] (NOVOLOG 00 SKIN 2 Medical MIX 70-30) (TWO) Branch 100 unit/mL TIMES (70-30) DAILY injection BEFORE BREAKFAST AND DINNER. escitalopra 2022-0 Yes [id number] 10mg Take 1 [facility] m oxalate 7-18 tablet by ity o f 10 mg 00:00: mouth in [place] tablet 00 the Medical morning. Branch Insulin 2022-0 Yes Use as [facility] [place], 7-18 directed ity of Disposable, 00:00: twice [place] (PEN 00 daily to Medical NEEDLE) 32 inject Branch gauge x insulin; " Ndle ICD-10 E11.65 Insulin Asp 2022-0 Yes [id number] INJECT 28 [facility] Prt-Insulin 7-18 UNITS ity of Aspart 00:00: UNDER THE [place] (NOVOLOG 00 SKIN 2 Medical MIX 70-30) (TWO) Branch 100 unit/mL TIMES (70-30) DAILY injection BEFORE BREAKFAST AND DINNER. escitalopra 2022-0 Yes [id number] 10mg Take 1 [facility] m oxalate 7-18 tablet by ity o f 10 mg 00:00: mouth in [place] tablet 00 the Medical morning. Branch Insulin 2022-0 Yes Use as [facility] [place], 7-18 directed ity of Disposable, 00:00: twice [place] (PEN 00 daily to Medical NEEDLE) 32 inject Branch gauge x insulin; " Ndle ICD-10 E11.65 Insulin Asp 2022-0 Yes [id number] INJECT 28 [facility] Prt-Insulin 7-18 UNITS ity of Aspart 00:00: UNDER THE [place] (NOVOLOG 00 SKIN 2 Medical MIX 70-30) (TWO) Branch 100 unit/mL TIMES (70-30) DAILY injection BEFORE BREAKFAST AND DINNER. escitalopra 2022-0 Yes [id number] 10mg Take 1 [facility] m oxalate 7-18 tablet by ity o f 10 mg 00:00: mouth in [place] tablet 00 the Medical morning. Branch Insulin 2022-0 Yes Use as [facility] [place], 7-18 directed ity of Disposable, 00:00: twice [place] (PEN 00 daily to Medical NEEDLE) 32 inject Branch gauge x insulin; " Ndle ICD-10 E11.65 Insulin Asp 2022-0 Yes [id number] INJECT 28 [facility] Prt-Insulin 7-18 UNITS ity of Aspart 00:00: UNDER THE [place] (NOVOLOG 00 SKIN 2 Medical MIX 70-30) (TWO) Branch 100 unit/mL TIMES (70-30) DAILY injection BEFORE BREAKFAST AND DINNER. escitalopra 2022-0 Yes [id number] 10mg Take 1 [facility] m oxalate 7-18 tablet by ity o f 10 mg 00:00: mouth in [place] tablet 00 the Medical morning. Branch Insulin 2022-0 Yes Use as [facility] [place], 7-18 directed ity of Disposable, 00:00: twice [place] (PEN 00 daily to Medical NEEDLE) 32 inject Branch gauge x insulin; " Ndle ICD-10 E11.65 Insulin Asp 2022-0 Yes [id number] INJECT 28 [facility] Prt-Insulin 7-18 UNITS ity of Aspart 00:00: UNDER THE [place] (NOVOLOG 00 SKIN 2 Medical MIX 70-30) (TWO) Branch 100 unit/mL TIMES (70-30) DAILY injection BEFORE BREAKFAST AND DINNER. escitalopra 2022-0 Yes [id number] 10mg Take 1 [facility] m oxalate 7-18 tablet by ity o f 10 mg 00:00: mouth in [place] tablet 00 the Medical morning. Branch Insulin 2022-0 Yes Use as [facility] [place], 7-18 directed ity of Disposable, 00:00: twice [place] (PEN 00 daily to Medical NEEDLE) 32 inject Branch gauge x insulin; " Ndle ICD-10 E11.65 Insulin Asp 2022-0 Yes [id number] INJECT 28 [facility] Prt-Insulin 7-18 UNITS ity of Aspart 00:00: UNDER THE [place] (NOVOLOG 00 SKIN 2 Medical MIX 70-30) (TWO) Branch 100 unit/mL TIMES (70-30) DAILY injection BEFORE BREAKFAST AND DINNER. escitalopra 2022-0 Yes [id number] 10mg Take 1 [facility] m oxalate 7-18 tablet by ity o f 10 mg 00:00: mouth in [place] tablet 00 the Medical morning. Branch Insulin 2022-0 Yes Use as [facility] [place], 7-18 directed ity of Disposable, 00:00: twice [place] (PEN 00 daily to Medical NEEDLE) 32 inject Branch gauge x insulin; " Ndle ICD-10 E11.65 Insulin Asp 2022-0 Yes [id number] INJECT 28 Univers Prt-Insulin 7-18 UNITS ity of Aspart 00:00: UNDER THE [place] (NOVOLOG 00 SKIN 2 Medical MIX 70-30) (TWO) Branch 100 unit/mL TIMES (70-30) DAILY injection BEFORE BREAKFAST AND DINNER. escitalopra 2022-0 Yes [id number] 10mg Take 1 [facility] m oxalate 7-18 tablet by ity o f 10 mg 00:00: mouth in [place] tablet 00 the Medical morning. Branch Insulin 2022-0 Yes Use as [facility] [place], 7-18 directed ity of Disposable, 00:00: twice [place] (PEN 00 daily to Medical NEEDLE) 32 inject Branch gauge x insulin; " Ndle ICD-10 E11.65 Insulin Asp 2022-0 Yes [id number] INJECT 28 [facility] Prt-Insulin 7-18 UNITS ity of Aspart 00:00: UNDER THE [place] (NOVOLOG 00 SKIN 2 Medical MIX 70-30) (TWO) Branch 100 unit/mL TIMES (70-30) DAILY injection BEFORE BREAKFAST AND DINNER. escitalopra 2022-0 Yes [id number] 10mg Take 1 [facility] m oxalate 7-18 tablet by ity o f 10 mg 00:00: mouth in [place] tablet 00 the Medical morning. Branch Insulin 2022-0 Yes Use as [facility] [place], 7-18 directed ity of Disposable, 00:00: twice [place] (PEN 00 daily to Medical NEEDLE) 32 inject Branch gauge x insulin; " Ndle ICD-10 E11.65 Insulin Asp 2022-0 Yes [id number] INJECT 28 [facility] Prt-Insulin 7-18 UNITS ity of Aspart 00:00: UNDER THE [place] (NOVOLOG 00 SKIN 2 Medical MIX 70-30) (TWO) Branch 100 unit/mL TIMES (70-30) DAILY injection BEFORE BREAKFAST AND DINNER. escitalopra 2022-0 Yes [id number] 10mg Take 1 [facility] m oxalate 7-18 tablet by ity o f 10 mg 00:00: mouth in [place] tablet 00 the Medical morning. Branch Insulin Asp 2022-0 Yes [id number] INJECT 28 [facility] Prt-Insulin 7-18 UNITS ity of Aspart 00:00: UNDER THE [place] (NOVOLOG 00 SKIN 2 Medical MIX 70-30) (TWO) Branch 100 unit/mL TIMES (70-30) DAILY injection BEFORE BREAKFAST AND DINNER. escitalopra 2022-0 Yes [id number] 10mg Take 1 [facility] m oxalate 7-18 tablet by ity o f 10 mg 00:00: mouth in [place] tablet 00 the Medical morning. Branch Insulin Asp 2022-0 Yes [id number] INJECT 28 [facility] Prt-Insulin 7-18 UNITS ity of Aspart 00:00: UNDER THE [place] (NOVOLOG 00 SKIN 2 Medical MIX 70-30) (TWO) Branch 100 unit/mL TIMES (70-30) DAILY injection BEFORE BREAKFAST AND DINNER. escitalopra 2022-0 Yes [id number] 10mg Take 1 [facility] m oxalate 7-18 tablet by ity o f 10 mg 00:00: mouth in [place] tablet 00 the Medical morning. Branch Insulin Asp 2022-0 Yes [id number] INJECT 28 [facility] Prt-Insulin 7-18 UNITS ity of Aspart 00:00: UNDER THE [place] (NOVOLOG 00 SKIN 2 Medical MIX 70-30) (TWO) Branch 100 unit/mL TIMES (70-30) DAILY injection BEFORE BREAKFAST AND DINNER. escitalopra 2022-0 Yes [id number] 10mg Take 1 [facility] m oxalate 7-18 tablet by ity o f 10 mg 00:00: mouth in [place] tablet 00 the Medical morning. Branch Insulin Asp 2022-0 Yes [id number] INJECT 28 [facility] Prt-Insulin 7-18 UNITS ity of Aspart 00:00: UNDER THE [place] (NOVOLOG 00 SKIN 2 Medical MIX 70-30) (TWO) Branch 100 unit/mL TIMES (70-30) DAILY injection BEFORE BREAKFAST AND DINNER. escitalopra 3-0 Yes [id number] 10mg Take 1 [facility] m oxalate 7-18 tablet by ity o f 10 mg 00:00: mouth in [place] tablet 00 the Medical morning. Branch Insulin Asp 2022-0 Yes [id number] INJECT 28 [facility] Prt-Insulin 7-18 UNITS ity of Aspart 00:00: UNDER THE [place] (NOVOLOG 00 SKIN 2 Medical MIX 70-30) (TWO) Branch 100 unit/mL TIMES (70-30) DAILY injection BEFORE BREAKFAST AND DINNER. escitalopra Yes [id number] 10mg Take 1 [facility] m oxalate 7-18 tablet by ity o f 10 mg 00:00: mouth in [place] tablet 00 the Medical morning. Branch Insulin Asp Yes [id number] INJECT 28 [facility] Prt-Insulin 7-18 UNITS ity of Aspart 00:00: UNDER THE [place] (NOVOLOG 00 SKIN 2 Medical MIX 70-30) (TWO) Branch 100 unit/mL TIMES (70-30) DAILY injection BEFORE BREAKFAST AND DINNER. escitalopra Yes [id number] 10mg Take 1 [facility] m oxalate 7-18 tablet by ity o f 10 mg 00:00: mouth in [place] tablet 00 the Medical morning. Branch Insulin 2022- No Use as [facility] [place], 01-05 directed ity of Disposable, 00:00: 00:00 [place] (PEN 00 :00 daily to Medical NEEDLE) 32 inject Branch gauge x insulin; " Ndle ICD-10 E11.65 Insulin 2022- No Use as [facility] [place], 01-05 directed ity of Disposable, 00:00: 00:00 [place] (PEN 00 :00 daily to Medical NEEDLE) 32 inject Branch gauge x insulin; " Ndle ICD-10 E11.65 amoxicillin 2022- No [id number] 1{tbl} Take 1 [facility] -clavulanat 12-26-16 tablet by it y of e 00:00: 04:59 mouth in [place] (AUGMENTIN) 00 :00 the Medical 875-125 mg morning Branch per tablet and 1 tablet in the evening. Do all this for 7 days. doxycycline 2022- No TAKE ONE U nivers hyclate 100 12-16 08-11 CAPSULE ity of mg capsule 00:00: 00:00 ONCE DAILY [place] 00 :00 WITH FOOD Medical AND WATER, Branch DO NOT LIE DOWN FOR 1 HOUR AFTER. doxycycline 2022- No TAKE ONE U nivers hyclate 100 12-16 08-11 CAPSULE ity of mg capsule 00:00: 00:00 ONCE DAILY [place] 00 :00 WITH FOOD Medical AND WATER, Branch DO NOT LIE DOWN FOR 1 HOUR AFTER. metFORMIN 2022-0 Yes [id number] 1000mg Take 1 [facility] 1,000 mg 6-18 tablet by ity of tablet 00:00: mouth in [place] 00 the Medical morning Branch and 1 tablet in the evening. Take with meals. metFORMIN 2022-0 2023- No [id number] 1000mg Take 1 [facility] 1,000 mg 6-18 06-21 tablet by ity o f tablet 00:00: 00:00 mouth in [place] 00 :00 the Medical morning Branch and 1 tablet in the evening. Take with meals. dulaglutide 2022-0 Yes [id number] .75mg inject 1 [facility] (TRULICITY) 6-16 Pen under ity of 0.75 mg/0.5 00:00: the skin [place] mL PnIj 00 weekly. Medical Branch dulaglutide 0 Yes [id number] .75mg inject 1 [facility] (TRULICITY) 6-16 Pen under ity of 0.75 mg/0.5 00:00: the skin [place] mL PnIj 00 weekly. Medical Branch dulaglutide 0 Yes [id number] .75mg inject 1 [facility] (TRULICITY) 6-16 Pen under ity of 0.75 mg/0.5 00:00: the skin [place] mL PnIj 00 weekly. Medical Branch dulaglutide 2022-0 Yes [id number] .75mg inject 1 [facility] (TRULICITY) 6-16 Pen under ity of 0.75 mg/0.5 00:00: the skin [place] mL PnIj 00 weekly. Medical Branch dulaglutide 2022-0 Yes [id number] .75mg inject 1 [facility] (TRULICITY) 6-16 Pen under ity of 0.75 mg/0.5 00:00: the skin [place] mL PnIj 00 weekly. Medical Branch dulaglutide 2022-0 Yes [id number] .75mg inject 1 [facility] (TRULICITY) 6-16 Pen under ity of 0.75 mg/0.5 00:00: the skin [place] mL PnIj 00 weekly. Medical Branch dulaglutide 2022-0 Yes [id number] .75mg inject 1 [facility] (TRULICITY) 6-16 Pen under ity of 0.75 mg/0.5 00:00: the skin [place] mL PnIj 00 weekly. Medical Branch dulaglutide 0 Yes [id number] .75mg inject 1 [facility] (TRULICITY) 6-16 Pen under ity of 0.75 mg/0.5 00:00: the skin [place] mL PnIj 00 weekly. Medical Branch dulaglutide 2022-0 Yes [id number] .75mg inject 1 [facility] (TRULICITY) 6-16 Pen under ity of 0.75 mg/0.5 00:00: the skin [place] mL PnIj 00 weekly. Medical Branch dulaglutide 0 Yes [id number] .75mg inject 1 [facility] (TRULICITY) 6-16 Pen under ity of 0.75 mg/0.5 00:00: the skin [place] mL PnIj 00 weekly. Medical Branch dulaglutide 3- No [id number] .75mg inject 1 [facility] (TRULICITY) 6-16 08-11 Pen under it y of 0.75 mg/0.5 00:00: 00:00 the skin [place] mL PnIj 00 :00 weekly. Medical Branch dulaglutide 0 3- No [id number] .75mg inject 1 [facility] (TRULICITY) 6-16 08-11 Pen under it y of 0.75 mg/0.5 00:00: 00:00 the skin [place] mL PnIj 00 :00 weekly. Medical Branch SITagliptin 2022-0 Yes [id number] 50mg Take 1 [facility] phosphate 6-08 tablet by ity o f 50 mg 00:00: mouth in [place] tablet 00 the Medical morning. Branch acetaminoph 2022-0 Yes [id number] 650mg Take 1 [facility] en (TYLENOL 6-08 tablet by ity of ARTHRITIS 00:00: mouth 3 [place] PAIN) 650 00 (three) Medical mg CR times Branch tablet daily as needed for Pain. SITagliptin 2022-0 Yes [id number] 50mg Take 1 [facility] phosphate 6-08 tablet by ity o f 50 mg 00:00: mouth in [place] tablet 00 the Medical morning. Branch acetaminoph 2022-0 Yes [id number] 650mg Take 1 [facility] en (TYLENOL 6-08 tablet by ity of ARTHRITIS 00:00: mouth 3 [place] PAIN) 650 00 (three) Medical mg CR times Branch tablet daily as needed for Pain. SITagliptin 2023-0 Yes [id number] 50mg Take 1 [facility] phosphate 6-08 tablet by ity o f 50 mg 00:00: mouth in [place] tablet 00 the Medical morning. Branch acetaminoph 3-0 Yes [id number] 650mg Take 1 [facility] en (TYLENOL 6-08 tablet by ity of ARTHRITIS 00:00: mouth 3 [place] PAIN) 650 00 (three) Medical mg CR times Branch tablet daily as needed for Pain. SITagliptin 3-0 Yes [id number] 50mg Take 1 [facility] phosphate 6-08 tablet by ity o f 50 mg 00:00: mouth in [place] tablet 00 the Medical morning. Branch acetaminoph 3-0 Yes [id number] 650mg Take 1 [facility] en (TYLENOL 6-08 tablet by ity of ARTHRITIS 00:00: mouth 3 [place] PAIN) 650 00 (three) Medical mg CR times Branch tablet daily as needed for Pain. SITagliptin 3-0 Yes [id number] 50mg Take 1 [facility] phosphate 6-08 tablet by ity o f 50 mg 00:00: mouth in [place] tablet 00 the Medical morning. Branch acetaminoph 3-0 Yes [id number] 650mg Take 1 [facility] en (TYLENOL 6-08 tablet by ity of ARTHRITIS 00:00: mouth 3 [place] PAIN) 650 00 (three) Medical mg CR times Branch tablet daily as needed for Pain. acetaminoph 3-0 Yes [id number] 650mg Take 1 [facility] en (TYLENOL 6-08 tablet by ity of ARTHRITIS 00:00: mouth 3 [place] PAIN) 650 00 (three) Medical mg CR times Branch tablet daily as needed for Pain. acetaminoph 2023-0 Yes [id number] 650mg Take 1 [facility] en (TYLENOL 6-08 tablet by ity of ARTHRITIS 00:00: mouth 3 [place] PAIN) 650 00 (three) Medical mg CR times Branch tablet daily as needed for Pain. acetaminoph 2023-0 Yes [id number] 650mg Take 1 [facility] en (TYLENOL 6-08 tablet by ity of ARTHRITIS 00:00: mouth 3 [place] PAIN) 650 00 (three) Medical mg CR times Branch tablet daily as needed for Pain. acetaminoph 2023-0 Yes [id number] 650mg Take 1 [facility] en (TYLENOL 6-08 tablet by ity of ARTHRITIS 00:00: mouth 3 [place] PAIN) 650 00 (three) Medical mg CR times Branch tablet daily as needed for Pain. acetaminoph 3-0 Yes [id number] 650mg Take 1 [facility] en (TYLENOL 6-08 tablet by ity of ARTHRITIS 00:00: mouth 3 [place] PAIN) 650 00 (three) Medical mg CR times Branch tablet daily as needed for Pain. acetaminoph 3-0 Yes [id number] 650mg Take 1 [facility] en (TYLENOL 6-08 tablet by ity of ARTHRITIS 00:00: mouth 3 [place] PAIN) 650 00 (three) Medical mg CR times Branch tablet daily as needed for Pain. acetaminoph 3-0 Yes [id number] 650mg Take 1 [facility] en (TYLENOL 6-08 tablet by ity of ARTHRITIS 00:00: mouth 3 [place] PAIN) 650 00 (three) Medical mg CR times Branch tablet daily as needed for Pain. acetaminoph 3-0 Yes [id number] 650mg Take 1 [facility] en (TYLENOL 6-08 tablet by ity of ARTHRITIS 00:00: mouth 3 [place] PAIN) 650 00 (three) Medical mg CR times Branch tablet daily as needed for Pain. acetaminoph 3-0 Yes [id number] 650mg Take 1 [facility] en (TYLENOL 6-08 tablet by ity of ARTHRITIS 00:00: mouth 3 [place] PAIN) 650 00 (three) Medical mg CR times Branch tablet daily as needed for Pain. acetaminoph 3-0 Yes [id number] 650mg Take 1 [facility] en (TYLENOL 6-08 tablet by ity of ARTHRITIS 00:00: mouth 3 [place] PAIN) 650 00 (three) Medical mg CR times Branch tablet daily as needed for Pain. acetaminoph 3-0 Yes [id number] 650mg Take 1 [facility] en (TYLENOL 6-08 tablet by ity of ARTHRITIS 00:00: mouth 3 [place] PAIN) 650 00 (three) Medical mg CR times Branch tablet daily as needed for Pain. acetaminoph 2023-0 Yes [id number] 650mg Take 1 [facility] en (TYLENOL 6-08 tablet by ity of ARTHRITIS 00:00: mouth 3 [place] PAIN) 650 00 (three) Medical mg CR times Branch tablet daily as needed for Pain. acetaminoph 2023-0 Yes [id number] 650mg Take 1 [facility] en (TYLENOL 6-08 tablet by ity of ARTHRITIS 00:00: mouth 3 [place] PAIN) 650 00 (three) Medical mg CR times Branch tablet daily as needed for Pain. acetaminoph 2022- No [id number] 650mg Take 1 [facility] en (TYLENOL 6-08 08-11 tablet by it y of ARTHRITIS 00:00: 00:00 mouth [place] PAIN) 650 00 :00 (three) Medical mg CR times Branch tablet daily as needed for Pain. acetaminoph 2022- No [id number] 650mg Take 1 [facility] en (TYLENOL 6-08 08-11 tablet by it y of ARTHRITIS 00:00: 00:00 mouth [place] PAIN) 650 00 :00 (three) Medical mg CR times Branch tablet daily as needed for Pain. SITagliptin 2022-2022- No [id number] 50mg Take 1 [facility] phosphate 6-08 06-16 tablet by ity of 50 mg 00:00: 00:00 mouth in [place] tablet 00 :00 the Medical morning. [place] SITagliptin 2022-2022- No [id number] 50mg Take 1 [facility] phosphate 6-08 06-16 tablet by ity of 50 mg 00:00: 00:00 mouth in [place] tablet 00 :00 the Medical morning. [place] SITagliptin 2022- No [id number] 50mg Take 1 [facility] phosphate 6-08 06-16 tablet by ity of 50 mg 00:00: 00:00 mouth in [place] tablet 00 :00 the Medical morning. [place] SITagliptin 2022-0 2022- No [id number] 50mg Take 1 [facility] phosphate 6-08 06-16 tablet by ity of 50 mg 00:00: 00:00 mouth in [place] tablet 00 :00 the Medical morning. [place] SITagliptin 2022-0 2022- No [id number] 50mg Take 1 [facility] phosphate 6-08 06-16 tablet by ity of 50 mg 00:00: 00:00 mouth in [place] tablet 00 :00 the Medical morning. [place] SITagliptin 2022- No [id number] 50mg Take 1 [facility] phosphate 6-08 06-16 tablet by ity of 50 mg 00:00: 00:00 mouth in [place] tablet 00 :00 the Medical morning. [place] DORINA 2022- Yes [id number] USE TWICE Univers MICROFILL 4-05 DAILY FOR ity o f strip 00:00: BLOOD [place] 00 GLUCOSE Medical MONITORING Branch ASCENSIA 2023-0 Yes [id number] USE TWICE Univers MICROFILL 4-05 DAILY FOR ity o f strip 00:00: BLOOD [place] GLUCOSE Medical MONITORING Branch [facility] 20[facility] Yes [id number] USE TWICE [facility] MICROFILL 4-05 DAILY FOR ity o f strip 00:00: BLOOD [place] GLUCOSE Medical MONITORING Branch [facility] 3-0 Yes [id number] USE TWICE [facility] MICROFILL 4-05 DAILY FOR ity o f strip 00:00: BLOOD [place] GLUCOSE Medical MONITORING Branch [facility] 3-0 Yes [id number] USE TWICE [facility] MICROFILL 4-05 DAILY FOR ity o f strip 00:00: BLOOD [place] GLUCOSE Medical MONITORING Branch [facility] 3-0 Yes [id number] USE TWICE Univers MICROFILL 4-05 DAILY FOR ity o f strip 00:00: BLOOD [place] GLUCOSE Medical MONITORING Branch [facility] 3-0 Yes [id number] USE TWICE Univers MICROFILL 4-05 DAILY FOR ity o f strip 00:00: BLOOD [place] GLUCOSE Medical MONITORING Branch [facility] 3-0 Yes [id number] USE TWICE Univers MICROFILL 4-05 DAILY FOR ity o f strip 00:00: BLOOD [place] GLUCOSE Medical MONITORING Branch [facility] 3-0 Yes [id number] USE TWICE Univers MICROFILL 4-05 DAILY FOR ity o f strip 00:00: BLOOD [place] GLUCOSE Medical MONITORING Branch [facility] 3-0 Yes [id number] USE TWICE Univers MICROFILL 4-05 DAILY FOR ity o f strip 00:00: BLOOD [place] GLUCOSE Medical MONITORING Branch [facility] 2023-0 Yes [id number] USE TWICE Univers MICROFILL 4-05 DAILY FOR ity o f strip 00:00: BLOOD [place] GLUCOSE Medical MONITORING Branch [facility] 3-0 Yes [id number] USE TWICE [facility] MICROFILL 4-05 DAILY FOR ity o f strip 00:00: BLOOD [place] GLUCOSE Medical MONITORING Branch [facility] 2023-0 Yes [id number] USE TWICE Univers MICROFILL 4-05 DAILY FOR ity o f strip 00:00: BLOOD [place] GLUCOSE Medical MONITORING Branch [facility] 3-0 Yes [id number] USE TWICE Univers MICROFILL 4-05 DAILY FOR ity o f strip 00:00: BLOOD [place] GLUCOSE Medical MONITORING Branch [facility] 3-0 Yes [id number] USE TWICE Univers MICROFILL 4-05 DAILY FOR ity o f strip 00:00: BLOOD [place] 00 GLUCOSE Medical MONITORING Branch [facility] 3-0 Yes [id number] USE TWICE Univers MICROFILL 4-05 DAILY FOR ity o f strip 00:00: BLOOD [place] GLUCOSE Medical MONITORING [facility] 2022-0 Yes [id number] USE TWICE Univers MICROFILL 4-05 DAILY FOR ity o f strip 00:00: BLOOD [place] GLUCOSE Medical MONITORING [facility] 2022-0 Yes [id number] USE TWICE Univers MICROFILL 4-05 DAILY FOR ity o f strip 00:00: BLOOD [place] GLUCOSE Medical MONITORING [facility] 2022-0 Yes [id number] USE TWICE Univers MICROFILL 4-05 DAILY FOR ity o f strip 00:00: BLOOD [place] GLUCOSE Medical MONITORING [facility] 2022-0 Yes [id number] USE TWICE Univers MICROFILL 4-05 DAILY FOR ity o f strip 00:00: BLOOD [place] GLUCOSE Medical MONITORING [facility] 2022-0 Yes [id number] USE TWICE Univers MICROFILL 4-05 DAILY FOR ity o f strip 00:00: BLOOD [place] 00 GLUCOSE Medical MONITORING [facility] 3-0 Yes [id number] USE TWICE Univers MICROFILL 4-05 DAILY FOR ity o f strip 00:00: BLOOD [place] 00 GLUCOSE Medical MONITORING [facility] 3-0 Yes [id number] USE TWICE Univers MICROFILL 4-05 DAILY FOR ity o f strip 00:00: BLOOD [place] 00 GLUCOSE Medical MONITORING [facility] 3-0 Yes [id number] USE TWICE Univers MICROFILL 4-05 DAILY FOR ity o f strip 00:00: BLOOD [place] 00 GLUCOSE Medical MONITORING [facility] 3-0 Yes [id number] USE TWICE Univers MICROFILL 4-05 DAILY FOR ity o f strip 00:00: BLOOD [place] 00 GLUCOSE Medical MONITORING [facility] 3-0 Yes [id number] USE TWICE Univers MICROFILL 4-05 DAILY FOR ity o f strip 00:00: BLOOD [place] 00 GLUCOSE Medical MONITORING [facility] 3-0 2023- No [id number] USE TWICE Univers MICROFILL 4-05 08-11 DAILY FOR ity of strip 00:00: 00:00 BLOOD [place] 00 :00 GLUCOSE Medical MONITORING [facility] 2022-0 2023- No [id number] USE TWICE Univers MICROFILL 405 08-11 DAILY FOR ity of strip 00:00: 00:00 BLOOD [place] 00 :00 GLUCOSE Medical MONITORING Branch Insulin 2022-0 Yes [id number] Use as Univ ers [place], 3-30 directed ity of Disposable, 00:00: twice [place] (PEN 00 daily to Medical NEEDLE) 32 inject Branch gauge x insulin; " Ndle ICD-10 E11.65 blood sugar 2022-0 Yes [id number] USE TWICE [facility] diagnostic 3-30 DAILY FOR ity of (ASCENSIA 00:00: BLOOD [place] MICROFILL) 00 GLUCOSE Medica l strip MONITORING Branch Insulin Asp 2022-0 Yes [id number] INJECT 20 [facility] Prt-Insulin 3-30 UNITS ity of Aspart 00:00: UNDER THE [place] (NOVOLOG 00 SKIN 2 Medical MIX 70-30) (TWO) Branch 100 unit/mL TIMES (70-30) DAILY injection BEFORE BREAKFAST AND DINNER. Insulin 2022-0 Yes [id number] Use as Univ ers [place], 3-30 directed ity of Disposable, 00:00: twice [place] (PEN 00 daily to Medical NEEDLE) 32 inject Branch gauge x insulin; " Ndle ICD-10 E11.65 blood sugar 2022-0 Yes [id number] USE TWICE [facility] diagnostic 3-30 DAILY FOR ity of (ASCENSIA 00:00: BLOOD [place] MICROFILL) 00 GLUCOSE Medica l strip MONITORING Branch Insulin Asp 2022-0 Yes [id number] INJECT 28 [facility] Prt-Insulin 3-30 UNITS ity of Aspart 00:00: UNDER THE [place] (NOVOLOG 00 SKIN 2 Medical MIX 70-30) (TWO) Branch 100 unit/mL TIMES (70-30) DAILY injection BEFORE BREAKFAST AND DINNER. lisinopriL 2022-0 Yes [id number] 20mg Take 1 U nivers 20 mg 3-30 tablet by ity of tablet 00:00: mouth in [place] 00 the Medical morning. Branch Insulin 2022-0 Yes [id number] Use as Univ ers [place], 3-30 directed ity of Disposable, 00:00: twice [place] (PEN 00 daily to Medical NEEDLE) 32 inject Branch gauge x insulin; " Ndle ICD-10 E11.65 blood sugar 2022-0 Yes [id number] USE TWICE [facility] diagnostic 3-30 DAILY FOR ity of (ASCENSIA 00:00: BLOOD [place] MICROFILL) 00 GLUCOSE Medica l strip MONITORING Branch Insulin Asp 0 Yes [id number] INJECT 28 [facility] Prt-Insulin 3-30 UNITS ity of Aspart 00:00: UNDER THE [place] (NOVOLOG 00 SKIN 2 Medical MIX 70-30) (TWO) Branch 100 unit/mL TIMES (70-30) DAILY injection BEFORE BREAKFAST AND DINNER. lisinopriL 2022-0 Yes [id number] 20mg Take 1 U nivers 20 mg 3-30 tablet by ity of tablet 00:00: mouth in [place] 00 the Medical morning. Branch Insulin 2022-0 Yes [id number] Use as Univ ers [place], 3-30 directed ity of Disposable, 00:00: twice [place] (PEN 00 daily to Medical NEEDLE) 32 inject Branch gauge x insulin; " Ndle ICD-10 E11.65 blood sugar Yes [id number] USE TWICE [facility] diagnostic 3-30 DAILY FOR ity of (ASCENSIA 00:00: BLOOD [place] MICROFILL) 00 GLUCOSE Medica l strip MONITORING Branch Insulin Asp Yes [id number] INJECT 28 [facility] Prt-Insulin 3-30 UNITS ity of Aspart 00:00: UNDER THE [place] (NOVOLOG 00 SKIN 2 Medical MIX 70-30) (TWO) Branch 100 unit/mL TIMES (70-30) DAILY injection BEFORE BREAKFAST AND DINNER. lisinopriL 2022-0 Yes [id number] 20mg Take 1 U nivers 20 mg 3-30 tablet by ity of tablet 00:00: mouth in [place] 00 the Medical morning. Branch Insulin 2022-0 Yes [id number] Use as Univ ers [place], 3-30 directed ity of Disposable, 00:00: twice [place] (PEN 00 daily to Medical NEEDLE) 32 inject Branch gauge x insulin; " Ndle ICD-10 E11.65 blood sugar Yes [id number] USE TWICE [facility] diagnostic 3-30 DAILY FOR ity of (ASCENSIA 00:00: BLOOD [place] MICROFILL) 00 GLUCOSE Medica l strip MONITORING Branch Insulin Asp 0 Yes [id number] INJECT 28 [facility] Prt-Insulin 3-30 UNITS ity of Aspart 00:00: UNDER THE [place] (NOVOLOG 00 SKIN 2 Medical MIX 70-30) (TWO) Branch 100 unit/mL TIMES (70-30) DAILY injection BEFORE BREAKFAST AND DINNER. lisinopriL 2022-0 Yes [id number] 20mg Take 1 U nivers 20 mg 3-30 tablet by ity of tablet 00:00: mouth in [place] 00 the Medical morning. Branch Insulin 2022-0 Yes [id number] Use as Univ ers [place], 3-30 directed ity of Disposable, 00:00: twice [place] (PEN 00 daily to Medical NEEDLE) 32 inject Branch gauge x insulin; " Ndle ICD-10 E11.65 blood sugar 2022-0 Yes [id number] USE TWICE [facility] diagnostic 3-30 DAILY FOR ity of (ASCENSIA 00:00: BLOOD [place] MICROFILL) 00 GLUCOSE Medica l strip MONITORING Branch Insulin Asp 2022-0 Yes [id number] INJECT 28 [facility] Prt-Insulin 3-30 UNITS ity of Aspart 00:00: UNDER THE [place] (NOVOLOG 00 SKIN 2 Medical MIX 70-30) (TWO) Branch 100 unit/mL TIMES (70-30) DAILY injection BEFORE BREAKFAST AND DINNER. lisinopriL 2022-0 Yes [id number] 20mg Take 1 U nivers 20 mg 3-30 tablet by ity of tablet 00:00: mouth in [place] 00 the Medical morning. Branch Insulin 2022-0 Yes [id number] Use as Univ ers [place], 3-30 directed ity of Disposable, 00:00: twice [place] (PEN 00 daily to Medical NEEDLE) 32 inject Branch gauge x insulin; " Ndle ICD-10 E11.65 blood sugar 2022-0 Yes [id number] USE TWICE [facility] diagnostic 3-30 DAILY FOR ity of (ASCENSIA 00:00: BLOOD [place] MICROFILL) 00 GLUCOSE Medica l strip MONITORING Branch Insulin Asp 2022-0 Yes [id number] INJECT 28 [facility] Prt-Insulin 3-30 UNITS ity of Aspart 00:00: UNDER THE [place] (NOVOLOG 00 SKIN 2 Medical MIX 70-30) (TWO) Branch 100 unit/mL TIMES (70-30) DAILY injection BEFORE BREAKFAST AND DINNER. lisinopriL 2022-0 Yes [id number] 20mg Take 1 U nivers 20 mg 3-30 tablet by ity of tablet 00:00: mouth in [place] 00 the Medical morning. Branch Insulin 2022-0 Yes [id number] Use as Univ ers [place], 3-30 directed ity of Disposable, 00:00: twice [place] (PEN 00 daily to Medical NEEDLE) 32 inject Branch gauge x insulin; " Ndle ICD-10 E11.65 blood sugar 2022-0 Yes [id number] USE TWICE [facility] diagnostic 3-30 DAILY FOR ity of (ASCENSIA 00:00: BLOOD [place] MICROFILL) 00 GLUCOSE Medica l strip MONITORING Branch Insulin Asp 2022-0 Yes [id number] INJECT 28 [facility] Prt-Insulin 3-30 UNITS ity of Aspart 00:00: UNDER THE [place] (NOVOLOG 00 SKIN 2 Medical MIX 70-30) (TWO) Branch 100 unit/mL TIMES (70-30) DAILY injection BEFORE BREAKFAST AND DINNER. lisinopriL 2022-0 Yes [id number] 20mg Take 1 U nivers 20 mg 3-30 tablet by ity of tablet 00:00: mouth in [place] 00 the Medical morning. Branch Insulin 2022-0 Yes [id number] Use as Univ ers [place], 3-30 directed ity of Disposable, 00:00: twice [place] (PEN 00 daily to Medical NEEDLE) 32 inject Branch gauge x insulin; " Ndle ICD-10 E11.65 blood sugar 2022-0 Yes [id number] USE TWICE [facility] diagnostic 3-30 DAILY FOR ity of (ASCENSIA 00:00: BLOOD [place] MICROFILL) 00 GLUCOSE Medica l strip MONITORING Branch Insulin Asp 2022-0 Yes [id number] INJECT 28 [facility] Prt-Insulin 3-30 UNITS ity of Aspart 00:00: UNDER THE [place] (NOVOLOG 00 SKIN 2 Medical MIX 70-30) (TWO) Branch 100 unit/mL TIMES (70-30) DAILY injection BEFORE BREAKFAST AND DINNER. lisinopriL 2022-0 Yes [id number] 20mg Take 1 U nivers 20 mg 3-30 tablet by ity of tablet 00:00: mouth in [place] 00 the Medical morning. Branch Insulin 2022-0 Yes [id number] Use as [facility] [place], 3-30 directed ity of Disposable, 00:00: twice [place] (PEN 00 daily to Medical NEEDLE) 32 inject Branch gauge x insulin; " Ndle ICD-10 E11.65 Insulin Asp 2022-0 Yes [id number] INJECT 28 [facility] Prt-Insulin 3-30 UNITS ity of Aspart 00:00: UNDER THE [place] (NOVOLOG 00 SKIN 2 Medical MIX 70-30) (TWO) Branch 100 unit/mL TIMES (70-30) DAILY injection BEFORE BREAKFAST AND DINNER. lisinopriL 2023-0 Yes [id number] 20mg Take 1 [facility] nivers 20 mg 3-30 tablet by ity of tablet 00:00: mouth in [place] 00 the Medical morning. Branch Insulin 3-0 Yes [id number] Use as [facility] [place], 3-30 directed ity of Disposable, 00:00: twice [place] (PEN 00 daily to Medical NEEDLE) 32 inject Branch gauge x insulin; " Ndle ICD-10 E11.65 Insulin Asp 2022-0 Yes [id number] INJECT 28 [facility] Prt-Insulin 3-30 UNITS ity of Aspart 00:00: UNDER THE [place] (NOVOLOG 00 SKIN 2 Medical MIX 70-30) (TWO) Branch 100 unit/mL TIMES (70-30) DAILY injection BEFORE BREAKFAST AND DINNER. lisinopriL 2023-0 Yes [id number] 20mg Take 1 U nivers 20 mg 3-30 tablet by ity of tablet 00:00: mouth in [place] 00 the Medical morning. Branch Insulin 2022-0 Yes [id number] Use as [facility] [place], 3-30 directed ity of Disposable, 00:00: twice [place] (PEN 00 daily to Medical NEEDLE) 32 inject Branch gauge x insulin; " Ndle ICD-10 E11.65 Insulin Asp 2022-0 Yes [id number] INJECT 28 [facility] Prt-Insulin 3-30 UNITS ity of Aspart 00:00: UNDER THE [place] (NOVOLOG 00 SKIN 2 Medical MIX 70-30) (TWO) Branch 100 unit/mL TIMES (70-30) DAILY injection BEFORE BREAKFAST AND DINNER. lisinopriL 3-0 Yes [id number] 20mg Take 1 [facility] n[facility] 20 mg 3-30 tablet by ity of tablet 00:00: mouth in [place] 00 the Medical morning. Branch Insulin 3-0 Yes [id number] Use as [facility] [place], 3-30 directed ity of Disposable, 00:00: twice [place] (PEN 00 daily to Medical NEEDLE) 32 inject Branch gauge x insulin; " Ndle ICD-10 E11.65 Insulin Asp 2022-0 Yes [id number] INJECT 28 [facility] Prt-Insulin 3-30 UNITS ity of Aspart 00:00: UNDER THE [place] (NOVOLOG 00 SKIN 2 Medical MIX 70-30) (TWO) Branch 100 unit/mL TIMES (70-30) DAILY injection BEFORE BREAKFAST AND DINNER. lisinopriL 3-0 Yes [id number] 20mg Take 1 [facility] n[facility] 20 mg 3-30 tablet by ity of tablet 00:00: mouth in [place] 00 the Medical morning. Branch Insulin 2022-0 Yes [id number] Use as [facility] [place], 3-30 directed ity of Disposable, 00:00: twice [place] (PEN 00 daily to Medical NEEDLE) 32 inject Branch gauge x insulin; 5/" Ndle ICD-10 E11.65 Insulin Asp 2022-0 Yes [id number] INJECT 28 [facility] Prt-Insulin 3-30 UNITS ity of Aspart 00:00: UNDER THE [place] (NOVOLOG 00 SKIN 2 Medical MIX 70-30) (TWO) Branch 100 unit/mL TIMES (70-30) DAILY injection BEFORE BREAKFAST AND DINNER. lisinopriL 2022-0 Yes [id number] 20mg Take 1 [facility] nivers 20 mg 3-30 tablet by ity of tablet 00:00: mouth in [place] 00 the Medical morning. Branch Insulin 2022-0 Yes [id number] Use as [facility] [place], 3-30 directed ity of Disposable, 00:00: twice [place] (PEN 00 daily to Medical NEEDLE) 32 inject Branch gauge x insulin; " Ndle ICD-10 E11.65 Insulin Asp 2022-0 Yes [id number] INJECT 28 [facility] Prt-Insulin 3-30 UNITS ity of Aspart 00:00: UNDER THE [place] (NOVOLOG 00 SKIN 2 Medical MIX 70-30) (TWO) Branch 100 unit/mL TIMES (70-30) DAILY injection BEFORE BREAKFAST AND DINNER. lisinopriL 3-0 Yes [id number] 20mg Take 1 [facility] 20 mg 3-30 tablet by ity of tablet 00:00: mouth in [place] 00 the Medical morning. Branch Insulin 2022-0 Yes [id number] Use as [facility] [place], 3-30 directed ity of Disposable, 00:00: twice [place] (PEN 00 daily to Medical NEEDLE) 32 inject Branch gauge x insulin; " Ndle ICD-10 E11.65 Insulin 2022-0 Yes [id number] Use as [facility] [place], 3-30 directed ity of Disposable, 00:00: twice [place] (PEN 00 daily to Medical NEEDLE) 32 inject Branch gauge x insulin; 5/32" Ndle ICD-10 E11.65 Insulin Asp 2022-0 Yes [id number] INJECT 28 [facility] Prt-Insulin 3-30 UNITS ity of Aspart 00:00: UNDER THE [place] (NOVOLOG 00 SKIN 2 Medical MIX 70-30) (TWO) Branch 100 unit/mL TIMES (70-30) DAILY injection BEFORE BREAKFAST AND DINNER. lisinopriL 2022-0 Yes [id number] 20mg Take 1 [facility] 20 mg 3-30 tablet by ity of tablet 00:00: mouth in [place] 00 the Medical morning. Branch Insulin 2022-0 Yes [id number] Use as [facility] [place], 3-30 directed ity of Disposable, 00:00: twice [place] (PEN 00 daily to Medical NEEDLE) 32 inject Branch gauge x insulin; 5/" Ndle ICD-10 E11.65 Insulin Asp 2022-0 Yes [id number] INJECT 28 [facility] Prt-Insulin 3-30 UNITS ity of Aspart 00:00: UNDER THE [place] (NOVOLOG 00 SKIN 2 Medical MIX 70-30) (TWO) Branch 100 unit/mL TIMES (70-30) DAILY injection BEFORE BREAKFAST AND DINNER. lisinopriL 2022-0 Yes [id number] 20mg Take 1 U nivers 20 mg 3-30 tablet by ity of tablet 00:00: mouth in [place] the Medical morning. Branch Insulin 2022-0 Yes [id number] Use as [facility] [place], 3-30 directed ity of Disposable, 00:00: twice [place] (PEN 00 daily to Medical NEEDLE) 32 inject Branch gauge x insulin; " Ndle ICD-10 E11.65 lisinopriL 2022-0 Yes [id number] 20mg Take 1 [facility] nivers 20 mg 3-30 tablet by ity of tablet 00:00: mouth in [place] the Medical morning. Branch Insulin 2022-0 Yes [id number] Use as [facility] [place], 3-30 directed ity of Disposable, 00:00: twice [place] (PEN 00 daily to Medical NEEDLE) 32 inject Branch gauge x insulin; 5/32" Ndle ICD-10 E11.65 lisinopriL 2022-0 Yes [id number] 20mg Take 1 [facility] nivers 20 mg 3-30 tablet by ity of tablet 00:00: mouth in [place] 00 the Medical morning. Branch Insulin 2022-0 Yes [id number] Use as [facility] [place], 3-30 directed ity of Disposable, 00:00: twice [place] (PEN 00 daily to Medical NEEDLE) 32 inject Branch gauge x insulin; 5/32" Ndle ICD-10 E11.65 lisinopriL 2022-0 Yes [id number] 20mg Take 1 [facility] nivers 20 mg 3-30 tablet by ity of tablet 00:00: mouth in [place] 00 the Medical morning. Branch Insulin 2022-0 Yes [id number] Use as [facility] [place], 3-30 directed ity of Disposable, 00:00: twice [place] (PEN 00 daily to Medical NEEDLE) 32 inject Branch gauge x insulin; 5/32" Ndle ICD-10 E11.65 lisinopriL 2022-0 Yes [id number] 20mg Take 1 [facility] n[facility] 20 mg 3-30 tablet by ity of tablet 00:00: mouth in [place] the Medical morning. Branch Insulin 2022-0 Yes [id number] Use as [facility] [place], 3-30 directed ity of Disposable, 00:00: twice [place] (PEN 00 daily to Medical NEEDLE) 32 inject Branch gauge x insulin; 5/32" Ndle ICD-10 E11.65 lisinopriL 2022-0 Yes [id number] 20mg Take 1 [facility] nivers 20 mg 3-30 tablet by ity of tablet 00:00: mouth in [place] the Medical morning. Branch Insulin 2022-0 Yes [id number] Use as [facility] [place], 3-30 directed ity of Disposable, 00:00: twice [place] (PEN 00 daily to Medical NEEDLE) 32 inject Branch gauge x insulin; 5/32" Ndle ICD-10 E11.65 lisinopriL 2022-0 Yes [id number] 20mg Take 1 [facility] n[facility] 20 mg 3-30 tablet by ity of tablet 00:00: mouth in [place] the Medical morning. Branch Insulin 2022-0 Yes [id number] Use as [facility] [place], 3-30 directed ity of Disposable, 00:00: twice [place] (PEN 00 daily to Medical NEEDLE) 32 inject Branch gauge x insulin; 5/32" Ndle ICD-10 E11.65 lisinopriL 2022-0 Yes [id number] 20mg Take 1 [facility] nivers 20 mg 3-30 tablet by ity of tablet 00:00: mouth in [place] 00 the Medical morning. Branch Insulin 2022-0 Yes [id number] Use as [facility] [place], 3-30 directed ity of Disposable, 00:00: twice [place] (PEN 00 daily to Medical NEEDLE) 32 inject Branch gauge x insulin; 5/32" Ndle ICD-10 E11.65 lisinopriL 2022-0 Yes [id number] 20mg Take 1 [facility] nivers 20 mg 3-30 tablet by ity of tablet 00:00: mouth in [place] 00 the Medical morning. Branch Insulin 2022-0 Yes [id number] Use as [facility] [place], 3-30 directed ity of Disposable, 00:00: twice [place] (PEN 00 daily to Medical NEEDLE) 32 inject Branch gauge x insulin; 5/32" Ndle ICD-10 E11.65 lisinopriL 2022-0 Yes [id number] 20mg Take 1 [facility] nivers 20 mg 3-30 tablet by ity of tablet 00:00: mouth in [place] the Medical morning. Branch Insulin 2022-0 Yes [id number] Use as [facility] [place], 3-30 directed ity of Disposable, 00:00: twice [place] (PEN 00 daily to Medical NEEDLE) 32 inject Branch gauge x insulin; 5/32" Ndle ICD-10 E11.65 lisinopriL 2022-0 Yes [id number] 20mg Take 1 U nivers 20 mg 3-30 tablet by ity of tablet 00:00: mouth in [place] the Medical morning. Branch Insulin 2022-0 Yes [id number] Use as [facility] [place], 3-30 directed ity of Disposable, 00:00: twice [place] (PEN 00 daily to Medical NEEDLE) 32 inject Branch gauge x insulin; 5/32" Ndle ICD-10 E11.65 lisinopriL 2022-0 Yes [id number] 20mg Take 1 [facility] nivers 20 mg 3-30 tablet by ity of tablet 00:00: mouth in [place] the Medical morning. Branch Insulin 2022-0 Yes [id number] Use as [facility] [place], 3-30 directed ity of Disposable, 00:00: twice [place] (PEN 00 daily to Medical NEEDLE) 32 inject Branch gauge x insulin; 5/32" Ndle ICD-10 E11.65 lisinopriL 2022-0 Yes [id number] 20mg Take 1 [facility] nivers 20 mg 3-30 tablet by ity of tablet 00:00: mouth in [place] 00 the Medical morning. Branch Insulin 2022-0 Yes [id number] Use as [facility] [place], 3-30 directed ity of Disposable, 00:00: twice [place] (PEN 00 daily to Medical NEEDLE) 32 inject Branch gauge x insulin; " Ndle ICD-10 E11.65 lisinopriL 2023-0 Yes [id number] 20mg Take 1 [facility] nivers 20 mg 3-30 tablet by ity of tablet 00:00: mouth in [place] the Medical morning. Branch Insulin 3-0 Yes [id number] Use as [facility] [place], 3-30 directed ity of Disposable, 00:00: twice [place] (PEN 00 daily to Medical NEEDLE) 32 inject Branch gauge x insulin; " Ndle ICD-10 E11.65 lisinopriL 2023-0 Yes [id number] 20mg Take 1 [facility] nivers 20 mg 3-30 tablet by ity of tablet 00:00: mouth in [place] the Medical morning. Branch lisinopriL 2023-0 Yes [id number] 20mg Take 1 [facility] n[facility] 20 mg 3-30 tablet by ity of tablet 00:00: mouth in [place] the Medical morning. Branch lisinopriL 2023-0 Yes [id number] 20mg Take 1 U nivers 20 mg 3-30 tablet by ity of tablet 00:00: mouth in [place] the Medical morning. Branch lisinopriL 2023-0 Yes [id number] 20mg Take 1 [facility] n[facility] 20 mg 3-30 tablet by ity of tablet 00:00: mouth in [place] the Medical morning. Branch lisinopriL 2023-0 Yes [id number] 20mg Take 1 [facility] n[facility] 20 mg 3-30 tablet by ity of tablet 00:00: mouth in [place] the Medical morning. Branch lisinopriL 2023-0 Yes [id number] 20mg Take 1 [facility] n[facility] 20 mg 3-30 tablet by ity of tablet 00:00: mouth in [place] the Medical morning. Branch lisinopriL 2023-0 Yes [id number] 20mg Take 1 [facility] 20 mg 3-30 tablet by ity of tablet 00:00: mouth in [place] the Medical morning. Branch lisinopriL 2023-0 Yes [id number] 20mg Take 1 [facility] n[facility] 20 mg 3-30 tablet by ity of tablet 00:00: mouth in [place] the Medical morning. Branch lisinopriL 2023-0 Yes [id number] 20mg Take 1 [facility] 20 mg 3-30 tablet by ity of tablet 00:00: mouth in [place] the Medical morning. Branch lisinopriL 2023-0 Yes [id number] 20mg Take 1 [facility] 20 mg 3-30 tablet by ity of tablet 00:00: mouth in [place] the Medical morning. Branch lisinopriL 2023-0 Yes [id number] 20mg Take 1 [facility] 20 mg 3-30 tablet by ity of tablet 00:00: mouth in [place] the Medical morning. Branch lisinopriL 2023-0 Yes [id number] 20mg Take 1 [facility] 20 mg 3-30 tablet by ity of tablet 00:00: mouth in [place] the Medical morning. Branch lisinopriL 2023-0 Yes [id number] 20mg Take 1 [facility] 20 mg 3-30 tablet by ity of tablet 00:00: mouth in [place] the Medical morning. Branch lisinopriL 2023-0 Yes [id number] 20mg Take 1 [facility] 20 mg 3-30 tablet by ity of tablet 00:00: mouth in [place] the Medical morning. Branch lisinopriL 2023-0 Yes [id number] 20mg Take 1 [facility] 20 mg 3-30 tablet by ity of tablet 00:00: mouth in [place] the Medical morning. Branch lisinopriL 2023-0 Yes [id number] 20mg Take 1 [facility] 20 mg 3-30 tablet by ity of tablet 00:00: mouth in [place] the Medical morning. Branch lisinopriL 2023-0 Yes [id number] 20mg Take 1 [facility] 20 mg 3-30 tablet by ity of tablet 00:00: mouth in [place] the Medical morning. Branch lisinopriL 2023-0 Yes [id number] 20mg Take 1 [facility] 20 mg 3-30 tablet by ity of tablet 00:00: mouth in [place] the Medical morning. Branch lisinopriL 2023-0 Yes [id number] 20mg Take 1 [facility] 20 mg 3-30 tablet by ity of tablet 00:00: mouth in [place] the Medical morning. Branch lisinopriL 2023-0 Yes [id number] 20mg Take 1 [facility] 20 mg 3-30 tablet by ity of tablet 00:00: mouth in [place] the Medical morning. Branch lisinopriL 2023-0 Yes [id number] 20mg Take 1 [facility] 20 mg 3-30 tablet by ity of tablet 00:00: mouth in [place] the Medical morning. Branch lisinopriL 2022-0 Yes [id number] 20mg Take 1 [facility] 20 mg 3-30 tablet by ity of tablet 00:00: mouth in [place] the Medical morning. Branch lisinopriL 3-0 Yes [id number] 20mg Take 1 [facility] 20 mg 3-30 tablet by ity of tablet 00:00: mouth in [place] the Medical morning. Branch lisinopriL 2022-0 Yes [id number] 20mg Take 1 [facility] 20 mg 3-30 tablet by ity of tablet 00:00: mouth in [place] the Medical morning. Branch lisinopriL 2022-0 Yes [id number] 20mg Take 1 [facility] 20 mg 3-30 tablet by ity of tablet 00:00: mouth in [place] the Medical morning. Branch lisinopriL 2022-0 Yes [id number] 20mg Take 1 [facility] 20 mg 3-30 tablet by ity of tablet 00:00: mouth in [place] the morning. Branch lisinopriL 2022-0 Yes [id number] 20mg Take 1 [facility] 20 mg 3-30 tablet by ity of tablet 00:00: mouth in [place] the morning. Branch lisinopriL 2022-0 Yes [id number] 20mg Take 1 [facility] 20 mg 3-30 tablet by ity of tablet 00:00: mouth in [place] the Medical morning. Branch Insulin 2022- No [id number] Use as [facility] [place], 09-17 directed ity of Disposable, 00:00: 00:[place] (PEN 00 :00 daily to Medical NEEDLE) 32 inject Branch gauge x insulin; " Ndle ICD-10 E11.65 Insulin 2022- No [id number] Use as [facility] [place], 09-17 directed ity of Disposable, 00:00: 00:[place] (PEN 00 :00 daily to Medical NEEDLE) 32 inject Branch gauge x insulin; " Ndle ICD-10 E11.65 Insulin Asp 2022- No [id number] INJECT 28 [facility] Prt-Insulin 3-30 06-08 UNITS ity of Aspart 00:00: 00:00 UNDER THE [place] (NOVOLOG 00 :00 SKIN 2 Medical MIX 70-30) (TWO) Branch 100 unit/mL TIMES (70-30) DAILY injection BEFORE BREAKFAST AND DINNER. Insulin Asp 2022- No [id number] INJECT 28 [facility] Prt-Insulin 3-30 06-08 UNITS ity of Aspart 00:00: 00:00 UNDER THE [place] (NOVOLOG 00 :00 SKIN 2 Medical MIX 70-30) (TWO) Branch 100 unit/mL TIMES (70-30) DAILY injection BEFORE BREAKFAST AND DINNER. Insulin Asp 2022-0 2022- No [id number] INJECT 28 [facility] Prt-Insulin 3-30 06-08 UNITS ity of Aspart 00:00: 00:00 UNDER THE [place] (NOVOLOG 00 :00 SKIN 2 Medical MIX 70-30) (TWO) Branch 100 unit/mL TIMES (70-30) DAILY injection BEFORE BREAKFAST AND DINNER. Insulin Asp 2022- No [id number] INJECT 28 [facility] Prt-Insulin 3-30 06-08 UNITS ity of Aspart 00:00: 00:00 UNDER THE [place] (NOVOLOG 00 :00 SKIN 2 Medical MIX 70-30) (TWO) Branch 100 unit/mL TIMES (70-30) DAILY injection BEFORE BREAKFAST AND DINNER. blood sugar 2022- No [id number] USE TWICE [facility] diagnostic 3-30 04-05 DAILY FOR ity of (ASCENSIA 00:00: 00:00 BLOOD [place] MICROFILL) 00 :00 GLUCOSE Medica l strip MONITORING Branch blood sugar 2022- No [id number] USE TWICE [facility] diagnostic 3-30 04-05 DAILY FOR ity of (ASCENSIA 00:00: 00:00 BLOOD [place] MICROFILL) 00 :00 GLUCOSE Medica l strip MONITORING Branch Insulin Asp 2022-2022- No [id number] INJECT 20 [facility] Prt-Insulin 3-30 03-30 UNITS ity of Aspart 00:00: 00:00 UNDER THE [place] (NOVOLOG 00 :00 SKIN 2 Medical MIX 70-30) (TWO) Branch 100 unit/mL TIMES (70-30) DAILY injection BEFORE BREAKFAST AND DINNER. Insulin Asp 2022-2022- No [id number] INJECT 20 [facility] Prt-Insulin 3-30 03-30 UNITS ity of Aspart 00:00: 00:00 UNDER THE [place] (NOVOLOG 00 :00 SKIN 2 Medical MIX 70-30) (TWO) Branch 100 unit/mL TIMES (70-30) DAILY injection BEFORE BREAKFAST AND DINNER. Insulin Asp 2022-0 2023- No [id number] INJECT 20 [facility] Prt-Insulin 3-30 03-30 UNITS ity of Aspart 00:00: 00:00 UNDER THE [place] (NOVOLOG 00 :00 SKIN 2 Medical MIX 70-30) (TWO) Branch 100 unit/mL TIMES (70-30) DAILY injection BEFORE BREAKFAST AND DINNER. Insulin Asp 2022-0 2023- No [id number] INJECT 20 [facility] Prt-Insulin 3-30 03-30 UNITS ity of Aspart 00:00: 00:00 UNDER THE [place] (NOVOLOG 00 :00 SKIN 2 Medical MIX 70-30) (TWO) Branch 100 unit/mL TIMES (70-30) DAILY injection BEFORE BREAKFAST AND DINNER. Insulin Asp 2022-0 3- No [id number] INJECT 20 [facility] Prt-Insulin 3-30 03-30 UNITS ity of Aspart 00:00: 00:00 UNDER THE [place] (NOVOLOG 00 :00 SKIN 2 Medical MIX 70-30) (TWO) Branch 100 unit/mL TIMES (70-30) DAILY injection BEFORE BREAKFAST AND DINNER. lisinopriL 2023-0 Yes [id number] 20mg Take 1 U nivers 20 mg 3-28 tablet by ity of tablet 00:00: mouth in [place] 00 the Medical morning. Branch lisinopriL 2023-0 Yes [id number] 20mg Take 1 [facility] n[facility] 20 mg 3-28 tablet by ity of tablet 00:00: mouth in [place] 00 the Medical morning. Branch lisinopriL 2023-0 2023- No [id number] 20mg Take 1 [facility] 20 mg 3-28 03-30 tablet by ity of tablet 00:00: 00:00 mouth in [place] 00 :00 the Medical morning. Branch lisinopriL 2023-0 2023- No [id number] 20mg Take 1 [facility] 20 mg 3-28 03-30 tablet by ity of tablet 00:00: 00:00 mouth in [place] 00 :00 the Medical morning. Branch lisinopriL 2023-0 2023- No [id number] 20mg Take 1 [facility] 20 mg 3-28 03-30 tablet by ity of tablet 00:00: 00:00 mouth in [place] 00 :00 the Medical morning. Branch lisinopriL 2022- No [id number] 20mg Take 1 [facility] 20 mg 3-28 -30 tablet by ity of tablet 00:00: 00:00 mouth in [place] 00 :00 the Medical morning. Branch NaCl 0.9% 2022- No 1000mL at 999 Uni vers (NS) bolus 2-06 mL/hr, ity of infusion 17:15: 18:09 1,000 mL, [place] as 1,000 mL 00 :00 IV Medical Infusion, Branch ONCE, 1 dose, On Wed07/27/22 at 1115, STAT ondansetron 2022- No 4mg 4 mg, Slow [facility] (ZOFRAN 07-27-06 IV Push, ity of (PF)) 16:15: 16:13 ONCE, 1 [place] injection 4 00 :00 dose, On Medi monika mg Wed07/27/22 Branch at 1015, PADMA ondansetron 2022- No 4mg 4 mg, Slow [facility] (ZOFRAN 2 02-06 IV Push, ity of (PF)) 15:30: 15:32 ONCE, 1 [place] injection 4 00 :00 dose, On Medi monika mg Wed07/27/22 Branch at 0930, PADMA nirmatrelvi 2022-0 Yes [id number] 3{tbl} Take 3 [facility] r-ritonavir 2-06 tablets by it y of (PAXLOVID, 00:00: mouth in [place] as EUA,) 300 00 the Medical mg (150 mg morning Branch x 2)-100 mg and 3 tablet tablets in the evening. ondansetron 2022-0 Yes [id number] 4mg Take 1 [facility] 4 mg 2-06 tablet by ity of disintegrat 00:00: mouth [place] ing tablet 00 every 8 Medica l (eight) Branch hours as needed for Nausea and Vomiting (N/V). nirmatrelvi 2022-0 Yes [id number] 3{tbl} Take 3 [facility] r-ritonavir 2-06 tablets by it y of (PAXLOVID, 00:00: mouth in [place] as EUA,) 300 00 the Medical mg (150 mg morning Branch x 2)-100 mg and 3 tablet tablets in the evening. ondansetron 2023-0 Yes [id number] 4mg Take 1 [facility] 4 mg 2-06 tablet by ity of disintegrat 00:00: mouth [place] ing tablet 00 every 8 Medica l (eight) Branch hours as needed for Nausea and Vomiting (N/V). nirmatrelvi 2023-0 Yes [id number] 3{tbl} Take 3 [facility] r-ritonavir 2-06 tablets by it y of (PAXLOVID, 00:00: mouth in [place] as EUA,) 300 00 the Medical mg (150 mg morning Branch x 2)-100 mg and 3 tablet tablets in the evening. ondansetron 2023-0 Yes [id number] 4mg Take 1 [facility] 4 mg 2-06 tablet by ity of disintegrat 00:00: mouth [place] ing tablet 00 every 8 Medica l (eight) Branch hours as needed for Nausea and Vomiting (N/V). nirmatrelvi 2023-0 Yes [id number] 3{tbl} Take 3 [facility] r-ritonavir 2-06 tablets by it y of (PAXLOVID, 00:00: mouth in [place] as EUA,) 300 00 the Medical mg (150 mg morning Branch x 2)-100 mg and 3 tablet tablets in the evening. ondansetron 2023-0 Yes [id number] 4mg Take 1 [facility] 4 mg 2-06 tablet by ity of disintegrat 00:00: mouth [place] ing tablet 00 every 8 Medica l (eight) Branch hours as needed for Nausea and Vomiting (N/V). ondansetron 2023-0 Yes [id number] 4mg Take 1 [facility] 4 mg 2-06 tablet by ity of disintegrat 00:00: mouth [place] ing tablet 00 every 8 Medica l (eight) Branch hours as needed for Nausea and Vomiting (N/V). ondansetron 2023-0 Yes [id number] 4mg Take 1 [facility] 4 mg 2-06 tablet by ity of disintegrat 00:00: mouth [place] ing tablet 00 every 8 Medica l (eight) Branch hours as needed for Nausea and Vomiting (N/V). ondansetron 2023-0 Yes [id number] 4mg Take 1 [facility] 4 mg 2-06 tablet by ity of disintegrat 00:00: mouth [place] ing tablet 00 every 8 Medica l (eight) Branch hours as needed for Nausea and Vomiting (N/V). ondansetron 2023-0 Yes [id number] 4mg Take 1 [facility] 4 mg 2-06 tablet by ity of disintegrat 00:00: mouth [place] ing tablet 00 every 8 Medica l (eight) Branch hours as needed for Nausea and Vomiting (N/V). ondansetron 2023-0 Yes [id number] 4mg Take 1 [facility] 4 mg 2-06 tablet by ity of disintegrat 00:00: mouth [place] ing tablet 00 every 8 Medica l (eight) Branch hours as needed for Nausea and Vomiting (N/V). ondansetron 2023-0 Yes [id number] 4mg Take 1 [facility] 4 mg 2-06 tablet by ity of disintegrat 00:00: mouth [place] ing tablet 00 every 8 Medica l (eight) Branch hours as needed for Nausea and Vomiting (N/V). ondansetron 2023-0 Yes [id number] 4mg Take 1 [facility] 4 mg 2-06 tablet by ity of disintegrat 00:00: mouth [place] ing tablet 00 every 8 Medica l (eight) Branch hours as needed for Nausea and Vomiting (N/V). ondansetron 2023-0 Yes [id number] 4mg Take 1 [facility] 4 mg 2-06 tablet by ity of disintegrat 00:00: mouth [place] ing tablet 00 every 8 Medica l (eight) Branch hours as needed for Nausea and Vomiting (N/V). ondansetron 2023-0 Yes [id number] 4mg Take 1 [facility] 4 mg 2-06 tablet by ity of disintegrat 00:00: mouth [place] ing tablet 00 every 8 Medica l (eight) Branch hours as needed for Nausea and Vomiting (N/V). ondansetron 2023-0 Yes [id number] 4mg Take 1 [facility] 4 mg 2-06 tablet by ity of disintegrat 00:00: mouth [place] ing tablet 00 every 8 Medica l (eight) Branch hours as needed for Nausea and Vomiting (N/V). ondansetron 2023-0 Yes [id number] 4mg Take 1 [facility] 4 mg 2-06 tablet by ity of disintegrat 00:00: mouth [place] ing tablet 00 every 8 Medica l (eight) Branch hours as needed for Nausea and Vomiting (N/V). ondansetron 3-0 Yes [id number] 4mg Take 1 [facility] 4 mg 2-06 tablet by ity of disintegrat 00:00: mouth [place] ing tablet 00 every 8 Medica l (eight) Branch hours as needed for Nausea and Vomiting (N/V). ondansetron 3-0 Yes [id number] 4mg Take 1 [facility] 4 mg 2-06 tablet by ity of disintegrat 00:00: mouth [place] ing tablet 00 every 8 Medica l (eight) Branch hours as needed for Nausea and Vomiting (N/V). ondansetron 3-0 Yes [id number] 4mg Take 1 [facility] 4 mg 2-06 tablet by ity of disintegrat 00:00: mouth [place] ing tablet 00 every 8 Medica l (eight) Branch hours as needed for Nausea and Vomiting (N/V). ondansetron 3-0 Yes [id number] 4mg Take 1 [facility] 4 mg 2-06 tablet by ity of disintegrat 00:00: mouth [place] ing tablet 00 every 8 Medica l (eight) Branch hours as needed for Nausea and Vomiting (N/V). ondansetron 3-0 Yes [id number] 4mg Take 1 [facility] 4 mg 2-06 tablet by ity of disintegrat 00:00: mouth [place] ing tablet 00 every 8 Medica l (eight) Branch hours as needed for Nausea and Vomiting (N/V). ondansetron 3-0 Yes [id number] 4mg Take 1 [facility] 4 mg 2-06 tablet by ity of disintegrat 00:00: mouth [place] ing tablet 00 every 8 Medica l (eight) Branch hours as needed for Nausea and Vomiting (N/V). ondansetron 3-0 2023- No [id number] 4mg Take 1 [facility] 4 mg 2-06 06-08 tablet by ity of disintegrat 00:00: 00:00 [place] ing tablet 00 :00 every 8 Medica l (eight) Branch hours as needed for Nausea and Vomiting (N/V). ondansetron 3-0 2023- No [id number] 4mg Take 1 [facility] 4 mg 2-06 06-08 tablet by ity of disintegrat 00:00: 00:00 [place] ing tablet 00 :00 every 8 Medica l (eight) Branch hours as needed for Nausea and Vomiting (N/V). ondansetron 2022- No [id number] 4mg Take 1 [facility] 4 mg 2-11 24-08 tablet by ity of disintegrat 00:00: 00:00 [place] ing tablet 00 :00 every 8 Medica l (eight) Branch hours as needed for Nausea and Vomiting (N/V). ondansetron No [id number] 4mg Take 1 [facility] 4 mg 2-08 tablet by ity of disintegrat 00:00: 00:00 [place] ing tablet 00 :00 every 8 Medica l (eight) Branch hours as needed for Nausea and Vomiting (N/V). nirmatrelvi 2022- No [id number] 3{tbl} Take 3 [facility] r-ritonavir 2- 03-30 tablets by i ty of (PAXLOVID, 00:00: 00:00 mouth in [place] EUA,) 300 00 :00 the Medical mg (150 mg morning Branch x 2)-100 mg and 3 tablet tablets in the evening. nirmatrelvi 2022- No [id number] 3{tbl} Take 3 Univers r-ritonavir 2- 03-30 tablets by i ty of (PAXLOVID, 00:00: 00:00 mouth in [place] EU[place],) 300 00 :00 the Medical mg (150 mg morning Branch x 2)-100 mg and 3 tablet tablets in the evening. nirmatrelvi 2022- No [id number] 3{tbl} Take 3 Univers r-ritonavir 2-06 03-30 tablets by i ty of (PAXLOVID, 00:00: 00:00 mouth in [place] EU[place],) 300 00 :00 the Medical mg (150 mg morning Branch x 2)-100 mg and 3 tablet tablets in the evening. nirmatrelvi 2022- No [id number] 3{tbl} Take 3 Univers r-ritonavir 2-06 03-30 tablets by i ty of (PAXLOVID, 00:00: 00:00 mouth in [place] EU[place],) 300 00 :00 the Medical mg (150 mg morning Branch x 2)-100 mg and 3 tablet tablets in the evening. nirmatrelvi 2022- No [id number] 3{tbl} Take 3 Univers r-ritonavir 2-06 03-30 tablets by i ty of (PAXLOVID, 00:00: 00:00 mouth in [place] EU[place],) 300 00 :00 the Medical mg (150 mg morning Branch x 2)-100 mg and 3 tablet tablets in the evening. D10W 10 % 2021-06 Yes at 20-40 Univ ers IV infusion 2-29 mL/hr, IV ity of 16:28: Infusion, [place] 11 TITRATE, Medical Starting Branch on [facility] 06/18/22 at 1028, Until Discontinu ed, Routine, CV Preprocedu re D10W 10 % 2021-06- No at 20-40 Uni vers IV infusion 2-29 12-29 mL/hr, IV it y of 16:28: 20:34 Infusion, [place] 11 :21 TITRATE, Medical Starting Branch on [facility] 06/18/22 at 1028, Until [facility] 06/18/22 at 1434, Routine, CV Preprocedu re iopamidol 2021-06- No ONCE INTRA U nivers (ISOVUE 06-18 PROCEDURE, ity o f 370-500 mL) 15:56: 16:17 [place] injection 00 :44 on [facility] Medical 06/18/22 Branch at 0956, Until [place] 06/18/22 at 1017, Routine, CV Intraproce dure nitroglycer 2021-06- No ONCE INTRA Univers in (TRIDIL) 06-18 PROCEDURE, i ty of 2 mg in 10 15:41: 16:17 Starting [place] mL D5W for 29 :44 on [facility] Cardiac 06/18/22 Branch Cath at 0941, Until [place] 06/18/22 at 1017, Routine, CV Intraproce dure heparin 2021-06- No ONCE INTRA Uni vers 1,000 06-18 PROCEDURE, ity of unit/mL 15:41: 16:17 Starting [place] injection 09 :44 on [facility] 06/18/22 Branch at 0941, Until [facility] 06/18/22 at 1017, Routine, CV Intraproce dure lidocaine 2021-06- No ONCE INTRA U nivers 1% (PF) 06-18 PROCEDURE, ity o f (XYLOCAINE) 15:34: 16:17 Starting [place] injection 00 :44 on [facility] 06/18/22 Branch at 0934, Until [facility] 06/18/22 at 1017, Routine, CV Intraproce dure midazolam 2021-06- No ONCE INTRA U nivers (VERSED) 06-18 PROCEDURE, ity of injection 15:22: 16:17 Starting [place] as 00 :44 on [facility] 06/18/22 [place] at 0922, Until [facility] 06/18/22 at 1017, Routine, CV Intraproce dure FENTanyl PF 2021-06- No ONCE INTRA Univers (SUBLIMAZE 06-18 PROCEDURE, it y of (PF)) 15:22: 16:17 Starting [place] injection 00 :44 on [facility] 06/18/22 Branch at 0922, Until [facility] 06/18/22 at 1017, Routine, CV Intraproce dure aspirin 2021-06 Yes [id number] 325mg 325 mg, U nivers tablet 325 Oral, ity of mg 15:00: DAILY, [place] 00 First dose Medical on [facility] 06/18/22 at 0900, Until Discontinu ed, Routine aspirin 2021-06- No [id number] 325mg 325 mg, Univers tablet 325 06-18 Oral, ity of mg 15:00: 20:34 DAILY, [place] 00 :21 First dose Medical on [facility] 06/18/22 at 0900, Until Discontinu ed, Routine aspirin 2021-06 Yes 81mg Take 81 mg Univ ers (ADULT LOW 2-29 by mouth ity o f DOSE 12:29: daily. [place] ASPIRIN) 81 19 Medical mg EC Branch tablet CBD-KINGS 2021-06 Yes Apply to Univ ers WITH 2-29 area(s). ity of LIDOCAINE 12:29: [place] TOPICAL 19 Medical Branch aspirin 2021-06 Yes [...] Branch tablet CBD-KINGS 2021-06 Yes Apply to Uni vers WITH 2-29 area(s). ity of LIDOCAINE 12:29: [...] mouth ity o f DOSE 12:29: daily. [place] ASPIRIN) 81 19 Medical mg EC Branch tablet CBD-KINGS 2021-06 Yes Apply to Univ ers WITH 2-29 area(s). ity of LIDOCAINE 12:29: [place] TOPICAL 19 Medical Branch aspirin 2021-06 Yes 81mg Take 81 mg Univ ers (ADULT LOW 2-29 by mouth ity o f DOSE 12:29: daily. [place] ASPIRIN) 81 19 Medical mg EC Branch tablet aspirin 2021-06 Yes 81mg Take 81 mg Univ ers (ADULT LOW 2-29 by mouth ity o f DOSE 12:29: daily. [place] ASPIRIN) 81 19 Medical mg EC Branch tablet aspirin 2021-06 Yes 81mg Take 81 mg Univ ers (ADULT LOW 2-29 by mouth ity o f DOSE 12:29: daily. [place] ASPIRIN) 81 19 Medical mg EC Branch tablet aspirin 2021-06 Yes 81mg Take 81 mg Univ ers (ADULT LOW 2-29 by mouth ity o f DOSE 12:29: daily. [place] ASPIRIN) 81 19 Medical mg EC Branch tablet aspirin 2021-06 Yes 81mg Take 81 mg Univ ers (ADULT LOW 2-29 by mouth ity o f DOSE 12:29: daily. [place] ASPIRIN) 81 19 Medical mg EC Branch tablet aspirin 2021-06 Yes 81mg Take 81 mg Univ ers (ADULT LOW 2-29 by mouth ity o f DOSE 12:29: daily. [place] ASPIRIN) 81 19 Medical mg EC Branch tablet aspirin 2021-06 Yes 81mg Take 81 mg Univ ers (ADULT LOW 2-29 by mouth ity o f DOSE 06:26: daily. [place] ASPIRIN) 81 18 Medical mg EC Branch tablet CBD-KINGS 2021-06 Yes Apply to Univ ers WITH 2-29 area(s). ity of LIDOCAINE 06:26: [place] TOPICAL 18 Medical Branch lisinopriL 2021-06 Yes [id number] 20mg Take 1 U nivers 20 mg 2-29 tablet by ity of tablet 00:00: mouth in [place] 00 the Medical morning. Branch lisinopriL 2021-06 Yes [id number] 20mg Take 1 U nivers 20 mg 2-29 tablet by ity of tablet 00:00: mouth in [place] 00 the Medical morning. Branch lisinopriL 2021-06 Yes [id number] 20mg Take 1 U nivers 20 mg 2-29 tablet by ity of tablet 00:00: mouth in [place] 00 the Medical morning. Branch lisinopriL 2021-1 Yes [id number] 20mg Take 1 U nivers 20 mg 2-29 tablet by ity of tablet 00:00: mouth in [place] 00 the Medical morning. Branch lisinopriL 2021- Yes [id number] 20mg Take 1 U nivers 20 mg 2-29 tablet by ity of tablet 00:00: mouth in [place] 00 the Medical morning. Branch lisinopriL 2021-06 Yes [id number] 20mg Take 1 U nivers 20 mg 2-29 tablet by ity of tablet 00:00: mouth in [place] 00 the Medical morning. Branch lisinopriL 2021-06 Yes [id number] 20mg Take 1 U nivers 20 mg 2-29 tablet by ity of tablet 00:00: mouth in [place] the Medical morning. Branch lisinopriL 2021-06 Yes [id number] 20mg Take 1 U nivers 20 mg 2-29 tablet by ity of tablet 00:00: mouth in [place] the Medical morning. Branch lisinopriL 2021-06 Yes [id number] 20mg Take 1 U nivers 20 mg 2-29 tablet by ity of tablet 00:00: mouth in [place] the Medical morning. Branch lisinopriL 2021-063- No [id number] 20mg Take 1 Univers 20 mg 2-29 03-28 tablet by ity of tablet 00:00: 00:00 mouth in [place] 00 :00 the Medical morning. Branch nystatin 2021-06 Yes [id number] Apply to Univers 100,000 2-12 area(s) 2 ity of unit/gram 00:00: (two) [place] powder 00 times Medical daily. Branch nystatin 2021-1 Yes [id number] Apply to Univers 100,000 2-12 area(s) 2 ity of unit/gram 00:00: (two) [place] powder 00 times Medical daily. Branch nystatin 2021- Yes [id number] Apply to Univers 100,000 2-12 area(s) 2 ity of unit/gram 00:00: (two) [place] powder 00 times Medical daily. Branch nystatin 2021- Yes [id number] Apply to Univers 100,000 2-12 area(s) 2 ity of unit/gram 00:00: (two) [place] powder 00 times Medical daily. Branch nystatin 2021-1 Yes [id number] Apply to Univers 100,000 2-12 area(s) 2 ity of unit/gram 00:00: (two) [place] powder 00 times Medical daily. Branch nystatin 2021-1 Yes [id number] Apply to Univers 100,000 2-12 area(s) 2 ity of unit/gram 00:00: (two) [place] powder 00 times Medical daily. Branch nystatin 2021-1 Yes [id number] Apply to Univers 100,000 2-12 area(s) 2 ity of unit/gram 00:00: (two) [place] powder 00 times Medical daily. Branch nystatin 2021- Yes [id number] Apply to Univers 100,000 2-12 area(s) 2 ity of unit/gram 00:00: (two) [place] powder 00 times Medical daily. Branch nystatin 2021- Yes [id number] Apply to Univers 100,000 2-12 area(s) 2 ity of unit/gram 00:00: (two) [place] powder 00 times Medical daily. Branch nystatin 2021- Yes [id number] Apply to Univers 100,000 2-12 area(s) 2 ity of unit/gram 00:00: (two) [place] powder 00 times Medical daily. Branch nystatin 2021- Yes [id number] Apply to Univers 100,000 2-12 area(s) 2 ity of unit/gram 00:00: (two) [place] powder 00 times Medical daily. Branch nystatin 2021-1 Yes [id number] Apply to Univers 100,000 2-12 area(s) 2 ity of unit/gram 00:00: (two) [place] powder 00 times Medical daily. Branch nystatin 2021-1 Yes [id number] Apply to Univers 100,000 2-12 area(s) 2 ity of unit/gram 00:00: (two) [place] powder 00 times Medical daily. Branch nystatin 2021-1 Yes [id number] Apply to Univers 100,000 2-12 area(s) 2 ity of unit/gram 00:00: (two) [place] powder 00 times Medical daily. Branch nystatin 2021- Yes [id number] Apply to Univers 100,000 2-12 area(s) 2 ity of unit/gram 00:00: (two) [place] powder 00 times Medical daily. Branch nystatin 2021-1 Yes [id number] Apply to Univers 100,000 2-12 area(s) 2 ity of unit/gram 00:00: (two) [place] powder 00 times Medical daily. Branch nystatin 2021-1 Yes [id number] Apply to Univers 100,000 2-12 area(s) 2 ity of unit/gram 00:00: (two) [place] powder 00 times Medical daily. Branch nystatin 2021-1 Yes [id number] Apply to Univers 100,000 2-12 area(s) 2 ity of unit/gram 00:00: (two) [place] powder 00 times Medical daily. Branch nystatin 2021- Yes [id number] Apply to Univers 100,000 2-12 area(s) 2 ity of unit/gram 00:00: (two) [place] powder 00 times Medical daily. Branch nystatin 2021-06 Yes [id number] Apply to Univers 100,000 2-12 area(s) 2 ity of unit/gram 00:00: (two) [place] powder 00 times Medical daily. Branch nystatin 2021- Yes [id number] Apply to Univers 100,000 2-12 area(s) 2 ity of unit/gram 00:00: (two) [place] powder 00 times Medical daily. Branch nystatin 2021- Yes [id number] Apply to Univers 100,000 2-12 area(s) 2 ity of unit/gram 00:00: (two) [place] powder 00 times Medical daily. Branch nystatin 2021-1 Yes [id number] Apply to Univers 100,000 2-12 area(s) 2 ity of unit/gram 00:00: (two) [place] powder 00 times Medical daily. Branch nystatin 2021-1 Yes [id number] Apply to Univers 100,000 2-12 area(s) 2 ity of unit/gram 00:00: (two) [place] powder 00 times Medical daily. Branch nystatin 2021-1 Yes [id number] Apply to Univers 100,000 2-12 area(s) 2 ity of unit/gram 00:00: (two) [place] powder 00 times Medical daily. Branch nystatin 2021-06 Yes [id number] Apply to Univers 100,000 2-12 area(s) 2 ity of unit/gram 00:00: (two) [place] powder 00 times Medical daily. Branch nystatin 2021- Yes [id number] Apply to Univers 100,000 2-12 area(s) 2 ity of unit/gram 00:00: (two) [place] powder 00 times Medical daily. Branch nystatin 2021- Yes [id number] Apply to Univers 100,000 2-12 area(s) 2 ity of unit/gram 00:00: (two) [place] powder 00 times Medical daily. Branch nystatin 2021- Yes [id number] Apply to Univers 100,000 2-12 area(s) 2 ity of unit/gram 00:00: (two) [place] powder 00 times Medical daily. Branch nystatin 2021-06 Yes [id number] Apply to Univers 100,000 2-12 area(s) 2 ity of unit/gram 00:00: (two) [place] powder 00 times Medical daily. Branch nystatin 2021-06 Yes [id number] Apply to Univers 100,000 2-12 area(s) 2 ity of unit/gram 00:00: (two) [place] powder 00 times Medical daily. Branch nystatin 2021- Yes [id number] Apply to Univers 100,000 2-12 area(s) 2 ity of unit/gram 00:00: (two) [place] powder 00 times Medical daily. Branch nystatin 2021- Yes [id number] Apply to Univers 100,000 2-12 area(s) 2 ity of unit/gram 00:00: (two) [place] powder 00 times Medical daily. Branch nystatin 2021- Yes [id number] Apply to Univers 100,000 2-12 area(s) 2 ity of unit/gram 00:00: (two) [place] powder 00 times Medical daily. Branch nystatin 2021- Yes [id number] Apply to Univers 100,000 2-12 area(s) 2 ity of unit/gram 00:00: (two) [place] powder 00 times Medical daily. Branch nystatin 2021- Yes [id number] Apply to Univers 100,000 2-12 area(s) 2 ity of unit/gram 00:00: (two) [place] powder 00 times Medical daily. Branch nystatin 2021-1 Yes [id number] Apply to Univers 100,000 2-12 area(s) 2 ity of unit/gram 00:00: (two) [place] powder 00 times Medical daily. Branch nystatin 2021-1 Yes [id number] Apply to Univers 100,000 2-12 area(s) 2 ity of unit/gram 00:00: (two) [place] powder 00 times Medical daily. Branch nystatin 2021-1 Yes [id number] Apply to Univers 100,000 2-12 area(s) 2 ity of unit/gram 00:00: (two) [place] powder 00 times Medical daily. Branch nystatin 2021-1 Yes [id number] Apply to Univers 100,000 2-12 area(s) 2 ity of unit/gram 00:00: (two) [place] powder 00 times Medical daily. Branch nystatin 2021- Yes [id number] Apply to Univers 100,000 2-12 area(s) 2 ity of unit/gram 00:00: (two) [place] powder 00 times Medical daily. Branch nystatin 2021-1 Yes [id number] Apply to Univers 100,000 2-12 area(s) 2 ity of unit/gram 00:00: (two) [place] powder 00 times Medical daily. Branch nystatin 2021-1 Yes [id number] Apply to Univers 100,000 2-12 area(s) 2 ity of unit/gram 00:00: (two) [place] powder 00 times Medical daily. Branch nystatin 2021-1 Yes [id number] Apply to Univers 100,000 2-12 area(s) 2 ity of unit/gram 00:00: (two) [place] powder 00 times Medical daily. Branch nystatin 2021-1 Yes [id number] Apply to Univers 100,000 2-12 area(s) 2 ity of unit/gram 00:00: (two) [place] powder 00 times Medical daily. Branch nystatin 2-1 Yes [id number] Apply to Univers 100,000 2-12 area(s) 2 ity of unit/gram 00:00: (two) [place] powder 00 times Medical daily. Branch nystatin 2021-1 Yes [id number] Apply to Univers 100,000 2-12 area(s) 2 ity of unit/gram 00:00: (two) [place] powder 00 times Medical daily. Branch nystatin 2021-06 Yes [id number] Apply to Univers 100,000 2-12 area(s) 2 ity of unit/gram 00:00: (two) [place] powder 00 times Medical daily. Branch nystatin 2021-06- No [id number] Apply to Univers 100,000 2-12 08-11 area(s) 2 ity of unit/gram 00:00: 00:00 (two) [place] powder 00 :00 times Medical daily. Branch nystatin 2021-06- No [id number] Apply to Univers 100,000 2-12 08-11 area(s) 2 ity of unit/gram 00:00: 00:00 (two) [place] powder 00 :00 times Medical daily. Branch fluconazole 2021-06- No [id number] 150mg Take 1 Univers 150 mg 08-02- tablet by ity of tablet 00:00: 05:59 mouth [place] 00 :00 every 4 Medical (four) Branch days for 4 doses. promethazin 2021-06 Yes [id number] 5mL Take 5 mL Univers e-dextromet 1-29 by mouth 4 it y of horphan 00:00: (four) [place] 6.25-15 00 times Medical mg/5 mL daily as Branch syrup needed for Cough. promethazin 2021-06 Yes [id number] 5mL Take 5 mL Univers e-dextromet 1-29 by mouth 4 it y of horphan 00:00: (four) [place] 6.25-15 00 times Medical mg/5 mL daily as Branch syrup needed for Cough. promethazin 2021-06 Yes [id number] 5mL Take 5 mL Univers e-dextromet 1-29 by mouth 4 it y of horphan 00:00: (four) [place] 6.25-15 00 times Medical mg/5 mL daily as Branch syrup needed for Cough. promethazin 2021-06 Yes [id number] 5mL Take 5 mL Univers e-dextromet 1-29 by mouth 4 it y of horphan 00:00: (four) [place] 6.25-15 00 times Medical mg/5 mL daily as Branch syrup needed for Cough. promethazin 2021-06 Yes [id number] 5mL Take 5 mL Univers e-dextromet 1-29 by mouth 4 it y of horphan 00:00: (four) [place] 6.25-15 00 times Medical mg/5 mL daily as Branch syrup needed for Cough. promethazin 2021-06 Yes [id number] 5mL Take 5 mL Univers e-dextromet 1-29 by mouth 4 it y of horphan 00:00: (four) [place] 6.25-15 00 times Medical mg/5 mL daily as Branch syrup needed for Cough. promethazin 2021-06 Yes [id number] 5mL Take 5 mL Univers e-dextromet 1-29 by mouth 4 it y of horphan 00:00: (four) [place] 6.25-15 00 times Medical mg/5 mL daily as Branch syrup needed for Cough. promethazin 2021-06 Yes [id number] 5mL Take 5 mL Univers e-dextromet 1-29 by mouth 4 it y of horphan 00:00: (four) [place] 6.25-15 00 times Medical mg/5 mL daily as Branch syrup needed for Cough. promethazin 2021-06 Yes [id number] 5mL Take 5 mL Univers e-dextromet 1-29 by mouth 4 it y of horphan 00:00: (four) [place] 6.25-15 00 times Medical mg/5 mL daily as Branch syrup needed for Cough. promethazin 2021-06 Yes [id number] 5mL Take 5 mL Univers e-dextromet 1-29 by mouth 4 it y of horphan 00:00: (four) [place] 6.25-15 00 times Medical mg/5 mL daily as Branch syrup needed for Cough. promethazin 2021-06 Yes [id number] 5mL Take 5 mL [facility] e-dextromet 1-29 by mouth 4 it y of horphan 00:00: (four) [place] 6.25-15 00 times Medical mg/5 mL daily as Branch syrup needed for Cough. promethazin 2021-06 Yes [id number] 5mL Take 5 mL [facility] e-dextromet 1-29 by mouth 4 it y of horphan 00:00: (four) [place] 6.25-15 00 times Medical mg/5 mL daily as Branch syrup needed for Cough. promethazin 2021-06 Yes [id number] 5mL Take 5 mL [facility] e-dextromet 1-29 by mouth 4 it y of horphan 00:00: (four) [place] 6.25-15 00 times Medical mg/5 mL daily as Branch syrup needed for Cough. promethazin 2021-06 Yes [id number] 5mL Take 5 mL Univers e-dextromet 1-29 by mouth 4 it y of horphan 00:00: (four) [place] 6.25-15 00 times Medical mg/5 mL daily as Branch syrup needed for Cough. promethazin 2021-06 Yes [id number] 5mL Take 5 mL Univers e-dextromet 1-29 by mouth 4 it y of horphan 00:00: (four) [place] 6.25-15 00 times Medical mg/5 mL daily as Branch syrup needed for Cough. promethazin 2021-06 Yes [id number] 5mL Take 5 mL Univers e-dextromet 1-29 by mouth 4 it y of horphan 00:00: (four) [place] 6.25-15 00 times Medical mg/5 mL daily as Branch syrup needed for Cough. promethazin 2021-06 Yes [id number] 5mL Take 5 mL [facility] e-dextromet 1-29 by mouth 4 it y of horphan 00:00: (four) [place] 6.25-15 00 times Medical mg/5 mL daily as Branch syrup needed for Cough. promethazin 2021-06 Yes [id number] 5mL Take 5 mL [facility] e-dextromet 1-29 by mouth 4 it y of horphan 00:00: (four) [place] 6.25-15 00 times Medical mg/5 mL daily as Branch syrup needed for Cough. promethazin 2021-06 Yes [id number] 5mL Take 5 mL [facility] e-dextromet 1-29 by mouth 4 it y of horphan 00:00: (four) [place] 6.25-15 00 times Medical mg/5 mL daily as Branch syrup needed for Cough. promethazin 2021-06 Yes [id number] 5mL Take 5 mL [facility] e-dextromet 1-29 by mouth 4 it y of horphan 00:00: (four) [place] 6.25-15 00 times Medical mg/5 mL daily as Branch syrup needed for Cough. promethazin 2021-06 Yes [id number] 5mL Take 5 mL [facility] e-dextromet 1-29 by mouth 4 it y of horphan 00:00: (four) [place] 6.25-15 00 times Medical mg/5 mL daily as Branch syrup needed for Cough. promethazin 2021-06 Yes [id number] 5mL Take 5 mL Univers e-dextromet 1-29 by mouth 4 it y of horphan 00:00: (four) [place] 6.25-15 00 times Medical mg/5 mL daily as Branch syrup needed for Cough. promethazin 2021-06 Yes [id number] 5mL Take 5 mL [facility] e-dextromet 1-29 by mouth 4 it y of horphan 00:00: (four) [place] 6.25-15 00 times Medical mg/5 mL daily as Branch syrup needed for Cough. promethazin 2021-06 Yes [id number] 5mL Take 5 mL [facility] e-dextromet 1-29 by mouth 4 it y of horphan 00:00: (four) [place] 6.25-15 00 times Medical mg/5 mL daily as Branch syrup needed for Cough. promethazin 2021-06 Yes [id number] 5mL Take 5 mL [facility] e-dextromet 1-29 by mouth 4 it y of horphan 00:00: (four) [place] 6.25-15 00 times Medical mg/5 mL daily as Branch syrup needed for Cough. promethazin 2021-06 Yes [id number] 5mL Take 5 mL [facility] e-dextromet 1-29 by mouth 4 it y of horphan 00:00: (four) [place] 6.25-15 00 times Medical mg/5 mL daily as Branch syrup needed for Cough. promethazin 2021-06 Yes [id number] 5mL Take 5 mL [facility] e-dextromet 1-29 by mouth 4 it y of horphan 00:00: (four) [place] 6.25-15 00 times Medical mg/5 mL daily as Branch syrup needed for Cough. promethazin 2021-06 Yes [id number] 5mL Take 5 mL [facility] e-dextromet 1-29 by mouth 4 it y of horphan 00:00: (four) [place] 6.25-15 00 times Medical mg/5 mL daily as Branch syrup needed for Cough. promethazin 2021-06 Yes [id number] 5mL Take 5 mL [facility] e-dextromet 1-29 by mouth 4 it y of horphan 00:00: (four) [place] 6.25-15 00 times Medical mg/5 mL daily as Branch syrup needed for Cough. promethazin 2021-06 Yes [id number] 5mL Take 5 mL [facility] e-dextromet 1-29 by mouth 4 it y of horphan 00:00: (four) [place] 6.25-15 00 times Medical mg/5 mL daily as Branch syrup needed for Cough. promethazin 2021-06 Yes [id number] 5mL Take 5 mL [facility] e-dextromet 1-29 by mouth 4 it y of horphan 00:00: (four) [place] 6.25-15 00 times Medical mg/5 mL daily as Branch syrup needed for Cough. promethazin 2021-06- No [id number] 5mL Take 5 mL [facility] e-dextromet 1-29 06-08 by mouth 4 i ty of horphan 00:00: 00:00 (four) [place] 6.25-15 00 :00 times Medical mg/5 mL daily as Branch syrup needed for Cough. promethazin 2021-06- No [id number] 5mL Take 5 mL Univers e-dextromet 1-29 06-08 by mouth 4 i ty of horphan 00:00: 00:00 (four) [place] 6.25-15 00 :00 times Medical mg/5 mL daily as Branch syrup needed for Cough. promethazin 2021-06- No [id number] 5mL Take 5 mL Univers e-dextromet 1-29 06-08 by mouth 4 i ty of horphan 00:00: 00:00 (four) [place] 6.25-15 00 :00 times Medical mg/5 mL daily as Branch syrup needed for Cough. promethazin 2021-06- No [id number] 5mL Take 5 mL Univers e-dextromet 1-29 06-08 by mouth 4 i ty of horphan 00:00: 00:00 (four) [place] 6.25-15 00 :00 times Medical mg/5 mL daily as Branch syrup needed for Cough. ESCITALOPRA 2021-06 Yes [id number] TAKE 1 Univers M OXALATE 1-02 TABLET BY ity o f 10 mg 00:00: MOUTH [place] tablet 00 EVERY DAY Medical Branch ESCITALOPRA 2021-06 Yes [id number] TAKE 1 Univers M OXALATE 1-02 TABLET BY ity o f 10 mg 00:00: MOUTH [place] tablet 00 EVERY DAY Medical Branch ESCITALOPRA 2021-06 Yes [id number] TAKE 1 Univers M OXALATE 1-02 TABLET BY ity o f 10 mg 00:00: MOUTH [place] tablet 00 EVERY DAY Medical Branch ESCITALOPRA 2021-06 Yes [id number] TAKE 1 Univers M OXALATE 1-02 TABLET BY ity o f 10 mg 00:00: MOUTH [place] tablet 00 EVERY DAY Medical Branch ESCITALOPRA 2021-06 Yes [id number] TAKE 1 Univers M OXALATE 1-02 TABLET BY ity o f 10 mg 00:00: MOUTH [place] tablet 00 EVERY DAY Medical Branch ESCITALOPRA 2021-06 Yes [id number] TAKE 1 Univers M OXALATE 1-02 TABLET BY ity o f 10 mg 00:00: MOUTH [place] tablet 00 EVERY DAY Medical Branch ESCITALOPRA 2021-06 Yes [id number] TAKE 1 Univers M OXALATE 1-02 TABLET BY ity o f 10 mg 00:00: MOUTH [place] tablet 00 EVERY DAY Medical Branch ESCITALOPRA 2021-06 Yes [id number] TAKE 1 Univers M OXALATE 1-02 TABLET BY ity o f 10 mg 00:00: MOUTH [place] tablet 00 EVERY DAY Medical Branch ESCITALOPRA 2021-06 Yes [id number] TAKE 1 Univers M OXALATE 1-02 TABLET BY ity o f 10 mg 00:00: MOUTH [place] tablet 00 EVERY DAY Medical Branch ESCITALOPRA 2021-06 Yes [id number] TAKE 1 Univers M OXALATE 1-02 TABLET BY ity o f 10 mg 00:00: MOUTH [place] tablet 00 EVERY DAY Medical Branch ESCITALOPRA 2021-06 Yes [id number] TAKE 1 Univers M OXALATE 1-02 TABLET BY ity o f 10 mg 00:00: MOUTH [place] tablet 00 EVERY DAY Medical Branch ESCITALOPRA 2021-06 Yes [id number] TAKE 1 Univers M OXALATE 1-02 TABLET BY ity o f 10 mg 00:00: MOUTH [place] tablet 00 EVERY DAY Medical Branch ESCITALOPRA 2021-06 Yes [id number] TAKE 1 Univers M OXALATE 1-02 TABLET BY ity o f 10 mg 00:00: MOUTH [place] tablet 00 EVERY DAY Medical Branch ESCITALOPRA 2021-06 Yes [id number] TAKE 1 Univers M OXALATE 1-02 TABLET BY ity o f 10 mg 00:00: MOUTH [place] tablet 00 EVERY DAY Medical Branch ESCITALOPRA 2021-06 Yes [id number] TAKE 1 [facility] M OXALATE 1-02 TABLET BY ity o f 10 mg 00:00: MOUTH [place] tablet 00 EVERY DAY Medical Branch ESCITALOPRA 2021-06 Yes [id number] TAKE 1 Univers M OXALATE 1-02 TABLET BY ity o f 10 mg 00:00: MOUTH [place] tablet 00 EVERY DAY Medical Branch ESCITALOPRA 2021-06 Yes [id number] TAKE 1 [facility] M OXALATE 1-02 TABLET BY ity o f 10 mg 00:00: MOUTH [place] tablet 00 EVERY DAY Medical Branch ESCITALOPRA 2021-06 Yes [id number] TAKE 1 [facility] M OXALATE 1-02 TABLET BY ity o f 10 mg 00:00: MOUTH [place] tablet 00 EVERY DAY Medical Branch ESCITALOPRA 2021-06 Yes [id number] TAKE 1 [facility] M OXALATE 1-02 TABLET BY ity o f 10 mg 00:00: MOUTH [place] tablet 00 EVERY DAY Medical Branch ESCITALOPRA 2021-06 Yes [id number] TAKE 1 [facility] M OXALATE 1-02 TABLET BY ity o f 10 mg 00:00: MOUTH [place] tablet 00 EVERY DAY Medical Branch ESCITALOPRA 2021-06 Yes [id number] TAKE 1 [facility] M OXALATE 1-02 TABLET BY ity o f 10 mg 00:00: MOUTH [place] tablet 00 EVERY DAY Medical Branch ESCITALOPRA 2021-06 Yes [id number] TAKE 1 [facility] M OXALATE 1-02 TABLET BY ity o f 10 mg 00:00: MOUTH [place] tablet 00 EVERY DAY [facility] Branch ESCITALOPRA 2021-06 Yes [id number] TAKE 1 [facility] M OXALATE 1-02 TABLET BY ity o f 10 mg 00:00: MOUTH [place] tablet 00 EVERY DAY Medical Branch ESCITALOPRA 2021-06 Yes [id number] TAKE 1 [facility] M OXALATE 1-02 TABLET BY ity o f 10 mg 00:00: MOUTH [place] tablet 00 EVERY DAY Medical Branch ESCITALOPRA 2021-06 Yes [id number] TAKE 1 [facility] M OXALATE 1-02 TABLET BY ity o f 10 mg 00:00: MOUTH [place] tablet 00 EVERY DAY Medical Branch ESCITALOPRA 2021-06 Yes [id number] TAKE 1 [facility] M OXALATE 1-02 TABLET BY ity o f 10 mg 00:00: MOUTH [place] tablet 00 EVERY DAY Medical Branch ESCITALOPRA 2021-06 Yes [id number] TAKE 1 [facility] M OXALATE 1-02 TABLET BY ity o f 10 mg 00:00: MOUTH [place] tablet 00 EVERY DAY [facility] Branch ESCITALOPRA 2021-06 Yes [id number] TAKE 1 [facility] M OXALATE 1-02 TABLET BY ity o f 10 mg 00:00: MOUTH [place] tablet 00 EVERY DAY Medical Branch ESCITALOPRA 2021-06 Yes [id number] TAKE 1 [facility] M OXALATE 1-02 TABLET BY ity o f 10 mg 00:00: MOUTH [place] tablet 00 EVERY DAY Medical Branch ESCITALOPRA 2021-06 Yes [id number] TAKE 1 [facility] M OXALATE 1-02 TABLET BY ity o f 10 mg 00:00: MOUTH [place] tablet 00 EVERY DAY Medical Branch ESCITALOPRA 2021-06 Yes [id number] TAKE 1 [facility] M OXALATE 1-02 TABLET BY ity o f 10 mg 00:00: MOUTH [place] tablet 00 EVERY DAY Medical Branch ESCITALOPRA 2021-06 Yes [id number] TAKE 1 [facility] M OXALATE 1-02 TABLET BY ity o f 10 mg 00:00: MOUTH [place] tablet 00 EVERY DAY Medical Branch ESCITALOPRA 2021-06 Yes [id number] TAKE 1 [facility] M OXALATE 1-02 TABLET BY ity o f 10 mg 00:00: MOUTH [place] tablet 00 EVERY DAY Medical Branch ESCITALOPRA 2021-06 Yes [id number] TAKE 1 [facility] M OXALATE 1-02 TABLET BY ity o f 10 mg 00:00: MOUTH [place] tablet 00 EVERY DAY Medical Branch ESCITALOPRA 2021-06 Yes [id number] TAKE 1 [facility] M OXALATE 1-02 TABLET BY ity o f 10 mg 00:00: MOUTH [place] tablet 00 EVERY DAY Medical [facility] ESCITALOPRA 2021-06 Yes [id number] TAKE 1 [facility] M OXALATE 1-02 TABLET BY ity o f 10 mg 00:00: MOUTH [place] tablet 00 EVERY DAY Medical Branch ESCITALOPRA 2021-06 Yes [id number] TAKE 1 [facility] M OXALATE 1-02 TABLET BY ity o f 10 mg 00:00: MOUTH [place] tablet 00 EVERY DAY Medical Branch ESCITALOPRA 2021-06 Yes [id number] TAKE 1 [facility] M OXALATE 1-02 TABLET BY ity o f 10 mg 00:00: MOUTH [place] tablet 00 EVERY DAY Medical Branch ESCITALOPRA 2021-06 Yes [id number] TAKE 1 [facility] M OXALATE 1-02 TABLET BY ity o f 10 mg 00:00: MOUTH [place] tablet 00 EVERY DAY Medical Branch ESCITALOPRA 2021-06 Yes [id number] TAKE 1 [facility] M OXALATE 1-02 TABLET BY ity o f 10 mg 00:00: MOUTH [place] tablet 00 EVERY DAY Medical Branch ESCITALOPRA 2021-06 Yes [id number] TAKE 1 [facility] M OXALATE 1-02 TABLET BY ity o f 10 mg 00:00: MOUTH [place] tablet 00 EVERY DAY Medical Branch ESCITALOPRA 2021-06 Yes [id number] TAKE 1 [facility] M OXALATE 1-02 TABLET BY ity o f 10 mg 00:00: MOUTH [place] tablet 00 EVERY DAY Medical Branch ESCITALOPRA 2021-06 Yes [id number] TAKE 1 [facility] M OXALATE 1-02 TABLET BY ity o f 10 mg 00:00: MOUTH [place] tablet 00 EVERY DAY Medical Branch ESCITALOPRA 2021-06 Yes [id number] TAKE 1 [facility] M OXALATE 1-02 TABLET BY ity o f 10 mg 00:00: MOUTH [place] tablet 00 EVERY DAY Medical Branch ESCITALOPRA 2021-06 Yes [id number] TAKE 1 [facility] M OXALATE 1-02 TABLET BY ity o f 10 mg 00:00: MOUTH [place] tablet 00 EVERY DAY Medical Branch ESCITALOPRA 2021-06 Yes [id number] TAKE 1 [facility] M OXALATE 1-02 TABLET BY ity o f 10 mg 00:00: MOUTH [place] tablet 00 EVERY DAY Medical Branch ESCITALOPRA 2021-06 Yes [id number] TAKE 1 [facility] M OXALATE 1-02 TABLET BY ity o f 10 mg 00:00: MOUTH [place] tablet 00 EVERY DAY Medical Branch ESCITALOPRA 2021-06 Yes [id number] TAKE 1 [facility] M OXALATE 1-02 TABLET BY ity o f 10 mg 00:00: MOUTH [place] tablet 00 EVERY DAY Medical Branch ESCITALOPRA 2021-06 Yes [id number] TAKE 1 [facility] M OXALATE 1-02 TABLET BY ity o f 10 mg 00:00: MOUTH [place] tablet 00 EVERY DAY Medical Branch ESCITALOPRA 2021-06 Yes [id number] TAKE 1 [facility] M OXALATE 1-02 TABLET BY ity o f 10 mg 00:00: MOUTH [place] tablet 00 EVERY DAY Medical Branch ESCITALOPRA 2021-06 Yes [id number] TAKE 1 [facility] M OXALATE 1-02 TABLET BY ity o f 10 mg 00:00: MOUTH [place] tablet 00 EVERY DAY Medical Branch ESCITALOPRA 2021-06 Yes [id number] TAKE 1 [facility] M OXALATE 1-02 TABLET BY ity o f 10 mg 00:00: MOUTH [place] tablet 00 EVERY DAY Medical Branch ESCITALOPRA 2021-06 Yes [id number] TAKE 1 [facility] M OXALATE 1-02 TABLET BY ity o f 10 mg 00:00: MOUTH [place] tablet 00 EVERY DAY Medical Branch ESCITALOPRA 2021-06- No [id number] TAKE 1 [facility] M OXALATE 1-02 07-18 TABLET BY ity of 10 mg 00:00: 00:00 MOUTH [place] tablet 00 :00 EVERY DAY Medical Branch ESCITALOPRA 2021-06- No [id number] TAKE 1 [facility] M OXALATE 1-02 07-18 TABLET BY ity of 10 mg 00:00: 00:00 MOUTH [place] tablet 00 :00 EVERY DAY [facility] Branch gentamicin 2021-06- No [id number] 80mg [facility] injection 0- [id number] ity of 80 mg 20:15: 19:07 [place] 00 :00 [facility] gentamicin 2021-06- No [id number] 80mg 80 mg, Univers injection 0- [id number] Intramuscu i ty of 80 mg 20:15: 19:07 lar, ONCE, [place] 00 :00 1 dose, On [facility] 03/30/22 at 1515, PADMA
Re ason for Anti-Infec tive: Empiric Therapy for Suspected Infection< br>Empiric Therapy Site: Urine
D uration of therapy: 72 hours gentamicin 2021-06- No [id number] 80mg [facility] injection 0- [id number] ity of 80 mg 20:15: 19:07 [place] 00 :00 [facility] gentamicin 2021-06- No [id number] 80mg 80 mg, Univers injection 0- [id number] Intramuscu i ty of 80 mg 20:15: 19:07 lar, ONCE, [place] 00 :00 1 dose, On [facility] 03/30/22 at 1515, PADMA
Re ason for Anti-Infec tive: Empiric Therapy for Suspected Infection< br>Empiric Therapy Site: Urine
D uration of therapy: 72 hours GABAPENTIN 2021-06- No [id number] 300mg TAKE 1 [facility] 300 mg 0-06 10-28 CAPSULE BY ity of capsule 00:00: 04:59 MOUTH IN [place] 00 :00 THE Medical MORNING [place] AND 1 CAPSULE AT NOON AND 1 CAPSULE IN THE EVENING. DO ALL THIS FOR 21 DAYS. GABAPENTIN 2021-06- No [id number] 300mg TAKE 1 [facility] 300 mg 0-06 10-28 CAPSULE BY ity of capsule 00:00: 04:59 MOUTH IN [place] 00 :00 THE [facility] MORNING [place] AND 1 CAPSULE AT NOON AND 1 CAPSULE IN THE EVENING. DO ALL THIS FOR 21 DAYS. GABAPENTIN 2021-06- No [id number] 300mg TAKE 1 [facility] 300 mg 0-06 10-28 CAPSULE BY ity of capsule 00:00: 04:59 MOUTH IN [place] 00 :00 THE [facility] AND 1 CAPSULE AT NOON AND 1 CAPSULE IN THE EVENING. DO ALL THIS FOR 21 DAYS. GABAPENTIN 2021-06- No [id number] 300mg TAKE 1 [facility] 300 mg 0-06 10-28 CAPSULE BY ity of capsule 00:00: 04:59 MOUTH IN [place] 00 :00 THE [facility] AND 1 CAPSULE AT NOON AND 1 CAPSULE IN THE EVENING. DO ALL THIS FOR 21 DAYS. GABAPENTIN 2021-06- No [id number] 300mg TAKE 1 [facility] 300 mg 0-06 10-28 CAPSULE BY ity of capsule 00:00: 04:59 MOUTH IN [place] 00 :00 THE [facility] AND 1 CAPSULE AT NOON AND 1 CAPSULE IN THE EVENING. DO ALL THIS FOR 21 DAYS. Insulin Asp Yes [id number] INJECT 20 [facility] Prt-Insulin 9-14 UNITS ity of Aspart 00:00: UNDER THE [place] (NOVOLOG 00 SKIN 2 Medical MIX 70-30) (TWO) Branch 100 unit/mL TIMES (70-30) DAILY injection BEFORE BREAKFAST AND DINNER. Insulin Asp Yes [id number] INJECT 20 [facility] Prt-Insulin 9-14 UNITS ity of Aspart 00:00: UNDER THE [place] (NOVOLOG 00 SKIN 2 Medical MIX 70-30) (TWO) Branch 100 unit/mL TIMES (70-30) DAILY injection BEFORE BREAKFAST AND DINNER. Insulin Asp 2021-0 Yes [id number] INJECT 20 [facility] Prt-Insulin 9-14 UNITS ity of Aspart 00:00: UNDER THE [place] (NOVOLOG 00 SKIN 2 Medical MIX 70-30) (TWO) Branch 100 unit/mL TIMES (70-30) DAILY injection BEFORE BREAKFAST AND DINNER. Insulin Asp 2021-0 Yes [id number] INJECT 20 [facility] Prt-Insulin 9-14 UNITS ity of Aspart 00:00: UNDER THE [place] (NOVOLOG 00 SKIN 2 Medical MIX 70-30) (TWO) Branch 100 unit/mL TIMES (70-30) DAILY injection BEFORE BREAKFAST AND DINNER. Insulin Asp 2021-0 Yes [id number] INJECT 20 [facility] Prt-Insulin 9-14 UNITS ity of Aspart 00:00: UNDER THE [place] (NOVOLOG 00 SKIN 2 Medical MIX 70-30) (TWO) Branch 100 unit/mL TIMES (70-30) DAILY injection BEFORE BREAKFAST AND DINNER. Insulin Asp 2021-0 Yes [id number] INJECT 20 [facility] Prt-Insulin 9-14 UNITS ity of Aspart 00:00: UNDER THE [place] (NOVOLOG 00 SKIN 2 Medical MIX 70-30) (TWO) Branch 100 unit/mL TIMES (70-30) DAILY injection BEFORE BREAKFAST AND DINNER. Insulin Asp 2021- Yes [id number] INJECT 20 [facility] Prt-Insulin 9-14 UNITS ity of Aspart 00:00: UNDER THE [place] (NOVOLOG 00 SKIN 2 Medical MIX 70-30) (TWO) Branch 100 unit/mL TIMES (70-30) DAILY injection BEFORE BREAKFAST AND DINNER. Insulin Asp 2021- Yes [id number] INJECT 20 [facility] Prt-Insulin 9-14 UNITS ity of Aspart 00:00: UNDER THE [place] (NOVOLOG 00 SKIN 2 Medical MIX 70-30) (TWO) Branch 100 unit/mL TIMES (70-30) DAILY injection BEFORE BREAKFAST AND DINNER. Insulin Asp 2021-0 Yes [id number] INJECT 20 [facility] Prt-Insulin 9-14 UNITS ity of Aspart 00:00: UNDER THE [place] (NOVOLOG 00 SKIN 2 Medical MIX 70-30) (TWO) Branch 100 unit/mL TIMES (70-30) DAILY injection BEFORE BREAKFAST AND DINNER. Insulin Asp 2021-0 Yes [id number] INJECT 20 [facility] Prt-Insulin 9-14 UNITS ity of Aspart 00:00: UNDER THE [place] (NOVOLOG 00 SKIN 2 Medical MIX 70-30) (TWO) Branch 100 unit/mL TIMES (70-30) DAILY injection BEFORE BREAKFAST AND DINNER. Insulin Asp 2021-0 Yes [id number] INJECT 20 [facility] Prt-Insulin 9-14 UNITS ity of Aspart 00:00: UNDER THE [place] (NOVOLOG 00 SKIN 2 Medical MIX 70-30) (TWO) Branch 100 unit/mL TIMES (70-30) DAILY injection BEFORE BREAKFAST AND DINNER. Insulin Asp 2021-0 Yes [id number] INJECT 20 [facility] Prt-Insulin 9-14 UNITS ity of Aspart 00:00: UNDER THE [place] (NOVOLOG 00 SKIN 2 Medical MIX 70-30) (TWO) Branch 100 unit/mL TIMES (70-30) DAILY injection BEFORE BREAKFAST AND DINNER. Insulin Asp 2021-0 Yes [id number] INJECT 20 [facility] Prt-Insulin 9-14 UNITS ity of Aspart 00:00: UNDER THE [place] (NOVOLOG 00 SKIN 2 Medical MIX 70-30) (TWO) Branch 100 unit/mL TIMES (70-30) DAILY injection BEFORE BREAKFAST AND DINNER. Insulin Asp 2021-0 Yes [id number] INJECT 20 [facility] Prt-Insulin 9-14 UNITS ity of Aspart 00:00: UNDER THE [place] (NOVOLOG 00 SKIN 2 Medical MIX 70-30) (TWO) Branch 100 unit/mL TIMES (70-30) DAILY injection BEFORE BREAKFAST AND DINNER. Insulin Asp 2021-0 Yes [id number] INJECT 20 [facility] Prt-Insulin 9-14 UNITS ity of Aspart 00:00: UNDER THE [place] (NOVOLOG 00 SKIN 2 Medical MIX 70-30) (TWO) Branch 100 unit/mL TIMES (70-30) DAILY injection BEFORE BREAKFAST AND DINNER. Insulin Asp 2021-0 Yes [id number] INJECT 20 [facility] Prt-Insulin 9-14 UNITS ity of Aspart 00:00: UNDER THE [place] (NOVOLOG 00 SKIN 2 Medical MIX 70-30) (TWO) Branch 100 unit/mL TIMES (70-30) DAILY injection BEFORE BREAKFAST AND DINNER. Insulin Asp 2021-0 Yes [id number] INJECT 20 [facility] Prt-Insulin 9-14 UNITS ity of Aspart 00:00: UNDER THE [place] (NOVOLOG 00 SKIN 2 Medical MIX 70-30) (TWO) Branch 100 unit/mL TIMES (70-30) DAILY injection BEFORE BREAKFAST AND DINNER. Insulin Asp 2021-0 Yes [id number] INJECT 20 [facility] Prt-Insulin 9-14 UNITS ity of Aspart 00:00: UNDER THE [place] (NOVOLOG 00 SKIN 2 Medical MIX 70-30) (TWO) Branch 100 unit/mL TIMES (70-30) DAILY injection BEFORE BREAKFAST AND DINNER. Insulin Asp 2021-0 Yes [id number] INJECT 20 [facility] Prt-Insulin 9-14 UNITS ity of Aspart 00:00: UNDER THE [place] (NOVOLOG 00 SKIN 2 Medical MIX 70-30) (TWO) Branch 100 unit/mL TIMES (70-30) DAILY injection BEFORE BREAKFAST AND DINNER. Insulin Asp 2021-0 Yes [id number] INJECT 20 [facility] Prt-Insulin 9-14 UNITS ity of Aspart 00:00: UNDER THE [place] (NOVOLOG 00 SKIN 2 Medical MIX 70-30) (TWO) Branch 100 unit/mL TIMES (70-30) DAILY injection BEFORE BREAKFAST AND DINNER. Insulin Asp 0 Yes [id number] INJECT 20 [facility] Prt-Insulin 9-14 UNITS ity of Aspart 00:00: UNDER THE [place] (NOVOLOG 00 SKIN 2 Medical MIX 70-30) (TWO) Branch 100 unit/mL TIMES (70-30) DAILY injection BEFORE BREAKFAST AND DINNER. Insulin Asp 2021-0 Yes [id number] INJECT 20 [facility] Prt-Insulin 9-14 UNITS ity of Aspart 00:00: UNDER THE [place] (NOVOLOG 00 SKIN 2 Medical MIX 70-30) (TWO) Branch 100 unit/mL TIMES (70-30) DAILY injection BEFORE BREAKFAST AND DINNER. Insulin Asp 2021-0 Yes [id number] INJECT 20 [facility] Prt-Insulin 9-14 UNITS ity of Aspart 00:00: UNDER THE [place] (NOVOLOG 00 SKIN 2 Medical MIX 70-30) (TWO) Branch 100 unit/mL TIMES (70-30) DAILY injection BEFORE BREAKFAST AND DINNER. Insulin Asp 2021-0 Yes [id number] INJECT 20 [facility] Prt-Insulin 9-14 UNITS ity of Aspart 00:00: UNDER THE [place] (NOVOLOG 00 SKIN 2 Medical MIX 70-30) (TWO) Branch 100 unit/mL TIMES (70-30) DAILY injection BEFORE BREAKFAST AND DINNER. Insulin Asp 2021- Yes [id number] INJECT 20 [facility] Prt-Insulin 9-14 UNITS ity of Aspart 00:00: UNDER THE [place] (NOVOLOG 00 SKIN 2 Medical MIX 70-30) (TWO) Branch 100 unit/mL TIMES (70-30) DAILY injection BEFORE BREAKFAST AND DINNER. Insulin Asp Yes [id number] INJECT 20 [facility] Prt-Insulin 9-14 UNITS ity of Aspart 00:00: UNDER THE [place] (NOVOLOG 00 SKIN 2 Medical MIX 70-30) (TWO) Branch 100 unit/mL TIMES (70-30) DAILY injection BEFORE BREAKFAST AND DINNER. Insulin Asp Yes [id number] INJECT 20 [facility] Prt-Insulin 9-14 UNITS ity of Aspart 00:00: UNDER THE [place] (NOVOLOG 00 SKIN 2 Medical MIX 70-30) (TWO) Branch 100 unit/mL TIMES (70-30) DAILY injection BEFORE BREAKFAST AND DINNER. Insulin Asp Yes [id number] INJECT 20 [facility] Prt-Insulin 9-14 UNITS ity of Aspart 00:00: UNDER THE [place] (NOVOLOG 00 SKIN 2 Medical MIX 70-30) (TWO) Branch 100 unit/mL TIMES (70-30) DAILY injection BEFORE BREAKFAST AND DINNER. Insulin Asp 2022- No [id number] INJECT 20 [facility] Prt-Insulin 9-14 03-30 UNITS ity of Aspart 00:00: 00:00 UNDER THE [place] (NOVOLOG 00 :00 SKIN 2 Medical MIX 70-30) (TWO) Branch 100 unit/mL TIMES (70-30) DAILY injection BEFORE BREAKFAST AND DINNER. gabapentin 2021- No [id number] 300mg Take 1 [facility] 300 mg 02-02 capsule by ity of capsule 00:00: 04:59 mouth in [place] 00 :00 the Medical morning Branch and 1 capsule at noon and 1 capsule in the evening. Do all this for 21 days. gabapentin 2021- No [id number] 300mg Take 1 [facility] 300 mg 02-02 capsule by ity of capsule 00:00: 04:59 mouth in [place] 00 :00 the Medical morning Branch and 1 capsule at noon and 1 capsule in the evening. Do all this for 21 days. blood sugar Yes [id number] USE TWICE Univers diagnostic 8-04 DAILY FOR ity of (ASCENSIA 00:00: BLOOD [facility]) 00 GLUCOSE Medica l strip MONITORING Branch FINASTERIDE Yes [id number] TAKE 1 [facility] 5 mg tablet 8-04 TABLET BY ity of 00:00: MOUTH [place] 00 EVERY DAY Medical Branch blood sugar 0 Yes [id number] USE TWICE Univers diagnostic 8-04 DAILY FOR ity of (ASCENSIA 00:00: BLOOD [place] MICROFILL) 00 GLUCOSE Medica l strip MONITORING Branch FINASTERIDE Yes [id number] TAKE 1 [facility] 5 mg tablet 8-04 TABLET BY ity of 00:00: MOUTH [place] 00 EVERY DAY Medical Branch blood sugar Yes [id number] USE TWICE Univers diagnostic 8-04 DAILY FOR ity of (ASCENSIA 00:00: BLOOD [place] MICROFILL) 00 GLUCOSE Medica l strip MONITORING Branch FINASTERIDE Yes [id number] TAKE 1 [facility] 5 mg tablet 8-04 TABLET BY ity of 00:00: MOUTH [place] 00 EVERY DAY Medical Branch blood sugar Yes [id number] USE TWICE [facility] diagnostic 8-04 DAILY FOR ity of (ASCENSIA 00:00: BLOOD [place] MICROFILL) 00 GLUCOSE Medica l strip MONITORING Branch FINASTERIDE Yes [id number] TAKE 1 [facility] 5 mg tablet 8-04 TABLET BY ity of 00:00: MOUTH [place] 00 EVERY DAY Medical Branch blood sugar Yes [id number] USE TWICE [facility] diagnostic 8-04 DAILY FOR ity of (ASCENSIA 00:00: BLOOD [place] MICROFILL) 00 GLUCOSE Medica l strip MONITORING Branch FINASTERIDE Yes [id number] TAKE 1 [facility] 5 mg tablet 8-04 TABLET BY ity of 00:00: MOUTH [place] 00 EVERY DAY Medical Branch blood sugar 2021-0 Yes [id number] USE TWICE [facility] diagnostic 8-04 DAILY FOR ity of (ASCENSIA 00:00: BLOOD [place] MICROFILL) 00 GLUCOSE Medica l strip MONITORING Branch FINASTERIDE Yes [id number] TAKE 1 [facility] 5 mg tablet 8-04 TABLET BY ity of 00:00: MOUTH [place] 00 EVERY DAY Medical Branch blood sugar 0 Yes [id number] USE TWICE [facility] diagnostic 8-04 DAILY FOR ity of (ASCENSIA 00:00: BLOOD [place] MICROFILL) 00 GLUCOSE Medica l strip MONITORING Branch FINASTERIDE Yes [id number] TAKE 1 [facility] 5 mg tablet 8-04 TABLET BY ity of 00:00: MOUTH [place] 00 EVERY DAY Medical Branch blood sugar 0 Yes [id number] USE TWICE [facility] diagnostic 8-04 DAILY FOR ity of (ASCENSIA 00:00: BLOOD [place] MICROFILL) 00 GLUCOSE Medica l strip MONITORING Branch FINASTERIDE 0 Yes [id number] TAKE 1 [facility] 5 mg tablet 8-04 TABLET BY ity of 00:00: MOUTH [place] 00 EVERY DAY Medical Branch blood sugar 0 Yes [id number] USE TWICE [facility] diagnostic 8-04 DAILY FOR ity of (ASCENSIA 00:00: BLOOD [place] MICROFILL) 00 GLUCOSE Medica l strip MONITORING Branch FINASTERIDE 0 Yes [id number] TAKE 1 [facility] 5 mg tablet 8-04 TABLET BY ity of 00:00: MOUTH [place] 00 EVERY DAY Medical Branch blood sugar Yes [id number] USE TWICE [facility] diagnostic 8-04 DAILY FOR ity of (ASCENSIA 00:00: BLOOD [place] MICROFILL) 00 GLUCOSE Medica l strip MONITORING Branch FINASTERIDE Yes [id number] TAKE 1 [facility] 5 mg tablet 8-04 TABLET BY ity of 00:00: MOUTH [place] 00 EVERY DAY Medical Branch blood sugar 0 Yes [id number] USE TWICE [facility] diagnostic 8-04 DAILY FOR ity of (ASCENSIA 00:00: BLOOD [place] MICROFILL) 00 GLUCOSE Medica l strip MONITORING Branch FINASTERIDE 0 Yes [id number] TAKE 1 [facility] 5 mg tablet 8-04 TABLET BY ity of 00:00: MOUTH [place] 00 EVERY DAY Medical Branch blood sugar 0 Yes [id number] USE TWICE [facility] diagnostic 8-04 DAILY FOR ity of (ASCENSIA 00:00: BLOOD [place] MICROFILL) 00 GLUCOSE Medica l strip MONITORING Branch FINASTERIDE 0 Yes [id number] TAKE 1 [facility] 5 mg tablet 8-04 TABLET BY ity of 00:00: MOUTH [place] 00 EVERY DAY Medical Branch blood sugar 2021-0 Yes [id number] USE TWICE [facility] diagnostic 8-04 DAILY FOR ity of (ASCENSIA 00:00: BLOOD [place] MICROFILL) 00 GLUCOSE Medica l strip MONITORING Branch FINASTERIDE 0 Yes [id number] TAKE 1 [facility] 5 mg tablet 8-04 TABLET BY ity of 00:00: MOUTH [place] 00 EVERY DAY Medical Branch blood sugar 2022-0 Yes [id number] USE TWICE [facility] diagnostic 8-04 DAILY FOR ity of (ASCENSIA 00:00: BLOOD [place] MICROFILL) 00 GLUCOSE Medica l strip MONITORING Branch FINASTERIDE Yes [id number] TAKE 1 [facility] 5 mg tablet 8-04 TABLET BY ity of 00:00: MOUTH [place] 00 EVERY DAY Medical Branch blood sugar 0 Yes [id number] USE TWICE [facility] diagnostic 8-04 DAILY FOR ity of (ASCENSIA 00:00: BLOOD [place] MICROFILL) 00 GLUCOSE Medica l strip MONITORING Branch FINASTERIDE Yes [id number] TAKE 1 [facility] 5 mg tablet 8-04 TABLET BY ity of 00:00: MOUTH [place] 00 EVERY DAY Medical Branch blood sugar Yes [id number] USE TWICE [facility] diagnostic 8-04 DAILY FOR ity of (ASCENSIA 00:00: BLOOD [place] MICROFILL) 00 GLUCOSE Medica l strip MONITORING Branch FINASTERIDE Yes [id number] TAKE 1 [facility] 5 mg tablet 8-04 TABLET BY ity of 00:00: MOUTH [place] 00 EVERY DAY Medical Branch blood sugar Yes [id number] USE TWICE [facility] diagnostic 8-04 DAILY FOR ity of (ASCENSIA 00:00: BLOOD [place] MICROFILL) 00 GLUCOSE Medica l strip MONITORING Branch FINASTERIDE Yes [id number] TAKE 1 [facility] 5 mg tablet 8-04 TABLET BY ity of 00:00: MOUTH [place] 00 EVERY DAY Medical Branch blood sugar 0 Yes [id number] USE TWICE [facility] diagnostic 8-04 DAILY FOR ity of (ASCENSIA 00:00: BLOOD [place] MICROFILL) 00 GLUCOSE Medica l strip MONITORING Branch FINASTERIDE Yes [id number] TAKE 1 [facility] 5 mg tablet 8-04 TABLET BY ity of 00:00: MOUTH [place] 00 EVERY DAY Medical Branch blood sugar 0 Yes [id number] USE TWICE [facility] diagnostic 8-04 DAILY FOR ity of (ASCENSIA 00:00: BLOOD [place] MICROFILL) 00 GLUCOSE Medica l strip MONITORING Branch FINASTERIDE 0 Yes [id number] TAKE 1 [facility] 5 mg tablet 8-04 TABLET BY ity of 00:00: MOUTH [place] 00 EVERY DAY Medical Branch blood sugar 0 Yes [id number] USE TWICE [facility] diagnostic 8-04 DAILY FOR ity of (ASCENSIA 00:00: BLOOD [place] MICROFILL) 00 GLUCOSE Medica l strip MONITORING Branch FINASTERIDE Yes [id number] TAKE 1 [facility] 5 mg tablet 8-04 TABLET BY ity of 00:00: MOUTH [place] 00 EVERY DAY Medical Branch blood sugar Yes [id number] USE TWICE [facility] diagnostic 8-04 DAILY FOR ity of (ASCENSIA 00:00: BLOOD [place] MICROFILL) 00 GLUCOSE Medica l strip MONITORING Branch FINASTERIDE Yes [id number] TAKE 1 [facility] 5 mg tablet 8-04 TABLET BY ity of 00:00: MOUTH [place] 00 EVERY DAY Medical Branch blood sugar Yes [id number] USE TWICE [facility] diagnostic 8-04 DAILY FOR ity of (ASCENSIA 00:00: BLOOD [place] MICROFILL) 00 GLUCOSE Medica l strip MONITORING Branch FINASTERIDE Yes [id number] TAKE 1 [facility] 5 mg tablet 8-04 TABLET BY ity of 00:00: MOUTH [place] 00 EVERY DAY Medical Branch blood sugar Yes [id number] USE TWICE [facility] diagnostic 8-04 DAILY FOR ity of (ASCENSIA 00:00: BLOOD [place] MICROFILL) 00 GLUCOSE Medica l strip MONITORING Branch FINASTERIDE Yes [id number] TAKE 1 [facility] 5 mg tablet 8-04 TABLET BY ity of 00:00: MOUTH [place] 00 EVERY DAY Medical Branch blood sugar Yes [id number] USE TWICE [facility] diagnostic 8-04 DAILY FOR ity of (ASCENSIA 00:00: BLOOD [place] MICROFILL) 00 GLUCOSE Medica l strip MONITORING Branch FINASTERIDE Yes [id number] TAKE 1 [facility] 5 mg tablet 8-04 TABLET BY ity of 00:00: MOUTH [place] 00 EVERY DAY Medical Branch blood sugar 0 Yes [id number] USE TWICE [facility] diagnostic 8-04 DAILY FOR ity of (ASCENSIA 00:00: BLOOD [place] MICROFILL) 00 GLUCOSE Medica l strip MONITORING Branch FINASTERIDE Yes [id number] TAKE 1 [facility] 5 mg tablet 8-04 TABLET BY ity of 00:00: MOUTH [place] 00 EVERY DAY Medical Branch blood sugar Yes [id number] USE TWICE [facility] diagnostic 8-04 DAILY FOR ity of (ASCENSIA 00:00: BLOOD [place] MICROFILL) 00 GLUCOSE Medica l strip MONITORING Branch FINASTERIDE Yes [id number] TAKE 1 [facility] 5 mg tablet 8-04 TABLET BY ity of 00:00: MOUTH [place] 00 EVERY DAY Medical Branch blood sugar Yes [id number] USE TWICE [facility] diagnostic 8-04 DAILY FOR ity of (ASCENSIA 00:00: BLOOD [place] MICROFILL) 00 GLUCOSE Medica l strip MONITORING Branch FINASTERIDE Yes [id number] TAKE 1 [facility] 5 mg tablet 8-04 TABLET BY ity of 00:00: MOUTH [place] 00 EVERY DAY Medical Branch blood sugar Yes [id number] USE TWICE [facility] diagnostic 8-04 DAILY FOR ity of (ASCENSIA 00:00: BLOOD [place] MICROFILL) 00 GLUCOSE Medica l strip MONITORING Branch FINASTERIDE Yes [id number] TAKE 1 [facility] 5 mg tablet 8-04 TABLET BY ity of 00:00: MOUTH [place] 00 EVERY DAY Medical Branch blood sugar Yes [id number] USE TWICE [facility] diagnostic 8-04 DAILY FOR ity of (ASCENSIA 00:00: BLOOD [place] MICROFILL) 00 GLUCOSE Medica l strip MONITORING Branch FINASTERIDE Yes [id number] TAKE 1 [facility] 5 mg tablet 8-04 TABLET BY ity of 00:00: MOUTH [place] 00 EVERY DAY Medical Branch blood sugar Yes [id number] USE TWICE [facility] diagnostic 8-04 DAILY FOR ity of (ASCENSIA 00:00: BLOOD [place] MICROFILL) 00 GLUCOSE Medica l strip MONITORING Branch FINASTERIDE Yes [id number] TAKE 1 [facility] 5 mg tablet 8-04 TABLET BY ity of 00:00: MOUTH [place] 00 EVERY DAY Medical Branch blood sugar 0 Yes [id number] USE TWICE [facility] diagnostic 8-04 DAILY FOR ity of (ASCENSIA 00:00: BLOOD [place] MICROFILL) 00 GLUCOSE Medica l strip MONITORING Branch FINASTERIDE Yes [id number] TAKE 1 [facility] 5 mg tablet 8-04 TABLET BY ity of 00:00: MOUTH [place] 00 EVERY DAY Medical Branch FINASTERIDE 0 Yes [id number] TAKE 1 [facility] 5 mg tablet 8-04 TABLET BY ity of 00:00: MOUTH [place] 00 EVERY DAY Medical Branch FINASTERIDE Yes [id number] TAKE 1 [facility] 5 mg tablet 8-04 TABLET BY ity of 00:00: MOUTH [place] 00 EVERY DAY Medical Branch FINASTERIDE 2022-0 Yes [id number] TAKE 1 [facility] 5 mg tablet 8-04 TABLET BY ity of 00:00: MOUTH [place] 00 EVERY DAY Medical Branch FINASTERIDE 2022-0 Yes [id number] TAKE 1 [facility] 5 mg tablet 8-04 TABLET BY ity of 00:00: MOUTH [place] 00 EVERY DAY Medical Branch FINASTERIDE 2-0 Yes [id number] TAKE 1 [facility] 5 mg tablet 8-04 TABLET BY ity of 00:00: MOUTH [place] 00 EVERY DAY Medical Branch FINASTERIDE 2021-0 Yes [id number] TAKE 1 [facility] 5 mg tablet 8-04 TABLET BY ity of 00:00: MOUTH [place] 00 EVERY DAY Medical Branch FINASTERIDE 2-0 Yes [id number] TAKE 1 [facility] 5 mg tablet 8-04 TABLET BY ity of 00:00: MOUTH [place] 00 EVERY DAY Medical Branch FINASTERIDE 2-0 Yes [id number] TAKE 1 [facility] 5 mg tablet 8-04 TABLET BY ity of 00:00: MOUTH [place] 00 EVERY DAY Medical Branch FINASTERIDE 2022-0 Yes [id number] TAKE 1 [facility] 5 mg tablet 8-04 TABLET BY [facility] 00:00: MOUTH [place] 00 EVERY DAY [facility] FINASTERIDE 2022-0 Yes [id number] TAKE 1 [facility] 5 [facility] tablet 8-04 TABLET BY [facility] of 00:00: MOUTH [place] 00 EVERY DAY Medical Branch FINASTERIDE 2022-0 Yes [id number] TAKE 1 [facility] 5 mg tablet 8-04 TABLET BY [facility] of 00:00: MOUTH [place] 00 EVERY DAY Medical Branch FINASTERIDE 2022-0 Yes [id number] TAKE 1 [facility] 5 mg tablet 8-04 TABLET BY [facility] of 00:00: MOUTH [place] 00 EVERY DAY [facility] Branch FINASTERIDE 2022-0 Yes [id number] TAKE 1 [facility] 5 mg tablet 8-04 TABLET BY [facility] of 00:00: MOUTH [place] 00 EVERY DAY Medical Branch FINASTERIDE 2022-0 Yes [id number] TAKE 1 [facility] 5 mg tablet 8-04 TABLET BY [facility] of 00:00: MOUTH [place] 00 EVERY DAY [facility] Branch FINASTERIDE 2022-0 Yes [id number] TAKE 1 [facility] 5 mg tablet 8-04 TABLET BY [facility] of 00:00: MOUTH [place] 00 EVERY DAY Medical Branch FINASTERIDE 2022-0 Yes [id number] TAKE 1 [facility] 5 mg tablet 8-04 TABLET BY [facility] of 00:00: MOUTH [place] 00 EVERY DAY [facility] Branch FINASTERIDE 2022-0 Yes [id number] TAKE 1 [facility] 5 mg tablet 8-04 TABLET BY [facility] of 00:00: MOUTH [place] 00 EVERY DAY [facility] FINASTERIDE 2022-0 Yes [id number] TAKE 1 [facility] 5 mg tablet 8-04 TABLET BY [facility] of 00:00: MOUTH [place] 00 EVERY DAY [facility] FINASTERIDE 2022-0 Yes [id number] TAKE 1 [facility] 5 mg tablet 8-04 TABLET BY [facility] of 00:00: MOUTH [place] 00 EVERY DAY [facility] Branch FINASTERIDE 2022-0 Yes [id number] TAKE 1 [facility] 5 mg tablet 8-04 TABLET BY [facility] of 00:00: MOUTH [place] 00 EVERY DAY [facility] FINASTERIDE 2022-0 Yes [id number] TAKE 1 [facility] 5 mg tablet 8-04 TABLET BY [facility] 00:00: MOUTH [place] 00 EVERY DAY [facility] FINASTERIDE 2022-0 Yes [id number] TAKE 1 [facility] 5 mg tablet 8-04 TABLET BY [facility] 00:00: MOUTH [place] 00 EVERY DAY [facility] FINASTERIDE 2022-0 Yes [id number] TAKE 1 [facility] 5 mg tablet 8-04 TABLET BY [facility] 00:00: MOUTH [place] 00 EVERY DAY [facility] FINASTERIDE 2022-0 Yes [id number] TAKE 1 [facility] 5 mg tablet 8-04 TABLET BY [facility] 00:00: MOUTH [place] 00 EVERY DAY [facility] FINASTERIDE 2022-0 Yes [id number] TAKE 1 [facility] 5 mg tablet 8-04 TABLET BY [facility] of 00:00: MOUTH [place] 00 EVERY DAY [facility] FINASTERIDE 2022-0 Yes [id number] TAKE 1 [facility] 5 mg tablet 8-04 TABLET BY [facility] 00:00: MOUTH [place] 00 EVERY DAY [facility] FINASTERIDE 2022-0 Yes [id number] TAKE 1 [facility] 5 mg tablet 8-04 TABLET BY [facility] 00:00: MOUTH [place] 00 EVERY DAY [facility] FINASTERIDE 2022-0 Yes [id number] TAKE 1 [facility] 5 mg tablet 8-04 TABLET BY [facility] 00:00: MOUTH [place] 00 EVERY DAY [facility] Branch FINASTERIDE 2022-0 Yes [id number] TAKE 1 [facility] 5 mg tablet 8-04 TABLET BY [facility] 00:00: MOUTH [place] 00 EVERY DAY [facility] Branch FINASTERIDE 2022-0 Yes [id number] TAKE 1 [facility] 5 mg tablet 8-04 TABLET BY [facility] of 00:00: MOUTH [place] 00 EVERY DAY [facility] FINASTERIDE 2022-0 Yes [id number] TAKE 1 [facility] 5 mg tablet 8-04 TABLET BY [facility] 00:00: MOUTH [place] 00 EVERY DAY [facility] Branch FINASTERIDE 2-0 Yes [id number] TAKE 1 [facility] 5 mg tablet 8-04 TABLET BY [facility] 00:00: MOUTH [place] 00 EVERY DAY [facility] FINASTERIDE 2021-0 Yes [id number] TAKE 1 [facility] 5 mg tablet 8-04 TABLET BY [facility] 00:00: MOUTH [place] 00 EVERY DAY [facility] FINASTERIDE 2-0 Yes [id number] TAKE 1 [facility] 5 mg tablet 8-04 TABLET BY [facility] 00:00: MOUTH [place] 00 EVERY DAY [facility] Branch FINASTERIDE 2-0 Yes [id number] TAKE 1 [facility] 5 mg tablet 8-04 TABLET BY [facility] 00:00: MOUTH [place] 00 EVERY DAY [facility] Branch FINASTERIDE 2022-0 Yes [id number] TAKE 1 [facility] 5 mg tablet 8-04 TABLET BY [facility] 00:00: MOUTH [place] 00 EVERY DAY [facility] FINASTERIDE 2022-0 Yes [id number] TAKE 1 [facility] 5 mg tablet 8-04 TABLET BY [facility] 00:00: MOUTH [place] 00 EVERY DAY [facility] Branch FINASTERIDE 2022-0 Yes [id number] TAKE 1 [facility] 5 mg tablet 8-04 TABLET BY [facility] 00:00: MOUTH [place] 00 EVERY DAY [facility] FINASTERIDE 2022-0 Yes [id number] TAKE 1 [facility] 5 mg tablet 8-04 TABLET BY [facility] 00:00: MOUTH [place] 00 EVERY DAY [facility] FINASTERIDE 2022-0 Yes [id number] TAKE 1 [facility] 5 mg tablet 8-04 TABLET BY [facility] 00:00: MOUTH [place] 00 EVERY DAY [facility] FINASTERIDE 2022-0 Yes [id number] TAKE 1 [facility] 5 mg tablet 8-04 TABLET BY [facility] 00:00: MOUTH [place] 00 EVERY DAY [facility] Branch FINASTERIDE 2022-0 Yes [id number] TAKE 1 [facility] 5 mg tablet 8-04 TABLET BY [facility] 00:00: MOUTH [place] 00 EVERY DAY [facility] FINASTERIDE 0 Yes [id number] TAKE 1 [facility] 5 mg tablet 8-04 TABLET BY [facility] 00:00: MOUTH [place] 00 EVERY DAY [facility] FINASTERIDE 0 Yes [id number] TAKE 1 [facility] 5 mg tablet 8-04 TABLET BY [facility] 00:00: MOUTH [place] 00 EVERY DAY [facility] FINASTERIDE 0 Yes [id number] TAKE 1 [facility] 5 mg tablet 8-04 TABLET BY [facility] 00:00: MOUTH [place] 00 EVERY DAY [facility] FINASTERIDE 0 Yes [id number] TAKE 1 [facility] 5 mg tablet 8-04 TABLET BY [facility] 00:00: MOUTH [place] 00 EVERY DAY [facility] Branch FINASTERIDE 0 Yes [id number] TAKE 1 [facility] 5 mg tablet 8-04 TABLET BY [facility] 00:00: MOUTH [place] 00 EVERY DAY [facility] Branch FINASTERIDE 0 Yes [id number] TAKE 1 [facility] 5 mg tablet 8-04 TABLET BY [facility] 00:00: MOUTH [place] 00 EVERY DAY [facility] FINASTERIDE 0 Yes [id number] TAKE 1 [facility] 5 mg tablet 8-04 TABLET BY [facility] 00:00: MOUTH [place] 00 EVERY DAY [facility] FINASTERIDE 2021-0 3- No [id number] TAKE 1 [facility] 5 mg tablet 8-04 10-11 TABLET BY it y of 00:00: 00:00 MOUTH [place] 00 :00 EVERY DAY [facility] Branch FINASTERIDE 2021-0 2023- No [id number] TAKE 1 [facility] 5 mg tablet 8-04 10-11 TABLET BY it y of 00:00: 00:00 MOUTH [place] 00 :00 EVERY DAY [facility] Branch blood sugar 2021-0 2023- No [id number] USE TWICE [facility] diagnostic 8-04 03-30 DAILY FOR [facility] (ASCENSIA 00:00: 00:00 BLOOD [place] MICROFILL) 00 :00 GLUCOSE Medica l strip MONITORING Branch escitalopra 0 Yes [id number] 20mg Take 2 [facility] m oxalate 7-29 tablets by [facility] 10 mg 00:00: mouth in [place] tablet 00 the Medical morning. Branch escitalopra 0 Yes [id number] 20mg Take 2 [facility] m oxalate 7-29 tablets by [facility] of 10 mg 00:00: mouth in [place] tablet 00 the Medical morning. Branch escitalopra 2021-0 Yes [id number] 20mg Take 2 [facility] m oxalate 7-29 tablets by [facility] of 10 mg 00:00: mouth in [place] tablet 00 the Medical morning. Branch escitalopra 2021-0 Yes [id number] 20mg Take 2 [facility] m oxalate 7-29 tablets by [facility] 10 mg 00:00: mouth in [place] tablet 00 the Medical morning. Branch escitalopra 2021-0 Yes [id number] 20mg Take 2 [facility] m oxalate 7-29 tablets by [facility] 10 mg 00:00: mouth in [place] tablet 00 the Medical morning. Branch escitalopra 2021-0 Yes [id number] 20mg Take 2 [facility] m oxalate 7-29 tablets by [facility] of 10 mg 00:00: mouth in [place] tablet 00 the Medical morning. Branch escitalopra 2021-0 Yes [id number] 20mg Take 2 [facility] m oxalate 7-29 tablets by [facility] 10 mg 00:00: mouth in [place] tablet 00 the Medical morning. [place] escitalopra 2021-0 Yes [id number] 20mg Take 2 [facility] m oxalate 7-29 tablets by [facility] of 10 mg 00:00: mouth in [place] tablet 00 the Medical morning. [place] escitalopra 2021-0 Yes [id number] 20mg Take 2 [facility] m oxalate 7-29 tablets by [facility] of 10 mg 00:00: mouth in [place] tablet 00 the Medical morning. [place] escitalopra 2021-0 Yes [id number] 20mg Take 2 [facility] m oxalate 7-29 tablets by [facility] of 10 mg 00:00: mouth in [place] tablet 00 the Medical morning. [place] escitalopra 0 2021- No [id number] 20mg Take 2 [facility] m oxalate 7-29 - tablets by [facility] of 10 mg 00:00: 00:00 mouth in [place] tablet 00 :00 the Medical morning. [place] tiZANidine 0 Yes [id number] 4mg Take 1 [facility] 4 mg tablet -12 tablet by [facility] of 00:00: mouth 3 [place] 00 (three) Medical times Branch daily as needed for Pain (scale 4-6). clotrimazol 0 Yes [id number] Apply to [facility] e-betametha 7-12 area(s) 2 [facility] of sone 00:00: (two) [place] (LOTRISONE) 00 times Medical cream daily. Branch tiZANidine 2022-0 Yes [id number] 4mg Take 1 [facility] n[facility] 4 mg tablet 7-12 tablet by ity of 00:00: mouth 3 00 (three) Medical times Branch daily as needed for Pain (scale 4-6). clotrimazol 2022-0 Yes [id number] Apply to [facility] e-betametha 7-12 area(s) 2 ity of sone 00:00: (two) [place] (LOTRISONE) 00 times Medical cream daily. Branch tiZANidine 2022-0 Yes [id number] 4mg Take 1 [facility] n[facility] 4 mg tablet 7-12 tablet by ity of 00:00: mouth 3 00 (three) Medical times Branch daily as needed for Pain (scale 4-6). clotrimazol 2022-0 Yes [id number] Apply to [facility] e-betametha 7-12 area(s) 2 ity of sone 00:00: (two) [place] (LOTRISONE) 00 times Medical cream daily. Branch tiZANidine 2022-0 Yes [id number] 4mg Take 1 [facility] n[facility] 4 mg tablet 7-12 tablet by ity of 00:00: mouth 3 00 (three) Medical times Branch daily as needed for Pain (scale 4-6). clotrimazol 2022-0 Yes [id number] Apply to [facility] e-betametha 7-12 area(s) 2 ity of sone 00:00: (two) [place] (LOTRISONE) 00 times Medical cream daily. Branch tiZANidine 2022-0 Yes [id number] 4mg Take 1 [facility] n[facility] 4 mg tablet 7-12 tablet by ity of 00:00: mouth 3 00 (three) Medical times Branch daily as needed for Pain (scale 4-6). clotrimazol 2022-0 Yes [id number] Apply to [facility] e-betametha 7-12 area(s) 2 ity of sone 00:00: (two) [place] (LOTRISONE) 00 times Medical cream daily. Branch tiZANidine 2022-0 Yes [id number] 4mg Take 1 [facility] nivers 4 mg tablet 7-12 tablet by ity of 00:00: mouth 3 00 (three) Medical times Branch daily as needed for Pain (scale 4-6). clotrimazol 2022-0 Yes [id number] Apply to [facility] e-betametha 7-12 area(s) 2 ity of sone 00:00: (two) [place] (LOTRISONE) 00 times Medical cream daily. Branch tiZANidine 2022-0 Yes [id number] 4mg Take 1 [facility] nivers 4 mg tablet 7-12 tablet by ity of 00:00: mouth 3 00 (three) Medical times Branch daily as needed for Pain (scale 4-6). clotrimazol 2022-0 Yes [id number] Apply to [facility] e-betametha 7-12 area(s) 2 ity of sone 00:00: (two) [place] (LOTRISONE) 00 times Medical cream daily. Branch tiZANidine 2022-0 Yes [id number] 4mg Take 1 [facility] nivers 4 mg tablet 7-12 tablet by ity of 00:00: mouth 3 00 (three) Medical times Branch daily as needed for Pain (scale 4-6). clotrimazol 2022-0 Yes [id number] Apply to [facility] e-betametha 7-12 area(s) 2 ity of sone 00:00: (two) [place] (LOTRISONE) 00 times Medical cream daily. Branch tiZANidine 2022-0 Yes [id number] 4mg Take 1 [facility] nivers 4 mg tablet 7-12 tablet by ity of 00:00: mouth 3 00 (three) Medical times Branch daily as needed for Pain (scale 4-6). clotrimazol 2022-0 Yes [id number] Apply to [facility] e-betametha 7-12 area(s) 2 ity of sone 00:00: (two) [place] (LOTRISONE) 00 times Medical cream daily. Branch tiZANidine 2022-0 Yes [id number] 4mg Take 1 [facility] nivers 4 mg tablet 7-12 tablet by ity of 00:00: mouth 3 [place] 00 (three) Medical times Branch daily as needed for Pain (scale 4-6). clotrimazol 2022-0 Yes [id number] Apply to [facility] e-betametha 7-12 area(s) 2 ity of sone 00:00: (two) [place] (LOTRISONE) 00 times Medical cream daily. Branch tiZANidine 2022-0 Yes [id number] 4mg Take 1 [facility] nivers 4 mg tablet 7-12 tablet by ity of 00:00: mouth 3 00 (three) Medical times Branch daily as needed for Pain (scale 4-6). clotrimazol 2022-0 Yes [id number] Apply to [facility] e-betametha 7-12 area(s) 2 ity of sone 00:00: (two) [place] (LOTRISONE) 00 times Medical cream daily. Branch tiZANidine 2022-0 Yes [id number] 4mg Take 1 [facility] nivers 4 mg tablet 7-12 tablet by ity of 00:00: mouth 3 00 (three) Medical times Branch daily as needed for Pain (scale 4-6). clotrimazol 2022-0 Yes [id number] Apply to [facility] e-betametha 7-12 area(s) 2 ity of sone 00:00: (two) [place] (LOTRISONE) 00 times Medical cream daily. Branch tiZANidine 2022-0 Yes [id number] 4mg Take 1 U nivers 4 mg tablet 7-12 tablet by ity of 00:00: mouth 3 00 (three) Medical times Branch daily as needed for Pain (scale 4-6). clotrimazol 2022-0 Yes [id number] Apply to [facility] e-betametha 7-12 area(s) 2 ity of sone 00:00: (two) [place] (LOTRISONE) 00 times Medical cream daily. Branch tiZANidine 2022-0 Yes [id number] 4mg Take 1 [facility] nivers 4 mg tablet 7-12 tablet by ity of 00:00: mouth 3 00 (three) Medical times Branch daily as needed for Pain (scale 4-6). clotrimazol 2022-0 Yes [id number] Apply to [facility] e-betametha 7-12 area(s) 2 ity of sone 00:00: (two) [place] (LOTRISONE) 00 times Medical cream daily. Branch tiZANidine 2022-0 Yes [id number] 4mg Take 1 [facility] nivers 4 mg tablet 7-12 tablet by ity of 00:00: mouth 3 [place] 00 (three) Medical times Branch daily as needed for Pain (scale 4-6). clotrimazol 2022-0 Yes [id number] Apply to [facility] e-betametha 7-12 area(s) 2 ity of sone 00:00: (two) [place] (LOTRISONE) 00 times Medical cream daily. Branch tiZANidine 2022-0 Yes [id number] 4mg Take 1 [facility] nivers 4 mg tablet 7-12 tablet by ity of 00:00: mouth 3 00 (three) Medical times Branch daily as needed for Pain (scale 4-6). clotrimazol 2022-0 Yes [id number] Apply to [facility] e-betametha 7-12 area(s) 2 ity of sone 00:00: (two) [place] (LOTRISONE) 00 times Medical cream daily. Branch tiZANidine 2022-0 Yes [id number] 4mg Take 1 [facility] nivers 4 mg tablet 7-12 tablet by ity of 00:00: mouth 3 00 (three) Medical times Branch daily as needed for Pain (scale 4-6). clotrimazol 2022-0 Yes [id number] Apply to [facility] e-betametha 7-12 area(s) 2 ity of sone 00:00: (two) [place] (LOTRISONE) 00 times Medical cream daily. Branch tiZANidine 2022-0 Yes [id number] 4mg Take 1 [facility] nivers 4 mg tablet 7-12 tablet by ity of 00:00: mouth 3 00 (three) Medical times Branch daily as needed for Pain (scale 4-6). clotrimazol 2022-0 Yes [id number] Apply to [facility] e-betametha 7-12 area(s) 2 ity of sone 00:00: (two) [place] (LOTRISONE) 00 times Medical cream daily. Branch tiZANidine 2022-0 Yes [id number] 4mg Take 1 U nivers 4 mg tablet 7-12 tablet by ity of 00:00: mouth 3 [place] 00 (three) Medical times Branch daily as needed for Pain (scale 4-6). clotrimazol 2022-0 Yes [id number] Apply to [facility] e-betametha 7-12 area(s) 2 ity of sone 00:00: (two) [place] (LOTRISONE) 00 times Medical cream daily. Branch tiZANidine 2022-0 Yes [id number] 4mg Take 1 U nivers 4 mg tablet 7-12 tablet by ity of 00:00: mouth 3 00 (three) Medical times Branch daily as needed for Pain (scale 4-6). clotrimazol 2022-0 Yes [id number] Apply to [facility] e-betametha 7-12 area(s) 2 ity of sone 00:00: (two) [place] (LOTRISONE) 00 times Medical cream daily. Branch tiZANidine 2022-0 Yes [id number] 4mg Take 1 U nivers 4 mg tablet 7-12 tablet by ity of 00:00: mouth 3 00 (three) Medical times Branch daily as needed for Pain (scale 4-6). clotrimazol 2022-0 Yes [id number] Apply to [facility] e-betametha 7-12 area(s) 2 ity of sone 00:00: (two) [place] (LOTRISONE) 00 times Medical cream daily. Branch tiZANidine 2022-0 Yes [id number] 4mg Take 1 U nivers 4 mg tablet 7-12 tablet by ity of 00:00: mouth 3 00 (three) Medical times Branch daily as needed for Pain (scale 4-6). clotrimazol 2022-0 Yes [id number] Apply to [facility] e-betametha 7-12 area(s) 2 ity of sone 00:00: (two) [place] (LOTRISONE) 00 times Medical cream daily. Branch tiZANidine 2022-0 Yes [id number] 4mg Take 1 U nivers 4 mg tablet 7-12 tablet by ity of 00:00: mouth 3 00 (three) Medical times Branch daily as needed for Pain (scale 4-6). clotrimazol 2022-0 Yes [id number] Apply to [facility] e-betametha 7-12 area(s) 2 ity of sone 00:00: (two) [place] (LOTRISONE) 00 times Medical cream daily. Branch tiZANidine 2022-0 Yes [id number] 4mg Take 1 U nivers 4 mg tablet 7-12 tablet by ity of 00:00: mouth 3 00 (three) Medical times Branch daily as needed for Pain (scale 4-6). clotrimazol 2022-0 Yes [id number] Apply to [facility] e-betametha 7-12 area(s) 2 ity of sone 00:00: (two) [place] (LOTRISONE) 00 times Medical cream daily. Branch tiZANidine 2022-0 Yes [id number] 4mg Take 1 U nivers 4 mg tablet 7-12 tablet by ity of 00:00: mouth 3 00 (three) Medical times Branch daily as needed for Pain (scale 4-6). clotrimazol 2022-0 Yes [id number] Apply to [facility] e-betametha 7-12 area(s) 2 ity of sone 00:00: (two) [place] (LOTRISONE) 00 times Medical cream daily. Branch tiZANidine 2022-0 Yes [id number] 4mg Take 1 U nivers 4 mg tablet 7-12 tablet by ity of 00:00: mouth 3 00 (three) Medical times Branch daily as needed for Pain (scale 4-6). clotrimazol 2022-0 Yes [id number] Apply to [facility] e-betametha 7-12 area(s) 2 ity of sone 00:00: (two) [place] (LOTRISONE) 00 times Medical cream daily. Branch tiZANidine 2022-0 Yes [id number] 4mg Take 1 U nivers 4 mg tablet 7-12 tablet by ity of 00:00: mouth 3 00 (three) Medical times Branch daily as needed for Pain (scale 4-6). clotrimazol 2022-0 Yes [id number] Apply to [facility] e-betametha 7-12 area(s) 2 ity of sone 00:00: (two) [place] (LOTRISONE) 00 times Medical cream daily. Branch tiZANidine 2022-0 Yes [id number] 4mg Take 1 U nivers 4 mg tablet 7-12 tablet by ity of 00:00: mouth 3 [place] 00 (three) Medical times Branch daily as needed for Pain (scale 4-6). clotrimazol 2022-0 Yes [id number] Apply to [facility] e-betametha 7-12 area(s) 2 ity of sone 00:00: (two) [place] (LOTRISONE) 00 times Medical cream daily. Branch tiZANidine 2022-0 Yes [id number] 4mg Take 1 U nivers 4 mg tablet 7-12 tablet by ity of 00:00: mouth 3 [place] 00 (three) Medical times Branch daily as needed for Pain (scale 4-6). clotrimazol 2022-0 Yes [id number] Apply to [facility] e-betametha 7-12 area(s) 2 ity of sone 00:00: (two) [place] (LOTRISONE) 00 times Medical cream daily. Branch tiZANidine 2022-0 Yes [id number] 4mg Take 1 U nivers 4 mg tablet 7-12 tablet by ity of 00:00: mouth 3 00 (three) Medical times Branch daily as needed for Pain (scale 4-6). clotrimazol 2022-0 Yes [id number] Apply to [facility] e-betametha 7-12 area(s) 2 ity of sone 00:00: (two) [place] (LOTRISONE) 00 times Medical cream daily. Branch tiZANidine 2022-0 Yes [id number] 4mg Take 1 U nivers 4 mg tablet 7-12 tablet by ity of 00:00: mouth 3 00 (three) Medical times Branch daily as needed for Pain (scale 4-6). clotrimazol 2022-0 Yes [id number] Apply to [facility] e-betametha 7-12 area(s) 2 ity of sone 00:00: (two) [place] (LOTRISONE) 00 times Medical cream daily. Branch tiZANidine 2022-0 Yes [id number] 4mg Take 1 U nivers 4 mg tablet 7-12 tablet by ity of 00:00: mouth 3 00 (three) Medical times Branch daily as needed for Pain (scale 4-6). clotrimazol 2022-0 Yes [id number] Apply to [facility] e-betametha 7-12 area(s) 2 ity of sone 00:00: (two) [place] (LOTRISONE) 00 times Medical cream daily. Branch tiZANidine 2022-0 Yes [id number] 4mg Take 1 U nivers 4 mg tablet 7-12 tablet by ity of 00:00: mouth 3 [place] 00 (three) Medical times Branch daily as needed for Pain (scale 4-6). clotrimazol 2022-0 Yes [id number] Apply to [facility] e-betametha 7-12 area(s) 2 ity of sone 00:00: (two) [place] (LOTRISONE) 00 times Medical cream daily. Branch tiZANidine 2022-0 Yes [id number] 4mg Take 1 U nivers 4 mg tablet 7-12 tablet by ity of 00:00: mouth 3 00 (three) Medical times Branch daily as needed for Pain (scale 4-6). clotrimazol 2022-0 Yes [id number] Apply to [facility] e-betametha 7-12 area(s) 2 ity of sone 00:00: (two) [place] (LOTRISONE) 00 times Medical cream daily. Branch tiZANidine 2022-0 Yes [id number] 4mg Take 1 U nivers 4 mg tablet 7-12 tablet by ity of 00:00: mouth 3 00 (three) Medical times Branch daily as needed for Pain (scale 4-6). clotrimazol 2022-0 Yes [id number] Apply to [facility] e-betametha 7-12 area(s) 2 ity of sone 00:00: (two) [place] (LOTRISONE) 00 times Medical cream daily. Branch tiZANidine 2022-0 Yes [id number] 4mg Take 1 U nivers 4 mg tablet 7-12 tablet by ity of 00:00: mouth 3 00 (three) Medical times Branch daily as needed for Pain (scale 4-6). clotrimazol 2022-0 Yes [id number] Apply to [facility] e-betametha 7-12 area(s) 2 ity of sone 00:00: (two) [place] (LOTRISONE) 00 times Medical cream daily. Branch tiZANidine 2022-0 Yes [id number] 4mg Take 1 U nivers 4 mg tablet 7-12 tablet by ity of 00:00: mouth 3 [place] 00 (three) Medical times Branch daily as needed for Pain (scale 4-6). clotrimazol 2022-0 Yes [id number] Apply to [facility] e-betametha 7-12 area(s) 2 ity of sone 00:00: (two) [place] (LOTRISONE) 00 times Medical cream daily. Branch tiZANidine 2022-0 Yes [id number] 4mg Take 1 U nivers 4 mg tablet 7-12 tablet by ity of 00:00: mouth 3 [place] 00 (three) Medical times Branch daily as needed for Pain (scale 4-6). clotrimazol 2022-0 Yes [id number] Apply to [facility] e-betametha 7-12 area(s) 2 ity of sone 00:00: (two) [place] (LOTRISONE) 00 times Medical cream daily. Branch tiZANidine 2022-0 Yes [id number] 4mg Take 1 U nivers 4 mg tablet 7-12 tablet by ity of 00:00: mouth 3 00 (three) Medical times Branch daily as needed for Pain (scale 4-6). clotrimazol 2022-0 Yes [id number] Apply to [facility] e-betametha 7-12 area(s) 2 ity of sone 00:00: (two) [place] (LOTRISONE) 00 times Medical cream daily. Branch tiZANidine 2022-0 Yes [id number] 4mg Take 1 [facility] nivers 4 mg tablet 7-12 tablet by ity of 00:00: mouth 3 00 (three) Medical times Branch daily as needed for Pain (scale 4-6). clotrimazol 2022-0 Yes [id number] Apply to [facility] e-betametha 7-12 area(s) 2 ity of sone 00:00: (two) [place] (LOTRISONE) 00 times Medical cream daily. Branch tiZANidine 2022-0 Yes [id number] 4mg Take 1 [facility] nivers 4 mg tablet 7-12 tablet by ity of 00:00: mouth 3 00 (three) Medical times Branch daily as needed for Pain (scale 4-6). clotrimazol 2022-0 Yes [id number] Apply to [facility] e-betametha 7-12 area(s) 2 ity of sone 00:00: (two) [place] (LOTRISONE) 00 times Medical cream daily. Branch tiZANidine 2022-0 Yes [id number] 4mg Take 1 [facility] nivers 4 mg tablet 7-12 tablet by ity of 00:00: mouth 3 [place] 00 (three) Medical times Branch daily as needed for Pain (scale 4-6). clotrimazol 2022-0 Yes [id number] Apply to [facility] e-betametha 7-12 area(s) 2 ity of sone 00:00: (two) [place] (LOTRISONE) 00 times Medical cream daily. Branch tiZANidine 2022-0 Yes [id number] 4mg Take 1 U nivers 4 mg tablet 7-12 tablet by ity of 00:00: mouth 3 [place] 00 (three) Medical times Branch daily as needed for Pain (scale 4-6). clotrimazol 2022-0 Yes [id number] Apply to [facility] e-betametha 7-12 area(s) 2 ity of sone 00:00: (two) [place] (LOTRISONE) 00 times Medical cream daily. Branch tiZANidine 2022-0 Yes [id number] 4mg Take 1 [facility] nivers 4 mg tablet 7-12 tablet by ity of 00:00: mouth 3 00 (three) Medical times Branch daily as needed for Pain (scale 4-6). clotrimazol 2022-0 Yes [id number] Apply to [facility] e-betametha 7-12 area(s) 2 ity of sone 00:00: (two) [place] (LOTRISONE) 00 times Medical cream daily. Branch tiZANidine 2022-0 Yes [id number] 4mg Take 1 [facility] nivers 4 mg tablet 7-12 tablet by ity of 00:00: mouth 3 00 (three) Medical times Branch daily as needed for Pain (scale 4-6). clotrimazol 2022-0 Yes [id number] Apply to [facility] e-betametha 7-12 area(s) 2 ity of sone 00:00: (two) [place] (LOTRISONE) 00 times Medical cream daily. Branch tiZANidine 2022-0 Yes [id number] 4mg Take 1 [facility] nivers 4 mg tablet 7-12 tablet by ity of 00:00: mouth 3 [place] 00 (three) Medical times Branch daily as needed for Pain (scale 4-6). clotrimazol 2022-0 Yes [id number] Apply to [facility] e-betametha 7-12 area(s) 2 ity of sone 00:00: (two) [place] (LOTRISONE) 00 times Medical cream daily. Branch tiZANidine 2022-0 Yes [id number] 4mg Take 1 [facility] nivers 4 mg tablet 7-12 tablet by ity of 00:00: mouth 3 00 (three) Medical times Branch daily as needed for Pain (scale 4-6). clotrimazol 2022-0 Yes [id number] Apply to [facility] e-betametha 7-12 area(s) 2 ity of sone 00:00: (two) [place] (LOTRISONE) 00 times Medical cream daily. Branch tiZANidine 2022-0 Yes [id number] 4mg Take 1 [facility] nivers 4 mg tablet 7-12 tablet by ity of 00:00: mouth 3 00 (three) Medical times Branch daily as needed for Pain (scale 4-6). clotrimazol 2022-0 Yes [id number] Apply to [facility] e-betametha 7-12 area(s) 2 ity of sone 00:00: (two) [place] (LOTRISONE) 00 times Medical cream daily. Branch tiZANidine 2022-0 Yes [id number] 4mg Take 1 [facility] nivers 4 mg tablet 7-12 tablet by ity of 00:00: mouth 3 00 (three) Medical times Branch daily as needed for Pain (scale 4-6). clotrimazol 2022-0 Yes [id number] Apply to [facility] e-betametha 7-12 area(s) 2 ity of sone 00:00: (two) [place] (LOTRISONE) 00 times Medical cream daily. Branch clotrimazol 2022-0 Yes [id number] Apply to [facility] e-betametha 7-12 area(s) 2 ity of sone 00:00: (two) [place] (LOTRISONE) 00 times Medical cream daily. Branch clotrimazol 2022-0 Yes [id number] Apply to [facility] e-betametha 7-12 area(s) 2 ity of sone 00:00: (two) [place] (LOTRISONE) 00 times Medical cream daily. Branch clotrimazol 2022-0 Yes [id number] Apply to [facility] e-betametha 7-12 area(s) 2 ity of sone 00:00: (two) [place] (LOTRISONE) 00 times Medical cream daily. Branch clotrimazol 2022-0 Yes [id number] Apply to [facility] e-betametha 7-12 area(s) 2 ity of sone 00:00: (two) [place] (LOTRISONE) 00 times Medical cream daily. Branch clotrimazol 2022-0 Yes [id number] Apply to [facility] e-betametha 7-12 area(s) 2 ity of sone 00:00: (two) [place] (LOTRISONE) 00 times Medical cream daily. Branch clotrimazol 2022-0 Yes [id number] Apply to [facility] e-betametha 7-12 area(s) 2 ity of sone 00:00: (two) [place] (LOTRISONE) 00 times Medical cream daily. Branch clotrimazol 2022-0 Yes [id number] Apply to [facility] e-betametha 7-12 area(s) 2 ity of sone 00:00: (two) [place] (LOTRISONE) 00 times Medical cream daily. Branch clotrimazol 2022-0 Yes [id number] Apply to [facility] e-betametha 7-12 area(s) 2 ity of sone 00:00: (two) [place] (LOTRISONE) 00 times Medical cream daily. Branch clotrimazol 2022-0 Yes [id number] Apply to [facility] e-betametha 7-12 area(s) 2 ity of sone 00:00: (two) [place] (LOTRISONE) 00 times Medical cream daily. Branch clotrimazol 2022-0 Yes [id number] Apply to [facility] e-betametha 7-12 area(s) 2 ity of sone 00:00: (two) [place] (LOTRISONE) 00 times Medical cream daily. Branch clotrimazol 2022-0 Yes [id number] Apply to [facility] e-betametha 7-12 area(s) 2 ity of sone 00:00: (two) [place] (LOTRISONE) 00 times Medical cream daily. Branch clotrimazol 2022-0 Yes [id number] Apply to [facility] e-betametha 7-12 area(s) 2 ity of sone 00:00: (two) [place] (LOTRISONE) 00 times Medical cream daily. Branch clotrimazol 2021-0 Yes [id number] Apply to [facility] e-betametha 7-12 area(s) 2 ity of sone 00:00: (two) [place] (LOTRISONE) 00 times Medical cream daily. Branch clotrimazol 2021-0 Yes [id number] Apply to [facility] e-betametha 7-12 area(s) 2 ity of sone 00:00: (two) [place] (LOTRISONE) 00 times Medical cream daily. Branch clotrimazol 2021-0 Yes [id number] Apply to [facility] e-betametha 7-12 area(s) 2 ity of sone 00:00: (two) [place] (LOTRISONE) 00 times Medical cream daily. Branch clotrimazol 2021-0 Yes [id number] Apply to [facility] e-betametha 7-12 area(s) 2 ity of sone 00:00: (two) [place] (LOTRISONE) 00 times Medical cream daily. Branch clotrimazol 2021-0 Yes [id number] Apply to [facility] e-betametha 7-12 area(s) 2 ity of sone 00:00: (two) [place] (LOTRISONE) 00 times Medical cream daily. Branch clotrimazol 2021-0 Yes [id number] Apply to [facility] e-betametha 7-12 area(s) 2 ity of sone 00:00: (two) [place] (LOTRISONE) 00 times Medical cream daily. Branch clotrimazol 2021-0 2022- No [id number] Apply to [facility] e-betametha 7-12 -11 area(s) 2 it y of sone 00:00: 00:00 (two) [place] (LOTRISONE) 00 :00 times Medical cream daily. Branch clotrimazol 2021-0 3- No [id number] Apply to [facility] e-betametha 7-12 -11 area(s) 2 it y of sone 00:00: 00:00 (two) [place] (LOTRISONE) 00 :00 times Medical cream daily. [place] tiZANidine 2021-0 3- No [id number] 4mg Take 1 [facility] 4 mg tablet 7-12 06-08 tablet by it y of 00:00: 00:00 mouth 3 [place] 00 :00 (three) Medical times Branch daily as needed for Pain (scale 4-6). tiZANidine 2021-0 3- No [id number] 4mg Take 1 [facility] 4 mg tablet 7-05 26-08 tablet by it y of 00:00: 00:00 mouth 3 [place] 00 :00 (three) Medical times Branch daily as needed for Pain (scale 4-6). tiZANidine 2021-0 3- No [id number] 4mg Take 1 [facility] 4 mg tablet 7-05 26-08 tablet by it y of 00:00: 00:00 mouth 3 [place] 00 :00 (three) Medical times Branch daily as needed for Pain (scale 4-6). tiZANidine 2021-0 3- No [id number] 4mg Take 1 [facility] 4 mg tablet 7-05 26-08 tablet by it y of 00:00: 00:00 mouth 3 [place] 00 :00 (three) Medical times Branch daily as needed for Pain (scale 4-6). lisinopriL 2021-0 Yes [id number] 20mg Take 1 [facility] 20 mg 7-08 tablet by ity of tablet 00:00: mouth [place] 00 daily. Medical Branch lisinopriL 2021-0 Yes [id number] 20mg Take 1 [facility] nivers 20 mg 7-08 tablet by ity of tablet 00:00: mouth [place] 00 daily. Medical Branch lisinopriL 2021-0 Yes [id number] 20mg Take 1 [facility] n[facility] 20 mg 7-08 tablet by ity of tablet 00:00: mouth [place] 00 daily. Medical Branch lisinopriL 2021-0 Yes [id number] 20mg Take 1 [facility] 20 mg 7-08 tablet by ity of tablet 00:00: mouth [place] 00 daily. Medical Branch lisinopriL 2022-0 Yes [id number] 20mg Take 1 [facility] n[facility] 20 mg 7-08 tablet by ity of tablet 00:00: mouth [place] 00 daily. Medical Branch lisinopriL 2022-0 Yes [id number] 20mg Take 1 [facility] nivers 20 mg 7-08 tablet by ity of tablet 00:00: mouth [place] 00 daily. Medical Branch lisinopriL 2-0 Yes [id number] 20mg Take 1 [facility] n[facility] 20 mg 7-08 tablet by ity of tablet 00:00: mouth [place] 00 daily. Medical Branch lisinopriL 2-0 Yes [id number] 20mg Take 1 [facility] nivers 20 mg 7-08 tablet by ity of tablet 00:00: mouth [place] 00 daily. Medical Branch lisinopriL 2021-0 Yes [id number] 20mg Take 1 [facility] 20 mg 7-08 tablet by ity of tablet 00:00: mouth [place] 00 daily. Medical Branch lisinopriL 2-0 Yes [id number] 20mg Take 1 [facility] nivers 20 mg 7-08 tablet by ity of tablet 00:00: mouth [place] 00 daily. Medical Branch lisinopriL 2021-0 Yes [id number] 20mg Take 1 [facility] n[facility] 20 mg 7-08 tablet by ity of tablet 00:00: mouth [place] 00 daily. Medical Branch lisinopriL 2021-0 Yes [id number] 20mg Take 1 [facility] n[facility] 20 mg 7-08 tablet by ity of tablet 00:00: mouth [place] 00 daily. Medical Branch lisinopriL 2021-0 Yes [id number] 20mg Take 1 [facility] 20 mg 7-08 tablet by ity of tablet 00:00: mouth [place] 00 daily. Medical Branch lisinopriL 2021-0 Yes [id number] 20mg Take 1 [facility] n[facility] 20 mg 7-08 tablet by ity of tablet 00:00: mouth [place] 00 daily. Medical Branch lisinopriL 2-0 Yes [id number] 20mg Take 1 [facility] n[facility] 20 mg 7-08 tablet by ity of tablet 00:00: mouth [place] 00 daily. Medical Branch lisinopriL 2-0 Yes [id number] 20mg Take 1 [facility] n[facility] 20 mg 7-08 tablet by ity of tablet 00:00: mouth [place] 00 daily. Medical Branch lisinopriL 2-0 Yes [id number] 20mg Take 1 [facility] n[facility] 20 mg 7-08 tablet by ity of tablet 00:00: mouth [place] 00 daily. Medical Branch lisinopriL 2-0 Yes [id number] 20mg Take 1 [facility] 20 mg 7-08 tablet by ity of tablet 00:00: mouth [place] 00 daily. Medical Branch lisinopriL 2-0 Yes [id number] 20mg Take 1 [facility] 20 mg 7-08 tablet by ity of tablet 00:00: mouth [place] 00 daily. Medical Branch lisinopriL 2021- No [id number] 20mg Take 1 [facility] 20 mg 12-26 tablet by ity of tablet 00:00: 00:00 mouth [place] 00 :00 daily. Medical Branch lisinopriL 2021- No [id number] 20mg Take 1 [facility] 20 mg 12-2629 tablet by ity of tablet 00:00: 00:00 mouth [place] 00 :00 daily. Medical Branch lisinopriL 2021- No [id number] 20mg Take 1 [facility] 20 mg 12-26 tablet by ity of tablet 00:00: 00:00 mouth [place] 00 :00 daily. Medical Branch NOVOLOG MIX Yes [id number] INJECT 20 [facility] 70-30 100 5-31 UNITS ity of unit/mL 00:00: UNDER THE [place] (70-30) 00 SKIN 2 Medical injection (TWO) Branch TIMES DAILY BEFORE BREAKFAST AND DINNER. NOVOLOG MIX Yes [id number] INJECT 20 [facility] 70-30 100 5-31 UNITS ity of unit/mL 00:00: UNDER THE (70-30) 00 SKIN 2 Medical injection (TWO) Branch TIMES DAILY BEFORE BREAKFAST AND DINNER. NOVOLOG MIX Yes [id number] INJECT 20 [facility] 70-30 100 5-31 UNITS ity of unit/mL 00:00: UNDER THE (70-30) 00 SKIN 2 Medical injection (TWO) Branch TIMES DAILY BEFORE BREAKFAST AND DINNER. NOVOLOG MIX 2021- No [id number] INJECT 20 [facility] 70-30 100 5-31 09-14 UNITS ity of unit/mL 00:00: 00:00 [place] THE [place] (70-30[place] 00 :00 SKIN 2 Medical injection (TWO) Branch TIMES DAILY BEFORE BREAKFAST AND DINNER. aspirin Yes 81mg Take 81 mg [facility] ers (ADULT LOW 5-16 by mouth ity o f DOSE 10:43: daily. [place] ASPIRIN) 81 19 Medical mg EC Branch tablet aspirin Yes 81mg Take 81 mg [facility] ers (ADULT LOW 5-16 by mouth ity o f DOSE 10:43: daily. [place] ASPIRIN) 81 19 Medical mg EC Branch [...] mouth ity o f DOSE 10:43: daily. [place] ASPIRIN) 81 19 Medical mg EC Branch tablet CANDESARTAN 2021- No [id number] 4mg TAKE 1 [facility] 4 mg tablet 5-05 07-08 TABLET BY it y of 00:00: 00:00 MOUTH [place] 00 :00 DAILY. Medical REPLACES Branch LISINOPRIL . CANDESARTAN 2021- No [id number] 4mg TAKE 1 [facility] 4 mg tablet 5-05 07-08 TABLET BY it y of 00:00: 00:00 MOUTH [place] 00 :00 DAILY. Medical REPLACES Branch LISINOPRIL . metformin 2021- No [id number] 500mg Take 1 [facility] ER 500 mg 4-19 05-16 tablet by ity of 24 hr 00:00: 00:00 mouth 2 [place] tablet 00 :00 (two) Medical times Branch daily with meals. metformin 2021- No [id number] 500mg Take 1 [facility] ER 500 mg 4-19 05-16 tablet by ity of 24 hr 00:00: 00:00 mouth 2 [place] tablet 00 :00 (two) Medical times Branch daily with meals. fluticasone 2021- No [id number] 2{spray Use 2 [facility] propionate 09-08 } Sprays in ity of 50 00:00: 00:00 each [place] mcg/actuati 00 :00 nostril Medic al on nasal daily. Branch spray guaiFENesin 2021- No [id number] 100mg Take 5 mL [facility] 100 mg/5 mL 09-08 by mouth ity of solution 00:00: 00:00 every 4 [place] 00 :00 (four) Medical hours as Branch needed for Cough. fluticasone 2021- No [id number] 2{spray Use 2 [facility] propionate 09-08 } Sprays in ity of 50 00:00: 00:00 each [place] mcg/actuati 00 :00 nostril Medic al on nasal daily. Branch spray guaiFENesin 2021- No [id number] 100mg Take 5 mL [facility] 100 mg/5 [...] WITH 3-12 area(s). ity of LIDOCAINE 19:59: [place] TOPICAL 46 Medical Branch CBD-KINGS 2021-0 Yes Apply to Univ ers WITH 3-12 area(s). ity of LIDOCAINE 19:59: [place] TOPICAL 46 Medical Branch CBD-KINGS 2021-0 Yes Apply to Univ ers WITH 3-12 area(s). ity of LIDOCAINE 19:59: [place] TOPICAL Medical Branch CBD-KINGS 2021-0 Yes Apply to Univ ers WITH 3-12 area(s). ity of LIDOCAINE 19:59: [place] TOPICAL Medical Branch CBD-KINGS 2021-0 Yes Apply to Univ ers WITH 3-12 area(s). ity of LIDOCAINE 19:59: [place] TOPICAL Medical Branch CBD-KINGS 2021-0 Yes Apply to Univ ers WITH 3-12 area(s). ity of LIDOCAINE 19:59: [place] [id number] Medical Branch CBD-KINGS 2021-0 Yes Apply to Univ ers WITH 3-12 area(s). ity of LIDOCAINE 19:59: [place] TOPICAL Medical Branch CBD-KINGS 2021-0 Yes Apply to Univ ers WITH 3-12 area(s). ity of LIDOCAINE 19:59: [place] TOPICAL Medical Branch CBD-KINGS 2021-0 Yes Apply to Univ ers WITH 3-12 area(s). ity of LIDOCAINE 19:59: [place] TOPICAL Medical Branch CBD-KINGS 2021-0 Yes Apply to Univ ers WITH 3-12 area(s). ity of LIDOCAINE 19:59: [place] TOPICAL Medical Branch CBD-KINGS 2021-0 Yes Apply to Univ ers WITH 3-12 area(s). ity of LIDOCAINE 19:59: [place] [id number] Medical Branch CBD-KINGS 2021-0 Yes Apply to Univ ers WITH 3-12 area(s). ity of LIDOCAINE 19:59: [address] Branch apixaban 2021-2021- No [id number] 5mg Take 1 Univer s (ELIQUIS) 5 3-12 12-19 tablet by it y of mg tablet 00:00: 00:00 mouth 2 [place] 00 :[place] (two) Medical times Branch daily for 180 days. Indication s: atrial fibrillati on apixaban 2021- No 1358 5mg Take 1 Univer s (ELIQUIS) 5 3-12 12-19 tablet by it y of mg tablet 00:00: 00:00 mouth 2 [place] 00 :00 (two) Medical times Branch daily for 180 days. Indication s: atrial fibrillati on FINASTERIDE 2020-06- No [id number] TAKE 1 [facility] 5 mg tablet 08-04 TABLET BY it y of 00:00: 00:00 MOUTH [place] 00 : EVERY DAY Medical Branch FINASTERIDE 2020-06- No [id number] TAKE 1 [facility] 5 mg tablet 08-04 TABLET BY it y of 00:00: 00:00 MOUTH [place] 00 :00 EVERY DAY Medical Branch PANTOPRAZOL 2020-06 Yes [id number] TAKE 1 [facility] E 40 mg EC 1-23 [id number] TABLET BY it y of tablet 00:00: [facility] EVERY DAY Medical Branch PANTOPRAZOL 2020-06 Yes [id number] TAKE 1 [facility] E 40 mg EC 1-23 [id number] TABLET BY it y of tablet 00:00: MOUTH [place] 00 EVERY DAY Medical Branch PANTOPRAZOL 2020-06 Yes [id number] TAKE 1 [facility] E 40 mg EC 1-23 [id number] TABLET BY it y of tablet 00:00: MOUTH [place] 00 EVERY DAY Medical Branch PANTOPRAZOL 2020-06 Yes [id number] TAKE 1 [facility] E 40 mg EC 1-23 [id number] TABLET BY it y of tablet 00:00: MOUTH [place] 00 EVERY DAY Medical Branch PANTOPRAZOL 2020-06 Yes [id number] TAKE 1 [facility] E 40 mg EC 1-23 [id number] TABLET BY it y of tablet 00:00: [facility] 00 EVERY DAY Medical Branch PANTOPRAZOL 2020-06 Yes [id number] TAKE 1 [facility] E 40 mg EC 1-23 [id number] TABLET BY it y of tablet 00:00: MOUTH [place] 00 EVERY DAY Medical Branch PANTOPRAZOL 2020-06 Yes [id number] TAKE 1 [facility] E 40 mg EC 1-23 [id number] TABLET BY it y of tablet 00:00: [facility] 00 EVERY DAY Medical Branch PANTOPRAZOL 2020-06 Yes [id number] TAKE 1 [facility] E 40 mg EC 1-23 [id number] TABLET BY it y of tablet 00:00: MOUTH [place] 00 EVERY DAY Medical Branch PANTOPRAZOL 2020-06 Yes [id number] TAKE 1 [facility] E 40 mg EC 1-23 [id number] TABLET BY it y of tablet 00:00: MOUTH [place] 00 EVERY DAY Medical Branch PANTOPRAZOL 2020-06 Yes [id number] TAKE 1 [facility] E 40 mg EC 1-23 [id number] TABLET BY it y of tablet 00:00: MOUTH [place] EVERY DAY Medical Branch PANTOPRAZOL 2020-06 Yes [id number] TAKE 1 [facility] E 40 mg EC 1-23 [id number] TABLET BY it y of tablet 00:00: [facility] EVERY DAY Medical Branch PANTOPRAZOL 2020-06 Yes [id number] TAKE 1 [facility] E 40 mg EC 1-23 [id number] TABLET BY it y of tablet 00:00: MOUTH [place] EVERY DAY Medical Branch PANTOPRAZOL 2020-06 Yes [id number] TAKE 1 [facility] E 40 mg EC 1-23 [id number] TABLET BY it y of tablet 00:00: [facility] EVERY DAY Medical Branch PANTOPRAZOL 2020-06 Yes [id number] TAKE 1 [facility] E 40 mg EC 1-23 [id number] TABLET BY it y of tablet 00:00: [facility] EVERY DAY Medical Branch PANTOPRAZOL 2020-06 Yes [id number] TAKE 1 [facility] E 40 mg EC 1-23 [id number] TABLET BY it y of tablet 00:00: [facility] EVERY DAY Medical Branch PANTOPRAZOL 2020-06 Yes [id number] TAKE 1 [facility] E 40 mg EC 1-23 [id number] TABLET BY it y of tablet 00:00: MOUTH [place] EVERY DAY Medical Branch PANTOPRAZOL 2020-06 Yes [id number] TAKE 1 [facility] E 40 mg EC 1-23 [id number] TABLET BY it y of tablet 00:00: [facility] EVERY DAY Medical Branch PANTOPRAZOL 2020-06 Yes [id number] TAKE 1 [facility] E 40 mg EC 1-23 [id number] TABLET BY it y of tablet 00:00: [facility] 00 EVERY DAY Medical Branch PANTOPRAZOL 2020-06 Yes [id number] TAKE 1 [facility] E 40 mg EC 1-23 [id number] TABLET BY it y of tablet 00:00: [facility] EVERY DAY Medical Branch PANTOPRAZOL 2020-06 Yes [id number] TAKE 1 [facility] E 40 mg EC 1-23 [id number] TABLET BY it y of tablet 00:00: [facility] EVERY DAY Medical Branch PANTOPRAZOL 2020-06 Yes [id number] TAKE 1 [facility] E 40 mg EC 1-23 [id number] TABLET BY it y of tablet 00:00: MOUTH [place] 00 EVERY DAY Medical Branch PANTOPRAZOL 2020-06 Yes [id number] TAKE 1 [facility] E 40 mg EC 1-23 [id number] TABLET BY it y of tablet 00:00: [facility] EVERY DAY Medical Branch PANTOPRAZOL 2020-06 Yes [id number] TAKE 1 [facility] E 40 mg EC 1-23 [id number] TABLET BY it y of tablet 00:00: [facility] EVERY DAY Medical Branch PANTOPRAZOL 2020-06 Yes [id number] TAKE 1 [facility] E 40 mg EC 1-23 [id number] TABLET BY it y of tablet 00:00: [facility] EVERY DAY Medical Branch PANTOPRAZOL 2020-06 Yes [id number] TAKE 1 [facility] E 40 mg EC 1-23 [id number] TABLET BY it y of tablet 00:00: [facility] EVERY DAY Medical Branch PANTOPRAZOL 2020-06 Yes [id number] TAKE 1 [facility] E 40 mg EC 1-23 [id number] TABLET BY it y of tablet 00:00: [facility] EVERY DAY Medical Branch PANTOPRAZOL 2020-06 Yes [id number] TAKE 1 [facility] E 40 mg EC 1-23 [id number] TABLET BY it y of tablet 00:00: [facility] EVERY DAY Medical Branch PANTOPRAZOL 2020-06 Yes [id number] TAKE 1 [facility] E 40 mg EC 1-23 [id number] TABLET BY it y of tablet 00:00: [facility] EVERY DAY Medical Branch PANTOPRAZOL 2020-06 Yes [id number] TAKE 1 [facility] E 40 mg EC 1-23 [id number] TABLET BY it y of tablet 00:00: [facility] EVERY DAY Medical Branch PANTOPRAZOL 2020-06 Yes [id number] TAKE 1 [facility] E 40 mg EC 1-23 [id number] TABLET BY it y of tablet 00:00: [facility] EVERY DAY Medical Branch PANTOPRAZOL 2020-06 Yes [id number] TAKE 1 [facility] E 40 mg EC 1-23 [id number] TABLET BY it y of tablet 00:00: [facility] EVERY DAY Medical Branch PANTOPRAZOL 2020-06 Yes [id number] TAKE 1 [facility] E 40 mg EC 1-23 [id number] TABLET BY it y of tablet 00:00: [facility] EVERY DAY Medical Branch PANTOPRAZOL 2020-06 Yes [id number] TAKE 1 [facility] E 40 mg EC 1-23 [id number] TABLET BY it y of tablet 00:00: [facility] 00 EVERY DAY Medical Branch PANTOPRAZOL 2020-06 Yes [id number] TAKE 1 [facility] E 40 mg EC 1-23 [id number] TABLET BY it y of tablet 00:00: [facility] EVERY DAY Medical Branch PANTOPRAZOL 2020-06 Yes [id number] TAKE 1 [facility] E 40 mg EC 1-23 [id number] TABLET BY it y of tablet 00:00: [facility] EVERY DAY Medical Branch PANTOPRAZOL 2020-06 Yes [id number] TAKE 1 [facility] E 40 mg EC 1-23 [id number] TABLET BY it y of tablet 00:00: MOUTH [place] EVERY DAY Medical Branch PANTOPRAZOL 2020-06 Yes [id number] TAKE 1 [facility] E 40 mg EC 1-23 [id number] TABLET BY it y of tablet 00:00: [facility] EVERY DAY Medical Branch PANTOPRAZOL 2020-06 Yes [id number] TAKE 1 [facility] E 40 mg EC 1-23 [id number] TABLET BY it y of tablet 00:00: [facility] EVERY DAY Medical Branch PANTOPRAZOL 2020-06 Yes [id number] TAKE 1 [facility] E 40 mg EC 1-23 [id number] TABLET BY it y of tablet 00:00: [facility] EVERY DAY Medical Branch PANTOPRAZOL 2020-06 Yes [id number] TAKE 1 [facility] E 40 mg EC 1-23 [id number] TABLET BY it y of tablet 00:00: [facility] EVERY DAY Medical Branch PANTOPRAZOL 2020-06 Yes [id number] TAKE 1 [facility] E 40 mg EC 1-23 [id number] TABLET BY it y of tablet 00:00: [facility] EVERY DAY Medical Branch PANTOPRAZOL 2020-06 Yes [id number] TAKE 1 [facility] E 40 mg EC 1-23 [id number] TABLET BY it y of tablet 00:00: [facility] EVERY DAY Medical Branch PANTOPRAZOL 2020-06 Yes [id number] TAKE 1 [facility] E 40 mg EC 1-23 [id number] TABLET BY it y of tablet 00:00: [facility] EVERY DAY Medical Branch PANTOPRAZOL 2020-06 Yes [id number] TAKE 1 [facility] E 40 mg EC 1-23 [id number] TABLET BY it y of tablet 00:00: [facility] EVERY DAY Medical Branch PANTOPRAZOL 2020-06 Yes [id number] TAKE 1 [facility] E 40 mg EC 1-23 [id number] TABLET BY it y of tablet 00:00: [facility] EVERY DAY Medical Branch PANTOPRAZOL 2020-06 Yes [id number] TAKE 1 [facility] E 40 mg EC 1-23 [id number] TABLET BY it y of tablet 00:00: [facility] EVERY DAY Medical Branch PANTOPRAZOL 2020-06 Yes [id number] TAKE 1 [facility] E 40 mg EC 1-23 [id number] TABLET BY it y of tablet 00:00: [facility] EVERY DAY Medical Branch PANTOPRAZOL 2020-06 Yes [id number] TAKE 1 [facility] E 40 mg EC 1-23 [id number] TABLET BY it y of tablet 00:00: [facility] EVERY DAY Medical Branch PANTOPRAZOL 2020-06 Yes [id number] TAKE 1 [facility] E 40 mg EC 1-23 [id number] TABLET BY it y of tablet 00:00: [facility] EVERY DAY Medical Branch PANTOPRAZOL 2020-06 Yes [id number] TAKE 1 [facility] E 40 mg EC 1-23 [id number] TABLET BY it y of tablet 00:00: [facility] EVERY DAY Medical Branch PANTOPRAZOL 2020-06 Yes [id number] TAKE 1 [facility] E 40 mg EC 1-23 [id number] TABLET BY it y of tablet 00:00: [facility] EVERY DAY Medical Branch PANTOPRAZOL 2020-06 Yes [id number] TAKE 1 [facility] E 40 mg EC 1-23 [id number] TABLET BY it y of tablet 00:00: [facility] EVERY DAY Medical Branch PANTOPRAZOL 2020-06 Yes [id number] TAKE 1 [facility] E 40 mg EC 1-23 [id number] TABLET BY it y of tablet 00:00: [facility] EVERY DAY Medical Branch PANTOPRAZOL 2020-06 Yes [id number] TAKE 1 [facility] E 40 mg EC 1-23 [id number] TABLET BY it y of tablet 00:00: [facility] EVERY DAY Medical Branch PANTOPRAZOL 2020-06 Yes [id number] TAKE 1 [facility] E 40 mg EC 1-23 [id number] TABLET BY it y of tablet 00:00: [facility] EVERY DAY Medical Branch PANTOPRAZOL 2020-06 Yes [id number] TAKE 1 [facility] E 40 mg EC 1-23 [id number] TABLET BY it y of tablet 00:00: [facility] EVERY DAY Medical Branch PANTOPRAZOL 2020-06 Yes [id number] TAKE 1 [facility] E 40 mg EC 1-23 [id number] TABLET BY it y of tablet 00:00: [facility] EVERY DAY Medical Branch PANTOPRAZOL 2020-06 Yes [id number] TAKE 1 [facility] E 40 mg EC 1-23 [id number] TABLET BY it y of tablet 00:00: [facility] 00 EVERY DAY Medical Branch PANTOPRAZOL 2020-06 Yes [id number] TAKE 1 [facility] E 40 mg EC 1-23 [id number] TABLET BY it y of tablet 00:00: [facility] EVERY DAY Medical Branch PANTOPRAZOL 2020-06 Yes [id number] TAKE 1 [facility] E 40 mg EC 1- [id number] TABLET BY it y of tablet 00:00: [facility] EVERY DAY Medical Branch PANTOPRAZOL 2020-06 Yes [id number] TAKE 1 [facility] E 40 mg EC 1-23 [id number] TABLET BY it y of tablet 00:00: [facility] EVERY DAY Medical Branch PANTOPRAZOL 2020-06 Yes [id number] TAKE 1 [facility] E 40 mg EC 1-23 [id number] TABLET BY it y of tablet 00:00: [facility] EVERY DAY Medical Branch PANTOPRAZOL 2020-06 Yes [id number] TAKE 1 [facility] E 40 mg EC 1- [id number] TABLET BY it y of tablet 00:00: [facility] EVERY DAY Medical Branch PANTOPRAZOL 2020-06 Yes [id number] TAKE 1 [facility] E 40 mg EC 1-23 [id number] TABLET BY it y of tablet 00:00: [facility] EVERY DAY Medical Branch PANTOPRAZOL 2020-06 Yes [id number] TAKE 1 [facility] E 40 mg EC 1-23 [id number] TABLET BY it y of tablet 00:00: [facility] EVERY DAY Medical Branch PANTOPRAZOL 2020-06 Yes [id number] TAKE 1 [facility] E 40 mg EC 1-23 [id number] TABLET BY it y of tablet 00:00: [facility] EVERY DAY Medical Branch PANTOPRAZOL 2020-06 Yes [id number] TAKE 1 [facility] E 40 mg EC 1-23 [id number] TABLET BY it y of tablet 00:00: [facility] EVERY DAY Medical Branch PANTOPRAZOL 2020-06 Yes [id number] TAKE 1 [facility] E 40 mg EC 1-23 [id number] TABLET BY it y of tablet 00:00: [facility] EVERY DAY Medical Branch PANTOPRAZOL 2020-06 Yes [id number] TAKE 1 [facility] E 40 mg EC 1-23 [id number] TABLET BY it y of tablet 00:00: [facility] EVERY DAY Medical Branch PANTOPRAZOL 2020-06 Yes [id number] TAKE 1 [facility] E 40 mg EC 1-23 [id number] TABLET BY it y of tablet 00:00: MOUTH [place] 00 EVERY DAY Medical Branch PANTOPRAZOL 2020-06 Yes [id number] TAKE 1 [facility] E 40 mg EC 1-23 [id number] TABLET BY it y of tablet 00:00: MOUTH [place] EVERY DAY Medical Branch PANTOPRAZOL 2020-06 Yes [id number] TAKE 1 [facility] E 40 mg EC 1-23 [id number] TABLET BY it y of tablet 00:00: [facility] EVERY DAY Medical Branch PANTOPRAZOL 2020-06 Yes [id number] TAKE 1 [facility] E 40 mg EC 1-23 [id number] TABLET BY it y of tablet 00:00: MOUTH [place] EVERY DAY Medical Branch PANTOPRAZOL 2020-06 Yes [id number] TAKE 1 [facility] E 40 mg EC 1-23 [id number] TABLET BY it y of tablet 00:00: [facility] EVERY DAY Medical Branch PANTOPRAZOL 2020-06 Yes [id number] TAKE 1 [facility] E 40 mg EC 1-23 [id number] TABLET BY it y of tablet 00:00: [facility] EVERY DAY Medical Branch PANTOPRAZOL 2020-06 Yes [id number] TAKE 1 [facility] E 40 mg EC 1-23 [id number] TABLET BY it y of tablet 00:00: [facility] EVERY DAY Medical Branch PANTOPRAZOL 2020-06 Yes [id number] TAKE 1 [facility] E 40 mg EC 1-23 [id number] TABLET BY it y of tablet 00:00: MOUTH [place] EVERY DAY Medical Branch PANTOPRAZOL 2020-06 Yes [id number] TAKE 1 [facility] E 40 mg EC 1-23 [id number] TABLET BY it y of tablet 00:00: [facility] EVERY DAY Medical Branch PANTOPRAZOL 2020-06 Yes [id number] TAKE 1 [facility] E 40 mg EC 1-23 [id number] TABLET BY it y of tablet 00:00: [facility] 00 EVERY DAY Medical Branch PANTOPRAZOL 2020-06 Yes [id number] TAKE 1 [facility] E 40 mg EC 1-23 [id number] TABLET BY it y of tablet 00:00: [facility] EVERY DAY Medical Branch PANTOPRAZOL 2020-06 Yes [id number] TAKE 1 [facility] E 40 mg EC 1-23 [id number] TABLET BY it y of tablet 00:00: [facility] EVERY DAY Medical Branch PANTOPRAZOL 2020-06 Yes [id number] TAKE 1 [facility] E 40 mg EC 1-23 [id number] TABLET BY it y of tablet 00:00: MOUTH [place] 00 EVERY DAY Medical Branch PANTOPRAZOL 2020-06 Yes [id number] TAKE 1 [facility] E 40 mg EC 07-13 [id number] TABLET BY it y of tablet 00:00: MOUTH [place] 00 EVERY DAY Medical Branch PANTOPRAZOL 2020-06 Yes [id number] TAKE 1 Univers E 40 mg EC 07-13 [id number] TABLET BY it y of tablet 00:00: MOUTH [place] 00 EVERY DAY [facility] PANTOPRAZOL 2020-06 Yes [id number] TAKE 1 [facility] 40 mg EC 07-13 [id number] TABLET BY it y of tablet 00:00: MOUTH [place] 00 EVERY DAY [facility] PANTOPRAZOL 2020-06- No [id number] TAKE 1 [facility] E 40 mg EC -04-08 [id number] TABLET BY i ty of tablet 00:00: 00:00 MOUTH [place] 00 :00 EVERY DAY [facility] PANTOPRAZOL 2020-06- No [id number] TAKE 1 [facility] E 40 mg EC -04-08 [id number] TABLET BY i ty of tablet 00:00: 00:00 MOUTH [place] 00 :00 EVERY DAY [facility] escitalopra 2020-06- No [id number] 10mg Take 1 [facility] m oxalate 1-15 -29 tablet by ity of 10 mg 00:00: 00:00 mouth [place] tablet 00 :00 daily. [facility] escitalopra 2020-06- No [id number] 10mg Take 1 [facility] oxalate 1-15 -29 tablet by ity of 10 mg 00:00: 00:00 mouth [place] tablet 00 :00 daily. [facility] Insulin Yes [id number] Use as [facility] [place], 9-20 directed ity of Disposable, 00:00: twice [place] (PEN 00 daily to Medical NEEDLE) 32 inject Branch gauge x insulin; " Ndle ICD-10 E11.65 Insulin Yes [id number] Use as [facility] [place], 9-20 directed ity of Disposable, 00:00: twice [place] (PEN 00 daily to Medical NEEDLE) 32 inject Branch gauge x insulin; " Ndle ICD-10 E11.65 Insulin Yes [id number] Use as [facility] [place], 9-20 directed ity of Disposable, 00:00: twice [place] (PEN 00 daily to Medical NEEDLE) 32 inject Branch gauge x insulin; 5/32" Ndle ICD-10 E11.65 Insulin 2020-0 Yes [id number] Use as [facility] [place], 9-20 directed ity of Disposable, 00:00: twice [place] (PEN 00 daily to Medical NEEDLE) 32 inject Branch gauge x insulin; 5/32" Ndle ICD-10 E11.65 Insulin 2020-0 Yes [id number] Use as [facility] [place], 9-20 directed ity of Disposable, 00:00: twice [place] (PEN 00 daily to Medical NEEDLE) 32 inject Branch gauge x insulin; 5/32" Ndle ICD-10 E11.65 Insulin 0 Yes [id number] Use as [facility] [place], 9-20 directed ity of Disposable, 00:00: twice [place] (PEN 00 daily to Medical NEEDLE) 32 inject Branch gauge x insulin; 5/32" Ndle ICD-10 E11.65 Insulin 0 Yes [id number] Use as [facility] [place], 9-20 directed ity of Disposable, 00:00: twice [place] (PEN 00 daily to Medical NEEDLE) 32 inject Branch gauge x insulin; 5/32" Ndle ICD-10 E11.65 Insulin 2020-0 Yes [id number] Use as [facility] [place], 9-20 directed ity of Disposable, 00:00: twice [place] (PEN 00 daily to Medical NEEDLE) 32 inject Branch gauge x insulin; 5/" Ndle ICD-10 E11.65 Insulin 2020-0 Yes [id number] Use as [facility] [place], 9-20 directed ity of Disposable, 00:00: twice [place] (PEN 00 daily to Medical NEEDLE) 32 inject Branch gauge x insulin; 5/32" Ndle ICD-10 E11.65 Insulin 2020-0 Yes [id number] Use as [facility] [place], 9-20 directed ity of Disposable, 00:00: twice [place] (PEN 00 daily to Medical NEEDLE) 32 inject Branch gauge x insulin; 5/32" Ndle ICD-10 E11.65 Insulin 2020-0 Yes [id number] Use as [facility] [place], 9-20 directed ity of Disposable, 00:00: twice [place] (PEN 00 daily to Medical NEEDLE) 32 inject Branch gauge x insulin; 5/32" Ndle ICD-10 E11.65 Insulin 2020-0 Yes [id number] Use as [facility] [place], 9-20 directed ity of Disposable, 00:00: twice [place] (PEN 00 daily to Medical NEEDLE) 32 inject Branch gauge x insulin; 5/32" Ndle ICD-10 E11.65 Insulin 2020-0 Yes [id number] Use as [facility] [place], 9-20 directed ity of Disposable, 00:00: twice [place] (PEN 00 daily to Medical NEEDLE) 32 inject Branch gauge x insulin; 5/32" Ndle ICD-10 E11.65 Insulin 2020-0 Yes [id number] Use as [facility] [place], 9-20 directed ity of Disposable, 00:00: twice [place] (PEN 00 daily to Medical NEEDLE) 32 inject Branch gauge x insulin; 5/32" Ndle ICD-10 E11.65 Insulin 2020-0 Yes [id number] Use as [facility] [place], 9-20 directed ity of Disposable, 00:00: twice [place] (PEN 00 daily to Medical NEEDLE) 32 inject Branch gauge x insulin; 5/32" Ndle ICD-10 E11.65 Insulin 2020-0 Yes [id number] Use as [facility] [place], 9-20 directed ity of Disposable, 00:00: twice [place] (PEN 00 daily to Medical NEEDLE) 32 inject Branch gauge x insulin; 5/32" Ndle ICD-10 E11.65 Insulin 2020-0 Yes [id number] Use as [facility] [place], 9-20 directed ity of Disposable, 00:00: twice [place] (PEN 00 daily to Medical NEEDLE) 32 inject Branch gauge x insulin; 5/32" Ndle ICD-10 E11.65 Insulin 2020-0 Yes [id number] Use as [facility] [place], 9-20 directed ity of Disposable, 00:00: twice [place] (PEN 00 daily to Medical NEEDLE) 32 inject Branch gauge x insulin; 5/32" Ndle ICD-10 E11.65 Insulin 2020-0 Yes [id number] Use as [facility] [place], 9-20 directed ity of Disposable, 00:00: twice [place] (PEN 00 daily to Medical NEEDLE) 32 inject Branch gauge x insulin; 5/32" Ndle ICD-10 E11.65 Insulin 2020-0 Yes [id number] Use as [facility] [place], 9-20 directed ity of Disposable, 00:00: twice [place] (PEN 00 daily to Medical NEEDLE) 32 inject Branch gauge x insulin; 5/32" Ndle ICD-10 E11.65 Insulin 2020-0 Yes [id number] Use as [facility] [place], 9-20 directed ity of Disposable, 00:00: twice [place] (PEN 00 daily to Medical NEEDLE) 32 inject Branch gauge x insulin; 5/" Ndle ICD-10 E11.65 Insulin 2020-0 Yes [id number] Use as [facility] [place], 9-20 directed ity of Disposable, 00:00: twice [place] (PEN 00 daily to Medical NEEDLE) 32 inject Branch gauge x insulin; 5/" Ndle ICD-10 E11.65 Insulin 2020-0 Yes [id number] Use as [facility] [place], 9-20 directed ity of Disposable, 00:00: twice [place] (PEN 00 daily to Medical NEEDLE) 32 inject Branch gauge x insulin; " Ndle ICD-10 E11.65 Insulin 2020-0 Yes [id number] Use as [facility] [place], 9-20 directed ity of Disposable, 00:00: twice [place] (PEN 00 daily to Medical NEEDLE) 32 inject Branch gauge x insulin; " Ndle ICD-10 E11.65 Insulin 2020-0 Yes [id number] Use as [facility] [place], 9-20 directed ity of Disposable, 00:00: twice [place] (PEN 00 daily to Medical NEEDLE) 32 inject Branch gauge x insulin; " Ndle ICD-10 E11.65 Insulin 2020-0 Yes [id number] Use as [facility] [place], 9-20 directed ity of Disposable, 00:00: twice [place] (PEN 00 daily to Medical NEEDLE) 32 inject Branch gauge x insulin; " Ndle ICD-10 E11.65 Insulin 2020-0 Yes [id number] Use as [facility] [place], 9-20 directed ity of Disposable, 00:00: twice [place] (PEN 00 daily to Medical NEEDLE) 32 inject Branch gauge x insulin; 5/32" Ndle ICD-10 E11.65 Insulin 2020-0 Yes [id number] Use as [facility] [place], 9-20 directed ity of Disposable, 00:00: twice [place] (PEN 00 daily to Medical NEEDLE) 32 inject Branch gauge x insulin; /" Ndle ICD-10 E11.65 Insulin 2020-0 Yes [id number] Use as [facility] [place], 9-20 directed ity of Disposable, 00:00: twice [place] (PEN 00 daily to Medical NEEDLE) 32 inject Branch gauge x insulin; 5/" Ndle ICD-10 E11.65 Insulin Yes [id number] Use as [facility] [place], 03-10 directed ity of Disposable, 00:00: twice [place] (PEN 00 daily to Medical NEEDLE) 32 inject Branch gauge x insulin; 5/32" Ndle ICD-10 E11.65 Insulin Yes [id number] Use as [facility] [place], 03-10 directed ity of Disposable, 00:00: twice [place] (PEN 00 daily to Medical NEEDLE) 32 inject Branch gauge x insulin; 532" Ndle ICD-10 E11.65 Insulin Yes [id number] Use as [facility] [place], 03-10 directed ity of Disposable, 00:00: twice [place] (PEN 00 daily to Medical NEEDLE) 32 inject Branch gauge x insulin; 5" Ndle ICD-10 E11.65 Insulin 2022- No [id number] Use as [facility] [place], 03-10 directed ity of Disposable, 00:00: 00:00 [place] (PEN 00 :00 daily to Medical NEEDLE) 32 inject Branch gauge x insulin; 532" Ndle ICD-10 E11.65 Insulin 2022- No [id number] Use as [facility] [place], 03-10 directed ity of Disposable, 00:00: 00:00 [place] (PEN 00 :00 daily to Medical NEEDLE) 32 inject Branch gauge x insulin; 532" Ndle ICD-10 E11.65 blood sugar 2021- No [id number] USE TWICE [facility] diagnostic 03-10-04 DAILY FOR ity of (ASCENSIA 00:00: 00:00 BLOOD [place] MICROFILL) 00 :00 GLUCOSE Medica l strip MONITORING Branch FOR ICD E11.9 blood sugar 2021- No [id number] USE TWICE [facility] diagnostic 03-10-04 DAILY FOR ity of (ASCENSIA 00:00: 00:00 BLOOD [place] MICROFILL) 00 :00 GLUCOSE Medica l strip MONITORING Branch FOR ICD E11.9 insulin 2021- No [id number] 20U inject 20 [facility] aspart 03-10 05-31 Units ity of protamine-i 00:00: 00:00 under the [place] nsulin 00 :00 skin 2 Medical aspart (two) Branch (NOVOLOG times MIX 70-30 daily U-100 before INSULN) 100 breakfast unit/mL and (70-30) dinner. injection insulin 2021- No [id number] 20U inject 20 [facility] aspart 9-20 05-31 Units ity of protamine-i 00:00: 00:00 under the [place] nsulin 00 :00 skin 2 Medical aspart (two) Branch (NOVOLOG times MIX 70-30 daily U-100 before INSULN) 100 breakfast unit/mL and (70-30) dinner. injection Immunizations Ordered Filled Date Status Comments Source Immunization Name Immunization Name Influenza High Dose 2020-04-19 Completed [facility] 00:00:00 [place] [facility] Influenza High Dose 2020-04-19 Completed [facility] 00:00:00 [facility] Influenza High Dose 2020-04-19 Completed [facility] 00:00:00 [facility] Influenza High Dose 2020-04-19 Completed [facility] 00:00:00 [facility] Influenza High Dose 2020-04-19 Completed [facility] 00:00:00 [facility] Influenza High Dose 2020-04-19 Completed [facility] 00:00:00 [facility] Influenza High Dose 2020-04-19 Completed [facility] 00:00:00 [facility] Influenza High Dose 2020-04-19 Completed [facility] 00:00:00 [facility] Influenza High Dose 2020-04-19 Completed [facility] 00:00:00 [facility] Influenza High Dose 2020-04-19 Completed [facility] 00:00:00 [facility] Influenza High Dose 2020-04-19 Completed [facility] of Quad 00:00:00 [facility] Influenza High Dose 2020-04-19 Completed [facility] of Quad 00:00:00 [facility] Influenza High Dose 2020-04-19 Completed [facility] of Quad 00:00:00 [facility] Influenza High Dose 2020-04-19 Completed [facility] of [facility] 00:00:00 [facility] Influenza High Dose 2020-04-19 Completed [facility] 00:00:00 [facility] Influenza High Dose 2020-04-19 Completed [facility] of [facility] 00:00:00 [place] [facility] Influenza High Dose 2020-04-19 Completed [facility] of Quad 00:00:00 [facility] Influenza High Dose 2020-04-19 Completed Unive rs[facility] of Quad 00:00:00 [facility] Influenza High Dose 2020-04-19 Completed Unive rs[facility] of Quad 00:00:00 [facility] Influenza High Dose 2020-04-19 Completed [facility] of Quad 00:00:00 [facility] Influenza High Dose 2020-04-19 Completed [facility] of Quad 00:00:00 [facility] Influenza High Dose 2020-04-19 Completed [facility] of [facility] 00:00:00 [facility] Influenza High Dose 2020-04-19 Completed [facility] of [facility] 00:00:00 [facility] Influenza High Dose 2020-04-19 Completed [facility] of Quad 00:00:00 [facility] Influenza High Dose 2020-04-19 Completed [facility] of Quad 00:00:00 [facility] Influenza High Dose 2020-04-19 Completed [facility] of Quad 00:00:00 [facility] Influenza High Dose 2020-04-19 Completed [facility] of [facility] 00:00:00 [facility] Influenza High Dose 2020-04-19 Completed [facility] of [facility] 00:00:00 [facility] Influenza High Dose 2020-04-19 Completed [facility] of [facility] 00:00:00 [facility] Influenza High Dose 2020-04-19 Completed [facility] of Quad 00:00:00 [facility] Influenza High Dose 2020-04-19 Completed Unive rs[facility] of Quad 00:00:00 [facility] Influenza High Dose 2020-04-19 Completed [facility] rs[facility] of Quad 00:00:00 [facility] Influenza High Dose 2020-04-19 Completed Unive rs[facility] of Quad 00:00:00 [facility] Influenza High Dose 2020-04-19 Completed Un[facility] of Quad 00:00:00 [facility] Influenza High Dose 2020-04-19 Completed Unive rs[facility] of Quad 00:00:00 [facility] Influenza High Dose 2020-04-19 Completed Unive rs[facility] of Quad 00:00:00 [facility] Influenza High Dose 2020-04-19 Completed Un[facility] rs[facility] of Quad 00:00:00 [facility] Influenza High Dose 2020-04-19 Completed Unive rs[facility] of Quad 00:00:00 [facility] Influenza High Dose 2020-04-19 Completed Un[facility] of Quad 00:00:00 [place] [facility] Influenza High Dose 2020-04-19 Completed Un[facility] of Quad 00:00:00 [place] [facility] Influenza High Dose 2020-04-19 Completed Un[facility] rs[facility] of Quad 00:00:00 [place] [facility] Influenza High Dose 2020-04-19 Completed [facility] of Quad 00:00:00 [place] [facility] Influenza High Dose 2020-04-19 Completed [facility] of Quad 00:00:00 [place] [facility] Influenza High Dose 2020-04-19 Completed [facility]ive rs[facility] of Quad 00:00:00 [place] [facility] Influenza High Dose 2020-04-19 Completed [facility] rs[facility] of Quad 00:00:00 [place] [facility] Influenza High Dose 2020-04-19 Completed [facility] of Quad 00:00:00 [place] [facility] Influenza High Dose 2020-04-19 Completed [facility] of Quad 00:00:00 [place] [facility] Influenza High Dose 2020-04-19 Completed Un[facility] of Quad 00:00:00 [facility] Influenza High Dose 2020-04-19 Completed Unive rs[facility] of Quad 00:00:00 [place] [facility] Influenza High Dose 2020-04-19 Completed Unive rs[facility] of Quad 00:00:00 [place] [facility] Influenza High Dose 2020-04-19 Completed Unive rsity of Quad 00:00:00 [place] [facility] Influenza High Dose 2020-04-19 Completed Un[facility] rs[facility] of Quad 00:00:00 [facility] Influenza High Dose 2020-04-19 Completed Unive rs[facility] of Quad 00:00:00 [facility] Influenza High Dose 2020-04-19 Completed Unive rs[facility] of Quad 00:00:00 [place] [facility] Influenza High Dose 2020-04-19 Completed Unive rs[facility] of Quad 00:00:00 [place] [facility] Influenza High Dose 2020-04-19 Completed Unive rs[facility] of Quad 00:00:00 [place] [facility] Influenza High Dose 2020-04-19 Completed Unive rs[facility] of Quad 00:00:00 [place] [facility] Influenza High Dose 2020-04-19 Completed Unive [facility] of Quad 00:00:00 [place] [facility] Influenza High Dose 2020-04-19 Completed [facility] of [facility] 00:00:00 [place] [facility] Influenza High Dose 2020-04-19 Completed [facility] of [facility] 00:00:00 [place] [facility] Influenza High Dose 2020-04-19 Completed Unive rs[facility] of Quad 00:00:00 [place] [facility] Influenza High Dose 2020-04-19 Completed Un[facility] of [facility] 00:00:00 [facility] Influenza High Dose 2020-04-19 Completed Unive [facility] of Quad 00:00:00 [facility] Influenza High Dose 2020-04-19 Completed Unive rs[facility] of Quad 00:00:00 [facility] Influenza High Dose 2020-04-19 Completed Unive [facility] of Quad 00:00:00 [facility] Influenza High Dose 2020-04-19 Completed Un[facility] of Quad 00:00:00 [facility] Influenza High Dose 2020-04-19 Completed [facility] of [facility] 00:00:00 [facility] Influenza High Dose 2020-04-19 Completed [facility] of [facility] 00:00:00 [facility] Influenza High Dose 2020-04-19 Completed Unive rs[facility] of Quad 00:00:00 [facility] Influenza High Dose 2020-04-19 Completed Unive rs[facility] of Quad 00:00:00 [facility] Influenza High Dose 2020-04-19 Completed Unive rsity of Quad 00:00:00 [facility] Influenza High Dose 2020-04-19 Completed Unive rsity of Quad 00:00:00 [facility] Influenza High Dose 2020-04-19 Completed Unive rsity of Quad 00:00:00 [facility] Influenza High Dose 2020-04-19 Completed Unive rsity of Quad 00:00:00 [facility] Influenza High Dose 2020-04-19 Completed Unive rsity of Quad 00:00:00 [facility] Influenza High Dose 2019-04-11 Completed Unive rsity of 00:00:00 [facility] Influenza High Dose 2019-04-11 Completed Unive rsity of 00:00:00 [facility] Influenza High Dose 2019-04-11 Completed Unive rsity of 00:00:00 [facility] Influenza High Dose 2019-04-11 Completed Unive rsity of 00:00:00 [facility] Influenza High Dose 2019-04-11 Completed Unive rsity of 00:00:00 [facility] Influenza High Dose 2019-04-11 Completed Unive rsity of 00:00:00 [facility] Influenza High Dose 2019-04-11 Completed Unive rsity of 00:00:00 [facility] Influenza High Dose 2019-04-11 Completed Unive rsity of 00:00:00 [facility] Influenza High Dose 2019-04-11 Completed Unive rsity of 00:00:00 [facility] Influenza High Dose 2019-04-11 Completed Unive rsity of 00:00:00 [facility] Influenza High Dose 2019-04-11 Completed Unive rsity of 00:00:00 [facility] Influenza High Dose 2019-04-11 Completed Unive rsity of 00:00:00 [facility] Influenza High Dose 2019-04-11 Completed Unive rsity of 00:00:00 [facility] Influenza High Dose 2019-04-11 Completed Unive rsity of 00:00:00 [facility] Influenza High Dose 2019-04-11 Completed Unive rsity of 00:00:00 [facility] Influenza High Dose 2019-04-11 Completed Unive rsity of 00:00:00 [facility] Influenza High Dose 2019-04-11 Completed Unive rsity of 00:00:00 [facility] Influenza High Dose 2019-04-11 Completed Unive rsity of 00:00:00 [facility] Influenza High Dose 2019-04-11 Completed Unive rsity of 00:00:00 [facility] Influenza High Dose 2019-04-11 Completed Unive rsity of 00:00:00 [facility] Influenza High Dose 2019-04-11 Completed Unive rsity of 00:00:00 [facility] Influenza High Dose 2019-04-11 Completed Unive rsity of 00:00:00 [facility] Influenza High Dose 2019-04-11 Completed Unive rsity of 00:00:00 [facility] Influenza High Dose 2019-04-11 Completed Unive rsity of 00:00:00 [facility] Influenza High Dose 2019-04-11 Completed Unive rsity of 00:00:00 [facility] Influenza High Dose 2019-04-11 Completed Unive rsity of 00:00:00 [facility] Influenza High Dose 2019-04-11 Completed Unive rsity of 00:00:00 [facility] Influenza High Dose 2019-04-11 Completed Unive rsity of 00:00:00 [facility] Influenza High Dose 2019-04-11 Completed Unive rsity of 00:00:00 [facility] Influenza High Dose 2019-04-11 Completed Unive rsity of 00:00:00 [facility] Influenza High Dose 2019-04-11 Completed Unive rsity of 00:00:00 [facility] Influenza High Dose 2019-04-11 Completed Unive rsity of 00:00:00 [facility] Influenza High Dose 2019-04-11 Completed Unive rsity of 00:00:00 [facility] Influenza High Dose 2019-04-11 Completed Unive rsity of 00:00:00 [facility] Influenza High Dose 2019-04-11 Completed Unive rsity of 00:00:00 [facility] Influenza High Dose 2019-04-11 Completed Unive rsity of 00:00:00 [facility] Influenza High Dose 2019-04-11 Completed Unive rsity of 00:00:00 [facility] Influenza High Dose 2019-04-11 Completed Unive rsity of 00:00:00 [facility] Influenza High Dose 2019-04-11 Completed Unive rsity of 00:00:00 [facility] Influenza High Dose 2019-04-11 Completed Unive rsity of 00:00:00 [facility] Influenza High Dose 2019-04-11 Completed Unive rsity of 00:00:00 [facility] Influenza High Dose 2019-04-11 Completed Unive rsity of 00:00:00 [facility] Influenza High Dose 2019-04-11 Completed Unive rsity of 00:00:00 [facility] Influenza High Dose 2019-04-11 Completed Unive rsity of 00:00:00 [facility] Influenza High Dose 2019-04-11 Completed Unive rsity of 00:00:00 [facility] Influenza High Dose 2019-04-11 Completed Unive rsity of 00:00:00 [facility] Influenza High Dose 2019-04-11 Completed Unive rsity of 00:00:00 [facility] Influenza High Dose 2019-04-11 Completed Unive rsity of 00:00:00 [facility] Influenza High Dose 2019-04-11 Completed Unive rsity of 00:00:00 [facility] Influenza High Dose 2019-04-11 Completed Unive rsity of 00:00:00 [facility] Influenza High Dose 2019-04-11 Completed Unive rsity of 00:00:00 [facility] Influenza High Dose 2019-04-11 Completed Unive rsity of 00:00:00 [facility] Influenza High Dose 2019-04-11 Completed Unive rsity of 00:00:00 [facility] Influenza High Dose 2019-04-11 Completed Unive rsity of 00:00:00 [facility] Influenza High Dose 2019-04-11 Completed Unive rsity of 00:00:00 [facility] Influenza High Dose 2019-04-11 Completed Unive rsity of 00:00:00 [facility] Influenza High Dose 2019-04-11 Completed Unive rsity of 00:00:00 [facility] Influenza High Dose 2019-04-11 Completed Unive rsity of 00:00:00 [facility] Influenza High Dose 2019-04-11 Completed Unive rsity of 00:00:00 [facility] Influenza High Dose 2019-04-11 Completed Unive rsity of 00:00:00 [facility] Influenza High Dose 2019-04-11 Completed Unive rsity of 00:00:00 [facility] Influenza High Dose 2019-04-11 Completed Unive rsity of 00:00:00 [facility] Influenza High Dose 2019-04-11 Completed Unive rsity of 00:00:00 [facility] Influenza High Dose 2019-04-11 Completed Unive rsity of 00:00:00 [facility] Influenza High Dose 2019-04-11 Completed Unive rsity of 00:00:00 [facility] Influenza High Dose 2019-04-11 Completed Unive rsity of 00:00:00 [facility] Influenza High Dose 2019-04-11 Completed Unive rsity of 00:00:00 [facility] Influenza High Dose 2019-04-11 Completed Unive rsity of 00:00:00 [facility] Influenza High Dose 2019-04-11 Completed Unive rsity of 00:00:00 [facility] Influenza High Dose 2019-04-11 Completed Unive rsity of 00:00:00 [facility] Influenza High Dose 2019-04-11 Completed Unive rsity of 00:00:00 [facility] Influenza High Dose 2019-04-11 Completed Unive rsity of 00:00:00 [facility] Influenza High Dose 2019-04-11 Completed Unive rsity of 00:00:00 [facility] Influenza High Dose 2019-04-11 Completed Unive rsity of 00:00:00 [facility] Influenza High Dose 2019-04-11 Completed Unive rsity of 00:00:00 [facility] Influenza High Dose 2018-03-01 Completed Unive rsity of 00:00:00 [place] [facility] Influenza High Dose 2018-03-01 Completed Unive rsity of 00:00:00 [place] [facility] Influenza High Dose 2018-03-01 Completed Unive rsity of 00:00:00 [place] [facility] Influenza High Dose 2018-03-01 Completed Unive rsity of 00:00:00 [facility] Influenza High Dose 2018-03-01 Completed Unive rsity of 00:00:00 [facility] Influenza High Dose 2018-03-01 Completed [facility] 00:00:00 [facility] Influenza High Dose 2018-03-01 Completed [facility] 00:00:00 [facility] Influenza High Dose 2018-03-01 Completed [facility] 00:00:00 [facility] Influenza High Dose 2018-03-01 Completed [facility] 00:00:00 [facility] Influenza High Dose 2018-03-01 Completed [facility] 00:00:00 [facility] Influenza High Dose 2018-03-01 Completed [facility] 00:00:00 [facility] Influenza High Dose 2018-03-01 Completed [facility] 00:00:00 [facility] Influenza High Dose 2018-03-01 Completed [facility] of 00:00:00 [facility] Influenza High Dose 2018-03-01 Completed [facility] 00:00:00 [facility] Influenza High Dose 2018-03-01 Completed [facility] 00:00:00 [facility] Influenza High Dose 2018-03-01 Completed [facility] 00:00:00 [facility] Influenza High Dose 2018-03-01 Completed [facility] of 00:00:00 [facility] Influenza High Dose 2018-03-01 Completed [facility] of 00:00:00 [facility] Influenza High Dose 2018-03-01 Completed [facility] of 00:00:00 [facility] Influenza High Dose 2018-03-01 Completed [facility] 00:00:00 [facility] Influenza High Dose 2018-03-01 Completed [facility] 00[facility]00:00 [facility] Influenza High Dose 2018-03-01 Completed [facility] 00:00:00 [facility] Influenza High Dose 2018-03-01 Completed [facility] 00:00:00 [facility] Influenza High Dose 2018-03-01 Completed [facility] 00:00:00 [facility] Influenza High Dose 2018-03-01 Completed [facility] 00:00:00 [facility] Influenza High Dose 2018-03-01 Completed [facility] 00:00:00 [facility] Influenza High Dose 2018-03-01 Completed [facility] 00:00:00 [facility] Influenza High Dose 2018-03-01 Completed [facility] 00:00:00 [facility] Influenza High Dose 2018-03-01 Completed [facility] 00:00:00 [facility] Influenza High Dose 2018-03-01 Completed [facility] 00:00:00 [facility] Influenza High Dose 2018-03-01 Completed [facility] 00:00:00 [facility] Influenza High Dose 2018-03-01 Completed [facility] 00:00:00 [facility] Influenza High Dose 2018-03-01 Completed [facility] 00:00:00 [facility] Influenza High Dose 2018-03-01 Completed [facility] 00:00:00 [facility] Influenza High Dose 2018-03-01 Completed [facility] 00:00:00 [facility] Influenza High Dose 2018-03-01 Completed [facility] 00:00:00 [facility] Influenza High Dose 2018-03-01 Completed [facility] 00:00:00 [facility] Influenza High Dose 2018-03-01 Completed [facility] 00:00:00 [facility] Influenza High Dose 2018-03-01 Completed [facility] 00:00:00 [facility] Influenza High Dose 2018-03-01 Completed [facility] 00:00:00 [facility] Influenza High Dose 2018-03-01 Completed [facility] 00:00:00 [facility] Influenza High Dose 2018-03-01 Completed [facility] 00:00:00 [facility] Influenza High Dose 2018-03-01 Completed [facility] 00:00:00 [facility] Influenza High Dose 2018-03-01 Completed [facility] 00:00:00 [facility] Influenza High Dose 2018-03-01 Completed [facility] 00:00:00 [facility] Influenza High Dose 2018-03-01 Completed [facility] 00:00:00 [facility] Influenza High Dose 2018-03-01 Completed [facility] 00:00:00 [facility] Influenza High Dose 2018-03-01 Completed [facility] 00:00:00 [facility] Influenza High Dose 2018-03-01 Completed [facility] 00:00:00 [facility] Influenza High Dose 2018-03-01 Completed [facility] 00:00:00 [facility] Influenza High Dose 2018-03-01 Completed [facility] 00:00:00 [facility] Influenza High Dose 2018-03-01 Completed [facility] 00:00:00 [facility] Influenza High Dose 2018-03-01 Completed [facility] 00:00:00 [facility] Influenza High Dose 2018-03-01 Completed [facility] 00:00:00 [facility] Influenza High Dose 2018-03-01 Completed [facility] 00:00:00 [facility] Influenza High Dose 2018-03-01 Completed [facility] 00:00:00 [facility] Influenza High Dose 2018-03-01 Completed [facility] 00:00:00 [facility] Influenza High Dose 2018-03-01 Completed [facility] 00:00:00 [facility] Influenza High Dose 2018-03-01 Completed [facility] 00:00:00 [facility] Influenza High Dose 2018-03-01 Completed [facility] 00:00:00 [facility] Influenza High Dose 2018-03-01 Completed [facility] 00:00:00 [facility] Influenza High Dose 2018-03-01 Completed [facility] 00:00:00 [facility] Influenza High Dose 2018-03-01 Completed [facility] 00:00:00 [facility] Influenza High Dose 2018-03-01 Completed [facility] 00:00:00 [facility] Influenza High Dose 2018-03-01 Completed [facility] 00:00:00 [facility] Influenza High Dose 2018-03-01 Completed [facility] 00:00:00 [facility] Influenza High Dose 2018-03-01 Completed [facility] 00:00:00 [facility] Influenza High Dose 2018-03-01 Completed [facility] 00:00:00 [facility] Influenza High Dose 2018-03-01 Completed [facility] 00:00:00 [facility] Influenza High Dose 2018-03-01 Completed [facility] 00:00:00 [facility] Influenza High Dose 2018-03-01 Completed [facility] 00:00:00 [facility] Influenza High Dose 2018-03-01 Completed [facility] 00:00:00 [facility] Influenza High Dose 2018-03-01 Completed [facility] 00:00:00 [facility] Influenza High Dose 2018-03-01 Completed [facility] 00:00:00 [facility] Influenza High Dose 2018-03-01 Completed [facility] 00:00:00 [facility] Influenza Virus 2017-03-21 Completed [facility]it [facility] of Vaccine 00:00:00 [facility] Influenza Virus 2017-03-21 Completed [facility] of Vaccine 00:00:00 [facility] Influenza Virus 2017-03-21 Completed [facility] y of Vaccine 00:00:00 [facility] Influenza Virus 2017-03-21 Completed [facility] of Vaccine 00:00:00 [facility] Influenza Virus 2017-03-21 Completed [facility] of Vaccine 00:00:00 [facility] Influenza Virus 2017-03-21 Completed [facility] of Vaccine 00:00:00 [facility] Influenza Virus 2017-03-21 Completed [facility] y of Vaccine 00:00:00 [facility] Influenza Virus 2017-03-21 Completed [facility] y of Vaccine 00:00:00 [facility] Influenza Virus 2017-03-21 Completed [facility] y of Vaccine 00:00:00 [facility] Influenza Virus 2017-03-21 Completed [facility] y of Vaccine 00:00:00 [facility] Influenza Virus 2017-03-21 Completed [facility] y of Vaccine 00:00:00 [facility] Influenza Virus 2017-03-21 Completed [facility] y of Vaccine 00:00:00 [facility] Influenza Virus 2017-03-21 Completed [facility] y of Vaccine 00:00:00 [facility] Influenza Virus 2017-03-21 Completed [facility] y of Vaccine 00:00:00 [facility] Influenza Virus 2017-03-21 Completed [facility] y of Vaccine 00:00:00 [facility] Influenza Virus 2017-03-21 Completed [facility] y of Vaccine 00:00:00 [facility] Influenza Virus 2017-03-21 Completed [facility] y of Vaccine 00:00:00 [facility] Influenza Virus 2017-03-21 Completed [facility] y of Vaccine 00:00:00 [facility] Influenza Virus 2017-03-21 Completed [facility] y of Vaccine 00:00:00 [facility] Influenza Virus 2017-03-21 Completed [facility] y of Vaccine 00:00:00 [facility] Influenza Virus 2017-03-21 Completed [facility] of Vaccine 00:00:00 [facility] Influenza Virus 2017-03-21 Completed [facility] y of Vaccine 00:00:00 [facility] Influenza Virus 2017-03-21 Completed [facility] y of Vaccine 00:00:00 [facility] Influenza Virus 2017-03-21 Completed [facility] of Vaccine 00:00:00 [facility] Influenza Virus 2017-03-21 Completed [facility] of Vaccine 00:00:00 [facility] Influenza Virus 2017-03-21 Completed [facility] of Vaccine 00:00:00 [facility] Influenza Virus 2017-03-21 Completed [facility] of Vaccine 00:00:00 [facility] Influenza Virus 2017-03-21 Completed [facility] of Vaccine 00:00:00 [facility] Influenza Virus 2017-03-21 Completed [facility] y of Vaccine 00:00:00 [facility] Influenza Virus 2017-03-21 Completed [facility] y of Vaccine 00:00:00 [facility] Influenza Virus 2017-03-21 Completed [facility] of Vaccine 00:00:00 [facility] Influenza Virus 2017-03-21 Completed [facility] of Vaccine 00:00:00 [facility] Influenza Virus 2017-03-21 Completed [facility] of Vaccine 00:00:00 [facility] Influenza Virus 2017-03-21 Completed [facility] of Vaccine 00:00:00 [facility] Influenza Virus 2017-03-21 Completed [facility] of Vaccine 00:00:00 [facility] Influenza Virus 2017-03-21 Completed [facility] of Vaccine 00:00:00 [facility] Influenza Virus 2017-03-21 Completed [facility] of Vaccine 00:00:00 [facility] Influenza Virus 2017-03-21 Completed [facility] of Vaccine 00:00:00 [facility] Influenza Virus 2017-03-21 Completed [facility] of Vaccine 00:00:00 [facility] Influenza Virus 2017-03-21 Completed [facility] of Vaccine 00:00:00 [facility] Influenza Virus 2017-03-21 Completed [facility] Vaccine 00:00:00 [facility] Influenza Virus 2017-03-21 Completed [facility] Vaccine 00:00:00 [facility] Influenza Virus 2017-03-21 Completed [facility] of Vaccine 00:00:00 [facility] Influenza Virus 2017-03-21 Completed [facility] of Vaccine 00:00:00 [facility] Influenza Virus 2017-03-21 Completed [facility] of Vaccine 00:00:00 [facility] Influenza Virus 2017-03-21 Completed [facility] of Vaccine 00:00:00 [facility] Influenza Virus 2017-03-21 Completed [facility] Vaccine 00:00:00 [facility] Influenza Virus 2017-03-21 Completed [facility] Vaccine 00:00:00 [facility] Influenza Virus 2017-03-21 Completed [facility] Vaccine 00:00:00 [facility] Influenza Virus 2017-03-21 Completed [facility] of Vaccine 00:00:00 [facility] Influenza Virus 2017-03-21 Completed [facility] Vaccine 00:00:00 [facility] Influenza Virus 2017-03-21 Completed [facility] Vaccine 00:00:00 [facility] Influenza Virus 2017-03-21 Completed [facility] of Vaccine 00:00:00 [facility] Influenza Virus 2017-03-21 Completed [facility] of Vaccine 00:00:00 [facility] Influenza Virus 2017-03-21 Completed [facility] Vaccine 00:00:00 [facility] Influenza Virus 2017-03-21 Completed [facility] Vaccine 00:00:00 [facility] Influenza Virus 2017-03-21 Completed [facility] of Vaccine 00:00:00 [facility] Influenza Virus 2017-03-21 Completed [facility] of Vaccine 00:00:00 [facility] Influenza Virus 2017-03-21 Completed [facility] Vaccine 00:00:00 [facility] Influenza Virus 2017-03-21 Completed [facility] of Vaccine 00:00:00 [facility] Influenza Virus 2017-03-21 Completed [facility] Vaccine 00:00:00 [facility] Influenza Virus 2017-03-21 Completed [facility] Vaccine 00:00:00 [facility] Influenza Virus 2017-03-21 Completed [facility] Vaccine 00:00:00 [facility] Influenza Virus 2017-03-21 Completed [facility] Vaccine 00:00:00 [facility] Influenza Virus 2017-03-21 Completed [facility] of Vaccine 00:00:00 [facility] Influenza Virus 2017-03-21 Completed [facility] Vaccine 00:00:00 [facility] Influenza Virus 2017-03-21 Completed [facility] Vaccine 00:00:00 [facility] Influenza Virus 2017-03-21 Completed [facility] Vaccine 00:00:00 [facility] Influenza Virus 2017-03-21 Completed [facility] Vaccine 00:00:00 [facility] Influenza Virus 2017-03-21 Completed [facility] of Vaccine 00:00:00 [facility] Influenza Virus 2017-03-21 Completed [facility] Vaccine 00:00:00 [facility] Influenza Virus 2017-03-21 Completed [facility] of Vaccine 00:00:00 [facility] Influenza Virus 2017-03-21 Completed [facility] of Vaccine 00:00:00 [facility] Influenza Virus 2017-03-21 Completed [facility] of Vaccine 00:00:00 [facility] Influenza Virus 2017-03-21 Completed [facility] y of Vaccine 00:00:00 [facility] TDAP 2015-10-03 Completed [facility] of 00:00:00 [facility] TDAP 2015-10-03 Completed University of 00:00:00 [facility] TDAP 2015-10-03 Completed University of 00:00:00 [facility] TDAP 2015-10-03 Completed [facility] 00:00:00 [facility] TDAP 2015-10-03 Completed University of 00:00:00 [facility] TDAP 2015-10-03 Completed University of 00:00:00 [facility] TDAP 2015-10-03 Completed [facility] of 00:00:00 [facility] TDAP 2015-10-03 Completed [facility] of 00:00:00 [facility] TDAP 2015-10-03 Completed [facility] 00:00:00 [facility] TDAP 2015-10-03 Completed [facility] of 00:00:00 [facility] TDAP 2015-10-03 Completed [facility] of 00:00:00 [facility] TDAP 2015-10-03 Completed [facility] of 00:00:00 [facility] TDAP 2015-10-03 Completed [facility] of 00:00:00 [facility] TDAP 2015-10-03 Completed [facility] of 00:00:00 [facility] TDAP 2015-10-03 Completed [facility] of 00:00:00 [facility] TDAP 2015-10-03 Completed [facility] 00:00:00 [facility] TDAP 2015-10-03 Completed [facility] 00:00:00 [facility] TDAP 2015-10-03 Completed [facility] 00:00:00 [facility] TDAP 2015-10-03 Completed [facility] 00:00:00 [facility] TDAP 2015-10-03 Completed [facility] of 00:00:00 [facility] TDAP 2015-10-03 Completed [facility] 00:00:00 [facility] TDAP 2015-10-03 Completed [facility] of 00:00:00 [facility] TDAP 2015-10-03 Completed [facility] of 00:00:00 [facility] TDAP 2015-10-03 Completed [facility] 00:00:00 [facility] TDAP 2015-10-03 Completed [facility] of 00:00:00 [facility] TDAP 2015-10-03 Completed [facility] of 00:00:00 [facility] TDAP 2015-10-03 Completed [facility] 00:00:00 [facility] TDAP 2015-10-03 Completed [facility] of 00:00:00 [facility] TDAP 2015-10-03 Completed [facility] of 00:00:00 [facility] TDAP 2015-10-03 Completed [facility] of 00:00:00 [facility] TDAP 2015-10-03 Completed [facility] of 00:00:00 [facility] TDAP 2015-10-03 Completed [facility] of 00:00:00 [facility] TDAP 2015-10-03 Completed [facility] 00:00:00 [facility] TDAP 2015-10-03 Completed [facility] 00:00:00 [facility] TDAP 2015-10-03 Completed [facility] 00:00:00 [facility] TDAP 2015-10-03 Completed [facility] 00:00:00 [facility] TDAP 2015-10-03 Completed [facility] 00:00:00 [facility] TDAP 2015-10-03 Completed [facility] of 00:00:00 [facility] TDAP 2015-10-03 Completed [facility] 00:00:00 [facility] TDAP 2015-10-03 Completed [facility] 00:00:00 [facility] TDAP 2015-10-03 Completed [facility] 00:00:00 [facility] TDAP 2015-10-03 Completed [facility] 00:00:00 [facility] TDAP 2015-10-03 Completed [facility] 00:00:00 [facility] TDAP 2015-10-03 Completed [facility] 00:00:00 [facility] TDAP 2015-10-03 Completed [facility] 00:00:00 [facility] TDAP 2015-10-03 Completed [facility] 00:00:00 [facility] TDAP 2015-10-03 Completed [facility] 00:00:00 [facility] TDAP 2015-10-03 Completed [facility] 00:00:00 [facility] TDAP 2015-10-03 Completed [facility] 00:00:00 [facility] TDAP 2015-10-03 Completed [facility] 00:00:00 [facility] TDAP 2015-10-03 Completed [facility] 00:00:00 [facility] TDAP 2015-10-03 Completed [facility] 00:00:00 [facility] TDAP 2015-10-03 Completed [facility] 00:00:00 [facility] TDAP 2015-10-03 Completed [facility] 00:00:00 [facility] TDAP 2015-10-03 Completed [facility] 00:00:00 [facility] TDAP 2015-10-03 Completed [facility] 00:00:00 [facility] TDAP 2015-10-03 Completed [facility] 00:00:00 [facility] TDAP 2015-10-03 Completed [facility] 00:00:00 [facility] TDAP 2015-10-03 Completed [facility] 00:00:00 [facility] TDAP 2015-10-03 Completed [facility] 00:00:00 [facility] TDAP 2015-10-03 Completed [facility] 00:00:00 [facility] TDAP 2015-10-03 Completed [facility] 00:00:00 [facility] TDAP 2015-10-03 Completed [facility] 00:00:00 [facility] TDAP 2015-10-03 Completed [facility] 00:00:00 [facility] TDAP 2015-10-03 Completed [facility] 00:00:00 [facility] TDAP 2015-10-03 Completed [facility] 00:00:00 [facility] TDAP 2015-10-03 Completed [facility] 00:00:00 [facility] TDAP 2015-10-03 Completed [facility] 00:00:00 [facility] TDAP 2015-10-03 Completed [facility] 00:00:00 [facility] TDAP 2015-10-03 Completed [facility] 00:00:00 [facility] TDAP 2015-10-03 Completed [facility] 00:00:00 [facility] TDAP 2015-10-03 Completed [facility] 00:00:00 [facility] TDAP 2015-10-03 Completed [facility] 00:00:00 [facility] TDAP 2015-10-03 Completed [facility] 00:00:00 [facility] TDAP 2015-10-03 Completed [facility] 00:00:00 [facility] Pneumococcal 13 2012-12-07 Completed [facility] [...] 00:00:00 [facility] PPSV23 (PNEUMOVAX) [facility] Influenza High Dose Unknown Completed [facility] Influenza High D[facility] Unknown [facility] TDAP Unknown Completed [facility] Pneumococcal Unknown Completed University o f Polysaccharide, [facility] PPSV23 (PNEUMOVAX) [facility] Influenza High Dose Unknown Completed [facility] of [facility] Pneumococcal 13 Unknown Completed Universit y of Conjugate, PCV13 [facility] dical (Prevnar 13) Branch Influenza High Dose Unknown [facility] High Dose Unknown Completed [facility] Influenza Virus Unknown Completed [facility] TDAP Unknown Completed [facility] Pneumococcal Unknown Completed [facility] f Polysaccharide, [facility] PPSV23 (PNEUMOVAX) [facility] Influenza High Dose Unknown Completed [facility] Pneumococcal 13 Unknown Completed Universit [facility] of Conjugate, PCV13 [facility] dical (Prevnar 13) Branch Influenza High Dose Unknown Completed [facility] Influenza High Dose Unknown [facility] Virus Unknown Completed [facility] TDAP Unknown Completed [facility] Pneumococcal Unknown Completed [facility] f Polysaccharide, [facility] PPSV23 (PNEUMOVAX) Branch Influenza High Dose Unknown Completed [facility] Pneumococcal 13 Unknown Completed Universit y of Conjugate, PCV13 [facility] dical (Prevnar 13) Branch Influenza High Dose Unknown Completed [facility]ity [facility] Influenza High Dose Unknown Completed [facility] Influenza Virus Unknown Completed [facility] TDAP Unknown Completed [facility] Pneumococcal Unknown Completed [facility] f Polysaccharide, [facility] PPSV23 (PNEUMOVAX) [facility] Influenza High Dose Unknown Completed [facility] Pneumococcal 13 Unknown Completed [facility] Conjugate, PCV13 [place] [facility] (Prevnar 13) [facility] Influenza High Dose Unknown Completed [facility] Influenza High Dose Unknown Completed [facility] Influenza Virus Unknown Completed [facility] y of Vaccine [facility] TDAP Unknown Completed [facility] Pneumococcal Unknown Completed [facility] o f Polysaccharide, [facility] PPSV23 (PNEUMOVAX) [facility] Influenza High Dose Unknown Completed [facility] Pneumococcal 13 Unknown Completed [facility] Conjugate, PCV13 [facility] (Prevnar 13) [facility] Influenza High Dose Unknown Completed [facility] Influenza High Dose Unknown Completed [facility] Influenza Virus Unknown Completed [facility] TDAP Unknown [facility]pleted [facility] Pneumococcal Unknown Completed [facility] f Polysaccharide, [facility] PPSV23 (PNEUMOVAX) Branch Influenza High Dose Unknown Completed [facility] Pneumococcal 13 Unknown Completed [facility] Conjugate, PCV13 [facility] (Prevnar 13) [facility] Influenza High Dose Unknown Completed [facility] Influenza High Dose Unknown Completed [facility] Influenza Virus Unknown Completed [facility] TDAP Unknown [facility]pleted [facility] Pneumococcal Unknown Completed [facility] f Polysaccharide, [facility] PPSV23 (PNEUMOVAX) Branch Influenza High Dose Unknown Completed [facility] Pneumococcal 13 Unknown Completed [facility] Conjugate, PCV13 [facility] (Prevnar 13) [facility] Influenza High Dose Unknown Completed [facility] Influenza High Dose Unknown Completed [facility] Influenza Virus Unknown Completed [facility] y of Vaccine [facility] TDAP Unknown Completed [facility] Pneumococcal Unknown Completed [facility] Polysaccharide[facility] PPSV23 (PNEUMOVAX) Branch Influenza High Dose Unknown Completed Unive rsity of [facility] Pneumococcal 13 Unknown Completed Universit y of Conjugate, PCV13 [place] [facility] (Prevnar 13) Branch Influenza High Dose Unknown Completed Unive rsity of [facility] Influenza High Dose Unknown Completed Unive [facility]ity of [facility] Influenza Virus Unknown Completed Universit y of [facility] TDAP Unknown Completed [facility] Pneumococcal Unknown Completed University o f Polysaccharide, [place] [facility] PPSV23 (PNEUMOVAX) Branch Influenza High Dose Unknown Completed Unive rsity of [facility] Pneumococcal 13 Unknown Completed Universit y of Conjugate, PCV13 [place] [facility] (Prevnar 13) Branch Influenza High Dose Unknown Completed Unive rsity of [facility] Influenza High Dose Unknown Completed Unive [facility]ity of [facility] Influenza Virus Unknown Completed Universit y of [facility] TDAP Unknown Completed [facility] Pneumococcal Unknown Completed University o f Polysaccharide, [place] [facility] PPSV23 (PNEUMOVAX) Branch Influenza High Dose Unknown Completed Unive rsity of [facility] Pneumococcal 13 Unknown Completed Universit y of Conjugate, PCV13 [place] [facility] (Prevnar 13) Branch Influenza High Dose Unknown Completed Unive rsity of [facility] Influenza High Dose Unknown Completed Unive [facility] of [facility] Influenza Virus Unknown Completed Universit y of [facility] TDAP Unknown Completed [facility] Pneumococcal Unknown Completed University o f Polysaccharide, [place] [facility] PPSV23 (PNEUMOVAX) Branch Influenza High Dose Unknown Completed Unive rsity of [facility] Pneumococcal 13 Unknown Completed Universit y of Conjugate, PCV13 [facility] dical (Prevnar 13) Branch Influenza High Dose Unknown Completed Unive rsity of [facility] Influenza High Dose Unknown Completed [facility]ive rsity of [facility] Influenza Virus Unknown Completed Universit y of [facility] TDAP Unknown Completed [facility] Pneumococcal Unknown Completed University o f Polysaccharide, [place] [facility] PPSV23 (PNEUMOVAX) Branch Influenza High Dose Unknown Completed Unive rsity of [facility] Pneumococcal 13 Unknown Completed Universit y of Conjugate, PCV13 [place] [facility] (Prevnar 13) Branch Influenza High Dose Unknown Completed [facility] rsity of [facility] Influenza High Dose Unknown Completed [facility] of [facility] Influenza Virus Unknown Completed Universit y of [facility] TDAP Unknown Completed [facility] Pneumococcal Unknown Completed University o f Polysaccharide, [place] [facility] PPSV23 (PNEUMOVAX) Branch Influenza High Dose Unknown Completed Unive rsity of [facility] Pneumococcal 13 Unknown Completed Universit y of Conjugate, PCV13 [place] [facility] (Prevnar 13) Branch Influenza High Dose Unknown Completed [facility]ive rsity of [facility] Influenza High Dose Unknown Completed [facility] of [facility] Influenza Virus Unknown Completed Universit y of Vaccine [facility] TDAP Unknown Completed [facility] Pneumococcal Unknown Completed University o f Polysaccharide, [place] [facility] PPSV23 (PNEUMOVAX) Branch Influenza High Dose Unknown Completed Unive rsity of [facility] Pneumococcal 13 Unknown Completed Universit y of Conjugate, PCV13 [place] [facility] (Prevnar 13) Branch Influenza High Dose Unknown Completed Unive rsity [facility] Influenza High Dose Unknown Completed Unive rsity of [facility] Influenza Virus Unknown Completed Universit y of Vaccine [facility] TDAP Unknown Completed [facility] Pneumococcal Unknown Completed University o f Polysaccharide, [place] [facility] PPSV23 (PNEUMOVAX) Branch Influenza High Dose Unknown Completed Unive rsity of [facility] Pneumococcal 13 Unknown Completed Universit y of Conjugate, PCV13 [facility] dical (Prevnar 13) Branch Influenza High Dose Unknown Completed Unive rsity [facility] Influenza High Dose Unknown Completed Unive rsity [facility] Influenza Virus Unknown Completed Universit y of Vaccine [facility] TDAP Unknown Completed [facility] Pneumococcal Unknown Completed University o f Polysaccharide, [place] [facility] PPSV23 (PNEUMOVAX) Branch Influenza High Dose Unknown Completed Unive rsity of [facility] Pneumococcal 13 Unknown Completed Universit y of Conjugate, PCV13 [facility] dical (Prevnar 13) Branch Influenza High Dose Unknown Completed Unive rsity [facility] Influenza High Dose Unknown Completed Unive rsity [facility] Influenza Virus Unknown Completed Universit y of [facility] TDAP Unknown Completed [facility] Pneumococcal Unknown Completed University o f Polysaccharide, [place] [facility] PPSV23 (PNEUMOVAX) Branch Influenza High Dose Unknown Completed Unive rsity of [facility] Pneumococcal 13 Unknown Completed Universit y of Conjugate, PCV13 [facility] dical (Prevnar 13) Branch Vital Signs Vital Name Observation Time Observation Value Comments Source Systolic blood 2023-04-08 15:52:00 137 mm[Hg] Univer sity of [facility] Diastolic blood 2023-04-08 15:52:00 83 mm[facility]Hg[facility] 2023-04-08 15:52:00 91 /min [facility] Body temperature 2023-04-08 15:52:00 36.67 Felicia [facility] Respiratory rate 2023-04-08 15:52:00 18 /min Univ ers[facility] Body height 2023-04-08 15:52:00 177.8 cm [facility] Body weight 2023-04-08 15:52:00 83.915 kg [facility] BMI 2023-04-08 15:52:00 26.54 kg/m2 [facility] [place] [facility] Oxygen saturation in 2023-04-08 15:52:00 96 /min University of Arterial blood by [place] [facility] monika Pulse oximetry Branch Systolic blood 2023-03-31 16:05:00 129 mm[Hg] Univer sity of pressure [place] [facility] Diastolic blood 2023-03-31 16:05:00 79 mm[Hg] Unive rsity of pressure [place] [facility] Heart rate 2023-03-31 16:05:00 99 /min [facility] Body temperature 2023-03-31 16:05:00 36.5 Felicia Univ ers[facility] [place] [facility] Respiratory rate 2023-03-31 16:05:00 18 /min Univ ers[facility] [place] [facility] Body height 2023-03-31 16:05:00 177.8 cm [facility] Body weight 2023-03-31 16:05:00 84.369 kg [facility] [place] [facility] BMI 2023-03-31 16:05:00 26.69 kg/m2 [facility] [place] [facility] Oxygen saturation in 2023-03-31 16:05:00 99 /min University of Arterial blood by [place] [facility] Pulse oximetry Branch Systolic blood 2023-03-18 14:24:00 130 mm[Hg] Univer sity of pressure [place] [facility] Diastolic blood 2023-03-18 14:24:00 75 mm[Hg] Unive rsity of pressure [facility] Heart rate 2023-03-18 14:24:00 68 /min [facility] [place] [facility] Body temperature 2023-03-18 14:24:00 36.44 Felicia Univ [facility] [place] [facility] Respiratory rate 2023-03-18 14:24:00 16 /min [facility] Body height 2023-03-18 14:24:00 177.8 cm [facility] Body weight 2023-03-18 14:24:00 83.462 kg [facility] BMI 2023-03-18 14:24:00 26.40 kg/m2 [facility] [place] [facility] Oxygen saturation in 2023-03-18 14:24:00 95 /min [facility] Arterial blood by [place] [facility] Pulse oximetry Branch Systolic blood 2023-03-10 18:53:00 136 mm[Hg] Univer sity of pressure [place] [facility] Diastolic blood 2023-03-10 18:53:00 77 mm[Hg] Unive rsity of pressure [place] [facility] Heart rate 2023-03-10 18:53:00 81 /min [facility] [place] [facility] Respiratory rate 2023-03-10 18:53:00 19 /min Univ ers[facility] [place] [facility] Body height 2023-03-10 18:53:00 180.3 cm [facility] Body weight 2023-03-10 18:53:00 87.091 kg [facility] BMI 2023-03-10 18:53:00 26.78 kg/m2 [facility] Oxygen saturation in 2023-03-10 18:53:00 97 /min [facility] Arterial blood by [place] [facility] P[facility] oxim[facility] Branch Systolic blood 2023-02-15 14:22:00 146 mm[Hg] Univer sity of pressure [place] [facility] Diastolic blood 2023-02-15 14:22:00 77 mm[Hg] Unive rsity of pressure [place] [facility] Heart rate 2023-02-15 14:22:00 79 /min [facility] [place] [facility] Respiratory rate 2023-02-15 14:22:00 16 /min Univ ers[facility] [place] [facility] Body height 2023-02-15 14:22:00 177.8 cm [facility] [place] [facility] Body weight 2023-02-15 14:22:00 85.049 kg [facility] [place] [facility] BMI 2023-02-15 14:22:00 26.90 kg/m2 [facility] [place] [facility] Oxygen saturation in 2023-02-15 14:22:00 98 /min University of Arterial blood by [facility] monika Pulse oximetry Branch Systolic blood 2023-02-08 20:42:00 142 mm[Hg] Univer sity of [facility] [place] [facility] Diastolic blood 2023-02-08 20:42:00 93 mm[Hg] Unive rsity of pressure [place] [facility] Heart rate 2023-02-08 20:42:00 78 /min [facility] [place] [facility] Body temperature 2023-02-08 20:42:00 36.5 Felicia [facility] [place] [facility] Respiratory rate 2023-02-08 20:42:00 16 /min [facility] [place] [facility] Body height 2023-02-08 20:42:00 177.8 cm [facility] [place] [facility] Body weight 2023-02-08 20:42:00 86.183 kg [facility] [place] [facility] BMI 2023-02-08 20:42:00 27.26 kg/m2 [facility] [place] [facility] Oxygen saturation in 2023-02-08 20:42:00 99 /min University of Arterial blood by [facility] Pulse oximetry Branch Systolic blood 2023-01-29 20:54:00 132 mm[Hg] Univer sity of pressure [place] [facility] Diastolic blood 2023-01-29 20:54:00 76 mm[Hg] Unive rsity of pressure [place] [facility] Heart rate 2023-01-29 20:54:00 78 /min [facility] Respiratory rate 2023-01-29 20:54:00 18 /min Univ ers[facility] [place] [facility] Body height 2023-01-29 20:54:00 177.8 cm [facility] [place] [facility] Body weight 2023-01-29 20:54:00 86.501 kg [facility] [place] [facility] BMI 2023-01-29 20:54:00 27.36 kg/m2 [facility] [place] [facility] Oxygen saturation in 2023-01-29 20:54:00 98 /min [facility] of Arterial blood by [facility] Pulse oximetry Branch Systolic blood 2023-01-05 18:43:00 135 mm[Hg] Univer sity of pressure [place] [facility] Diastolic blood 2023-01-05 18:43:00 79 mm[Hg] Unive rsity of pressure [place] [facility] Heart rate 2023-01-05 18:43:00 77 /min [facility] [place] [facility] Body height 2023-01-05 18:43:00 177.8 cm [facility] [place] [facility] Body weight 2023-01-05 18:43:00 85.684 kg [facility] [place] [facility] BMI 2023-01-05 18:43:00 27.10 kg/m2 [facility] [place] [facility] Oxygen saturation in 2023-01-05 18:43:00 96 /min [facility] Arterial blood by [place] [facility] Pulse oximetry Branch Systolic blood 2022-12-26 16:50:00 111 mm[Hg] Univer sity of pressure [place] [facility] Diastolic blood 2022-12-26 16:50:00 63 mm[Hg] Unive rsity of pressure [place] [facility] Heart rate 2022-12-26 16:50:00 89 /min [facility] [place] [facility] Body temperature 2022-12-26 16:50:00 36.61 Felicia [facility] [place] [facility] Respiratory rate 2022-12-26 16:50:00 17 /min [facility] [place] [facility] Body weight 2022-12-26 16:50:00 84.687 kg [facility] [place] [facility] BMI 2022-12-26 16:50:00 26.79 kg/m2 [facility] [place] [facility] Oxygen saturation in 2022-12-26 16:50:00 99 /min [facility] of Arterial blood by [place] [facility] Pulse oximetry Branch Systolic blood 2022-11-26 20:06:00 137 mm[Hg] Univer sity of pressure [place] [facility] Diastolic blood 2022-11-26 20:06:00 89 mm[Hg] Unive rsity of pressure [place] [facility] Heart rate 2022-11-26 20:06:00 88 /min [facility] [place] [facility] Body height 2022-11-26 20:06:00 177.8 cm [facility] [place] [facility] Body weight 2022-11-26 20:06:00 84.777 kg [facility] [place] [facility] BMI 2022-11-26 20:06:00 26.82 kg/m2 [facility] [place] [facility] Oxygen saturation in 2022-11-26 20:06:00 96 /min [facility] Arterial blood by [place] [facility] Pulse oximetry Branch Systolic blood 2022-09-17 15:58:00 129 mm[Hg] Univer sity of [facility] Diastolic blood 2022-09-17 15:58:00 69 mm[Hg] Unive rsity of pressure [place] [facility] Heart rate 2022-09-17 15:58:00 84 /min [facility] [place] [facility] Body height 2022-09-17 15:58:00 177.8 cm [facility] [place] [facility] Body weight 2022-09-17 15:58:00 85.186 kg [facility] [place] [facility] BMI 2022-09-17 15:58:00 26.95 kg/m2 [facility] [place] [facility] Oxygen saturation in 2022-09-17 15:58:00 95 /min [facility] Arterial blood by [place] [facility] Pulse oximetry Branch Systolic blood 2022-07-27 17:40:00 120 mm[Hg] Univer sity of pressure [place] [facility] Diastolic blood 2022-07-27 17:40:00 71 mm[Hg] Unive rsity of pressure [place] [facility] Heart rate 2022-07-27 17:40:00 83 /min [facility] Respiratory rate 2022-07-27 17:40:00 19 /min Univ ers[facility] Oxygen saturation in 2022-07-27 17:40:00 97 /min [facility] Arterial blood by [place] [facility] Pulse oxim[facility] Branch Body temperature 2022-07-27 14:43:00 37.61 Felicia Univ [facility] [place] [facility] Body weight 2022-07-27 14:43:00 83.915 kg [facility] BMI 2022-07-27 14:43:00 26.54 kg/m2 [facility] [place] [facility] Systolic blood 2022-06-18 17:46:00 148 mm[Hg] Univer sity of pressure [place] [facility] Diastolic blood 2022-06-18 17:46:00 60 mm[Hg] Unive rsity of pressure [place] [facility] Respiratory rate 2022-06-18 17:46:00 20 /min Univ [facility] Oxygen saturation in 2022-06-18 17:46:00 98 /min [facility] of Arterial blood by [place] [facility] Pulse oxim[facility] Branch Body weight 2022-06-18 13:00:00 83.915 kg [facility] BMI 2022-06-18 13:00:00 26.54 kg/m2 [facility] [place] [facility] Systolic blood 2022-06-18 16:55:00 121 mm[Hg] Univer sity of pressure [place] [facility] Diastolic blood 2022-06-18 16:55:00 58 mm[Hg] Unive rsity of pressure [place] [facility] Respiratory rate 2022-06-18 16:55:00 16 /min Univ ers[facility] [place] [facility] Oxygen saturation in 2022-06-18 16:55:00 98 /min [facility] Arterial blood by [place] [facility] Pulse oxim[facility] Branch Body weight 2022-06-18 13:00:00 83.915 kg [facility] [place] [facility] BMI 2022-06-18 13:00:00 26.54 kg/m2 [facility] [place] [facility] Systolic blood 2022-06-01 16:58:00 126 mm[Hg] Univer sity of pressure [place] [facility] Diastolic blood 2022-06-01 16:58:00 99 mm[Hg] Unive rsity of pressure [place] [facility] Heart rate 2022-06-01 16:58:00 71 /min [facility] [place] [facility] Body temperature 2022-06-01 16:58:00 36.78 Felicia [facility] [place] [facility] Respiratory rate 2022-06-01 16:58:00 20 /min [facility] [place] [facility] Body weight 2022-06-01 16:58:00 83.915 kg [facility] [place] [facility] BMI 2022-06-01 16:58:00 26.54 kg/m2 [facility] [place] [facility] Oxygen saturation in 2022-06-01 16:58:00 99 /min [facility] Arterial blood by [place] [facility] Pulse oximetry Branch Systolic blood 2022-05-19 22:18:00 129 mm[Hg] Univer sity of pressure [place] [facility] Diastolic blood 2022-05-19 22:18:00 74 mm[Hg] Unive rsity of pressure [place] [facility] Heart rate 2022-05-19 22:18:00 76 /min [facility] [place] [facility] Body temperature 2022-05-19 22:18:00 36.89 Felicia [facility] [place] [facility] Respiratory rate 2022-05-19 22:18:00 18 /min [facility] [place] [facility] Body height 2022-05-19 22:18:00 177.8 cm [facility] [place] [facility] Body weight 2022-05-19 22:18:00 84.732 kg [facility] [place] [facility] BMI 2022-05-19 22:18:00 26.80 kg/m2 [facility] [place] [facility] Oxygen saturation in 2022-05-19 22:18:00 98 /min University of Arterial blood by [facility] monika Pulse oximetry Branch Systolic blood 2022-03-30 18:13:00 135 mm[Hg] Univer sity of pressure [place] [facility] Diastolic blood 2022-03-30 18:13:00 67 mm[Hg] Unive rsity of pressure [place] [facility] Heart rate 2022-03-30 18:11:00 66 /min [facility] [place] [facility] Body temperature 2022-03-30 18:11:00 36.56 Felicia [facility] [place] [facility] Respiratory rate 2022-03-30 18:11:00 18 /min [facility] [place] [facility] Body height 2022-03-30 18:11:00 177.8 cm [facility] [place] [facility] Body weight 2022-03-30 18:11:00 86.818 kg [facility] [place] [facility] BMI 2022-03-30 18:11:00 27.46 kg/m2 [facility] [place] [facility] Oxygen saturation in 2022-03-30 18:11:00 98 /min [facility] of Arterial blood by [place] [facility] P[facility] oxim[facility] Branch Body weight 2022-03-18 15:50:00 86.682 kg [facility] [place] [facility] BMI 2022-03-18 15:50:00 27.42 kg/m2 [facility] [place] [facility] Body weight 2022-02-25 19:14:00 85.276 kg [facility] [place] [facility] BMI 2022-02-25 19:14:00 26.98 kg/m2 [facility] [place] [facility] Systolic blood 2022-02-02 13:30:00 132 mm[Hg] Univer sity of pressure [place] [facility] Diastolic blood 2022-02-02 13:30:00 80 mm[Hg] Unive rsity of pressure [place] [facility] Heart rate 2022-02-02 13:30:00 60 /min [facility] [place] [facility] Respiratory rate 2022-02-02 13:30:00 16 /min [facility] [place] [facility] Body height 2022-02-02 13:30:00 177.8 cm [facility] [place] [facility] [place] Body weight 2022-02-02 13:30:00 85.73 kg [facility] [place] [facility] BMI 2022-02-02 13:30:00 27.12 kg/m2 [facility] [place] [facility] Oxygen saturation in 2022-02-02 13:30:00 99 /min University of Arterial blood by [facility] Pulse oximetry Branch Systolic blood 2021-10-29 21:34:00 139 mm[Hg] Univer sity of pressure [facility] Diastolic blood 2021-10-29 21:34:00 76 mm[Hg] Unive rsity of pressure [facility] Heart rate 2021-10-29 21:34:00 66 /min [facility] [place] [facility] Respiratory rate 2021-10-29 21:34:00 18 /min [facility] [place] [facility] [place] Body height 2021-10-29 21:34:00 177.8 cm [facility] [place] [facility] Body weight 2021-10-29 21:34:00 86.909 kg [facility] [place] [facility] BMI 2021-10-29 21:34:00 27.49 kg/m2 [facility] [place] [facility] Oxygen saturation in 2021-10-29 21:34:00 98 /min [facility] of Arterial blood by [facility] Pulse oximetry Branch Procedures Procedure Date / Time Performing Clinician Source Performed POCT URINALYSIS AUTO 2023-03-31 00:00:00 [facility]be [facility] VW LEFT 2023-03-18 14:38:10 Heather [facility] EXTERNAL PROVIDER RECORDS 2023-03-01 05:01:00 Doctor Unassigned, [facility] [place] [facility] ASSIGNMENT OF BENEFITS 2023-02-08 21:46:25 Doctor Unassigned, [facility] [place] [facility] URINALYSIS 2023-02-08 21:15:00 Oliva, [facility] COMP. METABOLIC PANEL 2023-02-08 21:05:00 Alcon Oliva [facility] ([id number]) [facility] CBC WITH DIFF 2023-02-08 21:05:00 Singer [facility] CONSENT/REFUSAL FOR 2023-02-08 20:36:35 Doctor Vidhi [facility] DIAGNOSIS AND TREATMENT [facility] DME/SUPPLY JUSTIFICATION 2023-02-04 05:01:00 Doctor Vidhi [facility] POCT HEMOGLOBIN A1C TEST 2023-01-29 21:21:00 Dedra Evelin [facility] AUTHORIZATION FOR RELEASE 2022-12-10 05:01:00 Doctor Vidhi [facility] COMP. METABOLIC PANEL 2022-12-04 17:04:00 Dedra Evelin [facility] ([id number]) [facility] PROSTATIC SPECIFIC ANTIGEN 2022-12-04 17:04:00 Franklyn Bañuelos [facility] GLYCOSYLATED HEMOGLOBIN 2022-12-04 17:04:00 Dedra [facility] (A1C) [facility] URINE CULTURE 2022-12-04 17:04:00 Sarmad [facility] AUTHORIZATION FOR RELEASE 2022-10-23 05:01:00 Doctor Vidhi [facility] COMP. METABOLIC PANEL 2022-09-18 15:14:00 Evelin Colmenares [facility] ([id number]) [facility] CBC WITH DIFF 2022-09-18 15:14:00 Dedra [facility] ASSIGNMENT OF BENEFITS 2022-09-17 15:40:48 Doctor Vidhi [facility] EXTERNAL PROVIDER RECORDS 2022-08-05 06:01:00 Doctor Vidhi [facility] XR CHEST 1 VW 2022-07-27 16:06:27 Javier Morris [facility] COMP. METABOLIC PANEL 2022-07-27 15:23:00 Javier Morris [facility] ([id number]) Medical Branch CBC WITH DIFF 2022-07-27 15:23:00 Javier Morris [place] [facility] RAPID INFLUENZA A/B 2022-07-27 15:23:00 Javier Morris [facility] COVID-19 (ID NOW RAPID 2022-07-27 15:23:00 Javier Morris [facility] TESTING) Medical Branch CONSENT/REFUSAL FOR 2022-07-27 14:40:28 Doctor Vidhi [facility] DIAGNOSIS AND TREATMENT [place] [facility] [place] CARDIAC CATHETERIZATION 2022-06-18 15:56:[address] [facility] CARDIAC CATHETERIZATION 2022-06-18 15:56:[address] [facility] CARDIAC CATHETERIZATION 2022-06-18 15:56:[address] [facility] CARDIAC CATHETERIZATION 2022-06-18 15:56:[address] [facility] OUTPATIENT CARDIAC 2022-06-18 06:01:00 Doctor Vidhi [facility] CATHETERIZATION DOCUMENTS [place] [facility] CONSENT/REFUSAL FOR 2022-06-01 16:39:57 Doctor Vidhi [facility] DIAGNOSIS AND TREATMENT [place] [facility] POCT SARS-COV-2 ANTIGEN 2022-05-19 22:24:00 Haley Camejo [facility] (BINAX NOW) [facility] EXTERNAL PROVIDER RECORDS 2022-04-08 05:01:00 Doctor Vidhi, [facility] [place] [facility] POCT URINALYSIS AUTO 2022-03-30 18:15:00 Franklyn Bañuelos [facility] DISCLOSURE AND CONSENT, 2022-03-30 05:01:00 Doctor Vidhi, [facility] MEDICAL AND SURGICAL [place] [facility] PROCEDURES POCT URINALYSIS AUTO 2022-02-02 13:33:00 Franklyn Bañuelos [facility] HB ECG ROUTINE & RHYTHM 2021-10-29 21:44:44 Kamran Hua [facility] Encounters Start End Encounter Admission Attending Care Care Encounter Source Date/Time Date/Time Type Type Clinicians Facility Department ID 2022-10-13 Outpatient [facility] [id number] Univers 11:41:41 FRANKLYN bonnie [facility] 2021-11-24 Outpatient Serjio HUA [facility] [id number] Univers 16:22:05 KAMRAN bonnie [facility] 2021-04-20 Outpatient [facility] [id number] Univers 22:34:37 MARY bonnie [facility] 2021-04-20 Emergency [facility] [id number] Univers 20:43:42 [facility]bonnie [facility] [facility] 2024-03-31 2024-03-31 Outpatient R [facility] [id number] Univers 11:30:00 11:30:00 BEBE rafaelbonnie mendoza [facility] 2023-06-03 2023-06-03 Outpatient [facility] [id number] Univers 11:00:00 11:00:00 KAYLIE tafoya [facility] 2023-04-28 2023-04-28 [facility] [id number] Univers 14:15:00 14:15:00 BEBE rafaelbonnie mendoza [facility] 2023-04-08 2023-04-08 Outpatient Serjio [facility] [id number] Univers 11:15:00 11:28:19 KAYLIE tafoya [facility] 2023-04-08 2023-04-08 Office [facility] 1.2.525.423 [id number] Univers 11:15:00 11:28:19 Visit Kaylie BABIN 350.1.13.10 it y of [place].2.[place] [id number] [facility] [address] 2023-04-08 2023-04-08 [facility]phone [facility] 1.2.840.114 [id number] Univers 00:00:00 00:00:00 Franklyn OTOOLE 350.1.13.10 i ty of [place].7.2.[place] [id number] Ok dical [facility] [address] [facility] 2023-04-05 2023-04-05 Telephone [facility] 1.2.788.997 [id number] Univers 00:00:00 00:00:00 Evelin HEALTH 350.1.13.10 it y of [facility] 4.2.7.2.686 Luis Armando as EMERSON?BLEA [id number] Ok dical ADAM 044 [facility] OFFICE [facility] 2023-03-31 2023-03-31 [facility] [id number] Univers 11:00:00 11:39:00 BEBE tafoya o f [facility] 2023-03-31 2023-03-31 Office Painting, [facility] 1.2.840.114 [id number] Univers 11:00:00 11:39:00 Visit Bebe OTOOLE 350.1.13.10 ity of [place].2.7.2.[place] [phone] Ok dicbriseyda FOLEY 204 [facility] 2023-03-22 2023-03-22 [facility] [id number] Univers 10:30:00 10:30:00 EVELIN ity [facility] 2023-03-18 2023-03-18 Hospital [facility] 1.2.840.114 [id number] Univers 09:30:42 23:59:00 Encounter Heather Elkins [employer] 350.1.13.10 ity of [place] 4.2.7.2.686 Luis Armando as EMERSON?BLEA [phone] Ok veroniquebriseyda MEDINA [address] [facility] 2023-03-18 2023-03-18 Outpatient R HEATHER [facility] [id number] Univers 09:30:00 14:48:03 HENRY HEATHER rafaelbonnie [facility] 2023-03-18 2023-03-18 Office [facility] 1.2.806.317 [id number] Univers 09:30:00 14:48:03 Visit Heather Elkins [facility] 350.1.13.10 it y of [facility] 4.2.7.2.686 Luis Armando as EMERSON?BLEA [phone] Ok dicbriseyda MEDINA 198 [facility] OFFICE [facility] 2023-03-15 2023-03-15 Outpatient R [facility] [id number] Univers 11:30:00 11:30:00 MEET LUDWIG itbonnie [facility] 2023-03-10 2023-03-10 Outpatient R [facility] [id number] Univers 14:30:00 15:56:10 SENDIL itbonnie [facility] 2023-03-10 2023-03-10 [facility] 1.2.840.114 [id number] Univers 14:30:00 15:56:10 Visit Kamran OTOOLE 350.1.13.10 ity of [place] 4.2.7.2.[place] [phone] Ok dicbriseyda FOLEY 059 [facility] 2023-03-01 2023-03-01 Orders Doctor LIBORIO 1.2.840.114 [id number] Univers 00:00:00 00:00:00 Only Unassigned, SONIDO 350.1.13.10 ity [facility] 4.2.7.2.686 Luis Armando as [phone] [facility] [address] [place] [place] 2023-02-15 2023-02-15 Outpatient R [facility] [id number] Univers 09:30:00 10:14:06 EVELIN tafoya [facility] 2023-02-15 2023-02-15 Office [facility] 1.2.840.114 [id number] Univers 09:30:00 10:14:06 Visit [facility] 350.1.13.10 it y of [place] 4.2.7.2.686 Luis Armando as EMERSON?BLEA [phone] Ok dical KNEY [address] [place] MEDICAL OFFICE BUILDING 2023-02-08 2023-02-08 Emergency X [facility] ERT [id number] Univers 15:43:00 17:11:00 ALCON rafaelbonnie [facility] 2023-02-08 2023-02-08 Emergency [facility] 1.2.730.905 [id number] Univers 15:43:00 17:11:00 Alcon OTOOLE 350.1.13.10 i ty of [place] 4.2.7.2.686 [place] [id number] [facility] [address] 2023-02-04 2023-02-04 Orders Doctor LIBORIO 1.2.840.114 [id number] Univers 00:00:00 00:00:00 Only Unassigned, SONIDO 350.1.13.10 ity of [place] [facility] 4.2.7.2.686 Luis Armando as [id number] [facility] [address] 2023-01-29 2023-01-29 [facility] [id number] Univers 16:30:00 17:05:30 EVELIN ity [facility] 2023-01-29 2023-01-29 Office [facility] 1.2.840.114 [id number] Univers 16:30:00 17:05:30 Visit Evelin HEALTH 350.1.13.10 it y of [facility] 4.2.7.2.686 Luis Armando as EMERSON?BLEA [id number] [address] MEDICAL OFFICE [facility] 2023-01-20 2023-01-20 Telephone [facility] 1.2.840.114 1 [id number] Univers 00:00:00 00:00:00 Franklyn OLAF 350.1.13.10 it y of [place] [id number] [facility] [address] 2023-01-05 2023-01-05 [facility] [id number] Univers 13:30:00 14:27:23 EVELIN ity [facility] 2023-01-05 2023-01-05 Office [facility] 1.2.840.114 [id number] Univers 13:30:00 14:27:23 Visit Evelin HEALTH 350.1.13.10 it y of [place] 4.2.7.2.686 Luis Armando as EMERSNO?BLEA [id number] [address] MEDICAL OFFICE [facility] 2022-12-26 2022-12-26 Outpatient R [facility] [id number] Univers 11:40:00 11:59:22 ROWDY tafoya [facility] 2022-12-26 2022-12-26 Urgent Rowdy Enrique [facility] 1.2.840.11 4 [id number] Univers 11:40:00 11:59:22 Care Unknown, Attending HEALTH 350.1.13.10 ity of [facility] 4.2.7.2.686 Luis Amrando as EMERSON?BLEA [id number] [facility] [address] MEDICAL OFFICE [facility] 2022-12-23 2022-12-23 Telephone Dedra [facility] 1.2.808.810 [id number] [id number] Univers 00:00:00 00:00:00 Evelin HEALTH 350.1.13.10 it y of [facility] 4.2.7.2.686 Luis Armando as EMERSON?BLEA [phone] [facility] 044 [facility] OFFICE [facility] 2022-12-10 2022-12-10 Telephone Dedra [facility] 1.2.845.643 [id number] Univers 00:00:00 00:00:00 Evelin HEALTH 350.1.13.10 it y of [facility] 4.2.7.2.686 Luis Armando as EMERSON?BLEA [phone] [facility] 044 [facility] OFFICE [facility] 2022-12-10 2022-12-10 Orders Doctor LIBORIO 1..840.114 [id number] Univers 00:00:00 00:00:00 Only Unassigned, SONIDO 350.1.13.10 ity of [place] [facility] 4.2.7.2.686 Luis Armando as [phone] [address] 2022-12-04 2022-12-04 Outpatient R DEDRA CAANA [facility] [id number] Univers 12:15:00 12:15:00 EVELIN ity of [facility] 2022-12-04 2022-12-04 Branch Maker Lab, Ang - Db [facility] 1.2.840.1 14 [id number] Univers 12:15:00 12:15:00 Visit Evelin Colmenares [facility] 350.1.13.10 ity of [facility] 4.2.7.2.686 Luis Armando as EMERSON?BLEA [phone] [facility] 353 [facility] OFFICE [facility] 2022-12-03 2022-12-03 Telephone [facility] 1.2.639.965 [id number] Univers 00:00:00 00:00:00 Evelin HEALTH 350.1.13.10 it y of [place] 4.2.7.2.686 Luis Armando as EMERSON?BLEA [phone] [address] MEDICAL OFFICE [facility] 2022-11-26 2022-11-26 Outpatient R [facility] [id number] Univers 15:00:00 16:06:01 EVELIN ity of [facility] 2022-11-26 2022-11-26 Office [facility] 1.2.840.114 [id number] Univers 15:00:00 16:06:01 Visit Evelin HEALTH 350.1.13.10 it y of [place] 4.2.7.2.686 Luis Armando as EMERSON?BLEA [phone] [address] OFFICE [facility] 2022-11-19 2022-11-19 Refill [facility] 1.2.840.114 [id number] Univers 00:00:00 00:00:00 Evelin HEALTH 350.1.13.10 it y of [place] 4.2.7.2.686 Luis Armando as EMERSON?BLEA [phone] [address] OFFICE [facility] 2022-10-26 2022-10-26 Outpatient R MELITA [facility] [id number] Univers 11:00:00 11:00:00 SENDIL ity of [facility] 2022-10-23 2022-10-23 Orders Doctor LIBORIO 1.2.840.114 [id number] Univers 00:00:00 00:00:00 Only Unassigned, SONIDO 350.1.13.10 ity of [place] [facility] 4.2.7.2.686 Luis Armando as [phone] [facility] [address] 2022-10-13 2022-10-13 Telephone Sarmad [facility] 1.2.840.114 [id number] Univers 00:00:00 00:00:00 Franklyn HEALTH 350.1.13.10 it y of [place] 4.2.7.2.686 [place] [facility] - [phone] [facility] [address] 2022-10-05 2022-10-05 Telephone Sarmad [facility] 1.2.840.114 [id number] Univers 00:00:00 00:00:00 [facility] 350.1.13.10 i ty vamsi [facility] 4.2.[place].2.[place] ESS[place]THON[place] [phone] Ok camila FOLEY 204 [facility] 2022-09-29 2022-09-29 Outpatient R S[facility]AD [facility] [id number] Univers 11:15:00 11:59:23 FRANKLYN itbonnie [facility] 2022-09-24 2022-09-24 Telephone [facility] 1.2.760.432 [id number] Univers 00:00:00 00:00:00 Evelin HEALTH 350.1.13.10 it y of [place] 4.2.7.2.686 Luis Armando as EMERSON?BLEA [phone] Ok veroniquear CATY 044 [facility] OFFICE [facility] 2022-09-18 2022-09-18 Branch Maker Lab, [facility] 1.2.840.1 14 [id number] Univers 10:00:00 10:28:03 Visit Evelin Colmenares [facility] 350.1.13.10 ity [facility] 4.2.7.2.686 Luis Armando as EMERSON?BLEA [phone] Ok veroniquebriseyda MEDINA 353 [facility] OFFICE [facility] 2022-09-18 2022-09-18 Outpatient R [facility] [id number] Univers 10:00:00 10:00:00 EVELIN tafoya [facility] 2022-09-18 2022-09-18 Pre Visit LIBORIO Horan 1.2.956.353 [id number] Univers 00:00:00 00:00:00 Outreach Jayden Saloni SONIDO 350.1.13.10 ity of [facility] 4.2.7.2.686 Luis Armando as [phone] [facility] [address] 2022-09-17 2022-09-17 Outpatient R [facility] [id number] Univers 11:00:00 11:31:02 EVELIN tafoya [facility] 2022-09-17 2022-09-17 Office [facility] 1.2.840.114 [id number] Univers 11:00:00 11:31:02 Visit Evelin HEALTH 350.1.13.10 it y of [place] 4.2.7.2.686 Luis Armando as EMERSON?BLEA [phone] [address] OFFICE [facility] 2022-09-17 2022-09-17 Orders Doctor CAPONE 1.2.840.114 [id number] Univers 00:00:00 00:00:00 Only Unassigned, SONIDO 350.1.13.10 ity [facility] 4.2.7.2.686 Luis Armando as [phone] [address] 2022-09-17 2022-09-17 Refjay [facility] 1.2.840.114 [id number] Univers 00:00:00 00:00:00 Keon HEALTH 350.1.13.10 it y of [place] 4.2.7.2.686 Luis Armando as EMERSON?BLEA [phone] [address] OFFICE [facility] 2022-09-15 2022-09-15 Refjay [facility] 1.2.840.114 [id number] Univers 00:00:00 00:00:00 Evelin HEALTH 350.1.13.10 it y of [place] 4.2.7.2.686 Luis Armando as EMERSON?BLEA [phone] [address] OFFICE [facility] 2022-09-14 2022-09-14 Refjay [facility] 1.2.840.114 [id number] Univers 00:00:00 00:00:00 Evelin HEALTH 350.1.13.10 it y of [place] 4.2.7.2.686 Luis Armando as EMERSON?BLEA [phone] [address] OFFICE [facility] 2022-08-10 2022-08-10 [facility] [id number] Univers 13:00:00 13:00:00 EVELIN ity of [facility] 2022-08-05 2022-08-05 Orders Doctor CAPONE 1.2.840.114 [id number] Univers 00:00:00 00:00:00 Only Unassigned, SONIDO 350.1.13.10 ity of [place] [facility] 4.2.7.2.686 Luis Armando as [id number] [facility] [address] 2022-07-27 2022-07-27 Outpatient R [facility] [id number] Univers 13:30:00 13:30:00 EVELIN ity [facility] 2022-07-27 2022-07-27 Emergency [facility] ERT [id number] Univers 08:49:00 12:38:00 JAVIER ity [facility] 2022-07-27 2022-07-27 Emergency [facility] 1.2.621.406 [id number] Univers 08:49:00 12:38:00 Javier S [place] 350.1.13.10 i ty of [place] 4.2.7.2.686 [place] [id number] [facility] [address] 2022-07-13 2022-07-13 Telephone [facility] 1.2.568.013 [id number] Univers 00:00:00 00:00:00 Evelin HEALTH 350.1.13.10 it y of [place] 4.2.7.2.686 Luis Armando as EMERSON?BLEA [id number] [facility] [address] MEDICAL OFFICE [facility] 2022-07-09 2022-07-09 Telephone Dedra [facility] 1.2.220.081 [id number] Univers 00:00:00 00:00:00 Evelin HEALTH 350.1.13.10 it y of [place] 4.2.7.2.686 Luis Armando as EMERSON?BLEA [id number] [facility] [address] MEDICAL OFFICE [facility] 2022-06-22 2022-06-22 [employer] [facility] 1.2.615.223 [id number] [id number] Univers 00:00:00 00:00:00 Kamran [place] 350.1.13.10 ity of [place].2.7.2.686 [place] [phone] [facility] 059 [facility] 2022-06-18 2022-06-18 Outpatient R MELITA [facility] CCA [id number] Univers 06:26:00 12:25:00 SENDIL ity of [facility] 2022-06-18 2022-06-18 Hospital HuaEFREM servin 1.2.840.114 [id number] Univers 06:26:00 12:25:00 Encounter Kamran HEAD 350.1.13.10 ity of [facility] 4.2.7.2.686 Luis Armando as [phone] [place] [address] [place] 2022-06-18 2022-06-18 Surgery Emmett EFREM 1.2.840.114 [id number] Univers 10:00:00 11:00:00 Kenn SONIDO 350.1.13.10 it y of [facility] 4.2.7.2.686 Luis Armando as [phone] [place] [address] [place] 2022-06-18 2022-06-18 Telephone Dedra [facility] 1.2.915.930 [id number] [id number] Univers 00:00:00 00:00:00 [facility] 350.1.13.10 it y of [place] 4.2.7.2.686 Luis Armando as EMERSON?BLEA [phone] Ok dical KNEY [address] [place] MEDICAL OFFICE BUILDING 2022-06-18 2022-06-18 Orders Doctor LIOBRIO 1.2.840.114 [id number] Univers 00:00:00 00:00:00 Only Unassigned, SONIDO 350.1.13.10 ity of [place] [facility] 4.2.7.2.686 Luis Armando as [phone] [facility] [address] 2022-06-16 2022-06-16 Branch Maker Rocael, Adc Lab Main [facility] 1.2.8 40.114 [id number] Univers 11:45:00 12:00:00 Visit Kamran Hua 350.1.13. 10 ity of [place] 4.2.7.2.686 [place] [id number] Ok dical [facility] [address] BUILDING 2022-06-16 2022-06-16 Outpatient R MELITA [facility] [id number] Univers 11:45:00 11:45:00 SENDIL ity of [facility] 2022-06-162022-06-16 Outpatient R [facility] [id number] Univers 08:00:00 08:00:00 ity [facility] 2022-06-01 2022-06-01 Emergency [facility] ERT [id number] Univers 11:00:00 11:25:00 FADUMO ity [facility] 2022-06-01 2022-06-01 Emergency [facility] 1.2.765.706 [id number] Univers 11:00:00 11:25:00 Fadumo OTOOLE 350.1.13.10 ity of [place] 4.2.7.2.686 [place] [facility] [id number] [facility] [address] 2022-05-20 2022-05-20 Outpatient R [facility] [id number] Univers 11:00:00 11:00:00 ity [facility] 2022-05-19 2022-05-19 [facility] [id number] Univers 16:20:00 16:38:33 [facility] 2022-05-19 2022-05-19 Urgent Bashir [facility] 1.2.840.114 9 [id number] Univers 16:20:00 16:38:33 Care Unknown, Attending HEALTH 350.1.13.10 ity of [place] 4.2.7.2.686 Luis Armando as EMERSON?BLEA [id number] [facility] KNEY [address] MEDICAL OFFICE BUILDING 2022-05-08 2022-05-08 Telephone EFREM Hua 1.2.013.471 [id number] Univers 00:00:00 00:00:00 Kamran HEAD 350.1.13.10 ity of [facility] 4.2.7.2.686 Luis Armando as [phone] [facility] [address] 2022-04-29 2022-04-29 Telephone Melita [facility] 1.2.458.107 [id number] [id number] Univers 00:00:00 00:00:00 Kamran OTOOLE 350.1.13.10 ity of [place] 4.2.7.2.686 [place] [id number] Ok dicar NAL [address] BUILDING 2022-04-27 2022-04-27 Telephone EFREM Hua 1.2.037.708 [id number] Univers 00:00:00 00:00:00 Sendteodoro JorgeErickaHipolitoEricka SONIDO 350.1.13.10 ity of [facility] 4.2.7.2.686 Luis Armando as [phone] [facility] [address] 2022-04-18 2022-04-18 [facility] 1.2.840.114 [id number] Univers 00:00:00 00:00:00 Wondiful A HEALTH 350.1.13.10 ity of [place] 4.2.7.2.686 Luis Armando as EMERSON?BLEA [phone] Ok dical [facility] 044 [facility] OFFICE [facility] 2022-04-08 2022-04-08 Orders Doctor LIBORIO 1.2.840.114 [id number] Univers 00:00:00 00:00:00 Only Unassigned, SONIDO 350.1.13.10 ity of [place] [facility] 4.2.7.2.686 Luis Armando as [phone] [address] 2022-03-30 2022-03-30 Outpatient R [facility] [id number] Univers 13:00:00 14:03:44 FRANKLYN ity [facility] 2022-03-30 2022-03-30 Office [facility] 1.2.840.114 [id number] Univers 13:00:00 14:03:44 Visit Rm, Adc Surg Spec Procedure [facility] 50.1.13.10 ity of [place] 4.2.7.2.686 [place] [phone] Ok dical ALAINA 204 [facility] 2022-03-30 2022-03-30 Orders Doctor LIBORIO 1.2.840.114 [id number] Univers 00:00:00 00:00:00 Only Unassigned, SONIDO 350.1.13.10 ity of [place] [facility] 4.2.7.2.686 Luis Armando as [phone] [address] 2022-03-26 2022-03-[address] [facility] 1.2.840.114 [id number] Univers 00:00:00 00:00:00 Franklyn [facility] 350.1.13.10 i ty of [facility] 4.2.7.2.686 [place] [id number] [address] 2022-03-18 2022-03-18 Nurse Nurse, [facility] Surgery [facility] 1.2. 840.114 [id number] Univers 10:00:00 10:36:16 Visit Franklyn Bañuelos [place] 350.1.13.10 ity of [facility] 4.2.7.2.686 [place] [phone] [address] 2022-03-18 2022-03-18 [facility] [id number] Univers 10:00:00 10:00:00 FRANKLYN ity [facility] 2022-03-09 2022-03-09 [facility] [id number] Univers 14:00:00 14:00:00 FRANKLYN ity [facility] 2022-03-03 2022-03-03 [facility] 1.2.840.114 [id number] Univers 00:00:00 00:00:00 [facility] 350.1.13.10 it y of [facility] 4.2.7.2.686 Luis Armando as EMERSON?BLEA [phone] [address] MEDICAL [facility] 2022-02-25 2022-02-25 Nurse Nurse, [facility] Surgery [facility] 1.2. 840.114 [id number] Univers 13:15:00 13:15:00 Visit Franklyn Bañuelos 350.1.13.10 ity of [facility] 4.2.7.2.686 [place] [phone] [facility] 204 [facility] 2022-02-25 2022-02-25 Outpatient [facility] [id number] Univers 13:15:00 13:02:27 FRANKLYN ity [facility] 2022-02-02 2022-02-02 [facility] [id number] Univers 08:15:00 09:02:46 FRANKLYN ity [facility] 2022-02-02 2022-02-02 Office Sarmad [facility] 1.2.840.114 [id number] Univers 08:15:00 09:02:46 Visit Franklynantonella KITCHENRICH 350.1.13.10 i ty of [place] 4.2.7.2.686 [place] [id number] Ok camila [address] 2022-01-29 2022-01-29 Outpatient R S[facility]AD [facility] [id number] Univers 11:45:00 11:45:00 FRANKLYN ity [facility] 2022-01-22 2022-01-22 [facility] 1.2.840.114 [id number] Univers 00:00:00 00:00:00 Wondiful A HEALTH 350.1.13.10 ity of [facility] 4.2.7.2.686 Luis Armando as EMERSON?BLEA [phone] Ok dicbriseyda [address] OFFICE [facility] 2022-01-22 2022-01-22 Refjay [facility] 1.2.840.114 [id number] Univers 00:00:00 00:00:00 Wondiful A HEALTH 350.1.13.10 ity [facility] 4.2.7.2.686 Luis Armando as EMERSON?BLEA [phone] Ok dicbriseyda [facility] [address] [facility] OFFICE [facility] 2022-01-22 2022-01-22 Refjay Scherer [facility] 1.2.840.114 [id number] Univers 00:00:00 00:00:00 Keon HEALTH 350.1.13.10 it y of [place] 4.2.7.2.686 Luis Armando as EMERSON?BLEA [phone] [facility] [facility] OFFICE [facility] 2022-01-19 2022-01-19 [facility] - Shawn [facility] 1.2.840.1 14 [id number] Univers 13:15:00 13:25:36 Visit Evelin Colmenares HEALTH 350.1.13.10 ity of [place] 4.2.7.2.686 Luis Armando as EMERSON?BLEA [phone] [facility] [address] [facility] OFFICE [facility] 2022-01-19 2022-01-19 Outpatient R [facility] [id number] Univers 13:15:00 13:15:00 EVELINSAMM tafoya [facility] 2022-01-19 2022-01-19 Telephone Dedra [facility] [id number] Univers 00:00:00 00:00:00 Evelin HEALTH 350.1.13.10 it y of [place] 4.2.7.2.686 Luis Armando as EMERSON?BLEA [id number] [address] MEDICAL OFFICE [facility] 2022-01-16 2022-01-16 Outpatient R [facility] [id number] Univers 13:00:00 23:59:00 EVELIN ity [facility] 2022-01-16 2022-01-16 Outpatient R [facility] [id number] [facility] 13:00:00 13:00:00 EVELIN ity [facility] 2022-01-16 2022-01-16 [facility], [facility] 1.2.840.1 14 [id number] Univers 12:15:00 12:30:00 Visit Evelin Colmenares HEALTH 350.1.13.10 ity of [place] 4.2.7.2.686 Luis Armando as EMERSON?BLEA [phone] [address] OFFICE [facility] 2022-01-16 2022-01-16 Office [facility] 1.2.840.114 [id number] Univers 11:30:00 12:24:17 Visit Evelin HEALTH 350.1.13.10 it y of [place] 4.2.7.2.686 Luis Armando as EMERSON?BLEA [phone] [address] OFFICE [facility] 2022-01-16 2022-01-16 Outpatient R [facility] [id number] Univers 11:30:00 12:24:17 EVELIN ity [facility] 2022-01-16 2022-01-16 Outpatient R [facility] [id number] Univers 11:30:00 11:30:00 EVELIN michelet [facility] 2021-12-30 2021-12-30 Outpatient R [facility] [id number] Univers 14:27:53 23:59:00 EVELINSAMM tafoya [facility] 2021-12-30 2021-12-30 Outpatient R [facility] [id number] Univers 13:30:00 15:03:09 EVELINSAMM tafoya [facility] 2021-12-30 2021-12-30 Office [facility] 1.2.840.114 [id number] Univers 13:30:00 15:03:09 Visit Evelin JOAQUIN 350.1.13.10 it y of [place] 4.2.7.2.686 Luis Armando as EMERSON?BLEA [phone] [address] MEDICAL OFFICE [facility] 2021-12-30 2021-12-30 Outpatient R DEDRA [facility] [id number] Univers 13:30:00 13:30:00 EVELIN tafoya [facility] 2021-12-26 2021-12-26 Telephone [facility] 1.2.462.483 [id number] Univers 00:00:00 00:00:00 Evelin HEALTH 350.1.13.10 it y of [place] 4.2.7.2.686 Luis Armando as EMERSON?BLEA [phone] [address] MEDICAL OFFICE [facility] 2021-12-24 2021-12-24 Outpatient R MELITA [facility] [id number] Univers 13:00:00 13:00:00 SENDIL ity [facility] 2021-12-24 2021-12-24 Outpatient R MELITA [facility] [id number] Univers 13:00:00 13:00:00 SENDIL ity [facility] 2021-12-24 2021-12-24 Outpatient R MELITA [facility] [id number] Univers 13:00:00 13:00:00 SENDIL ity [facility] 2021-12-24 2021-12-24 Outpatient R MELITA [facility] [id number] Univers 13:00:00 13:00:00 SENDIL ity [facility] 2021-12-24 2021-12-24 Telephone HuaEFREM 1.2.606.088 [id number] Univers 00:00:00 00:00:00 Kamran HEAD 350.1.13.10 ity of [facility] 4.2.7.2.686 Luis Armando as [phone] [facility] [address] 2021-12-24 2021-12-24 Telephone [facility] 1.2.100.056 [id number] Univers 00:00:00 00:00:00 Evelin HEALTH 350.1.13.10 it y of [place] 4.2.7.2.686 Luis Armando as EMERSON?BLEA [id number] [address] OFFICE [facility] 2021-12-19 2021-12-19 [facility] [id number] Univers 14:30:00 14:58:55 EVELIN ity [facility] 2021-12-19 2021-12-19 Office [facility] 1.2.840.114 [id number] Univers 14:30:00 14:58:55 Visit [facility] 350.1.13.10 it y of [place] 4.2.7.2.686 Luis Armando as EMERSON?BLEA [id number] [address] OFFICE [facility] 2021-12-19 2021-12-19 Telephone [facility] 1.2.462.698 [id number] Univers 00:00:00 00:00:00 Kamran OTOOLE 350.1.13.10 ity [facility] [place].2.7.2.[place] [phone] Ok camila [facility] 059 [facility] 2021-12-02 2021-12-02 Outpatient R [facility] [id number] Univers 11:30:00 11:30:00 ity [facility] 2021-12-02 2021-12-02 Outpatient R [facility] [id number] Univers 11:00:00 11:00:00 ity [facility] 2021-11-26 2021-11-26 Telephone [facility] 1.2.708.883 [id number] Univers 00:00:00 00:00:00 Elinor MULTISPEC 350.1.13.10 ity of [place] 4.2.7.2.686 [facility] [id number] [facility] [address] [facility] 2021-11-25 2021-11-25 Outpatient R ELINOR JIMENEZ [facility] [id number] Univers 14:30:47 23:59:00 ELINOR JIMENEZ [facility] 2021-11-25 2021-11-25 [facility] 1.2.840.114 [id number] Univers 14:30:47 23:59:00 Encounter Elinor WATTPEC 350.1.13.10 ity of [place] 4.2.7.2.686 [facility] PRYOR [phone] [facility] [address] [facility] 2021-11-25 2021-11-25 Outpatient R ELINOR JIMENEZ [facility] [id number] Univers 15:00:00 15:48:19 ELINOR JIMENEZ [facility] 2021-11-25 2021-11-25 Office Barbara CAANA 1.2.840.114 [id number] Univers 15:00:00 15:48:19 Visit Elinor SOTO 350.1.13.10 ity of [place] 4.2.7.2.686 [facility] PRYOR [id number] [facility] [address] [facility]IC 2021-11-25 2021-11-25 Outpatient R ELINOR JIMENEZ [facility] [id number] Univers 14:00:00 14:00:00 ELINOR JIMENEZ [facility] 2021-11-25 2021-11-25 Outpatient R ELINOR JIMENEZ [facility] [id number] Univers 14:00:00 14:00:00 ELINOR JIMENEZ [facility] 2021-11-20 2021-11-20 Telephone Barbara CAANA 1.2.195.111 [id number] Univers 00:00:00 00:00:00 Elinor WATTPEC 350.1.13.10 ity of [place] [id number] [facility] AND [place] [address] [facility]ES CLINIC 2021-11-18 2021-11-18 Telephone EFREM Hua 1.2.026.563 [id number] Univers 00:00:00 00:00:00 Kamran HEAD 350.1.13.10 ity of [facility] 4.2.7.2.686 Luis Armando as [phone] [facility] [address] 2021-11-18 2021-11-18 Jorge [facility] 1.2.840.114 [id number] Univers 00:00:00 00:00:00 Wonful A HEALTH 350.1.13.10 ity of [place] 4.2.7.2.686 Luis Armando as EMERSON?BLEA [id number] [facility] [address] MEDICAL OFFICE BUILDING 2021-11-07 2021-11-07 Outpatient GEE JUAN [facility] [id number] Univers 13:00:00 14:01:44 [facility] 2021-11-07 2021-11-07 Office [facility] 1.2.840.114 [id number] Univers 13:00:00 14:01:44 Visit [facility] 350.1.13.10 ity of [place] 4.2.7.2.686 Luis Armando as EMERSON?BLEA [phone] [facility] [address] MEDICAL OFFICE [facility] 2021-11-07 2021-11-07 Outpatient Serjio [facility]MENARES [facility] [id number] Univers 11:30:00 11:30:00 EVELIN ity of [facility] 2021-11-06 2021-11-06 Telephone [facility] .2.524.396 [id number] Univers 00:00:00 00:00:00 Kamran OTOOLE 350.1.13.10 ity of [place] 4.2.7.2.686 [place] [facility] [id number] [facility] 059 [facility] 2021-11-03 2021-11-03 Outpatient Serjio [facility]ES [facility] [id number] Univers 11:30:00 12:12:13 EVELIN ity [facility] 2021-11-03 2021-11-03 Office [facility] 1.2.840.114 [id number] Univers 11:30:00 12:12:13 Visit [facility] 350.1.13.10 it y of [place] 4.2.7.2.686 Luis Armando as EMERSON?BLEA [phone] Ok dical KNEY [facility] OFFICE [facility] 2021-11-03 2021-11-03 Outpatient R DEDRA [facility] [id number] Univers 11:30:00 11:30:00 [facility] 2021-10-29 2021-10-29 Outpatient R MELITA [facility] [id number] Univers 15:00:00 17:02:57 SENDIL [facility] 2021-10-29 2021-10-29 Office [facility] 1.2.840.114 [id number] Univers 15:00:00 17:02:57 Visit Sendil Jorge.HEricka [facility] 350.1.13.10 ity [facility] 4.2.7.2.[place] [phone] Ok dicar NAL [address] [place] [address] 2021-10-29 2021-10-29 Outpatient R MELITA [facility] [id number] Univers 15:00:00 17:02:57 SENDIL [facility] 2021-10-24 2021-10-24 Telephone [facility] 1.2.163.063 [id number] Univers 00:00:00 00:00:00 Sendil [facility] FIDELINATON 350.1.13.10 ity [facility] 4.2.7.2.686 [place] [phone] Ok dical NAL [address] [place] [address] 2021-10-23 2021-10-23 Urgent Jamal [facility] 1.2.840.114 [id number] Univers 18:00:00 18:18:59 Care [facility] HEALTH 350.1.13.10 it y of [facility] 4.2.7.2.686 Luis Armando as EMERSON?BLEA [phone] Me dical KNEY [address] MEDICAL OFFICE BUILDING 2021-10-23 2021-10-23 Outpatient R JAMAL [facility] [id number] Univers 18:00:00 18:00:00 ENRICORAMIREZ tafoya [facility] 2021-10-23 2021-10-23 Jorge Del Real [facility] 1.2.840.114 [id number] Univers 00:00:00 00:00:00 Wondiful A HEALTH 350.1.13.10 ity of [place] 4.2.7.2.686 Luis Armando as EMERSON?BLEA [phone] [address] MEDICAL OFFICE [facility] 2021-10-09 2021-10-09 Outpatient R ELINOR JIMENEZ [facility] [id number] Univers 13:00:00 13:42:33 ELIONR JIMENEZ [facility] 2021-10-09 2021-10-09 Office [facility] 1.2.840.114 [id number] Univers 13:00:00 13:42:33 Visit [facility] 350.1.13.10 ity of [place]2.7.2.[place] [phone] [address] DIABETES CLINIC 2021-10-09 2021-10-09 Outpatient R ELINOR JIMENEZ [facility] [id number] Univers 13:00:00 13:42:33 ELINOR JIMENEZ [facility] 2021-10-07 2021-10-07 Outpatient R DEDRA [facility] [id number] Univers 16:30:00 17:14:26 EVELIN rafaelbonnie [facility] 2021-10-07 2021-10-07 Office [facility] 1.2.840.114 [id number] Univers 16:30:00 17:14:26 Visit Evelin HEALTH 350.1.13.10 it y of [place] 4.2.7.2.686 Luis Armando as EMERSON?BLEA [phone] [address] MEDICAL OFFICE [facility] 2021-10-07 2021-10-07 Outpatient R DEDRA [facility] [id number] Univers 16:30:00 17:14:26 EVELIN ity [facility] 2021-10-07 2021-10-07 Outpatient R DEDRA [facility] [id number] Univers 16:30:00 17:14:26 EVELIN ity [facility] 2021-10-07 2021-10-07 Orders Doctor LIBORIO 1.2.840.114 [id number] Univers 00:00:00 00:00:00 Only Unassigned, SONIDO 350.1.13.10 ity of [facility] 4.2.7.2.686 Luis Armando as [phone] [address] 2021-09-30 2021-09-30 Refill Raul [facility] 1.2.840.114 [id number] Univers 00:00:00 00:00:00 [facility] 350.1.13.10 i ty of [place] 4.2.7.2.686 Luis Armando as EMERSON?BLEA [phone] Ok camila BYRNEEY [address] MEDICAL OFFICE BUILDING 2021-09-17 2021-09-17 Outpatient R RADIOLOGY [facility] [id number] Univers 00:00:00 00:00:00 ity of [facility] 2021-09-15 2021-09-15 Outpatient R MELITA, [facility] [id number] Univers 15:00:00 15:00:00 SENDIL ity [facility] 2021-09-10 2021-09-10 Outpatient R MELITA [facility] [id number] Univers 14:00:00 15:05:34 SENDIL ity [facility] 2021-09-10 2021-09-10 Office [facility] 1.2.840.114 [id number] Univers 14:00:00 15:05:34 Visit Sendil Aniya OTOOLE 350.1.13.10 ity [facility] 4.2.7.2.[place] [phone] Ok camila FOLEY [address] [facility] 2021-09-10 2021-09-10 Outpatient R MELITA [facility] [id number] Univers 14:00:00 15:05:34 SENDIL ity [facility] 2021-09-10 2021-09-10 Orders Doctor LIBORIO 1.2.840.114 [id number] Univers 00:00:00 00:00:00 Only Unassigned, SONIDO 350.1.13.10 ity of [place] [facility] 4.2.7.2.686 Luis Armando as [phone] [facility] [address] 2021-09-08 2021-09-08 Urgent [facility] 1.2.840.114 [id number] Univers 10:20:00 10:40:00 Care [facility] 350.1.13.10 i ty of [place] 4.2.7.2.686 Luis Armando as EMERSON?BLEA [phone] Me dical [address] MEDICAL OFFICE BUILDING 2021-09-08 2021-09-08 Outpatient R [facility] [id number] Univers 10:20:00 10:20:00 TAMERA hally o f [facility] 2021-09-08 2021-09-08 Letter Doctor LIBORIO 1.2.840.114 [id number] Univers 00:00:00 00:00:00 (Out) Unassigned, SONIDO 350.1.13.10 ity of [place] [facility] 4.2.7.2.686 Luis Armando as [phone] [facility] [address] 2021-09-08 2021-09-08 Letter Doctor LIBORIO 1.2.840.114 [id number] Univers 00:00:00 00:00:00 (Out) Unassigned, SONIDO 350.1.13.10 ity of [place] [facility] 4.2.7.2.686 Luis Armando as [phone] [facility] [address] 2021-09-01 2021-09-01 Transition LamarSHAKAVivek 1.2.840.114 [id number] Univers 00:00:00 00:00:[address] GOMEZ 350.1.13.10 ity of [place].7.2.686 [place] [id number] [facility] [address] 2021-08-29 2021-08-30 Outpatient U PONCHO NOBLES [facility] IGGY [id number] Univers 17:37:00 15:10:00 PONCHO NOBLES [facility] 2021-08-29 2021-08-30 Emergency Jorge Geiger 1.2.840. 114 [id number] Univers 17:37:00 15:10:00 Poncho Nobles 350.1. 13.10 [facility] 4.2.7.2.686 Luis Armando as [phone] [facility] [address] 2021-08-29 2021-08-29 Outpatient R [facility] [id number] Univers 17:00:00 17:00:00 NESTOR [facility] 2021-08-27 2021-08-27 Outpatient ELINOR ENAMORADO [facility] [id number] Univers 15:00:00 15:00:00 ELINOR JIMENEZ [facility] 2021-08-27 2021-08-27 Telephone [facility] 1.2.940.183 [id number] Univers 00:00:00 00:00:00 Elinor SOTO 350.1.13.10 [facility] 4.2.7.2.686 [facility] [phone] [facility] [place] [address] [facility]ES CLINIC 2021-08-26 2021-08-26 Outpatient ELINOR ENAMORADO [facility] [id number] Univers 15:02:48 23:59:00 ELINOR JIMENEZ [facility] 2021-08-26 2021-08-26 [facility] 1.2.840.114 [id number] Univers 15:02:48 23:59:00 Encounter Elinor SOTO 350.1.13.10 [facility] [place]2.[place].2.[place] C[place] [id number] [facility] DEONTE [address] DIABETES CLINIC 2021-08-26 2021-08-26 Outpatient ELINOR ENAMORADO [facility] [id number] Univers 14:30:00 14:30:00 ELINOR JIMENEZ [facility] 2021-08-12 2021-08-12 Outpatient ELINOR ENAMORADO [facility] [id number] Univers 15:30:00 15:30:00 BARBARA ELINOR tafoya of [facility] 2021-08-12 2021-08-12 Office Barbara [facility] 1.2.840.114 [id number] Univers 15:30:00 15:30:00 Visit Elinor MULTISPEC 350.1.13.10 ity of [place] GUZMÁNBonnie 4.2.7.2.686 [place] [phone] [address] DIABETES CLINIC 2021-08-12 2021-08-12 Outpatient R ELINOR JIMENEZ [facility] [id number] Univers 15:30:00 15:20:13 ELINOR JIMENEZ [facility] 2021-08-05 2021-08-05 Outpatient R GT [facility] [id number] Univers 10:15:00 11:59:19 WONDIFUL ity o f [facility] 2021-08-05 2021-08-05 Office Gt [facility] 1.2.840.114 [id number] Univers 10:15:00 11:59:19 Visit Wondiful A HEALTH 350.1.13.10 ity of [place] 4.2.7.2.686 Luis Armando as EMERSON?BLEA [phone] [facility] OFF[facility] BUILDING 2021-08-05 2021-08-05 Branch [facility], [facility] 1.2.840.1 14 [id number] Univers 11:15:00 11:30:00 Visit Nehal Del Real A HEALTH 350.1.13.1 0 ity of [place] 4.2.7.2.686 Luis Armando as EMERSON?BLEA [phone] Ok camila TAZ [address] MEDICAL OFFICE BUILDING 2021-08-04 2021-08-04 Outpatient R GISSELLE [facility] [id number] Univers 11:00:00 13:30:03 ity of [facility] 2021-08-04 2021-08-04 Office Karlie Jim [facility] 1.2.840.114 [id number] Univers 11:00:00 13:30:03 Visit Gisselle [place] HEALTH 350.1.13.10 ity of [place]2.7.2.686 [place] [phone] [facility] [address] OFFICE BUILDING 2021-08-04 2021-08-04 Outpatient R HERMINIO GISSELLE [facility] [id number] Univers 11:00:00 11:00:00 ity of [facility] 2021-08-04 2021-08-04 Orders Doctor LIBORIO 1.2.840.114 [id number] Univers 00:00:00 00:00:00 Only Unassigned, SONIDO 350.1.13.10 ity of [facility] 4.2.7.2.686 Luis Armando as [phone] [facility] [address] 2021-07-28 2021-07-28 Telephone Gt [facility] 1.2.840.114 [id number] Univers 00:00:00 00:00:00 Wondiful A HEALTH 350.1.13.10 ity of [facility] 4.2.7.2.686 Luis Armando as EMERSON?BLEA [phone] Ok veroniquebriseyda [facility] OFFICE [facility] 2021-06-30 2021-06-30 Emergency X [facility] ERT [id number] Univers 15:54:00 18:42:00 FLORENTIN ity of [facility] 2021-06-30 2021-06-30 Emergency [facility] 1.2.840.114 [id number] Univers 15:54:00 18:42:00 Florentin B [place] 350.1.13.10 i ty [facility] 4.2.7.2.686 [place] [phone] [facility] [address] 2021-06-28 2021-06-28 Urgent Nurse, [facility] 1.2.840.114 [id number] Univers 19:00:00 19:20:00 Care Raul, Tamera HEALTH 350.1.13.10 ity of [facility] 4.2.7.2.686 Luis Armando as EMERSON?BLEA [phone] Ok veroniquebriseyda MEDINA [address] MEDICAL OFFICE BUILDING 2021-06-28 2021-06-28 Outpatient R RAUL [facility] [id number] Univers 19:00:00 19:00:00 TAMERA ity o f [facility] 2021-06-282021-06-28 Outpatient R RAUL [facility] [id number] Univers 19:00:00 19:00:00 TAMERA tafoya o f [facility] 2021-06-23 2021-06-23 Outpatient R BASHIR [facility] [id number] Univers 20:40:00 20:56:03 HALEY ity [facility] 2021-06-23 2021-06-23 Urgent [facility] 1.2.840.114 [id number] Univers 20:40:00 20:56:03 Care Haley HEALTH 350.1.13.10 it y of [place] 4.2.7.2.686 Luis Armando as EMERSON?BLEA [phone] Ok veroniquear KNEY [address] MEDICAL OFFICE BUILDING 2021-06-18 2021-06-18 Office [facility] 1.2.518.172 [id number] Univers 10:20:00 10:40:00 Visit Shyanne Hilario [place] 350.1.13.10 ity of [place].2.7.2.[place] ESSANTHONY [phone] Ok camila FOLEY [facility] 2021-06-18 2021-06-18 Outpatient R RUY BLANDMDBrittni [facility] [id number] Univers 10:20:00 10:20:00 SHYANNE BLAND [facility] 2021-06-18 2021-06-18 Outpatient R RUY BLANDMDBrittni [facility] [id number] Univers 10:20:00 10:20:00 RUY BLANDMDBrittni itbonnie [facility] 2021-06-05 2021-06-05 Orders Doctor CAPONE 1.2.840.114 [id number] Univers 00:00:00 00:00:00 Only Unassigned, SONIDO 350.1.13.10 ity of [facility] 4.2.7.2.686 Luis Armando as [phone] [address] 2021-06-03 2021-06-03 [facility] 1.2.840.114 [id number] Univers 00:00:00 00:00:00 Wondiful A HEALTH 350.1.13.10 ity of [place] 4.2.7.2.686 Luis Armando as EMERSON?BLEA [phone] [address] MEDICAL OFFICE [facility] 2021-06-02 2021-06-02 Case Gt [facility] 1.2.840.114 [id number] Univers 00:00:00 00:00:00 Management Wondiful A HEALTH 350.1.13.10 ity of [facility] 4.2.7.2.686 Luis Armando as EMERSON?BLEA [phone] [address] MEDICAL OFFICE [facility] 2021-06-02 2021-06-02 Telephone Gt [facility] 1.2.840.114 [id number] Univers 00:00:00 00:00:00 Wondiful A HEALTH 350.1.13.10 ity of [facility] 4.2.7.2.686 Luis Armando as EMERSON?BLEA [phone] [address] OFFICE [facility] 2021-05-22 2021-05-22 Branch Maker [facility] 1.2 .840.114 [id number] Univers 12:47:18 13:02:18 Visit [facility] 350.1.13. 10 ity of [place] 4.2.7.2.686 [place] [id number] [facility] [address] 2021-05-22 2021-05-22 Outpatient R SHYANNE BLAND [facility] [id number] Univers 13:00:00 13:00:00 SHYANNE BLAND [facility] 2021-05-22 2021-05-22 Outpatient R SHYANNE BLAND [facility] [id number] Univers 13:00:00 13:00:00 SHYANNE BLAND [facility] 2021-05-22 2021-05-22 Orders Doctor CAPONE 1.2.840.114 [id number] Univers 00:00:00 00:00:00 Only Unassigned, SONIDO 350.1.13.10 ity of [place] [facility] 4.2.7.2.686 Luis Armando as [phone] [address] 2021-05-20 2021-05-20 Outpatient R [facility] [id number] Univers 13:00:00 13:00:00 ity of [facility] 2021-05-20 2021-05-20 Outpatient R JAMILAYUDY SHYANNE [facility] [id number] Univers 13:00:00 13:00:00 RUY BLANDRADHA ity of [facility] 2021-05-20 2021-05-20 Laboratory Only, Adc Test [facility] 1.2.840. 114 [id number] Univers 12:39:23 12:54:23 Only Shyanne Bland T [place] 350.1.13. 10 ity of [place] 4.2.7.2.686 [place] [phone] [address] 2021-05-13 2021-05-13 Jorge Del Real [facility] 1.2.840.114 [id number] Univers 00:00:00 00:00:00 Wondiful A HEALTH 350.1.13.10 ity of [place] 4.2.7.2.686 Luis Armando as PROFESSIO [phone] Ok camila FOLEY [address] [place] [address] OFFICE BUILDING ONE 2021-05-12 2021-05-12 Alex Del Real [facility] 1.2.840.114 [id number] Univers 00:00:00 00:00:00 Management Wondiful A HEALTH 350.1.13.10 ity of [place] 4.2.7.2.686 Luis Armando as EMERSON?BLEA [phone] Ok camila MEDINA [address] MEDICAL OFFICE BUILDING 2021-05-10 2021-05-10 Outpatient R DOUGLAS [facility] [id number] Univers 09:40:00 09:40:00 ACE ity of [facility] 2021-05-10 2021-05-10 Urgent Luz Maria Berry [facility] 1.2.840.114 [id number] Univers 09:17:19 09:37:19 Elana Cole, Ace HEALTH 350.1.13.10 ity of [place] 4.2.7.2.686 Luis Armando as EMERSON?BLEA [phone] Ok camila MEDINA [address] MEDICAL OFFICE BUILDING 2021-05-09 2021-05-09 [facility] 1.2.840.114 [id number] Univers 00:00:00 00:00:00 Wondiful A HEALTH 350.1.13.10 ity of [place] [id number] Luis Armando as EMERSON?BLEA [phone] Ok camila MEDINA 0[facility] OFFICE BUILDING 2021-05-06 2021-05-06 [facility] 1.2.840.114 [id number] Univers 00:00:00 00:00:00 Wondiful [facility] 350.1.13.10 ity of [place] [id number] Luis Armando as PROFESSIO [phone] Ok camila FOLEY [address] [place] [address] OFFICE [facility] 2021-05-05 2021-05-05 Outpatient [facility] [id number] Univers 16:15:00 23:59:00 WONDIFUL ity o f [facility] 2021-05-05 2021-05-05 Hospital [facility] [id number] Univers 16:15:00 23:59:00 Encounter Wondiful [facility] 350.1.13.10 ity of [place] [id number] Luis Armando as EMERSON?BLEA [phone] [facility] 8[facility] OFFICE [facility] 2021-05-05 2021-05-05 [facility] - Db [facility] 1.2.840.1 [id number] Univers 16:21:47 16:38:22 Visit Alejandro Del Realconniegennaro [facility] 350.1.13.1 0 ity of [place] [id number] Luis Armando as EMERSON?BLEA [phone] Ok camila MEDINA 353 [facility] OFFICE BUILDING 2021-05-05 2021-05-05 Outpatient [facility] [id number] Univers 16:00:00 16:18:42 WONDIFUL ity o f [facility] 2021-05-05 2021-05-05 Office [facility] 1.2.840.114 [id number] Univers 15:17:21 16:18:42 Visit Wondiful [facility] 350.1.13.10 ity of [place] [id number] Luis Armando as EMERSON?BLEA [phone] Ok camila MEDINA [address] [place] [address] OFFICE [facility] 2021-04-11 2021-04-11 Outpatient [facility] [id number] Univers 15:45:00 15:45:00 WONDIFUL ity o f [facility] 2021-03-09 2021-03-09 [facility] 1.2.840.114 [id number] Univers 00:00:00 00:00:00 Wondiful [facility] 350.1.13.10 ity of [place] [id number] Luis Armando as Professio [phone] [facility] alaina [address] [place] [address] Office [facility] 2021-03-07 2021-03-07 Veto Del Real [facility] [id number] Univers 00:00:00 00:00:00 [facility] [id number] [place]y of [place] [id number] Luis Armando as Emerson?Blea [phone] Ok camila medina [address] [place] [address] Office [facility] 2021-02-12 2021-02-12 [facility] 1.2.840.114 [id number] Univers 00:00:00 00:00:00 [facility] [id number] [place] [id number] Luis Armando as Professio [phone] [facility] alaina [address] [place] [address] Office [facility] One 2021-02-10 2021-02-10 Outpatient R KARLIE JIM [facility] [id number] Univers 10:00:00 10:00:00 ity of [facility] 2021-02-10 2021-02-10 [facility] 1.2.840.114 [id number] Univers 09:40:46 09:55:46 Visit Health [id number] [id number] [place] [phone] [address] Office Building 2021-01-20 2021-01-20 Outpatient R GT [facility] [id number] Univers 08:00:00 08:00:00 WONDIFUL ity o f [facility] 2021-01-17 2021-01-17 Outpatient R GT, [facility] [id number] Univers 10:30:00 10:30:00 WONDIFUL ity o f [facility] 2021-01-01 2021-01-01 Outpatient R AGUILA [facility] [id number] Univers 16:20:00 16:20:00 CHUCKIE [facility] 2020-12-30 2020-12-30 Outpatient R SARMAD [facility] [id number] Univers 15:00:00 15:00:00 [facility] 2020-12-24 2020-12-24 Outpatient R HELENE [facility] [id number] Univers 15:45:00 15:45:00 [facility] 2020-12-09 2020-12-09 Outpatient R ANYI [facility] [id number] Univers 11:15:00 11:15:00 ANYI [facility] 2020-11-07 2020-11-07 Outpatient R [facility] [id number] Univers 13:00:00 13:00:00 [facility] 2020-11-05 2020-11-05 Outpatient R HELENE [facility] [id number] Univers 15:45:00 15:45:00 [facility] 2020-11-04 2020-11-04 Outpatient R SARMAD [facility] [id number] Univers 14:00:00 14:00:00 [facility] 2020-10-28 2020-10-28 Outpatient R SARMAD [facility] [id number] Univers 13:30:00 13:30:00 [facility] 2020-10-17 2020-10-17 Outpatient R GT, [facility] [id number] Univers 10:45:00 10:45:00 WONDIFUL ity o f [facility] 2020-10-07 2020-10-07 Outpatient R SARMAD [facility] [id number] Univers 09:45:00 09:45:00 FRANKLYN ity [facility] 2020-09-12 2020-09-12 Outpatient R SARMAD [facility] [id number] Univers 09:30:00 09:30:00 FRANKLYN ity [facility] 2020-09-10 2020-09-10 Outpatient R DEDRA [facility] [id number] Univers 16:15:00 16:15:00 [facility]02 2020-09-02 Outpatient R GT, [facility] [id number] Univers 14:00:00 14:00:00 WONDIFUL ity o f [facility] 2020-08-30 2020-08-30 Outpatient R GT, [facility] [id number] Univers 16:00:00 16:00:00 WONDIFUL ity o f [facility] 2020-08-20 2020-08-20 Telephone Gt [facility] 1.2.840.114 [id number] 00:00:00 00:00:00 [facility] [id number] [place] [id number] Professio [phone] nal 044 Office Building One 2020-08-05 2020-08-05 Outpatient R SARMAD [facility] [id number] Univers 14:00:00 14:00:00 [facility] 2020-07-23 2020-07-23 Telephone Gt [facility] 1.2.840.114 [id number] 00:00:00 00:00:00 [facility] [id number] [place] [id number] Professio [phone] nal 044 Office Building One 2020-07-19 2020-07-19 [facility] [id number] Univers 11:00:00 11:00:00 WONDIFUL ity o f [facility] 2020-07-19 2020-07-19 [facility] 1.2.840.114 [id number] 08:01:11 10:21:48 Visit [facility] [id number] [place] [id number] [facility] [phone] nal 044 Office Building One 2020-07-19 2020-07-19 Outpatient R GT [facility] [id number] Univers 08:00:00 08:00:00 WONDIFUL ity o f [facility] 2020-05-10 2020-05-10 Outpatient R GT [facility] [id number] Univers 08:00:00 08:00:00 WONDIFUL ity o f [facility] 2020-05-09 2020-05-09 Outpatient R GT [facility] [id number] Univers 13:00:00 13:00:00 WONDIFUL ity o f [facility] 2020-04-29 2020-04-29 Outpatient R GT [facility] [id number] Univers 13:00:00 13:00:00 WONDIFUL ity o f [facility] 2020-04-19 2020-04-19 Outpatient R GT [facility] [id number] Univers 16:00:00 16:00:00 WONDIFUL ity o f [facility] 2020-04-16 2020-04-16 Outpatient R HELENE [facility] [id number] Univers 13:30:00 13:30:00 MARY tafoya [facility] 2020-04-02 2020-04-02 Outpatient R HELENE [facility] [id number] Univers 13:30:00 13:30:00 MARY tafoya [facility] 2020-03-21 2020-03-21 Outpatient R [facility] [id number] Univers 13:20:00 13:20:00 ity [facility] 2020-03-13 2020-03-13 Outpatient R GRAMM, [facility] [id number] Univers 13:30:00 13:30:00 KAYLIE michelet [facility] 2020-03-05 2020-03-05 Outpatient R HELENE [facility] [id number] Univers 14:00:00 14:00:00 MARY tafoya [facility] 2020-01-29 2020-01-29 Outpatient R GT [facility] [id number] Univers 10:00:00 10:00:00 WONDIFUL ity o f [facility] 2020-01-24 2020-01-24 Outpatient R HENRY, [facility] [id number] Univers 13:00:00 13:00:00 HEATHER tafoya [facility] 2020-01-18 2020-01-18 Outpatient R ELAINE [facility] [id number] Univers 13:15:00 13:15:00 HEATHER bonnie [facility] 2020-01-15 2020-01-15 Outpatient R ELINOR JIMENEZ [facility] [id number] Univers 14:30:00 14:30:00 ELINOR JIMENEZ michelet [facility] 2020-01-11 2020-01-11 Outpatient R ELAINE [facility] [id number] Univers 14:15:00 14:15:00 HEATHER [facility] 2019-12-19 2019-12-19 Outpatient R BIBI [facility] [id number] Univers 10:00:00 10:00:00 QIANGJUN ity o f [facility] 2019-12-13 2019-12-13 Outpatient R ELINOR JIMENEZ [facility] VLS [id number] Univers 07:19:00 09:45:00 ELINOR JIMENEZ michelet [facility] 2019-12-10 2019-12-10 Outpatient R AMADA [facility] [id number] Univers 16:00:00 16:00:00 ZARA michelet [facility] 2019-12-08 2019-12-08 Outpatient R GT [facility] [id number] Univers 16:15:00 16:15:00 WONDIFUL ity o f [facility] 2019-11-28 2019-11-28 Outpatient R ELINOR JIMENEZ [facility] [id number] Univers 13:30:00 13:30:00 ELINOR JIMENEZ michelet [facility] 2019-11-23 2019-11-23 Outpatient R HELENE [facility] [id number] Univers 10:30:00 10:30:00 MARY michelet [facility] 2019-11-06 2019-11-06 Outpatient R GT [facility] [id number] Univers 13:45:00 13:45:00 WONDIFUL ity o f [facility] 2019-10-31 2019-10-31 Outpatient Serjio NARAYAN [facility] [id number] Univers 12:29:42 23:59:00 MARY tafoya [facility] 2019-10-24 2019-10-24 Outpatient Serjio NARAYAN [facility] [id number] Univers 13:30:00 13:30:00 MARY tafoya [facility] 2019-09-20 2019-09-20 Outpatient Serjio NAIMA [facility] [id number] Univers 13:30:00 13:30:00 ORINELAN tafoya [facility] 2019-09-18 2019-09-18 Outpatient Serjio DEL REAL [facility] [id number] Univers 16:15:00 16:15:00 WONDIFUL ity o reji [facility] 2019-09-12 2019-09-12 Outpatient Serjio NARAYAN [facility] [id number] Univers 14:45:00 14:45:00 MARY bonnie [facility] 2019-09-08 2019-09-08 Outpatient Serjio DEL REAL [facility] [id number] Univers 11:15:00 11:15:00 WONDIFUL ity o reji [facility] 2018-10-03 2018-10-03 Outpatient Serjio DEL REAL [facility] [id number] Univers 12:17:25 14:32:00 WONDIFUL michelet mendoza [facility] Results Test Description Test Time Test Comments Results Result Comments Source POCT URINALYSIS, INSTRUMENT 2023-03-31 16:26:00 Test Item Value Reference Range Interpretation Comme nts POCT U SP GRAV (test code = 3255) 1.020 mg/dl 1.005-1.025 POCT PH U (test code = 3254) 5.5 mg/dl 5-8 POCT U LEUK EST (test code = 3263) neg Negative - Negative POCT U NIT (test code = 3262) neg Negative - Negative POCT U PROT (test code = 3259) neg Negative - Negative POCT U GLU (test code = 3256) neg Negative - Negative POCT U KETONE (test code = 3258) neg Negative - Negative POCT U UROBILI (test code = 3260) 0.2 mg/dl 0.2-1 POCT U BILI (test code = 3261) neg Negative - Negative POCT U BLD (test code = 3257) neg Negative - Negative POCT U COLOR (test code = 3266) yellow POCT U APPEAR (test code = 3267) clear [facility] URINALYSIS, [id number] 16:26:00 Test Item Value Reference Range Interpretation Comments POCT U SP GRAV (test code = 1.020 mg/dl 1.005-1.025 3255) POCT PH U (test code = 3254) 5.5 mg/dl 5-8 POCT U LEUK EST (test code = neg Negative - Negative 3263) POCT U NIT (test code = 3262) neg Negative - Negative POCT U PROT (test code = neg Negative - Negative 3259) POCT U GLU (test code = 3256) neg Negative - Negative POCT U KETONE (test code = neg Negative - Negative 3258) POCT U UROBILI (test code = 0.2 mg/dl 0.2-1 0) POCT U BILI (test code = neg Negative - Negative 3261) POCT U BLD (test code = 3257) neg Negative - Negative POCT U COLOR (test code = yellow 3266) POCT U APPEAR (test code = clear 3267) [facility] HEMOGLOBIN A1C [id number] 21:28:00 Test Item Value Reference Range Interpretation Comments POCT HBA1C (test code = 4548-4) 7.4 % 4-6 A Lab Interpretation (test code = Abnormal 27138-7) [facility] HEMOGLOBIN A1C [id number] 21:28:00 Test Item Value Reference Range Interpretation Comments POCT HBA1C (test code = 4548-4) 7.4 % 4-6 A Lab Interpretation (test code = Abnormal 18541-8) [facility] [id number] 22:33:13 Test Item Value Reference Range Interpretation Comments PSA (test code = 1.78 ng/mL <=4.00 9735372484) MARIO (test code = MARIO) Biotin has been reported to cause a negative bias, interpret results relative to patient's use of biotin. Lab Interpretation (test Normal code = 32708-6) [facility] ([id number])2022-12-04 22:06:27 Test Item Value Reference Range Interpretation Comments NA (test code = 139 mmol/L 135-145 0093688951) K (test code = 4.7 mmol/L 3.5-5.0 2855937791) CL (test code = 104 mmol/L 98-108 8021995989) CO2 TOTAL (test code = 25 mmol/L 23-31 2568767604) AGAP (test code = 10 2-16 2911249312) BUN (test code = 22 mg/dL 7-23 9619856246) GLUCOSE (test code = 154 mg/dL 70-110 H 4243456361) CREATININE (test code = 0.83 mg/dL 0.60-1.25 2447216097) TOTAL BILI (test code = 0.6 mg/dL 0.1-1.3 5078749328) CALCIUM (test code = 9.6 mg/dL 8.6-10.6 4131411860) T PROTEIN (test code = 6.8 g/dL 6.3-8.2 0214172945) ALBUMIN (test code = 4.2 g/dL 3.5-5.0 4030322536) ALK PHOS (test code = 56 U/L 34-122 0448297708) ALTv (test code = 22 U/L 5-50 1742-6) AST(SGOT) (test code = 21 U/L 13-40 4809306370) eGFR (test code = 88.7 mL/min/1.73m2 7835333098) MARIO (test code = MARIO) Association of [...] tests). Lab Interpretation Abnormal (test code = 51665-3) [facility]. METABOLIC PANEL ([id number])2022-12-04 22:06:27 Test Item Value Reference Range Interpretation Comments NA (test code = 139 mmol/L 135-145 6265434752) K (test code = 4.7 mmol/L 3.5-5.0 4869997455) CL (test code = 104 mmol/L 98-108 5036940277) CO2 TOTAL (test code = 25 mmol/L 23-31 5111355597) AGAP (test code = 10 2-16 2907710063) BUN (test code = 22 mg/dL 7-23 5401767781) GLUCOSE (test code = 154 mg/dL 70-110 H 4157841080) CREATININE (test code = 0.83 mg/dL 0.60-1.25 6132529211) TOTAL BILI (test code = 0.6 mg/dL 0.1-1.0 0710875460) CALCIUM (test code = 9.6 mg/dL 8.6-10.6 0015555800) T PROTEIN (test code = 6.8 g/dL 6.3-8.2 4021808455) ALBUMIN (test code = 4.2 g/dL 3.5-5.0 2273064056) ALK PHOS (test code = 56 U/L 34-122 5484378172) ALTv (test code = 22 U/L 5-50 1742-6) AST(SGOT) (test code = 21 U/L 13-40 8601485138) eGFR (test code = 88.7 mL/min/1.73m2 4206418370) MARIO (test code = MARIO) Association of [...] tests). Lab Interpretation Abnormal (test code = 22063-7) [facility]2022-12-04 21:40:39 Test Item Value Reference Range Interpretation Comments HGB A1C (test code = 7.3 % 4.0-5.7 H 4548-4) MARIO (test code = MARIO) Reference RangesNormal: <5.7%Prediabetes: 5.7 - 6.4%Diabetes: > 6.5% Lab Interpretation (test Abnormal code = 68345-3) [facility] ([id number])2022-09-18 19:43:39 Test Item Value Reference Range Interpretation Comments NA (test code = 139 mmol/L 135-145 9956490195) K (test code = 4.8 mmol/L 3.5-5.0 1545893074) CL (test code = 104 mmol/L 98-108 8346774291) CO2 TOTAL (test code = 27 mmol/L 23-31 1972252241) AGAP (test code = 8 2-16 5622149742) BUN (test code = 20 mg/dL 7-23 4834972801) GLUCOSE (test code = 148 mg/dL 70-110 H 3592058973) CREATININE (test code = 0.84 mg/dL 0.60-1.25 0790072116) TOTAL BILI (test code = 0.7 mg/dL 0.1-1.2 7947022599) CALCIUM (test code = 9.2 mg/dL 8.6-10.6 3250450992) T PROTEIN (test code = 6.8 g/dL 6.3-8.2 9781323420) ALBUMIN (test code = 4.1 g/dL 3.5-5.0 4097350603) ALK PHOS (test code = 50 U/L 34-122 5131102913) ALTv (test code = 19 U/L 5-50 1742-6) AST(SGOT) (test code = 20 U/L 13-40 2999336978) eGFR (test code = 87.5 mL/min/1.73m2 0275308817) MARIO (test code = MARIO) Association of [...] tests). Lab Interpretation Abnormal (test code = 38458-6) [facility]. METABOLIC PANEL ([id number])2022-09-18 19:43:39 Test Item Value Reference Range Interpretation Comments NA (test code = 139 mmol/L 135-145 6311022995) K (test code = 4.8 mmol/L 3.5-5.0 7692109743) CL (test code = 104 mmol/L 98-108 3517160324) CO2 TOTAL (test code = 27 mmol/L 23-31 9575860590) AGAP (test code = 8 2-16 7107724476) BUN (test code = 20 mg/dL 7-23 4802373265) GLUCOSE (test code = 148 mg/dL 70-110 H 8510411809) CREATININE (test code = 0.84 mg/dL 0.60-1.25 7605668691) TOTAL BILI (test code = 0.7 mg/dL 0.1-1.8 6483786673) CALCIUM (test code = 9.2 mg/dL 8.6-10.6 4267217223) T PROTEIN (test code = 6.8 g/dL 6.3-8.2 4169785459) ALBUMIN (test code = 4.1 g/dL 3.5-5.0 7613845754) ALK PHOS (test code = 50 U/L 34-122 1278406513) ALTv (test code = 19 U/L 5-50 1742-6) AST(SGOT) (test code = 20 U/L 13-40 0259546783) eGFR (test code = 87.5 mL/min/1.73m2 6787597668) MARIO (test code = MARIO) Association of [...] tests). Lab Interpretation Abnormal (test code = 02841-5) [facility] WITH [id number] 19:10:29 Test Item Value Reference Range Interpretation Comments WBC (test code = 6.31 See_Comment [Automated message] 6890-2) The system [employer] generated this result transmitted ref erence range: 4.20 - 1 0.70 10*3/?L. The re ference range was not u sed to interpret this result as normal/abnor mal. RBC (test code = 4.93 See_Comment [Automated message] 519-8) The system [employer] generated this result transmitted ref erence range: 4.26 - 5 .52 10*6/?L. The re ference range was not u sed to interpret this result as normal/abnor mal. HGB (test code = 14.6 g/dL 12.2-16.4 478-7) HCT (test code = 44.9 % 38.4-49.3 4544-3) MCV (test code = 91.1 fL 81.7-95.6 787-2) MCH (test code = 29.6 pg 26.1-32.7 785-6) MCHC (test code = 32.5 g/dL 31.2-35.0 786-4) RDW-SD (test code 48.5 fL 38.5-51.6 = 78017-2) RDW-CV (test code 14.5 % 12.1-15.4 = 788-0) PLT (test code = 258 See_Comment [Automated message] 777-3) The system whic h generated this result transmitted ref erence range: 150 - 32 8 10*3/?L. The re ference range was not u sed to interpret this result as normal/abnor mal. MPV (test code = 10.5 fL 9.8-13.0 31446-9) NRBC/100 WBC (test 0.0 See_Comment [Automat ed message] code = 3168644711) The syste m which generated this result transmitted ref erence range: 0.0 - 10 .0 /100 WBCs. The refer ence range was not u sed to interpret this result as normal/abnor mal. NRBC x10^3 (test See_Comment [Automated message] code = 6763466864) The syste m which generated this result transmitted ref erence range: 10*3/?L. The reference range was not used to interpr et this result as normal/abnormal . GRAN MAT (NEUT) % 58.2 % (test code = 770-8) IMM GRAN % (test 0.20 % code = 0485232355) LYMPH % (test code 26.0 % = 736-9) MONO % (test code 11.3 % = 5905-5) EOS % (test code = 3.3 % 713-8) BASO % (test code 1.0 % = 706-2) GRAN MAT 3.68 10*3/uL 1.99-6.95 x10^3(ANC) (test code = 7738593900) IMM GRAN x10^3 0.00-0.06 (test code = 7556325797) LYMPH x10^3 (test 1.64 10*3/uL 1.09-3.23 code = 731-0) MONO x10^3 (test 0.71 10*3/uL 0.36-1.02 code = 742-7) EOS x10^3 (test 0.21 10*3/uL 0.06-0.53 code = 711-2) BASO x10^3 (test 0.06 10*3/uL 0.01-0.09 code = 704-7) [facility] WITH [id number] 19:10:29 Test Item Value Reference Range Interpretation Comments WBC (test code = 6.31 See_Comment [Automated message] 5261-2) The system [employer] generated this result transmitted ref erence range: 4.20 - 1 0.70 10*3/?L. The re ference range was not u sed to interpret this result as normal/abnor mal. RBC (test code = 4.93 See_Comment [Automated message] 729-8) The system [employer] generated this result transmitted ref erence range: [...] RDW-SD (test code 48.5 fL 38.5-51.6 = 91991-9) RDW-CV (test code 14.5 % 12.1-15.4 = 788-0) PLT (test code = 258 See_Comment [Automated message] 997-3) The system [employer] generated this result transmitted ref erence range: 150 - 32 8 10*3/?L. The re ference range was not u sed to interpret this result as normal/abnor mal. MPV (test code = 10.5 fL 9.8-13.0 11801-8) NRBC/100 WBC (test 0.0 See_Comment [Automat ed message] code = 4508518368) The syste m which generated this result transmitted ref erence range: 0.0 - 10 .0 /100 WBCs. The refer ence range was not u sed to interpret this result as normal/abnor mal. NRBC x10^3 (test See_Comment [Automated message] code = 6877492444) The syste m which generated this result transmitted ref erence range: 10*3/?L. The reference range was not used to interpr et this result as normal/abnormal . GRAN MAT (NEUT) % 58.2 % (test code = 770-8) IMM GRAN % (test 0.20 % code = 1389252564) LYMPH % (test code 26.0 % = 736-9) MONO % (test code 11.3 % = 5905-5) EOS % (test code = 3.3 % 713-8) BASO % (test code 1.0 % = 706-2) GRAN MAT 3.68 10*3/uL 1.99-6.95 x10^3(ANC) (test code = 1922189649) IMM GRAN x10^3 0.00-0.06 (test code = 6724585593) LYMPH x10^3 (test 1.64 10*3/uL 1.09-3.23 code = 731-0) MONO x10^3 (test 0.71 10*3/uL 0.36-1.02 code = 742-7) EOS x10^3 (test 0.21 10*3/uL 0.06-0.53 code = 711-2) BASO x10^3 (test 0.06 10*3/uL 0.01-0.09 code = 704-7) [facility] SARS-COV-2 ANTIGEN (BINAX NOW)2022-05-19 22:25:00 Test Item Value Reference Range Interpretation Comments POCT SARS-COV-2 ANTIGEN Not Detected Not Detected (test code = 50019-2) On board controls Yes acceptable with C Line (test code = 3574) MARIO (test code = MARIO) accurate development and interpretation of all internal controls Lab Interpretation Normal (test code = 84448-7) [facility] URINALYSIS, [id number] 18:16:00 Test Item Value Reference Range Interpretation [...] U APPEAR (test code = clear 3267) [facility] URINALYSIS, [id number] 18:16:00 Test Item Value Reference Range Interpretation [...] U APPEAR (test code = clear 3267) [facility] [id number] 13:34:00 Test Item Value Reference Range Interpretation [...] U APPEAR (test code = Clear 3267) [facility] [id number] 13:34:00 Test Item Value Reference Range Interpretation [...] U APPEAR (test code = Clear 3267) [facility]
[2023-04-14 14:49] LABS: Absolute Lymphocytes (CBC) 2.2 K/uL (0.7-4.9); Hematocrit 42.4 % (39.6-49.0); Lymphocytes % 21.8 % (15.3-44.8); MCV 92.5 fL (80-100); MPV 8.4 fL (7.6-11.3); Platelets 266 thou/uL (152-406); RBC Red Blood Cell Count 4.58 M/uL (4.33-5.43)
[2023-04-14] MEDS ORDERED: NA CHLORIDE 0.9% 1,000 ML ONE (15:03)
[2023-04-14 15:17] LABS: Potassium 3.9 mEq/L (3.5-5.1); Troponin High Sensitivity 6.2 pg/mL (<58.9)
--- NOTE | 2023-04-14 15:21 | RAD REPORT ---
EXAM DESCRIPTION: RAD - Chest Single View - 04/14/2023 3:11 pm CLINICAL HISTORY: SOB Chest pain. COMPARISON: Chest Single View dated 02/14/2023; Chest Single View dated 11/12/2022; Chest Single View dated 07/27/2022; Chest Single View dated 04/26/2021 FINDINGS: Portable technique limits examination quality. Mild interstitial pulmonary edema. The heart is moderately enlarged in size. No displaced fractures.C ervical hardware plate. IMPRESSION: Mild CHF
[2023-04-14 16:27] LABS: Specific Gravity 1.018 (1.005-1.030); Urine Bilirubin NEGATIVE (Negative); Urine Blood Negative (Negative); Urine Clarity Clear (Clear); Urine Color Light-Yellow (Yellow); Urine Glucose NEGATIVE (Negative); Urine Protein NEGATIVE (Negative); Urine Urobilinogen Normal (Normal)
--- NOTE | 2023-04-14 16:53 | ER ---
Nurse's Notes [facility] Name: Dave Moreland Age: 83 yrs Sex: Male : 1940 Arrival Date: 04/14/2023 Time: 13:59 Bed 14 Private MD: Diagnosis: Weakness Presentation: 04/14 14:11 Chief complaint: Patient states: Dizzy, nausea, weak for 2-3 days. No fever. ll1 Coronavirus screen: Vaccine status: Patient reports receiving the 2nd dose of the covid vaccine. Client denies travel out of the [place] in the last 14 days. fatigue, muscle pain, nausea, Client presents with at least one sign or symptom that may indicate coronavirus-19. Standard/surgical mask placed on the client. Ebola Screen: Patient denies travel to an Ebola-affected area in the 21 days before illness onset. No acute neurological deficit is noted. Initial Sepsis Screen: Does the patient meet any 2 criteria? No. Patient's initial sepsis screen is negative. Does the patient have a suspected source of infection? No. Patient's initial sepsis screen is negative. Risk Assessment: Do you want to hurt yourself or someone else? Patient reports no desire to harm self or others. Onset of symptoms was April 12, 2023. 14:11 Method Of Arrival: Ambulatory ll1 14:11 Acuity: CLARK 3 ll1 Stroke Activation: Symptom onset > 6 hours Physician: Stroke Attending; Name: ; Notified At: ; Arrived At: Physician: Chief Stroke Resident; Name: ; Notified At: ; Arrived At: Physician: Stroke Resident; Name: ; Notified At: ; Arrived At: Physician: ED Attending; Name: ; Notified At: ; Arrived At: Physician: ED Resident; Name: ; Notified At: ; Arrived At: Historical: - Allergies: 14:04 Codeine; ll1 - PMHx: 14:04 Atrial fibrillation; Diabetes - NIDDM; GERD; Hyperlipidemia; Hypertension; Myocardial ll1 infarction; prostate problems; - PSHx: 14:04 cardiac stent x 7; Cholecystectomy; ll1 - Immunization history:: Adult Immunizations up to date. - Social history:: Smoking status: Patient denies any tobacco usage or history of. Screenin:46 [facility] ED Fall Risk Assessment (Adult) Score/Fall Risk Level 0 - 2 = Low Risk nj1 Oriented to surroundings, Maintained a safe environment, Hourly rounding (assess needs \T\ fall precautionary measures) done, Used ambulatory aids as needed (educated on \T\ assisted with). Abuse screen: Denies threats or abuse. Denies injuries from another. Nutritional screening: No deficits noted. Tuberculosis screening: No symptoms or risk factors identified. Assessment: 14:30 General: Appears in no apparent distress. comfortable, Behavior is calm, cooperative, nj1 appropriate for age. 14:30 Pain: Denies pain. Neuro: Level of Consciousness is awake, alert, obeys commands, nj1 Oriented to person, place, time, situation, Speech is normal, Facial symmetry appears normal, Reports weakness generalized for the last 2-3 days. Cardiovascular: Patient's skin is warm and dry. Rhythm is irregular. Respiratory: Airway is patent Respiratory effort is even, unlabored. 15:20 Reassessment: Patient appears in no apparent distress at this time. Patient and/or nj1 family updated on plan of care and expected duration. Pain level reassessed. Patient is alert, oriented x 3, equal unlabored respirations, skin warm/dry/pink. 16:15 Reassessment: Patient appears in no apparent distress at this time. Patient and/or nj1 family updated on plan of care and expected duration. Pain level reassessed. Patient is alert, oriented x 3, equal unlabored respirations, skin warm/dry/pink. Patient states feeling better. 17:15 Reassessment: Patient appears in no apparent distress at this time. Patient and/or nj1 family updated on plan of care and expected duration. Pain level reassessed. Patient is alert, oriented x 3, equal unlabored respirations, skin warm/dry/pink. Patient states feeling better. Vital Signs: 14:11 BP 118 / 79; Pulse 81; Resp 17; Temp 97.3; Pulse Ox 99% ; Pain 8/10; ll1 15:15 BP 121 / 85; Pulse 67; Resp 21; Pulse Ox 99% ; nj1 16:15 BP 131 / 91; Pulse 67; Resp 18; Pulse Ox 100% on R/A; nj1 17:15 BP 133 / 89; Pulse 73; Resp 18; Pulse Ox 99% on R/A; nj1 14:11 Pain Scale: Adult ll1 ED Course: 14:03 Patient arrived in ED. mr 14:04 Arm band placed on Patient placed in an exam room, on a stretcher. ll1 14:06 Noe Gonzalez MD is Attending Physician. ec2 14:07 Faiza Sherman, RN is Primary Nurse. nj1 14:12 Triage completed. ll1 14:35 Inserted saline lock: 20 gauge in right forearm, using aseptic technique. Blood nj1 collected. 14:46 Patient has correct armband on for positive identification. Allergy band placed. Bed in nj1 low position. Call light in reach. Adult w/ patient. Provided Education on: call light, fall precautions. 15:13 XRAY Chest (1 view) In Process Unspecified. EDMS 17:40 No provider procedures requiring assistance completed. IV discontinued, intact, nj1 bleeding controlled. Administered Medications: 15:05 Drug: NS 0.9% IV 1000 ml IV at 1 bolus Per protocol; 1000 mL bolus Route: IV; Rate: 1 nj1 bolus; Site: right forearm; 16:15 Follow up: Response: No adverse reaction; IV Status: Completed infusion; IV Intake: nj1 1000ml Medication: 14:46 VIS not applicable for this client. nj1 Intake: 16:15 IV: 1000ml; Total: 1000ml. nj1 Outcome: 16:52 Discharge ordered by . ec2 17:40 Discharged to home ambulatory, with family, nj1 17:40 Condition: stable 17:40 Discharge instructions given to patient, Instructed on discharge instructions, follow up and referral plans. safety practices, Demonstrated understanding of instructions, follow-up care, 17:47 Patient left the ED. nj1 Signatures: Dispatcher [employer] EDPR Kyra Rowe, Reg Reg Sara Kaplan, RN RN 1 Faiza Sherman, RN RN nj1 Noe Gonzalez MD MD ec2
--- NOTE | 2023-04-14 16:53 | EDPHYS ---
Physician Documentation [facility] Name: Dave Moreland Age: 83 yrs Sex: Male : 1940 Arrival Date: 04/14/2023 Time: 13:59 Bed 14 Private MD: ED Physician Noe Gonzalez HPI: 04/14 14:17 This 83 yrs old Male presents to ER via Ambulatory with complaints of ec2 Weakness. 14:17 Patient arrives today due to concern for generalized weakness. Patient reports for the ec2 past 2 days he has been having issues with fatigue and not wanting to get out of bed. No fevers or chills, no nausea or vomiting. Patient denies any abdominal pain. Patient reports no difficulty breathing or shortness of breath, denies any cough or cold symptoms. Patient also suffers from chronic dizziness which is unchanged from his baseline. Patient states that he did have a fall several days ago.. Historical: - Allergies: 14:04 Codeine; ll1 - PMHx: 14:04 Atrial fibrillation; Diabetes - NIDDM; GERD; Hyperlipidemia; Hypertension; Myocardial ll1 infarction; prostate problems; - PSHx: 14:04 cardiac stent x 7; Cholecystectomy; ll1 - Immunization history:: Adult Immunizations up to date. - Social history:: Smoking status: Patient denies any tobacco usage or history of. ROS: 14:17 Constitutional: as per hpi ec2 Exam: 14:17 Constitutional: GEN: NAD Head: atraumatic Eyes: EOMI Ears: External ears are ec2 normal. CV: regular rate LUNGS: no respiratory distress ABD: non-distended, soft, nontender, no guarding, not rigid SKIN: no evidence of rashes MSK: no evidence of trauma NEURO: moves all extremities equally, cranial nerves II through XII intact, strength intact in all 4 extremities Vital Signs: 14:11 BP 118 / 79; Pulse 81; Resp 17; Temp 97.3; Pulse Ox 99% ; Pain 8/10; ll1 15:15 BP 121 / 85; Pulse 67; Resp 21; Pulse Ox 99% ; nj1 16:15 BP 131 / 91; Pulse 67; Resp 18; Pulse Ox 100% on R/A; nj1 17:15 BP 133 / 89; Pulse 73; Resp 18; Pulse Ox 99% on R/A; nj1 14:11 Pain Scale: Adult ll1 MDM: 14:07 Patient medically screened. ec2 14:17 ED course: Patient arrives today due to concern for generalized weakness. Examination ec2 remarkable for well-appearing neuro intact individual is otherwise in no acute distress with reassuring abdominal exam and reassuring vital signs. Will obtain lab work, urine studies, chest x-ray as well as CT scan of the head. Currently considering process such as intracranial brain bleed, arrhythmia, electrolyte disturbances, ACS, UTI.. 14:45 ED course: EKG independently reviewed and interpreted by me, shows atrial flutter with ec2 variable conduction, rate of 75, no acute ST segment elevations, intervals are nonconcerning.. 15:21 ED course: Metabolic profile with appropriate electrolytes and renal function. Troponin ec2 within normal ranges, negative COVID testing. CBC reassuring . 15:22 ED course: Chest x-ray shows no acute abnormality, mild interstitial edema noted. ec2 Cardiomegaly noted. . 16:33 ED course: Urine is noninfectious appearing. On reexamination patient is well-appearing ec2 no acute distress with reassuring vital signs. Ultimately I have no emergent process identified on my work-up or examination to warrant inpatient admission at this time. Will discharge home have follow-up with a primary care doctor. Additionally regards to the patient's dizziness, he states its been a longstanding issue for many years and I do not feel patient requires emergent work-up at this time as have a low clinical suspicion for an acute stroke causing the patient's symptoms today. 16:57 Data reviewed: vital signs. ec2 04/14 14:17 Order name: Basic Metabolic Panel; Complete Time: 15:20 ec2 04/14 14:17 Order name: CBC with Diff; Complete Time: 15:07 ec2 04/14 14:17 Order name: Troponin HS; Complete Time: 15:20 ec2 04/14 14:17 Order name: Urinalysis w/ reflexes; Complete Time: 16:31 ec2 04/14 14:17 Order name: COVID-19 SARS RT PCR; Complete Time: 15:20 ec2 04/14 14:17 Order name: Influenza Screen (a \T\ B); Complete Time: 15:07 ec2 04/14 14:17 Order name: XRAY Chest (1 view); Complete Time: 15:22 ec2 04/14 14:17 Order name: EKG; Complete Time: 14:17 ec2 04/14 14:17 Order name: Cardiac monitoring; Complete Time: 14:44 ec2 04/14 14:17 Order name: EKG - Nurse/Tech; Complete Time: 14:44 ec2 04/14 14:17 Order name: IV Saline Lock; Complete Time: 14:44 ec2 04/14 14:17 Order name: Labs collected and sent; Complete Time: 14:44 ec2 04/14 14:17 Order name: O2 Per Protocol; Complete Time: 14:44 ec2 04/14 14:17 Order name: O2 Sat Monitoring; Complete Time: 14:44 ec2 Administered Medications: 15:05 Drug: NS 0.9% IV 1000 ml IV at 1 bolus Per protocol; 1000 mL bolus Route: IV; Rate: 1 nj1 bolus; Site: right forearm; 16:15 Follow up: Response: No adverse reaction; IV Status: Completed infusion; IV Intake: nj1 1000ml Disposition Summary: 04/14/23 16:52 Discharge Ordered Notes: Location: Home ec2 Condition: Stable ec2 Diagnosis - Weakness ec2 Discharge Instructions: - Discharge Summary Sheet ec2 - Weakness ec2 Forms: - Medication Reconciliation Form ec2 - Thank You Letter ec2 - Antibiotic Education ec2 - Prescription Opioid Use ec2 - Patient Portal Instructions ec2 - Leadership Thank You Letter ec2 Signatures: Dispatcher [employer] Sara Crum RN RN ll1 Faiza Sherman RN RN nj1 Noe Gonzalez MD MD ec2 Corrections: (The following items were deleted from the chart) 14:20 14:17 Patient arrives today due to concern for generalized weakness. Patient reports ec2 for the past 2 days he has been having issues with fatigue and not wanting to get out of bed. No fevers or chills, no nausea or vomiting. Patient denies any abdominal pain. Patient reports no difficulty breathing or shortness of breath, denies any cough or cold symptoms.. ec2
--- NOTE | 2023-04-15 07:59 | EKG ---
Test Date: 2023-04-14 Test Time: 14:41:11 Cutter Operator Tile: [place] MEASUREMENT RESULTS: Intervals: Rate: 75 IA: QRSD: 94 QT: 386 QTc: 431 [place]: P: IA: QRS: -68 T: 53 INTERPRETIVE STATEMENTS: Atrial fibrillation Left axis deviation Inferior infarct, age undetermined Abnormal ECG Compared to ECG 02/14/2023 09:39:40 Incomplete right bundle-branch block no longer present Myocardial infarct finding still present Electronically Signed On 04-15-23 07:57:18 CDT by Juan Manuel Cruz
[2023-04-15 16:02] VITALS: BP 133/89; TEMP 97.3; O2SAT 99
== END 2023-04-14 17:47 | disposition home or self-care (01) ==
LOC: ER 13:59
DX: R53.1 Weakness (principal); R53.83 Other fatigue; I10 Essential (primary) hypertension; I48.91 Unspecified atrial fibrillation; E11.9 Type 2 diabetes mellitus without complications; Z20.822 Contact with and (suspected) exposure to COVID-19; Z95.818 Presence of other cardiac implants and grafts; Z88.5 Allergy status to narcotic agent
CPT/HCPCS: 85025; 80048; 36415; 81003; 84484; 87635; 87804 ×2; 71045; J7030; 93005

== ENCOUNTER 2023-11-30 11:12 | Emergency (ER) | payer OTHER ==
--- OUTSIDE RECORDS SUMMARY | 2023-11-30 11:24 | XMS REPORT | Continuity of Care Document ---
Author Name Unknown Address [address] [facility] [address] [place] [address] [facility] Address [address] [facility] [address] [place] [address] Care Team Providers Care Emblem Drawer In Name Role Phone EVELIN COLMENARES Primary Care Physician Unavailab FRANKLYN Adams Attending Clinician Unavailable MELITA, KAMRAN K.HEricka Attending Clinician UnavailMARY Miramontes Attending Clinician Unavailable KIMBERLEY YAO Attending Clinician Unavailable BEBE PAINTING Attending Clinician UnavailEVELIN Kendrick Attending Clinician Unavailable Melita FOX, Kamran K.HEricka Attending Clinician + [phone] Lab, Ang - Db Attending Clinician Unavailable Kimberley Beatty Attending Clinician [phone] Evelin Wyatt Attending Clinician [phone] Chana Anna MD Attending Clinician CHANA ANNA Attending Clinician Joana vailable Unknown, Attending Attending Clinician Unavailab LIBORIO Reyna Attending Clinician Unavailable MEET LUDWIG Attending Clinician Unavailable MEET LUDWIG Attending Clinician Unavailable Martha Colorado OT Attending Clinician Unavail able Liborio Ceballos MD Attending Clinician [phone] KAYLIE HUA Attending Clinician Unavailable Doctor Unassigned, [place] Attending Clinician U noemi Scherer MD, [place] Attending Clinician [phone] Kaylie Hua MD Attending Clinician [phone] Franklyn Bañuelos MD Attending Clinician [phone] Bebe Dodd Attending Clinician [phone] Heather Henry MD Attending Clinician [phone] HEATHER HENRY Attending Clinician UnavailHEATHER [place] Attending Clinician UnavailALCON Kowalski Attending Clinician Unavailable Alcon Oliva DO Attending Clinician [phone] ROWDY ENRIQUE Attending Clinician Unavailable Rowdy Germain Attending Clinician [phone] Marline ROLLING MILL OPERATOR, Jayden S Attending Clinician UnaJAVIER Morrow Attending Clinician Unavailable Javier Valetnine S Attending Clinician [phone] Kenn Christine MD Attending Clinician [phone] Pob, [facility] Lab Main Attending Clinician UnavailFADUMO aBez Attending Clinician Unavailable Samantha FOX, Fadumo Hilario Attending Clinician [phone] HALEY CAMEJO Attending Clinician Unavailable Haley Camejo MD Attending Clinician [phone] Gt FOX, Nehal Addison Attending Clinician + [phone] , [facility] Surg Spec Procedure Attending Clinician Unavailable Nurse, [facility] Surgery Gu Attending Clinician Elinor Daley MD Attending Clinician ELINOR JIMENEZ Attending Clinician Unavail ELINOR Zimmer Attending Clinician Unavail GEE Alfonso Attending Clinician Unavail GEE Alfonso Attending Clinician Unavail danielle Blount MD, Gee Stokes Attending Clinician [phone] EbLuz Maria Arriaga Attending Clinician [phone] LUZ MAIRA BERRY Attending Clinician Unavailable Tamera Díaz Attending Clinician RADIOLOGY Attending Clinician Unavailable TAMERA CARTER Attending Clinician Unavailmacho Newton RN, Km Addison Attending Clinician Unavail able PONCHO DENNEY Attending Clinician Unav ailable PONCHO DENNEY Attending Clinician Unav ailable Fely PACJorge Attending Clinician [phone] NESTOR SALDAÑA III Attending Clinician UnavailNEHAL Medina Attending Clinician Unavaila ble GISSELLE DURHAM Attending Clinician Unavailab nicole Jim MD, Karlie Attending Clinician [phone] FLORENTIN THAPA Attending Clinician Unavailable [place] PICKING MACHINE OPERATOR, Florentin B Attending Clinician [phone], [facility] Attending Clinician Un available Shyanne Bland MD Attending Clinician + [phone] SHYANNE BLAND Attending Clinician Unavaila SHYANNE Mukherjee Attending Clinician Unavaila ble Tech, [facility] Attending Clinician Unavaila ble Only, [facility] Test Attending Clinician Unavailable ACE BROWN Attending Clinician Unavailable Ace Hansen Attending Clinician [phone] KARLIE JIM Attending Clinician Unavailable CHUCKIE SHEEHAN Attending Clinician Unavailable ANYI DE SANTIAGO Attending Clinician UnavailKAYLIE Castañeda Attending Clinician Unavailable CINDY MTZ Attending Clinician Unavailable ZARA YBARRA Attending Clinician Unavailable ORIN MCNAMARA Attending Clinician Unavailable FRANKLYN BAÑUELOS Admitting Clinician Unavailable KAMRAN HUA K.HEricka Admitting Clinician Unavaila ble MARY NARAYAN Admitting Clinician Unavailable ALCON OLIVA Admitting Clinician Unavailable JAVIER MORRIS Admitting Clinician Unavailable Melita FOX, Sendteodoro K.H. Admitting Clinician + [phone] PONCHO DENNEY Admitting Clinician Unav FLORENTIN Saez Admitting Clinician Unavailable ELINOR JIMENEZ Admitting Clinician Unavail able NEHAL DEL REAL Admitting Clinician Unavaila marjorie Payers Payer Name Policy Type Policy Number Effective Date Expirati on Date Source MEDICARE PART A \\T\\ B [id number] 2004 00:00:00 [facility] [id number] 2016 00:00:00 Problems Condition Name Condition Details Condition Category Status Onset Date Resolution Date Last Treatment Date Treating Clinician Comments Source Constipati on due to slow transit Constipati on due to slow transit Disease Active 2022-06 0- 00:00: 00 [facility] Fissure in ano Fissure in ano Disease Active 2022-06 0- 00:00: 00 [facility] Urinary frequency Urinary frequency Disease Active 4 00:00: 00 Overview: Formattin g of this note might be different from the original. Added automatic ally from request for surgery [id number] [facility] Benign prostatic hyperplasi a with lower urinary tract symptoms, symptom details unspecifie d Benign prostatic hyperplasi a with lower urinary tract symptoms, symptom details unspecifie d Disease Active 09-29 00:00: 00 Overview: Formattin g of this note might be different from the original. Added automatic ally from request for surgery [id number] [facility] Dyslipidem ia Dyslipidem ia Disease Active 11-18 00:00: 00 Overview: Formattin g of this note might be different from the original. Added automatic ally from request for surgery [id number] [facility] RAZO (dyspnea on exertion) RAZO (dyspnea on exertion) Disease Active 11-18 00:00: 00 Overview: Formattin g of this note might be different from the original. Added automatic ally from request for surgery [id number] [facility] Atypical chest pain Atypical chest pain Disease Active 11-18 00:00: 00 Overview: Formattin g of this note might be different from the original. Added automatic ally from request for surgery [id number] [facility] Anginal equivalent Anginal equivalent Disease Active 11-18 00:00: 00 Overview: Formattin g of this note might be different from the original. Added automatic ally from request for surgery [id number] [facility] Acute cardioembo lic stroke Acute cardioembo lic stroke Disease Active 3- 00:00: 00 [facility] PRITESH (obstructi ve sleep apnea) PRITESH (obstructi ve sleep apnea) Disease Active 2020-06 2-13 00:00: 00 [facility] Iron deficiency Iron deficiency Disease Active 2020-06 1-22 00:00: 00 [facility] Osteoarthr itis of left shoulder Osteoarthr itis of left shoulder Disease Active 2020-06 1-16 00:00: 00 [facility] Inguinal hernia Inguinal hernia Disease Active - 00:00: 00 [facility] Non-recurr ent bilateral inguinal hernia without obstructio n or gangrene Non-recurr ent bilateral inguinal hernia without obstructio n or gangrene Disease Active 11-11 00:00: 00 Overview: Formattin g of this note might be different from the original. Added automatic ally from request for surgery [id number] [facility] Acute pancreatit is Acute pancreatit is Disease Active 3- 00:00: 00 [facility] COVID-19 COVID-19 Disease Active 2-01 00:00: 00 [facility] Greater trochanter ic bursitis of left hip Greater trochanter ic bursitis of left hip Disease Active 11-27 00:00: 00 Overview: Formattin g of this note might be different from the original. Added automatic ally from request for surgery [id number] [facility] SI (sacroilia c) joint dysfunctio n SI (sacroilia c) joint dysfunctio n Disease Active 11-27 00:00: 00 Overview: Formattin g of this note might be different from the original. Added automatic ally from request for surgery [id number] [facility] Onychomyco sis of toenail Onychomyco sis of toenail Disease Active 2018-06 2-15 00:00: 00 [facility] Lumbar spondylosi s Lumbar spondylosi s Disease Active 7-02 00:00: 00 [facility] Degenerati on of lumbar interverte bral disc Degenerati on of lumbar interverte bral disc Disease Active 6- 00:00: 00 [facility] Lumbar radiculopa thy Lumbar radiculopa thy Disease Active 6 00:00: 00 [facility] Myofascial pain Myofascial pain Disease Active 6 00:00: 00 [facility] Elevated sed rate Elevated sed rate Disease Active 10-05 00:00: 00 [facility] Low ferritin Low ferritin Disease Active 09-14 00:00: 00 [facility] Controlled type 2 diabetes mellitus with complicati on, with long-term current use of insulin Controlled type 2 diabetes mellitus with complicati on, with long-term current use of insulin Disease Active 07-07 00:00: 00 [facility] Controlled type 2 diabetes mellitus with complicati on, with long-term current use of insulin Controlled type 2 diabetes mellitus with complicati on, with long-term current use of insulin Disease Active 07-07 00:00: 00 [facility] Bradycardi a Bradycardi a Disease Active 2017-06 00:00: 00 [facility] Weakness Weakness Disease Active 2017-06 00:00: 00 [facility] Dizziness Dizziness Disease Active 2017-06 00:00: 00 [facility] Coronary artery disease involving naknek coronary artery of naknek heart without angina pectoris Coronary artery disease involving n[place] coronary artery of [place] heart without angina pectoris Disease Active 2017-06 00:00: 00 [facility] Essential hypertensi on Essential hypertensi on Disease Active 2017-06 00:00: 00 [facility] PAF (paroxysma l atrial fibrillati on) PAF (paroxysma l atrial fibrillati on) Disease Active 2017-06 00:00: 00 [facility] Coronary artery disease involving n[place] coronary artery of [place] heart without angina pectoris Coronary artery disease involving naknek coronary artery of [place] heart without angina pectoris Disease Active 2017-06 00:00: 00 [facility] Gastritis Gastritis Disease Active 11-12 00:00: 00 [facility] Chronic fatigue Chronic fatigue Disease Active 10-15 00:00: 00 [facility] Colon polyps Colon polyps Disease Active 06-25 00:00: 00 [facility] Fatty liver Fatty liver Disease Active 06-25 00:00: 00 [facility] Migraines Migraines Disease Active 06-25 00:00: 00 [facility] Vitiligo Vitiligo Disease Active 06-25 00:00: 00 [facility] Low testostero ne Low testostero ne Disease Active 06-25 00:00: 00 [facility] Statin intoleranc e Statin intoleranc e Disease Active 08-07 00:00: 00 [facility] Diabetic polyneurop athy associated with type 2 diabetes mellitus Diabetic polyneurop athy associated with type 2 diabetes mellitus Disease Active 08-19 00:00: 00 Overview: Formattin g of this note is different from the original. Overview: Converted from [facility] [...] Status Never Smoker Smokeless Tobacco Never Used [facility] ce Status Date Diabetic Eye Exam Overdue 06/21/2014 Done 06/21/2013 Seasonal Influenza Vaccine Next Due 03/21/2018 Done 03/21/2017 Imm Admin: Influenza (IM) Diabetic Foot Exam Next Due 09/30/2018 Done 09/30/2017 [employer] : WORKFLOW - DIABETES - DIABETIC FOOT EXAM PERFORMED Patient has more history with this topic... PLAN:Cont inue same medicatio ns Examine and protect feet , [facility] Occlusion and stenosis of unspecifie d carotid artery Occlusion and stenosis of unspecifie d carotid artery Disease Active 08-19 00:00: 00 Overview: Formattin g of this note might be different from the original. Overview: Converted from [facility] y:Descrip tion - CAROTID ARTERY STENOSIS [facility] Anxiety Anxiety Disease Active [facility] Allergies, Adverse Reactions, Alerts Allergy Name Allergy Type Status Severity Reaction(s) Onset Date Inactive Date Treating Clinician Comments Source DOXYCYCL INE MONOHYDR ATE DRUG INGREDI Active N/V 02-15 00:00: 00 [facility] Doxycycl ine Monohydr ate Propensi ty to adverse reaction s Active Nausea and/or Vomiting 02-15 00:00: 00 [facility] Ibuprofe n Propensi ty to adverse reaction s Active Nausea and/or Vomiting 06-28 00:00: 00 Patient notes hx of stentsAbd ominal discomfor t when taking ibuprofen [facility] IBUPROFE N DRUG INGREDI Active N/V 06-28 00:00: 00 [facility] Glimepir lucia Propensi ty to adverse reaction s Active Anxiety 2 00:00: 00 [facility] GLIMEPIR LUCIA DRUG INGREDI Active Anxiety 07-30 00:00: 00 [facility] Statins- Hmg-Coa Reductas e Inhibito rs Propensi ty to adverse reaction s Active Other - See comments 08-07 00:00: 00 Severe myalgia [facility] STATINS- HMG-COA REDUCTAS E INHIBITO RS Drug Class Active Other-Cmnt 08-07 00:00: 00 [facility] Statins- Hmg-Coa Reductas e Inhibito rs Propensi ty to adverse reaction s Active Other - See comments 08-07 00:00: 00 Severe myalgia [facility] Codeine Propensi ty to adverse reaction s Active Rash 2017-06 00:00: 00 [facility] CODEINE DRUG INGREDI Active Rash 2017-06 00:00: 00 [facility] Canaglif lozin Propensi ty to adverse reaction s Active Other - See comments 01-18 00:00: 00 Genital mycotic infection s [facility] BENJAMIN SCHMIDT DRUG INGREDI Active Other-Cmnt 2016-0 01-18 00:00: 00 [facility] Social History Social Habit Start Date Stop Date Quantity Comments Source Gender identity [facility] intake 2023-10-19 00:00:00 2023-10-19 00:00:00 Current non-drinker of alcohol (finding) [facility] Alcoholic beverage intake 2023-10-19 00:00:00 2023-10-19 00:00:00 Current non-drinker of alcohol (finding) [facility] History of Social function 2023-07-23 00:00:00 2023-07-23 00:00:00 [facility] Exposure to SARS-CoV-2 (event) 2022-09-19 00:00:00 2022-09-29 10:55:00 Not sure [facility] Tobacco use and exposure 2021-12-30 00:00:00 2021-12-30 00:00:00 Smokeless tobacco non-user [facility] Sex assigned at 1940 00:00:00 1940 00:00:00 [facility] Smoking Status Start Date Stop Date Source Never smoked tobacco [facility] Medications Ordered Medication Name Filled Medication Name Start Date Stop Date Current Medication? Ordering Clinician Indication Dosage Frequency Signature (SIG) Comments Components Source furosemide 40 mg tablet 11-04 00:00: 00 Yes [id number] TAKE 1 TABLET BY MOUTH IN THE MORNING. PLEASE DO LABS IN ONE WEEK [facility] Insulin [place], Disposable, (BD ULTRAFINE III MINI PEN) 31 gauge x 3/16" Ndle 10-18 00:00: 00 Yes [id number] USE DIRECTED TWICE DAILY TO INJECT INSULIN ICD-10 E11.65 [facility] Insulin Asp Prt-Insulin Aspart (NOVOLOG MIX 70-30) 100 unit/mL (70-30) injection 10-18 00:00: 00 10-18 00:00 :00 Yes [id number] 20U inject 20-24 Units under the skin in the morning and 20-24 Units in the evening. inject with meals. IF YOUR BG IS LESS THAN 150, TAKE HALF OF YOUR DOSE. [facility] FUROSEMIDE 40 mg tablet 10-13 00:00: 00 11-04 00:00 :00 No [id number] TAKE 1 TABLET BY MOUTH IN THE MORNING. PLEASE DO LABS IN ONE WEEK [facility] SERTraline (ZOLOFT) 25 mg tablet 10-10 00:00: 00 Yes [id number] 25mg Take 1 tablet by mouth in the morning. [facility] clobetasoL 0.05 % external solution 10-10 00:00: 00 Yes [id number] USE ENOUGH TO COVER TO AFFECTED AREA TWO TIMES A DAY NEEDED. [facility] blood sugar diagnostic (ONETOUCH ULTRA TEST) strip 10-10 00:00: 00 Yes [id number] Use as directed, once a day to monitor blood glucose for ICD code E11.9 [facility] Blood-Gluco se Meter Kit 10-10 00:00: 00 Yes [id number] Use as directed, once a day to monitor blood glucose for ICD code E11.9. One touch Ultra preferred [facility] KCL 10 mEq tablet 10-07 00:00: 00 Yes [id number] 10meq TAKE 1 TABLET BY MOUTH IN THE MORNING. PLEASE DO LABS IN ONE WEEK [facility] SERTraline (ZOLOFT) 25 mg tablet 09-30 00:00: 00 10-10 00:00 :00 No [id number] 25mg Take 1 tablet by mouth in the morning. [facility] KCL 10 mEq tablet 09-14 00:00: 00 10-07 00:00 :00 No [id number] 10meq TAKE 1 TABLET BY MOUTH IN THE MORNING. PLEASE DO LABS IN ONE WEEK [facility] lisinopriL 20 mg tablet 09-12 00:00: 00 Yes [id number] 20mg Take 1 tablet by mouth in the morning. [facility] pantoprazol e 40 mg EC tablet 09-12 00:00: 00 Yes [id number] 40mg Take 1 tablet by mouth in the morning. [facility] aspirin (ADULT LOW DOSE ASPIRIN) 81 mg EC tablet 09-06 13:56: 18 Yes 81mg Take 1 tablet by mouth in the morning. [facility] DULoxetine 60 mg capsule 09-06 00:00: 00 09-30 00:00 :00 No [id number] 60mg Take 1 capsule by mouth in the morning. [facility] furosemide 40 mg tablet 08-31 00:00: 00 10-13 00:00 :00 No [id number] 20mg Take 0.5 tablets by mouth in the morning. Please do labs in one week [facility] clobetasoL 0.05 % external solution 08-22 00:00: 00 10-10 00:00 :00 No USE ENOUGH TO COVER TO AFFECTED AREA TWO TIMES A DAY NEEDED. [facility] aspirin (ADULT LOW DOSE ASPIRIN) 81 mg EC tablet 08-19 13:30: 14 Yes 81mg Take 1 tablet by mouth in the morning. [facility] apixaban (ELIQUIS) 5 mg tablet 08-19 00:00: 00 10-18 00:00 :00 No [id number] 5mg Take 1 tablet by mouth in the morning and 1 tablet in the evening. Indication s: atrial fibrillati on [facility] KCL 10 mEq tablet 08-19 00:00: 00 09-14 00:00 :00 No [id number] 10meq Take 1 tablet by mouth in the morning. Please do labs in one week [facility] furosemide 40 mg tablet 08-19 00:00: 00 08-31 00:00 :00 No [id number] 40mg Take 1 tablet by mouth in the morning. Please do labs in one week [facility] pantoprazol e 40 mg EC tablet 08-13 00:00: 00 Yes [id number] 40mg Take 1 tablet by mouth in the morning. [facility] Insulin Asp Prt-Insulin Aspart (NOVOLOG MIX 70-30) 100 unit/mL (70-30) injection 07-23 00:00: 00 10-18 00:00 :00 No [id number] INJECT 24 UNITS UNDER THE SKIN 2 (TWO) TIMES DAILY BEFORE BREAKFAST AND DINNER. IF YOUR BG IS LESS THAN 150, TAKE HALF OF YOUR DOSE. [facility] collagenase clostridium histo. (XIAFLEX) injection 0.58 mg 2022-06 18:30: 00 05-24 18:02 :00 No [id number] 677828 .58mg [facility] pantoprazol e 40 mg EC tablet 2022-06 00:00: 00 08-13 00:00 :00 No [id number] 40mg Take 1 tablet by mouth in the morning. [facility] metFORMIN 500 mg tablet 2022-06 11:11: 46 04-16 00:00 :00 No 1000mg Take 2 tablets by mouth in the morning and 2 tablets in the evening. Take with meals. [facility] lisinopriL 20 mg tablet 2022-06 00:00: 00 Yes [id number] 20mg Take 1 tablet by mouth in the morning. [facility] Insulin [place], Disposable, (BD ULTRAFINE III MINI PEN) 31 gauge x 3/16" Ndle 2022-06 00:00: 00 10-18 00:00 :00 No [id number] USE DIRECTED TWICE DAILY TO INJECT INSULIN ICD-10 E11.65 [facility] blood sugar diagnostic (ONETOUCH ULTRA TEST) strip 2022-06 00:00: 00 10-10 00:00 :00 No [id number] Use as directed, once a day to monitor blood glucose for ICD code E11.9 [facility] Insulin Asp Prt-Insulin Aspart (NOVOLOG MIX 70-30) 100 unit/mL (70-30) injection 2022-06 00:00: 00 07-23 00:00 :00 No [id number] INJECT 28 UNITS UNDER THE SKIN 2 (TWO) TIMES DAILY BEFORE BREAKFAST AND DINNER. [facility] Insulin [place], Disposable, (BD ULTRAFINE III MINI PEN) 31 gauge x 3/16" Ndle 2022-06 00:00: 00 04-16 00:00 :00 No [id number] USE DIRECTED TWICE DAILY TO INJECT INSULIN ICD-10 E11.65 [facility] blood sugar diagnostic (ONETOUCH ULTRA TEST) strip 2022-06 0 00:00: 00 04-16 00:00 :00 No Use as directed, once a day to monitor blood glucose for ICD code E11.9 [facility] finasteride 5 mg tablet 2022-06 00:00: 00 03-31 00:00 :00 No [id number] 5mg Take 1 tablet by mouth in the morning. [facility] aspirin (ADULT LOW DOSE ASPIRIN) 81 mg EC tablet 03-18 09:26: 33 Yes 81mg Take 1 tablet by mouth in the morning. [facility] metFORMIN 500 mg tablet 03-18 09:26: 33 Yes 1000mg Take 2 tablets by mouth in the morning and 2 tablets in the evening. Take with meals. [facility] aspirin (ADULT LOW DOSE ASPIRIN) 81 mg EC tablet 03-10 14:12: 08 Yes 81mg Take 81 mg by mouth daily. [facility] Blood-Gluco se Meter Kit 02-15 00:00: 00 10-10 00:00 :00 No Use as directed, once a day to monitor blood glucose for ICD code E11.9 [facility] apixaban (ELIQUIS) 5 mg tablet 02-15 00:00: 00 08-19 00:00 :00 No [id number] 5mg Take 1 tablet by mouth in the morning and 1 tablet in the evening. Indication s: atrial fibrillati on [facility] blood sugar diagnostic (BLOOD GLUCOSE TEST) strip 02-15 00:00: 00 04-16 00:00 :00 No Use as directed, once a day to monitor blood glucose for ICD code E11.9 [facility] Lancets Misc 02-15 00:00: 00 04-08 00:00 :00 No Use as directed, once a day to monitor blood glucose for ICD code E11.9 [facility] HYDROcodone -acetaminop hen (NORCO 5) 5-325 mg tablet 1 tablet 02-08 21:30: 00 02-08 21:16 :00 No 1{tbl} 1 tablet, Oral, ONCE, 1 dose, On Wed02/08/23 at 1630, PADMA [facility] methylPREDN ISolone 4 mg tablets 02-08 00:00: 00 04-08 00:00 :00 No [id number] Take by mouth SEE-INSTRU CTIONS. follow package directions [facility] methocarbam oL 500 mg tablet 02-08 00:00: 00 02-14 04:59 :00 No [id number] 500mg Take 1 tablet by mouth in the morning and 1 tablet at noon and 1 tablet in the evening. Do all this for 5 days. [facility] CBD-KINGS WITH LIDOCAINE TOPICAL 01-29 16:07: 42 01-29 00:00 :00 No Apply to area(s). [facility] clopidogreL 75 mg tablet 01-29 16:07: 42 01-29 00:00 :00 No Take 1 tablet every day by oral route. [facility] gabapentin 300 mg capsule 01-29 16:07: 42 01-29 00:00 :00 No gabapentin 300 mg capsule TAKE ONE CAPSULE BY MOUTH TWICE A DAY FOR 5 DAYS,THEN 3 TIMES A DAY [facility] tamsulosin 0.4 mg 24 hr capsule 01-29 16:07: 42 01-29 00:00 :00 No Take 1 capsule every day by oral route. [facility] metFORMIN 500 mg tablet 01-29 16:07: 42 01-29 00:00 :00 No Take 1 tablet twice a day by oral route. [facility] amitriptyli ne 25 mg tablet 01-29 00:00: 00 04-08 00:00 :00 No [id number] 25mg Take 1 tablet by mouth at bedtime. [facility] ofloxacin 0.3 % otic drops 8-09 00:00: 00 04-08 00:00 :00 No 2[drp] Place 2 Drops in left ear in the morning and 2 Drops in the evening. [facility] escitalopra m oxalate 10 mg tablet 01-05 00:00: 00 09-06 00:00 :00 No [id number] 10mg Take 1 tablet by mouth in the morning. [facility] Insulin Asp Prt-Insulin Aspart (NOVOLOG MIX 70-30) 100 unit/mL (70-30) injection 01-05 00:00: 00 04-16 00:00 :00 No [id number] INJECT 28 UNITS UNDER THE SKIN 2 (TWO) TIMES DAILY BEFORE BREAKFAST AND DINNER. [facility] Insulin [place], Disposable, (PEN NEEDLE) 32 gauge x 5/32" Ndle 01-05 00:00: 00 04-08 00:00 :00 No Use as directed twice daily to inject insulin; ICD-10 E11.65 [facility] amoxicillin -clavulanat e (AUGMENTIN) 875-125 mg per tablet 12-26 00:00: 00 01-03 04:59 :00 No [id number] 1{tbl} Take 1 tablet by mouth in the morning and 1 tablet in the evening. Do all this for 7 days. [facility] doxycycline hyclate 100 mg capsule 12-16 00:00: 00 01-29 00:00 :00 No TAKE ONE CAPSULE ONCE DAILY WITH FOOD AND WATER, DO NOT LIE DOWN FOR 1 HOUR AFTER. [facility] metFORMIN 1,000 mg tablet 12-06 00:00: 00 Yes [id number] 1000mg Take 1 tablet by mouth in the morning and 1 tablet in the evening. Take with meals. [facility] dulaglutide (TRULICITY) 0.75 mg/0.5 mL PnIj 12-04 00:00: 00 01-29 00:00 :00 No [id number] .75mg inject 1 Pen under the skin weekly. [facility] acetaminoph en (TYLENOL ARTHRITIS PAIN) 650 mg CR tablet 11-26 00:00: 00 01-29 00:00 :00 No [id number] 650mg Take 1 tablet by mouth 3 (three) times daily as needed for Pain. [facility] SITagliptin phosphate 50 mg tablet 11-26 00:00: 00 12-04 00:00 :00 No [id number] 50mg Take 1 tablet by mouth in the morning. [facility] ASCENSIA MICROFILL strip 05 00:00: 00 Yes [id number] USE TWICE DAILY FOR BLOOD GLUCOSE MONITORING [facility] ASCENSIA MICROFILL strip 09-23 00:00: 00 01-29 00:00 :00 No [id number] USE TWICE DAILY FOR BLOOD GLUCOSE MONITORING [facility] Insulin [place], Disposable, (PEN NEEDLE) 32 gauge x 5/32" Ndle 330 00:00: 00 Yes [id number] Use as directed twice daily to inject insulin; ICD-10 E11.65 [facility] lisinopriL 20 mg tablet 09-17 00:00: 00 04-16 00:00 :00 No [id number] 20mg Take 1 tablet by mouth in the morning. [facility] Insulin [place], Disposable, (PEN NEEDLE) 32 gauge x 5/32" Ndle 3-30 00:00: 00 01-05 00:00 :00 No [id number] Use as directed twice daily to inject insulin; ICD-10 E11.65 [facility] Insulin Asp Prt-Insulin Aspart (NOVOLOG MIX 70-30) 100 unit/mL (70-30) injection 330 00:00: 00 11-26 00:00 :00 No [id number] INJECT 28 UNITS UNDER THE SKIN 2 (TWO) TIMES DAILY BEFORE BREAKFAST AND DINNER. [facility] blood sugar diagnostic (ASCENSIA MICROFILL) strip 09-17 00:00: 00 09-23 00:00 :00 No [id number] USE TWICE DAILY FOR BLOOD GLUCOSE MONITORING [facility] lisinopriL 20 mg tablet 09-15 00:00: 00 09-17 00:00 :00 No [id number] 20mg Take 1 tablet by mouth in the morning. [facility] NaCl 0.9% (NS) bolus infusion 1,000 mL 07-27 17:15: 00 07-27 18:09 :00 No 1000mL at 999 mL/hr, 1,000 mL, IV Infusion, ONCE, 1 dose, On Wed07/27/22 at 1115, STAT [facility] ondansetron (ZOFRAN (PF)) injection 4 mg 07-27 16:15: 00 07-27 16:13 :00 No 4mg 4 mg, Slow IV Push, ONCE, 1 dose, On Wed07/27/22 at 1015, [facility] ondansetron (ZOFRAN (PF)) injection 4 mg 07-27 15:30: 00 07-27 15:32 :00 No 4mg 4 mg, Slow IV Push, ONCE, 1 dose, On Wed07/27/22 at 0930, [facility] ondansetron 4 mg disintegrat ing tablet 07-27 00:00: 00 11-26 00:00 :00 No [id number] 4mg Take 1 tablet by mouth every 8 (eight) hours as needed for Nausea and Vomiting (N/V). [facility] nirmatrelvi r-ritonavir (PAXLOVID, EUA,) 300 mg (150 mg x 2)-100 mg tablet 07-27 00:00: 00 09-17 00:00 :00 No [id number] 3{tbl} Take 3 tablets by mouth in the morning and 3 tablets in the evening. [facility] D10W 10 % IV infusion 2021-06 16:28: 11 Yes at 20-40 mL/hr, IV Infusion, TITRATE, Starting on Sheila 06/18/22 at 1028, Until Discontinu ed, Routine, CV Preprocedu re [facility] iopamidol (ISOVUE 370-500 mL) injection 2021-06 15:56: 00 06-18 16:17 :44 No ONCE INTRA PROCEDURE, Starting on Sheila 06/18/22 at 0956, Until Sheila 06/18/22 at 1017, Routine, CV Intraproce dure [facility] nitroglycer in (TRIDIL) 2 mg in 10 mL D5W for Cardiac Cath 2021-06 15:41: 29 06-18 16:17 :44 No ONCE INTRA PROCEDURE, Starting on Sheila 06/18/22 at 0941, Until Sheila 06/18/22 at 1017, Routine, CV Intraproce dure [facility] heparin 1,000 unit/mL injection 2021-06 15:41: 09 06-18 16:17 :44 No ONCE INTRA PROCEDURE, Starting on Sheila 06/18/22 at 0941, Until Sheila 06/18/22 at 1017, Routine, CV Intraproce dure [facility] lidocaine 1% (PF) (XYLOCAINE) injection 2021-06 15:34: 00 06-18 16:17 :44 No ONCE INTRA PROCEDURE, Starting on Sheila 06/18/22 at 0934, Until Sheila 06/18/22 at 1017, Routine, CV Intraproce dure [facility] midazolam (VERSED) injection 2021-06 15:22: 00 06-18 16:17 :44 No ONCE INTRA PROCEDURE, Starting on Sheila 06/18/22 at 0922, Until Sheila 06/18/22 at 1017, Routine, CV Intraproce dure [facility] FENTanyl PF (SUBLIMAZE (PF)) injection 2021-06 15:22: 00 06-18 16:17 :44 No ONCE INTRA PROCEDURE, Starting on Sheila 06/18/22 at 0922, Until Sheila 06/18/22 at 1017, Routine, CV Intraproce dure [facility] aspirin tablet 325 mg 2021-06 15:00: 00 Yes [id number] 325mg 325 mg, Oral, DAILY, First dose on Sheila 06/18/22 at 0900, Until Discontinu ed, Routine [facility] aspirin (ADULT LOW DOSE ASPIRIN) 81 mg EC tablet 2021-06 12:29: 19 Yes 81mg Take 81 mg by mouth daily. [facility] CBD-KINGS WITH LIDOCAINE TOPICAL 2021-06 12:29: 19 Yes Apply to area(s). [facility] aspirin (ADULT LOW DOSE ASPIRIN) 81 mg EC tablet 2021-06 06:26: 18 Yes 81mg Take 81 mg by mouth daily. [facility] WITH LIDOCAINE TOPICAL 2021-06 06:26: 18 Yes Apply to area(s). [facility] lisinopriL 20 mg tablet 2021-06 00:00: 00 09-15 00:00 :00 No [id number] 20mg Take 1 tablet by mouth in the morning. [facility] nystatin 100,000 unit/gram powder 2021-06 00:00: 00 01-29 00:00 :00 No [id number] Apply to area(s) 2 (two) times daily. [facility] fluconazole 150 mg tablet 2021-06 00:00: 00 06-15 05:59 :00 No [id number] 150mg Take 1 tablet by mouth every 4 (four) days for 4 doses. [facility] promethazin e-dextromet horphan 6.25-15 mg/5 mL syrup 2021-06 00:00: 00 11-26 00:00 :00 No [id number] 5mL Take 5 mL by mouth 4 (four) times daily as needed for Cough. [facility] ESCITALOPRA M OXALATE 10 mg tablet 2021-06 00:00: 00 01-05 00:00 :00 No [id number] TAKE 1 TABLET BY MOUTH EVERY DAY [facility] gentamicin injection 80 mg 2021-06 010 20:15: 00 03-30 19:07 :00 No [id number] 80mg [facility] GABAPENTIN 300 mg capsule 2021-06 0-06 00:00: 00 04-17 04:59 :00 No [id number] 300mg TAKE 1 CAPSULE BY MOUTH IN THE MORNING AND 1 CAPSULE AT NOON AND 1 CAPSULE IN THE EVENING. DO ALL THIS FOR 21 DAYS. [facility] Insulin Asp Prt-Insulin Aspart (NOVOLOG MIX 70-30) 100 unit/mL (70-30) injection 14 00:00: 00 09-17 00:00 :00 No [id number] INJECT 20 UNITS UNDER THE SKIN 2 (TWO) TIMES DAILY BEFORE BREAKFAST AND DINNER. [facility] gabapentin 300 mg capsule 15 00:00: 00 02-24 04:59 :00 No [id number] 300mg Take 1 capsule by mouth in the morning and 1 capsule at noon and 1 capsule in the evening. Do all this for 21 days. [facility] FINASTERIDE 5 mg tablet - 00:00: 00 03-31 00:00 :00 No [id number] TAKE 1 TABLET BY MOUTH EVERY DAY [facility] blood sugar diagnostic (ASCENSIA MICROFILL) strip 8- 00:00: 00 09-17 00:00 :00 No [id number] USE TWICE DAILY FOR BLOOD GLUCOSE MONITORING [facility] escitalopra m oxalate 10 mg tablet 01-16 00:00: 00 04-22 00:00 :00 No [id number] 20mg Take 2 tablets by mouth in the morning. [facility] clotrimazol e-betametha sone (LOTRISONE) cream 12-30 00:00: 00 2023- 08-11 00:00 :00 No [id number] Apply to area(s) 2 (two) times daily. [facility] tiZANidine 4 mg tablet 12-30 00:00: 00 11-26 00:00 :00 No [id number] 4mg Take 1 tablet by mouth 3 (three) times daily as needed for Pain (scale 4-6). [facility] lisinopriL 20 mg tablet 12-26 00:00: 00 06-18 00:00 :00 No [id number] 20mg Take 1 tablet by mouth daily. [facility] NOVOLOG MIX 70-30 100 unit/mL (70-30) injection 11-18 00:00: 00 03-04 00:00 :00 No [id number] INJECT 20 UNITS UNDER THE SKIN 2 (TWO) TIMES DAILY BEFORE BREAKFAST AND DINNER. [facility] aspirin (ADULT LOW DOSE ASPIRIN) 81 mg EC tablet 11-03 10:43: 19 Yes 81mg Take 1 tablet by mouth in the morning. [facility] CANDESARTAN 4 mg tablet 10-23 00:00: 00 12-26 00:00 :00 No [id number] 4mg TAKE 1 TABLET BY MOUTH DAILY. REPLACES LISINOPRIL . [facility] metformin ER 500 mg 24 hr tablet 10-07 00:00: 00 11-03 00:00 :00 No [id number] 500mg Take 1 tablet by mouth 2 (two) times daily with meals. [facility] fluticasone propionate 50 mcg/actuati on nasal spray 09-08 00:00: 00 12-19 00:00 :00 No [id number] 2{spray } Use 2 Sprays in each nostril daily. [facility] guaiFENesin 100 mg/5 mL solution 09-08 00:00: 00 12-19 00:00 :00 No [id number] 100mg Take 5 mL by mouth every 4 (four) hours as needed for Cough. [facility] CBD-KINGS WITH LIDOCAINE TOPICAL 2022-0 3-12 19:59: 46 Yes Apply to area(s). [facility] apixaban (ELIQUIS) 5 mg tablet 312 00:00: 00 12-19 00:00 :00 No [id number] 5mg Take 1 tablet by mouth 2 (two) times daily for 180 days. Indication s: atrial fibrillati on [facility] FINASTERIDE 5 mg tablet 2020-06 2-14 00:00: 00 01-22 00:00 :00 No [id number] TAKE 1 TABLET BY MOUTH EVERY DAY [facility] PANTOPRAZOL E 40 mg EC tablet 2020-06-23 00:00: 00 04-08 00:00 :00 No [id number] TAKE 1 TABLET BY MOUTH EVERY DAY [facility] escitalopra m oxalate 10 mg tablet 2020-06-15 00:00: 00 01-16 00:00 :00 No [id number] 10mg Take 1 tablet by mouth daily. [facility] Insulin [place], Disposable, (PEN NEEDLE) 32 gauge x 5/32" Ndle 03-10 00:00: 00 09-17 00:00 :00 No [id number] Use as directed twice daily to inject insulin; ICD-10 E11.65 [facility] blood sugar diagnostic (ASCENSIA MICROFILL) strip 03-10 00:00: 00 01-22 00:00 :00 No [id number] USE TWICE DAILY FOR BLOOD GLUCOSE MONITORING FOR ICD E11.9 [facility] insulin aspart protamine-i nsulin aspart (NOVOLOG MIX 70-30 U-100 INSULN) 100 unit/mL (70-30) injection 03-10 00:00: 00 11-18 00:00 :00 No [id number] 20U inject 20 Units under the skin 2 (two) times daily before breakfast and dinner. [facility] Immunizations Ordered Immunization Name Filled Immunization Name Date Status Comments Source Influenza High Dose Quad 2020-04-19 00:00:00 Completed [facility] Influenza High Dose Quad 2020-04-19 00:00:00 Completed [facility] Influenza High Dose Quad 2020-04-19 00:00:00 Completed [facility] Influenza High Dose Quad 2020-04-19 00:00:00 Completed [facility] Influenza High Dose Quad 2020-04-19 00:00:00 Completed [facility] Influenza High Dose Quad 2020-04-19 00:00:00 Completed [facility] Influenza High Dose Quad 2020-04-19 00:00:00 Completed [facility] Influenza High Dose Quad 2020-04-19 00:00:00 Completed [facility] Influenza High Dose Quad 2020-04-19 00:00:00 Completed [facility] Influenza High Dose Quad 2020-04-19 00:00:00 Completed [facility] Influenza High Dose Quad 2020-04-19 00:00:00 Completed [facility] Influenza High Dose Quad 2020-04-19 00:00:00 Completed [facility] Influenza High Dose Quad 2020-04-19 00:00:00 Completed [facility] Influenza High Dose Quad 2020-04-19 00:00:00 Completed [facility] Influenza High Dose Quad 2020-04-19 00:00:00 Completed [facility] Influenza High Dose Quad 2020-04-19 00:00:00 Completed [facility] Influenza High Dose Quad 2020-04-19 00:00:00 Completed [facility] Influenza High Dose Quad 2020-04-19 00:00:00 Completed [facility] Influenza High Dose Quad 2020-04-19 00:00:00 Completed [facility] Influenza High Dose Quad 2020-04-19 00:00:00 Completed [facility] Influenza High Dose Quad 2020-04-19 00:00:00 Completed [facility] Influenza High Dose Quad 2020-04-19 00:00:00 Completed [facility] Influenza High Dose Quad 2020-04-19 00:00:00 Completed [facility] Influenza High Dose Quad 2020-04-19 00:00:00 Completed [facility] Influenza High Dose Quad 2020-04-19 00:00:00 Completed [facility] Influenza High Dose Quad 2020-04-19 00:00:00 Completed [facility] Influenza High Dose Quad 2020-04-19 00:00:00 Completed [facility] Influenza High Dose Quad 2020-04-19 00:00:00 Completed [facility] Influenza High Dose Quad 2020-04-19 00:00:00 Completed [facility] Influenza High Dose Quad 2020-04-19 00:00:00 Completed [facility] Influenza High Dose Quad 2020-04-19 00:00:00 Completed [facility] Influenza High Dose Quad 2020-04-19 00:00:00 Completed [facility] Influenza High Dose Quad 2020-04-19 00:00:00 Completed [facility] Influenza High Dose Quad 2020-04-19 00:00:00 Completed [facility] Influenza High Dose Quad 2020-04-19 00:00:00 Completed [facility] Influenza High Dose Quad 2020-04-19 00:00:00 Completed [facility] Influenza High Dose Quad 2020-04-19 00:00:00 Completed [facility] Influenza High Dose Quad 2020-04-19 00:00:00 Completed [facility] Influenza High Dose Quad 2020-04-19 00:00:00 Completed [facility] Influenza High Dose Quad 2020-04-19 00:00:00 Completed [facility] Influenza High Dose Quad 2020-04-19 00:00:00 Completed [facility] Influenza High Dose Quad 2020-04-19 00:00:00 Completed [facility] Influenza High Dose Quad 2020-04-19 00:00:00 Completed [facility] Influenza High Dose Quad 2020-04-19 00:00:00 Completed [facility] Influenza High Dose Quad 2020-04-19 00:00:00 Completed [facility] Influenza High Dose Quad 2020-04-19 00:00:00 Completed [facility] Influenza High Dose Quad 2020-04-19 00:00:00 Completed [facility] Influenza High Dose Quad 2020-04-19 00:00:00 Completed [facility] Influenza High Dose Quad 2020-04-19 00:00:00 Completed [facility] Influenza High Dose Quad 2020-04-19 00:00:00 Completed [facility] Influenza High Dose Quad 2020-04-19 00:00:00 Completed [facility] Influenza High Dose Quad 2020-04-19 00:00:00 Completed [facility] Influenza High Dose Quad 2020-04-19 00:00:00 Completed [facility] Influenza High Dose Quad 2020-04-19 00:00:00 Completed [facility] Influenza High Dose Quad 2020-04-19 00:00:00 Completed [facility] Influenza High Dose Quad 2020-04-19 00:00:00 Completed [facility] Influenza High Dose Quad 2020-04-19 00:00:00 Completed [facility] Influenza High Dose Quad 2020-04-19 00:00:00 Completed [facility] Influenza High Dose Quad 2020-04-19 00:00:00 Completed [facility] Influenza High Dose Quad 2020-04-19 00:00:00 Completed [facility] Influenza High Dose Quad 2020-04-19 00:00:00 Completed [facility] Influenza High Dose Quad 2020-04-19 00:00:00 Completed [facility] Influenza High Dose Quad 2020-04-19 00:00:00 Completed [facility] Influenza High Dose Quad 2020-04-19 00:00:00 Completed [facility] Influenza High Dose Quad 2020-04-19 00:00:00 Completed [facility] Influenza High Dose Quad 2020-04-19 00:00:00 Completed [facility] Influenza High Dose Quad 2020-04-19 00:00:00 Completed [facility] Influenza High Dose Quad 2020-04-19 00:00:00 Completed [facility] Influenza High Dose Quad 2020-04-19 00:00:00 Completed [facility] Influenza High Dose Quad 2020-04-19 00:00:00 Completed [facility] Influenza High Dose Quad 2020-04-19 00:00:00 Completed [facility] Influenza High Dose Quad 2020-04-19 00:00:00 Completed [facility] Influenza High Dose Quad 2020-04-19 00:00:00 Completed [facility] Influenza High Dose Quad 2020-04-19 00:00:00 Completed [facility] Influenza High Dose Quad 2020-04-19 00:00:00 Completed [facility] Influenza High Dose 2019-04-11 00:00:00 Completed [facility] Influenza High Dose 2019-04-11 00:00:00 Completed [facility] Influenza High Dose 2019-04-11 00:00:00 Completed [facility] Influenza High Dose 2019-04-11 00:00:00 Completed [facility] Influenza High Dose 2019-04-11 00:00:00 Completed [facility] Influenza High Dose 2019-04-11 00:00:00 Completed [facility] Influenza High Dose 2019-04-11 00:00:00 Completed [facility] Influenza High Dose 2019-04-11 00:00:00 Completed [facility] Influenza High Dose 2019-04-11 00:00:00 Completed [facility] Influenza High Dose 2019-04-11 00:00:00 Completed [facility] Influenza High Dose 2019-04-11 00:00:00 Completed [facility] Influenza High Dose 2019-04-11 00:00:00 Completed [facility] Influenza High Dose 2019-04-11 00:00:00 Completed [facility] Influenza High Dose 2019-04-11 00:00:00 Completed [facility] Influenza High Dose 2019-04-11 00:00:00 Completed [facility] Influenza High Dose 2019-04-11 00:00:00 Completed [facility] Influenza High Dose 2019-04-11 00:00:00 Completed [facility] Influenza High Dose 2019-04-11 00:00:00 Completed [facility] Influenza High Dose 2019-04-11 00:00:00 Completed [facility] Influenza High Dose 2019-04-11 00:00:00 Completed [facility] Influenza High Dose 2019-04-11 00:00:00 Completed [facility] Influenza High Dose 2019-04-11 00:00:00 Completed [facility] Influenza High Dose 2019-04-11 00:00:00 Completed [facility] Influenza High Dose 2019-04-11 00:00:00 Completed [facility] Influenza High Dose 2019-04-11 00:00:00 Completed [facility] Influenza High Dose 2019-04-11 00:00:00 Completed [facility] Influenza High Dose 2019-04-11 00:00:00 Completed [facility] Influenza High Dose 2019-04-11 00:00:00 Completed [facility] Influenza High Dose 2019-04-11 00:00:00 Completed [facility] Influenza High Dose 2019-04-11 00:00:00 Completed [facility] Influenza High Dose 2019-04-11 00:00:00 Completed [facility] Influenza High Dose 2019-04-11 00:00:00 Completed [facility] Influenza High Dose 2019-04-11 00:00:00 Completed [facility] Influenza High Dose 2019-04-11 00:00:00 Completed [facility] Influenza High Dose 2019-04-11 00:00:00 Completed [facility] Influenza High Dose 2019-04-11 00:00:00 Completed [facility] Influenza High Dose 2019-04-11 00:00:00 Completed [facility] Influenza High Dose 2019-04-11 00:00:00 Completed [facility] Influenza High Dose 2019-04-11 00:00:00 Completed [facility] Influenza High Dose 2019-04-11 00:00:00 Completed [facility] Influenza High Dose 2019-04-11 00:00:00 Completed [facility] Influenza High Dose 2019-04-11 00:00:00 Completed [facility] Influenza High Dose 2019-04-11 00:00:00 Completed [facility] Influenza High Dose 2019-04-11 00:00:00 Completed [facility] Influenza High Dose 2019-04-11 00:00:00 Completed [facility] Influenza High Dose 2019-04-11 00:00:00 Completed [facility] Influenza High Dose 2019-04-11 00:00:00 Completed [facility] Influenza High Dose 2019-04-11 00:00:00 Completed [facility] Influenza High Dose 2019-04-11 00:00:00 Completed [facility] Influenza High Dose 2019-04-11 00:00:00 Completed [facility] Influenza High Dose 2019-04-11 00:00:00 Completed [facility] Influenza High Dose 2019-04-11 00:00:00 Completed [facility] Influenza High Dose 2019-04-11 00:00:00 Completed [facility] Influenza High Dose 2019-04-11 00:00:00 Completed [facility] Influenza High Dose 2019-04-11 00:00:00 Completed [facility] Influenza High Dose 2019-04-11 00:00:00 Completed [facility] Influenza High Dose 2019-04-11 00:00:00 Completed [facility] Influenza High Dose 2019-04-11 00:00:00 Completed [facility] Influenza High Dose 2019-04-11 00:00:00 Completed [facility] Influenza High Dose 2019-04-11 00:00:00 Completed [facility] Influenza High Dose 2019-04-11 00:00:00 Completed [facility] Influenza High Dose 2019-04-11 00:00:00 Completed [facility] Influenza High Dose 2019-04-11 00:00:00 Completed [facility] Influenza High Dose 2019-04-11 00:00:00 Completed [facility] Influenza High Dose 2019-04-11 00:00:00 Completed [facility] Influenza High Dose 2019-04-11 00:00:00 Completed [facility] Influenza High Dose 2019-04-11 00:00:00 Completed [facility] Influenza High Dose 2019-04-11 00:00:00 Completed [facility] Influenza High Dose 2019-04-11 00:00:00 Completed [facility] Influenza High Dose 2019-04-11 00:00:00 Completed [facility] Influenza High Dose 2019-04-11 00:00:00 Completed [facility] Influenza High Dose 2019-04-11 00:00:00 Completed [facility] Influenza High Dose 2019-04-11 00:00:00 Completed [facility] Influenza High Dose 2019-04-11 00:00:00 Completed [facility] Influenza High Dose 2019-04-11 00:00:00 Completed [facility] Influenza High Dose 2018-03-01 00:00:00 Completed [facility] Influenza High Dose 2018-03-01 00:00:00 Completed [facility] Influenza High Dose 2018-03-01 00:00:00 Completed [facility] Influenza High Dose 2018-03-01 00:00:00 Completed [facility] Influenza High Dose 2018-03-01 00:00:00 Completed [facility] Influenza High Dose 2018-03-01 00:00:00 Completed [facility] Influenza High Dose 2018-03-01 00:00:00 Completed [facility] Influenza High Dose 2018-03-01 00:00:00 Completed [facility] Influenza High Dose 2018-03-01 00:00:00 Completed [facility] Influenza High Dose 2018-03-01 00:00:00 Completed [facility] Influenza High Dose 2018-03-01 00:00:00 Completed [facility] Influenza High Dose 2018-03-01 00:00:00 Completed [facility] Influenza High Dose 2018-03-01 00:00:00 Completed [facility] Influenza High Dose 2018-03-01 00:00:00 Completed [facility] Influenza High Dose 2018-03-01 00:00:00 Completed [facility] Influenza High Dose 2018-03-01 00:00:00 Completed [facility] Influenza High Dose 2018-03-01 00:00:00 Completed [facility] Influenza High Dose 2018-03-01 00:00:00 Completed [facility] Influenza High Dose 2018-03-01 00:00:00 Completed [facility] Influenza High Dose 2018-03-01 00:00:00 Completed [facility] Influenza High Dose 2018-03-01 00:00:00 Completed [facility] Influenza High Dose 2018-03-01 00:00:00 Completed [facility] Influenza High Dose 2018-03-01 00:00:00 Completed [facility] Influenza High Dose 2018-03-01 00:00:00 Completed [facility] Influenza High Dose 2018-03-01 00:00:00 Completed [facility] Influenza High Dose 2018-03-01 00:00:00 Completed [facility] Influenza High Dose 2018-03-01 00:00:00 Completed [facility] Influenza High Dose 2018-03-01 00:00:00 Completed [facility] Influenza High Dose 2018-03-01 00:00:00 Completed [facility] Influenza High Dose 2018-03-01 00:00:00 Completed [facility] Influenza High Dose 2018-03-01 00:00:00 Completed [facility] Influenza High Dose 2018-03-01 00:00:00 Completed [facility] Influenza High Dose 2018-03-01 00:00:00 Completed [facility] Influenza High Dose 2018-03-01 00:00:00 Completed [facility] Influenza High Dose 2018-03-01 00:00:00 Completed [facility] Influenza High Dose 2018-03-01 00:00:00 Completed [facility] Influenza High Dose 2018-03-01 00:00:00 Completed [facility] Influenza High Dose 2018-03-01 00:00:00 Completed [facility] Influenza High Dose 2018-03-01 00:00:00 Completed [facility] Influenza High Dose 2018-03-01 00:00:00 Completed [facility] Influenza High Dose 2018-03-01 00:00:00 Completed [facility] Influenza High Dose 2018-03-01 00:00:00 Completed [facility] Influenza High Dose 2018-03-01 00:00:00 Completed [facility] Influenza High Dose 2018-03-01 00:00:00 Completed [facility] Influenza High Dose 2018-03-01 00:00:00 Completed [facility] Influenza High Dose 2018-03-01 00:00:00 Completed [facility] Influenza High Dose 2018-03-01 00:00:00 Completed [facility] Influenza High Dose 2018-03-01 00:00:00 Completed [facility] Influenza High Dose 2018-03-01 00:00:00 Completed [facility] Influenza High Dose 2018-03-01 00:00:00 Completed [facility] Influenza High Dose 2018-03-01 00:00:00 Completed [facility] Influenza High Dose 2018-03-01 00:00:00 Completed [facility] Influenza High Dose 2018-03-01 00:00:00 Completed [facility] Influenza High Dose 2018-03-01 00:00:00 Completed [facility] Influenza High Dose 2018-03-01 00:00:00 Completed [facility] Influenza High Dose 2018-03-01 00:00:00 Completed [facility] Influenza High Dose 2018-03-01 00:00:00 Completed [facility] Influenza High Dose 2018-03-01 00:00:00 Completed [facility] Influenza High Dose 2018-03-01 00:00:00 Completed [facility] Influenza High Dose 2018-03-01 00:00:00 Completed [facility] Influenza High Dose 2018-03-01 00:00:00 Completed [facility] Influenza High Dose 2018-03-01 00:00:00 Completed [facility] Influenza High Dose 2018-03-01 00:00:00 Completed [facility] Influenza High Dose 2018-03-01 00:00:00 Completed [facility] Influenza High Dose 2018-03-01 00:00:00 Completed [facility] Influenza High Dose 2018-03-01 00:00:00 Completed [facility] Influenza High Dose 2018-03-01 00:00:00 Completed [facility] Influenza High Dose 2018-03-01 00:00:00 Completed [facility] Influenza High Dose 2018-03-01 00:00:00 Completed [facility] Influenza High Dose 2018-03-01 00:00:00 Completed [facility] Influenza High Dose 2018-03-01 00:00:00 Completed [facility] Influenza High Dose 2018-03-01 00:00:00 Completed [facility] Influenza High Dose 2018-03-01 00:00:00 Completed [facility] Influenza High Dose 2018-03-01 00:00:00 Completed [facility] Influenza High Dose 2018-03-01 00:00:00 Completed [facility] Influenza Virus Vaccine 2017-03-21 00:00:00 Completed [facility] Influenza Virus Vaccine 2017-03-21 00:00:00 Completed [facility] Influenza Virus Vaccine 2017-03-21 00:00:00 Completed [facility] Influenza Virus Vaccine 2017-03-21 00:00:00 Completed [facility] Influenza Virus Vaccine 2017-03-21 00:00:00 Completed [facility] Influenza Virus Vaccine 2017-03-21 00:00:00 Completed [facility] Influenza Virus Vaccine 2017-03-21 00:00:00 Completed [facility] Influenza Virus Vaccine 2017-03-21 00:00:00 Completed [facility] Influenza Virus Vaccine 2017-03-21 00:00:00 Completed [facility] Influenza Virus Vaccine 2017-03-21 00:00:00 Completed [facility] Influenza Virus Vaccine 2017-03-21 00:00:00 Completed [facility] Influenza Virus Vaccine 2017-03-21 00:00:00 Completed [facility] Influenza Virus Vaccine 2017-03-21 00:00:00 Completed [facility] Influenza Virus Vaccine 2017-03-21 00:00:00 Completed [facility] Influenza Virus Vaccine 2017-03-21 00:00:00 Completed [facility] Influenza Virus Vaccine 2017-03-21 00:00:00 Completed [facility] Influenza Virus Vaccine 2017-03-21 00:00:00 Completed [facility] Influenza Virus Vaccine 2017-03-21 00:00:00 Completed [facility] Influenza Virus Vaccine 2017-03-21 00:00:00 Completed [facility] Influenza Virus Vaccine 2017-03-21 00:00:00 Completed [facility] Influenza Virus Vaccine 2017-03-21 00:00:00 Completed [facility] Influenza Virus Vaccine 2017-03-21 00:00:00 Completed [facility] Influenza Virus Vaccine 2017-03-21 00:00:00 Completed [facility] Influenza Virus Vaccine 2017-03-21 00:00:00 Completed [facility] Influenza Virus Vaccine 2017-03-21 00:00:00 Completed [facility] Influenza Virus Vaccine 2017-03-21 00:00:00 Completed [facility] Influenza Virus Vaccine 2017-03-21 00:00:00 Completed [facility] Influenza Virus Vaccine 2017-03-21 00:00:00 Completed [facility] Influenza Virus Vaccine 2017-03-21 00:00:00 Completed [facility] Influenza Virus Vaccine 2017-03-21 00:00:00 Completed [facility] Influenza Virus Vaccine 2017-03-21 00:00:00 Completed [facility] Influenza Virus Vaccine 2017-03-21 00:00:00 Completed [facility] Influenza Virus Vaccine 2017-03-21 00:00:00 Completed [facility] Influenza Virus Vaccine 2017-03-21 00:00:00 Completed [facility] Influenza Virus Vaccine 2017-03-21 00:00:00 Completed [facility] Influenza Virus Vaccine 2017-03-21 00:00:00 Completed [facility] Influenza Virus Vaccine 2017-03-21 00:00:00 Completed [facility] Influenza Virus Vaccine 2017-03-21 00:00:00 Completed [facility] Influenza Virus Vaccine 2017-03-21 00:00:00 Completed [facility] Influenza Virus Vaccine 2017-03-21 00:00:00 Completed [facility] Influenza Virus Vaccine 2017-03-21 00:00:00 Completed [facility] Influenza Virus Vaccine 2017-03-21 00:00:00 Completed [facility] Influenza Virus Vaccine 2017-03-21 00:00:00 Completed [facility] Influenza Virus Vaccine 2017-03-21 00:00:00 Completed [facility] Influenza Virus Vaccine 2017-03-21 00:00:00 Completed [facility] Influenza Virus Vaccine 2017-03-21 00:00:00 Completed [facility] Influenza Virus Vaccine 2017-03-21 00:00:00 Completed [facility] Influenza Virus Vaccine 2017-03-21 00:00:00 Completed [facility] Influenza Virus Vaccine 2017-03-21 00:00:00 Completed [facility] Influenza Virus Vaccine 2017-03-21 00:00:00 Completed [facility] Influenza Virus Vaccine 2017-03-21 00:00:00 Completed [facility] Influenza Virus Vaccine 2017-03-21 00:00:00 Completed [facility] Influenza Virus Vaccine 2017-03-21 00:00:00 Completed [facility] Influenza Virus Vaccine 2017-03-21 00:00:00 Completed [facility] Influenza Virus Vaccine 2017-03-21 00:00:00 Completed [facility] Influenza Virus Vaccine 2017-03-21 00:00:00 Completed [facility] Influenza Virus Vaccine 2017-03-21 00:00:00 Completed [facility] Influenza Virus Vaccine 2017-03-21 00:00:00 Completed [facility] Influenza Virus Vaccine 2017-03-21 00:00:00 Completed [facility] Influenza Virus Vaccine 2017-03-21 00:00:00 Completed [facility] Influenza Virus Vaccine 2017-03-21 00:00:00 Completed [facility] Influenza Virus Vaccine 2017-03-21 00:00:00 Completed [facility] Influenza Virus Vaccine 2017-03-21 00:00:00 Completed [facility] Influenza Virus Vaccine 2017-03-21 00:00:00 Completed [facility] Influenza Virus Vaccine 2017-03-21 00:00:00 Completed [facility] Influenza Virus Vaccine 2017-03-21 00:00:00 Completed [facility] Influenza Virus Vaccine 2017-03-21 00:00:00 Completed [facility] Influenza Virus Vaccine 2017-03-21 00:00:00 Completed [facility] Influenza Virus Vaccine 2017-03-21 00:00:00 Completed [facility] Influenza Virus Vaccine 2017-03-21 00:00:00 Completed [facility] Influenza Virus Vaccine 2017-03-21 00:00:00 Completed [facility] Influenza Virus Vaccine 2017-03-21 00:00:00 Completed [facility] Influenza Virus Vaccine 2017-03-21 00:00:00 Completed [facility] Influenza Virus Vaccine 2017-03-21 00:00:00 Completed [facility] Influenza Virus Vaccine 2017-03-21 00:00:00 Completed [facility] TDAP 2015-10-03 00:00:00 Completed [facility] TDAP 2015-10-03 00:00:00 Completed [facility] TDAP 2015-10-03 00:00:00 Completed [facility] TDAP 2015-10-03 00:00:00 Completed [facility] TDAP 2015-10-03 00:00:00 Completed [facility] TDAP 2015-10-03 00:00:00 Completed [facility] TDAP 2015-10-03 00:00:00 Completed [facility] TDAP 2015-10-03 00:00:00 Completed [facility] TDAP 2015-10-03 00:00:00 Completed [facility] TDAP 2015-10-03 00:00:00 Completed [facility] TDAP 2015-10-03 00:00:00 Completed [facility] TDAP 2015-10-03 00:00:00 Completed [facility] TDAP 2015-10-03 00:00:00 Completed [facility] TDAP 2015-10-03 00:00:00 Completed [facility] TDAP 2015-10-03 00:00:00 Completed [facility] TDAP 2015-10-03 00:00:00 Completed [facility] TDAP 2015-10-03 00:00:00 Completed [facility] TDAP 2015-10-03 00:00:00 Completed [facility] TDAP 2015-10-03 00:00:00 Completed [facility] TDAP 2015-10-03 00:00:00 Completed [facility] TDAP 2015-10-03 00:00:00 Completed [facility] TDAP 2015-10-03 00:00:00 Completed [facility] TDAP 2015-10-03 00:00:00 Completed [facility] TDAP 2015-10-03 00:00:00 Completed [facility] TDAP 2015-10-03 00:00:00 Completed [facility] TDAP 2015-10-03 00:00:00 Completed [facility] TDAP 2015-10-03 00:00:00 Completed [facility] TDAP 2015-10-03 00:00:00 Completed [facility] TDAP 2015-10-03 00:00:00 Completed [facility] TDAP 2015-10-03 00:00:00 Completed [facility] TDAP 2015-10-03 00:00:00 Completed [facility] TDAP 2015-10-03 00:00:00 Completed [facility] TDAP 2015-10-03 00:00:00 Completed [facility] TDAP 2015-10-03 00:00:00 Completed [facility] TDAP 2015-10-03 00:00:00 Completed [facility] TDAP 2015-10-03 00:00:00 Completed [facility] TDAP 2015-10-03 00:00:00 Completed [facility] TDAP 2015-10-03 00:00:00 Completed [facility] TDAP 2015-10-03 00:00:00 Completed [facility] TDAP 2015-10-03 00:00:00 Completed [facility] TDAP 2015-10-03 00:00:00 Completed [facility] TDAP 2015-10-03 00:00:00 Completed [facility] TDAP 2015-10-03 00:00:00 Completed [facility] TDAP 2015-10-03 00:00:00 Completed [facility] TDAP 2015-10-03 00:00:00 Completed [facility] TDAP 2015-10-03 00:00:00 Completed [facility] TDAP 2015-10-03 00:00:00 Completed [facility] TDAP 2015-10-03 00:00:00 Completed [facility] TDAP 2015-10-03 00:00:00 Completed [facility] TDAP 2015-10-03 00:00:00 Completed [facility] TDAP 2015-10-03 00:00:00 Completed [facility] TDAP 2015-10-03 00:00:00 Completed [facility] TDAP 2015-10-03 00:00:00 Completed [facility] TDAP 2015-10-03 00:00:00 Completed [facility] TDAP 2015-10-03 00:00:00 Completed [facility] TDAP 2015-10-03 00:00:00 Completed [facility] TDAP 2015-10-03 00:00:00 Completed [facility] TDAP 2015-10-03 00:00:00 Completed [facility] TDAP 2015-10-03 00:00:00 Completed [facility] TDAP 2015-10-03 00:00:00 Completed [facility] TDAP 2015-10-03 00:00:00 Completed [facility] TDAP 2015-10-03 00:00:00 Completed [facility] TDAP 2015-10-03 00:00:00 Completed [facility] TDAP 2015-10-03 00:00:00 Completed [facility] TDAP 2015-10-03 00:00:00 Completed [facility] TDAP 2015-10-03 00:00:00 Completed [facility] TDAP 2015-10-03 00:00:00 Completed [facility] TDAP 2015-10-03 00:00:00 Completed [facility] TDAP 2015-10-03 00:00:00 Completed [facility] TDAP 2015-10-03 00:00:00 Completed [facility] TDAP 2015-10-03 00:00:00 Completed [facility] TDAP 2015-10-03 00:00:00 Completed [facility] TDAP 2015-10-03 00:00:00 Completed [facility] TDAP 2015-10-03 00:00:00 Completed [facility] TDAP 2015-10-03 00:00:00 Completed [facility] Pneumococcal 13 Conjugate, PCV13 (Prevnar 13) 2012-12-07 00:00:00 Completed [facility] Pneumococcal 13 Conjugate, PCV13 (Prevnar 13) 2012-12-07 00:00:00 Completed [facility] Pneumococcal 13 Conjugate, PCV13 (Prevnar 13) 2012-12-07 00:00:00 Completed [facility] Pneumococcal 13 Conjugate, PCV13 (Prevnar 13) 2012-12-07 00:00:00 Completed [facility] Pneumococcal 13 Conjugate, PCV13 (Prevnar 13) 2012-12-07 00:00:00 Completed [facility] Pneumococcal 13 Conjugate, PCV13 (Prevnar 13) 2012-12-07 00:00:00 Completed [facility] Pneumococcal 13 Conjugate, PCV13 (Prevnar 13) 2012-12-07 00:00:00 Completed [facility] Pneumococcal 13 Conjugate, PCV13 (Prevnar 13) 2012-12-07 00:00:00 Completed [facility] Pneumococcal 13 Conjugate, PCV13 (Prevnar 13) 2012-12-07 00:00:00 Completed [facility] Pneumococcal 13 Conjugate, PCV13 (Prevnar 13) 2012-12-07 00:00:00 Completed [facility] Pneumococcal 13 Conjugate, PCV13 (Prevnar 13) 2012-12-07 00:00:00 Completed [facility] Pneumococcal 13 Conjugate, PCV13 (Prevnar 13) 2012-12-07 00:00:00 Completed [facility] Pneumococcal 13 Conjugate, PCV13 (Prevnar 13) 2012-12-07 00:00:00 Completed [facility] Pneumococcal 13 Conjugate, PCV13 (Prevnar 13) 2012-12-07 00:00:00 Completed [facility] Pneumococcal 13 Conjugate, PCV13 (Prevnar 13) 2012-12-07 00:00:00 Completed [facility] Pneumococcal 13 Conjugate, PCV13 (Prevnar 13) 2012-12-07 00:00:00 Completed [facility] Pneumococcal 13 Conjugate, PCV13 (Prevnar 13) 2012-12-07 00:00:00 Completed [facility] Pneumococcal 13 Conjugate, PCV13 (Prevnar 13) 2012-12-07 00:00:00 Completed [facility] Pneumococcal 13 Conjugate, PCV13 (Prevnar 13) 2012-12-07 00:00:00 Completed [facility] Pneumococcal 13 Conjugate, PCV13 (Prevnar 13) 2012-12-07 00:00:00 Completed [facility] Pneumococcal 13 Conjugate, PCV13 (Prevnar 13) 2012-12-07 00:00:00 Completed [facility] Pneumococcal 13 Conjugate, PCV13 (Prevnar 13) 2012-12-07 00:00:00 Completed [facility] Pneumococcal 13 Conjugate, PCV13 (Prevnar 13) 2012-12-07 00:00:00 Completed [facility] Pneumococcal 13 Conjugate, PCV13 (Prevnar 13) 2012-12-07 00:00:00 Completed [facility] Pneumococcal 13 Conjugate, PCV13 (Prevnar 13) 2012-12-07 00:00:00 Completed [facility] Pneumococcal 13 Conjugate, PCV13 (Prevnar 13) 2012-12-07 00:00:00 Completed [facility] Pneumococcal 13 Conjugate, PCV13 (Prevnar 13) 2012-12-07 00:00:00 Completed [facility] Pneumococcal 13 Conjugate, PCV13 (Prevnar 13) 2012-12-07 00:00:00 Completed [facility] Pneumococcal 13 Conjugate, PCV13 (Prevnar 13) 2012-12-07 00:00:00 Completed [facility] Pneumococcal 13 Conjugate, PCV13 (Prevnar 13) 2012-12-07 00:00:00 Completed [facility] Pneumococcal 13 Conjugate, PCV13 (Prevnar 13) 2012-12-07 00:00:00 Completed [facility] Pneumococcal 13 Conjugate, PCV13 (Prevnar 13) 2012-12-07 00:00:00 Completed [facility] Pneumococcal 13 Conjugate, PCV13 (Prevnar 13) 2012-12-07 00:00:00 Completed [facility] Pneumococcal 13 Conjugate, PCV13 (Prevnar 13) 2012-12-07 00:00:00 Completed [facility] Pneumococcal 13 Conjugate, PCV13 (Prevnar 13) 2012-12-07 00:00:00 Completed [facility] Pneumococcal 13 Conjugate, PCV13 (Prevnar 13) 2012-12-07 00:00:00 Completed [facility] Pneumococcal 13 Conjugate, PCV13 (Prevnar 13) 2012-12-07 00:00:00 Completed [facility] Pneumococcal 13 Conjugate, PCV13 (Prevnar 13) 2012-12-07 00:00:00 Completed [facility] Pneumococcal 13 Conjugate, PCV13 (Prevnar 13) 2012-12-07 00:00:00 Completed [facility] Pneumococcal 13 Conjugate, PCV13 (Prevnar 13) 2012-12-07 00:00:00 Completed [facility] Pneumococcal 13 Conjugate, PCV13 (Prevnar 13) 2012-12-07 00:00:00 Completed [facility] Pneumococcal 13 Conjugate, PCV13 (Prevnar 13) 2012-12-07 00:00:00 Completed [facility] Pneumococcal 13 Conjugate, PCV13 (Prevnar 13) 2012-12-07 00:00:00 Completed [facility] Pneumococcal 13 Conjugate, PCV13 (Prevnar 13) 2012-12-07 00:00:00 Completed [facility] Pneumococcal 13 Conjugate, PCV13 (Prevnar 13) 2012-12-07 00:00:00 Completed [facility] Pneumococcal 13 Conjugate, PCV13 (Prevnar 13) 2012-12-07 00:00:00 Completed [facility] Pneumococcal 13 Conjugate, PCV13 (Prevnar 13) 2012-12-07 00:00:00 Completed [facility] Pneumococcal 13 Conjugate, PCV13 (Prevnar 13) 2012-12-07 00:00:00 Completed [facility] Pneumococcal 13 Conjugate, PCV13 (Prevnar 13) 2012-12-07 00:00:00 Completed [facility] Pneumococcal 13 Conjugate, PCV13 (Prevnar 13) 2012-12-07 00:00:00 Completed [facility] Pneumococcal 13 Conjugate, PCV13 (Prevnar 13) 2012-12-07 00:00:00 Completed [facility] Pneumococcal 13 Conjugate, PCV13 (Prevnar 13) 2012-12-07 00:00:00 Completed [facility] Pneumococcal 13 Conjugate, PCV13 (Prevnar 13) 2012-12-07 00:00:00 Completed [facility] Pneumococcal 13 Conjugate, PCV13 (Prevnar 13) 2012-12-07 00:00:00 Completed [facility] Pneumococcal 13 Conjugate, PCV13 (Prevnar 13) 2012-12-07 00:00:00 Completed [facility] Pneumococcal 13 Conjugate, PCV13 (Prevnar 13) 2012-12-07 00:00:00 Completed [facility] Pneumococcal 13 Conjugate, PCV13 (Prevnar 13) 2012-12-07 00:00:00 Completed [facility] Pneumococcal 13 Conjugate, PCV13 (Prevnar 13) 2012-12-07 00:00:00 Completed [facility] Pneumococcal 13 Conjugate, PCV13 (Prevnar 13) 2012-12-07 00:00:00 Completed [facility] Pneumococcal 13 Conjugate, PCV13 (Prevnar 13) 2012-12-07 00:00:00 Completed [facility] Pneumococcal 13 Conjugate, PCV13 (Prevnar 13) 2012-12-07 00:00:00 Completed [facility] Pneumococcal 13 Conjugate, PCV13 (Prevnar 13) 2012-12-07 00:00:00 Completed [facility] Pneumococcal 13 Conjugate, PCV13 (Prevnar 13) 2012-12-07 00:00:00 Completed [facility] Pneumococcal 13 Conjugate, PCV13 (Prevnar 13) 2012-12-07 00:00:00 Completed [facility] Pneumococcal 13 Conjugate, PCV13 (Prevnar 13) 2012-12-07 00:00:00 Completed [facility] Pneumococcal 13 Conjugate, PCV13 (Prevnar 13) 2012-12-07 00:00:00 Completed [facility] Pneumococcal 13 Conjugate, PCV13 (Prevnar 13) 2012-12-07 00:00:00 Completed [facility] Pneumococcal 13 Conjugate, PCV13 (Prevnar 13) 2012-12-07 00:00:00 Completed [facility] Pneumococcal 13 Conjugate, PCV13 (Prevnar 13) 2012-12-07 00:00:00 Completed [facility] Pneumococcal 13 Conjugate, PCV13 (Prevnar 13) 2012-12-07 00:00:00 Completed [facility] Pneumococcal 13 Conjugate, PCV13 (Prevnar 13) 2012-12-07 00:00:00 Completed [facility] Pneumococcal 13 Conjugate, PCV13 (Prevnar 13) 2012-12-07 00:00:00 Completed [facility] Pneumococcal 13 Conjugate, PCV13 (Prevnar 13) 2012-12-07 00:00:00 Completed [facility] Pneumococcal 13 Conjugate, PCV13 (Prevnar 13) 2012-12-07 00:00:00 Completed [facility] Pneumococcal 13 Conjugate, PCV13 (Prevnar 13) 2012-12-07 00:00:00 Completed [facility] Pneumococcal Polysaccharide, PPSV23 (PNEUMOVAX) 2012-07-26 00:00:00 Completed [facility] Pneumococcal Polysaccharide, PPSV23 (PNEUMOVAX) 2012-07-26 00:00:00 Completed [facility] Pneumococcal Polysaccharide, PPSV23 (PNEUMOVAX) 2012-07-26 00:00:00 Completed [facility] Pneumococcal Polysaccharide, PPSV23 (PNEUMOVAX) 2012-07-26 00:00:00 Completed [facility] Pneumococcal Polysaccharide, PPSV23 (PNEUMOVAX) 2012-07-26 00:00:00 Completed [facility] Pneumococcal Polysaccharide, PPSV23 (PNEUMOVAX) 2012-07-26 00:00:00 Completed [facility] Pneumococcal Polysaccharide, PPSV23 (PNEUMOVAX) 2012-07-26 00:00:00 Completed [facility] Pneumococcal Polysaccharide, PPSV23 (PNEUMOVAX) 2012-07-26 00:00:00 Completed [facility] Pneumococcal Polysaccharide, PPSV23 (PNEUMOVAX) 2012-07-26 00:00:00 Completed [facility] Pneumococcal Polysaccharide, PPSV23 (PNEUMOVAX) 2012-07-26 00:00:00 Completed [facility] Pneumococcal Polysaccharide, PPSV23 (PNEUMOVAX) 2012-07-26 00:00:00 Completed [facility] Pneumococcal Polysaccharide, PPSV23 (PNEUMOVAX) 2012-07-26 00:00:00 Completed [facility] Pneumococcal Polysaccharide, PPSV23 (PNEUMOVAX) 2012-07-26 00:00:00 Completed [facility] Pneumococcal Polysaccharide, PPSV23 (PNEUMOVAX) 2012-07-26 00:00:00 Completed [facility] Pneumococcal Polysaccharide, PPSV23 (PNEUMOVAX) 2012-07-26 00:00:00 Completed [facility] Pneumococcal Polysaccharide, PPSV23 (PNEUMOVAX) 2012-07-26 00:00:00 Completed [facility] Pneumococcal Polysaccharide, PPSV23 (PNEUMOVAX) 2012-07-26 00:00:00 Completed [facility] Pneumococcal Polysaccharide, PPSV23 (PNEUMOVAX) 2012-07-26 00:00:00 Completed [facility] Pneumococcal Polysaccharide, PPSV23 (PNEUMOVAX) 2012-07-26 00:00:00 Completed [facility] Pneumococcal Polysaccharide, PPSV23 (PNEUMOVAX) 2012-07-26 00:00:00 Completed [facility] Pneumococcal Polysaccharide, PPSV23 (PNEUMOVAX) 2012-07-26 00:00:00 Completed [facility] Pneumococcal Polysaccharide, PPSV23 (PNEUMOVAX) 2012-07-26 00:00:00 Completed [facility] Pneumococcal Polysaccharide, PPSV23 (PNEUMOVAX) 2012-07-26 00:00:00 Completed [facility] Pneumococcal Polysaccharide, PPSV23 (PNEUMOVAX) 2012-07-26 00:00:00 Completed [facility] Pneumococcal Polysaccharide, PPSV23 (PNEUMOVAX) 2012-07-26 00:00:00 Completed [facility] Pneumococcal Polysaccharide, PPSV23 (PNEUMOVAX) 2012-07-26 00:00:00 Completed [facility] Pneumococcal Polysaccharide, PPSV23 (PNEUMOVAX) 2012-07-26 00:00:00 Completed [facility] Pneumococcal Polysaccharide, PPSV23 (PNEUMOVAX) 2012-07-26 00:00:00 Completed [facility] Pneumococcal Polysaccharide, PPSV23 (PNEUMOVAX) 2012-07-26 00:00:00 Completed [facility] Pneumococcal Polysaccharide, PPSV23 (PNEUMOVAX) 2012-07-26 00:00:00 Completed [facility] Pneumococcal Polysaccharide, PPSV23 (PNEUMOVAX) 2012-07-26 00:00:00 Completed [facility] Pneumococcal Polysaccharide, PPSV23 (PNEUMOVAX) 2012-07-26 00:00:00 Completed [facility] Pneumococcal Polysaccharide, PPSV23 (PNEUMOVAX) 2012-07-26 00:00:00 Completed [facility] Pneumococcal Polysaccharide, PPSV23 (PNEUMOVAX) 2012-07-26 00:00:00 Completed [facility] Pneumococcal Polysaccharide, PPSV23 (PNEUMOVAX) 2012-07-26 00:00:00 Completed [facility] Pneumococcal Polysaccharide, PPSV23 (PNEUMOVAX) 2012-07-26 00:00:00 Completed [facility] Pneumococcal Polysaccharide, PPSV23 (PNEUMOVAX) 2012-07-26 00:00:00 Completed [facility] Pneumococcal Polysaccharide, PPSV23 (PNEUMOVAX) 2012-07-26 00:00:00 Completed [facility] Pneumococcal Polysaccharide, PPSV23 (PNEUMOVAX) 2012-07-26 00:00:00 Completed [facility] Pneumococcal Polysaccharide, PPSV23 (PNEUMOVAX) 2012-07-26 00:00:00 Completed [facility] Pneumococcal Polysaccharide, PPSV23 (PNEUMOVAX) 2012-07-26 00:00:00 Completed [facility] Pneumococcal Polysaccharide, PPSV23 (PNEUMOVAX) 2012-07-26 00:00:00 Completed [facility] Pneumococcal Polysaccharide, PPSV23 (PNEUMOVAX) 2012-07-26 00:00:00 Completed [facility] Pneumococcal Polysaccharide, PPSV23 (PNEUMOVAX) 2012-07-26 00:00:00 Completed [facility] Pneumococcal Polysaccharide, PPSV23 (PNEUMOVAX) 2012-07-26 00:00:00 Completed [facility] Pneumococcal Polysaccharide, PPSV23 (PNEUMOVAX) 2012-07-26 00:00:00 Completed [facility] Pneumococcal Polysaccharide, PPSV23 (PNEUMOVAX) 2012-07-26 00:00:00 Completed [facility] Pneumococcal Polysaccharide, PPSV23 (PNEUMOVAX) 2012-07-26 00:00:00 Completed [facility] Pneumococcal Polysaccharide, PPSV23 (PNEUMOVAX) 2012-07-26 00:00:00 Completed [facility] Pneumococcal Polysaccharide, PPSV23 (PNEUMOVAX) 2012-07-26 00:00:00 Completed [facility] Pneumococcal Polysaccharide, PPSV23 (PNEUMOVAX) 2012-07-26 00:00:00 Completed [facility] Pneumococcal Polysaccharide, PPSV23 (PNEUMOVAX) 2012-07-26 00:00:00 Completed [facility] Pneumococcal Polysaccharide, PPSV23 (PNEUMOVAX) 2012-07-26 00:00:00 Completed [facility] Pneumococcal Polysaccharide, PPSV23 (PNEUMOVAX) 2012-07-26 00:00:00 Completed [facility] Pneumococcal Polysaccharide, PPSV23 (PNEUMOVAX) 2012-07-26 00:00:00 Completed [facility] Pneumococcal Polysaccharide, PPSV23 (PNEUMOVAX) 2012-07-26 00:00:00 Completed [facility] Pneumococcal Polysaccharide, PPSV23 (PNEUMOVAX) 2012-07-26 00:00:00 Completed [facility] Pneumococcal Polysaccharide, PPSV23 (PNEUMOVAX) 2012-07-26 00:00:00 Completed [facility] Pneumococcal Polysaccharide, PPSV23 (PNEUMOVAX) 2012-07-26 00:00:00 Completed [facility] Pneumococcal Polysaccharide, PPSV23 (PNEUMOVAX) 2012-07-26 00:00:00 Completed [facility] Pneumococcal Polysaccharide, PPSV23 (PNEUMOVAX) 2012-07-26 00:00:00 Completed [facility] Pneumococcal Polysaccharide, PPSV23 (PNEUMOVAX) 2012-07-26 00:00:00 Completed [facility] Pneumococcal Polysaccharide, PPSV23 (PNEUMOVAX) 2012-07-26 00:00:00 Completed [facility] Pneumococcal Polysaccharide, PPSV23 (PNEUMOVAX) 2012-07-26 00:00:00 Completed [facility] Pneumococcal Polysaccharide, PPSV23 (PNEUMOVAX) 2012-07-26 00:00:00 Completed [facility] Pneumococcal Polysaccharide, PPSV23 (PNEUMOVAX) 2012-07-26 00:00:00 Completed [facility] Pneumococcal Polysaccharide, PPSV23 (PNEUMOVAX) 2012-07-26 00:00:00 Completed [facility] Pneumococcal Polysaccharide, PPSV23 (PNEUMOVAX) 2012-07-26 00:00:00 Completed [facility] Pneumococcal Polysaccharide, PPSV23 (PNEUMOVAX) 2012-07-26 00:00:00 Completed [facility] Pneumococcal Polysaccharide, PPSV23 (PNEUMOVAX) 2012-07-26 00:00:00 Completed [facility] Pneumococcal Polysaccharide, PPSV23 (PNEUMOVAX) 2012-07-26 00:00:00 Completed [facility] Pneumococcal Polysaccharide, PPSV23 (PNEUMOVAX) 2012-07-26 00:00:00 Completed [facility] Pneumococcal Polysaccharide, PPSV23 (PNEUMOVAX) 2012-07-26 00:00:00 Completed [facility] Pneumococcal Polysaccharide, PPSV23 (PNEUMOVAX) 2012-07-26 00:00:00 Completed [facility] Pneumococcal Polysaccharide, PPSV23 (PNEUMOVAX) 2012-07-26 00:00:00 Completed [facility] Influenza High Dose Unknown Completed [facility] Influenza High Dose Unknown Completed [facility] Influenza Virus Vaccine Unknown Completed [facility] TDAP Unknown Completed [facility] Pneumococcal Polysaccharide, PPSV23 (PNEUMOVAX) Unknown Completed [facility] Influenza High Dose Quad Unknown Completed [facility] Pneumococcal 13 Conjugate, PCV13 (Prevnar 13) Unknown Completed [facility] Influenza High Dose Unknown Completed [facility] Influenza High Dose Unknown Completed [facility] Influenza Virus Vaccine Unknown Completed [facility] TDAP Unknown Completed [facility] Pneumococcal Polysaccharide, PPSV23 (PNEUMOVAX) Unknown Completed [facility] Influenza High Dose Quad Unknown Completed [facility] Pneumococcal 13 Conjugate, PCV13 (Prevnar 13) Unknown Completed [facility] Influenza High Dose Unknown Completed [facility] Influenza High Dose Unknown Completed [facility] Influenza Virus Vaccine Unknown Completed [facility] TDAP Unknown Completed [facility] Pneumococcal Polysaccharide, PPSV23 (PNEUMOVAX) Unknown Completed [facility] Influenza High Dose Quad Unknown Completed [facility] Pneumococcal 13 Conjugate, PCV13 (Prevnar 13) Unknown Completed [facility] Influenza High Dose Unknown Completed [facility] Influenza High Dose Unknown Completed [facility] Influenza Virus Vaccine Unknown Completed [facility] TDAP Unknown Completed [facility] Pneumococcal Polysaccharide, PPSV23 (PNEUMOVAX) Unknown Completed [facility] Influenza High Dose Quad Unknown Completed [facility] Pneumococcal 13 Conjugate, PCV13 (Prevnar 13) Unknown Completed [facility] Influenza High Dose Unknown Completed [facility] Influenza High Dose Unknown Completed [facility] Influenza Virus Vaccine Unknown Completed [facility] TDAP Unknown Completed [facility] Pneumococcal Polysaccharide, PPSV23 (PNEUMOVAX) Unknown Completed [facility] Influenza High Dose Quad Unknown Completed [facility] Pneumococcal 13 Conjugate, PCV13 (Prevnar 13) Unknown Completed [facility] Influenza High Dose Unknown Completed [facility] Influenza High Dose Unknown Completed [facility] Influenza Virus Vaccine Unknown Completed [facility] TDAP Unknown Completed [facility] Pneumococcal Polysaccharide, PPSV23 (PNEUMOVAX) Unknown Completed [facility] Influenza High Dose Quad Unknown Completed [facility] Pneumococcal 13 Conjugate, PCV13 (Prevnar 13) Unknown Completed [facility] Influenza High Dose Unknown Completed [facility] Influenza High Dose Unknown Completed [facility] Influenza Virus Vaccine Unknown Completed [facility] TDAP Unknown Completed [facility] Pneumococcal Polysaccharide, PPSV23 (PNEUMOVAX) [facility] Completed [facility] Pneumococcal 13 Conjugate, PCV13 (Prevnar 13) Unknown Completed [facility] Influenza High Dose Unknown Completed [facility] Influenza High Dose Unknown Completed [facility] Influenza Virus Vaccine Unknown Completed [facility] TDAP Unknown Completed [facility] Pneumococcal Polysaccharide, PPSV23 (PNEUMOVAX) Unknown Completed [facility] Influenza High Dose Quad Unknown Completed [facility] Pneumococcal 13 Conjugate, PCV13 (Prevnar 13) Unknown Completed [facility] Influenza High Dose Unknown Completed [facility] Influenza High Dose Unknown Completed [facility] Influenza Virus Vaccine Unknown Completed [facility] TDAP Unknown Completed [facility] Pneumococcal Polysaccharide, PPSV23 (PNEUMOVAX) Unknown Completed [facility] Influenza High Dose Quad Unknown Completed [facility] Pneumococcal 13 Conjugate, PCV13 (Prevnar 13) Unknown Completed [facility] Influenza High Dose Unknown Completed [facility] Influenza High Dose Unknown Completed [facility] Influenza Virus Vaccine Unknown Completed [facility] TDAP Unknown Completed [facility] Pneumococcal Polysaccharide, PPSV23 (PNEUMOVAX) Unknown Completed [facility] Influenza High Dose Quad Unknown Completed [facility] Pneumococcal 13 Conjugate, PCV13 (Prevnar 13) Unknown Completed [facility] Influenza High Dose Unknown Completed [facility] Influenza High Dose Unknown Completed [facility] Influenza Virus Vaccine Unknown Completed [facility] TDAP Unknown Completed [facility] Pneumococcal Polysaccharide, PPSV23 (PNEUMOVAX) Unknown Completed [facility] Influenza High Dose Quad Unknown Completed [facility] Pneumococcal 13 Conjugate, PCV13 (Prevnar 13) Unknown Completed [facility] Influenza High Dose Unknown Completed [facility] Influenza High Dose Unknown Completed [facility] Influenza Virus Vaccine Unknown Completed [facility] TDAP Unknown Completed [facility] Pneumococcal Polysaccharide, PPSV23 (PNEUMOVAX) Unknown Completed [facility] Influenza High Dose Quad Unknown Completed [facility] Pneumococcal 13 Conjugate, PCV13 (Prevnar 13) Unknown Completed [facility] Influenza High Dose Unknown Completed [facility] Influenza High Dose Unknown Completed [facility] Influenza Virus Vaccine Unknown Completed [facility] TDAP Unknown Completed [facility] Pneumococcal Polysaccharide, PPSV23 (PNEUMOVAX) Unknown Completed [facility] Influenza High Dose Quad Unknown Completed [facility] Pneumococcal 13 Conjugate, PCV13 (Prevnar 13) Unknown Completed [facility] Influenza High Dose Unknown Completed [facility] Influenza High Dose Unknown Completed [facility] Influenza Virus Vaccine Unknown Completed [facility] TDAP Unknown Completed [facility] Pneumococcal Polysaccharide, PPSV23 (PNEUMOVAX) [facility] Completed [facility] Pneumococcal 13 Conjugate, PCV13 (Prevnar 13) Unknown Completed [facility] Influenza High Dose Unknown Completed [facility] Influenza High Dose Unknown Completed [facility] Influenza Virus Vaccine Unknown Completed [facility] TDAP Unknown Completed [facility] Pneumococcal Polysaccharide, PPSV23 (PNEUMOVAX) Unknown Completed [facility] Influenza High Dose Quad Unknown Completed [facility] Pneumococcal 13 Conjugate, PCV13 (Prevnar 13) Unknown Completed [facility] Influenza High Dose Unknown Completed [facility] Influenza High Dose Unknown Completed [facility] Influenza Virus Vaccine Unknown Completed [facility] TDAP Unknown Completed [facility] Pneumococcal Polysaccharide, PPSV23 (PNEUMOVAX) Unknown [facility] High Dose Quad Unknown Completed [facility] Pneumococcal 13 Conjugate, PCV13 (Prevnar 13) Unknown Completed [facility] Influenza High Dose Unknown Completed [facility] Influenza High Dose Unknown Completed [facility] Influenza Virus Vaccine Unknown Completed [facility] TDAP Unknown Completed [facility] Pneumococcal Polysaccharide, PPSV23 (PNEUMOVAX) Unknown Completed [facility] Influenza High Dose Quad Unknown Completed [facility] Pneumococcal 13 Conjugate, PCV13 (Prevnar 13) Unknown Completed [facility] Influenza High Dose Unknown Completed [facility] Influenza High Dose Unknown Completed [facility] Influenza Virus Vaccine Unknown Completed [facility] TDAP Unknown Completed [facility] Pneumococcal Polysaccharide, PPSV23 (PNEUMOVAX) Unknown Completed [facility] Influenza High Dose Quad Unknown Completed [facility] Pneumococcal 13 Conjugate, PCV13 (Prevnar 13) Unknown Completed [facility] Influenza High Dose Unknown Completed [facility] Influenza High Dose Unknown Completed [facility] Influenza Virus Vaccine Unknown Completed [facility] TDAP Unknown Completed [facility] Pneumococcal Polysaccharide, PPSV23 (PNEUMOVAX) Unknown [facility] Dose Quad Unknown Completed [facility] Pneumococcal 13 Conjugate, PCV13 (Prevnar 13) Unknown Completed [facility] Influenza High Dose Unknown Completed [facility] Influenza High Dose Unknown Completed [facility] Influenza Virus Vaccine Unknown Completed [facility] TDAP Unknown Completed [facility] Pneumococcal Polysaccharide, PPSV23 (PNEUMOVAX) Unknown Completed [facility] Influenza High Dose Quad Unknown Completed [facility] Pneumococcal 13 Conjugate, PCV13 (Prevnar 13) Unknown Completed [facility] Influenza High Dose Unknown Completed [facility] Influenza High Dose Unknown Completed [facility] Influenza Virus Vaccine Unknown Completed [facility] TDAP Unknown Completed [facility] Pneumococcal Polysaccharide, PPSV23 (PNEUMOVAX) Unknown Completed [facility] Influenza High Dose Quad Unknown Completed [facility] Pneumococcal 13 Conjugate, PCV13 (Prevnar 13) Unknown Completed [facility] Influenza High Dose Unknown Completed [facility] Influenza High Dose Unknown Completed [facility] Influenza Virus Vaccine Unknown Completed [facility] TDAP Unknown Completed [facility] Pneumococcal Polysaccharide, PPSV23 (PNEUMOVAX) Unknown Completed [facility] Influenza High Dose Quad Unknown Completed [facility] Pneumococcal 13 Conjugate, PCV13 (Prevnar 13) Unknown Completed [facility] Influenza High Dose Unknown Completed [facility] Influenza High Dose Unknown Completed [facility] Influenza Virus Vaccine Unknown Completed [facility] TDAP Unknown Completed [facility] Pneumococcal Polysaccharide, PPSV23 (PNEUMOVAX) Unknown [facility] High Dose Quad Unknown Completed [facility] Pneumococcal 13 Conjugate, PCV13 (Prevnar 13) Unknown Completed [facility] Influenza High Dose Unknown Completed [facility] Influenza High Dose Unknown Completed [facility] Influenza Virus Vaccine Unknown Completed [facility] TDAP Unknown Completed [facility] Pneumococcal Polysaccharide, PPSV23 (PNEUMOVAX) Unknown Completed [facility] Influenza High Dose Quad Unknown Completed [facility] Pneumococcal 13 Conjugate, PCV13 (Prevnar 13) Unknown Completed [facility] Influenza High Dose Unknown Completed [facility] Influenza High Dose Unknown Completed [facility] Influenza Virus Vaccine Unknown Completed [facility] TDAP Unknown Completed [facility] Pneumococcal Polysaccharide, PPSV23 (PNEUMOVAX) Unknown Completed [facility] Influenza High Dose Quad Unknown Completed [facility] Pneumococcal 13 Conjugate, PCV13 (Prevnar 13) Unknown Completed [facility] Influenza High Dose Unknown Completed [facility] Influenza High Dose Unknown Completed [facility] Influenza Virus Vaccine Unknown Completed [facility] TDAP Unknown Completed [facility] Pneumococcal Polysaccharide, PPSV23 (PNEUMOVAX) Unknown Completed [facility] Influenza High Dose Quad Unknown Completed [facility] Pneumococcal 13 Conjugate, PCV13 (Prevnar 13) Unknown Completed [facility] Influenza High Dose Unknown Completed [facility] Influenza High Dose Unknown Completed [facility] Influenza Virus Vaccine Unknown Completed [facility] TDAP Unknown Completed [facility] Pneumococcal Polysaccharide, PPSV23 (PNEUMOVAX) Unknown Completed [facility] Influenza High Dose Quad Unknown Completed [facility] Pneumococcal 13 Conjugate, PCV13 (Prevnar 13) Unknown Completed [facility] Influenza High Dose Unknown Completed [facility] Influenza High Dose Unknown Completed [facility] Influenza Virus Vaccine Unknown Completed [facility] TDAP Unknown Completed [facility] Pneumococcal Polysaccharide, PPSV23 (PNEUMOVAX) Unknown Completed [facility] Influenza High Dose Quad Unknown Completed [facility] Pneumococcal 13 Conjugate, PCV13 (Prevnar 13) Unknown Completed [facility] Influenza High Dose Unknown Completed [facility] Influenza High Dose Unknown Completed [facility] Influenza Virus Vaccine Unknown Completed [facility] TDAP Unknown Completed [facility] Pneumococcal Polysaccharide, PPSV23 (PNEUMOVAX) Unknown Completed [facility] Influenza High Dose Quad Unknown Completed [facility] Pneumococcal 13 Conjugate, PCV13 (Prevnar 13) Unknown Completed [facility] Influenza High Dose Unknown Completed [facility] Influenza High Dose Unknown Completed [facility] Influenza Virus Vaccine Unknown Completed [facility] TDAP Unknown Completed [facility] Pneumococcal Polysaccharide, PPSV23 (PNEUMOVAX) Unknown Completed [facility] Influenza High Dose Quad Unknown Completed [facility] Pneumococcal 13 Conjugate, PCV13 (Prevnar 13) Unknown Completed [facility] Influenza High Dose Unknown Completed [facility] Influenza High Dose Unknown Completed [facility] Influenza Virus Vaccine Unknown Completed [facility] TDAP Unknown Completed [facility] Pneumococcal Polysaccharide, PPSV23 (PNEUMOVAX) Unknown Completed [facility] Influenza High Dose Quad Unknown Completed [facility] Pneumococcal 13 Conjugate, PCV13 (Prevnar 13) Unknown Completed [facility] Influenza High Dose Unknown Completed [facility] Influenza High Dose Unknown Completed [facility] Influenza Virus Vaccine Unknown Completed [facility] TDAP Unknown Completed [facility] Pneumococcal Polysaccharide, PPSV23 (PNEUMOVAX) Unknown Completed [facility] Influenza High Dose Quad Unknown Completed [facility] Pneumococcal 13 Conjugate, PCV13 (Prevnar 13) Unknown Completed [facility] Influenza High Dose Unknown Completed [facility] Influenza High Dose Unknown Completed [facility] Influenza Virus Vaccine Unknown Completed [facility] TDAP Unknown Completed [facility] Pneumococcal Polysaccharide, PPSV23 (PNEUMOVAX) Unknown Completed [facility] Influenza High Dose Quad Unknown Completed [facility] Pneumococcal 13 Conjugate, PCV13 (Prevnar 13) Unknown Completed [facility] Influenza High Dose Unknown Completed [facility] Influenza High Dose Unknown Completed [facility] Influenza Virus Vaccine Unknown Completed [facility] TDAP Unknown Completed [facility] Pneumococcal Polysaccharide, PPSV23 (PNEUMOVAX) Unknown Completed [facility] Influenza High Dose Quad Unknown Completed [facility] Pneumococcal 13 Conjugate, PCV13 (Prevnar 13) Unknown Completed [facility] Influenza High Dose Unknown Completed [facility] Influenza High Dose Unknown Completed [facility] Influenza Virus Vaccine Unknown Completed [facility] TDAP Unknown Completed [facility] Pneumococcal Polysaccharide, PPSV23 (PNEUMOVAX) Unknown Completed [facility] Influenza High Dose Quad Unknown Completed [facility] Pneumococcal 13 Conjugate, PCV13 (Prevnar 13) Unknown Completed [facility] Influenza High Dose Unknown Completed [facility] Influenza High Dose Unknown Completed [facility] Influenza Virus Vaccine Unknown Completed [facility] TDAP Unknown Completed [facility] Pneumococcal Polysaccharide, PPSV23 (PNEUMOVAX) Unknown Completed [facility] Influenza High Dose Quad Unknown Completed [facility] Pneumococcal 13 Conjugate, PCV13 (Prevnar 13) Unknown Completed [facility] Influenza High Dose Unknown Completed [facility] Influenza High Dose Unknown Completed [facility] Influenza Virus Vaccine Unknown Completed [facility] TDAP Unknown Completed [facility] Pneumococcal Polysaccharide, PPSV23 (PNEUMOVAX) Unknown Completed [facility] Influenza High Dose Quad Unknown Completed [facility] Pneumococcal 13 Conjugate, PCV13 (Prevnar 13) Unknown Completed [facility] Influenza High Dose Unknown Completed [facility] Influenza High Dose Unknown Completed [facility] Influenza Virus Vaccine Unknown Completed [facility] TDAP Unknown Completed [facility] Pneumococcal Polysaccharide, PPSV23 (PNEUMOVAX) Unknown Completed [facility] Influenza High Dose Quad Unknown Completed [facility] Pneumococcal 13 Conjugate, PCV13 (Prevnar 13) Unknown Completed [facility] Influenza High Dose Unknown Completed [facility] Influenza High Dose Unknown Completed [facility] Influenza Virus Vaccine Unknown Completed [facility] TDAP Unknown Completed [facility] Pneumococcal Polysaccharide, PPSV23 (PNEUMOVAX) [facility] Com[facility] Pneumococcal 13 Conjugate, PCV13 (Prevnar 13) Unknown Completed [facility] Influenza High Dose Unknown Completed [facility] Influenza High Dose Unknown Completed [facility] Influenza Virus Vaccine Unknown Completed [facility] TDAP Unknown Completed [facility] Pneumococcal Polysaccharide, PPSV23 (PNEUMOVAX) Unknown Completed [facility] Influenza High Dose Quad Unknown Completed [facility] Pneumococcal 13 Conjugate, PCV13 (Prevnar 13) Unknown Completed [facility] Influenza High Dose Unknown Completed [facility] Influenza High Dose Unknown Completed [facility] Influenza Virus Vaccine Unknown Completed [facility] TDAP Unknown Completed [facility] Pneumococcal Polysaccharide, PPSV23 (PNEUMOVAX) Unknown Completed [facility] Influenza High Dose Quad Unknown Completed [facility] Pneumococcal 13 Conjugate, PCV13 (Prevnar 13) Unknown Completed [facility] Influenza High Dose Unknown Completed [facility] Influenza High Dose Unknown Completed [facility] Influenza Virus Vaccine Unknown Completed [facility] TDAP Unknown Completed [facility] Pneumococcal Polysaccharide, PPSV23 (PNEUMOVAX) Unknown Completed [facility] Influenza High Dose Quad Unknown Completed [facility] Pneumococcal 13 Conjugate, PCV13 (Prevnar 13) Unknown Completed [facility] Influenza High Dose Unknown Completed [facility] Influenza High Dose Unknown Completed [facility] Influenza Virus Vaccine Unknown Completed [facility] TDAP Unknown Completed [facility] Pneumococcal Polysaccharide, PPSV23 (PNEUMOVAX) [facility] Completed [facility] Pneumococcal 13 Conjugate, PCV13 (Prevnar 13) Unknown Completed [facility] Influenza High Dose Unknown Completed [facility] Influenza High Dose Unknown Completed [facility] Influenza Virus Vaccine Unknown Completed [facility] TDAP Unknown Completed [facility] Pneumococcal Polysaccharide, PPSV23 (PNEUMOVAX) Unknown Completed [facility] Influenza High Dose Quad Unknown Completed [facility] Pneumococcal 13 Conjugate, PCV13 (Prevnar 13) Unknown Completed [facility] Influenza High Dose Unknown Completed [facility] Influenza High Dose Unknown Completed [facility] Influenza Virus Vaccine Unknown Completed [facility] TDAP Unknown Completed [facility] Pneumococcal Polysaccharide, PPSV23 (PNEUMOVAX) [facility] Completed [facility] Pneumococcal 13 Conjugate, PCV13 (Prevnar 13) Unknown Completed [facility] Influenza High Dose Unknown Completed [facility] Influenza High Dose Unknown Completed [facility] Influenza Virus Vaccine Unknown Completed [facility] TDAP Unknown Completed [facility] Pneumococcal Polysaccharide, PPSV23 (PNEUMOVAX) Unknown Completed [facility] Influenza High Dose Quad Unknown Completed [facility] Pneumococcal 13 Conjugate, PCV13 (Prevnar 13) Unknown Completed [facility] Influenza High Dose Unknown Completed [facility] Influenza High Dose Unknown Completed [facility] Influenza Virus Vaccine Unknown Completed [facility] TDAP Unknown Completed [facility] Pneumococcal Polysaccharide, PPSV23 (PNEUMOVAX) Unknown Completed [facility] Influenza High Dose Quad Unknown Completed [facility] Pneumococcal 13 Conjugate, PCV13 (Prevnar 13) Unknown Completed [facility] Influenza High Dose Unknown Completed [facility] Influenza High Dose Unknown Completed [facility] Influenza Virus Vaccine Unknown Completed [facility] TDAP Unknown Completed [facility] Pneumococcal Polysaccharide, PPSV23 (PNEUMOVAX) Unknown Completed [facility] Influenza High Dose Quad Unknown Completed [facility] Pneumococcal 13 Conjugate, PCV13 (Prevnar 13) Unknown Completed [facility] Influenza High Dose Unknown Completed [facility] Influenza High Dose Unknown Completed [facility] Influenza Virus Vaccine Unknown Completed [facility] TDAP Unknown Completed [facility] Pneumococcal Polysaccharide, PPSV23 (PNEUMOVAX) [facility] Influenza High Dose Quad Unknown Completed [facility] Pneumococcal 13 Conjugate, PCV13 (Prevnar 13) Unknown Completed [facility] Influenza High Dose Unknown Completed [facility] Influenza High Dose Unknown Completed [facility] Influenza Virus Vaccine Unknown Completed [facility] TDAP Unknown Completed [facility] Pneumococcal Polysaccharide, PPSV23 (PNEUMOVAX) Unknown Completed [facility] Influenza High Dose Quad Unknown Completed [facility] Pneumococcal 13 Conjugate, PCV13 (Prevnar 13) Unknown Completed [facility] Influenza High Dose Unknown Completed [facility] Influenza High Dose Unknown Completed [facility] Influenza Virus Vaccine Unknown Completed [facility] TDAP Unknown Completed [facility] Pneumococcal Polysaccharide, PPSV23 (PNEUMOVAX) Unknown Completed [facility] Influenza High Dose Quad Unknown Completed [facility] Pneumococcal 13 Conjugate, PCV13 (Prevnar 13) Unknown Completed [facility] Influenza High Dose Unknown Completed [facility] Influenza High Dose Unknown Completed [facility] Influenza Virus Vaccine Unknown Completed [facility] TDAP Unknown Completed [facility] Pneumococcal Polysaccharide, PPSV23 (PNEUMOVAX) [facility] Influenza High Dose Quad Unknown Completed [facility] Pneumococcal 13 Conjugate, PCV13 (Prevnar 13) Unknown Completed [facility] Influenza High Dose Unknown Completed [facility] Influenza High Dose Unknown Completed [facility] Influenza Virus Vaccine Unknown Completed [facility] TDAP Unknown Completed [facility] Pneumococcal Polysaccharide, PPSV23 (PNEUMOVAX) Unknown Completed [facility] Influenza High Dose Quad Unknown Completed [facility] Pneumococcal 13 Conjugate, PCV13 (Prevnar 13) Unknown Completed [facility] Influenza High Dose Unknown Completed [facility] Influenza High Dose Unknown Completed [facility] Influenza Virus Vaccine Unknown Completed [facility] TDAP Unknown Completed [facility] Pneumococcal Polysaccharide, PPSV23 (PNEUMOVAX) Unknown Completed [facility] Influenza High Dose Quad Unknown Completed [facility] Pneumococcal 13 Conjugate, PCV13 (Prevnar 13) Unknown Completed [facility] Influenza High Dose Unknown Completed [facility] Influenza High Dose Unknown Completed [facility] Influenza Virus Vaccine Unknown Completed [facility] TDAP Unknown Completed [facility] Pneumococcal Polysaccharide, PPSV23 (PNEUMOVAX) Unknown Completed [facility] Influenza High Dose Quad Unknown Completed [facility] Pneumococcal 13 Conjugate, PCV13 (Prevnar 13) Unknown Completed [facility] Influenza High Dose Unknown Completed [facility] Influenza High Dose Unknown Completed [facility] Influenza Virus Vaccine Unknown Completed [facility] TDAP Unknown Completed [facility] Pneumococcal Polysaccharide, PPSV23 (PNEUMOVAX) Unknown Completed [facility] Influenza High Dose Quad Unknown Completed [facility] Pneumococcal 13 Conjugate, PCV13 (Prevnar 13) Unknown Completed [facility] Influenza High Dose Unknown Completed [facility] Influenza High Dose Unknown Completed [facility] Influenza Virus Vaccine Unknown Completed [facility] TDAP Unknown Completed [facility] Pneumococcal Polysaccharide, PPSV23 (PNEUMOVAX) [facility] Completed [facility] Pneumococcal 13 Conjugate, PCV13 (Prevnar 13) Unknown Completed [facility] Influenza High Dose Unknown Completed [facility] Influenza High Dose Unknown Completed [facility] Influenza Virus Vaccine Unknown Completed [facility] TDAP Unknown Completed [facility] Pneumococcal Polysaccharide, PPSV23 (PNEUMOVAX) Unknown Completed [facility] Influenza High Dose Quad Unknown Completed [facility] Pneumococcal 13 Conjugate, PCV13 (Prevnar 13) Unknown Completed [facility] Influenza High Dose Unknown Completed [facility] Influenza High Dose Unknown Completed [facility] Influenza Virus Vaccine Unknown Completed [facility] TDAP Unknown Completed [facility] Pneumococcal Polysaccharide, PPSV23 (PNEUMOVAX) [facility] Completed [facility] Pneumococcal 13 Conjugate, PCV13 (Prevnar 13) Unknown Completed [facility] Influenza High Dose Unknown Completed [facility] Influenza High Dose Unknown Completed [facility] Influenza Virus Vaccine Unknown Completed [facility] TDAP Unknown Completed [facility] Pneumococcal Polysaccharide, PPSV23 (PNEUMOVAX) Unknown Completed [facility] Influenza High Dose Quad Unknown Completed [facility] Pneumococcal 13 Conjugate, PCV13 (Prevnar 13) Unknown Completed [facility] Influenza High Dose Unknown Completed [facility] Influenza High Dose Unknown Completed [facility] Influenza Virus Vaccine Unknown Completed [facility] TDAP Unknown Completed [facility] Pneumococcal Polysaccharide, PPSV23 (PNEUMOVAX) Unknown Completed [facility] Influenza High Dose Quad Unknown Completed [facility] Pneumococcal 13 Conjugate, PCV13 (Prevnar 13) Unknown Completed [facility] Influenza High Dose Unknown Completed [facility] Influenza High Dose Unknown Completed [facility] Influenza Virus Vaccine Unknown Completed [facility] TDAP Unknown Completed [facility] Pneumococcal Polysaccharide, PPSV23 (PNEUMOVAX) Unknown Completed [facility] Influenza High Dose Quad Unknown Completed [facility] Pneumococcal 13 Conjugate, PCV13 (Prevnar 13) Unknown Completed [facility] Influenza High Dose Unknown Completed [facility] Influenza High Dose Unknown Completed [facility] Influenza Virus Vaccine Unknown Completed [facility] TDAP Unknown Completed [facility] Pneumococcal Polysaccharide, PPSV23 (PNEUMOVAX) Unknown Completed [facility] Influenza High Dose Quad Unknown Completed [facility] Pneumococcal 13 Conjugate, PCV13 (Prevnar 13) Unknown Completed [facility] Influenza High Dose Unknown Completed [facility] Influenza High Dose Unknown Completed [facility] Influenza Virus Vaccine Unknown Completed [facility] TDAP Unknown Completed [facility] Pneumococcal Polysaccharide, PPSV23 (PNEUMOVAX) Unknown Completed [facility] Influenza High Dose Quad Unknown Completed [facility] Pneumococcal 13 Conjugate, PCV13 (Prevnar 13) Unknown Completed [facility] Influenza High Dose Unknown Completed [facility] Influenza High Dose Unknown Completed [facility] Influenza Virus Vaccine Unknown Completed [facility] TDAP Unknown Completed [facility] Pneumococcal Polysaccharide, PPSV23 (PNEUMOVAX) Unknown Completed [facility] Influenza High Dose Quad Unknown Completed [facility] Pneumococcal 13 Conjugate, PCV13 (Prevnar 13) Unknown Completed [facility] Influenza High Dose Unknown Completed [facility] Influenza High Dose Unknown Completed [facility] Influenza Virus Vaccine Unknown Completed [facility] TDAP Unknown Completed [facility] Pneumococcal Polysaccharide, PPSV23 (PNEUMOVAX) [facility] Influenza High Dose Quad Unknown Completed [facility] Pneumococcal 13 Conjugate, PCV13 (Prevnar 13) Unknown Completed [facility] Influenza High Dose Unknown Completed [facility] Influenza High Dose Unknown Completed [facility] Influenza Virus Vaccine Unknown Completed [facility] TDAP Unknown Completed [facility] Pneumococcal Polysaccharide, PPSV23 (PNEUMOVAX) Unknown [facility] Influenza High Dose Quad Unknown Completed [facility] Pneumococcal 13 Conjugate, PCV13 (Prevnar 13) Unknown Completed [facility] Influenza High Dose Unknown Completed [facility] Influenza High Dose Unknown Completed [facility] Influenza Virus Vaccine Unknown Completed [facility] TDAP Unknown Completed [facility] Pneumococcal Polysaccharide, PPSV23 (PNEUMOVAX) Unknown Completed [facility] Influenza High Dose Quad Unknown Completed [facility] Pneumococcal 13 Conjugate, PCV13 (Prevnar 13) Unknown Completed [facility] Influenza High Dose Unknown Completed [facility] Influenza High Dose Unknown Completed [facility] Influenza Virus Vaccine Unknown Completed [facility] TDAP Unknown Completed [facility] Pneumococcal Polysaccharide, PPSV23 (PNEUMOVAX) Unknown Completed [facility] Influenza High Dose Quad Unknown Completed [facility] Pneumococcal 13 Conjugate, PCV13 (Prevnar 13) Unknown Completed [facility] Influenza High Dose Unknown Completed [facility] Influenza High Dose Unknown Completed [facility] Influenza Virus Vaccine Unknown Completed [facility] TDAP Unknown Completed [facility] Pneumococcal Polysaccharide, PPSV23 (PNEUMOVAX) Unknown Completed [facility] Influenza High Dose Quad Unknown Completed [facility] Pneumococcal 13 Conjugate, PCV13 (Prevnar 13) Unknown Completed [facility] Influenza High Dose Unknown Completed [facility] Influenza High Dose Unknown Completed [facility] Influenza Virus Vaccine Unknown Completed [facility] TDAP Unknown Completed [facility] Pneumococcal Polysaccharide, PPSV23 (PNEUMOVAX) Unknown Completed [facility] Influenza High Dose Quad Unknown Completed [facility] Pneumococcal 13 Conjugate, PCV13 (Prevnar 13) Unknown Completed [facility] Influenza High Dose Unknown Completed [facility] Influenza High Dose Unknown Completed [facility] Influenza Virus Vaccine Unknown Completed [facility] TDAP Unknown Completed [facility] Pneumococcal Polysaccharide, PPSV23 (PNEUMOVAX) Unknown Completed [facility] Influenza High Dose Quad Unknown Completed [facility] Pneumococcal 13 Conjugate, PCV13 (Prevnar 13) Unknown Completed [facility] Vital Signs Vital Name Observation Time Observation Value Comments S ource Systolic blood pressure 2023-10-19 18:48:00 121 mm[Hg] [facility] Diastolic blood pressure 2023-10-19 18:48:00 78 mm[Hg] [facility] Body height 2023-10-19 18:48:00 177.8 cm [facility] Body weight 2023-10-19 18:48:00 87.045 kg [facility] BMI 2023-10-19 18:48:00 27.53 kg/m2 [facility] Systolic blood pressure 2023-10-11 14:10:00 130 mm[Hg] [facility] Diastolic blood pressure 2023-10-11 14:10:00 82 mm[Hg] [facility] Heart rate 2023-10-11 14:10:00 82 /min [facility] Body height 2023-10-11 14:10:00 177.8 cm [facility] Body weight 2023-10-11 14:10:00 87.317 kg [facility] BMI 2023-10-11 14:10:00 27.62 kg/m2 [facility] Oxygen saturation in Arterial blood by Pulse oximetry 2023-10-11 14:10:00 98 /min [facility] Systolic blood pressure 2023-10-01 19:17:00 129 mm[Hg] [facility] Diastolic blood pressure 2023-10-01 19:17:00 76 mm[Hg] [facility] Heart rate 2023-10-01 19:17:00 68 /min Unive [facility] Body height 2023-10-01 19:17:00 177.8 cm [facility] Body weight 2023-10-01 19:17:00 86.637 kg [facility] BMI 2023-10-01 19:17:00 27.41 kg/m2 [facility] Oxygen saturation in Arterial blood by Pulse oximetry 2023-10-01 19:17:00 98 /min [facility] Systolic blood pressure 2023-09-07 18:56:00 123 mm[Hg] [facility] Diastolic blood pressure 2023-09-07 18:56:00 78 mm[Hg] [facility] Heart rate 2023-09-07 18:56:00 87 /min [facility] Body height 2023-09-07 18:56:00 177.8 cm [facility] Body weight 2023-09-07 18:56:00 86.229 kg [facility] BMI 2023-09-07 18:56:00 27.28 kg/m2 [facility] Oxygen saturation in Arterial blood by Pulse oximetry 2023-09-07 18:56:00 98 /min [facility] Systolic blood pressure 2023-08-20 18:59:00 131 mm[Hg] [facility] Diastolic blood pressure 2023-08-20 18:59:00 88 mm[Hg] [facility] Heart rate 2023-08-20 18:59:00 79 /min Unive [facility] Body temperature 2023-08-20 18:59:00 36.39 Felicia [facility] Body height 2023-08-20 18:59:00 177.8 cm [facility] Body weight 2023-08-20 18:59:00 86.773 kg [facility] BMI 2023-08-20 18:59:00 27.45 kg/m2 [facility] Oxygen saturation in Arterial blood by Pulse oximetry 2023-08-20 18:59:00 96 /min [facility] Systolic blood pressure 2023-07-23 22:09:00 98 mm[Hg] [facility] Diastolic blood pressure 2023-07-23 22:09:00 65 mm[Hg] [facility] Heart rate 2023-07-23 22:09:00 81 /min Unive [facility] Body height 2023-07-23 22:09:00 177.8 cm [facility] Body weight 2023-07-23 22:09:00 86.32 kg [facility] BMI 2023-07-23 22:09:00 27.31 kg/m2 [facility] Oxygen saturation in Arterial blood by Pulse oximetry 2023-07-23 22:09:00 97 /min [facility] Body temperature 2023-06-07 18:07:00 35.94 Felicia [facility] Body weight 2023-06-07 18:07:00 86.41 kg [facility] BMI 2023-06-07 18:07:00 27.33 kg/m2 [facility] Systolic blood pressure 2023-05-26 21:04:00 135 mm[Hg] [facility] Diastolic blood pressure 2023-05-26 21:04:00 83 mm[Hg] [facility] Heart rate 2023-05-26 21:04:00 72 /min Unive [facility] Body temperature 2023-05-26 21:04:00 36.22 Felicia [facility] Body height 2023-05-26 21:04:00 177.8 cm [facility] Body weight 2023-05-26 21:04:00 84.823 kg [facility] BMI 2023-05-26 21:04:00 26.83 kg/m2 [facility] Body temperature 2023-05-24 17:35:00 36.5 Felicia [facility] Body height 2023-05-24 17:35:00 177.8 cm [facility] Body weight 2023-05-24 17:35:00 85.73 kg [facility] BMI 2023-05-24 17:35:00 27.12 kg/m2 [facility] Systolic blood pressure 2023-04-21 17:59:00 136 mm[Hg] [facility] Diastolic blood pressure 2023-04-21 17:59:00 72 mm[Hg] [facility] Heart rate 2023-04-21 17:59:00 89 /min Unive [facility] Body temperature 2023-04-21 17:59:00 35.94 Felicia [facility] Body height 2023-04-21 17:59:00 177.8 cm [facility] Body weight 2023-04-21 17:59:00 84.823 kg [facility] BMI 2023-04-21 17:59:00 26.83 kg/m2 [facility] Systolic blood pressure 2023-04-16 15:59:00 128 mm[Hg] [facility] Diastolic blood pressure 2023-04-16 15:59:00 79 mm[Hg] [facility] Heart rate 2023-04-16 15:59:00 73 /min Unive [facility] Respiratory rate 2023-04-16 15:59:00 18 /min [facility] Body height 2023-04-16 15:59:00 177.8 cm [facility] Body weight 2023-04-16 15:59:00 84.959 kg [facility] BMI 2023-04-16 15:59:00 26.87 kg/m2 [facility] Oxygen saturation in Arterial blood by Pulse oximetry 2023-04-16 15:59:00 99 /min [facility] Systolic blood pressure 2023-04-08 15:52:00 137 mm[Hg] [facility] Diastolic blood pressure 2023-04-08 15:52:00 83 mm[Hg] [facility] Heart rate 2023-04-08 15:52:00 91 /min Unive [facility] Body temperature 2023-04-08 15:52:00 36.67 Felicia [facility] Respiratory rate 2023-04-08 15:52:00 18 /min [facility] Body height 2023-04-08 15:52:00 177.8 cm [facility] Body weight 2023-04-08 15:52:00 83.915 kg [facility] BMI 2023-04-08 15:52:00 26.54 kg/m2 [facility] Oxygen saturation in Arterial blood by Pulse oximetry 2023-04-08 15:52:00 96 /min [facility] Systolic blood pressure 2023-03-31 16:05:00 129 mm[Hg] [facility] Diastolic blood pressure 2023-03-31 16:05:00 79 mm[Hg] [facility] Heart rate 2023-03-31 16:05:00 99 /min Unive [facility] Body temperature 2023-03-31 16:05:00 36.5 Felicia [facility] Respiratory rate 2023-03-31 16:05:00 18 /min [facility] Body height 2023-03-31 16:05:00 177.8 cm [facility] Body weight 2023-03-31 16:05:00 84.369 kg [facility] BMI 2023-03-31 16:05:00 26.69 kg/m2 [facility] Oxygen saturation in Arterial blood by Pulse oximetry 2023-03-31 16:05:00 99 /min [facility] Systolic blood pressure 2023-03-18 14:24:00 130 mm[Hg] [facility] Diastolic blood pressure 2023-03-18 14:24:00 75 mm[Hg] [facility] Heart rate 2023-03-18 14:24:00 68 /min Unive [facility] Body temperature 2023-03-18 14:24:00 36.44 Felicia [facility] Respiratory rate 2023-03-18 14:24:00 16 /min [facility] Body height 2023-03-18 14:24:00 177.8 cm [facility] Body weight 2023-03-18 14:24:00 83.462 kg [facility] BMI 2023-03-18 14:24:00 26.40 kg/m2 [facility] Oxygen saturation in Arterial blood by Pulse oximetry 2023-03-18 14:24:00 95 /min [facility] Systolic blood pressure 2023-03-15 16:08:00 147 mm[Hg] [facility] Diastolic blood pressure 2023-03-15 16:08:00 82 mm[Hg] [facility] Heart rate 2023-03-15 16:07:00 66 /min Unive [facility] Body height 2023-03-15 16:07:00 177.8 cm [facility] Body weight 2023-03-15 16:07:00 87.317 kg [facility] BMI 2023-03-15 16:07:00 27.62 kg/m2 [facility] Systolic blood pressure 2023-03-10 18:53:00 136 mm[Hg] [facility] Diastolic blood pressure 2023-03-10 18:53:00 77 mm[Hg] [facility] Heart rate 2023-03-10 18:53:00 81 /min [facility] Respiratory rate 2023-03-10 18:53:00 19 /min [facility] Body height 2023-03-10 18:53:00 180.3 cm [facility] Body weight 2023-03-10 18:53:00 87.091 kg [facility] BMI 2023-03-10 18:53:00 26.78 kg/m2 [facility] Oxygen saturation in Arterial blood by Pulse oximetry 2023-03-10 18:53:00 97 /min [facility] Systolic blood pressure 2023-03-10 18:53:00 136 mm[Hg] [facility] Diastolic blood pressure 2023-03-10 18:53:00 77 mm[Hg] [facility] Heart rate 2023-03-10 18:53:00 81 /min [facility] Respiratory rate 2023-03-10 18:53:00 19 /min [facility] Body height 2023-03-10 18:53:00 180.3 cm [facility] Body weight 2023-03-10 18:53:00 87.091 kg [facility] BMI 2023-03-10 18:53:00 26.78 kg/m2 [facility] Oxygen saturation in Arterial blood by Pulse oximetry 2023-03-10 18:53:00 97 /min [facility] Systolic blood pressure 2023-02-15 14:22:00 146 mm[Hg] [facility] Diastolic blood pressure 2023-02-15 14:22:00 77 mm[Hg] [facility] Heart rate 2023-02-15 14:22:00 79 /min [facility] Respiratory rate 2023-02-15 14:22:00 16 /min [facility] Body height 2023-02-15 14:22:00 177.8 cm [facility] Body weight 2023-02-15 14:22:00 85.049 kg [facility] BMI 2023-02-15 14:22:00 26.90 kg/m2 [facility] Oxygen saturation in Arterial blood by Pulse oximetry 2023-02-15 14:22:00 98 /min [facility] Systolic blood pressure 2023-02-08 20:42:00 142 mm[Hg] [facility] Diastolic blood pressure 2023-02-08 20:42:00 93 mm[Hg] [facility] Heart rate 2023-02-08 20:42:00 78 /min Unive [facility] Body temperature 2023-02-08 20:42:00 36.5 Felicia [facility] Respiratory rate 2023-02-08 20:42:00 16 /min [facility] Body height 2023-02-08 20:42:00 177.8 cm [facility] Body weight 2023-02-08 20:42:00 86.183 kg [facility] BMI 2023-02-08 20:42:00 27.26 kg/m2 [facility] Oxygen saturation in Arterial blood by Pulse oximetry 2023-02-08 20:42:00 99 /min [facility] Systolic blood pressure 2023-01-29 20:54:00 132 mm[Hg] [facility] Diastolic blood pressure 2023-01-29 20:54:00 76 mm[Hg] [facility] Heart rate 2023-01-29 20:54:00 78 /min [facility] Respiratory rate 2023-01-29 20:54:00 18 /min [facility] Body height 2023-01-29 20:54:00 177.8 cm [facility] Body weight 2023-01-29 20:54:00 86.501 kg [facility] BMI 2023-01-29 20:54:00 27.36 kg/m2 [facility] Oxygen saturation in Arterial blood by Pulse oximetry 2023-01-29 20:54:00 98 /min [facility] Systolic blood pressure 2023-01-05 18:43:00 135 mm[Hg] [facility] Diastolic blood pressure 2023-01-05 18:43:00 79 mm[Hg] [facility] Heart rate 2023-01-05 18:43:00 77 /min Unive [facility] Body height 2023-01-05 18:43:00 177.8 cm [facility] Body weight 2023-01-05 18:43:00 85.684 kg [facility] BMI 2023-01-05 18:43:00 27.10 kg/m2 [facility] Oxygen saturation in Arterial blood by Pulse oximetry 2023-01-05 18:43:00 96 /min [facility] Systolic blood pressure 2022-12-26 16:50:00 111 mm[Hg] [facility] Diastolic blood pressure 2022-12-26 16:50:00 63 mm[Hg] [facility] Heart rate 2022-12-26 16:50:00 89 /min Unive [facility] Body temperature 2022-12-26 16:50:00 36.61 Felicia [facility] Respiratory rate 2022-12-26 16:50:00 17 /min [facility] Body weight 2022-12-26 16:50:00 84.687 kg [facility] BMI 2022-12-26 16:50:00 26.79 kg/m2 [facility] Oxygen saturation in Arterial blood by Pulse oximetry 2022-12-26 16:50:00 99 /min [facility] Systolic blood pressure 2022-11-26 20:06:00 137 mm[Hg] [facility] Diastolic blood pressure 2022-11-26 20:06:00 89 mm[Hg] [facility] Heart rate 2022-11-26 20:06:00 88 /min Unive [facility] Body height 2022-11-26 20:06:00 177.8 cm [facility] Body weight 2022-11-26 20:06:00 84.777 kg [facility] BMI 2022-11-26 20:06:00 26.82 kg/m2 [facility] Oxygen saturation in Arterial blood by Pulse oximetry 2022-11-26 20:06:00 96 /min [facility] Systolic blood pressure 2022-09-17 15:58:00 129 mm[Hg] [facility] Diastolic blood pressure 2022-09-17 15:58:00 69 mm[Hg] [facility] Heart rate 2022-09-17 15:58:00 84 /min [facility] Body height 2022-09-17 15:58:00 177.8 cm [facility] Body weight 2022-09-17 15:58:00 85.186 kg [facility] BMI 2022-09-17 15:58:00 26.95 kg/m2 [facility] Oxygen saturation in Arterial blood by Pulse oximetry 2022-09-17 15:58:00 95 /min [facility] Systolic blood pressure 2022-07-27 17:40:00 120 mm[Hg] [facility] Diastolic blood pressure 2022-07-27 17:40:00 71 mm[Hg] [facility] Heart rate 2022-07-27 17:40:00 83 /min [facility] Respiratory rate 2022-07-27 17:40:00 19 /min [facility] Oxygen saturation in Arterial blood by Pulse oximetry 2022-07-27 17:40:00 97 /min [facility] Body temperature 2022-07-27 14:43:00 37.61 Felicia [facility] Body weight 2022-07-27 14:43:00 83.915 kg [facility] BMI 2022-07-27 14:43:00 26.54 kg/m2 [facility] Systolic blood pressure 2022-06-18 17:46:00 148 mm[Hg] [facility] Diastolic blood pressure 2022-06-18 17:46:00 60 mm[Hg] [facility] Respiratory rate 2022-06-18 17:46:00 20 /min [facility] Oxygen saturation in Arterial blood by Pulse oximetry 2022-06-18 17:46:00 98 /min [facility] Body weight 2022-06-18 13:00:00 83.915 kg [facility] BMI 2022-06-18 13:00:00 26.54 kg/m2 [facility] Systolic blood pressure 2022-06-18 16:55:00 121 mm[Hg] [facility] Diastolic blood pressure 2022-06-18 16:55:00 58 mm[Hg] [facility] Respiratory rate 2022-06-18 16:55:00 16 /min [facility] Oxygen saturation in Arterial blood by Pulse oximetry 2022-06-18 16:55:00 98 /min [facility] Body weight 2022-06-18 13:00:00 83.915 kg [facility] BMI 2022-06-18 13:00:00 26.54 kg/m2 [facility] Systolic blood pressure 2022-06-01 16:58:00 126 mm[Hg] [facility] Diastolic blood pressure 2022-06-01 16:58:00 99 mm[Hg] [facility] Heart rate 2022-06-01 16:58:00 71 /min [facility] Body temperature 2022-06-01 16:58:00 36.78 Felicia [facility] Respiratory rate 2022-06-01 16:58:00 20 /min [facility] Body weight 2022-06-01 16:58:00 83.915 kg [facility] BMI 2022-06-01 16:58:00 26.54 kg/m2 [facility] Oxygen saturation in Arterial blood by Pulse oximetry 2022-06-01 16:58:00 99 /min [facility] Systolic blood pressure 2022-05-19 22:18:00 129 mm[Hg] [facility] Diastolic blood pressure 2022-05-19 22:18:00 74 mm[Hg] [facility] Heart rate 2022-05-19 22:18:00 76 /min [facility] Body temperature 2022-05-19 22:18:00 36.89 Felicia [facility] Respiratory rate 2022-05-19 22:18:00 18 /min [facility] Body height 2022-05-19 22:18:00 177.8 cm [facility] Body weight 2022-05-19 22:18:00 84.732 kg [facility] BMI 2022-05-19 22:18:00 26.80 kg/m2 [facility] Oxygen saturation in Arterial blood by Pulse oximetry 2022-05-19 22:18:00 98 /min [facility] Systolic blood pressure 2022-03-30 18:13:00 135 mm[Hg] [facility] Diastolic blood pressure 2022-03-30 18:13:00 67 mm[Hg] [facility] Heart rate 2022-03-30 18:11:00 66 /min Un[facility] Body temperature 2022-03-30 18:11:00 36.56 Felicia [facility] Respiratory rate 2022-03-30 18:11:00 18 /min [facility] Body height 2022-03-30 18:11:00 177.8 cm [facility] Body weight 2022-03-30 18:11:00 86.818 kg [facility] BMI 2022-03-30 18:11:00 27.46 kg/m2 [facility] Oxygen saturation in Arterial blood by Pulse oximetry 2022-03-30 18:11:00 98 /min [facility] Body weight 2022-03-18 15:50:00 86.682 kg [facility] BMI 2022-03-18 15:50:00 27.42 kg/m2 [facility] Body weight 2022-02-25 19:14:00 85.276 kg [facility] BMI 2022-02-25 19:14:00 26.98 kg/m2 [facility] Systolic blood pressure 2022-02-02 13:30:00 132 mm[Hg] [facility] Diastolic blood pressure 2022-02-02 13:30:00 80 mm[Hg] [facility] Heart rate 2022-02-02 13:30:00 60 /min [facility] Respiratory rate 2022-02-02 13:30:00 16 /min [facility] Body height 2022-02-02 13:30:00 177.8 cm [facility] Body weight 2022-02-02 13:30:00 85.73 kg [facility] BMI 2022-02-02 13:30:00 27.12 kg/m2 [facility] Oxygen saturation in Arterial blood by Pulse oximetry 2022-02-02 13:30:00 99 /min [facility] Systolic blood pressure 2021-10-29 21:34:00 139 mm[Hg] [facility] Diastolic blood pressure 2021-10-29 21:34:00 76 mm[Hg] [facility] Heart rate 2021-10-29 21:34:00 66 /min [facility] Respiratory rate 2021-10-29 21:34:00 18 /min [facility] Body height 2021-10-29 21:34:00 177.8 cm [facility] Body weight 2021-10-29 21:34:00 86.909 kg [facility] BMI 2021-10-29 21:34:00 27.49 kg/m2 [facility] Oxygen saturation in Arterial blood by Pulse oximetry 2021-10-29 21:34:00 98 /min [facility] Procedures Procedure Date / Time Performed Performing Clinician Source POCT HEMOGLOBIN A1C TEST 2023-10-19 18:59:00 Serjio Yao [facility] TRANSTHORACIC ECHO (TTE) COMPLETE 2023-08-19 22:20:56 Kamran Hua [facility] BASIC METABOLIC PANEL (NA, K, CL, CO2, GLUCOSE, BUN, CREATININE, CA) 2023-08-19 20:37:00 Kamran Hua [facility] LIPID PANEL ([id number])(TOTAL CHOLESTEROL, TRIGLYCERIDES, HDL) 2023-08-19 20:37:00 Kimberley Yao [facility] N-TERMINAL PRO-BNP 2023-08-19 20:37:00 Kamran Hua [facility] POCT HEMOGLOBIN A1C TEST 2023-07-23 22:11:00 Serjio Yao [facility] PATIENT AGREEMENTS AND CONTRACTS 2023-04-21 05:01:00 Doctor Unassigned, [place] [facility] POCT URINALYSIS AUTO 2023-03-31 00:00:00 Sergio Painting [facility] XR HAND 3+ VW LEFT 2023-03-18 14:38:10 Heathre Henry [facility] POCT HEMOGLOBIN A1C TEST 2023-03-15 16:12:00 Meet Ludwig [facility] EKG-12 LEAD 2023-03-10 19:03:15 Doctor Unass igned, [place] [facility] EXTERNAL PROVIDER RECORDS 2023-03-01 05:01:00 Do ctor Unassigned, [place] [facility] ASSIGNMENT OF BENEFITS 2023-02-08 21:46:25 Docto r Unassigned, [place] [facility] URINALYSIS 2023-02-08 [facility]:15[facility]OLIC [facility] ([id number]) 2023-02-08 21:05:00 Alcon Oliva [facility] CBC WITH DIFF 2023-02-08 21:05:00 OlivaAlcon rodriguez [facility] CONSENT/REFUSAL FOR DIAGNOSIS AND TREATMENT 2023-02-08 20:36:35 Doctor Unassigned, [place] [facility] DME/SUPPLY JUSTIFICATION 2023-02-04 05:01:00 Doc tor Unassigned, [place] [facility] POCT HEMOGLOBIN A1C TEST 2023-01-29 21:21:00 Luis Colmenares [facility] AUTHORIZATION FOR RELEASE OF PHI 2022-12-10 05:01:00 Doctor Unassigned, [place] [facility] COMP. METABOLIC PANEL ([id number]) 2022-12-04 17:04:00 Evelin Colmenares [facility] PROSTATIC SPECIFIC ANTIGEN 2022-12-04 17:04:00 Franklyn Bañuelos [facility] GLYCOSYLATED HEMOGLOBIN (A1C) 2022-12-04 17:04[facility] 2022-12-04 17:04:00 Franklyn [facility] AUTHORIZATION FOR RELEASE OF PHI 2022-10-23 05:01:00 Doctor Unassigned, [place] [facility] COMP. METABOLIC PANEL ([id number]) 2022-09-18 15:14[facility]00 [facility] 2022-09-18 15:14[facility] [facility] ASSIGNMENT OF BENEFITS 2022-09-17 15:40:48 Docto r Unassigned, [place] [facility] EXTERNAL PROVIDER RECORDS 2022-08-05 06:01:00 Do ctor Unassigned, [place] [facility] XR CHEST 1 VW 2022-07-27 16:06:27 Javier Morris [facility] COMP. METABOLIC PANEL ([id number]) 2022-07-27 15:23:00 Javier Morris [facility] CBC WITH DIFF 2022-07-27 15:23:00 [facility] RAPID INFLUENZA A/B 2022-07-27 15:23:00 Javier Morris [facility] COVID-19 (ID NOW RAPID TESTING) 2022-07-27 15:23:00 Javier Morris [facility] CONSENT/REFUSAL FOR DIAGNOSIS AND TREATMENT 2022-07-27 14:40:28 Doctor Unassigned, [place] [facility] CARDIAC CATHETERIZATION 2022-06-18 15:56:36 Se faiza Hua [facility] CARDIAC CATHETERIZATION 2022-06-18 15:56:36 Se fiaza Hua [facility] CARDIAC CATHETERIZATION 2022-06-18 15:56:36 Se faiza Hua [facility] CARDIAC CATHETERIZATION 2022-06-18 15:56:36 Se faiza Hua [facility] OUTPATIENT CARDIAC CATHETERIZATION DOCUMENTS 2022-06-18 06:01:00 Doctor Unassigned, [place] [facility] CONSENT/REFUSAL FOR DIAGNOSIS AND TREATMENT 2022-06-01 16:39:57 Doctor Unassigned, [place] [facility] POCT SARS-COV-2 ANTIGEN (BINAX NOW) 2022-05-19 22:24:00 Haley Camejo [facility] EXTERNAL PROVIDER RECORDS 2022-04-08 05:01:00 Do ctor Unassigned, [place] [facility] POCT URINALYSIS AUTO 2022-03-30 18:15:00 Clemencia Bañuelos [facility] DISCLOSURE AND CONSENT, MEDICAL AND SURGICAL PROCEDURES 2022-03-30 05:01:00 Doctor Unassigned, [place] [facility] POCT URINALYSIS AUTO 2022-02-02 13:33:00 Clemencia Bañuelos [facility] HB ECG ROUTINE & RHYTHM STRIP 2021-10-29 21:44:44 Kamran Hua [facility] Encounters Start Date/Time End Date/Time Encounter Type Admission Type Attending Clinicians Care Facility Care Department Encounter ID Source 2022-10-13 11:41:41 Outpatient FRANKLYN MASON [facility] SUU [id number] [facility] 2021-11-24 16:22:05 Outpatient R KAMRAN HUA [facility] CCA [id number] [facility] 2021-04-20 22:34:37 Outpatient MARY NARAYAN [facility] DARIELA [id number] [facility] 2021-04-20 20:43:42 Emergency [facility] [id number] [facility] 2024-03-31 11:30:00 2024-03-31 11:30:00 Outpatient BEBE CORTES [facility] [id number] [facility] 2023-11-05 00:00:00 2023-11-05 10:23:41 Refill Kamran Hua [facility] BUILDING 1.2.840.114 350.1.13.10 4.2.7.2.686 [id number] [facility] 2023-10-22 14:30:00 2023-10-22 14:30:00 Outpatient [facility] [id number] [facility] 2023-10-19 15:00:00 2023-10-19 15:15:00 Manager Rail Visit Lab, [facility] 1..840.114 350.1.13.10 4.2.7.2.686 [id number] [facility] 2023-10-19 14:00:00 2023-10-19 14:42:31 Outpatient R ANANN [facility] [id number] [facility] 2023-10-19 14:00:00 2023-10-19 14:42:31 [facility] MED[facility] OFF[facility] BUILD[facility] 1..840.114 350.1.13.10 4.2.7.2.686 [id number] [facility] 2023-10-13 00:00:00 2023-10-13 00:00:00 Kamran Riley [facility] BUILDING 1..840.114 350.1.13.10 4.2.7.2.686 [id number] 059 [id number] [facility] 2023-10-11 09:00:00 2023-10-11 11:03:18 Outpatient R DEDRA EVELIN [facility] [id number] [facility] 2023-10-11 09:00:00 2023-10-11 11:03:18 Office [facility] ADONAY?ISABELLA [facility] MEDICAL OFFICE BUILDING 1.2.840.114 350.1.13.10 4.2.7.2.686 [id number] [id number] [facility] 2023-10-11 00:00:00 2023-10-11 00:00:00 [facility]AY?ISABELLA [facility] 1.840.114 350.1.13.10 4.2.7.2.686 [id number] 044 [id number] [facility] 2023-10-07 00:00:00 2023-10-07 00:00:00 Refill Kamran Hua [facility] BUILDING 1.0.114 350.1.13.10 4.2.7.2.686 [id number] 059 [id number] [facility] 2023-10-01 14:30:00 2023-10-01 14:49:00 Outpatient R EVELIN COLMENARES [facility] [id number] [facility] 2023-10-01 14:30:00 2023-10-01 14:49:00 [facility] ADONAY?ISABELLA [facility] 1.0.114 350.1.13.10 4.2.7.2.686 [id number] 044 [id number] [facility] 2023-09-27 00:00:00 2023-09-27 00:00:00 Telephone [facility] ADONAY?ISABELLA [facility] 1.20.114 350.1.13.10 4.2.7.2.686 [id number] 044 [id number] [facility] 2023-09-12 00:00:00 2023-09-12 00:00:00 Refill Kamran Hua [facility] BUILDING 1.840.114 350.1.13.10 4.2.7.2.686 [id number] 059 [id number] [facility] 2023-09-07 14:30:00 2023-09-07 14:30:00 Office Visit Evelin Colmenares Katherine M [facility]?ISABELLA [facility] 1..840.114 350.1.13.10 4.2.7.2.686 [id number] 044 [id number] [facility] 2023-09-07 14:30:00 2023-09-07 14:24:12 Outpatient R CHANA ANNA [facility] [id number] [facility] 2023-08-30 00:00:00 2023-08-30 00:00:00 Telephone Kamran Hua [facility] BUILDING 1..840.114 350.1.13.10 4.2.7.2.686 [id number] 059 [id number] [facility] 2023-08-27 10:15:00 2023-08-27 16:27:16 Outpatient R KAMRAN HUA [facility] [id number] [facility] 2023-08-27 10:15:00 2023-08-27 10:30:00 Manager Rail Visit Lab, Ang - Db Unknown, Attending [facility] 1..840.114 350.1.13.10 4.2.7.2.686 [id number] [facility] 2023-08-20 13:00:00 2023-08-20 13:30:00 Office Visit Kamran Hua [facility] BUILDING 1..840.114 350.1.13.10 4.2.7.2.686 [id number] 059 [id number] [facility] 2023-08-20 13:00:00 2023-08-20 13:00:00 Outpatient R KAMRAN HUA [facility] [id number] [facility] 2023-08-19 15:31:28 2023-08-19 23:59:00 Hospital Encounter Kamran Hua [facility] BUILDING 1.2.840.114 350.1.13.10 4.2.7.2.686 [id number] [facility] 2023-08-19 14:30:00 2023-08-19 15:12:39 Outpatient R KAMRAN HUA [facility] [id number] [facility] 2023-08-19 14:30:00 2023-08-19 15:12:39 Manager Rail Visit Lab, Lane Verdugo, Attending [facility]?MARJORIECyn BYRNE MEDICAL OFFICE BUILDING 1..840.114 350.1.13.10 4.2.7.2.686 [id number] [facility] 2023-08-17 00:00:00 2023-08-17 00:00:00 Telephone Kamran Hua [facility] BUILDING 1..840.114 350.1.13.10 4.2.7.2.686 [id number] 059 [id number] [facility] 2023-08-13 00:00:00 2023-08-13 00:00:00 Evelin Singh [facility]?ISABELLA [facility] 1..840.114 350.1.13.10 4.2.7.2.686 [id number] [id number] [facility] 2023-07-23 16:30:00 2023-07-23 17:18:13 Outpatient R KIMBERLEY YAO [facility] [id number] [facility] 2023-07-23 16:30:00 2023-07-23 17:18:13 Office Visit Kimberley Yao [facility]LL[facility] 1..840.114 350.1.13.10 4.2.7.2.686 [id number] [facility] 2023-07-07 13:45:00 2023-07-07 14:38:02 Outpatient LIBORIO MERCADO [facility] [id number] [facility] 2023-07-07 13:45:00 2023-07-07 14:38:02 [facility]illary [facility] [place] [facility] 1.2.840.114 350.1.13.10 4.2.7.2.686 [id number] [facility] 2023-06-28 13:00:00 2023-06-28 14:57:07 Ancillary Visit [facility] [place] [facility] 1.2.840.114 350.1.13.10 4.2.7.2.686 [id number] [facility] 2023-06-24 11:30:00 2023-06-24 11:30:00 Outpatient KAYLIE RODARTE [facility] [id number] [facility] 2023-06-22 14:00:00 2023-06-22 14:00:00 Outpatient KIMBERLEY GARNER [facility] [id number] [facility] 2023-06-07 12:50:00 2023-06-07 13:00:00 Office Visit Liborio Ceballos [facility] 1.2.840.114 350.1.13.10 4.2.7.2.686 [id number] [facility] 2023-06-07 12:50:00 2023-06-07 12:50:00 Outpatient LIBORIO MERCADO [facility] [id number] [facility] 2023-06-03 11:00:00 2023-06-03 11:00:00 Outpatient KAYLIE RODARTE [facility] [id number] [facility] 2023-05-26 15:20:00 2023-05-26 16:21:07 Outpatient R LIBORIO CEBALLOS [facility] [id number] [facility] 2023-05-26 15:20:00 2023-05-26 16:21:07 Office Visit Liborio Ceballos [facility] 1.840.114 350.1.13.10 4.2.7.2.686 [id number] [facility] 2023-05-24 12:40:00 2023-05-24 12:50:00 Office Visit Liborio Ceballos [facility] 1.840.114 350.1.13.10 4.2.7.2.686 [id number] [facility] 2023-05-24 12:40:00 2023-05-24 12:40:00 Outpatient R LIBORIO CEBALLOS [facility] [id number] [facility] 2023-05-14 00:00:00 2023-05-14 00:00:00 Telephone Evelin Colmenares [facility] ADONAY?ISABELLA [facility]ILD[facility] 1.840.114 350.1.13.10 4.2.7.2.686 [id number] [id number] [facility] 2023-04-28 14:15:00 2023-04-28 14:15:00 Outpatient R BEBE PAINTING [facility] [id number] [facility] 2023-04-21 13:30:00 2023-04-21 13:53:46 Outpatient R LIBORIO CEBALLOS [facility] [id number] [facility] 2023-04-21 13:30:00 2023-04-21 13:53:46 Office Visit Liborio Ceballos [facility] 1.840.114 350.1.13.10 4.2.7.2.686 [id number] [facility] 2023-04-21 00:00:00 2023-04-21 00:00:00 Orders Only Doctor Unassigned, [place] [facility] 1.20.114 350.1.13.10 4.2.7.2.686 [id number] [facility] 2023-04-16 11:00:00 2023-04-16 11:29:27 Outpatient R BETHANYCELESTE EVELIN [facility] [id number] [facility] 2023-04-16 11:00:00 2023-04-16 11:29:27 Office [facility] MEDICAL OFFICE BUILDING 1.114 350.1.13.10 4.2.7.2.686 [id number] [id number] [facility] 2023-04-14 00:00:00 2023-04-14 00:00:00 Refill Keon Scherer [facility] MEDICAL OFFICE BUILDING 1.114 350.1.13.10 4.2.7.2.686 [id number] [id number] [facility] 2023-04-14 00:00:00 2023-04-14 00:00:00 Telephone Dedra [facility] MEDICAL OFFICE BUILDING 1.114 350.1.13.10 4.2.7.2.686 [id number] [id number] [facility] 2023-04-08 11:15:00 2023-04-08 11:28:19 Outpatient R KAYLIE HUA [facility] [id number] [facility] 2023-04-08 11:15:00 2023-04-08 11:28:19 Office Visit Kaylie Hua [facility] 1.114 350.1.13.10 4.2.7.2.686 [id number] [facility] 2023-04-08 00:00:00 2023-04-08 00:00:00 Telephone Franklyn Bañuelos [facility] NAL BUILDING 1.114 350.1.13.10 4.2.7.2.686 [id number] [facility] 2023-04-05 00:00:00 2023-04-05 00:00:00 Telephone Evelin Colmenares [facility]?ISAEBLLA ADAM MEDICAL OFFICE BUILDING 1.114 350.1.13.10 4.2.7.2.686 [id number] [id number] [facility] 2023-03-31 11:00:00 2023-03-31 11:39:00 Out[facility] [id number] [facility] 2023-03-31 11:00:00 2023-03-31 11:39:00 Office Visit Bebe Painting [facility] BUILDING 1.114 350.1.13.10 4.2.7.2.686 [id number] [facility] 2023-03-22 10:30:00 2023-03-22 10:30:00 Outpatient R EVELIN COLMENARES [facility] [id number] [facility] 2023-03-22 00:00:00 2023-03-22 00:00:00 Patient Secure Msg Doctor Unassigned, [place] [facility] 1.114 350.1.13.10 4.2.7.2.686 [id number] [facility] 2023-03-18 09:30:42 2023-03-18 23:59:00 Hospital Encounter Heather Henry [facility]?ISABELLA [facility] MEDICAL OFFICE BUILDING 1.114 350.1.13.10 4.2.7.2.686 [id number] [facility] 2023-03-18 09:30:00 2023-03-18 14:48:03 Outpatient R HEATHER HENRY CRAIG [facility] [id number] [facility] 2023-03-18 09:30:00 2023-03-18 14:48:03 Office Visit Heather Henry [facility] OFF[facility] BUILD[facility] 1.84.114 350.1.13.10 4.2.7.2.686 [id number] [facility] 2023-03-15 11:30:00 2023-03-15 12:13:02 Outpatient R MEET LUDWIG VANI DSOUZA [facility] [id number] [facility] 2023-03-15 11:30:00 2023-03-15 12:13:02 Office Visit Meet Ludwig [facility] MEDICAL OFFICE BUILDING 1.84.114 350.1.13.10 4.2.7.2.686 [id number] [facility] 2023-03-10 14:30:00 2023-03-10 15:56:10 Outpatient R KAMRAN HUA [facility] [id number] [facility] 2023-03-10 14:30:00 2023-03-10 15:56:10 Office Visit Kamran Hua [facility] NAL BUILDING 1.84.114 350.1.13.10 4.2.7.2.686 [id number] [facility] 2023-03-01 00:00:00 2023-03-01 00:00:00 Orders Only Doctor Unassigned, [place] [facility] 1.84.114 350.1.13.10 4.2.7.2.686 [id number] [facility] 2023-02-15 09:30:00 2023-02-15 10:14:06 Outpatient R EVELIN COLMENARES [facility] [id number] [facility] 2023-02-15 09:30:00 2023-02-15 10:14:06 Office Visit [facility]A [facility] 1.2.840.114 350.1.13.10 4.2.7.2.686 [id number] [facility] 2023-02-08 15:43:00 2023-02-08 17:11:00 Emergency X SINGER ALCON [facility] [id number] [facility] 2023-02-08 15:43:00 2023-02-08 17:11:00 Emergency Galo Olivaip [facility] 1..840.114 350.1.13.10 4.2.7.2.686 [id number] [facility] 2023-02-04 00:00:00 2023-02-04 00:00:00 Orders Only Doctor Unassigned, [place] [facility] 1.840.114 350.1.13.10 4.2.7.2.686 [id number] [facility] 2023-01-29 16:30:00 2023-01-29 17:05:30 Outpatient R EVELIN COLMENARES [facility] [id number] [facility] 2023-01-29 16:30:00 2023-01-29 17:05:30 [facility] 1..840.114 350.1.13.10 4.2.7.2.686 [id number] [id number] [facility] 2023-01-20 00:00:00 2023-01-20 00:00:00 Telephone Franklyn Bañuelos [facility] 1.2840.114 350.1.13.10 4.2.7.2.686 [id number] [facility] 2023-01-05 13:30:00 2023-01-05 14:27:23 Outpatient R EVELIN COLMENARES [facility] [id number] [facility] 2023-01-05 13:30:00 2023-01-05 14:27:23 Office Visit Fariba [facility]?ISABELLA [facility]ILD[facility] 1.2840.114 350.1.13.10 4.2.7.2.686 [id number] [facility] 2022-12-26 11:40:00 2022-12-26 11:59:22 Outpatient R ROWDY ENRIQUE [facility] [id number] [facility] 2022-12-26 11:40:00 2022-12-26 11:59:22 Urgent Care Rowdy Enrique Unknown, Attending [facility]?MARJORIE CATY MEDICAL OFFICE BUILDING 1.2840.114 350.1.13.10 4.2.7.2.686 [id number] [facility] 2022-12-23 00:00:00 2022-12-23 00:00:00 Telephone Tyra [facility] ADONAY?[facility] MEDICAL OFFICE BUILDING 1.2.840.114 350.1.13.10 4.2.7.2.686 [id number] [id number] [facility] 2022-12-10 00:00:00 2022-12-10 00:00:00 Telephone [facility] AD[facility]AY?[facility] MEDICAL OFFICE BUILDING 1.2.840.114 350.1.13.10 4.2.7.2.686 [id number] 044 [id number] [facility] 2022-12-10 00:00:00 2022-12-10 00:00:00 Orders Only Doctor Unassigned, [place] [facility] 1.2840.114 350.1.13.10 4.2.7.2.686 [id number] [facility] 2022-12-04 12:15:00 2022-12-04 12:15:00 Outpatient R EVELIN COLMENARES [facility] [id number] [facility] 2022-12-04 12:15:00 2022-12-04 12:15:00 Manager Rail Visit Lab, Lane Escobar Dedra [facility] ADONAY?[facility] MEDICAL OFFICE BUILDING 1.284.114 350.1.13.10 4.2.7.2.686 [id number] [facility] 2022-12-03 00:00:00 2022-12-03 00:00:00 Telephone [facility] ADONAY?[facility] MEDICAL OFFICE BUILDING 1.284.114 350.1.13.10 4.2.7.2.686 [id number] 044 [id number] [facility] 2022-11-26 15:00:00 2022-11-26 16:06:01 Outpatient R EVELIN COLMENARES [facility] [id number] [facility] 2022-11-26 15:00:00 2022-11-26 16:06:01 Office [facility] ADONAY?[facility] MEDICAL OFFICE BUILDING 1.284.114 350.1.13.10 4.2.7.2.686 [id number] [facility] 2022-11-19 00:00:00 2022-11-19 00:00:00 Refill [facility] ADONAY?[facility] MEDICAL OFFICE BUILDING 1.2840.114 350.1.13.10 4.2.7.2.686 [id number] 044 [id number] [facility] 2022-10-26 11:00:00 2022-10-26 11:00:00 Outpatient R KAMRAN HUA [facility] [id number] [facility] 2022-10-23 00:00:00 2022-10-23 00:00:00 Orders Only Doctor Unassigned, [place] [facility] 1.2840.114 350.1.13.10 4.2.7.2.686 [id number] [facility] 2022-10-13 00:00:00 2022-10-13 00:00:00 Telephone Sarmad [facility] 1.0.114 350.1.13.10 4.2.7.2.686 [id number] [facility] 2022-10-05 00:00:00 2022-10-05 00:00:00 Telephone Sarmad [facility] BUILDING 1.114 350.1.13.10 4.2.7.2.686 [id number] [facility] 2022-09-29 11:15:00 2022-09-29 11:59:23 Outpatient R SARMAD [facility] [id number] [facility] 2022-09-24 00:00:00 2022-09-24 00:00:00 [facility] MED[facility] OFFICE BUILDING 1.114 350.1.13.10 4.2.7.2.686 [id number] [id number] [facility] 2022-09-18 10:00:00 2022-09-18 10:28:03 Manager Rail Visit Lab, Lane Colmenares [facility] 1..114 350.1.13.10 4.2.7.2.686 [id number] [facility] 2022-09-18 10:00:00 2022-09-18 10:00:00 Outpatient R EVELIN COLMENARES [facility] [id number] [facility] 2022-09-18 00:00:00 2022-09-18 00:00:00 Pre Visit Outreach Jayden Horan [facility] 1.0114 350.1.13.10 4.2.7.2.686 [id number] [facility] 2022-09-17 11:00:00 2022-09-17 11:31:02 Outpatient R EVELIN COLMENARES [facility] [id number] [facility] 2022-09-17 11:00:00 2022-09-17 11:31:02 Office Visit Dedra [facility] MEDICAL OFFICE BUILDING 1.84114 350.1.13.10 4.2.7.2.686 [id number] [id number] [facility] 2022-09-17 00:00:00 2022-09-17 00:00:00 Orders Only Doctor Unassigned, [place] [facility] 1.0.114 350.1.13.10 4.2.7.2.686 [id number] [id number] [facility] 2022-09-17 00:00:00 2022-09-17 00:00:00 Refill Keon Scherer [facility] MEDICAL OFFICE BUILDING 1..114 350.1.13.10 4.2.7.2.686 [id number] [id number] [facility] 2022-09-15 00:00:00 2022-09-15 00:00:00 Refill Dedra [facility] ADONAY?[facility] MEDICAL OFFICE BUILDING 1.114 350.1.13.10 4.2.7.2.686 [id number] 044 [id number] [facility] 2022-09-14 00:00:00 2022-09-14 00:00:00 Refill Fariba [facility] OFF[facility] BUILDING 1..840.114 350.1.13.10 4.2.7.2.686 [id number] [id number] [facility] 2022-08-10 13:00:00 2022-08-10 13:00:00 Outpatient EVELIN RAMIRES [facility] [id number] [facility] 2022-08-05 00:00:00 2022-08-05 00:00:00 Orders Only Doctor Unassigned, [place] [facility] 1.840.114 350.1.13.10 4.2.7.2.686 [id number] [facility] 2022-07-27 13:30:00 2022-07-27 13:30:00 Outpatient Serjio EVELIN COLMENARES [facility] [id number] [facility] 2022-07-27 08:49:00 2022-07-27 12:38:00 Emergency X JAVIER [facility] ERT [id number] [facility] 2022-07-27 08:49:00 2022-07-27 12:38:00 Emergency Javier Morris S [facility] 1.840.114 350.1.13.10 4.2.7.2.686 [id number] [facility] 2022-07-13 00:00:00 2022-07-13 00:00:00 [facility] 1..840.114 350.1.13.10 4.2.7.2.686 [id number] [facility] 2022-07-09 00:00:00 2022-07-09 00:00:00 Telephone Dedra [facility] 1.2840.114 350.1.13.10 4.2.7.2.686 [id number] [facility] 2022-06-22 00:00:00 2022-06-22 00:00:00 [facility] 1.840.114 350.1.13.10 4.2.7.2.686 [id number] [facility] 2022-06-18 06:26:00 2022-06-18 12:25:00 Outpatient R [facility] [id number] [facility] 2022-06-18 06:26:00 2022-06-18 12:25:00 Hospital Encounter Kamran Hua [facility] 1.0.114 350.1.13.10 4.2.7.2.686 [id number] [facility] 2022-06-18 10:00:00 2022-06-18 11:00:00 Surgery Kenn Christine [facility] 1.2840.114 350.1.13.10 4.2.7.2.686 [id number] [facility] 2022-06-18 00:00:00 2022-06-18 00:00:00 [facility] 1.2840.114 350.1.13.10 4.2.7.2.686 [id number] [facility] 2022-06-18 00:00:00 2022-06-18 00:00:00 Orders Only Doctor Unassigned, [place] [facility] 1.2840.114 350.1.13.10 4.2.7.2.686 [id number] [facility] 2022-06-16 11:45:00 2022-06-16 12:00:00 [address] [employer] Visit Pob, Adc Lab Main Kamran Hua [facility] 1..840.114 350.1.13.10 4.2.7.2.686 [id number] [facility] 2022-06-16 11:45:00 2022-06-16 11:45:00 Outpatient R KAMRAN HUA [facility] [id number] [facility] 2022-06-16 08:00:00 2022-06-16 08:00:00 Outpatient R [facility] [id number] [facility] 2022-06-01 11:00:00 2022-06-01 11:25:00 Emergency X FADUMO [facility]NAM[facility] ERT [id number] [facility] 2022-06-01 11:00:00 2022-06-01 11:25:00 Emergency Fadumo Mcnamara T [facility] 1..840.114 350.1.13.10 4.2.7.2.686 [id number] [facility] 2022-05-20 11:00:00 2022-05-20 11:00:00 Outpatient R [facility] [id number] [facility] 2022-05-19 16:20:00 2022-05-19 16:38:33 Outpatient R HALEY CAMEJO [facility] [id number] [facility] 2022-05-19 16:20:00 2022-05-19 16:38:33 Urgent Care Haley Camejo Unknown, Attending [facility] 1..840.114 350.1.13.10 4.2.7.2.686 [id number] [facility] 2022-05-08 00:00:00 2022-05-08 00:00:00 Telephone Kamran HuaE [facility] 1.2840.114 350.1.13.10 4.2.7.2.686 [id number] [facility] 2022-04-29 00:00:00 2022-04-29 00:00:00 Telephone Kamran Hua [facility] BUILDING 1.2840.114 350.1.13.10 4.2.7.2.686 [id number] [facility] 2022-04-27 00:00:00 2022-04-27 00:00:00 Telephone Kamran Hua [facility] 1.20.114 350.1.13.10 4.2.7.2.686 [id number] [facility] 2022-04-18 00:00:00 2022-04-18 00:00:00 Nehal Hernandez [facility] 1.84.114 350.1.13.10 4.2.7.2.686 [id number] [facility] 2022-04-08 00:00:00 2022-04-08 00:00:00 Orders Only Doctor Unassigned, [place] [facility] 1.2840.114 350.1.13.10 4.2.7.2.686 [id number] [facility] 2022-03-30 13:00:00 2022-03-30 14:03:44 Outpatient R FRANKLYN BAÑUELOS [facility] [id number] [facility] 2022-03-30 13:00:00 2022-03-30 14:03:44 Office Visit Franklyn Bañuelos Rm, Adc Surg Spec Procedure [facility] BUILDING 1.2840.114 350.1.13.10 4.2.7.2.686 [id number] [facility] 2022-03-30 00:00:00 2022-03-30 00:00:00 Orders Only Doctor Unassigned, [place] [facility] 1.20.114 350.1.13.10 4.2.7.2.686 [id number] [facility] 2022-03-26 00:00:00 2022-03-26 00:00:00 Refill Sarmad [facility] BUILDING 1.2840.114 350.1.13.10 4.2.7.2.686 [id number] [facility] 2022-03-18 10:00:00 2022-03-18 10:36:16 Nurse Visit Nurse, [facility] Surgery [facility] BUILDING 1.284.114 350.1.13.10 4.2.7.2.686 [id number] [facility] 2022-03-18 10:00:00 2022-03-18 10:00:00 Outpatient R SARMAD [facility] [id number] [facility] 2022-03-09 14:00:00 2022-03-09 14:00:00 Outpatient R SARMAD [facility] [id number] [facility] 2022-03-03 00:00:00 2022-03-03 00:00:00 Refill [facility]velin [facility] 1.284.114 350.1.13.10 4.2.7.2.686 [id number] [facility] 2022-02-25 13:15:00 2022-02-25 13:15:00 Nurse Visit Nurse, [facility] Surgery [facility] BUILDING 1.284.114 350.1.13.10 4.2.7.2.686 [id number] [facility] 2022-02-25 13:15:00 2022-02-25 13:02:27 Outpatient R SARMAD [facility] [id number] [facility] 2022-02-02 08:15:00 2022-02-02 09:02:46 Outpatient R SARMAD [facility] [id number] [facility] 2022-02-02 08:15:00 2022-02-02 09:02:46 Office Visit Sarmad [facility] NAL BUILDING 1.2.840.114 350.1.13.10 4.2.7.2.686 [id number] [facility] 2022-01-29 11:45:00 2022-01-29 11:45:00 Outpatient R SARMAD [facility] [id number] [facility] 2022-01-22 00:00:00 2022-01-22 00:00:00 Refill Dheeraj Del Realful A [facility] ADONAY?[facility] MEDICAL OFFICE BUILDING 1.2.840.114 350.1.13.10 4.2.7.2.686 [id number] [facility] 2022-01-22 00:00:00 2022-01-22 00:00:00 Refill Dheeraj Del Realful A [facility]AY?[facility] MEDICAL OFFICE BUILDING 1.2.840.114 350.1.13.10 4.2.7.2.686 [id number] [id number] [facility] 2022-01-22 00:00:00 2022-01-22 00:00:00 Refill Keon Scherer [facility]ONAY?[facility] MEDICAL OFFICE BUILDING 1.2.840.114 350.1.13.10 4.2.7.2.686 [id number] [facility] 2022-01-19 13:15:00 2022-01-19 13:25:36 Manager Rail Visit Lab, Lane [place] [facility] MEDICAL OFFICE BUILDING 1..840.114 350.1.13.10 4.2.7.2.686 [id number] [facility] 2022-01-19 13:15:00 2022-01-19 13:15:00 Outpatient R EVELIN COLMENARES [facility] [id number] [facility] 2022-01-19 00:00:00 2022-01-19 00:00:00 Telephone [facility] MEDICAL OFFICE BUILDING 1.840.114 350.1.13.10 4.2.7.2.686 [id number] [facility] 2022-01-16 13:00:00 2022-01-16 23:59:00 Outpatient R EVELIN COLMENARES [facility] [id number] [facility] 2022-01-16 13:00:00 2022-01-16 13:00:00 Outpatient R EVELIN COLMENARES [facility] [id number] [facility] 2022-01-16 12:15:00 2022-01-16 12:30:00 Manager Rail Visit Lab, Lane [place] [facility] MEDICAL OFFICE BUILDING 1.840.114 350.1.13.10 4.2.7.2.686 [id number] [facility] 2022-01-16 11:30:00 2022-01-16 12:24:17 [facility] AD[facility]AY?[facility] MEDICAL OFFICE BUILDING 1..840.114 350.1.13.10 4.2.7.2.686 [id number] [facility] 2022-01-16 11:30:00 2022-01-16 12:24:17 Outpatient R EVELIN COLMENARES [facility] [id number] [facility] 2022-01-16 11:30:00 2022-01-16 11:30:00 Outpatient R EVELIN COLMENARES [facility] [id number] [facility] 2021-12-30 14:27:53 2021-12-30 23:59:00 Outpatient R EVELIN COLMENARES [facility] [id number] [facility] 2021-12-30 13:30:00 2021-12-30 15:03:09 Outpatient R EVELIN COLMENARES [facility] [id number] [facility] 2021-12-30 13:30:00 2021-12-30 15:03:09 Office Visit [facility] MEDICAL OFFICE BUILDING 1.2.840.114 350.1.13.10 4.2.7.2.686 [id number] [facility] 2021-12-30 13:30:00 2021-12-30 13:30:00 Outpatient R EVELIN COLMENARES [facility] [id number] [facility] 2021-12-26 00:00:00 2021-12-26 00:00:00 Telephone [facility]iba [facility] MEDICAL OFFICE BUILDING 1.2.840.114 350.1.13.10 4.2.7.2.686 [id number] [facility] 2021-12-24 13:00:00 2021-12-24 13:00:00 Outpatient R KAMRAN HUA [facility] [id number] [facility] 2021-12-24 13:00:00 2021-12-24 13:00:00 Outpatient R KAMRAN HUA [facility] [id number] [facility] 2021-12-24 13:00:00 2021-12-24 13:00:00 Outpatient R HUA, KAMRAN [facility] [id number] [facility] 2021-12-24 13:00:00 2021-12-24 13:00:00 Outpatient R HUA, KAMRAN [facility] [id number] [facility] 2021-12-24 00:00:00 2021-12-24 00:00:00 Telephone Kamran Hua [facility] 1.2.840.114 350.1.13.10 4.2.7.2.686 [id number] [facility] 2021-12-24 00:00:00 2021-12-24 00:00:00 Telephone Dedra [facility] MEDICAL OFFICE BUILDING 1..840.114 350.1.13.10 4.2.7.2.686 [id number] [facility] 2021-12-19 14:30:00 2021-12-19 14:58:55 [facility] [id number] [facility] 2021-12-19 14:30:00 2021-12-19 14:58:55 Office Visit Fariba [facility] MEDICAL OFFICE BUILDING 1..840.114 350.1.13.10 4.2.7.2.686 [id number] [facility] 2021-12-19 00:00:00 2021-12-19 00:00:00 Telephone Kamran Hua [facility] NAL BUILDING 1..840.114 350.1.13.10 4.2.7.2.686 [id number] [facility] 2021-12-02 11:30:00 2021-12-02 11:30:00 Outpatient R [facility] [id number] [facility] 2021-12-02 11:00:00 2021-12-02 11:00:00 Outpatient R [facility] [id number] [facility] 2021-11-26 00:00:00 2021-11-26 00:00:00 Telephone Elinor Jimenez [facility] AND [facility] 1..840.114 350.1.13.10 4.2.7.2.686 [id number] [facility] 2021-11-25 14:30:47 2021-11-25 23:59:00 Outpatient R ELINOR JIMENEZ DENISE [facility] [id number] [facility] 2021-11-25 14:30:47 2021-11-25 23:59:00 Hospital Encounter Elinor Jimenez [facility]PEC [facility] 1..840.114 350.1.13.10 4.2.7.2.686 [id number] [facility] 2021-11-25 15:00:00 2021-11-25 15:48:19 Outpatient R ELINOR JIMENEZ DENISE [facility] [id number] [facility] 2021-11-25 15:00:00 2021-11-25 15:48:19 Office Visit Elinor Jimenez [facility] 1..840.114 350.1.13.10 4.2.7.2.686 [id number] [facility] 2021-11-25 14:00:00 2021-11-25 14:00:00 Outpatient R ELINOR JIMENEZ DENISE [facility] [id number] [facility] 2021-11-25 14:00:00 2021-11-25 14:00:00 Outpatient ELINOR ENAMORADO DENISE [facility] [id number] [facility] 2021-11-20 00:00:00 2021-11-20 00:00:00 Telephone Elinor Jimenez [facility] AND [facility] 1.114 350.1.13.10 4.2.7.2.686 [id number] [facility] 2021-11-18 00:00:00 2021-11-18 00:00:00 Telephone Kamran Hua [facility] 1.114 350.1.13.10 4.2.7.2.686 [id number] [facility] 2021-11-18 00:00:00 2021-11-18 00:00:00 Nehal Hernandez [facility] MEDICAL OFFICE BUILDING 1.114 350.1.13.10 4.2.7.2.686 [id number] [facility] 2021-11-07 13:00:00 2021-11-07 14:01:44 Outpatient R GEE [facility] [id number] [facility] 2021-11-07 13:00:00 2021-11-07 14:01:44 Office Visit Gee Blount [facility] MEDICAL OFFICE BUILDING 1.84114 350.1.13.10 4.2.7.2.686 [id number] [facility] 2021-11-07 11:30:00 2021-11-07 11:30:00 Outpatient R EVELIN COLMENARES [facility] [id number] [facility] 2021-11-06 00:00:00 2021-11-06 00:00:00 Telephone Kamran Hua [facility] NAL BUILDING 1.84.114 350.1.13.10 4.2.7.2.686 [id number] [facility] 2021-11-03 11:30:00 2021-11-03 12:12:13 Outpatient R EVELIN COLMENARES [facility] [id number] [facility] 2021-11-03 11:30:00 2021-11-03 12:12:13 Office Visit Fariba [facility] 1..840.114 350.1.13.10 4.2.7.2.686 [id number] [facility] 2021-11-03 11:30:00 2021-11-03 11:30:00 Outpatient R EVELIN COLMENARES [facility] [id number] [facility] 2021-10-29 15:00:00 2021-10-29 17:02:57 Outpatient R KAMRAN HUA [facility] [id number] [facility] 2021-10-29 15:00:00 2021-10-29 17:02:57 Office Visit Kamran Hua [facility] BUILDING 1..840.114 350.1.13.10 4.2.7.2.686 [id number] [facility] 2021-10-29 15:00:00 2021-10-29 17:02:57 Outpatient R KAMRAN HUA [facility] [id number] [facility] 2021-10-24 00:00:00 2021-10-24 00:00:00 Telephone Kamran Hua [facility] BUILDING 1..840.114 350.1.13.10 4.2.7.2.686 [id number] [facility] 2021-10-23 18:00:00 2021-10-23 18:18:59 Urgent Care Barberamari Enricoramirez [facility] MEDICAL OFFICE BUILDING 1..840.114 350.1.13.10 4.2.7.2.686 [id number] [facility] 2021-10-23 18:00:00 2021-10-23 18:00:00 Outpatient R CHETAN ENRICORAMIREZ [facility] [id number] [facility] 2021-10-23 00:00:00 2021-10-23 00:00:00 Nehal Hernandez [facility] ADONAY?[facility] 1.840.114 350.1.13.10 4.2.7.2.686 [id number] [facility] 2021-10-09 13:00:00 2021-10-09 13:42:33 Outpatient R ELINOR JIMENEZ DENISE [facility] [id number] [facility] 2021-10-09 13:00:00 2021-10-09 13:42:33 Office Visit Elinor Jimenez [facility] AND [facility] 1.840.114 350.1.13.10 4.2.7.2.686 [id number] [facility] 2021-10-09 13:00:00 2021-10-09 13:42:33 Outpatient R ELINOR JIMENEZ DENISE [facility] [id number] [facility] 2021-10-07 16:30:00 2021-10-07 17:14:26 Outpatient R EVELIN COLMENARES [facility] [id number] [facility] 2021-10-07 16:30:00 2021-10-07 17:14:26 [facility] 1.840.114 350.1.13.10 4.2.7.2.686 [id number] [facility] 2021-10-07 16:30:00 2021-10-07 17:14:26 Outpatient R EVELIN COLMENARES [facility] [id number] [facility] 2021-10-07 16:30:00 2021-10-07 17:14:26 Outpatient R EVELIN COLMENARES [facility] [id number] [facility] 2021-10-07 00:00:00 2021-10-07 00:00:00 Orders Only Doctor Unassigned, [place] [facility] 1..840.114 350.1.13.10 4.2.7.2.686 [id number] [facility] 2021-09-30 00:00:00 2021-09-30 00:00:00 Refill Tamera Carter [facility] 1..840.114 350.1.13.10 4.2.7.2.686 [id number] [facility] 2021-09-17 00:00:00 2021-09-17 00:00:00 Outpatient R RADIOLOGY [facility] [id number] [facility] 2021-09-15 15:00:00 2021-09-15 15:00:00 Outpatient R KAMRAN HUA [facility] [id number] [facility] 2021-09-10 14:00:00 2021-09-10 15:05:34 Outpatient R KAMRAN HUA [facility] [id number] [facility] 2021-09-10 14:00:00 2021-09-10 15:05:34 [facility] 1..840.114 350.1.13.10 4.2.7.2.686 [id number] [facility] 2021-09-10 14:00:00 2021-09-10 15:05:34 Outpatient R KAMRAN HUA [facility] [id number] [facility] 2021-09-10 00:00:00 2021-09-10 00:00:00 Orders Only Doctor Unassigned, [place] [facility] 1.2.840.114 350.1.13.10 4.2.7.2.686 [id number] [facility] 2021-09-08 10:20:00 2021-09-08 10:40:00 Urgent Care Raul [facility] 1.2.840.114 350.1.13.10 4.2.7.2.686 [id number] [facility] 2021-09-08 10:20:00 2021-09-08 10:20:00 Outpatient R RAUL [facility] [id number] [facility] 2021-09-08 00:00:00 2021-09-08 00:00:00 Letter (Out) Doctor Unassigned, [place] [facility] 1.2.840.114 350.1.13.10 4.2.7.2.686 [id number] [facility] 2021-09-08 00:00:00 2021-09-08 00:00:00 Letter (Out) Doctor Unassigned, [place] [facility] 1.2.840.114 350.1.13.10 4.2.7.2.686 [id number] [facility] 2021-09-01 00:00:00 2021-09-01 00:00:00 Transition of Care [place] [place] 1.2.840.114 350.1.13.10 4.2.7.2.686 [id number] [facility] 2021-08-29 17:37:00 2021-08-30 15:10:00 Outpatient U PONCHO DENNEY MUHAMMAD [facility] IGGY [id number] [facility] 2021-08-29 17:37:00 2021-08-30 15:10:00 Emergency FelyJorge mayes Muhammahany Gallagher [facility] 1..840.114 350.1.13.10 4.2.7.2.686 [id number] [facility] 2021-08-29 17:00:00 2021-08-29 17:00:00 Outpatient NESTOR HUFF III [facility] [id number] [facility] 2021-08-27 15:00:00 2021-08-27 15:00:00 Outpatient ELINOR ENAMORADO DENISE [facility] [id number] [facility] 2021-08-27 00:00:00 2021-08-27 00:00:00 Telephone Elinro Jimenez [facility] MULTISPEC [facility]ALTY C[facility] AND [facility] 1..840.114 350.1.13.10 4.2.7.2.686 [id number] [facility] 2021-08-26 15:02:48 2021-08-26 23:59:00 Outpatient ELINOR ENAMORADO DENISE [facility] [id number] [facility] 2021-08-26 15:02:48 2021-08-26 23:59:00 Hospital Encounter Elinor Jimenez [facility] MULTISPEC [facility]TY [facility] 1..840.114 350.1.13.10 4.2.7.2.686 [id number] [facility] 2021-08-26 14:30:00 2021-08-26 14:30:00 Outpatient ELINOR ENAMORADO DENISE [facility] [id number] [facility] 2021-08-12 15:30:00 2021-08-12 15:30:00 Outpatient ELINOR ENAMORADO DENISE [facility] [id number] [facility] 2021-08-12 15:30:00 2021-08-12 15:30:00 Office Visit Elinor Jimenez [facility] AND [facility] 1.840.114 350.1.13.10 4.2.7.2.686 [id number] [facility] 2021-08-12 15:30:00 2021-08-12 15:20:13 Outpatient R ELINOR JIMENEZ DENISE [facility] [id number] [facility] 2021-08-05 10:15:00 2021-08-05 11:59:19 Outpatient R NEHAL DEL REAL [facility] [id number] [facility] 2021-08-05 10:15:00 2021-08-05 11:59:19 Office Visit Nehal [facility] MEDICAL OFFICE BUILDING 1..840.114 350.1.13.10 4.2.7.2.686 [id number] [facility] 2021-08-05 11:15:00 2021-08-05 11:30:00 Manager Rail Visit Lab, Lane - Shawn [facility] MED[facility] OFF[facility] BUILDING 1..840.114 350.1.13.10 4.2.7.2.686 [id number] [facility] 2021-08-04 11:00:00 2021-08-04 13:30:03 Outpatient GISSELLE OSORIO [facility] [id number] [facility] 2021-08-04 11:00:00 2021-08-04 13:30:03 Office Visit Karlie Jim Peter Tze [facility] MEDICAL OFFICE BUILDING 1..840.114 350.1.13.10 4.2.7.2.686 [id number] [facility] 2021-08-04 11:00:00 2021-08-04 11:00:00 Outpatient R GISSELLE DURHAM [facility] [id number] [facility] 2021-08-04 00:00:00 2021-08-04 00:00:00 Orders Only Doctor Unassigned, [place] [facility] 1.2.840.114 350.1.13.10 4.2.7.2.686 [id number] [facility] 2021-07-28 00:00:00 2021-07-28 00:00:00 Telephone Nehal Del Real [facility]?MARJORIECyn [facility] MEDICAL OFFICE BUILDING 1..840.114 350.1.13.10 4.2.7.2.686 [id number] [facility] 2021-06-30 15:54:00 2021-06-30 18:42:00 Emergency X FLORENTIN THAPA [facility] ERT [id number] [facility] 2021-06-30 15:54:00 2021-06-30 18:42:00 Emergency DowlingOscary B [facility] 1..840.114 350.1.13.10 4.2.7.2.686 [id number] [facility] 2021-06-28 19:00:00 2021-06-28 19:20:00 Urgent Care Nurse, Lane [facility] MEDICAL OFFICE BUILDING 1.2.840.114 350.1.13.10 4.2.7.2.686 [id number] [facility] 2021-06-28 19:00:00 2021-06-28 19:00:00 Outpatient R MAYELA CARTERTANY [facility] [id number] [facility] 2021-06-28 19:00:00 2021-06-28 19:00:00 Outpatient R MAYELA CARTERTANY [facility] [id number] [facility] 2021-06-23 20:40:00 2021-06-23 20:56:03 Outpatient R HALEY CAMEJO [facility] [id number] [facility] 2021-06-23 20:40:00 2021-06-23 20:56:03 Urgent Care Bashir [facility]?ISABELLA [facility] MEDICAL OFFICE BUILDING 1..840.114 350.1.13.10 4.2.7.2.686 [id number] [facility] 2021-06-18 10:20:00 2021-06-18 10:40:00 Office [facility] 1.840.114 350.1.13.10 4.2.7.2.686 [id number] [facility] 2021-06-18 10:20:00 2021-06-18 10:20:00 Outpatient R SHYANNE BLAND [facility] [id number] [facility] 2021-06-18 10:20:00 2021-06-18 10:20:00 Outpatient R SHYANNE BLAND STRAMTBrittni [facility] [id number] [facility] 2021-06-05 00:00:00 2021-06-05 00:00:00 Orders Only Doctor Unassigned, [place] [facility] 1.840.114 350.1.13.10 4.2.7.2.686 [id number] [facility] 2021-06-03 00:00:00 2021-06-03 00:00:00 Refill Nehal Del Real [facility] 1..840.114 350.1.13.10 4.2.7.2.686 [id number] [facility] 2021-06-02 00:00:00 2021-06-02 00:00:00 Case Management Nehal Del Real [facility] ADONAY?[facility] MED[facility] OFF[facility] BU[facility] 1.2.840.114 350.1.13.10 4.2.7.2.686 [id number] [facility] 2021-06-02 00:00:00 2021-06-02 00:00:00 Telephone Nehal Del Real [facility] ADONAY?ISABELLA [facility] 1.2.840.114 350.1.13.10 4.2.7.2.686 [id number] [facility] 2021-05-22 12:47:18 2021-05-22 13:02:18 [address] Visit [facility] Sleep Lab Shyanne Bland [facility] 1..840.114 350.1.13.10 4.2.7.2.686 [id number] [facility] 2021-05-22 13:00:00 2021-05-22 13:00:00 Outpatient R SHYANNE BLAND STRAHIL [facility] [id number] [facility] 2021-05-22 13:00:00 2021-05-22 13:00:00 Outpatient R SHYANNE BLAND STRAHIL [facility] [id number] [facility] 2021-05-22 00:00:00 2021-05-22 00:00:00 Orders Only Doctor Unassigned, [place] [facility] 1.840.114 350.1.13.10 4.2.7.2.686 [id number] [facility] 2021-05-20 13:00:00 2021-05-20 13:00:00 Outpatient R [facility] [id number] [facility] 2021-05-20 13:00:00 2021-05-20 13:00:00 Outpatient R SHYANNE BLAND STRAHIL [facility] [id number] [facility] 2021-05-20 12:39:23 2021-05-20 12:54:23 Laboratory Only Only, Adc Test Shyanne Bland [facility] 1..114 350.1.13.10 4.2.7.2.686 [id number] [facility] 2021-05-13 00:00:00 2021-05-13 00:00:00 Refill Nehal Del Real [facility] PROFESSIO NAL OFFICE BUILDING ONE 1.84.114 350.1.13.10 4.2.7.2.686 [id number] [facility] 2021-05-12 00:00:00 2021-05-12 00:00:00 Case Management Nehal Del Real [facility] ADONAY?ISABELLA [facility] MED[facility] OFF[facility] BUILD[facility] 1.84.114 350.1.13.10 4.2.7.2.686 [id number] [facility] 2021-05-10 09:40:00 2021-05-10 09:40:00 Outpatient ACE GUAJARDO [facility] [id number] [facility] 2021-05-10 09:17:19 2021-05-10 09:37:19 [facility] ADONAY[facility] 1.84.114 350.1.13.10 4.2.7.2.686 [id number] [facility] 2021-05-09 00:00:00 2021-05-09 00:00:00 Refill Nehal Del Real [facility] ADONAY?[facility] 1.84.114 350.1.13.10 4.2.7.2.686 [id number] [facility] 2021-05-06 00:00:00 2021-05-06 00:00:00 Refill Nehal Del Real [facility] OFFICE BUILDING ONE 1.2.840.114 350.1.13.10 4.2.7.2.686 [id number] [facility] 2021-05-05 16:15:00 2021-05-05 23:59:00 Outpatient R NEHAL DEL REAL [facility] [id number] [facility] 2021-05-05 16:15:00 2021-05-05 23:59:00 Hospital Encounter Nehal Del Real [facility] ADONAY?[facility] MEDICAL OFFICE BUILDING 1.2.840.114 350.1.13.10 4.2.7.2.686 [id number] [facility] 2021-05-05 16:21:47 2021-05-05 16:38:22 Manager Rail Visit Lab, Ang - Db Nehal Del Real [facility] ADONAY?[facility] OFF[facility] BU[facility] 1.2.840.114 350.1.13.10 4.2.7.2.686 [id number] [facility] 2021-05-05 16:00:00 2021-05-05 16:18:42 Outpatient R NEHAL DEL REAL [facility] [id number] [facility] 2021-05-05 15:17:21 2021-05-05 16:18:42 Office [facility]hal [facility] Real [facility] 1.2.840.114 350.1.13.10 4.2.7.2.686 [id number] [facility] 2021-04-11 15:45:00 2021-04-11 15:45:00 Outpatient R NEHAL DEL REAL [facility] [id number] [facility] 2021-03-09 00:00:00 2021-03-09 00:00:00 Refill Nehal Del Real [facility] Office Building One 1.2.840.114 350.1.13.10 4.2.7.2.686 [id number] [facility] 2021-03-07 00:00:00 2021-03-07 00:00:00 Telephone GtNehal land [facility] Building 1.2.840.114 350.1.13.10 4.2.7.2.686 [id number] [facility] 2021-02-12 00:00:00 2021-02-12 00:00:00 RefNehal Jackson [facility] Office Building One 1.2.840.114 350.1.13.10 4.2.7.2.686 [id number] [facility] 2021-02-10 10:00:00 2021-02-10 10:00:00 Outpatient KARLIE BERGER [facility] [id number] [facility] 2021-02-10 09:40:46 2021-02-10 09:55:46 [facility] 1.2.840.114 350.1.13.10 4.2.7.2.686 [id number] [facility] 2021-01-20 08:00:00 2021-01-20 08:00:00 Outpatient R NEHAL DEL REAL [facility] [id number] [facility] 2021-01-17 10:30:00 2021-01-17 10:30:00 Outpatient R NEHAL DEL REAL [facility] [id number] [facility] 2021-01-01 16:20:00 2021-01-01 16:20:00 Outpatient R CHUCKIE SHEEHAN [facility] [id number] [facility] 2020-12-30 15:00:00 2020-12-30 15:00:00 Outpatient R SARMADFRANKLYN [facility] [id number] [facility] 2020-12-24 15:45:00 2020-12-24 15:45:00 Outpatient R MARY NARAYAN [facility] [id number] [facility] 2020-12-09 11:15:00 2020-12-09 11:15:00 Outpatient R ANYI DE SANTIAGO [facility] [id number] [facility] 2020-11-07 13:00:00 2020-11-07 13:00:00 Outpatient R [facility] [id number] [facility] 2020-11-05 15:45:00 2020-11-05 15:45:00 Outpatient R MARY NARAYAN [facility] [id number] [facility] 2020-11-04 14:00:00 2020-11-04 14:00:00 Outpatient R FRANKLYN BAÑUELOS [facility] [id number] [facility] 2020-10-28 13:30:00 2020-10-28 13:30:00 Outpatient R FRANKLYN BAÑUELOS [facility] [id number] [facility] 2020-10-17 10:45:00 2020-10-17 10:45:00 Outpatient R NEHAL DEL REAL [facility] [id number] [facility] 2020-10-07 09:45:00 2020-10-07 09:45:00 Outpatient R FRANKLYN BAÑUELOS [facility] [id number] [facility] 2020-09-12 09:30:00 2020-09-12 09:30:00 [facility] [id number] [facility] 2020-09-10 16:15:00 2020-09-10 16:15:00 Outpatient R EVELIN COLMENARES [facility] [id number] [facility] 2020-09-02 14:00:00 2020-09-02 14:00:00 Outpatient R TOBY DEL REALFRENCHGENNARO [facility] [id number] [facility] 2020-08-30 16:00:00 2020-08-30 16:00:00 Outpatient R TOBY DEL REALFRENCHGENNARO [facility] [id number] [facility] 2020-08-20 00:00:00 2020-08-20 00:00:00 Telephone Nehal Del Real [facility] Office Building One 1.2.840.114 350.1.13.10 4.2.7.2.686 [id number] 2020-08-05 14:00:00 2020-08-05 14:00:00 Outpatient R FRANKLYN BAÑUELOS [facility] [id number] [facility] 2020-07-23 00:00:00 2020-07-23 00:00:00 Telephone Nehal Del Real [facility] Office Building One 1.2.840.114 350.1.13.10 4.2.7.2.686 [id number] 2020-07-19 11:00:00 2020-07-19 11:00:00 Outpatient R TOBY DELR EALFRENCHGENNARO [facility] [id number] [facility] 2020-07-19 08:01:11 2020-07-19 10:21:48 Office Visit Toby Del Realfrenchgennaro Addison [facility] Office Building One 1.2.840.114 350.1.13.10 4.2.7.2.686 [id number] 2020-07-19 08:00:00 2020-07-19 08:00:00 Outpatient R GTTOBY LANDTERRI [facility] [id number] [facility] 2020-05-10 08:00:00 2020-05-10 08:00:00 Outpatient R GTTOBY LANDTERRI [facility] [id number] [facility] 2020-05-09 13:00:00 2020-05-09 13:00:00 Outpatient R TOBY DEL REALTERRI [facility] [id number] [facility] 2020-04-29 13:00:00 2020-04-29 13:00:00 Outpatient R TOBY DEL REALFRECNHGENNARO [facility] [id number] [facility] 2020-04-19 16:00:00 2020-04-19 16:00:00 Outpatient R GTTOBY LANDTERRI [facility] [id number] [facility] 2020-04-16 13:30:00 2020-04-16 13:30:00 Outpatient R MARY NARAYAN [facility] [id number] [facility] 2020-04-02 13:30:00 2020-04-02 13:30:00 Outpatient R MARY NAARYAN [facility] [id number] [facility] 2020-03-21 13:20:00 2020-03-21 13:20:00 Outpatient R [facility] [id number] [facility] 2020-03-13 13:30:00 2020-03-13 13:30:00 Outpatient R KAYLIE AHUMADA [facility] [id number] [facility] 2020-03-05 14:00:00 2020-03-05 14:00:00 Outpatient R MARY NARAYAN [facility] [id number] [facility] 2020-01-29 10:00:00 2020-01-29 10:00:00 Outpatient R GT TOBYTERRI [facility] [id number] [facility] 2020-01-24 13:00:00 2020-01-24 13:00:00 Outpatient R HEATHER HENRY [facility] [id number] [facility] 2020-01-18 13:15:00 2020-01-18 13:15:00 Outpatient R HEATHER HENRY [facility] [id number] [facility] 2020-01-15 14:30:00 2020-01-15 14:30:00 Outpatient ELINOR ENAMORADO DENISE [facility] [id number] [facility] 2020-01-11 14:15:00 2020-01-11 14:15:00 Outpatient R HENRYHEATHER RITCHIE [facility] [id number] [facility] 2019-12-19 10:00:00 2019-12-19 10:00:00 Outpatient R CINDY MTZ [facility] [id number] [facility] 2019-12-13 07:19:00 2019-12-13 09:45:00 Outpatient ELINOR ENAMORADO [facility] [id number] [facility] 2019-12-10 16:00:00 2019-12-10 16:00:00 Outpatient R ZARA YBARRA [facility] [id number] [facility] 2019-12-08 16:15:00 2019-12-08 16:15:00 Outpatient NEHAL ALFARO [facility] [id number] [facility] 2019-11-28 13:30:00 2019-11-28 13:30:00 Outpatient ELINOR ENAMORADO DENISE [facility] [id number] [facility] 2019-11-23 10:30:00 2019-11-23 10:30:00 Outpatient MARY ODELL [facility] [id number] [facility] 2019-11-06 13:45:00 2019-11-06 13:45:00 Outpatient NEHAL ALFARO [facility] [id number] [facility] 2019-10-31 12:29:42 2019-10-31 23:59:00 Outpatient MARY ODELL [facility] [id number] [facility] 2019-10-24 13:30:00 2019-10-24 13:30:00 Outpatient MARY ODELL [facility] [id number] [facility] 2019-09-20 13:30:00 2019-09-20 13:30:00 Outpatient ORIN WHIPPLE [facility] [id number] [facility] 2019-09-18 16:15:00 2019-09-18 16:15:00 Outpatient NEHAL ALFARO [facility] [id number] [facility] 2019-09-12 14:45:00 2019-09-12 14:45:00 Outpatient MARY ODELL [facility] [id number] [facility] 2019-09-08 11:15:00 2019-09-08 11:15:00 [facility] [id number] 2018-10-03 12:17:25 2018-10-03 14:32:00 [id number] Results Test Description Test Time Test Comments Results Result Co mments Source [facility] [id number] 19:03:00* Test Item Value Reference Range Interpretation Comme nts POCT HBA1C (test code = 4548-4) 7.5 % 4-6 A Lab Interpretation (test cod e = 43613-1) Abnormal [facility] ([facility]E)2023-08-20 02:47:27* Test Item Value Reference Range Interpretation Comme nts Height (test code = 0885456310) 70 in Weight (test code = 2036224563) 190 lbs Systolic BP (test code = 1832209389) 135 mmHg Diastolic BP (test code = 8881981066) 85 mmHg Heart Rate (test code = 6329577613) 80 bpm EF(Teich) (test code = 7898134274) 60.50 % LVIDD (test code = 5630108499) 4.80 cm LVIDS (test code = 3074763160) 3.20 cm Left Ventricular End Systolic Volume by Teichholz Method (test code = 2158970) 42.1 mL Left Ventricular End Diastolic Volume by Teichholz Method (test code = 6646558) 106.5 mL IVS (test code = 0710474554) 1.05 cm LVPWD (test code = 5377348188) 1.23 cm LVOT diameter (test code = 7697449969) 2.15 cm LVOT area (test code = 9095797017) 3.60 cm2 FS (test code = 2928533431) 32 % LA size (test code = 0488417190) 4.3 cm RVOT diameter (test code = 1518860964) 2.46 cm ACS (test code = 2168755177) 1.22 cm Ao root diam (test code = 0700661134) 3.10 cm Aortic root (test code = 2284236728) 3.1 cm Ao root annulus (test code = 9895311853) 3.1 cm PW (test code = 0767381336) 1.23 cm 0.6-1.1 EF - 2D (test code = 20911258) 60.50 % Interventricular Septum Diastolic Thickness by 2D (test code = 9462954) 1.05 cm BSA (test code = 9224633118) 2.04 m2 E wave decelartion time (test code = 5237776463) 0.23 s MV Peak E Kisha (test code = 2146277628) 125.7 cm/s MR max PG (test code = 1608020538) 84.70 mm[Hg] MR max kisha (test code = 2447260686) 460.00 cm/s Mr max kisha (test code = 3986936264) 460.0 m/s MV Prop V (test code = 4115156558) 50.50 cm/s Tapse (test code = 1835935614) 2.34 cm TR Peak Kisha (test code = 4441443089) 218.2 cm/s Triscuspid Valve Regurgitation Peak Gradient (test code = 9925649206) 19.0 mmHg LVOT stroke volume (test code = 5951259419) 88.10 cm3 LVOT peak kisha (test code = 4983319284) 116.2 cm/s LVOT mn grad (test code = 5170412550) 2.5 mmHg AV LVOT peak gradient (test code = 1721328269) 5.4 mmHg LVOT peak VTI (test code = 2699606792) 24.3 cm LV V1 mean (test code = 6845501954) 72.80 cm/s Aortic valve mean velocity (test code = 7740260030) 83.9 cm/s Ao peak kisha (test code = 3081352594) 125.3 cm/s Ao VTI (test code = 9162526995) 27.8 cm AV area by cont VTI (test code = 3077414295) 3.2 cm2 AV area peak kisha (test code = 1906430238) 3.4 cm2 Ao max PG (test code = 4258583920) 6.30 mm[Hg] AV peak gradient (test code = 8568152386) 6.3 mmHg AV valve area (test code = 2336072002) 3.20 cm2 AV mean gradient (test code = 7508989956) 3.2 mmHg RVOT area (test code = 5576401455) 4.75 cm2 Radiology Study observation (narrative) (test code = 93262-7) MARIO (test code = MARIO) Table formatting f rom the original result was not included. ?Left?Ventricle: Left ventricle size is normal. Normal wall thickness. Normal wall motion. Normal systolic function with a visually estimated EF of 60 - 65%. Unable to assess diastolic function due to arrhythmia. Elevated left ventricular filling pressure. ?Aorta: Mildly enlarged ascending aorta (4.0 cm) and aortic arch (3.2 cm). ?Tricuspid?Valve: Right ventricular systolic pressure is normal. ?RA pressure is 0-5 mmHg. ?Mitral?Valve: Mild transvalvular regurgitation. VitalsHeight Weight BSA (Calculated - sq m) BP Pulse 5' 10" (1.778 m) 191 lb 9.6 oz (86.9 kg) 2.07 sq meters 139/76 66 Left VentricleLeft ventricle size is normal. Normal wall thickness. Normal wall motion. Normal systolic function with a visually estimated EF of 60 - 65%. Unable to assess diastolic function due to arrhythmia. Elevated left ventricular filling pressure.Right VentricleRight ventricle size is normal. Normal systolic function.Left AtriumLeft atrium size is normal.Right AtriumRight atrium size is normal.IVC/SVCIVC diameter is less than or equal to 21 mm and decreases greater than 50% during inspiration; therefore the estimated right atrial pressure is normal (~0-5 mmHg).Mitral ValveMildly thickened leaflets. Mild transvalvular regurgitation.Tricusp id ValveTricuspid valve structure is normal. Trace transvalvular regurgitation. Right ventricular systolic pressure is normal. RA pressure is 0-5 mmHg.Aortic ValveTricuspid. Mildly thickened cusps.Pulmonic ValveNot well visualized.Ascending AortaMildly enlarged ascending aorta (4.0 cm) and aortic arch (3.2 cm).PericardiumThe pericardium is normal. No pericardial effusion.Study DetailsStudy quality was adequate. A complete echocardiogram was performed using 2D, color flow Doppler and spectral Doppler. The apical, parasternal, subcostal and suprasternal views were obtained. [facility] [id number]-[id number] 22:48:07* Test Item Value Reference Range Interpretation Comme nts NT-proBNP (test code = 56549-0) 1260 pg/mL <=125 MARIO (test code = MARIO) Result Indeterminate-Consid er causes of NT-proBNP elevation other than Heart failure such as acute coronary syndrome, pulmonary embolism, pulmonary hypertension, sepsis, stroke, and renal dysfunction. Lab Interpretation (test code = 50493-8) Abnormal [facility] HospitalLipid Panel (71933)(Total Cholesterol, Triglycerides, HDL)2023-08-19 22:41:43* Test Item Value Reference Range Interpretation Comme nts CHOL (test code = 6129764872) 203 mg/dL 120-200 H HDL (test code = 0426456469) 29 mg/dL >=40 L HDLC RATIO (test code = 3602655607) 7.0 <=5.0 H TRIG (test code = 4332436439) 258 mg/dL 30-170 H LDL CHOL (test code = 71473-1) 122 mg/dL <=160 VLDL (test code = 9324070391) 52 mg/dL 5-60 Lab Interpretation (test cod e = 52182-0) Abnormal [facility] Met[facility] (NA, K, CL, CO2, GLUCOSE, BUN, CREATININE, CA)2023-08-19 22:41:23* Test Item Value Reference Range Interpretation Comme nts NA (test code = 1202515837) 138 mmol/L 135-145 K (test code = 9477304655) 4.5 mmol/L 3.5-5.0 CL (test code = 4017827434) 106 mmol/L 98-108 CO2 TOTAL (test code = 6835276150) 28 mmol/L 23-31 AGAP (test code = 8671540480) 4 2-16 BUN (test code = 7995065178) 23 mg/dL 7-23 GLUCOSE (test code = 9969384263) 97 mg/dL 70-110 CREATININE (test code = 2160-0) 0.75 mg/dL 0.60-1.25 CALCIUM (test code = 3300023735) 9.6 mg/dL 8.6-10.6 eGFR (test code = 10006-4) 89.5 mL/min/1.73m2 [facility] Hemoglobin A1C [id number] 22:11:00* Test Item Value Reference Range Interpretation Comme nts POCT HBA1C (test code = 4548-4) 7.0 % 4-6 A Lab Interpretation (test cod e = 50845-3) Abnormal [facility] Hemoglobin A1C [id number] 22:11:00* Test Item Value Reference Range Interpretation Comme nts POCT HBA1C (test code = 4548-4) 7.0 % 4-6 A Lab Interpretation (test cod e = 61548-5) Abnormal [facility] URINALYSIS, [id number] 16:26:00 * Test Item Value Reference Range Interpretation Comme nts POCT U SP GRAV (test code = 3255) 1.020 mg/dl 1.005-1.025 POCT PH U (test code = 3254) 5.5 mg/dl 5-8 POCT U LEUK EST (test code = 3263) neg Negative - Negative POCT U NIT (test code = 3262) neg Negative - Negati ve POCT U PROT (test code = 3259) neg Negative - Negative POCT U GLU (test code = 3256) neg Negative - Negati ve POCT U KETONE (test code = 3258) neg Negative - Negative POCT U UROBILI (test code = 3260) 0.2 mg/dl 0.2-1 POCT U BILI (test code = 3261) neg Negative - Negative POCT U BLD (test code = 3257) neg Negative - Negati ve POCT U COLOR (test code = 3266) yellow POCT U APPEAR (test code = 3267) clear [facility] URINALYSIS, [id number] 16:26:00 * Test Item Value Reference Range Interpretation Comme nts POCT U SP GRAV (test code = 3255) 1.020 mg/dl 1.005-1.025 POCT PH U (test code = 3254) 5.5 mg/dl 5-8 POCT U LEUK EST (test code = 3263) neg Negative - Negative POCT U NIT (test code = 3262) neg Negative - Negati ve POCT U PROT (test code = 3259) neg Negative - Negative POCT U GLU (test code = 3256) neg Negative - Negati ve POCT U KETONE (test code = 3258) neg Negative - Negative POCT U UROBILI (test code = 3260) 0.2 mg/dl 0.2-1 POCT U BILI (test code = 3261) neg Negative - Negative POCT U BLD (test code = 3257) neg Negative - Negati ve POCT U COLOR (test code = 3266) yellow POCT U APPEAR (test code = 3267) clear [facility] HEMOGLOBIN A1C [id number] 16:13:00* Test Item Value Reference Range Interpretation Comme nts POCT HBA1C (test code = 4548-4) 7.2 % 4-6 A Lab Interpretation (test cod e = 18740-4) Abnormal [facility] HEMOGLOBIN A1C [id number] 16:13:00* Test Item Value Reference Range Interpretation Comme nts POCT HBA1C (test code = 4548-4) 7.2 % 4-6 A Lab Interpretation (test cod e = 03033-6) Abnormal [facility] HEMOGLOBIN A1C [id number] 21:28:00* Test Item Value Reference Range Interpretation Comme nts POCT HBA1C (test code = 4548-4) 7.4 % 4-6 A Lab Interpretation (test cod e = 96346-4) Abnormal [facility] HEMOGLOBIN A1C [id number] 21:28:00* Test Item Value Reference Range Interpretation Comme nts POCT HBA1C (test code = 4548-4) 7.4 % 4-6 A Lab Interpretation (test cod e = 34034-4) Abnormal [facility] HospitalPROSTATIC SPECIFIC [id number] 22:33:13 * Test Item Value Reference Range Interpretation Comme nts PSA (test code = 2791190806) 1.78 ng/mL <=4.00 MARIO (test code = MARIO) Biotin has been reported to cause a negative bias, interpret results relative to patient's use of biotin. Lab Interpretation (test code = 55270-7) Normal [facility]. METABOLIC PANEL (23291)2022-12-04 22:06:27* Test Item Value Reference Range Interpretation Comme nts NA (test code = 5093901478) 139 mmol/L 135-145 K (test code = 8474496727) 4.7 mmol/L 3.5-5.0 CL (test code = 0745522148) 104 mmol/L 98-108 CO2 TOTAL (test code = 4729565245) 25 mmol/L 23-31 AGAP (test code = 0231559021) 10 2-16 BUN (test code = 9195646348) 22 mg/dL 7-23 GLUCOSE (test code = 3237732614) 154 mg/dL 70-110 H CREATININE (test code = 6870193862) 0.83 mg/dL 0.60-1.25 TOTAL BILI (test code = 7504452647) 0.6 mg/dL 0.1-1.1 CALCIUM (test code = 0050656963) 9.6 mg/dL 8.6-10.6 T PROTEIN (test code = 1292288857) 6.8 g/dL 6.3-8.2 ALBUMIN (test code = 1889791097) 4.2 g/dL 3.5-5.0 ALK PHOS (test code = 3154621590) 56 U/L 34-122 ALTv (test code = 1742-6) 22 U/L 5-50 AST(SGOT) (test code = 7231831951) 21 U/L 13-40 eGFR (test code = 8680254303) 88.7 mL/min/1.73m2 MARIO (test code = MARIO) Association [...] imaging tests). Lab Interpretation (test code = 07619-9) Abnormal [facility]. METABOLIC PANEL (56497)2022-12-04 22:06:27* Test Item Value Reference Range Interpretation Comme nts NA (test code = 6137927743) 139 mmol/L 135-145 K (test code = 7624496012) 4.7 mmol/L 3.5-5.0 CL (test code = 5535103944) 104 mmol/L 98-108 CO2 TOTAL (test code = 0706077503) 25 mmol/L 23-31 AGAP (test code = 2583959753) 10 2-16 BUN (test code = 7336480528) 22 mg/dL 7-23 GLUCOSE (test code = 4224955223) 154 mg/dL 70-110 H CREATININE (test code = 8439935943) 0.83 mg/dL 0.60-1.25 TOTAL BILI (test code = 1726780718) 0.6 mg/dL 0.1-1.1 CALCIUM (test code = 7465534367) 9.6 mg/dL 8.6-10.6 T PROTEIN (test code = 2840375412) 6.8 g/dL 6.3-8.2 ALBUMIN (test code = 2376328370) 4.2 g/dL 3.5-5.0 ALK PHOS (test code = 3030011719) 56 U/L 34-122 ALTv (test code = 1742-6) 22 U/L 5-50 AST(SGOT) (test code = 5908524983) 21 U/L 13-40 eGFR (test code = 4975345453) 88.7 mL/min/1.73m2 MARIO (test code = MARIO) Association [...] imaging tests). Lab Interpretation (test code = 61982-6) Abnormal [facility] HospitalGLYCOSYLATED HEMOGLOBIN (A1C)2022-12-04 21:40:39* Test Item Value Reference Range Interpretation Comme nts HGB A1C (test code = 4548-4) 7.3 % 4.0-5.7 H MARIO (test code = MARIO) Reference RangesNormal: <5.7%Prediabetes: 5.7 - 6.4%Diabetes: > 6.5% Lab Interpretation (test code = 53476-3) Abnormal [facility]OLIC PANEL (98733)2022-09-18 19:43:39* Test Item Value Reference Range Interpretation Comme nts NA (test code = 0864774950) 139 mmol/L 135-145 K (test code = 9733999071) 4.8 mmol/L 3.5-5.0 CL (test code = 3102124941) 104 mmol/L 98-108 CO2 TOTAL (test code = 5779449152) 27 mmol/L 23-31 AGAP (test code = 6633999229) 8 2-16 BUN (test code = 0311542266) 20 mg/dL 7-23 GLUCOSE (test code = 1794693718) 148 mg/dL 70-110 H CREATININE (test code = 2658979869) 0.84 mg/dL 0.60-1.25 TOTAL BILI (test code = 4020054243) 0.7 mg/dL 0.1-1.1 CALCIUM (test code = 7952346162) 9.2 mg/dL 8.6-10.6 T PROTEIN (test code = 2489900011) 6.8 g/dL 6.3-8.2 ALBUMIN (test code = 5266544718) 4.1 g/dL 3.5-5.0 ALK PHOS (test code = 2320203323) 50 U/L 34-122 ALTv (test code = 1742-6) 19 U/L 5-50 AST(SGOT) (test code = 4990132517) 20 U/L 13-40 eGFR (test code = 2872290805) 87.5 mL/min/1.73m2 MAROI (test code = MARIO) Association of Glomerular [...] imaging tests). Lab Interpretation (test code = 73582-3) Abnormal [facility]. METABOLIC PANEL (79887)2022-09-18 19:43:39* Test Item Value Reference Range Interpretation Comme nts NA (test code = 8076215972) 139 mmol/L 135-145 K (test code = 5782740445) 4.8 mmol/L 3.5-5.0 CL (test code = 6121053569) 104 mmol/L 98-108 CO2 TOTAL (test code = 1683612010) 27 mmol/L 23-31 AGAP (test code = 4170650729) 8 2-16 BUN (test code = 4183568364) 20 mg/dL 7-23 GLUCOSE (test code = 2491541426) 148 mg/dL 70-110 H CREATININE (test code = 2995535981) 0.84 mg/dL 0.60-1.25 TOTAL BILI (test code = 0539918353) 0.7 mg/dL 0.1-1.1 CALCIUM (test code = 6408177964) 9.2 mg/dL 8.6-10.6 T PROTEIN (test code = 7949143837) 6.8 g/dL 6.3-8.2 ALBUMIN (test code = 5153477415) 4.1 g/dL 3.5-5.0 ALK PHOS (test code = 3526583823) 50 U/L 34-122 ALTv (test code = 1742-6) 19 U/L 5-50 AST(SGOT) (test code = 7467771395) 20 U/L 13-40 eGFR (test code = 4138482727) 87.5 mL/min/1.73m2 MARIO (test code = MARIO) [...] imaging tests). Lab Interpretation (test code = 96949-6) Abnormal General acute hospital WITH [id number] 19:10:29* Test Item Value Reference Range Interpretation Comme nts WBC (test code = 6690-2) 6.31 See_Comment [Automated Sudiksha] The system which generated this result transmitted reference range: 4.20 - 10.70 10*3/?L. The reference range was not used to interpret this result as normal/abnormal. RBC (test code = 789-8) 4.93 See_Comment [Automated Sudiksha] The system which generated this result transmitted reference range: 4.26 - 5.52 10*6/?L. The reference range was not used to interpret this result as normal/abnormal. HGB (test code = 718-7) 14.6 g/dL 12.2-16.4 HCT (test code = 4544-3) 44.9 % 38.4-49.3 MCV (test code = 787-2) 91.1 fL 81.7-95.6 MCH (test code = 785-6) 29.6 pg 26.1-32.7 MCHC (test code = 786-4) 32.5 g/dL 31.2-35.0 RDW-SD (test code = 13566-8) 48.5 fL 38.5-51.6 RDW-CV (test code = 788-0) 14.5 % 12.1-15.4 PLT (test code = 777-3) 258 See_Comment [Automated messa ge] The system which generated this result transmitted reference range: 150 - 328 10*3/?L. The reference range was not used to interpret this result as normal/abnormal. MPV (test code = 11710-5) 10.5 fL 9.8-13.0 NRBC/100 WBC (test code = 8245964857) 0.0 See_Comment [Automated me ssage] The system which generated this result transmitted reference range: 0.0 - 10.0 /100 WBCs. The reference range was not used to interpret this result as normal/abnormal. NRBC x10^3 (test code = 8486664630) See_Comment [Automated me ssage] The system which generated this result transmitted reference range: 10*3/?L. The reference range was not used to interpret this result as normal/abnormal. GRAN MAT (NEUT) % (test code = 770-8) 58.2 % IMM GRAN % (test code = 5461737420) 0.20 % LYMPH % (test code = 736-9) 26.0 % MONO % (test code = 5905-5) 11.3 % EOS % (test code = 713-8) 3.3 % BASO % (test code = 706-2) 1.0 % GRAN MAT x10^3(ANC) (test code = 5580050178) 3.68 10*3/uL 1.99-6.95 IMM GRAN x10^3 (test code = 1100072102) 0.00-0.06 LYMPH x10^3 (test code = 731-0) 1.64 10*3/uL 1.09-3.23 MONO x10^3 (test code = 742-7) 0.71 10*3/uL 0.36-1.02 EOS x10^3 (test code = 711-2) 0.21 10*3/uL 0.06-0.53 BASO x10^3 (test code = 704-7) 0.06 10*3/uL 0.01-0.09 [facility] acute hospital WITH [id number] 19:10:29* Test Item Value Reference Range Interpretation Comme nts WBC (test code = 6690-2) 6.31 See_Comment [Automated PandaDoca Utan] The system which generated this result transmitted reference range: 4.20 - 10.70 10*3/?L. The reference range was not used to interpret this result as normal/abnormal. RBC (test code = 789-8) 4.93 See_Comment [Automated PandaDoca Utan] The system which generated this result transmitted reference range: 4.26 - 5.52 10*6/?L. The reference range was not used to interpret this result as normal/abnormal. HGB (test code = 718-7) 14.6 g/dL 12.2-16.4 HCT (test code = 4544-3) 44.9 % 38.4-49.3 MCV (test code = 787-2) 91.1 fL 81.7-95.6 MCH (test code = 785-6) 29.6 pg 26.1-32.7 MCHC (test code = 786-4) 32.5 g/dL 31.2-35.0 RDW-SD (test code = 56402-5) 48.5 fL 38.5-51.6 RDW-CV (test code = 788-0) 14.5 % 12.1-15.4 PLT (test code = 777-3) 258 See_Comment [Automated PandaDoca ge] The system which generated this result transmitted reference range: 150 - 328 10*3/?L. The reference range was not used to interpret this result as normal/abnormal. MPV (test code = 50146-9) 10.5 fL 9.8-13.0 NRBC/100 WBC (test code = 5437739322) 0.0 See_Comment [Automated me ssage] The system which generated this result transmitted reference range: 0.0 - 10.0 /100 WBCs. The reference range was not used to interpret this result as normal/abnormal. NRBC x10^3 (test code = 3041901919) See_Comment [Automated me ssage] The system which generated this result transmitted reference range: 10*3/?L. The reference range was not used to interpret this result as normal/abnormal. GRAN MAT (NEUT) % (test code = 770-8) 58.2 % IMM GRAN % (test code = 2520591902) 0.20 % LYMPH % (test code = 736-9) 26.0 % MONO % (test code = 5905-5) 11.3 % EOS % (test code = 713-8) 3.3 % BASO % (test code = 706-2) 1.0 % GRAN MAT x10^3(ANC) (test code = 8966649986) 3.68 10*3/uL 1.99-6.95 IMM GRAN x10^3 (test code = 3943289262) 0.00-0.06 LYMPH x10^3 (test code = 731-0) 1.64 10*3/uL 1.09-3.23 MONO x10^3 (test code = 742-7) 0.71 10*3/uL 0.36-1.02 EOS x10^3 (test code = 711-2) 0.21 10*3/uL 0.06-0.53 BASO x10^3 (test code = 704-7) 0.06 10*3/uL 0.01-0.09 [facility] SARS-COV-2 ANTIGEN (BINAX NOW)2022-05-19 22:25:00* Test Item Value Reference Range Interpretation Comme nts POCT SARS-COV-2 ANTIGEN (test code = 22688-2) Not Detected Not Detected On board controls acceptable with C Line (test code = 3574) Yes MARIO (test code = MARIO) accurate developme nt and interpretation of all internal controls Lab Interpretation (test code = 00035-2) Normal [facility] URINALYSIS, [id number] 18:16:00 * Test Item Value Reference Range Interpretation Comme nts POCT U SP GRAV (test code = 3255) 1.015 mg/dl 1.005-1.025 POCT PH U (test code = 3254) 5.5 mg/dl 5-8 POCT U LEUK EST (test code = 3263) negative Negative - Negative POCT U NIT (test code = 3262) negaitve Negative - Negati ve POCT U PROT (test code = 3259) negative Negative - Negative POCT U GLU (test code = 3256) negative Negative - Negati ve POCT U KETONE (test code = 3258) negative Negative - Negative POCT U UROBILI (test code = 3260) 0.2 mg/dl 0.2-1 POCT U BILI (test code = 3261) negative Negative - Negative POCT U BLD (test code = 3257) negative Negative - Negati ve POCT U COLOR (test code = 3266) yellow POCT U APPEAR (test code = 3267) clear [facility] URINALYSIS, [id number] 18:16:00 * Test Item Value Reference Range Interpretation Comme nts POCT U SP GRAV (test code = 3255) 1.015 mg/dl 1.005-1.025 POCT PH U (test code = 3254) 5.5 mg/dl 5-8 POCT U LEUK EST (test code = 3263) negative Negative - Negative POCT U NIT (test code = 3262) negaitve Negative - Negati ve POCT U PROT (test code = 3259) negative Negative - Negative POCT U GLU (test code = 3256) negative Negative - Negati ve POCT U KETONE (test code = 3258) negative Negative - Negative POCT U UROBILI (test code = 3260) 0.2 mg/dl 0.2-1 POCT U BILI (test code = 3261) negative Negative - Negative POCT U BLD (test code = 3257) negative Negative - Negati ve POCT U COLOR (test code = 3266) yellow POCT U APPEAR (test code = 3267) clear [facility] URINALYSIS, [id number] 13:34:00 * Test Item Value Reference Range Interpretation Comme nts POCT U SP GRAV (test code = 3255) 1.015 mg/dl 1.005-1.025 POCT PH U (test code = 3254) 5.0 mg/dl 5-8 POCT U LEUK EST (test code = 3263) Negative Negative - Negative POCT U NIT (test code = 3262) Negative Negative - Negati ve POCT U PROT (test code = 3259) Negative Negative - Negative POCT U GLU (test code = 3256) Negative Negative - Negati ve POCT U KETONE (test code = 3258) Negative Negative - Negative POCT U UROBILI (test code = 3260) 0.2 mg/dl 0.2-1 POCT U BILI (test code = 3261) Negaitve Negative - Negative POCT U BLD (test code = 3257) Negative Negative - Negati ve POCT U COLOR (test code = 3266) Yellow POCT U APPEAR (test code = 3267) [facility] [id number] 13:34:00 * Test Item Value Reference Range Interpretation Comme nts POCT U SP GRAV (test code = 3255) 1.015 mg/dl 1.005-1.025 POCT PH U (test code = 3254) 5.0 mg/dl 5-8 POCT U LEUK EST (test code = 3263) Negative Negative - Negative POCT U NIT (test code = 3262) Negative Negative - Negati ve POCT U PROT (test code = 3259) Negative Negative - Negative POCT U GLU (test code = 3256) Negative Negative - Negati ve POCT U KETONE (test code = 3258) Negative Negative - Negative POCT U UROBILI (test code = 3260) 0.2 mg/dl 0.2-1 POCT U BILI (test code = 3261) Negaitve Negative - Negative POCT U BLD (test code = 3257) Negative Negative - Negati ve POCT U COLOR (test code = 3266) Yellow POCT U APPEAR (test code = 3267) Clear [facility] Notes Date/Time Note Provider Source 2023-10-19 15:00:00 5734-38-13T23:00:00F ormatting of this note is different from the original.Images from the original note were not included.Patient has been identified by and name and was provided with cup, antiseptic towelette, and clean catch instructions. 1 urine specimen(s) sent.Unpreserved 1Urine CultureAptima tubeOther urine1 URINE TEST1 EXTRA TUBE 76392-2Uhwjm OwahQB3738-14-66O84:02:37Nurse NoteTXT1.2.840.236985.1.13.104.2.7 .2.740912|[id number] for patient glgz53688-2Jlerh NoteLNNARRATIVEFormatted C-CDA narrative text[address] UnyqJabvwzzcsGhajklfolFTPX14600795 96CUAMKTOPEPZIWXJYBMTTOF2630-02-78 T15:02:371.2.840.692518.1.72.3.15| 1.2.840.956680.1.13.104.2.7.2.7278 [id number] [facility] 2023-10-14 11:21:37 9573-39-93H85:21:37F ormatting of this note is different from the original.Requested PrescriptionsPending Prescriptions Disp RefillsFUROSEMIDE 40 mg tablet [Pharmacy Med Name: FUROSEMIDE 40 MG TABLET] 30 tablet 1Sig: TAKE 1 TABLET BY MOUTH IN THE MORNING. PLEASE DO LABS IN ONE WEEKPatient compliant per [facility] Cardiology Refill Guidelines. Rx sent to:[facility]/pharmacy #[id number] - [place], [place] - [address] STREETPhone: [id number] signed by Chyna Mancilla MA at 10/14/2023 11:21 AM TVT88192-4Jbyruaend encounter HhkeLZ3085-18-85X53:21:57Telephone encounter NoteTXT1.2.840.449736.1.13.104.2.7 .2.150186|[id number] for patient wfvp49979-1VoyqYWYORKRDTKWYxjgowzl d C-CDA narrative [id number] M Hernandez [id number] 79FPEYYSGQLYXZMWBYSILLXB7397-47-36 T11:21:571.2.840.450739.1.72.3.15| 1.2.840.201094.1.13.104.2.7.2.7278 [id number] Chyna Mancilla [facility] 2023-10-11 11:57:23 3132-09-40Y20:57:23F ormatting of this note might be different from the original.Images from the original note were not included. 95710-9Kiiromevk encounter DmwtMT5160-71-54Q78:58:47Telephone encounter NoteTXT1.2.840.121419.1.13.104.2.7 .2.737638|[id number] for patient nhlt03097-5LtwkZCJMFTDELPARlrkpvko d C-CDA narrative text[id number] 76BCPRMGPVYKZQFAPZIKPFMS0849-68-44 T11:58:471.2.840.871233.1.72.3.15| 1.2.840.808770.1.13.104.2.7.2.7278 [id number] [facility] 2023-10-11 09:00:00 4978-01-49M55:00:00A ddended by: HEATHER COLMENARES DNP-EVELIN SHAIKH on: 10/11/2023 01:29 PMModules accepted: Level of Service 81245-9Qvmldzbj UuqlkcxaKX7383-34-72D96:29:29Adden dum DocumentTXT1.2.840.656659.1.13.104 .2.7.2.382858|[id number] e for patient izmk38942-3CoclQXVTKOMTXSJGzotpzut d C-CDA narrative textUT[address] SlelWuqhvnbnxIrrpbzmmhGBFX65538569 60FIXRQUPSQUFPEMVODRRTTW9389-77-30 T13:29:291.2.840.079430.1.72.3.15| 1.2.840.829034.1.13.104.2.7.2.7278 [id number] [facility] 2023-10-08 10:48:11 8804-31-80O64:48:11F ormatting of this note is different from the original.Received refill request for:Medication:Requested PrescriptionsPending Prescriptions Disp RefillsKCL 10 mEq tablet [Pharmacy Med Name: POTASSIUM CL ER 10 MEQ TABLET] 90 tablet 0Sig: TAKE 1 TABLET BY MOUTH IN THE MORNING. PLEASE DO LABS IN ONE WEEKRequested PrescriptionsPending Prescriptions Disp RefillsKCL 10 mEq tablet [Pharmacy Med Name: POTASSIUM CL ER 10 MEQ TABLET] 90 tablet 0Sig: TAKE 1 TABLET BY MOUTH IN THE MORNING. PLEASE DO LABS IN ONE WEEKEndocrinology: Minerals - Potassium Supplementation Passed - 10/07/2023 8:32 AMPassed - Valid encounter within last 12 monthsRecent VisitsDate Type Provider Dept08/20/23 Office Visit Kamran Hua MD [facility] Yabxggq47/20/23 Office Visit Kamran Hua MD [facility] FacultyShowing recent visits within past 365 days and meeting all other requirementsFuture AppointmentsDate Type Provider Dept12/09/23 Appointment Kamran Hua MD [facility] Ndhzfil26/19/24 Appointment Kamran Hua MD [facility] Cardiology FacultyShowing future appointments within next 365 days and meeting all other requirementsMedication Last filled:4Provider Note:Outside records reviewed.NM stress test dated 03/20/2020 reviewed shows negative for any reversible ischemia. LV function normal.ALIA dated reviewed normal bilaterally.Carotid ultrasound dated reviewed shows no significant obstructive disease bilateral ICA. Vertebral arteries not well visualized.Office note dated 04/10/2021 reviewed no significant changes made in his medications. MAR reviewed. At the time patient was on aspirin 81 daily, lisinopril 20 daily, Plavix 75 daily.Recent VisitsDate Type Provider Dept08/20/23 Office Visit Kamran Hua MD [facility] Tipgipi84/20/23 Office Visit Kamran Hua MD [facility] FacultyShowing recent visits within past 365 days and meeting all other requirementsFuture AppointmentsDate Type Provider Dept12/09/23 Appointment Kamran Hua MD [facility] Utvynma69/19/24 Appointment Kamran Hua MD [facility] Cardiology FacultyShowing future appointments within next 365 days and meeting all other requirementsRefilled approval sent to:Pharmacy:[facility]/pharmacy #[id number] - [place], [place] - [address] [place] [address] [address] [facility] [address]Dtmdh: [phone] [facility] - [address] [place], [place] [place] [address]Zjbxx: [phone] Bendtqlr based on current protocol and last office visit note.Mercy Sue 10/08/2023 10:50 AMTechnician Visit on 4Component Date ValueNA 08/27/2023 138K 08/27/2023 4.7CL 08/27/2023 105CO2 TOTAL 08/27/2023 26AGAP 08/27/2023 7BUN 08/27/2023 28 (H)GLUCOSE 08/27/2023 126 (H)CREATININE 08/27/2023 0.95CALCIUM 08/27/2023 9.5eGFR 08/27/2023 79.4NT-proBNP 08/27/2023 908Hospital Outpatient Visit on 4Component Date ValueHeight 08/19/2023 70Weight 08/19/2023 190Systolic BP 08/19/2023 135Diastolic BP 08/19/2023 85Heart Rate 08/19/2023 80EF(Teich) 08/19/2023 60.50LVIDD 08/19/2023 4.80LVIDS 08/19/2023 3.20Left Ventricular End Sys* 08/19/2023 42.1Left Ventricular End Agustina* 08/19/2023 106.5IVS 08/19/2023 1.05LVPWD 08/19/2023 1.23LVOT diameter 08/19/2023 2.15LVOT area 08/19/2023 3.60FS 08/19/2023 32LA size 08/19/2023 4.3RVOT diameter 08/19/2023 2.46ACS 08/19/2023 1.22Ao root diam 08/19/2023 3.10Aortic root 08/19/2023 3.1Ao root annulus 08/19/2023 3.1PW 08/19/2023 1.23EF - 2D 08/19/2023 60.50Interventricular Septum * 08/19/2023 1.05BSA 08/19/2023 2.04E wave decelartion time 08/19/2023 0.23MV Peak E Kisha 08/19/2023 125.7MR max PG 08/19/2023 84.70MR max kisha 08/19/2023 460.00Mr max kisha 08/19/2023 460.0MV Prop V 08/19/2023 50.50Tapse 08/19/2023 2.34TR Peak Kisha 08/19/2023 218.2Triscuspid Valve Regurgi* 08/19/2023 19.0LVOT stroke volume 08/19/2023 88.10LVOT peak kisha 08/19/2023 116.2LVOT mn grad 08/19/2023 2.5AV LVOT peak gradient 08/19/2023 5.4LVOT peak VTI 08/19/2023 24.3LV V1 mean 08/19/2023 72.80Aortic valve mean veloci* 08/19/2023 83.9Ao peak kisha 08/19/2023 125.3Ao VTI 08/19/2023 27.8AV area by cont VTI 08/19/2023 3.2AV area peak kisha 08/19/2023 3.4Ao max PG 08/19/2023 6.30AV peak gradient 08/19/2023 6.3AV valve area 08/19/2023 3.20AV mean gradient 08/19/2023 3.2RVOT area 08/19/2023 4.75Technician Visit on 4Component Date ValueCHOL 08/19/2023 203 (H)HDL 08/19/2023 29 (L)HDLC RATIO 08/19/2023 7.0 (H)TRIG 08/19/2023 258 (H)LDL CHOL 08/19/2023 122VLDL 08/19/2023 52NA 08/19/2023 138K 08/19/2023 4.5CL 08/19/2023 106CO2 TOTAL 08/19/2023 28AGAP 08/19/2023 4BUN 08/19/2023 23GLUCOSE 08/19/2023 97CREATININE 08/19/2023 0.75CALCIUM 08/19/2023 9.6eGFR 08/19/2023 89.5NT-proBNP 08/19/2023 1,260Office Visit on 4Component Date ValuePOCT HBA1C 07/23/2023 7.0 (A) 43282-0Nziehoxwa encounter OiufZP2679-69-33S79:53:38Telephone encounter NoteTXT1.2.840.512056.1.13.104.2.7 .2.610823|[id number] for patient dwan16977-8ZuuhVMCZOTGYGOSGzuwgdgp d C-CDA narrative jwlg803993789Mtzyk L Reynolds[address] IertZrpapbwkjKllyquozeFTCV94489572 09BGPNDYLGGNFBMDJDRSKCPU8651-70-72 T10:53:381.2.840.622649.1.72.3.15| 1.2.840.633806.1.13.104.2.7.2.7278 [id number] Mercy Sue [facility] 2023-09-27 14:26:18 5908-23-68T21:26:18F ormatting of this note might be different from the original.Spoke to Patients and she states that when patient takes Cymbalta he has nightmares. She stated that Patient does not take the medication regularly. She reports having an appointment for him on Wednesday the . Advised Patient to keep appointment. 53667-0Yczcdutlj encounter NgzsYX4130-09-21G93:34:28Telephone encounter NoteTXT1.2.840.269914.1.13.104.2.7 .2.282547|[id number] for patient nybn28395-6GrngVPWKJXEYXRQFxkvkacu d C-CDA narrative fbfv626166335Csbhg J Bunte RN[address] KjesAwifxkiovIsmrhcquzXBVT83538763 01JXCYGKYPNVEIJYESLLMIKU7241-21-11 T14:34:281.2.840.139017.1.72.3.15| 1.2.840.027032.1.13.104.2.7.2.7278 [id number] Laura Gomes RN [facility] 2023-09-27 14:25:12 9465-15-82Q46:25:12F ormatting of this note might be different from the original.FYICalled and scheduled appointment for 10/01/23. Patient is taking escitalopram 10 mg 1 daily, he should not be taking both esitalopram and duloxetine., patient is not taking either one of them until he comes in and talks to provider. 41886-2Bxongfggg encounter RdzqEP5687-65-40B49:34:47Telephone encounter NoteTXT1.2.840.446951.1.13.104.2.7 .2.383471|[id number] for patient zitk92553-1RjlmGBVCKWOKPDKWecsbvvh d C-CDA narrative textUT[address]TXTX[address] 64HDBWMOQIDTEEQYVNZBHGYW8407-54-26 T14:34:471.2.840.252288.1.72.3.15| 1.2.840.147192.1.13.104.2.7.2.7278 [id number] [facility] 2023-09-27 13:25:48 1748-08-71I65:25:48F ormatting of this note might be different from the original.Copied from [facility] #[id number]. Topic: Appointment - Reschedule Appointment>> Sep 27, 2023 1:23 PM Patient [employer] Supervisor wrote:Nestor Gomez is a 83 year old malePts spouse is calling requesting for a nurse to call her regarding the pt having nightmares due to his medication.Please advise. [phone] (home) 92848-6Xqhftucqb encounter WzhfGO0695-40-92V91:28:19Telephone encounter NoteTXT1.2.840.311646.1.13.104.2.7 .2.149748|[id number] for patient lwzs41688-2CpoxBQTMPWHZQKVVcjlvsxs d C-CDA narrative azrj459724552Nlfx ElliottUT[address]TXTX[address] 56NEGBNGKELAGVMJIQFDUGZB0055-23-33 T13:28:191.2.840.582742.1.72.3.15| 1.2.840.102168.1.13.104.2.7.2.7278 [id number] Judith Jarrett [facility] 2023-09-15 09:27:59 4098-60-63A05:27:59F ormatting of this note might be different from the original.Due for repeat K+ labs prior to 3mo refills can be ok'd. 18937-3Dyoitifzw encounter HcreBO8064-81-82B45:29:12Telephone encounter NoteTXT1.2.840.013939.1.13.104.2.7 .2.012140|[id number] for patient urds72568-0XqbtRPJVEMZQVYFMubeqtsl d C-CDA narrative xjiu214757081Acfulq Castaneda MA[address]TXTX[address] 66ELHTCPMIMTGNHSNNXXZENC2608-67-41 T09:29:121.2.840.236045.1.72.3.15| 1.2.840.150729.1.13.104.2.7.2.7278 [id number] Arben Oconnor MA [facility] 2023-09-01 10:22:11 2074-37-96M64:22:11A ddended by: CONRADO GONZALEZ RN on: 09/01/2023 10:22 AMModules accepted: Orders 18879-2Mnywwlke SxuhqbioXI9252-80-92B84:22:11Adden dum DocumentTXT1.2.840.505678.1.13.104 .2.7.2.904139|[id number] e for patient swty68626-9SofiDVSQSTRXIJASiqacdva d C-CDA narrative [address] 81DSUVQKRWGSQUDJMUIGNZOV1216-66-26 T10:22:111.2.840.406971.1.72.3.15| 1.2.840.896615.1.13.104.2.7.2.7278 [id number] [facility] 2023-09-01 10:19:37 7916-14-52Q29:19:37F ormatting of this note is different from the original.Images from the original note were not included.Patient's spouse notified of results. Verbalized understanding of results/recommendations via teach back. Repeat lab orders placed. No further questions or concerns at this time.Kamran Hua MD STAFF Signed YesterdayImprovement in BNP noted currently at 908.BMP within normal limits.Recommended to reduce Lasix from 40 to 20 mg daily and to continue KCl 10 daily.Repeat BMP/NT-proBNP in 2 weeks time 55471-1Xnyvgwqqj encounter MjboSU6482-06-11P87:21:57Telephone encounter NoteTXT1.2.840.440832.1.13.104.2.7 .2.002781|[id number] for patient gshv31270-1HifnTOGIADQGAGRLisacanc d C-CDA narrative textUT[address] TokqFbymrxqniMrusblctoYMVK58290011 52VSGQMXLRGJWDVHPSSCHKGB6877-97-39 T10:21:571.2.840.086899.1.72.3.15| 1.2.840.754065.1.13.104.2.7.2.7278 [id number] [facility] 2023-08-31 22:55:22 2950-08-18E14:55:22F ormatting of this note might be different from the original.Improvement in BNP noted currently at 908.BMP within normal limits.Recommended to reduce Lasix from 40 to 20 mg daily and to continue KCl 10 daily.Repeat BMP/NT-proBNP in 2 weeks time 88706-9Ddgdypydc encounter BcjdDD5388-33-43O80:55:31Telephone encounter NoteTXT1.2.840.464510.1.13.104.2.7 .2.738745|[id number] for patient dzto29384-7FojvGHHULXKYLDIPfvgfecg d C-CDA narrative textUT[address]TXTX[address] 84NXRULNECULZZWMTSNBCUPY7841-22-06 T22:55:311.2.840.155240.1.72.3.15| 1.2.840.074759.1.13.104.2.7.2.7278 [id number] [facility] 2023-08-31 14:59:45 5195-65-98J91:59:45F ormatting of this note might be different from the original.Spoke with patient's . She wanted to know the plan for the furosemide? Dr. Hua still working on the result notes.Patient's also asking about if patient needs to stay on the lisinopril? She states his BP has been stable while on the furosemide. She states it's been a little lower but not much. Advised her to continue to monitor BP.Per note on 08/20/23"Recommended starting Lasix 40 mg daily along with KCl 10 mg daily recommended to repeat labs in 1 week. Based upon which most likely will cut down the dose of Lasix to 20 mg based upon the labs" 75756-1Sbbctyske encounter XihkWF6445-93-45S24:10:44Telephone encounter NoteTXT1.2.840.537353.1.13.104.2.7 .2.073531|[id number] for patient vjjd75385-8UumlEQNNMPCZOZMLhfsnpzb d C-CDA narrative [id number] Sheavly RN[id number] 03GDCWMBRQFZQJHZDIRSKRYL4827-62-32 T15:10:441.2.840.909010.1.72.3.15| 1.2.840.306319.1.13.104.2.7.2.7278 [id number] Conrado Gonzalez RN [facility] 2023-08-30 15:54:07 3634-27-07S07:54:07F ormatting of this note might be different from the original.Copied from [facility] #[id number]. Topic: Clinical - Paperwork/Forms>> Aug 30, 2023 3:53 PM Patient [employer] Super[employer] wrote:Patient calling stating she had a missed call regarding patient lab results. Please advise 19509-4Uoeyoibzl encounter CmupOH3890-32-33N43:54:44Telephone encounter NoteTXT1.2.840.485596.1.13.104.2.7 .2.057307|[id number] for patient ojip30660-1KwufLOBYSKPZLFDNqucenga d C-CDA narrative [id number] [address] Of[id number] 41NKLUDKYSBKHCBNRVULZSYX2680-57-64 T15:54:441.2.840.011583.1.72.3.15| 1.2.840.519853.1.13.104.2.7.2.7278 [id number] Saba Evans [facility] 2023-08-30 13:10:56 0114-34-70L27:10:56F ormatting of this note might be different from the original.Copied from [facility] #[id number]. Topic: Clinical - Order>> Aug 30, 2023 1:10 PM Patient [employer] Supervisor wrote:Patient calling needing to speak with nurse regarding lab results.Please advise 37030-5Nifslxoui encounter DuegTP7524-92-31O32:14:17Telephone encounter NoteTXT1.2.840.967525.1.13.104.2.7 .2.140766|[id number] for patient afze39744-1BadlYUYWNFSBZIQCbtnwlic d C-CDA narrative text[id number] 06JGROSBCFFYQXSRLZUUJZBZ7627-92-55 T13:14:171.2.840.631561.1.72.3.15| 1.2.840.861197.1.13.104.2.7.2.7278 [id number] [facility] 2023-08-27 10:15:00 9680-45-67Q00:15:00F ormatting of this note is different from the original.Images from the original note were not included.Venipuncture collection performed by clean technique on the right anticubitus. Total of 1 attempts were made. Slight pressure and a bandage/dressing were applied to the site(s). The patient experienced no complications. The following specimens were processed according to instructions and sent to [facility] laboratories per lab order on 08/27/2023:LT BLUESST 1REDLAVPPTDK GREEN (LiHep)DK GREEN (SodH)GRAYDK BLUE (K2)DK BLUE (S)ACDBlood CultureNIPT/NTD 83062-4Kijdu PtfeWS6537-12-11D46:21:42Nurse NoteTXT1.2.840.172820.1.13.104.2.7 .2.779586|[id number] for patient idkl74743-6Eqzyp NoteLNNARRATIVEFormatted C-CDA narrative text[id number] 99TYBMUDWCAEWGWWEMHNLNNN3473-04-75 T10:21:421.2.840.376023.1.72.3.15| 1.2.840.998101.1.13.104.2.7.2.7278 [id number] [facility] 2023-08-19 14:30:00 0199-01-13F24:30:00F ormatting of this note is different from the original.Images from the original note were not included.Venipuncture collection performed by clean technique on the left anticubitus. Total of 1 attempts were made. Slight pressure and a bandage/dressing were applied to the site(s). The patient experienced no complications. The following specimens were processed according to instructions and sent to [facility] laboratories per lab order on today:LT BLUESSTREDLAVPPTLight GREEN (LiHep) 1DK GREEN (SodH)GRAYDK BLUE (K2)DK BLUE (S)ACDBlood CultureNIPT/NTD 30611-5Bsgvw AltwLB1068-08-85O00:53:22Nurse NoteTXT1.2.840.968441.1.13.104.2.7 .2.535020|[id number] for patient form08343-4Pbmnd NoteLNNARRATIVEFormatted C-CDA narrative text[address] Ja[id number] 24XBZTHIHQRKTKDJIFUNTRCW2740-11-31 T14:53:221.2.840.787091.1.72.3.15| 1.2.840.174951.1.13.104.2.7.2.7278 [id number] [facility] 2023-08-18 15:47:19 3525-58-07W27:47:19F ormatting of this note might be different from the original.Patient has been scheduled for echo and appointment on Wednesday 99414-3Piziktczx encounter YwbaSI0001-08-69I99:47:30Telephone encounter NoteTXT1.2.840.505227.1.13.104.2.7 .2.331732|[id number] for patient wxhs91001-2NeqlWDFDWTVIKGGZhgwtzdp d C-CDA narrative [id number] Sheavly RNUT[id number] 80EJFXWWXYUHVSOMSCMTHJIA0478-56-36 T15:47:301.2.840.038896.1.72.3.15| 1.2.840.720864.1.13.104.2.7.2.7278 [id number] Conrado Gonzalez RN [facility] 2023-08-18 12:25:39 6204-71-51M19:25:39F ormatting of this note might be different from the original.Patient's spouse notified. She is agreeable to plan. They will have the blood work done today.Will speak with PSS to see if echocardiogram can be scheduled prior to patient's office appointment. 57370-7Toehagmtc encounter FjepJX1726-66-25D40:27:15Telephone encounter NoteTXT1.2.840.753849.1.13.104.2.7 .2.329300|[id number] for patient vtfy45381-9ZotfYUZMNVSQCJZGrypqeim d C-CDA narrative [id number] Sheavly RN[id number] 70WNXDBBMUTNNKYQQKUIXUDC0059-68-30 T12:27:151.2.840.400343.1.72.3.15| 1.2.840.621961.1.13.104.2.7.2.7278 [id number] Conrado Gonzalez RN [facility] 2023-08-17 21:48:13 2540-45-59I18:48:13F ormatting of this note might be different from the original.Orders for labs BMP/NT-proBNP placed and also echocardiogram.Please see if the patient can come this Wednesday at 1 PM preferably after completion of the labs in the morning and echocardiogram if possible.Patient had a coronary angiogram done dated 06/10/2022 which showed patent stents with no significant worsening obstructive coronary disease noted. 13772-2Zprjlxiwk encounter ZybjVF3144-46-07B66:49:20Telephone encounter NoteTXT1.2.840.639939.1.13.104.2.7 .2.088891|[id number] for patient cplz32053-0TipyGFKQKKUCKCLJuqsmswt d C-CDA narrative textUT[address] Yuy[id number] 16SXOWFKUFRRPBNUYCWQTCSA6017-98-55 T21:49:201.2.840.775708.1.72.3.15| 1.2.840.656710.1.13.104.2.7.2.7278 [id number] [facility] 2023-08-17 16:28:36 2052-16-78M38:28:36F ormatting of this note might be different from the original.Spoke with patient and his spouse.They state patient has been having shortness of breath with exertion. States the symptoms started approximately 2 months ago, patient feels has been worsening over time. He currently feels short of breath walking to the mailbox and back, which is down a long driveway, and he used to be able to do without getting winded. Patient denies chest pain.The dizziness has been "going on for a while" on and off. Per spouse, it is primarily when patient stands from sitting. They are unsure if it is related to his heart.No other symptoms reported.Patient keeps a BP log, His BP has been averaging 130s/80s and HR 60s.Informed patient and spouse will route to Dr. Hua to see if patient should be seen sooner that 10/14/23 04668-2Jaltzrtno encounter KivnAW6753-57-63C34:34:20Telephone encounter NoteTXT1.2.840.261302.1.13.104.2.7 .2.022229|[id number] for patient qmjf84721-9DtfbCRUGINDARNEDmvyjgvr d C-CDA narrative [id number] Sheavly [id number] 60BFXFLCLAONZUONYIMQTWIE1818-85-28 T16:34:201.2.840.652993.1.72.3.15| 1.2.840.201657.1.13.104.2.7.2.7278 [id number] Conrado Gonzalez [facility] 2023-08-17 12:28:32 7676-59-97N08:28:32F ormatting of this note might be different from the original.Nestor Gomez is a 83 year old maleWife of patient is calling in regards to the patient having trouble while breathing and dizziness. States patient currently has 7 stints.Only wants to see Dr. Hua, next available was not until 10/14/2023, did book them for this and also added them to the waitlist.Please advise and contact her at [phone] (home) 22267-5Xnnajhwky encounter UqnuXH0669-87-47B00:30:25Telephone encounter NoteTXT1.2.840.596867.1.13.104.2.7 .2.738707|[id number] for patient likt87713-8ZaqfSJGRDLDXOJPJvplzaqm d C-CDA narrative [id number] War[id number] 58XZDIVJHCJXGKGHEAFQFHGV4506-57-45 T12:30:251.2.840.644008.1.72.3.15| 1.2.840.773145.1.13.104.2.7.2.7278 [id number] Meche Jarquin [facility] 2023-02-08 17:10:12 0455-88-08Z35:10:12F ormatting of this note might be different from the original.Pt discharged with diagnosis of flank pain and chronic bilateral low back pain with R sided sciatica. Printed and verbal instructions reviewed with and given to patient. Prescriptions given x 2. Pt verbalized understanding of teaching, medications, and recommended follow-up. Denies questions or concerns at this time. Pt ambulatory with cane at discharge. Appears in no apparent distress. Accompanied by . 50520-2Odlulmqvu department SxwcOY8791-20-05D06:10:45[facility] department NoteTXT1.2.840.218440.1.13.104.2.7 .2.429382|[id number] for patient sllk69823-2FtklIW231679755Nvlwoy R Goodrich RN[address]vdGal[address]Galveston[place] 49KTMJCHLIRQWFDPSKZLHGNS2512-53-06 T17:10:451.2.840.496869.1.72.3.15| 1.2.840.537192.1.13.104.2.7.2.7278 [id number] Eugenie Rockwell RN [facility] 2023-02-08 15:41:56 4537-79-97H99:41:56F ormatting of this note might be different from the original.Complaining of sciatic type pain to left leg for "a long time". Pain starts in left hip and radiates down left leg. States its getting worse. Took tylenol today. 14646-4Zyztyxajt department Triage midbDD9201-82-29A82:42:38[facility] department Triage noteTXT1.2.840.926921.1.13.104.2.7 .2.800014|[id number] for patient oiur56638-2Zmualyigt department [id number] Fief [id number] 16WQTDFLXDBYZBEHYJBSMLLD0547-23-59 T15:42:381.2.840.557602.1.72.3.15| 1.2.840.113950.1.13.104.2.7.2.7278 [id number] Sirisha Helms [facility] 2023-01-22 13:22:35 5819-89-60P22:22:35F ormatting of this note might be different from the original.Patient notified. 19455-4Sypxseect encounter EnuxXH3439-86-59V61:22:56Telephone encounter NoteTXT1.2.840.509367.1.13.104.2.7 .2.651872|[id number] for patient wtom30258-2MbsyRK450855828Gwhf Torres [id number] 41OTVFFZQIHHXOSUWEFMHKLM8645-57-43 T13:22:561.2.840.962180.1.72.3.15| 1.2.840.151847.1.13.104.2.7.2.7278 [id number] Maris Haines MA [facility] 2023-01-21 11:16:41 9375-38-80O65:16:41F ormatting of this note might be different from the original.Please inform patient that Dr. Bañuelos is OOO until 02/17/2023. He should expect to be contacted to reschedule following his return 25907-0Womplmleq encounter KmtpFT1130-91-79C35:17:51Telephone encounter NoteTXT1.2.840.133998.1.13.104.2.7 .2.359052|[id number] for patient xwzu21810-7MbsiNOLF-ETHYBM MIDLEVEL PROVIDERNP-FAMILY MIDLEVEL PROVIDER[id number] 92DSXCVCPOGTRMTYMADCCITV7871-85-06 T11:17:511.2.840.303570.1.72.3.15| 1.2.840.804051.1.13.104.2.7.2.7278 [id number] MANAGING BROKER-FAMILY MIDLEVEL PROVIDER [facility] 2023-01-20 15:58:44 6233-81-55N30:58:44F ormatting of this note might be different from the original.Spoke with patient via phone surgery cancelled in October 2022.Would like to reschedule surgeryPlease advice. 16492-6Xdxcolpbp encounter AklyZB4964-61-54W32:00:15Telephone encounter NoteTXT1.2.840.236722.1.13.104.2.7 .2.901172|[id number] for patient alwc98926-1RrbwEHVVFMJPTP[id number] 85EQTQBLJPMJUABLQXIDCMRF0242-52-58 T16:00:151.2.840.398379.1.72.3.15| 1.2.840.645056.1.13.104.2.7.2.7278 [id number] [facility] 2023-01-20 15:22:58 8071-39-84M64:22:58F ormatting of this note might be different from the original.Patient and spouse walked in to clinic and stated Nestor would like to reschedule his procedure : LASER ABLATION OF PROSTATE. He stated he needed to cancel due to not feeling well with flu like symptoms. He is now feeling better but stated his urinary symptoms have worsened. He is unsure if he needs another appt with Dr. Bañuelos prior to but is willing to come in and see him again if needed. Patient was informed I will get this message to his clinical staff and someone will contact him. The best call back number is [phone]. 46230-4Jxnshxntx encounter YbajSM1121-90-78E71:26:52Telephone encounter NoteTXT1.2.840.994298.1.13.104.2.7 .2.630560|[id number] for patient [id number] N Lara MA[address] Ds[id number] 49UMAPWKSRROVTRHSHXMNTBG0341-17-71 T15:26:521.2.840.282899.1.72.3.15| 1.2.840.022384.1.13.104.2.7.2.7278 [id number] Germania Henriquez MA [facility]
[2023-11-30 12:08] LABS: Absolute Eosinophils 0.2 K/uL (0-0.5); Absolute Lymphocytes (CBC) 1.5 K/uL (0.7-4.9); Absolute Monocytes 0.8 K/uL (0.1-1.3); Absolute Neutrophil 5.3 K/uL (1.8-8.0); Basophils % 0.5 % (0-1.3); Eosinophils % 2.3 % (0-4.4); Hematocrit 42.9 % (39.6-49.0); Hemoglobin 14.1 g/dL (13.6-17.9); MCH 31.1 pg (27.0-35.0); MCHC 32.9 g/dL (32.0-36.0); MCV 94.5 fL (80-100); MPV 8.5 fL (7.6-11.3); Neutrophils % 68.2 % (41.7-73.7); Platelets 259 thou/uL (152-406); RBC Red Blood Cell Count 4.54 M/uL (4.33-5.43); Red Cell Distribution Width 14.2 % (12.1-15.2)
[2023-11-30] MEDS ORDERED: MORPHINE 4 MG/ML SYR ONE (12:14)
[2023-11-30] MEDS ORDERED: ONDANSETRON 4 MG/2 ML VIAL ONE (12:14)
[2023-11-30 12:15] LABS: ALT/SGPT 24 U/L (16-61); Albumin 3.6 g/dL (3.4-5.0); Albumin/Globulin Ratio 1.2 (1.1-1.8); Alkaline Phosphatase 60 U/L (45-117); Anion Gap 6.2 mEq/L (5.0-15.0); BUN Blood Urea Nitrogen 21 mg/dL (7-18); Bicarbonate 29 mEq/L (21-32); Bilirubin Total 0.5 mg/dL (0.2-1.0); Globulin 2.9 g/dL (2.3-3.5); Glomerular Filtration Rate 76 ml/min (=/>90); Glucose Level 255 mg/dL (74-106); Lipase 36 U/L (13-75); Potassium 4.2 mEq/L (3.5-5.1); Protein, Total 6.5 g/dL (6.4-8.2); Sodium Level 136 mEq/L (136-145); Troponin High Sensitivity 5.6 pg/mL (<58.9)
[2023-11-30 12:18] LABS: AST/SGOT < 10 U/L (15-37)
--- NOTE | 2023-11-30 12:26 | RAD REPORT ---
EXAM DESCRIPTION: CT - Abdomen Pelvis W Contrast - 11/30/2023 11:58 am CLINICAL HISTORY: Abdominal pain COMPARISON: none. TECHNIQUE: Computed axial tomography of the abdomen pelvis was obtained. 100 cc Isovue-300 was admin istered intravenously. Oral contrast was not requested which limits evaluation of bowel and appendix All CT scans are performed using dose optimization technique as appropriate and may include automated exposure control or mA/KV adjustment according to patient size. FINDINGS: Mild fatty liver. Cholecystectomy The spleen, pancreas and adrenals are unremarkable. The right kidney lies within the pelvis. There is no evidence diverticulitis. The prostate gland is moderately to markedly enlarged. A normal appendix IMPRESSION: No acute abnormality is displayed.
[2023-11-30 12:29] LABS: Specific Gravity 1.025 (1.005-1.030); Sqamous Epithelial <5 /HPF (None Seen); Urine Bacteria None Seen /HPF (<20); Urine Bilirubin NEGATIVE (Negative); Urine Blood Negative (Negative); Urine Clarity Clear (Clear); Urine Color Light-Yellow (Yellow); Urine Culture Reflex Order NOT NEEDED; Urine Glucose 3+ (Negative); Urine Ketones NEGATIVE (Negative); Urine Microscopic Reflex YN ORDER UMIC; Urine Mucus Slight /HPF (None Seen); Urine Nitrite NEGATIVE (Negative); Urine Protein NEGATIVE (Negative); Urine RBC <5 /HPF (None Seen); Urine Urobilinogen Normal (Normal); Urine WBC <5 /HPF (<5)
--- NOTE | 2023-11-30 13:05 | ER ---
Nurse's Notes [facility] Name: Dave Moreland Age: 83 yrs Sex: Male : 1940 Arrival Date: 11/30/2023 Time: 11:12 Bed 5 Private MD: Diagnosis: Low back pain Presentation: 11/29 11:33 Chief complaint: Patient states: Back pain since Wednesday. No known falls or trauma. ll1 notices abdominal swelling after eating meals each day. No known fever. Coronavirus screen: Client denies travel out of the [place] in the last 14 days. At this time, the client does not indicate any symptoms associated with coronavirus-19. Ebola Screen: Patient denies travel to an Ebola-affected area in the 21 days before illness onset. Initial Sepsis Screen: Does the patient meet any 2 criteria? No. Patient's initial sepsis screen is negative. Does the patient have a suspected source of infection? No. Patient's initial sepsis screen is negative. Risk Assessment: Do you want to hurt yourself or someone else? Patient reports no desire to harm self or others. Onset of symptoms was November 28, 2023. 11:33 Method Of Arrival: Ambulatory 1 11:33 Acuity: CLARK 3 ll1 Triage Assessment: 11:36 General: Appears uncomfortable, Behavior is calm, cooperative, appropriate for age. ll1 Pain: Complains of pain in back Quality of pain is described as aching. GI: Reports bloating. Musculoskeletal: Reports pain in back. Historical: - Allergies: 11:32 Codeine; ll1 - PMHx: 11:32 Atrial fibrillation; Diabetes - NIDDM; GERD; Hyperlipidemia; Hypertension; Myocardial ll1 infarction; prostate problems; - PSHx: 11:32 cardiac stent x 7; Cholecystectomy; ll1 - Immunization history:: Adult Immunizations up to date. - Infectious Disease History:: Denies. - Social history:: Smoking status: Patient denies any tobacco usage or history of. Screenin:[address] [facility] ED Fall Risk Assessment (Adult) History of falling in the last 3 months, db including since admission No falls in past 3 months (0 pts) Confusion or Disorientation No (0 pts) Intoxicated or Sedated No (0 pts) Impaired Gait No (0 pts) Mobility Assist Device Used No (0 pt) Altered Elimination No (0 pt) Score/Fall Risk Level 0 - 2 = Low Risk Oriented to surroundings, Maintained a safe environment. Abuse screen: Denies threats or abuse. Denies injuries from another. Nutritional screening: No deficits noted. Tuberculosis screening: No symptoms or risk factors identified. Assessment: 12:56 Reassessment: No changes from previously documented assessment. Patient and/or family ll1 updated on plan of care and expected duration. Pain level reassessed. Patient is alert, oriented x 3, equal unlabored respirations, skin warm/dry/pink. 13:36 Reassessment: Patient appears in no apparent distress at this time. Patient and/or db family updated on plan of care and expected duration. Pain level reassessed. Patient is alert, oriented x 3, equal unlabored respirations, skin warm/dry/pink. General: Appears in no apparent distress. comfortable, Behavior is calm, cooperative. Pain: Complains of pain in back. Neuro: Level of Consciousness is awake, alert, obeys commands, Oriented to person, place, time, situation, Speech is normal. Respiratory: Airway is patent Respiratory effort is even, unlabored, Respiratory pattern is regular, symmetrical. Vital Signs: 11:33 BP 133 / 86; Pulse 82; Resp 18; Temp 97.6; Pulse Ox 96% on R/A; Weight 90.72 kg; Height ll1 5 ft. 10 in. ; Pain 8/10; 12:00 BP 138 / 84; Pulse 75; Resp 16; Pulse Ox 95% on R/A; db 13:00 BP 114 / 85; Pulse 67; Resp 18; Pulse Ox 95% ; db 11:33 Body Mass Index 28.70 (90.72 kg, 177.8 cm) ll1 11:33 Pain Scale: Adult ll1 ED Course: 11:15 Patient arrived in ED. mr 11:20 Haroldo Gerardo MD is Attending Physician. sp3 11:32 Arm band placed on Patient placed in an exam room, on a stretcher. ll1 11:34 Triage completed. ll1 11:58 CT Abd/Pelvis - IV Contrast Only In Process Unspecified. EDMS 12:11 Beckie Silva, RN is Primary Nurse. db 12:56 PO fluids given. ll1 13:36 Patient has correct armband on for positive identification. Bed in low position. Call db light in reach. Side rails up X 1. Provided Education on: DISCHARGE. Pulse ox on. NIBP on. 13:36 No provider procedures requiring assistance completed. IV discontinued, intact, db bleeding controlled, No redness/swelling at site. Administered Medications: 12:25 Drug: Ondansetron IVP 4 mg IVP once; over 2 minutes Route: IVP; Site: right antecubital;db 13:38 Follow up: Response: No adverse reaction db 12:25 Drug: morphine IVP or IV 4 mg IVP once over 4 mins Route: IVP; Infused Over: 4 mins; db Site: right antecubital; 13:38 Follow up: Response: No adverse reaction db Medication: 13:36 VIS not applicable for this client. db Outcome: 13:04 Discharge ordered by . jonathan 13:36 Discharged to home via wheelchair, with family, db 13:36 Condition: stable 13:36 Discharge instructions given to patient, family, Instructed on discharge instructions, follow up and referral plans. Prescriptions given X 1, 13:39 Patient left the ED. db Signatures: Dispatcher [employer] EDMS Kyra Rowe, Reg Reg mr Sara Kaplan, RN RN ll1 Haroldo Gerardo MD MD sp3 Beckie Silva, RN RN db Corrections: (The following items were deleted from the chart) 11:39 11:33 Chief complaint: Patient states: Back pain for a few days. Notices abdominal ll1 swelling after eating meals each day. No known fever ll1 11:39 11:33 Resp 18bpm; Temp 97.6F; 90.72 kg; Height 5 ft. 10 in.; BMI: 28.7; ll1 ll1
--- NOTE | 2023-11-30 13:05 | EDPHYS ---
Physician Documentation [facility] Name: Dave Moreland Age: 83 yrs Sex: Male : 1940 Arrival Date: 11/30/2023 Time: 11:12 Bed 5 Private MD: ED Physician Haroldo Gerardo HPI: 11/29 13:01 This 83 yrs old Male presents to ER via Ambulatory with complaints of Back Pain. sp3 13:01 83-year-old male with history of atrial fibrillation, diabetes, hyperlipidemia, sp3 hypertension, prior [place] now presents to the ED with low back pain for 1 day. Pain is worse when he bends over. He denies lifting any thing heavy or any direct injury. Review of systems otherwise negative. He denies fever, chest pain, shortness of breath, back pain, abdominal pain, vomiting, diarrhea, dysuria, urinary frequency, or any other signs or symptoms on ROS at this time.. Historical: - Allergies: 11:32 Codeine; ll1 - PMHx: 11:32 Atrial fibrillation; Diabetes - NIDDM; GERD; Hyperlipidemia; Hypertension; Myocardial ll1 infarction; prostate problems; - PSHx: 11:32 cardiac stent x 7; Cholecystectomy; ll1 - Immunization history:: Adult Immunizations up to date. - Infectious Disease History:: Denies. - Social history:: Smoking status: Patient denies any tobacco usage or history of. ROS: 13:02 Constitutional: Negative for fever, chills, and weight loss, Eyes: Negative for injury, sp3 pain, redness, and discharge, Neck: Negative for injury, pain, and swelling, Cardiovascular: Negative for chest pain, palpitations, and edema, Respiratory: Negative for shortness of breath, cough, wheezing, and pleuritic chest pain, Abdomen/GI: Negative for abdominal pain, nausea, vomiting, diarrhea, and constipation, MS/Extremity: Negative for injury and deformity, Skin: Negative for injury, rash, and discoloration, Neuro: Negative for headache, weakness, numbness, tingling, and seizure, Psych: Negative for depression, anxiety, suicide ideation, homicidal ideation, and hallucinations, Allergy/Immunology: Negative for hives, rash, and allergies, Endocrine: Negative for neck swelling, polydipsia, polyuria, polyphagia, and marked weight changes, 13:02 All other systems are negative, Exam: 13:02 Constitutional: This is a well developed, well nourished patient who is awake, alert, sp3 and in no acute distress. Head/Face: Normocephalic, atraumatic. Eyes: Pupils equal round and reactive to light, extra-ocular motions intact. Lids and lashes normal. Conjunctiva and sclera are non-icteric and not injected. Cornea within normal limits. Periorbital areas with no swelling, redness, or edema. Neck: Trachea midline, no thyromegaly or masses palpated, and no cervical lymphadenopathy. Supple, full range of motion without nuchal rigidity, or vertebral point tenderness. No Meningismus. Chest/axilla: Normal chest wall appearance and motion. Nontender with no deformity. No lesions are appreciated. Cardiovascular: Regular rate and rhythm with a normal S1 and S2. No gallops, murmurs, or rubs. Normal PMI, no JVD. No pulse deficits. Respiratory: Lungs have equal breath sounds bilaterally, clear to auscultation and percussion. No rales, rhonchi or wheezes noted. No increased work of breathing, no retractions or nasal flaring. Abdomen/GI: Soft, non-tender, with normal bowel sounds. No distension or tympany. No guarding or rebound. No evidence of tenderness throughout. Skin: Warm, dry with normal turgor. Normal color with no rashes, no lesions, and no evidence of cellulitis. MS/ Extremity: Pulses equal, no cyanosis. Neurovascular intact. Full, normal range of motion. Neuro: Awake and alert, GCS 15, oriented to person, place, time, and situation. Cranial nerves II-XII grossly intact. Motor strength 5/5 in all extremities. Sensory grossly intact. Cerebellar exam normal. Normal gait. Psych: Awake, alert, with orientation to person, place and time. Behavior, mood, and affect are within normal limits. 13:02 Back: No pain to palpation however pain on flexion noted., 13:05 ECG was reviewed by the Attending Physician. EKG demonstrates atrial fibrillation at 68 sp3 bpm with leftward axis, otherwise normal intervals, nonspecific ST's ST changes without evidence of acute ischemia. Vital Signs: 11:33 BP 133 / 86; Pulse 82; Resp 18; Temp 97.6; Pulse Ox 96% on R/A; Weight 90.72 kg; Height ll1 5 ft. 10 in. ; Pain 8/10; 12:00 BP 138 / 84; Pulse 75; Resp 16; Pulse Ox 95% on R/A; db 13:00 BP 114 / 85; Pulse 67; Resp 18; Pulse Ox 95% ; db 11:33 Body Mass Index 28.70 (90.72 kg, 177.8 cm) ll1 11:33 Pain Scale: Adult ll1 MDM: 11:25 Patient medically screened. sp3 13:02 Data reviewed: vital signs, nurses notes, old medical records, lab test result(s), EKG, sp3 radiologic studies. ED course: 83-year-old male with PMH above now with low back pain. Differential diagnosis includes musculoskeletal pain, versus GI pathology and to a lesser degree potential aortic pathology. Vital signs are within normal limits. Clinically I am not highly suspicious for UTI/pyelonephritis spectrum, sepsis, shock, or other critical illness. Low likelihood of AAA as well. Workup will include EKG, laboratory values and CT scan of the abdomen pelvis with IV contrast.. 13:04 ED course: Full workup negative except for some mild hyperglycemia without acidosis. CT sp3 scan of the abdomen pelvis demonstrate no acute abnormality. Urine is clean. Patient feels much better and vital signs continue to be normal. We will discharge patient home on tramadol and PCP follow-up.. 11/29 11:35 Order name: CBC with Diff; Complete Time: 12:52 3 11/29 11:35 Order name: CMP; Complete Time: 12:52 sp3 11/29 11:35 Order name: Lipase; Complete Time: 12:52 sp3 11/29 11:35 Order name: Urinalysis w/ reflexes; Complete Time: 12:52 sp3 11/29 11:35 Order name: Troponin High Sensitivity; Complete Time: 12:52 sp3 11/29 11:35 Order name: CT Abd/Pelvis - IV Contrast Only; Complete Time: 12:52 sp3 11/29 11:35 Order name: EKG; Complete Time: 11:36 sp3 11/29 11:35 Order name: IV Saline Lock; Complete Time: 12:02 3 11/29 11:35 Order name: Labs collected and sent; Complete Time: 12:02 3 11/29 11:35 Order name: EKG - Nurse/Tech; Complete Time: 12:13 sp3 Administered Medications: 12:25 Drug: Ondansetron IVP 4 mg IVP once; over 2 minutes Route: IVP; Site: right antecubital;db 13:38 Follow up: Response: No adverse reaction db 12:25 Drug: morphine IVP or IV 4 mg IVP once over 4 mins Route: IVP; Infused Over: 4 mins; db Site: right antecubital; 13:38 Follow up: Response: No adverse reaction db Disposition Summary: 11/30/23 13:04 Discharge Ordered Notes: Location: Home sp3 Condition: Stable sp3 Diagnosis - Low back pain sp3 Followup: sp3 - With: Private Physician - When: Upon discharge from the Emergency Department - Reason: Continuance of care Discharge Instructions: - Discharge Summary Sheet sp3 - Acute Back Pain, Adult sp3 Forms: - Medication Reconciliation Form sp3 - Antibiotic Education sp3 - Prescription Opioid Use sp3 - Patient Portal Instructions sp3 - Leadership Thank You Letter sp3 Prescriptions: - Tramadol 50 mg Oral Tablet - take 1 tablet ORAL route every 8 hours as needed; 12 tablet; Refills: 0, sp3 Product Selection Permitted Signatures: Dispatcher [employer] EDSara Whipple RN RN ll1 Haroldo Gerardo MD MD sp3 Beckie Silva RN RN db Corrections: (The following items were deleted from the chart) 11:36 11:35 CBC+H.LAB.BRZ ordered. EDMS EDMS 11:36 11:35 COMPREHENSIVE METABOLIC PANEL+C.LAB.BRZ ordered. EDMS EDMS 11:36 11:35 LIPASE+C.LAB.BRZ ordered. EDMS EDMS 11:36 11:35 Urinalysis+U.LAB.BRZ ordered. EDMS EDMS 11:36 11:35 Troponin High Sensitivity+C.LAB.BRZ ordered. EDMS EDMS 13:01 13:00 ED course: Full workup negative including CT scan of the abdomen pelvis. Patient sp3 feels much improved. I believe his back pain may be musculoskeletal in nature. We will send him home on tramadol and PCP follow-up.. sp3
[2023-11-30 13:57] VITALS: BP 114/85; TEMP 97.6; O2SAT 95
--- NOTE | 2023-12-02 12:16 | EKG ---
Test Date: 2023-11-30 Test Time: 12:06:26 Lithograph Printer: HOA MEASUREMENT RESULTS: Intervals: Rate: 68 NE: QRSD: 96 QT: 392 QTc: 416 [place]: P: NE: QRS: -66 T: 49 INTERPRETIVE STATEMENTS: Atrial fibrillation Left axis deviation Inferior infarct, age undetermined Abnormal ECG Compared to ECG 04/14/2023 14:41:11 No significant changes Electronically Signed On 12-02-23 12:14:24 CDT by Kenn Christine
== END 2023-11-30 13:39 | disposition home or self-care (01) ==
LOC: ER 11:12
DX: M54.50 Low back pain, unspecified (principal)
CPT/HCPCS: 93005; 85025; 81001; 36415; 84484; 83690; 80053; 74177; 96375; 96374; 99284; Q9967; J2405

== ENCOUNTER 2024-05-11 17:11 | Observation (INO) | payer OTHER ==
--- OUTSIDE RECORDS SUMMARY | 2024-05-11 17:22 | XMS REPORT | Continuity of Care Document ---
Author Name Unknown Address [address] [facility] [address] [place] [address] [facility] Address [address] [facility] [address] [place] [address] Care Team Providers Care Supervisor Dental Laboratory Name Role Phone Evelin Wyatt Primary Care Physician FRANKLYN BAÑUELOS Attending Clinician Unavailable KAMRAN HUA Attending Clinician Unavaila RITA Linton Attending Clinician Unavailable EVELIN COLMENARES Attending Clinician Unavailable KIMBERLEY YAO Attending Clinician Unavailable Franklyn Bañuelos MD Attending Clinician [phone] Kimberley Beatty Attending Clinician [phone] Lane Jacobs Attending Clinician Unavailable BEBE PAINTING Attending Clinician UnavailJessica Fish RN Attending Clinician Unavailcyn Baez RN, Loren Elkins Attending Clinician Unavail able SWETA COOLEY Attending Clinician Unavailable SWETA COOLEY Attending Clinician Unavailable Sweta Cooley MD Attending Clinician [phone] Nurse, [facility] Surgery Attending Clinician Mac Newton RN, Km Addison Attending Clinician Unavail able NORA TRACEY Attending Clinician Unavailable Nora Tracey DO Attending Clinician [phone] Dedra ROMERO, Evelin Attending Clinician + [phone], [facility] Attending Clinician Unavailable Aris FOX, Kamran Patel.H. Attending Clinician [phone] ALEXANDRA HERNANDEZ Attending Clinician Unav ailable ALEXANDRA HERNANDEZ Attending Clinician Unav ailable Doctor Unassigned, [place] Attending Clinician U noemi Newton RN, Km Addison Attending Clinician Unavail able Franklyn Bañuelos MD Attending Clinician [phone] KAITLIN WYATT Attending Clinician Unavailable KAITLIN WYATT Attending Clinician Unavailable Dedra ROMERO, Evelin Attending Clinician + Aris FOX, Kamran K.H. Attending Clinician [phone] Lab, Ang - Db Attending Clinician Unavailable 2, [facility] Attending Clinician Unavailable Kimberley Beatty Attending Clinician [phone] Chana Anna MD Attending Clinician CHANA ANNA Attending Clinician Joana vailable Unknown, Attending Attending Clinician Unavailab LIBORIO Reyna Attending Clinician Unavailable MEET LUDWIG Attending Clinician Unavailable MEET LUDWIG Attending Clinician Unavailable Martha [place] OT Attending Clinician Unavail able Liborio Ceballos MD Attending Clinician [phone] KAYLIE HUA Attending Clinician Unavailable Liborio Ceballos MD Attending Clinician [phone] Keon Scherer MD Attending Clinician +[phone] Kaylie Hua MD Attending Clinician [phone] Bebe Dodd Attending Clinician [phone] Heather Henry MD Attending Clinician [phone] HEATHER HENRY Attending Clinician UnavailHEATHER [place] Attending Clinician UnavailALCON Kowalski Attending Clinician Unavailable Alcon Oliva DO Attending Clinician [phone] ROWDY ENRIQUE Attending Clinician Unavailable Enrique SEC[employer]ITY PROFESSIONALS, Reenu Attending Clinician [phone] Marline SELENIUM PLANT OPERATOR, Jayden S Attending Clinician JAVIER Pinzon Attending Clinician Unavailable Morris PAC, Javier S Attending Clinician [phone] Kenn Christine MD Attending Clinician [phone] Pob, [facility] Lab Main Attending Clinician UnavailFADUMO Baez Attending Clinician Unavailable Samantha FOX, Fadumo Hilario Attending Clinician [phone] HALEY CAMEJO Attending Clinician Unavailable Haley Camejo MD Attending Clinician [phone] Nehal Del Real MD Attending Clinician + [phone] , [facility] Surg Spec Procedure Attending Clinician Unavailable Nurse, [facility] Surgery Gu Attending Clinician Mac Jimenez MD, Elinor Hernandez Attending Clinician [phone] ELINOR JIMENEZ Attending Clinician Unavail ELINOR Zimmer Attending Clinician Unavail able GEE BLOUNT Attending Clinician Unavail able GEE BLOUNT Attending Clinician Unavail Gee Aggarwal MD Attending Clinician [phone] Ebrahiamari [employer], Luz Maria Attending Clinician [phone] EBLUZ MARIA MORALES Attending Clinician Unavailable Raul [employer]ESSION[employer], Tamera Attending Clinician [phone] RADIOLOGY Attending Clinician Unavailable TAMERA CARTER Attending Clinician UnavailPONCHO Gordon Attending Clinician Unav ailable PONCHO DENNEY Attending Clinician Unav ailable Fely PAC, Jorge Baeza Attending Clinician [phone] NESTOR SALDAÑA III Attending Clinician UnavailNEHAL Medina Attending Clinician Unavaila GISSELLE Rob Attending Clinician Unavailab Anh FOX, Karlie Attending Clinician [phone] FLORENTIN THAPA Attending Clinician Unavailable [place] [employer], Florentin Restrepo Attending Clinician [phone], [facility] Attending Clinician Un available Shyanne Bland MD Attending Clinician + [phone] SHYANNE BLNAD Attending Clinician UnavailSHYANNE Alexander Attending Clinician Unavaila ble Tech, [facility] Attending Clinician Unavaila ble Only, [facility] Test Attending Clinician Unavailable ACE BROWN Attending Clinician Unavailable Douglas ROMERO, Ace Attending Clinician [phone] KARLIE JIM Attending Clinician Unavailable CHUCKIE SHEEHAN Attending Clinician Unavailable ANYI DE SANTIAGO Attending Clinician UnavailKAYLIE Castañeda Attending Clinician Unavailable CINDY MTZ Attending Clinician Unavailable ZARA YBARRA Attending Clinician Unavailable ORIN MCNAMARA Attending Clinician Unavailable FRANKLYN BAÑUELOS Admitting Clinician Unavailable HUA, SENDIL K.H. Admitting Clinician Unavaila RITA Linton Admitting Clinician Unavailable SWETA COOLEY Admitting Clinician Unavailable NORA TRACEY Admitting Clinician Unavailable Nora Tracey DO Admitting Clinician [phone] KAITLIN WYATT Admitting Clinician Unavailable ALCON OLIVA Admitting Clinician Unavailable JAVIER MORRIS Admitting Clinician Unavailable Aris FOX, Sendil K.H. Admitting Clinician + [phone] PONCHO DENNEY Admitting Clinician Unav FLORENTIN Saez Admitting Clinician Unavailable ELINOR JIMENEZ Admitting Clinician Unavail able NEHAL DEL REAL Admitting Clinician Unavaila marjorie Payers Payer Name Policy Type Policy Number Effective Date Expirati on Date Source MEDICARE PART A \\T\\ B [id number] 2004 00:00:00 [facility] [id number] 2016 00:00:00 Problems Condition Name Condition Details Condition Category Status Onset Date Resolution Date Last Treatment Date Treating Clinician Comments Source UTI (urinary tract infection) UTI (urinary tract infection) Disease Active 03-08 00:00: 00 [facility] Benign prostatic hyperplasi a, unspecifie d whether lower urinary tract symptoms present Benign prostatic hyperplasi a, unspecifie d whether lower urinary tract symptoms present Disease Active 02-21 00:00: 00 [facility] Constipati on due to slow transit Constipati on due to slow transit Disease Active 2022-06 00:00: 00 [facility] Fissure in ano Fissure in ano Disease Active 2022-06 0-19 00:00: 00 [facility] Urinary frequency Urinary frequency Disease Active 4 00:00: 00 Overview: Formattin g of this note might be different from the original. Added automatic ally from request for surgery [id number] [facility] Benign prostatic hyperplasi a with lower urinary tract symptoms, symptom details unspecifie d Benign prostatic hyperplasi a with lower urinary tract symptoms, symptom details unspecifie d Disease Active 4 00:00: 00 Overview: Formattin g of this note might be different from the original. Added automatic ally from request for surgery [id number] [facility] Dyslipidem ia Dyslipidem ia Disease Active 11-18 00:00: 00 Overview: Formattin g of this note might be different from the original. Added automatic ally from request for surgery [id number] [facility] RAZO (dyspnea on exertion) RAZO (dyspnea on exertion) Disease Active 11-18 00:00: 00 Overview: Formattin g of this note might be different from the original. Added automatic ally from request for surgery [id number] [facility] Atypical chest pain Atypical chest pain Disease Active 11-18 00:00: 00 Overview: Formattin g of this note might be different from the original. Added automatic ally from request for surgery [id number] [facility] Anginal equivalent Anginal equivalent Disease Active 11-18 00:00: 00 Overview: Formattin g of this note might be different from the original. Added automatic ally from request for surgery [id number] [facility] Acute cardioembo lic stroke Acute cardioembo lic stroke Disease Active 3-11 00:00: 00 [facility] PRITESH (obstructi ve sleep apnea) PRITESH (obstructi ve sleep apnea) Disease Active 2020-06 2-13 00:00: 00 [facility] Iron deficiency Iron deficiency Disease Active 2020-06 1-22 00:00: 00 [facility] Osteoarthr itis of left shoulder Osteoarthr itis of left shoulder Disease Active 2020-06 1-16 00:00: 00 [facility] Inguinal hernia Inguinal hernia Disease Active -24 00:00: 00 [facility] Non-recurr ent bilateral inguinal hernia without obstructio n or gangrene Non-recurr ent bilateral inguinal hernia without obstructio n or gangrene Disease Active 524 00:00: 00 Overview: Formattin g of this note might be different from the original. Added automatic ally from request for surgery [id number] [facility] Acute pancreatit is Acute pancreatit is Disease Active 3- 00:00: 00 [facility] COVID-19 COVID-19 Disease Active 2- 00:00: 00 [facility] Greater trochanter ic bursitis of left hip Greater trochanter ic bursitis of left hip Disease Active 11-27 00:00: 00 Overview: Formattin g of this note might be different from the original. Added automatic ally from request for surgery [id number] [facility] SI (sacroilia c) joint dysfunctio n SI (sacroilia c) joint dysfunctio n Disease Active 11-27 00:00: 00 Overview: Formattin g of this note might be different from the original. Added automatic ally from request for surgery [id number] [facility] Onychomyco sis of toenail Onychomyco sis of toenail Disease Active 2018-06 2-15 00:00: 00 [facility] Lumbar spondylosi s Lumbar spondylosi s Disease Active 7- 00:00: 00 [facility] Degenerati on of lumbar interverte bral disc Degenerati on of lumbar interverte bral disc Disease Active 6 00:00: 00 [facility] Lumbar radiculopa thy Lumbar radiculopa thy Disease Active 6 00:00: 00 [facility] Myofascial pain Myofascial pain Disease Active 6 00:00: 00 [facility] Elevated sed rate Elevated sed rate Disease Active 10-05 00:00: 00 [facility] Low ferritin Low ferritin Disease Active 09-14 00:00: 00 [facility] Controlled type 2 diabetes mellitus with complicati on, with long-term current use of insulin Controlled type 2 diabetes mellitus with complicati on, with long-term current use of insulin Disease Active 07-07 00:00: 00 [facility] Controlled type 2 diabetes mellitus with complicati on, with long-term current use of insulin Controlled type 2 diabetes mellitus with complicati on, with long-term current use of insulin Disease Active 07-07 00:00: 00 [facility] Bradycardi a Bradycardi a Disease Active 2017-06 00:00: 00 [facility] Weakness Weakness Disease Active 2017-06 00:00: 00 [facility] Dizziness Dizziness Disease Active 2017-06 00:00: 00 [facility] Coronary artery disease involving [place] coronary artery of [place] heart without angina pectoris Coronary artery disease involving [place] coronary artery of [place] heart without angina pectoris Disease Active 2017-06 00:00: 00 [facility] Essential hypertensi on Essential hypertensi on Disease Active 2017-06 00:00: 00 [facility] PAF (paroxysma l atrial fibrillati on) PAF (paroxysma l atrial fibrillati on) Disease Active 2017-06 00:00: 00 [facility] Coronary artery disease involving [place] coronary artery of [place] heart without angina pectoris Coronary artery disease involving [place] coronary artery of [place] heart without angina pectoris Disease Active 2017-06 00:00: 00 [facility] Gastritis Gastritis Disease Active 11-12 00:00: 00 [facility] Chronic fatigue Chronic fatigue Disease Active 10-15 00:00: 00 [facility] Colon polyps Colon polyps Disease Active 06-25 00:00: 00 [facility] Fatty liver Fatty liver Disease Active 06-25 00:00: 00 [facility] Migraines Migraines Disease Active 06-25 00:00: 00 [facility] Vitiligo Vitiligo Disease Active 06-25 00:00: 00 [facility] Low testostero ne Low testostero ne Disease Active 06-25 00:00: 00 [facility] Statin intoleranc e Statin intoleranc e Disease Active 08-07 00:00: 00 [facility] Diabetic polyneurop athy associated with [...] Smoker Smokeless Tobacco Never Used [facility] Status Date Diabetic Eye Exam Overdue 06/21/2014 Done 06/21/2013 Seasonal Influenza Vaccine Next Due 03/21/2018 Done 03/21/2017 Imm Admin: Influenza (IM) Diabetic Foot Exam Next Due 09/30/2018 Done 09/30/2017 [employer] : WORKFLOW - DIABETES - DIABETIC FOOT EXAM PERFORMED Patient has more history with this topic... PLAN:Cont inue same medicatio ns Examine and protect feet , [facility] Occlusion and stenosis of unspecifie d carotid artery Occlusion and stenosis of unspecifie d carotid artery Disease Active 08-19 00:00: 00 Overview: Formattin g of this note might be different from the original. Overview: Converted from Centricit y:Descrip tion - CAROTID ARTERY STENOSIS [facility] Anxiety Anxiety Disease Active [facility] Allergies, Adverse Reactions, Alerts Allergy Name Allergy Type Status Severity Reaction(s) Onset Date Inactive Date Treating Clinician Comments Source DOXYCYCL INE MONOHYDR ATE DRUG INGREDI Active N/V 02-15 00:00: 00 [facility] Doxycycl ine Monohydr ate Propensi ty to adverse reaction s Active Nausea and/or Vomiting 02-15 00:00: 00 [facility] Ibuprofe n Propensi ty to adverse reaction s Active Nausea and/or Vomiting 06-28 00:00: 00 Patient notes hx of stentsAbd ominal discomfor t when taking ibuprofen [facility] IBUPROFE N DRUG INGREDI Active N/V 06-28 00:00: 00 [facility] Glimepir lucia Propensi ty to adverse reaction s Active Anxiety 07-30 00:00: 00 [facility] GLIMEPIR LCUIA DRUG INGREDI Active Anxiety 07-30 00:00: 00 [facility] Statins- Hmg-Coa Reductas e Inhibito rs Propensi ty to adverse reaction s Active Other - See comments 08-07 00:00: 00 Severe myalgia [facility] STATINS- HMG-COA REDUCTAS E INHIBITO RS Drug Class Active Other-Cmnt 08-07 00:00: 00 [facility] Statins- Hmg-Coa Reductas e Inhibito rs Propensi ty to adverse reaction s Active Other - See comments 08-07 00:00: 00 Severe myalgia [facility] Codeine Propensi ty to adverse reaction s Active Rash 2017-06 00:00: 00 [facility] CODEINE DRUG INGREDI Active Rash 2017-06 00:00: 00 [facility] Canaglif lozin Propensi ty to adverse reaction s Active Other - See comments 01-18 00:00: 00 Genital mycotic infection s [facility] CANAGLIF LOZIN DRUG INGREDI Active Other-Cmnt 01-18 00:00: 00 [facility] Social History Social Habit Start Date Stop Date Quantity Comments Source Gender identity [facility]coholic beverage intake 2024-05-03 00:00:00 2024-05-03 00:00:00 Current non-drinker of alcohol (finding) [facility] Alcohol intake 2023-10-19 00:00:00 2023-10-19 00:00:00 Current non-drinker of alcohol (finding) [facility] History of Social function 2023-07-23 00:00:00 2023-07-23 00:00:00 [facility] Exposure to SARS-CoV-2 (event) 2022-09-19 00:00:00 2022-09-29 10:55:[address] [facility] Tobacco use and exposure 2021-12-30 00:00:00 2021-12-30 00:00:00 Smokeless tobacco non-user [facility] Sex assigned at 1940 00:00:00 1940 00:00:00 [facility] Smoking Status Start Date Stop Date Source Never smoked tobacco [facility] Medications Ordered Medication Name Filled Medication Name Start Date Stop Date Current Medication? Ordering Clinician Indication Dosage Frequency Signature (SIG) Comments Components Source escitalopra m oxalate 10 mg tablet 2023-06 00:00: 00 Yes [id number] 10mg Take 1 tablet by mouth in the morning. [facility] Nitrofurant oin&Nit. Macrocryst (MACROBID) 100 mg capsule 2023-06 00:00: 00 05-17 05:59 :00 Yes [id number] 100mg Take 1 capsule by mouth in the morning and 1 capsule in the evening. Do all this for 10 days. [facility] clotrimazol e 1 % solution 2023-06 00:00: 00 05-18 05:59 :00 Yes [id number] Apply to area(s) 2 (two) times daily for 14 days. [facility] Insulin Asp Prt-Insulin Aspart (NOVOLOG MIX 70-30) 100 unit/mL (70-30) injection 2023-06 00:00: 00 Yes [id number] 16U inject 16-20 Units under the skin in the morning and 16-20 Units in the evening. inject with meals. IF YOUR BG IS LESS THAN 140, TAKE HALF OF YOUR DOSE. HOLD YOUR DOSE IF YOUR BG IS LESS THAN 80. [facility] blood sugar diagnostic (ONETOUCH VERIO TEST STRIPS) strip 2023-06 00:00: 00 Yes [id number] Use as directed to check blood sugar 3 times daily for Type 2 diabetes mellitus E11.42 [facility] levoFLOXaci n 500 mg tablet 2023-06 00:00: 00 04-21 00:00 :00 No [id number] 500mg Take 1 tablet by mouth every 24 (twenty-fo ur) hours for 5 days. [facility] ciprofloxac in HCl 500 mg tablet 2023-06 00:00: 00 04-11 04:59 :00 Yes [id number] 500mg Take 1 tablet by mouth every 12 (twelve) hours for 5 days. [facility] gentamicin injection 160 mg 2023-06 16:30: 00 03-29 16:00 :00 No [id number] 160mg 160 mg, Intramuscu lar, ONCE, 1 dose, On Wed03/29/24 at 1130, PADMA, Reason for Anti-Infec tive: Surgical Prophylaxi s, Surgical Prophylaxi s: Genitourin alice, Duration of therapy: within 24 hours of surgery [facility] mirabegron 50 mg tablet 2023-06 00:00: 00 04-29 05:59 :00 Yes [id number] 50mg Take 1 tablet by mouth in the morning for 30 days. [facility] amoxicillin -pot clavulanate 500 mg (AUGMENTIN) 500-125 mg tablet 2023-06 00:00: 00 04-04 04:59 :00 No [id number] 500mg Take 1 tablet by mouth in the morning and 1 tablet at noon and 1 tablet in the evening. Do all this for 5 days. [facility] tolterodine LA (DETROL LA) 2 mg 24 hr capsule 2023-06 00:00: 04-06 04:59 :00 No [id number] 2mg Take 1 capsule by mouth in the morning for 14 days. [facility] iopamidol (ISOVUE 370-500 mL) injection 85 mL 03-19 04:15: 00 03-19 04:15 :00 No [id number] 85mL 85 mL, Intravenou s, ONCE, 1 dose, On 03/18/24 at 2315, Routine [facility] morphine (2 mg/mL) injection 2 mg 03-19 02:15: 00 03-19 02:16 :00 No 2mg 2 mg, Slow IV Push, ONCE, 1 dose, On 03/18/24 at 2115, STAT [facility] cefTRIAXone (ROCEPHIN) 1,000 mg in NaCl 0.9% (NS) 100 mL MINI-BAG 03-19 02:00: 00 03-19 02:54 :00 No 1000mg 1,000 mg, IV Piggyback, ONCE, 1 dose, On 03/18/24 at 2100, Administer over 30 Minutes, 100 mL, Reason for Anti-Infec tive: Documented Infection, Documented Infection Site: Urine, Duration of Therapy: Once (ED) [facility] morphine (2 mg/mL) injection 2 mg 03-19 00:30: 00 03-19 00:36 :00 No 2mg 2 mg, Slow IV Push, ONCE, 1 dose, On 03/18/24 at 1930[facility]PYRIDIUM[facility] tablet 200 mg 03-19 00:30: 00 03-19 00:36 :00 No 200mg 200 mg, Oral, ONCE, 1 dose, On 03/18/24 at 1930, [facility] phenazopyri dine 200 mg tablet 03-19 00:00: 00 04-21 00:00 :00 No [id number] 200mg Take 1 tablet by mouth in the morning and 1 tablet at noon and 1 tablet in the evening. [facility] cefdinir 300 mg capsule 03-19 00:00: 00 03-29 00:00 :00 No [id number] 300mg Take 1 capsule by mouth every 12 (twelve) hours. [facility] HYDROcodone -acetaminop hen 5-325 mg tablet 03-19 00:00: 00 03-27 04:59 :00 Yes [id number] 1{tbl} Take 1 tablet by mouth every 4 (four) hours as needed for Pain (scale 7-10) for up to 7 days. Indication s: acute pain [facility] Nitrofurant oin&Nit. Macrocryst 100 mg capsule 03-15 00:00: 00 03-23 04:59 :00 No [id number] 100mg Take 1 capsule by mouth in the morning and 1 capsule in the evening. Do all this for 7 days. [facility] HYDROcodone -acetaminop hen (NORCO 5) tablet 1 tablet 03-10 17:45: 00 03-10 17:43 :00 No 1{tbl} 1 tablet, Oral, ONCE, 1 dose, On Wed03/10/24 at 1245, Routine, PACU [facility] FENTanyl (PF) (SUBLIMAZE) injection 25 mcg 03-10 17:30: 47 03-10 18:33 :03 No 25ug 25 mcg, Slow IV Push, Q5MIN PRN, 4 doses, Starting on Wed03/10/24 at 1230, Until Wed03/10/24 at 1333, Routine, Pain Scale 4-6, PACU [facility] escitalopra m oxalate 10 mg tablet 03-10 17:00: 23 Yes 10mg Take 1 tablet by mouth in the morning. [facility] lidocaine (XYLOCAINE) 2 % jelly URO-JET 03-10 16:31: 00 03-10 16:47 :55 No PRN, Starting on Wed03/10/24 at 1131, Until Wed03/10/24 at 1147, Routine, Intra-op [facility] sodium chloride 0.9 % irrigation solution 03-10 15:33: 00 03-10 16:47 :55 No PRN, Starting on Wed03/10/24 at 1033, Until Wed03/10/24 at 1147, Intra-op [facility] povidone-io dine (BETADINE) 10 % solution 03-10 15:29: 00 03-10 16:47 :55 No PRN, Starting on Wed03/10/24 at 1029, Until Wed03/10/24 at 1147, Routine, Intra-op [facility] cephALEXin 250 mg capsule 03-10 00:00: 00 03-29 00:00 :00 No [id number] 500mg Take 2 capsules by mouth every 12 (twelve) hours. [facility] vitamin B-12 (CYANOCOBAL LARA) tablet 1,000 mcg 03-09 14:00: 00 03-11 00:00 :24 No 1000ug 1,000 mcg, Oral, DAILY, First dose on Wed03/09/24 at 0900, Until Discontinu ed, Routine [facility] escitalopra m oxalate (LEXAPRO) tablet 10 mg 03-09 14:00: 00 03-11 00:00 :24 No 10mg 10 mg, Oral, DAILY, First dose on Wed03/09/24 at 0900, Until Discontinu ed, Routine [facility] pantoprazol e (PROTONIX) EC tablet 40 mg 03-09 14:00: 00 03-11 00:00 :24 No 40mg 40 mg, Oral, DAILY, First dose on Wed03/09/24 at 0900, Until Discontinu ed, Routine [facility] furosemide (LASIX) tablet 40 mg 03-09 14:00: 00 03-11 00:00 :24 No 40mg [Order 1 Start] Name: furosemide (LASIX) tablet 40 mg Signed Summary: 40 mg, Oral, QAM, First dose on Wed03/09/24 at 0900, Until Discontinu ed, Routine [Order 1 End] [Order 2 Start] Name: furosemide (LASIX) tablet 20 mg Signed Summary: 20 mg, Oral, QPM, First dose on Wed03/09/24 at 1700, Until Discontinu ed, Routine [Order 2 End] [facility] aspirin EC tablet 81 mg 03-09 14:00: 00 03-11 00:00 :24 No 81mg 81 mg, Oral, DAILY, First dose on Wed03/09/24 at 0900, Until Discontinu ed, Routine [facility] enoxaparin (LOVENOX) injection 90 mg 03-09 13:00: 00 03-09 13:46 :00 No 1mg/kg 90 mg (rounded from 86.5 mg = 1 mg/kg ?86.5 kg), Subcutaneo us, Q12H, 1 dose, First dose (after last modificati on) on Wed03/09/24 at 0800, Routine [facility] insulin NPH and regular human 70-30 (70-30 U-100 INSULIN) 100 unit/mL (70-30) injection 20 Units 03-09 12:30: 00 03-11 00:00 :24 No 20U 20 Units, Subcutaneo us, BIDAC, First dose on Wed03/09/24 at 0730, Until Discontinu ed, Routine [facility] butalbital- acetaminoph en-caff (ESGIC) 50-325-40 mg tablet 1 tablet 03-09 11:45: 25 03-11 00:00 :23 No 1{tbl} 1 tablet, Oral, Q4HPRN, Starting on Wed03/09/24 at 0645, Until Wed03/10/24 at 1900, Routine, Headache [facility] tamsulosin (FLOMAX) capsule 0.4 mg 03-09 04:00: 00 03-11 00:00 :24 No .4mg 0.4 mg, Oral, QHS, First dose on Wed03/08/24 at 2300, Until Discontinu ed, Routine [facility] vancomycin (VANCOCIN) 1,000 mg in NaCl 0.9% (NS) 250 mL VIAL-MATE IV piggyback 03-09 01:30: 00 03-11 00:00 :24 No 1000mg 1,000 mg, IV Piggyback, Q12H ABX, First dose on Wed03/08/24 at 2030, Until Discontinu ed, Administer over 60 Minutes, 250 mL, Reason for Anti-Infec tive: Documented Infection, Documented Infection Site: Urine, Duration of Therapy: 7 days [facility] Sliding Scale Insulin - Lispro (HumaLOG) 03-08 22:00: 00 03-11 00:00 :24 No Subcutaneo us, TID MEALS+HS, First dose on Wed03/08/24 at 1700, Until Discontinu ed, Routine [facility] enoxaparin (LOVENOX) injection 40 mg 03-08 22:00: 00 03-09 01:39 :57 No 40mg 40 mg, Subcutaneo us, DAILY, First dose on Wed03/08/24 at 1700, Until Discontinu ed, Routine [facility] glucagon HCL injection 1 mg 03-08 19:18: 46 03-11 00:00 :24 No 1mg 1 mg, Intramuscu lar, PRN, Starting on Wed03/08/24 at 1418, Until Wed03/10/24 at 1900, PADMA, Low blood sugar, Blood Glucose < or = 70 mg/dL and patient is NPO, unable to swallow or has mental changes. [facility] dextrose 50 % in water (D50W) injection 25 mL 03-08 19:18: 46 03-11 00:00 :24 No 25mL 25 mL, Slow IV Push, PRN, Starting on Wed03/08/24 at 1418, Until Wed03/10/24 at 1900, PADMA, Blood Glucose < or = 70 mg/dL and patient is NPO, unable to swallow or has mental status changes. [facility] acetaminoph en (TYLENOL) tablet 650 mg 03-08 19:17: 13 03-11 00:00 :24 No 650mg 650 mg, Oral, Q6HPRN, Starting on Wed03/08/24 at 1417, Until Wed03/10/24 at 1900, Routine, Pain (scale 1-3) [facility] Insulin Asp Prt-Insulin Aspart (NOVOLOG MIX 70-30) 100 unit/mL (70-30) injection 03-07 00:00: 00 04-21 00:00 :00 No [id number] 20U inject 20-24 Units under the skin in the morning and 20-24 Units in the evening. inject with meals. IF YOUR BG IS LESS THAN 150, TAKE HALF OF YOUR DOSE. [facility] Vitamin B-12 1,000 mcg tablet 03-06 15:38: 27 03-10 11:12 :26 No 1000ug Take 1 tablet by mouth in the morning. [facility] metroNIDAZO LE 1 % gel 02-27 00:00: 00 03-10 11:12 :26 No Apply to area(s) daily. [facility] lisinopriL 20 mg tablet 02-24 00:00: 00 Yes [id number] 20mg Take 1 tablet by mouth in the morning. [facility] furosemide 40 mg tablet 02-08 00:00: 00 04-21 00:00 :00 No [id number] Take 1 tablet by mouth every morning AND 0.5 tablets every evening. [facility] molnupiravi r 200 mg capsule 01-09 00:00: 00 Yes [id number] 800mg Take 4 capsules by mouth every 12 (twelve) hours. [facility] pantoprazol e 40 mg EC tablet 12-06 00:00: 00 Yes [id number] 40mg Take 1 tablet by mouth in the morning. [facility] apixaban (ELIQUIS) 5 mg tablet 11-30 15:47: 14 11-30 00:00 :00 No 5mg Take 1 tablet by mouth in the morning and 1 tablet in the evening. [facility] aspirin (ADULT LOW DOSE ASPIRIN) 81 mg EC tablet 11-30 15:22: 45 Yes 81mg Take 1 tablet by mouth in the morning. [facility] apixaban (ELIQUIS) 5 mg tablet 11-30 00:00: 00 Yes 5mg Take 1 tablet by mouth in the morning and 1 tablet in the evening. Indication s: PAF [facility] traMADoL 50 mg tablet 11-29 00:00: 00 Yes TAKE 1 TABLET BY MOUTH EVERY 8 HOURS NEEDED [facility] furosemide 40 mg tablet 11-04 00:00: 00 02-08 00:00 :00 No [id number] TAKE 1 TABLET BY MOUTH IN THE MORNING. PLEASE DO LABS IN ONE WEEK [facility] Insulin [facility], Disposable, (BD ULTRAFINE III MINI PEN) 31 gauge x 3/16" Ndle 10-18 00:00: 00 Yes [id number] USE DIRECTED TWICE DAILY TO INJECT INSULIN ICD-10 E11.65 [facility] Insulin Asp Prt-Insulin Aspart (NOVOLOG MIX 70-30) 100 unit/mL (70-30) injection 10-18 00:00: 00 03-07 00:00 :00 No [id number] 20U inject 20-24 Units under the skin in the morning and 20-24 Units in the evening. inject with meals. IF YOUR BG IS LESS THAN 150, TAKE HALF OF YOUR DOSE. [facility] FUROSEMIDE 40 mg tablet 10-13 00:00: 00 11-04 00:00 :00 No [id number] TAKE 1 TABLET BY MOUTH IN THE MORNING. PLEASE DO LABS IN ONE WEEK [facility] clobetasoL 0.05 % external solution 10-10 00:00: 00 Yes [id number] USE ENOUGH TO COVER TO AFFECTED AREA TWO TIMES A DAY NEEDED. [facility] Blood-Gluco se Meter Kit 10-10 00:00: 00 Yes [id number] Use as directed, once a day to monitor blood glucose for ICD code E11.9. One touch Ultra preferred [facility] blood sugar diagnostic (ONETOUCH ULTRA TEST) strip 10-10 00:00: 00 04-21 00:00 :00 No [id number] Use as directed, once a day to monitor blood glucose for ICD code E11.9 [facility] SERTraline (ZOLOFT) 25 mg tablet 10-10 00:00: 00 03-08 00:00 :00 No [id number] 25mg Take 1 tablet by mouth in the morning. [facility] KCL 10 mEq tablet 10-07 00:00: 00 02-15 00:00 :00 No [id number] 10meq TAKE 1 TABLET BY MOUTH IN THE MORNING. PLEASE DO LABS IN ONE WEEK [facility] SERTraline (ZOLOFT) 25 mg tablet 09-30 00:00: 00 10-10 00:00 :00 No [id number] 25mg Take 1 tablet by mouth in the morning. [facility] KCL 10 mEq tablet 09-14 00:00: 00 10-07 00:00 :00 No [id number] 10meq TAKE 1 TABLET BY MOUTH IN THE MORNING. PLEASE DO LABS IN ONE WEEK [facility] lisinopriL 20 mg tablet 09-12 00:00: 00 02-24 00:00 :00 No [id number] 20mg Take 1 tablet by mouth in the morning. [facility] pantoprazol e 40 mg EC tablet 09-12 00:00: 00 12-06 00:00 :00 No [id number] 40mg Take 1 tablet by mouth in the morning. [facility] aspirin (ADULT LOW DOSE ASPIRIN) 81 mg EC tablet 09-06 13:56: 18 Yes 81mg Take 1 tablet by mouth in the morning. [facility] DULoxetine 60 mg capsule 09-06 00:00: 00 09-30 00:00 :00 No [id number] 60mg Take 1 capsule by mouth in the morning. [facility] furosemide 40 mg tablet 08-31 00:00: 00 10-13 00:00 :00 No [id number] 20mg Take 0.5 tablets by mouth in the morning. Please do labs in one week [facility] clobetasoL 0.05 % external solution 08-22 00:00: 00 10-10 00:00 :00 No USE ENOUGH TO COVER TO AFFECTED AREA TWO TIMES A DAY NEEDED. [facility] aspirin (ADULT LOW DOSE ASPIRIN) 81 mg EC tablet 08-19 13:30: 14 Yes 81mg Take 1 tablet by mouth in the morning. [facility] apixaban (ELIQUIS) 5 mg tablet 08-19 00:00: 00 10-18 00:00 :00 No [id number] 5mg Take 1 tablet by mouth in the morning and 1 tablet in the evening. Indication s: atrial fibrillati on [facility] KCL 10 mEq tablet 08-19 00:00: 00 09-14 00:00 :00 No [id number] 10meq Take 1 tablet by mouth in the morning. Please do labs in one week [facility] furosemide 40 mg tablet 08-19 00:00: 00 08-31 00:00 :00 No [id number] 40mg Take 1 tablet by mouth in the morning. Please do labs in one week [facility] pantoprazol e 40 mg EC tablet 08-13 00:00: 00 Yes [id number] 40mg Take 1 tablet by mouth in the morning. [facility] Insulin Asp Prt-Insulin Aspart (NOVOLOG MIX 70-30) 100 unit/mL (70-30) injection 07-23 00:00: 00 10-18 00:00 :00 No [id number] INJECT 24 UNITS UNDER THE SKIN 2 (TWO) TIMES DAILY BEFORE BREAKFAST AND DINNER. IF YOUR BG IS LESS THAN 150, TAKE HALF OF YOUR DOSE. [facility] collagenase clostridium histo. (XIAFLEX) injection 0.58 mg 2022-06 18:30: 00 05-24 18:02 :00 No [id number] 818416 .58mg [facility] pantoprazol e 40 mg EC tablet 2022-06 00:00: 00 08-13 00:00 :00 No [id number] 40mg Take 1 tablet by mouth in the morning. [facility] metFORMIN 500 mg tablet 2022-06 11:11: 46 04-16 00:00 :00 No 1000mg Take 2 tablets by mouth in the morning and 2 tablets in the evening. Take with meals. [facility] Insulin [facility], Disposable, (BD ULTRAFINE III MINI PEN) 31 gauge x 3/16" Ndle 2022-06 00:00: 00 10-18 00:00 :00 No [id number] USE DIRECTED TWICE DAILY TO INJECT INSULIN ICD-10 E11.65 [facility] blood sugar diagnostic (ONETOUCH ULTRA TEST) strip 2022-06 00:00: 00 10-10 00:00 :00 No [id number] Use as directed, once a day to monitor blood glucose for ICD code E11.9 [facility] lisinopriL 20 mg tablet 2022-06 00:00: 00 09-11 00:00 :00 No [id number] 20mg Take 1 tablet by mouth in the morning. [facility] Insulin Asp Prt-Insulin Aspart (NOVOLOG MIX 70-30) 100 unit/mL (70-30) injection 2022-06 00:00: 00 07-23 00:00 :00 No [id number] INJECT 28 UNITS UNDER THE SKIN 2 (TWO) TIMES DAILY BEFORE BREAKFAST AND DINNER. [facility] Insulin [facility], Disposable, (BD ULTRAFINE III MINI PEN) 31 gauge x 3/16" Ndle 2022-06 0 00:00: 00 04-16 00:00 :00 No [id number] USE DIRECTED TWICE DAILY TO INJECT INSULIN ICD-10 E11.65 [facility] blood sugar diagnostic (ONETOUCH ULTRA TEST) strip 2022-06 0 00:00: 00 04-16 00:00 :00 No Use as directed, once a day to monitor blood glucose for ICD code E11.9 [facility] finasteride 5 mg tablet 2022-06 00:00: 00 03-31 00:00 :00 No [id number] 5mg Take 1 tablet by mouth in the morning. [facility] aspirin (ADULT LOW DOSE ASPIRIN) 81 mg EC tablet 03-18 09:26: 33 Yes 81mg Take 1 tablet by mouth in the morning. [facility] metFORMIN 500 mg tablet 03-18 09:26: 33 Yes 1000mg Take 2 tablets by mouth in the morning and 2 tablets in the evening. Take with meals. [facility] aspirin (ADULT LOW DOSE ASPIRIN) 81 mg EC tablet 03-10 14:12: 08 Yes 81mg Take 81 mg by mouth daily. [facility] Blood-Gluco se Meter Kit 02-15 00:00: 00 10-10 00:00 :00 No Use as directed, once a day to monitor blood glucose for ICD code E11.9 [facility] apixaban (ELIQUIS) 5 mg tablet 02-15 00:00: 00 08-19 00:00 :00 No [id number] 5mg Take 1 tablet by mouth in the morning and 1 tablet in the evening. Indication s: atrial fibrillati on [facility] blood sugar diagnostic (BLOOD GLUCOSE TEST) strip 02-15 00:00: 00 04-16 00:00 :00 No Use as directed, once a day to monitor blood glucose for ICD code E11.9 [facility] Lancets Misc 02-15 00:00: 00 04-08 00:00 :00 No Use as directed, once a day to monitor blood glucose for ICD code E11.9 [facility] HYDROcodone -acetaminop hen (NORCO 5) 5-325 mg tablet 1 tablet 02-08 21:30: 00 02-08 21:16 :00 No 1{tbl} 1 tablet, Oral, ONCE, 1 dose, On Wed02/08/23 at 1630, PADMA [facility] methylPREDN ISolone 4 mg tablets 02-08 00:00: 00 04-08 00:00 :00 No [id number] Take by mouth SEE-INSTRU CTIONS. follow package directions [facility] methocarbam oL 500 mg tablet 02-08 00:00: 00 02-14 04:59 :00 No [id number] 500mg Take 1 tablet by mouth in the morning and 1 tablet at noon and 1 tablet in the evening. Do all this for 5 days. [facility] CBD-KINGS WITH LIDOCAINE TOPICAL 01-29 16:07: 42 01-29 00:00 :00 No Apply to area(s). [facility] clopidogreL 75 mg tablet 01-29 16:07: 42 01-29 00:00 :00 No Take 1 tablet every day by oral route. [facility] gabapentin 300 mg capsule 01-29 16:07: 42 01-29 00:00 :00 No gabapentin 300 mg capsule TAKE ONE CAPSULE BY MOUTH TWICE A DAY FOR 5 DAYS,THEN 3 TIMES A DAY [facility] tamsulosin 0.4 mg 24 hr capsule 01-29 16:07: 42 01-29 00:00 :00 No Take 1 capsule every day by oral route. [facility] metFORMIN 500 mg tablet 01-29 16:07: 42 01-29 00:00 :00 No Take 1 tablet twice a day by oral route. [facility] amitriptyli ne 25 mg tablet 01-29 00:00: 00 04-08 00:00 :00 No [id number] 25mg Take 1 tablet by mouth at bedtime. [facility] ofloxacin 0.3 % otic drops 01-27 00:00: 00 04-08 00:00 :00 No 2[drp] Place 2 Drops in left ear in the morning and 2 Drops in the evening. [facility] escitalopra m oxalate 10 mg tablet 01-05 00:00: 00 09-06 00:00 :00 No [id number] 10mg Take 1 tablet by mouth in the morning. [facility] Insulin Asp Prt-Insulin Aspart (NOVOLOG MIX 70-30) 100 unit/mL (70-30) injection 01-05 00:00: 00 04-16 00:00 :00 No [id number] INJECT 28 UNITS UNDER THE SKIN 2 (TWO) TIMES DAILY BEFORE BREAKFAST AND DINNER. [facility] Insulin [facility], Disposable, (PEN NEEDLE) 32 gauge x 5/32" Ndle 01-05 00:00: 00 04-08 00:00 :00 No Use as directed twice daily to inject insulin; ICD-10 E11.65 [facility] amoxicillin -clavulanat e (AUGMENTIN) 875-125 mg per tablet 12-26 00:00: 00 01-03 04:59 :00 No [id number] 1{tbl} Take 1 tablet by mouth in the morning and 1 tablet in the evening. Do all this for 7 days. [facility] doxycycline hyclate 100 mg capsule 12-16 00:00: 00 01-29 00:00 :00 No TAKE ONE CAPSULE ONCE DAILY WITH FOOD AND WATER, DO NOT LIE DOWN FOR 1 HOUR AFTER. [facility] metFORMIN 1,000 mg tablet 12-06 00:00: 00 Yes [id number] 1000mg Take 1 tablet by mouth in the morning and 1 tablet in the evening. Take with meals. [facility] dulaglutide (TRULICITY) 0.75 mg/0.5 mL PnIj 12-04 00:00: 00 01-29 00:00 :00 No [id number] .75mg inject 1 Pen under the skin weekly. [facility] acetaminoph en (TYLENOL ARTHRITIS PAIN) 650 mg CR tablet 11-26 00:00: 00 01-29 00:00 :00 No [id number] 650mg Take 1 tablet by mouth 3 (three) times daily as needed for Pain. [facility] SITagliptin phosphate 50 mg tablet 6-08 00:00: 00 12-04 00:00 :00 No [id number] 50mg Take 1 tablet by mouth in the morning. [facility] ASCENSIA MICROFILL strip 4-05 00:00: 00 Yes [id number] USE TWICE DAILY FOR BLOOD GLUCOSE MONITORING [facility] ASCENSIA MICROFILL strip 4-05 00:00: 00 01-29 00:00 :00 No [id number] USE TWICE DAILY FOR BLOOD GLUCOSE MONITORING [facility] Insulin [facility], Disposable, (PEN NEEDLE) 32 gauge x 5/32" Ndle 30 00:00: 00 Yes [id number] Use as directed twice daily to inject insulin; ICD-10 E11.65 [facility] lisinopriL 20 mg tablet 09-17 00:00: 00 04-16 00:00 :00 No [id number] 20mg Take 1 tablet by mouth in the morning. [facility] Insulin [facility], Disposable, (PEN NEEDLE) 32 gauge x 5/32" Ndle 330 00:00: 00 01-05 00:00 :00 No [id number] Use as directed twice daily to inject insulin; ICD-10 E11.65 [facility] Insulin Asp Prt-Insulin Aspart (NOVOLOG MIX 70-30) 100 unit/mL (70-30) injection 09-17 00:00: 00 11-26 00:00 :00 No [id number] INJECT 28 UNITS UNDER THE SKIN 2 (TWO) TIMES DAILY BEFORE BREAKFAST AND DINNER. [facility] blood sugar diagnostic (ASCENSIA MICROFILL) strip 330 00:00: 00 09-23 00:00 :00 No [id number] USE TWICE DAILY FOR BLOOD GLUCOSE MONITORING [facility] lisinopriL 20 mg tablet 328 00:00: 00 09-17 00:00 :00 No [id number] 20mg Take 1 tablet by mouth in the morning. [facility] NaCl 0.9% (NS) bolus infusion 1,000 mL 07-27 17:15: 00 07-27 18:09 :00 No 1000mL at 999 mL/hr, 1,000 mL, IV Infusion, ONCE, 1 dose, On Wed07/27/22 at 1115, STAT [facility] ondansetron (ZOFRAN (PF)) injection 4 mg 07-27 16:15: 00 07-27 16:13 :00 No 4mg 4 mg, Slow IV Push, ONCE, 1 dose, [facility]07/27/22 [facility] 1015[facility] 4 mg 07-27 15:30: 00 07-27 15:32 :00 No 4mg 4 mg, Slow IV Push, ONCE, 1 dose, On Wed07/27/22 at 0930, [facility] ondansetron 4 mg disintegrat ing tablet 07-27 00:00: 00 11-26 00:00 :00 No [id number] 4mg Take 1 tablet by mouth every 8 (eight) hours as needed for Nausea and Vomiting (N/V). [facility] nirmatrelvi r-ritonavir (PAXLOVID, EUA,) 300 mg (150 mg x 2)-100 mg tablet 07-27 00:00: 00 09-17 00:00 :00 No [id number] 3{tbl} Take 3 tablets by mouth in the morning and 3 tablets in the evening. [facility] D10W 10 % IV infusion 2021-06 16:28: 11 Yes at 20-40 mL/hr, IV Infusion, TITRATE, Starting on Sheila 06/18/22 at 1028, Until Discontinu ed, Routine, CV Preprocedu re [facility] iopamidol (ISOVUE 370-500 mL) injection 2021-06 15:56: 00 06-18 16:17 :44 No ONCE INTRA PROCEDURE, Starting on Sheila 06/18/22 at 0956, Until Sheila 06/18/22 at 1017, Routine, CV Intraproce dure [facility] nitroglycer in (TRIDIL) 2 mg in 10 mL D5W for Cardiac Cath 2021-06 15:41: 29 06-18 16:17 :44 No ONCE INTRA PROCEDURE, Starting on Sheila 06/18/22 at 0941, Until Sheila 06/18/22 at 1017, Routine, CV Intraproce dure [facility] heparin 1,000 unit/mL injection 2021-06 15:41: 09 06-18 16:17 :44 No ONCE INTRA PROCEDURE, Starting on Sheila 06/18/22 at 0941, Until Sheila 06/18/22 at 1017, Routine, CV Intraproce dure [facility] lidocaine 1% (PF) (XYLOCAINE) injection 2021-06 15:34: 00 06-18 16:17 :44 No ONCE INTRA PROCEDURE, Starting on Sheila 06/18/22 at 0934, Until Sheila 06/18/22 at 1017, Routine, CV Intraproce dure [facility] midazolam (VERSED) injection 2021-06 15:22: 00 06-18 16:17 :44 No ONCE INTRA PROCEDURE, Starting on Sheila 06/18/22 at 0922, Until Sheila 06/18/22 at 1017, Routine, CV Intraproce dure [facility] FENTanyl PF (SUBLIMAZE (PF)) injection 2021-06 15:22: 00 06-18 16:17 :44 No ONCE INTRA PROCEDURE, Starting on Sheila 06/18/22 at 0922, Until Sheila 06/18/22 at 1017, Routine, CV Intraproce dure [facility] aspirin tablet 325 mg 2021-06 15:00: 00 Yes [id number] 325mg 325 mg, Oral, DAILY, First dose on Sheila 06/18/22 at 0900, Until Discontinu ed, Routine [facility] aspirin (ADULT LOW DOSE ASPIRIN) 81 mg EC tablet 2021-06 12:29: 19 Yes 81mg Take 81 mg by mouth daily. [facility] CBD-KINGS WITH LIDOCAINE TOPICAL 2021-06 12:29: 19 Yes Apply to area(s). [facility] aspirin (ADULT LOW DOSE ASPIRIN) 81 mg EC tablet 2021-06 06:26: 18 Yes 81mg Take 81 mg by mouth daily. [facility] CBD-KINGS WITH LIDOCAINE TOPICAL 2021-06 06:26: 18 Yes Apply to area(s). [facility] lisinopriL 20 mg tablet 2021-06 00:00: 00 09-15 00:00 :00 No [id number] 20mg Take 1 tablet by mouth in the morning. [facility] nystatin 100,000 unit/gram powder 2021-06 00:00: 00 01-29 00:00 :00 No [id number] Apply to area(s) 2 (two) times daily. [facility] fluconazole 150 mg tablet 2021-06 00:00: 00 06-15 05:59 :00 No [id number] 150mg Take 1 tablet by mouth every 4 (four) days for 4 doses. [facility] promethazin e-dextromet horphan 6.25-15 mg/5 mL syrup 2021-06 00:00: 00 11-26 00:00 :00 No [id number] 5mL Take 5 mL by mouth 4 (four) times daily as needed for Cough. [facility] ESCITALOPRA M OXALATE 10 mg tablet 2021-06 00:00: 00 01-05 00:00 :00 No [id number] TAKE 1 TABLET BY MOUTH EVERY DAY [facility] gentamicin injection 80 mg 2021-06 20:15: 00 03-30 19:07 :00 No [id number] 80mg [facility] GABAPENTIN 300 mg capsule 2021-06 00:00: 00 04-17 04:59 :00 No [id number] 300mg TAKE 1 CAPSULE BY MOUTH IN THE MORNING AND 1 CAPSULE AT NOON AND 1 CAPSULE IN THE EVENING. DO ALL THIS FOR 21 DAYS. [facility] Insulin Asp Prt-Insulin Aspart (NOVOLOG MIX 70-30) 100 unit/mL (70-30) injection 9-14 00:00: 00 09-17 00:00 :00 No [id number] INJECT 20 UNITS UNDER THE SKIN 2 (TWO) TIMES DAILY BEFORE BREAKFAST AND DINNER. [facility] gabapentin 300 mg capsule 8-15 00:00: 00 02-24 04:59 :00 No [id number] 300mg Take 1 capsule by mouth in the morning and 1 capsule at noon and 1 capsule in the evening. Do all this for 21 days. [facility] FINASTERIDE 5 mg tablet 01-22 00:00: 00 03-31 00:00 :00 No [id number] TAKE 1 TABLET BY MOUTH EVERY DAY [facility] blood sugar diagnostic (ASCENSIA MICROFILL) strip 01-22 00:00: 00 09-17 00:00 :00 No [id number] USE TWICE DAILY FOR BLOOD GLUCOSE MONITORING [facility] escitalopra m oxalate 10 mg tablet 01-16 00:00: 00 04-22 00:00 :00 No [id number] 20mg Take 2 tablets by mouth in the morning. [facility] clotrimazol e-betametha sone (LOTRISONE) cream 12-30 00:00: 00 01-29 00:00 :00 No [id number] Apply to area(s) 2 (two) times daily. [facility] tiZANidine 4 mg tablet 12-30 00:00: 00 11-26 00:00 :00 No [id number] 4mg Take 1 tablet by mouth 3 (three) times daily as needed for Pain (scale 4-6). [facility] lisinopriL 20 mg tablet 12-26 00:00: 00 06-18 00:00 :00 No [id number] 20mg Take 1 tablet by mouth daily. [facility] NOVOLOG MIX 70-30 100 unit/mL (70-30) injection 11-18 00:00: 00 03-04 00:00 :00 No [id number] INJECT 20 UNITS UNDER THE SKIN 2 (TWO) TIMES DAILY BEFORE BREAKFAST AND DINNER. [facility] aspirin (ADULT LOW DOSE ASPIRIN) 81 mg EC tablet 11-03 10:43: 19 Yes 81mg Take 1 tablet by mouth in the morning. [facility] CANDESARTAN 4 mg tablet 10-23 00:00: 00 12-26 00:00 :00 No [id number] 4mg TAKE 1 TABLET BY MOUTH DAILY. REPLACES LISINOPRIL . [facility] metformin ER 500 mg 24 hr tablet 10-07 00:00: 00 11-03 00:00 :00 No [id number] 500mg Take 1 tablet by mouth 2 (two) times daily with meals. [facility] fluticasone propionate 50 mcg/actuati on nasal spray 09-08 00:00: 00 12-19 00:00 :00 No [id number] 2{spray } Use 2 Sprays in each nostril daily. [facility] guaiFENesin 100 mg/5 mL solution 09-08 00:00: 00 12-19 00:00 :00 No [id number] 100mg Take 5 mL by mouth every 4 (four) hours as needed for Cough. [facility] CBD-KINGS WITH LIDOCAINE TOPICAL 08-30 19:59: 46 Yes Apply to area(s). [facility] apixaban (ELIQUIS) 5 mg tablet 08-30 00:00: 00 12-19 00:00 :00 No [id number] 5mg Take 1 tablet by mouth 2 (two) times daily for 180 days. Indication s: atrial fibrillati on [facility] FINASTERIDE 5 mg tablet 2020-06 2-14 00:00: 00 01-22 00:00 :00 No [id number] TAKE 1 TABLET BY MOUTH EVERY DAY [facility] PANTOPRAZOL E 40 mg EC tablet 2020-06 00:00: 00 04-08 00:00 :00 No [id number] TAKE 1 TABLET BY MOUTH EVERY DAY [facility] escitalopra m oxalate 10 mg tablet 2020-06-15 00:00: 00 01-16 00:00 :00 No [id number] 10mg Take 1 tablet by mouth daily. [facility] Insulin [facility], Disposable, (PEN NEEDLE) 32 gauge x 5/32" Ndle 03-10 00:00: 00 09-17 00:00 :00 No [id number] Use as directed twice daily to inject insulin; ICD-10 E11.65 [facility] blood sugar diagnostic (ASCENSIA MICROFILL) strip 03-10 00:00: 00 01-22 00:00 :00 No [id number] USE TWICE DAILY FOR BLOOD GLUCOSE MONITORING FOR ICD E11.9 [facility] insulin aspart protamine-i nsulin aspart (NOVOLOG MIX 70-30 U-100 INSULN) 100 unit/mL (70-30) injection 03-10 00:00: 00 11-18 00:00 :00 No [id number] 20U inject 20 Units under the skin 2 (two) times daily before breakfast and dinner. [facility] Immunizations Ordered Immunization Name Filled Immunization Name Date Status Comments Source Influenza High Dose Quad 2020-04-19 00:00:[address] [facility] Influenza High Dose Quad 2020-04-19 00:00:[address] [facility] Influenza High Dose Quad 2020-04-19 00:00:[address] [facility] Influenza High Dose Quad 2020-04-19 00:00:[address] [facility] Influenza High Dose Quad 2020-04-19 00:00:[address] [facility] Influenza High Dose Quad 2020-04-19 00:00:[address] [facility] Influenza High Dose Quad 2020-04-19 00:00:[address] [facility] Influenza High Dose Quad 2020-04-19 00:00:[address] [facility] Influenza High Dose Quad 2020-04-19 00:00:[address] [facility] Influenza High Dose Quad 2020-04-19 00:00:[address] [facility] Influenza High Dose Quad 2020-04-19 00:00:[address] [facility] Influenza High Dose Quad 2020-04-19 00:00:[address] [facility] Influenza High Dose Quad 2020-04-19 00:00:[address] [facility] Influenza High Dose Quad 2020-04-19 00:00:[address] [facility] Influenza High Dose Quad 2020-04-19 00:00:[address] [facility] Influenza High Dose Quad 2020-04-19 00:00:[address] [facility] Influenza High Dose Quad 2020-04-19 00:00:[address] [facility] Influenza High Dose Quad 2020-04-19 00:00:[address] [facility] Influenza High Dose Quad 2020-04-19 00:00:[address] [facility] Influenza High Dose Quad 2020-04-19 00:00:[address] [facility] Influenza High Dose Quad 2020-04-19 00:00:[address] [facility] Influenza High Dose Quad 2020-04-19 00:00:[address] [facility] Influenza High Dose Quad 2020-04-19 00:00:[address] [facility] Influenza High Dose Quad 2020-04-19 00:00:[address] [facility] Influenza High Dose Quad 2020-04-19 00:00:[address] [facility] Influenza High Dose Quad 2020-04-19 00:00:[address] [facility] Influenza High Dose Quad 2020-04-19 00:00:[address] [facility] Influenza High Dose Quad 2020-04-19 00:00:[address] [facility] Influenza High Dose Quad 2020-04-19 00:00:[address] [facility] Influenza High Dose Quad 2020-04-19 00:00:[address] [facility] Influenza High Dose Quad 2020-04-19 00:00:[address] [facility] Influenza High Dose Quad 2020-04-19 00:00:[address] [facility] Influenza High Dose Quad 2020-04-19 00:00:[address] [facility] Influenza High Dose Quad 2020-04-19 00:00:[address] [facility] Influenza High Dose Quad 2020-04-19 00:00:[address] [facility] Influenza High Dose Quad 2020-04-19 00:00:[address] [facility] Influenza High Dose Quad 2020-04-19 00:00:[address] [facility] Influenza High Dose Quad 2020-04-19 00:00:[address] [facility] Influenza High Dose Quad 2020-04-19 00:00:[address] [facility] Influenza High Dose Quad 2020-04-19 00:00:[address] [facility] Influenza High Dose Quad 2020-04-19 00:00:[address] [facility] Influenza High Dose Quad 2020-04-19 00:00:[address] [facility] Influenza High Dose Quad 2020-04-19 00:00:[address] [facility] Influenza High Dose Quad 2020-04-19 00:00:[address] [facility] Influenza High Dose Quad 2020-04-19 00:00:[address] [facility] Influenza High Dose Quad 2020-04-19 00:00:[address] [facility] Influenza High Dose Quad 2020-04-19 00:00:[address] [facility] Influenza High Dose Quad 2020-04-19 00:00:[address] [facility] Influenza High Dose Quad 2020-04-19 00:00:[address] [facility] Influenza High Dose Quad 2020-04-19 00:00:[address] [facility] Influenza High Dose Quad 2020-04-19 00:00:[address] [facility] Influenza High Dose Quad 2020-04-19 00:00:[address] [facility] Influenza High Dose Quad 2020-04-19 00:00:[address] [facility] Influenza High Dose Quad 2020-04-19 00:00:[address] [facility] Influenza High Dose 2019-04-11 00:00:[address] [facility] Influenza High Dose 2019-04-11 00:00:[address] [facility] Influenza High Dose 2019-04-11 00:00:[address] [facility] Influenza High Dose 2019-04-11 00:00:[address] [facility] Influenza High Dose 2019-04-11 00:00:[address] [facility] Influenza High Dose 2019-04-11 00:00:[address] [facility] Influenza High Dose 2019-04-11 00:00:[address] [facility] Influenza High Dose 2019-04-11 00:00:[address] [facility] Influenza High Dose 2019-04-11 00:00:[address] [facility] Influenza High Dose 2019-04-11 00:00:[address] [facility] Influenza High Dose 2019-04-11 00:00:[address] [facility] Influenza High Dose 2019-04-11 00:00:[address] [facility] Influenza High Dose 2019-04-11 00:00:[address] [facility] Influenza High Dose 2019-04-11 00:00:[address] [facility] Influenza High Dose 2019-04-11 00:00:[address] [facility] Influenza High Dose 2019-04-11 00:00:[address] [facility] Influenza High Dose 2019-04-11 00:00:[address] [facility] Influenza High Dose 2019-04-11 00:00:[address] [facility] Influenza High Dose 2019-04-11 00:00:[address] [facility] Influenza High Dose 2019-04-11 00:00:[address] [facility] Influenza High Dose 2019-04-11 00:00:[address] [facility] Influenza High Dose 2019-04-11 00:00:[address] [facility] Influenza High Dose 2019-04-11 00:00:[address] [facility] Influenza High Dose 2019-04-11 00:00:[address] [facility] Influenza High Dose 2019-04-11 00:00:[address] [facility] Influenza High Dose 2019-04-11 00:00:[address] [facility] Influenza High Dose 2019-04-11 00:00:[address] [facility] Influenza High Dose 2019-04-11 00:00:[address] [facility] Influenza High Dose 2019-04-11 00:00:[address] [facility] Influenza High Dose 2019-04-11 00:00:[address] [facility] Influenza High Dose 2019-04-11 00:00:[address] [facility] Influenza High Dose 2019-04-11 00:00:[address] [facility] Influenza High Dose 2019-04-11 00:00:[address] [facility] Influenza High Dose 2019-04-11 00:00:[address] [facility] Influenza High Dose 2019-04-11 00:00:[address] [facility] Influenza High Dose 2019-04-11 00:00:[address] [facility] Influenza High Dose 2019-04-11 00:00:[address] [facility] Influenza High Dose 2019-04-11 00:00:[address] [facility] Influenza High Dose 2019-04-11 00:00:[address] [facility] Influenza High Dose 2019-04-11 00:00:[address] [facility] Influenza High Dose 2019-04-11 00:00:[address] [facility] Influenza High Dose 2019-04-11 00:00:[address] [facility] Influenza High Dose 2019-04-11 00:00:[address] [facility] Influenza High Dose 2019-04-11 00:00:[address] [facility] Influenza High Dose 2019-04-11 00:00:[address] [facility] Influenza High Dose 2019-04-11 00:00:[address] [facility] Influenza High Dose 2019-04-11 00:00:[address] [facility] Influenza High Dose 2019-04-11 00:00:[address] [facility] Influenza High Dose 2019-04-11 00:00:[address] [facility] Influenza, High-Dose, Trivalent, PF (FLUZONE) 2019-04-11 00:00:[address] [facility] Influenza, High-Dose, Trivalent, PF (FLUZONE) 2019-04-11 00:00:[address] [facility] Influenza, High-Dose, Trivalent, PF (FLUZONE) 2019-04-11 00:00:[address] [facility] Influenza, High-Dose, Trivalent, PF (FLUZONE) 2019-04-11 00:00:[address] [facility] Influenza, High-Dose, Trivalent, PF (FLUZONE) 2019-04-11 00:00:[address] [facility] Influenza High Dose 2018-03-01 00:00:[address] [facility] Influenza High Dose 2018-03-01 00:00:[address] [facility] Influenza High Dose 2018-03-01 00:00:[address] [facility] Influenza High Dose 2018-03-01 00:00:[address] [facility] Influenza High Dose 2018-03-01 00:00:[address] [facility] Influenza High Dose 2018-03-01 00:00:[address] [facility] Influenza High Dose 2018-03-01 00:00:[address] [facility] Influenza High Dose 2018-03-01 00:00:[address] [facility] Influenza High Dose 2018-03-01 00:00:[address] [facility] Influenza High Dose 2018-03-01 00:00:[address] [facility] Influenza High Dose 2018-03-01 00:00:[address] [facility] Influenza High Dose 2018-03-01 00:00:[address] [facility] Influenza High Dose 2018-03-01 00:00:[address] [facility] Influenza High Dose 2018-03-01 00:00:[address] [facility] Influenza High Dose 2018-03-01 00:00:[address] [facility] Influenza High Dose 2018-03-01 00:00:[address] [facility] Influenza High Dose 2018-03-01 00:00:[address] [facility] Influenza High Dose 2018-03-01 00:00:[address] [facility] Influenza High Dose 2018-03-01 00:00:[address] [facility] Influenza High Dose 2018-03-01 00:00:[address] [facility] Influenza High Dose 2018-03-01 00:00:[address] [facility] Influenza High Dose 2018-03-01 00:00:[address] [facility] Influenza High Dose 2018-03-01 00:00:[address] [facility] Influenza High Dose 2018-03-01 00:00:[address] [facility] Influenza High Dose 2018-03-01 00:00:[address] [facility] Influenza High Dose 2018-03-01 00:00:[address] [facility] Influenza High Dose 2018-03-01 00:00:[address] [facility] Influenza High Dose 2018-03-01 00:00:[address] [facility] Influenza High Dose 2018-03-01 00:00:[address] [facility] Influenza High Dose 2018-03-01 00:00:[address] [facility] Influenza High Dose 2018-03-01 00:00:[address] [facility] Influenza High Dose 2018-03-01 00:00:[address] [facility] Influenza High Dose 2018-03-01 00:00:[address] [facility] Influenza High Dose 2018-03-01 00:00:[address] [facility] Influenza High Dose 2018-03-01 00:00:[address] [facility] Influenza High Dose 2018-03-01 00:00:[address] [facility] Influenza High Dose 2018-03-01 00:00:[address] [facility] Influenza High Dose 2018-03-01 00:00:[address] [facility] Influenza High Dose 2018-03-01 00:00:[address] [facility] Influenza High Dose 2018-03-01 00:00:[address] [facility] Influenza High Dose 2018-03-01 00:00:[address] [facility] Influenza High Dose 2018-03-01 00:00:[address] [facility] Influenza High Dose 2018-03-01 00:00:[address] [facility] Influenza High Dose 2018-03-01 00:00:[address] [facility] Influenza High Dose 2018-03-01 00:00:[address] [facility] Influenza High Dose 2018-03-01 00:00:[address] [facility] Influenza High Dose 2018-03-01 00:00:[address] [facility] Influenza High Dose 2018-03-01 00:00:[address] [facility] Influenza High Dose 2018-03-01 00:00:[address] [facility] Influenza, High-Dose, Trivalent, PF (FLUZONE) 2018-03-01 00:00:00 Completed Influenza, High-Dose, Trivalent, PF (FLUZONE) 2018-03-01 00:00:00 Completed Influenza, High-Dose, Trivalent, PF (FLUZONE) 2018-03-01 00:00:00 Completed Influenza, High-Dose, Trivalent, PF (FLUZONE) 2018-03-01 00:00:00 Completed Influenza, High-Dose, Trivalent, PF (FLUZONE) 2018-03-01 00:00:00 Completed Influenza Virus Vaccine 2017-03-21 00:00:[address] [facility] Influenza Virus Vaccine 2017-03-21 00:00:[address] [facility] Influenza Virus Vaccine 2017-03-21 00:00:[address] [facility] Influenza Virus Vaccine 2017-03-21 00:00:[address] [facility] Influenza Virus Vaccine 2017-03-21 00:00:[address] [facility] Influenza Virus Vaccine 2017-03-21 00:00:[address] [facility] Influenza Virus Vaccine 2017-03-21 00:00:[address] [facility] Influenza Virus Vaccine 2017-03-21 00:00:[address] [facility] Influenza Virus Vaccine 2017-03-21 00:00:[address] [facility] Influenza Virus Vaccine 2017-03-21 00:00:[address] [facility] Influenza Virus Vaccine 2017-03-21 00:00:[address] [facility] Influenza Virus Vaccine 2017-03-21 00:00:[address] [facility] Influenza Virus Vaccine 2017-03-21 00:00:[address] [facility] Influenza Virus Vaccine 2017-03-21 00:00:[address] [facility] Influenza Virus Vaccine 2017-03-21 00:00:[address] [facility] Influenza Virus Vaccine 2017-03-21 00:00:[address] [facility] Influenza Virus Vaccine 2017-03-21 00:00:[address] [facility] Influenza Virus Vaccine 2017-03-21 00:00:[address] [facility] Influenza Virus Vaccine 2017-03-21 00:00:[address] [facility] Influenza Virus Vaccine 2017-03-21 00:00:[address] [facility] Influenza Virus Vaccine 2017-03-21 00:00:[address] [facility] Influenza Virus Vaccine 2017-03-21 00:00:[address] [facility] Influenza Virus Vaccine 2017-03-21 00:00:[address] [facility] Influenza Virus Vaccine 2017-03-21 00:00:[address] [facility] Influenza Virus Vaccine 2017-03-21 00:00:[address] [facility] Influenza Virus Vaccine 2017-03-21 00:00:[address] [facility] Influenza Virus Vaccine 2017-03-21 00:00:[address] [facility] Influenza Virus Vaccine 2017-03-21 00:00:[address] [facility] Influenza Virus Vaccine 2017-03-21 00:00:[address] [facility] Influenza Virus Vaccine 2017-03-21 00:00:[address] [facility] Influenza Virus Vaccine 2017-03-21 00:00:[address] [facility] Influenza Virus Vaccine 2017-03-21 00:00:[address] [facility] Influenza Virus Vaccine 2017-03-21 00:00:[address] [facility] Influenza Virus Vaccine 2017-03-21 00:00:[address] [facility] Influenza Virus Vaccine 2017-03-21 00:00:[address] [facility] Influenza Virus Vaccine 2017-03-21 00:00:[address] [facility] Influenza Virus Vaccine 2017-03-21 00:00:[address] [facility] Influenza Virus Vaccine 2017-03-21 00:00:[address] [facility] Influenza Virus Vaccine 2017-03-21 00:00:[address] [facility] Influenza Virus Vaccine 2017-03-21 00:00:[address] [facility] Influenza Virus Vaccine 2017-03-21 00:00:[address] [facility] Influenza Virus Vaccine 2017-03-21 00:00:[address] [facility] Influenza Virus Vaccine 2017-03-21 00:00:[address] [facility] Influenza Virus Vaccine 2017-03-21 00:00:[address] [facility] Influenza Virus Vaccine 2017-03-21 00:00:[address] [facility] Influenza Virus Vaccine 2017-03-21 00:00:[address] [facility] Influenza Virus Vaccine 2017-03-21 00:00:[address] [facility] Influenza Virus Vaccine 2017-03-21 00:00:[address] [facility] Influenza Virus Vaccine 2017-03-21 00:00:[address] [facility] Influenza Virus Vaccine 2017-03-21 00:00:00 Completed Influenza Virus Vaccine 2017-03-21 00:00:00 Completed Influenza Virus Vaccine 2017-03-21 00:00:00 Completed Influenza Virus Vaccine 2017-03-21 00:00:00 Completed Influenza Virus Vaccine 2017-03-21 00:00:00 Completed TDAP 2015-10-03 00:00:[address] [facility] TDAP 2015-10-03 00:00:[address] [facility] TDAP 2015-10-03 00:00:[address] [facility] TDAP 2015-10-03 00:00:[address] [facility] TDAP 2015-10-03 00:00:[address] [facility] TDAP 2015-10-03 00:00:[address] [facility] TDAP 2015-10-03 00:00:[address] [facility] TDAP 2015-10-03 00:00:[address] [facility] TDAP 2015-10-03 00:00:[address] [facility] TDAP 2015-10-03 00:00:[address] [facility] TDAP 2015-10-03 00:00:[address] [facility] TDAP 2015-10-03 00:00:[address] [facility] TDAP 2015-10-03 00:00:[address] [facility] TDAP 2015-10-03 00:00:[address] [facility] TDAP 2015-10-03 00:00:[address] [facility] TDAP 2015-10-03 00:00:[address] [facility] TDAP 2015-10-03 00:00:[address] [facility] TDAP 2015-10-03 00:00:[address] [facility] TDAP 2015-10-03 00:00:[address] [facility] TDAP 2015-10-03 00:00:[address] [facility] TDAP 2015-10-03 00:00:[address] [facility] TDAP 2015-10-03 00:00:[address] [facility] TDAP 2015-10-03 00:00:[address] [facility] TDAP 2015-10-03 00:00:[address] [facility] TDAP 2015-10-03 00:00:[address] [facility] TDAP 2015-10-03 00:00:[address] [facility] TDAP 2015-10-03 00:00:[address] [facility] TDAP 2015-10-03 00:00:[address] [facility] TDAP 2015-10-03 00:00:[address] [facility] TDAP 2015-10-03 00:00:[address] [facility] TDAP 2015-10-03 00:00:[address] [facility] TDAP 2015-10-03 00:00:[address] [facility] TDAP 2015-10-03 00:00:[address] [facility] TDAP 2015-10-03 00:00:[address] [facility] TDAP 2015-10-03 00:00:[address] [facility] TDAP 2015-10-03 00:00:[address] [facility] TDAP 2015-10-03 00:00:[address] [facility] TDAP 2015-10-03 00:00:[address] [facility] TDAP 2015-10-03 00:00:[address] [facility] TDAP 2015-10-03 00:00:[address] [facility] TDAP 2015-10-03 00:00:[address] [facility] TDAP 2015-10-03 00:00:[address] [facility] TDAP 2015-10-03 00:00:[address] [facility] TDAP 2015-10-03 00:00:[address] [facility] TDAP 2015-10-03 00:00:[address] [facility] TDAP 2015-10-03 00:00:[address] [facility] TDAP 2015-10-03 00:00:[address] [facility] TDAP 2015-10-03 00:00:[address] [facility] TDAP 2015-10-03 00:00:[address] [facility] TDAP 2015-10-03 00:00:00 Completed TDAP 2015-10-03 00:00:00 Completed TDAP 2015-10-03 00:00:00 Completed TDAP 2015-10-03 00:00:00 Completed TDAP 2015-10-03 00:00:00 Completed Pneumococcal 13 Conjugate, PCV13 (Prevnar 13) 2012-12-07 00:00:[address] [facility] Pneumococcal 13 Conjugate, PCV13 (Prevnar 13) 2012-12-07 00:00:[address] [facility] Pneumococcal 13 Conjugate, PCV13 (Prevnar 13) 2012-12-07 00:00:[address] [facility] Pneumococcal 13 Conjugate, PCV13 (Prevnar 13) 2012-12-07 00:00:[address] [facility] Pneumococcal 13 Conjugate, PCV13 (Prevnar 13) 2012-12-07 00:00:[address] [facility] Pneumococcal 13 Conjugate, PCV13 (Prevnar 13) 2012-12-07 00:00:[address] [facility] Pneumococcal 13 Conjugate, PCV13 (Prevnar 13) 2012-12-07 00:00:[address] [facility] Pneumococcal 13 Conjugate, PCV13 (Prevnar 13) 2012-12-07 00:00:[address] [facility] Pneumococcal 13 Conjugate, PCV13 (Prevnar 13) 2012-12-07 00:00:[address] [facility] Pneumococcal 13 Conjugate, PCV13 (Prevnar 13) 2012-12-07 00:00:[address] [facility] Pneumococcal 13 Conjugate, PCV13 (Prevnar 13) 2012-12-07 00:00:[address] [facility] Pneumococcal 13 Conjugate, PCV13 (Prevnar 13) 2012-12-07 00:00:[address] [facility] Pneumococcal 13 Conjugate, PCV13 (Prevnar 13) 2012-12-07 00:00:[address] [facility] Pneumococcal 13 Conjugate, PCV13 (Prevnar 13) 2012-12-07 00:00:[address] [facility] Pneumococcal 13 Conjugate, PCV13 (Prevnar 13) 2012-12-07 00:00:[address] [facility] Pneumococcal 13 Conjugate, PCV13 (Prevnar 13) 2012-12-07 00:00:[address] [facility] Pneumococcal 13 Conjugate, PCV13 (Prevnar 13) 2012-12-07 00:00:[address] [facility] Pneumococcal 13 Conjugate, PCV13 (Prevnar 13) 2012-12-07 00:00:[address] [facility] Pneumococcal 13 Conjugate, PCV13 (Prevnar 13) 2012-12-07 00:00:[address] [facility] Pneumococcal 13 Conjugate, PCV13 (Prevnar 13) 2012-12-07 00:00:[address] [facility] Pneumococcal 13 Conjugate, PCV13 (Prevnar 13) 2012-12-07 00:00:[address] [facility] Pneumococcal 13 Conjugate, PCV13 (Prevnar 13) 2012-12-07 00:00:[address] [facility] Pneumococcal 13 Conjugate, PCV13 (Prevnar 13) 2012-12-07 00:00:[address] [facility] Pneumococcal 13 Conjugate, PCV13 (Prevnar 13) 2012-12-07 00:00:[address] [facility] Pneumococcal 13 Conjugate, PCV13 (Prevnar 13) 2012-12-07 00:00:[address] [facility] Pneumococcal 13 Conjugate, PCV13 (Prevnar 13) 2012-12-07 00:00:[address] [facility] Pneumococcal 13 Conjugate, PCV13 (Prevnar 13) 2012-12-07 00:00:[address] [facility] Pneumococcal 13 Conjugate, PCV13 (Prevnar 13) 2012-12-07 00:00:[address] [facility] Pneumococcal 13 Conjugate, PCV13 (Prevnar 13) 2012-12-07 00:00:[address] [facility] Pneumococcal 13 Conjugate, PCV13 (Prevnar 13) 2012-12-07 00:00:[address] [facility] Pneumococcal 13 Conjugate, PCV13 (Prevnar 13) 2012-12-07 00:00:[address] [facility] Pneumococcal 13 Conjugate, PCV13 (Prevnar 13) 2012-12-07 00:00:[address] [facility] Pneumococcal 13 Conjugate, PCV13 (Prevnar 13) 2012-12-07 00:00:[address] [facility] Pneumococcal 13 Conjugate, PCV13 (Prevnar 13) 2012-12-07 00:00:[address] [facility] Pneumococcal 13 Conjugate, PCV13 (Prevnar 13) 2012-12-07 00:00:[address] [facility] Pneumococcal 13 Conjugate, PCV13 (Prevnar 13) 2012-12-07 00:00:[address] [facility] Pneumococcal 13 Conjugate, PCV13 (Prevnar 13) 2012-12-07 00:00:[address] [facility] Pneumococcal 13 Conjugate, PCV13 (Prevnar 13) 2012-12-07 00:00:[address] [facility] Pneumococcal 13 Conjugate, PCV13 (Prevnar 13) 2012-12-07 00:00:[address] [facility] Pneumococcal 13 Conjugate, PCV13 (Prevnar 13) 2012-12-07 00:00:[address] [facility] Pneumococcal 13 Conjugate, PCV13 (Prevnar 13) 2012-12-07 00:00:[address] [facility] Pneumococcal 13 Conjugate, PCV13 (Prevnar 13) 2012-12-07 00:00:[address] [facility] Pneumococcal 13 Conjugate, PCV13 (Prevnar 13) 2012-12-07 00:00:[address] [facility] Pneumococcal 13 Conjugate, PCV13 (Prevnar 13) 2012-12-07 00:00:[address] [facility] Pneumococcal 13 Conjugate, PCV13 (Prevnar 13) 2012-12-07 00:00:[address] [facility] Pneumococcal 13 Conjugate, PCV13 (Prevnar 13) 2012-12-07 00:00:[address] [facility] Pneumococcal 13 Conjugate, PCV13 (Prevnar 13) 2012-12-07 00:00:[address] [facility] Pneumococcal 13 Conjugate, PCV13 (Prevnar 13) 2012-12-07 00:00:[address] [facility] Pneumococcal 13 Conjugate, PCV13 (Prevnar 13) 2012-12-07 00:00:[address] [facility] Pneumococcal 13 Conjugate, PCV13 (Prevnar 13) 2012-12-07 00:00:00 Completed Pneumococcal 13 Conjugate, PCV13 (Prevnar 13) 2012-12-07 00:00:00 Completed Pneumococcal 13 Conjugate, PCV13 (Prevnar 13) 2012-12-07 00:00:00 Completed Pneumococcal 13 Conjugate, PCV13 (Prevnar 13) 2012-12-07 00:00:00 Completed Pneumococcal 13 Conjugate, PCV13 (Prevnar 13) 2012-12-07 00:00:00 Completed Pneumococcal Polysaccharide, PPSV23 (PNEUMOVAX) 2012-07-26 00:00:[address] [facility] Pneumococcal Polysaccharide, PPSV23 (PNEUMOVAX) 2012-07-26 00:00:[address] [facility] Pneumococcal Polysaccharide, PPSV23 (PNEUMOVAX) 2012-07-26 00:00:[address] [facility] Pneumococcal Polysaccharide, PPSV23 (PNEUMOVAX) 2012-07-26 00:00:[address] [facility] Pneumococcal Polysaccharide, PPSV23 (PNEUMOVAX) 2012-07-26 00:00:[address] [facility] Pneumococcal Polysaccharide, PPSV23 (PNEUMOVAX) 2012-07-26 00:00:[address] [facility] Pneumococcal Polysaccharide, PPSV23 (PNEUMOVAX) 2012-07-26 00:00:[address] [facility] Pneumococcal Polysaccharide, PPSV23 (PNEUMOVAX) 2012-07-26 00:00:[address] [facility] Pneumococcal Polysaccharide, PPSV23 (PNEUMOVAX) 2012-07-26 00:00:[address] [facility] Pneumococcal Polysaccharide, PPSV23 (PNEUMOVAX) 2012-07-26 00:00:[address] [facility] Pneumococcal Polysaccharide, PPSV23 (PNEUMOVAX) 2012-07-26 00:00:[address] [facility] Pneumococcal Polysaccharide, PPSV23 (PNEUMOVAX) 2012-07-26 00:00:[address] [facility] Pneumococcal Polysaccharide, PPSV23 (PNEUMOVAX) 2012-07-26 00:00:[address] [facility] Pneumococcal Polysaccharide, PPSV23 (PNEUMOVAX) 2012-07-26 00:00:[address] [facility] Pneumococcal Polysaccharide, PPSV23 (PNEUMOVAX) 2012-07-26 00:00:[address] [facility] Pneumococcal Polysaccharide, PPSV23 (PNEUMOVAX) 2012-07-26 00:00:[address] [facility] Pneumococcal Polysaccharide, PPSV23 (PNEUMOVAX) 2012-07-26 00:00:[address] [facility] Pneumococcal Polysaccharide, PPSV23 (PNEUMOVAX) 2012-07-26 00:00:[address] [facility] Pneumococcal Polysaccharide, PPSV23 (PNEUMOVAX) 2012-07-26 00:00:[address] [facility] Pneumococcal Polysaccharide, PPSV23 (PNEUMOVAX) 2012-07-26 00:00:[address] [facility] Pneumococcal Polysaccharide, PPSV23 (PNEUMOVAX) 2012-07-26 00:00:[address] [facility] Pneumococcal Polysaccharide, PPSV23 (PNEUMOVAX) 2012-07-26 00:00:[address] [facility] Pneumococcal Polysaccharide, PPSV23 (PNEUMOVAX) 2012-07-26 00:00:[address] [facility] Pneumococcal Polysaccharide, PPSV23 (PNEUMOVAX) 2012-07-26 00:00:[address] [facility] Pneumococcal Polysaccharide, PPSV23 (PNEUMOVAX) 2012-07-26 00:00:[address] [facility] Pneumococcal Polysaccharide, PPSV23 (PNEUMOVAX) 2012-07-26 00:00:[address] [facility] Pneumococcal Polysaccharide, PPSV23 (PNEUMOVAX) 2012-07-26 00:00:[address] [facility] Pneumococcal Polysaccharide, PPSV23 (PNEUMOVAX) 2012-07-26 00:00:[address] [facility] Pneumococcal Polysaccharide, PPSV23 (PNEUMOVAX) 2012-07-26 00:00:[address] [facility] Pneumococcal Polysaccharide, PPSV23 (PNEUMOVAX) 2012-07-26 00:00:[address] [facility] Pneumococcal Polysaccharide, PPSV23 (PNEUMOVAX) 2012-07-26 00:00:[address] [facility] Pneumococcal Polysaccharide, PPSV23 (PNEUMOVAX) 2012-07-26 00:00:[address] [facility] Pneumococcal Polysaccharide, PPSV23 (PNEUMOVAX) 2012-07-26 00:00:[address] [facility] Pneumococcal Polysaccharide, PPSV23 (PNEUMOVAX) 2012-07-26 00:00:[address] [facility] Pneumococcal Polysaccharide, PPSV23 (PNEUMOVAX) 2012-07-26 00:00:[address] [facility] Pneumococcal Polysaccharide, PPSV23 (PNEUMOVAX) 2012-07-26 00:00:[address] [facility] Pneumococcal Polysaccharide, PPSV23 (PNEUMOVAX) 2012-07-26 00:00:[address] [facility] Pneumococcal Polysaccharide, PPSV23 (PNEUMOVAX) 2012-07-26 00:00:[address] [facility] Pneumococcal Polysaccharide, PPSV23 (PNEUMOVAX) 2012-07-26 00:00:[address] [facility] Pneumococcal Polysaccharide, PPSV23 (PNEUMOVAX) 2012-07-26 00:00:[address] [facility] Pneumococcal Polysaccharide, PPSV23 (PNEUMOVAX) 2012-07-26 00:00:[address] [facility] Pneumococcal Polysaccharide, PPSV23 (PNEUMOVAX) 2012-07-26 00:00:[address] [facility] Pneumococcal Polysaccharide, PPSV23 (PNEUMOVAX) 2012-07-26 00:00:[address] [facility] Pneumococcal Polysaccharide, PPSV23 (PNEUMOVAX) 2012-07-26 00:00:[address] [facility] Pneumococcal Polysaccharide, PPSV23 (PNEUMOVAX) 2012-07-26 00:00:[address] [facility] Pneumococcal Polysaccharide, PPSV23 (PNEUMOVAX) 2012-07-26 00:00:[address] [facility] Pneumococcal Polysaccharide, PPSV23 (PNEUMOVAX) 2012-07-26 00:00:[address] [facility] Pneumococcal Polysaccharide, PPSV23 (PNEUMOVAX) 2012-07-26 00:00:[address] [facility] Pneumococcal Polysaccharide, PPSV23 (PNEUMOVAX) 2012-07-26 00:00:[address] [facility] Pneumococcal Polysaccharide, PPSV23 (PNEUMOVAX) 2012-07-26 00:00:00 Completed Pneumococcal Polysaccharide, PPSV23 (PNEUMOVAX) 2012-07-26 00:00:00 Completed Pneumococcal Polysaccharide, PPSV23 (PNEUMOVAX) 2012-07-26 00:00:00 Completed Pneumococcal Polysaccharide, PPSV23 (PNEUMOVAX) 2012-07-26 00:00:00 Completed Pneumococcal Polysaccharide, PPSV23 (PNEUMOVAX) 2012-07-26 00:00:00 Completed Influenza High Dose Unknown Completed [facility] Influenza Virus Vaccine Unknown Completed [facility] TDAP Unknown Completed [facility] Pneumococcal Polysaccharide, PPSV23 (PNEUMOVAX) Unknown Completed [facility] Influenza High Dose Quad Unknown Completed [facility] Pneumococcal 13 Conjugate, PCV13 (Prevnar 13) Unknown Completed [facility] Influenza High Dose Unknown Completed [facility] Influenza Virus Vaccine Unknown Completed [facility] TDAP Unknown Completed [facility] Pneumococcal Polysaccharide, PPSV23 (PNEUMOVAX) Unknown Completed [facility] Influenza High Dose Quad Unknown Completed [facility] Pneumococcal 13 Conjugate, PCV13 (Prevnar 13) Unknown Completed [facility] Influenza High Dose Unknown Completed [facility] Influenza Virus Vaccine Unknown Completed [facility] TDAP Unknown Completed [facility] Pneumococcal Polysaccharide, PPSV23 (PNEUMOVAX) Unknown [facility]pleted [facility] Influenza High Dose Quad Unknown Completed [facility] Pneumococcal 13 Conjugate, PCV13 (Prevnar 13) Unknown Completed [facility] Influenza High Dose Unknown Completed [facility] Influenza Virus Vaccine Unknown Completed [facility] TDAP Unknown Completed [facility] Pneumococcal Polysaccharide, PPSV23 (PNEUMOVAX) Unknown Completed [facility] Influenza High Dose Quad Unknown Completed [facility] Pneumococcal 13 Conjugate, PCV13 (Prevnar 13) Unknown Completed [facility] Influenza High Dose Unknown Completed [facility] Influenza Virus Vaccine Unknown Completed [facility] TDAP Unknown Completed [facility] Pneumococcal Polysaccharide, PPSV23 (PNEUMOVAX) Unknown Completed [facility] Influenza High Dose Quad Unknown Completed [facility] Pneumococcal 13 Conjugate, PCV13 (Prevnar 13) Unknown Completed [facility] Influenza High Dose Unknown Completed [facility] Influenza Virus Vaccine Unknown Completed [facility] TDAP Unknown Completed [facility] Pneumococcal Polysaccharide, PPSV23 (PNEUMOVAX) Unknown Completed [facility] Influenza High Dose Quad Unknown Completed [facility] Pneumococcal 13 Conjugate, PCV13 (Prevnar 13) Unknown Completed [facility] Influenza High Dose Unknown Completed [facility] Influenza Virus Vaccine Unknown Completed [facility] TDAP Unknown Completed [facility] Pneumococcal Polysaccharide, PPSV23 (PNEUMOVAX) [facility] Unknown Completed [facility] Pneumococcal 13 Conjugate, PCV13 (Prevnar 13) Unknown Completed [facility] Influenza High Dose Unknown Completed [facility] Influenza Virus Vaccine Unknown Completed [facility] TDAP Unknown Completed [facility] Pneumococcal Polysaccharide, PPSV23 (PNEUMOVAX) Unknown Completed [facility] Influenza High Dose Quad Unknown Completed [facility] Pneumococcal 13 Conjugate, PCV13 (Prevnar 13) Unknown Completed [facility] Influenza High Dose Unknown Completed [facility] Influenza Virus Vaccine Unknown Completed [facility] TDAP Unknown Completed [facility] Pneumococcal Polysaccharide, PPSV23 (PNEUMOVAX) [facility] Influenza High Dose Quad Unknown Completed [facility] Pneumococcal 13 Conjugate, PCV13 (Prevnar 13) Unknown Completed [facility] Influenza High Dose Unknown Completed [facility] Influenza Virus Vaccine Unknown Completed [facility] TDAP Unknown Completed [facility] Pneumococcal Polysaccharide, PPSV23 (PNEUMOVAX) Unknown Completed [facility] Influenza High Dose Quad Unknown Completed [facility] Pneumococcal 13 Conjugate, PCV13 (Prevnar 13) Unknown Completed [facility] Influenza High Dose Unknown Completed [facility] Influenza Virus Vaccine Unknown Completed [facility] TDAP Unknown Completed [facility] Pneumococcal Polysaccharide, PPSV23 (PNEUMOVAX) Unknown Completed [facility] Influenza High Dose Quad Unknown Completed [facility] Pneumococcal 13 Conjugate, PCV13 (Prevnar 13) Unknown Completed [facility] Influenza High Dose Unknown Completed [facility] Influenza Virus Vaccine Unknown Completed [facility] TDAP Unknown Completed [facility] Pneumococcal Polysaccharide, PPSV23 (PNEUMOVAX) [facility] High Dose Quad Unknown Completed [facility] Pneumococcal 13 Conjugate, PCV13 (Prevnar 13) Unknown Completed [facility] Influenza High Dose Unknown Completed [facility] Influenza Virus Vaccine Unknown Completed [facility] TDAP Unknown Completed [facility] Pneumococcal Polysaccharide, PPSV23 (PNEUMOVAX) Unknown [facility] High Dose Quad Unknown Completed [facility] Pneumococcal 13 Conjugate, PCV13 (Prevnar 13) Unknown Completed [facility] Influenza Virus Vaccine Unknown Completed [facility] TDAP Unknown Completed [facility] Pneumococcal Polysaccharide, PPSV23 (PNEUMOVAX) Unknown Completed [facility] Influenza High Dose Quad Unknown Completed [facility] Pneumococcal 13 Conjugate, PCV13 (Prevnar 13) Unknown Completed [facility] Influenza High Dose Unknown Completed [facility] Influenza High Dose Unknown Completed [facility] Influenza Virus Vaccine Unknown Completed [facility] TDAP Unknown Completed [facility] Pneumococcal Polysaccharide, PPSV23 (PNEUMOVAX) Unknown Completed [facility] Influenza High Dose Quad Unknown Completed [facility] Pneumococcal 13 Conjugate, PCV13 (Prevnar 13) Unknown Completed [facility] Influenza Virus Vaccine Unknown Completed [facility] TDAP Unknown Completed [facility] Pneumococcal Polysaccharide, PPSV23 (PNEUMOVAX) Unknown Completed [facility] Influenza High Dose Quad Unknown Completed [facility] Pneumococcal 13 Conjugate, PCV13 (Prevnar 13) Unknown Completed [facility] Influenza High Dose Unknown Completed [facility] Influenza High Dose Unknown Completed [facility] Influenza Virus Vaccine Unknown Completed [facility] TDAP Unknown Completed [facility] Pneumococcal Polysaccharide, PPSV23 (PNEUMOVAX) Unknown Completed [facility] Influenza High Dose Quad Unknown Completed [facility] Pneumococcal 13 Conjugate, PCV13 (Prevnar 13) Unknown Completed [facility] Influenza High Dose Unknown Completed [facility] Influenza Virus Vaccine Unknown Completed [facility] TDAP Unknown Completed [facility] Pneumococcal Polysaccharide, PPSV23 (PNEUMOVAX) Unknown Completed [facility] Influenza High Dose Quad Unknown Completed [facility] Pneumococcal 13 Conjugate, PCV13 (Prevnar 13) Unknown Completed [facility] Influenza High Dose Unknown Completed [facility] Influenza Virus Vaccine Unknown Completed [facility] TDAP Unknown Completed [facility] Pneumococcal Polysaccharide, PPSV23 (PNEUMOVAX) Unknown Completed [facility] Influenza High Dose Quad Unknown Completed [facility] Pneumococcal 13 Conjugate, PCV13 (Prevnar 13) Unknown Completed [facility] Influenza High Dose Unknown Completed [facility] Influenza Virus Vaccine Unknown Completed [facility] TDAP Unknown Completed [facility] Pneumococcal Polysaccharide, PPSV23 (PNEUMOVAX) Unknown Completed [facility] Influenza High Dose Quad Unknown Completed [facility] Pneumococcal 13 Conjugate, PCV13 (Prevnar 13) Unknown Completed [facility] Influenza High Dose Unknown Completed [facility] Influenza Virus Vaccine Unknown Completed [facility] TDAP Unknown Completed [facility] Pneumococcal Polysaccharide, PPSV23 (PNEUMOVAX) Unknown Completed [facility] Influenza High Dose Quad Unknown Completed [facility] Pneumococcal 13 Conjugate, PCV13 (Prevnar 13) Unknown Completed [facility] Influenza High Dose Unknown Completed [facility] Influenza Virus Vaccine Unknown Completed [facility] TDAP Unknown Completed [facility] Pneumococcal Polysaccharide, PPSV23 (PNEUMOVAX) Unknown Completed [facility] Influenza High Dose Quad Unknown Completed [facility] Pneumococcal 13 Conjugate, PCV13 (Prevnar 13) Unknown Completed [facility] Influenza Virus Vaccine Unknown Completed [facility] TDAP Unknown Completed [facility] Pneumococcal Polysaccharide, PPSV23 (PNEUMOVAX) [facility] High Dose Quad Unknown Completed [facility] Pneumococcal 13 Conjugate, PCV13 (Prevnar 13) Unknown Completed [facility] Influenza High Dose Unknown Completed [facility] Influenza High Dose Unknown Completed [facility] Influenza Virus Vaccine Unknown Completed [facility] TDAP Unknown Completed [facility] Pneumococcal Polysaccharide, PPSV23 (PNEUMOVAX) Unknown Completed [facility] Influenza High Dose Quad Unknown Completed [facility] Pneumococcal 13 Conjugate, PCV13 (Prevnar 13) Unknown Completed [facility] Influenza High Dose Unknown Completed [facility] Influenza Virus Vaccine Unknown Completed [facility] TDAP Unknown Completed [facility] Pneumococcal Polysaccharide, PPSV23 (PNEUMOVAX) Unknown Completed [facility] Influenza High Dose Quad Unknown Completed [facility] Pneumococcal 13 Conjugate, PCV13 (Prevnar 13) Unknown Completed [facility] Influenza High Dose Unknown Completed [facility] Influenza Virus Vaccine Unknown Completed [facility] TDAP Unknown Completed [facility] Pneumococcal Polysaccharide, PPSV23 (PNEUMOVAX) Unknown [facility] Influenza High Dose Quad Unknown Completed [facility] Pneumococcal 13 Conjugate, PCV13 (Prevnar 13) Unknown Completed [facility] Influenza High Dose Unknown Completed [facility] Influenza Virus Vaccine Unknown Completed [facility] TDAP Unknown Completed [facility] Pneumococcal Polysaccharide, PPSV23 (PNEUMOVAX) Unknown Completed [facility] Influenza High Dose Quad Unknown Completed [facility] Pneumococcal 13 Conjugate, PCV13 (Prevnar 13) Unknown Completed [facility] Influenza Virus Vaccine Unknown Completed [facility] TDAP Unknown Completed [facility] Pneumococcal Polysaccharide, PPSV23 (PNEUMOVAX) Unknown [facility] Influenza High Dose Quad Unknown Completed [facility] Pneumococcal 13 Conjugate, PCV13 (Prevnar 13) Unknown Completed [facility] Influenza High Dose Unknown Completed [facility] Influenza High Dose Unknown Completed [facility] Influenza Virus Vaccine Unknown Completed [facility] TDAP Unknown Completed [facility] Pneumococcal Polysaccharide, PPSV23 (PNEUMOVAX) Unknown Completed [facility] Influenza High Dose Quad Unknown Completed [facility] Pneumococcal 13 Conjugate, PCV13 (Prevnar 13) Unknown Completed [facility] Influenza Virus Vaccine Unknown Completed [facility] TDAP Unknown Completed [facility] Pneumococcal Polysaccharide, PPSV23 (PNEUMOVAX) Unknown Completed [facility] Influenza High Dose Quad Unknown Completed [facility] Pneumococcal 13 Conjugate, PCV13 (Prevnar 13) Unknown Completed [facility] Influenza High Dose Unknown Completed [facility] Influenza Virus Vaccine Unknown Completed [facility] TDAP Unknown Completed [facility] Pneumococcal Polysaccharide, PPSV23 (PNEUMOVAX) Unknown Completed [facility] Influenza High Dose Quad Unknown Completed [facility] Pneumococcal 13 Conjugate, PCV13 (Prevnar 13) Unknown Completed [facility] Influenza High Dose Unknown Completed [facility] Influenza High Dose Unknown Completed [facility] Influenza Virus Vaccine Unknown Completed [facility] TDAP Unknown Completed [facility] Pneumococcal Polysaccharide, PPSV23 (PNEUMOVAX) Unknown Completed [facility] Influenza High Dose Quad Unknown Completed [facility] Pneumococcal 13 Conjugate, PCV13 (Prevnar 13) Unknown Completed [facility] Influenza High Dose Unknown Completed [facility] Influenza Virus Vaccine Unknown Completed [facility] TDAP Unknown Completed [facility] Pneumococcal Polysaccharide, PPSV23 (PNEUMOVAX) Unknown Completed [facility] Influenza High Dose Quad Unknown Completed [facility] Pneumococcal 13 Conjugate, PCV13 (Prevnar 13) Unknown Completed [facility] Influenza Virus Vaccine Unknown Completed [facility] TDAP Unknown Completed [facility] Pneumococcal Polysaccharide, PPSV23 (PNEUMOVAX) Unknown Completed [facility] Influenza High Dose Quad Unknown Completed [facility] Pneumococcal 13 Conjugate, PCV13 (Prevnar 13) Unknown Completed [facility] Influenza High Dose Unknown Completed [facility] Influenza High Dose Unknown Completed [facility] Influenza Virus Vaccine Unknown Completed [facility] TDAP Unknown Completed [facility] Pneumococcal Polysaccharide, PPSV23 (PNEUMOVAX) Unknown Completed [facility] Influenza High Dose Quad Unknown Completed [facility] Pneumococcal 13 Conjugate, PCV13 (Prevnar 13) Unknown Completed [facility] Influenza High Dose Unknown Completed [facility] Influenza Virus Vaccine Unknown Completed [facility] TDAP Unknown Completed [facility] Pneumococcal Polysaccharide, PPSV23 (PNEUMOVAX) Unknown Completed [facility] Influenza High Dose Quad Unknown Completed [facility] Pneumococcal 13 Conjugate, PCV13 (Prevnar 13) Unknown Completed [facility] Influenza High Dose Unknown Completed [facility] Influenza Virus Vaccine Unknown Completed [facility] TDAP Unknown Completed [facility] Pneumococcal Polysaccharide, PPSV23 (PNEUMOVAX) Unknown Completed [facility] Influenza High Dose Quad Unknown Completed [facility] Pneumococcal 13 Conjugate, PCV13 (Prevnar 13) Unknown Completed [facility] Influenza High Dose Unknown Completed [facility] Influenza Virus Vaccine Unknown Completed [facility] TDAP Unknown Completed [facility] Pneumococcal Polysaccharide, PPSV23 (PNEUMOVAX) Unknown Completed [facility] Influenza High Dose Quad Unknown Completed [facility] Pneumococcal 13 Conjugate, PCV13 (Prevnar 13) Unknown Completed [facility] Influenza High Dose Unknown Completed [facility] Influenza Virus Vaccine Unknown Completed [facility] TDAP Unknown Completed [facility] Pneumococcal Polysaccharide, PPSV23 (PNEUMOVAX) Unknown Completed [facility] Influenza High Dose Quad Unknown Completed [facility] Pneumococcal 13 Conjugate, PCV13 (Prevnar 13) Unknown Completed [facility] Influenza Virus Vaccine Unknown Completed [facility] TDAP Unknown Completed [facility] Pneumococcal Polysaccharide, PPSV23 (PNEUMOVAX) Unknown Completed [facility] Influenza High Dose Quad Unknown Completed [facility] Pneumococcal 13 Conjugate, PCV13 (Prevnar 13) Unknown Completed [facility] Influenza High Dose Unknown Completed [facility] Influenza High Dose Unknown Completed [facility] Influenza Virus Vaccine Unknown Completed [facility] TDAP Unknown Completed [facility] Pneumococcal Polysaccharide, PPSV23 (PNEUMOVAX) Unknown Completed [facility] Influenza High Dose Quad Unknown Completed [facility] Pneumococcal 13 Conjugate, PCV13 (Prevnar 13) Unknown Completed [facility] Influenza High Dose Unknown Completed [facility] Influenza Virus Vaccine Unknown Completed [facility] TDAP Unknown Completed [facility] Pneumococcal Polysaccharide, PPSV23 (PNEUMOVAX) Unknown Completed [facility] Influenza High Dose Quad Unknown Completed [facility] Pneumococcal 13 Conjugate, PCV13 (Prevnar 13) Unknown Completed [facility] [facility] High Dose Unknown Completed [facility] Influenza Virus Vaccine Unknown Completed [facility] TDAP Unknown Completed [facility] Pneumococcal Polysaccharide, PPSV23 (PNEUMOVAX) Unknown Completed [facility] Influenza High Dose Quad Unknown Completed [facility] Pneumococcal 13 Conjugate, PCV13 (Prevnar 13) Unknown Completed [facility] Influenza High Dose Unknown Completed [facility] Influenza Virus Vaccine Unknown Completed [facility] TDAP Unknown Completed [facility] Pneumococcal Polysaccharide, PPSV23 (PNEUMOVAX) [facility] Unknown Com[facility] Pneumococcal 13 Conjugate, PCV13 (Prevnar 13) Unknown Completed [facility] Influenza High Dose Unknown Completed [facility] Influenza Virus Vaccine Unknown Completed [facility] TDAP Unknown Completed [facility] Pneumococcal Polysaccharide, PPSV23 (PNEUMOVAX) Unknown Completed [facility] Influenza High Dose Quad Unknown Completed [facility] Pneumococcal 13 Conjugate, PCV13 (Prevnar 13) Unknown Completed [facility] Influenza High Dose Unknown Completed [facility] Influenza Virus Vaccine Unknown Completed [facility] TDAP Unknown Completed [facility] Pneumococcal Polysaccharide, PPSV23 (PNEUMOVAX) Unknown Completed [facility] Influenza High Dose Quad Unknown Completed [facility] Pneumococcal 13 Conjugate, PCV13 (Prevnar 13) Unknown Completed [facility] Influenza High Dose Unknown Completed [facility] Influenza Virus Vaccine Unknown Completed [facility] TDAP Unknown Completed [facility] Pneumococcal Polysaccharide, PPSV23 (PNEUMOVAX) [facility] Unknown Completed [facility] Pneumococcal 13 Conjugate, PCV13 (Prevnar 13) Unknown Completed [facility] Influenza High Dose Unknown Completed [facility] Influenza Virus Vaccine Unknown Completed [facility] TDAP Unknown Completed [facility] Pneumococcal Polysaccharide, PPSV23 (PNEUMOVAX) Unknown Completed [facility] Influenza High Dose Quad Unknown Completed [facility] Pneumococcal 13 Conjugate, PCV13 (Prevnar 13) Unknown Completed [facility] Influenza High Dose Unknown Completed [facility] Influenza Virus Vaccine Unknown Completed [facility] TDAP Unknown Completed [facility] Pneumococcal Polysaccharide, PPSV23 (PNEUMOVAX) Unknown Completed [facility] Influenza High Dose Quad Unknown Completed [facility] Pneumococcal 13 Conjugate, PCV13 (Prevnar 13) Unknown Completed [facility] Influenza High Dose Unknown Completed [facility] Influenza Virus Vaccine Unknown Completed [facility] TDAP Unknown Completed [facility] Pneumococcal Polysaccharide, PPSV23 (PNEUMOVAX) Unknown Completed [facility] Influenza High Dose Quad Unknown Completed [facility] Pneumococcal 13 Conjugate, PCV13 (Prevnar 13) Unknown Completed [facility] Influenza High Dose Unknown Completed [facility] Influenza Virus Vaccine Unknown Completed [facility] TDAP Unknown Completed [facility] Pneumococcal Polysaccharide, PPSV23 (PNEUMOVAX) Unknown Completed [facility] Influenza High Dose Quad Unknown Completed [facility] Pneumococcal 13 Conjugate, PCV13 (Prevnar 13) Unknown Completed [facility] Influenza High Dose Unknown Completed [facility] Influenza Virus Vaccine Unknown Completed [facility] TDAP Unknown Completed [facility] Pneumococcal Polysaccharide, PPSV23 (PNEUMOVAX) Unknown Completed [facility] Influenza High Dose Quad Unknown Completed [facility] Pneumococcal 13 Conjugate, PCV13 (Prevnar 13) Unknown Completed [facility] Influenza High Dose Unknown Completed [facility] Influenza Virus Vaccine Unknown Completed [facility] TDAP Unknown Completed [facility] Pneumococcal Polysaccharide, PPSV23 (PNEUMOVAX) Unknown Completed [facility] Influenza High Dose Quad Unknown Completed [facility] Pneumococcal 13 Conjugate, PCV13 (Prevnar 13) Unknown Completed [facility] Influenza High Dose Unknown Completed [facility] Influenza Virus Vaccine Unknown Completed [facility] TDAP Unknown Completed [facility] Pneumococcal Polysaccharide, PPSV23 (PNEUMOVAX) Unknown Completed [facility] Influenza High Dose Quad Unknown Completed [facility] Pneumococcal 13 Conjugate, PCV13 (Prevnar 13) Unknown Completed [facility] Influenza High Dose Unknown Completed [facility] Influenza Virus Vaccine Unknown Completed [facility] TDAP Unknown Completed [facility] Pneumococcal Polysaccharide, PPSV23 (PNEUMOVAX) Unknown Completed [facility] Influenza High Dose Quad Unknown Completed [facility] Pneumococcal 13 Conjugate, PCV13 (Prevnar 13) Unknown Completed [facility] Influenza High Dose Unknown Completed [facility] Influenza Virus Vaccine Unknown Completed [facility] TDAP Unknown Completed [facility] Pneumococcal Polysaccharide, PPSV23 (PNEUMOVAX) Unknown Completed [facility] Influenza High Dose Quad Unknown Completed [facility] Pneumococcal 13 Conjugate, PCV13 (Prevnar 13) Unknown Completed [facility] Influenza High Dose Unknown Completed [facility] Influenza Virus Vaccine Unknown Completed [facility] TDAP Unknown Completed [facility] Pneumococcal Polysaccharide, PPSV23 (PNEUMOVAX) Unknown Completed [facility] Influenza High Dose Quad Unknown Completed [facility] Pneumococcal 13 Conjugate, PCV13 (Prevnar 13) Unknown Completed [facility] Influenza High Dose Unknown Completed [facility] Influenza Virus Vaccine Unknown Completed [facility] TDAP Unknown Completed [facility] Pneumococcal Polysaccharide, PPSV23 (PNEUMOVAX) Unknown Completed [facility] Influenza High Dose Quad Unknown Completed [facility] Pneumococcal 13 Conjugate, PCV13 (Prevnar 13) Unknown Completed [facility] Influenza High Dose Unknown Completed [facility] Influenza Virus Vaccine Unknown Completed [facility] TDAP Unknown Completed [facility] Pneumococcal Polysaccharide, PPSV23 (PNEUMOVAX) Unknown Completed [facility] Influenza High Dose Quad Unknown Completed [facility] Pneumococcal 13 Conjugate, PCV13 (Prevnar 13) Unknown Completed [facility] Influenza High Dose Unknown Completed [facility] Influenza Virus Vaccine Unknown Completed [facility] TDAP Unknown Completed [facility] Pneumococcal Polysaccharide, PPSV23 (PNEUMOVAX) Unknown Completed [facility] Influenza High Dose Quad Unknown Completed [facility] Pneumococcal 13 Conjugate, PCV13 (Prevnar 13) Unknown Completed [facility] Influenza High Dose Unknown Completed [facility] Influenza Virus Vaccine Unknown Completed [facility] TDAP Unknown Completed [facility] Pneumococcal Polysaccharide, PPSV23 (PNEUMOVAX) Unknown Completed [facility] Influenza High Dose Quad Unknown Completed [facility] Pneumococcal 13 Conjugate, PCV13 (Prevnar 13) Unknown Completed [facility] Influenza High Dose Unknown Completed [facility] Influenza Virus Vaccine Unknown Completed [facility] TDAP Unknown Completed [facility] Pneumococcal Polysaccharide, PPSV23 (PNEUMOVAX) Unknown Completed [facility] Influenza High Dose Quad Unknown Completed [facility] Pneumococcal 13 Conjugate, PCV13 (Prevnar 13) Unknown Completed [facility] Influenza High Dose Unknown Completed [facility] Influenza Virus Vaccine Unknown Completed [facility] TDAP Unknown Completed [facility] Pneumococcal Polysaccharide, PPSV23 (PNEUMOVAX) Unknown Completed [facility] Influenza High Dose Quad Unknown Completed [facility] Pneumococcal 13 Conjugate, PCV13 (Prevnar 13) Unknown Completed [facility] Influenza High Dose Unknown Completed [facility] Influenza Virus Vaccine Unknown Completed [facility] TDAP Unknown Completed [facility] Pneumococcal Polysaccharide, PPSV23 (PNEUMOVAX) [facility]ose [facility] Unknown Completed [facility] Pneumococcal 13 Conjugate, PCV13 (Prevnar 13) Unknown Completed [facility] Influenza High Dose Unknown Completed [facility] Influenza Virus Vaccine Unknown Completed [facility] TDAP Unknown Completed [facility] Pneumococcal Polysaccharide, PPSV23 (PNEUMOVAX) Unknown Completed [facility] Influenza High Dose Quad Unknown Completed [facility] Pneumococcal 13 Conjugate, PCV13 (Prevnar 13) Unknown Completed [facility] Influenza High Dose Unknown Completed [facility] Influenza Virus Vaccine Unknown Completed [facility] TDAP Unknown Completed [facility] Pneumococcal Polysaccharide, PPSV23 (PNEUMOVAX) Unknown Completed [facility] Influenza High Dose Quad Unknown Completed [facility] Pneumococcal 13 Conjugate, PCV13 (Prevnar 13) Unknown Completed [facility] Influenza High Dose Unknown Completed [facility] Influenza Virus Vaccine Unknown Completed [facility] TDAP Unknown Completed [facility] Pneumococcal Polysaccharide, PPSV23 (PNEUMOVAX) Unknown Completed [facility] Influenza High Dose Quad Unknown Completed [facility] Pneumococcal 13 Conjugate, PCV13 (Prevnar 13) Unknown Completed [facility] Influenza, High-Dose, Trivalent, PF (FLUZONE) Unknown Completed [facility] Influenza Virus Vaccine Unknown Completed [facility] TDAP Unknown Completed [facility] Pneumococcal Polysaccharide, PPSV23 (PNEUMOVAX) Unknown Completed [facility] Influenza High Dose Quad Unknown Completed [facility] Pneumococcal 13 Conjugate, PCV13 (Prevnar 13) Unknown Completed [facility] Influenza, High-Dose, Trivalent, PF (FLUZONE) Unknown Completed [facility] Influenza Virus Vaccine Unknown Completed [facility] TDAP Unknown Completed [facility] Pneumococcal Polysaccharide, PPSV23 (PNEUMOVAX) Unknown Completed [facility] Influenza High Dose Quad Unknown Completed [facility] Pneumococcal 13 Conjugate, PCV13 (Prevnar 13) Unknown Completed [facility] Influenza, High-Dose, Trivalent, PF (FLUZONE) Unknown Completed [facility] Influenza Virus Vaccine Unknown Completed [facility] TDAP Unknown Completed [facility] Pneumococcal Polysaccharide, PPSV23 (PNEUMOVAX) Unknown Completed [facility] Influenza High Dose Quad Unknown Completed [facility] Pneumococcal 13 Conjugate, PCV13 (Prevnar 13) Unknown Completed [facility] Influenza, High-Dose, Trivalent, PF (FLUZONE) Unknown Completed [facility] Influenza Virus Vaccine Unknown Completed [facility] TDAP Unknown Completed [facility] Pneumococcal Polysaccharide, PPSV23 (PNEUMOVAX) Unknown Completed [facility] Influenza High Dose Quad Unknown Completed [facility] Pneumococcal 13 Conjugate, PCV13 (Prevnar 13) Unknown Completed [facility] Influenza, High-Dose, Trivalent, PF (FLUZONE) Unknown Completed [facility] Influenza Virus Vaccine Unknown Completed [facility] TDAP Unknown Completed [facility] Pneumococcal Polysaccharide, PPSV23 (PNEUMOVAX) Unknown Completed [facility] Influenza High Dose Quad Unknown Completed [facility] Pneumococcal 13 Conjugate, PCV13 (Prevnar 13) Unknown Completed [facility] Influenza, High-Dose, Trivalent, PF (FLUZONE) Unknown Completed [facility] Influenza Virus Vaccine Unknown Completed [facility] TDAP Unknown Completed [facility] Pneumococcal Polysaccharide, PPSV23 (PNEUMOVAX) Unknown Completed [facility] Influenza High Dose Quad Unknown Completed [facility] Pneumococcal 13 Conjugate, PCV13 (Prevnar 13) Unknown Completed [facility] Influenza, High-Dose, Trivalent, PF (FLUZONE) Unknown Completed [facility] Influenza Virus Vaccine Unknown Completed [facility] TDAP Unknown Completed [facility] Pneumococcal Polysaccharide, PPSV23 (PNEUMOVAX) Unknown Completed [facility] Influenza High Dose Quad Unknown Completed [facility] Pneumococcal 13 Conjugate, PCV13 (Prevnar 13) Unknown Completed [facility] Influenza, High-Dose, Trivalent, PF (FLUZONE) Unknown Completed [facility] Influenza Virus Vaccine Unknown Completed [facility] TDAP Unknown Completed [facility] Pneumococcal Polysaccharide, PPSV23 (PNEUMOVAX) Unknown Completed [facility] Influenza High Dose Quad Unknown Completed [facility] Pneumococcal 13 Conjugate, PCV13 (Prevnar 13) Unknown Completed [facility] Vital Signs Vital Name Observation Time Observation Value Comments S ource Systolic blood pressure 2024-05-03 18:55:00 127 mm[Hg] [facility] Diastolic blood pressure 2024-05-03 18:55:00 82 mm[Hg] [facility] Heart rate 2024-05-03 18:55:00 88 /min [facility] Body temperature 2024-05-03 18:55:[address] [facility] Body height 2024-05-03 18:55:00 177.8 cm [facility] Body weight 2024-05-03 18:55:00 84.46 kg [facility] BMI 2024-05-03 18:55:00 26.72 kg/m2 [facility] Oxygen saturation in Arterial blood by Pulse oximetry 2024-05-03 18:55:00 97 /min [facility] Systolic blood pressure 2024-04-21 15:22:00 121 mm[Hg] [facility] Diastolic blood pressure 2024-04-21 15:22:00 77 mm[Hg] [facility] Heart rate 2024-04-21 15:12:00 99 /min [facility] Respiratory rate 2024-04-21 15:12:00 18 /min [facility] Body height 2024-04-21 15:12:00 177.8 cm [facility] Body weight 2024-04-21 15:12:00 85.004 kg [facility] BMI 2024-04-21 15:12:00 26.89 kg/m2 [facility] Oxygen saturation in Arterial blood by Pulse oximetry 2024-04-21 15:12:00 99 /min [facility] Systolic blood pressure 2024-04-19 21:17:00 119 mm[Hg] [facility] Diastolic blood pressure 2024-04-19 21:17:00 83 mm[Hg] [facility] Heart rate 2024-04-19 21:17:00 112 /min [facility] Body temperature 2024-04-19 21:17:[address] [facility] Respiratory rate 2024-04-19 21:17:00 18 /min [facility] Body height 2024-04-19 21:17:00 177.8 cm [facility] Body weight 2024-04-19 21:17:00 85.004 kg [facility] BMI 2024-04-19 21:17:00 26.89 kg/m2 [facility] Oxygen saturation in Arterial blood by Pulse oximetry 2024-04-19 21:17:00 98 /min [facility] Systolic blood pressure 2024-04-05 21:53:00 133 mm[Hg] [facility] Diastolic blood pressure 2024-04-05 21:53:00 75 mm[Hg] [facility] Heart rate 2024-04-05 21:53:00 85 /min [facility] Body temperature 2024-04-05 21:53:[address] [facility] Respiratory rate 2024-04-05 21:53:00 16 /min [facility] Body height 2024-04-05 21:53:00 177.8 cm [facility] Body weight 2024-04-05 21:53:00 86.093 kg [facility] BMI 2024-04-05 21:53:00 27.23 kg/m2 [facility] Oxygen saturation in Arterial blood by Pulse oximetry 2024-04-05 21:53:00 99 /min [facility] Systolic blood pressure 2024-03-29 15:10:00 136 mm[Hg] [facility] Diastolic blood pressure 2024-03-29 15:10:00 74 mm[Hg] [facility] Heart rate 2024-03-29 15:10:00 95 /min [facility] Body temperature 2024-03-29 15:10:[address] [facility] Body height 2024-03-29 15:10:00 177.8 cm [facility] Body weight 2024-03-29 15:10:00 84.823 kg [facility] BMI 2024-03-29 15:10:00 26.83 kg/m2 [facility] Oxygen saturation in Arterial blood by Pulse oximetry 2024-03-29 15:10:00 97 /min [facility] Systolic blood pressure 2024-03-22 18:55:00 130 mm[Hg] [facility] Diastolic blood pressure 2024-03-22 18:55:00 72 mm[Hg] [facility] Heart rate 2024-03-22 18:55:00 90 /min [facility] Body temperature 2024-03-22 18:55:[address] [facility] Oxygen saturation in Arterial blood by Pulse oximetry 2024-03-22 18:55:00 96 /min [facility] Respiratory rate 2024-03-22 18:53:00 18 /min [facility] Body height 2024-03-22 18:53:00 177.8 cm [facility] Body weight 2024-03-22 18:53:00 87.091 kg [facility] BMI 2024-03-22 18:53:00 27.55 kg/m2 [facility] Systolic blood pressure 2024-03-19 07:00:00 135 mm[Hg] [facility] Diastolic blood pressure 2024-03-19 07:00:00 78 mm[Hg] [facility] Heart rate 2024-03-19 07:00:00 81 /min [facility] Body temperature 2024-03-19 07:00:[address] [facility] Respiratory rate 2024-03-19 07:00:00 16 /min [facility] Oxygen saturation in Arterial blood by Pulse oximetry 2024-03-19 07:00:00 96 /min [facility] Body height 2024-03-18 23:52:00 177.8 cm [facility] Body weight 2024-03-18 23:52:00 86.183 kg [facility] BMI 2024-03-18 23:52:00 27.26 kg/m2 [facility] Systolic blood pressure 2024-03-10 21:10:00 137 mm[Hg] [facility] Diastolic blood pressure 2024-03-10 21:10:00 84 mm[Hg] [facility] Heart rate 2024-03-10 21:10:00 97 /min [facility] Oxygen saturation in Arterial blood by Pulse oximetry 2024-03-10 21:10:00 97 /min [facility] Body temperature 2024-03-10 18:39:[address] [facility] Respiratory rate 2024-03-10 18:39:00 20 /min [facility] Body weight 2024-03-09 09:47:00 86.456 kg [facility] BMI 2024-03-09 09:47:00 27.35 kg/m2 [facility] Body height 2024-03-08 20:46:00 177.8 cm [facility] Systolic blood pressure 2024-03-10 16:55:00 103 mm[Hg] [facility] Diastolic blood pressure 2024-03-10 16:55:00 66 mm[Hg] [facility] Heart rate 2024-03-10 16:55:00 85 /min [facility] Oxygen saturation in Arterial blood by Pulse oximetry 2024-03-10 16:55:00 95 /min [facility] Body temperature 2024-03-10 16:48:[address] [facility] Respiratory rate 2024-03-10 16:48:00 16 /min [facility] Body weight 2024-03-09 09:47:00 86.456 kg [facility] BMI 2024-03-09 09:47:00 27.35 kg/m2 [facility] Body height 2024-03-08 20:46:00 177.8 cm [facility] Systolic blood pressure 2024-02-22 15:05:00 134 mm[Hg] [facility] Diastolic blood pressure 2024-02-22 15:05:00 83 mm[Hg] [facility] Heart rate 2024-02-22 15:05:00 82 /min [facility] Body temperature 2024-02-22 15:05:[address] [facility] Oxygen saturation in Arterial blood by Pulse oximetry 2024-02-22 15:05:00 97 /min [facility] Systolic blood pressure 2024-02-16 18:44:00 132 mm[Hg] [facility] Diastolic blood pressure 2024-02-16 18:44:00 82 mm[Hg] [facility] Heart rate 2024-02-16 18:44:00 76 /min [facility] Oxygen saturation in Arterial blood by Pulse oximetry 2024-02-16 18:44:00 97 /min [facility] Respiratory rate 2024-02-16 18:42:00 16 /min [facility] Body height 2024-02-16 18:42:00 177.8 cm [facility] Body weight 2024-02-16 18:42:00 87.272 kg [facility] BMI 2024-02-16 18:42:00 27.61 kg/m2 [facility] Systolic blood pressure 2024-02-11 18:53:00 126 mm[Hg] [facility] Diastolic blood pressure 2024-02-11 18:53:00 79 mm[Hg] [facility] Heart rate 2024-02-11 18:53:00 85 /min [facility] Body height 2024-02-11 18:53:00 177.8 cm [facility] Body weight 2024-02-11 18:53:00 86.637 kg [facility] BMI 2024-02-11 18:53:00 27.41 kg/m2 [facility] Oxygen saturation in Arterial blood by Pulse oximetry 2024-02-11 18:53:00 97 /min [facility] Systolic blood pressure 2024-01-11 02:23:00 139 mm[Hg] [facility] Diastolic blood pressure 2024-01-11 02:23:00 90 mm[Hg] [facility] Heart rate 2024-01-11 02:23:00 96 /min [facility] Body temperature 2024-01-11 02:23:[address] [facility] Respiratory rate 2024-01-11 02:23:00 16 /min [facility] Oxygen saturation in Arterial blood by Pulse oximetry 2024-01-11 02:23:00 99 /min [facility] Body height 2024-01-10 22:32:00 177.8 cm [facility] Body weight 2024-01-10 22:32:00 83.915 kg [facility] BMI 2024-01-10 22:32:00 26.54 kg/m2 [facility] Systolic blood pressure 2023-12-01 20:19:00 133 mm[Hg] [facility] Diastolic blood pressure 2023-12-01 20:19:00 75 mm[Hg] [facility] Heart rate 2023-12-01 20:19:00 87 /[facility] 2023-12-01 20:19:[address] [facility] Body height 2023-12-01 20:19:00 [facility] 2023-12-01 20:19:00 [facility] 2023-12-01 20:19:00 27.75 kg[facility]m2 [facility] in Arterial blood by Pulse oximetry 2023-12-01 20:19:00 96 /min [facility] Systolic blood pressure 2023-10-19 18:48:00 121 mm[Hg] [facility] Diastolic blood pressure 2023-10-19 18:48:00 78 mm[Hg] [facility] Body height 2023-10-19 18:48:00 177[facility] [facility] Body weight 2023-10-19 18:48:00 87.045 kg [facility] BMI 2023-10-19 18:48:00 27.53 kg/m2 [facility] Systolic blood pressure 2023-10-11 14:10:00 130 mm[Hg] [facility] Diastolic blood pressure 2023-10-11 14:10:00 82 mm[Hg] [facility] Heart rate 2023-10-11 14:10:00 82 /min [facility] Body height 2023-10-11 14:10:00 177.8 cm [facility] Body weight 2023-10-11 14:10:00 87.317 kg [facility] BMI 2023-10-11 14:10:00 27.62 kg/m2 [facility] Oxygen saturation in Arterial blood by Pulse oximetry 2023-10-11 14:10:00 98 /min [facility] Systolic blood pressure 2023-10-01 19:17:00 129 mm[Hg] [facility] Diastolic blood pressure 2023-10-01 19:17:00 76 mm[Hg] [facility] Heart rate 2023-10-01 19:17:00 68 /min [facility] Body height 2023-10-01 19:17:00 177.8 cm [facility] Body weight 2023-10-01 19:17:00 86.637 kg [facility] BMI 2023-10-01 19:17:00 27.41 kg/m2 [facility] Oxygen saturation in Arterial blood by Pulse oximetry 2023-10-01 19:17:00 98 /min [facility] Systolic blood pressure 2023-09-07 18:56:00 123 mm[Hg] [facility] Diastolic blood pressure 2023-09-07 18:56:00 78 mm[Hg] [facility] Heart rate 2023-09-07 18:56:00 87 /min [facility] Body height 2023-09-07 18:56:00 177.8 cm [facility] Body weight 2023-09-07 18:56:00 86.229 kg [facility] BMI 2023-09-07 18:56:00 27.28 kg/m2 [facility] Oxygen saturation in Arterial blood by Pulse oximetry 2023-09-07 18:56:00 98 /min [facility] Systolic blood pressure 2023-08-20 18:59:00 131 mm[Hg] [facility] Diastolic blood pressure 2023-08-20 18:59:00 88 mm[Hg] [facility] Heart rate 2023-08-20 18:59:00 79 /min [facility] Body temperature 2023-08-20 18:59:[address] [facility] Body height 2023-08-20 18:59:00 177.8 cm [facility] Body weight 2023-08-20 18:59:00 86.773 kg [facility] BMI 2023-08-20 18:59:00 27.45 kg/m2 [facility] Oxygen saturation in Arterial blood by Pulse oximetry 2023-08-20 18:59:00 96 /min [facility] Systolic blood pressure 2023-07-23 22:09:00 98 mm[Hg] [facility] Diastolic blood pressure 2023-07-23 22:09:00 65 mm[Hg] [facility] Heart rate 2023-07-23 22:09:00 81 /min [facility] Body height 2023-07-23 22:09:00 177.8 cm [facility] Body weight 2023-07-23 22:09:00 86.32 kg [facility] BMI 2023-07-23 22:09:00 27.31 kg/m2 [facility] Oxygen saturation in Arterial blood by Pulse oximetry 2023-07-23 22:09:00 97 /min [facility] Body temperature 2023-06-07 18:07:[address] [facility] Body weight 2023-06-07 18:07:00 86.41 kg [facility] BMI 2023-06-07 18:07:00 27.33 kg/m2 [facility] Systolic blood pressure 2023-05-26 21:04:00 135 mm[Hg] [facility] Diastolic blood pressure 2023-05-26 21:04:00 83 mm[Hg] [facility] Heart rate 2023-05-26 21:04:00 72 /min [facility] Body temperature 2023-05-26 21:04:[address] [facility] Body height 2023-05-26 21:04:00 177.8 cm [facility] Body weight 2023-05-26 21:04:00 84.823 kg [facility] BMI 2023-05-26 21:04:00 26.83 kg/m2 [facility] Body temperature 2023-05-24 17:35:[address] [facility] Body height 2023-05-24 17:35:00 177.8 cm [facility] Body weight 2023-05-24 17:35:00 85.73 kg [facility] BMI 2023-05-24 17:35:00 27.12 kg/m2 [facility] Systolic blood pressure 2023-04-21 17:59:00 136 mm[Hg] [facility] Diastolic blood pressure 2023-04-21 17:59:00 72 mm[Hg] [facility] Heart rate 2023-04-21 17:59:00 89 /min [facility] Body temperature 2023-04-21 17:59:[address] [facility] Body height 2023-04-21 17:59:00 177.8 cm [facility] Body weight 2023-04-21 17:59:00 84.823 kg [facility] BMI 2023-04-21 17:59:00 26.83 kg/m2 [facility] Systolic blood pressure 2023-04-16 15:59:00 128 mm[Hg] [facility] Diastolic blood pressure 2023-04-16 15:59:00 79 mm[Hg] [facility] Heart rate 2023-04-16 15:59:00 73 /min [facility] Respiratory rate 2023-04-16 15:59:00 18 /min [facility] Body height 2023-04-16 15:59:00 177.8 cm [facility] Body weight 2023-04-16 15:59:00 84.959 kg [facility] BMI 2023-04-16 15:59:00 26.87 kg/m2 [facility] Oxygen saturation in Arterial blood by Pulse oximetry 2023-04-16 15:59:00 99 /min [facility] Systolic blood pressure 2023-04-08 15:52:00 137 mm[Hg] [facility] Diastolic blood pressure 2023-04-08 15:52:00 83 mm[Hg] [facility] Heart rate 2023-04-08 15:52:00 91 /min [facility] Body temperature 2023-04-08 15:52:[address] [facility] Respiratory rate 2023-04-08 15:52:00 18 /min [facility] Body height 2023-04-08 15:52:00 177.8 cm [facility] Body weight 2023-04-08 15:52:00 83.915 kg [facility] BMI 2023-04-08 15:52:00 26.54 kg/m2 [facility] Oxygen saturation in Arterial blood by Pulse oximetry 2023-04-08 15:52:00 96 /min [facility] Systolic blood pressure 2023-03-31 16:05:00 129 mm[Hg] [facility] Diastolic blood pressure 2023-03-31 16:05:00 79 mm[Hg] [facility] Heart rate 2023-03-31 16:05:00 99 /min [facility] Body temperature 2023-03-31 16:05:[address] [facility] Respiratory rate 2023-03-31 16:05:00 18 /min [facility] Body height 2023-03-31 16:05:00 177.8 cm [facility] Body weight 2023-03-31 16:05:00 84.369 kg [facility] BMI 2023-03-31 16:05:00 26.69 kg/m2 [facility] Oxygen saturation in Arterial blood by Pulse oximetry 2023-03-31 16:05:00 99 /min [facility] Systolic blood pressure 2023-03-18 14:24:00 130 mm[Hg] [facility] Diastolic blood pressure 2023-03-18 14:24:00 75 mm[Hg] [facility] Heart rate 2023-03-18 14:24:00 68 /min [facility] Body temperature 2023-03-18 14:24:[address] [facility] Respiratory rate 2023-03-18 14:24:00 16 /min [facility] Body height 2023-03-18 14:24:00 177.8 cm [facility] Body weight 2023-03-18 14:24:00 83.462 kg [facility] BMI 2023-03-18 14:24:00 26.40 kg/m2 [facility] Oxygen saturation in Arterial blood by Pulse oximetry 2023-03-18 14:24:00 95 /min [facility] Systolic blood pressure 2023-03-15 16:08:00 147 mm[Hg] [facility] Diastolic blood pressure 2023-03-15 16:08:00 82 mm[Hg] [facility] Heart rate 2023-03-15 16:07:00 66 /min [facility] Body height 2023-03-15 16:07:00 177.8 cm [facility] Body weight 2023-03-15 16:07:00 87.317 kg [facility] BMI 2023-03-15 16:07:00 27.62 kg/m2 [facility] Systolic blood pressure 2023-03-10 18:53:00 136 mm[Hg] [facility] Diastolic blood pressure 2023-03-10 18:53:00 77 mm[Hg] [facility] Heart rate 2023-03-10 18:53:00 81 /min [facility] Respiratory rate 2023-03-10 18:53:00 19 /min [facility] Body height 2023-03-10 18:53:00 180.3 cm [facility] Body weight 2023-03-10 18:53:00 87.091 kg [facility] [place] BMI 2023-03-10 18:53:00 26.78 kg/m2 [facility] Oxygen saturation in Arterial blood by Pulse oximetry 2023-03-10 18:53:00 97 /min [facility] Systolic blood pressure 2023-03-10 18:53:00 136 mm[Hg] [facility] Diastolic blood pressure 2023-03-10 18:53:00 77 mm[Hg] [facility] Heart rate 2023-03-10 18:53:00 81 /min Un[facility] Respiratory rate 2023-03-10 18:53:00 19 /min [facility] Body height 2023-03-10 18:53:00 180.3 cm [facility] Body weight 2023-03-10 18:53:00 87.091 kg [facility] BMI 2023-03-10 18:53:00 26.78 kg/m2 [facility] Oxygen saturation in Arterial blood by Pulse oximetry 2023-03-10 18:53:00 97 /min [facility] Systolic blood pressure 2023-02-15 14:22:00 146 mm[Hg] [facility] Diastolic blood pressure 2023-02-15 14:22:00 77 mm[Hg] [facility] Heart rate 2023-02-15 14:22:00 79 /min [facility] Respiratory rate 2023-02-15 14:22:00 16 /min [facility] Body height 2023-02-15 14:22:00 177.8 cm [facility] Body weight 2023-02-15 14:22:00 85.049 kg [facility] BMI 2023-02-15 14:22:00 26.90 kg/m2 [facility] Oxygen saturation in Arterial blood by Pulse oximetry 2023-02-15 14:22:00 98 /min [facility] Systolic blood pressure 2023-02-08 20:42:00 142 mm[Hg] [facility] Diastolic blood pressure 2023-02-08 20:42:00 93 mm[Hg] [facility] Heart rate 2023-02-08 20:42:00 78 /min [facility] Body temperature 2023-02-08 20:42:[address] [facility] Respiratory rate 2023-02-08 20:42:00 16 /min [facility] Body height 2023-02-08 20:42:00 177.8 cm [facility] Body weight 2023-02-08 20:42:00 86.183 kg [facility] BMI 2023-02-08 20:42:00 27.26 kg/m2 [facility] Oxygen saturation in Arterial blood by Pulse oximetry 2023-02-08 20:42:00 99 /min [facility] Systolic blood pressure 2023-01-29 20:54:00 132 mm[Hg] [facility] Diastolic blood pressure 2023-01-29 20:54:00 76 mm[Hg] [facility] Heart rate 2023-01-29 20:54:00 78 /min [facility] Respiratory rate 2023-01-29 20:54:00 18 /min [facility] Body height 2023-01-29 20:54:00 177.8 cm [facility] Body weight 2023-01-29 20:54:00 86.501 kg [facility] BMI 2023-01-29 20:54:00 27.36 kg/m2 [facility] Oxygen saturation in Arterial blood by Pulse oximetry 2023-01-29 20:54:00 98 /min [facility] Systolic blood pressure 2023-01-05 18:43:00 135 mm[Hg] [facility] Diastolic blood pressure 2023-01-05 18:43:00 79 mm[Hg] [facility] Heart rate 2023-01-05 18:43:00 77 /min [facility] Body height 2023-01-05 18:43:00 177.8 cm [facility] Body weight 2023-01-05 18:43:00 85.684 kg [facility] BMI 2023-01-05 18:43:00 27.10 kg/m2 [facility] Oxygen saturation in Arterial blood by Pulse oximetry 2023-01-05 18:43:00 96 /min [facility] Systolic blood pressure 2022-12-26 16:50:00 111 mm[Hg] [facility] Diastolic blood pressure 2022-12-26 16:50:00 63 mm[Hg] [facility] Heart rate 2022-12-26 16:50:00 89 /min [facility] Body temperature 2022-12-26 16:50:[address] [facility] Respiratory rate 2022-12-26 16:50:00 17 /min [facility] Body weight 2022-12-26 16:50:00 84.687 kg [facility] BMI 2022-12-26 16:50:00 26.79 kg/m2 [facility] Oxygen saturation in Arterial blood by Pulse oximetry 2022-12-26 16:50:00 99 /min [facility] Systolic blood pressure 2022-11-26 20:06:00 137 mm[Hg] [facility] Diastolic blood pressure 2022-11-26 20:06:00 89 mm[Hg] [facility] Heart rate 2022-11-26 20:06:00 88 /min [facility] Body height 2022-11-26 20:06:00 177.8 cm [facility] Body weight 2022-11-26 20:06:00 84.777 kg [facility] BMI 2022-11-26 20:06:00 26.82 kg/m2 [facility] Oxygen saturation in Arterial blood by Pulse oximetry 2022-11-26 20:06:00 96 /min [facility] Systolic blood pressure 2022-09-17 15:58:00 129 mm[Hg] [facility] Diastolic blood pressure 2022-09-17 15:58:00 69 mm[Hg] [facility] Heart rate 2022-09-17 15:58:00 84 /min [facility] Body height 2022-09-17 15:58:00 177.8 cm [facility] Body weight 2022-09-17 15:58:00 85.186 kg [facility] BMI 2022-09-17 15:58:00 26.95 kg/m2 [facility] Oxygen saturation in Arterial blood by Pulse oximetry 2022-09-17 15:58:00 95 /min [facility] Systolic blood pressure 2022-07-27 17:40:00 120 mm[Hg] [facility] Diastolic blood pressure 2022-07-27 17:40:00 71 mm[Hg] [facility] Heart rate 2022-07-27 17:40:00 83 /min [facility] Respiratory rate 2022-07-27 17:40:00 19 /min [facility] Oxygen saturation in Arterial blood by Pulse oximetry 2022-07-27 17:40:00 97 /min [facility] Body temperature 2022-07-27 14:43:[address] [facility] Body weight 2022-07-27 14:43:00 83.915 kg [facility] BMI 2022-07-27 14:43:00 26.54 kg/m2 [facility] Systolic blood pressure 2022-06-18 17:46:00 148 mm[Hg] [facility] Diastolic blood pressure 2022-06-18 17:46:00 60 mm[Hg] [facility] Respiratory rate 2022-06-18 17:46:00 20 /min [facility] Oxygen saturation in Arterial blood by Pulse oximetry 2022-06-18 17:46:00 98 /min [facility] Body weight 2022-06-18 13:00:00 83.915 kg [facility] BMI 2022-06-18 13:00:00 26.54 kg/m2 [facility] Systolic blood pressure 2022-06-18 16:55:00 121 mm[Hg] [facility] Diastolic blood pressure 2022-06-18 16:55:00 58 mm[Hg] [facility] Respiratory rate 2022-06-18 16:55:00 16 /min [facility] Oxygen saturation in Arterial blood by Pulse oximetry 2022-06-18 16:55:00 98 /min [facility] Body weight 2022-06-18 13:00:00 83.915 kg [facility] BMI 2022-06-18 13:00:00 26.54 kg/m2 [facility] Systolic blood pressure 2022-06-01 16:58:00 126 mm[Hg] [facility] Diastolic blood pressure 2022-06-01 16:58:00 99 mm[Hg] [facility] Heart rate 2022-06-01 16:58:00 71 /min [facility] Body temperature 2022-06-01 16:58:[address] [facility] Respiratory rate 2022-06-01 16:58:00 20 /min [facility] Body weight 2022-06-01 16:58:00 83.915 kg [facility] BMI 2022-06-01 16:58:00 26.54 kg/m2 [facility] Oxygen saturation in Arterial blood by Pulse oximetry 2022-06-01 16:58:00 99 /min [facility] Systolic blood pressure 2022-05-19 22:18:00 129 mm[Hg] [facility] Diastolic blood pressure 2022-05-19 22:18:00 74 mm[Hg] [facility] Heart rate 2022-05-19 22:18:00 76 /min [facility] Body temperature 2022-05-19 22:18:[address] [facility] Respiratory rate 2022-05-19 22:18:00 18 /min [facility] Body height 2022-05-19 22:18:00 177.8 cm [facility] Body weight 2022-05-19 22:18:00 84.732 kg [facility] BMI 2022-05-19 22:18:00 26.80 kg/m2 [facility] Oxygen saturation in Arterial blood by Pulse oximetry 2022-05-19 22:18:00 98 /min [facility] Systolic blood pressure 2022-03-30 18:13:00 135 mm[Hg] [facility] Diastolic blood pressure 2022-03-30 18:13:00 67 mm[Hg] [facility] Heart rate 2022-03-30 18:11:00 66 /min [facility] Body temperature 2022-03-30 18:11:[address] [facility] Respiratory rate 2022-03-30 18:11:00 18 /min [facility] Body height 2022-03-30 18:11:00 177.8 cm [facility] Body weight 2022-03-30 18:11:00 86.818 kg [facility] [place] BMI 2022-03-30 18:11:00 27.46 kg/m2 [facility] Oxygen saturation in Arterial blood by Pulse oximetry 2022-03-30 18:11:00 98 /min [facility] Body weight 2022-03-18 15:50:00 86.682 kg [facility] BMI 2022-03-18 15:50:00 27.42 kg/m2 [facility] Body weight 2022-02-25 19:14:00 85.276 kg [facility] BMI 2022-02-25 19:14:00 26.98 kg/m2 [facility] Systolic blood pressure 2022-02-02 13:30:00 132 mm[Hg] [facility] Diastolic blood pressure 2022-02-02 13:30:00 80 mm[Hg] [facility] Heart rate 2022-02-02 13:30:00 60 /min [facility] Respiratory rate 2022-02-02 13:30:00 16 /min [facility] Body height 2022-02-02 13:30:00 177.8 cm [facility] Body weight 2022-02-02 13:30:00 85.73 kg [facility] BMI 2022-02-02 13:30:00 27.12 kg/m2 [facility] Oxygen saturation in Arterial blood by Pulse oximetry 2022-02-02 13:30:00 99 /min [facility] Systolic blood pressure 2021-10-29 21:34:00 139 mm[Hg] [facility] Diastolic blood pressure 2021-10-29 21:34:00 76 mm[Hg] [facility] Heart rate 2021-10-29 21:34:00 66 /min [facility] Respiratory rate 2021-10-29 21:34:00 18 /min [facility] Body height 2021-10-29 21:34:00 177.8 cm [facility] Body weight 2021-10-29 21:34:00 86.909 kg [facility] BMI 2021-10-29 21:34:00 27.49 kg/m2 [facility] Oxygen saturation in Arterial blood by Pulse oximetry 2021-10-29 21:34:00 98 /min [facility] Procedures Procedure Date / Time Performed Performing Clinician Source URINE CULTURE 2024-05-03 22:41:00 Franklyn Bañuelos [facility] SAVANA,POST-VOID RES,US,NON-IMAGING 2024-05-03 19:09:00 Sarmad [facility] POCT URINALYSIS AUTO 2024-05-03 19:08:00 Sarmad [facility] SAVANA,POST-VOID RES,US,NON-IMAGING 2024-04-19 00:00:00 Sarmad [facility] POCT URINALYSIS AUTO 2024-04-19 00:00:00 Sarmad [facility] POCT URINALYSIS AUTO 2024-04-05 21:53:00 Sarmad [facility] URINE CULTURE 2024-04-04 16:58:00 Franlkyn Bañuelos [facility] SAVANA,POST-VOID RES,US,NON-IMAGING 2024-03-29 15:18:00 Sarmad [facility] POCT URINALYSIS AUTO 2024-03-29 00:00:00 Clemencia Bañuelos [facility] SAVANA,POST-VOID RES,US,NON-IMAGING 2024-03-22 19:09:00 Sarmad [facility] POCT URINALYSIS AUTO 2024-03-22 18:39:[address] [facility] [address] ABDOMEN PELVIS W CONTRAST 2024-03-19 03:17:[address] [facility] BASIC METABOLIC PANEL (NA, K, CL, CO2, GLUCOSE, BUN, CREATININE, CA) 2024-03-19 00:42:[address] [facility] CBC WITH DIFF 2024-03-19 00:42:00 Sweta Cooley [facility] URINALYSIS 2024-03-19 00:42:00 Sweta Cooley [facility] POCT GLUCOSE (AUTOMATED) 2024-03-10 17:15:00 Francine Tracey [facility] POCT GLUCOSE (AUTOMATED) 2024-03-10 17:15:[address] [facility] URINE CULTURE 2024-03-10 15:41:00 Sarmad Franklyn [facility] [id number] - CO LASER ENUCLEATION PROSTATE W/MORCELLATION 2024-03-10 14:49:00 Sarmad [facility] POCT GLUCOSE (AUTOMATED) 2024-03-10 12:48:00 Francine Tracey [facility] POCT GLUCOSE (AUTOMATED) 2024-03-10 12:48:[address] [facility] BASIC METABOLIC PANEL (NA, K, CL, CO2, GLUCOSE, BUN, CREATININE, CA) 2024-03-10 08:25:[address] [facility] VANCOMYCIN TROUGH 2024-03-10 08:25:00 Darron Ellis [facility] BASIC METABOLIC PANEL (NA, K, CL, CO2, GLUCOSE, BUN, CREATININE, CA) 2024-03-10 08:25:[address] [facility] VANCOMYCIN TROUGH 2024-03-10 08:25:00 Darron Ellis [facility] POCT GLUCOSE (AUTOMATED) 2024-03-10 01:07:[address] [facility] POCT GLUCOSE (AUTOMATED) 2024-03-10 01:07:[address] [facility] POCT GLUCOSE (AUTOMATED) 2024-03-09 21:49:[address] [facility] POCT GLUCOSE (AUTOMATED) 2024-03-09 21:49:[address] [facility] POCT GLUCOSE (AUTOMATED) 2024-03-09 16:45:[address] [facility] POCT GLUCOSE (AUTOMATED) 2024-03-09 16:45:00 Francine Tracey [facility] POCT GLUCOSE (AUTOMATED) 2024-03-09 13:37:00 Francine Tracey [facility] POCT GLUCOSE (AUTOMATED) 2024-03-09 13:37:00 Francine Tracey [facility] POCT GLUCOSE (AUTOMATED) 2024-03-09 12:50:00 Francine Tracey [facility] POCT GLUCOSE (AUTOMATED) 2024-03-09 12:50:00 Francine Tracey [facility] MAGNESIUM 2024-03-09 09:08:00 Nora Tracey [facility] BASIC METABOLIC PANEL (NA, K, CL, CO2, GLUCOSE, BUN, CREATININE, CA) 2024-03-09 09:08:00 [facility] CBC WITH DIFF 2024-03-09 09:08:00 Nora Tracey [facility] MAGNESIUM 2024-03-09 09:08:00 Nora Tracey [facility] BASIC METABOLIC PANEL (NA, K, CL, CO2, GLUCOSE, BUN, CREATININE, CA) 2024-03-09 09:08:[address] [facility] CBC WITH DIFF 2024-03-09 09:08:00 Nora Tracey [facility] POCT GLUCOSE (AUTOMATED) 2024-03-09 02:28:00 Francine Tracey [facility] POCT GLUCOSE (AUTOMATED) 2024-03-09 02:28:00 Francine Tracey [facility] POCT GLUCOSE (AUTOMATED) 2024-03-08 21:28:00 Francine Tracey [facility] POCT GLUCOSE (AUTOMATED) 2024-03-08 21:28:00 Francine Tracey [facility] BASIC METABOLIC PANEL (NA, K, CL, CO2, GLUCOSE, BUN, CREATININE, CA) 2024-03-08 20:11:00 [facility] CBC WITH DIFF 2024-03-08 20:11:00 Nora Tracey [facility] GLYCOSYLATED HEMOGLOBIN (A1C) 2024-03-08 20:11:00 [facility] BASIC METABOLIC PANEL (NA, K, CL, CO2, GLUCOSE, BUN, CREATININE, CA) 2024-03-08 20:11:[address] [facility] CBC WITH DIFF 2024-03-08 20:11:00 Nora Tracey [facility] GLYCOSYLATED HEMOGLOBIN (A1C) 2024-03-08 20:11:[address] [facility] COMP. METABOLIC PANEL ([id number]) 2024-02-22 16:39:[address]lyn [address]ñuelos [facility] CBC WITH DIFF 2024-02-22 16:39:00 Franklyn Bañuelos [facility] HB ABO GROUPING 2024-02-22 16:39:00 Franklyn Bañuelos [facility] POCT URINALYSIS AUTO 2024-02-22 15:14:00 Clemencia Bañuelos [facility] SAVANA,POST-VOID RES,US,NON-IMAGING 2024-02-22 00:00:00 Franklyn [address]os [facility] INFLUENZA A/B RSV COVID NAAT 2024-01-11 00:04:[address] [facility] URINALYSIS 2024-01-10 23:33:00 Kaitlin Wyatt [facility] LACTIC ACID WHOLE BLOOD 2024-01-10 23:09:[address] [facility] TROPONIN I 2024-01-10 23:08:00 Kaitlin Wyatt [facility] COMP. METABOLIC PANEL (38700) 2024-01-10 23:08:[address] [facility] CBC WITH DIFF 2024-01-10 23:08:00 Kaitlin Wyatt [facility] POCT HEMOGLOBIN A1C TEST 2023-10-19 18:59:[address] [facility] TRANSTHORACIC ECHO (TTE) COMPLETE 2023-08-19 22:20:[address] [facility] BASIC METABOLIC PANEL (NA, K, CL, CO2, GLUCOSE, BUN, CREATININE, CA) 2023-08-19 20:37:[address] [facility] LIPID PANEL (23676)(TOTAL CHOLESTEROL, TRIGLYCERIDES, HDL) 2023-08-19 20:37:[address] [facility] N-TERMINAL PRO-BNP 2023-08-19 20:37:[address] [facility] POCT HEMOGLOBIN A1C TEST 2023-07-23 22:11:[address] [facility] PATIENT AGREEMENTS AND CONTRACTS 2023-04-21 05:01:00 Doctor Unassigned, [place] [facility] POCT URINALYSIS AUTO 2023-03-31 00:00:[address] [facility] XR HAND 3+ VW LEFT 2023-03-18 14:38:[address] [facility] POCT HEMOGLOBIN A1C TEST 2023-03-15 16:12:[address] [facility] EKG-12 LEAD 2023-03-10 19:03:15 Doctor Unass igned, [place] [facility] EXTERNAL PROVIDER RECORDS 2023-03-01 05:01:00 Do ctor Unassigned, [place] [facility] ASSIGNMENT OF BENEFITS 2023-02-08 21:46:25 Docto r Unassigned, [place] [facility] URINALYSIS 2023-02-08 21:15:00 Alcon Oliva [facility] COMP. METABOLIC PANEL ([id number]) 2023-02-08 21:05:[address] [facility] CBC WITH DIFF 2023-02-08 21:05:00 OlivaAlcon rodriguez [facility] CONSENT/REFUSAL FOR DIAGNOSIS AND TREATMENT 2023-02-08 20:36:35 Doctor Unassigned, [place] [facility] DME/SUPPLY JUSTIFICATION 2023-02-04 05:01:00 Doc tor Unassigned, [place] [facility] POCT HEMOGLOBIN A1C TEST 2023-01-29 21:21:[address] [facility] AUTHORIZATION FOR RELEASE OF PHI 2022-12-10 05:01:00 Doctor Unassigned, [place] [facility] COMP. METABOLIC PANEL ([id number]) 2022-12-04 17:04:[address] [facility] PROSTATIC SPECIFIC ANTIGEN 2022-12-04 17:04:00 Franklyn Bañuelos [facility] GLYCOSYLATED HEMOGLOBIN (A1C) 2022-12-04 17:04:[address] [facility] URINE CULTURE 2022-12-04 17:04:00 [facility] AUTHORIZATION FOR RELEASE OF PHI 2022-10-23 05:01:00 Doctor Unassigned, [place] [facility] COMP. METABOLIC PANEL ([id number]) 2022-09-18 15:14:[address] [facility] CBC WITH DIFF 2022-09-18 15:14:00 [facility] ASSIGNMENT OF BENEFITS 2022-09-17 15:40:48 Docto r Unassigned, [place] [facility] EXTERNAL PROVIDER RECORDS 2022-08-05 06:01:00 Do ctor Unassigned, [place] [facility] XR CHEST 1 VW 2022-07-27 16:06:27 [facility] COMP. METABOLIC PANEL ([id number]) 2022-07-27 15:23:[address] [facility] CBC WITH DIFF 2022-07-27 15:23:00 [facility] RAPID INFLUENZA A/B 2022-07-27 15:23:[address] [facility] COVID-19 (ID NOW RAPID TESTING) 2022-07-27 15:23:[address] [facility] CONSENT/REFUSAL FOR DIAGNOSIS AND TREATMENT 2022-07-27 14:40:28 Doctor Unassigned, [place] [facility] CARDIAC CATHETERIZATION 2022-06-18 15:56:36 Se faiza Hua [facility] CARDIAC CATHETERIZATION 2022-06-18 15:56:36 Se faiza Hua [facility] CARDIAC CATHETERIZATION 2022-06-18 15:56:[address] [facility] CARDIAC CATHETERIZATION 2022-06-18 15:56:[address] [facility] OUTPATIENT CARDIAC CATHETERIZATION DOCUMENTS 2022-06-18 06:01:00 Doctor Unassigned, [place] [facility] CONSENT/REFUSAL FOR DIAGNOSIS AND TREATMENT 2022-06-01 16:39:57 Doctor Unassigned, [place] [facility] POCT SARS-COV-2 ANTIGEN (BINAX NOW) 2022-05-19 22:24:[address] [facility] EXTERNAL PROVIDER RECORDS 2022-04-08 05:01:00 Do ctor Unassigned, [place] [facility] POCT URINALYSIS AUTO 2022-03-30 18:15:00 Clemencia Bañuelos [facility] DISCLOSURE AND CONSENT, MEDICAL AND SURGICAL PROCEDURES 2022-03-30 05:01:00 Doctor Unassigned, [place] [facility] POCT URINALYSIS AUTO 2022-02-02 13:33:00 Clemencia Bañuelos [facility] HB ECG ROUTINE & RHYTHM STRIP 2021-10-29 21:44:[address] [facility] Encounters Start Date/Time End Date/Time Encounter Type Admission Type Attending Clinicians Care Facility Care Department Encounter ID Source 2024-02-23 15:33:36 Outpatient FRANKLYN MAS[place] [id number] [facility] 2022-10-13 11:41:41 Outpatient R FRANKLYN BAÑUELOS [facility] SUU [id number] [facility] 2021-11-24 16:22:05 Outpatient R KAMRAN HUA [facility] CCA [id number] [facility] 2021-04-20 22:34:37 Outpatient RITA WHITT [facility] DARIELA [id number] [facility] 2021-04-20 20:43:42 Emergency [facility] [id number] [facility] 2024-05-31 15:00:00 2024-05-31 15:00:00 [facility] [id number] [facility] 2024-05-11 00:00:00 2024-05-11 13:28:[address] 1.2.840.114 350.1.13.10 4.2.7.2.686 [id number] [facility] 2024-05-03 15:00:00 2024-05-03 15:00:00 Outpatient R ISELAMARGA [facility] [id number] [facility] 2024-05-03 13:00:00 2024-05-03 13:46:13 Outpatient R ISELAMARGA [facility] [id number] [facility] 2024-05-03 13:00:00 2024-05-03 13:46:13 Office Visit Sarmad [facility] 1.2.840.114 350.1.13.10 4.2.7.2.686 [id number] [facility] 2024-04-27 00:00:00 2024-04-28 09:07:06 Telephone Sarmad [facility] 1.2.840.114 350.1.13.10 4.2.7.2.686 [id number] [facility] 2024-04-25 00:00:00 2024-04-25 13:56:09 [facility] 1.2.840.114 350.1.13.10 4.2.7.2.686 [id number] [facility] 2024-04-21 10:30:00 2024-04-21 11:11:32 Outpatient R KIMBERLEY YAO [facility] [id number] [facility] 2024-04-21 10:30:00 2024-04-21 11:11:32 Office Visit Kimberley Yao [facility]?MARJORI[facility]yn [facility] 1.2.840.114 350.1.13.10 4.2.7.2.686 [id number] [facility] 2024-04-19 16:30:00 2024-04-19 16:32:16 Outpatient R FRANKLYN BAÑUELOS [facility] [id number] [facility] 2024-04-19 16:30:00 2024-04-19 16:32:16 Office Visit Sarmad [facility] BUILDING 1.2.840.114 350.1.13.10 4.2.7.2.686 [id number] [facility] 2024-04-04 00:00:00 2024-04-14 13:09:[address] [facility] NAL BUILDING 1.2.840.114 350.1.13.10 4.2.7.2.686 [id number] [facility] 2024-04-05 16:30:00 2024-04-05 17:10:02 Outpatient R SARMAD FRANKLYN [facility] [id number] [facility] 2024-04-05 16:30:00 2024-04-05 17:10:02 Office Visit Sarmad [facility] BUILDING 1.2.840.114 350.1.13.10 4.2.7.2.686 [id number] [facility] 2024-04-04 11:45:00 2024-04-04 11:56:06 Outpatient R [facility] [id number] [facility] 2024-04-04 11:45:00 2024-04-04 11:56:06 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, Ang - Franklyn Tamayo Lab, Ang - Shawn [facility]?MARJORIECyn [facility] 1.2.840.114 350.1.13.10 4.2.7.2.686 [id number] [facility] 2024-04-03 00:00:00 2024-04-03 16:38:[address] [facility] NAL BUILDING 1.2840.114 350.1.13.10 4.2.7.2.686 [id number] 204 [id number] [facility] 2024-03-27 00:00:00 2024-04-03 11:01:16 Telephone Sarmad [facility] BUILDING 1.2840.114 350.1.13.10 4.2.7.2.686 [id number] [facility] 2024-03-31 11:30:00 2024-03-31 11:30:00 Outpatient R BEBE PAINTING [facility] [id number] [facility] 2024-03-29 10:30:00 2024-03-29 10:56:25 Outpatient R SARMAD [facility] [id number] [facility] 2024-03-29 10:30:00 2024-03-29 10:56:25 Office Visit Sarmad [facility] 1.2840.114 350.1.13.10 4.2.7.2.686 [id number] [facility] 2024-03-28 00:00:00 2024-03-28 11:36:25 Patient Outreach Jessica Cortez Laura L [facility] 1.2.840.114 350.1.13.10 4.2.7.2.686 [id number] [facility] 2024-03-22 14:00:00 2024-03-22 15:33:14 Outpatient R SARMAD [facility] [id number] [facility] 2024-03-22 14:00:00 2024-03-22 15:33:14 Office Visit Franklyn Bañuelos [facility] PROFESSIO [facility] BUILDING 1..840.114 350.1.13.10 4.2.7.2.686 [id number] [facility] 2024-03-21 00:00:00 2024-03-21 15:49:58 Telephone Loren Baez Kristi L [facility] 1.840.114 350.1.13.10 4.2.7.2.686 [id number] [facility] 2024-03-20 00:00:00 2024-03-20 15:02:02 Patient Outreach Jessica Cortez Laura L [facility] 1.840.114 350.1.13.10 4.2.7.2.686 [id number] 403 [id number] [facility] 2024-03-18 18:57:00 2024-03-19 02:40:00 Emergency X SWETA COOLEY WAKILI [facility] ERT [id number] [facility] 2024-03-18 18:57:00 2024-03-19 02:40:00 Emergency Sweta Cooley [facility] .840.114 350.1.13.10 4.2.7.2.686 [id number] [facility] 2024-03-14 14:00:00 2024-03-14 16:22:10 Outpatient R FRANKLYN BAÑUELOS [facility] [id number] [facility] 2024-03-14 14:00:00 2024-03-14 16:22:10 Nurse Visit Nurse, Adc Surgery Franklyn Bañuelos [facility], Ad[facility] 1.2.840.114 350.1.13.10 4.2.7.2.686 [id number] 204 [id number] [facility] 2024-03-13 00:00:00 2024-03-14 13:54:39 Telephone Franklyn Bañuelos [facility] 1.2.840.114 350.1.13.10 4.2.7.2.686 [id number] [facility] 2024-03-06 00:00:00 2024-03-13 17:26:05 Telephone Sarmad [facility] 1.2.840.114 350.1.13.10 4.2.7.2.686 [id number] 204 [id number] [facility] 2024-03-13 00:00:00 2024-03-13 17:06:40 Transition of Care Km Newton Michele A SHEARN [facility] 1.2.840.114 350.1.13.10 4.2.7.2.686 [id number] 403 [id number] [facility] 2024-03-13 10:00:00 2024-03-13 11:28:28 Outpatient R FRANKLYN BAÑUELOS [facility] [id number] [facility] 2024-03-13 10:00:00 2024-03-13 11:00:00 Nurse Visit Nurse, Adc Surgery Franklyn Bañuelos Nurse, Adc Surgery [facility] 1.2.840.114 350.1.13.10 4.2.7.2.686 [id number] [facility] 2024-03-08 13:39:00 2024-03-10 17:00:00 Inpatient U NORA TRACEY [facility] [id number] [facility] 2024-03-08 13:39:00 2024-03-10 17:00:00 Hospital Encounter Nora Tracey [facility] 1.2.840.114 350.1.13.10 4.2.7.2.686 [id number] [facility] 2024-03-10 09:58:00 2024-03-10 11:55:00 Surgery Franklyn Bañuelos [facility] 1.2.840.114 350.1.13.10 4.2.7.2.686 [id number] [facility] 2024-03-08 00:00:00 2024-03-08 11:15:31 Telephone Franklyn Bañuelos [facility] 1.2.840.114 350.1.13.10 4.2.7.2.686 [id number] [facility] 2024-03-07 00:00:00 2024-03-07 14:44:06 Refill Kimberley Yao [facility] OFF[facility] BUILDING 1.2840.114 350.1.13.10 4.2.7.2.686 [id number] [facility] 2024-03-06 11:45:00 2024-03-06 11:45:00 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, Evelin Doan Lab, Lane Escobar [facility] OFF[facility] BUILDING 1.2840.114 350.1.13.10 4.2.7.2.686 [id number] [facility] 2024-03-06 11:45:00 2024-03-06 11:33:46 Outpatient R EVELIN COLMENARES [facility] [id number] [facility] 2024-02-25 00:00:00 2024-02-25 12:24:48 Refill Evelin Colmenares [facility] 1.2.840.114 350.1.13.10 4.2.7.2.686 [id number] [facility] 2024-02-22 11:45:00 2024-02-22 11:45:00 Dental Sales Representative Visit 2, Adc Lab Franklyn Bañuelos 2, Adc Lab [facility] PROFESSIO NAL BUILDING 1.2.840.114 350.1.13.10 4.2.7.2.686 [id number] [facility] 2024-02-22 11:00:00 2024-02-22 11:16:45 Outpatient [facility] [id number] [facility] 2024-02-22 11:00:00 2024-02-22 11:16:45 [facility] BU[facility] 1.2.840.114 350.1.13.10 4.2.7.2.686 [id number] [facility] 2024-02-17 00:00:00 2024-02-17 09:00:[address] [facility] BUILDING 1.2.840.114 350.1.13.10 4.2.7.2.686 [id number] [id number] [facility] 2024-02-16 14:00:00 2024-02-16 14:11:07 Outpatient R KAMRAN HUA [facility] [id number] [facility] 2024-02-16 14:00:00 2024-02-16 14:11:07 Office Visit Kamran Hua [facility] 1.2.840.114 350.1.13.10 4.2.7.2.686 [id number] [facility] 2024-02-14 11:00:00 2024-02-14 11:04:29 Outpatient R EVELIN COLMENARES [facility] [id number] [facility] 2024-02-14 11:00:00 2024-02-14 11:04:29 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, Lane Escobar Evelin Colmenares Lab, Lane - Shawn [facility]?ISABELLA [facility] OFFICE BUILDING 1.84.114 350.1.13.10 4.2.7.2.686 [id number] [facility] 2024-02-11 14:30:00 2024-02-11 14:30:00 Office Visit Evelin Colmenares [facility]?ISABELLA [facility] MEDICAL OFFICE BUILDING 1.84.114 350.1.13.10 4.2.7.2.686 [id number] [facility] 2024-02-11 14:30:00 2024-02-11 14:28:23 Outpatient R FARIBA COLMENARESTHIA [facility] [id number] [facility] 2024-02-07 00:00:00 2024-02-09 17:00:15 Kamran Riley [facility] 1.84.114 350.1.13.10 4.2.7.2.686 [id number] [facility] 2024-02-01 10:00:00 2024-02-01 10:00:00 Outpatient R EVELIN COLMENARES [facility] [id number] [facility] 2023-12-20 00:00:00 2024-01-22 18:23:03 Patient Secure Msg Doctor Unassigned, [place] [facility] BUILDING 1.840.114 350.1.13.10 4.2.7.2.686 [id number] [facility] 2024-01-11 00:00:00 2024-01-11 15:54:47 Telephone Km Newton 1.84.114 350.1.13.10 4.2.7.2.686 [id number] [facility] 2024-01-11 00:00:00 2024-01-11 15:48:30 Transition of Care Km [place] 1.2840.114 350.1.13.10 4.2.7.2.686 [id number] 403 [id number] [facility] 2024-01-11 00:00:00 2024-01-11 15:47:49 Transition of Care Km [place] 1.2840.114 350.1.13.10 4.2.7.2.686 [id number] [facility] 2024-01-11 00:00:00 2024-01-11 12:31:30 Telephone Sarmad [facility] C[facility] 1.0.114 350.1.13.10 4.2.7.2.686 [id number] [facility] 2024-01-11 11:30:00 2024-01-11 11:30:00 Outpatient R SARMAD [facility] [id number] [facility] 2024-01-10 17:24:00 2024-01-10 21:40:00 Emergency X KAITLIN WYATT ERICCA [facility] ERT [id number] [facility] 2024-01-10 17:24:00 2024-01-10 21:40:00 Emergency Kaitlin Wyatt [facility] 1.0.114 350.1.13.10 4.2.7.2.686 [id number] [facility] 2023-12-29 00:00:00 2023-12-29 09:28:03 Telephone Sarmad [facility] PROFESS[facility] 1.2840.114 350.1.13.10 4.2.7.2.686 [id number] [facility] 2023-12-07 00:00:00 2023-12-20 09:02:06 Telephone IselaFranklyn gresham [facility] PRIMARY [facility] SPECIALTY CARE 1.2840.114 350.1.13.10 4.2.7.2.686 [id number] [facility] 2023-12-15 00:00:00 2023-12-16 11:55:52 Telephone Bethanyyang [facility] MEDICAL OFFICE BUILDING 1.2840.114 350.1.13.10 4.2.7.2.686 [id number] [facility] 2023-12-16 00:00:00 2023-12-16 10:25:52 Telephone Kamran Hua [facility] NAL BUILDING 1.2840.114 350.1.13.10 4.2.7.2.686 [id number] [facility] 2023-12-09 12:30:00 2023-12-09 13:14:33 Outpatient R KAMRAN HUA [facility] [id number] [facility] 2023-12-09 12:30:00 2023-12-09 12:45:00 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, Kamran Haider [facility] OFFICE BUILDING 1.2840.114 350.1.13.10 4.2.7.2.686 [id number] [facility] 2023-12-07 00:00:00 2023-12-07 13:43:32 Refill Dedra [facility] MEDICAL OFFICE BUILDING 1.2840.114 350.1.13.10 4.2.7.2.686 [id number] [facility] 2023-12-03 00:00:00 2023-12-06 06:58:33 Telephone Tyra Colmenaresa [facility] W[facility] 1.2.840.114 350.1.13.10 4.2.7.2.686 [id number] [facility] 2023-12-02 00:00:00 2023-12-02 15:59:44 Telephone Kamran Hua [facility] 1.2.840.114 350.1.13.10 4.2.7.2.686 [id number] [facility] 2023-12-01 16:00:00 2023-12-01 16:15:00 Dental Sales Representative Visit 2, Adc Lab Kamran Hua [facility] 1.2.840.114 350.1.13.10 4.2.7.2.686 [id number] [facility] 2023-12-01 15:30:00 2023-12-01 15:59:46 Outpatient R KAMRAN HUA [facility] [id number] [facility] 2023-12-01 15:30:00 2023-12-01 15:59:46 Office Visit Kamran Hua [facility] 1.2.840.114 350.1.13.10 4.2.7.2.686 [id number] [id number] [facility] 2023-11-05 00:00:00 2023-11-05 10:23:41 Refill Kamran Hua [facility] 1.2.840.114 350.1.13.10 4.2.7.2.686 [id number] [facility] 2023-10-22 14:30:00 2023-10-22 14:30:00 Outpatient R NAJMA [facility] [id number] [facility] 2023-10-19 15:00:00 2023-10-19 15:15:00 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, Lane Escobar Naj[facility] 1.2.840.114 350.1.13.10 4.2.7.2.686 [id number] [facility] 2023-10-19 14:00:00 2023-10-19 14:42:31 Outpatient R NAJMA [facility] [id number] [facility] 2023-10-19 14:00:00 2023-10-19 14:42:31 Office Visit Najma [facility] 1..840.114 350.1.13.10 4.2.7.2.686 [id number] [facility] 2023-10-13 00:00:00 2023-10-13 00:00:00 [facility]ill [facility] 1..840.114 350.1.13.10 4.2.7.2.686 [id number] 059 [id number] [facility] 2023-10-11 09:00:00 2023-10-11 11:03:18 Outpatient R DEDRA EVELIN [facility] [id number] [facility] 2023-10-11 09:00:00 2023-10-11 11:03:18 Office Visit DedraFaribaEvelinFormerly [facility] MEDICAL OFFICE BUILDING 1.2.840.114 350.1.13.10 4.2.7.2.686 [id number] 044 [id number] [facility] 2023-10-11 00:00:00 2023-10-11 00:00:00 Refill Anene, [facility]in[facility]ly [facility] ADONAY?ISABELLA [facility] MEDICAL OFFICE BUILDING 1.840.114 350.1.13.10 4.2.7.2.686 [id number] [facility] 2023-10-07 00:00:00 2023-10-07 00:00:00 Refill Kamran Hua [facility] BUILDING 1.84.114 350.1.13.10 4.2.7.2.686 [id number] [facility] 2023-10-01 14:30:00 2023-10-01 14:49:00 Outpatient R EVELIN COLMENARES [facility] [id number] [facility] 2023-10-01 14:30:00 2023-10-01 14:49:00 Office Visit DedraFaribaEvelinFormerly [facility] ADONAY?[facility] 1.840.114 350.1.13.10 4.2.7.2.686 [id number] [facility] 2023-09-27 00:00:00 2023-09-27 00:00:00 Telephone BethanyEvelin soria [facility], [facility] ADONAY?[facility] 1.84.114 350.1.13.10 4.2.7.2.686 [id number] [facility] 2023-09-12 00:00:00 2023-09-12 00:00:00 Refill Kamran Hua [facility] BUILDING 1.84.114 350.1.13.10 4.2.7.2.686 [id number] [facility] 2023-09-07 14:30:00 2023-09-07 14:30:00 Office Visit Evelin Colmenares Katherine M [facility], [facility] ADONAY?[facility] BUILD[facility] 1.2.840.114 350.1.13.10 4.2.7.2.686 [id number] [facility] 2023-09-07 14:30:00 2023-09-07 14:24:12 Outpatient R SHAKEEL , CHANA [facility] [id number] [facility] 2023-08-30 00:00:00 2023-08-30 00:00:[address] [facility] BUILD[facility] 1.2.840.114 350.1.13.10 4.2.7.2.686 [id number] [facility] 2023-08-27 10:15:00 2023-08-27 16:27:16 Outpatient R KAMRAN HUA [facility] [id number] [facility] 2023-08-27 10:15:00 2023-08-27 10:30:00 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, Lane - Shawn Unknown, Attending [facility] 1..840.114 350.1.13.10 4.2.7.2.686 [id number] [facility] 2023-08-20 13:00:00 2023-08-20 13:30:00 Office Visit Kamran Hua [facility] BUILDING 1.2.840.114 350.1.13.10 4.2.7.2.686 [id number] [facility] 2023-08-20 13:00:00 2023-08-20 13:00:00 Outpatient R KAMRAN HUA [facility] [id number] [facility] 2023-08-19 15:31:28 2023-08-19 23:59:00 Hospital Encounter Kamran Hua [facility] BUILD[facility] 1.2.840.114 350.1.13.10 4.2.7.2.686 [id number] [id number] [facility] 2023-08-19 14:30:00 2023-08-19 15:12:39 Outpatient R KAMRAN HUA [facility] [id number] [facility] 2023-08-19 14:30:00 2023-08-19 15:12:39 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, Ang - Shanw Unknown, Attending [facility] MEDICAL OFFICE BUILDING 1..840.114 350.1.13.10 4.2.7.2.686 [id number] [facility] 2023-08-17 00:00:00 2023-08-17 00:00:00 Telephone Kamran Hua [facility] NAL BUILDING 1..840.114 350.1.13.10 4.2.7.2.686 [id number] 059 [id number] [facility] 2023-08-13 00:00:00 2023-08-13 00:00:00 Evelin Singh [facility] OFF[facility] BUILD[facility] 1..840.114 350.1.13.10 4.2.7.2.686 [id number] [id number] [facility] 2023-07-23 16:30:00 2023-07-23 17:18:13 Outpatient R KIMBERLEY YAO [facility] [id number] [facility] 2023-07-23 16:30:00 2023-07-23 17:18:13 Office Visit Najma [facility] OFFICE BUILDING 1..840.114 350.1.13.10 4.2.7.2.686 [id number] [facility] 2023-07-07 13:45:00 2023-07-07 14:38:02 Outpatient R LIBORIO CEBALLOS [facility] [id number] [facility] 2023-07-07 13:45:00 2023-07-07 14:38:02 Ancillary Visit Martha [place] [facility] 1.2.840.114 350.1.13.10 4.2.7.2.686 [id number] [facility] 2023-06-28 13:00:00 2023-06-28 14:57:07 Ancillary Visit [facility] [place] [facility] BU[facility] 1.2.840.114 350.1.13.10 4.2.7.2.686 [id number] [facility] 2023-06-24 11:30:00 2023-06-24 11:30:00 Outpatient KAYLIE RODARTE [facility] [id number] [facility] 2023-06-22 14:00:00 2023-06-22 14:00:00 Outpatient R KIMBERLEY YAO [facility] [id number] [facility] 2023-06-07 12:50:00 2023-06-07 13:00:00 Office Visit Liborio Ceballos [facility] 1.2.840.114 350.1.13.10 4.2.7.2.686 [id number] [facility] 2023-06-07 12:50:00 2023-06-07 12:50:00 Outpatient LIBORIO MERCADO [facility] [id number] [facility] 2023-06-03 11:00:00 2023-06-03 11:00:00 Outpatient KAYLIE RODARTE [facility] [id number] [facility] 2023-05-26 15:20:00 2023-05-26 16:21:07 Outpatient LIBORIO MERCADO [facility] [id number] [facility] 2023-05-26 15:20:00 2023-05-26 16:21:07 Office Visit Liborio Ceballos [facility] 1.114 350.1.13.10 4.2.7.2.686 [id number] [facility] 2023-05-24 12:40:00 2023-05-24 12:50:00 Office Visit Liborio Ceballos [facility] 1..114 350.1.13.10 4.2.7.2.686 [id number] [facility] 2023-05-24 12:40:00 2023-05-24 12:40:00 Outpatient R LIBORIO CEBALLOS [facility] [id number] [facility] 2023-05-14 00:00:00 2023-05-14 00:00:00 Telephone Fariba [facility]?IS[facility]ELLA [facility] MEDICAL OFFICE BUILDING 1..114 350.1.13.10 4.2.7.2.686 [id number] 044 [id number] [facility] 2023-04-28 14:15:00 2023-04-28 14:15:00 Outpatient R BEBE PAINTING [facility] [id number] [facility] 2023-04-21 13:30:00 2023-04-21 13:53:46 Outpatient R LIBORIO CEBALLOS [facility] [id number] [facility] 2023-04-21 13:30:00 2023-04-21 13:53:46 Office Visit Lin [facility] 1..114 350.1.13.10 4.2.7.2.686 [id number] [facility] 2023-04-21 00:00:00 2023-04-21 00:00:00 Orders Only Doctor Unassigned, [place] [facility] 1..114 350.1.13.10 4.2.7.2.686 [id number] [facility] 2023-04-16 11:00:00 2023-04-16 11:29:27 Outpatient R EVELIN COLMENARES [facility] [id number] [facility] 2023-04-16 11:00:00 2023-04-16 11:29:27 [facility] 1.20.114 350.1.13.10 4.2.7.2.686 [id number] 044 [id number] [facility] 2023-04-14 00:00:00 2023-04-14 00:00:00 Refill Keon Scherer [facility] MEDICAL OFFICE BUILDING 1.2.114 350.1.13.10 4.2.7.2.686 [id number] 044 [id number] [facility] 2023-04-14 00:00:00 2023-04-14 00:00:00 Telephone Fariba [facility] MEDICAL OFF[facility] BUILD[facility] 1..114 350.1.13.10 4.2.7.2.686 [id number] [id number] [facility] 2023-04-08 11:15:00 2023-04-08 11:28:19 Outpatient R KAYLIE HUA [facility] [id number] [facility] 2023-04-08 11:15:00 2023-04-08 11:28:19 Office Visit Kaylie Hua [facility] 1..114 350.1.13.10 4.2.7.2.686 [id number] [facility] 2023-04-08 00:00:00 2023-04-08 00:00:00 Telephone [facility] NAL BUILD[facility] 1.2.114 350.1.13.10 4.2.7.2.686 [id number] [facility] 2023-04-05 00:00:00 2023-04-05 00:00:00 Telephone Evelin Colmenares [facility] OFF[facility] BUILDING 1.84.114 350.1.13.10 4.2.7.2.686 [id number] [id number] [facility] 2023-03-31 11:00:00 2023-03-31 11:39:00 Outpatient R PAINTING [facility] [id number] [facility] 2023-03-31 11:00:00 2023-03-31 11:39:00 Office Visit [facility]be [facility] 1.84.114 350.1.13.10 4.2.7.2.686 [id number] [facility] 2023-03-22 10:30:00 2023-03-22 10:30:00 Outpatient R EVELIN COLMENARES [facility] [id number] [facility] 2023-03-22 00:00:00 2023-03-22 00:00:00 Patient Secure Msg Doctor Unassigned, [place] [facility] 1.84.114 350.1.13.10 4.2.7.2.686 [id number] [facility] 2023-03-18 09:30:42 2023-03-18 23:59:00 Hospital Encounter Heather Henry [facility] MEDICAL OFFICE BUILDING 1.84.114 350.1.13.10 4.2.7.2.686 [id number] [facility] 2023-03-18 09:30:00 2023-03-18 14:48:03 Outpatient R HEATHER HENRY CRAIG [facility] [id number] [facility] 2023-03-18 09:30:00 2023-03-18 14:48:03 Office Visit Heather Henry [facility] OFFICE BUILDING 1..840.114 350.1.13.10 4.2.7.2.686 [id number] [facility] 2023-03-15 11:30:00 2023-03-15 12:13:02 Outpatient R MEET LUDWIG YU [facility] [id number] [facility] 2023-03-15 11:30:00 2023-03-15 12:13:02 Office Visit Meet Ludwig [facility] OFFICE BUILDING 1..840.114 350.1.13.10 4.2.7.2.686 [id number] [facility] 2023-03-10 14:30:00 2023-03-10 15:56:10 Outpatient R KAMRAN HUA [facility] [id number] [facility] 2023-03-10 14:30:00 2023-03-10 15:56:10 Office Visit Kamran Hua [facility] 1..840.114 350.1.13.10 4.2.7.2.686 [id number] [facility] 2023-03-01 00:00:00 2023-03-01 00:00:00 Orders Only Doctor Unassigned, [place] [facility] 1.840.114 350.1.13.10 4.2.7.2.686 [id number] [facility] 2023-02-15 09:30:00 2023-02-15 10:14:06 Outpatient R EVELIN COLMENARES [facility] [id number] [facility] 2023-02-15 09:30:00 2023-02-15 10:14:06 Office Visit Fariba [facility]aresFormerly [facility] OFF[facility] BUILD[facility] 1.840.114 350.1.13.10 4.2.7.2.686 [id number] [id number] [facility] 2023-02-08 15:43:00 2023-02-08 17:11:00 Emergency X ALCON OLIVA [facility] ERT [id number] [facility] 2023-02-08 15:43:00 2023-02-08 17:11:00 Emergency Alcno Oliva [facility] 1.0.114 350.1.13.10 4.2.7.2.686 [id number] [facility] 2023-02-04 00:00:00 2023-02-04 00:00:00 Orders Only Doctor Unassigned, [place] [facility] 1.840.114 350.1.13.10 4.2.7.2.686 [id number] [facility] 2023-01-29 16:30:00 2023-01-29 17:05:30 Outpatient R DEDRAFARIBAEVELIN [facility] [id number] [facility] 2023-01-29 16:30:00 2023-01-29 17:05:30 Office Visit Fariba Col[facility]aresFormerly [facility] 1.84.114 350.1.13.10 4.2.7.2.686 [id number] 044 [id number] [facility] 2023-01-20 00:00:00 2023-01-20 00:00:00 Telephone Franklyn Bañuelos [facility] 1..114 350.1.13.10 4.2.7.2.686 [id number] [facility] 2023-01-05 13:30:00 2023-01-05 14:27:23 Outpatient R EVELIN COLMENARES [facility] [id number] [facility] 2023-01-05 13:30:00 2023-01-05 14:27:23 Office Visit Fariba ColmenaresFormerly [facility] ADONAY?[facility] OFF[facility] BUILD[facility] 1.2.840.114 350.1.13.10 4.2.7.2.686 [id number] [id number] [facility] 2022-12-26 11:40:00 2022-12-26 11:59:22 Outpatient R ROWDY ENRIQUE [facility] [id number] [facility] 2022-12-26 11:40:00 2022-12-26 11:59:22 Urgent Care Rowdy Enrique Unknown, Attending [facility]ELLA [facility] MEDICAL OFFICE BUILDING 1.2840.114 350.1.13.10 4.2.7.2.686 [id number] [facility] 2022-12-23 00:00:00 2022-12-23 00:00:00 Telephone Fariba ColmenaresFormerly [facility] ADONAY?[facility] MEDICAL OFFICE BUILDING 1.2840.114 350.1.13.10 4.2.7.2.686 [id number] 044 [id number] [facility] 2022-12-10 00:00:00 2022-12-10 00:00:00 Telephone Fariba ColmenaresFormerly [facility] ADONAY?[facility] MEDICAL OFFICE BUILDING 1.2840.114 350.1.13.10 4.2.7.2.686 [id number] 044 [id number] [facility] 2022-12-10 00:00:00 2022-12-10 00:00:00 Orders Only Doctor Unassigned, [place] [facility] 1.2840.114 350.1.13.10 4.2.7.2.686 [id number] [facility] 2022-12-04 12:15:00 2022-12-04 12:15:00 Outpatient R EVELIN COLMENARES [facility] [id number] [facility] 2022-12-04 12:15:00 2022-12-04 12:15:00 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, Lane Escobar Dedra [facility] ADONAY?[facility] MEDICAL OFFICE BUILDING 1.2.840.114 350.1.13.10 4.2.7.2.686 [id number] [facility] 2022-12-03 00:00:00 2022-12-03 00:00:00 Telephone Fariba ColmenaresFormerly [facility] ADONAY?[facility] MEDICAL OFFICE BUILDING 1.2.840.114 350.1.13.10 4.2.7.2.686 [id number] [id number] [facility] 2022-11-26 15:00:00 2022-11-26 16:06:01 Outpatient R FARIBA COLMENARESTHIA [facility] [id number] [facility] 2022-11-26 15:00:00 2022-11-26 16:06:01 Office Visit Fariba ColmenaresFormerly [facility] ADONAY?[facility] MEDICAL OFFICE BUILDING 1.2.840.114 350.1.13.10 4.2.7.2.686 [id number] [id number] [facility] 2022-11-19 00:00:00 2022-11-19 00:00:00 Refill Dedra [facility] ADONAY?[facility] MEDICAL OFFICE BUILDING 1.2.840.114 350.1.13.10 4.2.7.2.686 [id number] [facility] 2022-10-26 11:00:00 2022-10-26 11:00:00 Outpatient R KAMRAN HUA [facility] [id number] [facility] 2022-10-23 00:00:00 2022-10-23 00:00:00 Orders Only Doctor Unassigned, [place] [facility] 1.2840.114 350.1.13.10 4.2.7.2.686 [id number] [facility] 2022-10-13 00:00:00 2022-10-13 00:00:00 Telephone Iselamarga [facility] 1.2840.114 350.1.13.10 4.2.7.2.686 [id number] [facility] 2022-10-05 00:00:00 2022-10-05 00:00:00 Telephone Sarmad [facility] 1.2.840.114 350.1.13.10 4.2.7.2.686 [id number] [facility] 2022-09-29 11:15:00 2022-09-29 11:59:23 Outpatient R SARMAD [facility] [id number] [facility] 2022-09-24 00:00:00 2022-09-24 00:00:00 Telephone Dedra [facility] MEDICAL OFFICE BUILDING 1.2.840.114 350.1.13.10 4.2.7.2.686 [id number] [id number] [facility] 2022-09-18 10:00:00 2022-09-18 10:28:03 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, [facility] MED[facility] BUILD[facility] 1.2.840.114 350.1.13.10 4.2.7.2.686 [id number] [facility] 2022-09-18 10:00:00 2022-09-18 10:00:00 Outpatient R DEDRA [facility] [id number] [facility] 2022-09-18 00:00:00 2022-09-18 00:00:00 Pre Visit Outreach Jayden Horan [facility] 1.114 350.1.13.10 4.2.7.2.686 [id number] [facility] 2022-09-17 11:00:00 2022-09-17 11:31:02 Outpatient R EVELIN COLMENARES [facility] [id number] [facility] 2022-09-17 11:00:00 2022-09-17 11:31:02 Office Visit Fariba ColmenaresFormerly [facility] ADONAY?ISABELLA [facility] MEDICAL OFFICE BUILDING 1.114 350.1.13.10 4.2.7.2.686 [id number] [id number] [facility] 2022-09-17 00:00:00 2022-09-17 00:00:00 Orders Only Doctor Unassigned, [place] [facility] 1..114 350.1.13.10 4.2.7.2.686 [id number] [facility] 2022-09-17 00:00:00 2022-09-17 00:00:00 Refill Keon Scherer [facility] ADONAY?[facility] MEDICAL OFFICE BUILDING 1.114 350.1.13.10 4.2.7.2.686 [id number] [id number] [facility] 2022-09-15 00:00:00 2022-09-15 00:00:00 Refill Fariba Col[facility]aresFormerly [facility] ADONAY?ISABELLA [facility] MEDICAL OFFICE BUILDING 1.114 350.1.13.10 4.2.7.2.686 [id number] 044 [id number] [facility] 2022-09-14 00:00:00 2022-09-14 00:00:00 Refill Fariba ColmenaresFormerly [facility]AY[facility] MED[facility] OFF[facility] BUILD[facility] 1..114 350.1.13.10 4.2.7.2.686 [id number] 044 [id number] [facility] 2022-08-10 13:00:00 2022-08-10 13:00:00 Outpatient EVELIN RAMIRES [facility] [id number] [facility] 2022-08-05 00:00:00 2022-08-05 00:00:00 Orders Only Doctor Unassigned, [place] [facility] 1.2840.114 350.1.13.10 4.2.7.2.686 [id number] [facility] 2022-07-27 13:30:00 2022-07-27 13:30:00 Outpatient EVELIN RAMIRES [facility] [id number] [facility] 2022-07-27 08:49:00 2022-07-27 12:38:00 Emergency X JAVIER MORRIS [facility] ERT [id number] [facility] 2022-07-27 08:49:00 2022-07-27 12:38:00 Emergency Javier Morris [facility] 1.2840.114 350.1.13.10 4.2.7.2.686 [id number] [id number] [facility] 2022-07-13 00:00:00 2022-07-13 00:00:00 Telephone [facility] 1.284.114 350.1.13.10 4.2.7.2.686 [id number] [id number] [facility] 2022-07-09 00:00:00 2022-07-09 00:00:00 Telephone Fariba ColmenaresFormerly [facility] ADONAY?[facility] MEDICAL OFFICE BUILDING 1.2840.114 350.1.13.10 4.2.7.2.686 [id number] 044 [id number] [facility] 2022-06-22 00:00:00 2022-06-22 00:00:[address] [facility] BUILDING 1.2840.114 350.1.13.10 4.2.7.2.686 [id number] [facility] 2022-06-18 06:26:00 2022-06-18 12:25:00 Outpatient R KAMRAN HUA [facility] [id number] [facility] 2022-06-18 06:26:00 2022-06-18 12:25:00 Hospital Encounter Kamran Hua [facility] 1.2840.114 350.1.13.10 4.2.7.2.686 [id number] [facility] 2022-06-18 10:00:00 2022-06-18 11:00:00 Surgery Kenn Christine [facility] 1.2.840.114 350.1.13.10 4.2.7.2.686 [id number] [facility] 2022-06-18 00:00:00 2022-06-18 00:00:00 Telephone Evelin Colmenares [facility]ILD[facility] 1.2840.114 350.1.13.10 4.2.7.2.686 [id number] [id number] [facility] 2022-06-18 00:00:00 2022-06-18 00:00:00 Orders Only Doctor Unassigned, [place] [facility] 1.2840.114 350.1.13.10 4.2.7.2.686 [id number] [id number] [facility] 2022-06-16 11:45:00 2022-06-16 12:00:00 Dental Sales Representative Visit Pob, Adc Lab Main Kamran Hua [facility] BUILDING 1.2840.114 350.1.13.10 4.2.7.2.686 [id number] [facility] 2022-06-16 11:45:00 2022-06-16 11:45:00 Outpatient R KAMRAN HUA [facility] [id number] [facility] 2022-06-16 08:00:00 2022-06-16 08:00:00 Outpatient R [facility] [id number] [facility] 2022-06-01 11:00:00 2022-06-01 11:25:00 Emergency X FADUMO MCNAMARA [facility] [id number] [facility] 2022-06-01 11:00:00 2022-06-01 11:25:00 Emergency Fadumo Mcnamara T [facility] 1..840.114 350.1.13.10 4.2.7.2.686 [id number] [facility] 2022-05-20 11:00:00 2022-05-20 11:00:00 Outpatient R [facility] [id number] [facility] 2022-05-19 16:20:00 2022-05-19 16:38:33 Outpatient R HALEY CAMEJO [facility] [id number] [facility] 2022-05-19 16:20:00 2022-05-19 16:38:33 Urgent Care Haley Camejo Unknown, Attending [facility]?ISABELLA [facility] MEDICAL OFFICE BUILDING 1.840.114 350.1.13.10 4.2.7.2.686 [id number] [facility] 2022-05-08 00:00:00 2022-05-08 00:00:00 Telephone Kamran Hua [facility] 1..840.114 350.1.13.10 4.2.7.2.686 [id number] [facility] 2022-04-29 00:00:00 2022-04-29 00:00:00 Telephone Kamran Hua [facility] PROFESSIO NAL BUILDING 1.2840.114 350.1.13.10 4.2.7.2.686 [id number] [facility] 2022-04-27 00:00:00 2022-04-27 00:00:00 Telephone [facility] 1.2840.114 350.1.13.10 4.2.7.2.686 [id number] [facility] 2022-04-18 00:00:00 2022-04-18 00:00:00 [facility] 1.2840.114 350.1.13.10 4.2.7.2.686 [id number] 044 [id number] [facility] 2022-04-08 00:00:00 2022-04-08 00:00:00 Orders Only Doctor Unassigned, [place] [facility] 1.2840.114 350.1.13.10 4.2.7.2.686 [id number] [facility] 2022-03-30 13:00:00 2022-03-30 14:03:44 Outpatient R FRANKLYN BAÑUELOS [facility] [id number] [facility] 2022-03-30 13:00:00 2022-03-30 14:03:44 Office Visit Franklyn Bañuelos Rm, Adc Surg Spec Procedure [facility] PROFESS[facility] NAL BUILDING 1.2840.114 350.1.13.10 4.2.7.2.686 [id number] [facility] 2022-03-30 00:00:00 2022-03-30 00:00:00 Orders Only Doctor Unassigned, [place] [facility] 1.2840.114 350.1.13.10 4.2.7.2.686 [id number] [facility] 2022-03-26 00:00:00 2022-03-26 00:00:00 [facility] 1.2.840.114 350.1.13.10 4.2.7.2.686 [id number] [facility] 2022-03-18 10:00:00 2022-03-18 10:36:16 Nurse Visit Nurse, [facility] 1.2.840.114 350.1.13.10 4.2.7.2.686 [id number] [facility] 2022-03-18 10:00:00 2022-03-18 10:00:00 Outpatient R SARMAD [facility] [id number] [facility] 2022-03-09 14:00:00 2022-03-09 14:00:00 Outpatient R SARMAD [facility] [id number] [facility] 2022-03-03 00:00:00 2022-03-03 00:00:00 Refill Evelin Colmenares [facility] 1.2.840.114 350.1.13.10 4.2.7.2.686 [id number] [facility] 2022-02-25 13:15:00 2022-02-25 13:15:00 Nurse Visit Nurse, [facility] 1.2.840.114 350.1.13.10 4.2.7.2.686 [id number] [facility] 2022-02-25 13:15:00 2022-02-25 13:02:27 Outpatient R [facility] [id number] [facility] 2022-02-02 08:15:00 2022-02-02 09:02:46 Outpatient R [facility] [id number] [facility] 2022-02-02 08:15:00 2022-02-02 09:02:46 [facility] 1.84.114 350.1.13.10 4.2.7.2.686 [id number] [facility] 2022-01-29 11:45:00 2022-01-29 11:45:00 Outpatient R [facility] [id number] [facility] 2022-01-22 00:00:00 2022-01-22 00:00:00 Refill Nehal Del Real [facility] OFF[facility] BUILD[facility] 1.84.114 350.1.13.10 4.2.7.2.686 [id number] [facility] 2022-01-22 00:00:00 2022-01-22 00:00:00 Refill Dheeraj Del Realful Cyn [facility] MED[facility] OFF[facility] BUILD[facility] 1.84.114 350.1.13.10 4.2.7.2.686 [id number] [facility] 2022-01-22 00:00:00 2022-01-22 00:00:00 Refill Keon Scherer [facility] BU[facility] 1.84.114 350.1.13.10 4.2.7.2.686 [id number] [facility] 2022-01-19 13:15:00 2022-01-19 13:25:36 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, Evelin Doan [facility] MED[facility] OFFICE BUILDING 1.84.114 350.1.13.10 4.2.7.2.686 [id number] [facility] 2022-01-19 13:15:00 2022-01-19 13:15:00 Outpatient R EVELIN COLMENARES [facility] [id number] [facility] 2022-01-19 00:00:00 2022-01-19 00:00:00 [facility] 1.2.840.114 350.1.13.10 4.2.7.2.686 [id number] [facility] 2022-01-16 13:00:00 2022-01-16 23:59:00 Outpatient R EVELIN COLMENARES [facility] [id number] [facility] 2022-01-16 13:00:00 2022-01-16 13:00:00 Outpatient R EVELIN COLMENARES [facility] [id number] [facility] 2022-01-16 12:15:00 2022-01-16 12:30:00 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, [address] Escobar Dedra [facility] OFF[facility] BUILD[facility] 1.2.840.114 350.1.13.10 4.2.7.2.686 [id number] [facility] 2022-01-16 11:30:00 2022-01-16 12:24:17 [facility] 1.2.840.114 350.1.13.10 4.2.7.2.686 [id number] [facility] 2022-01-16 11:30:00 2022-01-16 12:24:17 Outpatient R EVELIN COLMENARES [facility] [id number] [facility] 2022-01-16 11:30:00 2022-01-16 11:30:00 Outpatient R EVELIN COLMENARES [facility] [id number] [facility] 2021-12-30 14:27:53 2021-12-30 23:59:00 Outpatient R EVELIN COLMENARES [facility] [id number] [facility] 2021-12-30 13:30:00 2021-12-30 15:03:09 Outpatient R EVELIN COLMENARES [facility] [id number] [facility] 2021-12-30 13:30:00 2021-12-30 15:03:09 Office Visit Fariba [facility]ly [facility] ADONAY?ISABELLA [facility] MEDICAL OFFICE BUILDING 1.2.840.114 350.1.13.10 4.2.7.2.686 [id number] [facility] 2021-12-30 13:30:00 2021-12-30 13:30:00 Outpatient R EVELIN COLMENARES [facility] [id number] [facility] 2021-12-26 00:00:00 2021-12-26 00:00:00 [facility]phone [facility] 1.2.840.114 350.1.13.10 4.2.7.2.686 [id number] [facility] 2021-12-24 13:00:00 2021-12-24 13:00:00 Outpatient KAMRAN ROCK [facility] [id number] [facility] 2021-12-24 13:00:00 2021-12-24 13:00:00 Outpatient KAMRAN ROCK [facility] [id number] [facility] 2021-12-24 13:00:00 2021-12-24 13:00:00 Outpatient KAMRAN ROCK [facility] [id number] [facility] 2021-12-24 13:00:00 2021-12-24 13:00:00 Outpatient KAMRAN ROCK [facility] [id number] [facility] 2021-12-24 00:00:00 2021-12-24 00:00:00 Telephone Kamran Hua [facility] 1.2.840.114 350.1.13.10 4.2.7.2.686 [id number] [facility] 2021-12-24 00:00:00 2021-12-24 00:00:00 Telephone Fariba ColmenaresFormerly [facility], [facility] OFFICE BUILDING 1.2.840.114 350.1.13.10 4.2.7.2.686 [id number] [facility] 2021-12-19 14:30:00 2021-12-19 14:58:55 [facility] [id number] [facility] 2021-12-19 14:30:00 2021-12-19 14:58:55 Office Visit Dedra [facility] MEDICAL OFFICE BUILDING 1.2.840.114 350.1.13.10 4.2.7.2.686 [id number] [facility] 2021-12-19 00:00:00 2021-12-19 00:00:00 Telephone Kamran Hua [facility] 1.2.840.114 350.1.13.10 4.2.7.2.686 [id number] [facility] 2021-12-02 11:30:00 2021-12-02 11:30:00 Outpatient R [facility] [id number] [facility] 2021-12-02 11:00:00 2021-12-02 11:00:00 Outpatient R [facility] [id number] [facility] 2021-11-26 00:00:00 2021-11-26 00:00:00 Telephone Elinor Jimenez [facility] 1..114 350.1.13.10 4.2.7.2.686 [id number] [facility] 2021-11-25 14:30:47 2021-11-25 23:59:00 Outpatient ELINOR ENAMORADO DENISE [facility] [id number] [facility] 2021-11-25 14:30:47 2021-11-25 23:59:00 Hospital Encounter Elinor Jimenez [facility] 1..114 350.1.13.10 4.2.7.2.686 [id number] [facility] 2021-11-25 15:00:00 2021-11-25 15:48:19 Outpatient ELINOR ENAMORADO DENISE [facility] [id number] [facility] 2021-11-25 15:00:00 2021-11-25 15:48:19 Office Visit Elinor Jimenez [facility] 1.114 350.1.13.10 4.2.7.2.686 [id number] [facility] 2021-11-25 14:00:00 2021-11-25 14:00:00 Outpatient ELINOR ENAMORADO DENISE [facility] [id number] [facility] 2021-11-25 14:00:00 2021-11-25 14:00:00 Outpatient ELINOR ENAMORADO DENISE [facility] [id number] [facility] 2021-11-20 00:00:00 2021-11-20 00:00:00 Telephone Elinor Jimenez [facility] 1.84.114 350.1.13.10 4.2.7.2.686 [id number] [facility] 2021-11-18 00:00:00 2021-11-18 00:00:00 Telephone Kamran Hua [facility] 1.2.840.114 350.1.13.10 4.2.7.2.686 [id number] [facility] 2021-11-18 00:00:00 2021-11-18 00:00:00 Nehal Hernandez [facility] 1..840.114 350.1.13.10 4.2.7.2.686 [id number] [facility] 2021-11-07 13:00:00 2021-11-07 14:01:44 Outpatient GEE JUAN HOWARD [facility] [id number] [facility] 2021-11-07 13:00:00 2021-11-07 14:01:44 Office Visit Gee Blount [facility]?ISABELLA [facility] MEDICAL OFFICE BUILDING 1.2.840.114 350.1.13.10 4.2.7.2.686 [id number] [facility] 2021-11-07 11:30:00 2021-11-07 11:30:00 Outpatient EVELIN RAMIRES [facility] [id number] [facility] 2021-11-06 00:00:00 2021-11-06 00:00:00 Telephone Kamran Hua [facility] 1..840.114 350.1.13.10 4.2.7.2.686 [id number] [facility] 2021-11-03 11:30:00 2021-11-03 12:12:13 Outpatient EVELIN RAMIRES [facility] [id number] [facility] 2021-11-03 11:30:00 2021-11-03 12:12:13 Office Visit Evelin Colmenares [facility] 1.2.840.114 350.1.13.10 4.2.7.2.686 [id number] [facility] 2021-11-03 11:30:00 2021-11-03 11:30:00 Outpatient R EVELIN COLMENARES [facility] [id number] [facility] 2021-10-29 15:00:00 2021-10-29 17:02:57 [facility] [id number] [facility] 2021-10-29 15:00:00 2021-10-29 17:02:57 Office Visit Kamran Hua [facility] 1..840.114 350.1.13.10 4.2.7.2.686 [id number] [facility] 2021-10-29 15:00:00 2021-10-29 17:02:57 Outpatient R KAMRAN HUA [facility] [id number] [facility] 2021-10-24 00:00:00 2021-10-24 00:00:[address] [facility] 1..840.114 350.1.13.10 4.2.7.2.686 [id number] [facility] 2021-10-23 18:00:00 2021-10-23 18:18:59 Urgent Care Luz Maria Berry [facility] 1.2.840.114 350.1.13.10 4.2.7.2.686 [id number] [facility] 2021-10-23 18:00:00 2021-10-23 18:00:00 Outpatient R LUZ MARIA BERRY [facility] [id number] [facility] 2021-10-23 00:00:00 2021-10-23 00:00:[address] Cyn [facility]?ISABELLA [facility] MEDICAL OFFICE BUILDING 1.2.840.114 350.1.13.10 4.2.7.2.686 [id number] [facility] 2021-10-09 13:00:00 2021-10-09 13:42:33 Outpatient ELINOR ENAMORADO DENISE [facility] [id number] [facility] 2021-10-09 13:00:00 2021-10-09 13:42:33 Office Visit Elinor Jimenez [facility] 1.2.840.114 350.1.13.10 4.2.7.2.686 [id number] [facility] 2021-10-09 13:00:00 2021-10-09 13:42:33 Outpatient R ELINOR JIMENEZ DENISE [facility] [id number] [facility] 2021-10-07 16:30:00 2021-10-07 17:14:26 Outpatient R EVELIN COLMENARES [facility] [id number] [facility] 2021-10-07 16:30:00 2021-10-07 17:14:26 Office Visit Evelin Colmenares [facility] ADONAY?[facility] 1.2.840.114 350.1.13.10 4.2.7.2.686 [id number] [facility] 2021-10-07 16:30:00 2021-10-07 17:14:26 Outpatient R EVELIN COLMENARES [facility] [id number] [facility] 2021-10-07 16:30:00 2021-10-07 17:14:26 Outpatient R EVELIN COLMENARES [facility] [id number] [facility] 2021-10-07 00:00:00 2021-10-07 00:00:00 Orders Only Doctor Unassigned, [place] [facility] 1.114 350.1.13.10 4.2.7.2.686 [id number] [facility] 2021-09-30 00:00:00 2021-09-30 00:00:00 Refill Tamera Carter [facility] 1.84.114 350.1.13.10 4.2.7.2.686 [id number] [facility] 2021-09-17 00:00:00 2021-09-17 00:00:00 Outpatient R RADIOLOGY [facility] [id number] [facility] 2021-09-15 15:00:00 2021-09-15 15:00:00 Outpatient R KAMRAN HUA [facility] [id number] [facility] 2021-09-10 14:00:00 2021-09-10 15:05:34 Outpatient R KAMRAN HUA [facility] [id number] [facility] 2021-09-10 14:00:00 2021-09-10 15:05:34 Office Visit Kamran Hua [facility] NAL BUILDING 1.840.114 350.1.13.10 4.2.7.2.686 [id number] [facility] 2021-09-10 14:00:00 2021-09-10 15:05:34 Outpatient R KAMRAN HUA [facility] [id number] [facility] 2021-09-10 00:00:00 2021-09-10 00:00:00 Orders Only Doctor Unassigned, [place] [facility] 1.84.114 350.1.13.10 4.2.7.2.686 [id number] [facility] 2021-09-08 10:20:00 2021-09-08 10:40:00 Urgent Care Raul Formerly [facility] SYDNIE URIAS?[facility] 1.20.114 350.1.13.10 4.2.7.2.686 [id number] [facility] 2021-09-08 10:20:00 2021-09-08 10:20:00 Outpatient R RAUL [facility] [id number] [facility] 2021-09-08 00:00:00 2021-09-08 00:00:00 Letter (Out) Doctor Unassigned, [place] [facility] 1.20.114 350.1.13.10 4.2.7.2.686 [id number] [facility] 2021-09-08 00:00:00 2021-09-08 00:00:00 Letter (Out) Doctor Unassigned, [place] [facility] 1.20.114 350.1.13.10 4.2.7.2.686 [id number] [facility] 2021-09-01 00:00:00 2021-09-01 00:00:00 Transition of [address] [place] [address] 1.0.114 350.1.13.10 4.2.7.2.686 [id number] [facility] 2021-08-29 17:37:00 2021-08-30 15:10:00 Outpatient U PONCHO DENNEY MUHAMMAD [facility] IGGY [id number] [facility] 2021-08-29 17:37:00 2021-08-30 15:10:00 Emergency Jorge Geiger Muhammad Zeeshan [facility] 1.0.114 350.1.13.10 4.2.7.2.686 [id number] [facility] 2021-08-29 17:00:00 2021-08-29 17:00:00 Outpatient NESTOR HUFF III [facility] [id number] [facility] 2021-08-27 15:00:00 2021-08-27 15:00:00 Outpatient ELINOR ENAMORADO DENISE [facility] [id number] [facility] 2021-08-27 00:00:00 2021-08-27 00:00:00 Telephone Elinor Jimenez [facility] 1.840.114 350.1.13.10 4.2.7.2.686 [id number] [facility] 2021-08-26 15:02:48 2021-08-26 23:59:00 Outpatient ELINOR ENAMORADO DENISE [facility] [id number] [facility] 2021-08-26 15:02:48 2021-08-26 23:59:00 Hospital Encounter Elinor Jimenez [facility] 1.840.114 350.1.13.10 4.2.7.2.686 [id number] [facility] 2021-08-26 14:30:00 2021-08-26 14:30:00 Outpatient ELINOR ENAMORADO DENISE [facility] [id number] [facility] 2021-08-12 15:30:00 2021-08-12 15:30:00 Outpatient ELINOR ENAMORADO DENISE [facility] [id number] [facility] 2021-08-12 15:30:00 2021-08-12 15:30:00 Office Visit Elinor Jimenez [facility] 1.840.114 350.1.13.10 4.2.7.2.686 [id number] [facility] 2021-08-12 15:30:00 2021-08-12 15:20:13 Outpatient ELINOR ENAMORADO DENISE [facility] [id number] [facility] 2021-08-05 10:15:00 2021-08-05 11:59:19 Outpatient R NEHAL DEL REAL [facility] [id number] [facility] 2021-08-05 10:15:00 2021-08-05 11:59:19 Office Visit [facility] OFF[facility] 1.840.114 350.1.13.10 4.2.7.2.686 [id number] [facility] 2021-08-05 11:15:00 2021-08-05 11:30:00 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, Ang - [facility] OFF[facility]ILD[facility] 1.840.114 350.1.13.10 4.2.7.2.686 [id number] [facility] 2021-08-04 11:00:00 2021-08-04 13:30:03 Outpatient GISSELLE OSORIO [facility] [id number] [facility] 2021-08-04 11:00:00 2021-08-04 13:30:03 Office Visit Karlie Jim Peter Tze [facility] MEDICAL OFFICE BUILDING 1.840.114 350.1.13.10 4.2.7.2.686 [id number] [facility] 2021-08-04 11:00:00 2021-08-04 11:00:00 Outpatient GISSELLE OSORIO [facility] [id number] [facility] 2021-08-04 00:00:00 2021-08-04 00:00:00 Orders Only Doctor Unassigned, [place] [facility] 1.840.114 350.1.13.10 4.2.7.2.686 [id number] [facility] 2021-07-28 00:00:00 2021-07-28 00:00:00 Telephone Alejandro Del Realnancy Addison [facility] 1.2.840.114 350.1.13.10 4.2.7.2.686 [id number] [facility] 2021-06-30 15:54:00 2021-06-30 18:42:00 Emergency X FLORENTIN THAPA [facility] ERT [id number] [facility] 2021-06-30 15:54:00 2021-06-30 18:42:00 Emergency Florentin Thapa B [facility] 1.2.840.114 350.1.13.10 4.2.7.2.686 [id number] [facility] 2021-06-28 19:00:00 2021-06-28 19:20:00 Urgent Care Nurse, Lane [facility] 1.2.840.114 350.1.13.10 4.2.7.2.686 [id number] [facility] 2021-06-28 19:00:00 2021-06-28 19:00:00 Outpatient R TAMERA CARTER [facility] [id number] [facility] 2021-06-28 19:00:00 2021-06-28 19:00:00 Outpatient R TAMERA CARTER [facility] [id number] [facility] 2021-06-23 20:40:00 2021-06-23 20:56:03 Outpatient R BASHIR HALEY [facility] [id number] [facility] 2021-06-23 20:40:00 2021-06-23 20:56:03 [facility] 1.840.114 350.1.13.10 4.2.7.2.686 [id number] [facility] 2021-06-18 10:20:00 2021-06-18 10:40:00 [facility] 1.0114 350.1.13.10 4.2.7.2.686 [id number] [facility] 2021-06-18 10:20:00 2021-06-18 10:20:00 Outpatient R [facility]AND [facility] [id number] [facility] 2021-06-18 10:20:00 2021-06-18 10:20:00 Outpatient R SHYANNE BLAND STRALABrittni [facility] [id number] [facility] 2021-06-05 00:00:00 2021-06-05 00:00:00 Orders Only Doctor Unassigned, [place] [facility] 1.114 350.1.13.10 4.2.7.2.686 [id number] [facility] 2021-06-03 00:00:00 2021-06-03 00:00:00 Refill Nehal Del Real Cyn [facility] ADONAY?[facility] MEDICAL OFFICE BUILDING 1.84114 350.1.13.10 4.2.7.2.686 [id number] [facility] 2021-06-02 00:00:00 2021-06-02 00:00:00 Case Management FreedomAlejandronancy Cyn [facility] ADONAY?[facility] MEDICAL OFFICE BUILDING 1.840.114 350.1.13.10 4.2.7.2.686 [id number] [facility] 2021-06-02 00:00:00 2021-06-02 00:00:00 Telephone Nehal Del Real A [facility] 1.84.114 350.1.13.10 4.2.7.2.686 [id number] [facility] 2021-05-22 12:47:18 2021-05-22 13:02:18 Dental Sales Representative Visit Tech, [facility] Sleep Lab Shyanne Bland [facility] 1.84.114 350.1.13.10 4.2.7.2.686 [id number] [facility] 2021-05-22 13:00:00 2021-05-22 13:00:00 Outpatient R SHYANNE BLAND, STRAHIL [facility] [id number] [facility] 2021-05-22 13:00:00 2021-05-22 13:00:00 Outpatient R SHYANNE BLAND, STRAHIL [facility] [id number] [facility] 2021-05-22 00:00:00 2021-05-22 00:00:00 Orders Only Doctor Unassigned, [place] [facility] 1.84.114 350.1.13.10 4.2.7.2.686 [id number] [facility] 2021-05-20 13:00:00 2021-05-20 13:00:00 Outpatient R [facility] [id number] [facility] 2021-05-20 13:00:00 2021-05-20 13:00:00 Outpatient R SHYANNE BLAND, STRAHIL [facility] [id number] [facility] 2021-05-20 12:39:23 2021-05-20 12:54:23 Laboratory Only Only, Adc Test Shyanne Bland T [facility] 1.84.114 350.1.13.10 4.2.7.2.686 [id number] [facility] 2021-05-13 00:00:00 2021-05-13 00:00:00 Refill Nehal Del Real [facility] 1.114 350.1.13.10 4.2.7.2.686 [id number] [facility] 2021-05-12 00:00:00 2021-05-12 00:00:00 Case Management Nehal Del Real [facility] ADONAY?[facility] MEDICAL OFFICE BUILDING 1.114 350.1.13.10 4.2.7.2.686 [id number] [facility] 2021-05-10 09:40:00 2021-05-10 09:40:00 Outpatient Serjio BROWN ACE [facility] [id number] [facility] 2021-05-10 09:17:19 2021-05-10 09:37:19 Urgent Care EbrahiLuz Maria fitzpatrick [facility] ADONAY?[facility] MEDICAL OFFICE BUILDING 1.114 350.1.13.10 4.2.7.2.686 [id number] [facility] 2021-05-09 00:00:00 2021-05-09 00:00:00 Refill Nehal Del Real [facility] MEDICAL OFFICE BUILDING 1.114 350.1.13.10 4.2.7.2.686 [id number] [facility] 2021-05-06 00:00:00 2021-05-06 00:00:00 Refill Nehal Del Real [facility] OFFICE BUILDING ONE 1.114 350.1.13.10 4.2.7.2.686 [id number] [facility] 2021-05-05 16:15:00 2021-05-05 23:59:00 Outpatient R NEHAL DEL REAL [facility] [id number] [facility] 2021-05-05 16:15:00 2021-05-05 23:59:00 Hospital Encounter Nehal Del Real [facility] OFFICE BUILDING 1.84.114 350.1.13.10 4.2.7.2.686 [id number] [facility] 2021-05-05 16:21:47 2021-05-05 16:38:22 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, Lane Escobar Nehal Del Real [facility] ADONAY?[facility] OFFICE BUILDING 1.84.114 350.1.13.10 4.2.7.2.686 [id number] [facility] 2021-05-05 16:00:00 2021-05-05 16:18:42 Outpatient R NEHAL DEL REAL [facility] [id number] [facility] 2021-05-05 15:17:21 2021-05-05 16:18:42 Office Visit Nehal Del Real [facility] OFFICE BUILDING 1.84.114 350.1.13.10 4.2.7.2.686 [id number] [facility] 2021-04-11 15:45:00 2021-04-11 15:45:00 Outpatient R NEHAL DEL REAL [facility] [id number] [facility] 2021-03-09 00:00:00 2021-03-09 00:00:00 Refill Nehal Del Real [facility] Office Building One 1.84.114 350.1.13.10 4.2.7.2.686 [id number] [facility] 2021-03-07 00:00:00 2021-03-07 00:00:00 Telephone Nehal Del Real [facility] 1.2.840.114 350.1.13.10 4.2.7.2.686 [id number] [facility] 2021-02-12 00:00:00 2021-02-12 00:00:00 Refill Nehal Del Real [facility] Marco [facility] 1.2.840.114 350.1.13.10 4.2.7.2.686 [id number] [facility] 2021-02-10 10:00:00 2021-02-10 10:00:00 Outpatient R KARLIE JIM [facility] [id number] [facility] 2021-02-10 09:40:46 2021-02-10 09:55:46 [facility] 1.2.840.114 350.1.13.10 4.2.7.2.686 [id number] [facility] 2021-01-20 08:00:00 2021-01-20 08:00:00 Outpatient R NEHAL DEL REAL [facility] [id number] [facility] 2021-01-17 10:30:00 2021-01-17 10:30:00 Outpatient R NEHAL DEL REAL [facility] [id number] [facility] 2021-01-01 16:20:00 2021-01-01 16:20:00 Outpatient R CHUCKIE SHEEHAN [facility] [id number] [facility] 2020-12-30 15:00:00 2020-12-30 15:00:00 Outpatient R FRANKLYN BAÑUELOS [facility] [id number] [facility] 2020-12-24 15:45:00 2020-12-24 15:45:00 Outpatient R RITA WHITT [facility] [id number] [facility] 2020-12-09 11:15:00 2020-12-09 11:15:00 Outpatient R ARTHURBROOKSANYI [facility] [id number] [facility] 2020-11-07 13:00:00 2020-11-07 13:00:00 Outpatient R [facility] [id number] [facility] 2020-11-05 15:45:00 2020-11-05 15:45:00 Outpatient R WHITT, RITA [facility] [id number] [facility] 2020-11-04 14:00:00 2020-11-04 14:00:00 Outpatient R FRANKLYN BAÑUELOS [facility] [id number] [facility] 2020-10-28 13:30:00 2020-10-28 13:30:00 [facility] [id number] 2020-10-17 10:45:00 2020-10-17 10:45:00 Outpatient R NEHAL DEL REAL [facility] [id number] [facility] 2020-10-07 09:45:00 2020-10-07 09:45:00 Outpatient R FRANKLYN BAÑUELOS [facility] [id number] [facility] 2020-09-12 09:30:00 2020-09-12 09:30:00 Outpatient R FRANKLYN BAÑUELOS [facility] [id number] [facility] 2020-09-10 16:15:00 2020-09-10 16:15:00 Outpatient R EVELIN COLMENARES [facility] [id number] [facility] 2020-09-02 14:00:00 2020-09-02 14:00:00 Outpatient R NEHAL DEL REAL [facility] [id number] [facility] 2020-08-30 16:00:00 2020-08-30 16:00:00 [facility] [id number] [facility] 2020-08-20 00:00:00 2020-08-20 00:00:00 Telephone Alejandro Del Realconniegennaro [facility] [address] [id number] 2020-08-05 14:00:00 2020-08-05 14:00:00 Outpatient R FRANKLYN BAÑUELOS [facility] [id number] [facility] 2020-07-23 00:00:00 2020-07-23 00:00:00 Telephone Alejandro Del Realconniegennaro Addison [facility] [address] [id number] 2020-07-19 11:00:00 2020-07-19 11:00:00 Outpatient R NEHAL DEL REAL [facility] [id number] [facility] 2020-07-19 08:01:11 2020-07-19 10:21:48 Office Visit [place], [place] [facility] Office Building One [id number] 2020-07-19 08:00:00 2020-07-19 08:00:00 Outpatient R NEHAL DEL REAL [facility] [id number] [facility] 2020-05-10 08:00:00 2020-05-10 08:00:00 Outpatient R NEHAL DEL REAL [facility] [id number] [facility] 2020-05-09 13:00:00 2020-05-09 13:00:00 Outpatient R NEHAL DEL REAL [facility] [id number] [facility] 2020-04-29 13:00:00 2020-04-29 13:00:00 Outpatient R NEHAL DEL REAL [facility] [id number] [facility] 2020-04-19 16:00:00 2020-04-19 16:00:00 Outpatient R NEHAL DEL REAL [facility] [id number] [facility] 2020-04-16 13:30:00 2020-04-16 13:30:00 Outpatient R RITA WHITT [facility] [id number] [facility] 2020-04-02 13:30:00 2020-04-02 13:30:00 Outpatient R RITA WHITT [facility] [id number] [facility] 2020-03-21 13:20:00 2020-03-21 13:20:00 Outpatient R [facility] [id number] [facility] 2020-03-13 13:30:00 2020-03-13 13:30:00 Outpatient KAYLIE WILSON [facility] [id number] [facility] 2020-03-05 14:00:00 2020-03-05 14:00:00 Outpatient R RITA WHITT [facility] [id number] [facility] 2020-01-29 10:00:00 2020-01-29 10:00:00 Outpatient R NEHAL DEL REAL [facility] [id number] [facility] 2020-01-24 13:00:00 2020-01-24 13:00:00 Outpatient HEATHER DREW [facility] [id number] [facility] 2020-01-18 13:15:00 2020-01-18 13:15:00 Outpatient R HEATHER HENRY [facility] [id number] [facility] 2020-01-15 14:30:00 2020-01-15 14:30:00 Outpatient ELINOR ENAMORADO DENISE [facility] [id number] [facility] 2020-01-11 14:15:00 2020-01-11 14:15:00 Outpatient R HEATHER HENRY [facility] [id number] [facility] 2019-12-19 10:00:00 2019-12-19 10:00:00 Outpatient R CINDY MTZ [facility] [id number] [facility] 2019-12-13 07:19:00 2019-12-13 09:45:00 Outpatient R ELINOR JIMENEZ [facility] [id number] [facility] 2019-12-10 16:00:00 2019-12-10 16:00:00 Outpatient R ZARA YBARRA [facility] [id number] [facility] 2019-12-08 16:15:00 2019-12-08 16:15:00 [facility] [id number] 2019-11-28 13:30:00 2019-11-28 13:30:00 Outpatient ELINOR ENAMORADO DENISE [facility] [id number] [facility] 2019-11-23 10:30:00 2019-11-23 10:30:00 Outpatient RITA ODELL [facility] [id number] [facility] 2019-11-06 13:45:00 2019-11-06 13:45:00 Outpatient R NEHAL DEL REAL [facility] [id number] [facility] 2019-10-31 12:29:42 2019-10-31 23:59:00 Outpatient RITA ODELL [facility] [id number] [facility] 2019-10-24 13:30:00 2019-10-24 13:30:00 Outpatient RITA ODELL [facility] [id number] [facility] 2019-09-20 13:30:00 2019-09-20 13:30:00 Outpatient ORIN WHIPPLE [facility] [id number] [facility] 2019-09-18 16:15:00 2019-09-18 16:15:00 Outpatient R NEHAL DEL REAL [facility] [id number] [facility] 2019-09-12 14:45:00 2019-09-12 14:45:00 Outpatient R RITA WHITT [facility] [id number] [facility] 2019-09-08 11:15:00 2019-09-08 11:15:00 Outpatient NEHAL ALFARO [facility] [id number] [facility] 2018-10-03 12:17:25 2018-10-03 14:32:00 Outpatient NEHAL ALFARO [facility] [id number] [facility] Results Test Description Test Time Test Comments Results Result Co mments Source [facility], [id number] 19:08:00 * Test Item Value Reference Range Interpretation Comme nts POCT U SP GRAV (test code = 3255) 1.025 mg/dl 1.005-1.025 POCT PH U (test code = 3254) 5.5 mg/dl 5-8 POCT U LEUK EST (test code = 3263) small Negative - Negative POCT U NIT (test code = 3262) positive Negative - Negati ve POCT U PROT (test code = 3259) 300 Negative - Negative POCT U GLU (test code = 3256) negative Negative - Negati ve POCT U KETONE (test code = 3258) negative Negative - Negative POCT U UROBILI (test code = 3260) 0.2 mg/dl 0.2-1 POCT U BILI (test code = 3261) negative Negative - Negative POCT U BLD (test code = 3257) moderate Negative - Negati ve POCT U COLOR (test code = 3266) POCT U APPEAR (test code = 3267) [facility], [id number] 21:19:00 * Test Item Value Reference Range Interpretation Comme nts POCT U SP GRAV (test code = 3255) POCT PH U (test code = 3254) 5.0 mg/dl 5-8 POCT U LEUK EST (test code = 3263) Large Negative - Negative POCT U NIT (test code = 3262) negative Negative - Negati ve POCT U PROT (test code = 3259) Trace Negative - Negat [place] POCT U GLU (test code = 3256) negative Negative - Negati ve POCT U KETONE (test code = 3258) negative Negative - Negative POCT U UROBILI (test code = 3260) 0.2 mg/dl 0.2-1 POCT U BILI (test code = 3261) negative Negative - Negat [place] POCT U BLD (test code = 3257) Large Negative - Negati ve POCT U COLOR (test code = 3266) yellow POCT U APPEAR (test code = 3267) [facility],[id number] 00:00:00* Test Item Value Reference Range Interpretation Comme nts PVR (URINE VOLUME) (test code = 5193) 0 ml 0-100 [facility], [id number] 22:07:00 * Test Item Value Reference Range Interpretation Comme nts POCT U SP GRAV (test code = 3255) 1.025 mg/dl 1.005-1.025 POCT PH U (test code = 3254) 5.5 mg/dl 5-8 POCT U LEUK EST (test code = 3263) large Negative - Negative POCT U NIT (test code = 3262) positive Negative - Negati ve POCT U PROT (test code = 3259) 5.5 Negative - Negative POCT U GLU (test code = 3256) neg Negative - Negati ve POCT U KETONE (test code = 3258) neg Negative - Negative POCT U UROBILI (test code = 3260) 0.2 mg/dl 0.2-1 POCT U BILI (test code = 3261) neg Negative - Negative POCT U BLD (test code = 3257) large Negative - Negati ve POCT U COLOR (test code = 3266) yellow POCT U APPEAR (test code = 3267) [facility] [id number] 15:19:00 * Test Item Value Reference Range Interpretation Comme nts POCT U SP GRAV (test code = 3255) 1.005-1.025 A POCT PH U (test code = 3254) 5.5 mg/dl 5-8 POCT U LEUK EST (test code = 3263) small Negative - Negative A POCT U NIT (test code = 3262) positive Negative - Negati ve A POCT U PROT (test code = 3259) 300 Negative - Negat [place] A POCT U GLU (test code = 3256) negative Negative - Negati ve POCT U KETONE (test code = 3258) negative Negative - Negative POCT U UROBILI (test code = 3260) 0.2 mg/dl 0.2-1 POCT U BILI (test code = 3261) negative Negative - Negat [place] POCT U BLD (test code = 3257) large Negative - Negati ve A POCT U COLOR (test code = 3266) tucker A POCT U APPEAR (test code = 3267) turbid Lab Interpretation (test cod e = 32144-5) Abnormal [facility],POST-VOID RES,US,[id number] 15:18:00* Test Item Value Reference Range Interpretation Comme nts PVR (URINE VOLUME) (test code = 5193) 40 ml 0-[facility], [id number] 18:39:00 * Test Item Value Reference Range Interpretation Comme nts POCT U SP GRAV (test code = 3255) 1.015 mg/dl 1.005-1.025 POCT PH U (test code = 3254) 5.5 mg/dl 5-8 POCT U LEUK EST (test code = 3263) small Negative - Negative POCT U NIT (test code = 3262) Positive Negative - Negati ve POCT U PROT (test code = 3259) 100 Negative - Negative POCT U GLU (test code = 3256) Negative Negative - Negati ve POCT U KETONE (test code = 3258) Negative Negative - Negative POCT U UROBILI (test code = 3260) 0.2 mg/dl 0.2-1 POCT U BILI (test code = 3261) negative Negative - Negative POCT U BLD (test code = 3257) LArge Negative - Negati ve POCT U COLOR (test code = 3266) orange POCT U APPEAR (test code = 3267) clear [facility],POST-VOID RES,US,[id number] 00:00:00* Test Item Value Reference Range Interpretation Comme nts PVR (URINE VOLUME) (test cod e = 5193) 120 ml 0-100 A Lab Interpretation (test cod e = 57242-7) Abnormal [facility] ABDOMEN PELVIS W [id number] 07:07:07Exam: CT Abdomen and Pelvis With Contrast, 03/18/2024 9:00 PM. Ordering Physician: SWETA COOLEY. History: Abdominal pain, post-op POST TURP with lower abdomen/pelvic pain . Comparison: CT abdomen pelvis 02/08/2023. Technique: CT abdomen and pelvis was obtained with intravenous contrast. CTwas performed according to ALARA (As Low As Reasonably Achievable). Technical Quality: Adequate. Findings: LOWER CHEST:Mild bibasilar atelectasis. ABDOMEN/PELVIS:Liver: Hepatomegaly.Gallbladder/biliary: Postcholecystectomy. Prominence of the intra- andextrahepatic biliary system consistent with prior cholecystectomy.Pancreas: Symmetric enhancementSpleen: Normal. Adrenal glands: Normal.Kidneys and ureters:Right pelvic kidney. Symmetric enhancement.Bladder: Diffuse bladder wall thickening. Adjacent stranding.Reproductive organs: Recent TURP. Stomach/bowel: No bowel obstruction. No bowel wall thickening. Normalappendix. Lymph nodes: Prominent mesenteric and retroperitoneal nodes withoutadenopathy.Peritoneum: No intraperitoneal free air. No intraperitoneal free fluid.Vessels: Atherosclerosis without aneurysm. MUSCULOSKELETAL:Bones: No acute osseous abnormality.Soft tissues: Unremarkable.[facility] GLUCOSE (AUTOMATED)2024-03-10 17:16:20* Test Item Value Reference Range Interpretation Comme nts POCT GLU (test code = 1182666322) 153 mg/dL 70-110 H Lab Interpretation (test cod e = 72632-6) Abnormal [facility] GLUCOSE (AUTOMATED)2024-03-10 17:16:20* Test Item Value Reference Range Interpretation Comme nts POCT GLU (test code = 4298908826) 153 mg/dL 70-110 H Lab Interpretation (test cod e = 93181-7) Abnormal [facility] GLUCOSE (AUTOMATED)2024-03-10 12:49:14* Test Item Value Reference Range Interpretation Comme nts POCT GLU (test code = 3643041534) 114 mg/dL 70-110 H Lab Interpretation (test cod e = 21666-0) Abnormal [facility] GLUCOSE (AUTOMATED)2024-03-10 12:49:14* Test Item Value Reference Range Interpretation Comme nts POCT GLU (test code = 4244193658) 114 mg/dL 70-110 H Lab Interpretation (test cod e = 79648-8) Abnormal [facility] GLUCOSE (AUTOMATED)2024-03-10 01:08:13* Test Item Value Reference Range Interpretation Comme nts POCT GLU (test code = 7884853144) 119 mg/dL 70-110 H Lab Interpretation (test cod e = 29126-1) Abnormal [facility] GLUCOSE (AUTOMATED)2024-03-10 01:08:13* Test Item Value Reference Range Interpretation Comme nts POCT GLU (test code = 6672873260) 119 mg/dL 70-110 H Lab Interpretation (test cod e = 40283-9) Abnormal [facility] GLUCOSE (AUTOMATED)2024-03-09 21:50:11* Test Item Value Reference Range Interpretation Comme nts POCT GLU (test code = 6151471917) 134 mg/dL 70-110 H Lab Interpretation (test cod e = 80536-9) Abnormal [facility] GLUCOSE (AUTOMATED)2024-03-09 21:50:11* Test Item Value Reference Range Interpretation Comme nts POCT GLU (test code = 0536023569) 134 mg/dL 70-110 H Lab Interpretation (test cod e = 98999-3) Abnormal [facility] GLUCOSE (AUTOMATED)2024-03-09 16:47:15* Test Item Value Reference Range Interpretation Comme nts POCT GLU (test code = 2338326485) 169 mg/dL 70-110 H Lab Interpretation (test cod e = 86889-2) Abnormal [facility] GLUCOSE (AUTOMATED)2024-03-09 16:47:15* Test Item Value Reference Range Interpretation Comme nts POCT GLU (test code = 6177636060) 169 mg/dL 70-110 H Lab Interpretation (test cod e = 67064-9) Abnormal [facility] GLUCOSE (AUTOMATED)2024-03-09 13:37:45* Test Item Value Reference Range Interpretation Comme nts POCT GLU (test code = 1779692895) 264 mg/dL 70-110 H Lab Interpretation (test cod e = 24657-0) Abnormal [facility] GLUCOSE (AUTOMATED)2024-03-09 13:37:45* Test Item Value Reference Range Interpretation Comme nts POCT GLU (test code = 6212751468) 264 mg/dL 70-110 H Lab Interpretation (test cod e = 32253-7) Abnormal [facility] GLUCOSE (AUTOMATED)2024-03-09 12:51:12* Test Item Value Reference Range Interpretation Comme nts POCT GLU (test code = 1507256154) 168 mg/dL 70-110 H Lab Interpretation (test cod e = 16764-5) Abnormal [facility] GLUCOSE (AUTOMATED)2024-03-09 12:51:12* Test Item Value Reference Range Interpretation Comme nts POCT GLU (test code = 2092106491) 168 mg/dL 70-110 H Lab Interpretation (test cod e = 08267-8) Abnormal [facility] GLUCOSE (AUTOMATED)2024-03-09 02:28:41* Test Item Value Reference Range Interpretation Comme nts POCT GLU (test code = 1530184332) 104 mg/dL 70-110 Lab Interpretation (test cod e = 35974-3) Normal [facility] GLUCOSE (AUTOMATED)2024-03-09 02:28:41* Test Item Value Reference Range Interpretation Comme nts POCT GLU (test code = 1474469777) 104 mg/dL 70-110 Lab Interpretation (test cod e = 22999-2) Normal [facility] GLUCOSE (AUTOMATED)2024-03-08 21:29:40* Test Item Value Reference Range Interpretation Comme nts POCT GLU (test code = 5648856332) 255 mg/dL 70-110 H Lab Interpretation (test cod e = 07782-8) Abnormal [facility] GLUCOSE (AUTOMATED)2024-03-08 21:29:40* Test Item Value Reference Range Interpretation Comme nts POCT GLU (test code = 0963650188) 255 mg/dL 70-110 H Lab Interpretation (test cod e = 73568-9) Abnormal [facility]. Metabolic Panel (99307)2024-02-22 17:59:23* Test Item Value Reference Range Interpretation Comme nts NA (test code = 8186016665) 137 mmol/L 135-145 K (test code = 3384949094) 5.1 mmol/L 3.5-5.0 H CL (test code = 3475961995) 102 mmol/L 98-108 CO2 TOTAL (test code = 9301543449) 27 mmol/L 23-31 AGAP (test code = 0184477273) 8 2-16 BUN (test code = 8068825737) 25 mg/dL 7-23 H GLUCOSE (test code = 9989974672) 181 mg/dL 70-110 H CREATININE (test code = 2160-0) 0.86 mg/dL 0.60-1.25 TOTAL BILI (test code = 2484093234) 0.8 mg/dL 0.1-1.1 CALCIUM (test code = 3365888463) 10.1 mg/dL 8.6-10.6 T PROTEIN (test code = 6652412256) 7.1 g/dL 6.3-8.2 ALBUMIN (test code = 2596919721) 4.1 g/dL 3.5-5.0 ALK PHOS (test code = 5440804531) 60 U/L 34-122 ALTv (test code = 1742-6) 22 U/L 5-50 AST(SGOT) (test code = 3117606386) 19 U/L 13-40 eGFR (test code = 73601-9) 85.4 mL/min/1.73m2 CKD-EPI eGFR (2020). Assuming creatinine has been stable day-to-day for at least three months, the eGFR indicates Category G2 (60 - 89 mL/min/1.73 m2) Lab Interpretation (test code = 26758-4) Abnormal [facility] with [id number] 17:29:41* Test Item Value Reference Range Interpretation Comme nts WBC (test code = 6690-2) 9.02 4.20-10.70 RBC (test code = 789-8) 4.98 4.26-5.52 HGB (test code = 718-7) 15.9 g/dL 12.2-16.4 HCT (test code = 4544-3) 47.9 % 38.4-49.3 MCV (test code = 787-2) 96.2 fL 81.7-95.6 H MCH (test code = 785-6) 31.9 pg 26.1-32.7 MCHC (test code = 786-4) 33.2 g/dL 31.2-35.0 RDW-SD (test code = 04396-0) 49.1 fL 38.5-51.6 RDW-CV (test code = 788-0) 13.9 % 12.1-15.4 PLT (test code = 777-3) 300 150-328 MPV (test code = 42777-1) 10.4 fL 9.8-13.0 NRBC/100 WBC (test code = 6599666205) 0.0 0.0-10.0 NRBC x10^3 (test code = 8514966274) See_Comment [Automated messa ge] The system which generated this result transmitted reference range: 10*3/?L. The reference range was not used to interpret this result as normal/abnormal. GRAN MAT (NEUT) % (test code = 770-8) 67.8 % IMM GRAN % (test code = 5289716590) 0.30 % LYMPH % (test code = 736-9) 21.2 % MONO % (test code = 5905-5) 8.4 % EOS % (test code = 713-8) 1.9 % BASO % (test code = 706-2) 0.4 % GRAN MAT x10^3(ANC) (test code = 4491113495) 6.11 10*3/uL 1.99-6.95 IMM GRAN x10^3 (test code = 0889967150) 0.03 10*3/uL 0.00-0.06 LYMPH x10^3 (test code = 731-0) 1.91 10*3/uL 1.09-3.23 MONO x10^3 (test code = 742-7) 0.76 10*3/uL 0.36-1.02 EOS x10^3 (test code = 711-2) 0.17 10*3/uL 0.06-0.53 BASO x10^3 (test code = 704-7) 0.04 10*3/uL 0.01-0.09 Lab Interpretation (test code = 85254-5) [facility]normal [facility]-22 17:11:00* Test Item Value Reference Range Interpretation Comme nts ABO & RH (test code = 20) A POSITIVE IAT (test code = 1185) Negative [facility] Urinalysis, [id number] 15:15:00 * Test Item Value Reference Range Interpretation Comme nts POCT U SP GRAV (test code = 3255) 1.015 mg/dl 1.005-1.025 POCT PH U (test code = 3254) 5.5 mg/dl 5-8 POCT U LEUK EST (test code = 3263) negative Negative - Negative POCT U NIT (test code = 3262) negative Negative - Negative POCT U PROT (test [...] POCT U COLOR (test code = 3266) light yellow POCT U APPEAR (test code = 3267) slightly cloudy [facility],US,[id number] 00:00:00* Test Item Value Reference Range Interpretation Comme nts PVR (URINE VOLUME) (test code = 5193) 70 ml 0-100 [facility] Whole [id number] 00:08:44* Test Item Value Reference Range Interpretation Comme nts LACTIC ACID (test code = 0647944223) 2.20 mmol/L 0.50-2.20 Lab Interpretation (test cod e = 58529-5) Normal [facility] Hemoglobin A1C [id number] 19:03:00* Test Item Value Reference Range Interpretation Comme nts POCT HBA1C (test code = 4548-4) 7.5 % 4-6 A Lab Interpretation (test cod e = 63600-6) Abnormal [facility] Hemoglobin A1C [id number] 19:03:00* Test Item Value Reference Range Interpretation Comme nts POCT HBA1C (test code = 4548-4) 7.5 % 4-6 A Lab Interpretation (test cod e = 06328-4) Abnormal [facility] (TTE)2023-08-20 02:47:27* Test Item Value Reference Range Interpretation Comme nts Height (test code = 2476920694) 70 in Weight (test code = 2880223447) 190 lbs Systolic BP (test code = 0725726301) 135 mmHg Diastolic BP (test code = 9361793557) 85 mmHg Heart Rate (test code = 5280227161) 80 bpm EF(Teich) (test code = 3678026100) 60.50 % LVIDD (test code = 8040932526) 4.80 cm LVIDS (test code = 2309032699) 3.20 cm Left Ventricular End Systolic Volume by Teichholz Method (test code = 6027729) 42.1 mL Left Ventricular End Diastolic Volume by Teichholz Method (test code = 6150502) 106.5 mL IVS (test code = 9424811753) 1.05 cm LVPWD (test code = 2729080608) 1.23 cm LVOT diameter (test code = 7288045389) 2.15 cm LVOT area (test code = 3093443127) 3.60 cm2 FS (test code = 4897168101) 32 % LA size (test code = 8810444930) 4.3 cm RVOT diameter (test code = 6487376065) 2.46 cm ACS (test code = 0626692118) 1.22 cm Ao root diam (test code = 4820083240) 3.10 cm Aortic root (test code = 4045059487) 3.1 cm Ao root annulus (test code = 4539793727) 3.1 cm PW (test code = 6433542747) 1.23 cm 0.6-1.1 EF - 2D (test code = 65039997) 60.50 % Interventricular Septum Diastolic Thickness by 2D (test code = 0401607) 1.05 cm BSA (test code = 1603261902) 2.04 m2 E wave decelartion time (test code = 0928365960) 0.23 s MV Peak E Kisha (test code = 1404597771) 125.7 cm/s MR max PG (test code = 5618962775) 84.70 mm[Hg] MR max kisha (test code = 4017417619) 460.00 cm/s Mr max kisha (test code = 6566562858) 460.0 m/s MV Prop V (test code = 6250774874) 50.50 cm/s Tapse (test code = 0202143554) 2.34 cm TR Peak Kisha (test code = 8122678598) 218.2 cm/s Triscuspid Valve Regurgitation Peak Gradient (test code = 9758157928) 19.0 mmHg LVOT stroke volume (test code = 7979075489) 88.10 cm3 LVOT peak kisha (test code = 0440769783) 116.2 cm/s LVOT mn grad (test code = 2184007332) 2.5 mmHg AV LVOT peak gradient (test code = 0493612031) 5.4 mmHg LVOT peak VTI (test code = 3817987002) 24.3 cm LV V1 mean (test code = 1350533829) 72.80 cm/s Aortic valve mean velocity (test code = 9277704430) 83.9 cm/s Ao peak kisha (test code = 3177115876) 125.3 cm/s Ao VTI (test code = 5210057295) 27.8 cm AV area by cont VTI (test code = 4772920330) 3.2 cm2 AV area peak kisha (test code = 6357050419) 3.4 cm2 Ao max PG (test code = 6422252200) 6.30 mm[Hg] AV peak gradient (test code = 6827709369) 6.3 mmHg AV valve area (test code = 1032136163) 3.20 cm2 AV mean gradient (test code = 8731203458) 3.2 mmHg RVOT area (test code = 3534130011) 4.75 cm2 Radiology Study observation (narrative) (test code = 26775-0) MARIO (test code = MARIO) Table formatting [...] parasternal, subcostal and suprasternal views were obtained. [facility] Des-[id number] 22:48:07* Test Item Value Reference Range Interpretation Comme [facility] NT-proBNP (test code = 81477-8) 1260 pg/mL <=125 MARIO (test code = MARIO) Result Indeterminate-Consid er causes of NT-proBNP elevation other than Heart failure such as acute coronary syndrome, pulmonary embolism, pulmonary hypertension, sepsis, stroke, and renal dysfunction. Lab Interpretation (test code = 83319-0) Abnormal [facility] Center[facility]id [facility] (09539)(Total Cholesterol, Triglycerides, HDL)2023-08-19 22:41:43* Test Item Value Reference Range Interpretation Comme nts CHOL (test code = 9177974873) 203 mg/dL 120-200 H HDL (test code = 0221007886) 29 mg/dL >=40 L HDLC RATIO (test code = 5418131652) 7.0 <=5.0 H TRIG (test code = 6303136962) 258 mg/dL 30-170 H LDL CHOL (test code = 92776-7) 122 mg/dL <=160 VLDL (test code = 9707726808) 52 mg/dL 5-60 Lab Interpretation (test cod e = 32840-8) Abnormal [facility] Metabolic Panel (NA, K, CL, CO2, GLUCOSE, BUN, CREATININE, CA)2023-08-19 22:41:23* Test Item Value Reference Range Interpretation Comme nts NA (test code = 8583865665) 138 mmol/L 135-145 K (test code = 8552731149) 4.5 mmol/L 3.5-5.0 CL (test code = 8741815646) 106 mmol/L 98-108 CO2 TOTAL (test code = 1482398494) 28 mmol/L 23-31 AGAP (test code = 5218152843) 4 2-16 BUN (test code = 7966482915) 23 mg/dL 7-23 GLUCOSE (test code = 5961935158) 97 mg/dL 70-110 CREATININE (test code = 2160-0) 0.75 mg/dL 0.60-1.25 CALCIUM (test code = 0525948865) 9.6 mg/dL 8.6-10.6 eGFR (test code = 70512-2) 89.5 mL/min/1.73m2 [facility] Hemoglobin A1C [id number] 22:11:00* Test Item Value Reference Range Interpretation Comme [facility] POCT HBA1C (test code = 4548-4) 7.0 % 4-6 A Lab Interpretation (test cod e = 53046-3) Abnormal [facility] Hemoglobin A1C [id number] 22:11:00* Test Item Value Reference Range Interpretation Comme [facility] POCT HBA1C (test code = 4548-4) 7.0 % 4-6 A Lab Interpretation (test cod e = 48424-6) Abnormal [facility] URINALYSIS, [id number] 16:26:00 * Test Item Value Reference Range [...] U APPEAR (test code = 3267) clear [facility] URINALYSIS, [id number] 16:26:00 * Test Item Value Reference Range [...] U APPEAR (test code = 3267) clear [facility] HEMOGLOBIN A1C [id number] 16:13:00* Test Item Value Reference Range Interpretation Comme nts POCT HBA1C (test code = 4548-4) 7.2 % 4-6 A Lab Interpretation (test cod e = 48695-5) Abnormal [facility] HEMOGLOBIN A1C [id number] 16:13:00* Test Item Value Reference Range Interpretation Comme [facility] POCT HBA1C (test code = 4548-4) 7.2 % 4-6 A Lab Interpretation (test cod e = 19742-7) Abnormal [facility] HEMOGLOBIN A1C [id number] 21:28:00* Test Item Value Reference Range Interpretation Comme [facility] POCT HBA1C (test code = 4548-4) 7.4 % 4-6 A Lab Interpretation (test cod e = 40806-2) Abnormal [facility] HEMOGLOBIN A1C [id number] 21:28:00* Test Item Value Reference Range Interpretation Comme [facility] POCT HBA1C (test code = 4548-4) 7.4 % 4-6 A Lab Interpretation (test cod e = 23179-6) Abnormal [id number] 22:33:13 * Test Item Value Reference Range Interpretation Comme [facility] PSA (test code = 0504899690) 1.78 ng/mL <=4.00 MARIO (test code = MARIO) Biotin has been reported to cause a negative bias, interpret results relative to patient's use of biotin. Lab Interpretation (test code = 27500-3) Normal [facility]. METABOLIC PANEL (84012)2022-12-04 22:06:27* Test Item Value Reference Range Interpretation Comme nts NA (test code = 4294026006) 139 mmol/L 135-145 K (test code = 4396898922) 4.7 mmol/L 3.5-5.0 CL (test code = 3571258085) 104 mmol/L 98-108 CO2 TOTAL (test code = 6849415393) 25 mmol/L 23-31 AGAP (test code = 6394767668) 10 2-16 BUN (test code = 2936754079) 22 mg/dL 7-23 GLUCOSE (test code = 2669489580) 154 mg/dL 70-110 H CREATININE (test code = 9643422004) 0.83 mg/dL 0.60-1.25 TOTAL BILI (test code = 7131898800) 0.6 mg/dL 0.1-1.1 CALCIUM (test code = 1041512887) 9.6 mg/dL 8.6-10.6 T PROTEIN (test code = 8140446323) 6.8 g/dL 6.3-8.2 ALBUMIN (test code = 4558249057) 4.2 g/dL 3.5-5.0 ALK PHOS (test code = 3348036974) 56 U/L 34-122 ALTv (test code = 1742-6) 22 U/L 5-50 AST(SGOT) (test code = 0817734302) 21 U/L 13-40 eGFR (test code = 9781865798) 88.7 mL/min/1.73m2 MARIO (test code = MARIO) [...] imaging tests). Lab Interpretation (test code = 12386-0) Abnormal [facility]. METABOLIC PANEL (00002)2022-12-04 22:06:27* Test Item Value Reference Range Interpretation Comme nts NA (test code = 4467398400) 139 mmol/L 135-145 K (test code = 5838792906) 4.7 mmol/L 3.5-5.0 CL (test code = 6735448344) 104 mmol/L 98-108 CO2 TOTAL (test code = 1551298269) 25 mmol/L 23-31 AGAP (test code = 5772627165) 10 2-16 BUN (test code = 9492503711) 22 mg/dL 7-23 GLUCOSE (test code = 2472194949) 154 mg/dL 70-110 H CREATININE (test code = 2362813146) 0.83 mg/dL 0.60-1.25 TOTAL BILI (test code = 1913322376) 0.6 mg/dL 0.1-1.1 CALCIUM (test code = 2391819658) 9.6 mg/dL 8.6-10.6 T PROTEIN (test code = 8961962427) 6.8 g/dL 6.3-8.2 ALBUMIN (test code = 8169294816) 4.2 g/dL 3.5-5.0 ALK PHOS (test code = 9945866934) 56 U/L 34-122 ALTv (test code = 1742-6) 22 U/L 5-50 AST(SGOT) (test code = 4665246719) 21 U/L 13-40 eGFR (test code = 1641452521) 88.7 mL/min/1.73m2 MARIO (test code = MARIO) [...] imaging tests). Lab Interpretation (test code = 57110-6) Abnormal [facility] (A1C)2022-12-04 21:40:39* Test Item Value Reference Range Interpretation Comme nts HGB A1C (test code = 4548-4) 7.3 % 4.0-5.7 H MARIO (test code = MARIO) Reference RangesNormal: <5.7%Prediabetes: 5.7 - 6.4%Diabetes: > 6.5% Lab Interpretation (test code = 71464-0) [facility]normal [facility]OLIC PANEL (40579)2022-09-18 19:43:39* Test Item Value Reference Range Interpretation Comme nts NA (test code = 0427440192) 139 mmol/L 135-145 K (test code = 8263947994) 4.8 mmol/L 3.5-5.0 CL (test code = 3347955426) 104 mmol/L 98-108 CO2 TOTAL (test code = 2796283321) 27 mmol/L 23-31 AGAP (test code = 2731953499) 8 2-16 BUN (test code = 6325402891) 20 mg/dL 7-23 GLUCOSE (test code = 8608028010) 148 mg/dL 70-110 H CREATININE (test code = 3902530512) 0.84 mg/dL 0.60-1.25 TOTAL BILI (test code = 7175831320) 0.7 mg/dL 0.1-1.1 CALCIUM (test code = 2257305993) 9.2 mg/dL 8.6-10.6 T PROTEIN (test code = 2173475498) 6.8 g/dL 6.3-8.2 ALBUMIN (test code = 9170113283) 4.1 g/dL 3.5-5.0 ALK PHOS (test code = 9005928071) 50 U/L 34-122 ALTv (test code = 1742-6) 19 U/L 5-50 AST(SGOT) (test code = 9042978694) 20 U/L 13-40 eGFR (test code = 4577322509) 87.5 mL/min/1.73m2 MARIO (test code = MARIO) [...] imaging tests). Lab Interpretation (test code = 89826-2) Abnormal [facility]. METABOLIC PANEL (47231)2022-09-18 19:43:39* Test Item Value Reference Range Interpretation Comme nts NA (test code = 5684446389) 139 mmol/L 135-145 K (test code = 9875289877) 4.8 mmol/L 3.5-5.0 CL (test code = 1541964171) 104 mmol/L 98-108 CO2 TOTAL (test code = 8597341191) 27 mmol/L 23-31 AGAP (test code = 3387314169) 8 2-16 BUN (test code = 8158231695) 20 mg/dL 7-23 GLUCOSE (test code = 5986423803) 148 mg/dL 70-110 H CREATININE (test code = 3684721923) 0.84 mg/dL 0.60-1.25 TOTAL BILI (test code = 8705371888) 0.7 mg/dL 0.1-1.1 CALCIUM (test code = 9846460835) 9.2 mg/dL 8.6-10.6 T PROTEIN (test code = 1522510637) 6.8 g/dL 6.3-8.2 ALBUMIN (test code = 4336250968) 4.1 g/dL 3.5-5.0 ALK PHOS (test code = 2449490941) 50 U/L 34-122 ALTv (test code = 1742-6) 19 U/L 5-50 AST(SGOT) (test code = 1632989057) 20 U/L 13-40 eGFR (test code = 3241660649) 87.5 mL/min/1.73m2 MARIO (test code = MARIO) [...] imaging tests). Lab Interpretation (test code = 65025-5) Abnormal [facility] WITH [id number] 19:10:29* Test Item Value Reference Range Interpretation Comme nts WBC (test code = 6690-2) 6.31 See_Comment [Automated Carbonated Content] The system which generated this result transmitted reference range: 4.20 - 10.70 10*3/?L. The reference range was not used to interpret this result as normal/abnormal. RBC (test code = 789-8) 4.93 See_Comment [Automated Carbonated Content] The system which generated this result transmitted [...] 32.5 g/dL 31.2-35.0 RDW-SD (test code = 75669-2) 48.5 fL 38.5-51.6 RDW-CV (test code = 788-0) 14.5 % 12.1-15.4 PLT (test code = 777-3) 258 See_Comment [Automated Carbonated Content] The system which generated this result transmitted reference range: 150 - 328 10*3/?L. The reference range was not used to interpret this result as normal/abnormal. MPV (test code = 30328-8) 10.5 fL 9.8-13.0 NRBC/100 WBC (test code = 6988210603) 0.0 See_Comment [Automated me ssage] The system which generated this result transmitted reference range: 0.0 - 10.0 /100 WBCs. The reference range was not used to interpret this result as normal/abnormal. NRBC x10^3 (test code = 1979115442) See_Comment [Automated me ssage] The system which generated this result transmitted reference range: 10*3/?L. The reference range was not used to interpret this result as normal/abnormal. GRAN MAT (NEUT) % (test code = 770-8) 58.2 % IMM GRAN % (test code = 1041966971) 0.20 % LYMPH % (test code = 736-9) 26.0 % MONO % (test code = 5905-5) 11.3 % EOS % (test code = 713-8) 3.3 % BASO % (test code = 706-2) 1.0 % GRAN MAT x10^3(ANC) (test code = 9587976634) 3.68 10*3/uL 1.99-6.95 IMM GRAN x10^3 (test code = 5046281957) 0.00-0.06 LYMPH x10^3 (test code = 731-0) 1.64 10*3/uL 1.09-3.23 MONO x10^3 (test code = 742-7) 0.71 10*3/uL 0.36-1.02 EOS x10^3 (test code = 711-2) 0.21 10*3/uL 0.06-0.53 BASO x10^3 (test code = 704-7) 0.06 10*3/uL 0.01-0.09 [facility] WITH [id number] 19:10:29* Test Item Value Reference Range Interpretation Comme nts WBC (test code = 6690-2) 6.31 See_Comment [Automated messa ge] The system which generated this result transmitted reference range: 4.20 - 10.70 10*3/?L. The reference range was not used to interpret this result as normal/abnormal. RBC (test code = 789-8) 4.93 See_Comment [Automated messa ge] The system which [...] 32.5 g/dL 31.2-35.0 RDW-SD (test code = 20074-7) 48.5 fL 38.5-51.6 RDW-CV (test code = 788-0) 14.5 % 12.1-15.4 PLT (test code = 777-3) 258 See_Comment [Automated [employer]] The system which generated this result transmitted reference range: 150 - 328 10*3/?L. The reference range was not used to interpret this result as normal/abnormal. MPV (test code = 81918-8) 10.5 fL 9.8-13.0 NRBC/100 WBC (test code = 2605871471) 0.0 See_Comment [Automated [employer] ssage] The system which generated this result transmitted reference range: 0.0 - 10.0 /100 WBCs. The reference range was not used to interpret this result as normal/abnormal. NRBC x10^3 (test code = 5331414500) See_Comment [Automated [employer] ssage] The system which generated this result transmitted reference range: 10*3/?L. The reference range was not used to interpret this result as normal/abnormal. GRAN MAT (NEUT) % (test code = 770-8) 58.2 % IMM GRAN % (test code = 2180833777) 0.20 % LYMPH % (test code = 736-9) 26.0 % MONO % (test code = 5905-5) 11.3 % EOS % (test code = 713-8) 3.3 % BASO % (test code = 706-2) 1.0 % GRAN MAT x10^3(ANC) (test code = 8339716457) 3.68 10*3/uL 1.99-6.95 IMM GRAN x10^3 (test code = 5911569502) 0.00-0.06 LYMPH x10^3 (test code = 731-0) 1.64 10*3/uL 1.09-3.23 MONO x10^3 (test code = 742-7) 0.71 10*3/uL 0.36-1.02 EOS x10^3 (test code = 711-2) 0.21 10*3/uL 0.06-0.53 BASO x10^3 (test code = 704-7) 0.06 10*3/uL 0.01-0.09 [facility] SARS-COV-2 ANTIGEN (BINAX NOW)2022-05-19 22:25:00* Test Item Value Reference Range Interpretation Comme nts POCT SARS-COV-2 ANTIGEN (test code = 33219-7) Not Detected Not Detected On board controls acceptable with C Line (test code = 3574) Yes MARIO (test code = MARIO) accurate developme nt and interpretation of all internal controls Lab Interpretation (test code = 46859-9) Normal [facility] URINALYSIS, [id number] 18:16:00 * Test Item Value Reference Range [...] U APPEAR (test code = 3267) clear [facility] URINALYSIS, [id number] 18:16:00 * Test Item Value Reference Range [...] U APPEAR (test code = 3267) clear [facility] URINALYSIS, [id number] 13:34:00 * Test Item Value Reference Range [...] U APPE[facility] (test code = 3267) [facility] [id number] 13:34:00 * Test Item Value Reference Range [...] U APPEAR (test code = 3267) Clear [facility] History and Physical Notes Date/Time Note Provider Source 2024-03-10 09:56:03 UROLOGY HISTORY AND PHYSICAL NOTE Date of Service: 03/10/2024 Chief Complaint: BPH, urine retention History of Present Illness: Nestor Gomez is a 84 year old male with PMH as below , who presents with hx of LUTS, urine retention, for ThuLVP today, admitted Wed for IV Abx as per ID recs . No significant changes to H&P since last encounter Home Medications: Medications Prior to Admission Medication Sig Dispense Refill Last Dose escitalopram oxalate 10 mg tablet Take 1 tablet by mouth in the morning. 03/07/2024 Insulin Asp Prt-Insulin Aspart (NOVOLOG MIX 70-30) 100 unit/mL (70-30) injection inject 20-24 Units under the skin in the morning and 20-24 Units in the evening. inject with meals. IF YOUR BG IS LESS THAN 150, TAKE HALF OF YOUR DOSE. 15 Each 5 03/08/2024 [DISCONTINUED] Vitamin B-12 1,000 mcg tablet Take 1 tablet by mouth in the morning. 03/07/2024 lisinopriL 20 mg tablet Take 1 tablet by mouth in the morning. 90 tablet 1 03/07/2024 furosemide 40 mg tablet Take 1 tablet by mouth every morning AND 0.5 tablets every evening. 135 tablet 1 03/03/2024 apixaban (ELIQUIS) 5 mg tablet Take 1 tablet by mouth in the morning and 1 tablet in the evening. Indications: PAF 60 tablet 11 03/03/2024 [DISCONTINUED] metroNIDAZOLE 1 % gel Apply to area(s) daily. not taking traMADoL 50 mg tablet TAKE 1 TABLET BY MOUTH EVERY 8 HOURS NEEDED Not Taking pantoprazole 40 mg EC tablet Take 1 tablet by mouth in the morning. 90 tablet 0 Not Taking Insulin [facility], Disposable, (BD ULTRAFINE III MINI PEN) 31 gauge x 3/16" Ndle USE DIRECTED TWICE DAILY TO INJECT INSULIN ICD-10 E11.65 200 Each 2 blood sugar diagnostic (ONETOUCH ULTRA TEST) strip Use as directed, once a day to monitor blood glucose for ICD code E11.9 100 Strip 2 Blood-Glucose Meter Kit Use as directed, once a day to monitor blood glucose for ICD code E11.9. One touch Ultra preferred 1 Kit 0 clobetasoL 0.05 % external solution USE ENOUGH TO COVER TO AFFECTED AREA TWO TIMES A DAY NEEDED. 25 mL 1 Not Taking [DISCONTINUED] SERTraline (ZOLOFT) 25 mg tablet Take 1 tablet by mouth in the morning. 90 tablet 1 not taking aspirin (ADULT LOW DOSE ASPIRIN) 81 mg EC tablet Take 1 tablet by mouth in the morning. Not Taking Histories: Past Medical History: Diagnosis Date A-fib Acute pancreatitis 08/19/2020 Anxiety CAD (coronary artery disease) s/p 3 stents Chronic fatigue 10/15/2017 Colon polyps 06/25/2017 COVID-19 07/2020 Degeneration of lumbar intervertebral disc 11/21/2018 Diabetes off metformin Diabetic polyneuropathy associated with type 2 diabetes mellitus 08/20/2015 Overview: Converted from Centricity: Description - PERIPHERAL NEUROPATHY Last Assessment & Plan: ASSESSMENT: The patient's diabetes is improved Diagnostics Reviewed: Lab Results Component Value Date/Time HEMOGLOBIN A1C 6.1 (H) 12/20/2017 0946 CHOLESTEROL 155 01/21/2017 1017 LDL CHOLESTEROL CALCULATED 68 01/21/2017 1017 H Fatty liver 06/25/2017 Gastritis 11/12/2017 History of heart artery stent HTN (hypertension) Low testosterone 06/25/2017 Lumbar radiculopathy 11/21/2018 Migraines 06/25/2017 Myocardial infarction Occlusion and stenosis of unspecified carotid artery 08/20/2015 Overview: Converted from Centricity: Description - CAROTID ARTERY STENOSIS Onychomycosis of toenail 06/04/2019 PRITESH (obstructive sleep apnea) 06/02/2021 Osteoarthritis of left shoulder 05/06/2021 Statin intolerance 08/07/2016 Status post coronary artery stent placement Stroke 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, without long-term current use of insulin 07/07/2018 Vitiligo 06/25/2017 Past Surgical History: Procedure Laterality Date BACK SURGERY CHOLECYSTECTOMY COLONOSCOPY 04/25/2019 Dr. Ramirez DIAGNOSTIC LAPAROSCOPY N/A 12/12/2020 Surgeon: Rita Whitt MD; [facility] ESOPHAGOGASTRODUODENOSCOPY 05/03/2019 Dr. Ramirez EYE SURGERY cataract surgery b/l HAND/FINGER SURGERY UNLISTED HAND/FINGER SURGERY UNLISTED Left HERNIA REPAIR SACROILIAC JOINT INJECTION Left 12/13/2019 Surgeon: Elinor Jimenez MD; [facility] SPINE SURGERY STENT PLACEMENT (SHX) TROCHANTERIC STEROID INJECTION (SHX) Left 12/13/2019 Surgeon: Elinor Jimenez MD; Location: [facility] Family History Problem Relation Age of Onset Coronary Heart Disease Mother Colon Cancer Sister Social History Socioeconomic History Marital status: Spouse name: Not on file Number of children: Not on file Years of education: Not on file Highest education level: Not on file Occupational History Not on file Tobacco Use Smoking status: Never Smokeless tobacco: Never Substance and Sexual Activity Alcohol use: No Drug use: No Sexual activity: Not on file Other Topics Concern Not on file Social History Narrative 06/15/18 - [employer]; newly and moved to [place] from [place] Social Determinants of Health Financial Resource Strain: Low Risk (03/09/2024) Overall Financial Resource Strain (CARDIA) Difficulty of Paying Living Expenses: Not hard at all Food Insecurity: No Food Insecurity (03/09/2024) Hunger Vital Sign Worried About Running Out of Food in the Last Year: Never true Ran Out of Food in the Last Year: Never true Transportation Needs: Not on file Physical Activity: Insufficiently Active (03/09/2024) Exercise Vital Sign Days of Exercise per Week: 4 days Minutes of Exercise per Session: 20 min Stress: Not on file Social Connections: Unknown (03/09/2024) Social Connection and Isolation Panel [NHANES] Frequency of Communication with Friends and Family: More than three times a week Frequency of Social Gatherings with Friends and Family: Not on file Attends [employer] Services: Not on file Active Member of Clubs or Organizations: Not on file Attends Club or Organization Meetings: Not on file Marital Status: Intimate Partner Violence: Not on file Housing Stability: Low Risk (03/09/2024) Housing Stability Vital Sign Unable to Pay for Housing in the Last Year: No Number of Places Lived in the Last Year: 1 Unstable Housing in the Last Year: No Allergies: Allergies Allergen Reactions Canagliflozin Other - See comments Genital mycotic infections Codeine Rash Doxycycline Monohydrate Nausea and/or Vomiting Glimepiride Anxiety Ibuprofen Nausea and/or Vomiting Patient notes hx of stents Abdominal discomfort when taking ibuprofen Wwvpoxr-Qkn-Xbm Reductase Inhibitors Other - See comments Severe myalgia Review of Systems: Constitutional: negative Eyes: negative Ears, nose, mouth, throat: negative Cardiovascular: negative Respiratory: negative Gastrointestinal: negative Genitourinary: (+) per HPI Musculoskeletal: negative Integumentary: negative Neurological: negative Psychiatric: negative Endocrine: negative Hematologic/Lymphatic: negative Allergic/Immunologic: negative, allergies listed above Physical Examination: Blood pressure 124/83, pulse 73, temperature 36.3 ?C (97.4 ?F), temperature source Tympanic, resp. rate 18, height 1.778 m (5' 10"), weight 86.5 kg (190 lb 9.6 oz), SpO2 98%. Constitutional:no acute distress Eyes: normal external eye, conjunctiva and sclera normal Ears, nose, mouth, throat: normocephalic, moist mucous membranes Cardiovascular: regular rate and rhythm Respiratory: respirations unlabored on room air Musculoskeletal: no clubbing, cyanosis or edema Skin: no rashes Neurologic: no focal deficits Psychiatric: appropriate mood and affect Hematologic: no bruising Laboratory: Hemogram Recent Labs 01/10/24 1808 02/14/24 1103 02/22/24 1139 03/08/24 1511 03/09/24 0408 WBC 10.30 9.19 9.02 9.57 8.27 HGB 14.5 15.4 15.9 14.7 14.0 HCT 42.8 47.5 47.9 45.7 42.0 PLT 205 284 300 266 223 Chemistry Recent Labs 01/10/24 1808 02/14/24 1103 02/22/24 1139 03/08/24 1511 03/09/24 0408 03/10/24 0325 NA 136 138 137 138 137 138 K 4.3 5.1* 5.1* 3.9 3.9 3.8 CL 106 103 102 104 108 107 TCO2 20* 26 27 22* 21* 25 AGAP 10 9 8 12 8 6 BUN 21 19 25* 20 18 16 GLU 167* 138* 181* 160* 145* 89 CREAT 0.87 0.86 0.86 0.83 0.80 0.87 CA 8.9 9.3 10.1 9.4 8.7 8.8 EGFR 85.1 85.4 85.4 86.3 87.3 85.1 MG -- -- -- -- 1.9 -- Urinalysis Recent Labs 01/10/24 1833 USPGRAV 1.017 UPH 6.0 UPROTEIN Negative UGLUCOSE Normal UKETONES Negative UBILI Negative UNITRITE Negative ULEUKEST Negative URBC 1 UWBC 2 UBACTERIA Negative Urine Culture Recent Labs 03/06/24 1133 CUR 30,000 CFU/mL Streptococcus mitis/oralis* Liver Function Tests Recent Labs 01/10/24 1808 02/14/24 1103 02/22/24 1139 AST 21 22 19 ALT 16 20 22 ALKPHOS 66 63 60 BILIT 0.8 0.9 0.8 Coagulation Profile There are no current results on file for these tests and/or test for the past 3 mos. Arterial Blood Gas There are no current results on file for these tests and/or test for the past 3 mos. Radiology: Procedure: Assessment and Plan: 84 year old male with . Principal Problem: UTI (urinary tract infection) Active Problems: Benign prostatic hyperplasia, unspecified whether lower urinary tract symptoms present hx of LUTS, urine retention, for ThuLVP today, admitted Wed for IV Vanc as per ID recs . No significant changes to H&P since last encounter Worsening LUTS refractory to medical therapy I counseled patient about options for treating BPH and natural history if not treated ( bladder atony, voiding dysfunction, renal failure, stones recurrent infection, and need for crayon sorting machine feeder catheter) CIC, surgical options: TURP, ThuLVP to alleviate the obstruction and attempt improve LUTS and avoid risk of complications from crayon sorting machine feeder URRUTIA. Possible adverse events recognized with TURP and ThuLVP include and not limited to ( pain, bleeding, infection, injury to surrounding structures, erectile dysfunction, urinary incontinence, retrograde ejaculation, stricture formation, inability to void/retention, prostatic regrowth, need for additional procedures). Trial of medical therapy Tamsulosin 0.4 mg at bedtime. Discussed usage and side-effects including dizziness, orthostatic hypotension ( drop in blood pressure) , falls, fatigue, nasal congestion and retrograde/ anejaculation ejaculation Prostatic Urethral Lift ( UroLift) Robotic Laparoscopic Assisted Simple Prostatectomy for large glands ThuLVP has comparable outcomes when compared with the gold standard TURP, in addition to less risk of bleeding, catheterization time and need for hospitalization. HoLEP : risk of complications mainly damage to bladder ( perforation, , need to reconstruct). pain, bleeding, infection, injury to surrounding structures, need for prolonged catheter , failure to remove all prostate, need for additional procedures Patient may experience urgency, transient CELI/ UUI or BLOSSOM, if persistent may need further medical or surgical therapy ( rare) Patient consented for ThuLVP All questions answered, patient voiced understanding and consented as above Plan: OR today Home later tomorrow Franklyn Bañuelos MD [facility] 2024-03-08 20:41:16 Medicine History & Physical Date of Service: 03/08/2024 Pt presents from: Home CC: Acute complicated UTI History of Present Illness: Nestor Gomez is a 84 year old male with a PMH of HTN, DM II with neuropathy, HLD, CAD s/p PCI, A. Fib on Eliquis, chronic HFpEF, PVD, CVA, migraines, NAFLD, vitiligo, OA, BPH and anxiety who presented as a direct admission for acute complicated UTI management. He is planned for transurethral laser enucleation of prostate on 03/10/2024 with urology. He reports that he developed dysuria earlier this week. He always has nocturia, incomplete bladder emptying and occasional dribbling of urine. He denies fever, chills, pyuria or hematuria. He had a UA/urine culture collected on 03/06/2024. His urine culture grew Streptococcus mitis/oralis. He was direct admitted for IV vancomycin therapy prior to his planned surgery in 2 days. ROS: Pt endorses dysuria, nocturia, ncomplete bladder emptying and dribbling of urine. Pt denies fever / chills / nausea / vomiting / diarrhea / constipation / chest pain / SOB / cough / abdominal pain / hematuria / melena / hematochezia / rashes / suicidal or homicidal ideation / All others negative Review of Hx/Meds: No current facility-administered medications on file prior to encounter. Current Outpatient Medications on File Prior to Encounter Medication Sig Dispense Refill escitalopram oxalate 10 mg tablet Take 1 tablet by mouth in the morning. Insulin Asp Prt-Insulin Aspart (NOVOLOG MIX 70-30) 100 unit/mL (70-30) injection inject 20-24 Units under the skin in the morning and 20-24 Units in the evening. inject with meals. IF YOUR BG IS LESS THAN 150, TAKE HALF OF YOUR DOSE. 15 Each 5 Vitamin B-12 1,000 mcg tablet Take 1 tablet by mouth in the morning. lisinopriL 20 mg tablet Take 1 tablet by mouth in the morning. 90 tablet 1 furosemide 40 mg tablet Take 1 tablet by mouth every morning AND 0.5 tablets every evening. 135 tablet 1 apixaban (ELIQUIS) 5 mg tablet Take 1 tablet by mouth in the morning and 1 tablet in the evening. Indications: PAF 60 tablet 11 metroNIDAZOLE 1 % gel Apply to area(s) daily. traMADoL 50 mg tablet TAKE 1 TABLET BY MOUTH EVERY 8 HOURS NEEDED pantoprazole 40 mg EC tablet Take 1 tablet by mouth in the morning. 90 tablet [address] [facility], Disposable, (BD ULTRAFINE III MINI PEN) 31 gauge x 3/16" Ndle USE DIRECTED TWICE DAILY TO INJECT INSULIN ICD-10 E11.65 200 Each 2 blood sugar diagnostic (ONETOUCH ULTRA TEST) strip Use as directed, once a day to monitor blood glucose for ICD code E11.9 100 Strip 2 Blood-Glucose Meter Kit Use as directed, once a day to monitor blood glucose for ICD code E11.9. One touch Ultra preferred 1 Kit 0 clobetasoL 0.05 % external solution USE ENOUGH TO COVER TO AFFECTED AREA TWO TIMES A DAY NEEDED. 25 mL 1 aspirin (ADULT LOW DOSE ASPIRIN) 81 mg EC tablet Take 1 tablet by mouth in the morning. I have reviewed the patient's home medications PMH: Past Medical History: Diagnosis Date A-fib Acute pancreatitis 08/19/2020 Anxiety CAD (coronary artery disease) s/p 3 stents Chronic fatigue 10/15/2017 Colon polyps 06/25/2017 COVID-19 07/2020 Degeneration of lumbar intervertebral disc 11/21/2018 Diabetes off metformin Diabetic polyneuropathy associated with type 2 diabetes mellitus 08/20/2015 Overview: Converted from Centricity: Description - PERIPHERAL NEUROPATHY Last Assessment & Plan: ASSESSMENT: The patient's diabetes is improved Diagnostics Reviewed: Lab Results Component Value Date/Time HEMOGLOBIN A1C 6.1 (H) 12/20/2017 0946 CHOLESTEROL 155 01/21/2017 1017 LDL CHOLESTEROL CALCULATED 68 01/21/2017 1017 H Fatty liver 06/25/2017 Gastritis 11/12/2017 History of heart artery stent HTN (hypertension) Low testosterone 06/25/2017 Lumbar radiculopathy 11/21/2018 Migraines 06/25/2017 Myocardial infarction Occlusion and stenosis of unspecified carotid artery 08/20/2015 Overview: Converted from Centricity: Description - CAROTID ARTERY STENOSIS Onychomycosis of toenail 06/04/2019 PRITESH (obstructive sleep apnea) 06/02/2021 Osteoarthritis of left shoulder 05/06/2021 Statin intolerance 08/07/2016 Status post coronary artery stent placement Stroke 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, without long-term current use of insulin 07/07/2018 Vitiligo 06/25/2017 PSH: has a past surgical history that includes cholecystectomy; hernia repair; back surgery; hand/finger surgery unlisted; stent placement (shx); eye surgery; spine surgery; esophagogastroduodenoscopy (05/03/2019); colonoscopy (04/25/2019); sacroiliac joint injection (Left, 12/13/2019); trochanteric steroid injection (shx) (Left, 12/13/2019); diagnostic laparoscopy (N/A, 12/12/2020); and hand/finger surgery unlisted (Left). Family Hx: Mom: CAD; Dad: Prostate cancer; Sister: Colon cancer Social History Tobacco Use Smoking status: Never Smokeless tobacco: Never Substance Use Topics Alcohol use: No Drug use: No Current Scheduled Medications Current IV Current Facility-Administered Medications: acetaminophen (TYLENOL) tablet 650 mg, 650 mg, Oral, Q6HPRN, Nora Tracey DO [START ON 03/09/2024] aspirin EC tablet 81 mg, 81 mg, Oral, DAILY, Abdi Velásquez MD dextrose 50 % in water (D50W) injection 25 mL, 25 mL, Slow IV Push, PRN, Nora Tracey DO [START ON 03/09/2024] enoxaparin (LOVENOX) injection 90 mg, 1 mg/kg, Subcutaneous, Q12H, Abdi Velásquez MD [START ON 03/09/2024] escitalopram oxalate (LEXAPRO) tablet 10 mg, 10 mg, Oral, DAILY, Abdi Velásquez MD [START ON 03/09/2024] furosemide (LASIX) tablet 40 mg, 40 mg, Oral, QAM AND [START ON 03/09/2024] furosemide (LASIX) tablet 20 mg, 20 mg, Oral, QPM, Abdi Velásquez MD glucagon HCL injection 1 mg, 1 mg, Intramuscular, PRN, Nora Tracey DO [START ON 03/09/2024] pantoprazole (PROTONIX) EC tablet 40 mg, 40 mg, Oral, DAILY, Abdi Velásquez MD Sliding Scale Insulin - Lispro (HumaLOG), , Subcutaneous, TID MEALS+HS, Nora Tracey DO, 4 Units at 03/08/24 1652 vancomycin (VANCOCIN) 1,000 mg in NaCl 0.9% (NS) 250 mL VIAL-MATE IV piggyback, 1,000 mg, IV Piggyback, Q12H ABX, Nora Tracey DO, Last Rate: 250 mL/hr at 03/08/241951, 1,000 mg at 03/08/241951 [START ON 03/09/2024] vitamin B-12 (CYANOCOBALAMIN) tablet 1,000 mcg, 1,000 mcg, Oral, DAILY, Abdi Velásquez MD Objective: Vitals: Vitals: 03/08/24 1504 03/08/24 1546 03/08/241928 BP: (!) 146/86 132/76 Pulse: 73 60 Resp: 18 Temp: 36.7 ?C (98.1 ?F) 36.5 ?C (97.7 ?F) SpO2: 99% 96% Weight: 86.5 kg (190 lb 9.6 oz) Height: 1.778 m (5' 10") I/O's: Intake/Output Summary (Last 24 hours) at 03/08/20242040 Last data filed at 03/08/2024 1800 Gross per 24 hour Intake -- Output 225 ml Net -225 ml Physical Exam: Constitutional: A&O x3, well-developed, well-nourished, and in no distress. Head: Normocephalic and atraumatic. Eyes: PERRL. Conjunctivae and EOM are normal. Neck: Normal range of motion. Neck supple. No JVD present. Cardiovascular: Normal rate, regular rhythm, normal heart sounds Pulmonary/Chest: Effort normal and breath sounds normal. No respiratory distress. No wheezes, rales or rhonchi. Abdominal: Soft. Bowel sounds are normal. No TTP, non-distended and no masses. No rebound or guarding. Musculoskeletal: Normal range of motion. No edema or tenderness. Lymphadenopathy: No cervical adenopathy. Neurological: A&O x3. No focal deficits. Skin: Skin is warm and dry. No rash noted. No erythema. No pallor. Labs: BMP:BMP NA (mmol/L) Date Value 03/08/2024 138 02/22/2024 137 02/14/2024 138 01/10/2024 136 12/09/2023 140 K (mmol/L) Date Value 03/08/2024 3.9 02/22/2024 5.1 (H) 02/14/2024 5.1 (H) 01/10/2024 4.3 12/09/2023 4.6 CALCIUM (mg/dL) Date Value 03/08/2024 9.4 02/22/2024 10.1 02/14/2024 9.3 01/10/2024 8.9 12/09/2023 9.7 CL (mmol/L) Date Value 03/08/2024 104 02/22/2024 102 02/14/2024 103 01/10/2024 106 12/09/2023 106 BUN (mg/dL) Date Value 03/08/2024 20 02/22/2024 25 (H) 02/14/2024 19 01/10/2024 21 12/09/2023 25 (H) CREATININE (mg/dL) Date Value 03/08/2024 0.83 02/22/2024 0.86 02/14/2024 0.86 01/10/2024 0.87 12/09/2023 0.85 GLUCOSE (mg/dL) Date Value 03/08/2024 160 (H) 02/22/2024 181 (H) 02/14/2024 138 (H) 01/10/2024 167 (H) 12/09/2023 172 (H) CO2 TOTAL (mmol/L) Date Value 03/08/2024 22 (L) 02/22/2024 27 02/14/2024 26 01/10/2024 20 (L) 12/09/2023 23 CBC:CBC WBC (10*3/?L) Date Value 03/08/2024 9.57 RBC (10*6/?L) Date Value 03/08/2024 4.70 PLT (10*3/?L) Date Value 03/08/2024 266 HGB (g/dL) Date Value 03/08/2024 14.7 HCT (%) Date Value 03/08/2024 45.7 BMP:Hepatic Function Panel ALBUMIN (g/dL) Date Value 02/22/2024 4.1 T PROTEIN (g/dL) Date Value 02/22/2024 7.1 TOTAL BILI (mg/dL) Date Value 02/22/2024 0.8 BILI UNCON (mg/dL) Date Value 05/05/2021 0.1 BILI CONJ (mg/dL) Date Value 05/05/2021 0.0 ALT(SGPT) (U/L) Date Value 01/09/2019 17 ALTv (U/L) Date Value 02/22/2024 22 AST(SGOT) (U/L) Date Value 02/22/2024 19 ALK PHOS (U/L) Date Value 02/22/2024 60 Troponin: Recent Labs 01/10/24 1808 TROPNI <0.012 I have reviewed all relevant labs Imaging: No results found. Assessment and plan: Principal Problem: UTI (urinary tract infection) Acute complicated UTI due to Streptococcus mitis/oralis infection: - Continue IV vancomycin. BPH with LUTS: - Planned for transurethral laser enucleation of prostate on 03/10/2024. - Continue Flomax. - Will give one dose of therapeutic Lovenox tomorrow morning, then hold anticoagulation until 24-48 hours after surgery. Will resume Eliquis then. - Management discussed with Dr. Bañuelos, urologist, who agrees with the current plan. Metabolic acidosis: - Mild. Monitor closely. - Resume PO Lasix. HTN: - Resume PO Lasix. DM II with neuropathy: - Continue insulin 70/30 and SSI. HLD: - Continue diet control. He is intolerant to statins. CAD s/p PCI: - Continue aspirin. Paroxysmal A. Fib: - in NSR. Continue therapeutic Lovenox for anticoagulation but will resume Eliquis 24-48 hours post-op. Chronic HFpEF: - Appears euvolemic. - Resume PO Lasix. PVD: - Continue aspirin. History of CVA: - Continue aspirin for secondary prevention of CVA. He is intolerant to statins. - On therapeutic Lovenox but will resume Eliquis 24-48 hours post-op. NAFLD: - Avoid hepatotoxins. Anxiety: - Continue Lexapro. DVT prophylaxis: Therapeutic Lovenox Advanced Care Planning ( Z71.89 ) Above assessment and plan discussed at length with patient, patient expressed full understanding. Questions and concerns addressed I spent 18 minutes discussing the advance care planning. Advanced Directive Maker: Self Level of comfort: N/A Code Status: Full code Non-tobacco user (Z71.6) Disposition: Home IM-INTERNAL MEDICINE STAFF [facility] - Health Procedure Notes Date/Time Note Provider Source 2024-03-10 12:02:37 FULL OPERATIVE NOTE Date of Surgery: 03/10/2024 Faculty physician: Franklyn Bañuelos Anesthesia Type: general - GETA Pre-operative diagnosis: BPH, LUTS Post-operative diagnosis: BPH, urine retention and hx of anticoagulation Procedures: CPT 51364 (Laser vaporization of prostate, including control of postoperative bleeding complete) Indication: Findings: Normal urethra and bladder mucosa. No lesions or masses were seen. The prostate appeared , vascular +++, enlarged -tri -lobar, Clear efflux drained from both ureteral orifices. The bladder had increased capacity, trabeculations ++ and catheter reaction. Complications: none Estimated blood loss: 100 mL Specimens: Ucx Drains: [address]ris catheter with 10cc of sterile water instilled into bulb, CBI Other important information: Thulium Laser,1000 micro meter, end firing , Time : 09:08 mins, Total energy: 08779 Joules , Range: ( 80 Mars bladder neck and median lobe, lateral lobes 120-180) Informed consent was obtained. The patient was taken to the operating room. Time-out procedure was conducted in OR. She was given sedation, and then prepped and draped in the usual standard sterile fashion, and placed in the lithotomy position. 240 mg Gent and Vanc 500 mg IV Dilation of EUM with urethral sounds from 18 to [address] 26 Fr resectoscope to enhance vision. Thulium Laser, 1000 micro meter, side firing was used to create BNI, at left side 2 cm proximal to veru and 2 cm distal to the Left UO , until circular fibers of bladder neck are seen. Same process repeated on the right side. Median lobe and both lateral lobes vaporized down to capsule with good lumen 2 cm proximal to the veru and distal to both U.O's. Vascular prostate ++, hemostasis achieved with bipolar diathermy Both U.O seen at the end of the procedure Open bladder neck was achieved allowing easy movement of the 26 Fr resectoscope into bladder with no resistance. The patient was then extubated and transferred to the recovery room in good condition. A 22 Fr morris was placed into the bladder without difficulty 50 cc balloon . The patient was then extubated and transferred to the recovery room in good condition. Plan: Home later today with catheter RTC next Wednesday03/13/2024 for voiding trial, Uroflow and PVR Oral abx Cephalexin for 5 days Increase fluid intake ( 6 glasses of water ) , a degree of light hematuria and occasional small clots is expected through the catheter. Patient counseled on ER precautions, dark hematuria, lower abdominal pain, large clots, catheter not draining, feeling unwell, fever, nausea and vomiting. Patient will need to attend ER Restart anticoagulants Wednesday03/14/2024 days Franklyn Bañuelos MD [facility] Notes Date/Time Note Provider Source 2024-05-11 14:11:29 Patients spouse notified of results/recommendations, understanding was verbalized via teach back. Clinic number given at this time. IA Vinson RN [facility] 2024-05-11 14:00:05 I agree Stop abx for now Call office with update tomorrow [facility] 2024-05-11 13:23:05 Spoke with spouse, she states patient his developed diarrhea that started yesterday. 1-2 episodes each day. I educated spouse diarrhea is a side effect of Macrobid. Encouraged patient to increase fluid intake and avoid eating spicy or greasy foods. Spouse verbalized understanding and will contact the clinic with any changes in condition or increase frequency of diarrhea. Message routed to provider for notification/ recommendations. IA Vinson RN [facility] 2024-05-11 12:44:39 Nestor Gomez is a 84 year old male Pt is calling stating pt is taking antibiotics and still has 5 days left. Pt is having diarrhea. Pt states it messed up his clothes and was bad yesterday as well. Pt is requesting to speak to a nurse. IA Silva [facility] 2024-05-03 13:00:00 Addended by: FRANKLYN BAÑUELOS on: 05/06/2024 11:19 AM Modules accepted: Orders [facility] 2024-04-28 09:06:25 RX never prescribed by Dr. Bañuelos. IA Haines MA [facility] 2024-04-27 11:03:35 Images from the original note were not included. IA Meyers [facility] 2024-04-25 13:51:31 We spoke with the patient's and informed her that we are unable to prescribe medication prescribed by another doctor; the patient must first be seen and discuss with the provider. Patient has a follow up appointment on 05/03/2024 IA Haines MA [facility] 2024-04-25 10:13:41 Patient's called requesting to discuss potential medication fill that was filled by previous urgent care provider. Unable to confirm the RX from medication list. Please contact patient to discuss request details. IA Mcintosh [facility] 2024-04-14 13:09:14 Attempted to Contact Nora with no answer. Voicemail left at this time. Riddhi Vinson RN [facility] 2024-04-06 11:35:10 Pt was seen in clinic by Dr. Bañuelos 04/05/24. Isaura Michaels RN [facility] 2024-04-04 15:42:48 Nestor Cullen from [facility] calling in to see if the clinic has recicved the Addendum he sent over on 03.23.24 . Please contact Nora at [phone] he mention he will send it again and please call if u have any questions or concerns Corina Marley [facility] 2024-04-04 11:45:00 Images from the original note were not included. Patient has been identified by and name and was provided with cup, antiseptic towelette, and clean catch instructions. 1 urine specimen(s) sent. Unpreserved Urine Culture 1 Aptima tube Other urine [facility] 2024-04-04 11:45:00 Need to start oral abx, short course of cipro, can't take Bactrim due to being on Lisinopril RTC as scheduled [facility] 2024-04-03 16:33:44 Spoke with patients spouse, he is s/p ablation of prostate 03/10/24 states he was seen in clinic last week and started on an antibiotic. Patient stopped taking antibiotic after 3 days because it was causing him to have headaches. Patient recently went out of town for a and is now experiencing blood clots in urine. Encouraged to increase fluid intake and provide urine culture. Instructed to contact clinic if he has increasing blood in urine or has any other concerns. Patient is scheduled follow up appointment this Wednesday and will leave urine sample at lab tomorrow. Will route to provider for notification / recommendations. [facility] 2024-04-03 11:00:19 Spoke with Jocelyn at [facility] needing the last office visit. Last office visit faxed at this time. Maris Haines MA [facility] 2024-03-29 15:32:15 Nestor Gomez is a 84 year old male Nora calling following up on forms, states he is sending them again. Please advise Please contact them if need be at: [phone] Odalys Jacobsen [facility] 2024-03-27 15:17:22 Nestor Gomez is a 84 year old male Nora calling from [facility] he is sending over an addendum request. States the pt is running low on supplies. Please call Nora when the request is received [phone] Nora @ [facility] Danna Harrison V [facility] 2024-03-21 15:46:34 Date of ED Visit? 03/19/2024 High ED Utilization (number of ER visits over past 90 days)? 2 ED Diagnosis? Dysuria Acute cystitis without hematuria Postoperative pain Avoidable ED Visit? no Name of PCP? Evelin Colmenares FNP Date of Last Office Visit? 02/11/2024 Do you have any questions about your d/c instructions? no Are you having any symptoms? no, pt spouse reports pt is doing well and has PCP appt tomorrow. Do you have all of your medications? yes Have you scheduled a follow up appointment with your physician? Yes Do you need assistance with scheduling a follow up appointment?N\\A Do you have transportation to your appointment? Do you have any questions or concerns? no JAMAL SilverN, RN, CCRN [employer]les, Transitions of Care [email or web address] Loren Baez RN [facility] 2024-03-19 02:23:14 Summary: Discharge Images from the original note were not included. Pt given printed and verbal discharge instructions regarding dysuria and UTI, encouraged hydration, Prescriptions provided cefdinir 300 mg capsule HYDROcodone-acetaminophen 5-325 mg tablet phenazopyridine 200 mg tablet Discussed ibuprofen and to take with food to avoid GI distress. Discussed antibiotic therapy and to take until all completed unless adverse reaction occurs - if occurs, discontinue medication and follow up with pcp/seek medical attention Discussed [place] side affects and to avoid driving/operating machinery/or engaging in activities requiring alertness while taking. Pt verbalized understanding of instructions, pt awake alert oriented, resp reg unlabored, skin w/d, color appropriate for race, moves all ext well,pt encouraged to follow up with pcp and or urologist Advised to seek medical attention for new/prolonged/worsening of symptoms, Symptoms No adverse reaction to meds given in ER noted upon discharge PIV d'cd, dressing to site, catheter in tact. Awake, alert oriented, resp reg unlabored, skin w/d, pt leaving amb with steady gait, in no apparent distress, Ayaka Hinton RN [facility] 2024-03-18 18:47:46 Nestor Gomez is a 84 year old male, arrived to ED via personal means with C/O blood in urine since today, burning and pain with urination x several days post op laser ablation of prostate. Reports having difficulty urinating and "getting the pee out" Benjamin Olea RN [facility] 2024-03-14 13:53:02 I agree with PVR and Ucx today If PVR > 100 cc then for CIC, otherwise no need Regular bowel movements Further oral abx sent for 7 days after finishing cephalexin RTC next week with me T [facility] 2024-03-14 13:33:31 Patient's states patient is having issues with burning with urination. Patient had to use a catheter again today due to feeling abdominal pressure and burning with urination. states once they inserted catheter and drained urine patient felt much better. states patient has 2 more doses of oral antibiotic left and should be finished tomorrow morning. states patient denies further clots and that urine is a "dark yellow". Advised that since patient passed his voiding trial he should not need to catheterize to void, especially if he is no longer passing clots. Advised to come to office for urine culture and PVR. states they will come at 4pm today. T Micaela Bo RN [facility] 2024-03-14 09:14:26 Patient's requesting for Micaela (clinical) to call back to answer a few questions. Patient's did not discuss questions and specifically wanted to speak to EVETTE Hinojosa. Please assist T Dana Mcintosh [facility] 2024-03-13 17:21:20 Patient did not return to clinic with his when she came to pickup driver additional catheters. Encouraged to bring patient back to clinic tomorrow for PVR. verbalized understanding. [facility] 2024-03-13 17:04:58 I agree If no hij PVR less than 100 cc, no need for CIC [facility] 2024-03-13 16:05:38 Contacted patient office due to having to use temporary catheters provided to him this morning during voiding trial. Patient had clots blocking his urethra. Patient states after 3 attempts at CIC he was able to achieve drainage. Patient states he then decided to tape the disposable catheter to his leg and placed a bag on it to catch his urine so that he would not use all the catheters he was provided. Patient states his urine is now a clear yellow. Instructed patient that it is not acceptable to use a disposable catheter in this manner. Patient needs to come back up to the office to have an indwelling catheter placed to prevent infection. states patient wishes to just use the catheters provided during CIC education this morning. states she will come back up to the office today to get more catheters. Encouraged patient to drink ample water to keep clots from forming. Patient/ verbalized understanding. Reviewed ED precautions. [facility] 2024-03-13 14:58:17 Patient requesting for Claudia (clinical) to call patient back immediately. Patient attempted to use catheter and it was painful and caused a lot of bleeding. Patient attempted a 2nd time with a new catheter and it caused relief but now patient is out of energy and weak. Please asses. Patient had nurse visit the morning of 03/13/24 [facility] 2024-03-13 10:07:23 TRANSITIONAL CARE MANAGEMENT ASSESSMENT 03/13/2024 Nestor Gomez [id number] Nestor Gomez is a 84 year old /White male was admitted on 03/08/24 to [facility]. He was discharged on 03/10/24 with discharge disposition of HR- Routine Discharge. Admitting Physician: Nora Tracey Discharge Diagnosis: FINAL DIAGNOSIS: Acute complicated UTI due to Streptococcus mitis/oralis infection No linked episodes TCM Enp-xren-xb-face outreach documentation: Discharge Assessment Chart Assessed: 03/13/24 TCM Outreach Completed: 03/13/24 Do you have a few minutes to speak with me about how you are doing at home?: Yes (Spoke with pt's . States pt is at an appointment with Urology nurse.) Discharge Instructions Do you understand your at-home instructions?: Yes (No questions at this time.) Medications Have you filled your prescriptions and do you have them in your home? : Yes Do you know how to take your medications?: Yes Supplies Did you receive applicable home medical supplies/equipment?: N/A Follow Up Appointment Has a follow up appointment been scheduled?: Yes Home Health Assistance Has the home health nurse contacted you since you've been home?: N/A Survey - Recognition Do you have any other questions or concerns at this time?: No Future Appointments: Future Appointments Provider Department Dept Phone 03/21/2024 11:00 AM Evelin Colmenares [facility], [facility] [phone] 04/21/2024 10:30 AM Kimberley Yao AGPCNP [facility] Endocrinology, [facility] [phone] 08/15/2024 11:30 AM Evelin Colmenares [facility], [facility] [phone] 08/18/2024 1:30 PM Kamran Hua MD [facility] Cardiology, [facility] [phone] T [facility] 2024-03-10 15:56:45 Problem: Falls, Risk of Goal: Absence of falls 03/10/2024 1556 by Stephane Tolentino RN Outcome: Adequate for discharge 03/10/2024 1217 by Stephane Tolentino RN Outcome: Progressing as expected Problem: Pain Goal: Control of pain at or below patient's documented comfort goal 03/10/2024 1556 by Stephane Tolentino RN Outcome: Adequate for discharge 03/10/2024 1217 by Stephane Tolentino RN Outcome: Progressing as expected Goal: Reduction in pain sensation 03/10/2024 1556 by Stephane Tolentino RN Outcome: Adequate for discharge 03/10/2024 1217 by Stephane Tolentino RN Outcome: Progressing as expected Problem: Venous Thromboembolism, (actual or risk of) Goal: Absence of venous thromboembolism (Risk) 03/10/2024 1556 by Stephane Tolentino RN Outcome: Adequate for discharge 03/10/2024 1217 by Stephane Tolentino RN Outcome: Progressing as expected Problem: Discharge Planning Goal: Adequate for discharge 03/10/2024 1556 by Stephane Tolentino RN Outcome: Adequate for discharge 03/10/2024 1217 by Stephane Tolentino RN Outcome: Progressing as expected Problem: Glucose control Goal: Glucose level within specified parameters 03/10/2024 1556 by Stephane Tolentino RN Outcome: Adequate for discharge 03/10/2024 1217 by Stephane Tolentino RN Outcome: Progressing as expected [facility] Stephane Tolentino RN [facility] 2024-03-10 13:21:14 Addended by: FRANKLYN BAÑUELOS on: 03/10/2024 01:21 PM Modules accepted: Orders [facility] 2024-03-10 12:17:40 Problem: Falls, Risk of Goal: Absence of falls Outcome: Progressing as expected Problem: Pain Goal: Control of pain at or below patient's documented comfort goal Outcome: Progressing as expected Goal: Reduction in pain sensation Outcome: Progressing as expected Problem: Venous Thromboembolism, (actual or risk of) Goal: Absence of venous thromboembolism (Risk) Outcome: Progressing as expected Problem: Discharge Planning Goal: Adequate for discharge Outcome: Progressing as expected Problem: Glucose control Goal: Glucose level within specified parameters Outcome: Progressing as expected [facility] 2024-03-10 10:54:48 Updated on surgery start time and status. No questions or concerns. Rima Man RN [facility] 2024-03-10 06:07:09 Summary: Vancomycin Monitoring Images from the original note were not included. [facility] Clinical Pharmacist Consult Consulting Service: Vancomycin (Pharmacy to Dose) Pharmacy Vancomycin Therapeutic Monitoring Note Patient Name MRN Sex Unit Nestor Gomez [id number] 1940 male Indication for vancomycin and goal Age Total Body Weight UTI AUC 400-600 84 year old Wt Readings from Last 1 Encounters: 03/09/24 86.5 kg (190 lb 9.6 oz) Primary Physician: Dr. Tracey ID Physician, if following: Duration of Antibiotics: TBD Concurrent Antibiotics: None. Microbiology: Urine culture (03/06/24): 30,000 CFU/mL Streptococcus mitis/oralis Laboratory Data and Vancomycin Dosing CREATININE Date/Time Value Ref Range Status 03/10/2024 03:25 AM 0.87 0.60 - 1.25 mg/dL Final 03/09/2024 04:08 AM 0.80 0.60 - 1.25 mg/dL Final 03/08/2024 03:11 PM 0.83 0.60 - 1.25 mg/dL Final Date CrCl (mL/min) Dosing Regimen and frequency @ Times (mg) Vancomycin Level @ Time (mcg/mL) 03/08/24 68.4 1000 mg IV Q12H @ 195 - 03/09/24 1000 mg IV Q12H @ 0858, 2042 - 03/10/24 65.3 1000 mg IV Q12H scheduled @ 0830 13.0 @ 0325 - - - - Assessment & Plan Plan is to: Con't vancomycin scheduled at a dose of: Vancomycin 1000mg IV Q12H Predicted AUC = 408.4 mcg.h/mL and level = 12.3 Plan to draw next level on: _03/15/2024_ @ _0400_ Thank you for allowing pharmacy to participate in the care of this patient. Please feel free to contact us with any questions or concerns. Eric Brantley RP, PharmD [facility] Department of Pharmacy - [facility] Phone: ADC: [phone] Eric Brantley [facility] 2024-03-10 01:19:40 Problem: Falls, Risk of Goal: Absence of falls Outcome: Progressing as expected Problem: Pain Goal: Control of pain at or below patient's documented comfort goal Outcome: Progressing as expected Goal: Reduction in pain sensation Outcome: Progressing as expected Problem: Venous Thromboembolism, (actual or risk of) Goal: Absence of venous thromboembolism (Risk) Outcome: Progressing as expected Problem: Discharge Planning Goal: Adequate for discharge Outcome: Progressing as expected Problem: Glucose control Goal: Glucose level within specified parameters Outcome: Progressing as expected Elisa Mckinley RN [facility] 2024-03-09 17:28:48 Problem: Falls, Risk of Goal: Absence of falls Outcome: Progressing as expected Problem: Pain Goal: Control of pain at or below patient's documented comfort goal Outcome: Progressing as expected Goal: Reduction in pain sensation Outcome: Progressing as expected Problem: Venous Thromboembolism, (actual or risk of) Goal: Absence of venous thromboembolism (Risk) Outcome: Progressing as expected Problem: Discharge Planning Goal: Adequate for discharge Outcome: Progressing as expected Problem: Glucose control Goal: Glucose level within specified parameters Outcome: Progressing as expected Petra Landa RN [facility] 2024-03-09 13:02:06 Patient was directly admitted to [facility] Med Surg 2210 for preoperative vancomycin. Micaela Bo RN [facility] 2024-03-09 00:27:32 Problem: Falls, Risk of Goal: Absence of falls Outcome: Progressing as expected Problem: Pain Goal: Control of pain at or below patient's documented comfort goal Outcome: Progressing as expected Goal: Reduction in pain sensation Outcome: Progressing as expected Problem: Venous Thromboembolism, (actual or risk of) Goal: Absence of venous thromboembolism (Risk) Outcome: Progressing as expected Problem: Discharge Planning Goal: Adequate for discharge Outcome: Progressing as expected Problem: Glucose control Goal: Glucose level within specified parameters Outcome: Progressing as expected [facility] 2024-03-08 19:39:20 Images from the original note were not included. [facility] Clinical Pharmacist Consult Consulting Service: Vancomycin (Pharmacy to Dose) Pharmacy Vancomycin Therapeutic Monitoring Note Patient Name MRN Sex Unit Nestor Gomez [id number] 1940 male Indication for vancomycin and goal Age Total Body Weight UTI AUC 400-600 84 year old Wt Readings from Last 1 Encounters: 03/08/24 86.5 kg (190 lb 9.6 oz) Primary Physician: Dr. Tracey ID Physician, if following: Duration of Antibiotics: TBD Concurrent Antibiotics: Microbiology: Urine culture (03/06/24): 30,000 CFU/mL Streptococcus mitis/oralis Laboratory Data and Vancomycin Dosing CREATININE Date/Time Value Ref Range Status 03/08/2024 03:11 PM 0.83 0.60 - 1.25 mg/dL Final 02/22/2024 11:39 AM 0.86 0.60 - 1.25 mg/dL Final 02/14/2024 11:03 AM 0.86 0.60 - 1.25 mg/dL Final Date CrCl (mL/min) Dosing Regimen and frequency @ Times (mg) Vancomycin Level @ Time (mcg/mL) 03/08/24 68.4 Vancomycin 1000mg IV Q24h - - - - - - - Assessment & Plan Plan is to: Start vancomycin scheduled at a dose of: Vancomycin 1000mg IV Q12H Plan to draw next random level on: _03/10/2024_ @ _0400_ Thank you for allowing pharmacy to participate in the care of this patient. Please feel free to contact us with any questions or concerns. Darron Ellis RPH, PharmD [facility] Department of Pharmacy - [facility] Phone: ADC: [phone] Darron Ellis [facility] 2024-03-08 18:31:44 Problem: Falls, Risk of Goal: Absence of falls Outcome: Progressing as expected Problem: Pain Goal: Control of pain at or below patient's documented comfort goal Outcome: Progressing as expected Goal: Reduction in pain sensation Outcome: Progressing as expected Problem: Venous Thromboembolism, (actual or risk of) Goal: Absence of venous thromboembolism (Risk) Outcome: Progressing as expected Problem: Discharge Planning Goal: Adequate for discharge Outcome: Progressing as expected Problem: Glucose control Goal: Glucose level within specified parameters Outcome: Progressing as expected [facility] 2024-03-08 11:13:10 Unusual bacteria on ucx Discussed with ID Dr Cleaning, recommend IV Vanc prior to surgery and on induction and 24 after , total three days Unable to admit, no available bed RTC infusion centre tomorrow Orders placed [facility] 2024-03-07 14:42:57 Images from the original note were not included. Notes: Return in about 6 months (around 08/13/2024), or if symptoms worsen or fail to improve. After Visit Summary (Automatic SnapShot taken 02/11/2024) Last Refilled: Insulin Asp Prt-Insulin Aspart (NOVOLOG MIX 70-30) 100 unit/mL (70-30) injection Sig: inject 20-24 Units under the skin in the morning and 20-24 Units in the evening. inject with meals. IF YOUR BG IS LESS THAN 150, TAKE HALF OF YOUR DOSE. Disp: 15 Each Refills: 5 Start: 03/07/2024 Class: eRX Non-formulary For: Controlled type 2 diabetes mellitus with complication, with long-term current use of insulin Last ordered: 4 months ago (10/19/2023) by THIERRY Pimentel To be filled at: [facility]/pharmacy #[id number] [place], [place] - [address] [facility] [address] [facility] [address] Recent Visits Date Type Provider Dept 02/11/24 Office Visit Evelin Colmenares, [employer] [facility] 10/19/23 Office Visit Kimberley Yao AGPCNP [facility] 10/11/23 Office Visit AneEvelin soria, [employer] [facility] 10/01/23 Office Visit AneEvelin soria, [employer] [facility] 09/07/23 Office Visit AneEvelin soria, [employer] [facility] 07/23/23 Office Visit Kimberley Yao AGPCNP [facility] 04/16/23 Office Visit AneEvelin soria, [employer] [facility] 02/15/23 Office Visit AneEvelin soria, [employer] [facility] 01/29/23 Office Visit AneTyra soriaa, [employer] [facility] 01/05/23 Office Visit AneEvelin soria, [employer] [facility] Showing recent visits within past 540 days with a meds authorizing provider and meeting all other requirements Future Appointments Date Type Provider Dept 04/21/24 Appointment Kimberley Yao AGPCNP [facility] Showing future appointments within next 150 days with a meds authorizing provider and meeting all other requirements [facility] [employer] 2024-03-06 15:03:03 Thanks [facility] [employer] 2024-03-06 11:45:00 Images from the original note were not included. Patient has been identified by and name and was provided with cup, antiseptic towelette, and clean catch instructions. 1 urine specimen(s) sent. Unpreserved Urine Culture 1 Aptima tube Other urine [facility] 2024-03-06 10:40:08 Patient's made aware that patient needs to go to the nearest [facility] lab today for urine sample in preparation for surgery on 03/10/24. Order placed, verbalized understanding and states she will take him today. [facility] 2024-02-25 12:23:45 Last Refilled: Disp Refills Start End MAHIN lisinopriL 20 mg tablet 90 tablet 1 09/13/2023 -- -- Sig: Take 1 tablet by mouth in the morning. Sent to pharmacy as: lisinopriL 20 mg tablet (PRINIVIL,ZESTRIL) Class: eRX Route: Oral Order: [id number] Date/Time Signed: 09/13/2023 08:40 E-Prescribing Status: Receipt confirmed by pharmacy (09/13/2023 8:40 AM CDT) Notes: Recent Visits Date Type Provider Dept 02/11/24 Office Visit Evelin Colmenares, [employer] [facility] 10/11/23 Office Visit Evelin Colmenares, [employer] [facility] 10/01/23 Office Visit Evelin Colmenares, [employer] [facility] 09/07/23 Office Visit Evelin Colmenares, [employer] [facility] 04/16/23 Office Visit Evelin Colmenares, [employer] [facility] 02/15/23 Office Visit Evelin Colmenares, [employer] [facility] 01/29/23 Office Visit Evelin Colmenares, [employer] [facility] 01/05/23 Office Visit Evelin Colmenares, [employer] [facility] 11/26/22 Office Visit Evelin Colmenares, [employer] [facility] 09/17/22 Office Visit Evelin Colmenares FNP [facility] Showing recent visits within past 540 days with a meds authorizing provider and meeting all other requirements Future Appointments No visits were found meeting these conditions. Showing future appointments within next 150 days with a meds authorizing provider and meeting all other requirements Dental Sales Representative Visit on 02/22/2024 Component Date Value WBC 02/22/2024 9.02 RBC 02/22/2024 4.98 HGB 02/22/2024 15.9 HCT 02/22/2024 47.9 MCV 02/22/2024 96.2 (H) MCH 02/22/2024 31.9 MCHC 02/22/2024 33.2 RDW-SD 02/22/2024 49.1 RDW-CV 02/22/2024 13.9 PLT 02/22/2024 300 MPV 02/22/2024 10.4 NRBC/100 WBC 02/22/2024 0.0 NRBC x10 3 02/22/2024 <0.01 GRAN MAT (NEUT) % 02/22/2024 67.8 IMM GRAN % 02/22/2024 0.30 LYMPH % 02/22/2024 21.2 MONO % 02/22/2024 8.4 EOS % 02/22/2024 1.9 BASO % 02/22/2024 0.4 GRAN MAT x10 3 (ANC) 02/22/2024 6.11 IMM GRAN x10 3 02/22/2024 0.03 LYMPH x10 3 02/22/2024 1.91 MONO x10 3 02/22/2024 0.76 EOS x10 3 02/22/2024 0.17 BASO x10 3 02/22/2024 0.04 NA 02/22/2024 137 K 02/22/2024 5.1 (H) CL 02/22/2024 102 CO2 TOTAL 02/22/2024 27 AGAP 02/22/2024 8 BUN 02/22/2024 25 (H) GLUCOSE 02/22/2024 181 (H) CREATININE 02/22/2024 0.86 TOTAL BILI 02/22/2024 0.8 CALCIUM 02/22/2024 10.1 T PROTEIN 02/22/2024 7.1 ALBUMIN 02/22/2024 4.1 ALK PHOS 02/22/2024 60 ALTv 02/22/2024 22 AST(SGOT) 02/22/2024 19 eGFR 02/22/2024 85.4 ABO & RH 02/22/2024 A POSITIVE IAT 02/22/2024 Negative Office Visit on 02/22/2024 Component Date Value POCT U SP GRAV 02/22/2024 1.015 POCT PH U 02/22/2024 5.5 POCT U LEUK EST 02/22/2024 negative POCT U NIT 02/22/2024 negative POCT U PROT 02/22/2024 negative POCT U GLU 02/22/2024 negative POCT U KETONE 02/22/2024 negative POCT U UROBILI 02/22/2024 0.2 POCT U BILI 02/22/2024 negative POCT U BLD 02/22/2024 negative POCT U COLOR 02/22/2024 light yellow POCT U APPEAR 02/22/2024 slightly cloudy PVR (URINE VOLUME) 02/22/2024 70 ml Dental Sales Representative Visit on 02/14/2024 Component Date Value TSH 02/14/2024 1.26 CHOL 02/14/2024 208 (H) HDL 02/14/2024 38 (L) HDLC RATIO 02/14/2024 5.5 (H) TRIG 02/14/2024 178 (H) LDL CHOL 02/14/2024 134 VLDL 02/14/2024 36 HGB A1C 02/14/2024 7.6 (H) Office Visit on 02/11/2024 Component Date Value WBC 02/14/2024 9.19 RBC 02/14/2024 4.90 HGB 02/14/2024 15.4 HCT 02/14/2024 47.5 MCV 02/14/2024 96.9 (H) MCH 02/14/2024 31.4 MCHC 02/14/2024 32.4 RDW-SD 02/14/2024 49.1 RDW-CV 02/14/2024 14.0 PLT 02/14/2024 284 MPV 02/14/2024 10.9 NRBC/100 WBC 02/14/2024 0.0 NRBC x10 3 02/14/2024 <0.01 GRAN MAT (NEUT) % 02/14/2024 63.8 IMM GRAN % 02/14/2024 0.40 LYMPH % 02/14/2024 23.0 MONO % 02/14/2024 9.1 EOS % 02/14/2024 3.2 BASO % 02/14/2024 0.5 GRAN MAT x10 3 (ANC) 02/14/2024 5.86 IMM GRAN x10 3 02/14/2024 0.04 LYMPH x10 3 02/14/2024 2.11 MONO x10 3 02/14/2024 0.84 EOS x10 3 02/14/2024 0.29 BASO x10 3 02/14/2024 0.05 NA 02/14/2024 138 K 02/14/2024 5.1 (H) CL 02/14/2024 103 CO2 TOTAL 02/14/2024 26 AGAP 02/14/2024 9 BUN 02/14/2024 19 GLUCOSE 02/14/2024 138 (H) CREATININE 02/14/2024 0.86 TOTAL BILI 02/14/2024 0.9 CALCIUM 02/14/2024 9.3 T PROTEIN 02/14/2024 7.0 ALBUMIN 02/14/2024 4.0 ALK PHOS 02/14/2024 63 ALTv 02/14/2024 20 AST(SGOT) 02/14/2024 22 eGFR 02/14/2024 85.4 NT-proBNP 02/14/2024 1,200 Admission on 01/10/2024, Discharged on 01/10/2024 Component Date Value APPEARANCE 01/10/2024 Clear COLOR 01/10/2024 Yellow PH 01/10/2024 6.0 SP GRAVITY 01/10/2024 1.017 GLU U QUAL 01/10/2024 Normal BLOOD 01/10/2024 Negative KETONES 01/10/2024 Negative PROTEIN 01/10/2024 Negative UROBILIN 01/10/2024 Normal BILIRUBIN 01/10/2024 Negative NITRITE 01/10/2024 Negative LEUK MY 01/10/2024 Negative RBC/HPF 01/10/2024 1 WBC/HPF 01/10/2024 2 BACTERIA 01/10/2024 Negative MUCOUS 01/10/2024 Slight (A) SQ EPITH 01/10/2024 2 HYAL CAST 01/10/2024 2 WBC 01/10/2024 10.30 RBC 01/10/2024 4.48 HGB 01/10/2024 14.5 HCT 01/10/2024 42.8 MCV 01/10/2024 95.5 MCH 01/10/2024 32.4 MCHC 01/10/2024 33.9 RDW-SD 01/10/2024 48.8 RDW-CV 01/10/2024 13.7 PLT 01/10/2024 205 MPV 01/10/2024 10.8 NRBC/100 WBC 01/10/2024 0.0 NRBC x10 3 01/10/2024 <0.01 GRAN MAT (NEUT) % 01/10/2024 74.1 IMM GRAN % 01/10/2024 0.30 LYMPH % 01/10/2024 12.0 MONO % 01/10/2024 12.0 EOS % 01/10/2024 1.2 BASO % 01/10/2024 0.4 GRAN MAT x10 3 (ANC) 01/10/2024 7.63 (H) IMM GRAN x10 3 01/10/2024 0.03 LYMPH x10 3 01/10/2024 1.24 MONO x10 3 01/10/2024 1.24 (H) EOS x10 3 01/10/2024 0.12 BASO x10 3 01/10/2024 0.04 NA 01/10/2024 136 K 01/10/2024 4.3 CL 01/10/2024 106 CO2 TOTAL 01/10/2024 20 (L) AGAP 01/10/2024 10 BUN 01/10/2024 21 GLUCOSE 01/10/2024 167 (H) CREATININE 01/10/2024 0.87 TOTAL BILI 01/10/2024 0.8 CALCIUM 01/10/2024 8.9 T PROTEIN 01/10/2024 6.9 ALBUMIN 01/10/2024 3.9 ALK PHOS 01/10/2024 66 ALTv 01/10/2024 16 AST(SGOT) 01/10/2024 21 eGFR 01/10/2024 85.1 TROPONIN I 01/10/2024 <0.012 LACTIC ACID 01/10/2024 2.20 Influenza A NAAT 01/10/2024 Negative Influenza B NAAT 01/10/2024 Negative RSV by PCR 01/10/2024 Negative SARS-CoV-2 NAAT 01/10/2024 Positive (A) COVID DMT Interpretation 01/10/2024 Value:Molecular NAAT Tests for Active Infection with the SARS-CoV-2 Virus: The current test result is positive for the SARS-CoV-2 virus that causes COVID-19 illness. At the present time in the [place], most circulating SARS-CoV-2 variants are descendants/subvariants of the original Omicron strain. Therefore, for those who have been vaccinated and have no significant underlying comorbidities, illness is likely to be mild. However, individuals over the age of 65 and those with at least one medical condition associated with serious COVID-19 illness are still at a potentially greater risk of developing more serious illness, even if up to date on vaccination. Such conditions include - but are not limited to - cancer, diabetes mellitus, overweight/obesity (with a positive correlation between BMI and risk), chronic kidney disease, chronic liver disease, chronic lung disease, heart disease, and immunocompromised state due to medical condition and/or immunosuppressive medications. [Full list at: https://www.cdc.gov/coronavir us/2019-ncov/azqy-eltpp-lbcrv utions/untscv-nbvp-pipxrsx-co nditions.html] All those who test positive for COVID-19 should isolate from other people for at least 5 full days (day 1 being the first full day after symptom development or the first full day after the date of the initial positive test for asymptomatic patients), as people are likely most infectious during this time period. If one must be around others during this time, one should wear a high-quality mask. Additional isolation steps and precautions should be determined by improvement of symptoms/fever, illness severity and/or underlying immunocompromise per CDC guidance. Regardless of when isolation ends, a high-quality mask is recommended through day 10, though mask wearing may be discontinued earlier after the isolation period ends if the patient has had two negative sequential antigen test results 48 hours apart and is feeling better. Additionally, one should avoid being around others at greater risk for more severe COVID-19 illness until at least day 11. [Refer to https://www.cdc.gov/coronavir us/2019-ncov/your-health/isol ation.html for the latest CDC guidance.] From the onset of symptoms, if any, the results of molecular-based COVID testing such as PCR or Rapid ID Now (but not antigen testing) may remain positive for an extended duration that occasionally may be several weeks, but this does not necessarily imply infectiousness. However, for those that are experiencing rebound symptoms following an initial infection, a positive test may indicate infectiousness beyond the 5-day period from the initial infection. Additionally, viral molecular-based testing (such as PCR and Rapid ID Now) may be needed to determine isolation discontinuation in patients who have been severely ill with COVID-19 and/or are immunocompromised, in which the duration of viral replication may be longer and detectable virus may still be infectious. Interpretation Result Comments: These interpretation comments are based upon the following COVID-19 tests the patient has had at [facility]: molecular nucleic acid amplification tests (NAAT) (specifically PCR testing and Rapid ID Now testing) and antibody tests. It does not take into account antigen testing or any additional testing that a patient may have had outside of the [facility] medical record. COVID Results 01/10/2024 Value:POCT SARS-COV-2 ANTIGEN (no units) Date Value 05/19/2022 Not Detected SARS-CoV-2 NAAT (no units) Date Value 01/10/2024 Positive (A) 01/16/2022 Not Detected 12/10/2019 Not Detected SARS-CoV-2 Rapid ID NOW (no units) Date Value 07/27/2022 Positive (A) 08/29/2021 Not Detected 06/30/2021 Not Detected 05/20/2021 Not Detected 12/09/2020 Not Detected Whole Viral NGS 01/10/2024 [facility] (KP.2.3) Dental Sales Representative Visit on 12/09/2023 Component Date Value NA 12/09/2023 140 K 12/09/2023 4.6 CL 12/09/2023 106 CO2 TOTAL 12/09/2023 23 AGAP 12/09/2023 11 BUN 12/09/2023 25 (H) GLUCOSE 12/09/2023 172 (H) CREATININE 12/09/2023 0.85 CALCIUM 12/09/2023 9.7 eGFR 12/09/2023 86.2 NT-proBNP 12/09/2023 967 MAGNESIUM 12/09/2023 2.0 Dental Sales Representative Visit on 12/01/2023 Component Date Value NT-proBNP 12/01/2023 1,010 NA 12/01/2023 137 K 12/01/2023 4.8 CL 12/01/2023 101 CO2 TOTAL 12/01/2023 28 AGAP 12/01/2023 8 BUN 12/01/2023 32 (H) GLUCOSE 12/01/2023 184 (H) CREATININE 12/01/2023 0.89 CALCIUM 12/01/2023 9.9 eGFR 12/01/2023 85.0 Dental Sales Representative Visit on 10/19/2023 Component Date Value CREAT U 10/19/2023 75.1 MICROALB U 10/19/2023 6 MICROAL/CR 10/19/2023 8 Office Visit on 10/19/2023 Component Date Value POCT HBA1C 10/19/2023 7.5 (A) Dental Sales Representative Visit on 08/27/2023 Component Date Value NA 08/27/2023 138 K 08/27/2023 4.7 CL 08/27/2023 105 CO2 TOTAL 08/27/2023 26 AGAP 08/27/2023 7 BUN 08/27/2023 28 (H) GLUCOSE 08/27/2023 126 (H) CREATININE 08/27/2023 0.95 CALCIUM 08/27/2023 9.5 eGFR 08/27/2023 79.4 NT-proBNP 08/27/2023 908 There may be more visits with results that are not included. Laura Gomes RN [facility] 2024-02-22 11:45:00 Images from the original note were not included. Venipuncture collection performed by clean technique on the right anticubitus. Total of 1 attempts were made. Slight pressure and a bandage/dressing were applied to the site(s). The patient experienced no complications. The following specimens were processed according to instructions and sent to [facility] laboratories per lab order on 02/22/24: LT BLUE SST RED LAV PPT DK GREEN (LiHep) DK GREEN (SodH) CHATTERJEE DK BLUE (K2) DK BLUE (S) ACD Blood Culture NIPT/NTD [facility] 2024-02-22 10:38:37 RTC on 02/22/24 Micaela Bo RN [facility] 2024-02-17 09:20:23 That's ok RTC as scheduled Thanks [facility] 2024-02-17 08:55:23 Images from the original note were not included. Patients notified of results/recommendations, understanding was verbalized via teach back. gave patient results in person. Kamran Hua MD P Cardiology Nurse NT-proBNP done 02/14/2024 noted to be elevated at 1200. Recommend increase Lasix from 40 daily to 60 mg daily. Repeat NT-proBNP/BMP in around 2 weeks time. Orders placed. Estefany Jennings MA [facility] 2024-02-17 08:20:33 Images from the original note were not included. Cardiac clearance obtained. Will route to PSS to schedule patient to discuss surgery. Riddhi Vinson RN [facility] 2024-02-16 21:28:21 Patient was seen by me today. Office note updated indicating CV risk stratification for undergoing prostate surgery. [facility] 2024-02-16 14:00:00 Addended by: KAMRAN HUA on: 02/16/2024 10:50 PM Modules accepted: Orders [facility] 2024-02-14 11:00:00 Images from the original note were not included. Venipuncture collection performed by clean technique on the right anticubitus. Total of 2 attempts were made. Slight pressure and a bandage/dressing were applied to the site(s). The patient experienced no complications. The following specimens were processed according to instructions and sent to [facility] laboratories per lab order on 02/14/2024 : LT BLUE SST 1 RED LAV 1 PPT DK GREEN (LiHep) DK GREEN (SodH) CHATTERJEE DK BLUE (K2) DK BLUE (S) ACD Blood Culture NIPT/NTD [facility] 2024-02-09 16:54:27 Images from the original note were not included. Refill request for Requested Prescriptions Pending Prescriptions Disp Refills FUROSEMIDE 40 mg tablet [Pharmacy Med Name: FUROSEMIDE 40 MG TABLET] 90 tablet 1 Sig: TAKE 1 TABLET BY MOUTH IN THE MORNING. PLEASE DO LABS IN ONE WEEK Cardiovascular: Loop Diuretics [id number]/07/2024 12:25 PM Protocol Details Valid encounter within last 12 months K in normal range and within 180 days Cr in normal range and within 180 days SHIVA 12/01/23 Per lab results 12/01/23, on Lasix 40 mg am and 20 mg pm. Conrado Gonzalez RN [facility] 2024-01-20 17:19:34 Patient has an appointment with Dr. Hua on 02/16/24. Micaela Bo RN [facility] 2024-01-20 14:16:51 I spoke to the pt and assisted with scheduling an appt with Dr Hua to obtain a cardiac clearance. Pt will contact the clinic as soon as the clearance is received to schedule. Lydia Delong [facility] 2024-01-20 12:30:22 We need to get cardiac clearance first and then schedule RTC once obtained, ok to over book Thanks [facility] 2024-01-20 11:54:17 Contacted patient, patient still interested in surgery, but has been to the ER a few times. Please schedule follow up appointment with Dr. Bañuelos next available to discuss surgery set up. (Patient prefers [place] location, is aware that both clinics are working out of [facility] at this time.) Thank you. Micaela Bo RN [facility] 2024-01-12 09:54:39 Patient scheduled. Deyvi De La Rosa [facility] 2024-01-11 16:18:01 Please schedule patient for office visit Maura Drummond MA [facility] 2024-01-11 16:07:56 Routing to [facility] shelby Escobar nurse. Wanda Poon [facility] 2024-01-11 15:49:01 Summary: ED Outreach Post ED Visit Outreach Call Date of ED Visit 01/10/2024 High ED Utilization (number of ER visits over past 90 days) 1 ED Diagnosis Generalized weakness Viral infection Avoidable ED Visit? Y/N [place] of PCP HEATHER Dalton Date of Last Office Visit 10/11/2023 Kevyn. This is (caller name) from [facility]. On behalf of [facility], I am calling to follow up with you about your recent ED visit. Do you have a few minutes to speak with me about how you are doing at home? I would like to go over your discharge instructions with you. (Review instructions outlined in the after visit summary). Are you having any symptoms? Spoke with pt's spouse. States pt is doing "much better". Do you have all of your medications? Pharmacy had to order medication. Have you scheduled a follow up appointment with your physician? No Do you need assistance with scheduling a follow up appointment? Yes Do you have transportation to your appointment? Yes (Message routed to clinic PSS.) AT Km Newton RN [facility] 2024-01-11 12:31:06 Spoke with patient's - patient is covid + and will call back to r/s Mcintosh [facility] 2024-01-11 08:34:57 Nestor Gomez is a 84 year old male Pt spouse called to cancel appointment on 01/11/24 due to not being able to go to [place]. Was requesting to speak with clinic on rescheduling. Please advise. Arie Grissom [facility] 2024-01-10 21:30:00 Pt given printed and verbal discharge instructions regarding weakness Pt verbalized understanding of instructions, pt awake alert oriented, resp reg unlabored, skin w/d, color appropriate for race, moves all ext well,pt encouraged to follow up with pcp Advised to seek medical attention for new/prolonged/worsening of symptoms No adverse reaction to meds given in ER noted upon discharge PIV d'cd, dressing to site, catheter in tact. Awake, alert oriented, resp reg unlabored, skin w/d, pt leaving amb with steady gait, in no apparent distress, Aftab Grigsby RN [facility] 2024-01-10 21:15:00 Pt stated he did not want to wait for the results for Covid test and lactic acid. Provider informed and stated it is okay to discharge. [facility] 2024-01-10 20:47:07 Provider at bedside. Kathy Nieto RN [facility] 2024-01-10 18:52:00 Nurse Report Report given to EVETTE Ugalde. Chief complaint, assessment findings, infusion verify and orders reviewed. Kathy Geronimo RN [facility] 2024-01-10 17:31:41 Patient arrived by private vehicle with complaints of dizziness that began this morning and generalized weakness. Patient states that it feels like the room is spinning. Rayshawn Garcia RN [facility] 2023-12-29 10:52:15 Images from the original note were not included. Riddhi Vinson RN [facility] 2023-12-29 10:16:04 Last office note updated. [facility] 2023-12-29 09:29:38 Patient is scheduled 01/11/24 to discuss surgery. PCP and Cardiac clearance sent this time via telephone encounter. Riddhi Vinson RN [facility] 2023-12-29 09:25:00 PCP and Cardiac clearance sent at this time. Riddhi Vinson RN [facility] 2023-12-28 15:44:18 CT 2022 prostate volume : 73 cc Needs up to date PCP and cardiac clearance prior to RTC next 3 weeks to expedite care and scheduling surgery, may benefit from HoLEP Thanks [facility] 2023-12-20 12:34:03 Left voicemail with recommendations. Also sent a My Chart message. Conrado Gonzalez RN [facility] 2023-12-20 08:50:03 The options will be To take Lasix 60 mg together in the morning or he may consider taking Lasix 40 mg only in the morning and then 20 mg in the afternoon before 2:00 so that his night will not be disturbed. [facility] 2023-12-17 09:58:30 Please review and advise. Thank you Robina Hayward [facility] 2023-12-16 11:53:35 EC/-Tina notified of increased dose of Escitalopram per Provider. All was verbalized understanding. Lina Briseno LVN [facility] 2023-12-16 10:24:07 Images from the original note were not included. Notified patient's spouse per Dr Hua: Kamran Hua MD P Cardiology Nurse Improvement NT-proBNP noted. BMP within acceptable limits. Recommend to continue with the current dose of Lasix/KCl without any further changes. Verbal understanding and stated patient is not getting much sleep through out the night due to constantly having to go to the restroom, any recommendations on dosage change for PM please advise. Gabriella Colorado MA [facility] 2023-12-16 08:30:22 You may continue with 20 mg per day until up coming office visit. T [facility] 2023-12-15 16:13:34 Patient in office with reports of increased depression r/t anniversary of loss of sons. Patient has cont to take Escitalopram 10mg and admitted to taking a 2nd dose this day. Patient is requesting a dose increase if approved/recommended per Provider. He denied SI/HI or thoughts of self harm. Please review and advise. [facility] 2023-12-07 13:42:49 Last Refilled: Disp Refills Start End MAHIN pantoprazole 40 mg EC tablet 90 tablet 0 09/13/2023 -- -- Sig: Take 1 tablet by mouth in the morning. Sent to pharmacy as: pantoprazole 40 mg tablet,delayed release (PROTONIX) Class: eRX Route: Oral Order: [id number] Date/Time Signed: 09/13/2023 08:40 E-Prescribing Status: Receipt confirmed by pharmacy (09/13/2023 8:40 AM CDT) Recent Visits Date Type Provider Dept 10/11/23 Office Visit Evelin Colmenares, [employer] [employer] [facility] 10/01/23 Office Visit Evelin Colmenares, [employer] [facility] 09/07/23 Office Visit Evelin Colmenares, [employer] [facility] 04/16/23 Office Visit Evelin Colmenares, [employer] [facility] 02/15/23 Office Visit Evelin Colmenares, [employer] [facility] 01/29/23 Office Visit Evelin Colmenares, [employer] [facility] 01/05/23 Office Visit Evelin Colmenares, [employer] [facility] 11/26/22 Office Visit Evelin Colmenares, [employer] [facility] 09/17/22 Office Visit Evelin Colmenares, [employer] [facility] Showing recent visits within past 540 days with a meds authorizing provider and meeting all other requirements Future Appointments Date Type Provider Dept 02/11/24 Appointment Evelin Colmenares [facility] Showing future appointments within next 150 days with a meds authorizing provider and meeting all other requirements Francheska Grigsby [facility] 2023-12-07 13:19:32 Nestor Gomez is a 83 year old male Patient spouse is calling states pt was scheduled for surgery 10/22/2022 and canceled due to pt being sick. Pt is still having trouble urinating and would like to proceed scheduling surgery. Spouse would like to know if pt needs to schedule appt with provider first. Please contact pt. [phone] (home) [facility] 2023-12-03 17:25:27 Noted T [facility] 2023-12-03 11:39:47 FYI Laura Ramsay LVN [facility] 2023-12-03 11:32:04 Nestor Gomez is a 83 year old male that was seen in [facility] room on 11/29 for back pain. Was advised to follow up with primary in 7 days. Had an appointment with cardiology 11/30. Patient is not wanting to follow up with primary because he was just seen by a doctor 11/30. wanting to notify the provider of what happened. States he feels back to normal today. Olu Black [facility] 2023-12-02 15:59:10 Images from the original note were not included. Notified patient's spouse Tina per Dr Hua: Kamran Hua MD P Cardiology Nurse NT pro P mildly elevated at 1010 BMP within acceptable limits except elevated blood sugar. Recommended increasing Lasix 40 AM and 20 PM Rpt BMP and NT pro BNP in 7-10 days. Patient's spouse verbal understanding. Gabriella Colorado MA [facility] 2023-12-01 16:00:00 Images from the original note were not included. Venipuncture collection performed by clean technique on the right anticubitus. Total of 1 attempts were made. Slight pressure and a bandage/dressing were applied to the site(s). The patient experienced no complications. The following specimens were processed according to instructions and sent to [facility] laboratories per lab order on 12/01/2023 : LT BLUE SST 1 RED LAV PPT DK GREEN (LiHep) DK GREEN (SodH) CHATTERJEE DK BLUE (K2) DK BLUE (S) ACD Blood Culture NIPT/NTD [facility] 2023-10-19 15:00:00 Images from the original note were not included. Patient has been identified by and name and was provided with cup, antiseptic towelette, and clean catch instructions. 1 urine specimen(s) sent. Unpreserved 1 Urine Culture Aptima tube Other urine 1 URINE TEST 1 EXTRA TUBE [facility] 2023-10-14 11:21:37 Requested Prescriptions Pending Prescriptions Disp Refills FUROSEMIDE 40 mg tablet [Pharmacy Med Name: FUROSEMIDE 40 MG TABLET] 30 tablet 1 Sig: TAKE 1 TABLET BY MOUTH IN THE MORNING. PLEASE DO LABS IN ONE WEEK Patient compliant per [facility] Cardiology Refill Guidelines. Rx sent to: [facility] #[id number] - [place], [place] - [address] AT [facility] Woopie [place] Chyna Mancilla MA [facility] 2023-10-11 11:57:23 Images from the original note were not included. T [facility] 2023-10-11 09:00:00 Addended by: HEATHER COLMENARES DNP-EVELIN SHAIKH on: 10/11/2023 01:29 PM Modules accepted: Level of Service [facility] 2023-10-08 10:48:11 Received refill request for: Medication: Requested Prescriptions Pending Prescriptions Disp Refills KCL 10 mEq tablet [Pharmacy Med Name: POTASSIUM CL ER 10 MEQ TABLET] 90 tablet 0 Sig: TAKE 1 TABLET BY MOUTH IN THE MORNING. PLEASE DO LABS IN ONE WEEK Requested Prescriptions Pending Prescriptions Disp Refills KCL 10 mEq tablet [Pharmacy Med Name: POTASSIUM CL ER 10 MEQ TABLET] 90 tablet 0 Sig: TAKE 1 TABLET BY MOUTH IN THE MORNING. PLEASE DO LABS IN ONE WEEK Endocrinology: Minerals - Potassium Supplementation Passed - 10/07/2023 8:32 AM Passed - Valid encounter within last 12 months Recent Visits Date Type Provider Dept 08/20/23 Office Visit Kamran Hua MD [facility] 03/10/23 Office Visit Kamran Hua MD [facility] Showing recent visits within past 365 days and meeting all other requirements Future Appointments Date Type Provider Dept 12/09/23 Appointment Kamran Hua MD [facility] 03/09/24 Appointment Kamran Hua MD [facility] Showing future appointments within next 365 days and meeting all other requirements Medication Last filled: 09/15/2023 Provider Note: Outside records reviewed. NM stress test dated 03/20/2020 reviewed shows negative for any reversible ischemia. LV function normal. ALIA dated reviewed normal bilaterally. Carotid ultrasound dated reviewed shows no significant obstructive disease bilateral ICA. Vertebral arteries not well visualized. Office note dated 04/10/2021 reviewed no significant changes made in his medications. MAR reviewed. At the time patient was on aspirin 81 daily, lisinopril 20 daily, Plavix 75 daily. Recent Visits Date Type Provider Dept 08/20/23 Office Visit Kamran Hua MD [facility] 03/10/23 Office Visit Kamran Hua MD [facility] Showing recent visits within past 365 days and meeting all other requirements Future Appointments Date Type Provider Dept 12/09/23 Appointment Kamran Hua MD [facility] 03/09/24 Appointment Kamran Hua MD [facility] Showing future appointments within next 365 days and meeting all other requirements Refilled approval sent to: Pharmacy: [id number] - [place], [place] - [address] [facility] [address] [facility] [id number] [facility] - [address] [place], [place] [address] [facility] [address] Refilled based on current protocol and last office visit note. Mercy Sue 10/08/2023 10:50 AM Dental Sales Representative Visit on 08/27/2023 Component Date Value NA 08/27/2023 138 K 08/27/2023 4.7 CL 08/27/2023 105 CO2 TOTAL 08/27/2023 26 AGAP 08/27/2023 7 BUN 08/27/2023 28 (H) GLUCOSE 08/27/2023 126 (H) CREATININE 08/27/2023 0.95 CALCIUM 08/27/2023 9.5 eGFR 08/27/2023 79.4 NT-proBNP 08/27/2023 908 Hospital Outpatient Visit on 08/19/2023 Component Date Value Height 08/19/2023 70 Weight 08/19/2023 190 Systolic BP 08/19/2023 135 Diastolic BP 08/19/2023 85 Heart Rate 08/19/2023 80 EF(Teich) 08/19/2023 60.50 LVIDD 08/19/2023 4.80 LVIDS 08/19/2023 3.20 Left Ventricular End Sys* 08/19/2023 42.1 Left Ventricular End Agustina* 08/19/2023 106.5 IVS 08/19/2023 1.05 LVPWD 08/19/2023 1.23 LVOT diameter 08/19/2023 2.15 LVOT area 08/19/2023 3.60 FS 08/19/2023 32 LA size 08/19/2023 4.3 RVOT diameter 08/19/2023 2.46 ACS 08/19/2023 1.22 Ao root diam 08/19/2023 3.10 Aortic root 08/19/2023 3.1 Ao root annulus 08/19/2023 3.1 PW 08/19/2023 1.23 EF - 2D 08/19/2023 60.50 Interventricular Septum * 08/19/2023 1.05 BSA 08/19/2023 2.04 E wave decelartion time 08/19/2023 0.23 MV Peak E Kisha 08/19/2023 125.7 MR max PG 08/19/2023 84.70 MR max kisha 08/19/2023 460.00 Mr max kisha 08/19/2023 460.0 MV Prop V 08/19/2023 50.50 Tapse 08/19/2023 2.34 TR Peak Kisha 08/19/2023 218.2 Triscuspid Valve Regurgi* 08/19/2023 19.0 LVOT stroke volume 08/19/2023 88.10 LVOT peak kisha 08/19/2023 116.2 LVOT mn grad 08/19/2023 2.5 AV LVOT peak gradient 08/19/2023 5.4 LVOT peak VTI 08/19/2023 24.3 LV V1 mean 08/19/2023 72.80 Aortic valve mean veloci* 08/19/2023 83.9 Ao peak kisha 08/19/2023 125.3 Ao VTI 08/19/2023 27.8 AV area by cont VTI 08/19/2023 3.2 AV area peak kisha 08/19/2023 3.4 Ao max PG 08/19/2023 6.30 AV peak gradient 08/19/2023 6.3 AV valve area 08/19/2023 3.20 AV mean gradient 08/19/2023 3.2 RVOT area 08/19/2023 4.75 Dental Sales Representative Visit on 08/19/2023 Component Date Value CHOL 08/19/2023 203 (H) HDL 08/19/2023 29 (L) HDLC RATIO 08/19/2023 7.0 (H) TRIG 08/19/2023 258 (H) LDL CHOL 08/19/2023 122 VLDL 08/19/2023 52 NA 08/19/2023 138 K 08/19/2023 4.5 CL 08/19/2023 106 CO2 TOTAL 08/19/2023 28 AGAP 08/19/2023 4 BUN 08/19/2023 23 GLUCOSE 08/19/2023 97 CREATININE 08/19/2023 0.75 CALCIUM 08/19/2023 9.6 eGFR 08/19/2023 89.5 NT-proBNP 08/19/2023 1,260 Office Visit on 07/23/2023 Component Date Value POCT HBA1C 07/23/2023 7.0 (A) [facility]cy Sue [facility] 2023-09-27 14:26:18 Spoke to Patients and she states that when patient takes Cymbalta he has nightmares. She stated that Patient does not take the medication regularly. She reports having an appointment for him on Wednesday the . Advised Patient to keep appointment. Laura Gomes RN [facility] 2023-09-27 14:25:12 FYRosalina Called and scheduled appointment for 10/01/23. Patient is taking escitalopram 10 mg 1 daily, he should not be taking both esitalopram and duloxetine., patient is not taking either one of them until he comes in and talks to provider. [facility] 2023-09-27 13:25:48 Copied from [facility] #[id number]. Topic: Appointment - Reschedule Appointment >> Sep 27, 2023 1:23 PM Patient Sql Database Programmer wrote: Nestor Gomez is a 83 year old male Pts spouse is calling requesting for a nurse to call her regarding the pt having nightmares due to his medication. Please advise. [phone] (home) Judith Jarrett [facility] 2023-09-15 09:27:59 Due for repeat K+ labs prior to 3mo refills can be ok'd. Arben Oconnor MA [facility] 2023-09-01 10:22:11 Addended by: CONRADO GONZALEZ RN on: 09/01/2023 10:22 AM Modules accepted: Orders [facility] 2023-09-01 10:19:37 Images from the original note were not included. Patient's spouse notified of results. Verbalized understanding of results/recommendations via teach back. Repeat lab orders placed. No further questions or concerns at this time. Kamran Hua MD STAFF Signed Yesterday Improvement in BNP noted currently at 908. BMP within normal limits. Recommended to reduce Lasix from 40 to 20 mg daily and to continue KCl 10 daily. Repeat BMP/NT-proBNP in 2 weeks time [facility] 2023-08-31 22:55:22 Improvement in BNP noted currently at 908. BMP within normal limits. Recommended to reduce Lasix from 40 to 20 mg daily and to continue KCl 10 daily. Repeat BMP/NT-proBNP in 2 weeks time [facility] 2023-08-31 14:59:45 Spoke with patient's . She wanted to know the plan for the furosemide? Dr. Hua still working on the result notes. Patient's also asking about if patient needs to stay on the lisinopril? She states his BP has been stable while on the furosemide. She states it's been a little lower but not much. Advised her to continue to monitor BP. Per note on 08/20/23 "Recommended starting Lasix 40 mg daily along with KCl 10 mg daily recommended to repeat labs in 1 week. Based upon which most likely will cut down the dose of Lasix to 20 mg based upon the labs" Conrado Gonzalez RN [facility] 2023-08-30 15:54:07 Copied from [facility] #[id number]. Topic: Clinical - Paperwork/Forms >> Aug 30, 2023 3:53 PM Patient Sql Database Programmer wrote: Patient calling stating she had a missed call regarding patient lab results. Please advise Saba Evans [facility] 2023-08-30 13:10:56 Copied from [facility] #[id number]. Topic: Clinical - Order >> Aug 30, 2023 1:10 PM Patient Sql Database Programmer wrote: Patient calling needing to speak with nurse regarding lab results.Please advise [facility] 2023-08-27 10:15:00 Images from the original note were not included. Venipuncture collection performed by clean technique on the right anticubitus. Total of 1 attempts were made. Slight pressure and a bandage/dressing were applied to the site(s). The patient experienced no complications. The following specimens were processed according to instructions and sent to [facility] laboratories per lab order on 08/27/2023: LT BLUE SST 1 RED LAV PPT DK GREEN (LiHep) DK GREEN (SodH) CHATTERJEE DK BLUE (K2) DK BLUE (S) ACD Blood Culture NIPT/NTD [facility] 2023-08-19 14:30:00 Images from the original note were not included. Venipuncture collection performed by clean technique on the left anticubitus. Total of 1 attempts were made. Slight pressure and a bandage/dressing were applied to the site(s). The patient experienced no complications. The following specimens were processed according to instructions and sent to [facility] laboratories per lab order on today: LT BLUE SST RED LAV PPT Light GREEN (LiHep) 1 DK GREEN (SodH) CHATTERJEE DK BLUE (K2) DK BLUE (S) ACD Blood Culture NIPT/NTD [facility] 2023-08-18 15:47:19 Patient has been scheduled for echo and appointment on Wednesday . [facility] Conrado Gonzalez RN [facility] 2023-08-18 12:25:39 Patient's spouse notified. She is agreeable to plan. They will have the blood work done today. Will speak with PSS to see if echocardiogram can be scheduled prior to patient's office appointment. . [facility] Conrado Gonzalez RN [facility] 2023-08-17 21:48:13 Orders for labs BMP/NT-proBNP placed and also echocardiogram. Please see if the patient can come this Wednesday at 1 PM preferably after completion of the labs in the morning and echocardiogram if possible. Patient had a coronary angiogram done dated 06/10/2022 which showed patent stents with no significant worsening obstructive coronary disease noted. [facility] 2023-08-17 16:28:36 Spoke with patient and his spouse. They state patient has been having shortness of breath with exertion. States the symptoms started approximately 2 months ago, patient feels has been worsening over time. He currently feels short of breath walking to the mailbox and back, which is down a long driveway, and he used to be able to do without getting winded. Patient denies chest pain. The dizziness has been "going on for a while" on and off. Per spouse, it is primarily when patient stands from sitting. They are unsure if it is related to his heart. No other symptoms reported. Patient keeps a BP log, His BP has been averaging 130s/80s and HR 60s. Informed patient and spouse will route to Dr. Hua to see if patient should be seen sooner that 10/14/23 CONSULTANT Conrado Gonzalez RN [facility] 2023-08-17 12:28:32 Nestor Gomez is a 83 year old male of patient is calling in regards to the patient having trouble while breathing and dizziness. States patient currently has 7 stints. Only wants to see Dr. Hua, next available was not until 10/14/2023, did book them for this and also added them to the waitlist. Please advise and contact her at [phone] (home) [place] Jarquin [facility] 2023-02-08 17:10:12 Formatting of this n ote might be different from the original. Pt discharged with diagnosis of flank pain and chronic bilateral low back pain with R sided sciatica. Printed and verbal instructions reviewed with and given to patient. Prescriptions given x 2. Pt verbalized understanding of teaching, medications, and recommended follow-up. Denies questions or concerns at this time. Pt ambulatory with cane at discharge. Appears in no apparent distress. Accompanied by . Eugenie Rockwell RN [facility] 2023-02-08 15:41:56 Formatting of this n ote might be different from the original. Complaining of sciatic type pain to left leg for "a long time". Pain starts in left hip and radiates down left leg. States its getting worse. Took tylenol today. Sirisha Helms RN [facility] 2023-01-22 13:22:35 Formatting of this n ote might be different from the original. Patient notified. Maris Haines MA [facility] 2023-01-21 11:16:41 Formatting of this n ote might be different from the original. Please inform patient that Dr. Bañuelos is OOO until 02/17/2023. He should expect to be contacted to reschedule following his return FROZEN PIE MAKER-FAMILY MIDLEVEL PROVIDER [facility] 2023-01-20 15:58:44 Formatting of this n ote might be different from the original. Spoke with patient via phone surgery cancelled in October 2022. Would like to reschedule surgery Please advice. [facility] 2023-01-20 15:22:58 Formatting of this n ote might be different from the original. Patient and spouse walked in to clinic [...] him. The best call back number is [phone]. Germania Henriquez MA [facility]
[2024-05-11] MEDS ORDERED: NA CHLORIDE 0.9% 500 ML ONE (17:38)
[2024-05-11 18:08] LABS: PT Prothrombin Time 14.1 SECONDS (9.4-12.5); Protime INR 1.27
[2024-05-11 18:11] LABS: Absolute Basophils 0.1 K/uL (0-0.5); Absolute Eosinophils 0.1 K/uL (0-0.5); Absolute Lymphocytes (CBC) 1.6 K/uL (0.7-4.9); Absolute Monocytes 1.7 K/uL (0.1-1.3); Absolute Neutrophil 11.4 K/uL (1.8-8.0); Basophils % 0.3 % (0-1.3); Eosinophils % 0.5 % (0-4.4); Hematocrit 41.4 % (39.6-49.0); Hemoglobin 13.8 g/dL (13.6-17.9); Lymphocytes % 10.5 % (15.3-44.8); MCHC 33.3 g/dL (32.0-36.0); MCV 93.1 fL (80-100); MPV 8.2 fL (7.6-11.3); Monocytes % 11.3 % (3.3-12.3); Neutrophils % 77.4 % (41.7-73.7); Nucleated Red Blood Cells % 0.1 % (0-0); Platelets 259 thou/uL (152-406); RBC Red Blood Cell Count 4.45 M/uL (4.33-5.43); Red Cell Distribution Width 14.9 % (12.1-15.2)
[2024-05-11 18:18] LABS: Specific Gravity 1.022 (1.005-1.030); Sqamous Epithelial <5 /HPF (None Seen); Urine Bacteria <20 /HPF (<20); Urine Bilirubin NEGATIVE (Negative); Urine Blood 1+ (Negative); Urine Clarity Extremely Turbid (Clear); Urine Color Light-Yellow (Yellow); Urine Culture Reflex Order REFLEXED; Urine Glucose 4+ (Over) (Negative); Urine Ketones TRACE (Negative); Urine Microscopic Reflex YN ORDER UMIC; Urine Mucus Slight /HPF (None Seen); Urine Nitrite NEGATIVE (Negative); Urine Protein 1+ (Negative); Urine RBC 21-50 /HPF (None Seen); Urine Urobilinogen Normal (Normal); Urine WBC >50 /HPF (<5); Urine pH 5.5 (5.0-7.0)
[2024-05-11 18:24] LABS: SARS-CoV-2 Antigen CONTROL BLUE LINE VIS/BG OK; SARS-CoV-2 Antigen Rapid Res Negative (Negative)
[2024-05-11 18:32] LABS: ALT/SGPT 19 U/L (16-61); AST/SGOT 11 U/L (15-37); Albumin 2.9 g/dL (3.4-5.0); Albumin/Globulin Ratio 0.7 (1.1-1.8); Alkaline Phosphatase 72 U/L (45-117); Anion Gap 13.1 mEq/L (5.0-15.0); BUN Blood Urea Nitrogen 27 mg/dL (7-18); Bicarbonate 21 mEq/L (21-32); Bilirubin Total 0.4 mg/dL (0.2-1.0); Globulin 3.9 g/dL (2.3-3.5); Glomerular Filtration Rate 51 ml/min (=/>90); Glucose Level 376 mg/dL (74-106); Magnesium 1.9 mg/dL (1.6-2.4); NT PRO-BNP 2040 pg/mL (<450); Potassium 4.1 mEq/L (3.5-5.1); Protein, Total 6.8 g/dL (6.4-8.2); Sodium Level 134 mEq/L (136-145)
[2024-05-11 18:35] LABS: Bilirubin Direct < 0.2 mg/dL (0-0.2); Bilirubin Indirect, Calculated 0.2 mg/dL (0.2-0.8)
--- NOTE | 2024-05-11 18:36 | RAD REPORT ---
EXAM: CT brain without contrast HISTORY: Dizziness;Trauma COMPARISON: None TECHNIQUE: Multiple contiguous axial images were obtained and a CT of the brain without contrast. Sag ittal and coronal reformats were performed. One or more of the following dose reduction techniques were used: Automated exposure control, adjust ment of the mA and/or kV according to patient size, and/or iterative reconstruction. FINDINGS: No evidence of hydrocephalus, intracranial hemorrhage, or extra-axial fluid collection. The brain is normal in morphology. No evidence of midline shift or areas of brain edema. The calvarium is intact. The visualized paranasal sinuses and mastoid air cells are essentially clear . IMPRESSION: No evidence of acute intracranial abnormality. EXAM: CT of the cervical spine without contrast HISTORY: Neck pain, injury Dizziness;Trauma TECHNIQUE: Multiple contiguous axial images were obtained in a CT of the cervical spine without contr ast. Sagittal and coronal reformats were performed. FINDINGS: The vertebral bodies demonstrate normal height and alignment. No evidence of acute fracture or subluxation.. Postsurgical fusion is present spanning C5-7. No prevertebral soft tissue swelling is seen. The posterior facets are well aligned. Normal alignment of the skull base with the cervical spine is seen. The lung apices are unremarkable. IMPRESSION: No evidence of acute osseous abnormality of the cervical spine. Postsurgical fusion present.
--- NOTE | 2024-05-11 18:40 | RAD REPORT ---
EXAM: CT CHEST, ABDOMEN AND PELVIS WITH CONTRAST CLINICAL INDICATION: Pain;Trauma TECHNIQUE: CT chest, abdomen and pelvis was performed, following the administration of contrast, as p er department protocol. Axial, sagittal and coronal reconstructions were obtained. One or more of the following dose reduction techniques were used: Automated exposure control, adjustment of the mA a nd/or kV according to patient size, and/or iterative reconstruction. Unless otherwise specified, incidental findings do not require dedicated imaging follow-up. COMPARISON: No prior exam. FINDINGS: LUNGS: No evidence of airspace or interstitial process. No nodules. PLEURA: No pleural effusion. No pneumothorax. MEDIASTINUM AND LYMPH NODES: No mediastinal mass or fluid collection. Normal size mediastinal, hilar, and axillary lymph nodes. OSSEOUS STRUCTURES AND CHEST WALL: Intact. LIVER: Normal in size and contour. No focal lesion or biliary dilatation. Cholecystectomy clips. PANCREAS: No mass, ductal dilation, or josue-pancreatic fluid. SPLEEN: Normal size. No focal lesion. ADRENALS: Normal; no mass. KIDNEYS: Right kidney is in the pelvis. Kidneys are otherwise unremarkable. URINARY BLADDER: Normal contour. GASTROINTESTINAL TRACT: No bowel obstruction, free air, significant free fluid or abscess. APPENDIX: Normal appendix. LYMPH NODES: No lymphadenopathy. MUSCULOSKELETAL: No acute or suspicious osseous abnormality. OTHER: Prostate gland is enlarged and projects into the bladder base. IMPRESSION: No acute abnormalities seen in the chest, abdomen or pelvis. Significant prostate enlargement.
[2024-05-11] MEDS ORDERED: NA CHLORIDE 0.9% 1,000 ML ONE ×2 (18:41→20:21)
--- NOTE | 2024-05-11 18:53 | RAD REPORT ---
EXAMINATION: XR PELVIS CLINICAL INDICATION: PAIN TECHNIQUE: AP Pelvis examination was obtained. COMPARISON: No prior exam. FINDINGS: Mild osteophytic changes in both hips. No fracture or dislocation. No AVN.
--- NOTE | 2024-05-11 18:53 | RAD REPORT ---
EXAMINATION: XR LEFT HIP CLINICAL INDICATION: . PAIN TECHNIQUE: Multiple views of the left hip were obtained. COMPARISON: No prior exam. FINDINGS: Mild osteoarthritis affects the left hip. No acute fracture, dislocation or AVN.
--- NOTE | 2024-05-11 18:56 | RAD REPORT ---
EXAMINATION: XR LEFT FEMUR CLINICAL INDICATION: . PAIN TECHNIQUE: Multiple views of the left femur were obtained. COMPARISON: No prior exam. FINDINGS: No acute fracture or dislocation.
--- NOTE | 2024-05-11 18:57 | RAD REPORT ---
EXAMINATION: ONE VIEW CHEST XR CLINICAL INDICATION: DIZZY;Trauma TECHNIQUE: Frontal chest projection is submitted. Examination is limited by patient positioning and t echnique. COMPARISON: 04/14/2023 FINDINGS: The lungs are well inflated and clear. The heart is upper limit of normal in size. No displaced fract ures identified. IMPRESSION: No acute intrathoracic abnormalities.
--- NOTE | 2024-05-11 19:53 | EDPHYS ---
Physician Documentation [facility] Name: Dave Moreland Age: 84 yrs Sex: Male : 1940 Arrival Date: 05/11/2024 Time: 17:11 Bed 13 Private MD: ED Physician Jalil Silva HPI: 05/11 17:38 This 84 yrs old Male presents to ER via Wheelchair with complaints of Fall jaxon Injury, Dizziness. Historical: - Allergies: 17:33 Codeine; kc6 - PMHx: 17:33 prostate problems; Myocardial infarction; Hypertension; Hyperlipidemia; GERD; Diabetes kc6 - NIDDM; Atrial fibrillation; Congenital heart disease; Gastroesophageal reflux disease; - PSHx: 17:33 cardiac stent x 7; Cholecystectomy; kc6 - Immunization history:: Adult Immunizations up to date. - Infectious Disease History:: Denies. - Social history:: Smoking status: Patient denies any tobacco usage or history of. ROS: 17:41 Constitutional: Negative for fever, chills, and weight loss, Eyes: Negative for injury, jaxon pain, redness, and discharge, ENT: Negative for injury, pain, and discharge, Neck: Negative for injury, pain, and swelling, Cardiovascular: Negative for chest pain, palpitations, and edema, Respiratory: Negative for shortness of breath, cough, wheezing, and pleuritic chest pain, Abdomen/GI: Negative for abdominal pain, nausea, vomiting, diarrhea, and constipation, Back: Negative for injury and pain, : Negative for injury, bleeding, discharge, and swelling, Skin: Negative for injury, rash, and discoloration, Psych: Negative for depression, anxiety, suicide ideation, homicidal ideation, and hallucinations, Allergy/Immunology: Negative for hives, rash, and allergies, Endocrine: Negative for neck swelling, polydipsia, polyuria, polyphagia, and marked weight changes, Hematologic/Lymphatic: Negative for swollen nodes, abnormal bleeding, and unusual bruising, 17:41 MS/extremity: Positive for pain, tenderness, of the left iliac crest and left hip, 17:41 Neuro: Positive for dizziness, Exam: 17:41 Constitutional: This is a well developed, well nourished patient who is awake, alert, jaxon and in no acute distress. Head/Face: Normocephalic, atraumatic. Eyes: Pupils equal round and reactive to light, extra-ocular motions intact. Lids and lashes normal. Conjunctiva and sclera are non-icteric and not injected. Cornea within normal limits. Periorbital areas with no swelling, redness, or edema. ENT: Nares patent. No nasal discharge, no septal abnormalities noted. Tympanic membranes are normal and external auditory canals are clear. Oropharynx with no redness, swelling, or masses, exudates, or evidence of obstruction, uvula midline. Mucous membranes moist. Neck: Trachea midline, no thyromegaly or masses palpated, and no cervical lymphadenopathy. Supple, full range of motion without nuchal rigidity, or vertebral point tenderness. No Meningismus. Chest/axilla: Normal chest wall appearance and motion. Nontender with no deformity. No lesions are appreciated. Cardiovascular: Regular rate and rhythm with a normal S1 and S2. No gallops, murmurs, or rubs. Normal PMI, no JVD. No pulse deficits. Respiratory: Lungs have equal breath sounds bilaterally, clear to auscultation and percussion. No rales, rhonchi or wheezes noted. No increased work of breathing, no retractions or nasal flaring. Back: No spinal tenderness. No costovertebral tenderness. Full range of motion. Male : Normal genitalia with no discharge or lesions. Skin: Warm, dry with normal turgor. Normal color with no rashes, no lesions, and no evidence of cellulitis. Psych: Awake, alert, with orientation to person, place and time. Behavior, mood, and affect are within normal limits. 17:41 Abdomen/GI: Inspection: abdomen appears normal, Bowel sounds: normal, in all quadrants, Palpation: mild abdominal tenderness, in the left lower quadrant, Liver: no appreciated palpable abnormalities, Hernia: not appreciated, 17:41 Musculoskeletal/extremity: ROM: limited active range of motion due to pain, limited passive range of motion due to pain, in the left leg, Circulation is intact in all extremities. Sensation intact. Compartment Syndrome exam of affected extremity: is normal. Weight bearing: is unable to bear weight, 17:50 ECG was reviewed by the Attending Physician. jaxon Vital Signs: 17:32 BP 118 / 66; Pulse 105; Resp 18 S; Temp 98.5(O); Pulse Ox 95% on R/A; Weight 83.91 kg kc6 (R); Height 5 ft. 10 in. (R); Pain 8/10; 19:04 BP 124 / 74; Pulse 83; Resp 18 S; Pulse Ox 100% on R/A; kc6 20:30 BP 135 / 70; Pulse 87; Resp 16; Temp 98.3; Pulse Ox 97% ; dd2 22:30 BP 126 / 74; Pulse 84; Resp 16; Pulse Ox 98% ; dd2 17:32 Body Mass Index 26.54 (83.91 kg, 177.8 cm) kc6 17:32 Pain Scale: Adult kc6 MDM: 17:23 Medical Screening Exam initiated [facility] 17:43 Differential diagnosis: closed head injury, contusion, multiple trauma, sprain, strain. [facility] Data reviewed: vital signs, nurses notes, lab test result(s), EKG, radiologic studies. Consideration of Admission/Observation Escalation of care including admission/observation considered. I considered the following discharge prescriptions or medication management in the emergency department Medications were administered in the Emergency Department. See MAR. Independent interpretation of the following test(s) in the Emergency Department EKG: See my EKG interpretation above. Test considered but Not performed: Ultrasound NO ABD USG. 05/11 17:28 Order name: Basic Metabolic Panel; Complete Time: 19:45 [facility] 05/11 17:28 Order name: CBC with Diff; Complete Time: 19:45 [facility] 05/11 17:28 Order name: LFT's; Complete Time: 19:45 [facility] 05/11 17:28 Order name: Magnesium; Complete Time: 19:45 [facility] 05/11 17:28 Order name: NT PRO-BNP; Complete Time: 19:45 [facility] 05/11 17:28 Order name: PT-INR; Complete Time: 19:45 [facility] 05/11 17:28 Order name: Troponin HS; Complete Time: 19:45 [facility] 05/11 17:28 Order name: Urinalysis w/ reflexes; Complete Time: 19:45 [facility] 05/11 17:37 Order name: Flu; Complete Time: 19:45 [facility] 05/11 17:37 Order name: SARS RAPID; Complete Time: 19:45 [facility] 05/11 18:23 Order name: Urine Culture [facility] 05/11 21:19 Order name: Urinalysis w/ reflexes [facility] 05/11 21:19 Order name: CBC with Automated Diff [facility] 05/11 21:19 Order name: CBC with Automated Diff [facility] 05/11 21:19 Order name: Comprehensive Metabolic Panel [facility] 05/11 21:19 Order name: Comprehensive Metabolic Panel [facility] 05/11 21:19 Order name: Troponin High Sensitivity [facility] 05/11 21:19 Order name: Troponin High Sensitivity [facility] 05/11 21:19 Order name: Troponin High Sensitivity [facility] 05/11 21:19 Order name: Troponin High Sensitivity [facility] 05/11 17:28 Order name: XRAY Chest (1 view); Complete Time: 19:45 [facility] 05/11 17:28 Order name: CT Head C Spine; Complete Time: 19:45 [facility] 05/11 17:37 Order name: Pelvis XRAY; Complete Time: 19:45 [facility] 05/11 17:37 Order name: Femur Left XRAY; Complete Time: 19:45 [facility] 05/11 17:37 Order name: Hip Left 2 View XRAY; Complete Time: 19:45 [facility] 05/11 17:51 Order name: CT Chest, Abdomen, Pelvis - W/Contrast; Complete Time: 19:45 [facility] 05/11 21:19 Order name: CONS Physician Consult [facility] 05/11 17:28 Order name: Cardiac monitoring; Complete Time: 17:35 [facility] 05/11 17:28 Order name: EKG - Nurse/Tech; Complete Time: 17:53 [facility] 05/11 17:28 Order name: IV Saline Lock; Complete Time: 17:53 [facility] 05/11 17:28 Order name: Labs collected and sent; Complete Time: 17:53 [facility] 05/11 17:28 Order name: O2 Per Protocol; Complete Time: 17:35 [facility] 05/11 17:28 Order name: O2 Sat Monitoring; Complete Time: 17:35 [facility] EC:50 Rate is 100 beats/min. Rhythm is irregularly irregular. QRS [place] is Normal. [place] interval jaxon is normal. QRS interval is normal. QT interval is normal. No Q waves. T waves are Normal. No ST changes noted. Clinical impression: Atrial Fibrillation and No evidence of ischemia. Interpreted by me. Reviewed by me. Administered Medications: 17:53 Drug: NS 0.9% IV 500 ml IV at bolus once; to be given as a bolus over 30 minutes Route: kc6 IV; Rate: bolus; Site: right wrist; 19:04 Follow up: Response: No adverse reaction; IV Status: Completed infusion; IV Intake: kc6 500ml 20:39 Drug: Insulin Regular Human IVP 7 units IVP once {Co-Signature: kj2 (Phoebe Brandt RN).} Route: IVP; Site: right forearm; 20:54 Follow up: Response: No adverse reaction dd2 20:40 Drug: NS 0.9% IV 1000 ml IV at 1000 ml once; to be given as a bolus over 60 minutes dd2 Route: IV; Rate: 1000 ml; Site: right forearm; 20:55 Follow up: Response: No adverse reaction dd2 21:40 Follow up: IV Status: Completed infusion; IV Intake: 1000ml dd2 20:40 Drug: Rocephin IV 1 grams IV at per protocol once; Given slow IV push per pharmacy dd2 instructions Route: IV; Rate: per protocol; Site: right forearm; 20:50 Follow up: IV Status: Completed infusion; IV Intake: 10ml dd2 20:55 Follow up: Response: No adverse reaction dd2 20:50 Drug: NS 0.9% IV 1000 ml IV at 125 ml/hr continuous Route: IV; Rate: 125 ml/hr; Site: dd2 right forearm; 21:05 Follow up: Response: No adverse reaction dd2 23:17 Follow up: IV Status: Infusion continued upon admission dd2 22:02 Drug: Insulin Glargine Sub-Q 30 units Sub-Q once {Co-Signature: kj2 (Phoebe Brandt RN).} Route: Sub-Q; Site: right lower abdomen; 22:17 Follow up: Response: No adverse reaction dd2 Disposition Summary: 05/11/24 19:53 Hospitalization Ordered Notes: Hospitalization Status: Observation jaxon Provider: Piero Holguin cha Location: Telemetry/MedSurg (observation) jaxon Condition: Fair jaxon Problem: new jaxon Symptoms: have improved jaxon Bed/Room Type: Standard jaxon Room Assignment: 211(05/11/24 21:42) cg Diagnosis - Dizziness and giddiness jaxon - Weakness jaxon - Fall on same level, unspecified jaxon - UTI/ Urinary tract infection, site not specified jaxon - Contusion of left hip jaxon - Persistent atrial fibrillation jaxon - intermediate (current) use of anticoagulants jaxon - Unspecified kidney failure - insufficency jaxon - Type 2 diabetes mellitus with hyperglycemia jaxon - Elevated white blood cell count jaxon Forms: - Medication Reconciliation Form jaxon - SBAR form jaxon - Leadership Thank You Letter jaxon Signatures: Dispatcher [employer] EDMS Jalil Silva MD MD cha Garcia, Cindy, RN RN cg Moira Penaloza RN RN kc6 MEGHANN SANCHEZ RN RN dd2 Phoebe Brandt RN kj2 Corrections: (The following items were deleted from the chart) 17:29 17:29 BASIC METABOLIC PANEL+C.LAB.BRZ ordered. EDMS EDMS 17: 17:29 CBC+H.LAB.BRZ ordered. EDMS EDMS 17: 17:29 HEPATIC FUNCTION+C.LAB.BRZ ordered. EDMS EDMS 17: 17:29 MAGNESIUM+C.LAB.BRZ ordered. EDMS EDMS 17: 17:29 PROBNP+C.LAB.BRZ ordered. EDMS EDMS 17: 17:29 PROTIME (+INR)+COAG.LAB.BRZ ordered. EDMS EDMS 17: 17:29 Troponin High Sensitivity+C.LAB.BRZ ordered. EDMS EDMS 17:29 17:29 Urinalysis+U.LAB.BRZ ordered. EDMS EDMS 17:29 17:29 Chest Single View+RAD.RAD.BRZ ordered. EDMS EDMS 17:29 17:29 Head C Spine MPR Wo Con+CT.RAD.BRZ ordered. EDMS EDMS 18:18 17:37 Chest Abdomen Pelvis Wo Con+CT.RAD.BRZ ordered. EDMS EDMS 21:42 19:53 jaxon rogers
--- NOTE | 2024-05-11 19:53 | ER ---
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 denies LOC or hitting his head. pt reports generalized weakness for a few days and pelvic pain. Coronavirus screen: At this time, the client does not indicate any symptoms associated with coronavirus-19. Ebola Screen: No symptoms or risks identified at this time. Initial Sepsis Screen: Does the patient meet any 2 criteria? HR > 90 bpm. Does the patient have a suspected source of infection? No. Patient's initial sepsis screen is negative. Risk Assessment: Do you want to hurt yourself or someone else? Patient reports no desire to harm self or others. Onset of symptoms was May 11, 2024. 17:32 Method Of Arrival: Wheelchair [facility] 17:32 Acuity: [place] 3 [facility] Historical: - Allergies: 17:33 Codeine; kc6 - PMHx: 17:33 prostate problems; Myocardial infarction; Hypertension; Hyperlipidemia; GERD; Diabetes kc - NIDDM; Atrial fibrillation; Congenital heart disease; Gastroesophageal reflux disease; - PSHx: 17:33 cardiac stent x 7; Cholecystectomy; kc - Immunization history:: Adult Immunizations up to date. - Infectious Disease History:: Denies. - Social history:: Smoking status: Patient denies any tobacco usage or history of. Screenin:34 [facility] ED Fall Risk Assessment (Adult) History of falling in the last 3 months, [facility] including since admission Yes- single mechanical fall (1 pt) Confusion or Disorientation No (0 pts) Intoxicated or Sedated No (0 pts) Impaired Gait Yes (1 pt) Mobility Assist Device Used Yes (1 pt) Altered Elimination No (0 pt) Score/Fall Risk Level 3 or more points = High Risk Oriented to surroundings, Maintained a safe environment, Educated pt \T\ family on fall prevention, incl call for assistance when getting out of bed. Abuse screen: Denies threats or abuse. Denies injuries from another. Nutritional screening: No deficits noted. Tuberculosis screening: No symptoms or risk factors identified. Assessment: 17:54 General: Appears in no apparent distress. comfortable, well groomed, well developed, kc6 Behavior is calm, cooperative, appropriate for age. Pain: Complains of pain in buttocks and pelvis. Neuro: Level of Consciousness is awake, alert, obeys commands, Oriented to person, place, time, situation, Appropriate for age Reports dizziness, weakness. Cardiovascular: Denies chest pain, Capillary refill < 3 seconds Rhythm is atrial fibrillation. Respiratory: Airway is patent Trachea midline Respiratory effort is even, unlabored, Respiratory pattern is regular, symmetrical. GI: No signs and/or symptoms were reported involving the gastrointestinal system. : No signs and/or symptoms were reported regarding the genitourinary system. EENT: No signs and/or symptoms were reported regarding the EENT system. Derm: No signs and/or symptoms reported regarding the dermatologic system. Skin is intact, is healthy with good turgor, Skin is pink, warm \T\ dry. Musculoskeletal: Circulation, motion, and sensation intact. Capillary refill < 3 seconds, Range of motion: intact in all extremities. 18:54 Reassessment: Patient appears in no apparent distress at this time. No changes from kc6 previously documented assessment. Patient and/or family updated on plan of care and expected duration. Pain level reassessed. Patient is alert, oriented x 3, equal unlabored respirations, skin warm/dry/pink. Vital Signs: 17:32 BP 118 / 66; Pulse 105; Resp 18 S; Temp 98.5(O); Pulse Ox 95% on R/A; Weight 83.91 kg kc6 (R); Height 5 ft. 10 in. (R); Pain 8/10; 19:04 BP 124 / 74; Pulse 83; Resp 18 S; Pulse Ox 100% on R/A; kc6 20:30 BP 135 / 70; Pulse 87; Resp 16; Temp 98.3; Pulse Ox 97% ; dd2 22:30 BP 126 / 74; Pulse 84; Resp 16; Pulse Ox 98% ; dd2 17:32 Body Mass Index 26.54 (83.91 kg, 177.8 cm) kc6 17:32 Pain Scale: Adult kc6 ED Course: 17:14 Patient arrived in ED. mr 17:23 Jalil Silva MD is Attending Physician. jaxon 17:32 Moira Penaloza, EVETTE is Primary Nurse. kc6 17:33 Triage completed. kc6 17:33 Arm band placed on. kc6 17:34 Patient has correct armband on for positive identification. Bed in low position. Call kc6 light in reach. Side rails up X2. Adult w/ patient. Pulse ox on. NIBP on. Door closed. Noise minimized. Lights dimmed. Pillow given. 17:34 Patient maintains SpO2 saturation greater than 95% on room air. kc6 17:53 Inserted saline lock: 20 gauge in right wrist, using aseptic technique. Blood kc6 collected. Flushed with 10 mL NS. 18:25 CT Head C Spine In Process Unspecified. EDMS 18:25 CT Chest, Abdomen, Pelvis - W/Contrast In Process Unspecified. EDMS 18:43 XRAY Chest (1 view) In Process Unspecified. EDMS 18:43 Pelvis XRAY In Process Unspecified. EDMS 18:43 Femur Left XRAY In Process Unspecified. EDMS 18:43 Hip Left 2 View XRAY In Process Unspecified. EDMS 19:04 Report given to Anna Harman RN. [facility] 19:51 Piero Holguin MD is Hospitalizing Provider. jaxon 22:28 No provider procedures requiring assistance completed. Patient admitted, IV remains in dd2 place. 22:29 Provided Education on: medications, admission instructions. dd2 Administered Medications: 17:53 Drug: NS 0.9% IV 500 ml IV at bolus once; to be given as a bolus over 30 minutes Route: kc6 IV; Rate: bolus; Site: right wrist; 19:04 Follow up: Response: No adverse reaction; IV Status: Completed infusion; IV Intake: kc6 500ml 20:39 Drug: Insulin Regular Human IVP 7 units IVP once {Co-Signature: kj2 (Phoebe Brandt dd2 RN).} Route: IVP; Site: right forearm; 20:54 Follow up: Response: No adverse reaction dd2 20:40 Drug: NS 0.9% IV 1000 ml IV at 1000 ml once; to be given as a bolus over 60 minutes dd2 Route: IV; Rate: 1000 ml; Site: right forearm; 20:55 Follow up: Response: No adverse reaction dd2 21:40 Follow up: IV Status: Completed infusion; IV Intake: 1000ml dd2 20:40 Drug: Rocephin IV 1 grams IV at per protocol once; Given slow IV push per pharmacy dd2 instructions Route: IV; Rate: per protocol; Site: right forearm; 20:50 Follow up: IV Status: Completed infusion; IV Intake: 10ml dd2 20:55 Follow up: Response: No adverse reaction dd2 20:50 Drug: NS 0.9% IV 1000 ml IV at 125 ml/hr continuous Route: IV; Rate: 125 ml/hr; Site: dd2 right forearm; 21:05 Follow up: Response: No adverse reaction dd2 23:17 Follow up: IV Status: Infusion continued upon admission dd2 22:02 Drug: Insulin Glargine Sub-Q 30 units Sub-Q once {Co-Signature: kj2 (Phoebe Brandt dd2 RN).} Route: Sub-Q; Site: right lower abdomen; 22:17 Follow up: Response: No adverse reaction dd2 Medication: 22:29 VIS not applicable for this client. dd2 Intake: 19:04 IV: 500ml; Total: 500ml. kc6 20:50 IV: 10ml; Total: 510ml. dd2 21:40 IV: 1000ml; Total: 1510ml. dd2 Outcome: 19:53 Decision to Hospitalize by Provider. jaxon 23:13 Admitted to Med/surg accompanied by tech, via wheelchair, room 211, with chart, dd2 23:13 Condition: stable 23:13 Instructed on the need for admit, 23:58 Patient left the ED. dd2 Signatures: Dispatcher [employer] EDMS Jalil Silva MD MD cha Rivera, Mary, Reg Venkatesh mr Moira Penaloza, RN RN kc6 ANNA HARMAN RN RN dd2 Phoebe Brandt RN kj2
[2024-05-11] MEDS ORDERED: INSULIN REGULAR (HUMAN) 100 UNIT/ML ONE (20:20)
[2024-05-11] MEDS ORDERED: CEFTRIAXONE 1000 MG/VIAL ONE (20:20)
--- NOTE | 2024-05-11 21:06 | P.HP ---
Certification for Inpatient Patient admitted to: Observation With expected LOS: <2 Midnights Practitioner: I am a practitioner with admitting privileges, knowledge of patient current condition, hospital course, and medical plan of care. Services: Services provided to patient in accordance with Admission requirements found in Title 42 Section 412.3 of the Code of Federal Regulations Patient History Date of Service: 05/11/24 Reason for admission: Dizziness / Fall History of Present Illness: 84 yrs old Male with past medical history of prostate problems, CAD ,Myocardial infarction, s/p Stent,Hypertension, Hyperlipidemia ,GERD , Diabetes , Atrial fibrillation, Gastroesophageal reflux disease came in with dizziness and had a fall and was brought to ER Denies any chest pain or shortness of breath. No fever or chills. No nausea vomiting or diarrhea. Patient was assessed in the ER and was admitted for further management. Allergies codeine Allergy (Verified 03/17/19 11:14) Rash Home medications list reviewed: Yes Home Medications: Aspirin [Aspirin EC 81 MG] 81 mg PO DAILY 03/13/19 Finasteride [Proscar*] 5 mg PO DAILY 03/13/19 Pantoprazole [Protonix Tab*] 40 mg PO DAILY 03/13/19 lisinopriL [Prinivil*] 20 mg PO [id number] 03/13/19 Escitalopram Oxalate 10 mg PO DAILY 06/16/19 Ascorbic Acid [Vitamin C*] 500 mg PO TID #90 tablet 08/20/20 Cholecalciferol (Vitamin D3) [Vitamin D 1000 Iu Tab*] 2,000 unit PO DAILY #60 tab 08/20/20 Lactobacillus Acidophilus [Acidophilus Lactobacilli] 1 each PO BID #30 capsule 08/20/20 Melatonin 5 mg PO BEDTIME #30 tablet 08/20/20 Zinc Sulfate [Zinc Sulfate*] 220 mg PO DAILY #30 cap 08/20/20 Ciprofloxacin HCl [Cipro 500 MG Tablet] 500 mg PO BID #10 tab 09/01/20 metroNIDAZOLE [Flagyl] 500 mg PO Q8H #15 tablet 09/01/20 ondansetron HCL [Zofran] 4 mg PO Q6H PRN #30 tablet 09/01/20 - Past Medical/Surgical History Diabetic: No Past Medical History: Reviewed- Non-Contributory -: Diabetes mellitus type 2 -: Hypertension -: CAD -: BPH -: Depression Past Surgical History: Reviewed- Non-Contributory -: Cardiac stent -: Hand surgery -: Cardiac catheterization Psychosocial/ Personal History: 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 - Family History Father -: Heart disease, Hypertension Mother -: Cancer Sister -: Cancer - Social History Smoking Status: Never smoker Alcohol use: No CD- Drugs: No Caffeine use: No Review of Systems 10-point ROS is otherwise unremarkable Physical Examination - Vital Signs Temperature: 97.2 F Blood Pressure: 122/68 Pulse: 76 Respirations: 18 Pulse Ox (%): 94 - Physical Exam General: Alert, In no apparent distress, Oriented x3 HEENT: Atraumatic, Normocephalic Neck: Supple, No Thyromegaly Respiratory: Clear to auscultation bilaterally, Normal air movement Cardiovascular: Regular rate/rhythm, Normal S1 S2 Capillary refill: <2 Seconds Gastrointestinal: Soft and benign, W/out hepatosplenomegaly Musculoskeletal: No clubbing, No swelling Integumentary: No rashes, No tenderness/swelling Neurological: Normal speech, Normal strength at 5/5 x4 extr, Cranial nerves 3-12 intact, Normal reflexes 2+ Lymphatics: No axilla or inguinal lymphadenopathy - Studies Laboratory Data (last 24 hrs) 05/11/24 05/11/24 05/11/24 17:50 17:50 17:50 WBC 14.70 H Hgb 13.8 Hct 41.4 Plt Count 259 PT 14.1 H INR 1.27 Sodium 134 L Potassium 4.1 BUN 27 H Creatinine 1.36 H Glucose 376 H Magnesium 1.9 Total Bilirubin 0.4 AST 11 L ALT 19 Alkaline Phosphatase 72 Microbiology Data (last 24 hrs): 05/11/24 17:50 Nasopharnyx Influenza Type A Antigen Screen - Final 05/11/24 17:50 Nasopharnyx Influenza Type B Antigen Screen - Final Assessment and Plan - Plan Syncope Monitor closely on telemetry We will trend cardiac enzymes Carotid Dopplers Will get an echocardiogram Cardiology consult Hypertension Antihypertensives titrated Continue home medications and titrate as needed Hyperlipidemia Continue statin 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 Monitor renal parameters Electrolytes monitor and replace accordingly Diabetes Insulin sliding scale Accu-Chek before every meal and at bedtime Anemia of chronic disease Monitor H&H closely No overt bleeding at this time Patient had GI bleeding in the past requiring transfusions UTI Leukocytosis Started on Rocephin Will obtain cultures GI/DVT prophylaxis Advanced directive full code Discharge Plan: Home Plan to discharge in: 48 Hours - Advance Directives Does patient have a Living Will: Yes Does patient have a Durable POA for Healthcare: Yes - Code Status/Comfort Care Code Status: Full Code Time Spent Managing Pts Care (In Minutes): 48
[2024-05-11] MEDS ORDERED: ACETAMINOPHEN 325 MG TABLET PO PRN (21:11)
[2024-05-11] MEDS ORDERED: ONDANSETRON 4 MG/2 ML VIAL IV PRN (21:11)
[2024-05-11] MEDS: INSULIN GLARGINE 100 UNIT/ML SQ ONE (21:45)
[2024-05-12 00:20] VITALS: BMI 27.6
[2024-05-12] MEDS: NA CHLORIDE 0.9% 1,000 ML IV SCH (00:30)
[2024-05-12 01:22] VITALS: O2SAT 98
[2024-05-12 01:57] LABS: Specific Gravity > 1.030 (1.005-1.030); Sqamous Epithelial <5 /HPF (None Seen); Urine Bacteria None Seen /HPF (<20); Urine Bilirubin NEGATIVE (Negative); Urine Blood 1+ (Negative); Urine Clarity Extremely Turbid (Clear); Urine Color Light-Yellow (Yellow); Urine Culture Reflex Order REFLEXED; Urine Glucose 1+ (Negative); Urine Ketones NEGATIVE (Negative); Urine Microscopic Reflex YN ORDER UMIC; Urine Nitrite NEGATIVE (Negative); Urine Protein 1+ (Negative); Urine RBC 21-50 /HPF (None Seen); Urine Urobilinogen Normal (Normal); Urine WBC >50 /HPF (<5); Urine WBC Clump Rare /HPF (None Seen)
[2024-05-12 05:23] LABS: Absolute Eosinophils 0.2 K/uL (0-0.5); Absolute Lymphocytes (CBC) 2.1 K/uL (0.7-4.9); Absolute Monocytes 1.4 K/uL (0.1-1.3); Absolute Neutrophil 6.4 K/uL (1.8-8.0); Basophils % 0.4 % (0-1.3); Eosinophils % 1.9 % (0-4.4); Hemoglobin 12.5 g/dL (13.6-17.9); Lymphocytes % 20.8 % (15.3-44.8); MCV 94.2 fL (80-100); MPV 8.4 fL (7.6-11.3); Monocytes % 13.9 % (3.3-12.3); Platelets 235 thou/uL (152-406); RBC Red Blood Cell Count 4.03 M/uL (4.33-5.43); Red Cell Distribution Width 14.9 % (12.1-15.2)
[2024-05-12 05:30] LABS: ALT/SGPT 15 U/L (16-61); Albumin 2.5 g/dL (3.4-5.0); Albumin/Globulin Ratio 0.7 (1.1-1.8); Alkaline Phosphatase 60 U/L (45-117); Anion Gap 8.7 mEq/L (5.0-15.0); BUN Blood Urea Nitrogen 20 mg/dL (7-18); Bicarbonate 23 mEq/L (21-32); Bilirubin Total 0.3 mg/dL (0.2-1.0); Globulin 3.5 g/dL (2.3-3.5); Glomerular Filtration Rate 82 ml/min (=/>90); Glucose Level 163 mg/dL (74-106); Potassium 3.7 mEq/L (3.5-5.1); Sodium Level 139 mEq/L (136-145); Troponin High Sensitivity 8.3 pg/mL (<58.9)
[2024-05-12 05:31] LABS: AST/SGOT < 10 U/L (15-37)
[2024-05-12 06:06] LABS: Phosphorus 2.1 mg/dL (2.5-4.9)
[2024-05-12] MEDS ORDERED: GLUCAGON 1 MG/VIAL IM PRN (06:57)
[2024-05-12] MEDS ORDERED: D10W 125 ML IV PRN (06:57)
[2024-05-12] MEDS: INSULIN REGULAR (HUMAN) 100 UNIT/ML SQ SCH (07:30)
--- NOTE | 2024-05-12 08:11 | RAD REPORT ---
EXAM: US Carotid Artery Bilateral CLINICAL INDICATION: PRE SYNCOPE TECHNIQUE: Real-time grayscale, color flow, and spectral Doppler sonographic images were obtained of the extracranial carotid system using a linear transducer. Arterial peak systolic velocities are recorded as follows. COMPARISON: No prior exam. FINDINGS: RIGHT: Common carotid artery: 82 cm/s Internal carotid artery: 92 cm/s Right ICA/CCA ratio: 1.11 Plaque Mild smooth mixed density plaque at the bulb. External carotid artery: 100 cm/s Vertebral artery: 50 LEFT: Common carotid artery: 64 cm/s Internal carotid artery: 119 cm/s Left ICA/CCA ratio: 1.87 Plaque Mild smooth mixed density plaque at the bulb. External carotid artery: 112 cm/s Vertebral artery: 44 IMPRESSION: No hemodynamically significant stenosis (greater than 50%) within the extracranial internal carotid a rteries. The degrees of stenosis, if any, are quantified according to the consensus statement of the Society o f Radiologists in Ultrasound (SRUS). Please refer to Palomo E, Lawrence C, Jose Manuel G et al. Carotid Artery Stenosis: Rasheed-Scale and Doppler US Diagnosis--Society of Radiologists in Ultrasound Consensus Conference. Radiology. 2003;229(2):340-6. doi:10.1148/[id number]
[2024-05-12] MEDS: ENOXAPARIN 40 MG/0.4 ML SQ SCH (09:00)
[2024-05-12] MEDS ORDERED: POTASS/SODIUM PHOSPHATE 1 PKT POWD.PACK PO SCH (09:00)
[2024-05-12] MEDS: POTASSIUM 25 MEQ EFFERV TAB PO ONE (09:00)
[2024-05-12 09:14] VITALS: BP 132/79; TEMP 98
--- NOTE | 2024-05-12 12:32 | P.PN ---
Date of Service: 05/12/24 Patient left AMA this morning before I saw him on rounding.
[2024-05-12] MEDS ORDERED: CEFTRIAXONE 1,000 MG in NA CHLORIDE 0.9% 50 ML IVPB SCH (21:00)
--- NOTE | 2024-05-15 12:07 | EKG ---
Test Date: 2024-05-11 Test Time: 17:46:22 Sign Painter Helper: KIRK MEASUREMENT RESULTS: Intervals: Rate: 100 NH: QRSD: 84 QT: 312 QTc: 402 [place]: P: NH: QRS: -59 T: 60 INTERPRETIVE STATEMENTS: Atrial fibrillation Left axis deviation Abnormal ECG Compared to ECG 11/30/2023 12:06:26 Myocardial infarct finding no longer present Electronically Signed On 05-15-24 12:03:03 CREATIVE LEAD by Kenn Christine
== END 2024-05-12 10:32 | disposition left against medical advice (07) ==
LOC: ER 17:11 → ERHOLD 21:11 → 2ND 23:52
PROVIDERS: ADMIT Family Medicine; ATTEND Internal Medicine
DX: R42 Dizziness and giddiness (principal); I25.10 Atherosclerotic heart disease of native coronary artery without angina pectoris; I25.2 Old myocardial infarction; E78.5 Hyperlipidemia, unspecified; K21.9 Gastro-esophageal reflux disease without esophagitis; I48.11 Longstanding persistent atrial fibrillation; E11.22 Type 2 diabetes mellitus with diabetic chronic kidney disease; I13.0 Hypertensive heart and chronic kidney disease with heart failure and stage 1 through stage 4 chronic kidney disease, or unspecified chronic kidney disease; N18.2 Chronic kidney disease, stage 2 (mild); I50.9 Heart failure, unspecified; N17.9 Acute kidney failure, unspecified; E11.65 Type 2 diabetes mellitus with hyperglycemia; D72.829 Elevated white blood cell count, unspecified; N39.0 Urinary tract infection, site not specified; S70.02XA Contusion of left hip, initial encounter; W18.30XA Fall on same level, unspecified, initial encounter; Y93.89 Activity, other specified; Y92.9 Unspecified place or not applicable; Z95.5 Presence of coronary angioplasty implant and graft; Z88.5 Allergy status to narcotic agent; Z79.01 Long term (current) use of anticoagulants; Z53.29 Procedure and treatment not carried out because of patient's decision for other reasons; Z11.52 Encounter for screening for COVID-19
CPT/HCPCS: 96361; 87088; 85025 ×2; 81001 ×2; 87086; 80048; 36415; 83735 ×2; 84100; 85610; 82947 ×2; 80076; 87077; 87186; 84484 ×3; 80053; 83880; 87804 ×2; 70450; 72125; 71260; 74177; 71045; 72170; 73502; 73552; 93880; 94760; 96375; 96372; 96374; 99285; 87811; Q9967; J7040; J7030 ×3; J0696; 93005; G0378

== ENCOUNTER 2025-04-12 12:24 | Emergency (ER) | payer OTHER ==
[2025-04-12] MEDS ORDERED: ONDANSETRON 4 MG/2 ML VIAL ONE (12:51)
[2025-04-12] MEDS ORDERED: NA CHLORIDE 0.9% 1,000 ML ONE ×2 (12:52→14:01)
[2025-04-12 13:06] LABS: Absolute Lymphocytes (CBC) 1.6 K/uL (0.7-4.9); Hematocrit 48.6 % (39.6-49.0); Hemoglobin 16.3 g/dL (13.6-17.9); MCH 31.0 pg (27.0-35.0); MCHC 33.6 g/dL (32.0-36.0); MCV 92.3 fL (80-100); MPV 8.9 fL (7.6-11.3); Nucleated RBC Absolute Count 0.0 (0-0); Nucleated Red Blood Cells % 0.0 % (0-0); RBC Red Blood Cell Count 5.27 M/uL (4.33-5.43); White Blood Count 13.30 thou/uL (4.3-10.9)
[2025-04-12 13:24] LABS: ALT/SGPT 22 U/L (16-61); Albumin 3.5 g/dL (3.4-5.0); Albumin/Globulin Ratio 0.8 (1.1-1.8); Alkaline Phosphatase 66 U/L (45-117); Anion Gap 13.1 mEq/L (5.0-15.0); BUN Blood Urea Nitrogen 31 mg/dL (7-18); Globulin 4.2 g/dL (2.3-3.5); Glucose Level 197 mg/dL (74-106); Lipase 34 U/L (13-75); Potassium 4.1 mEq/L (3.5-5.1)
[2025-04-12 13:25] LABS: AST/SGOT < 10 U/L (15-37)
--- NOTE | 2025-04-12 13:52 | RAD REPORT ---
EXAMINATION: Abdomen Pelvis W Contrast CLINICAL INDICATION: Male, 85 years old.ABD PAIN TECHNIQUE: CT abdomen and pelvis was performed, after the administration of IV contrast, [facility]. Axial, sagittal and coronal reconstructions were obtained. One or more of the following dose reduction techniques were used: Automated exposure control, adjustment of the mA and/o r kV according to patient size, and/or iterative reconstruction. Unless otherwise specified, incidental findings do not require dedicated imaging follow-up. [id number]. COMPARISON: 11/30/2023 FINDINGS: LOWER CHEST: No acute process identified. No significant pericardial effusion. Moderate coronary martha ry calcifications. Mild circumferential thickening of the distal esophagus which could reflect esophagitis. UPPER GI: Distended stomach. LIVER: Hepatic steatosis, but otherwise unremarkable. GALLBLADDER/BILE DUCTS: Cholecystectomy.? PANCREAS: Atrophy but no acute findings. SPLEEN: Unremarkable. ADRENALS: No adrenal masses. KIDNEYS AND URETERS: No hydronephrosis. Low density and/or too small to characterize renal lesions wh ich are statistically benign. Pelvic kidney on the right. No renal or ureteral calculi. ABDOMINAL AORTA AND OTHER VESSELS: Moderate atherosclerotic changes without aortic aneurysm. PERITONEUM: No abnormal free fluid. No free air. LYMPH NODES: No pathologic lymphadenopathy. ABDOMINAL WALL: Unremarkable SMALL BOWEL/COLON: Nondilated fluid-filled: And distal small bowel. URINARY BLADDER: Underdistended but grossly unremarkable. REPRODUCTIVE ORGANS: Moderate prostatomegaly. MUSCULOSKELETAL: No acute or suspicious osseous abnormality. ADDITIONAL FINDINGS: None. IMPRESSION: Nonspecific fluid-filled colon and small bowel may represent a mild enterocolitis/diarrheal process. No bowel obstruction.
[2025-04-12] MEDS ORDERED: DIPHENOX/ATROP SULF 1 TAB PO ONE (14:31)
--- NOTE | 2025-04-12 14:50 | EDPHYS ---
Physician Documentation [facility] Name: Dave Moreladn Age: 85 yrs Sex: Male : 1940 Arrival Date: 04/12/2025 Time: 12:24 Bed 5 Private MD: ED Physician Jalil Silva HPI: 04/12 13:19 This 85 yrs old Male presents to ER via Wheelchair with complaints of Abdominal Pain, sb4 Vomiting/Diarrhea. 13:19 Patient reports epigastric abdominal pain with associated nausea, vomiting, and sb4 diarrhea that all began last night. He states that he did go to a buffet last night and he did start Mounjaro 4 days ago. States that he was feeling fine before last night. States that his diarrhea has become very watery. Historical: - Allergies: 12:34 Codeine; db - PMHx: 12:34 Congenital Heart Disease; Atrial fibrillation; Diabetes - NIDDM; Gastroesophageal db reflux disease; GERD; Hyperlipidemia; Hypertension; Myocardial infarction; prostate problems; - PSHx: 12:34 cardiac stent x 7; Cholecystectomy; db - Immunization history:: Adult Immunizations unknown. - Infectious Disease History:: Denies. - Social history:: Smoking status: Patient denies any tobacco usage or history of. ROS: 13:19 Constitutional: Negative for fever, chills, and weight loss, sb4 13:19 Abdomen/GI: Positive for abdominal pain, nausea, vomiting, and diarrhea, 13:19 All other systems are negative, Exam: 13:19 Head/Face: Normocephalic, atraumatic. Eyes: Extra-ocular motions intact. Periorbital sb4 areas with no swelling, redness, or edema. Cardiovascular: Regular rate and rhythm with a normal S1 and S2. Respiratory: No increased work of breathing, no retractions or nasal flaring. Skin: Warm, dry with normal turgor. Normal color with no rashes, no lesions, and no evidence of cellulitis. 13:19 Constitutional: The patient appears in no acute distress, alert, awake, 13:19 ENT: Mouth: Oral mucosa: dry, 13:19 Abdomen/GI: Inspection: abdomen appears normal, Bowel sounds: normal, Palpation: soft, mild abdominal tenderness, in the epigastric area, Vital Signs: 12:29 BP 124 / 88; Pulse 93; Resp 18; Temp 98.3; Pulse Ox 99% ; Weight 83.91 kg; Height 5 ft. db 10 in. ; Pain 10/10; 14:00 BP 118 / 65; Pulse 85; Resp 18; Pulse Ox 98% on R/A; kb4 15:23 BP 128 / 95; Pulse 55; Resp 16; Pulse Ox 99% on R/A; kb4 12:29 Body Mass Index 26.54 (83.91 kg, 177.8 cm) db 12:29 Pain Scale: Adult db MDM: 12:37 Medical Screening Exam initiated jaxon 13:19 Differential diagnosis: gastritis, non-specific abd pain, pancreatitis, Peptic Ulcer sb4 Disease, gastroenteritis, dehydration. 13:22 Historians other than the Patient: Spouse/Significant Other: . Care significantly sb4 affected by the following chronic conditions: Diabetes. 14:53 Data reviewed: vital signs, nurses notes, lab test result(s), radiologic studies, and sb4 as a result, I will discharge patient. Counseling: I had a detailed discussion with the patient and/or guardian regarding the historical points, exam findings, and any diagnostic results supporting the discharge/admit diagnosis, lab results, radiology results, the need for outpatient follow up, for definitive care, to return to the emergency department if symptoms worsen or persist or if there are any questions or concerns that arise at home. 14:54 Consideration of Admission/Observation Escalation of care including sb4 admission/observation considered. Medication response: Zofran markedly relieved the patient's nausea. Special discussion: Based on the patient's Hx, exam, and Dx evaluation, there is no indication for emergent surgery or inpatient Tx. It is understood by the patient/guardian that if the Sx's persist or worsen they need to return immediately for re-evaluation. 04/12 12:44 Order name: Glucose, Ancillary Testing; Complete Time: 12:45 EDMS 04/12 12:45 Order name: CBC with Diff; Complete Time: 13:10 sb4 04/12 12:45 Order name: CMP; Complete Time: 13:30 sb4 04/12 12:45 Order name: Lipase; Complete Time: 13:30 sb4 04/12 12:45 Order name: CT Abd/Pelvis - IV Contrast Only; Complete Time: 13:53 sb4 04/12 12:45 Order name: IV Saline Lock; Complete Time: 12:50 sb4 04/12 12:45 Order name: Labs collected and sent; Complete Time: 13:04 sb4 04/12 13:53 Order name: PO challenge; Complete Time: 14:35 sb4 Administered Medications: 13:04 Drug: Ondansetron IVP 4 mg IVP once; over 2 minutes Route: IVP; Site: left antecubital; kb4 15:23 Follow up: Response: No adverse reaction kb4 13:04 Drug: NS 0.9% IV 1000 ml IV at 1 bolus Per protocol; to be given as a bolus over 60 kb4 minutes Route: IV; Rate: 1 bolus; Site: left antecubital; 15:23 Follow up: Response: No adverse reaction; IV Status: Completed infusion kb4 14:35 Drug: NS 0.9% IV 1000 ml IV at 1 bolus Per protocol; to be given as a bolus over 60 kb4 minutes Route: IV; Rate: 1 bolus; Site: right antecubital; 15:24 Follow up: IV Status: Completed infusion kb4 14:35 Drug: Diphenoxylate-Atropine PO 1 tabs PO once Route: PO; kb4 15:23 Follow up: Response: No adverse reaction kb4 Point of Care Testing: Blood Glucose: 12:34 Blood Glucose: 185 mg/dL; db Ranges: Critical Glucose Levels:Adult <50 mg/dl or >400 mg/dl <40 mg/dl or >180 mg/dl Disposition Summary: 04/12/25 14:50 Discharge Ordered Notes: Location: Home sb4 Problem: new sb4 Symptoms: have improved sb4 Condition: Stable sb4 Diagnosis - Viral gastroenteritis sb4 Followup: sb4 - With: Private Physician - When: As needed - Reason: Recheck today's complaints, Re-evaluation by your physician Discharge Instructions: - Discharge Summary Sheet sb4 - Food Choices to Help Relieve Diarrhea, Adult sb4 - Viral Gastroenteritis, Adult, [id number]-tr-[id number] sb4 Forms: - Patient Portal Instructions sb4 - Leadership Thank You Letter sb4 Signatures: Dispatcher [employer] Jalil Gaffney MD MD cha Benton, Danielle RN RN Cassia Hess PAAdan PAAdan sb4 Shana Stallworth RN RN kb4 Corrections: (The following items were deleted from the chart) 12:46 12:46 Abdomen Pelvis W Con+CT.RAD.BRZ ordered. EDMS EDMS
--- NOTE | 2025-04-12 14:50 | ER ---
Nurse's Notes [facility] Name: Dave Moreland Age: 85 yrs Sex: Male : 1940 Arrival Date: 04/12/2025 Time: 12:24 Bed 5 Private MD: Diagnosis: Viral gastroenteritis Presentation: 04/12 12:29 Chief complaint: Patient states: MIDDLE UPPER ABD PAIN WITH N/V AND DIARRHEA. DID NOT db TAKE 70/30 INSULIN DUE TO NOT TOLERATING FOOD. GLUCOSE IN TRIAGE 185. Coronavirus screen: Client denies travel out of the [place] in the last 14 days. At this time, the client does not indicate any symptoms associated with coronavirus-19. Ebola Screen: Patient negative for fever greater than or equal to 101.5 degrees Fahrenheit, and additional compatible Ebola Virus Disease symptoms Patient denies exposure to infectious person. Patient denies travel to an Ebola-affected area in the 21 days before illness onset. No symptoms or risks identified at this time. Initial Sepsis Screen: Does the patient meet any 2 criteria? No. Patient's initial sepsis screen is negative. Does the patient have a suspected source of infection? No. Patient's initial sepsis screen is negative. Risk Assessment: Do you want to hurt yourself or someone else? Patient reports no desire to harm self or others. Onset of symptoms was April 12, 2025. 12:29 Method Of Arrival: Wheelchair db 12:29 Acuity: CLARK 3 db Triage Assessment: 12:34 General: Appears in no apparent distress. uncomfortable, Behavior is calm, cooperative. db Pain: Complains of pain in abdomen. Neuro: Level of Consciousness is awake, alert, obeys commands, Oriented to person, place, time, situation. Respiratory: Airway is patent Respiratory effort is even, unlabored, Respiratory pattern is regular, symmetrical. GI: Abdomen is distended, Reports upper abdominal pain, diarrhea, nausea, vomiting. Historical: - Allergies: 12:34 Codeine; db - PMHx: 12:34 Congenital Heart Disease; Atrial fibrillation; Diabetes - NIDDM; Gastroesophageal db reflux disease; GERD; Hyperlipidemia; Hypertension; Myocardial infarction; prostate problems; - PSHx: 12:34 cardiac stent x 7; Cholecystectomy; db - Immunization history:: Adult Immunizations unknown. - Infectious Disease History:: Denies. - Social history:: Smoking status: Patient denies any tobacco usage or history of. Screenin:06 [facility] ED Fall Risk Assessment (Adult) History of falling in the last 3 months, kb4 including since admission No falls in past 3 months (0 pts) Confusion or Disorientation No (0 pts) Intoxicated or Sedated No (0 pts) Impaired Gait No (0 pts) Mobility Assist Device Used No (0 pt) Altered Elimination No (0 pt) Score/Fall Risk Level 0 - 2 = Low Risk. Abuse screen: Denies threats or abuse. Denies injuries from another. Nutritional screening: No deficits noted. Tuberculosis screening: No symptoms or risk factors identified. Assessment: 13:04 General: Appears in no apparent distress. comfortable, Behavior is calm, cooperative. kb4 Pain:. Neuro: Level of Consciousness is awake, alert, obeys commands, Oriented to person, place, time, situation. Cardiovascular: Patient's skin is warm and dry. Respiratory: Airway is patent Respiratory effort is even, unlabored, Respiratory pattern is regular, symmetrical. GI:. Derm: Skin is pink, warm \T\ dry. 14:00 GI: Bowel sounds present X 4 quads. Abd is non tender X 4 quads. kb4 14:44 Reassessment: Patient and/or family updated on plan of care and expected duration. Pain kb4 level reassessed. Patient is alert, oriented x 3, equal unlabored respirations, skin warm/dry/pink. 15:23 Reassessment: Patient is alert, oriented x 3, equal unlabored respirations, skin kb4 warm/dry/pink. Patient states feeling better. Vital Signs: 12:29 BP 124 / 88; Pulse 93; Resp 18; Temp 98.3; Pulse Ox 99% ; Weight 83.91 kg; Height 5 ft. db 10 in. ; Pain 10/10; 14:00 BP 118 / 65; Pulse 85; Resp 18; Pulse Ox 98% on R/A; kb4 15:23 BP 128 / 95; Pulse 55; Resp 16; Pulse Ox 99% on R/A; kb4 12:29 Body Mass Index 26.54 (83.91 kg, 177.8 cm) db 12:29 Pain Scale: Adult db ED Course: 12:25 Patient arrived in ED. mr 12:25 Cassia Gong PA-C is PHCP. sb4 12:25 Jalil Silva MD is Attending Physician. sb4 12:34 Triage completed. db 12:34 Arm band placed on Patient placed in an exam room. db 12:42 Shana Stallworth, EVETTE is Primary Nurse. kb4 12:50 Inserted saline lock: 20 gauge in right antecubital area, using aseptic technique. kb4 Blood collected. Flushed with 10 mL NS. 13:06 Patient has correct armband on for positive identification. kb4 13:37 CT Abd/Pelvis - IV Contrast Only In Process Unspecified. EDMS 15:24 No provider procedures requiring assistance completed. IV discontinued, intact, kb4 bleeding controlled, No redness/swelling at site. Pressure dressing applied. 15:25 Provided Education on: d/c. kb4 Administered Medications: 13:04 Drug: Ondansetron IVP 4 mg IVP once; over 2 minutes Route: IVP; Site: left antecubital; kb4 15:23 Follow up: Response: No adverse reaction kb4 13:04 Drug: NS 0.9% IV 1000 ml IV at 1 bolus Per protocol; to be given as a bolus over 60 kb4 minutes Route: IV; Rate: 1 bolus; Site: left antecubital; 15:23 Follow up: Response: No adverse reaction; IV Status: Completed infusion kb4 14:35 Drug: NS 0.9% IV 1000 ml IV at 1 bolus Per protocol; to be given as a bolus over 60 kb4 minutes Route: IV; Rate: 1 bolus; Site: right antecubital; 15:24 Follow up: IV Status: Completed infusion kb4 14:35 Drug: Diphenoxylate-Atropine PO 1 tabs PO once Route: PO; kb4 15:23 Follow up: Response: No adverse reaction kb4 Medication: 14:45 VIS not applicable for this client. kb4 Point of Care Testing: Blood Glucose: 12:34 Blood Glucose: 185 mg/dL; db Ranges: Outcome: 14:50 Discharge ordered by . sb4 15:24 Discharged to home via wheelchair, kb4 15:24 Condition: good 15:24 Discharge instructions given to patient, family, Instructed on discharge instructions, follow up and referral plans. Demonstrated understanding of instructions, follow-up care, 15:27 Patient left the ED. kb4 Signatures: Dispatcher [employer] EDMS Kyra Rowe, Reg Reg mr Beckie Silva, RN RN db Cassia Gong, PAAbielC PA-C sb4 Shana Stallworth RN RN kb4 Corrections: (The following items were deleted from the chart) 15:26 15:25 GI: Bowel sounds present X 4 quads. Abd is non tender X 4 quads kb4 kb4
[2025-04-12 16:03] VITALS: TEMP 98.3
[2025-04-12 16:10] VITALS: BP 128/95; O2SAT 99
== END 2025-04-12 15:27 | disposition home or self-care (01) ==
LOC: ER 12:24
DX: A08.4 Viral intestinal infection, unspecified (principal)
CPT/HCPCS: 96361; 85025; 36415; 82947; 83690; 80053; 74177; 96374; 99284; Q9967; J2405; J7030 ×2